=== PATIENT | female | born 1940 | race Caucasian/White ===

== ENCOUNTER → 2017-07-11 | Outpatient (CLI) | payer OTHER ==
[~2017-07-11] MED LIST: AMR2 PO; ASCA500 PO; ASPEC325 PO; BTH25 PO; CALCTAB5 PO; CHOL100010 PO; CLC100 PO; CPR500 PO; CRDCD120 PO; CTP1 PO; CYAN10005 PO; CZR50 PO; FLX10 PO; HYD50 PO; LEVO100T84 PO; LSX20 PO; METO100T14 PO; NITR1CAP33 PO; OMEG10007 PO; OSTEO BI FLEX PO; OXYC-57 PO; POLY150C PO; PRLSR20 PO; SIMV40TA2 PO; VTMEUNK PO; [UNRECOGNIZED DRUG - OTHER] PO
--- NOTE | 2017-07-11 17:14 | DIAGNOSTIC IMAGING REPORT ---
MRCP CLINICAL HISTORY: 77 years-old Female presenting with ELEVATED LFT, no abdominal pain or other symptoms. TECHNIQUE: Multisequence, multiplanar MR imaging of the abdomen was performed without the use of intravenous contrast. IV contrast: None. COMPARISON: None. FINDINGS: Localizer images: Posterior lumbar fusion hardware. Lung bases: Lungs and pleural spaces clear. Normal heart size. No pericardial or pleural effusion. Liver: Mildly enlarged, measuring 18.5 cm in maximal sagittal dimension. Mildly nodular contour. No liver lesion. Patent hepatic vasculature. Biliary: No intrahepatic or extrahepatic biliary ductal dilatation. Dedicated MRCP sequences are degraded by motion artifact. This limits evaluation. Gallbladder contains gallstones. Pancreas: Normal. Spleen: Top normal size. Adrenal glands: Normal. Kidneys and ureters: Several T2 hyperintense well-defined parapelvic and parenchymal cysts noted bilaterally. No hydronephrosis. Bowel: Moderate hiatal hernia. No bowel obstruction. Peritoneal cavity: No free fluid. Lymph nodes: No enlarged lymph nodes in the abdomen. Vasculature: Aorta and IVC patent and normal in caliber. Abdominal wall: Normal. Musculoskeletal: Normal. IMPRESSION: 1. Cholelithiasis. No biliary ductal dilatation or evidence of cholecystitis. 2. Mild hepatomegaly. Subtle evidence of nodularity of the liver contour. This raises concern for underlying fibrosis. Dedicated contrast-enhanced liver MR to be considered on a nonurgent basis. 3. Moderate hiatal hernia. Electronically signed by: Soren Watson M.D. 07/11/2017 5:12 PM Dictated Date/Time: 07/11/2017 5:07 PM
== END | disposition home or self-care (01) ==
LOC: C.MRI 15:41
PROVIDERS: ATTEND Registered Nurse
DX: K80.20 Calculus of gallbladder without cholecystitis without obstruction (principal); R74.8 Abnormal levels of other serum enzymes

== ENCOUNTER 2019-11-23 07:47 | Observation (INO) ==
[2019-11-23] MEDS ORDERED: ONDANSETRON INJ 2 MG/ML 2 ML VIAL IV PRN (10:55)
[2019-11-23] MEDS ORDERED: ACETAMINOPHEN 325 MG TAB PO PRN (10:55)
[2019-11-23] MEDS ORDERED: METHOCARBAMOL 500 MG TABLET PO PRN (10:59)
[2019-11-23] MEDS ORDERED: TRAMADOL HCL 50 MG TABLET PO PRN (10:59)
--- NOTE | 2019-11-23 11:05 | History & Physical Report ---
Date of Service November 23, 2019 Assessment & Plan (1) Acute on chronic heart failure with normal ejection fraction: presented with dyspnea on exertion, no hypoxia, no dyspnea at rest unsure if weight is elevated as she does not weigh herself at home admits to chronic lower extremity edema CXR at [place] with pulmonary edema echo with normal EF, left atrium dilated, mild to moderate and elevated pulmonary pressures received Lasix 40mg IV at [place] ED Cr is elevated from baseline at 1.4 will repeat BMP in the morning, hold on further Lasix until renal function is known in the morning consult cardiology, she follows with Dr. Agudelo in the clinic daily weights, I/O, fluid restrict to 1500mL/day note that she normally takes Lasix 20mg daily, used to take 20mg BID but told by Dr. Will that it was too stressful to her kidneys (2) Stage 3b chronic kidney disease: Cr elevated at 1.4 here this afternoon noted that she got Lasix 40mg IV at [place] unsure that this represents MICHAEL, will repeat BMP in the morning she follows with Dr. Will, can consult nephrology if renal function worsens (3) Hypertension: elevated on admission, she admitted that she did not take medications this morning ordered Norvasc and Clonidine to start now will hold Losartan in the morning until BUN/Cr are checked (4) Pulmonary hypertension: PA pressures 50-60mmHg certainly could be causing right heart failure with lower extremity edema already on Norvasc (5) Dyspnea on exertion: due to acute on chronic HF should improve/resolve with diuresis (6) Aortic stenosis: only mild to moderate on echo, doubt that it is contributing to heart failure (7) CAD (coronary artery disease): no chest pain troponin is 0.016 EKG with chronic RBBB and 1st degree AV block (8) RBBB: (9) Chronic hyponatremia: (10) Diabetes mellitus type 2 with complications: diabetic diet, Novolog SS monitor for hypoglycemia (11) First degree AV block: Admission and Anticipated Discharge Date Admission Date: November 23, 2019 History of Present Illness Chief Complaint: I could not walk I was so short of breath Primary Care Provider: Agatha Alfaro DO 79 yo female with history of hypertension, CAD, mild aortic stenosis, chronic heart failure with preserved ejection fraction who went to the ED at [facility] due to two weeks of dyspnea on exertion that was getting worse. She says she has no history of these symptoms. She said that she was having difficulty walking to her car at first, she would have to take a few minutes to catch her breath. She then noticed dyspnea walking from room to room and some dyspnea with activities of daily living. She denies any dyspnea at rest, denies orthopnea or nocturnal dyspnea. She has not had any chest pain. Her legs have some edema chronically, she thinks that maybe they are more swollen. Again, activity made her breathing better and resting made it better. No chest pain or pressure, no palpitations. She follows with Dr. Alfaro as her PCP and Dr. Agudelo for cardiology and she has seen Dr. Will for some CKD stage III. Her Lasix was increased to 20mg twice a day in the early summer but she was then told to cut back to 20mg daily because it may strain her kidney function. She noticed that the evening dose of Lasix never produced much urine. She say she does not follow a fluid restriction at home, in fact, family members tell her she needs to drink more. She does not weigh herself at all at home so unsure if weight has changed. Echo in August 2019 showed EF of 55-60% and mild aortic stenosis. In the ED at [place] she had pulmonary edema on CXR, was given Lasix 40mg IV x 1. She is already making a lot of urine and breathing better. Allergies Allergy/AdvReac Type Severity Reaction Status Date / Time Bactrim Allergy Unknown UNK Verified 08/17/17 06:50 sulfamethoxazole Allergy Unknown UNK Verified 11/21/19 08:19 trimethoprim Allergy Unknown UNK Verified 11/21/19 08:19 lisinopril AdvReac Unknown ELEVATED Verified 11/21/19 08:19 POTASSIUM pregabalin AdvReac Unknown PAIN IN Verified 11/21/19 08:19 ARMS Home Medications Home Medications Medication Instructions Recorded Confirmed Type Azo Cranberry 500 mg PO DAILY 05/29/18 11/21/19 History Calcium 600 + D(3) 1 cap PO DAILY 05/29/18 11/21/19 History [place]-3 Fish Oil 1 cap PO DAILY 05/29/18 11/21/19 History cholecalciferol (vitamin D3) 1,000 unit PO DAILY 05/29/18 11/21/19 History [Vitamin D3] vitamin E 1,000 unit PO DAILY 05/29/18 11/21/19 History cyanocobalamin (vitamin B-12) 1,000 mcg PO DAILY #90 tab 10/21/18 11/21/19 Rx 1,000 mcg tablet magnesium oxide 400 mg PO DAILY #30 tab 10/21/18 11/21/19 Rx tamsulosin 0.4 mg capsule 0.4 mg PO DAILY #90 cap 10/21/18 11/21/19 Rx metronidazole 0.75 % topical cream 1 appln TOP BID #45 gm 11/08/18 11/21/19 Rx triamcinolone acetonide 0.1 % 1 appln TOP BID #30 gm 01/14/19 11/21/19 Rx topical cream imipramine HCl 25 mg tablet 25 mg PO HS #30 tab 05/29/19 11/21/19 Rx clopidogrel 75 mg tablet 75 mg PO DAILY #90 tab 06/17/19 11/21/19 Rx ferrous sulfate 325 mg (65 mg 325 mg PO BID #240 tab 07/01/19 11/21/19 Rx iron) tablet losartan 50 mg tablet 50 mg PO DAILY #90 tab 08/01/19 11/21/19 Rx clonidine HCl 0.3 mg tablet 0.3 mg PO TID #270 tab 08/13/19 11/21/19 Rx amlodipine 10 mg tablet 10 mg PO DAILY #90 tab 08/15/19 11/21/19 Rx lancets 33 gauge #100 ea 09/05/19 11/21/19 Rx atorvastatin 10 mg tablet 10 mg PO HS #90 tab 09/11/19 11/21/19 Rx levothyroxine 112 mcg tablet 112 mcg PO DAILY #90 tab 09/23/19 11/21/19 Rx blood sugar diagnostic #100 ea 10/09/19 11/21/19 Rx glipizide 5 mg tablet 5 mg PO DAILY #90 tab 10/10/19 11/21/19 Rx furosemide 20 mg tablet 20 mg PO BID #60 tab 10/20/19 11/21/19 Rx methocarbamol 500 mg tablet 500 mg PO TID PRN #30 tab 10/20/19 11/21/19 Rx omeprazole 20 mg capsule,delayed 20 mg PO DAILY #90 cap 10/28/19 11/21/19 Rx release gabapentin 100 mg capsule See Rx Instructions .ROUTE 11/03/19 11/21/19 Rx .COMPLEX #210 cap linagliptin 5 mg tablet 5 mg PO DAILY #90 tab 11/14/19 11/21/19 Rx escitalopram oxalate 10 mg tablet 10 mg PO DAILY #30 tab 11/18/19 11/21/19 Rx tramadol 50 mg tablet 50 mg PO BID PRN #60 tab 11/20/19 11/21/19 Rx betamethasone valerate 0.1 % lotion 1 applic TOPICAL TID PRN #60 ml 11/21/19 11/21/19 Rx Past Med/Surg History Medical History Anemia Anxiety Aortic stenosis 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 no deficits. 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 History of bladder suspension procedure History of colonoscopy History of esophagogastroduodenoscopy (EGD) S/P carpal tunnel release bilateral S/P hysterectomy ANDRIA S/P knee replacement bilateral S/P trigger finger release Status post THR (total hip replacement) (12/2012) pt denies Family History Father Hypertension Heart disease Myocardial infarction Alcohol abuse Sister Diabetes Pancreatic cancer Breast cancer Brother Stroke Diabetes Alcohol abuse Other Cancer Denies family history of Ovarian cancer Prostate cancer Colorectal cancer Social History Smoking Status: Former smoker Second Hand Exposure: No; Hx Alcohol Use: No Hx Substance Use: No Preferred Language: Setswana Communication Ability: Effective Visual Impairment: No Limitations Hearing Ability: Normal Adult Remedial Education Instructor Required: No Beliefs That Will Affect Care: None marital status: / Current Living Situation: Alone current occupational status: retired Feels Safe at Home: Yes Safety Concerns: Feels Safe At This Time Childhood Exposure to Second-Hand Smoke: No caffeine: Yes (Coffee x 2 cups per day.) during the past year weight has: remained stable Dental Care, Regularly: No Physical Activity Frequency: Does not Exercise Seatbelt Use: always Sunscreen Use: Yes Review of Systems Review of Systems: All systems reviewed & are unremarkable except as noted in Subjective Physical Exam Constitutional: well developed, well nourished and comfortable; no acute distress Eyes: PERRL, conjunctivae normal, anicteric sclerae ENMT: external ear and nose normal, oropharynx normal Neck: trachea midline, no thyromegaly Respiratory: normal respiratory effort; no respiratory distress, no labored breathing and no cough Auscultation: + rales (bases); no crackles, no rhonchi and no wheezes Cardiovascular: Rate/Rhythm: regular rate and regular rhythm Heart Sounds: normal S1 and normal S2; no murmur Vessels: no JVD Extremities: normal capillary refill and + edema (shins, pitting, bilaterally) Gastrointestinal (Abdomen): normal bowel sounds, soft, nontender, no hepatosplenomegaly Musculoskeletal: no cyanosis or clubbing, extremities motor strength 5/5 Skin: no rashes, warm and dry Neurologic: patellar DTR's 2+ bilat, sensation intact and PERRL, EOMI, accommodation nl, no face palsy, no dysarthria Psychiatric: A+Ox3, euthymic affect Lymphatic: no cervical or axillary lymphadenopathy Results & Data Results & Data ([facility]) Vital Signs (Past 12 Hours) Vital Signs Temp Resp BP Pulse Ox 11/23/19 10:32 36.7 C 18 172/75 H 94 Laboratory Results Laboratory Results - last 24 hr 11/23/19 11/23/19 11/23/19 11:45 14:32 14:32 WBC 5.79 RBC 3.16 L Hgb 9.2 L Hct 28.6 L MCV 90.5 MCH 29.1 MCHC 32.2 RDW Std Deviation 42.6 RDW Coeff of Irasema 12.9 Plt Count 253 MPV 9.1 Sodium 132 L Potassium 4.7 Chloride 98 Carbon Dioxide 27 Anion Gap 7.0 BUN 36 H Creatinine 1.49 H Est Cr Clr Drug Dosing Not Reportable Est GFR ( Amer) 37.8 Est GFR (Non-Af Amer) 32.6 BUN/Creatinine Ratio 23.8 H Glucose 151 H POC Glucose 173 H Calcium 8.7 Troponin I 0.016 11/23/19 11/23/19 16:05 20:28 WBC RBC Hgb Hct MCV MCH MCHC RDW Std Deviation RDW Coeff of Irasema Plt Count MPV Sodium Potassium Chloride Carbon Dioxide Anion Gap BUN Creatinine Est Cr Clr Drug Dosing Est GFR ( Amer) Est GFR (Non-Af Amer) BUN/Creatinine Ratio Glucose POC Glucose 158 H 147 H Calcium Troponin I ECG Indication: SOB/dyspnea Rhythm: normal sinus Findings: + 1st degree AV block and + RBBB Code Status & VTE Plan VTE Prophylaxis Plan VTE Prophylaxis will be ordered: Yes PG Care Time/CCT Total # of Minutes Spent Total Time Spent with Patient: Total time spent is greater than 50% in coordination of care (as documented) at patient's floor/unit and/or counseling patient: Coding Level of Care Code 39211 Initial Inpt Care Lvl 3 Diagnoses Acute on chronic heart failure with normal ejection fraction I50.33 Stage 3b chronic kidney disease N18.3 Hypertension I10 Pulmonary hypertension I27.20 Dyspnea on exertion R06.00 Aortic stenosis I35.0 CAD (coronary artery disease) I25.10 RBBB I45.10 Chronic hyponatremia E87.1 Diabetes mellitus type 2 with complications E11.8 First degree AV block I44.0
[2019-11-23] MEDS: GABAPENTIN 100 MG CAP PO SCH ×2 (12:32→17:52)
[2019-11-23] MEDS ORDERED: AMLODIPINE BESYLATE 5 MG TAB PO ONE (13:24)
[2019-11-23] MEDS ORDERED: CLOPIDOGREL BISULFATE 75 MG TAB PO ONE (13:24)
[2019-11-23] MEDS ORDERED: Nursing to Pharmacy Communication SCH (13:45)
[2019-11-23] MEDS: cloNIDine HCL 0.3 MG TAB PO SCH ×2 (13:53→20:42)
[2019-11-23] MEDS: HEPARIN SOD 5,000 UNIT/0.5 ML VIAL SQ SCH ×2 (13:54→20:43)
[2019-11-23 14:50] LABS: Hematocrit (blood only) 28.6 % (37-47); Hemoglobin 9.2 g/dL (12.0-16.0); Mean Corpuscular Hemoglobin 29.1 pg (25-34); Mean Corpuscular Hgb Conc 32.2 g/dL (32-36); Mean Corpuscular Volume 90.5 fL (80-100); Mean Platelet Volume 9.1 fL (7.4-10.4); Platelet Count 253 K/uL (130-400); RDW Coefficient of Variation 12.9 % (11.5-14.5); RDW Standard Deviation 42.6 fL (36.4-46.3); Red Blood Count 3.16 M/uL (4.2-5.4); White Blood Count 5.79 K/uL (4.8-10.8)
[2019-11-23 15:16] LABS: BUN Creatinine Ratio 23.8 (10-20); Blood Urea Nitrogen 36 mg/dl (7-18); Calcium 8.7 mg/dl (8.5-10.1); Carbon Dioxide 27 mmol/L (21-32); Chloride 98 mmol/L (98-107); Est GFR (African American) 37.8; Est GFR (Non-African American) 32.6; Glucose 151 mg/dl (70-99); Potassium 4.7 mmol/L (3.5-5.1); Sodium 132 mmol/L (136-145)
[2019-11-23 15:20] LABS: Troponin I 0.016 ng/ml (0-0.045)
[2019-11-23] MEDS: INSULIN ASPART 100 UNITS/ML 3 ML PEN SC SCH ×2 (16:50→20:43)
--- NOTE | 2019-11-23 20:00 | XCELERA ---
[id number]
--- NOTE | 2019-11-23 20:01 | Electrocardiogram Report ---
Test Reason : Blood Pressure : / mmHG Vent. Rate : 087 BPM Atrial Rate : 087 BPM P-R Int : 286 ms QRS Dur : 124 ms QT Int : 402 ms P-R-T Axes : 050 -10 014 degrees QTc Int : 483 ms Sinus rhythm with 1st degree A-V block Right bundle branch block Abnormal ECG When compared with ECG of 29-MAY-2018 12:01, Sinus rhythm is no longer with 2nd degree A-V block (Mobitz I) Vent. rate has increased BY [address] now depressed in Anterior leads T wave inversion now evident in Anterior leads QT has lengthened Confirmed by Ronald Moura ([id number]) on 11/23/2019 8:01:05 PM Referred By: Isacc Perez Confirmed By:Chris Moura
[2019-11-23] MEDS ORDERED: GABAPENTIN 100 MG CAP PO SCH (21:00)
[2019-11-23] MEDS ORDERED: ATORVASTATIN 10 MG TAB PO SCH (21:00)
[2019-11-23] MEDS ORDERED: IMIPRAMINE HCL 25 MG TAB PO SCH (21:00)
[2019-11-24 06:09] LABS: Hematocrit (blood only) 23.2 % (37-47); Hemoglobin 7.7 g/dL (12.0-16.0); Mean Corpuscular Hgb Conc 33.2 g/dL (32-36); Mean Corpuscular Volume 90.3 fL (80-100); Mean Platelet Volume 9.2 fL (7.4-10.4); Platelet Count 167 K/uL (130-400); RDW Standard Deviation 42.8 fL (36.4-46.3); Red Blood Count 2.57 M/uL (4.2-5.4); White Blood Count 3.21 K/uL (4.8-10.8)
[2019-11-24] MEDS: HEPARIN SOD 5,000 UNIT/0.5 ML VIAL SQ SCH ×2 (06:10→13:17)
[2019-11-24] MEDS ORDERED: LEVOTHYROXINE SODIUM 112 MCG TABLET PO SCH (06:30)
[2019-11-24 06:41] LABS: Blood Urea Nitrogen 37 mg/dl (7-18); Calcium 8.1 mg/dl (8.5-10.1); Carbon Dioxide 25 mmol/L (21-32); Chloride 101 mmol/L (98-107); Est GFR (African American) 41.5; Est GFR (Non-African American) 35.8; Glucose 126 mg/dl (70-99); Potassium 4.4 mmol/L (3.5-5.1); Sodium 134 mmol/L (136-145)
[2019-11-24] MEDS: INSULIN ASPART 100 UNITS/ML 3 ML PEN SC SCH ×3 (08:39→16:52)
[2019-11-24] MEDS: GABAPENTIN 100 MG CAP PO SCH ×2 (08:41→13:17)
[2019-11-24] MEDS: cloNIDine HCL 0.3 MG TAB PO SCH ×2 (08:42→13:17)
[2019-11-24] MEDS ORDERED: LOSARTAN POTASSIUM 50 MG TAB PO SCH (09:00)
[2019-11-24] MEDS ORDERED: ESCITALOPRAM OXALATE 10 MG TAB PO SCH (09:00)
[2019-11-24] MEDS ORDERED: AMLODIPINE BESYLATE 5 MG TAB PO SCH (09:00)
[2019-11-24] MEDS ORDERED: TAMSULOSIN HCL 0.4 MG CAP PO SCH (09:00)
[2019-11-24] MEDS ORDERED: CLOPIDOGREL BISULFATE 75 MG TAB PO SCH (09:00)
--- NOTE | 2019-11-24 09:36 | Hospitalist Progress Note ---
Date of Service November 24, 2019 Assessment & Plan (1) Acute on chronic heart failure with normal ejection fraction: presented with dyspnea on exertion, no hypoxia, no dyspnea at rest unsure if weight is elevated as she does not weigh herself at home admits to chronic lower extremity edema CXR at [place] with pulmonary edema echo with normal EF, left atrium dilated, mild to moderate and elevated pulmonary pressures received Lasix 40mg IV at [place] ED consult cardiology, she follows with Dr. Agudelo in the clinic note that she normally takes Lasix 20mg daily, used to take 20mg BID but told by Dr. Will that it was too stressful to her kidneys (2) Stage 3b chronic kidney disease: Cr elevated at 1.4 here this afternoon noted that she got Lasix 40mg IV at [place] (3) Hypertension: elevated on admission, she admitted that she did not take medications this morning Norvasc and Clonidine hold Losartan (4) Pulmonary hypertension: PA pressures 50-60mmHg certainly could be causing right heart failure with lower extremity edema already on Norvasc (5) Dyspnea on exertion: due to acute on chronic HF should improve/resolve with diuresis (6) Aortic stenosis: only mild to moderate on echo (7) CAD (coronary artery disease): no chest pain troponin is 0.016 EKG with chronic RBBB and 1st degree AV block (8) RBBB: (9) Chronic hyponatremia: (10) Diabetes mellitus type 2 with complications: diabetic diet, Novolog SS monitor for hypoglycemia (11) First degree AV block: Admission and Anticipated Discharge Date Admission Date: November 23, 2019 Results & Data Results & Data ([facility]) Vital Signs (Past 12 Hours) Vital Signs Temp Pulse Pulse Resp BP Pulse Ox 11/24/19 07:54 65 11/24/19 07:38 97.7 F 61 18 156/73 H 96 11/24/19 05:04 56 L 11/24/19 03:36 97.7 F 56 L 18 144/66 H 98 11/24/19 00:06 97.9 F 60 18 146/67 H 96 PG Care Time/CCT Total # of Minutes Spent Total Time Spent with Patient: Total time spent is greater than 50% in coordination of care (as documented) at patient's floor/unit and/or counseling patient: Coding Diagnoses Acute on chronic heart failure with normal ejection fraction I50.33 Stage 3b chronic kidney disease N18.3 Hypertension I10 Pulmonary hypertension I27.20 Dyspnea on exertion R06.00 Aortic stenosis I35.0 CAD (coronary artery disease) I25.10 RBBB I45.10 Chronic hyponatremia E87.1 Diabetes mellitus type 2 with complications E11.8 First degree AV block I44.0
[2019-11-24] MEDS ORDERED: MICONAZOLE NITRATE POWDER 43 GM EXT PRN (10:00)
[2019-11-24] MEDS ORDERED: PANTOprazole 40 MG TAB PO SCH (10:00)
--- NOTE | 2019-11-24 10:22 | Cardiology Consultation ---
Date of Consultation November 24, 2019 Assessment & Plan (1) Dyspnea on exertion: I suspect her dyspnea on exertion is multifactorial. It is consistent with some degree of fluid overload, in part related to chronic kidney disease and probably leading to increased pulmonary pressures with a contribution of mitral stenosis and anemia. She does not have left-ventricular hypertrophy and she has a hyperdynamic left ventricle so I suspect aortic stenosis is not an issue. I suspect diastolic dysfunction is not a major problem either. I would agree with diuresis, we are going to run into issues of decreased cardiac output and likely worsening kidney function and it will therefore be a c ompromise with her renal function and her volume status. I do not know that she would derive a lot of benefit from valve replacement, and if the mitral valve is the primary problem (as opposed aortic stenosis) then this is a major operation. I would see how she does clinically to see if we can compromise between renal insufficiency and symptoms. (2) CAD (coronary artery disease): She has coronary disease but no evidence of ischemia based on enzymes and electrocardiography. I would not pursue further. (3) Aortic stenosis: She has some degree of aortic stenosis however it is not significant enough that it has affected cardiac function (either left ventricular hypertrophy or left ventricular function) therefore I doubt it is a significant cause of her symptoms. (4) Mitral stenosis and incompetence: She does have mitral stenosis and mitral regurgitation, her mean mitral valve gradient is 9 mmHg and her peak mitral gradient is 27 mmHg. This will certainly contribute to pulmonary hypertension and likely is contributory to her symptoms of dyspnea on exertion. (5) Pulmonary hypertension: She has significant pulmonary hypertension, measured as 50 to 60 mmHg. This is in part due to fluid retention, however her mitral stenosis as well as her mitral regurgitation are probably contributory. (6) CKD (chronic kidney disease): She has longstanding kidney disease, I suspect made worse by valvular heart disease. (7) Anemia: She has significant anemia, enouph that it can be contributory to her presentation. Her Hgb has dropped substantially since yesterday, unless it is in error. History of Present Illness Reason for Consultation: Dyspnea on exertion, mitral and aortic valvular heart disease Attending Physician: Chris West MD History of Present Illness This is an 79-year-old woman who has a history of hypertension, hypercholesterolemia, diabetes mellitus as well as coronary artery disease identified at catheterization in 2008. At that time she had nonobstructive disease. More recently she had a Lexiscan stress test in April 2017 which was negative for ischemia. She also has a history of a lacunar CVA in 2019, she also has a history of mild aortic stenosis and Mobitz 1 second-degree AV block. She presents now with progressive dyspnea on exertion. Repeat echocardiography done on November 23, 2019 shows mild to moderate aortic stenosis with a maximum aortic gradient of 32 mmHg. Left ventricular function was normal at 65 to 70%, there was normal wall thickness and left ventricle was normal in size. She also had mild mitral regurgitation and moderate mitral stenosis. The mean mitral valve gradient was 9 mmHg with a maximum 27 mmHg. Troponins were negative, the electrocardiogram did not show any acute changes. She is quite anemic with a falling hemoglobin, 7.7 today. Kidney function has been abnormal in the past with a creatinine of up to 1.5 in March of this year, her creatinine was just over 1 on October 01, 2019 and November 04, 2019 however is elevated this admission as well to 1.38 today. Since presentation she has been diuresed, she feels much better today and notes that her leg swelling is improved. No cardiac symptoms today. Allergies Allergy/AdvReac Type Severity Reaction Status Date / Time Bactrim Allergy Unknown UNK Verified 08/17/17 06:50 sulfamethoxazole Allergy Unknown UNK Verified 11/21/19 08:19 trimethoprim Allergy Unknown UNK Verified 11/21/19 08:19 lisinopril AdvReac Unknown ELEVATED Verified 11/21/19 08:19 POTASSIUM pregabalin AdvReac Unknown PAIN IN Verified 11/21/19 08:19 ARMS Home Medications Home Medications Medication Instructions Recorded Confirmed Type Azo Cranberry 500 mg PO DAILY 05/29/18 11/21/19 History Calcium 600 + D(3) 1 cap PO DAILY 05/29/18 11/21/19 History [place]-3 Fish Oil 1 cap PO DAILY 05/29/18 11/21/19 History cholecalciferol (vitamin D3) 1,000 unit PO DAILY 05/29/18 11/21/19 History [Vitamin D3] vitamin E 1,000 unit PO DAILY 05/29/18 11/21/19 History cyanocobalamin (vitamin B-12) 1,000 mcg PO DAILY #90 tab 10/21/18 11/21/19 Rx 1,000 mcg tablet magnesium oxide 400 mg PO DAILY #30 tab 10/21/18 11/21/19 Rx tamsulosin 0.4 mg capsule 0.4 mg PO DAILY #90 cap 10/21/18 11/21/19 Rx metronidazole 0.75 % topical cream 1 appln TOP BID #45 gm 11/08/18 11/21/19 Rx triamcinolone acetonide 0.1 % 1 appln TOP BID #30 gm 01/14/19 11/21/19 Rx topical cream imipramine HCl 25 mg tablet 25 mg PO HS #30 tab 05/29/19 11/21/19 Rx clopidogrel 75 mg tablet 75 mg PO DAILY #90 tab 06/17/19 11/21/19 Rx ferrous sulfate 325 mg (65 mg 325 mg PO BID #240 tab 07/01/19 11/21/19 Rx iron) tablet losartan 50 mg tablet 50 mg PO DAILY #90 tab 08/01/19 11/21/19 Rx clonidine HCl 0.3 mg tablet 0.3 mg PO TID #270 tab 08/13/19 11/21/19 Rx amlodipine 10 mg tablet 10 mg PO DAILY #90 tab 08/15/19 11/21/19 Rx lancets 33 gauge #100 ea 09/05/19 11/21/19 Rx atorvastatin 10 mg tablet 10 mg PO HS #90 tab 09/11/19 11/21/19 Rx levothyroxine 112 mcg tablet 112 mcg PO DAILY #90 tab 09/23/19 11/21/19 Rx blood sugar diagnostic #100 ea 10/09/19 11/21/19 Rx glipizide 5 mg tablet 5 mg PO DAILY #90 tab 10/10/19 11/21/19 Rx furosemide 20 mg tablet 20 mg PO BID #60 tab 10/20/19 11/21/19 Rx methocarbamol 500 mg tablet 500 mg PO TID PRN #30 tab 10/20/19 11/21/19 Rx omeprazole 20 mg capsule,delayed 20 mg PO DAILY #90 cap 10/28/19 11/21/19 Rx release gabapentin 100 mg capsule See Rx Instructions .ROUTE 11/03/19 11/21/19 Rx .COMPLEX #210 cap linagliptin 5 mg tablet 5 mg PO DAILY #90 tab 11/14/19 11/21/19 Rx escitalopram oxalate 10 mg tablet 10 mg PO DAILY #30 tab 11/18/19 11/21/19 Rx tramadol 50 mg tablet 50 mg PO BID PRN #60 tab 11/20/19 11/21/19 Rx betamethasone valerate 0.1 % lotion 1 applic TOPICAL TID PRN #60 ml 11/21/19 11/21/19 Rx Patient History Medical History Anemia Anxiety Aortic stenosis 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 no deficits. 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 History of bladder suspension procedure History of colonoscopy History of esophagogastroduodenoscopy (EGD) S/P carpal tunnel release bilateral S/P hysterectomy ANDRIA S/P knee replacement bilateral S/P trigger finger release Status post THR (total hip replacement) (12/2012) pt denies Family History Father Hypertension Heart disease Myocardial infarction Alcohol abuse Sister Diabetes Pancreatic cancer Breast cancer Brother Stroke Diabetes Alcohol abuse Other Cancer Denies family history of Ovarian cancer Prostate cancer Colorectal cancer Social History Smoking Status: Former smoker Second Hand Exposure: No; Hx Alcohol Use: No Hx Substance Use: No Preferred Language: Estonian Communication Ability: Effective Visual Impairment: No Limitations Hearing Ability: Normal Coding Compliance Auditor Required: No Beliefs That Will Affect Care: None marital status: / Current Living Situation: Alone current occupational status: retired Feels Safe at Home: Yes Safety Concerns: Feels Safe At This Time Childhood Exposure to Second-Hand Smoke: No caffeine: Yes (Coffee x 2 cups per day.) during the past year weight has: remained stable Dental Care, Regularly: No Physical Activity Frequency: Does not Exercise Seatbelt Use: always Sunscreen Use: Yes Assistive Devices: Denture - Upper, Denture - Lower, Glasses and Walker Review of Systems Review of Systems: All systems reviewed & are unremarkable except as noted in HPI & below Results & Data ([facility]) Vital Signs (Past 12 Hours) Vital Signs Temp Pulse Pulse Resp BP Pulse Ox 11/24/19 07:54 65 11/24/19 07:38 36.5 C 61 18 156/73 H 96 11/24/19 05:04 56 L 11/24/19 03:36 36.5 C 56 L 18 144/66 H 98 11/24/19 00:06 36.6 C 60 18 146/67 H 96 Laboratory Results Cardiac Enzymes 11/23/19 Range/Units 14:32 Troponin I 0.016 (0-0.045) ng/ml CBC 11/23/19 11/24/19 Range/Units 14:32 05:25 WBC 5.79 3.21 L (4.8-10.8) K/uL RBC 3.16 L 2.57 L (4.2-5.4) M/uL Hgb 9.2 L 7.7 L (12.0-16.0) g/dL Hct 28.6 L 23.2 L (37-47) % Plt Count 253 167 (130-400) K/uL Comprehensive Metabolic Panel 11/23/19 11/24/19 Range/Units 14:32 05:25 Sodium 132 L 134 L (136-145) mmol/L Potassium 4.7 4.4 (3.5-5.1) mmol/L Chloride 98 101 (98-107) mmol/L Carbon Dioxide 27 25 (21-32) mmol/L BUN 36 H 37 H (7-18) mg/dl Creatinine 1.49 H 1.38 H (0.6-1.2) mg/dl Glucose 151 H 126 H (70-99) mg/dl Calcium 8.7 8.1 L (8.5-10.1) mg/dl Intake and Output 11/23/19 11/24/19 11/24/19 22:59 06:59 14:59 Intake Total 600 / 1475 600 / 1475 Output Total 700 / 3300 1000 / 3300 400 / 400 Balance -100 / -1825 -400 / -1825 -400 / -400 Intake: Oral 600 / 1475 600 / 1475 Output: Urine 700 / 3300 1000 / 3300 400 / 400 Other: Weight 84 kg Diagnostic Findings An electrocardiogram done November 23, 2019 shows sinus rhythm with first- degree AV block (VT interval 286 ms) and right bundle branch block with a normal QRS axis Telemetry: SR and sinus tachycardia, first degree AV block, PVCs and rare blocked PACs PG Care Time/CCT Total # of Minutes Spent Total Time Spent with Patient: Total time spent is greater than 50% in coordination of care (as documented) at patient's floor/unit and/or counseling patient: Coding Level of Care Code 89314 Initial Inpt Care Lvl 3 Diagnoses Dyspnea on exertion R06.00 CAD (coronary artery disease) I25.10 Aortic stenosis I35.0 Mitral stenosis and incompetence I05.2 Pulmonary hypertension I27.20 CKD (chronic kidney disease) N18.9 Anemia D64.9
[2019-11-24] MEDS ORDERED: SODIUM CHLORIDE 0.9% 250 ML IV PRN (11:42)
[2019-11-24] MEDS ORDERED: FUROSEMIDE 20 MG in SYRINGE 0 ML IV ONE (12:00)
--- NOTE | 2019-11-24 17:07 | Discharge Summary ---
Date of Service November 24, 2019 Admission HPI Per Admitting Provider 79 yo female with history of hypertension, CAD, mild aortic stenosis, chronic heart failure with preserved ejection fraction who went to the ED at [facility] due to two weeks of dyspnea on exertion that was getting worse. She says she has no history of these symptoms. She said that she was having difficulty walking to her car at first, she would have to take a few minutes to catch her breath. She then noticed dyspnea walking from room to room and some dyspnea with activities of daily living. She denies any dyspnea at rest, denies orthopnea or nocturnal dyspnea. She has not had any chest pain. Her legs have some edema chronically, she thinks that maybe they are more swollen. Again, activity made her breathing better and resting made it better. No chest pain or pressure, no palpitations. She follows with Dr. Alfaro as her PCP and Dr. Agudelo for cardiology and she has seen Dr. Will for some CKD stage III. Her Lasix was increased to 20mg twice a day in the early summer but she was then told to cut back to 20mg daily because it may strain her kidney function. She noticed that the evening dose of Lasix never produced much urine. She say she does not follow a fluid restriction at home, in fact, family members tell her she needs to drink more. She does not weigh herself at all at home so unsure if weight has changed. Echo in August 2019 showed EF of 55-60% and mild aortic stenosis. In the ED at [place] she had pulmonary edema on CXR, was given Lasix 40mg IV x 1. She is already making a lot of urine and breathing better. Principal Diagnosis Shortness of breath secondary pulmonary pretension Anemia possibly anemia of chronic disease Discharge Exam The patient appeared well Vital signs as documented. Lungs are clear to auscultation and appear unlabored her lungs were listened to after transfusion continue to be negative for changes Cardiac exam, Rhythm is regular.. Systolic ejection murmur is heard Abdominal exam reveals normal bowel sounds, soft non tender, no masses Extremities are mildly edematous and both pedal pulses are normal. Neurologic exam is alert and oriented, no focal loss of strength or sensation Skin is without bruises or rashes Psychologically is without concerns for anxiety or depression. Discharge Data Allergies Allergy/AdvReac Type Severity Reaction Status Date / Time Bactrim Allergy Unknown UNK Verified 08/17/17 06:50 sulfamethoxazole Allergy Unknown UNK Verified 11/21/19 08:19 trimethoprim Allergy Unknown UNK Verified 11/21/19 08:19 lisinopril AdvReac Unknown ELEVATED Verified 11/21/19 08:19 POTASSIUM pregabalin AdvReac Unknown PAIN IN Verified 11/21/19 08:19 ARMS Consultations 11/23/19 10:57 Consult Case Management - Discharge Planning Routine 11/23/19 22:23 Consult Cardiology Routine Hospital Course (1) Acute on chronic heart failure with normal ejection fraction: presented with dyspnea on exertion, no hypoxia, no dyspnea at rest echo with normal EF, left atrium dilated, mild to moderate and elevated pulmonary pressures consistent with pulmonary hypertension consult cardiology, she follows with Dr. Agudelo in the clinic feel diuretics should be utilized for pulmonary hypertension does not feel her valvular heart disease is a significant role in her symptoms Will be discharged on Lasix 40 mg a day holding losartan enrolling her in outpatient heart failure surveillance with [facility], I personally called [facility] to enroll her in this program (2) Stage 3b chronic kidney disease: Will need outpatient surveillance given the fact that she will be on daily Lasix however holding ARB at this time as her ejection fraction is preserved (3) Hypertension: Norvasc and Clonidine hold Losartan (4) Pulmonary hypertension: PA pressures 50-60mmHg certainly could be causing right heart failure with lower extremity edema adding daily diuretics (5) Dyspnea on exertion: due to acute on chronic diastolic HF Manage his volume status surveillance (6) Aortic stenosis: only mild to moderate on echo, cardiology does not feel plays a significant role in her symptoms (7) CAD (coronary artery disease): no chest pain troponin is 0.016 EKG with chronic RBBB and 1st degree AV block (8) RBBB: (9) Chronic hyponatremia: (10) Diabetes mellitus type 2 with complications: diabetic diet, Novolog SS monitor for hypoglycemia, did hold losartan at time of discharge may benefit from re-adding this medication but will need to see how her renal function response to diuretics at this point time (11) First degree AV block: Total Time Total Time Spent Total Time Spent (In Minutes): It required greater than 30 minutes to prepare this patient for discharge Discharge Plan Discharge Items Patient Disposition: Home - Home Health Services Reason For Visit: ACUTE HEART FAILURE Discharge Diagnosis: pulmonary hypertension shortness of breath Activity: Per Instructions section Activity Comment: slowly increase activity Non-emergency contact: Primary Care Provider and Supervisor [employer] Call non-emergency contact if: your symptoms worsen Follow-up/Referrals: Agatha Alfaro DO [Primary Care Provider] - Diet: Low Sodium (2gm) Addtl Attending Provider Instructions: Call 911 and go to the Emergency Room if: * You have tightness or pain in your chest that does not go away with rest or Nitroglycerin * You are very short of breath even with rest Call your doctor if any of the following symptoms or problems start or get worse: * Shortness of breath or difficulty breathing * Wake up at night short of breath * Chest pain * Cough * Swelling of your hands, fee, or legs * More fatigued or tired with your normal activity * Palpitations - sudden fast heart beats WEIGHT * Weigh yourself every morning after using the bathroom. * Use the same scale. * Wear the same amount of clothing. * Write your weight down on your chart. * Call your doctor if you gain more than 2-3 pounds in 1-2 days. MEDICATIONS * Use this discharge instruction sheet for instructions. * Take your medications at the time your doctor ordered. * Do not skip a dose of your medicines. * If you miss a dose of medicine, take as soon as possible, but DO NOT DOUBLE A DOSE. * Read your medicine information when you get home. * Know all of the side effects of your medicine. * Call your doctor's office if you have any side effects. * Be sure all of your doctors know what medicine and herbs you take (including cold, flu, and herbal medicine). * Pain Medicine: If you do not get relief from your pain, please call your doctor for help. Take the following with you to your follow-up doctor appointments: * Weight Chart * Medication List * List of questions Do not drink excessive alcohol, beer or wine. Pending Studies at Discharge: No Stand-Alone Forms: My dELiAs, Smoking Cessation Medications and DC Order Prescriptions: Continued triamcinolone acetonide 0.1 % cream 1 appln TOP BID Qty: 30 RF: 1 imipramine HCl 25 mg tablet 25 mg PO HS Qty: 30 RF: 2 clopidogrel 75 mg tablet 75 mg PO DAILY Qty: 90 RF: 1 ferrous sulfate 325 mg (65 mg iron) tablet 325 mg PO BID Qty: 240 RF: 1 amlodipine 10 mg tablet 10 mg PO DAILY Qty: 90 RF: 1 (DME) lancets [OneTouch Delica Lancets] 33 gauge misc See Dose Instructions .ROUTE .MEDSUPPLY Qty: 100 RF: 3 atorvastatin 10 mg tablet 10 mg PO HS Qty: 90 RF: 1 levothyroxine 112 mcg tablet 112 mcg PO DAILY Qty: 90 RF: 1 (DME) blood sugar diagnostic [Blood Glucose Test] Strip See Rx Instructions .ROUTE .MEDSUPPLY Qty: 100 RF: 5 methocarbamol 500 mg tablet 500 mg PO TID PRN (Reason: muscle spasm) Qty: 30 RF: 1 omeprazole 20 mg capsule,delayed release(DR/EC) 20 mg PO DAILY Qty: 90 RF: 3 gabapentin 100 mg capsule See Rx Instructions .ROUTE .COMPLEX Qty: 210 RF: 3 Tradjenta 5 mg tablet 5 mg PO DAILY Qty: 90 RF: 1 escitalopram oxalate [Lexapro] 10 mg tablet 10 mg PO DAILY Qty: 30 RF: 2 tramadol 50 mg tablet 50 mg PO BID PRN (Reason: pain) Qty: 60 RF: 0 magnesium oxide 400 mg magnesium tablet 400 mg PO DAILY Qty: 30 RF: 0 cyanocobalamin (vitamin B-12) [Vitamin B-12] 1,000 mcg tablet 1,000 mcg PO DAILY Qty: 90 RF: 0 tamsulosin [Flomax] 0.4 mg capsule 0.4 mg PO DAILY Qty: 90 RF: 0 metronidazole 0.75 % cream 1 appln TOP BID Qty: 45 RF: 0 betamethasone valerate 0.1 % lotion 1 applic topical TID PRN (Reason: skin irritation) Qty: 60 RF: 0 glipizide 5 mg tablet 5 mg PO DAILY Qty: 90 RF: 1 clonidine HCl 0.3 mg tablet 0.3 mg PO TID Qty: 270 RF: 1 vitamin E 1,000 unit Capsule 1,000 unit PO DAILY RF: 0 cholecalciferol (vitamin D3) [Vitamin D3] 1,000 unit Capsule 1,000 unit PO DAILY RF: 0 Calcium 600 + D(3) 600 mg calcium- 200 unit Capsule 1 cap PO DAILY RF: 0 [place]-3 Fish Oil 300-1,000 mg Capsule 1 cap PO DAILY RF: 0 Azo Cranberry 250 mg Tablet,Chewable 500 mg PO DAILY RF: 0 Changed furosemide 20 mg tablet 40 mg PO DAILY Qty: 60 RF: 5 Discontinued losartan 50 mg tablet 50 mg PO DAILY Qty: 90 RF: 1 Krames/Other Patient Handouts: Heart Failure Signs of Flare-Up, Heart Failure: Tracking Your Weight Admission Data Admit Date/Time: 11/23/19 10:28 Attending Provider: Chris West Admit Provider: Isacc Perez Primary Care Provider: Agatha Alfaro Other Providers: Andres Agudelo Other Interventions: Discharge Summary Assessment (RN) Last Done: 11/24/19 16:16 Coding Level of Care Code D/C Day Management >30 mins Diagnoses Acute on chronic heart failure with normal ejection fraction I50.33 Stage 3b chronic kidney disease N18.3 Hypertension I10 Pulmonary hypertension I27.20 Dyspnea on exertion R06.00 Aortic stenosis I35.0 CAD (coronary artery disease) I25.10 RBBB I45.10 Chronic hyponatremia E87.1 Diabetes mellitus type 2 with complications E11.8 First degree AV block I44.0
--- NOTE | 2019-11-25 08:23 | Communication Note ---
Date of Service: November 25, 2019 By CMS guidelines, a determination that the admission or continued stay is not medically necessary has been made by a member of the UR committee and a physician for this hospital stay, therefore a Code 44 will be completed and the Inpatient admission will be changed to outpatient. Davian Renteria MD
== END 2019-11-24 18:45 | disposition home or self-care (01) ==
LOC: 2S 10:28 → INTOOBSV 10:28 → SUATTDRO 10:28

== ENCOUNTER 2021-08-03 19:39 | Inpatient (IN) ==
--- NOTE | 2021-08-03 20:53 | CT Scan Report ---
HEAD CT NONCONTRAST CT DOSE: 810.83 mGy.cm HISTORY: weakness TECHNIQUE: Multiaxial CT images of the head were performed without the use of intravenous contrast. A utomated exposure control was utilized for this study. A dose lowering technique was utilized adheri ng to the principles of ALARA. Comparison: Head CT 11/12/2020. Findings: The paranasal sinuses and mastoid air cells are clear. The calvarium and skull base are int act. There is no mass, hematoma, midline shift, acute infarct. White matter hypodensity is nonspecifi c but suggestive of microvascular ischemic change. The ventricles and sulci demonstrate mild age-rela thad involutional changes. Old punctate lacunar infarcts seen within the left basal ganglia and right cerebellar hemisphere. Impression: No significant change compared to the prior study. No acute intracranial abnormality. ACT 112: Negative or not required by law. Electronically signed by: Rohit Jim M.D. 08/03/2021 8:51 PM
--- NOTE | 2021-08-03 21:06 | Emergency Department Note ---
History of Present Illness General Chief complaint: Weakness Stated complaint: INCREASING WEAKNESS, LETHARGIC Time Seen by Provider: 08/03/21 20:07 History of Present Illness Provider complaint: Weakness exertional dyspnea Onset (ago): week(s) 1 Associated symptoms: + shortness of breath and + weakness 81-year-old female presents emergency department with daughter for weakness and shortness of breath. Daughter reports that the patient has been having exertional shortness of breath the last week. Patient reports she feels very weak. She denies any chest pain headache abdominal pain nausea vomiting diarrhea melena hematochezia no hematuria or dysuria. No fevers or chills. No recent falls. Home Medications Medication Instructions Recorded Confirmed Type calcium carbonate 600 mg-vitamin 1 cap PO QAM 05/29/18 08/03/21 History D3 5 mcg (200 unit) capsule (Calcium 600 + D(3)) cholecalciferol (vitamin D3) 25 1,000 unit PO QAM 05/29/18 08/03/21 History mcg (1,000 unit) capsule (Vitamin D3) cranberry fruit concentrate 250 mg 500 mg PO QAM 05/29/18 08/03/21 History chewable tablet (Azo Cranberry) omega-3s 300 [id number] 1 cap PO QAM 05/29/18 08/03/21 History [id number] oil 1,000 mg capsule (Thayer-3 Fish Oil) vitamin E 1,000 unit capsule 1,000 unit PO QAM 05/29/18 08/03/21 History lancets 33 gauge (OneTouch Delica See Rx Instructions .ROUTE 03/21/20 08/03/21 Rx Plus Lancet) .COMPLEX #100 ea blood sugar diagnostic (Blood #100 ea 10/12/20 08/03/21 Rx Glucose Test) acetaminophen 500 mg tablet 500 mg PO Q6H PRN 11/12/20 08/03/21 History (Tylenol Extra Strength) ascorbic acid (vitamin C) 500 mg 1,000 mg PO QAM 11/12/20 08/03/21 History tablet (Vitamin C) cyanocobalamin (vitamin B-12) 1,000 mcg PO QAM 11/12/20 08/03/21 History 1,000 mcg tablet (Vitamin B-12) docusate sodium 100 mg capsule 100 mg PO QAM 11/12/20 08/03/21 History (Colace) nitrofurantoin 100 cap PO QAM 11/12/20 08/03/21 History monohydrate/macrocrystals 100 mg capsule (Macrobid) tamsulosin 0.4 mg capsule (Flomax) 0.4 mg PO QAM 11/12/20 08/03/21 History magnesium oxide 500 mg PO QAM tab 11/22/20 08/03/21 History losartan 100 mg tablet (Cozaar) 100 mg PO QAM #90 tab 12/20/20 08/03/21 Rx glipizide 5 mg tablet 5 mg PO QAM #90 tab 02/24/21 08/03/21 Rx methocarbamol 500 mg tablet 500 mg PO TID PRN #90 tab 02/28/21 08/03/21 Rx furosemide 40 mg tablet (Lasix) 40 mg PO BID #180 tab 03/28/21 08/03/21 Rx levothyroxine 112 mcg tablet 112 mcg PO DAILYBB #90 tab 03/31/21 08/03/21 Rx (Synthroid) bethanechol chloride 50 mg tablet 50 mg PO BID #180 tab 04/19/21 08/03/21 Rx ferrous sulfate 325 mg (65 mg 325 mg PO BID #60 tab 04/21/21 08/03/21 Rx iron) tablet atorvastatin 10 mg tablet (Lipitor) 10 mg PO HS #90 tab 04/25/21 08/03/21 Rx linagliptin 5 mg tablet (Tradjenta) 5 mg PO QAM #90 tab 05/23/21 08/03/21 Rx ropinirole 0.5 mg tablet See Rx Instructions PO .COMPLEX 05/23/21 08/03/21 Rx #360 tab omeprazole 20 mg capsule,delayed 20 mg PO QAM #90 cap 06/22/21 08/03/21 Rx release triamcinolone acetonide 0.5 % 1 applic TOPICAL BID PRN #60 g 06/24/21 08/03/21 Rx topical cream amlodipine 10 mg tablet (Norvasc) 10 mg PO QAM #90 tab 07/08/21 08/03/21 Rx clopidogrel 75 mg tablet (Plavix) 75 mg PO QAM #90 tab 07/11/21 08/03/21 Rx doxazosin 4 mg tablet 4 mg PO DAILY 07/13/21 08/03/21 History tramadol 50 mg tablet (Ultram) 50 mg PO BID PRN #60 tab 07/14/21 08/03/21 Rx sertraline 25 mg tablet 25 mg PO DAILY #30 tab 07/27/21 08/03/21 Rx Allergies Allergy/AdvReac Type Severity Reaction Status Date / Time sulfamethoxazole AdvReac Unknown Verified 08/03/21 20:55 [From Bactrim] trimethoprim [From Bactrim] AdvReac Unknown Verified 08/03/21 20:55 Past Med/Surg History Medical History Anemia of chronic disease Anxiety Aortic stenosis CAD (coronary artery disease) Chronic back pain Chronic diastolic heart failure Chronic hyponatremia Chronic kidney disease, stage 3a Diabetes mellitus, type 2 Diabetic retinopathy Essential tremor MINOR IN HAND Fatty liver First degree AV block GERD without esophagitis Hearing deficit Hiatal hernia History of CVA (cerebrovascular accident) (2019) L lacunar infarct Hyperlipidemia Hypertension Hypothyroidism 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 On anticoagulant therapy Osteoarthritis RBBB Recurrent UTI Resistant hypertension Restless legs Stage 3b chronic kidney disease Urinary urgency Venous insufficiency Weakness Surgical History H/O varicose vein ligation History of back surgery (04/2010) X 2 History of bladder suspension procedure X 2 History of colonoscopy History of esophagogastroduodenoscopy (EGD) History of tooth extraction S/P carpal tunnel release RT/LEFT S/P hysterectomy ANDRIA S/P knee replacement RT/LEFT S/P trigger finger release Family History Father Alcohol abuse Heart disease Myocardial infarction Hypertension Sister Pancreatic cancer Diabetes Breast cancer Brother Diabetes Alcohol abuse Stroke Other Cancer No family history of adverse response to anesthesia Denies family history of Ovarian cancer Prostate cancer Colorectal cancer Social History Smoking Status: Never smoker Second Hand Exposure: No; Hx Alcohol Use: No Hx Substance Use: No Preferred Language: French Communication Ability: Effective Visual Impairment: No Limitations Hearing Ability: Normal 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 Beliefs That Will Affect Care: None marital status: / Current Living Situation: Alone current occupational status: retired How many Children do You have: 2 Feels Safe at Home: Yes Childhood Exposure to Second-Hand Smoke: No caffeine: Yes (Coffee x 2 cups per day.) during the past year weight has: remained stable Dental Care, Regularly: No Physical Activity Frequency: Does not Exercise Seatbelt Use: always Sunscreen Use: Yes Assistive Devices: Cane, Denture - Upper, Denture - Lower, Glasses and Walker Review of Systems A total of 10 systems reviewed and were otherwise negative Physical Exam Vital Signs Vital Signs - 24 hr 08/03/21 19:50 08/03/21 20:19 08/03/21 21:40 Temperature 37.3 C Temperature Source Temporal Artery Scan Pulse Rate 86 Pulse Rate [Apical] 85 Respiratory Rate 16 20 Respiratory Effort / Characteristics Non-Labored Spontaneous Non-Labored Spontaneous Respiratory Depth Normal Normal Respiratory Pattern Regular Blood Pressure 131/54 L Blood Pressure [Right Arm] 132/58 L Blood Pressure Mean 79 Blood Pressure Mean [Right Arm] 82 Blood Pressure Position [Right Arm] Semi-fowlers Pulse Oximetry 96 97 Oxygen Delivery Method Room Air Room Air Room Air Sepsis Recent Fever Within 48 Hours No Sepsis New/Unexplained Change in Mental Status No Sepsis Action Taken by Nursing No Action Required Physical Exam GENERAL: She is oriented to person, place, and time. She appears well-developed and well-nourished. She does not appear distressed. HENT: Exam performed. -Head: Normocephalic and atraumatic. -Right Ear: External ear normal. No mastoid tenderness. -Left Ear: External ear normal. No mastoid tenderness. -Mouth/Throat: The oropharynx is clear and moist. No trismus in the jaw. No dental abscesses or uvula swelling. No oropharyngeal exudate or tonsillar abscesses. EYES: Conjunctivae and EOM are normal. Pupils are equal, round, and reactive to light. Right eye exhibits no discharge. Left eye exhibits no discharge. No scleral icterus. NECK: Normal range of motion. Neck supple. No JVD present. No spinous process tenderness present. No carotid bruit present. No rigidity. No tracheal deviation and normal range of motion present. No Brudzinski's sign and no Kernig's sign noted. CV: Normal rate, regular rhythm, normal heart sounds and intact distal pulses. There is no peripheral edema. Palpable radial pulses bue. PULM/CHEST: Effort normal and breath sounds normal. No respiratory distress. No stridor. She has no wheezes. She has no rales. -Chest Wall: Rhonchi bilaterally. ABD: The abdomen is soft. Bowel sounds are normal. She has no distension. No mass is present. There is no tenderness. There is no rebound, no guarding, no Capellan's sign and no tenderness at McBurney's point. Rovsig negative MUSC/SKEL: Normal range of motion. There is no peripheral edema, tenderness or deformity. LYMPH: No cervical adenopathy. NEURO: She is alert and oriented to person, place, and time. She has normal strength. No cranial nerve deficit or sensory deficit. Coordination and gait normal. GCS eye subscore is 4. GCS verbal subscore is 5. GCS motor subscore is 6. Cerebellar tests wnl. SKIN: Skin is warm and dry. She is not diaphoretic. PSYCH: She has a normal mood and affect. Behavior is normal. Judgment and thought content normal. Course Course 2006: The patient was evaluated in room C5. A complete history and physical exam was performed Cardiac monitoring: An order was placed for continuous cardiac monitoring. The monitor shows a rate of 80 with sinus rhythm 2210: Vital signs stable. Labs show hemoglobin of 6.5. Potassium 5.2. Sodium 130. Creatinine 1.71. Patient's creatinine usually runs around 1.2. Troponin elevated 158. proBNP elevated 538. Rectal exam was performed with female nursing senior ui software engineer Sharita at bedside. Patient will be transfused packed red blood cells and started on Protonix bolus and drip. Patient [facility] be [facility]ist team Dr. Novak notified. Critical Care Time Critical Care Time: Yes Total Critical Care Time: 38 I have personally spent greater than 38 minutes of critical care time in the direct management of this patient. This includes bedside care, interpretation of diagnostic studies, and testing, discussion with consultants, patient, and fa rudi members, and other required patient management activities. This 38 minutes is in excess of all separately billable procedures. Medical Decision Making Laboratory Data Result diagrams: 08/03/21 21:05 08/03/21 21:05 Lab Results 08/03/21 08/03/21 08/03/21 Range/Units 19:39 21:05 21:05 WBC 7.40 (4.8-10.8) K/uL RBC 1.99 L (4.2-5.4) M/uL Hgb 6.5 L* (12.0-16.0) g/dL Hct 20.0 L* (37-47) % MCV 100.5 H (80-100) fL MCH 32.7 (25-34) pg MCHC 32.5 (32-36) g/dL RDW Std Deviation 49.2 H (36.4-46.3) fL RDW Coeff of Irasema 13.4 (11.5-14.5) % Plt Count 144 (130-400) K/uL MPV 9.8 (7.4-10.4) fL Immature Gran % (Auto) 0.3 % Neut % (Auto) 90.7 % Lymph % (Auto) 3.8 % Early % (Auto) 5.0 % Eos % (Auto) 0.1 % Baso % (Auto) 0.1 % Neut # (Auto) 6.71 H (1.4-6.5) K/uL Lymph # (Auto) 0.28 L (1.2-3.4) K/uL Early # (Auto) 0.37 (0.11-0.59) K/uL Eos # (Auto) 0.01 (0-0.5) K/uL Baso # (Auto) 0.01 (0-0.2) K/uL Immature Gran # (Auto) 0.02 (0.00-0.02) K/uL Polychromasia 1+ Tear Drop Cells 1+ Echinocytes 1+ VBG pH (7.36-7.41) VBG pCO2 (38-50) mmHg VBG pO2 mmHg VBG HCO3 mmol/L VBG O2 Saturation % VBG Base Excess mEq/L Barometric Pressure mm/Hg Sodium 130 L (136-145) mmol/L Potassium 5.2 H (3.5-5.1) mmol/L Chloride 103 (98-107) mmol/L Carbon Dioxide 17 L (21-32) mmol/L Anion Gap 10 (3-11) BUN 95 H (6-23) mg/dl Creatinine 1.71 H (0.6-1.2) mg/dl Est Cr Clr Drug Dosing Not Reportable Est GFR ( Amer) 31.5 ml/min Est GFR (Non-Af Amer) 27.2 ml/min BUN/Creatinine Ratio 55.6 H (10-20) Glucose 252 H (70-99(Fasting)) mg/dl Calcium 7.9 L (8.5-10.1) mg/dl Magnesium 2.4 (1.7-2.4) mg/dl Total Bilirubin 0.3 (0.2-1.0) mg/dl Direct Bilirubin 0.1 (0-0.2) mg/dl AST 21 (13-39) U/L ALT 25 (7-52) U/L Alkaline Phosphatase 273 H (34-104) U/L Troponin I High Sens 158.0 H* (0-14) pg/ml B-Natriuretic Peptide (0-100) pg/ml Total Protein 5.6 L (6.0-8.3) gm/dl Albumin 3.4 (3.4-5.0) gm/dl Globulin 2.2 L (2.5-4.0) gm/dl Albumin/Globulin Ratio 1.5 (0.9-2) Lipase 36 (11-82) U/L Urine Color Urine Appearance (Clear) Urine pH (4.5-7.5) Ur Specific Coolidge (1.000-1.030) Urine Protein (Negative) Urine Glucose (UA) (Negative) Urine Ketones (Negative) Urine Blood (Negative) Urine Nitrite (Negative) Urine Bilirubin (Negative) Urine Urobilinogen (Negative) Ur Leukocyte Esterase (Negative) Urine WBC (Auto) (0-5) /hpf Urine RBC (Auto) (0-4) /hpf U Hyaline Cast (Auto) (0-5) /lpf U Epithel Cells (Auto) (0-5) /lpf Urine Bacteria (Auto) (Negative) SARS-CoV-2, RNA, NAAT NEGATIVE (NEGATIVE) 08/03/21 08/03/21 08/03/21 Range/Units 21:05 21:05 21:54 WBC (4.8-10.8) K/uL RBC (4.2-5.4) M/uL Hgb (12.0-16.0) g/dL Hct (37-47) % MCV (80-100) fL MCH (25-34) pg MCHC (32-36) g/dL RDW Std Deviation (36.4-46.3) fL RDW Coeff of Irasema (11.5-14.5) % Plt Count (130-400) K/uL MPV (7.4-10.4) fL Immature Gran % (Auto) % Neut % (Auto) % Lymph % (Auto) % Early % (Auto) % Eos % (Auto) % Baso % (Auto) % Neut # (Auto) (1.4-6.5) K/uL Lymph # (Auto) (1.2-3.4) K/uL Early # (Auto) (0.11-0.59) K/uL Eos # (Auto) (0-0.5) K/uL Baso # (Auto) (0-0.2) K/uL Immature Gran # (Auto) (0.00-0.02) K/uL Polychromasia Tear Drop Cells Echinocytes VBG pH 7.34 L (7.36-7.41) VBG pCO2 34 L (38-50) mmHg VBG pO2 31 mmHg VBG HCO3 18 mmol/L VBG O2 Saturation < 60.0 % VBG Base Excess -7.1 mEq/L Barometric Pressure 728.0 mm/Hg Sodium (136-145) mmol/L Potassium (3.5-5.1) mmol/L Chloride (98-107) mmol/L Carbon Dioxide (21-32) mmol/L Anion Gap (3-11) BUN (6-23) mg/dl Creatinine (0.6-1.2) mg/dl Est Cr Clr Drug Dosing Est GFR ( Amer) ml/min Est GFR (Non-Af Amer) ml/min BUN/Creatinine Ratio (10-20) Glucose (70-99(Fasting)) mg/dl Calcium (8.5-10.1) mg/dl Magnesium (1.7-2.4) mg/dl Total Bilirubin (0.2-1.0) mg/dl Direct Bilirubin (0-0.2) mg/dl AST (13-39) U/L ALT (7-52) U/L Alkaline Phosphatase (34-104) U/L Troponin I High Sens (0-14) pg/ml B-Natriuretic Peptide 538 H (0-100) pg/ml Total Protein (6.0-8.3) gm/dl Albumin (3.4-5.0) gm/dl Globulin (2.5-4.0) gm/dl Albumin/Globulin Ratio (0.9-2) Lipase (11-82) U/L Urine Color Yellow Urine Appearance Clear (Clear) Urine pH 5.0 (4.5-7.5) Ur Specific Coolidge 1.016 (1.000-1.030) Urine Protein Negative (Negative) Urine Glucose (UA) Negative (Negative) Urine Ketones Negative (Negative) Urine Blood Negative (Negative) Urine Nitrite Negative (Negative) Urine Bilirubin Negative (Negative) Urine Urobilinogen Negative (Negative) Ur Leukocyte Esterase 2+ H (Negative) Urine WBC (Auto) 10-30 H (0-5) /hpf Urine RBC (Auto) 0-4 (0-4) /hpf U Hyaline Cast (Auto) 1-5 (0-5) /lpf U Epithel Cells (Auto) >30 H (0-5) /lpf Urine Bacteria (Auto) Negative (Negative) SARS-CoV-2, RNA, NAAT (NEGATIVE) Imaging Data My Impression: Chest x-ray negative. Airway clear. No pneumothorax. No consolidation. No cardiomegaly or cephalization.. No free air under the diaphragm. No fractures of the skeletal structures. Radiologist's Impression: Head CT 08/03/21 20:[address] DOSE: 810.83 mGy.cm HISTORY: weakness TECHNIQUE: Multiaxial CT images of the head were performed without the use of intravenous contrast. Automated exposure control was utilized for this study. A dose lowering technique was utilized adhering to the principles of ALARA. Comparison: Head CT 11/12/2020. Findings: The paranasal sinuses and mastoid air cells are clear. The calvarium and skull base are intact. There is no mass, hematoma, midline shift, acute infarct. White matter hypodensity is nonspecific but suggestive of microvascular ischemic change. The ventricles and sulci demonstrate mild age-related involutional changes. Old punctate lacunar infarcts seen within the left basal ganglia and right cerebellar hemisphere. Impression: No significant change compared to the prior study. No acute intracranial abnormality. ACT 112: Negative or not required by law. Electronically signed by: Rohit Jim M.D. 08/03/2021 8:51 PM ECG Data Indication: + SOB/dyspnea Rate (beats per minute): 85 Rhythm: + normal sinus ECG Intervals/blocks: + Right Bundle branch block ECG ST segments: + Normal ST segments Additional Comments: GA 286 QRS 128 QTC 452 MDM Narrative Vital signs stable. Labs show hemoglobin of 6.5. Potassium 5.2. Sodium 130. Creatinine 1.71. Patient's creatinine usually runs around 1.2. Troponin elevated 158. proBNP elevated 538. Rectal exam was performed with female nursing senior ui software engineer Sharita at bedside. Patient will be transfused packed red blood cells and started on Protonix bolus and drip. Patient will be admitted to the [facility] hospitalist team Dr. Novak notified. Impression & Plan GIB (gastrointestinal bleeding), MICHAEL (acute kidney injury) Discharge Plan Visit Data Chief Complaint: Weakness Stated Complaint: INCREASING WEAKNESS, LETHARGIC ED Provider: Yosef Lara Discharge Problem: GIB (gastrointestinal bleeding), MICHAEL (acute kidney injury) Patient Disposition: Admitted As Inpatient Forms Stand Alone Forms: My [facility] Prescriptions Prescriptions: No Action lancets [OneTouch Delica Plus Lancet] 33 gauge misc See Rx Instructions .ROUTE .COMPLEX Qty: 100 RF: 3 (DME) Blood Glucose Test Strip See Rx Instructions .ROUTE .MEDSUPPLY Qty: 100 RF: 5 losartan [Cozaar] 100 mg tablet 100 mg PO QAM Qty: 90 RF: 3 glipizide 5 mg tablet 5 mg PO QAM Qty: 90 RF: 1 Hold Instructions: low glucose methocarbamol 500 mg tablet 500 mg PO TID PRN (Reason: muscle spasm) Qty: 90 RF: 1 furosemide [Lasix] 40 mg tablet 40 mg PO BID Qty: 180 RF: 1 levothyroxine [Synthroid] 112 mcg tablet 112 mcg PO DAILYBB Qty: 90 RF: 1 bethanechol chloride 50 mg tablet 50 mg PO BID Qty: 180 RF: 3 atorvastatin [Lipitor] 10 mg tablet 10 mg PO HS Qty: 90 RF: 1 Tradjenta 5 mg tablet 5 mg PO QAM Qty: 90 RF: 1 ropinirole 0.5 mg tablet See Rx Instructions PO .COMPLEX Qty: 360 RF: 1 omeprazole 20 mg capsule,delayed release(DR/EC) 20 mg PO QAM Qty: 90 RF: 1 triamcinolone acetonide 0.5 % cream 1 applic topical BID PRN (Reason: skin irritation) Qty: 60 RF: 1 amlodipine [Norvasc] 10 mg tablet 10 mg PO QAM Qty: 90 RF: 1 clopidogrel [Plavix] 75 mg tablet 75 mg PO QAM Qty: 90 RF: 1 tramadol [Ultram] 50 mg tablet 50 mg PO BID PRN (Reason: pain) Qty: 60 RF: 0 doxazosin 4 mg tablet 4 mg PO DAILY RF: 0 ferrous sulfate 325 mg (65 mg iron) tablet 325 mg PO BID Qty: 60 RF: 6 sertraline 25 mg tablet 25 mg PO DAILY Qty: 30 RF: 2 vitamin E 1,000 unit Capsule 1,000 unit PO QAM RF: 0 cholecalciferol (vitamin D3) [Vitamin D3] 1,000 unit Capsule 1,000 unit PO QAM RF: 0 Calcium 600 + D(3) 600 mg calcium- 200 unit Capsule 1 cap PO QAM RF: 0 Thayer-3 Fish Oil 300-1,000 mg Capsule 1 cap PO QAM RF: 0 Azo Cranberry 250 mg Tablet,Chewable 500 mg PO QAM RF: 0 acetaminophen [Tylenol Extra Strength] 500 mg Tablet 500 mg PO Q6H PRN (Reason: Pain) RF: 0 ascorbic acid (vitamin C) [Vitamin C] 500 mg Tablet 1,000 mg PO QAM RF: 0 docusate sodium [Colace] 100 mg Capsule 100 mg PO QAM RF: 0 nitrofurantoin monohyd/m-cryst [Macrobid] 100 mg capsule 100 cap PO QAM RF: 0 cyanocobalamin (vitamin B-12) [Vitamin B-12] 1,000 mcg tablet 1,000 mcg PO QAM RF: 0 tamsulosin [Flomax] 0.4 mg capsule 0.4 mg PO QAM RF: 0 magnesium oxide 400 mg magnesium tablet 500 mg PO QAM RF: 0 Referrals Referrals: Agatha Alfaro DO [Primary Care Provider] -
[2021-08-03 21:23] LABS: Base Excess VBG -7.1 mEq/L; HCO3 VBG 18 mmol/L; PCO2 VBG 34 mmHg (38-50); PO2 VBG 31 mmHg; pH VBG 7.34 (7.36-7.41)
[2021-08-03 21:34] LABS: Oxygen Saturation VBG < 60.0 %
[2021-08-03 21:39] LABS: Hemoglobin 6.5 g/dL (12.0-16.0); Mean Corpuscular Hemoglobin 32.7 pg (25-34); Mean Corpuscular Hgb Conc 32.5 g/dL (32-36); Mean Corpuscular Volume 100.5 fL (80-100); Mean Platelet Volume 9.8 fL (7.4-10.4); Platelet Count 144 K/uL (130-400); RDW Coefficient of Variation 13.4 % (11.5-14.5); RDW Standard Deviation 49.2 fL (36.4-46.3); Red Blood Count 1.99 M/uL (4.2-5.4)
[2021-08-03 21:48] LABS: Alanine Aminotransferase 25 U/L (7-52); Albumin Globulin Ratio 1.5 (0.9-2); Albumin Level 3.4 gm/dl (3.4-5.0); Alkaline Phosphatase 273 U/L (34-104); Anion Gap 10 (3-11); Aspartate Aminotransferase 21 U/L (13-39); BUN Creatinine Ratio 55.6 (10-20); Bilirubin Direct 0.1 mg/dl (0-0.2); Bilirubin,Total 0.3 mg/dl (0.2-1.0); Blood Urea Nitrogen 95 mg/dl (6-23); Calcium 7.9 mg/dl (8.5-10.1); Carbon Dioxide 17 mmol/L (21-32); Chloride 103 mmol/L (98-107); Est GFR (African American) 31.5 ml/min; Est GFR (Non-African American) 27.2 ml/min; Globulin 2.2 gm/dl (2.5-4.0); Glucose 252 mg/dl (70-99(Fasting)); Lipase 36 U/L (11-82); Magnesium 2.4 mg/dl (1.7-2.4); Potassium 5.2 mmol/L (3.5-5.1); Sodium 130 mmol/L (136-145); Total Protein 5.6 gm/dl (6.0-8.3)
[2021-08-03 21:54] LABS: Basophils # (auto) 0.01 K/uL (0-0.2); Basophils % (auto) 0.1 %; Echinocytes 1+; Eosinophils # (auto) 0.01 K/uL (0-0.5); Eosinophils % (auto) 0.1 %; Immature Granulocytes # (auto) 0.02 K/uL (0.00-0.02); Immature Granulocytes % (auto) 0.3 %; Lymphocytes # (auto) 0.28 K/uL (1.2-3.4); Lymphocytes % (auto) 3.8 %; Monocytes # (auto) 0.37 K/uL (0.11-0.59); Neutrophils # (auto) 6.71 K/uL (1.4-6.5); Neutrophils % (auto) 90.7 %; Polychromasia 1+; Tear Drop Cells 1+
[2021-08-03] MEDS ORDERED: SODIUM CHLORIDE 0.9% 250 ML IV PRN (21:57)
[2021-08-03] MEDS ORDERED: PANTOPRAZOLE BOLUS/DRIP 1 EA IV STA (22:08)
[2021-08-03] MEDS ORDERED: PANTOprazole 80 MG in DEXTROSE 5% 100 ML IV ONE (22:08)
[2021-08-03 22:30] LABS: Appearance Urine Clear (Clear); Bacteria Urine Automated Negative (Negative); Bilirubin Urine Negative (Negative); Blood Urine Negative (Negative); Color Urine Yellow; Epithelial Cell Urine Auto >30 /lpf (0-5); Glucose Urine UA Negative (Negative); Ketones Urine Negative (Negative); Leukocyte Esterase Urine 2+ (Negative); Nitrite Urine Negative (Negative); Protein Urine Negative (Negative); RBC Urine Automated 0-4 /hpf (0-4); Specific Gravity Urine 1.016 (1.000-1.030); Urobilinogen Urine Negative (Negative)
--- NOTE | 2021-08-03 23:27 | History & Physical Report ---
Date of Service August 03, 2021 Assessment & Plan (1) Anemia: Plan: 81yo female presenting with several weeks of progressive dyspnea, fatigue and weakness. Patient found with macrocytic anemia - Hgb of 6.5, Hct of 20 and MCV of 100.5 (from 9.3, 28.2 and 97.2, respectively on 06/29/21) . Last B12 on 06/15/21 = 1414 and Folate >22.3 Patient receiving IV Iron sucrose infusions monthly as well as B12 supplementation as well as occasional transfusion PRBCs. 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 Last EGD in August 2017 with hiatal hernia and gastritis. She denies active blood loss but does have dark stools which she attributes to her oral iron. She is Heme+ in the ER. Possible UGIB, possible AVMs (patient with history of - may increase risk for GI AVMs) -Admit to medical with telemetry -Maintain 2 PIVs -Protonix gtt -Transfuse 2u PRBCs. Will administer Lasix 40mg IV after 1st unit -CBC q 8 hours -Zofran as needed for nausea -Consult GI - assistance appreciated (2) Elevated troponin: Plan: Patient with elevation of HS-troponin to 158. Denies chest pain -Telemetry monitoring -Trend troponin Patient also with elevation of BNP to 538 - blunting of CP angles on CXR, possible effusions. Question some volume overload -Lasix 40mg IV after 1st unit -Continue Lasix 40mg po BID (3) MICHAEL (acute kidney injury): Plan: Mild elevation in BUN and Cr from baseline. Possibly secondary to severe anemia -Transfusion -Avoid nephrotoxic agents -Renal dosing where indicated -Monitor renal function, urine output -Repeat chemistry in AM (4) History of CVA (cerebrovascular accident): Plan: No notable deficits -Hold Plavix with possible bleed -Continue Atorvastatin (5) Diabetes mellitus type 2 with complications: Plan: Blood sugar elevated at 252. Last HgbA1C= 5 on 05/10/21. Patient has been very well controlled by A1C - ranging from 4.7 - 6.6 over the last two years. -Hold oral agents -Lantus 5u BID -ISS (6) CAD (coronary artery disease): Plan: With elevation of troponin. No chest pain -Trending troponin -Transfusion 2u PRBCs -Hold Plavix with possible GIB -Continue Atorvastatin (7) Hyperlipidemia: Plan: Chronic -Continue Atorvastatin (8) Hypertension: Plan: Chronic -Will hold Losartan, Amlodipine for now -Monitor (9) Hypothyroidism: Plan: Chronic -Continue Synthroid 112mcg po daily (10) Restless legs: Plan: Chronic. Stable on medications -Continue Ropinirole at home dose History of Present Illness Chief Complaint: weakness, fatigue and MCKOEN Primary Care Provider: Agatha Alfaro DO Sully Ray is an 81yo female with history of iron deficient anemia, anxiety, aortic stenosis, CAD, CHF, DM, GERD, HTN and HLP presenting to [facility] ER with symptomatic anemia. Patient reports progressive generalized weakness, fatigue and dyspnea on exertion over the last several weeks. She receives monthly infusions of iron sucrose through Hematology - last in July. She has also required transfusions in the past - patient believes last transfusion was in June. She denies melena or hematochezia but she does have black stools from taking iron supplementation. She denies abdominal pain, nausea, vomiting, hematemesis, dizziness or syncope. Denies hematuria, bruising or bleeding. Patient had an EGD performed on 08/17/2017 which revealed large hiatal hernia and gastritis. 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 ER course: Protonix bolus and drip, PRBCs ordered - establishing IV access at present Allergies Allergy/AdvReac Type Severity Reaction Status Date / Time sulfamethoxazole AdvReac Unknown Verified 08/03/21 20:55 [From Bactrim] trimethoprim [From Bactrim] AdvReac Unknown Verified 08/03/21 20:55 Home Medications Medication Instructions Recorded Confirmed Type calcium carbonate 600 mg-vitamin 1 cap PO QAM 05/29/18 08/03/21 History D3 5 mcg (200 unit) capsule (Calcium 600 + D(3)) cholecalciferol (vitamin D3) 25 1,000 unit PO QAM 05/29/18 08/03/21 History mcg (1,000 unit) capsule (Vitamin D3) cranberry fruit concentrate 250 mg 500 mg PO QAM 05/29/18 08/03/21 History chewable tablet (Azo Cranberry) omega-3s 300 bx-nuu-dmg-other 1 cap PO QAM 05/29/18 08/03/21 History qynae2l-chcs oil 1,000 mg capsule ([place]-3 Fish Oil) vitamin E 1,000 unit capsule 1,000 unit PO QAM 05/29/18 08/03/21 History lancets 33 gauge (OneTouch Delica See Rx Instructions .ROUTE 03/21/20 08/03/21 Rx Plus Lancet) .COMPLEX #100 ea blood sugar diagnostic (Blood #100 ea 10/12/20 08/03/21 Rx Glucose Test) acetaminophen 500 mg tablet 500 mg PO Q6H PRN 11/12/20 08/03/21 History (Tylenol Extra Strength) ascorbic acid (vitamin C) 500 mg 1,000 mg PO QAM 11/12/20 08/03/21 History tablet (Vitamin C) cyanocobalamin (vitamin B-12) 1,000 mcg PO QAM 11/12/20 08/03/21 History 1,000 mcg tablet (Vitamin B-12) docusate sodium 100 mg capsule 100 mg PO QAM 11/12/20 08/03/21 History (Colace) nitrofurantoin 100 cap PO QAM 11/12/20 08/03/21 History monohydrate/macrocrystals 100 mg capsule (Macrobid) tamsulosin 0.4 mg capsule (Flomax) 0.4 mg PO QAM 11/12/20 08/03/21 History magnesium oxide 500 mg PO QAM tab 11/22/20 08/03/21 History losartan 100 mg tablet (Cozaar) 100 mg PO QAM #90 tab 12/20/20 08/03/21 Rx glipizide 5 mg tablet 5 mg PO QAM #90 tab 02/24/21 08/03/21 Rx methocarbamol 500 mg tablet 500 mg PO TID PRN #90 tab 02/28/21 08/03/21 Rx furosemide 40 mg tablet (Lasix) 40 mg PO BID #180 tab 03/28/21 08/03/21 Rx levothyroxine 112 mcg tablet 112 mcg PO DAILYBB #90 tab 03/31/21 08/03/21 Rx (Synthroid) bethanechol chloride 50 mg tablet 50 mg PO BID #180 tab 04/19/21 08/03/21 Rx ferrous sulfate 325 mg (65 mg 325 mg PO BID #60 tab 04/21/21 08/03/21 Rx iron) tablet atorvastatin 10 mg tablet (Lipitor) 10 mg PO HS #90 tab 04/25/21 08/03/21 Rx linagliptin 5 mg tablet (Tradjenta) 5 mg PO QAM #90 tab 05/23/21 08/03/21 Rx ropinirole 0.5 mg tablet See Rx Instructions PO .COMPLEX 05/23/21 08/03/21 Rx #360 tab omeprazole 20 mg capsule,delayed 20 mg PO QAM #90 cap 06/22/21 08/03/21 Rx release triamcinolone acetonide 0.5 % 1 applic TOPICAL BID PRN #60 g 06/24/21 08/03/21 Rx topical cream amlodipine 10 mg tablet (Norvasc) 10 mg PO QAM #90 tab 07/08/21 08/03/21 Rx clopidogrel 75 mg tablet (Plavix) 75 mg PO QAM #90 tab 07/11/21 08/03/21 Rx doxazosin 4 mg tablet 4 mg PO DAILY 07/13/21 08/03/21 History tramadol 50 mg tablet (Ultram) 50 mg PO BID PRN #60 tab 07/14/21 08/03/21 Rx sertraline 25 mg tablet 25 mg PO DAILY #30 tab 07/27/21 08/03/21 Rx Past Med/Surg History Medical History Anemia of chronic disease Anxiety Aortic stenosis CAD (coronary artery disease) Chronic back pain Chronic diastolic heart failure Chronic hyponatremia Chronic kidney disease, stage 3a Diabetes mellitus, type 2 Diabetic retinopathy Essential tremor MINOR IN HAND Fatty liver First degree AV block GERD without esophagitis Hearing deficit Hiatal hernia History of CVA (cerebrovascular accident) (2019) L lacunar infarct Hyperlipidemia Hypertension Hypothyroidism 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 On anticoagulant therapy Osteoarthritis RBBB Recurrent UTI Resistant hypertension Restless legs Stage 3b chronic kidney disease Urinary urgency Venous insufficiency Weakness Surgical History H/O varicose vein ligation History of back surgery (04/2010) X 2 History of bladder suspension procedure X 2 History of colonoscopy History of esophagogastroduodenoscopy (EGD) History of tooth extraction S/P carpal tunnel release RT/LEFT S/P hysterectomy ANDRIA S/P knee replacement RT/LEFT S/P trigger finger release Family History Father Alcohol abuse Heart disease Myocardial infarction Hypertension Sister Pancreatic cancer Diabetes Breast cancer Brother Diabetes Alcohol abuse Stroke Other Cancer No family history of adverse response to anesthesia Denies family history of Ovarian cancer Prostate cancer Colorectal cancer Social History Smoking Status: Never smoker Second Hand Exposure: No; Hx Alcohol Use: No Hx Substance Use: No Preferred Language: Greenlandic Communication Ability: Effective Visual Impairment: No Limitations Hearing Ability: Normal Final Assembler Required: No Beliefs That Will Affect Care: None marital status: / Current Living Situation: Alone current occupational status: retired How many Children do You have: 2 Feels Safe at Home: Yes Childhood Exposure to Second-Hand Smoke: No caffeine: Yes (Coffee x 2 cups per day.) during the past year weight has: remained stable Dental Care, Regularly: No Physical Activity Frequency: Does not Exercise Seatbelt Use: always Sunscreen Use: Yes Assistive Devices: Cane, Denture - Upper, Denture - Lower, Glasses and Walker Review of Systems Review of Systems: All systems reviewed & are unremarkable except as noted in HPI & below Physical Exam Physical Exam: General: patient resting comfortably, NAD, non-toxic in appearance, AA&O x 4 Skin: warm, dry, intact, no rashes, scattered bruises on forearms, small wound on left hand, +pallor HEENT: NC/AT, PERRL, EOMI, anicteric sclera, conjunctiva without injection, external ear normal to inspection and nontender, nares patent, moist mucus membranes, dentition intact, no oropharyngeal lesions, neck supple, trachea midline, no LAD, no thyromegaly, no JVD Heart: +S1/S2, regular, 4/6 YAW across precordium to bilateral carotids Lungs: equal air entry bilaterally, no rales/rhonchi/wheezes Abd: +BS, soft, NT/ND, no masses/organomegaly/ascites Ext: warm, 2+ pulses in UE/LE bilaterally, no clubbing/cyanosis or edema Neuro: nonfocal, patient AA&O x 4, speech intact, no facial droop, moving all extremities on command with equal strength 5/5 Results & Data Results & Data ([facility]) Vital Signs (Past 12 Hours) Vital Signs Temp Pulse Pulse Resp BP BP Pulse Ox 08/03/21 21:40 85 20 132/58 L 97 08/03/21 19:50 37.3 C 86 16 131/54 L 96 Laboratory Results Laboratory Results WBC 7.40 K/uL (4.8-10.8) 08/03/21 21:05 RBC 1.99 M/uL (4.2-5.4) L 08/03/21 21:05 Hgb 6.5 g/dL (12.0-16.0) L* 08/03/21 21:05 Hct 20.0 % (37-47) L* 08/03/21 21:05 MCV 100.5 fL (80-100) H 08/03/21 21:05 MCH 32.7 pg (25-34) 08/03/21 21:05 MCHC 32.5 g/dL (32-36) 08/03/21 21:05 RDW Std Deviation 49.2 fL (36.4-46.3) H 08/03/21 21:05 RDW Coeff of Irasema 13.4 % (11.5-14.5) 08/03/21 21:05 Plt Count 144 K/uL (130-400) 08/03/21 21:05 MPV 9.8 fL (7.4-10.4) 08/03/21 21:05 Immature Gran % (Auto) 0.3 % 08/03/21 21:05 Neut % (Auto) 90.7 % 08/03/21 21:05 Lymph % (Auto) 3.8 % 08/03/21 21:05 Harris % (Auto) 5.0 % 08/03/21 21:05 Eos % (Auto) 0.1 % 08/03/21 21:05 Baso % (Auto) 0.1 % 08/03/21 21:05 Neut # (Auto) 6.71 K/uL (1.4-6.5) H 08/03/21 21:05 Lymph # (Auto) 0.28 K/uL (1.2-3.4) L 08/03/21 21:05 Harris # (Auto) 0.37 K/uL (0.11-0.59) 08/03/21 21:05 Eos # (Auto) 0.01 K/uL (0-0.5) 08/03/21 21:05 Baso # (Auto) 0.01 K/uL (0-0.2) 08/03/21 21:05 Immature Gran # (Auto) 0.02 K/uL (0.00-0.02) 08/03/21 21:05 Polychromasia 1+ 08/03/21 21:05 Tear Drop Cells 1+ 08/03/21 21:05 Echinocytes 1+ 08/03/21 21:05 VBG pH 7.34 (7.36-7.41) L 08/03/21 21:05 VBG pCO2 34 mmHg (38-50) L 08/03/21 21:05 VBG pO2 31 mmHg 08/03/21 21:05 VBG HCO3 18 mmol/L 08/03/21 21:05 VBG O2 Saturation < 60.0 % 08/03/21 21:05 VBG Base Excess -7.1 mEq/L 08/03/21 21:05 Barometric Pressure 728.0 mm/Hg 08/03/21 21:05 Sodium 130 mmol/L (136-145) L 08/03/21 21:05 Potassium 5.2 mmol/L (3.5-5.1) H 08/03/21 21:05 Chloride 103 mmol/L (98-107) 08/03/21 21:05 Carbon Dioxide 17 mmol/L (21-32) L 08/03/21 21:05 Anion Gap 10 (3-11) 08/03/21 21:05 BUN 95 mg/dl (6-23) H 08/03/21 21:05 Creatinine 1.71 mg/dl (0.6-1.2) H 08/03/21 21:05 Est Cr Clr Drug Dosing Not Reportable 08/03/21 21:05 Est GFR ( Amer) 31.5 ml/min 08/03/21 21:05 Est GFR (Non-Af Amer) 27.2 ml/min 08/03/21 21:05 BUN/Creatinine Ratio 55.6 (10-20) H 08/03/21 21:05 Glucose 252 mg/dl (70-99(Fasting)) H 08/03/21 21:05 Calcium 7.9 mg/dl (8.5-10.1) L 08/03/21 21:05 Magnesium 2.4 mg/dl (1.7-2.4) 08/03/21 21:05 Total Bilirubin 0.3 mg/dl (0.2-1.0) 08/03/21 21:05 Direct Bilirubin 0.1 mg/dl (0-0.2) 08/03/21 21:05 AST 21 U/L (13-39) 08/03/21 21:05 ALT 25 U/L (7-52) 08/03/21 21:05 Alkaline Phosphatase 273 U/L (34-104) H 08/03/21 21:05 Troponin I High Sens 158.0 pg/ml (0-14) H* 08/03/21 21:05 B-Natriuretic Peptide 538 pg/ml (0-100) H 08/03/21 21:05 Total Protein 5.6 gm/dl (6.0-8.3) L 08/03/21 21:05 Albumin 3.4 gm/dl (3.4-5.0) 08/03/21 21:05 Globulin 2.2 gm/dl (2.5-4.0) L 08/03/21 21:05 Albumin/Globulin Ratio 1.5 (0.9-2) 08/03/21 21:05 Lipase 36 U/L (11-82) 08/03/21 21:05 Urine Color Yellow 08/03/21 21:54 Urine Appearance Clear (Clear) 08/03/21 21:54 Urine pH 5.0 (4.5-7.5) 08/03/21 21:54 Ur Specific Street[place] 1.016 (1.000-1.030) 08/03/21 21:54 Urine Protein Negative (Negative) 08/03/21 21:54 Urine Glucose (UA) Negative (Negative) 08/03/21 21:54 Urine Ketones Negative (Negative) 08/03/21 21:54 Urine Blood Negative (Negative) 08/03/21 21:54 Urine Nitrite Negative (Negative) 08/03/21 21:54 Urine Bilirubin Negative (Negative) 08/03/21 21:54 Urine Urobilinogen Negative (Negative) 08/03/21 21:54 Ur Leukocyte Esterase 2+ (Negative) H 08/03/21 21:54 Urine WBC (Auto) 10-30 /hpf (0-5) H 08/03/21 21:54 Urine RBC (Auto) 0-4 /hpf (0-4) 08/03/21 21:54 U Hyaline Cast (Auto) 1-5 /lpf (0-5) 08/03/21 21:54 U Epithel Cells (Auto) >30 /lpf (0-5) H 08/03/21 21:54 Urine Bacteria (Auto) Negative (Negative) 08/03/21 21:54 SARS-CoV-2, RNA, NAAT NEGATIVE (NEGATIVE) 08/03/21 19:39 Crossmatch See Detail 08/03/21 22:[address] 08/03/21 20:[address] DOSE: 810.83 mGy.cm HISTORY: weakness TECHNIQUE: Multiaxial CT images of the head were performed without the use of intravenous contrast. Automated exposure control was utilized for this study. A dose lowering technique was utilized adhering to the principles of ALARA. Comparison: Head CT 11/12/2020. Findings: The paranasal sinuses and mastoid air cells are clear. The calvarium and skull base are intact. There is no mass, hematoma, midline shift, acute infarct. White matter hypodensity is nonspecific but suggestive of microvascular ischemic change. The ventricles and sulci demonstrate mild age-related involutional changes. Old punctate lacunar infarcts seen within the left basal ganglia and right cerebellar hemisphere. Impression: No significant change compared to the prior study. No acute intracranial abnormality. ACT 112: Negative or not required by law. Electronically signed by: Rohit Jim M.D. 08/03/2021 8:51 PM Diagnostic Findings CXR by my interpretation - appears to have calcification of aortic knob, hardware in place from prior back surgery, appears to have bilateral blunting of costophrenic angles, ? some degree of pulmonary vascular congestion, hilar fullness on right which is similar to prior study from 05/2018 ECG Additional Comments: EKG wtih SR at 85bpm, 1st degree AV block, CB=001, UCB=144, NPz=744 PG Care Time/CCT Total # of Minutes Spent Total Time Spent with Patient: Total time spent is greater than 50% in coordination of care (as documented) at patient's floor/unit and/or counseling patient: Coding Level of Care Code 82826 Initial Inpt Care Lvl 3 Diagnoses MICHAEL (acute kidney injury) N17.9 History of CVA (cerebrovascular accident) Z86.73 Diabetes mellitus type 2 with complications E11.8 CAD (coronary artery disease) I25.10 Hyperlipidemia E78.5 Hypertension I10 Hypothyroidism E03.9 Restless legs G25.81 Anemia D64.9 Elevated troponin R77.8
[2021-08-03] MEDS: PANTOprazole 40 MG in DEXTROSE 5% 100 ML IV SCH (23:49)
[2021-08-04] MEDS ORDERED: FUROSEMIDE 40 MG/4 ML VIAL IV ONE ×2 (00:28→04:16)
[2021-08-04] MEDS ORDERED: GLUCAGON FOR INJ 1 MG VIAL SQ PRN (00:28)
[2021-08-04] MEDS ORDERED: CARBOHYDRATES FOR HYPOGLYCEMIA PO PRN (00:28)
[2021-08-04] MEDS ORDERED: GLUCOSE 40% GEL 15 GM TUBE PO PRN (00:28)
[2021-08-04] MEDS ORDERED: SODIUM CHLORIDE 0.9% 250 ML IV PRN ×2 (00:28→03:57)
[2021-08-04] MEDS ORDERED: traMADol HCL 50 MG TABLET PO PRN (00:28)
[2021-08-04] MEDS ORDERED: ONDANSETRON INJ 2 MG/ML 2 ML VIAL IV PRN (00:28)
[2021-08-04] MEDS ORDERED: GLUCOSE 10 TABS/TUBE PO PRN (00:28)
[2021-08-04] MEDS ORDERED: ACETAMINOPHEN 500 MG TAB PO PRN (00:28)
[2021-08-04] MEDS ORDERED: DEXTROSE 50% 50 ML SYRINGE IV PRN (00:28)
[2021-08-04] MEDS: INSULIN ASPART PER UNIT SC SCH ×4 (02:56→18:15)
[2021-08-04] MEDS: PANTOprazole 40 MG in DEXTROSE 5% 100 ML IV SCH ×4 (04:32→19:55)
[2021-08-04] MEDS: LEVOTHYROXINE SODIUM 112 MCG TABLET PO SCH (05:56)
[2021-08-04 07:14] LABS: BUN Creatinine Ratio 55.3 (10-20); Bilirubin Direct 0.2 mg/dl (0-0.2); Bilirubin,Total 0.7 mg/dl (0.2-1.0); Calcium 7.7 mg/dl (8.5-10.1); Creatinine Clr Calc Pharmacy 21.1 ml/min; Est GFR (African American) 31.8 ml/min; Est GFR (Non-African American) 27.4 ml/min; Potassium 4.7 mmol/L (3.5-5.1); Total Protein 4.9 gm/dl (6.0-8.3)
--- NOTE | 2021-08-04 07:18 | XRay Report ---
XR chest 1V portable CLINICAL HISTORY: Exertional shortness of breath. COMPARISON STUDY: Chest radiograph May 29, 2018. FINDINGS: Thoracolumbar spine fusion hardware is partially imaged. Severe osteoarthritis of the left glenohumeral joint is incidentally noted. There is no pneumothorax. There are small bilateral pleural effusions. Interstitial thickening suggests mild pulmonary edema. There is cardiomegaly. Patient is rotated. IMPRESSION: 1. Mild interstitial pulmonary edema with small bilateral pleural effusions. 2. Cardiomegaly. ACT 112: Negative or not required by law. Electronically signed by: William Hargrove M.D. 08/04/2021 7:16 AM
[2021-08-04] MEDS ORDERED: NITROFURANTOIN MONOHYDRATE 100 MG CAP PO SCH (09:00)
[2021-08-04] MEDS: DOXAZosin MESYLATE 4 MG TAB PO SCH (09:06)
[2021-08-04] MEDS: BETHANECHOL CHL 25 MG TAB PO SCH ×2 (09:06→20:06)
[2021-08-04] MEDS: FUROSEMIDE 40 MG TAB PO SCH ×2 (09:07→18:15)
[2021-08-04] MEDS: TAMSULOSIN HCL 0.4 MG CAP PO SCH (09:07)
[2021-08-04] MEDS: DOCUSATE SODIUM 100 MG CAP PO SCH (09:07)
[2021-08-04] MEDS: SERTRALINE HCL 50 MG TABLET PO SCH (09:07)
[2021-08-04] MEDS: INSULIN GLARGINE SOLOSTAR 100 UNITS/ML 3 ML PEN SC SCH ×2 (09:11→20:14)
[2021-08-04 09:32] LABS: Basophils # (auto) 0.01 K/uL (0-0.2); Basophils % (auto) 0.2 %; Eosinophils # (auto) 0.09 K/uL (0-0.5); Eosinophils % (auto) 1.4 %; Hematocrit (blood only) 23.5 % (37-47); Hemoglobin 7.9 g/dL (12.0-16.0); Immature Granulocytes # (auto) 0.01 K/uL (0.00-0.02); Immature Granulocytes % (auto) 0.2 %; Lymphocytes # (auto) 0.48 K/uL (1.2-3.4); Lymphocytes % (auto) 7.3 %; Mean Corpuscular Hemoglobin 32.6 pg (25-34); Mean Corpuscular Hgb Conc 33.6 g/dL (32-36); Mean Corpuscular Volume 97.1 fL (80-100); Mean Platelet Volume 9.8 fL (7.4-10.4); Monocytes # (auto) 0.63 K/uL (0.11-0.59); Monocytes % (auto) 9.6 %; Neutrophils # (auto) 5.33 K/uL (1.4-6.5); Neutrophils % (auto) 81.3 %; Platelet Count 139 K/uL (130-400); RDW Coefficient of Variation 13.9 % (11.5-14.5); RDW Standard Deviation 49.6 fL (36.4-46.3); Red Blood Count 2.42 M/uL (4.2-5.4); White Blood Count 6.55 K/uL (4.8-10.8)
[2021-08-04 10:09] LABS: Echinocytes 1+
--- NOTE | 2021-08-04 10:20 | Gastrointestinal Consultation ---
Date of Consultation August 04, 2021 Assessment & Plan (1) Anemia: -Follow H/H -Continue Protonix drip for now -Keep NPO for EGD today -Further recommendations pending results of testing Supervising Physician Co-Signing Physician Notes Review of Sully Faria's lab studies reveals a significantly elevated Troponin, elevation of BNP, and review of CX Ray shows pleural effusions. Although she has no complaints of Chest pain or SOB, decision was made that we will hold off on EGD at present to allow for Cardiology consultation, as well as the fact that she has no overt GI Bleeding. I discussed the case in detail with Dr. Metzger of Anesthesia, as well as Dr. Stanford of the Hospitalist team. She has no further complaints at present. Gen: Chronic ill-appearing, NAD Chest: Decreased BS at bilateral bases CVS: RRR, no m/r/g Abd: Soft, NT, ND, +BS Ext: -c/c/e Labs and Radiographic studies reviewed Continue Pantoprazole gtt for now Await cardiology recommendations If no overt bleeding overnight, will hold off on EGD Continue supportive care and conservative management History of Present Illness Reason for Consultation: Symptomatic anemia Attending Physician: Rylee Stanford MD History of Present Illness Patient is an 81 yo female with a history of KOREY, anxiety, aortic stenosis, CAD, CHF, DM2, GERD, HTN, HLD who presented to the ED with symptomatic anemia. She notes that over the last several weeks, she has had progressive SOB & MCKEON. She sees hematology due to this issue and was last given IV iron infusions in 2020. She had an EGD in August 2020 that indicated esophageal varices & gastritis. She had a colonoscopy in November 2020 that did not have GI bleeding noted. She takes iron supplements daily. 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 H/H presently 7.9/23.5. She denies melena, hematochezia, hematemesis, abdominal pain, heartburn or reflux. BP 140/53. She takes Omeprazole 20 mg daily at home. Allergies Allergy/AdvReac Type Severity Reaction Status Date / Time sulfamethoxazole AdvReac Unknown Verified 08/03/21 20:55 [From Bactrim] trimethoprim [From Bactrim] AdvReac Unknown Verified 08/03/21 20:55 Home Medications Medication Instructions Recorded Confirmed Type calcium carbonate 600 mg-vitamin 1 cap PO QAM 05/29/18 08/03/21 History D3 5 mcg (200 unit) capsule (Calcium 600 + D(3)) cholecalciferol (vitamin D3) 25 1,000 unit PO QAM 05/29/18 08/03/21 History mcg (1,000 unit) capsule (Vitamin D3) cranberry fruit concentrate 250 mg 500 mg PO QAM 05/29/18 08/03/21 History chewable tablet (Azo Cranberry) omega-3s 300 hc-rpf-mgw-other 1 cap PO QAM 05/29/18 08/03/21 History [id number] oil 1,000 mg capsule ([place]-3 Fish Oil) vitamin E 1,000 unit capsule 1,000 unit PO QAM 05/29/18 08/03/21 History lancets 33 gauge (OneTouch Delica See Rx Instructions .ROUTE 03/21/20 08/03/21 Rx Plus Lancet) .COMPLEX #100 ea blood sugar diagnostic (Blood #100 ea 10/12/20 08/03/21 Rx Glucose Test) acetaminophen 500 mg tablet 500 mg PO Q6H PRN 11/12/20 08/03/21 History (Tylenol Extra Strength) ascorbic acid (vitamin C) 500 mg 1,000 mg PO QAM 11/12/20 08/03/21 History tablet (Vitamin C) cyanocobalamin (vitamin B-12) 1,000 mcg PO QAM 11/12/20 08/03/21 History 1,000 mcg tablet (Vitamin B-12) docusate sodium 100 mg capsule 100 mg PO QAM 11/12/20 08/03/21 History (Colace) nitrofurantoin 100 cap PO QAM 11/12/20 08/03/21 History monohydrate/macrocrystals 100 mg capsule (Macrobid) tamsulosin 0.4 mg capsule (Flomax) 0.4 mg PO QAM 11/12/20 08/03/21 History magnesium oxide 500 mg PO QAM tab 11/22/20 08/03/21 History losartan 100 mg tablet (Cozaar) 100 mg PO QAM #90 tab 12/20/20 08/03/21 Rx glipizide 5 mg tablet 5 mg PO QAM #90 tab 02/24/21 08/03/21 Rx methocarbamol 500 mg tablet 500 mg PO TID PRN #90 tab 02/28/21 08/03/21 Rx furosemide 40 mg tablet (Lasix) 40 mg PO BID #180 tab 03/28/21 08/03/21 Rx levothyroxine 112 mcg tablet 112 mcg PO DAILYBB #90 tab 03/31/21 08/03/21 Rx (Synthroid) bethanechol chloride 50 mg tablet 50 mg PO BID #180 tab 04/19/21 08/03/21 Rx ferrous sulfate 325 mg (65 mg 325 mg PO BID #60 tab 04/21/21 08/03/21 Rx iron) tablet atorvastatin 10 mg tablet (Lipitor) 10 mg PO HS #90 tab 04/25/21 08/03/21 Rx linagliptin 5 mg tablet (Tradjenta) 5 mg PO QAM #90 tab 05/23/21 08/03/21 Rx ropinirole 0.5 mg tablet See Rx Instructions PO .COMPLEX 05/23/21 08/03/21 Rx #360 tab omeprazole 20 mg capsule,delayed 20 mg PO QAM #90 cap 06/22/21 08/03/21 Rx release triamcinolone acetonide 0.5 % 1 applic TOPICAL BID PRN #60 g 06/24/21 08/03/21 Rx topical cream amlodipine 10 mg tablet (Norvasc) 10 mg PO QAM #90 tab 07/08/21 08/03/21 Rx clopidogrel 75 mg tablet (Plavix) 75 mg PO QAM #90 tab 07/11/21 08/03/21 Rx doxazosin 4 mg tablet 4 mg PO DAILY 07/13/21 08/03/21 History tramadol 50 mg tablet (Ultram) 50 mg PO BID PRN #60 tab 07/14/21 08/03/21 Rx sertraline 25 mg tablet 25 mg PO DAILY #30 tab 07/27/21 08/03/21 Rx Patient History Medical History Anemia of chronic disease Anxiety Aortic stenosis CAD (coronary artery disease) Chronic back pain Chronic diastolic heart failure Chronic hyponatremia Chronic kidney disease, stage 3a Diabetes mellitus, type 2 Diabetic retinopathy Essential tremor MINOR IN HAND Fatty liver First degree AV block GERD without esophagitis Hearing deficit Hiatal hernia History of CVA (cerebrovascular accident) (2019) L lacunar infarct Hyperlipidemia Hypertension Hypothyroidism 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 On anticoagulant therapy Osteoarthritis RBBB Recurrent UTI Resistant hypertension Restless legs Stage 3b chronic kidney disease Urinary urgency Venous insufficiency Weakness Surgical History H/O varicose vein ligation History of back surgery (04/2010) X 2 History of bladder suspension procedure X 2 History of colonoscopy History of esophagogastroduodenoscopy (EGD) History of tooth extraction S/P carpal tunnel release RT/LEFT S/P hysterectomy [place]RI[place] S/P knee replacement RT/LEFT S/P trigger finger release Family History Father Alcohol abuse Heart disease Myocardial infarction Hypertension Sister Pancreatic cancer Diabetes Breast cancer Brother Diabetes Alcohol abuse Stroke Other Cancer No family history of adverse response to anesthesia Denies family history of Ovarian cancer Prostate cancer Colorectal cancer Social History Smoking Status: Never smoker Second Hand Exposure: No; Hx Alcohol Use: No Hx Substance Use: No Preferred Language: Serbian Communication Ability: Effective Visual Impairment: No Limitations Hearing Ability: Normal 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 Required: No Beliefs That Will Affect Care: None marital status: Single Current Living Situation: Alone current occupational status: retired How many Children do You have: 2 Feels Safe at Home: Yes Childhood Exposure to Second-Hand Smoke: No caffeine: Yes (Coffee x 2 cups per day.) during the past year weight has: remained stable Dental Care, Regularly: No Physical Activity Frequency: Does not Exercise Seatbelt Use: always Sunscreen Use: Yes Assistive Devices: Cane and Walker Review of Systems Constitutional: no fever and no chills Respiratory: no cough and no dyspnea Cardiovascular: no chest pain Gastrointestinal: no abdominal pain, no heartburn, no coffee ground emesis, no hematemesis, no blood in stools and no melena Integumentary: no problem reported Psychiatric: no problem reported Physical Exam Constitutional: well developed Respiratory: normal respiratory effort, lungs clear to auscultation Cardiovascular: Rate/Rhythm: regular rate Gastrointestinal (Abdomen): Inspection/Auscultation: abdomen normal to inspection Percussion/Palpation: abdomen soft; abdomen nontender Musculoskeletal: Head/Neck/Chest: normocephalic Psychiatric: Orientation: alert and oriented x 3 Results & Data ([facility]) Vital Signs (Past 12 Hours) Vital Signs Temp Pulse Pulse Resp BP BP Pulse Ox 08/04/21 10:00 78 18 140/53 L 96 08/04/21 08:30 70 17 139/60 96 08/04/21 07:50 37.2 C 77 19 160/61 H 98 08/04/21 07:30 37.1 C 69 16 120/51 L 97 08/04/21 07:00 71 17 125/50 L 97 08/04/21 06:52 71 18 119/65 96 08/04/21 06:39 37.1 C 74 18 129/52 L 94 08/04/21 05:39 36.7 C 74 18 129/54 L 94 08/04/21 05:09 37.0 C 73 18 131/57 L 95 08/04/21 04:54 37.0 C 74 18 128/59 L 95 08/04/21 04:37 36.6 C 75 18 132/58 L 95 08/04/21 03:50 37.0 C 74 18 122/56 L 96 08/04/21 03:01 36.8 C 77 18 124/55 L 96 08/04/21 02:01 37.0 C 77 20 134/56 L 96 08/04/21 01:31 37.1 C 84 18 130/54 L 97 08/04/21 01:16 37.2 C 80 19 129/52 L 97 08/04/21 01:01 80 20 126/52 L 96 08/04/21 00:53 37.0 C 79 20 122/54 L 96 08/04/21 00:00 80 21 128/53 L 96 08/03/21 23:31 82 17 135/56 L 96 08/03/21 22:30 84 21 96 PG Care Time/CCT Total # of Minutes Spent Total Time Spent with Patient: Total time spent is greater than 50% in coordination of care (as documented) at patient's floor/unit and/or counseling patient: Coding Level of Care Code 16054 Initial Inpt Care Lvl 3 Diagnoses Anemia D64.9
[2021-08-04 13:03] LABS: Basophils # (auto) 0.01 K/uL (0-0.2); Basophils % (auto) 0.2 %; Eosinophils # (auto) 0.09 K/uL (0-0.5); Eosinophils % (auto) 1.5 %; Hematocrit (blood only) 25.6 % (37-47); Hemoglobin 8.6 g/dL (12.0-16.0); Immature Granulocytes # (auto) 0.01 K/uL (0.00-0.02); Immature Granulocytes % (auto) 0.2 %; Lymphocytes # (auto) 0.42 K/uL (1.2-3.4); Lymphocytes % (auto) 6.8 %; Mean Corpuscular Hemoglobin 32.2 pg (25-34); Mean Corpuscular Hgb Conc 33.6 g/dL (32-36); Mean Corpuscular Volume 95.9 fL (80-100); Monocytes # (auto) 0.49 K/uL (0.11-0.59); Monocytes % (auto) 7.9 %; Neutrophils # (auto) 5.18 K/uL (1.4-6.5); Neutrophils % (auto) 83.4 %; Platelet Count 144 K/uL (130-400); RDW Coefficient of Variation 14.1 % (11.5-14.5); RDW Standard Deviation 49.3 fL (36.4-46.3); Red Blood Count 2.67 M/uL (4.2-5.4)
--- NOTE | 2021-08-04 13:55 | Anesthesiology Consultation ---
Date of Service August 04, 2021 Assessment & Plan (1) Encounter for pre-operative examination: Chart Review Chart Review: Acceptable Risk for Surgery and Patient NOT seen in Pre Admission Testing Consults Requested none History Surgery Operation Date: 08/04/21 16:30 Proposed Procedures p Esophagogastroduodenoscopy Dr Davis - [place] Uriostegui Case, DO Height/Weight Height: 4 ft 9 in Weight: 75.1 kg Allergies Allergy/AdvReac Type Severity Reaction Status Date / Time sulfamethoxazole AdvReac Unknown Verified 08/03/21 20:55 [From Bactrim] trimethoprim [From Bactrim] AdvReac Unknown Verified 08/03/21 20:55 Medications Home Medications Medication Instructions Recorded Confirmed Last Taken calcium carbonate 600 mg-vitamin 1 cap PO QAM 05/29/18 08/03/21 11/28/20 D3 5 mcg (200 unit) capsule (Calcium 600 + D(3)) cholecalciferol (vitamin D3) 25 1,000 unit PO QAM 05/29/18 08/03/21 11/28/20 mcg (1,000 unit) capsule (Vitamin D3) cranberry fruit concentrate 250 mg 500 mg PO QAM 05/29/18 08/03/21 11/28/20 chewable tablet (Azo Cranberry) omega-3s 300 ch-ttu-jrk-other 1 cap PO QAM 05/29/18 08/03/21 11/28/20 [id number] oil 1,000 mg capsule ([place]-3 Fish Oil) vitamin E 1,000 unit capsule 1,000 unit PO QAM 05/29/18 08/03/21 11/28/20 lancets 33 gauge (OneTouch Delica See Rx Instructions .ROUTE 03/21/20 08/03/21 Unknown Plus Lancet) .COMPLEX #100 ea blood sugar diagnostic (Blood #100 ea 10/12/20 08/03/21 Unknown Glucose Test) acetaminophen 500 mg tablet 500 mg PO Q6H PRN 11/12/20 08/03/21 11/26/20 (Tylenol Extra Strength) ascorbic acid (vitamin C) 500 mg 1,000 mg PO QAM 11/12/20 08/03/21 11/28/20 tablet (Vitamin C) cyanocobalamin (vitamin B-12) 1,000 mcg PO QAM 11/12/20 08/03/21 11/28/20 1,000 mcg tablet (Vitamin B-12) docusate sodium 100 mg capsule 100 mg PO QAM 11/12/20 08/03/21 11/28/20 (Colace) nitrofurantoin 100 cap PO QAM 11/12/20 08/03/21 11/28/20 monohydrate/macrocrystals 100 mg capsule (Macrobid) tamsulosin 0.4 mg capsule (Flomax) 0.4 mg PO QAM 11/12/20 08/03/21 11/28/20 magnesium oxide 500 mg PO QAM tab 11/22/20 08/03/21 11/28/20 losartan 100 mg tablet (Cozaar) 100 mg PO QAM #90 tab 12/20/20 08/03/21 Unknown glipizide 5 mg tablet 5 mg PO QAM #90 tab 02/24/21 08/03/21 Unknown methocarbamol 500 mg tablet 500 mg PO TID PRN #90 tab 02/28/21 08/03/21 Unknown furosemide 40 mg tablet (Lasix) 40 mg PO BID #180 tab 03/28/21 08/03/21 Unknown levothyroxine 112 mcg tablet 112 mcg PO DAILYBB #90 tab 03/31/21 08/03/21 Unknown (Synthroid) bethanechol chloride 50 mg tablet 50 mg PO BID #180 tab 04/19/21 08/03/21 Unknown ferrous sulfate 325 mg (65 mg 325 mg PO BID #60 tab 04/21/21 08/03/21 Unknown iron) tablet atorvastatin 10 mg tablet (Lipitor) 10 mg PO HS #90 tab 04/25/21 08/03/21 Unknown linagliptin 5 mg tablet (Tradjenta) 5 mg PO QAM #90 tab 05/23/21 08/03/21 Unknown ropinirole 0.5 mg tablet See Rx Instructions PO .COMPLEX 05/23/21 08/03/21 Unknown #360 tab omeprazole 20 mg capsule,delayed 20 mg PO QAM #90 cap 06/22/21 08/03/21 Unknown release triamcinolone acetonide 0.5 % 1 applic TOPICAL BID PRN #60 g 06/24/21 08/03/21 Unknown topical cream amlodipine 10 mg tablet (Norvasc) 10 mg PO QAM #90 tab 07/08/21 08/03/21 Unknown clopidogrel 75 mg tablet (Plavix) 75 mg PO QAM #90 tab 07/11/21 08/03/21 Unknown doxazosin 4 mg tablet 4 mg PO DAILY 07/13/21 08/03/21 Unknown tramadol 50 mg tablet (Ultram) 50 mg PO BID PRN #60 tab 07/14/21 08/03/21 Unknown sertraline 25 mg tablet 25 mg PO DAILY #30 tab 07/27/21 08/03/21 Unknown Active Medications Generic Name Dose Route Start Last Admin Trade Name Etta PRN Reason Stop Dose Admin Bethanechol Chloride 50 mg 08/04/21 09:00 08/04/21 09:06 Bethanechol Chl 25 Mg Tab PO 09/03/21 08:59 50 mg BID [place] Administration Docusate Sodium 100 mg 08/04/21 09:00 08/04/21 09:07 Docusate Sodium 100 Mg Cap PO 09/03/21 08:59 100 mg QAM [place] Administration Doxazosin Mesylate 4 mg 08/04/21 09:00 08/04/21 09:06 Doxazosin Mesylate 4 Mg Tab PO 09/03/21 08:59 4 mg DAILY [place] Administration Furosemide 40 mg 08/04/21 09:00 08/04/21 09:07 Furosemide 40 Mg Tab PO 09/03/21 08:59 40 mg [id number] [place] Administration Pantoprazole Sodium 40 mg/ 100 mls @ 20 mls/hr 08/03/21 22:30 08/04/21 09:10 Dextrose IV 09/02/21 22:29 8 mg/hr Q5H [place] 20 mls/hr Administration 8 MG/HR Insulin Aspart 0 units 08/04/21 01:00 08/04/21 12:17 Insulin Aspart Per Unit SC 09/03/21 00:59 Not Given Q6 [place] Insulin Glargine 5 units 08/04/21 09:00 08/04/21 09:11 Insulin Glargine Solostar 100 Units/Ml 3 Ml Pen SC 09/03/21 08:59 5 units BID [place] Administration Levothyroxine Sodium 112 mcg 08/04/21 06:30 08/04/21 05:56 Levothyroxine Sodium 112 Mcg Tablet PO 09/03/21 06:29 112 mcg DAILYBB [place] Administration Nitrofurantoin Macrocrystals 100 mg 06/02/22 09:00 08/04/21 09:07 Nitrofurantoin Monohydrate 100 Mg Cap PO 09/03/21 08:59 100 mg QAM [place] Administration Sertraline HCl 25 mg 08/04/21 09:00 08/04/21 09:07 Sertraline Hcl 50 Mg Tablet PO 09/03/21 08:59 25 mg DAILY [place] Administration Tamsulosin HCl 0.4 mg 08/04/21 09:00 08/04/21 09:07 Tamsulosin Hcl 0.4 Mg Cap PO 09/03/21 08:59 0.4 mg QAM [place] Administration Past Medical History Medical History Anemia of chronic disease Anxiety Aortic stenosis CAD (coronary artery disease) Chronic back pain Chronic diastolic heart failure Chronic hyponatremia Chronic kidney disease, stage 3a Diabetes mellitus, type 2 Diabetic retinopathy Essential tremor MINOR IN HAND Fatty liver First degree AV block GERD without esophagitis Hearing deficit Hiatal hernia History of CVA (cerebrovascular accident) (2019) L lacunar infarct Hyperlipidemia Hypertension Hypothyroidism 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 On anticoagulant therapy Osteoarthritis RBBB Recurrent UTI Resistant hypertension Restless legs Stage 3b chronic kidney disease Urinary urgency Venous insufficiency Weakness Past Family History Family History Father Alcohol abuse Heart disease Myocardial infarction Hypertension Sister Pancreatic cancer Diabetes Breast cancer Brother Diabetes Alcohol abuse Stroke Other Cancer No family history of adverse response to anesthesia Denies family history of Ovarian cancer Prostate cancer Colorectal cancer Past Surgical History Surgical History H/O varicose vein ligation History of back surgery (04/2010) X 2 History of bladder suspension procedure X 2 History of colonoscopy History of esophagogastroduodenoscopy (EGD) History of tooth extraction S/P carpal tunnel release RT/LEFT S/P hysterectomy [place] S/P knee replacement RT/LEFT S/P trigger finger release Social History Smoking Status: Never smoker Hx Alcohol Use: No Hx Substance Use: No substance use type: does not use Physical Exam Vital Signs Last Vital Signs Temp 36.9 C 08/04/21 12:12 Pulse 77 08/04/21 12:12 Resp 18 08/04/21 12:12 BP 147/58 H 08/04/21 12:12 Pulse Ox 99 08/04/21 12:12 Testing Laboratory Results 08/04/21 12:29 08/04/21 06:39 Urine Color Yellow 08/03/21 21:54 Urine Appearance Clear (Clear) 08/03/21 21:54 Urine pH 5.0 (4.5-7.5) 08/03/21 21:54 Ur Specific [place] 1.016 (1.000-1.030) 08/03/21 21:54 Urine Protein Negative (Negative) 08/03/21 21:54 Urine Glucose (UA) Negative (Negative) 08/03/21 21:54 Urine Ketones Negative (Negative) 08/03/21 21:54 Urine Nitrite Negative (Negative) 08/03/21 21:54 Ur Leukocyte Esterase 2+ (Negative) H 08/03/21 21:54 Urine WBC (Auto) 10-30 /hpf (0-5) H 08/03/21 21:54 Urine RBC (Auto) 0-4 /hpf (0-4) 08/03/21 21:54 U Hyaline Cast (Auto) 1-5 /lpf (0-5) 08/03/21 21:54 U Epithel Cells (Auto) >30 /lpf (0-5) H 08/03/21 21:54 Urine Bacteria (Auto) Negative (Negative) 08/03/21 21:54 Blood Type O Positive 08/03/21 22:49 Antibody Screen NEGATIVE 08/03/21 22:49 08/03/21 21:54 Urine Culture - Final Urine,Clean Catch More than three types of organisms present, all low counts mixed probable skin chandra. No further identifications or sensitivities to follow. 08/04/21 08/04/21 08/04/21 11:37 05:58 02:50 POC Glucose 143 H 142 H 166 H
[2021-08-04] MEDS: rOPINIRole HCL 0.25 MG TABLET PO SCH (14:44)
--- NOTE | 2021-08-04 16:10 | Electrocardiogram Report ---
Test Reason : Blood Pressure : / mmHG Vent. Rate : 085 BPM Atrial Rate : 085 BPM P-R Int : 286 ms QRS Dur : 128 ms QT Int : 380 ms P-R-T Axes : 061 -12 021 degrees QTc Int : 452 ms Sinus rhythm with 1st degree A-V block Right bundle branch block Abnormal ECG When compared with ECG of 23-NOV-2019 12:10, No significant change Confirmed by Jeffrey Mendez ([id number]) on 08/04/2021 4:09:53 PM Referred By: REFERRED SELF Confirmed By:Jeffrey Mendez
--- NOTE | 2021-08-04 18:07 | Hospitalist Progress Note ---
Date of Service August 04, 2021 Assessment & Plan (1) Acute blood loss anemia: Plan: 81yo female presenting with several weeks of progressive dyspnea, fatigue and weakness. Patient found with macrocytic anemia - Hgb of 6.5, Hct of 20 and MCV of 100.5 (from 9.3, 28.2 and 97.2, respectively on 06/29/21) . Last B12 on 06/15/21 = 1414 and Folate >22.3 Patient receiving IV Iron sucrose infusions monthly as well as B12 supplementation as well as occasional transfusion PRBCs. 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 Last EGD in August 2017 with hiatal hernia and gastritis. She denies active blood loss but does have dark stools which she attributes to her oral iron. She is Heme+ in the ER. With significantly elevated BUN on admission--> points towards UGI bleeding--> possible AVMs (patient with history of - may increase risk for GI AVMs) Hgb now up appropriately to 8.6 after 2 units PRBCs EGD planned by GI today but cancelled due to mildly elevated troponin--will keep NPO after midnight for EGD tomorrow but if hgb stable, will not scope as per my d/w GI No obvious bleeding since admission, no abd pain -hold home Plavix -Maintain 2 PIVs -continue Protonix gtt -f/u CBC in AM -adv diet to clears now (2) Elevated troponin: Plan: Patient with elevation of HS-troponin which peaked at 204 Denies chest pain. ECGs without ischemic changes Likely myocardial demand ischemia in setting of severe anemia, aortic stenosis, underlying CAD. NSTEMI/ACS ruled out -Telemetry monitoring Patient also with elevation of BNP to 538 - blunting of CP angles on CXR, possible effusions. Question some acute on chronic HFpEF -Lasix 40mg IV after 1st unit PRBCs given -hold home Lasix 40mg po BID now as diagnostic tech up to 1.7 (3) MICHAEL (acute kidney injury): Plan: Mild elevation in BUN and Cr from baseline. Possibly secondary to severe anemia diagnostic tech still high at 1.7. Baseline 1.2-1.4 With mild hyperkalemia and non AG metabolic acidosis both now improving. Hyponatremia also improving to 131 -Transfusional support given hold home losartan received IV lasix with transfusion, but now hold home po lasix for now -Avoid nephrotoxic agents -Renal dosing where indicated -Monitor renal function, urine output -Repeat chemistry in AM (4) Hyponatremia: Plan: as above (5) Metabolic acidosis: Plan: as above (6) Diabetes mellitus type 2 with complications: Plan: Blood sugar elevated on admission, now improved Last HgbA1C= 5 on 05/10/21. Patient has been very well controlled by A1C - ranging from 4.7 - 6.6 over the last two years. -Hold oral agents -Lantus 5u BID -ISS but take away carb coverage (7) CAD (coronary artery disease): Plan: With elevation of troponin. No chest pain -Transfusion 2u PRBCs -Hold Plavix with possible GIB -Continue Atorvastatin (8) History of CVA (cerebrovascular accident): Plan: No notable deficits -Hold Plavix with possible bleed -Continue Atorvastatin (9) Hyperlipidemia: Plan: Chronic -Continue Atorvastatin (10) Chronic kidney disease, stage 3a: Plan: sees Nephro, with MICHAEL as above (11) Hypertension: Plan: Chronic. BPs stable to high now with holding home meds -Will hold Losartan, but restart home amlodipine -Monitor (12) Hypothyroidism: Plan: Chronic, TSH normal in 12/2020 -Continue Synthroid 112mcg po daily (13) Restless legs: Plan: Chronic. Stable on medications -Continue Ropinirole at home dose (14) Recurrent urinary tract infection: Plan: hold home Macrobid due to MICHAEL (15) Mitral stenosis and incompetence: Plan: follows with Cardio watch volume status (16) Aortic stenosis: Plan: mild Plan: DVT proph-SCDs, hold chemoproph due to bleeding Dispo-continued stay on tele Admission and Anticipated Discharge Date Admission Date: August 03, 2021 Subjective Pt reports feeling much better now after blood transfusion. She feels "peppier." Denies any SOB, chest pain, no abdominal pain. Had a BM today but did not look at it. Reports her stools are always dark due to taking iron pills. No bleeding from anywhere else that she has noticed. Denies lightheadedness. Review of Systems Review of Systems: All systems reviewed & are unremarkable except as noted in HPI & below Physical Exam Constitutional: WD/WN, vitals as above Eyes: + anicteric sclerae Neck: trachea midline, no thyromegaly Respiratory: normal respiratory effort, lungs clear to auscultation Cardiovascular: Rate/Rhythm: regular rate and regular rhythm Heart Sounds: normal S1, normal S2 and + murmur (3/6 systolic murmur at apex) Extremities: no edema Chest (Breasts): Chest: normal inspection of chest Gastrointestinal (Abdomen): normal bowel sounds, soft, nontender, no hepatosplenomegaly Musculoskeletal: Extremities: extremities normal to inspection; no cyanosis and no clubbing Skin: no rashes, warm and dry Neurologic: moves all extremities and awake; no focal motor deficits Psychiatric: A+Ox3, euthymic affect Lymphatic: no lymphedema Results & Data Results & Data ([facility]) Vital Signs (Past 12 Hours) Vital Signs Temp Pulse Pulse Resp BP BP Pulse Ox 08/04/21 16:58 81 08/04/21 16:57 36.4 C L 19 169/62 H 99 08/04/21 12:12 36.9 C 77 18 147/58 H 99 08/04/21 11:06 77 18 140/56 L 96 08/04/21 10:30 79 14 136/55 L 96 08/04/21 10:00 78 18 140/53 L 96 08/04/21 08:30 70 17 139/60 96 08/04/21 07:50 37.2 C 77 19 160/61 H 98 08/04/21 07:30 37.1 C 69 16 120/51 L 97 08/04/21 07:00 71 17 125/50 L 97 08/04/21 06:52 71 18 119/65 96 08/04/21 06:39 37.1 C 74 18 129/52 L 94 Laboratory Results 08/04/21 08/04/21 08/04/21 Range/Units 18:09 12:29 12:29 WBC 6.20 (4.8-10.8) K/uL RBC 2.67 L (4.2-5.4) M/uL Hgb 8.6 L (12.0-16.0) g/dL Hct 25.6 L (37-47) % MCV 95.9 (80-100) fL MCH 32.2 (25-34) pg MCHC 33.6 (32-36) g/dL RDW Std Deviation 49.3 H (36.4-46.3) fL RDW Coeff of Irasema 14.1 (11.5-14.5) % Plt Count 144 (130-400) K/uL MPV 10.0 (7.4-10.4) fL Immature Gran % (Auto) 0.2 % Neut % (Auto) 83.4 % Lymph % (Auto) 6.8 % Brooke % (Auto) 7.9 % Eos % (Auto) 1.5 % Baso % (Auto) 0.2 % Neut # (Auto) 5.18 (1.4-6.5) K/uL Lymph # (Auto) 0.42 L (1.2-3.4) K/uL Brooke # (Auto) 0.49 (0.11-0.59) K/uL Eos # (Auto) 0.09 (0-0.5) K/uL Baso # (Auto) 0.01 (0-0.2) K/uL Immature Gran # (Auto) 0.01 (0.00-0.02) K/uL Polychromasia Tear Drop Cells Echinocytes VBG pH (7.36-7.41) VBG pCO2 (38-50) mmHg VBG pO2 mmHg VBG HCO3 mmol/L VBG O2 Saturation % VBG Base Excess mEq/L Barometric Pressure mm/Hg Sodium (136-145) mmol/L Potassium (3.5-5.1) mmol/L Chloride (98-107) mmol/L Carbon Dioxide (21-32) mmol/L Anion Gap (3-11) BUN (6-23) mg/dl Creatinine (0.6-1.2) mg/dl Est Cr Clr Drug Dosing Est GFR ( Amer) ml/min Est GFR (Non-Af Amer) ml/min BUN/Creatinine Ratio (10-20) Glucose (70-99(Fasting)) mg/dl POC Glucose 151 H (70-99) mg/dl Calcium (8.5-10.1) mg/dl Ionized Calcium (1.12-1.32) mmol/L Magnesium (1.7-2.4) mg/dl Total Bilirubin (0.2-1.0) mg/dl Direct Bilirubin (0-0.2) mg/dl AST (13-39) U/L ALT (7-52) U/L Alkaline Phosphatase (34-104) U/L Troponin I High Sens 166.8 H* (0-14) pg/ml B-Natriuretic Peptide (0-100) pg/ml Total Protein (6.0-8.3) gm/dl Albumin (3.4-5.0) gm/dl Globulin (2.5-4.0) gm/dl Albumin/Globulin Ratio (0.9-2) Lipase (11-82) U/L Urine Color Urine Appearance (Clear) Urine pH (4.5-7.5) Ur Specific [place] (1.000-1.030) Urine Protein (Negative) Urine Glucose (UA) (Negative) Urine Ketones (Negative) Urine Blood (Negative) Urine Nitrite (Negative) Urine Bilirubin (Negative) Urine Urobilinogen (Negative) Ur Leukocyte Esterase (Negative) Urine WBC (Auto) (0-5) /hpf Urine RBC (Auto) (0-4) /hpf U Hyaline Cast (Auto) (0-5) /lpf U Epithel Cells (Auto) (0-5) /lpf Urine Bacteria (Auto) (Negative) SARS-CoV-2, RNA, NAAT (NEGATIVE) Blood Type Antibody Screen Crossmatch 08/04/21 08/04/21 08/04/21 Range/Units 11:37 09:01 06:39 WBC 6.55 (4.8-10.8) K/uL RBC 2.42 L (4.2-5.4) M/uL Hgb 7.9 L (12.0-16.0) g/dL Hct 23.5 L (37-47) % MCV 97.1 (80-100) fL MCH 32.6 (25-34) pg MCHC 33.6 (32-36) g/dL RDW Std Deviation 49.6 H (36.4-46.3) fL RDW Coeff of Irasema 13.9 (11.5-14.5) % Plt Count 139 (130-400) K/uL MPV 9.8 (7.4-10.4) fL Immature Gran % (Auto) 0.2 % Neut % (Auto) 81.3 % Lymph % (Auto) 7.3 % Brooke % (Auto) 9.6 % Eos % (Auto) 1.4 % Baso % (Auto) 0.2 % Neut # (Auto) 5.33 (1.4-6.5) K/uL Lymph # (Auto) 0.48 L (1.2-3.4) K/uL Brooke # (Auto) 0.63 H (0.11-0.59) K/uL Eos # (Auto) 0.09 (0-0.5) K/uL Baso # (Auto) 0.01 (0-0.2) K/uL Immature Gran # (Auto) 0.01 (0.00-0.02) K/uL Polychromasia Tear Drop Cells Echinocytes 1+ VBG pH (7.36-7.41) VBG pCO2 (38-50) mmHg VBG pO2 mmHg VBG HCO3 mmol/L VBG O2 Saturation % VBG Base Excess mEq/L Barometric Pressure mm/Hg Sodium (136-145) mmol/L Potassium (3.5-5.1) mmol/L Chloride (98-107) mmol/L Carbon Dioxide (21-32) mmol/L Anion Gap (3-11) BUN (6-23) mg/dl Creatinine (0.6-1.2) mg/dl Est Cr Clr Drug Dosing Est GFR ( Amer) ml/min Est GFR (Non-Af Amer) ml/min BUN/Creatinine Ratio (10-20) Glucose (70-99(Fasting)) mg/dl POC Glucose 143 H (70-99) mg/dl Calcium (8.5-10.1) mg/dl Ionized Calcium (1.12-1.32) mmol/L Magnesium (1.7-2.4) mg/dl Total Bilirubin (0.2-1.0) mg/dl Direct Bilirubin (0-0.2) mg/dl AST (13-39) U/L ALT (7-52) U/L Alkaline Phosphatase (34-104) U/L Troponin I High Sens 204.6 H* D (0-14) pg/ml B-Natriuretic Peptide (0-100) pg/ml Total Protein (6.0-8.3) gm/dl Albumin (3.4-5.0) gm/dl Globulin (2.5-4.0) gm/dl Albumin/Globulin Ratio (0.9-2) Lipase (11-82) U/L Urine Color Urine Appearance (Clear) Urine pH (4.5-7.5) Ur Specific [place] (1.000-1.030) Urine Protein (Negative) Urine Glucose (UA) (Negative) Urine Ketones (Negative) Urine Blood (Negative) Urine Nitrite (Negative) Urine Bilirubin (Negative) Urine Urobilinogen (Negative) Ur Leukocyte Esterase (Negative) Urine WBC (Auto) (0-5) /hpf Urine RBC (Auto) (0-4) /hpf U Hyaline Cast (Auto) (0-5) /lpf U Epithel Cells (Auto) (0-5) /lpf Urine Bacteria (Auto) (Negative) SARS-CoV-2, RNA, NAAT (NEGATIVE) Blood Type Antibody Screen Crossmatch 08/04/21 08/04/21 08/04/21 Range/Units 06:39 05:58 02:50 WBC (4.8-10.8) K/uL RBC (4.2-5.4) M/uL Hgb (12.0-16.0) g/dL Hct (37-47) % MCV (80-100) fL MCH (25-34) pg MCHC (32-36) g/dL RDW Std Deviation (36.4-46.3) fL RDW Coeff of Irasema (11.5-14.5) % Plt Count (130-400) K/uL MPV (7.4-10.4) fL Immature Gran % (Auto) % Neut % (Auto) % Lymph % (Auto) % Brooke % (Auto) % Eos % (Auto) % Baso % (Auto) % Neut # (Auto) (1.4-6.5) K/uL Lymph # (Auto) (1.2-3.4) K/uL Brooke # (Auto) (0.11-0.59) K/uL Eos # (Auto) (0-0.5) K/uL Baso # (Auto) (0-0.2) K/uL Immature Gran # (Auto) (0.00-0.02) K/uL Polychromasia Tear Drop Cells Echinocytes VBG pH (7.36-7.41) VBG pCO2 (38-50) mmHg VBG pO2 mmHg VBG HCO3 mmol/L VBG O2 Saturation % VBG Base Excess mEq/L Barometric Pressure mm/Hg Sodium 131 L (136-145) mmol/L Potassium 4.7 (3.5-5.1) mmol/L Chloride 105 (98-107) mmol/L Carbon Dioxide 19 L (21-32) mmol/L Anion Gap 7 (3-11) BUN 94 H (6-23) mg/dl Creatinine 1.70 H (0.6-1.2) mg/dl Est Cr Clr Drug Dosing 21.1 Est GFR ( Amer) 31.8 ml/min Est GFR (Non-Af Amer) 27.4 ml/min BUN/Creatinine Ratio 55.3 H (10-20) Glucose 127 H (70-99(Fasting)) mg/dl POC Glucose 142 H 166 H (70-99) mg/dl Calcium 7.7 L (8.5-10.1) mg/dl Ionized Calcium (1.12-1.32) mmol/L Magnesium (1.7-2.4) mg/dl Total Bilirubin 0.7 (0.2-1.0) mg/dl Direct Bilirubin 0.2 (0-0.2) mg/dl AST 15 (13-39) U/L ALT 20 (7-52) U/L Alkaline Phosphatase 242 H (34-104) U/L Troponin I High Sens (0-14) pg/ml B-Natriuretic Peptide (0-100) pg/ml Total Protein 4.9 L (6.0-8.3) gm/dl Albumin 3.0 L (3.4-5.0) gm/dl Globulin (2.5-4.0) gm/dl Albumin/Globulin Ratio (0.9-2) Lipase (11-82) U/L Urine Color Urine Appearance (Clear) Urine pH (4.5-7.5) Ur Specific [place] (1.000-1.030) Urine Protein (Negative) Urine Glucose (UA) (Negative) Urine Ketones (Negative) Urine Blood (Negative) Urine Nitrite (Negative) Urine Bilirubin (Negative) Urine Urobilinogen (Negative) Ur Leukocyte Esterase (Negative) Urine WBC (Auto) (0-5) /hpf Urine RBC (Auto) (0-4) /hpf U Hyaline Cast (Auto) (0-5) /lpf U Epithel Cells (Auto) (0-5) /lpf Urine Bacteria (Auto) (Negative) SARS-CoV-2, RNA, NAAT (NEGATIVE) Blood Type Antibody Screen Crossmatch 08/04/21 08/04/21 08/03/21 Range/Units 00:59 00:59 22:49 WBC (4.8-10.8) K/uL RBC (4.2-5.4) M/uL Hgb (12.0-16.0) g/dL Hct (37-47) % MCV (80-100) fL MCH (25-34) pg MCHC (32-36) g/dL RDW Std Deviation (36.4-46.3) fL RDW Coeff of Irasema (11.5-14.5) % Plt Count (130-400) K/uL MPV (7.4-10.4) fL Immature Gran % (Auto) % Neut % (Auto) % Lymph % (Auto) % Brooke % (Auto) % Eos % (Auto) % Baso % (Auto) % Neut # (Auto) (1.4-6.5) K/uL Lymph # (Auto) (1.2-3.4) K/uL [place]oke # (Auto) (0.11-0.59) K/uL Eos # (Auto) (0-0.5) K/uL Baso # (Auto) (0-0.2) K/uL Immature Gran # (Auto) (0.00-0.02) K/uL Polychromasia Tear Drop Cells Echinocytes VBG pH (7.36-7.41) VBG pCO2 (38-50) mmHg VBG pO2 mmHg VBG HCO3 mmol/L VBG O2 Saturation % VBG Base Excess mEq/L Barometric Pressure mm/Hg Sodium (136-145) mmol/L Potassium (3.5-5.1) mmol/L Chloride (98-107) mmol/L Carbon Dioxide (21-32) mmol/L Anion Gap (3-11) BUN (6-23) mg/dl Creatinine (0.6-1.2) mg/dl Est Cr Clr Drug Dosing Est GFR ( Amer) ml/min Est GFR (Non-Af Amer) ml/min BUN/Creatinine Ratio (10-20) Glucose (70-99(Fasting)) mg/dl POC Glucose (70-99) mg/dl Calcium (8.5-10.1) mg/dl Ionized Calcium 1.07 L (1.12-1.32) mmol/L Magnesium (1.7-2.4) mg/dl Total Bilirubin (0.2-1.0) mg/dl Direct Bilirubin (0-0.2) mg/dl AST (13-39) U/L ALT (7-52) U/L Alkaline Phosphatase (34-104) U/L Troponin I High Sens 158.4 H* (0-14) pg/ml B-Natriuretic Peptide (0-100) pg/ml Total Protein (6.0-8.3) gm/dl Albumin (3.4-5.0) gm/dl Globulin (2.5-4.0) gm/dl Albumin/Globulin Ratio (0.9-2) Lipase (11-82) U/L Urine Color Urine Appearance (Clear) Urine pH (4.5-7.5) Ur Specific [place] (1.000-1.030) Urine Protein (Negative) Urine Glucose (UA) (Negative) Urine Ketones (Negative) Urine Blood (Negative) Urine Nitrite (Negative) Urine Bilirubin (Negative) Urine Urobilinogen (Negative) Ur Leukocyte Esterase (Negative) Urine WBC (Auto) (0-5) /hpf Urine RBC (Auto) (0-4) /hpf U Hyaline Cast (Auto) (0-5) /lpf U Epithel Cells (Auto) (0-5) /lpf Urine Bacteria (Auto) (Negative) SARS-CoV-2, RNA, NAAT (NEGATIVE) Blood Type O Positive Antibody Screen NEGATIVE Crossmatch See Detail 08/03/21 08/03/21 08/03/21 Range/Units 21:54 21:05 21:05 WBC (4.8-10.8) K/uL RBC (4.2-5.4) M/uL Hgb (12.0-16.0) g/dL Hct (37-47) % MCV (80-100) fL MCH (25-34) pg MCHC (32-36) g/dL RDW Std Deviation (36.4-46.3) fL RDW Coeff of Irasema (11.5-14.5) % Plt Count (130-400) K/uL MPV (7.4-10.4) fL Immature Gran % (Auto) % Neut % (Auto) % Lymph % (Auto) % Brooke % (Auto) % Eos % (Auto) % Baso % (Auto) % Neut # (Auto) (1.4-6.5) K/uL Lymph # (Auto) (1.2-3.4) K/uL Brooke # (Auto) (0.11-0.59) K/uL Eos # (Auto) (0-0.5) K/uL Baso # (Auto) (0-0.2) K/uL Immature Gran # (Auto) (0.00-0.02) K/uL Polychromasia Tear Drop Cells Echinocytes VBG pH 7.34 L (7.36-7.41) VBG pCO2 34 L (38-50) mmHg VBG pO2 31 mmHg VBG HCO3 18 mmol/L VBG O2 Saturation < 60.0 % VBG Base Excess -7.1 mEq/L Barometric Pressure 728.0 mm/Hg Sodium (136-145) mmol/L Potassium (3.5-5.1) mmol/L Chloride (98-107) mmol/L Carbon Dioxide (21-32) mmol/L Anion Gap (3-11) BUN (6-23) mg/dl Creatinine (0.6-1.2) mg/dl Est Cr Clr Drug Dosing Est GFR ( Amer) ml/min Est GFR (Non-Af Amer) ml/min BUN/Creatinine Ratio (10-20) Glucose (70-99(Fasting)) mg/dl POC Glucose (70-99) mg/dl Calcium (8.5-10.1) mg/dl Ionized Calcium (1.12-1.32) mmol/L Magnesium (1.7-2.4) mg/dl Total Bilirubin (0.2-1.0) mg/dl Direct Bilirubin (0-0.2) mg/dl AST (13-39) U/L ALT (7-52) U/L Alkaline Phosphatase (34-104) U/L Troponin I High Sens (0-14) pg/ml B-Natriuretic Peptide 538 H (0-100) pg/ml Total Protein (6.0-8.3) gm/dl Albumin (3.4-5.0) gm/dl Globulin (2.5-4.0) gm/dl Albumin/Globulin Ratio (0.9-2) Lipase (11-82) U/L Urine Color Yellow Urine Appearance Clear (Clear) Urine pH 5.0 (4.5-7.5) Ur Specific [place] 1.016 (1.000-1.030) Urine Protein Negative (Negative) Urine Glucose (UA) Negative (Negative) Urine Ketones Negative (Negative) Urine Blood Negative (Negative) Urine Nitrite Negative (Negative) Urine Bilirubin Negative (Negative) Urine Urobilinogen Negative (Negative) Ur Leukocyte Esterase 2+ H (Negative) Urine WBC (Auto) 10-30 H (0-5) /hpf Urine RBC (Auto) 0-4 (0-4) /hpf U Hyaline Cast (Auto) 1-5 (0-5) /lpf U Epithel Cells (Auto) >30 H (0-5) /lpf Urine Bacteria (Auto) Negative (Negative) SARS-CoV-2, RNA, NAAT (NEGATIVE) Blood Type Antibody Screen Crossmatch 08/03/21 08/03/21 08/03/21 Range/Units 21:05 21:05 19:39 WBC 7.40 (4.8-10.8) K/uL RBC 1.99 L (4.2-5.4) M/uL Hgb 6.5 L* (12.0-16.0) g/dL Hct 20.0 L* (37-47) % MCV 100.5 H (80-100) fL MCH 32.7 (25-34) pg MCHC 32.5 (32-36) g/dL RDW Std Deviation 49.2 H (36.4-46.3) fL RDW Coeff of Irasema 13.4 (11.5-14.5) % Plt Count 144 (130-400) K/uL MPV 9.8 (7.4-10.4) fL Immature Gran % (Auto) 0.3 % Neut % (Auto) 90.7 % Lymph % (Auto) 3.8 % [place] % (Auto) 5.0 % Eos % (Auto) 0.1 % Baso % (Auto) 0.1 % Neut # (Auto) 6.71 H (1.4-6.5) K/uL Lymph # (Auto) 0.28 L (1.2-3.4) K/uL [place] # (Auto) 0.37 (0.11-0.59) K/uL Eos # (Auto) 0.01 (0-0.5) K/uL Baso # (Auto) 0.01 (0-0.2) K/uL Immature Gran # (Auto) 0.02 (0.00-0.02) K/uL Polychromasia 1+ Tear Drop Cells 1+ Echinocytes 1+ VBG pH (7.36-7.41) VBG pCO2 (38-50) mmHg VBG pO2 mmHg VBG HCO3 mmol/L VBG O2 Saturation % VBG Base Excess mEq/L Barometric Pressure mm/Hg Sodium 130 L (136-145) mmol/L Potassium 5.2 H (3.5-5.1) mmol/L Chloride 103 (98-107) mmol/L Carbon Dioxide 17 L (21-32) mmol/L Anion Gap 10 (3-11) BUN 95 H (6-23) mg/dl Creatinine 1.71 H (0.6-1.2) mg/dl Est Cr Clr Drug Dosing Not Reportable Est GFR ( Amer) 31.5 ml/min Est GFR (Non-Af Amer) 27.2 ml/min BUN/Creatinine Ratio 55.6 H (10-20) Glucose 252 H (70-99(Fasting)) mg/dl POC Glucose (70-99) mg/dl Calcium 7.9 L (8.5-10.1) mg/dl Ionized Calcium (1.12-1.32) mmol/L Magnesium 2.4 (1.7-2.4) mg/dl Total Bilirubin 0.3 (0.2-1.0) mg/dl Direct Bilirubin 0.1 (0-0.2) mg/dl AST 21 (13-39) U/L ALT 25 (7-52) U/L Alkaline Phosphatase 273 H (34-104) U/L Troponin I High Sens 158.0 H* (0-14) pg/ml B-Natriuretic Peptide (0-100) pg/ml Total Protein 5.6 L (6.0-8.3) gm/dl Albumin 3.4 (3.4-5.0) gm/dl Globulin 2.2 L (2.5-4.0) gm/dl Albumin/Globulin Ratio 1.5 (0.9-2) Lipase 36 (11-82) U/L Urine Color Urine Appearance (Clear) Urine pH (4.5-7.5) Ur Specific [place] (1.000-1.030) Urine Protein (Negative) Urine Glucose (UA) (Negative) Urine Ketones (Negative) Urine Blood (Negative) Urine Nitrite (Negative) Urine Bilirubin (Negative) Urine Urobilinogen (Negative) Ur Leukocyte Esterase (Negative) Urine WBC (Auto) (0-5) /hpf Urine RBC (Auto) (0-4) /hpf U Hyaline Cast (Auto) (0-5) /lpf U Epithel Cells (Auto) (0-5) /lpf Urine Bacteria (Auto) (Negative) SARS-CoV-2, RNA, NAAT NEGATIVE (NEGATIVE) Blood Type Antibody Screen Crossmatch PG Care Time/CCT Total # of Minutes Spent Total Time Spent with Patient: Total time spent is greater than 50% in coordination of care (as documented) at patient's floor/unit and/or counseling patient: Coding Level of Care Code 95592 Subseq Hosp Care Lvl 3 Diagnoses Elevated troponin R77.8 MICHAEL (acute kidney injury) N17.9 History of CVA (cerebrovascular accident) Z86.73 Diabetes mellitus type 2 with complications E11.8 CAD (coronary artery disease) I25.10 Hyperlipidemia E78.5 Hypertension I10 Hypothyroidism E03.9 Restless legs G25.81 Hyponatremia E87.1 Metabolic acidosis E87.2 Chronic kidney disease, stage 3a N18.31 Recurrent urinary tract infection N39.0 Mitral stenosis and incompetence I05.2 Aortic stenosis I35.0 Acute blood loss anemia D62
[2021-08-04 21:00] LABS: Basophils # (auto) 0.01 K/uL (0-0.2); Basophils % (auto) 0.2 %; Eosinophils # (auto) 0.09 K/uL (0-0.5); Eosinophils % (auto) 1.5 %; Hematocrit (blood only) 26.1 % (37-47); Hemoglobin 8.8 g/dL (12.0-16.0); Immature Granulocytes # (auto) 0.01 K/uL (0.00-0.02); Immature Granulocytes % (auto) 0.2 %; Lymphocytes # (auto) 0.34 K/uL (1.2-3.4); Lymphocytes % (auto) 5.6 %; Mean Corpuscular Hemoglobin 32.2 pg (25-34); Mean Corpuscular Hgb Conc 33.7 g/dL (32-36); Mean Corpuscular Volume 95.6 fL (80-100); Mean Platelet Volume 9.9 fL (7.4-10.4); Monocytes # (auto) 0.31 K/uL (0.11-0.59); Monocytes % (auto) 5.1 %; Neutrophils # (auto) 5.31 K/uL (1.4-6.5); Neutrophils % (auto) 87.4 %; Platelet Count 146 K/uL (130-400); RDW Coefficient of Variation 14.1 % (11.5-14.5); RDW Standard Deviation 49.7 fL (36.4-46.3); Red Blood Count 2.73 M/uL (4.2-5.4); White Blood Count 6.07 K/uL (4.8-10.8)
[2021-08-04] MEDS ORDERED: ATORVASTATIN 10 MG TAB PO SCH (21:00)
[2021-08-04] MEDS ORDERED: rOPINIRole HCL 0.25 MG TABLET PO SCH (21:00)
[2021-08-04] MEDS ORDERED: INSULIN ASPART PER UNIT SC SCH (21:00)
[2021-08-05] MEDS ORDERED: Nursing to Pharmacy Communication SCH (00:15)
[2021-08-05] MEDS: PANTOprazole 40 MG in DEXTROSE 5% 100 ML IV SCH ×3 (00:29→10:48)
[2021-08-05] MEDS: LEVOTHYROXINE SODIUM 112 MCG TABLET PO SCH (05:37)
[2021-08-05] MEDS: INSULIN ASPART PER UNIT SC SCH ×2 (06:01→14:46)
[2021-08-05 07:30] LABS: Basophils # (auto) 0.01 K/uL (0-0.2); Basophils % (auto) 0.1 %; Eosinophils # (auto) 0.09 K/uL (0-0.5); Eosinophils % (auto) 1.3 %; Hematocrit (blood only) 26.2 % (37-47); Hemoglobin 8.8 g/dL (12.0-16.0); Immature Granulocytes # (auto) 0.01 K/uL (0.00-0.02); Immature Granulocytes % (auto) 0.1 %; Lymphocytes # (auto) 0.37 K/uL (1.2-3.4); Lymphocytes % (auto) 5.5 %; Mean Corpuscular Hemoglobin 32.2 pg (25-34); Mean Corpuscular Hgb Conc 33.6 g/dL (32-36); Mean Platelet Volume 9.5 fL (7.4-10.4); Monocytes # (auto) 0.43 K/uL (0.11-0.59); Monocytes % (auto) 6.4 %; Neutrophils # (auto) 5.77 K/uL (1.4-6.5); Neutrophils % (auto) 86.6 %; Platelet Count 153 K/uL (130-400); RDW Coefficient of Variation 13.9 % (11.5-14.5); RDW Standard Deviation 48.7 fL (36.4-46.3); Red Blood Count 2.73 M/uL (4.2-5.4); White Blood Count 6.68 K/uL (4.8-10.8)
[2021-08-05 07:55] LABS: BUN Creatinine Ratio 55.3 (10-20); Creatinine Clr Calc Pharmacy 23.2 ml/min; Est GFR (African American) 36.4 ml/min; Est GFR (Non-African American) 31.4 ml/min; Magnesium 2.4 mg/dl (1.7-2.4); Potassium 4.6 mmol/L (3.5-5.1)
--- NOTE | 2021-08-05 08:15 | Communication Note ---
Date of Service: August 05, 2021 Patient is hospitalized with anemia. H/H stable this AM at 8.8/26.2. No acute GI bleeding. EGD was cancelled yesterday due to rising troponins. Would defer inpatient endoscopy at this time. Would advise Protonix 40 mg BID. Can follow-up as an outpatient for further recommendations. Agree with BE Luke as above Continue current therapy and supportive care Followup in our office in 2 weeks.
[2021-08-05] MEDS ORDERED: amLODIPine BESYLATE 5 MG TAB PO SCH (09:00)
[2021-08-05] MEDS: BETHANECHOL CHL 25 MG TAB PO SCH (09:10)
[2021-08-05] MEDS: DOCUSATE SODIUM 100 MG CAP PO SCH (09:10)
[2021-08-05] MEDS: SERTRALINE HCL 50 MG TABLET PO SCH (09:11)
[2021-08-05] MEDS: DOXAZosin MESYLATE 4 MG TAB PO SCH (09:11)
[2021-08-05] MEDS: INSULIN GLARGINE SOLOSTAR 100 UNITS/ML 3 ML PEN SC SCH (09:11)
[2021-08-05] MEDS: TAMSULOSIN HCL 0.4 MG CAP PO SCH (13:18)
[2021-08-05] MEDS: rOPINIRole HCL 0.25 MG TABLET PO SCH (13:18)
--- NOTE | 2021-08-05 13:31 | Discharge Summary ---
Date of Service August 05, 2021 Admission HPI Per Admitting Provider Sully Ray is an 81yo female with history of iron deficient anemia, anxiety, aortic stenosis, CAD, CHF, DM, GERD, HTN and HLP presenting to [facility] ER with symptomatic anemia. Patient reports progressive generalized weakness, fatigue and dyspnea on exertion over the last several weeks. She receives monthly infusions of iron sucrose through Hematology - last in July. She has also required transfusions in the past - patient believes last transfusion was in June. She denies melena or hematochezia but she does have black stools from taking iron supplementation. She denies abdominal pain, nausea, vomiting, hematemesis, dizziness or syncope. Denies hematuria, bruising or bleeding. Patient had an EGD performed on 08/17/2017 which revealed large hiatal hernia and gastritis. 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 ER course: Protonix bolus and drip, PRBCs ordered - establishing IV access at present Principal Diagnosis Acute blood loss anemia, GI bleed, MICHAEL Discharge Exam Constitutional WD/WN, vitals as above Eyes + anicteric sclerae Neck trachea midline, no thyromegaly Respiratory normal respiratory effort, lungs clear to auscultation Cardiovascular Rate/Rhythm: regular rate and regular rhythm Heart Sounds: normal S1, normal S2 and + murmur (3/6 systolic murmur at apex) Extremities: no edema Chest (Breasts) Chest: normal inspection of chest Gastrointestinal (Abdomen) normal bowel sounds, soft, nontender, no hepatosplenomegaly Musculoskeletal Extremities: extremities normal to inspection; no cyanosis and no clubbing Skin no rashes, warm and dry Neurologic moves all extremities and awake; no focal motor deficits Psychiatric A+Ox3, euthymic affect Lymphatic no lymphedema Discharge Data Allergies Allergy/AdvReac Type Severity Reaction Status Date / Time sulfamethoxazole AdvReac Unknown Verified 08/03/21 20:55 [From Bactrim] trimethoprim [From Bactrim] AdvReac Unknown Verified 08/03/21 20:55 Consultations 08/03/21 22:08 ED Decision to Admit Stat 08/04/21 00:28 Consult Gastroenterology Routine Procedures Performed Operation Date: 08/04/21 16:30 <No data on this case meets the specified criteria> Ordered Studies 08/03/21 20:08 CT head/brain wo con Stat Hospital Course (1) Acute blood loss anemia: 81yo female presenting with several weeks of progressive dyspnea, fatigue and weakness. Patient found with macrocytic anemia - Hgb of 6.5, Hct of 20 and MCV of 100.5 (from 9.3, 28.2 and 97.2, respectively on 06/29/21) . Last B12 on 06/15/21 = 1414 and Folate >22.3 Patient receiving IV Iron sucrose infusions monthly as well as B12 supplementation as well as occasional transfusion PRBCs. 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 Last EGD in August 2017 with hiatal hernia and gastritis. She denies active blood loss but does have dark stools which she attributes to her oral iron. She is Heme+ in the ER. With significantly elevated BUN on admission--> points towards UGI bleeding--> possible AVMs (patient with history of - may increase risk for GI AVMs) Hgb now up appropriately to 8.6 after 2 units PRBCs and stable from yesterday EGD planned by GI initially but cancelled due to mildly elevated troponin--since hgb remained stable again overnight, decision made by GI to not pursue EGD No obvious bleeding since admission, no abd pain Bleeding has stopped -remain off home Plavix until after CBC check on Sunday after discharge -received Protonix gtt and now convert to Protonix 40mg po bid (was on omeprazole at home which is not compatible with Plavix anyway) -f/u CBC as outpt in 3 days -tolerating reg diet on discharge -may need capsule endoscopy as outpt -continue home po FeSO4 (2) Elevated troponin: Patient with elevation of HS-troponin which peaked at 204 Denies chest pain. ECGs without ischemic changes Likely myocardial demand ischemia in setting of severe anemia, aortic stenosis, underlying CAD. NSTEMI/ACS ruled out -Telemetry monitoring was normal Patient also with elevation of BNP to 538 - blunting of CP angles on CXR, possible effusions. Question some acute on chronic HFpEF which is now resolved -Lasix 40mg IV after 1st unit PRBCs given -held home Lasix 40mg po BID now as travel clerk up to 1.7--> travel clerk now improving back to 1.5--> ok to continue home lasix 40mg po bid on dc (3) MICHAEL (acute kidney injury): Mild elevation in BUN and Cr from baseline. Possibly secondary to severe anemia travel clerk peaked at 1.7. 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 Patient has been very well controlled by A1C - ranging from 4.7 - 6.6 over the last two years. -restart home oral agents on discharge (7) CAD (coronary artery disease): With elevation of troponin. No chest pain -Transfusion 2u PRBCs -Hold Plavix with possible GIB-restart after hgb continues to be stable as outpt in 3 days -Continue Atorvastatin (8) History of CVA (cerebrovascular accident): No notable deficits -Hold Plavix with possible bleed -Continue Atorvastatin (9) Hyperlipidemia: Chronic -Continue Atorvastatin (10) Chronic kidney disease, stage 3a: sees Nephro, with MICHAEL as above (11) Hypertension: Chronic. BPsnormal -Will hold Losartan, but continue home amlodipine (12) Hypothyroidism: Chronic, TSH normal in 12/2020 -Continue Synthroid 112mcg po daily (13) Restless legs: Chronic. Stable on medications -Continue Ropinirole at home dose (14) Recurrent urinary tract infection: hold home Macrobid due to MICHAEL but can restart on discharge (15) Mitral stenosis and incompetence: follows with Cardio watch volume status (16) Aortic stenosis: mild DVT proph-SCDs, hold chemoproph due to bleeding Dispo-dc to home Total Time Total Time Spent Total Time Spent (In Minutes): 45 min Discharge Plan Discharge Items Patient Disposition: Home - Self-Care Reason For Visit: SYMPTOMATIC ANEMIA Discharge Diagnosis: Acute blood loss anemia, GI bleed Condition on Discharge: Good Activity: As commented below Lifting: Gradually increase as tolerated Bathing: No limitations Exercise/Sports: Gradually increase as tolerated Non-emergency contact: Primary Care Provider and Online Editor Call non-emergency contact if: you have any medication questions and your symptoms worsen Follow-up/Referrals: Orlando Davis, [Physician] - (Follow up within 1-2 weeks) Agatha Alfaro DO [Primary Care Provider] - (Follow up within 1 week) Diet: Carb Consistent or DM2 and Heart Healthy Ambulatory Orders: Basic Metabolic Panel (Routine) Timeframe: 3 Days Location: Determined by Patient Ordered By: Rylee Stanford Complete Blood Count with Diff (Timed) Timeframe: 3 Days Location: Determined by Patient Ordered By: Rylee Stanford Addtl Attending Provider Instructions: You were admitted with severe anemia and given a blood transfusion. The bleeding is coming from likely a slow leak in your intestines somewhere. Because your bleeding stopped, the Online Editor did not feel it was necessary to perform an endoscopy at this time. You may need a capsule endoscopy as an outpatient and the GI doctor can arrange this for you. These can only be done at the [facility] Gastroenterology and your GI doctor or your PCP can arrange this. You should continue taking the Protonix twice a day to help keep you from having any further bleeding in your stomach in case that was where the bleeding started. Please have your blood count checked on Sunday at the lab to keep an eye on your anemia. You should remain OFF your Plavix until after your blood count is repeated on Sunday. Dr. Alfaro will let you know if it is safe to restart it (as it is a blood thinner). You also had some slight injury to your kidneys from your blood loss. This has improved but is not quite back to normal yet.Please DO NOT TAKE your losartan until after you have repeat blood work on Sunday to check your kidney function. Dr. Alfaro will tell you if it is safe to restart your losartan. If you start to feel bad again or develop, weakness, shortness of breath, chest pain, lightheadedness, or bleeding from anywhere, please return to the hospital. Pending Studies at Discharge: No Stand-Alone Forms: My [facility] [address] Medications and DC Order Prescriptions: New pantoprazole [Protonix] 40 mg tablet,delayed release (DR/EC) 40 mg PO BID Qty: 60 RF: 0 Continued lancets [OneTouch Delica Plus Lancet] 33 gauge misc See Rx Instructions .ROUTE .COMPLEX Qty: 100 RF: 3 (DME) Blood Glucose Test Strip See Rx Instructions .ROUTE .MEDSUPPLY Qty: 100 RF: 5 glipizide 5 mg tablet 5 mg PO QAM Qty: 90 RF: 1 Hold Instructions: low glucose methocarbamol 500 mg tablet 500 mg PO TID PRN (Reason: muscle spasm) Qty: 90 RF: 1 furosemide [Lasix] 40 mg tablet 40 mg PO BID Qty: 180 RF: 1 levothyroxine [Synthroid] 112 mcg tablet 112 mcg PO DAILYBB Qty: 90 RF: 1 bethanechol chloride 50 mg tablet 50 mg PO BID Qty: 180 RF: 3 atorvastatin [Lipitor] 10 mg tablet 10 mg PO HS Qty: 90 RF: 1 Tradjenta 5 mg tablet 5 mg PO QAM Qty: 90 RF: 1 ropinirole 0.5 mg tablet See Rx Instructions PO .COMPLEX Qty: 360 RF: 1 triamcinolone acetonide 0.5 % cream 1 applic topical BID PRN (Reason: skin irritation) Qty: 60 RF: 1 amlodipine [Norvasc] 10 mg tablet 10 mg PO QAM Qty: 90 RF: 1 tramadol [Ultram] 50 mg tablet 50 mg PO BID PRN (Reason: pain) Qty: 60 RF: 0 doxazosin 4 mg tablet 4 mg PO DAILY RF: 0 ferrous sulfate 325 mg (65 mg iron) tablet 325 mg PO BID Qty: 60 RF: 6 sertraline 25 mg tablet 25 mg PO DAILY Qty: 30 RF: 2 vitamin E 1,000 unit Capsule 1,000 unit PO QAM RF: 0 cholecalciferol (vitamin D3) [Vitamin D3] 1,000 unit Capsule 1,000 unit PO QAM RF: 0 Calcium 600 + D(3) 600 mg calcium- 200 unit Capsule 1 cap PO QAM RF: 0 [place]-3 Fish Oil 300-1,000 mg Capsule 1 cap PO QAM RF: 0 Azo Cranberry 250 mg Tablet,Chewable 500 mg PO QAM RF: 0 acetaminophen [Tylenol Extra Strength] 500 mg Tablet 500 mg PO Q6H PRN (Reason: Pain) RF: 0 ascorbic acid (vitamin C) [Vitamin C] 500 mg Tablet 1,000 mg PO QAM RF: 0 docusate sodium [Colace] 100 mg Capsule 100 mg PO QAM RF: 0 nitrofurantoin monohyd/m-cryst [Macrobid] 100 mg capsule 100 cap PO QAM RF: 0 cyanocobalamin (vitamin B-12) [Vitamin B-12] 1,000 mcg tablet 1,000 mcg PO QAM RF: 0 tamsulosin [Flomax] 0.4 mg capsule 0.4 mg PO QAM RF: 0 magnesium oxide 400 mg magnesium tablet 500 mg PO QAM RF: 0 Discontinued losartan [Cozaar] 100 mg tablet 100 mg PO QAM Qty: 90 RF: 3 omeprazole 20 mg capsule,delayed release(DR/EC) 20 mg PO QAM Qty: 90 RF: 1 clopidogrel [Plavix] 75 mg tablet 75 mg PO QAM Qty: 90 RF: 1 Discharge Orders: Discharge Order (Routine); Ordered 08/05/21 Ordered By: Rylee Stanford Admission Data Admit Date/Time: 08/03/21 22:53 Attending Provider: Rylee Stanford Admit Provider: Shelley Novak Primary Care Provider: Agatha Alfaro Other Providers: Shelley Novak ; Orlando Davis Coding Level of Care Code D/C DAY MANAGEMENT >30 MINS Diagnoses Acute blood loss anemia D62 Elevated troponin R77.8 MICHAEL (acute kidney injury) N17.9 Hyponatremia E87.1 Metabolic acidosis E87.2 Diabetes mellitus type 2 with complications E11.8 CAD (coronary artery disease) I25.10 History of CVA (cerebrovascular accident) Z86.73 Hyperlipidemia E78.5 Chronic kidney disease, stage 3a N18.31 Hypertension I10 Hypothyroidism E03.9 Restless legs G25.81 Recurrent urinary tract infection N39.0 Mitral stenosis and incompetence I05.2 Aortic stenosis I35.0
== END 2021-08-05 17:23 | disposition home or self-care (01) | DRG 377 ==
LOC: ED 19:39 → EDINP 22:53 → SUATTDRO 22:53 → 2N 08-04 00:30

== ENCOUNTER 2021-08-14 15:45 | Inpatient (IN) ==
--- NOTE | 2021-08-14 15:53 | Emergency Department Note ---
Impression & Plan Acute exacerbation of CHF (congestive heart failure), Acute hyponatremia, MCKEON (dyspnea on exertion) ED Provider Note NAME: NIURKA QUIÑONES AGE: 81 SEX: F : 1940 ARRIVES VIA: Walk-In INFORMANT: Patient, ED PROVIDER(S): Martin Frazier MD Chief Complaint: Shortness of breath, weakness HPI: Patient presents due to concern for increasing weakness and exertional shortness of breath. The patient had been seen within the last week was recently discharged after being transfused thought to be secondary to GI bleed. Patient is currently not any blood thinning medications given this concern. The patient is on iron supplement. Patient was seen yesterday and had some weakness at that time the patient's blood counts were okay. The patient did have a bout of A. fib was offered admission versus close outpatient follow-up. Patient has had increasing weakness as well as shortness of breath with exertion today. The patient does sleep in a recliner and does believe that she can become orthopneic. Patient denies any cough. No prior history of DVT. The patient has had a 3 pound weight gain since yesterday and has had leg swelling. They were advised in the visit yesterday to consider increasing their Lasix and to follow-up. The patient did take her morning medications. Patient does complain of generalized weakness and no focal weakness slurred speech or facial droop. ROS: See HPI for pertinent positives and negatives. A total of 10 systems were reviewed and otherwise negative. Past medical history: See below Surgical history: See below Social history: See below Physical Exam: GENERAL: NAD, wearing glasses, wearing a mask, non-toxic. EYE EXAM: Normal conjunctiva. PERRL, no anisocoria and EOM's grossly intact w/o pain. OROPHARYNX: Moist mucus membranes. Grossly normal dentition. NECK: Supple, no nuchal rigidity, no adenopathy, non-tender. No signs of meningismus. LUNGS: Clear to auscultation. Normal chest wall mechanics. HEART: Irregularly irregular, systolic ejection murmur noted. ABDOMEN: Abdomen soft, non-tender, normo-active bowel sounds, no masses, no rebound or guarding. BACK: No CVA TTP. SKIN: No rashes and no bruising. UPPER EXTREMITIES: Upper extremities are grossly normal. LOWER EXTREMITIES: Grossly normal, 2+ symmetric lower extremity edema without erythema or calf pain, neurovascular intact distally with soft compartments. NEURO EXAM: A&O x3, cranial nerves II-XII grossly intact, normal speech, moves all 4 extremities on command w/o issue. No sensory deficits. Differential diagnoses: Reactive airway disease, pneumonia, pneumothorax, COPD, CHF, infections, cardiac ischemia, pulmonary embolism, musculoskeletal, gastrointestinal, as well as other pathologies. Course: Patient was seen and evaluated the bedside. Full history physical exam was performed. EKG interpreted by me Beto alfonso, rate of 66, wide QRS, right bundle branch block pattern. No significant change from comparison EKG completed August 13, 2021. Imaging Studies: See Below Cardiac monitoring: An order was placed for continuous cardiac monitoring. The monitor shows a rate of 68 with irregularly irregular rhythm. MDM: Patient presented due to concern for increasing MCKEON orthopnea and shortness of breath with associated weakness. The patient has had associated weight gain. Blood work is obtained along with an EKG troponin and chest x-ray. Patient's weight has increased even just from yesterday. Patient has a normal white count with a hemoglobin 9.2 which is holding steady. Platelet count is unremarkable. Kidney function at 1.9 with an elevated BUN at 96. This is not greatly changed from yesterday. Hypocalcemia noted. This was ordered for replacement. The patient does have elevation in troponin as well as BNP. Patient was ordered a dose of Lasix. Do believe the patient's hyponatremia is secondary to her volume overload. Chest x-ray consistent with volume overload with worsening congestion the patient does have bilateral pleural effusions I did speak with the on-call hospitalist Dr. Rose and the patient was admitted to the medicine service. Past Med/Surg History Medical History Anemia of chronic disease Anxiety Aortic stenosis CAD (coronary artery disease) Chronic back pain Chronic diastolic heart failure Chronic hyponatremia Chronic kidney disease, stage 3a Diabetes mellitus, type 2 Diabetic retinopathy Essential tremor MINOR IN HAND Fatty liver First degree AV block GERD without esophagitis Hearing deficit Hiatal hernia History of CVA (cerebrovascular accident) (2019) L lacunar infarct Hyperlipidemia Hypertension Hypothyroidism 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 On anticoagulant therapy Osteoarthritis RBBB Recurrent UTI Resistant hypertension Restless legs Stage 3b chronic kidney disease Urinary urgency Venous insufficiency Weakness Surgical History H/O varicose vein ligation History of back surgery (04/2010) X 2 History of bladder suspension procedure X 2 History of colonoscopy History of esophagogastroduodenoscopy (EGD) History of tooth extraction S/P carpal tunnel release RT/LEFT S/P hysterectomy ANDRIA S/P knee replacement RT/LEFT S/P trigger finger release Family History Father Alcohol abuse Heart disease Myocardial infarction Hypertension Sister Pancreatic cancer Diabetes Breast cancer Brother Diabetes Alcohol abuse Stroke Other Cancer No family history of adverse response to anesthesia Denies family history of Ovarian cancer Prostate cancer Colorectal cancer Social History Smoking Status: Never smoker Second Hand Exposure: No; Hx Alcohol Use: No Hx Substance Use: No Preferred Language: Chinese Communication Ability: Effective Visual Impairment: No Limitations Hearing Ability: Normal 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 Beliefs That Will Affect Care: None marital status: Single Current Living Situation: Alone current occupational status: retired How many Children do You have: 2 Feels Safe at Home: Yes Childhood Exposure to Second-Hand Smoke: No caffeine: Yes (Coffee x 2 cups per day.) during the past year weight has: remained stable Dental Care, Regularly: No Physical Activity Frequency: Does not Exercise Seatbelt Use: always Sunscreen Use: Yes Assistive Devices: Cane and Walker Allergies Allergies Allergy/AdvReac Type Severity Reaction Status Date / Time sulfamethoxazole AdvReac Unknown Verified 08/14/21 19:49 [From Bactrim] trimethoprim [From Bactrim] AdvReac Unknown Verified 08/14/21 19:49 Home Meds Home Medications Medication Instructions Recorded Confirmed calcium carbonate 600 mg-vitamin 1 cap PO QAM 05/29/18 08/14/21 D3 5 mcg (200 unit) capsule (Calcium 600 + D(3)) cholecalciferol (vitamin D3) 25 1,000 unit PO QAM 05/29/18 08/14/21 mcg (1,000 unit) capsule (Vitamin D3) cranberry fruit concentrate 250 mg 500 mg PO QAM 05/29/18 08/14/21 chewable tablet (Azo Cranberry) omega-3s 300 yo-mhi-duo-other 1 cap PO QAM 05/29/18 08/14/21 [id number] oil 1,000 mg capsule ([place]-3 Fish Oil) vitamin E 1,000 unit capsule 1,000 unit PO QAM 05/29/18 08/14/21 acetaminophen 500 mg tablet 500 mg PO Q6H PRN 11/12/20 08/14/21 (Tylenol Extra Strength) ascorbic acid (vitamin C) 500 mg 1,000 mg PO QAM 11/12/20 08/14/21 tablet (Vitamin C) cyanocobalamin (vitamin B-12) 1,000 mcg PO QAM 11/12/20 08/14/21 1,000 mcg tablet (Vitamin B-12) docusate sodium 100 mg capsule 100 mg PO QAM PRN 11/12/20 08/14/21 (Colace) nitrofurantoin 100 cap PO QAM 11/12/20 08/14/21 monohydrate/macrocrystals 100 mg capsule (Macrobid) tamsulosin 0.4 mg capsule (Flomax) 0.4 mg PO QAM 11/12/20 08/14/21 magnesium oxide 500 mg PO QAM tab 11/22/20 08/14/21 doxazosin 4 mg tablet 4 mg PO DAILY 07/13/21 08/14/21 sertraline 25 mg tablet 25 mg PO UD 08/14/21 08/14/21 Previous Rx's Medication Instructions Recorded blood sugar diagnostic (Blood #100 ea 10/12/20 Glucose Test) furosemide 40 mg tablet (Lasix) 40 mg PO BID #180 tab 03/28/21 levothyroxine 112 mcg tablet 112 mcg PO DAILYBB #90 tab 03/31/21 (Synthroid) bethanechol chloride 50 mg tablet 50 mg PO BID #180 tab 04/19/21 ferrous sulfate 325 mg (65 mg 325 mg PO BID #60 tab 04/21/21 iron) tablet atorvastatin 10 mg tablet (Lipitor) 10 mg PO HS #90 tab 04/25/21 linagliptin 5 mg tablet (Tradjenta) 5 mg PO QAM #90 tab 05/23/21 ropinirole 0.5 mg tablet See Rx Instructions PO .COMPLEX 05/23/21 #360 tab triamcinolone acetonide 0.5 % 1 applic TOPICAL BID PRN #60 g 06/24/21 topical cream amlodipine 10 mg tablet (Norvasc) 10 mg PO QAM #90 tab 07/08/21 tramadol 50 mg tablet (Ultram) 50 mg PO BID PRN #60 tab 07/14/21 pantoprazole 40 mg tablet,delayed 40 mg PO BID #60 tab 08/05/21 release (Protonix) methocarbamol 500 mg tablet 500 mg PO TID PRN #90 tab 08/11/21 Results & Data (ED) Vital Signs Vital Signs - 24 hr 08/14/21 15:46 08/14/21 16:01 08/14/21 16:38 Temperature 36.6 C Temperature Source Temporal Artery Scan Pulse Rate 66 Pulse Rate from SpO2 Sensor Respiratory Rate 18 Respiratory Effort / Characteristics Non-Labored Spontaneous Respiratory Depth Normal Respiratory Pattern Regular Blood Pressure 146/70 H Blood Pressure Mean 95 Blood Pressure Position Sitting Pulse Oximetry 98 97 Oxygen Delivery Method Room Air Room Air Sepsis Recent Fever Within 48 Hours No Sepsis New/Unexplained Change in Mental Status No Sepsis Action Taken by Nursing No Action Required 08/14/21 16:41 08/14/21 17:00 08/14/21 17:30 Temperature Temperature Source Pulse Rate 62 68 67 Pulse Rate from SpO2 Sensor 65 66 65 Respiratory Rate 24 21 22 Respiratory Effort / Characteristics Respiratory Depth Respiratory Pattern Blood Pressure 151/53 H 141/75 H Blood Pressure Mean 85 97 Blood Pressure Position Pulse Oximetry 98 97 97 Oxygen Delivery Method Sepsis Recent Fever Within 48 Hours Sepsis New/Unexplained Change in Mental Status Sepsis Action Taken by Nursing 08/14/21 18:00 08/14/21 18:30 Temperature Temperature Source Pulse Rate 63 65 Pulse Rate from SpO2 Sensor 63 64 Respiratory Rate 24 21 Respiratory Effort / Characteristics Respiratory Depth Respiratory Pattern Blood Pressure 137/53 L 138/47 L Blood Pressure Mean 81 77 Blood Pressure Position Pulse Oximetry 97 97 Oxygen Delivery Method Sepsis Recent Fever Within 48 Hours Sepsis New/Unexplained Change in Mental Status Sepsis Action Taken by Long Term Medications Current Medication List: was personally reviewed by me Laboratory Data Attestation: I reviewed the patient's lab results. Result diagrams: 08/14/21 16:20 08/14/21 16:20 Lab Results 08/14/21 08/14/21 08/14/21 Range/Units 16:20 16:20 16:20 WBC 9.54 (4.8-10.8) K/uL RBC 2.94 L (4.2-5.4) M/uL Hgb 9.2 L (12.0-16.0) g/dL Hct 27.9 L (37-47) % MCV 94.9 (80-100) fL MCH 31.3 (25-34) pg MCHC 33.0 (32-36) g/dL RDW Std Deviation 45.4 (36.4-46.3) fL RDW Coeff of Irasema 13.2 (11.5-14.5) % Plt Count 202 (130-400) K/uL MPV 10.5 H (7.4-10.4) fL Immature Gran % (Auto) 0.1 % Neut % (Auto) 89.8 % Lymph % (Auto) 3.2 % Wilcox % (Auto) 6.6 % Eos % (Auto) 0.2 % Baso % (Auto) 0.1 % Neut # (Auto) 8.56 H (1.4-6.5) K/uL Lymph # (Auto) 0.31 L (1.2-3.4) K/uL Wilcox # (Auto) 0.63 H (0.11-0.59) K/uL Eos # (Auto) 0.02 (0-0.5) K/uL Baso # (Auto) 0.01 (0-0.2) K/uL Immature Gran # (Auto) 0.01 (0.00-0.02) K/uL Echinocytes 1+ PT (9.0-12.0) Seconds INR (0.9-1.1) APTT (21.0-31.0) Seconds PTT Ratio Sodium 126 L (136-145) mmol/L Potassium 5.1 (3.5-5.1) mmol/L Chloride 99 (98-107) mmol/L Carbon Dioxide 16 L (21-32) mmol/L Anion Gap 11 (3-11) BUN 96 H (6-23) mg/dl Creatinine 1.91 H (0.6-1.2) mg/dl Est Cr Clr Drug Dosing Not Reportable Est GFR ( Amer) 27.6 ml/min Est GFR (Non-Af Amer) 23.8 ml/min BUN/Creatinine Ratio 50.3 H (10-20) Glucose 190 H (70-99(Fasting)) mg/dl Calcium 7.8 L (8.5-10.1) mg/dl Magnesium 2.3 (1.7-2.4) mg/dl Total Bilirubin 0.3 (0.2-1.0) mg/dl AST 14 (13-39) U/L ALT 15 (7-52) U/L Alkaline Phosphatase 294 H (34-104) U/L Troponin I High Sens 21.9 H (0-14) pg/ml B-Natriuretic Peptide 385 H (0-100) pg/ml Total Protein 5.7 L (6.0-8.3) gm/dl Albumin 3.4 (3.4-5.0) gm/dl Globulin 2.3 L (2.5-4.0) gm/dl Albumin/Globulin Ratio 1.5 (0.9-2) SARS-CoV-2, RNA, NAAT (NEGATIVE) 08/14/21 08/14/21 Range/Units 16:20 16:45 WBC (4.8-10.8) K/uL RBC (4.2-5.4) M/uL Hgb (12.0-16.0) g/dL Hct (37-47) % MCV (80-100) fL MCH (25-34) pg MCHC (32-36) g/dL RDW Std Deviation (36.4-46.3) fL RDW Coeff of Irasema (11.5-14.5) % Plt Count (130-400) K/uL MPV (7.4-10.4) fL Immature Gran % (Auto) % Neut % (Auto) % Lymph % (Auto) % Wilcox % (Auto) % Eos % (Auto) % Baso % (Auto) % Neut # (Auto) (1.4-6.5) K/uL Lymph # (Auto) (1.2-3.4) K/uL Wilcox # (Auto) (0.11-0.59) K/uL Eos # (Auto) (0-0.5) K/uL Baso # (Auto) (0-0.2) K/uL Immature Gran # (Auto) (0.00-0.02) K/uL Echinocytes PT 11.4 (9.0-12.0) Seconds INR 1.1 (0.9-1.1) APTT 27.8 (21.0-31.0) Seconds PTT Ratio 1.0 Sodium (136-145) mmol/L Potassium (3.5-5.1) mmol/L Chloride (98-107) mmol/L Carbon Dioxide (21-32) mmol/L Anion Gap (3-11) BUN (6-23) mg/dl Creatinine (0.6-1.2) mg/dl Est Cr Clr Drug Dosing Est GFR ( Amer) ml/min Est GFR (Non-Af Amer) ml/min BUN/Creatinine Ratio (10-20) Glucose (70-99(Fasting)) mg/dl Calcium (8.5-10.1) mg/dl Magnesium (1.7-2.4) mg/dl Total Bilirubin (0.2-1.0) mg/dl AST (13-39) U/L ALT (7-52) U/L Alkaline Phosphatase (34-104) U/L Troponin I High Sens (0-14) pg/ml B-Natriuretic Peptide (0-100) pg/ml Total Protein (6.0-8.3) gm/dl Albumin (3.4-5.0) gm/dl Globulin (2.5-4.0) gm/dl Albumin/Globulin Ratio (0.9-2) SARS-CoV-2, RNA, NAAT NEGATIVE (NEGATIVE) Administered Medications Discontinued Medications Acetaminophen (Acetaminophen 500 Mg Tab) 1,000 mg PO NOW STA Stop: 08/14/21 16:49 Last Admin: 08/14/21 17:03 Dose: 1,000 mg Documented by: [id number] Furosemide (Furosemide 40 Mg/4 Ml Vial) 40 mg IV ONE ONE Stop: 08/14/21 18:13 Last Admin: 08/14/21 18:43 Dose: 40 mg Documented by: [id number] Lidocaine (Lidocaine 5% 1 Patch) 1 patch TD NOW STA Stop: 08/14/21 16:49 Last Admin: 08/14/21 17:04 Dose: 1 patch Documented by: [id number] Imaging Data Radiologist's Impression: Chest X-Ray 08/14/21 16:05 XR chest 1V portable CLINICAL HISTORY: Dyspnea. COMPARISON STUDY: 08/13/2021 TECHNIQUE: 1 view of the chest FINDINGS: Single frontal view of the chest demonstrates the heart to again be enlarged. There is increased central vascular congestion. There is again evidence for small bilateral pleural effusions and bibasilar atelectasis . No confluent alveolar opacity are identified. There is no acute osseous pathology. IMPRESSION: 1. Compared to yesterday's examination, there is worsening of central vascular congestion. 2. There are again small bilateral pleural effusions and bibasilar atelectasis. ACT 112: Negative or not required by law. Electronically signed by: Jose Mo M.D. 08/14/2021 5:07 PM Discharge Plan Visit Data Chief Complaint: Shortness of Breath/Dyspnea Stated Complaint: SOB, WEAKNESS ED Provider: Martin Frazier Discharge Problem: Acute exacerbation of CHF (congestive heart failure), Acute hyponatremia, MCKEON (dyspnea on exertion) Patient Disposition: Admitted As Inpatient Discharge Instructions Interventions: ED Discharge Assessment Last Done: 08/14/21 20:13 Discharge Problem: Acute exacerbation of CHF (congestive heart failure) Qualifiers: Heart failure type: unspecified Qualified Code(s): I50.9 - Heart failure, unspecified
[2021-08-14 16:39] LABS: Hematocrit (blood only) 27.9 % (37-47); Hemoglobin 9.2 g/dL (12.0-16.0); Mean Corpuscular Hemoglobin 31.3 pg (25-34); Mean Corpuscular Volume 94.9 fL (80-100); Mean Platelet Volume 10.5 fL (7.4-10.4); Platelet Count 202 K/uL (130-400); RDW Coefficient of Variation 13.2 % (11.5-14.5); RDW Standard Deviation 45.4 fL (36.4-46.3); Red Blood Count 2.94 M/uL (4.2-5.4); White Blood Count 9.54 K/uL (4.8-10.8)
[2021-08-14] MEDS ORDERED: LIDOCAINE 5% 1 PATCH TD STA (16:48)
[2021-08-14] MEDS ORDERED: ACETAMINOPHEN 500 MG TAB PO STA (16:48)
[2021-08-14 16:56] LABS: INR 1.1 (0.9-1.1); Partial Thromboplastin Time 27.8 Seconds (21.0-31.0); Prothrombin Time 11.4 Seconds (9.0-12.0)
[2021-08-14 16:58] LABS: Basophils # (auto) 0.01 K/uL (0-0.2); Basophils % (auto) 0.1 %; Echinocytes 1+; Eosinophils # (auto) 0.02 K/uL (0-0.5); Eosinophils % (auto) 0.2 %; Immature Granulocytes # (auto) 0.01 K/uL (0.00-0.02); Immature Granulocytes % (auto) 0.1 %; Lymphocytes # (auto) 0.31 K/uL (1.2-3.4); Lymphocytes % (auto) 3.2 %; Monocytes # (auto) 0.63 K/uL (0.11-0.59); Monocytes % (auto) 6.6 %; Neutrophils # (auto) 8.56 K/uL (1.4-6.5); Neutrophils % (auto) 89.8 %
[2021-08-14 16:59] LABS: Alanine Aminotransferase 15 U/L (7-52); Albumin Globulin Ratio 1.5 (0.9-2); Albumin Level 3.4 gm/dl (3.4-5.0); Alkaline Phosphatase 294 U/L (34-104); Anion Gap 11 (3-11); Aspartate Aminotransferase 14 U/L (13-39); BUN Creatinine Ratio 50.3 (10-20); Bilirubin,Total 0.3 mg/dl (0.2-1.0); Blood Urea Nitrogen 96 mg/dl (6-23); Calcium 7.8 mg/dl (8.5-10.1); Carbon Dioxide 16 mmol/L (21-32); Chloride 99 mmol/L (98-107); Est GFR (African American) 27.6 ml/min; Est GFR (Non-African American) 23.8 ml/min; Globulin 2.3 gm/dl (2.5-4.0); Glucose 190 mg/dl (70-99(Fasting)); Magnesium 2.3 mg/dl (1.7-2.4); Potassium 5.1 mmol/L (3.5-5.1); Sodium 126 mmol/L (136-145); Total Protein 5.7 gm/dl (6.0-8.3)
[2021-08-14 17:04] LABS: Troponin I High Sensitivity 21.9 pg/ml (0-14)
--- NOTE | 2021-08-14 17:09 | XRay Report ---
XR chest 1V portable CLINICAL HISTORY: Dyspnea. COMPARISON STUDY: 08/13/2021 TECHNIQUE: 1 view of the chest FINDINGS: Single frontal view of the chest demonstrates the heart to again be enlarged. There is increased cent ral vascular congestion. There is again evidence for small bilateral pleural effusions and bibasilar atelectasis . No confluent alveolar opacity are identified. There is no acute osseous pathology. IMPRESSION: 1. Compared to yesterday's examination, there is worsening of central vascular congestion. 2. There are again small bilateral pleural effusions and bibasilar atelectasis. ACT 112: Negative or not required by law. Electronically signed by: Jose Mo M.D. 08/14/2021 5:07 PM
[2021-08-14] MEDS ORDERED: FUROSEMIDE 40 MG/4 ML VIAL IV ONE (18:12)
--- NOTE | 2021-08-14 18:22 | History & Physical Report ---
Date of Service August 14, 2021 Assessment & Plan (1) (HFpEF) heart failure with preserved ejection fraction: Plan: - Appears slightly hypervolemic today, with ongoing SOB, orthopnea. Vascular congestion noted on CXR. - Hold home p.o. Lasix, opt for 80 mg IV Lasix twice daily for now. - Repeat echo while inpatient. - Dry weight reported 159 pounds. - I&O's, daily weights. - Cardiology consulted. (2) Acute kidney injury superimposed on chronic kidney disease: Plan: - Cr 1.91, baseline 1.21.4. With CKD 3 - Suspect in the setting of hypervolemia, reduced perfusion. - Monitor BMP in a.m. labs, follow improvement with diuresis. - Avoid nephrotoxins, renally dose as able. (3) Hyponatremia: Plan: - 126, in setting of hypervolemia. May be contributing to general weakness. - Continue to follow on BMP anticipate improvement with diuresis. (4) Aortic stenosis: Plan: - Follows with cardiology, has been consulted while she is here. - Watch volume status. (5) Mitral stenosis and incompetence: Plan: - Follows with cardiology, has been consulted while she is here. - Watch volume status. (6) Diabetes mellitus type 2 with complications: Plan: - Per recent A1c's, is well controlled. They have been from 4.76.6 over the last 2 years. - Hold oral agents, cover with SSI w/out carb coverage. (7) CAD (coronary artery disease): Plan: - Chronic, stable. - Continue statin, antihypertensives, Plavix. - Troponin very minimally elevated lower than troponin from yesterday's ED visit. Likely mildly elevated in setting of MICHAEL/CKD and volume overload. - On telemetry. (8) History of CVA (cerebrovascular accident): Plan: - Continue Plavix. (9) Hyperlipidemia: Plan: - Continue statin. (10) Hypertension: Plan: - Continue amlodipine, hold losartan for now due to MICHAEL. (11) Hypothyroidism: Plan: - Continue levothyroxine. (12) Restless legs: Plan: - Continue ropinirole. (13) History of GI bleed: Plan: - Hospitalized earlier this month requiring 2 units of transfusion. EGD deferred at that time due to elevated troponin. Was thought it may be due to AVMs, she has increased risk for this due to her aortic stenosis. - Continue Protonix twice daily. - Hgb appears stable, continue to trend on a.m. labs. Plan: - Admit to med telemetry. - SCDs for DVT PPx. - DNR/DNI. History of Present Illness Chief Complaint: weakness, MCKEON x2 days Primary Care Provider: Agatha Alfaro DO Sully Ray is an 81 y/o F with PMH of CAD, HFpEF, aortic stenosis, hypertension, hyperlipidemia, DM2, GERD, iron deficiency anemia, and anxiety who presents today with worsening shortness of breath and weakness. She was recently discharged from the hospital last week on 09/01 after GI bleed requiring transfusion. Ever since then, she has become progressively more short of breath and generally weak. She does not have any fever chills, cough, no falls, and weakness is generalized and not focal to one limb or side. No numbness or tingling. She has not had any bloody bowel movements. She was seen in our ED yesterday for similar presentation, was found to be in A. fib and offered admission, however patient elected to return home and try increasing her Lasix dose from 40 mg to 60 mg. She states she did this this morning, however despite this she is struggling to breathe who presents for reevaluation. In ED, she is hypertensive 141/75 otherwise vital signs normal and stable. On room air. On labs, hemoglobin 9.2, sodium 126, BUN 96, creatinine 1.91 (baseline ~1.2 - 1.4), glucose 190, calcium 7.8, alk phos 294, hsTrop 21.9, BNP 385. COVID-negative. CXR with worsening central vascular congestion compared to yesterday's imaging, small bilateral pleural effusion and bibasilar atelectasis also noted. Allergies Allergy/AdvReac Type Severity Reaction Status Date / Time sulfamethoxazole AdvReac Unknown Verified 08/03/21 20:55 [From Bactrim] trimethoprim [From Bactrim] AdvReac Unknown Verified 08/03/21 20:55 Home Medications Medication Instructions Recorded Confirmed Type calcium carbonate 600 mg-vitamin 1 cap PO QAM 05/29/18 08/03/21 History D3 5 mcg (200 unit) capsule (Calcium 600 + D(3)) cholecalciferol (vitamin D3) 25 1,000 unit PO QAM 05/29/18 08/03/21 History mcg (1,000 unit) capsule (Vitamin D3) cranberry fruit concentrate 250 mg 500 mg PO QAM 05/29/18 08/03/21 History chewable tablet (Azo Cranberry) omega-3s 300 [id number] 1 cap PO QAM 05/29/18 08/03/21 History [id number] oil 1,000 mg capsule ([place]-3 Fish Oil) vitamin E 1,000 unit capsule 1,000 unit PO QAM 05/29/18 08/03/21 History lancets 33 gauge (OneTouch Delica See Rx Instructions .ROUTE 03/21/20 08/03/21 Rx Plus Lancet) .COMPLEX #100 ea blood sugar diagnostic (Blood #100 ea 10/12/20 08/03/21 Rx Glucose Test) acetaminophen 500 mg tablet 500 mg PO Q6H PRN 11/12/20 08/03/21 History (Tylenol Extra Strength) ascorbic acid (vitamin C) 500 mg 1,000 mg PO QAM 11/12/20 08/03/21 History tablet (Vitamin C) cyanocobalamin (vitamin B-12) 1,000 mcg PO QAM 11/12/20 08/03/21 History 1,000 mcg tablet (Vitamin B-12) docusate sodium 100 mg capsule 100 mg PO QAM 11/12/20 08/03/21 History (Colace) nitrofurantoin 100 cap PO QAM 11/12/20 08/03/21 History monohydrate/macrocrystals 100 mg capsule (Macrobid) tamsulosin 0.4 mg capsule (Flomax) 0.4 mg PO QAM 11/12/20 08/03/21 History magnesium oxide 500 mg PO QAM tab 11/22/20 08/03/21 History glipizide 5 mg tablet 5 mg PO QAM #90 tab 02/24/21 08/03/21 Rx furosemide 40 mg tablet (Lasix) 40 mg PO BID #180 tab 03/28/21 08/03/21 Rx levothyroxine 112 mcg tablet 112 mcg PO DAILYBB #90 tab 03/31/21 08/03/21 Rx (Synthroid) bethanechol chloride 50 mg tablet 50 mg PO BID #180 tab 04/19/21 08/03/21 Rx ferrous sulfate 325 mg (65 mg 325 mg PO BID #60 tab 04/21/21 08/03/21 Rx iron) tablet atorvastatin 10 mg tablet (Lipitor) 10 mg PO HS #90 tab 04/25/21 08/03/21 Rx linagliptin 5 mg tablet (Tradjenta) 5 mg PO QAM #90 tab 05/23/21 08/03/21 Rx ropinirole 0.5 mg tablet See Rx Instructions PO .COMPLEX 05/23/21 08/03/21 Rx #360 tab triamcinolone acetonide 0.5 % 1 applic TOPICAL BID PRN #60 g 06/24/21 08/03/21 Rx topical cream amlodipine 10 mg tablet (Norvasc) 10 mg PO QAM #90 tab 07/08/21 08/03/21 Rx doxazosin 4 mg tablet 4 mg PO DAILY 07/13/21 08/03/21 History tramadol 50 mg tablet (Ultram) 50 mg PO BID PRN #60 tab 07/14/21 08/03/21 Rx sertraline 25 mg tablet 25 mg PO DAILY #30 tab 07/27/21 08/03/21 Rx pantoprazole 40 mg tablet,delayed 40 mg PO BID #60 tab 08/05/21 Rx release (Protonix) methocarbamol 500 mg tablet 500 mg PO TID PRN #90 tab 08/11/21 Rx Past Med/Surg History Medical History Anemia of chronic disease Anxiety Aortic stenosis CAD (coronary artery disease) Chronic back pain Chronic diastolic heart failure Chronic hyponatremia Chronic kidney disease, stage 3a Diabetes mellitus, type 2 Diabetic retinopathy Essential tremor MINOR IN HAND Fatty liver First degree AV block GERD without esophagitis Hearing deficit Hiatal hernia History of CVA (cerebrovascular accident) (2019) L lacunar infarct Hyperlipidemia Hypertension Hypothyroidism 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 On anticoagulant therapy Osteoarthritis RBBB Recurrent UTI Resistant hypertension Restless legs Stage 3b chronic kidney disease Urinary urgency Venous insufficiency Weakness Surgical History H/O varicose vein ligation History of back surgery (04/2010) X 2 History of bladder suspension procedure X 2 History of colonoscopy History of esophagogastroduodenoscopy (EGD) History of tooth extraction S/P carpal tunnel release RT/LEFT S/P hysterectomy ANDRIA S/P knee replacement RT/LEFT S/P trigger finger release Family History Father Alcohol abuse Heart disease Myocardial infarction Hypertension Sister Pancreatic cancer Diabetes Breast cancer Brother Diabetes Alcohol abuse Stroke Other Cancer No family history of adverse response to anesthesia Denies family history of Ovarian cancer Prostate cancer Colorectal cancer Social History Smoking Status: Never smoker Second Hand Exposure: No; Hx Alcohol Use: No Hx Substance Use: No Preferred Language: Palestinian Communication Ability: Effective Visual Impairment: No Limitations Hearing Ability: Normal Contestant Coordinator Required: No Beliefs That Will Affect Care: None marital status: Single Current Living Situation: Alone current occupational status: retired How many Children do You have: 2 Feels Safe at Home: Yes Childhood Exposure to Second-Hand Smoke: No caffeine: Yes (Coffee x 2 cups per day.) during the past year weight has: remained stable Dental Care, Regularly: No Physical Activity Frequency: Does not Exercise Seatbelt Use: always Sunscreen Use: Yes Assistive Devices: Cane and Walker Review of Systems Review of Systems: Constitutional: reports general weakness; No fever/chills, fatigue, myalgias, anorexia, night sweats Eyes: No diplopia, no worsening or blurred vision ENT: normal hearing, no trouble swallowing Respiratory: reports progressive MCKEON with difficulty breathing when not upright; No cough, sputum, dyspnea at rest Cardiovascular: No chest pain, tightness or palpitations Abdomen: No pain, nausea, vomiting, diarrhea or constipation : Denies dysuria, hematuria, increased urgency/frequency, urinary retention Musculoskeletal: No joint pain, calf pain, swelling Neurologic: No weakness, numbness/tingling, or balance problems Psychiatric: No anxiety or depression Skin: No rash or itch Physical Exam Physical Exam: General: awake, alert, no apparent distress Head: Normocephalic, atraumatic ENT: PERRL, EOMI, no pharyngeal exudate, mucous membranes moist Chest: dmiinihses breath sounds at b/l lung bases; otherwise Clear to auscultation, on room air Cardiac: Regular rate and rhythm, no murmur, no JVD, normal peripheral pulses, good capillary refill Abdominal: NABS x 4 quadrants, soft, nontender to palpation, no rebound, guarding or tenderness Extremities: 1+ b/l LE edema; otherwise normal inspection, no peripheral erythema, calfs nontender to palpation Psych: Normal mood and affect Neuro: AAO x 3, strength intact bilaterally and rated 5/5, no motor deficits, speech is clear, no peripheral sensory deficits Skin: no rash or erythema Results & Data Results & Data ([facility]) Vital Signs (Past 12 Hours) Vital Signs Temp Pulse Resp BP Pulse Ox 08/14/21 17:30 67 22 141/75 H 97 08/14/21 17:00 68 21 151/53 H 97 08/14/21 16:41 62 24 98 08/14/21 16:38 97 08/14/21 15:46 36.6 C 66 18 146/70 H 98 Laboratory Results Abnormal lab results 08/14/21 08/14/21 08/14/21 Range/Units 16:20 16:20 16:20 RBC 2.94 L (4.2-5.4) M/uL Hgb 9.2 L (12.0-16.0) g/dL Hct 27.9 L (37-47) % MPV 10.5 H (7.4-10.4) fL Neut # (Auto) 8.56 H (1.4-6.5) K/uL Lymph # (Auto) 0.31 L (1.2-3.4) K/uL [place] # (Auto) 0.63 H (0.11-0.59) K/uL Sodium 126 L (136-145) mmol/L Carbon Dioxide 16 L (21-32) mmol/L BUN 96 H (6-23) mg/dl Creatinine 1.91 H (0.6-1.2) mg/dl BUN/Creatinine Ratio 50.3 H (10-20) Glucose 190 H (70-99(Fasting)) mg/dl Calcium 7.8 L (8.5-10.1) mg/dl Alkaline Phosphatase 294 H (34-104) U/L Troponin I High Sens 21.9 H (0-14) pg/ml B-Natriuretic Peptide 385 H (0-100) pg/ml Total Protein 5.7 L (6.0-8.3) gm/dl Globulin 2.3 L (2.5-4.0) gm/dl Diagnostic Findings Chest X-Ray 08/14/21 16:05 XR chest 1V portable CLINICAL HISTORY: Dyspnea. COMPARISON STUDY: 08/13/2021 TECHNIQUE: 1 view of the chest FINDINGS: Single frontal view of the chest demonstrates the heart to again be enlarged. There is increased central vascular congestion. There is again evidence for small bilateral pleural effusions and bibasilar atelectasis . No confluent alveolar opacity are identified. There is no acute osseous pathology. IMPRESSION: 1. Compared to yesterday's examination, there is worsening of central vascular congestion. 2. There are again small bilateral pleural effusions and bibasilar atelectasis. ACT 112: Negative or not required by law. Electronically signed by: Jose Mo M.D. 08/14/2021 5:07 PM Code Status & VTE Plan Code Status DNR/DNI. Supervising Physician Co-Signing Physician Notes Patient seen and examined with EDDIE, reviewed her documentation and agree with the note above. This is an 81-year-old female with past medical history of diastolic CHF, moderate MS VALERIO that presents complaining of shortness of breath. Patient was actually in the ER on 08/13, did not want to be admitted and was therefore given IV Lasix and sent home. However, she continues to have worsening weaknes along with SOB/MCKEON. Patient appears to be moderately fluid overloaded on exam, has some fine rales at bases. 1-2+ pitting edema lower extremities but she does have compression socks on. Renal exam as noted above. I did review the 2D echo from December 2020. Plan to continue IV Lasix at 80 mg IV every 12 hours. Monitor I's and O's along with daily weights. I will repeat 2D echo. Patient follows with Dr. Agudelo as an outpatient and we will consult him for further recommendations here. PG Care Time/CCT Total # of Minutes Spent Total Time Spent with Patient: Total time spent is greater than 50% in coordination of care (as documented) at patient's floor/unit and/or counseling patient: Coding Level of Care Code 29291 Initial Inpt Care Lvl 3 Diagnoses (HFpEF) heart failure with preserved ejection fraction I50.30 Aortic stenosis I35.0 Acute kidney injury superimposed on chronic kidney disease N17.9; N18.9 Diabetes mellitus type 2 with complications E11.8 CAD (coronary artery disease) I25.10 History of CVA (cerebrovascular accident) Z86.73 Hyperlipidemia E78.5 Hypertension I10 Hypothyroidism E03.9 Restless legs G25.81 Mitral stenosis and incompetence I05.2 Hyponatremia E87.1 History of GI bleed Z87.19
[2021-08-14] MEDS ORDERED: GLUCOSE 40% GEL 15 GM TUBE PO PRN (20:42)
[2021-08-14] MEDS ORDERED: CARBOHYDRATES FOR HYPOGLYCEMIA PO PRN (20:42)
[2021-08-14] MEDS ORDERED: DEXTROSE 50% 50 ML SYRINGE IV PRN (20:42)
[2021-08-14] MEDS ORDERED: GLUCOSE 10 TABS/TUBE PO PRN (20:42)
[2021-08-14] MEDS ORDERED: POLYETHYLENE (MIRALAX) 17 GM PACK PO PRN (20:42)
[2021-08-14] MEDS ORDERED: GLUCAGON FOR INJ 1 MG VIAL SQ PRN (20:42)
[2021-08-14] MEDS ORDERED: FUROSEMIDE 40 MG/4 ML VIAL IV SCH (21:00)
[2021-08-14] MEDS: INSULIN ASPART PER UNIT SC SCH (21:41)
[2021-08-14] MEDS: HEPARIN SOD 5,000 UNIT/0.5 ML VIAL SQ SCH (21:44)
[2021-08-14] MEDS: PANTOprazole 40 MG TAB PO SCH (21:46)
[2021-08-14] MEDS: BETHANECHOL CHL 25 MG TAB PO SCH (21:46)
[2021-08-14] MEDS: rOPINIRole HCL 1 MG TABLET PO SCH (21:47)
[2021-08-14] MEDS: ATORVASTATIN 10 MG TAB PO SCH (21:47)
[2021-08-14] MEDS: FERROUS SULFATE 325 MG TAB PO SCH (21:47)
[2021-08-14] MEDS ORDERED: Nursing to Pharmacy Communication SCH (23:00)
[2021-08-14] MEDS ORDERED: PNEUMOCOCCAL Polysaccharide Vaccine 25mcg/0.5mL vial/Syr IM ONE (23:00)
[2021-08-14] MEDS: traMADol HCL 50 MG TABLET PO PRN (23:17)
[2021-08-15] MEDS ORDERED: HYDROCORTISONE HC 2.5% CRM 30GM TUBE EXT ONE (03:36)
[2021-08-15] MEDS: LEVOTHYROXINE SODIUM 112 MCG TABLET PO SCH (05:59)
[2021-08-15] MEDS: HEPARIN SOD 5,000 UNIT/0.5 ML VIAL SQ SCH ×2 (06:00→22:18)
[2021-08-15] MEDS: TAMSULOSIN HCL 0.4 MG CAP PO SCH (07:50)
[2021-08-15] MEDS: amLODIPine BESYLATE 5 MG TAB PO SCH (07:51)
[2021-08-15] MEDS: SERTRALINE HCL 50 MG TABLET PO SCH (07:52)
[2021-08-15] MEDS: PANTOprazole 40 MG TAB PO SCH ×2 (07:52→22:21)
[2021-08-15] MEDS: BETHANECHOL CHL 25 MG TAB PO SCH ×2 (07:53→22:17)
[2021-08-15] MEDS: FERROUS SULFATE 325 MG TAB PO SCH ×2 (07:54→22:20)
[2021-08-15] MEDS: CALCIUM 600MG + VIT D 400 IU TAB PO SCH (07:55)
[2021-08-15] MEDS: DOCUSATE SODIUM 100 MG CAP PO SCH (07:55)
[2021-08-15] MEDS: DOXAZosin MESYLATE 4 MG TAB PO SCH (07:55)
[2021-08-15 08:22] LABS: Basophils # (auto) 0.01 K/uL (0-0.2); Basophils % (auto) 0.1 %; Eosinophils # (auto) 0.02 K/uL (0-0.5); Eosinophils % (auto) 0.2 %; Hematocrit (blood only) 27.2 % (37-47); Hemoglobin 8.9 g/dL (12.0-16.0); Immature Granulocytes # (auto) 0.02 K/uL (0.00-0.02); Immature Granulocytes % (auto) 0.2 %; Lymphocytes # (auto) 0.37 K/uL (1.2-3.4); Lymphocytes % (auto) 3.1 %; Mean Corpuscular Hemoglobin 30.8 pg (25-34); Mean Corpuscular Hgb Conc 32.7 g/dL (32-36); Mean Corpuscular Volume 94.1 fL (80-100); Mean Platelet Volume 10.5 fL (7.4-10.4); Monocytes # (auto) 0.53 K/uL (0.11-0.59); Monocytes % (auto) 4.5 %; Neutrophils # (auto) 10.83 K/uL (1.4-6.5); Neutrophils % (auto) 91.9 %; Platelet Count 236 K/uL (130-400); RDW Coefficient of Variation 13.3 % (11.5-14.5); RDW Standard Deviation 46.4 fL (36.4-46.3); Red Blood Count 2.89 M/uL (4.2-5.4); White Blood Count 11.78 K/uL (4.8-10.8)
[2021-08-15 08:45] LABS: BUN Creatinine Ratio 48.8 (10-20); Calcium 7.7 mg/dl (8.5-10.1); Chol HDL Ratio 2.5 (0-5); Est GFR (African American) 24.7 ml/min; Est GFR (Non-African American) 21.4 ml/min; Magnesium 2.4 mg/dl (1.7-2.4); Potassium 5.2 mmol/L (3.5-5.1)
[2021-08-15] MEDS ORDERED: glipiZIDE 5 MG TAB PO SCH (09:00)
[2021-08-15] MEDS: INSULIN ASPART PER UNIT SC SCH ×4 (09:02→22:43)
--- NOTE | 2021-08-15 09:41 | XCELERA ---
[id number]
[2021-08-15 09:57] LABS: Estimated Average Glucose 100 mg/dl; Hemoglobin A1C 5.1 % (4.5-5.6)
--- NOTE | 2021-08-15 11:48 | Electrocardiogram Report ---
Test Reason : Blood Pressure : / mmHG Vent. Rate : 066 BPM Atrial Rate : 089 BPM P-R Int : 000 ms QRS Dur : 126 ms QT Int : 432 ms P-R-T Axes : 000 000 013 degrees QTc Int : 452 ms Atrial fibrillation Right bundle branch block Abnormal ECG When compared with ECG of 13-AUG-2021 16:29, No significant change was found Confirmed by Ronald Moura ([id number]) on 08/15/2021 11:48:17 AM Referred By: REFERRED SELF Confirmed By:Chris Moura
[2021-08-15] MEDS: ONDANSETRON INJ 2 MG/ML 2 ML VIAL IV PRN ×2 (11:55→23:39)
--- NOTE | 2021-08-15 13:51 | Cardiology Consultation ---
Date of Consultation August 15, 2021 Assessment & Plan (1) MCKEON (dyspnea on exertion): (2) Atrial fibrillation, new onset: (3) CAD (coronary artery disease): (4) Aortic stenosis: (5) Mitral stenosis and incompetence: (6) Elevated troponin: (7) Pericardial effusion: 1. Dyspnea on exertion: This appears to be 1 of her main complaints. This is in the setting of significant fatigue in general exercise intolerance. She has preserved LV systolic function but seems to be at risk for diastolic heart failure. Transition to atrial fibrillation certainly could have exacerbated any underlying LV filling dynamics. However, she has evidence of intravascular depletion with progressively declining renal function and increasing BUN. She has an element of mild lower extremity edema. BNP is actually improved from prior admission. I think we need to confirm her left ventricular filling pressures. The easiest way would be right heart catheterization. This will also give us some information regarding right ventricular filling pressures and dynamic surrounding her currently identified pericardial effusion. 2. Valvular heart disease: Degree of mitral stenosis and aortic stenosis appear unchanged from December of 2020. Unlikely to be playing a role in her current symptoms 3. Atrial fibrillation: She appears have transition to atrial fibrillation sometime in the recent past. Perhaps this accounts for some of her symptoms. She truly has some diastolic heart failure in the and transition to atrial fibrillation can exacerbate that problem. Overall heart rates controlled which suggests an element of AV node dysfunction. She was noted to have significant first-degree AV block on prior EKGs. Not on other rate control agents. Perhaps return to sinus rhythm would improve her symptoms. With respect to stroke risk reduction, she would benefit from systemic anticoagulation. However, given her chronic anemia and concerns over bleeding AVMs she may not be a good candidate for long-term anticoagulation. She previously been administered Plavix which is currently being held. 4. Pericardial effusion: Newly identified. Likely not acute given her hemodynamic stability. Unclear what role this place in her symptoms. She is not tachycardic and blood pressure has been normal. There is no evidence of right ventricular or right atrial collapse on echocardiography although she does have a dilated IVC. The etiology of her effusion is also unclear. Possibly inflammatory. Possibly related to uremia. I do not believe there is any urgent indication for pericardiocentesis. 5. Elevated troponin: Actually trending downward from prior admission. No evidence of a recent ACS. Wall motion was normal on her echocardiogram. History of Present Illness Reason for Consultation: Dyspnea Requesting Physician: Alexus Attending Physician: Lux Aranda MD History of Present Illness The patient is an 81-year-old woman with a complex medical history to include chronic anemia, recent gastrointestinal hemorrhage, nonobstructive coronary, aortic and mitral stenosis and recently discovered atrial fibrillation. She was hospitalized at the beginning of the month with symptomatic anemia. Hemoglobin at that time was 6.5. She is known to have chronic bleeding felt to be related to AV malformations. She did undergo a transfusion. Apparently her symptoms improved and she was discharged home. The patient states that for about a week she was able to resume her usual activities. This involves using a wheeled walker at home. She denies any exertional symptoms at that time. But slowly she became more fatigued and tired. She has difficulty performing her usual activities now due to an element of fatigue and dyspnea with activity. She states that as soon as she rests her symptoms resolved. She did not endorse symptoms chest discomfort. She has not been aware of any palpitations. She did not report dizziness or lightheadedness. She did not report orthopnea but generally sleeps in a recliner. She is doing this for many years. She has not feel that she has urinated as frequently as she usually does with her diuretic therapy. She has not noticed any worsening edema in her lower extremities. She feels that her weight has increased. Allergies Allergy/AdvReac Type Severity Reaction Status Date / Time sulfamethoxazole AdvReac Unknown Verified 08/14/21 19:49 [From Bactrim] trimethoprim [From Bactrim] AdvReac Unknown Verified 08/14/21 19:49 Home Medications Medication Instructions Recorded Confirmed Type calcium carbonate 600 mg-vitamin 1 cap PO QAM 05/29/18 08/14/21 History D3 5 mcg (200 unit) capsule (Calcium 600 + D(3)) cholecalciferol (vitamin D3) 25 1,000 unit PO QAM 05/29/18 08/14/21 History mcg (1,000 unit) capsule (Vitamin D3) cranberry fruit concentrate 250 mg 500 mg PO QAM 05/29/18 08/14/21 History chewable tablet (Azo Cranberry) omega-3s 300 qg-ifg-eud-other 1 cap PO QAM 05/29/18 08/14/21 History [id number] oil 1,000 mg capsule (Anita-3 Fish Oil) vitamin E 1,000 unit capsule 1,000 unit PO QAM 05/29/18 08/14/21 History blood sugar diagnostic (Blood #100 ea 10/12/20 08/03/21 Rx Glucose Test) acetaminophen 500 mg tablet 500 mg PO Q6H PRN 11/12/20 08/14/21 History (Tylenol Extra Strength) ascorbic acid (vitamin C) 500 mg 1,000 mg PO QAM 11/12/20 08/14/21 History tablet (Vitamin C) cyanocobalamin (vitamin B-12) 1,000 mcg PO QAM 11/12/20 08/14/21 History 1,000 mcg tablet (Vitamin B-12) docusate sodium 100 mg capsule 100 mg PO QAM PRN 11/12/20 08/14/21 History (Colace) nitrofurantoin 100 cap PO QAM 11/12/20 08/14/21 History monohydrate/macrocrystals 100 mg capsule (Macrobid) tamsulosin 0.4 mg capsule (Flomax) 0.4 mg PO QAM 11/12/20 08/14/21 History magnesium oxide 500 mg PO QAM tab 11/22/20 08/14/21 History furosemide 40 mg tablet (Lasix) 40 mg PO BID #180 tab 03/28/21 08/14/21 Rx levothyroxine 112 mcg tablet 112 mcg PO DAILYBB #90 tab 03/31/21 08/14/21 Rx (Synthroid) bethanechol chloride 50 mg tablet 50 mg PO BID #180 tab 04/19/21 08/14/21 Rx ferrous sulfate 325 mg (65 mg 325 mg PO BID #60 tab 04/21/21 08/14/21 Rx iron) tablet atorvastatin 10 mg tablet (Lipitor) 10 mg PO HS #90 tab 04/25/21 08/14/21 Rx linagliptin 5 mg tablet (Tradjenta) 5 mg PO QAM #90 tab 05/23/21 08/14/21 Rx ropinirole 0.5 mg tablet See Rx Instructions PO .COMPLEX 05/23/21 08/14/21 Rx #360 tab triamcinolone acetonide 0.5 % 1 applic TOPICAL BID PRN #60 g 06/24/21 08/14/21 Rx topical cream amlodipine 10 mg tablet (Norvasc) 10 mg PO QAM #90 tab 07/08/21 08/14/21 Rx doxazosin 4 mg tablet 4 mg PO DAILY 07/13/21 08/14/21 History tramadol 50 mg tablet (Ultram) 50 mg PO BID PRN #60 tab 07/14/21 08/14/21 Rx pantoprazole 40 mg tablet,delayed 40 mg PO BID #60 tab 08/05/21 08/14/21 Rx release (Protonix) methocarbamol 500 mg tablet 500 mg PO TID PRN #90 tab 08/11/21 08/14/21 Rx sertraline 25 mg tablet 25 mg PO UD 08/14/21 08/14/21 History Patient History Medical History Anemia of chronic disease Anxiety Aortic stenosis CAD (coronary artery disease) Chronic back pain Chronic diastolic heart failure Chronic hyponatremia Chronic kidney disease, stage 3a Diabetes mellitus, type 2 Diabetic retinopathy Essential tremor MINOR IN HAND Fatty liver First degree AV block GERD without esophagitis Hearing deficit Hiatal hernia History of CVA (cerebrovascular accident) (2019) L lacunar infarct Hyperlipidemia Hypertension Hypothyroidism 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 On anticoagulant therapy Osteoarthritis RBBB Recurrent UTI Resistant hypertension Restless legs Stage 3b chronic kidney disease Urinary urgency Venous insufficiency Weakness Surgical History H/O varicose vein ligation History of back surgery (04/2010) X 2 History of bladder suspension procedure X 2 History of colonoscopy History of esophagogastroduodenoscopy (EGD) History of tooth extraction S/P carpal tunnel release RT/LEFT S/P hysterectomy ANDRIA S/P knee replacement RT/LEFT S/P trigger finger release Family History Father Alcohol abuse Heart disease Myocardial infarction Hypertension Sister Pancreatic cancer Diabetes Breast cancer Brother Diabetes Alcohol abuse Stroke Other Cancer No family history of adverse response to anesthesia Denies family history of Ovarian cancer Prostate cancer Colorectal cancer Social History Smoking Status: Never smoker Second Hand Exposure: No; Hx Alcohol Use: No Hx Substance Use: No Preferred Language: Dominican Communication Ability: Effective Visual Impairment: No Limitations Hearing Ability: Normal Biblical Studies Professor Required: No Beliefs That Will Affect Care: None marital status: Single Current Living Situation: Alone current occupational status: retired How many Children do You have: 2 Feels Safe at Home: Yes Childhood Exposure to Second-Hand Smoke: No caffeine: Yes (Coffee x 2 cups per day.) during the past year weight has: remained stable Dental Care, Regularly: No Physical Activity Frequency: Does not Exercise Seatbelt Use: always Sunscreen Use: Yes Assistive Devices: Cane and Walker Review of Systems Review of Systems: Per HPI. Physical Exam Physical Exam: She is alert and oriented x3. Mood affect appear normal. She answered all questions appropriately. HEENT: Sclerae are anicteric. Pupils are equal and reactive to light and accommodation. Extraocular movements were intact. Neuro: Cranial nerves intact Lungs: Normal respiratory effort. No rales. Some expiratory wheezing. Mildly reduced breath sounds in the left base. Cardiac: The rhythm was irregular. S1 and S2 were normal. Harsh crescendo systolic murmur. The PMI was not markedly displaced on palpation. Extremities: Patient has bilateral radial pulses that are equal in intensity. There is no evidence cyanosis or clubbing. Mild lower extremity edema, left worse than right Skin: There are no rashes noted on examination today. Results & Data ([facility]) Vital Signs (Past 12 Hours) Vital Signs Temp Pulse Pulse Resp BP Pulse Ox 08/15/21 10:58 36.6 C 59 L 18 128/62 96 08/15/21 10:47 59 L 08/15/21 08:00 62 16 126/67 96 08/15/21 03:37 36.7 C 62 20 113/70 96 Laboratory Results Abnormal Lab Results 08/14/21 08/14/21 08/14/21 16:20 16:20 16:20 WBC 9.54 RBC 2.94 L Hgb 9.2 L Hct 27.9 L MCV 94.9 MCH 31.3 MCHC 33.0 RDW Std Deviation 45.4 RDW Coeff of Irasema 13.2 Plt Count 202 MPV 10.5 H Immature Gran % (Auto) 0.1 Neut % (Auto) 89.8 Lymph % (Auto) 3.2 [place] % (Auto) 6.6 Eos % (Auto) 0.2 Baso % (Auto) 0.1 Neut # (Auto) 8.56 H Lymph # (Auto) 0.31 L [place] # (Auto) 0.63 H Eos # (Auto) 0.02 Baso # (Auto) 0.01 Immature Gran # (Auto) 0.01 Echinocytes 1+ PT INR APTT PTT Ratio Sodium 126 L Potassium 5.1 Chloride 99 Carbon Dioxide 16 L Anion Gap 11 BUN 96 H Creatinine 1.91 H Est Cr Clr Drug Dosing Not Reportable Est GFR ( Amer) 27.6 Est GFR (Non-Af Amer) 23.8 BUN/Creatinine Ratio 50.3 H Glucose 190 H POC Glucose Estimat Average Glucose Hemoglobin A1c Calcium 7.8 L Magnesium 2.3 Total Bilirubin 0.3 AST 14 ALT 15 Alkaline Phosphatase 294 H Troponin I High Sens 21.9 H B-Natriuretic Peptide 385 H Total Protein 5.7 L Albumin 3.4 Globulin 2.3 L Albumin/Globulin Ratio 1.5 Triglycerides Cholesterol LDL Cholesterol, Calc VLDL Cholesterol, Calc HDL Cholesterol Cholesterol/HDL Ratio SARS-CoV-2, RNA, NAAT 08/14/21 08/14/21 08/14/21 16:20 16:45 21:17 WBC RBC Hgb Hct MCV MCH MCHC RDW Std Deviation RDW Coeff of Irasema Plt Count MPV Immature Gran % (Auto) Neut % (Auto) Lymph % (Auto) [place] % (Auto) Eos % (Auto) Baso % (Auto) Neut # (Auto) Lymph # (Auto) [place] # (Auto) Eos # (Auto) Baso # (Auto) Immature Gran # (Auto) Echinocytes PT 11.4 INR 1.1 APTT 27.8 PTT Ratio 1.0 Sodium Potassium Chloride Carbon Dioxide Anion Gap BUN Creatinine Est Cr Clr Drug Dosing Est GFR ( Amer) Est GFR (Non-Af Amer) BUN/Creatinine Ratio Glucose POC Glucose 166 H Estimat Average Glucose Hemoglobin A1c Calcium Magnesium Total Bilirubin AST ALT Alkaline Phosphatase Troponin I High Sens B-Natriuretic Peptide Total Protein Albumin Globulin Albumin/Globulin Ratio Triglycerides Cholesterol LDL Cholesterol, Calc VLDL Cholesterol, Calc HDL Cholesterol Cholesterol/HDL Ratio SARS-CoV-2, RNA, NAAT NEGATIVE 08/15/21 08/15/21 08/15/21 07:48 08:00 08:00 WBC 11.78 H RBC 2.89 L Hgb 8.9 L Hct 27.2 L MCV 94.1 MCH 30.8 MCHC 32.7 RDW Std Deviation 46.4 H RDW Coeff of Irasema 13.3 Plt Count 236 MPV 10.5 H Immature Gran % (Auto) 0.2 Neut % (Auto) 91.9 Lymph % (Auto) 3.1 [place] % (Auto) 4.5 Eos % (Auto) 0.2 Baso % (Auto) 0.1 Neut # (Auto) 10.83 H Lymph # (Auto) 0.37 L [place] # (Auto) 0.53 Eos # (Auto) 0.02 Baso # (Auto) 0.01 Immature Gran # (Auto) 0.02 Echinocytes PT INR APTT PTT Ratio Sodium 126 L Potassium 5.2 H Chloride 100 Carbon Dioxide 15 L Anion Gap 11 BUN 102 H Creatinine 2.09 H Est Cr Clr Drug Dosing 18.0 Est GFR ( Amer) 24.7 Est GFR (Non-Af Amer) 21.4 BUN/Creatinine Ratio 48.8 H Glucose 157 H POC Glucose 163 H Estimat Average Glucose Hemoglobin A1c Calcium 7.7 L Magnesium 2.4 Total Bilirubin AST ALT Alkaline Phosphatase Troponin I High Sens B-Natriuretic Peptide Total Protein Albumin Globulin Albumin/Globulin Ratio Triglycerides 93 Cholesterol 74 LDL Cholesterol, Calc 25 VLDL Cholesterol, Calc 19 HDL Cholesterol 30 Cholesterol/HDL Ratio 2.5 SARS-CoV-2, RNA, NAAT 08/15/21 08/15/21 08:00 11:25 WBC RBC Hgb Hct MCV MCH MCHC RDW Std Deviation RDW Coeff of Irasema Plt Count MPV Immature Gran % (Auto) Neut % (Auto) Lymph % (Auto) [place] % (Auto) Eos % (Auto) Baso % (Auto) Neut # (Auto) Lymph # (Auto) [place] # (Auto) Eos # (Auto) Baso # (Auto) Immature Gran # (Auto) Echinocytes PT INR APTT PTT Ratio Sodium Potassium Chloride Carbon Dioxide Anion Gap BUN Creatinine Est Cr Clr Drug Dosing Est GFR ( Amer) Est GFR (Non-Af Amer) BUN/Creatinine Ratio Glucose POC Glucose 182 H Estimat Average Glucose 100 Hemoglobin A1c 5.1 Calcium Magnesium Total Bilirubin AST ALT Alkaline Phosphatase Troponin I High Sens B-Natriuretic Peptide Total Protein Albumin Globulin Albumin/Globulin Ratio Triglycerides Cholesterol LDL Cholesterol, Calc VLDL Cholesterol, Calc HDL Cholesterol Cholesterol/HDL Ratio SARS-CoV-2, RNA, NAAT Diagnostic Findings Echocardiogram was performed today which revealed normal LV systolic function with moderate LVH. She has moderately dilated left atrium and mildly dilated right atrium. There is moderate to severe aortic stenosis and moderate to severe mitral annular calcification with [id number] mitral stenosis. IVC was dilated. There was a moderate-sized pericardial effusion. Chest x-ray obtained the time admission suggested central venous congestion. Small bilateral pleural effusions and enlarged cardiac silhouette. ECG Additional Comments: Atrial fibrillation with controlled ventricular response. Right bundle branch block PG Care Time/CCT Total # of Minutes Spent Total Time Spent with Patient: Total time spent is greater than 50% in coordination of care (as documented) at patient's floor/unit and/or counseling patient: Coding Level of Care Code 28993 Initial Inpt Care Lvl 3 Diagnoses MCKEON (dyspnea on exertion) R06.00 Atrial fibrillation, new onset I48.91 CAD (coronary artery disease) I25.10 Aortic stenosis I35.0 Mitral stenosis and incompetence I05.2 Elevated troponin R77.8 Pericardial effusion I31.3
--- NOTE | 2021-08-15 14:04 | Hospitalist Progress Note ---
Date of Service August 15, 2021 Assessment & Plan (1) (HFpEF) heart failure with preserved ejection fraction: Plan: Per prior notes, appeared slightly hypervolemic on admission, with ongoing shortness of breath, orthopnea. Vascular congestion noted on CXR. - Held home Lasix, opted for 80 mg IV Lasix twice daily. - Dry weight reported 159 pounds. - I&O's, daily weights. - Cardiology consulted - On 08/15, Cr and BUN both rising. Volume status is unclear as she has minimal LE edema. Discussed with cardiology and are considering a RHC to help determine volume status more effectively. (2) Acute kidney injury superimposed on chronic kidney disease: Plan: - Cr 1.91, baseline 1.21.4. With CKD 3. - Avoid nephrotoxins, renally dose as able. - Monitor BMP -> Cr up today. BUN > 100. Holding Lasix for now. (3) Hyponatremia: Plan: Na was 126. May be contributing to general weakness. - Continue to follow on BMP - Will get urine osms; has not had Lasix for > 6 hours (4) Aortic stenosis: Plan: Follows with cardiology, has been consulted while she is here. - Watch volume status. (5) Mitral stenosis and incompetence: Plan: Follows with cardiology, has been consulted while she is here. - Watch volume status. (6) Diabetes mellitus type 2 with complications: Plan: Per recent A1c's, is well controlled. They have been from 4.7%6.6% over the last 2 years. - Hold oral agents, cover with SSI w/out carb coverage. (7) CAD (coronary artery disease): Plan: Chronic, stable. - Continue statin, antihypertensives, Plavix. - Troponin very minimally elevated lower than troponin from yesterday's ED visit. Likely mildly elevated in setting of MICHAEL/CKD and volume overload. - On telemetry. (8) History of CVA (cerebrovascular accident): Plan: Had Plavix held on last admission due to GI bleed. - Continue to hold Plavix. (9) Hypertension: Plan: BP stable today at 130/60. - Continue amlodipine - Hold losartan for now due to MICHAEL. (10) Hypothyroidism: Plan: - Continue levothyroxine. (11) Restless legs: Plan: - Continue ropinirole. (12) History of GI bleed: Plan: - Hospitalized earlier this month requiring 2 units of transfusion. EGD deferred at that time due to elevated troponin. Was thought it may be due to AVMs, she has increased risk for this due to her aortic stenosis. - Continue Protonix twice daily. - Hgb appears stable, continue to trend on a.m. labs. Plan: - SCDs for DVT PPx. Admission and Anticipated Discharge Date Admission Date: August 14, 2021 Subjective Feeling some better today. Still reports dyspnea on exertion. Does not feel her legs are swollen. Sometimes her abdomen is, but not presently. Reports no fevers/chills, chest pain, shortness of breath at rest, abdominal pain, nausea, or vomiting. Physical Exam Constitutional: WD/WN, vitals as above Eyes: EOM intact bilaterally; no conjunctival abnormality ENMT: external ear and nose normal, oropharynx normal Neck: trachea midline, no thyromegaly normal visual inspection Respiratory: normal respiratory effort, lungs clear to auscultation no respiratory distress Cardiovascular: RRR, no murmur, no edema Gastrointestinal (Abdomen): Inspection/Auscultation: abdomen normal to inspection; abdomen not distended Musculoskeletal: no cyanosis or clubbing, extremities motor strength 5/5 Skin: no rashes, warm and dry Neurologic: moves all extremities and awake Psychiatric: Orientation: alert, oriented to person and cooperative Results & Data Results & Data ([facility]) Vital Signs (Past 12 Hours) Vital Signs Temp Pulse Pulse Resp BP Pulse Ox 08/15/21 10:58 36.6 C 59 L 18 128/62 96 08/15/21 10:47 59 L 08/15/21 08:00 62 16 126/67 96 08/15/21 03:37 36.7 C 62 20 113/70 96 PG Care Time/CCT Total # of Minutes Spent Total Time Spent with Patient: Total time spent is greater than 50% in coordination of care (as documented) at patient's floor/unit and/or counseling patient: Coding Level of Care Code 97034 Subseq Hosp Care Lvl 3 Diagnoses (HFpEF) heart failure with preserved ejection fraction I50.30 Acute kidney injury superimposed on chronic kidney disease N17.9; N18.9 Hyponatremia E87.1 Aortic stenosis I35.0 Mitral stenosis and incompetence I05.2 Diabetes mellitus type 2 with complications E11.8 CAD (coronary artery disease) I25.10 History of CVA (cerebrovascular accident) Z86.73 Hypertension I10 Hypothyroidism E03.9 Restless legs G25.81 History of GI bleed Z87.19
[2021-08-15] MEDS: rOPINIRole HCL 0.25 MG TABLET PO SCH (15:29)
[2021-08-15] MEDS ORDERED: MIDAZOLAM HCL 1 MG/ML 2ML VIAL ONE (16:24)
[2021-08-15] MEDS ORDERED: fentaNYL citrate 100 MCG/2 ML VIAL ONE (16:25)
[2021-08-15] MEDS ORDERED: FUROSEMIDE 40 MG/4 ML VIAL IV ONE (17:59)
--- NOTE | 2021-08-15 19:04 | Cardiac Catheterization ---
[facility] Data: [employer] Cardiac Status Clinical evaluation leading to the procedure CAD Presenation: Sx unlikely to be ischemic Diagnostic Physicians Name: Ronald Moura MD Closure Device Recommendations: Medical Therapy and/or Counseling Cardiac Cath Procedure Full Procedure Date August 15, 2021 Pre-Procedure Diagnosis Pre-Procedure Diagnosis: CHF AUC Score AUC Score: 7 Post-Procedure Diagnosis Post-Procedure Diagnosis: Elevated Intracardiac Pressures Procedure(s) Performed Procedure(s) Performed: Right Heart Cath Pipe Coremaker Ronald Moura MD Biological Scientist(s) none Estimated Blood Loss Estimated Blood Loss: 3cc Medication(s) Medication(s): Lidocaine 1% and Versed Summary of Findings Procedure performed: Right heart catheterization Staff property administrator: Ronald Moura MD Indication: The patient is an 81-year-old woman with a history of valvular he art disease, new onset atrial fibrillation and newly discovered pericardial effusion. She presented with symptoms of dyspnea and was also noted to have declining renal function with the potential for intravascular depletion. Therefore she was brought to the cardiac catheterization suite for diagnostic right heart catheterization. Procedure in detail: The patient was informed the risks benefits and alternatives to the intended procedure. She understood which proceed. She was brought to the cardiac catheterization suite where the right antecubital areas prepped and draped in usual sterile fashion. Right antecubital vein was then accessed and used to facilitate passage of a balloon tipped PA catheter for pressure measurements and hemodynamics. Guidance of the catheter was performed using fluoroscopy. I conclusion the procedure the catheter was removed. The sheath was removed and hemostasis achieved at the access site using manual pressure. The patient tolerated procedure well. There were no immediate complications. Thermodilution cardiac output 4.3 liters/minute with an index of 2.5 Florentin cardiac output 4.4 liters/minute with an index of 2.6 Hemodynamics Rest Ao:: n/a Final Ao: n/a LV: n/a RA: Mean pressure 15 mm of mercury RV: 41/9 mm of mercury with end-diastolic pressure of 15 mm of mercury PA: 46/19 mm of mercury Mean pressure was 30 mm of mercury PW: Mean pulmonary capillary wedge pressure was 19 mm of mercury Recommendations Recommendations: Medical Therapy and/or Counseling Specimens Specimens: None Radiation Exposure (mGy) q Contrast (mls) 0 Procedural Complication(s) None Disposition PCU I attest to the content of the Intraoperative Record and any orders documented therein. Any exceptions are noted below. [facility] Card Cath Procedure Codes Cardiac Catheterization Procedure 1: Cardiovascular Cath Procedures: 88657 Right Heart Cath PG Care Time/CCT Total # of Minutes Spent Total Time Spent with Patient: Total time spent is greater than 50% in coordination of care (as documented) at patient's floor/unit and/or counseling patient:
[2021-08-15] MEDS: ATORVASTATIN 10 MG TAB PO SCH (22:16)
[2021-08-15] MEDS: rOPINIRole HCL 1 MG TABLET PO SCH (22:23)
[2021-08-16] MEDS: LEVOTHYROXINE SODIUM 112 MCG TABLET PO SCH (05:40)
[2021-08-16 07:02] LABS: Hematocrit (blood only) 27.4 % (37-47); Mean Corpuscular Hemoglobin 30.8 pg (25-34); Mean Corpuscular Hgb Conc 32.8 g/dL (32-36); Mean Corpuscular Volume 93.8 fL (80-100); Mean Platelet Volume 11.1 fL (7.4-10.4); Platelet Count 269 K/uL (130-400); RDW Coefficient of Variation 13.6 % (11.5-14.5); RDW Standard Deviation 47.3 fL (36.4-46.3); Red Blood Count 2.92 M/uL (4.2-5.4); White Blood Count 13.78 K/uL (4.8-10.8)
[2021-08-16 07:48] LABS: Alanine Aminotransferase 12 U/L (7-52); Albumin Globulin Ratio 1.4 (0.9-2); Albumin Level 3.1 gm/dl (3.4-5.0); Alkaline Phosphatase 233 U/L (34-104); Anion Gap 12 (3-11); BUN Creatinine Ratio 37.5 (10-20); Bilirubin,Total 0.4 mg/dl (0.2-1.0); Blood Urea Nitrogen 114 mg/dl (6-23); Calcium 7.7 mg/dl (8.5-10.1); Carbon Dioxide 14 mmol/L (21-32); Chloride 101 mmol/L (98-107); Creatinine Clr Calc Pharmacy 12.4 ml/min; Est GFR (African American) 15.7 ml/min; Est GFR (Non-African American) 13.6 ml/min; Globulin 2.2 gm/dl (2.5-4.0); Glucose 165 mg/dl (70-99(Fasting)); Magnesium 2.5 mg/dl (1.7-2.4); Sodium 127 mmol/L (136-145); Total Protein 5.3 gm/dl (6.0-8.3)
[2021-08-16 08:25] LABS: Potassium 5.8 mmol/L (3.5-5.1)
[2021-08-16 09:31] LABS: iSTAT Arterial Blood Gas HCO3 14 meg/L (19-24); iSTAT Arterial Blood Gas pCO2 30 mmHg (35-46); iSTAT Arterial Blood Gas pH 7.29 (7.35-7.45); iSTAT Arterial Blood Gas pO2 < 32 mmHg (80-95); iSTAT Carbon Dioxide 15 mmol/L (24-31)
[2021-08-16] MEDS: DOCUSATE SODIUM 100 MG CAP PO SCH (10:08)
[2021-08-16] MEDS: CALCIUM 600MG + VIT D 400 IU TAB PO SCH (10:09)
[2021-08-16] MEDS: BETHANECHOL CHL 25 MG TAB PO SCH ×2 (10:09→20:59)
[2021-08-16] MEDS: SERTRALINE HCL 50 MG TABLET PO SCH (10:09)
[2021-08-16] MEDS: TAMSULOSIN HCL 0.4 MG CAP PO SCH (10:10)
[2021-08-16] MEDS: DOXAZosin MESYLATE 4 MG TAB PO SCH (10:10)
[2021-08-16] MEDS: PANTOprazole 40 MG TAB PO SCH ×2 (10:11→21:02)
[2021-08-16] MEDS: amLODIPine BESYLATE 5 MG TAB PO SCH (10:11)
[2021-08-16] MEDS: FERROUS SULFATE 325 MG TAB PO SCH ×2 (10:12→21:00)
[2021-08-16] MEDS: HEPARIN SOD 5,000 UNIT/0.5 ML VIAL SQ SCH ×2 (10:14→21:01)
[2021-08-16] MEDS: INSULIN ASPART PER UNIT SC SCH ×4 (11:00→21:56)
[2021-08-16] MEDS: ONDANSETRON INJ 2 MG/ML 2 ML VIAL IV PRN (11:38)
--- NOTE | 2021-08-16 11:59 | XRay Report ---
XR chest 1V portable CLINICAL HISTORY: Increased white count. COMPARISON STUDY: 08/14/2021 TECHNIQUE: 1 view of the chest FINDINGS: Single frontal view of the chest demonstrates the heart to again be enlarged. Compared to the previou s examination, there is increasing left pleural effusion and alveolar opacity in the retrocardiac spa ce. All the findings may represent atelectasis/collapse, underlying pneumonia cannot be excluded base d on the patient's history. CT of the chest could be obtained for further evaluation. There is small right pleural effusion and right basilar atelectasis as well. There is been interval r esolution of mild vascular congestion. There is no acute osseous pathology. IMPRESSION: 1. Evidence for increasing left pleural effusion and left lower lobe retrocardiac opacity. All the fi ndings again are characteristic of atelectasis/collapse, underlying early pneumonia cannot be exclude d based on the patient's history. If indicated clinically, CT of the chest could be obtained for furt her evaluation. 2. This also a small right pleural effusion and right basilar atelectasis. 3. There has been resolution of mild vascular congestion. ACT 112: Negative or not required by law. Electronically signed by: Jose Mo M.D. 08/16/2021 11:58 AM
[2021-08-16] MEDS: rOPINIRole HCL 0.25 MG TABLET PO SCH (12:50)
[2021-08-16 14:28] LABS: Appearance Urine Cloudy (Clear); Bacteria Urine Automated Negative (Negative); Bilirubin Urine Negative (Negative); Blood Urine 3+ (Negative); Color Urine Dark Yellow; Epithelial Cell Urine Auto 20-30 /lpf (0-5); Glucose Urine UA Negative (Negative); Ketones Urine Trace (Negative); Leukocyte Esterase Urine 2+ (Negative); Nitrite Urine Negative (Negative); Protein Urine 1+ (Negative); RBC Urine Automated >30 /hpf (0-4); Specific Gravity Urine 1.018 (1.000-1.030); Urobilinogen Urine Negative (Negative); WBC Urine Automated >30 /hpf (0-5)
--- NOTE | 2021-08-16 15:25 | Ultrasound Report ---
ULTRASOUND KIDNEYS AND BLADDER CLINICAL HISTORY: Elevated creatinine. COMPARISON STUDY: Abdominal CT dated 09/12/2019. TECHNIQUE: Real-time, grayscale, and color flow sonography of the kidneys and bladder is performed. I mages are reviewed in the transverse and longitudinal planes. FINDINGS: Kidneys: The kidneys are atrophic and echogenic consistent with medical renal disease. The right kidn ey measures 9.5 x 5.3 x 6.8 cm and the left kidney measures 10.3 x 5.0 x 5.5 cm. There is no hydrone phrosis. No shadowing renal calculi are identified. A 2.4 cm cyst is noted on the right. There is no sonographic evidence of contour deforming renal mass lesion. No perinephric fluid is identified. Bladder: The bladder is decompressed around a Johnson catheter and not well assessed. Abdomen: There is a small volume of abdominal ascites. The liver is cirrhotic in morphology and splee n appears enlarged. IMPRESSION: 1. The kidneys are atrophic and echogenic consistent with medical renal disease. 2. No hydronephrosis. 3. The bladder was decompressed around a Johnson catheter and could not be assessed. 4. Cirrhosis, splenomegaly, and small volume ascites. ACT 112: Negative or not required by law. Electronically signed by: Eulogio Gaspar M.D. 08/16/2021 3:23 PM
--- NOTE | 2021-08-16 17:04 | Hospitalist Progress Note ---
Date of Service August 16, 2021 Assessment & Plan (1) (HFpEF) heart failure with preserved ejection fraction: Plan: Per prior notes, appeared slightly hypervolemic on admission, with ongoing shortness of breath, orthopnea. Vascular congestion noted on CXR. - Held home Lasix, opted for 80 mg IV Lasix twice daily. - Dry weight reported 159 pounds. - I&O's, daily weights. - Cardiology consulted - RHC on 08/15 showed following: * RA 15 * PA 46/19 * PCW 19 * RV 41/10 * CI 2.62 (normal 2.5 - 4.0) -> This would indicate continued volume overload as PCWP is roughly 2x what it should be. - On 08/16, Cr and BUN both rising. She was given Lasix 60 mg IV once after her RHC in discussion with cardiology, as it was thought she was intravascularly overloaded and required more diuresis. At this point, holding further Lasix. (2) Acute kidney injury superimposed on chronic kidney disease: Plan: - Cr 1.91, baseline 1.21.4. With CKD 3. - Avoid nephrotoxins, renally dose as able. - Monitor BMP -> Cr up today. BUN > 100. Holding Lasix for now. - Added renal u/s and nephrology consult. (3) Hyponatremia: Plan: Na was 126. May be contributing to general weakness. - Continue to follow on BMP - Urine osms were 315 on 08/16 (4) Aortic stenosis: Plan: Follows with cardiology, has been consulted while she is here. - Watch volume status. (5) Mitral stenosis and incompetence: Plan: Follows with cardiology, has been consulted while she is here. - Watch volume status. (6) Diabetes mellitus type 2 with complications: Plan: Per recent A1c's, is well controlled. They have been from 4.7%6.6% over the last 2 years. - Hold oral agents, cover with SSI w/out carb coverage. (7) CAD (coronary artery disease): Plan: Chronic, stable. - Continue statin, antihypertensives, Plavix. - Troponin very minimally elevated lower than troponin from yesterday's ED visit. Likely mildly elevated in setting of MICHAEL/CKD. - On telemetry. (8) History of CVA (cerebrovascular accident): Plan: Had Plavix held on last admission due to GI bleed. - Continue to hold Plavix. (9) Hypertension: Plan: BP stable today at 120/60. - Continue amlodipine - Hold losartan for now due to MICHAEL. (10) Hypothyroidism: Plan: - Continue levothyroxine. (11) Restless legs: Plan: - Continue ropinirole. (12) History of GI bleed: Plan: - Hospitalized earlier this month requiring 2 units of transfusion. EGD deferred at that time due to elevated troponin. Was thought it may be due to AVMs, she has increased risk for this due to her aortic stenosis. - Continue Protonix twice daily. - Hgb appears stable, continue to trend on a.m. labs. Plan: - SCDs for DVT PPx. Admission and Anticipated Discharge Date Admission Date: August 14, 2021 Subjective Doing ok today. Not feeling much better. No shortness of breath while at rest, but definitely not any improvement in dyspnea on exertion. Reports no fevers/chills, chest pain, abdominal pain, nausea, or vomiting. Physical Exam Constitutional: WD/WN, vitals as above Eyes: EOM intact bilaterally; no conjunctival abnormality ENMT: external ear and nose normal, oropharynx normal Neck: trachea midline, no thyromegaly normal visual inspection Respiratory: normal respiratory effort, lungs clear to auscultation no respiratory distress Cardiovascular: RRR, no murmur, no edema Gastrointestinal (Abdomen): Inspection/Auscultation: abdomen normal to inspection; abdomen not distended Musculoskeletal: no cyanosis or clubbing, extremities motor strength 5/5 Skin: no rashes, warm and dry Neurologic: moves all extremities and awake Psychiatric: Orientation: alert, oriented to person and cooperative Results & Data Results & Data ([facility]) Vital Signs (Past 12 Hours) Vital Signs Temp Pulse Pulse Resp BP Pulse Ox 08/16/21 16:42 54 L 08/16/21 15:35 36.4 C L 56 L 19 117/61 99 08/16/21 11:07 36.9 C 54 L 18 108/56 L 98 08/16/21 07:28 36.4 C L 55 L 19 129/65 96 08/16/21 07:00 57 L 08/16/21 05:10 61 PG Care Time/CCT Total # of Minutes Spent Total Time Spent with Patient: Total time spent is greater than 50% in coordination of care (as documented) at patient's floor/unit and/or counseling patient: Coding Level of Care Code 67136 Subseq Hosp Care Lvl 3 Diagnoses (HFpEF) heart failure with preserved ejection fraction I50.30 Acute kidney injury superimposed on chronic kidney disease N17.9; N18.9 Hyponatremia E87.1 Aortic stenosis I35.0 Mitral stenosis and incompetence I05.2 Diabetes mellitus type 2 with complications E11.8 CAD (coronary artery disease) I25.10 History of CVA (cerebrovascular accident) Z86.73 Hypertension I10 Hypothyroidism E03.9 Restless legs G25.81 History of GI bleed Z87.19
[2021-08-16] MEDS ORDERED: PATIROMER CALCIUM SORBITEX 8.4 GM PACK PO STA (17:29)
[2021-08-16] MEDS ORDERED: SODIUM BICARBONATE 650 MG TAB PO ONE (17:31)
--- NOTE | 2021-08-16 17:41 | Nephrology Consultation ---
Date of Consultation August 16, 2021 Assessment & Plan (1) Acute kidney injury superimposed on chronic kidney disease: (2) MICHAEL (acute kidney injury): (3) Chronic kidney disease, stage 3a: (4) (HFpEF) heart failure with preserved ejection fraction: (5) Hyponatremia: (6) Acute blood loss anemia: (7) Metabolic acidosis: (8) Hyperkalemia: MICHAEL. Urine output dropping. Inadequate response to diuretics since admission. Johnson in place. No obstruction on imaging. 300 ml drained from bladder with Johnson placement. History of urinary retention noted. Johnson to remain in place for now. Document strict I/O's. Known history of ZBIGNIEW. Updated duplex requested. Complex underlying cardiorenal syndrome, including severe , mitral stenosis, atrial fibrillation, diastolic dysfunction, pericardial effusion, and predominately right heart failure. Possible pericardiocentesis tomorrow. Plan of care reviewed with Dr. Moura. Avoid ÁNGELA/ARB given MICHAEL. I cannot exclude possible HRS with CT evidence of cirrhosis since 2019 with small amount of ascites and portal hypertension including splenomegaly. Urine sodium will be monitored. Urine with mixed sediment: +protein, WBCs, RBCs. Hyaline and granular casts noted. Clinical presentation very atypical for acute GN or AIN. Notable stigma of advanced kidney dysfunction including hyperkalemia, hyponatremia, and mixed AG/NAGMA. Thankfully there is no emergent indication for dialysis but progression is concerning. kidneys are atrophic on imaging. I discussed with Sully and her daughter today the potential future indications for dialysis. Hyperkalemia requires aggressive medical management. Suggest continued use of loop diuretics to encourage urine output. NaHCO3 replacement. Patiromer 8.4 grams now. Repeat metabolic profile this evening. Provided additional patiromer PRN. Free water restriction reenforced for hyponatremia. Relative hypotension and electrolyte abnormalities suggestive of possible adrenal insufficiency but this would be a very unusual presentation. Random cortisol requested tomorrow AM. Medications are currently appropriately dosed for kidney dysfunction. BP below goal with doxazosin and amlodipine. May hold medications tomorrow as tolerated. for anemia, I will update an iron profile in the AM. Plan of care was discussed with Dr. Aranda today. History of Present Illness Reason for Consultation: MICHAEL/CKD Requesting Physician: Lux Aranda MD Attending Physician: Lux Aranda MD History of Present Illness Mrs. Sully Faria is an 81-year-old female with CKD III A3. Baseline creatinine 1.5-1.7 mg/dL. Proteinuria quantified at 1.6 g/g. CKD attributed to history of hypertension, DKD, and renovascular disease. Sully follows in the outpatient nephrology clinic with Dr. Will. Prior episodes of MICHAEL include recent hemodynamically mediated kidney injury related to acute anemia. Sully was hospitalized at [facility] earlier this month with symptomatic anemia requiring PRBC transfusion support. GI blood loss attributed to AVM by history. ARB discontinued during prior admission. Endoscopic intervention deferred as signs of blood loss stabilized. Changes in cardiac enzymes attributed to demand ischemia. Medical history is also notable for non-obstructive coronary artery disease, HFpEF, severe aortic stenosis, atrial fibrillation, chronic anemia, imaging evidence of cirrhosis, NAFLD, hypertension, diabetes mellitus type II, neurogenic bladder, OA/DJD, and hypothyroidism. Sully returned to [facility] on August 14 with progressive fatigue and decreased activity tolerance. She reported notable dyspnea with exertion and weight gain. Right heart catheterization was performed today. Urine output 60 ml. Johnson intake. Renal US demonstrates kidneys to be unobstructed. Some improvement in symptoms noted since admission. Allergies Allergy/AdvReac Type Severity Reaction Status Date / Time sulfamethoxazole AdvReac Unknown Verified 08/14/21 19:49 [From Bactrim] trimethoprim [From Bactrim] AdvReac Unknown Verified 08/14/21 19:49 Home Medications Medication Instructions Recorded Confirmed Type calcium carbonate 600 mg-vitamin 1 cap PO QAM 05/29/18 08/14/21 History D3 5 mcg (200 unit) capsule (Calcium 600 + D(3)) cholecalciferol (vitamin D3) 25 1,000 unit PO QAM 05/29/18 08/14/21 History mcg (1,000 unit) capsule (Vitamin D3) cranberry fruit concentrate 250 mg 500 mg PO QAM 05/29/18 08/14/21 History chewable tablet (Azo Cranberry) omega-3s 300 ns-anm-oqv-other 1 cap PO QAM 05/29/18 08/14/21 History [id number] oil 1,000 mg capsule (Donalds-3 Fish Oil) vitamin E 1,000 unit capsule 1,000 unit PO QAM 05/29/18 08/14/21 History blood sugar diagnostic (Blood #100 ea 10/12/20 08/03/21 Rx Glucose Test) acetaminophen 500 mg tablet 500 mg PO Q6H PRN 11/12/20 08/14/21 History (Tylenol Extra Strength) ascorbic acid (vitamin C) 500 mg 1,000 mg PO QAM 11/12/20 08/14/21 History tablet (Vitamin C) cyanocobalamin (vitamin B-12) 1,000 mcg PO QAM 11/12/20 08/14/21 History 1,000 mcg tablet (Vitamin B-12) docusate sodium 100 mg capsule 100 mg PO QAM PRN 11/12/20 08/14/21 History (Colace) nitrofurantoin 100 cap PO QAM 11/12/20 08/14/21 History monohydrate/macrocrystals 100 mg capsule (Macrobid) tamsulosin 0.4 mg capsule (Flomax) 0.4 mg PO QAM 11/12/20 08/14/21 History magnesium oxide 500 mg PO QAM tab 11/22/20 08/14/21 History furosemide 40 mg tablet (Lasix) 40 mg PO BID #180 tab 03/28/21 08/14/21 Rx levothyroxine 112 mcg tablet 112 mcg PO DAILYBB #90 tab 03/31/21 08/14/21 Rx (Synthroid) bethanechol chloride 50 mg tablet 50 mg PO BID #180 tab 04/19/21 08/14/21 Rx ferrous sulfate 325 mg (65 mg 325 mg PO BID #60 tab 04/21/21 08/14/21 Rx iron) tablet atorvastatin 10 mg tablet (Lipitor) 10 mg PO HS #90 tab 04/25/21 08/14/21 Rx linagliptin 5 mg tablet (Tradjenta) 5 mg PO QAM #90 tab 05/23/21 08/14/21 Rx ropinirole 0.5 mg tablet See Rx Instructions PO .COMPLEX 05/23/21 08/14/21 Rx #360 tab triamcinolone acetonide 0.5 % 1 applic TOPICAL BID PRN #60 g 06/24/21 08/14/21 Rx topical cream amlodipine 10 mg tablet (Norvasc) 10 mg PO QAM #90 tab 07/08/21 08/14/21 Rx doxazosin 4 mg tablet 4 mg PO DAILY 07/13/21 08/14/21 History tramadol 50 mg tablet (Ultram) 50 mg PO BID PRN #60 tab 07/14/21 08/14/21 Rx pantoprazole 40 mg tablet,delayed 40 mg PO BID #60 tab 08/05/21 08/14/21 Rx release (Protonix) methocarbamol 500 mg tablet 500 mg PO TID PRN #90 tab 08/11/21 08/14/21 Rx sertraline 25 mg tablet 25 mg PO UD 08/14/21 08/14/21 History Patient History Medical History Anemia of chronic disease Anxiety Aortic stenosis CAD (coronary artery disease) Chronic back pain Chronic diastolic heart failure Chronic hyponatremia Chronic kidney disease, stage 3a Diabetes mellitus, type 2 Diabetic retinopathy Essential tremor MINOR IN HAND Fatty liver First degree AV block GERD without esophagitis Hearing deficit Hiatal hernia History of CVA (cerebrovascular accident) (2019) L lacunar infarct Hyperlipidemia Hypertension Hypothyroidism 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 On anticoagulant therapy Osteoarthritis RBBB Recurrent UTI Resistant hypertension Restless legs Stage 3b chronic kidney disease Urinary urgency Venous insufficiency Weakness Surgical History H/O varicose vein ligation History of back surgery (04/2010) X 2 History of bladder suspension procedure X 2 History of colonoscopy History of esophagogastroduodenoscopy (EGD) History of tooth extraction S/P carpal tunnel release RT/LEFT S/P hysterectomy ANDRIA S/P knee replacement RT/LEFT S/P trigger finger release Family History Father Alcohol abuse Heart disease Myocardial infarction Hypertension Sister Pancreatic cancer Diabetes Breast cancer Brother Diabetes Alcohol abuse Stroke Other Cancer No family history of adverse response to anesthesia Denies family history of Ovarian cancer Prostate cancer Colorectal cancer Social History Smoking Status: Never smoker Second Hand Exposure: No; Hx Alcohol Use: No Hx Substance Use: No Preferred Language: Norwegian Communication Ability: Effective Visual Impairment: No Limitations Hearing Ability: Normal Strawhat Blocking Operator Required: No Beliefs That Will Affect Care: None marital status: Single Current Living Situation: Alone current occupational status: retired How many Children do You have: 2 Feels Safe at Home: Yes Childhood Exposure to Second-Hand Smoke: No caffeine: Yes (Coffee x 2 cups per day.) during the past year weight has: remained stable Dental Care, Regularly: No Physical Activity Frequency: Does not Exercise Seatbelt Use: always Sunscreen Use: Yes Assistive Devices: Cane and Walker Physical Exam Constitutional: + obese and + frail appearing; no acute distress Eyes: + anicteric sclerae; no corneal abnormality ENMT: Mouth: no oral mucosal abnormality and oral mucous membranes not dry Neck: normal visual inspection and trachea midline Respiratory: normal respiratory effort; no labored breathing Auscultation: lungs clear to auscultation bilaterally Cardiovascular: Rate/Rhythm: + irregularly irregular Heart Sounds: normal S1, normal S2 and + murmur Extremities: + edema Musculoskeletal: Extremities: no cyanosis and no clubbing Skin: + turgor decreased; no lesions Neurologic: Motor/Sensory: no tremor and no asterixis Psychiatric: Orientation: alert and oriented x 3 Results & Data ([facility]) Vital Signs (Past 12 Hours) Vital Signs Temp Pulse Pulse Resp BP Pulse Ox 08/16/21 16:42 54 L 08/16/21 15:35 36.4 C L 56 L 19 117/61 99 08/16/21 11:07 36.9 C 54 L 18 108/56 L 98 08/16/21 07:28 36.4 C L 55 L 19 129/65 96 08/16/21 07:00 57 L Laboratory Results Laboratory Results - last 24 hr 08/15/21 08/15/21 08/16/21 16:39 20:15 02:17 WBC RBC Hgb Hct MCV MCH MCHC RDW Std Deviation RDW Coeff of Irasema Plt Count MPV POC pH 7.29 L POC pCO2 30 L POC pO2 < 32 L POC HCO3 14 L POC Total CO2 15 L POC Base Excess -12.0 L POC ABG O2 Sat 48.0 L Sodium Potassium Chloride Carbon Dioxide Anion Gap BUN Creatinine Est Cr Clr Drug Dosing Est GFR ( Amer) Est GFR (Non-Af Amer) BUN/Creatinine Ratio Glucose POC Glucose 169 H Calcium Magnesium Total Bilirubin AST ALT Alkaline Phosphatase Total Protein Albumin Globulin Albumin/Globulin Ratio Urine Color Urine Appearance Urine pH Ur Specific [place] Urine Protein Urine Glucose (UA) Urine Ketones Urine Blood Urine Nitrite Urine Bilirubin Urine Urobilinogen Ur Leukocyte Esterase Urine WBC (Auto) Urine RBC (Auto) U Hyaline Cast (Auto) U Epithel Cells (Auto) Urine Bacteria (Auto) Urine Osmolality 315 L 08/16/21 08/16/21 08/16/21 06:02 06:02 07:29 WBC 13.78 H RBC 2.92 L Hgb 9.0 L Hct 27.4 L MCV 93.8 MCH 30.8 MCHC 32.8 RDW Std Deviation 47.3 H RDW Coeff of Irasema 13.6 Plt Count 269 MPV 11.1 H POC pH POC pCO2 POC pO2 POC HCO3 POC Total CO2 POC Base Excess POC ABG O2 Sat Sodium 127 L Potassium TNP Chloride 101 Carbon Dioxide 14 L Anion Gap 12 H BUN 114 H Creatinine 3.04 H D Est Cr Clr Drug Dosing 12.4 Est GFR ( Amer) 15.7 Est GFR (Non-Af Amer) 13.6 BUN/Creatinine Ratio 37.5 H Glucose 165 H POC Glucose 163 H Calcium 7.7 L Magnesium 2.5 H Total Bilirubin 0.4 AST TNP ALT 12 Alkaline Phosphatase 233 H Total Protein 5.3 L Albumin 3.1 L Globulin 2.2 L Albumin/Globulin Ratio 1.4 Urine Color Urine Appearance Urine pH Ur Specific [place] Urine Protein Urine Glucose (UA) Urine Ketones Urine Blood Urine Nitrite Urine Bilirubin Urine Urobilinogen Ur Leukocyte Esterase Urine WBC (Auto) Urine RBC (Auto) U Hyaline Cast (Auto) U Epithel Cells (Auto) Urine Bacteria (Auto) Urine Osmolality 08/16/21 08/16/21 08/16/21 07:53 11:24 13:30 WBC RBC Hgb Hct MCV MCH MCHC RDW Std Deviation RDW Coeff of Irasema Plt Count MPV POC pH POC pCO2 POC pO2 POC HCO3 POC Total CO2 POC Base Excess POC ABG O2 Sat Sodium Potassium 5.8 H Chloride Carbon Dioxide Anion Gap BUN Creatinine Est Cr Clr Drug Dosing Est GFR ( Amer) Est GFR (Non-Af Amer) BUN/Creatinine Ratio Glucose POC Glucose 181 H Calcium Magnesium Total Bilirubin AST 11 L ALT Alkaline Phosphatase Total Protein Albumin Globulin Albumin/Globulin Ratio Urine Color Dark Yellow Urine Appearance Cloudy A Urine pH 5.0 Ur Specific [place] 1.018 Urine Protein 1+ H Urine Glucose (UA) Negative Urine Ketones Trace H Urine Blood 3+ H Urine Nitrite Negative Urine Bilirubin Negative Urine Urobilinogen Negative Ur Leukocyte Esterase 2+ H Urine WBC (Auto) >30 H Urine RBC (Auto) >30 H U Hyaline Cast (Auto) 10-30 H U Epithel Cells (Auto) 20-30 H Urine Bacteria (Auto) Negative Urine Osmolality 08/16/21 16:10 WBC RBC Hgb Hct MCV MCH MCHC RDW Std Deviation RDW Coeff of Irasema Plt Count MPV POC pH POC pCO2 POC pO2 POC HCO3 POC Total CO2 POC Base Excess POC ABG O2 Sat Sodium Potassium Chloride Carbon Dioxide Anion Gap BUN Creatinine Est Cr Clr Drug Dosing Est GFR ( Amer) Est GFR (Non-Af Amer) BUN/Creatinine Ratio Glucose POC Glucose 172 H Calcium Magnesium Total Bilirubin AST ALT Alkaline Phosphatase Total Protein Albumin Globulin Albumin/Globulin Ratio Urine Color Urine Appearance Urine pH Ur Specific [place] Urine Protein Urine Glucose (UA) Urine Ketones Urine Blood Urine Nitrite Urine Bilirubin Urine Urobilinogen Ur Leukocyte Esterase Urine WBC (Auto) Urine RBC (Auto) U Hyaline Cast (Auto) U Epithel Cells (Auto) Urine Bacteria (Auto) Urine Osmolality Diagnostic Findings ULTRASOUND KIDNEYS AND BLADDER Kidneys: The kidneys are atrophic and echogenic consistent with medical renal disease. The right kidney measures 9.5 x 5.3 x 6.8 cm and the left kidney measures 10.3 x 5.0 x 5.5 cm. There is no hydronephrosis. No shadowing renal calculi are identified. A 2.4 cm cyst is noted on the right. There is no sonographic evidence of contour deforming renal mass lesion. No perinephric fluid is identified. Bladder: The bladder is decompressed around a Johnson catheter and not well assessed. Abdomen: There is a small volume of abdominal ascites. The liver is cirrhotic in morphology and spleen appears enlarged. IMPRESSION: 1. The kidneys are atrophic and echogenic consistent with medical renal disease. 2. No hydronephrosis. 3. The bladder was decompressed around a Johnson catheter and could not be assessed. 4. Cirrhosis, splenomegaly, and small volume ascites. PG Care Time/CCT Total # of Minutes Spent Total Time Spent with Patient: Total time spent is greater than 50% in coordination of care (as documented) at patient's floor/unit and/or counseling patient: Coding Level of Care Code 17369 Inpt Consult Level 5 Diagnoses Hyponatremia E87.1 Acute kidney injury superimposed on chronic kidney disease N17.9; N18.9 (HFpEF) heart failure with preserved ejection fraction I50.30 Chronic kidney disease, stage 3a N18.31 MICHAEL (acute kidney injury) N17.9 Acute blood loss anemia D62 Metabolic acidosis E87.2 Hyperkalemia E87.5
[2021-08-16 18:36] LABS: BUN Creatinine Ratio 33.6 (10-20); Calcium 7.9 mg/dl (8.5-10.1); Est GFR (African American) 13.6 ml/min; Est GFR (Non-African American) 11.8 ml/min; Potassium 5.8 mmol/L (3.5-5.1)
[2021-08-16] MEDS: ATORVASTATIN 10 MG TAB PO SCH (20:58)
[2021-08-16] MEDS: rOPINIRole HCL 1 MG TABLET PO SCH (21:02)
--- NOTE | 2021-08-16 21:22 | Cardiology Progress Note ---
Date of Service August 16, 2021 Assessment & Plan (1) MCKEON (dyspnea on exertion): (2) Atrial fibrillation, new onset: (3) CAD (coronary artery disease): (4) Aortic stenosis: (5) Mitral stenosis and incompetence: (6) Elevated troponin: (7) Pericardial effusion: Plan: 1. Dyspnea on exertion: No improvement. Her PCWP was elevated, but no response to diuresis and continues to have declining renal function. This seems may be related to poor renal perfusion. Overall systolic function looks good. It is possible that she has significant diastolic dysfunction made worse by her effusion and a transition to atrial fibrillaiton. 2. Valvular heart disease: Degree of mitral stenosis and aortic stenosis appear unchanged from December of 2020. Unlikely to be playing a role in her current symptoms 3. Atrial fibrillation: No Sense of palpitations. 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 Witholding anticoagulation in the immediate term to facilitate procedure. Hx of recent GI hemorrhage 4. Pericardial effusion: Unclear etiology. Possibly uremic? Elevated chamber pressures on RHC and dilated IVC. Given her lack of improvement and continued decline in renal function I recommended pericardiocentesis. I discussed the risks with the patient and her daughter who have agreed to proceed. 5. Elevated troponin: Actually trending downward from prior admission. No evidence of a recent ACS. Wall motion was normal on her echocardiogram. Admission and Anticipated Discharge Date Admission Date: August 14, 2021 Subjective The patient was seen at the bedside with her daughter. She continues to have dyspnea with activity. At rest she reports feelinig comfortable. No chest pain. No sense of palpitations. Poor appetite. Some nausea. Review of Systems Review of Systems: Per HPI Physical Exam Physical Exam: She is alert and oriented x3. Mood affect appear normal. She answered all questions appropriately. HEENT: Sclerae are anicteric. Pupils are equal and reactive to light and accommodation. Extraocular movements were intact. Neuro: Cranial nerves intact Lungs: Normal respiratory effort. No rales. Some expiratory wheezing. Cardiac: The rhythm was irregular. S1 and S2 were normal. Harsh crescendo systolic murmur. The PMI was not markedly displaced on palpation. Extremities: Patient has bilateral radial pulses that are equal in intensity. There is no evidence cyanosis or clubbing. No significant edema Skin: There are no rashes noted on examination today. Results & Data ([facility]) Vital Signs (Past 12 Hours) Vital Signs Temp Pulse Pulse Resp BP Pulse Ox 08/16/21 19:39 36.2 C L 60 14 118/51 L 97 08/16/21 16:42 54 L 08/16/21 15:35 36.4 C L 56 L 19 117/61 99 08/16/21 11:07 36.9 C 54 L 18 108/56 L 98 Laboratory Results Abnormal Lab Results 08/15/21 08/16/21 08/16/21 16:39 02:17 06:02 WBC 13.78 H RBC 2.92 L Hgb 9.0 L Hct 27.4 L MCV 93.8 MCH 30.8 MCHC 32.8 RDW Std Deviation 47.3 H RDW Coeff of Irasema 13.6 Plt Count 269 MPV 11.1 H POC pH 7.29 L POC pCO2 30 L POC pO2 < 32 L POC HCO3 14 L POC Total CO2 15 L POC Base Excess -12.0 L POC ABG O2 Sat 48.0 L Sodium Potassium Chloride Carbon Dioxide Anion Gap BUN Creatinine Est Cr Clr Drug Dosing Est GFR ( Amer) Est GFR (Non-Af Amer) BUN/Creatinine Ratio Glucose POC Glucose Calcium Magnesium Total Bilirubin AST ALT Alkaline Phosphatase Total Protein Albumin Globulin Albumin/Globulin Ratio Urine Color Urine Appearance Urine pH Ur Specific Hansen Urine Protein Urine Glucose (UA) Urine Ketones Urine Blood Urine Nitrite Urine Bilirubin Urine Urobilinogen Ur Leukocyte Esterase Urine WBC (Auto) Urine RBC (Auto) U Hyaline Cast (Auto) U Epithel Cells (Auto) Urine Bacteria (Auto) Urine Osmolality 315 L 08/16/21 08/16/21 08/16/21 06:02 07:29 07:53 WBC RBC Hgb Hct MCV MCH MCHC RDW Std Deviation RDW Coeff of Irasema Plt Count MPV POC pH POC pCO2 POC pO2 POC HCO3 POC Total CO2 POC Base Excess POC ABG O2 Sat Sodium 127 L Potassium TNP 5.8 H Chloride 101 Carbon Dioxide 14 L Anion Gap 12 H BUN 114 H Creatinine 3.04 H D Est Cr Clr Drug Dosing 12.4 Est GFR ( Amer) 15.7 Est GFR (Non-Af Amer) 13.6 BUN/Creatinine Ratio 37.5 H Glucose 165 H POC Glucose 163 H Calcium 7.7 L Magnesium 2.5 H Total Bilirubin 0.4 AST TNP 11 L ALT 12 Alkaline Phosphatase 233 H Total Protein 5.3 L Albumin 3.1 L Globulin 2.2 L Albumin/Globulin Ratio 1.4 Urine Color Urine Appearance Urine pH Ur Specific Hansen Urine Protein Urine Glucose (UA) Urine Ketones Urine Blood Urine Nitrite Urine Bilirubin Urine Urobilinogen Ur Leukocyte Esterase Urine WBC (Auto) Urine RBC (Auto) U Hyaline Cast (Auto) U Epithel Cells (Auto) Urine Bacteria (Auto) Urine Osmolality 08/16/21 08/16/21 08/16/21 11:24 13:30 16:10 WBC RBC Hgb Hct MCV MCH MCHC RDW Std Deviation RDW Coeff of Irasema Plt Count MPV POC pH POC pCO2 POC pO2 POC HCO3 POC Total CO2 POC Base Excess POC ABG O2 Sat Sodium Potassium Chloride Carbon Dioxide Anion Gap BUN Creatinine Est Cr Clr Drug Dosing Est GFR ( Amer) Est GFR (Non-Af Amer) BUN/Creatinine Ratio Glucose POC Glucose 181 H 172 H Calcium Magnesium Total Bilirubin AST ALT Alkaline Phosphatase Total Protein Albumin Globulin Albumin/Globulin Ratio Urine Color Dark Yellow Urine Appearance Cloudy A Urine pH 5.0 Ur Specific Hansen 1.018 Urine Protein 1+ H Urine Glucose (UA) Negative Urine Ketones Trace H Urine Blood 3+ H Urine Nitrite Negative Urine Bilirubin Negative Urine Urobilinogen Negative Ur Leukocyte Esterase 2+ H Urine WBC (Auto) >30 H Urine RBC (Auto) >30 H U Hyaline Cast (Auto) 10-30 H U Epithel Cells (Auto) 20-30 H Urine Bacteria (Auto) Negative Urine Osmolality 08/16/21 08/16/21 17:54 20:10 WBC RBC Hgb Hct MCV MCH MCHC RDW Std Deviation RDW Coeff of Irasema Plt Count MPV POC pH POC pCO2 POC pO2 POC HCO3 POC Total CO2 POC Base Excess POC ABG O2 Sat Sodium 127 L Potassium 5.8 H Chloride 101 Carbon Dioxide 13 L Anion Gap 13 H BUN 115 H Creatinine 3.42 H D Est Cr Clr Drug Dosing 11.0 Est GFR ( Amer) 13.6 Est GFR (Non-Af Amer) 11.8 BUN/Creatinine Ratio 33.6 H Glucose 223 H POC Glucose 171 H Calcium 7.9 L Magnesium Total Bilirubin AST ALT Alkaline Phosphatase Total Protein Albumin Globulin Albumin/Globulin Ratio Urine Color Urine Appearance Urine pH Ur Specific Hansen Urine Protein Urine Glucose (UA) Urine Ketones Urine Blood Urine Nitrite Urine Bilirubin Urine Urobilinogen Ur Leukocyte Esterase Urine WBC (Auto) Urine RBC (Auto) U Hyaline Cast (Auto) U Epithel Cells (Auto) Urine Bacteria (Auto) Urine Osmolality PG Care Time/CCT Total # of Minutes Spent Total Time Spent with Patient: Total time spent is greater than 50% in coordination of care (as documented) at patient's floor/unit and/or counseling patient: Coding Level of Care Code 39563 Subseq Hosp Care Lvl 3 Diagnoses MCKEON (dyspnea on exertion) R06.00 Atrial fibrillation, new onset I48.91 CAD (coronary artery disease) I25.10 Aortic stenosis I35.0 Mitral stenosis and incompetence I05.2 Elevated troponin R77.8 Pericardial effusion I31.3
[2021-08-17] MEDS: LEVOTHYROXINE SODIUM 112 MCG TABLET PO SCH (06:30)
--- NOTE | 2021-08-17 08:30 | Ultrasound Report ---
US duplex renal artery CLINICAL HISTORY: MICHAEL, renal artery stenosis TECHNIQUE: Real-time grayscale and color and spectral Doppler ultrasound imaging of the kidneys was p erformed. Comparison: None available at the time of this dictation. FINDINGS: Right kidney measures 9.9 cm. Left kidney measures 11.2 cm. RIGHT: Normal echogenicity with preserved corticomedullary differentiation. Normal cortical thickness. No hy dronephrosis. No convincing evidence of calculus or mass. Spectral analysis: Renal artery patent with peak systolic velocity 144 cm/s proximally. LEFT: Normal echogenicity with preserved corticomedullary differentiation. Normal cortical thickness. No hy dronephrosis. No convincing evidence of calculus or mass. Spectral analysis: Renal artery patent with peak systolic velocity 258 cm/s in the midportion. Reference ranges: Normal main renal artery peak systolic velocity less than 180 cm/s. Ratio of renal artery PSV to aort ic PSV less than 3.5 equates to normal or less than 60% stenosis. Only one of the two criteria listed needs to be met for diagnosis. IMPRESSION: Increased peak systolic velocity on the left, concerning for renal artery stenosis. ACT 112: Negative or not required by law. Electronically signed by: Isacc Pak M.D. 08/17/2021 8:28 AM
[2021-08-17] MEDS ORDERED: LIDOCAINE 1% LOCAL 20 ML VIAL ONE (08:31)
[2021-08-17 08:39] LABS: Hematocrit (blood only) 24.2 % (37-47); Hemoglobin 8.1 g/dL (12.0-16.0); Mean Corpuscular Hemoglobin 30.9 pg (25-34); Mean Corpuscular Hgb Conc 33.5 g/dL (32-36); Mean Corpuscular Volume 92.4 fL (80-100); Mean Platelet Volume 10.4 fL (7.4-10.4); Platelet Count 246 K/uL (130-400); RDW Coefficient of Variation 13.7 % (11.5-14.5); RDW Standard Deviation 46.4 fL (36.4-46.3); Red Blood Count 2.62 M/uL (4.2-5.4); White Blood Count 13.68 K/uL (4.8-10.8)
--- NOTE | 2021-08-17 08:44 | Pre Anesthesia Assessment ---
Date of Service August 17, 2021 Pre Sedation Assessment Vital Signs Temp Pulse Pulse Resp BP BP Pulse Ox 08/17/21 08:13 63 22 122/78 08/17/21 07:53 36.4 C L 63 18 123/55 L 96 08/17/21 02:44 36.8 C 62 20 123/61 95 08/17/21 00:19 60 08/16/21 22:45 36.6 C 82 20 120/79 98 08/16/21 19:39 36.2 C L 60 14 118/51 L 97 08/16/21 16:42 54 L 08/16/21 15:35 36.4 C L 56 L 19 117/61 99 08/16/21 11:07 36.9 C 54 L 18 108/56 L 98 Cardiovascular + regular rate Respiratory + respiratory effort normal Pre-Sedation Airway Assessment Smoking Status: Never smoker Hx Sleep Apnea: No Hx Difficult Intubation: No Short, Thick Neck: No Thyromental Distance: > or= 3.5 Finger Breadths Oral Cavity: + Dentures Mallampati Class: III ASA: ASA3 NPO Status Date of Last Intake of Fluids: 08/15/21 Time of Last Intake of Fluids: 07:30 Date of Last Intake of Solid Food: 08/15/21 Time of Last Intake of Solid Foods: 07:30 Procedure Planning Contraindications for Sedation: none Current Medications Reviewed: Yes Notes The planned sedation has been discussed with the patient. Informed Consent was obtained. I have identified the patient, determined the appropriateness of sedation and have assessed the patient immediately prior to the procedure. All medicine(s) and interventions are by my order.
[2021-08-17] MEDS ORDERED: MIDAZOLAM HCL 1 MG/ML 2ML VIAL ONE (08:48)
[2021-08-17] MEDS ORDERED: fentaNYL citrate 100 MCG/2 ML VIAL ONE (08:48)
[2021-08-17 08:49] LABS: BUN Creatinine Ratio 33.1 (10-20); Calcium 7.6 mg/dl (8.5-10.1); Creatinine Clr Calc Pharmacy 9.9 ml/min; Est GFR (African American) 12.1 ml/min; Est GFR (Non-African American) 10.4 ml/min; Magnesium 2.5 mg/dl (1.7-2.4); Potassium 5.8 mmol/L (3.5-5.1)
--- NOTE | 2021-08-17 09:18 | Cardiac Catheterization ---
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 Clinical evaluation leading to the procedure CAD Presenation: Sx unlikely to be ischemic Diagnostic Physicians Name: Ronald Moura MD Closure Device Recommendations: Medical Therapy and/or Counseling Cardiac Cath Procedure Full Procedure Date August 17, 2021 Pre-Procedure Diagnosis Pre-Procedure Diagnosis: CHF AUC Score AUC Score: 7 Post-Procedure Diagnosis Post-Procedure Diagnosis: Elevated Intracardiac Pressures Procedure(s) Performed Procedure(s) Performed: Pericardiocentesis Feed Mill Supervisor Ronald Moura MD Salesperson Flowers(s) none Estimated Blood Loss Estimated Blood Loss: None Medication(s) Medication(s): Lidocaine 1% and Versed Summary of Findings Procedure performed: Pericardiocentesis Staff radon inspector: Ronald Moura MD Indication: The patient is an 81-year-old woman with a history valvular heart disease presented with symptoms dyspnea on exertion. She was noted on recent right heart catheterization to have elevated cardiac filling pressures and evidence of poor perfusion. Procedure in detail: The patient was informed the risks benefits and alternatives to the intended procedure. She understood which proceed. She was taken to the electrophysiology suite in a fasting state. Sedation was administered. The patient was monitored electrocardiographically throughout today's procedure. The chest area was prepped and draped in usual sterile fashion. An area left lateral to the xiphoid process was anesthetized using subcutaneous administration of lidocaine solution. Under ultrasound guidance a needle was advanced into the pericardial space. Location was confirmed with agitated saline. A wire was then passed into the pericardial space in the location confirmed on fluoroscopy prior to insertion of pericardial drain. Pericardial drain was used to evacuate the fluid. This was monitored under ultrasound until there was minimal fluid left. Drain was subsequently secured into place and a sterile dressing was applied. Samples were sent to the lab for culture, cytology and cell count. The patient tolerated procedure well. There were no immediate complications Findings: 342 cc of bloody pericardial fluid Impression: Successful pericardiocentesis 340 cc bloody pericardial fluid. Hemodynamics Rest Ao:: n/a Final Ao: n/a LV: n/a Recommendations Recommendations: Medical Therapy and/or Counseling Specimens Specimens: pericardial fluid Radiation Exposure (mGy) q Contrast (mls) 0 Procedural Complication(s) None Disposition ICU I attest to the content of the Intraoperative Record and any orders documented therein. Any exceptions are noted below. [facility] Card Cath Procedure Codes Therapeutic Services & Ancillary Proc Procedure 1: Cardiovascular Tx and Anc Procedures: 66057 Pericardiocentesis; initial Procedure 2: Cardiovascular Tx and Anc Procedures: 40583 Ultrasonic Guidance Pericardiocentesis PG Care Time/CCT Total # of Minutes Spent Total Time Spent with Patient: Total time spent is greater than 50% in coordination of care (as documented) at patient's floor/unit and/or counseling patient:
--- NOTE | 2021-08-17 09:19 | Post Anesthesia Assessment ---
Date of Service August 17, 2021 Post Sedation Assessment Vital Signs Temp Pulse Pulse Resp BP BP Pulse Ox 08/17/21 08:13 63 22 122/78 08/17/21 07:53 36.4 C L 63 18 123/55 L 96 08/17/21 02:44 36.8 C 62 20 123/61 95 08/17/21 00:19 60 08/16/21 22:45 36.6 C 82 20 120/79 98 08/16/21 19:39 36.2 C L 60 14 118/51 L 97 08/16/21 16:42 54 L 08/16/21 15:35 36.4 C L 56 L 19 117/61 99 08/16/21 11:07 36.9 C 54 L 18 108/56 L 98 Recovery Score Activity: Moves 4 extremities Respiration: Deep Breath/Cough Circulation: +/-20% PreAnes Value Consciousness: Fully Awake Oxygen Saturation: > 92% On Room Air Discharge Sedation Level of Care: Fast Track Phase II Post Sedation Plan On clinical assessment, the patient appears to have tolerated the sedation without complications. Patient is recovering as anticipated. Patient will continue to be monitored by nursing and may be discharged when sedation discharge criteria are met per below protocol. Upon Completions of procedure up to 15 minutes continue every 5 minute vital signs and the P.A.R. score; then discharge to a Phase I or Fast Track to Phase II per the following guidelines: * Discharge Patient to appropriate Phase II area if PAR is 8 or greater or return to pre- procedure baseline. The post - procedure orders will be as directed. * If PAR score is less than 8 or not return to pre-procedure baseline then patient will follow Phase I monitoring till PAR is reached for Phase II. The Phase I may be done in procedure room or may call to secure a Phase I area. * If naloxone or flumazenil are used for reversal, hold in Phase I for continued monitoring from when last reversal dose was given for a minimum of 60 minutes or longer pending the nurse and/or physician discretion of patient condition before discharge to Phase II. Please call the Sedation Physician to re-evaluate and complete post-note for discharge to Phase II area. Do NOT discharge from procedure sedation or Phase 1 until post- sedation evaluation note is complete by procedure /sedation MD Sedation Discharge Instructions to be given to the patient at discharge to home.
[2021-08-17] MEDS: INSULIN ASPART PER UNIT SC SCH ×4 (10:59→21:57)
[2021-08-17] MEDS: HEPARIN SOD 5,000 UNIT/0.5 ML VIAL SQ SCH ×2 (11:00→21:57)
[2021-08-17] MEDS: DOCUSATE SODIUM 100 MG CAP PO SCH (11:00)
--- NOTE | 2021-08-17 11:29 | XCELERA ---
[id number]
--- NOTE | 2021-08-17 11:30 | XCELERA ---
[id number] \\[id number]
[2021-08-17] MEDS: SERTRALINE HCL 50 MG TABLET PO SCH (11:50)
[2021-08-17] MEDS: FERROUS SULFATE 325 MG TAB PO SCH (11:50)
[2021-08-17] MEDS: BETHANECHOL CHL 25 MG TAB PO SCH ×2 (11:50→23:03)
[2021-08-17] MEDS: PANTOprazole 40 MG TAB PO SCH ×2 (11:50→23:03)
[2021-08-17] MEDS: CALCIUM 600MG + VIT D 400 IU TAB PO SCH (11:50)
[2021-08-17] MEDS: DOXAZosin MESYLATE 4 MG TAB PO SCH (11:51)
[2021-08-17] MEDS: TAMSULOSIN HCL 0.4 MG CAP PO SCH (11:51)
[2021-08-17] MEDS ORDERED: PATIROMER CALCIUM SORBITEX 8.4 GM PACK PO ONE ×2 (11:53→19:00)
[2021-08-17] MEDS ORDERED: SODIUM BICARBONATE 650 MG TAB PO ONE (11:54)
--- NOTE | 2021-08-17 12:22 | Nephrology Progress Note ---
Date of Service August 17, 2021 Assessment & Plan (1) Acute kidney injury superimposed on chronic kidney disease: Plan: CKD III A3.Baseline creatinine 1.5-1.7 mg/dL. Proteinuria quantified at 1.6 g/g.CKD attributed to underlying vascular disease with ZBIGNIEW and hypertension. Kidneys atrophic on imaging R>L. Renal duplex in December 2020 suggestive of R>L ZBIGNIEW. MICHAEL consistent with predominately prerenal physiology which appears to be potentially hemodynamically mediated. I suspect acute CRS in the setting of severe , mitral stenosis, atrial fibrillation, diastolic dysfunction, pericardial effusion, and predominately right heart failure. Improved hemodynamics noted. Pericardiocentesis completed. Unfortunately, we continue to see concerning features of advanced kidney dysfunction including hyperkalemia, hyponatremia, metabolic acidosis, and low UOP. Thankfully, there is no emergent indication for dialysis. Additional supportive care with close monitoring will be provided. Medical management for hyperkalemia, metabolic acidosis, and anemia has been or dered. (2) Hyperkalemia: Plan: Additional Patiromer 8.4 grams today. HCO3 replacement ordered. Low potassium diet. Tele monitor. Repeat metabolic profile ordered for this afternoon. (3) Acute hyponatremia: Plan: Free water restriction to <1.5 L daily. Document strict I/O's. Diuretics held. Encourage dietary protein. (4) Metabolic acidosis: Plan: Additional 1300 mg PO NaHCO3 now. Repeat metabolic profile this afternoon. (5) Anemia: Plan: Tsat 4. H/H stable. Venofer 200 mg IV now. Epogen Admission and Anticipated Discharge Date Admission Date: August 14, 2021 Subjective s/p pericardiocentesis this AM: 350 ml of bloody fluid removed. Transferred to ICU in stable condition. AM labs reviewed but I was not able to see the patient while she was at the procedure. Renal artery duplex reviewed with Dr. Pak this AM. Sully was seen and evaluated in the ICU this afternoon. I reviewed recent history and progression of kidney dysfunction with her daughter (Cher) by phone. We discussed dialysis as a potential treatment option. Goals of care were reviewed. Sully would consider dialysis, if indicated. I also spoke to Dr. 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 Review of Systems Constitutional: + weakness; no problem reported Eyes: no problem reported Ear, Nose, Mouth, Throat: no problem reported Respiratory: + dyspnea on exertion and + pain with cough; no problem reported Cardiovascular: no problem reported Gastrointestinal: no problem reported Musculoskeletal: no problem reported Integumentary: no problem reported Neurologic: + tremor(s); no problem reported Psychiatric: no problem reported Endocrine: no problem reported Hematologic / Lymphatic: no problem reported Physical Exam Constitutional: + frail appearing; no acute distress Eyes: + anicteric sclerae; no corneal abnormality ENMT: Mouth: no oral mucosal abnormality and oral mucous membranes not dry Neck: normal visual inspection and trachea midline Respiratory: normal respiratory effort; no labored breathing Auscultation: lungs clear to auscultation bilaterally Cardiovascular: Rate/Rhythm: regular rate Heart Sounds: normal S1, normal S2 and + murmur Extremities: + edema Musculoskeletal: Extremities: no cyanosis and no clubbing Skin: + turgor decreased; no lesions Neurologic: Motor/Sensory: no tremor and no asterixis Psychiatric: Orientation: alert and oriented x 3 Results & Data ([facility]) Vital Signs (Past 12 Hours) Vital Signs Temp Pulse Pulse Resp BP BP Pulse Ox 08/17/21 10:30 59 L 18 132/58 L 96 08/17/21 10:15 59 L 18 138/40 L 97 08/17/21 10:00 59 L 18 136/41 L 96 08/17/21 09:45 58 L 18 134/69 97 08/17/21 09:30 68 18 153/84 H 93 08/17/21 08:13 63 22 122/78 08/17/21 07:53 36.4 C L 63 18 123/55 L 96 08/17/21 02:44 36.8 C 62 20 123/61 95 Laboratory Results Laboratory Results - last 24 hr 08/16/21 08/16/21 08/16/21 13:30 16:10 17:54 WBC RBC Hgb Hct MCV MCH MCHC RDW Std Deviation RDW Coeff of Irasema Plt Count MPV Sodium 127 L Potassium 5.8 H Chloride 101 Carbon Dioxide 13 L Anion Gap 13 H BUN 115 H Creatinine 3.42 H D Est Cr Clr Drug Dosing 11.0 Est GFR ( Amer) 13.6 Est GFR (Non-Af Amer) 11.8 BUN/Creatinine Ratio 33.6 H Glucose 223 H POC Glucose 172 H Calcium 7.9 L Magnesium Iron TIBC Unsaturated IBC Transferrin % Sat Ferritin Cortisol AM Sample Urine Color Dark Yellow Urine Appearance Cloudy A Urine pH 5.0 Ur Specific [place] 1.018 Urine Protein 1+ H Urine Glucose (UA) Negative Urine Ketones Trace H Urine Blood 3+ H Urine Nitrite Negative Urine Bilirubin Negative Urine Urobilinogen Negative Ur Leukocyte Esterase 2+ H Urine WBC (Auto) >30 H Urine RBC (Auto) >30 H U Hyaline Cast (Auto) 10-30 H U Epithel Cells (Auto) 20-30 H Urine Bacteria (Auto) Negative 08/16/21 08/17/21 08/17/21 20:10 07:44 07:44 WBC RBC Hgb Hct MCV MCH MCHC RDW Std Deviation RDW Coeff of Irasema Plt Count MPV Sodium Potassium Chloride Carbon Dioxide Anion Gap BUN Creatinine Est Cr Clr Drug Dosing Est GFR ( Amer) Est GFR (Non-Af Amer) BUN/Creatinine Ratio Glucose POC Glucose 171 H Calcium Magnesium Iron TIBC Unsaturated IBC Transferrin % Sat Ferritin 184.3 Cortisol AM Sample 28.23 H Urine Color Urine Appearance Urine pH Ur Specific [place] Urine Protein Urine Glucose (UA) Urine Ketones Urine Blood Urine Nitrite Urine Bilirubin Urine Urobilinogen Ur Leukocyte Esterase Urine WBC (Auto) Urine RBC (Auto) U Hyaline Cast (Auto) U Epithel Cells (Auto) Urine Bacteria (Auto) 08/17/21 08/17/21 08/17/21 07:44 07:44 11:30 WBC 13.68 H RBC 2.62 L Hgb 8.1 L Hct 24.2 L MCV 92.4 MCH 30.9 MCHC 33.5 RDW Std Deviation 46.4 H RDW Coeff of Irasema 13.7 Plt Count 246 MPV 10.4 Sodium 127 L Potassium 5.8 H Chloride 100 Carbon Dioxide 14 L Anion Gap 13 H BUN 125 H Creatinine 3.78 H D Est Cr Clr Drug Dosing 9.9 Est GFR ( Amer) 12.1 Est GFR (Non-Af Amer) 10.4 BUN/Creatinine Ratio 33.1 H Glucose 147 H POC Glucose 147 H Calcium 7.6 L Magnesium 2.5 H Iron 10 L TIBC 262 Unsaturated IBC 252 Transferrin % Sat 4 L Ferritin Cortisol AM Sample Urine Color Urine Appearance Urine pH Ur Specific [place] Urine Protein Urine Glucose (UA) Urine Ketones Urine Blood Urine Nitrite Urine Bilirubin Urine Urobilinogen Ur Leukocyte Esterase Urine WBC (Auto) Urine RBC (Auto) U Hyaline Cast (Auto) U Epithel Cells (Auto) Urine Bacteria (Auto) PG Care Time/CCT Total # of Minutes Spent Total Time Spent with Patient: Total time spent is greater than 50% in coordination of care (as documented) at patient's floor/unit and/or counseling patient: Coding Level of Care Code 12933 Subseq Hosp Care Lvl 3 Diagnoses Hyperkalemia E87.5 Acute hyponatremia E87.1 Acute kidney injury superimposed on chronic kidney disease N17.9; N18.9 Metabolic acidosis E87.2 Anemia D64.9
[2021-08-17] MEDS: amLODIPine BESYLATE 5 MG TAB PO SCH (12:29)
--- NOTE | 2021-08-17 12:35 | XRay Report ---
XR chest 1V portable CLINICAL HISTORY: pericardiocentesis. Evaluate for ptx. COMPARISON STUDY: 08/16/2021 TECHNIQUE: 1 view of the chest FINDINGS: Single frontal view of the chest demonstrates the heart to again be enlarged. There has been interval development of central vascular congestion. No peripheral interstitial edema is seen. There is again left pleural effusion with left lower lobe atelectasis/collapse. Small right pleural e ffusion is also present. There is no evidence for confluent alveolar opacity. There is no acute osseo us pathology. IMPRESSION: 1. Interval development of central vascular congestion with no evidence for pneumothorax. 2. There are again bilateral pleural effusions, left greater than right with left lower lobe atelecta sis/collapse. ACT 112: Negative or not required by law. Electronically signed by: Jose Mo M.D. 08/17/2021 12:32 PM
[2021-08-17] MEDS ORDERED: IRON SUCROSE 200 MG in 0.9 % SODIUM CHLORIDE 100 ML IV ONE (13:00)
--- NOTE | 2021-08-17 14:07 | Hospitalist Progress Note ---
Date of Service August 17, 2021 Assessment & Plan (1) (HFpEF) heart failure with preserved ejection fraction: Plan: Per prior notes, appeared slightly hypervolemic on admission, with ongoing shortness of breath, orthopnea. Vascular congestion noted on CXR. - Held home Lasix, opted for 80 mg IV Lasix twice daily. - Dry weight reported 159 pounds. - I&O's, daily weights. - Cardiology consulted - RHC on 08/15 showed following: * RA 15 * PA 46/19 * PCW 19 * RV 41/10 * CI 2.62 (normal 2.5 - 4.0) -> Initially thought this indicated continued volume overload as PCWP is roughly 2x what it should be. She was given Lasix 60 mg IV once after her RHC in discussion with cardiology. On 08/16, Cr was up significantly. Lasix held. Pericardiocentesis on 08/17 with about 350 mL bloody drainage. Sent for culture, cell count, cytology. Ddx for bloody pericardial fluid is generally iatrogenic (from cath procedure; this is unlikely), malignancy (26%), complications of arthrosclerotic disease (11%), and idiopathic (10%). (PMID:[id number]) (2) Acute kidney injury superimposed on chronic kidney disease: Plan: - Cr 1.91, baseline 1.21.4. With CKD 3. - Avoid nephrotoxins, renally dose as able. - Monitor BMP -> Cr up today to 3.8. BUN > 100. Holding Lasix for now. - Renal u/s on 08/16 without hydronephrosis. - Nephrology consulted -> Appreciate assistance. No indication for HD presently, but will need to work to lower K+. (3) Hyponatremia: Plan: Na was 126. May be contributing to general weakness. - Continue to follow on BMP - Urine osms were 315 on 08/16 (4) Aortic stenosis: Plan: Follows with cardiology, has been consulted while she is here. - Watch volume status. (5) Mitral stenosis and incompetence: Plan: Follows with cardiology, has been consulted while she is here. - Watch volume status. (6) Diabetes mellitus type 2 with complications: Plan: Per recent A1c's, is well controlled. They have been from 4.7%6.6% over the last 2 years. - Hold oral agents, cover with SSI w/out carb coverage. (7) CAD (coronary artery disease): Plan: Chronic, stable. - Continue statin, antihypertensives, Plavix. - Troponin very minimally elevated lower than troponin from prior ED visit. Likely mildly elevated in setting of MICHAEL/CKD. - On telemetry. - Cardiology following. (8) History of CVA (cerebrovascular accident): Plan: Had Plavix held on last admission due to GI bleed. - Continue to hold Plavix. (9) Hypertension: Plan: BP stable today at 130/50. - Continue amlodipine - Hold losartan for now due to MICHAEL. (10) Hypothyroidism: Plan: - Continue levothyroxine. (11) Restless legs: Plan: - Continue ropinirole. (12) History of GI bleed: Plan: - Hospitalized earlier this month requiring 2 units of transfusion. EGD deferred at that time due to elevated troponin. Was thought it may be due to AVMs, she has increased risk for this due to her aortic stenosis. - Continue Protonix twice daily. - Hgb appears stable, continue to trend on a.m. labs. Plan: - SCDs for DVT PPx. Admission and Anticipated Discharge Date Admission Date: August 14, 2021 Subjective Doing well after pericardiocentesis. Her daughter feels maybe she is making more urine. Had some pressure during the procedure in the chest area, but feeling well now. Reports no fevers/chills, chest pain, shortness of breath, abdominal pain, nausea, or vomiting. Physical Exam Constitutional: WD/WN, vitals as above Eyes: EOM intact bilaterally; no conjunctival abnormality ENMT: external ear and nose normal, oropharynx normal Neck: trachea midline, no thyromegaly normal visual inspection Respiratory: normal respiratory effort, lungs clear to auscultation no respiratory distress Cardiovascular: RRR, no murmur, no edema Gastrointestinal (Abdomen): Inspection/Auscultation: abdomen normal to inspection; abdomen not distended Musculoskeletal: no cyanosis or clubbing, extremities motor strength 5/5 Skin: no rashes, warm and dry Neurologic: moves all extremities and awake Psychiatric: Orientation: alert, oriented to person and cooperative Results & Data Results & Data ([facility]) Vital Signs (Past 12 Hours) Vital Signs Temp Pulse Pulse Resp BP BP Pulse Ox 08/17/21 14:00 61 08/17/21 12:00 62 19 128/51 L 08/17/21 11:30 61 19 128/49 L 08/17/21 11:15 64 18 144/50 H 97 08/17/21 11:00 59 L 20 138/46 L 97 08/17/21 10:45 62 18 147/44 H 99 08/17/21 10:30 59 L 18 132/58 L 96 08/17/21 10:15 59 L 18 138/40 L 97 08/17/21 10:00 59 L 18 136/41 L 96 08/17/21 09:45 58 L 18 134/69 97 08/17/21 09:30 68 18 153/84 H 93 08/17/21 08:13 63 22 122/78 08/17/21 07:53 36.4 C L 63 18 123/55 L 96 08/17/21 02:44 36.8 C 62 20 123/61 95 PG Care Time/CCT Total # of Minutes Spent Total Time Spent with Patient: Total time spent is greater than 50% in coordination of care (as documented) at patient's floor/unit and/or counseling patient: Coding Level of Care Code 61128 Subseq Hosp Care Lvl 3 Diagnoses (HFpEF) heart failure with preserved ejection fraction I50.30 Acute kidney injury superimposed on chronic kidney disease N17.9; N18.9 Hyponatremia E87.1 Aortic stenosis I35.0 Mitral stenosis and incompetence I05.2 Diabetes mellitus type 2 with complications E11.8 CAD (coronary artery disease) I25.10 History of CVA (cerebrovascular accident) Z86.73 Hypertension I10 Hypothyroidism E03.9 Restless legs G25.81 History of GI bleed Z87.19
[2021-08-17 15:02] LABS: Pericardial Fluid Appearance BLOODY; Pericardial Fluid Color RED; RBC Pericardial Fluid (A) 824000 /uL; WBC Pericardial Fluid (A) 4850 /ul
[2021-08-17 15:07] LABS: Eosinophils, Fluid 0 %; Lymphocytes, Fluid 18 %; Mono,Macrophage,Mesothelial 6 %; Neutrophils, Fluid 76 %
[2021-08-17 16:15] LABS: BUN Creatinine Ratio 32.1 (10-20); Calcium 7.4 mg/dl (8.5-10.1); Creatinine Clr Calc Pharmacy 9.5 ml/min; Est GFR (African American) 11.4 ml/min; Est GFR (Non-African American) 9.9 ml/min; Phosphorus 7.2 mg/dl (2.5-4.9); Potassium 5.8 mmol/L (3.5-5.1)
[2021-08-17] MEDS: rOPINIRole HCL 0.25 MG TABLET PO SCH (16:57)
[2021-08-17] MEDS ORDERED: EPOETIN ALFA 10,000 UNITS/ML VIAL SQ ONE (17:17)
--- NOTE | 2021-08-17 19:04 | Cardiology Progress Note ---
Date of Service August 17, 2021 Assessment & Plan (1) MCKEON (dyspnea on exertion): (2) Atrial fibrillation, new onset: (3) CAD (coronary artery disease): (4) Aortic stenosis: (5) Mitral stenosis and incompetence: (6) Elevated troponin: (7) Pericardial effusion: Plan: 1. Dyspnea on exertion: She did not appear markedly improved this afternoon. Still quite dyspneic. I was hopeful that reducing the pericardial pressures would improve cardiac filling and output. Clinically this does not appear to have been the case. 2. Valvular heart disease: Degree of mitral stenosis and aortic stenosis appear unchanged from December of 2020. Unlikely to be playing a role in her current symptoms 3. Atrial fibrillation: No Sense of palpitations. 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 Witholding anticoagulation in the immediate term to facilitate procedure. Hx of recent GI hemorrhage 4. Pericardial effusion: Unclear etiology. Serosanguineous fluid drained. Likely inflammatory. Less likely would be malignancy. She did not have a marked change in her hemodynamics subsequent to drainage. It is not clear what role this is playing in her decompensation, but she has not been markedly improved this evening. Will continue to drain any residual fluid. Waiting final laboratory cultures. 5. Elevated troponin: Actually trending downward from prior admission. No evidence of a recent ACS. Wall motion was normal on her echocardiogram. Admission and Anticipated Discharge Date Admission Date: August 14, 2021 Subjective This evening patient still complains of dyspnea with activity. She does have bowel movement. She was mildly dyspneic but reports feeling better when she has rested. She has some discomfort in her buttocks from lying in bed so long. Minimal chest pain. Review of Systems Review of Systems: Per HPI Physical Exam Physical Exam: She is alert and oriented x3. Mood affect appear normal. She answered all questions appropriately. HEENT: Sclerae are anicteric. Pupils are equal and reactive to light and accommodation. Extraocular movements were intact. Neuro: Cranial nerves intact Lungs: Some increased respiratory effort. Mild expiratory wheezing. Cardiac: The rhythm was irregular. S1 and S2 were normal. Harsh crescendo systolic murmur. The PMI was not markedly displaced on palpation. Chest: Pericardial drain in place. Extremities: Patient has bilateral radial pulses that are equal in intensity. There is no evidence cyanosis or clubbing. No significant edema Skin: There are no rashes noted on examination today. Results & Data ([facility]) Vital Signs (Past 12 Hours) Vital Signs Temp Pulse Pulse Resp BP BP Pulse Ox 08/17/21 17:30 64 24 94 08/17/21 17:01 64 22 131/58 L 96 08/17/21 17:00 67 18 83 L 08/17/21 16:30 61 27 H 96 08/17/21 16:00 61 22 123/72 93 08/17/21 15:30 60 24 95 08/17/21 15:00 61 20 125/38 L 08/17/21 14:30 61 21 94 08/17/21 14:00 61 21 130/48 L 94 08/17/21 13:30 60 24 97 08/17/21 13:00 60 22 128/68 98 08/17/21 12:30 59 L 23 96 08/17/21 12:00 62 19 128/51 L 08/17/21 11:30 61 19 128/49 L 08/17/21 11:15 64 18 144/50 H 97 08/17/21 11:00 59 L 20 138/46 L 97 08/17/21 10:45 62 18 147/44 H 99 08/17/21 10:30 59 L 18 132/58 L 96 08/17/21 10:15 59 L 18 138/40 L 97 08/17/21 10:00 59 L 18 136/41 L 96 08/17/21 09:45 58 L 18 134/69 97 08/17/21 09:30 68 18 153/84 H 93 08/17/21 08:13 63 22 122/78 08/17/21 07:53 36.4 C L 63 18 123/55 L 96 Laboratory Results Abnormal Lab Results 08/16/21 08/17/21 08/17/21 20:10 07:44 07:44 WBC RBC Hgb Hct MCV MCH MCHC RDW Std Deviation RDW Coeff of Irasema Plt Count MPV Sodium Potassium Chloride Carbon Dioxide Anion Gap BUN Creatinine Est Cr Clr Drug Dosing Est GFR ( Amer) Est GFR (Non-Af Amer) BUN/Creatinine Ratio Glucose POC Glucose 171 H Calcium Phosphorus Magnesium Iron TIBC Unsaturated IBC Transferrin % Sat Ferritin 184.3 Albumin Cortisol AM Sample 28.23 H Fluid Neutrophils % Fluid Lymphocytes % Fluid Eosinophils % Fluid [place] % Fluid Comment Pericard Color Pericard Appearance Pericard WBC Pericard RBC Nasal Screen MRSA (PCR) 08/17/21 08/17/21 08/17/21 07:44 07:44 10:47 WBC 13.68 H RBC 2.62 L Hgb 8.1 L Hct 24.2 L MCV 92.4 MCH 30.9 MCHC 33.5 RDW Std Deviation 46.4 H RDW Coeff of Irasema 13.7 Plt Count 246 MPV 10.4 Sodium 127 L Potassium 5.8 H Chloride 100 Carbon Dioxide 14 L Anion Gap 13 H BUN 125 H Creatinine 3.78 H D Est Cr Clr Drug Dosing 9.9 Est GFR ( Amer) 12.1 Est GFR (Non-Af Amer) 10.4 BUN/Creatinine Ratio 33.1 H Glucose 147 H POC Glucose Calcium 7.6 L Phosphorus Magnesium 2.5 H Iron 10 L TIBC 262 Unsaturated IBC 252 Transferrin % Sat 4 L Ferritin Albumin Cortisol AM Sample Fluid Neutrophils % Fluid Lymphocytes % Fluid Eosinophils % Fluid [place] % Fluid Comment Pericard Color Pericard Appearance Pericard WBC Pericard RBC Nasal Screen MRSA (PCR) Negative 08/17/21 08/17/21 08/17/21 11:30 15:10 16:44 WBC RBC Hgb Hct MCV MCH MCHC RDW Std Deviation RDW Coeff of Irasema Plt Count MPV Sodium 126 L Potassium 5.8 H Chloride 99 Carbon Dioxide 14 L Anion Gap 13 H BUN 127 H Creatinine 3.96 H Est Cr Clr Drug Dosing 9.5 Est GFR ( Amer) 11.4 Est GFR (Non-Af Amer) 9.9 BUN/Creatinine Ratio 32.1 H Glucose 144 H POC Glucose 147 H 168 H Calcium 7.4 L Phosphorus 7.2 H Magnesium Iron TIBC Unsaturated IBC Transferrin % Sat Ferritin Albumin 3.0 L Cortisol AM Sample Fluid Neutrophils % Fluid Lymphocytes % Fluid Eosinophils % Fluid [place] % Fluid Comment Pericard Color Pericard Appearance Pericard WBC Pericard RBC Nasal Screen MRSA (PCR) 08/17/21 Unknown WBC RBC Hgb Hct MCV MCH MCHC RDW Std Deviation RDW Coeff of Irasema Plt Count MPV Sodium Potassium Chloride Carbon Dioxide Anion Gap BUN Creatinine Est Cr Clr Drug Dosing Est GFR ( Amer) Est GFR (Non-Af Amer) BUN/Creatinine Ratio Glucose POC Glucose Calcium Phosphorus Magnesium Iron TIBC Unsaturated IBC Transferrin % Sat Ferritin Albumin Cortisol AM Sample Fluid Neutrophils % 76 Fluid Lymphocytes % 18 Fluid Eosinophils % 0 Fluid [place] % 6 Fluid Comment Pericard Color RED Pericard Appearance BLOODY Pericard WBC 4850 Pericard RBC [id number] Nasal Screen MRSA (PCR) PG Care Time/CCT Total # of Minutes Spent Total Time Spent with Patient: Total time spent is greater than 50% in coordination of care (as documented) at patient's floor/unit and/or counseling patient: Coding Level of Care Code 08723 Subseq Hosp Care Lvl 3 Diagnoses MCKEON (dyspnea on exertion) R06.00 Atrial fibrillation, new onset I48.91 CAD (coronary artery disease) I25.10 Aortic stenosis I35.0 Mitral stenosis and incompetence I05.2 Elevated troponin R77.8 Pericardial effusion I31.3
--- NOTE | 2021-08-17 19:05 | Communication Note ---
Date of Service: August 17, 2021 Using sterile technique, additional 37 cc of serosanguineous fluid was drained from the pericardial drain.
--- NOTE | 2021-08-17 19:21 | Electrocardiogram Report ---
Test Reason : Blood Pressure : / mmHG Vent. Rate : 060 BPM Atrial Rate : 234 BPM P-R Int : 000 ms QRS Dur : 082 ms QT Int : 450 ms P-R-T Axes : 000 -10 014 degrees QTc Int : 450 ms Atrial fibrillation Right bundle branch block Low voltage QRS Abnormal ECG When compared with ECG of 14-AUG-2021 16:00, Right bundle branch block is no longer Present Confirmed by Ronald Moura ([id number]) on 08/17/2021 7:20:56 PM Referred By: REFERRED SELF Confirmed By:Chris Moura
[2021-08-17] MEDS ORDERED: SODIUM BICARBONATE 650 MG TAB PO SCH (21:00)
[2021-08-17] MEDS: rOPINIRole HCL 1 MG TABLET PO SCH (23:02)
[2021-08-17] MEDS: ATORVASTATIN 10 MG TAB PO SCH (23:03)
[2021-08-18] MEDS ORDERED: NYSTATIN POWDER 15GM BTL EXT PRN (03:54)
[2021-08-18 05:42] LABS: Hematocrit (blood only) 24.3 % (37-47); Hemoglobin 8.1 g/dL (12.0-16.0); Mean Corpuscular Hemoglobin 30.3 pg (25-34); Mean Corpuscular Hgb Conc 33.3 g/dL (32-36); Mean Platelet Volume 10.5 fL (7.4-10.4); Platelet Count 244 K/uL (130-400); RDW Coefficient of Variation 13.8 % (11.5-14.5); RDW Standard Deviation 46.2 fL (36.4-46.3); Red Blood Count 2.67 M/uL (4.2-5.4); White Blood Count 11.88 K/uL (4.8-10.8)
[2021-08-18] MEDS: LEVOTHYROXINE SODIUM 112 MCG TABLET PO SCH (06:10)
[2021-08-18 06:22] LABS: Albumin Level 2.9 gm/dl (3.4-5.0); BUN Creatinine Ratio 30.9 (10-20); Calcium 7.5 mg/dl (8.5-10.1); Creatinine Clr Calc Pharmacy 8.5 ml/min; Est GFR (African American) 10.1 ml/min; Est GFR (Non-African American) 8.7 ml/min; Phosphorus 7.2 mg/dl (2.5-4.9); Potassium 5.5 mmol/L (3.5-5.1)
[2021-08-18] MEDS ORDERED: IRON SUCROSE 200 MG in 0.9 % SODIUM CHLORIDE 100 ML IV ONE (08:30)
--- NOTE | 2021-08-18 08:46 | Nephrology Progress Note ---
Date of Service August 18, 2021 Assessment & Plan (1) Acute kidney injury superimposed on chronic kidney disease: Plan: CKD III A3 with a baseline creatinine of 1.5-1.7 mg/dL. Proteinuria quantified at 1.6 g/g.CKD attributed to underlying vascular disease with ZBIGNIEW and hypertension. Kidneys atrophic on imaging R>L. Renal duplex in December 2020 suggestive of R>L ZBIGNIEW. Follow up imaging demonstrating L sided ZBIGNIEW. MICHAEL consistent with predominately prerenal physiology which appears to be potentially hemodynamically mediated. I suspect acute CRS in the setting of severe , mitral stenosis, atrial fibrillation, diastolic dysfunction, pericardial effusion, and predominately right heart failure. CRS is superimposed on decreased renal perfusion from underlying renovascular disease. Unfortunately, despite improved hemodynamics, there has not been evidence of renal recovery. There are notable concerning features of advanced kidney dysfunction including severe azotemia, hyperkalemia, hyponatremia, and metabolic acidosis. There is no emergent indication for dialysis but I discussed potential future indications with Sully this AM. We may need to consider POLICY CHECKER for clearance, if we do not see evidence of renal recovery in the next 24 hours. Medical management for hyperkalemia, metabolic acidosis, and anemia has been ordered. (2) Hyperkalemia: Plan: Additional Patiromer 8.4 grams today. HCO3 replacement ordered. Low potassium diet. Tele monitor. Repeat metabolic profile ordered for this afternoon. (3) Acute hyponatremia: Plan: Free water restriction to <1.5 L daily. Document strict I/O's. Diuretics held. Encourage dietary protein. (4) Metabolic acidosis: Plan: Will start NaHCO3 gtt for now. Repeat metabolic profile this afternoon. (5) Anemia: Plan: With CKD and iron deficiency. Venofer 200 mg IV provided yesterday. Additional 200 mg IV now. Epogen 34577 units x 1 dose yesterday. Admission and Anticipated Discharge Date Admission Date: August 14, 2021 Subjective No acute events overnight. UOP ~150 ml/shift. Additional ~40 ml via pericardial drain. Sully reports persistent weakness. She continues to report some dyspnea with fairly minimal activity. She denies significant chest pain. Breathing comfortably at rest. Denies nausea. Appetite is good. Review of Systems Review of Systems: All systems reviewed & are unremarkable except as noted in HPI & below Physical Exam Constitutional: + frail appearing; no acute distress Eyes: + anicteric sclerae; no corneal abnormality ENMT: Mouth: no oral mucosal abnormality and oral mucous membranes not dry Neck: normal visual inspection and trachea midline Respiratory: normal respiratory effort; no labored breathing Auscultation: lungs clear to auscultation bilaterally Cardiovascular: Rate/Rhythm: regular rate Heart Sounds: normal S1, normal S2 and + murmur Extremities: + edema Musculoskeletal: Extremities: no cyanosis and no clubbing Skin: + turgor decreased; no lesions Neurologic: Motor/Sensory: no tremor and no asterixis Psychiatric: Orientation: alert and oriented x 3 Results & Data ([facility]) Vital Signs (Past 12 Hours) Vital Signs Temp Pulse Pulse Resp BP BP Pulse Ox 08/18/21 08:26 62 21 130/46 L 96 08/18/21 03:53 36.7 C 61 21 129/43 L 96 08/18/21 00:00 62 25 H 95 08/17/21 23:00 37 C 63 19 119/49 L 95 08/17/21 22:00 63 22 131/45 L 94 08/17/21 21:00 64 24 137/59 L 95 Laboratory Results Laboratory Results - last 24 hr 08/17/21 08/17/21 08/17/21 07:44 07:44 07:44 WBC RBC Hgb Hct MCV MCH MCHC RDW Std Deviation RDW Coeff of Irasema Plt Count MPV Sodium 127 L Potassium 5.8 H Chloride 100 Carbon Dioxide 14 L Anion Gap 13 H BUN 125 H Creatinine 3.78 H D Est Cr Clr Drug Dosing 9.9 Est GFR ( Amer) 12.1 Est GFR (Non-Af Amer) 10.4 BUN/Creatinine Ratio 33.1 H Glucose 147 H POC Glucose Calcium 7.6 L Phosphorus Magnesium 2.5 H Iron 10 L TIBC 262 Unsaturated IBC 252 Transferrin % Sat 4 L Ferritin 184.3 Albumin Cortisol AM Sample 28.23 H Ur Random Sodium Fluid Neutrophils % Fluid Lymphocytes % Fluid Eosinophils % Fluid [place] % Fluid Comment Pericard Color Pericard Appearance Pericard WBC Pericard RBC Pericardial Albumin Nasal Screen MRSA (PCR) Stool Occult Bld Scrn Hep Bs Antigen Hep Bs Ag Confirmation Hep Bs Antibody, Quant Hep B Core IgM Ab 08/17/21 08/17/21 08/17/21 10:47 11:30 15:10 WBC RBC Hgb Hct MCV MCH MCHC RDW Std Deviation RDW Coeff of Irasema Plt Count MPV Sodium 126 L Potassium 5.8 H Chloride 99 Carbon Dioxide 14 L Anion Gap 13 H BUN 127 H Creatinine 3.96 H Est Cr Clr Drug Dosing 9.5 Est GFR ( Amer) 11.4 Est GFR (Non-Af Amer) 9.9 BUN/Creatinine Ratio 32.1 H Glucose 144 H POC Glucose 147 H Calcium 7.4 L Phosphorus 7.2 H Magnesium Iron TIBC Unsaturated IBC Transferrin % Sat Ferritin Albumin 3.0 L Cortisol AM Sample Ur Random Sodium Fluid Neutrophils % Fluid Lymphocytes % Fluid Eosinophils % Fluid Meso/Macro/[place] % Fluid Comment Pericard Color Pericard Appearance Pericard WBC Pericard RBC Pericardial Albumin Nasal Screen MRSA (PCR) Negative Stool Occult Bld Scrn Hep Bs Antigen Hep Bs Ag Confirmation Hep Bs Antibody, Quant Hep B Core IgM Ab 08/17/21 08/17/21 08/17/21 16:44 19:31 Unknown WBC RBC Hgb Hct MCV MCH MCHC RDW Std Deviation RDW Coeff of Irasema Plt Count MPV Sodium Potassium Chloride Carbon Dioxide Anion Gap BUN Creatinine Est Cr Clr Drug Dosing Est GFR ( Amer) Est GFR (Non-Af Amer) BUN/Creatinine Ratio Glucose POC Glucose 168 H 221 H Calcium Phosphorus Magnesium Iron TIBC Unsaturated IBC Transferrin % Sat Ferritin Albumin Cortisol AM Sample Ur Random Sodium Fluid Neutrophils % Fluid Lymphocytes % Fluid Eosinophils % Fluid [place] % Fluid Comment Pericard Color Pericard Appearance Pericard WBC Pericard RBC Pericardial Albumin Pending Nasal Screen MRSA (PCR) Stool Occult Bld Scrn Hep Bs Antigen Hep Bs Ag Confirmation Hep Bs Antibody, Quant Hep B Core IgM Ab 08/17/21 08/18/21 08/18/21 Unknown 03:20 04:56 WBC 11.88 H RBC 2.67 L Hgb 8.1 L Hct 24.3 L MCV 91.0 MCH 30.3 MCHC 33.3 RDW Std Deviation 46.2 RDW Coeff of Irasema 13.8 Plt Count 244 MPV 10.5 H Sodium Potassium Chloride Carbon Dioxide Anion Gap BUN Creatinine Est Cr Clr Drug Dosing Est GFR ( Amer) Est GFR (Non-Af Amer) BUN/Creatinine Ratio Glucose POC Glucose Calcium Phosphorus Magnesium Iron TIBC Unsaturated IBC Transferrin % Sat Ferritin Albumin Cortisol AM Sample Ur Random Sodium 15 Fluid Neutrophils % 76 Fluid Lymphocytes % 18 Fluid Eosinophils % 0 Fluid [place] % 6 Fluid Comment Pericard Color RED Pericard Appearance BLOODY Pericard WBC 4850 Pericard RBC [id number] Pericardial Albumin Nasal Screen MRSA (PCR) Stool Occult Bld Scrn Hep Bs Antigen Hep Bs Ag Confirmation Hep Bs Antibody, Quant Hep B Core IgM Ab 08/18/21 08/18/21 08/18/21 04:56 04:56 07:28 WBC RBC Hgb Hct MCV MCH MCHC RDW Std Deviation RDW Coeff of Irasema Plt Count MPV Sodium 127 L Potassium 5.5 H Chloride 100 Carbon Dioxide 14 L Anion Gap 13 H BUN 136 H Creatinine 4.40 H D Est Cr Clr Drug Dosing 8.5 Est GFR ( Amer) 10.1 Est GFR (Non-Af Amer) 8.7 BUN/Creatinine Ratio 30.9 H Glucose 134 H POC Glucose 166 H Calcium 7.5 L Phosphorus 7.2 H Magnesium Iron TIBC Unsaturated IBC Transferrin % Sat Ferritin Albumin 2.9 L Cortisol AM Sample Ur Random Sodium Fluid Neutrophils % Fluid Lymphocytes % Fluid Eosinophils % Fluid [place]/Mac[place] % Fluid Comment Pericard Color Pericard Appearance Pericard WBC Pericard RBC Pericardial Albumin Nasal Screen MRSA (PCR) Stool Occult Bld Scrn Hep Bs Antigen Pending Hep Bs Ag Confirmation Pending Hep Bs Antibody, Quant Pending Hep B Core IgM Ab Pending 08/18/21 08:11 WBC RBC Hgb Hct MCV MCH MCHC RDW Std Deviation RDW Coeff of Irasema Plt Count MPV Sodium Potassium Chloride Carbon Dioxide Anion Gap BUN Creatinine Est Cr Clr Drug Dosing Est GFR ( Amer) Est GFR (Non-Af Amer) BUN/Creatinine Ratio Glucose POC Glucose Calcium Phosphorus Magnesium Iron TIBC Unsaturated IBC Transferrin % Sat Ferritin Albumin Cortisol AM Sample Ur Random Sodium Fluid Neutrophils % Fluid Lymphocytes % Fluid Eosinophils % Fluid [place] % Fluid Comment Pericard Color Pericard Appearance Pericard WBC Pericard RBC Pericardial Albumin Nasal Screen MRSA (PCR) Stool Occult Bld Scrn Negative Hep Bs Antigen Hep Bs Ag Confirmation Hep Bs Antibody, Quant Hep B Core IgM Ab PG Care Time/CCT Total # of Minutes Spent Total Time Spent with Patient: Total time spent is greater than 50% in coordination of care (as documented) at patient's floor/unit and/or counseling patient: Coding Level of Care Code 48288 Subseq Hosp Care Lvl 3 Diagnoses Acute kidney injury superimposed on chronic kidney disease N17.9; N18.9 Hyperkalemia E87.5 Acute hyponatremia E87.1 Metabolic acidosis E87.2 Anemia D64.9
[2021-08-18] MEDS: SERTRALINE HCL 50 MG TABLET PO SCH (08:55)
[2021-08-18] MEDS: BETHANECHOL CHL 25 MG TAB PO SCH ×2 (08:55→20:10)
[2021-08-18] MEDS: CALCIUM 600MG + VIT D 400 IU TAB PO SCH (08:55)
[2021-08-18] MEDS: DOCUSATE SODIUM 100 MG CAP PO SCH (08:55)
[2021-08-18] MEDS: DOXAZosin MESYLATE 4 MG TAB PO SCH (08:55)
[2021-08-18] MEDS: INSULIN ASPART PER UNIT SC SCH ×4 (08:56→20:14)
[2021-08-18] MEDS: HEPARIN SOD 5,000 UNIT/0.5 ML VIAL SQ SCH ×2 (08:57→20:10)
[2021-08-18] MEDS: PANTOprazole 40 MG TAB PO SCH ×2 (08:57→20:10)
--- NOTE | 2021-08-18 08:59 | Communication Note ---
Date of Service: August 18, 2021 Using sterile technique, 5cc serosanguinous fluid removed from pericardial drain
[2021-08-18] MEDS ORDERED: SODIUM BICARBONATE 8.4% 150 MEQ in WATER, STERILE 1,000 ML IV SCH ×2 (09:00→20:30)
[2021-08-18] MEDS: TAMSULOSIN HCL 0.4 MG CAP PO SCH (09:44)
[2021-08-18] MEDS: PATIROMER CALCIUM SORBITEX 8.4 GM PACK PO SCH (11:39)
--- NOTE | 2021-08-18 14:39 | Critical Care Consultation ---
Date of Consultation August 18, 2021 Assessment & Plan (1) Pericardial effusion: Reason Critically Ill: 81-year-old female with pericardial drain in place PLAN: Neuro: History CVA -antiplatelet medication management per cardiology given pericardial drain Resp: Exertional dyspnea -likely cardiovascular in origin CV: Aortic stenosis Mitral stenosis and incompetence Hypertension Coronary artery disease Fluids/Renal: Acute kidney injury superimposed on chronic kidney disease -management per nephrology ID: Gram-negative bacilli on urine straight cath specimen -cefuroxime 250 mg by mouth twice daily for 5 days GI/Nutrition: History of GI bleed -Protonix daily Heme: History of blood transfusion on prior admission DVT prophylaxis: Holding heparin per cardiology Endocrine: ICU hyperglycemia protocol Diabetes mellitus type 2 Vascular access: Peripheral IV Code Status: DNR in event of cardiac arrest Disposition: ICU while pericardial drain (2) Hyperkalemia: History of Present Illness Reason for Consultation: Pericardial effusion Requesting Physician: Lux Aranda MD Attending Physician: Lux Aranda MD History of Present Illness Patient is an 81-year-old female who underwent pericardial drain placement with cardiology on 08/17. Allergies Allergy/AdvReac Type Severity Reaction Status Date / Time sulfamethoxazole AdvReac Unknown Verified 08/14/21 19:49 [From Bactrim] trimethoprim [From Bactrim] AdvReac Unknown Verified 08/14/21 19:49 Home Medications Medication Instructions Recorded Confirmed Type calcium carbonate 600 mg-vitamin 1 cap PO QAM 05/29/18 08/14/21 History D3 5 mcg (200 unit) capsule (Calcium 600 + D(3)) cholecalciferol (vitamin D3) 25 1,000 unit PO QAM 05/29/18 08/14/21 History mcg (1,000 unit) capsule (Vitamin D3) cranberry fruit concentrate 250 mg 500 mg PO QAM 05/29/18 08/14/21 History chewable tablet (Azo Cranberry) omega-3s 300 pq-smq-gbs-other 1 cap PO QAM 05/29/18 08/14/21 History [id number] oil 1,000 mg capsule ([place]-3 Fish Oil) vitamin E 1,000 unit capsule 1,000 unit PO QAM 05/29/18 08/14/21 History blood sugar diagnostic (Blood #100 ea 10/12/20 08/03/21 Rx Glucose Test) acetaminophen 500 mg tablet 500 mg PO Q6H PRN 11/12/20 08/14/21 History (Tylenol Extra Strength) ascorbic acid (vitamin C) 500 mg 1,000 mg PO QAM 11/12/20 08/14/21 History tablet (Vitamin C) cyanocobalamin (vitamin B-12) 1,000 mcg PO QAM 11/12/20 08/14/21 History 1,000 mcg tablet (Vitamin B-12) docusate sodium 100 mg capsule 100 mg PO QAM PRN 11/12/20 08/14/21 History (Colace) nitrofurantoin 100 cap PO QAM 11/12/20 08/14/21 History monohydrate/macrocrystals 100 mg capsule (Macrobid) tamsulosin 0.4 mg capsule (Flomax) 0.4 mg PO QAM 11/12/20 08/14/21 History magnesium oxide 500 mg PO QAM tab 11/22/20 08/14/21 History furosemide 40 mg tablet (Lasix) 40 mg PO BID #180 tab 03/28/21 08/14/21 Rx levothyroxine 112 mcg tablet 112 mcg PO DAILYBB #90 tab 03/31/21 08/14/21 Rx (Synthroid) bethanechol chloride 50 mg tablet 50 mg PO BID #180 tab 04/19/21 08/14/21 Rx ferrous sulfate 325 mg (65 mg 325 mg PO BID #60 tab 04/21/21 08/14/21 Rx iron) tablet atorvastatin 10 mg tablet (Lipitor) 10 mg PO HS #90 tab 04/25/21 08/14/21 Rx linagliptin 5 mg tablet (Tradjenta) 5 mg PO QAM #90 tab 05/23/21 08/14/21 Rx ropinirole 0.5 mg tablet See Rx Instructions PO .COMPLEX 05/23/21 08/14/21 Rx #360 tab triamcinolone acetonide 0.5 % 1 applic TOPICAL BID PRN #60 g 06/24/21 08/14/21 Rx topical cream amlodipine 10 mg tablet (Norvasc) 10 mg PO QAM #90 tab 07/08/21 08/14/21 Rx doxazosin 4 mg tablet 4 mg PO DAILY 07/13/21 08/14/21 History tramadol 50 mg tablet (Ultram) 50 mg PO BID PRN #60 tab 07/14/21 08/14/21 Rx pantoprazole 40 mg tablet,delayed 40 mg PO BID #60 tab 08/05/21 08/14/21 Rx release (Protonix) methocarbamol 500 mg tablet 500 mg PO TID PRN #90 tab 08/11/21 08/14/21 Rx sertraline 25 mg tablet 25 mg PO UD 08/14/21 08/14/21 History Patient History Medical History Anemia of chronic disease Anxiety Aortic stenosis CAD (coronary artery disease) Chronic back pain Chronic diastolic heart failure Chronic hyponatremia Chronic kidney disease, stage 3a Diabetes mellitus, type 2 Diabetic retinopathy Essential tremor MINOR IN HAND Fatty liver First degree AV block GERD without esophagitis Hearing deficit Hiatal hernia History of CVA (cerebrovascular accident) (2019) L lacunar infarct Hyperlipidemia Hypertension Hypothyroidism 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 On anticoagulant therapy Osteoarthritis RBBB Recurrent UTI Resistant hypertension Restless legs Stage 3b chronic kidney disease Urinary urgency Venous insufficiency Weakness Surgical History H/O varicose vein ligation History of back surgery (04/2010) X 2 History of bladder suspension procedure X 2 History of colonoscopy History of esophagogastroduodenoscopy (EGD) History of tooth extraction S/P carpal tunnel release RT/LEFT S/P hysterectomy ANDRIA S/P knee replacement RT/LEFT S/P trigger finger release Family History Father Alcohol abuse Heart disease Myocardial infarction Hypertension Sister Pancreatic cancer Diabetes Breast cancer Brother Diabetes Alcohol abuse Stroke Other Cancer No family history of adverse response to anesthesia Denies family history of Ovarian cancer Prostate cancer Colorectal cancer Social History Smoking Status: Never smoker Second Hand Exposure: No; Hx Alcohol Use: No Hx Substance Use: No Preferred Language: Khmer Communication Ability: Effective Visual Impairment: No Limitations Hearing Ability: Normal Bank Analyst Required: No Beliefs That Will Affect Care: None marital status: Single Current Living Situation: Alone current occupational status: retired How many Children do You have: 2 Feels Safe at Home: Yes Childhood Exposure to Second-Hand Smoke: No caffeine: Yes (Coffee x 2 cups per day.) during the past year weight has: remained stable Dental Care, Regularly: No Physical Activity Frequency: Does not Exercise Seatbelt Use: always Sunscreen Use: Yes Assistive Devices: Cane and Walker Review of Systems Review of Systems: Complaints of generalized fatigue during my evaluation. No chest pain or shortness of breath, decreased urine output lately, no acute finding with urination no fevers or chills Physical Exam Physical Exam: General: Alert. nontoxic. Skin: Warm, dry, Head: Atraumatic Ears, nose, mouth and throat: airway patent Cardiovascular: Normal peripheral perfusion Chest: Pericardial drain in place no shadowing on the dressing Respiratory: no respiratory distress Gastrointestinal: Non distended Musculoskeletal: No deformity Results & Data Results & Data ([facility]) Vital Signs (Past 12 Hours) Vital Signs Temp Pulse Pulse Resp BP BP Pulse Ox 08/18/21 13:35 36.8 C 63 22 134/41 L 95 08/18/21 12:00 63 30 H 132/38 L 95 08/18/21 11:00 63 21 117/51 L 08/18/21 10:42 61 15 130/42 L 95 08/18/21 10:00 63 20 130/42 L 90 08/18/21 09:49 63 22 116/55 L 95 08/18/21 09:00 63 22 116/55 L 08/18/21 08:26 62 21 130/46 L 96 08/18/21 08:17 63 22 130/46 L 96 08/18/21 08:00 61 28 H 93 08/18/21 07:00 62 20 96 08/18/21 06:45 62 22 95 08/18/21 03:53 36.7 C 61 21 129/43 L 96 Critical Care Results & Data Vital Signs (Past 12 Hours) Vital Signs Temp Pulse Pulse Resp BP BP Pulse Ox 08/18/21 14:43 63 21 140/44 L 94 08/18/21 13:35 36.8 C 63 22 134/41 L 95 08/18/21 12:00 63 30 H 132/38 L 95 08/18/21 11:00 63 21 117/51 L 08/18/21 10:42 61 15 130/42 L 95 08/18/21 10:00 63 20 130/42 L 90 08/18/21 09:49 63 22 116/55 L 95 08/18/21 09:00 63 22 116/55 L 08/18/21 08:26 62 21 130/46 L 96 08/18/21 08:17 63 22 130/46 L 96 08/18/21 08:00 61 28 H 93 08/18/21 07:00 62 20 96 08/18/21 06:45 62 22 95 08/18/21 03:53 36.7 C 61 21 129/43 L 96 Lab & Micro Results (Past 24 Hours) RBC 2.67 M/uL (4.2-5.4) L 08/18/21 WBC 11.88 K/uL (4.8-10.8) H 08/18/21 Hgb 8.1 g/dL (12.0-16.0) L 08/18/21 Hct 24.3 % (37-47) L 08/18/21 MCV 91.0 fL (80-100) 08/18/21 MCH 30.3 pg (25-34) 08/18/21 MCHC 33.3 g/dL (32-36) 08/18/21 RDW Standard Deviation 46.2 fL (36.4-46.3) 08/18/21 RDW Coefficient of Variation 13.8 % (11.5-14.5) 08/18/21 Plt Count 244 K/uL (130-400) 08/18/21 MPV 10.5 fL (7.4-10.4) H 08/18/21 Na 127 mmol/L (136-145) L 08/18/21 K 5.5 mmol/L (3.5-5.1) H 08/18/21 Cl 100 mmol/L (98-107) 08/18/21 CO2 14 mmol/L (21-32) L 08/18/21 Anion Gap 13 (3-11) H 08/18/21 BUN 136 mg/dl (6-23) H 08/18/21 Creatinine 4.40 mg/dl (0.6-1.2) H 08/18/21 Estimated GFR ( Amer) 10.1 ml/min 08/18/21 Estimated GFR (Non-Af Amer) 8.7 ml/min 08/18/21 BUN/Creatinine Ratio 30.9 (10-20) H 08/18/21 Glu 134 mg/dl (70-99(Fasting)) H 08/18/21 Ca 7.5 mg/dl (8.5-10.1) L 08/18/21 Phosphorus Level 7.2 mg/dl (2.5-4.9) H 08/18/21 Albumin 2.9 gm/dl (3.4-5.0) L 08/18/21 Calcium Level 7.5 mg/dl (8.5-10.1) L 08/18/21 04:56 08/18/21 Microbiology 08/17/21 Unknown Gram Stain - Final Pericardial Fluid Aerobic and Anaerobic Culture - Preliminary No growth to date. 08/16/21 13:30 Urine Culture - Final Urine,Straight Cath Gram negative bacilli I & O Totals 24 Hours 08/17/21 08/18/21 08/19/21 06:59 06:59 06:59 Intake Total 1200 / 1200 310 / 310 110 / 110 Output Total 310 / 310 320 / 320 Balance 890 / 890 -10 / -10 110 / 110 Cumulative 08/14/21 15:45 thru 08/18/21 09:45 Intake Total 2380 Output Total 1056 Balance 1324 RT Ventilator Mngmt (Last Documented) Ventilator Ordered Settings Respiratory Rate 21 08/18/21 14:43 Ventilator - PT Measurements Respiratory Rate 21 Coding Level of Care Code 69208 Inpt Consult Level 4 Diagnoses Pericardial effusion I31.3 Hyperkalemia E87.5
[2021-08-18] MEDS: rOPINIRole HCL 0.25 MG TABLET PO SCH ×2 (15:11→20:10)
[2021-08-18 15:58] LABS: Calcium 7.2 mg/dl (8.5-10.1); Creatinine Clr Calc Pharmacy 9.9 ml/min; Est GFR (Non-African American) 8.6 ml/min; Potassium 5.2 mmol/L (3.5-5.1)
--- NOTE | 2021-08-18 16:21 | XCELERA ---
[id number]
--- NOTE | 2021-08-18 16:53 | Hospitalist Progress Note ---
Date of Service August 18, 2021 Assessment & Plan (1) Acute kidney injury superimposed on chronic kidney disease: Plan: Baseline 1.21.4. With CKD 3. - Renal u/s on 08/16 without hydronephrosis. - Treating possible UTI. - Johnson inserted on 08/16 for urinary retention >350 mL. - Monitor BMP -> Cr up today to 4.4. BUN > 100. - Nephrology consulted -> Appreciate assistance. No indication for HD presently, but may need it within 1-2 days if no improvement. (2) (HFpEF) heart failure with preserved ejection fraction: Plan: Per prior notes, appeared slightly hypervolemic on admission, with ongoing s hortness of breath, orthopnea. Vascular congestion noted on CXR. - Held home Lasix, opted for 80 mg IV Lasix twice daily on admission. - Dry weight reported 159 pounds. - I&O's, daily weights. - Cardiology consulted - RHC on 08/15 showed following: * RA 15 * PA 46/19 * PCW 19 * RV 41/10 * CI 2.62 (normal 2.5 - 4.0) -> Initially thought this indicated continued volume overload as PCWP was roughly 2x what it should be. She was given Lasix 60 mg IV once after her RHC in discussion with cardiology. On 08/16, Cr was up significantly. Lasix held. Pericardiocentesis on 08/17 with ~350 mL bloody drainage. Sent for culture, cell count, cytology. Ddx for bloody pericardial fluid is generally iatrogenic (from cath procedure; this is unlikely), malignancy (26%), complications of arthrosclerotic disease (11%), and idiopathic (10%). (PMID:[id number]) - Discussed with cardiology on 08/18; unclear why cardiac output and renal perfusion is so low. At this point, giving gentle IV fluids to correct acid/base status. (3) Hyponatremia: Plan: Na was 126. May be contributing to general weakness. - Continue to follow on BMP - Urine osms were 315 on 08/16 (4) Aortic stenosis: Plan: Follows with cardiology, has been consulted while she is here. - Watch volume status. (5) Mitral stenosis and incompetence: Plan: Follows with cardiology, has been consulted while she is here. - Watch volume status. (6) Diabetes mellitus type 2 with complications: Plan: Per recent A1c's, is well controlled. They have been from 4.7%6.6% over the t 2 years. - Hold oral agents, cover with SSI w/out carb coverage. - BSs have been 130 - 170. (7) CAD (coronary artery disease): Plan: Chronic, stable. - Continue statin, antihypertensives, Plavix. - Troponin very minimally elevated lower than troponin from prior ED visit. Likely mildly elevated in setting of MICHAEL/CKD. - On telemetry. - Cardiology following. (8) History of CVA (cerebrovascular accident): Plan: Had Plavix held on last admission due to GI bleed. - Continue to hold Plavix. (9) Hypertension: Plan: BP stable today at 140/45. - Continue amlodipine - Hold losartan for now due to MICHAEL. (10) Hypothyroidism: Plan: - Continue levothyroxine. (11) Restless legs: Plan: - Continue ropinirole. (12) History of GI bleed: Plan: - Hospitalized earlier this month requiring 2 units of transfusion. EGD deferred at that time due to elevated troponin. Was thought it may be due to AVMs, she has increased risk for this due to her aortic stenosis. - Continue Protonix twice daily. - Hgb appears stable, continue to trend on a.m. labs. Plan: - SCDs for DVT PPx. Admission and Anticipated Discharge Date Admission Date: August 14, 2021 Subjective Feeling more tired today. No direct symptoms, just feels more exhausted and tired. Reports no fevers/chills, chest pain, abdominal pain, nausea, or vomiting. Physical Exam Constitutional: WD/WN, vitals as above + acute distress Eyes: EOM intact bilaterally; no conjunctival abnormality ENMT: external ear and nose normal, oropharynx normal Neck: trachea midline, no thyromegaly normal visual inspection Respiratory: normal respiratory effort, lungs clear to auscultation no respiratory distress Cardiovascular: RRR, no murmur, no edema Gastrointestinal (Abdomen): Inspection/Auscultation: abdomen normal to inspection; abdomen not distended Musculoskeletal: no cyanosis or clubbing, extremities motor strength 5/5 Skin: no rashes, warm and dry Neurologic: moves all extremities and awake Psychiatric: Orientation: alert, oriented to person and cooperative Results & Data Results & Data ([facility]) Vital Signs (Past 12 Hours) Vital Signs Temp Pulse Pulse Resp BP BP Pulse Ox 08/18/21 14:43 63 21 140/44 L 94 08/18/21 13:35 36.8 C 63 22 134/41 L 95 08/18/21 12:00 63 30 H 132/38 L 95 08/18/21 11:00 63 21 117/51 L 08/18/21 10:42 61 15 130/42 L 95 08/18/21 10:00 63 20 130/42 L 90 08/18/21 09:49 63 22 116/55 L 95 08/18/21 09:00 63 22 116/55 L 08/18/21 08:26 62 21 130/46 L 96 08/18/21 08:17 63 22 130/46 L 96 08/18/21 08:00 61 28 H 93 08/18/21 07:00 62 20 96 08/18/21 06:45 62 22 95 PG Care Time/CCT Total # of Minutes Spent Total Time Spent with Patient: Total time spent is greater than 50% in coordination of care (as documented) at patient's floor/unit and/or counseling patient: Coding Level of Care Code 50005 Subseq Hosp Care Lvl 3 Diagnoses (HFpEF) heart failure with preserved ejection fraction I50.30 Acute kidney injury superimposed on chronic kidney disease N17.9; N18.9 Hyponatremia E87.1 Aortic stenosis I35.0 Mitral stenosis and incompetence I05.2 Diabetes mellitus type 2 with complications E11.8 CAD (coronary artery disease) I25.10 History of CVA (cerebrovascular accident) Z86.73 Hypertension I10 Hypothyroidism E03.9 Restless legs G25.81 History of GI bleed Z87.19
--- NOTE | 2021-08-18 18:50 | Cardiology Progress Note ---
Date of Service August 18, 2021 Assessment & Plan (1) MCKEON (dyspnea on exertion): (2) Atrial fibrillation, new onset: (3) CAD (coronary artery disease): (4) Aortic stenosis: (5) Mitral stenosis and incompetence: (6) Elevated troponin: (7) Pericardial effusion: Plan: 1. Dyspnea on exertion: This is all related pulmonary vascular congestion. Certainly an element of metabolic acidosis and possibly compensatory dyspnea. In any event, her ability to affect diuresis has been compromised by her renal dysfunction. 2. Valvular heart disease: Degree of mitral stenosis and aortic stenosis appear unchanged from December of 2020. Unlikely to be playing a role in her current symptoms 3. Atrial fibrillation: No Sense of palpitations. 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 Witholding anticoagulation in the immediate term to facilitate procedure. Hx of recent GI hemorrhage 4. Pericardial effusion: Likely inflammatory. Not infectious. This appears to have been successfully evacuated. Echocardiogram today on demonstrated trace effusion in some views. There was no significant additional drainage from the pericardial drain and this was removed. Do not believe there is a good way to affect better cardiac output. She has preserved LV systolic function. If there is any form of heart failure it is likely diastolic. However, blood pressure is good in her heart rate is also well controlled. I do not think inotropes will have any impact. She was being administered some volume today which has the potential to improve renal function. Admission and Anticipated Discharge Date Admission Date: August 14, 2021 Subjective This afternoon the patient claims to be feeling tired. She has not report pain in any location. She states she continues to have breathing difficulty with any significant activity. Review of Systems Review of Systems: Per HPI Physical Exam Physical Exam: She is alert and oriented x3. Mood affect appear normal. She answered all questions appropriately. HEENT: Sclerae are anicteric. Pupils are equal and reactive to light and accommodation. Extraocular movements were intact. Neuro: Cranial nerves intact Lungs: Some increased respiratory effort. Mild expiratory wheezing. Cardiac: The rhythm was irregular. S1 and S2 were normal. Harsh crescendo systolic murmur. The PMI was not markedly displaced on palpation. Chest: Pericardial drain in place. Extremities: Patient has bilateral radial pulses that are equal in intensity. There is no evidence cyanosis or clubbing. No significant edema Skin: There are no rashes noted on examination today. Results & Data ([facility]) Vital Signs (Past 12 Hours) Vital Signs Temp Pulse Pulse Resp BP BP Pulse Ox 08/18/21 14:43 63 21 140/44 L 94 08/18/21 13:35 36.8 C 63 22 134/41 L 95 08/18/21 12:00 63 30 H 132/38 L 95 08/18/21 11:00 63 21 117/51 L 08/18/21 10:42 61 15 130/42 L 95 08/18/21 10:00 63 20 130/42 L 90 08/18/21 09:49 63 22 116/55 L 95 08/18/21 09:00 63 22 116/55 L 08/18/21 08:26 62 21 130/46 L 96 08/18/21 08:17 63 22 130/46 L 96 08/18/21 08:00 61 28 H 93 08/18/21 07:00 62 20 96 Laboratory Results Abnormal Lab Results 08/17/21 08/18/21 08/18/21 19:31 03:20 04:56 WBC 11.88 H RBC 2.67 L Hgb 8.1 L Hct 24.3 L MCV 91.0 MCH 30.3 MCHC 33.3 RDW Std Deviation 46.2 RDW Coeff of Irasema 13.8 Plt Count 244 MPV 10.5 H Sodium Potassium Chloride Carbon Dioxide Anion Gap BUN Creatinine Est Cr Clr Drug Dosing Est GFR ( Amer) Est GFR (Non-Af Amer) BUN/Creatinine Ratio Glucose POC Glucose 221 H Calcium Phosphorus Albumin Ur Random Sodium 15 Stool Occult Bld Scrn 08/18/21 08/18/21 08/18/21 04:56 07:28 08:11 WBC RBC Hgb Hct MCV MCH MCHC RDW Std Deviation RDW Coeff of Irasema Plt Count MPV Sodium 127 L Potassium 5.5 H Chloride 100 Carbon Dioxide 14 L Anion Gap 13 H BUN 136 H Creatinine 4.40 H D Est Cr Clr Drug Dosing 8.5 Est GFR ( Amer) 10.1 Est GFR (Non-Af Amer) 8.7 BUN/Creatinine Ratio 30.9 H Glucose 134 H POC Glucose 166 H Calcium 7.5 L Phosphorus 7.2 H Albumin 2.9 L Ur Random Sodium Stool Occult Bld Scrn Negative 08/18/21 08/18/21 08/18/21 11:30 14:59 16:27 WBC RBC Hgb Hct MCV MCH MCHC RDW Std Deviation RDW Coeff of Irasema Plt Count MPV Sodium 126 L Potassium 5.2 H Chloride 97 L Carbon Dioxide 16 L Anion Gap 13 H BUN 137 H Creatinine 4.42 H Est Cr Clr Drug Dosing 9.9 Est GFR ( Amer) 10.0 Est GFR (Non-Af Amer) 8.6 BUN/Creatinine Ratio 31.0 H Glucose 129 H POC Glucose 140 H 167 H Calcium 7.2 L Phosphorus Albumin Ur Random Sodium Stool Occult Bld Scrn PG Care Time/CCT Total # of Minutes Spent Total Time Spent with Patient: Total time spent is greater than 50% in coordination of care (as documented) at patient's floor/unit and/or counseling patient: Coding Level of Care Code 80373 Subseq Hosp Care Lvl 3 Diagnoses MCKEON (dyspnea on exertion) R06.00 Atrial fibrillation, new onset I48.91 CAD (coronary artery disease) I25.10 Aortic stenosis I35.0 Mitral stenosis and incompetence I05.2 Elevated troponin R77.8 Pericardial effusion I31.3
--- NOTE | 2021-08-18 18:51 | Communication Note ---
Date of Service: August 18, 2021 Using sterile technique an additional attempt at removing any remaining pericardial fluid was made. The catheter was flushed easily with few cc of sterile saline. There is only a few cc of serous fluid removed through the drain. The suturing bandage were then removed and the drain was also removed. A gauze dressing was then placed over the small incision.
[2021-08-18] MEDS: cefUROXime axetil 250 MG TABLET PO SCH (20:10)
[2021-08-18] MEDS: ATORVASTATIN 10 MG TAB PO SCH (20:10)
[2021-08-18] MEDS: rOPINIRole HCL 1 MG TABLET PO SCH (20:12)
[2021-08-19 06:20] LABS: Hematocrit (blood only) 23.8 % (37-47); Mean Corpuscular Hgb Conc 33.6 g/dL (32-36); Mean Corpuscular Volume 89.1 fL (80-100); Mean Platelet Volume 10.2 fL (7.4-10.4); Platelet Count 224 K/uL (130-400); RDW Coefficient of Variation 13.8 % (11.5-14.5); RDW Standard Deviation 45.4 fL (36.4-46.3); Red Blood Count 2.67 M/uL (4.2-5.4)
[2021-08-19] MEDS: LEVOTHYROXINE SODIUM 112 MCG TABLET PO SCH (06:59)
[2021-08-19 07:01] LABS: HBSAG NON-REACTIVE (NON-REACTIVE); Hepatitis B Core Antibody IgM NON-REACTIVE (NON-REACTIVE); Hepatitis B Surface Ab, Quant 9 mIU/mL (> OR = 10)
[2021-08-19 07:13] LABS: BUN Creatinine Ratio 30.9 (10-20); Creatinine Clr Calc Pharmacy 9.8 ml/min; Est GFR (African American) 9.9 ml/min; Est GFR (Non-African American) 8.5 ml/min; Magnesium 2.3 mg/dl (1.7-2.4); Potassium 4.9 mmol/L (3.5-5.1)
--- NOTE | 2021-08-19 07:45 | Hospitalist Progress Note ---
Date of Service August 19, 2021 Assessment & Plan (1) Acute kidney injury superimposed on chronic kidney disease: Plan: Baseline 1.21.4. With CKD 3. Cr remains significantly elevated - Renal u/s on 08/16 without obstruction - Treating possible UTI. - Johnson inserted on 08/16 for urinary retention >350 mL. - Nephrology consulted -> Appreciate assistance. No indication for HD presently, postponement of placing dialysis catheter if need be ICU completed emergently over the weekend (2) (HFpEF) heart failure with preserved ejection fraction: Plan: Per prior notes, appeared slightly hypervolemic on admission, with ongoing shortness of breath, orthopnea. Vascular congestion noted on CXR. - Home Lasix, transitioned to 80 mg IV Lasix twice daily on admission. - Dry weight reported 159 pounds. - RHC on 08/15 showed following:increased pulmonary capillary wedge pressure cardiology recommended increased diuresis On 08/16, Cr was up significantly. Lasix held. Suggested pericardial effusion, Pericardiocentesis on 08/17 with ~350 mL bloody drainage. Sent for culture, cell count, cytology. Ddx for bloody pericardial fluid is generally iatrogenic (from cath procedure; this is unlikely), malignancy (26%), complications of arthrosclerotic disease (11%), and idiopathic (10%). ([id number]) - Discussed with cardiology on 08/18; unclear why cardiac output and renal perfusion is so low. At this point, lasix held, (3) Hyponatremia: Plan: Continues possibly confounded by volume administration on 08/17 continue to restrict free water nephrology following (4) Aortic stenosis: Plan: moderate to severe also concerns with mitral valve disease stenosis (5) Diabetes mellitus type 2 with complications: Plan: Outpatient hemoglobin A1c's have been low 4.7%6.6% over the last 2 years. - Hold oral agents, cover with SSI w/out carb coverage. - BSs have been 130 - 170. (6) CAD (coronary artery disease): Plan: Chronic, stable. - Continue statin, antihypertensives, Plavix. - Troponin very minimally elevated lower than troponin from prior ED visit. Likely mildly elevated in setting of MICHAEL/CKD. (7) History of CVA (cerebrovascular accident): Plan: Had Plavix held on last admission due to GI bleed.- Continue to hold Plavix. (8) Hypertension: Plan: BP stable today at 140/45. - Continue amlodipine - Hold losartan for now due to MICHAEL. (9) Hypothyroidism: Plan: - Continue levothyroxine. (10) Restless legs: Plan: - Continue ropinirole. (11) History of GI bleed: Plan: - Hospitalized earlier this month requiring 2 units of transfusion. EGD deferred at that time due to elevated troponin. Was thought it may be due to AVMs, she has increased risk for this due to her aortic stenosis. - Continue Protonix twice daily. - Hgb appears stable, continue to trend on a.m. labs. Plan: - SCDs for DVT PPx. Admission and Anticipated Discharge Date Admission Date: August 14, 2021 Subjective pt states she feels improved no subjective sob, but objectively is tachypneic, with conversation, no chest pain Review of Systems Review of Systems: Mild distress and fatigue no headache, no visual changes no speech or swallowing issues no chest pain, pressure or palpitations Conversational dyspnea no coughing or wheezing no abdominal pain, nausea or vomiting, diarrhea or constipation no dysuria, hematuria or frequency no focal joint pain or swelling no back pain, CVA tenderness or radicular pain no bruising, bleeding or rashes no focal signs of weakness or numbness or altered sensation no complaints of anxiety or depression.. Physical Exam Physical Exam: The patient appeared well nourished and normally developed. Vital signs as documented. Head exam is normocephalic atraumatic Neck is without JVD, thyromegaly, or carotid bruits. Lungs are clear to auscultation, menaced breath sounds at the bases Cardiac exam, Rhythm is regular.. No murmurs, no rubs or gallops. Abdominal exam reveals normal bowel sounds, soft non tender, no masses Extremities are nonedematous and both pedal pulses are present Neurologic exam is alert and oriented, no focal loss of strength or sensation Skin is without bruises or rashes Psychologically is without concerns for anxiety or depression.. Results & Data Results & Data ([facility]) Vital Signs (Past 12 Hours) Vital Signs Pulse Resp BP Pulse Ox 08/19/21 04:00 65 20 136/61 96 08/19/21 03:00 65 19 126/60 95 08/19/21 02:00 64 20 132/60 95 08/19/21 01:00 64 21 132/52 L 95 08/19/21 00:00 66 19 137/52 L 97 08/18/21 23:00 64 23 130/49 L 94 08/18/21 20:00 65 20 115/49 L 94 PG Care Time/CCT Total # of Minutes Spent Total Time Spent with Patient: Total time spent is greater than 50% in coordination of care (as documented) at patient's floor/unit and/or counseling patient: Coding Level of Care Code 13481 Subseq Hosp Care Lvl 3 Diagnoses Acute kidney injury superimposed on chronic kidney disease N17.9; N18.9 (HFpEF) heart failure with preserved ejection fraction I50.30 Hyponatremia E87.1 Aortic stenosis I35.0 Diabetes mellitus type 2 with complications E11.8 CAD (coronary artery disease) I25.10 History of CVA (cerebrovascular accident) Z86.73 Hypertension I10 Hypothyroidism E03.9 Restless legs G25.81 History of GI bleed Z87.19
[2021-08-19] MEDS: INSULIN ASPART PER UNIT SC SCH ×4 (08:49→20:42)
--- NOTE | 2021-08-19 09:11 | Nephrology Progress Note ---
Date of Service August 19, 2021 Assessment & Plan (1) Acute kidney injury superimposed on chronic kidney disease: Plan: Medically complicated: advanced kidney dysfunction with underlying renovascular disease and advanced cardiac dysfunction (severe , mitral stenosis, atrial fibrillation, diastolic dysfunction, pericardial effusion, and predominately right heart failure). Unfortunately, other than draining pericardial fluid, no other promising interventions for improving hemodynamic function moving forward. Kidney function is not likely to improve with renal angioplasty and attempt would likely lead to kidney failure. UOP 200 ml overnight. Positive fluid balance maintained with IV NaHCO3. Creatinine plateauing with improved intravascular volume and renal perfusion. Unfortunately, through somewhat preload dependent, I agree with Dr. Moura that Sully may ultimately require dialysis to effectively maintain volume status. However, I would not ultrafiltrate today and given stability in her kidney function and electrolytes, we opted to hold dialysis in favor of continued monitoring. I had discussed possible permcath placement with Dr. Arzola but canceled the procedure today. Sully recognizes that worsening kidney dysfunction or volume status over the weekend may result in need for a temporary catheter. IVF will be held today. Will continue PO NaHCO3 replacement. Medications are appropriately dosed for kidney dysfunction. Document strict I /O's. Repeat metabolic profile tomorrow AM. (2) Hyperkalemia: Plan: Improved with medical management. Low potassium diet. Repeat metabolic profile tomorrow AM. (3) Acute hyponatremia: Plan: This is chronic/stable hyponatremia. Free water restriction to <1.5 L daily. Document strict I/O's. Diuretics held. Encourage dietary protein. (4) Metabolic acidosis: Plan: IV HCO3 gtt will be stopped today and transitioned back to PO NaHCO3. (5) Anemia: Plan: With CKD and iron deficiency. Venofer 200 mg IV x 3rd dose today. Epogen 54557 units x 1 dose provided 08/17. (6) Pericardial effusion: Plan: Pending cytology. I would not exclude that this may not be uremic. Given absence of other signs of pericarditis or uremia, I have not emergently started dialysis. Admission and Anticipated Discharge Date Admission Date: August 14, 2021 Subjective No acute events overnight. Sully reports feeling better this AM. She denies any dyspnea at rest. She admits that she is tachypneic but states that she is always this way. She denies chest pain or palpitations. She denies lightheadedness or dizziness. She reports that her strength has improved and she has more of an appetite this AM. She is very anxious about the prospect of dialysis and has understandable reservations. Sully would like some more time to discuss dialysis with her family. However, she would ultimately proceed with dialysis and states that she is not ready to transition to hospice or palliative care. She would prefer the possibility of requiring 2 procedures (temporary cath followed by permcath) if needed over the weekend rather than moving forward with permcath now. She tolerated a positive fluid balance relatively well yesterday. Pericardial drain has been removed. She denies pain. No fevers or chills. Johnson remains in place. Review of Systems Review of Systems: All systems reviewed & are unremarkable except as noted in HPI & below Physical Exam Constitutional: + frail appearing; no acute distress Eyes: + anicteric sclerae; no corneal abnormality ENMT: Mouth: no oral mucosal abnormality and oral mucous membranes not dry Neck: normal visual inspection and trachea midline Respiratory: normal respiratory effort and + tachypneic Auscultation: lungs clear to auscultation bilaterally Cardiovascular: Rate/Rhythm: regular rate Heart Sounds: normal S1, normal S2 and + murmur Vessels: + JVD Extremities: + edema Musculoskeletal: Extremities: no cyanosis and no clubbing Skin: + turgor decreased; no lesions Neurologic: Motor/Sensory: no tremor and no asterixis Psychiatric: Orientation: alert and oriented x 3 Results & Data ([facility]) Vital Signs (Past 12 Hours) Vital Signs Pulse Resp BP Pulse Ox 08/19/21 04:00 65 20 136/61 96 08/19/21 03:00 65 19 126/60 95 08/19/21 02:00 64 20 132/60 95 08/19/21 01:00 64 21 132/52 L 95 08/19/21 00:00 66 19 137/52 L 97 08/18/21 23:00 64 23 130/49 L 94 Laboratory Results Laboratory Results - last 24 hr 08/18/21 08/18/21 08/18/21 04:56 11:30 14:59 WBC RBC Hgb Hct MCV MCH MCHC RDW Std Deviation RDW Coeff of Irasema Plt Count MPV Sodium 126 L Potassium 5.2 H Chloride 97 L Carbon Dioxide 16 L Anion Gap 13 H BUN 137 H Creatinine 4.42 H Est Cr Clr Drug Dosing 9.9 Est GFR ( Amer) 10.0 Est GFR (Non-Af Amer) 8.6 BUN/Creatinine Ratio 31.0 H Glucose 129 H POC Glucose 140 H Calcium 7.2 L Magnesium Hep Bs Antigen NON-REACTIVE Hep Bs Ag Confirmation TNP Hep Bs Antibody, Quant 9 L Hep B Core IgM Ab NON-REACTIVE 08/18/21 08/18/21 08/19/21 16:27 20:14 05:42 WBC 9.00 RBC 2.67 L Hgb 8.0 L Hct 23.8 L MCV 89.1 MCH 30.0 MCHC 33.6 RDW Std Deviation 45.4 RDW Coeff of Irasema 13.8 Plt Count 224 MPV 10.2 Sodium Potassium Chloride Carbon Dioxide Anion Gap BUN Creatinine Est Cr Clr Drug Dosing Est GFR ( Amer) Est GFR (Non-Af Amer) BUN/Creatinine Ratio Glucose POC Glucose 167 H 143 H Calcium Magnesium Hep Bs Antigen Hep Bs Ag Confirmation Hep Bs Antibody, Quant Hep B Core IgM Ab 08/19/21 05:42 WBC RBC Hgb Hct MCV MCH MCHC RDW Std Deviation RDW Coeff of Irasema Plt Count MPV Sodium 127 L Potassium 4.9 Chloride 95 L Carbon Dioxide 19 L Anion Gap 13 H BUN 138 H Creatinine 4.46 H Est Cr Clr Drug Dosing 9.8 Est GFR ( Amer) 9.9 Est GFR (Non-Af Amer) 8.5 BUN/Creatinine Ratio 30.9 H Glucose 117 H POC Glucose Calcium 7.0 L Magnesium 2.3 Hep Bs Antigen Hep Bs Ag Confirmation Hep Bs Antibody, Quant Hep B Core IgM Ab PG Care Time/CCT Total # of Minutes Spent Total Time Spent with Patient: Total time spent is greater than 50% in coordination of care (as documented) at patient's floor/unit and/or counseling patient: Coding Level of Care Code 23633 Subseq Hosp Care Lvl 3 Diagnoses Acute kidney injury superimposed on chronic kidney disease N17.9; N18.9 Hyperkalemia E87.5 Acute hyponatremia E87.1 Metabolic acidosis E87.2 Anemia D64.9 Pericardial effusion I31.3
[2021-08-19] MEDS: DOXAZosin MESYLATE 4 MG TAB PO SCH (09:38)
[2021-08-19] MEDS: TAMSULOSIN HCL 0.4 MG CAP PO SCH (09:38)
[2021-08-19] MEDS: SERTRALINE HCL 50 MG TABLET PO SCH (09:38)
[2021-08-19] MEDS: DOCUSATE SODIUM 100 MG CAP PO SCH (09:40)
[2021-08-19] MEDS: CALCIUM 600MG + VIT D 400 IU TAB PO SCH (09:40)
[2021-08-19] MEDS: BETHANECHOL CHL 25 MG TAB PO SCH ×2 (09:41→21:19)
[2021-08-19] MEDS: PANTOprazole 40 MG TAB PO SCH ×2 (09:42→21:20)
[2021-08-19] MEDS: HEPARIN SOD 5,000 UNIT/0.5 ML VIAL SQ SCH ×2 (09:42→22:17)
[2021-08-19] MEDS: PATIROMER CALCIUM SORBITEX 8.4 GM PACK PO SCH (11:41)
[2021-08-19] MEDS: IRON SUCROSE 200 MG in 0.9 % SODIUM CHLORIDE 100 ML IV SCH (12:13)
--- NOTE | 2021-08-19 14:26 | Cardiology Progress Note ---
Date of Service August 19, 2021 Assessment & Plan (1) MCKEON (dyspnea on exertion): (2) Atrial fibrillation, new onset: (3) CAD (coronary artery disease): (4) Aortic stenosis: (5) Mitral stenosis and incompetence: (6) Elevated troponin: (7) Pericardial effusion: Plan: 1. Dyspnea on exertion: Lung examination is relatively benign. Possibly an element of vascular congestion based on her initial invasive evaluation. Possibly compensatory due to metabolic acidosis. Administered fluids yesterday without any significant decline in pulmonary symptoms. 2. Valvular heart disease: Degree of mitral stenosis and aortic stenosis appear unchanged from December of 2020. Unlikely to be playing a role in her current symptoms 3. Atrial fibrillation: No Sense of palpitations. 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 Witholding anticoagulation in the immediate term to facilitate procedure. Hx of recent GI hemorrhage 4. Pericardial effusion: Unclear etiology. No significant drainage yesterday and the drain was removed last evening. At this point where simply monitoring her renal function. I think cardiac function is optimized given the current difficulties with diuresis. Admission and Anticipated Discharge Date Admission Date: August 14, 2021 Subjective This morning patient's primary complaint was fatigue. He continues to feel quite tired. She is also very weak. She did not report overt breathing difficulty. No pain. Review of Systems Review of Systems: Per HPI Physical Exam Physical Exam: She is alert and oriented x3. Mood affect appear normal. She answered all questions appropriately. HEENT: Sclerae are anicteric. Pupils are equal and reactive to light and accommodation. Extraocular movements were intact. Neuro: Cranial nerves intact Lungs: Some increased respiratory effort. No wheezing. Occasional crackle at the bases. Cardiac: The rhythm was irregular. S1 and S2 were normal. Harsh crescendo systolic murmur. The PMI was not markedly displaced on palpation. Extremities: Patient has bilateral radial pulses that are equal in intensity. There is no evidence cyanosis or clubbing. No significant edema Skin: There are no rashes noted on examination today. Results & Data ([facility]) Vital Signs (Past 12 Hours) Vital Signs Temp Pulse Pulse Resp BP BP Pulse Ox 08/19/21 11:07 154/49 H 97 08/19/21 10:00 68 23 130/70 100 08/19/21 09:00 36.8 C 68 66 20 129/64 129/64 94 08/19/21 08:00 65 17 135/68 96 08/19/21 04:00 65 20 136/61 96 08/19/21 03:00 65 19 126/60 95 Laboratory Results Abnormal Lab Results 08/18/21 08/18/21 08/18/21 04:56 14:59 16:27 WBC RBC Hgb Hct MCV MCH MCHC RDW Std Deviation RDW Coeff of Irasema Plt Count MPV Sodium 126 L Potassium 5.2 H Chloride 97 L Carbon Dioxide 16 L Anion Gap 13 H BUN 137 H Creatinine 4.42 H Est Cr Clr Drug Dosing 9.9 Est GFR ( Amer) 10.0 Est GFR (Non-Af Amer) 8.6 BUN/Creatinine Ratio 31.0 H Glucose 129 H POC Glucose 167 H Calcium 7.2 L Magnesium Hep Bs Antigen NON-REACTIVE Hep Bs Ag Confirmation TNP Hep Bs Antibody, Quant 9 L Hep B Core IgM Ab NON-REACTIVE 08/18/21 08/19/21 08/19/21 20:14 05:42 05:42 WBC 9.00 RBC 2.67 L Hgb 8.0 L Hct 23.8 L MCV 89.1 MCH 30.0 MCHC 33.6 RDW Std Deviation 45.4 RDW Coeff of Irasema 13.8 Plt Count 224 MPV 10.2 Sodium 127 L Potassium 4.9 Chloride 95 L Carbon Dioxide 19 L Anion Gap 13 H BUN 138 H Creatinine 4.46 H Est Cr Clr Drug Dosing 9.8 Est GFR ( Amer) 9.9 Est GFR (Non-Af Amer) 8.5 BUN/Creatinine Ratio 30.9 H Glucose 117 H POC Glucose 143 H Calcium 7.0 L Magnesium 2.3 Hep Bs Antigen Hep Bs Ag Confirmation Hep Bs Antibody, Quant Hep B Core IgM Ab 08/19/21 11:24 WBC RBC Hgb Hct MCV MCH MCHC RDW Std Deviation RDW Coeff of Irasema Plt Count MPV Sodium Potassium Chloride Carbon Dioxide Anion Gap BUN Creatinine Est Cr Clr Drug Dosing Est GFR ( Amer) Est GFR (Non-Af Amer) BUN/Creatinine Ratio Glucose POC Glucose 135 H Calcium Magnesium Hep Bs Antigen Hep Bs Ag Confirmation Hep Bs Antibody, Quant Hep B Core IgM Ab PG Care Time/CCT Total # of Minutes Spent Total Time Spent with Patient: Total time spent is greater than 50% in coordination of care (as documented) at patient's floor/unit and/or counseling patient: Coding Level of Care Code 78570 Subseq Hosp Care Lvl 3 Diagnoses MCKEON (dyspnea on exertion) R06.00 Atrial fibrillation, new onset I48.91 CAD (coronary artery disease) I25.10 Aortic stenosis I35.0 Mitral stenosis and incompetence I05.2 Elevated troponin R77.8 Pericardial effusion I31.3
[2021-08-19] MEDS: rOPINIRole HCL 0.25 MG TABLET PO SCH (14:47)
[2021-08-19] MEDS: SODIUM BICARBONATE 650 MG TAB PO SCH (21:19)
[2021-08-19] MEDS: ATORVASTATIN 10 MG TAB PO SCH (21:20)
[2021-08-19] MEDS: rOPINIRole HCL 1 MG TABLET PO SCH (22:16)
[2021-08-20] MEDS: LEVOTHYROXINE SODIUM 112 MCG TABLET PO SCH (05:33)
[2021-08-20 06:03] LABS: Creatinine Clr Calc Pharmacy 9.8 ml/min; Est GFR (African American) 9.9 ml/min; Est GFR (Non-African American) 8.5 ml/min
[2021-08-20 07:19] LABS: Hematocrit (blood only) 23.6 % (37-47); Hemoglobin 8.1 g/dL (12.0-16.0); Mean Corpuscular Hemoglobin 30.6 pg (25-34); Mean Corpuscular Hgb Conc 34.3 g/dL (32-36); Mean Corpuscular Volume 89.1 fL (80-100); Mean Platelet Volume 10.3 fL (7.4-10.4); Platelet Count 233 K/uL (130-400); RDW Coefficient of Variation 13.7 % (11.5-14.5); Red Blood Count 2.65 M/uL (4.2-5.4); White Blood Count 8.94 K/uL (4.8-10.8)
[2021-08-20] MEDS: INSULIN ASPART PER UNIT SC SCH ×4 (08:10→20:37)
[2021-08-20 08:12] LABS: BUN Creatinine Ratio 32.3 (10-20); Calcium 6.8 mg/dl (8.5-10.1); Creatinine Clr Calc Pharmacy 10.1 ml/min; Est GFR (African American) 10.3 ml/min; Est GFR (Non-African American) 8.9 ml/min
[2021-08-20] MEDS: SERTRALINE HCL 50 MG TABLET PO SCH (08:32)
[2021-08-20] MEDS: SODIUM BICARBONATE 650 MG TAB PO SCH ×2 (08:32→20:36)
[2021-08-20] MEDS: PANTOprazole 40 MG TAB PO SCH ×2 (08:32→20:35)
[2021-08-20] MEDS: IRON SUCROSE 200 MG in 0.9 % SODIUM CHLORIDE 100 ML IV SCH (08:32)
[2021-08-20] MEDS: CALCIUM 600MG + VIT D 400 IU TAB PO SCH (08:32)
[2021-08-20] MEDS: DOXAZosin MESYLATE 4 MG TAB PO SCH (08:32)
[2021-08-20] MEDS: TAMSULOSIN HCL 0.4 MG CAP PO SCH (08:33)
[2021-08-20] MEDS: HEPARIN SOD 5,000 UNIT/0.5 ML VIAL SQ SCH ×2 (08:33→20:36)
[2021-08-20] MEDS: BETHANECHOL CHL 25 MG TAB PO SCH ×2 (08:33→20:36)
[2021-08-20] MEDS: DOCUSATE SODIUM 100 MG CAP PO SCH (08:34)
--- NOTE | 2021-08-20 08:52 | Nephrology Progress Note ---
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 Pericardial cultures and cytology are negative * Patient remains oliguric. Kidney function is essentially unchanged last 24 hours. No acute indication for HD today * Continue supportive care, NaHCO3 supplementation * Discussed TCC placement and BENCH HAND in detail w/ Ms. Ray and her daughter Cher today. They are receptive of starting HD early next week if no improvement in kidney function over the weekend. They understand that Ms. Ray may not tolerate the hemodynamic stress of dialysis due to her valvular heart disease but are agreeable to a trial of HD if needed. We did discuss the process of 3x/week outpatient HD and the likely need for assistance at home w/ ADL's and transportation following discharge from the hospital (2) Hyperkalemia: Plan: * Improved with medical management * Continue low potassium diet and scheduled Patiromer (3) Hyponatremia: Plan: * Chronic/stable hyponatremia * Continue free water restriction to <1.5 L daily (4) Anemia: Plan: * Day #4 of 5 IV Venofer * Epogen 10,000 units given 08/17 (5) Pericardial effusion: Plan: * Blood cultures and cytology negative * No pericardial friction rub on PE today Admission and Anticipated Discharge Date Admission Date: August 14, 2021 Subjective Ms. Ray was evaluated in her hospital room this morning. She awakened to voice and was oriented to self, place and month. She denied dyspnea, angina or uremic symptoms. He primary concern was fatigue. Review of Systems Constitutional: + weakness; no fever Eyes: no problem reported Ear, Nose, Mouth, Throat: no problem reported Respiratory: no cough and no dyspnea Cardiovascular: no chest pain, no palpitations and no edema Gastrointestinal: no abdominal pain, no nausea, no vomiting and no diarrhea/loose stools Musculoskeletal: no back pain Integumentary: no rash Neurologic: no confusion Physical Exam Constitutional: + frail appearing; not in distress Eyes: PERRL, conjunctivae normal, anicteric sclerae ENMT: external ear and nose normal, oropharynx normal Neck: trachea midline, no thyromegaly Respiratory: normal respiratory effort, lungs clear to auscultation Cardiovascular: Rate/Rhythm: regular rate and regular rhythm Heart Sounds: + murmur (harsh systolic murmur from apex to RUSB) Gastrointestinal (Abdomen): normal bowel sounds, soft, nontender, no hepatosplenomegaly Musculoskeletal: Extremities: no cyanosis Skin: no rashes, warm and dry Neurologic: awake; not confused Results & Data ([facility]) Vital Signs (Past 12 Hours) Vital Signs Temp Pulse Pulse Resp BP Pulse Ox 08/20/21 06:37 36.6 C 64 18 158/52 H 96 08/20/21 03:38 66 08/20/21 03:29 36.5 C 72 16 143/47 H 95 08/19/21 23:30 36.6 C 64 18 127/54 L 95 Laboratory Results Laboratory Tests 08/18/21 08/20/21 08/20/21 04:56 05:34 05:34 WBC 8.94 Hgb 8.1 L Hct 23.6 L Plt Count 233 Sodium 125 L Potassium 5.0 Chloride 93 L Carbon Dioxide 18 L BUN 139 H Creatinine 4.31 H Glucose 116 H Calcium 6.8 L Albumin 2.9 L PG Care Time/CCT Total # of Minutes Spent Total Time Spent with Patient: Total time spent is greater than 50% in coordination of care (as documented) at patient's floor/unit and/or counseling patient: Coding Level of Care Code 51095 Subseq Hosp Care Lvl 3 Diagnoses Acute kidney injury superimposed on chronic kidney disease N17.9; N18.9 Hyperkalemia E87.5 Anemia D64.9 Pericardial effusion I31.3 Hyponatremia E87.1
[2021-08-20] MEDS: PATIROMER CALCIUM SORBITEX 8.4 GM PACK PO SCH (12:14)
[2021-08-20] MEDS: rOPINIRole HCL 0.25 MG TABLET PO SCH (14:08)
--- NOTE | 2021-08-20 16:14 | Hospitalist Progress Note ---
Date of Service August 20, 2021 Assessment & Plan (1) Acute kidney injury superimposed on chronic kidney disease: Plan: Advanced kidney dysfunction with renal vascular disease with atrophic right kidney, according to nephrology renal angiogram will likely result in end-stage kidney disease No indication for HD presently (2) (HFpEF) heart failure with preserved ejection fraction: Plan: Per prior notes, appeared slightly hypervolemic on admission, with ongoing shortness of breath, orthopnea. Vascular congestion noted on CXR. - Home Lasix, transitioned to 80 mg IV Lasix twice daily on admission. - Dry weight reported 159 pounds. - RHC on 08/15 showed following:increased pulmonary capillary wedge pressure cardiology recommended increased diuresis On 08/16, Cr was up significantly. Lasix held. Suggested pericardial effusion, Pericardiocentesis on 08/17 with ~350 mL bloody drainage. Sent for culture, cell count, cytology. Ddx for bloody pericardial fluid is generally iatrogenic (from cath procedure; this is unlikely), malignancy (26%), complications of arthrosclerotic disease (11%), and idiopathic (10%). (PMID:[id number]) - Discussed with cardiology on 08/18; unclear why cardiac output and renal perfusion is so low. At this point, lasix held, (3) Hyponatremia: Plan: Continues possibly confounded by volume administration on 08/17 continue to restrict free water nephrology following (4) Aortic stenosis: Plan: moderate to severe also concerns with mitral valve disease stenosis (5) Diabetes mellitus type 2 with complications: Plan: Outpatient hemoglobin A1c's have been low 4.7%6.6% over the last 2 years. - Hold oral agents, cover with SSI w/out carb coverage. - BSs have been 130 - 170. (6) CAD (coronary artery disease): Plan: Chronic, stable. - Continue statin, antihypertensives, Plavix. - Troponin very minimally elevated lower than troponin from prior ED visit. Likely mildly elevated in setting of MICHAEL/CKD. (7) History of CVA (cerebrovascular accident): Plan: Had Plavix held on last admission due to GI bleed.- Continue to hold Plavix. (8) Hypertension: Plan: BP stable today - Continue amlodipine - Hold losartan for now due to MICHAEL. (9) Hypothyroidism: Plan: - Continue levothyroxine. (10) Restless legs: Plan: - Continue ropinirole. (11) History of GI bleed: Plan: - Hospitalized earlier this month requiring 2 units of transfusion. EGD deferred at that time due to elevated troponin. Was thought it may be due to AVMs, she has increased risk for this due to her aortic stenosis. - Continue Protonix twice daily. - Hgb appears stable, continue to trend on a.m. labs. Plan: - SCDs for DVT PPx. Admission and Anticipated Discharge Date Admission Date: August 14, 2021 Results & Data Results & Data ([facility]) Vital Signs (Past 12 Hours) Vital Signs Temp Pulse Resp BP Pulse Ox 08/20/21 10:56 97.9 F 68 18 126/53 L 95 08/20/21 06:37 97.9 F 64 18 158/52 H 96 PG Care Time/CCT Total # of Minutes Spent Total Time Spent with Patient: Total time spent is greater than 50% in coordination of care (as documented) at patient's floor/unit and/or counseling patient: Coding Level of Care Code 02323 Subseq Hosp Care Lvl 2 Diagnoses Acute kidney injury superimposed on chronic kidney disease N17.9; N18.9 (HFpEF) heart failure with preserved ejection fraction I50.30 Hyponatremia E87.1 Aortic stenosis I35.0 Diabetes mellitus type 2 with complications E11.8 CAD (coronary artery disease) I25.10 History of CVA (cerebrovascular accident) Z86.73 Hypertension I10 Hypothyroidism E03.9 Restless legs G25.81 History of GI bleed Z87.19 Time Spent (min) 35
[2021-08-20] MEDS: rOPINIRole HCL 1 MG TABLET PO SCH (20:35)
[2021-08-20] MEDS: cefUROXime axetil 250 MG TABLET PO SCH (20:35)
[2021-08-20] MEDS: ATORVASTATIN 10 MG TAB PO SCH (20:36)
[2021-08-21] MEDS: ONDANSETRON INJ 2 MG/ML 2 ML VIAL IV PRN ×3 (00:37→23:08)
[2021-08-21] MEDS ORDERED: COUGH DROP (SUGAR FREE) LOZ 24 LOZ/1 BOX BUCCAL ONE (03:28)
[2021-08-21] MEDS: LEVOTHYROXINE SODIUM 112 MCG TABLET PO SCH (05:49)
[2021-08-21 06:39] LABS: Hematocrit (blood only) 23.3 % (37-47); Hemoglobin 8.2 g/dL (12.0-16.0); Mean Corpuscular Hemoglobin 31.4 pg (25-34); Mean Corpuscular Hgb Conc 35.2 g/dL (32-36); Mean Corpuscular Volume 89.3 fL (80-100); Mean Platelet Volume 10.1 fL (7.4-10.4); Platelet Count 227 K/uL (130-400); RDW Coefficient of Variation 13.6 % (11.5-14.5); RDW Standard Deviation 44.4 fL (36.4-46.3); Red Blood Count 2.61 M/uL (4.2-5.4); White Blood Count 8.23 K/uL (4.8-10.8)
[2021-08-21 06:59] LABS: INR 1.2 (0.9-1.1); Prothrombin Time 12.2 Seconds (9.0-12.0)
[2021-08-21 07:16] LABS: BUN Creatinine Ratio 34.6 (10-20); Creatinine Clr Calc Pharmacy 10.4 ml/min; Est GFR (African American) 10.6 ml/min; Est GFR (Non-African American) 9.1 ml/min; Potassium 4.9 mmol/L (3.5-5.1)
[2021-08-21] MEDS: SODIUM BICARBONATE 650 MG TAB PO SCH ×3 (08:32→20:04)
[2021-08-21] MEDS: DOXAZosin MESYLATE 4 MG TAB PO SCH (08:32)
[2021-08-21] MEDS: TAMSULOSIN HCL 0.4 MG CAP PO SCH (08:32)
[2021-08-21] MEDS: HEPARIN SOD 5,000 UNIT/0.5 ML VIAL SQ SCH ×2 (08:33→20:05)
[2021-08-21] MEDS: CALCIUM 600MG + VIT D 400 IU TAB PO SCH (08:33)
[2021-08-21] MEDS: BETHANECHOL CHL 25 MG TAB PO SCH ×2 (08:33→20:04)
[2021-08-21] MEDS: SERTRALINE HCL 50 MG TABLET PO SCH (08:34)
[2021-08-21] MEDS: PANTOprazole 40 MG TAB PO SCH ×2 (08:34→20:04)
[2021-08-21] MEDS: IRON SUCROSE 200 MG in 0.9 % SODIUM CHLORIDE 100 ML IV SCH (08:38)
[2021-08-21] MEDS: DOCUSATE SODIUM 100 MG CAP PO SCH (08:38)
[2021-08-21] MEDS: INSULIN ASPART PER UNIT SC SCH ×4 (08:39→20:59)
--- NOTE | 2021-08-21 08:50 | Nephrology Progress Note ---
Date of Service August 21, 2021 Assessment & Plan (1) Acute kidney injury superimposed on chronic kidney disease: Plan: * MICHAEL on CKD likely related to valvular heart disease, elevated right heart pressure, renal vascular disease with atrophic R kidney and documented ZBIGNIEW involving the L kidney * Renal angiogram will likely result in ESKD * Pericardial effusion has been drained with little hemodynamic improvement. Pericardial cultures and cytology are negative * UO improved to 650 cc last 24 hours, Cr mildly improved from 4.4 --> 4.2 but BUN has risen to 146. Patient has no uremic symptoms, no pericardial rub. No acute indication for HD today. Will reassess in am * Continue supportive care, NaHCO3 supplementation * Discussed TCC placement and [employer]IE[employer] in detail w/ Ms. Ray and her daughter Cher yesterday. They are receptive of starting HD early next week if no i mprovement in kidney function over the weekend. They understand that Ms. Ray may not tolerate the hemodynamic stress of dialysis due to her valvular heart disease but are agreeable to a trial of HD if needed. We did discuss the process of 3x/week outpatient HD and the likely need for assistance at home w/ ADL's and transportation following discharge from the hospital (2) Hyperkalemia: Plan: * Improved with medical management * Continue low potassium diet * Will stop Patiromer (3) Hyponatremia: Plan: * Chronic/stable hyponatremia * Continue free water restriction to <1.5 L daily (4) Anemia: Plan: * Day #5 of 5 IV Venofer * Epogen 10,000 units given 08/17 (5) Pericardial effusion: Plan: * Blood cultures and cytology negative * No pericardial friction rub on PE today Admission and Anticipated Discharge Date Admission Date: August 14, 2021 Subjective Ms. Ray was evaluated in her hospital room this morning. She awakened to voice and was oriented to self, place and month. Ms. Ray denied dyspnea, angina or uremic symptoms. She expressed a desire to get out of bed and begin PT for strengthening Review of Systems Constitutional: + weakness; no fever Eyes: no problem reported Ear, Nose, Mouth, Throat: no problem reported Respiratory: no cough and no dyspnea Cardiovascular: no chest pain, no palpitations and no edema Gastrointestinal: no abdominal pain, no nausea, no vomiting and no diarrhea/loose stools Musculoskeletal: no back pain Integumentary: no rash Neurologic: no confusion Physical Exam Constitutional: + frail appearing; not in distress Eyes: PERRL, conjunctivae normal, anicteric sclerae ENMT: external ear and nose normal, oropharynx normal Neck: trachea midline, no thyromegaly Respiratory: normal respiratory effort, lungs clear to auscultation Cardiovascular: Rate/Rhythm: regular rate and regular rhythm Heart Sounds: + murmur (harsh systolic murmur from apex to RUSB) Gastrointestinal (Abdomen): normal bowel sounds, soft, nontender, no hepatos plenomegaly Musculoskeletal: Extremities: no cyanosis Skin: no rashes, warm and dry Neurologic: awake; not confused Results & Data ([facility]) Vital Signs (Past 12 Hours) Vital Signs Temp Pulse Pulse Resp BP Pulse Ox 08/21/21 07:03 36.6 C 62 18 130/50 L 96 08/21/21 03:20 36.5 C 68 18 138/58 L 95 08/20/21 23:34 70 08/20/21 23:32 36.7 C 72 20 142/54 H 95 Laboratory Results Laboratory Tests 08/21/21 08/21/21 05:50 05:50 WBC 8.23 Hgb 8.2 L Hct 23.3 L Plt Count 227 Sodium 125 L Potassium 4.9 Chloride 93 L Carbon Dioxide 18 L BUN 146 H Creatinine 4.22 H Glucose 109 H Calcium 7.0 L Laboratory Tests 08/21/21 05:50 INR 1.2 H PG Care Time/CCT Total # of Minutes Spent Total Time Spent with Patient: Total time spent is greater than 50% in coordination of care (as documented) at patient's floor/unit and/or counseling patient: Coding Level of Care Code 34005 Subseq Hosp Care Lvl 3 Diagnoses Acute kidney injury superimposed on chronic kidney disease N17.9; N18.9 Hyperkalemia E87.5 Hyponatremia E87.1 Anemia D64.9 Pericardial effusion I31.3
--- NOTE | 2021-08-21 13:22 | Hospitalist Progress Note ---
Date of Service August 21, 2021 Assessment & Plan (1) Acute kidney injury superimposed on chronic kidney disease: Plan: Advanced kidney dysfunction with renal vascular disease with atrophic right kidney, according to nephrology renal angiogram will likely result in end-stage kidney disease Slight improvement in renal function There are plans for HD next week, patient is open to that possiblity (2) (HFpEF) heart failure with preserved ejection fraction: Plan: patient apperas currently compensated - Home Lasix, transitioned to 80 mg IV Lasix twice daily on admission. - Dry weight reported 159 pounds. - RHC on 08/15 showed following:increased pulmonary capillary wedge pressure cardiology recommended increased diuresis On 08/16, Cr was up significantly. Lasix held. Suggested pericardial effusion, Pericardiocentesis on 08/17 with ~350 mL bloody drainage. Sent for culture, cell count, cytology. Ddx for bloody pericardial fluid is generally iatrogenic (from cath procedure; this is unlikely), malignancy (26%), complications of arthrosclerotic disease (11%), and idiopathic (10%). ([id number]) - Discussed with cardiology on 08/18; unclear why cardiac output and renal perfusion is so low. At this point, lasix held, (3) Hyponatremia: Plan: continue to monitor (4) Aortic stenosis: Plan: moderate to severe also concerns with mitral valve disease stenosis (5) Diabetes mellitus type 2 with complications: Plan: Outpatient hemoglobin A1c's have been low 4.7%6.6% over the last 2 years. - Hold oral agents, cover with SSI w/out carb coverage. - BSs have been 130 - 170. (6) CAD (coronary artery disease): Plan: Chronic, stable. - Continue statin, antihypertensives, Plavix. - Troponin very minimally elevated lower than troponin from prior ED visit. Likely mildly elevated in setting of MICHAEL/CKD. (7) History of CVA (cerebrovascular accident): Plan: Had Plavix held on last admission due to GI bleed.- Continue to hold Plavix. (8) Hypertension: Plan: BP stable today - Continue amlodipine - Hold losartan for now due to MICHAEL. (9) Hypothyroidism: Plan: - Continue levothyroxine. (10) Restless legs: Plan: - Continue ropinirole. (11) History of GI bleed: Plan: - Hospitalized earlier this month requiring 2 units of transfusion. EGD deferred at that time due to elevated troponin. Was thought it may be due to AVMs, she has increased risk for this due to her aortic stenosis. - Continue Protonix twice daily. - Hgb appears stable, continue to trend on a.m. labs. Plan: - SCDs for DVT PPx. Admission and Anticipated Discharge Date Admission Date: August 14, 2021 Subjective patient seen and examined, looking foward to HD next week Review of Systems Review of Systems: All systems reviewed are negative, apart from the ones contained in the history. Physical Exam Physical Exam: The patient is awake, alert and oriented 3, well developed and well nourished, normocephalic and atraumatic, lying in bed and in no acute distress. HEENT--PERRL, EOMI, mucous membranes and oropharynx mildly dry Neck--supple. No JVD. No bruits. Thyroid normal, trachea midline, no adenopathy. Heart--normal S1 and S2. No murmurs, rubs or gallops. Lungs--clear bilaterally, no respiratory distress, no accessory muscle use. Abdomen--normal bowel sounds and soft. Mild epigastric and left sided abdominal pain Extremities--no cyanosis or clubbing. No edema. Dermatologic--normal skin turgor, normal color, no abnormal lymph nodes, no rash. Neurologic--cranial nerves II through XII grossly intact. Rheumatologic--normal range of motion. Psychiatric--normal affect. Results & Data Results & Data ([facility]) Vital Signs (Past 12 Hours) Vital Signs Temp Pulse Resp BP Pulse Ox 08/21/21 12:10 98.2 F 71 20 148/60 H 97 08/21/21 07:03 97.9 F 62 18 130/50 L 96 08/21/21 03:20 97.7 F 68 18 138/58 L 95 PG Care Time/CCT Total # of Minutes Spent Total Time Spent with Patient: Total time spent is greater than 50% in coordination of care (as documented) at patient's floor/unit and/or counseling patient: Coding Level of Care Code 67112 Subseq Hosp Care Lvl 2 Diagnoses Acute kidney injury superimposed on chronic kidney disease N17.9; N18.9 (HFpEF) heart failure with preserved ejection fraction I50.30 Hyponatremia E87.1 Aortic stenosis I35.0 Diabetes mellitus type 2 with complications E11.8 CAD (coronary artery disease) I25.10 History of CVA (cerebrovascular accident) Z86.73 Hypertension I10 Hypothyroidism E03.9 Restless legs G25.81 History of GI bleed Z87.19 Time Spent (min) 35
[2021-08-21] MEDS: rOPINIRole HCL 0.25 MG TABLET PO SCH (15:41)
[2021-08-21] MEDS: ATORVASTATIN 10 MG TAB PO SCH (20:04)
[2021-08-21] MEDS: rOPINIRole HCL 1 MG TABLET PO SCH (20:05)
[2021-08-22] MEDS: LEVOTHYROXINE SODIUM 112 MCG TABLET PO SCH (05:41)
[2021-08-22 06:41] LABS: Hematocrit (blood only) 24.2 % (37-47); Hemoglobin 8.2 g/dL (12.0-16.0); Mean Corpuscular Hemoglobin 30.6 pg (25-34); Mean Corpuscular Hgb Conc 33.9 g/dL (32-36); Mean Corpuscular Volume 90.3 fL (80-100); Mean Platelet Volume 9.4 fL (7.4-10.4); Platelet Count 215 K/uL (130-400); RDW Coefficient of Variation 13.7 % (11.5-14.5); Red Blood Count 2.68 M/uL (4.2-5.4)
[2021-08-22 07:14] LABS: BUN Creatinine Ratio 34.4 (10-20); Calcium 6.8 mg/dl (8.5-10.1); Creatinine Clr Calc Pharmacy 9.8 ml/min; Est GFR (African American) 9.8 ml/min; Est GFR (Non-African American) 8.4 ml/min; Potassium 4.8 mmol/L (3.5-5.1)
[2021-08-22] MEDS: INSULIN ASPART PER UNIT SC SCH ×4 (08:22→21:30)
[2021-08-22] MEDS: SERTRALINE HCL 50 MG TABLET PO SCH (08:27)
[2021-08-22] MEDS: DOCUSATE SODIUM 100 MG CAP PO SCH (08:27)
[2021-08-22] MEDS: CALCIUM 600MG + VIT D 400 IU TAB PO SCH (08:27)
[2021-08-22] MEDS: TAMSULOSIN HCL 0.4 MG CAP PO SCH (08:27)
[2021-08-22] MEDS: PANTOprazole 40 MG TAB PO SCH ×2 (08:28→20:17)
[2021-08-22] MEDS: HEPARIN SOD 5,000 UNIT/0.5 ML VIAL SQ SCH ×2 (08:28→20:19)
[2021-08-22] MEDS: SODIUM BICARBONATE 650 MG TAB PO SCH ×3 (08:28→20:16)
[2021-08-22] MEDS: BETHANECHOL CHL 25 MG TAB PO SCH ×2 (08:29→20:21)
[2021-08-22] MEDS: IRON SUCROSE 200 MG in 0.9 % SODIUM CHLORIDE 100 ML IV SCH (08:30)
--- NOTE | 2021-08-22 09:07 | Nephrology Progress Note ---
Date of Service August 22, 2021 Assessment & Plan (1) Acute kidney injury superimposed on chronic kidney disease: Plan: * MICHAEL on CKD likely related to valvular heart disease, elevated right heart pressure, renal vascular disease with atrophic R kidney and documented ZBIGNIEW involving the L kidney * Renal angiogram will likely result in ESKD * Pericardial effusion has been drained with little hemodynamic improvement. Pericardial cultures and cytology are negative * Although nonoliguric, Cr has risen to 4.5 this morning and patient has progressive azotemia w/ BUN 155. Patient now c/o nausea and suffered one episode of emesis this am * Continue supportive care, NaHCO3 supplementation * I have discussed the indications/risks/benefits of [employer] w/ Ms. Faria this morning. She would like to proceed w/ IJ TCC insertion and a trial of dialysis. I did attempt to contact her daughter Cher this am to provide a medical update - no answer * Will consult Vascular Surgery for TCC placement * Will consult Case Management to set up outpatient HD at [facility] (2) Hyperkalemia: Plan: * Corrected with medical management * Continue low potassium diet * Will stop Patiromer (3) Hyponatremia: Plan: * Chronic/stable hyponatremia * Continue free water restriction to <1.5 L daily (4) Anemia: Plan: * 1g IV Venofer completed 08/21 * Epogen 10,000 units given 08/17 (5) Pericardial effusion: Plan: * Blood cultures and cytology negative * No pericardial friction rub on PE today Admission and Anticipated Discharge Date Admission Date: August 14, 2021 Subjective Ms. Faria was evaluated in her hospital room this morning. She was sitting up in a chair oriented to self, place and month. Ms. Faria denied dyspnea or angina but did report one episode of emesis this am Review of Systems Constitutional: + weakness; no fever Eyes: no problem reported Ear, Nose, Mouth, Throat: no problem reported Respiratory: no cough and no dyspnea Cardiovascular: no chest pain, no palpitations and no edema Gastrointestinal: no abdominal pain, no nausea, no vomiting and no d iarrhea/loose stools Musculoskeletal: no back pain Integumentary: no rash Neurologic: no confusion Physical Exam Constitutional: + frail appearing; not in distress Eyes: PERRL, conjunctivae normal, anicteric sclerae ENMT: external ear and nose normal, oropharynx normal Neck: trachea midline, no thyromegaly Respiratory: normal respiratory effort, lungs clear to auscultation Cardiovascular: Rate/Rhythm: regular rate and regular rhythm Heart Sounds: + murmur (harsh systolic murmur from apex to RUSB) Gastrointestinal (Abdomen): normal bowel sounds, soft, nontender, no hepatosplenomegaly Musculoskeletal: Extremities: no cyanosis Skin: no rashes, warm and dry Neurologic: awake; not confused Results & Data ([facility]) Vital Signs (Past 12 Hours) Vital Signs Temp Pulse Resp BP Pulse Ox 08/22/21 07:20 36.5 C 64 20 118/46 L 95 08/22/21 03:23 36.5 C 62 18 129/47 L 96 08/21/21 23:12 36.5 C 74 18 150/53 H 95 Laboratory Results Laboratory Tests 08/22/21 08/22/21 06:22 06:22 WBC 7.60 Hgb 8.2 L Hct 24.2 L Plt Count 215 Sodium 127 L Potassium 4.8 Chloride 93 L Carbon Dioxide 19 L BUN 155 H Creatinine 4.51 H* Glucose 137 H Laboratory Tests 08/21/21 05:50 INR 1.2 H Laboratory Tests 08/08/21 08/15/21 08/16/21 10:01 08:00 06:02 Creatinine 1.51 H 2.09 H 3.04 H D 08/17/21 08/18/21 08/18/21 07:44 04:56 14:59 Creatinine 3.78 H D 4.40 H D 4.42 H 08/20/21 08/20/21 08/21/21 05:30 05:34 05:50 Creatinine 4.46 H 4.31 H 4.22 H PG Care Time/CCT Total # of Minutes Spent Total Time Spent with Patient: Total time spent is greater than 50% in coordination of care (as documented) at patient's floor/unit and/or counseling patient: Coding Level of Care Code 32785 Subseq Hosp Care Lvl 3 Diagnoses Acute kidney injury superimposed on chronic kidney disease N17.9; N18.9 Hyperkalemia E87.5 Hyponatremia E87.1 Anemia D64.9 Pericardial effusion I31.3
[2021-08-22] MEDS: DOXAZosin MESYLATE TAB 2 MG TAB PO SCH (09:39)
--- NOTE | 2021-08-22 11:09 | Consultation ---
Date of Consultation August 22, 2021 Assessment & Plan (1) Acute kidney injury superimposed on chronic kidney disease: Pt scheduled for permcath insertion in OR by Dr Murray tomorrow. Procedure, risks, benefits, and alternatives discussed with pt at Dr Murray's request. Pt expresses understanding and agreement. History of Present Illness Reason for Consultation: ESRD, need permcath Attending Physician: Rafael Monroe MD History of Present Illness 81yo f with multiple medical problems, including CKD, CHF, a fib, CVA, HTN, DMII, gastroparesis, neurogenic bladder, glaucoma, macular degeneration, liver cirrhosis, anxiety, aortic stenosis, GERD, hyperlipidemia, first degree AV block, hypothyroidism, hiatal hernia, admitted with worsening renal fxn, seen in consultation today for permcath insertion for HD initiation. Pt states she is tired and generally not feeling well. Denies MURILLO, fever, chest pain, SOB, abd pain, vomiting, rest pain, claudication, other complaints. Allergies Allergy/AdvReac Type Severity Reaction Status Date / Time sulfamethoxazole AdvReac Unknown Verified 08/14/21 19:49 [From Bactrim] trimethoprim [From Bactrim] AdvReac Unknown Verified 08/14/21 19:49 Home Medications Medication Instructions Recorded Confirmed Type calcium carbonate 600 mg-vitamin 1 cap PO QAM 05/29/18 08/14/21 History D3 5 mcg (200 unit) capsule (Calcium 600 + D(3)) cholecalciferol (vitamin D3) 25 1,000 unit PO QAM 05/29/18 08/14/21 History mcg (1,000 unit) capsule (Vitamin D3) cranberry fruit concentrate 250 mg 500 mg PO QAM 05/29/18 08/14/21 History chewable tablet (Azo Cranberry) omega-3s 300 [id number] 1 cap PO QAM 05/29/18 08/14/21 History [id number] oil 1,000 mg capsule ([place]-3 Fish Oil) vitamin E 1,000 unit capsule 1,000 unit PO QAM 05/29/18 08/14/21 History blood sugar diagnostic (Blood #100 ea 10/12/20 08/03/21 Rx Glucose Test) acetaminophen 500 mg tablet 500 mg PO Q6H PRN 11/12/20 08/14/21 History (Tylenol Extra Strength) ascorbic acid (vitamin C) 500 mg 1,000 mg PO QAM 11/12/20 08/14/21 History tablet (Vitamin C) cyanocobalamin (vitamin B-12) 1,000 mcg PO QAM 11/12/20 08/14/21 History 1,000 mcg tablet (Vitamin B-12) docusate sodium 100 mg capsule 100 mg PO QAM PRN 11/12/20 08/14/21 History (Colace) nitrofurantoin 100 cap PO QAM 11/12/20 08/14/21 History monohydrate/macrocrystals 100 mg capsule (Macrobid) tamsulosin 0.4 mg capsule (Flomax) 0.4 mg PO QAM 11/12/20 08/14/21 History magnesium oxide 500 mg PO QAM tab 11/22/20 08/14/21 History furosemide 40 mg tablet (Lasix) 40 mg PO BID #180 tab 03/28/21 08/14/21 Rx levothyroxine 112 mcg tablet 112 mcg PO DAILYBB #90 tab 03/31/21 08/14/21 Rx (Synthroid) bethanechol chloride 50 mg tablet 50 mg PO BID #180 tab 04/19/21 08/14/21 Rx ferrous sulfate 325 mg (65 mg 325 mg PO BID #60 tab 04/21/21 08/14/21 Rx iron) tablet atorvastatin 10 mg tablet (Lipitor) 10 mg PO HS #90 tab 04/25/21 08/14/21 Rx linagliptin 5 mg tablet (Tradjenta) 5 mg PO QAM #90 tab 05/23/21 08/14/21 Rx ropinirole 0.5 mg tablet See Rx Instructions PO .COMPLEX 05/23/21 08/14/21 Rx #360 tab triamcinolone acetonide 0.5 % 1 applic TOPICAL BID PRN #60 g 06/24/21 08/14/21 Rx topical cream amlodipine 10 mg tablet (Norvasc) 10 mg PO QAM #90 tab 07/08/21 08/14/21 Rx doxazosin 4 mg tablet 4 mg PO DAILY 07/13/21 08/14/21 History tramadol 50 mg tablet (Ultram) 50 mg PO BID PRN #60 tab 07/14/21 08/14/21 Rx pantoprazole 40 mg tablet,delayed 40 mg PO BID #60 tab 08/05/21 08/14/21 Rx release (Protonix) methocarbamol 500 mg tablet 500 mg PO TID PRN #90 tab 08/11/21 08/14/21 Rx sertraline 25 mg tablet 25 mg PO UD 08/14/21 08/14/21 History Patient History Medical History Anemia of chronic disease Anxiety Aortic stenosis CAD (coronary artery disease) Chronic back pain Chronic diastolic heart failure Chronic hyponatremia Chronic kidney disease, stage 3a Diabetes mellitus, type 2 Diabetic retinopathy Essential tremor MINOR IN HAND Fatty liver First degree AV block GERD without esophagitis Hearing deficit Hiatal hernia History of CVA (cerebrovascular accident) (2019) L lacunar infarct Hyperlipidemia Hypertension Hypothyroidism 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 On anticoagulant therapy Osteoarthritis RBBB Recurrent UTI Resistant hypertension Restless legs Stage 3b chronic kidney disease Urinary urgency Venous insufficiency Weakness Surgical History H/O varicose vein ligation History of back surgery (04/2010) X 2 History of bladder suspension procedure X 2 History of colonoscopy History of esophagogastroduodenoscopy (EGD) History of tooth extraction S/P carpal tunnel release RT/LEFT S/P hysterectomy ANDRIA S/P knee replacement RT/LEFT S/P trigger finger release Family History Father Alcohol abuse Heart disease Myocardial infarction Hypertension Sister Pancreatic cancer Diabetes Breast cancer Brother Diabetes Alcohol abuse Stroke Other Cancer No family history of adverse response to anesthesia Denies family history of Ovarian cancer Prostate cancer Colorectal cancer Social History Smoking Status: Never smoker Second Hand Exposure: No; Hx Alcohol Use: No Hx Substance Use: No Preferred Language: Kyrgyz Communication Ability: Effective Visual Impairment: No Limitations Hearing Ability: Normal 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 Worker Required: No Beliefs That Will Affect Care: None marital status: Single Current Living Situation: Alone current occupational status: retired How many Children do You have: 2 Feels Safe at Home: Yes Childhood Exposure to Second-Hand Smoke: No caffeine: Yes (Coffee x 2 cups per day.) during the past year weight has: remained stable Dental Care, Regularly: No Physical Activity Frequency: Does not Exercise Seatbelt Use: always Sunscreen Use: Yes Assistive Devices: Cane and Walker Review of Systems Review of Systems: All systems reviewed & are unremarkable except as noted in HPI & below Physical Exam Constitutional: WD/WN, vitals as above cooperative and comfortable; not in distress ENMT: Ears: no hearing impairment Neck: trachea midline Respiratory: normal respiratory effort, lungs clear to auscultation Auscultation: + diminished lung sounds Cardiovascular: Rate/Rhythm: + irregularly irregular Vessels: femoral pulses present, posterior tibial pulses present, dorsalis pedis pulses present and radial pulses present; + abnormal peripheral pulses Extremities: normal capillary refill and + edema Gastrointestinal (Abdomen): Inspection/Auscultation: abdomen normal to inspection and normal bowel sounds Percussion/Palpation: abdomen soft; abdomen nontender Musculoskeletal: no cyanosis or clubbing, extremities motor strength 5/5 Skin: no rashes, warm and dry Neurologic: moves all extremities and awake; no focal motor deficits and not confused Psychiatric: A+Ox3, euthymic affect Results & Data ([facility]) Vital Signs (Past 12 Hours) Vital Signs Temp Pulse Resp BP Pulse Ox 08/22/21 07:20 36.5 C 64 20 118/46 L 95 08/22/21 03:23 36.5 C 62 18 129/47 L 96 08/21/21 23:12 36.5 C 74 18 150/53 H 95
--- NOTE | 2021-08-22 12:13 | Cardiology Progress Note ---
Date of Service August 22, 2021 Assessment & Plan (1) Atrial fibrillation, new onset: Plan: -ventricular response adequately controlled without rate-controlling medications. -not on anticoagulation due to recent bleeding small-bowel AVMs. (2) CAD (coronary artery disease): Plan: -nonobstructive disease by cardiac catheterization in July 2008. -50% RCA stenosis. (3) Aortic stenosis: Plan: -moderate aortic stenosis on current study, unchanged from December 2020. -also evidence of mild to moderate mitral stenosis. -not a likely culprit in her recent deterioration. (4) Pericardial effusion: Plan: -s/p pericardiocentesis, 350 cc, 08/17/2021. -cultures negative. (5) (HFpEF) heart failure with preserved ejection fraction: Plan: -appears compensated this time. Admission and Anticipated Discharge Date Admission Date: August 14, 2021 Subjective The patient is resting comfortably in bedside chair complaints of chest pain, dyspnea, palpitations. Her only complaint is that of fatigue. Physical Exam Physical Exam: In general this is an obese white female in no acute distress. HEENT exam is negative. Neck is supple with mildly delayed carotid upstrokes. There is a transmitted murmur bilaterally. No JVD. There is no thyromegaly. Cardiovascular exam reveals an irregularly irregular rhythm with a 2/6 crescendo decrescendo systolic murmur heard loudest at the base. No S3. Lungs are clear without rales, rhonchi, or wheezes. Abdomen is soft and nontender without bruits. Extremities reveal intact radial artery and posterior tibial pulses bilaterally. There is 1+ pretibial edema. Results & Data ([facility]) Vital Signs (Past 12 Hours) Vital Signs Temp Pulse Resp BP Pulse Ox 08/22/21 11:09 36.6 C 52 L 19 124/53 L 97 08/22/21 07:20 36.5 C 64 20 118/46 L 95 08/22/21 03:23 36.5 C 62 18 129/47 L 96 Diagnostic Findings forensic psychologist notes rate controlled atrial fibrillation. PG Care Time/CCT Total # of Minutes Spent Total Time Spent with Patient: Total time spent is greater than 50% in coordination of care (as documented) at patient's floor/unit and/or counseling patient: Coding Level of Care Code 12562 Subseq Hosp Care Lvl 3 Diagnoses Atrial fibrillation, new onset I48.91 CAD (coronary artery disease) I25.10 Aortic stenosis I35.0 Pericardial effusion I31.3 (HFpEF) heart failure with preserved ejection fraction I50.30
[2021-08-22] MEDS: rOPINIRole HCL 0.25 MG TABLET PO SCH (12:48)
[2021-08-22] MEDS: ONDANSETRON INJ 2 MG/ML 2 ML VIAL IV PRN ×2 (12:48→23:54)
--- NOTE | 2021-08-22 12:59 | Hospitalist Progress Note ---
Date of Service August 22, 2021 Assessment & Plan (1) Acute kidney injury superimposed on chronic kidney disease: Plan: Advanced kidney dysfunction with renal vascular disease with atrophic right kidney, according to nephrology renal angiogram will likely result in end-stage kidney disease Slight improvement in renal function There are plans for HD next this week Consult Vascular for temporary access appreciate nephrology recs (2) (HFpEF) heart failure with preserved ejection fraction: Plan: patient apperas currently compensated - Home Lasix, transitioned to 80 mg IV Lasix twice daily on admission. - Dry weight reported 159 pounds. - RHC on 08/15 showed following:increased pulmonary capillary wedge pressure cardiology recommended increased diuresis On 08/16, Cr was up significantly. Lasix held. Suggested pericardial effusion, Pericardiocentesis on 08/17 with ~350 mL bloody drainage. Sent for culture, cell count, cytology. Ddx for bloody pericardial fluid is generally iatrogenic (from cath procedure; this is unlikely), malignancy (26%), complications of arthrosclerotic disease (11%), and idiopathic (10%). (PMID:[id number]) - Discussed with cardiology on 08/18; unclear why cardiac output and renal perfusion is so low. At this point, lasix held, (3) Metabolic acidosis: Plan: secondary to renal failure plans underway for Dialysis continue bicarbonate per nephrology (4) Hyponatremia: Plan: continue to monitor (5) Aortic stenosis: Plan: moderate to severe also concerns with mitral valve disease stenosis (6) Diabetes mellitus type 2 with complications: Plan: Outpatient hemoglobin A1c's have been low 4.7%6.6% over the last 2 years. - Hold oral agents, cover with SSI w/out carb coverage. - BSs have been 130 - 170. (7) CAD (coronary artery disease): Plan: Chronic, stable. - Continue statin, antihypertensives, Plavix. - Troponin very minimally elevated lower than troponin from prior ED visit. Likely mildly elevated in setting of MICHAEL/CKD. (8) History of CVA (cerebrovascular accident): Plan: Had Plavix held on last admission due to GI bleed.- Continue to hold Plavix. (9) Hypertension: Plan: BP stable today - Continue amlodipine - Hold losartan for now due to MICHAEL. (10) Hypothyroidism: Plan: - Continue levothyroxine. (11) Restless legs: Plan: - Continue ropinirole. (12) History of GI bleed: Plan: - Hospitalized earlier this month requiring 2 units of transfusion. EGD deferred at that time due to elevated troponin. Was thought it may be due to AVMs, she has increased risk for this due to her aortic stenosis. - Continue Protonix twice daily. - Hgb appears stable, continue to trend on a.m. labs. Plan: - SCDs for DVT PPx. Admission and Anticipated Discharge Date Admission Date: August 14, 2021 Subjective patient seen and examined, sitting up in the chair, no new complaints Review of Systems Review of Systems: All systems reviewed are negative, apart from the ones contained in the history. Physical Exam Physical Exam: The patient is awake, alert and oriented 3, well developed and well nourished, normocephalic and atraumatic, lying in bed and in no acute distress. HEENT--PERRL, EOMI, mucous membranes and oropharynx mildly dry Neck--supple. No JVD. No bruits. Thyroid normal, trachea midline, no adenopathy. Heart--normal S1 and S2. No murmurs, rubs or gallops. Lungs--clear bilaterally, no respiratory distress, no accessory muscle use. Abdomen--normal bowel sounds and soft. Mild epigastric and left sided abdominal pain Extremities--no cyanosis or clubbing. No edema. Dermatologic--normal skin turgor, normal color, no abnormal lymph nodes, no rash. Neurologic--cranial nerves II through XII grossly intact. Rheumatologic--normal range of motion. Psychiatric--normal affect. Results & Data Results & Data ([facility]) Vital Signs (Past 12 Hours) Vital Signs Temp Pulse Resp BP Pulse Ox 08/22/21 11:09 97.9 F 52 L 19 124/53 L 97 08/22/21 07:20 97.7 F 64 20 118/46 L 95 08/22/21 03:23 97.7 F 62 18 129/47 L 96 PG Care Time/CCT Total # of Minutes Spent Total Time Spent with Patient: Total time spent is greater than 50% in coordination of care (as documented) at patient's floor/unit and/or counseling patient: Coding Level of Care Code 53001 Subseq Hosp Care Lvl 2 Diagnoses Acute kidney injury superimposed on chronic kidney disease N17.9; N18.9 (HFpEF) heart failure with preserved ejection fraction I50.30 Hyponatremia E87.1 Aortic stenosis I35.0 Diabetes mellitus type 2 with complications E11.8 CAD (coronary artery disease) I25.10 History of CVA (cerebrovascular accident) Z86.73 Hypertension I10 Hypothyroidism E03.9 Restless legs G25.81 History of GI bleed Z87.19 Metabolic acidosis E87.2 Time Spent (min) 35
[2021-08-22] MEDS: rOPINIRole HCL 1 MG TABLET PO SCH (20:18)
[2021-08-22] MEDS: ATORVASTATIN 10 MG TAB PO SCH (20:20)
[2021-08-22] MEDS: cefUROXime axetil 250 MG TABLET PO SCH (20:21)
[2021-08-22] MEDS: ACETAMINOPHEN 325 MG TAB PO PRN (23:54)
[2021-08-23] MEDS: LEVOTHYROXINE SODIUM 112 MCG TABLET PO SCH (06:24)
[2021-08-23] MEDS: ONDANSETRON INJ 2 MG/ML 2 ML VIAL IV PRN (06:26)
[2021-08-23 06:44] LABS: Hematocrit (blood only) 24.6 % (37-47); Hemoglobin 8.4 g/dL (12.0-16.0); Mean Corpuscular Hemoglobin 30.3 pg (25-34); Mean Corpuscular Hgb Conc 34.1 g/dL (32-36); Mean Corpuscular Volume 88.8 fL (80-100); Mean Platelet Volume 10.1 fL (7.4-10.4); Platelet Count 213 K/uL (130-400); Red Blood Count 2.77 M/uL (4.2-5.4); White Blood Count 7.32 K/uL (4.8-10.8)
[2021-08-23 07:20] LABS: BUN Creatinine Ratio 34.1 (10-20); Calcium 6.7 mg/dl (8.5-10.1); Creatinine Clr Calc Pharmacy 9.8 ml/min; Est GFR (African American) 9.8 ml/min; Est GFR (Non-African American) 8.4 ml/min; Potassium 4.8 mmol/L (3.5-5.1)
[2021-08-23] MEDS: INSULIN ASPART PER UNIT SC SCH ×4 (08:12→20:34)
--- NOTE | 2021-08-23 08:34 | Nephrology Progress Note ---
Date of Service August 23, 2021 Assessment & Plan (1) Acute kidney injury superimposed on chronic kidney disease: Plan: * MICHAEL on CKD likely related to valvular heart disease, elevated right heart pressure, renal vascular disease with atrophic R kidney and documented ZBIGNIEW involving the L kidney * Renal angiogram will likely result in ESKD * Pericardial effusion has been drained with little hemodynamic improvement. Pericardial cultures and cytology are negative * Although nonoliguric, Cr has risen to 4.5 patient has progressive azotemia and now c/o nausea * Plan for IJ TCC this am followed by 1st HD treatment * Stop NaHCO3 * Case Management has been consulted to set up outpatient HD at [facility] (2) Hyponatremia: Plan: * Chronic/stable hyponatremia * Continue free water restriction to <1.5 L daily (3) Anemia: Plan: * 1g IV Venofer completed 08/21 * Will provide DERRICK w/ HD (4) Pericardial effusion: Plan: * Blood cultures and cytology negative * No pericardial friction rub on PE today Admission and Anticipated Discharge Date Admission Date: August 14, 2021 Subjective Ms. Ray was evaluated in her hospital room this morning. She was oriented to self, place and month but remains nauseated. Ms. Ray is agreeable to IJ TCC and initiation of HD today Review of Systems Constitutional: + weakness; no fever Eyes: no problem reported Ear, Nose, Mouth, Throat: no problem reported Respiratory: no cough and no dyspnea Cardiovascular: no chest pain, no palpitations and no edema Gastrointestinal: no abdominal pain, no nausea, no vomiting and no diarrhea/loose stools Musculoskeletal: no back pain Integumentary: no rash Neurologic: no confusion Physical Exam Constitutional: + frail appearing; not in distress Eyes: PERRL, conjunctivae normal, anicteric sclerae ENMT: external ear and nose normal, oropharynx normal Neck: trachea midline, no thyromegaly Respiratory: normal respiratory effort, lungs clear to auscultation Cardiovascular: Rate/Rhythm: regular rate and regular rhythm Heart Sounds: + murmur (harsh systolic murmur from apex to RUSB) Gastrointestinal (Abdomen): normal bowel sounds, soft, nontender, no hepatosplenomegaly Musculoskeletal: Extremities: no cyanosis Skin: no rashes, warm and dry Neurologic: awake; not confused Results & Data ([facility]) Vital Signs (Past 12 Hours) Vital Signs Temp Pulse Pulse Resp BP Pulse Ox 08/23/21 07:33 36.6 C 69 18 123/53 L 96 08/23/21 03:42 36.7 C 76 20 140/52 L 96 08/22/21 22:59 36.5 C 69 18 124/54 L 96 08/22/21 22:20 65 Laboratory Results Laboratory Tests 08/18/21 08/23/21 08/23/21 04:56 06:13 06:13 WBC 7.32 Hgb 8.4 L Hct 24.6 L Plt Count 213 Sodium 126 L Potassium 4.8 Chloride 93 L Carbon Dioxide 20 L BUN 154 H Creatinine 4.51 H* Glucose 102 H Calcium 6.7 L Albumin 2.9 L PG Care Time/CCT Total # of Minutes Spent Total Time Spent with Patient: Total time spent is greater than 50% in coordination of care (as documented) at patient's floor/unit and/or counseling patient: Coding Level of Care Code 17848 Subseq Hosp Care Lvl 3 Diagnoses Acute kidney injury superimposed on chronic kidney disease N17.9; N18.9 Hyponatremia E87.1 Anemia D64.9 Pericardial effusion I31.3
[2021-08-23] MEDS: SODIUM BICARBONATE 650 MG TAB PO SCH (09:09)
[2021-08-23] MEDS: DOXAZosin MESYLATE TAB 2 MG TAB PO SCH (09:09)
[2021-08-23] MEDS: CALCIUM 600MG + VIT D 400 IU TAB PO SCH (09:09)
[2021-08-23] MEDS: SERTRALINE HCL 50 MG TABLET PO SCH (09:09)
[2021-08-23] MEDS: DOCUSATE SODIUM 100 MG CAP PO SCH (09:09)
[2021-08-23] MEDS: TAMSULOSIN HCL 0.4 MG CAP PO SCH (09:09)
[2021-08-23] MEDS: PANTOprazole 40 MG TAB PO SCH ×2 (09:09→20:12)
[2021-08-23] MEDS: BETHANECHOL CHL 25 MG TAB PO SCH ×2 (09:10→20:11)
[2021-08-23] MEDS: HEPARIN SOD 5,000 UNIT/0.5 ML VIAL SQ SCH ×2 (09:10→20:11)
[2021-08-23] MEDS: IRON SUCROSE 200 MG in 0.9 % SODIUM CHLORIDE 100 ML IV SCH (09:14)
[2021-08-23] MEDS ORDERED: SODIUM CHLORIDE 0.9% 1000ML 1,000 ML IV PRN (09:47)
[2021-08-23] MEDS ORDERED: EPOETIN ALFA 10,000 UNITS/ML VIAL IV ONE (10:15)
[2021-08-23] MEDS ORDERED: METOCLOPRAMIDE HCL INJ 5 MG/ML 2 ML VIAL IV ONE (10:31)
[2021-08-23] MEDS ORDERED: ceFAZolin 1000MG 1,000 MG/7.5 ML SYR IV ONE (11:00)
[2021-08-23] MEDS: rOPINIRole HCL 0.25 MG TABLET PO SCH (13:06)
--- NOTE | 2021-08-23 14:55 | Hospitalist Progress Note ---
Date of Service August 23, 2021 Assessment & Plan (1) Acute kidney injury superimposed on chronic kidney disease: Plan: Advanced kidney dysfunction with renal vascular disease with atrophic right kidney, according to nephrology renal angiogram will likely result in end-stage kidney disease Complains of intractable nausea this morning Will obtain temporary catheter, plans for HD soon after appreciate nephrology recs (2) (HFpEF) heart failure with preserved ejection fraction: Plan: patient apperas currently compensated - Home Lasix, transitioned to 80 mg IV Lasix twice daily on admission. - Dry weight reported 159 pounds. - RHC on 08/15 showed following:increased pulmonary capillary wedge pressure cardiology recommended increased diuresis On 08/16, Cr was up significantly. Lasix held. Suggested pericardial effusion, Pericardiocentesis on 08/17 with ~350 mL bloody drainage. Sent for culture, cell count, cytology. Ddx for bloody pericardial fluid is generally iatrogenic (from cath procedure; this is unlikely), malignancy (26%), complications of arthrosclerotic disease (11%), and idiopathic (10%). (PMID:[id number]) - Discussed with cardiology on 08/18; unclear why cardiac output and renal perfusion is so low. At this point, lasix held, (3) Metabolic acidosis: Plan: secondary to renal failure plans underway for Dialysis continue bicarbonate per nephrology (4) Hyponatremia: Plan: continue to monitor (5) Aortic stenosis: Plan: moderate to severe also concerns with mitral valve disease stenosis (6) Diabetes mellitus type 2 with complications: Plan: Outpatient hemoglobin A1c's have been low 4.7%6.6% over the last 2 years. - Hold oral agents, cover with SSI w/out carb coverage. - BSs have been 130 - 170. (7) CAD (coronary artery disease): Plan: Chronic, stable. - Continue statin, antihypertensives, Plavix. - Troponin very minimally elevated lower than troponin from prior ED visit. Likely mildly elevated in setting of MICHAEL/CKD. (8) History of CVA (cerebrovascular accident): Plan: Had Plavix held on last admission due to GI bleed.- Continue to hold Plavix. (9) Hypertension: Plan: BP stable today - Continue amlodipine - Hold losartan for now due to MICHAEL. (10) Hypothyroidism: Plan: - Continue levothyroxine. (11) Restless legs: Plan: - Continue ropinirole. (12) History of GI bleed: Plan: - Hospitalized earlier this month requiring 2 units of transfusion. EGD deferred at that time due to elevated troponin. Was thought it may be due to AVMs, she has increased risk for this due to her aortic stenosis. - Continue Protonix twice daily. - Hgb appears stable, continue to trend on a.m. labs. Plan: - SCDs for DVT PPx. Admission and Anticipated Discharge Date Admission Date: August 14, 2021 Subjective patient seen and examined, complains of intractable nausea Review of Systems Review of Systems: All systems reviewed are negative, apart from the ones contained in the history. Physical Exam Physical Exam: The patient is awake, alert and oriented 3, well developed and well nourished, normocephalic and atraumatic, lying in bed and in no acute distress. HEENT--PERRL, EOMI, mucous membranes and oropharynx mildly dry Neck--supple. No JVD. No bruits. Thyroid normal, trachea midline, no adenopathy. Heart--normal S1 and S2. No murmurs, rubs or gallops. Lungs--clear bilaterally, no respiratory distress, no accessory muscle use. Abdomen--normal bowel sounds and soft. Mild epigastric and left sided abdominal pain Extremities--no cyanosis or clubbing. No edema. Dermatologic--normal skin turgor, normal color, no abnormal lymph nodes, no rash. Neurologic--cranial nerves II through XII grossly intact. Rheumatologic--normal range of motion. Psychiatric--normal affect. Results & Data Results & Data ([facility]) Vital Signs (Past 12 Hours) Vital Signs Temp Pulse Pulse Resp BP Pulse Ox 08/23/21 12:14 98.1 F 65 18 161/51 H 95 08/23/21 07:33 97.9 F 69 18 123/53 L 96 08/23/21 07:15 63 08/23/21 03:42 98.1 F 76 20 140/52 L 96 PG Care Time/CCT Total # of Minutes Spent Total Time Spent with Patient: Total time spent is greater than 50% in coordination of care (as documented) at patient's floor/unit and/or counseling patient: Coding Level of Care Code 32866 Subseq Hosp Care Lvl 2 Diagnoses Acute kidney injury superimposed on chronic kidney disease N17.9; N18.9 (HFpEF) heart failure with preserved ejection fraction I50.30 Metabolic acidosis E87.2 Hyponatremia E87.1 Aortic stenosis I35.0 Diabetes mellitus type 2 with complications E11.8 CAD (coronary artery disease) I25.10 History of CVA (cerebrovascular accident) Z86.73 Hypertension I10 Hypothyroidism E03.9 Restless legs G25.81 History of GI bleed Z87.19 Time Spent (min) 35
[2021-08-23] MEDS ORDERED: HEPARIN SOD (PORCINE) 5,000 UNITS/ML VIAL ONE (15:16)
[2021-08-23] MEDS ORDERED: fentaNYL citrate 100 MCG/2 ML VIAL ONE (15:16)
[2021-08-23] MEDS ORDERED: MIDAZOLAM HCL 1 MG/ML 2ML VIAL ONE (15:17)
--- NOTE | 2021-08-23 15:40 | History & Physical Bridge Note ---
Date of Service August 23, 2021 History & Physical Bridge Note Patient for permcath insertion today. I have discussed the risks options and benefits of the procedure with the patient. The patient understands the risks options and benefits and agrees to the procedure. I have examined the patient, reviewed the History & Physical and in the interval since the performance of the History & Physical I have noted the following changes of clinical significance: no changes noted
--- NOTE | 2021-08-23 15:40 | Pre Anesthesia Assessment ---
Date of Service August 23, 2021 Pre Sedation Assessment Vital Signs Temp Pulse Pulse Resp BP Pulse Ox 08/23/21 15:28 36.8 C 62 18 157/51 H 96 08/23/21 15:12 61 08/23/21 12:14 36.7 C 65 18 161/51 H 95 08/23/21 07:33 36.6 C 69 18 123/53 L 96 08/23/21 07:15 63 08/23/21 03:42 36.7 C 76 20 140/52 L 96 08/22/21 22:59 36.5 C 69 18 124/54 L 96 08/22/21 22:20 65 08/22/21 19:57 36.5 C 78 18 141/50 H 95 08/22/21 15:43 36.4 C L 61 18 133/40 L 97 Cardiovascular RRR, no murmur, no edema Respiratory normal respiratory effort, lungs clear to auscultation Pre-Sedation Airway Assessment Smoking Status: Never smoker Hx Sleep Apnea: No Hx Difficult Intubation: No Short, Thick Neck: No Thyromental Distance: > or= 3.5 Finger Breadths Oral Cavity: + Dentures Mallampati Class: III ASA: ASA4 NPO Status Date of Last Intake of Fluids: 08/23/21 Time of Last Intake of Fluids: 00:00 Last Oral Intake of Fluids Comment: sips with meds Date of Last Intake of Solid Food: 08/23/21 Time of Last Intake of Solid Foods: 15:35 Procedure Planning Contraindications for Sedation: none Current Medications Reviewed: Yes Notes The planned sedation has been discussed with the patient. Informed Consent was obtained. I have identified the patient, determined the appropriateness of sedation and have assessed the patient immediately prior to the procedure. All medicine(s) and interventions are by my order.
[2021-08-23] MEDS ORDERED: LIDOCAINE 1% LOCAL 20 ML VIAL INJ ONE (16:25)
--- NOTE | 2021-08-23 16:36 | Post Operative Brief Note ---
Immediate Post Op Note v1 Date of Surgery August 23, 2021 Pre & Post Diagnosis Operation Date: 08/15/21 15:00 <No data on this case meets the specified criteria> Operation Date: 08/17/21 08:30 <No data on this case meets the specified criteria> Operation Date: 08/19/21 08:30 <No data on this case meets the specified criteria> Operation Date: 08/23/21 13:30 Pre-Op Diagnosis: Acute On Chronic Renal Failure Post-Op Diagnosis: Acute On Chronic Renal Failure I identified the patient and participated in the time-out.: Yes Procedure Operation Date: 08/15/21 15:00 Actual Procedures p Right Heart Cath Only - Ronald Moura MD Operation Date: 08/17/21 08:30 Actual Procedures p Pericardiocentesis Initial - Ronald Moura MD Operation Date: 08/19/21 08:30 <No data on this case meets the specified criteria> Operation Date: 08/23/21 13:30 Actual Procedures p Insertion of Perm Catheter, Right Internal Jugular Approach, Ultrasound Localization of Right Internal Jugular Vein, Fluoroscopy for Positioning, Moderate Sedation [id number](Right) - Ariel Murray MD Surgeon Ariel Murray MD Nursery Laborer MD Logan Estimated Blood Loss 10 Findings Consistent with Post-Op Diagnosis Drains Johnson Catheter Anesthesia Type RN Sedation Complications none Disposition Accompanied Patient To Recovery: No Disposition: Recovery Room
--- NOTE | 2021-08-23 16:36 | Procedure Note ---
Angiogram Post Procedure Fluoroscopy Time (minutes): 0.6 Radiation (mGy): 5 Post Operative Report Pre & Post Diagnosis Operation Date: 08/15/21 15:00 <No data on this case meets the specified criteria> Operation Date: 08/17/21 08:30 <No data on this case meets the specified criteria> Operation Date: 08/19/21 08:30 <No data on this case meets the specified criteria> Operation Date: 08/23/21 13:30 Pre-Op Diagnosis: Acute On Chronic Renal Failure Post-Op Diagnosis: Acute On Chronic Renal Failure I identified the patient and participated in the time-out.: Yes Procedure Operation Date: 08/15/21 15:00 Actual Procedures p Right Heart Cath Only - Ronald Moura MD Operation Date: 08/17/21 08:30 Actual Procedures p Pericardiocentesis Initial - Ronald Moura MD Operation Date: 08/19/21 08:30 <No data on this case meets the specified criteria> Operation Date: 08/23/21 13:30 Actual Procedures p Insertion of Perm Catheter, Right Internal Jugular Approach, Ultrasound Localization of Right Internal Jugular Vein, Fluoroscopy for Positioning, Moderate Sedation 1611-(Right) - Ariel Murray MD Surgeon Ariel Murray MD Business Information Consultant Shira Magallanes MD ; Shanon Ayala (MS1) Estimated Blood Loss 10 Findings Consistent with Post-Op Diagnosis see operative report Specimens none Anesthesia Type RN Sedation Complications none immediate Indications This is an 81 year old female with acute on chronic renal failure. She is in need of hemodialysis access. She presents for perm cath placement. Description of Procedure Patient was taken to the angio suite and placed in the supine position. The right side of the neck and chest wall were prepped and draped in a sterile manner. A team timeout was performed. Local anesthesia was then administered to the appropriate areas of the neck and chest wall. Ultrasound was then used to locate the right internal jugular vein. The vein compressed easily, had no filing defects, and was patent. The vein was then punctured under direct ultrasound imaging. A guidewire was then passed centrally under fluoroscopic imaging. A stab wound was then made in the anterior chest wall and a 19 cm permcath was passed from the stab wound on the chest wall to the puncture site on the neck. The puncture site was then dilated till the 14Fr peel away sheath was inserted. The permcath was then inserted through the sheath to a central position in the distal superior vena cava. The peel away sheath was then removed. The catheter was then sutured in place using nylon sutures. The punct ure was then closed using a 4-0 Vicryl subcuticular suture. Dermabond was used for a dressing on the puncture site. Both ports aspirated and flushed easily and were then packed with heparin. A sterile dressing was applied to the catheter. The patient left the angio suite in good condition and tolerated the procedure well. Dr. Murray remained present and scrubbed for the duration of the procedure. I attest to the content of the Intraoperative Record and any orders documented therein. Any exceptions are noted below.
--- NOTE | 2021-08-23 16:37 | Post Anesthesia Assessment ---
Date of Service August 23, 2021 Post Sedation Assessment Vital Signs Temp Pulse Pulse Resp BP BP Pulse Ox 08/23/21 16:34 63 18 117/53 L 100 08/23/21 16:30 63 18 117/53 L 100 08/23/21 16:25 67 18 144/54 H 100 08/23/21 16:20 66 18 149/55 H 100 08/23/21 16:15 67 18 157/53 H 100 08/23/21 16:10 68 18 153/65 H 100 08/23/21 15:28 36.8 C 62 18 157/51 H 96 08/23/21 15:12 61 08/23/21 12:14 36.7 C 65 18 161/51 H 95 08/23/21 07:33 36.6 C 69 18 123/53 L 96 08/23/21 07:15 63 08/23/21 03:42 36.7 C 76 20 140/52 L 96 08/22/21 22:59 36.5 C 69 18 124/54 L 96 08/22/21 22:20 65 08/22/21 19:57 36.5 C 78 18 141/50 H 95 Recovery Score Activity: Moves 4 extremities Respiration: Deep Breath/Cough Circulation: +/-20% PreAnes Value Consciousness: Fully Awake Oxygen Saturation: O2 needed for >90% Post Anesthesia Score: 9 Discharge Sedation Level of Care: Fast Track Phase II Post Sedation Plan On clinical assessment, the patient appears to have tolerated the sedation without complications. Patient is recovering as anticipated. Patient will continue to be monitored by nursing and may be discharged when sedation discharge criteria are met per below protocol. Upon Completions of procedure up to 15 minutes continue every 5 minute vital signs and the P.A.R. score; then discharge to a Phase I or Fast Track to Phase II per the following guidelines: * Discharge Patient to appropriate Phase II area if PAR is 8 or greater or return to pre- procedure baseline. The post - procedure orders will be as directed. * If PAR score is less than 8 or not return to pre-procedure baseline then patient will follow Phase I monitoring till PAR is reached for Phase II. The Phase I may be done in procedure room or may call to secure a Phase I area. * If naloxone or flumazenil are used for reversal, hold in Phase I for continued monitoring from when last reversal dose was given for a minimum of 60 minutes or longer pending the nurse and/or physician discretion of patient condition before discharge to Phase II. Please call the Sedation Physician to re-evaluate and complete post-note for discharge to Phase II area. Do NOT discharge from procedure sedation or Phase 1 until post- sedation evaluation note is complete by procedure /sedation MD Sedation Discharge Instructions to be given to the patient at discharge to home.
[2021-08-23] MEDS ORDERED: cefUROXime axetil 250 MG TABLET PO ONE (17:00)
[2021-08-23] MEDS: ATORVASTATIN 10 MG TAB PO SCH (20:11)
[2021-08-23] MEDS: rOPINIRole HCL 1 MG TABLET PO SCH (20:15)
[2021-08-23] MEDS: traMADol HCL 50 MG TABLET PO PRN (23:59)
[2021-08-24] MEDS: LEVOTHYROXINE SODIUM 112 MCG TABLET PO SCH (05:36)
[2021-08-24] MEDS ORDERED: SODIUM CHLORIDE 0.9% 1000ML 1,000 ML IV PRN (07:00)
[2021-08-24] MEDS: SERTRALINE HCL 50 MG TABLET PO SCH (07:19)
[2021-08-24] MEDS: DOXAZosin MESYLATE TAB 2 MG TAB PO SCH (07:19)
[2021-08-24] MEDS: PANTOprazole 40 MG TAB PO SCH ×2 (07:19→22:22)
[2021-08-24] MEDS: BETHANECHOL CHL 25 MG TAB PO SCH ×2 (07:20→22:20)
[2021-08-24] MEDS: TAMSULOSIN HCL 0.4 MG CAP PO SCH (07:20)
[2021-08-24] MEDS: DOCUSATE SODIUM 100 MG CAP PO SCH (07:20)
[2021-08-24] MEDS: CALCIUM 600MG + VIT D 400 IU TAB PO SCH (07:21)
[2021-08-24] MEDS: HEPARIN SOD 5,000 UNIT/0.5 ML VIAL SQ SCH ×2 (07:22→22:21)
[2021-08-24 08:08] LABS: BUN Creatinine Ratio 30.8 (10-20); Calcium 6.9 mg/dl (8.5-10.1); Creatinine Clr Calc Pharmacy 10.1 ml/min; Est GFR (African American) 11.9 ml/min; Est GFR (Non-African American) 10.3 ml/min; Potassium 4.5 mmol/L (3.5-5.1)
[2021-08-24] MEDS: INSULIN ASPART PER UNIT SC SCH ×4 (08:51→22:18)
--- NOTE | 2021-08-24 09:00 | Nephrology Progress Note ---
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 1st HD treatment 08/23/21 via R IJ TCC * 2nd heparin free HD treatment scheduled for today. Plan 3rd treatment in am * HD staff technologist to change IJ TCC dressing * Case Management has been consulted to set up outpatient HD at [facility]. Note that due to patient's advanced age and frailty she will likely require transportation to and from outpatient dialysis and assistance w/ ADL's at home (2) Hyponatremia: Plan: * Chronic/stable hyponatremia * Continue free water restriction to <1.5 L daily (3) Anemia: Plan: * 1g IV Venofer completed 08/21 * DERRICK is being provided w/ HD (4) Pericardial effusion: Plan: * Blood cultures and cytology negative * No pericardial friction rub on physical exam Admission and Anticipated Discharge Date Admission Date: August 14, 2021 Subjective Ms. Ray was evaluated in her hospital room this morning. She was oriented to self, place and month. Nausea has improved. She tolerated her 1st HD treatment yesterday without complication. Review of Systems Constitutional: + weakness; no fever Eyes: no problem reported Ear, Nose, Mouth, Throat: no problem reported Respiratory: no cough and no dyspnea Cardiovascular: no chest pain, no palpitations and no edema Gastrointestinal: no abdominal pain, no nausea, no vomiting and no diarrhea/loose stools Musculoskeletal: no back pain Integumentary: no rash Neurologic: no confusion Physical Exam Constitutional: + frail appearing; not in distress Eyes: PERRL, conjunctivae normal, anicteric sclerae ENMT: external ear and nose normal, oropharynx normal Neck: trachea midline, no thyromegaly R IJ TCC w/ blood soaked dressing Respiratory: normal respiratory effort, lungs clear to auscultation Cardiovascular: Rate/Rhythm: regular rate and regular rhythm Heart Sounds: + murmur (harsh systolic murmur from apex to RUSB) Gastrointestinal (Abdomen): normal bowel sounds, soft, nontender, no hepatosplenomegaly Musculoskeletal: Extremities: no cyanosis Skin: no rashes, warm and dry Neurologic: awake; not confused Results & Data ([facility]) Vital Signs (Past 12 Hours) Vital Signs Temp Pulse Pulse Pulse Resp BP Pulse Ox 08/24/21 07:10 61 08/24/21 07:05 36.3 C L 60 18 132/54 L 94 08/24/21 02:46 36.3 C L 63 18 120/52 L 94 08/23/21 22:50 36.4 C L 62 18 129/60 95 08/23/21 22:01 36.9 C 87 16 107/67 90 08/23/21 21:29 62 08/23/21 21:25 36.4 C L 65 18 136/73 97 Laboratory Results Laboratory Tests 08/18/21 08/24/21 04:56 06:53 Sodium 132 L Potassium 4.5 Chloride 97 L Carbon Dioxide 22 BUN 118 H D Creatinine 3.83 H D Glucose 94 Calcium 6.9 L Albumin 2.9 L PG Care Time/CCT Total # of Minutes Spent Total Time Spent with Patient: Total time spent is greater than 50% in coordination of care (as documented) at patient's floor/unit and/or counseling patient: Coding Level of Care Code 44158 Subseq Hosp Care Lvl 3 Diagnoses Hyponatremia E87.1 Anemia D64.9 Pericardial effusion I31.3 ESRD (end stage renal disease) N18.6
[2021-08-24] MEDS: rOPINIRole HCL 0.25 MG TABLET PO SCH (13:24)
--- NOTE | 2021-08-24 13:40 | Hospitalist Progress Note ---
Date of Service August 24, 2021 Assessment & Plan (1) Acute kidney injury superimposed on chronic kidney disease: Plan: Advanced kidney dysfunction with renal vascular disease with atrophic right kidney, according to nephrology renal angiogram will likely result in end-stage kidney disease Improving renal function after 2 sessions of HD, next session is planned tomorrow morning Will continue outpatient HD Case mgt on consult to help set up HD chair at [place] (2) (HFpEF) heart failure with preserved ejection fraction: Plan: patient appears currently compensated Monitor i/o, daily weights (3) Metabolic acidosis: Plan: secondary to renal failure Resolving following HD (4) Hyponatremia: Plan: continue to monitor (5) Aortic stenosis: Plan: moderate to severe also concerns with mitral valve disease stenosis (6) Diabetes mellitus type 2 with complications: Plan: Outpatient hemoglobin A1c's have been low 4.7%6.6% over the last 2 years. - Hold oral agents, cover with SSI w/out carb coverage. - BSs have been 130 - 170. (7) CAD (coronary artery disease): Plan: Chronic, stable. - Continue statin, antihypertensives, Plavix. - Troponin very minimally elevated lower than troponin from prior ED visit. Likely mildly elevated in setting of MICHAEL/CKD. (8) History of CVA (cerebrovascular accident): Plan: Had Plavix held on last admission due to GI bleed.- Continue to hold Plavix. (9) Hypertension: Plan: BP stable today - Continue amlodipine - Hold losartan for now due to MICHAEL. (10) Hypothyroidism: Plan: - Continue levothyroxine. (11) Restless legs: Plan: - Continue ropinirole. (12) History of GI bleed: Plan: - Hospitalized earlier this month requiring 2 units of transfusion. EGD deferred at that time due to elevated troponin. Was thought it may be due to AVMs, she has increased risk for this due to her aortic stenosis. - Continue Protonix twice daily. - Hgb appears stable, continue to trend on a.m. labs. Plan: disabilities services officer to arrange outpatient HD chair at [place] Admission and Anticipated Discharge Date Admission Date: August 14, 2021 Subjective patient seen and examined, nausea has improved, has done 2 sessions of HD so far Review of Systems Review of Systems: All systems reviewed are negative, apart from the ones contained in the history. Physical Exam Physical Exam: The patient is awake, alert and oriented 3, well developed and well nourished, normocephalic and atraumatic, lying in bed and in no acute distress. HEENT--PERRL, EOMI, mucous membranes and oropharynx mildly dry Neck--supple. No JVD. No bruits. Thyroid normal, trachea midline, no adenopathy. Heart--normal S1 and S2. No murmurs, rubs or gallops. Lungs--clear bilaterally, no respiratory distress, no accessory muscle use. Abdomen--normal bowel sounds and soft. Mild epigastric and left sided abdominal pain Extremities--no cyanosis or clubbing. No edema. Dermatologic--normal skin turgor, normal color, no abnormal lymph nodes, no rash. Neurologic--cranial nerves II through XII grossly intact. Rheumatologic--normal range of motion. Psychiatric--normal affect. Results & Data Results & Data ([facility]) Vital Signs (Past 12 Hours) Vital Signs Temp Pulse Pulse Pulse Resp BP BP 08/24/21 11:55 98.2 F 67 08/24/21 11:30 58 L 131/56 L 08/24/21 11:00 57 L 126/46 L 08/24/21 10:30 63 128/46 L 08/24/21 10:00 60 123/44 L 08/24/21 09:30 56 L 115/38 L 08/24/21 09:12 98.2 F 68 08/24/21 07:10 61 08/24/21 07:05 97.3 F L 60 18 132/54 L 08/24/21 02:46 97.3 F L 63 18 120/52 L BP Pulse Ox 08/24/21 11:55 142/55 H 08/24/21 11:30 08/24/21 11:00 08/24/21 10:30 08/24/21 10:00 08/24/21 09:30 08/24/21 09:12 08/24/21 07:10 08/24/21 07:05 94 08/24/21 02:46 94 PG Care Time/CCT Total # of Minutes Spent Total Time Spent with Patient: Total time spent is greater than 50% in coordination of care (as documented) at patient's floor/unit and/or counseling patient: Coding Level of Care Code 81241 Subseq Hosp Care Lvl 2 Diagnoses Acute kidney injury superimposed on chronic kidney disease N17.9; N18.9 (HFpEF) heart failure with preserved ejection fraction I50.30 Metabolic acidosis E87.2 Hyponatremia E87.1 Aortic stenosis I35.0 Diabetes mellitus type 2 with complications E11.8 CAD (coronary artery disease) I25.10 History of CVA (cerebrovascular accident) Z86.73 Hypertension I10 Hypothyroidism E03.9 Restless legs G25.81 History of GI bleed Z87.19 Time Spent (min) 35
[2021-08-24] MEDS: ATORVASTATIN 10 MG TAB PO SCH (22:20)
[2021-08-24] MEDS: rOPINIRole HCL 1 MG TABLET PO SCH (22:22)
[2021-08-24] MEDS: ACETAMINOPHEN 325 MG TAB PO PRN (22:33)
[2021-08-25] MEDS: LEVOTHYROXINE SODIUM 112 MCG TABLET PO SCH (06:10)
[2021-08-25] MEDS ORDERED: SODIUM CHLORIDE 0.9% 1000ML 1,000 ML IV PRN (07:00)
[2021-08-25] MEDS ORDERED: EPOETIN ALFA 10,000 UNITS/ML VIAL IV SCH (07:00)
--- NOTE | 2021-08-25 08:38 | Nephrology Progress Note ---
Date of Service August 25, 2021 Assessment & Plan (1) ESRD (end stage renal disease): Plan: * ESKD related to valvular heart disease, elevated right heart pressure, renal vascular disease with atrophic R kidney and documented ZBIGNIEW involving the L kidney. 1st HD treatment 08/23/21 via R IJ TCC * 3rd heparin free HD treatment scheduled for today * HD field staff manager to change IJ TCC dressing * Case Management has been consulted to set up outpatient HD at [facility]. Note that due to patient's advanced age and frailty she will likely require transportation to and from outpatient dialysis and assistance w/ ADL's at home (2) Hyponatremia: Plan: * Chronic/stable hyponatremia correcting w/ HD * Continue free water restriction to <1.5 L daily (3) Anemia: Plan: * 1g IV Venofer completed 08/21 * DERRICK is being provided w/ HD (4) Pericardial effusion: Plan: * Blood cultures and cytology negative * No pericardial friction rub on physical exam Admission and Anticipated Discharge Date Admission Date: August 14, 2021 Subjective Ms. Ray was evaluated in her hospital room this morning. She was oriented to self, place and month. She remains nauseated. She tolerated her 2nd HD treatment yesterday without complication. Review of Systems Constitutional: + weakness; no fever Eyes: no problem reported Ear, Nose, Mouth, Throat: no problem reported Respiratory: no cough and no dyspnea Cardiovascular: no chest pain, no palpitations and no edema Gastrointestinal: no abdominal pain, no nausea, no vomiting and no diarrhe a/loose stools Musculoskeletal: no back pain Integumentary: no rash Neurologic: no confusion Physical Exam Constitutional: + frail appearing; not in distress Eyes: PERRL, conjunctivae normal, anicteric sclerae ENMT: external ear and nose normal, oropharynx normal Neck: trachea midline, no thyromegaly Respiratory: normal respiratory effort, lungs clear to auscultation Cardiovascular: Rate/Rhythm: regular rate and regular rhythm Heart Sounds: + murmur (harsh systolic murmur from apex to RUSB) Gastrointestinal (Abdomen): normal bowel sounds, soft, nontender, no hepatosplenomegaly Musculoskeletal: Extremities: no cyanosis Skin: no rashes, warm and dry Neurologic: awake; not confused Results & Data ([facility]) Vital Signs (Past 12 Hours) Vital Signs Temp Pulse Pulse Resp BP Pulse Ox 08/25/21 06:35 36.9 C 51 L 14 115/58 L 95 08/25/21 02:51 36.4 C L 56 L 16 124/66 96 08/24/21 23:43 61 08/24/21 22:59 36.9 C 59 L 18 123/57 L 96 Laboratory Results Laboratory Tests 08/25/21 08/25/21 07:55 07:55 WBC 7.21 Hgb 8.8 L Hct 26.9 L Plt Count 178 Sodium 134 L Potassium 4.3 Chloride 101 Carbon Dioxide 24 BUN 83 H D Creatinine 3.02 H D Glucose 108 H PG Care Time/CCT Total # of Minutes Spent Total Time Spent with Patient: Total time spent is greater than 50% in coordination of care (as documented) at patient's floor/unit and/or counseling patient: Coding Level of Care Code 79513 Subseq Hosp Care Lvl 3 Diagnoses ESRD (end stage renal disease) N18.6 Hyponatremia E87.1 Anemia D64.9 Pericardial effusion I31.3
[2021-08-25 08:40] LABS: Hematocrit (blood only) 26.9 % (37-47); Hemoglobin 8.8 g/dL (12.0-16.0); Mean Corpuscular Hemoglobin 29.9 pg (25-34); Mean Corpuscular Hgb Conc 32.7 g/dL (32-36); Mean Corpuscular Volume 91.5 fL (80-100); Platelet Count 178 K/uL (130-400); RDW Coefficient of Variation 14.8 % (11.5-14.5); RDW Standard Deviation 49.2 fL (36.4-46.3); Red Blood Count 2.94 M/uL (4.2-5.4); White Blood Count 7.21 K/uL (4.8-10.8)
[2021-08-25] MEDS: SERTRALINE HCL 50 MG TABLET PO SCH (08:43)
[2021-08-25] MEDS: TAMSULOSIN HCL 0.4 MG CAP PO SCH (08:43)
[2021-08-25] MEDS: CALCIUM 600MG + VIT D 400 IU TAB PO SCH (08:44)
[2021-08-25] MEDS: DOXAZosin MESYLATE TAB 2 MG TAB PO SCH (08:44)
[2021-08-25] MEDS: PANTOprazole 40 MG TAB PO SCH ×2 (08:44→23:03)
[2021-08-25] MEDS: BETHANECHOL CHL 25 MG TAB PO SCH ×2 (08:45→23:04)
[2021-08-25] MEDS: DOCUSATE SODIUM 100 MG CAP PO SCH (08:45)
[2021-08-25] MEDS: HEPARIN SOD 5,000 UNIT/0.5 ML VIAL SQ SCH ×2 (08:46→23:06)
[2021-08-25 09:05] LABS: BUN Creatinine Ratio 27.5 (10-20); Creatinine Clr Calc Pharmacy 12.7 ml/min; Est GFR (African American) 15.9 ml/min; Est GFR (Non-African American) 13.7 ml/min; Potassium 4.3 mmol/L (3.5-5.1)
[2021-08-25] MEDS: INSULIN ASPART PER UNIT SC SCH ×4 (09:47→23:05)
--- NOTE | 2021-08-25 13:55 | Hospitalist Progress Note ---
Date of Service August 25, 2021 Assessment & Plan (1) ESRD (end stage renal disease): Plan: Advanced kidney dysfunction with renal vascular disease with atrophic right kidney, according to nephrology renal angiogram will likely result in end-stage kidney disease Improving renal function after 2 sessions of HD, next session is planned tomorrow morning Will continue outpatient HD Case mgt on consult to help set up HD chair at [place] (2) (HFpEF) heart failure with preserved ejection fraction: Plan: patient appears currently compensated Monitor i/o, daily weights (3) Metabolic acidosis: Plan: secondary to renal failure Resolving following HD (4) Hyponatremia: Plan: continue to monitor (5) Aortic stenosis: Plan: moderate to severe also concerns with mitral valve disease stenosis (6) Diabetes mellitus type 2 with complications: Plan: Outpatient hemoglobin A1c's have been low 4.7%6.6% over the last 2 years. - Hold oral agents, cover with SSI w/out carb coverage. - BSs have been 130 - 170. (7) CAD (coronary artery disease): Plan: Chronic, stable. - Continue statin, antihypertensives, Plavix. - Troponin very minimally elevated lower than troponin from prior ED visit. Likely mildly elevated in setting of MICHAEL/CKD. (8) History of CVA (cerebrovascular accident): Plan: Had Plavix held on last admission due to GI bleed.- Continue to hold Plavix. (9) Hypertension: Plan: BP stable today - Continue amlodipine - Hold losartan for now due to MICHAEL. (10) Hypothyroidism: Plan: - Continue levothyroxine. (11) Restless legs: Plan: - Continue ropinirole. (12) History of GI bleed: Plan: - Hospitalized earlier this month requiring 2 units of transfusion. EGD deferred at that time due to elevated troponin. Was thought it may be due to AVMs, she has increased risk for this due to her aortic stenosis. - Continue Protonix twice daily. - Hgb appears stable, continue to trend on a.m. labs. (13) Acute kidney injury superimposed on chronic kidney disease: Plan: student services rep to arrange outpatient HD chair at [place]. Patient lives alone, will need Rehab. Awaiting approval Admission and Anticipated Discharge Date Admission Date: August 14, 2021 Subjective patient seen and examined, says she feels overall better Review of Systems Review of Systems: All systems reviewed are negative, apart from the ones contained in the history. Physical Exam Physical Exam: The patient is awake, alert and oriented 3, well developed and well nourished, normocephalic and atraumatic, lying in bed and in no acute distress. HEENT--PERRL, EOMI, mucous membranes and oropharynx mildly dry Neck--supple. No JVD. No bruits. Thyroid normal, trachea midline, no adenopathy. Heart--normal S1 and S2. No murmurs, rubs or gallops. Lungs--clear bilaterally, no respiratory distress, no accessory muscle use. Abdomen--normal bowel sounds and soft. Mild epigastric and left sided abdominal pain Extremities--no cyanosis or clubbing. No edema. Dermatologic--normal skin turgor, normal color, no abnormal lymph nodes, no rash. Neurologic--cranial nerves II through XII grossly intact. Rheumatologic--normal range of motion. Psychiatric--normal affect. Results & Data Results & Data ([facility]) Vital Signs (Past 12 Hours) Vital Signs Temp Pulse Pulse Pulse Resp BP BP 08/25/21 13:20 54 L 103/45 L 08/25/21 13:00 50 L 120/44 L 08/25/21 12:52 97.3 F L 54 L 08/25/21 11:47 97.5 F L 49 L 16 120/52 L 08/25/21 06:35 98.4 F 51 L 14 115/58 L 08/25/21 02:51 97.5 F L 56 L 16 124/66 Pulse Ox 08/25/21 13:20 08/25/21 13:00 08/25/21 12:52 08/25/21 11:47 95 08/25/21 06:35 95 08/25/21 02:51 96 PG Care Time/CCT Total # of Minutes Spent Total Time Spent with Patient: Total time spent is greater than 50% in coordination of care (as documented) at patient's floor/unit and/or counseling patient: Coding Level of Care Code 66546 Subseq Hosp Care Lvl 2 Diagnoses Acute kidney injury superimposed on chronic kidney disease N17.9; N18.9 (HFpEF) heart failure with preserved ejection fraction I50.30 Metabolic acidosis E87.2 Hyponatremia E87.1 Aortic stenosis I35.0 Diabetes mellitus type 2 with complications E11.8 CAD (coronary artery disease) I25.10 History of CVA (cerebrovascular accident) Z86.73 Hypertension I10 Hypothyroidism E03.9 Restless legs G25.81 History of GI bleed Z87.19 ESRD (end stage renal disease) N18.6 Time Spent (min) 35
[2021-08-25] MEDS: rOPINIRole HCL 0.25 MG TABLET PO SCH (17:54)
[2021-08-25] MEDS: rOPINIRole HCL 1 MG TABLET PO SCH (23:02)
[2021-08-25] MEDS: ATORVASTATIN 10 MG TAB PO SCH (23:04)
[2021-08-26] MEDS: LEVOTHYROXINE SODIUM 112 MCG TABLET PO SCH (05:00)
[2021-08-26 06:26] LABS: Hematocrit (blood only) 26.7 % (37-47); Hemoglobin 8.6 g/dL (12.0-16.0); Mean Corpuscular Hemoglobin 30.2 pg (25-34); Mean Corpuscular Hgb Conc 32.2 g/dL (32-36); Mean Corpuscular Volume 93.7 fL (80-100); Mean Platelet Volume 10.4 fL (7.4-10.4); Platelet Count 166 K/uL (130-400); RDW Coefficient of Variation 14.6 % (11.5-14.5); RDW Standard Deviation 50.2 fL (36.4-46.3); Red Blood Count 2.85 M/uL (4.2-5.4); White Blood Count 7.49 K/uL (4.8-10.8)
[2021-08-26 06:53] LABS: BUN Creatinine Ratio 23.2 (10-20); Calcium 6.9 mg/dl (8.5-10.1); Creatinine Clr Calc Pharmacy 16.6 ml/min; Est GFR (African American) 21.7 ml/min; Est GFR (Non-African American) 18.7 ml/min; Potassium 3.9 mmol/L (3.5-5.1)
[2021-08-26] MEDS: SERTRALINE HCL 50 MG TABLET PO SCH (07:30)
[2021-08-26] MEDS: BETHANECHOL CHL 25 MG TAB PO SCH (07:30)
[2021-08-26] MEDS: DOXAZosin MESYLATE TAB 2 MG TAB PO SCH (07:30)
[2021-08-26] MEDS: rOPINIRole HCL 0.25 MG TABLET PO SCH (07:30)
[2021-08-26] MEDS: PANTOprazole 40 MG TAB PO SCH (07:30)
[2021-08-26] MEDS: HEPARIN SOD 5,000 UNIT/0.5 ML VIAL SQ SCH (07:31)
[2021-08-26] MEDS: TAMSULOSIN HCL 0.4 MG CAP PO SCH (07:31)
[2021-08-26] MEDS: CALCIUM 600MG + VIT D 400 IU TAB PO SCH (07:31)
[2021-08-26] MEDS: DOCUSATE SODIUM 100 MG CAP PO SCH (07:32)
--- NOTE | 2021-08-26 08:42 | Nephrology Progress Note ---
Date of Service August 26, 2021 Assessment & Plan (1) ESRD (end stage renal disease): Plan: * ESKD related to valvular heart disease, elevated right heart pressure, renal vascular disease with atrophic R kidney and documented ZBIGNIEW involving the L kidney. 1st HD treatment 08/23/21 via R IJ TCC * 3rd heparin free HD treatment completed 08/25/21. No acute indication for HD today * Patient will likely transfer to [facility] today. I have provided orders to HD medical staff assistant for HD MWF while at the rehab hospital (2) Anemia: Plan: * 1g IV Venofer completed 08/21 * DERRICK is being provided w/ HD Admission and Anticipated Discharge Date Admission Date: August 14, 2021 Subjective Ms. Ray was evaluated in her hospital room this morning. She was oriented to self, place and month. She tolerated her 3rd HD treatment yesterday without complication. She is anxious to transfer to [facility] for PT Review of Systems Constitutional: + weakness; no fever Eyes: no problem reported Ear, Nose, Mouth, Throat: no problem reported Respiratory: no cough and no dyspnea Cardiovascular: no chest pain, no palpitations and no edema Gastrointestinal: no abdominal pain, no nausea, no vomiting and no diarrhea/loose stools Musculoskeletal: no back pain Integumentary: no rash Neurologic: no confusion Physical Exam Constitutional: + frail appearing; not in distress Eyes: PERRL, conjunctivae normal, anicteric sclerae ENMT: external ear and nose normal, oropharynx normal Neck: trachea midline, no thyromegaly Respiratory: normal respiratory effort, lungs clear to auscultation Cardiovascular: Rate/Rhythm: regular rate and regular rhythm Heart Sounds: + murmur (harsh systolic murmur from apex to RUSB) Gastrointestinal (Abdomen): normal bowel sounds, soft, nontender, no hepatosplenomegaly Musculoskeletal: Extremities: no cyanosis Skin: no rashes, warm and dry Neurologic: awake; not confused Results & Data ([facility]) Vital Signs (Past 12 Hours) Vital Signs Temp Pulse Pulse Resp BP Pulse Ox 08/26/21 07:55 36.8 C 66 18 144/71 H 95 08/26/21 03:31 36.8 C 60 18 135/65 08/25/21 23:58 36.6 C 58 L 18 132/63 95 08/25/21 22:20 66 Laboratory Results Laboratory Tests 08/26/21 08/26/21 05:26 05:26 WBC 7.49 Hgb 8.6 L Hct 26.7 L Plt Count 166 Sodium 135 L Potassium 3.9 Chloride 102 Carbon Dioxide 24 BUN 54 H D Creatinine 2.33 H D Glucose 107 H PG Care Time/CCT Total # of Minutes Spent Total Time Spent with Patient: Total time spent is greater than 50% in coordination of care (as documented) at patient's floor/unit and/or counseling patient: Coding Level of Care Code 41010 Subseq Hosp Care Lvl 3 Diagnoses ESRD (end stage renal disease) N18.6 Anemia D64.9
[2021-08-26] MEDS: INSULIN ASPART PER UNIT SC SCH ×2 (09:36→12:58)
--- NOTE | 2021-08-26 11:45 | Cardiology Progress Note ---
Date of Service August 26, 2021 Assessment & Plan (1) Atrial fibrillation, new onset: Plan: -ventricular response adequately controlled without rate-controlling medications. -not on anticoagulation due to recent GI bleed secondary to small-bowel AVMs. (2) CAD (coronary artery disease): Plan: -nonobstructive disease by cardiac cath, July 2008. -50% RCA stenosis. (3) Aortic stenosis: Plan: -moderate aortic stenosis on current study, unchanged from December 2020. -mild to moderate mitral stenosis also noted. -not a likely culprit in her recent deterioration. (4) Pericardial effusion: Plan: -s/p pericardiocentesis, 350 cc, 08/17/2021. -cultures negative. (5) (HFpEF) heart failure with preserved ejection fraction: Plan: -compensated with hemodialysis. Admission and Anticipated Discharge Date Admission Date: August 14, 2021 Subjective The patient is resting comfortably in bedside chair without complaints of chest pain, dyspnea, or palpitations. She is anxious for discharge to . Physical Exam Physical Exam: In general this is an obese white female in no acute distress. HEENT exam is negative. Neck is supple with mildly delayed carotid upstrokes. There is a transmitted murmur bilaterally. No JVD. There is no thyromegaly. Cardiovascular exam reveals an irregularly irregular rhythm with a 2/6 crescendo decrescendo systolic murmur heard loudest at the base. No S3. Lungs are clear without rales, rhonchi, or wheezes. Abdomen is soft and nontender without bruits. Extremities reveal intact radial artery and posterior tibial pulses bilaterally. There is 1+ pretibial edema. Results & Data ([facility]) Vital Signs (Past 12 Hours) Vital Signs Temp Pulse Resp BP Pulse Ox 08/26/21 07:55 36.8 C 66 18 144/71 H 95 08/26/21 03:31 36.8 C 60 18 135/65 08/25/21 23:58 36.6 C 58 L 18 132/63 95 Diagnostic Findings mail censor notes rate controlled atrial fibrillation. PG Care Time/CCT Total # of Minutes Spent Total Time Spent with Patient: Total time spent is greater than 50% in coordination of care (as documented) at patient's floor/unit and/or counseling patient: Coding Level of Care Code 43243 Subseq Hosp Care Lvl 3 Diagnoses Atrial fibrillation, new onset I48.91 CAD (coronary artery disease) I25.10 Aortic stenosis I35.0 Pericardial effusion I31.3 (HFpEF) heart failure with preserved ejection fraction I50.30
--- NOTE | 2021-08-26 13:03 | Discharge Summary ---
Date of Service August 26, 2021 Admission HPI Per Admitting Provider Sully Ray is an 81 y/o F with PMH of CAD, HFpEF, aortic stenosis, hypertension, hyperlipidemia, DM2, GERD, iron deficiency anemia, and anxiety who presents today with worsening shortness of breath and weakness. She was recently discharged from the hospital last week on 09/01 after GI bleed requiring transfusion. Ever since then, she has become progressively more short of breath and generally weak. She does not have any fever chills, cough, no falls, and weakness is generalized and not focal to one limb or side. No numbness or tingling. She has not had any bloody bowel movements. She was seen in our ED yesterday for similar presentation, was found to be in A. fib and offered admission, however patient elected to return home and try increasing her Lasix dose from 40 mg to 60 mg. She states she did this this morning, however despite this she is struggling to breathe who presents for reevaluation. In ED, she is hypertensive 141/75 otherwise vital signs normal and stable. On room air. On labs, hemoglobin 9.2, sodium 126, BUN 96, creatinine 1.91 (baseline ~1.2 - 1.4), glucose 190, calcium 7.8, alk phos 294, hsTrop 21.9, BNP 385. COVID-negative. CXR with worsening central vascular congestion compared to yesterday's imaging, small bilateral pleural effusion and bibasilar atelectasis also noted. Principal Diagnosis ESRD on HD Discharge Exam The patient is awake, alert and oriented 3, well developed and well nourished, normocephalic and atraumatic, lying in bed and in no acute distress. HEENT--PERRL, EOMI, mucous membranes and oropharynx mildly dry Neck--supple. No JVD. No bruits. Thyroid normal, trachea midline, no adenopathy. Heart--normal S1 and S2. No murmurs, rubs or gallops. Lungs--clear bilaterally, no respiratory distress, no accessory muscle use. Abdomen--normal bowel sounds and soft. Mild epigastric and left sided abdominal pain Extremities--no cyanosis or clubbing. No edema. Dermatologic--normal skin turgor, normal color, no abnormal lymph nodes, no rash. Neurologic--cranial nerves II through XII grossly intact. Rheumatologic--normal range of motion. Psychiatric--normal affect. Discharge Data Allergies Allergy/AdvReac Type Severity Reaction Status Date / Time sulfamethoxazole AdvReac Unknown Verified 08/14/21 19:49 [From Bactrim] trimethoprim [From Bactrim] AdvReac Unknown Verified 08/14/21 19:49 Consultations 08/14/21 18:16 ED Decision to Admit Stat 08/14/21 18:42 Consult Cardiology Routine 08/16/21 11:28 Consult Nephrology Routine 08/18/21 07:28 Consult Stereoptician Routine 08/22/21 08:59 Consult Vascular Surgery Routine Procedures Performed Operation Date: 08/15/21 15:00 Actual Procedures p Right Heart Cath Only - Ronald Moura MD Operation Date: 08/17/21 08:30 Actual Procedures p Pericardiocentesis Initial - Ronald Moura MD Operation Date: 08/19/21 08:30 <No data on this case meets the specified criteria> Operation Date: 08/23/21 13:30 Actual Procedures p Insertion of Perm Catheter, Right Internal Jugular Approach, Ultrasound Localization of Right Internal Jugular Vein, Fluoroscopy for Positioning, Moderate Sedation [id number](Right) - Ariel Murray MD Ordered Studies 08/15/21 13:40 CL Cath Imgs for PACS use only Routine 08/16/21 11:28 US renal/blad retro comp Routine 08/16/21 17:46 US duplex renal artery Routine 08/17/21 07:55 CL Cath Imgs for PACS use only Stat 08/23/21 12:11 EV cvc insrt tunnel wo prt/pasta maker Routine US EV guide vascular access Routine Hospital Course (1) ESRD (end stage renal disease): Advanced kidney dysfunction with renal vascular disease with atrophic right kidney, according to nephrology renal angiogram will likely result in end- stage kidney disease Improving renal function after 2 sessions of HD, next session is planned tomorrow morning Will continue outpatient HD Case mgt on consult to help set up HD chair at [facility] (2) (HFpEF) heart failure with preserved ejection fraction: patient appears currently compensated Monitor i/o, daily weights (3) Metabolic acidosis: secondary to renal failure Resolving following HD (4) Hyponatremia: continue to monitor (5) Aortic stenosis: moderate to severe also concerns with mitral valve disease stenosis (6) Diabetes mellitus type 2 with complications: Outpatient hemoglobin A1c's have been low 4.7%6.6% over the last 2 years. - Hold oral agents, cover with SSI w/out carb coverage. - BSs have been 130 - 170. (7) CAD (coronary artery disease): Chronic, stable. - Continue statin, antihypertensives, Plavix. - Troponin very minimally elevated lower than troponin from prior ED visit. Likely mildly elevated in setting of MICHAEL/CKD. (8) History of CVA (cerebrovascular accident): Had Plavix held on last admission due to GI bleed.- Continue to hold Plavix. (9) Hypertension: BP stable today - Continue amlodipine - Hold losartan for now due to MICHAEL. (10) Hypothyroidism: - Continue levothyroxine. (11) Restless legs: - Continue ropinirole. (12) History of GI bleed: - Hospitalized earlier this month requiring 2 units of transfusion. EGD deferred at that time due to elevated troponin. Was thought it may be due to AVMs, she has increased risk for this due to her aortic stenosis. - Continue Protonix twice daily. - Hgb appears stable, continue to trend on a.m. labs. (13) Acute kidney injury superimposed on chronic kidney disease: director of tax services to arrange outpatient HD chair at [facility]. Patient lives alone, will need Rehab. Awaiting approval Total Time Total Time Spent Total Time Spent (In Minutes): 35 Discharge Plan Discharge Items Patient Disposition: Transfer Inpatient Rehab Fac Reason For Visit: CHF Discharge Diagnosis: ESRD on HD Activity: Resume your previous activity Non-emergency contact: Primary Care Provider and Substation Operator Call non-emergency contact if: you have any medication questions Follow-up/Referrals: Agatha Alfaro DO [Primary Care Provider] - Diet: Dialysis Renal Addtl Attending Provider Instructions: please make appointment to follow up with your wool sampler Pending Studies at Discharge: No Stand-Alone Forms: My [facility] Skilled Items Patient informed of condition?: Yes DNR: Yes Discharge Level of Care: Acute rehab Communicable Disease: No Discharge Prognosis: Improving Lines: None Urinary Catheter: No Medications and DC Order Prescriptions: Continued (DME) Blood Glucose Test Strip See Rx Instructions .ROUTE .MEDSUPPLY Qty: 100 RF: 5 furosemide [Lasix] 40 mg tablet 40 mg PO BID Qty: 180 RF: 1 levothyroxine [Synthroid] 112 mcg tablet 112 mcg PO DAILYBB Qty: 90 RF: 1 bethanechol chloride 50 mg tablet 50 mg PO BID Qty: 180 RF: 3 atorvastatin [Lipitor] 10 mg tablet 10 mg PO HS Qty: 90 RF: 1 Tradjenta 5 mg tablet 5 mg PO QAM Qty: 90 RF: 1 ropinirole 0.5 mg tablet See Rx Instructions PO .COMPLEX Qty: 360 RF: 1 triamcinolone acetonide 0.5 % cream 1 applic topical BID PRN (Reason: skin irritation) Qty: 60 RF: 1 amlodipine [Norvasc] 10 mg tablet 10 mg PO QAM Qty: 90 RF: 1 tramadol [Ultram] 50 mg tablet 50 mg PO BID PRN (Reason: pain) Qty: 60 RF: 0 methocarbamol 500 mg tablet 500 mg PO TID PRN (Reason: muscle spasm) Qty: 90 RF: 1 doxazosin 4 mg tablet 4 mg PO DAILY RF: 0 ferrous sulfate 325 mg (65 mg iron) tablet 325 mg PO BID Qty: 60 RF: 6 vitamin E 1,000 unit Capsule 1,000 unit PO QAM RF: 0 cholecalciferol (vitamin D3) [Vitamin D3] 1,000 unit Capsule 1,000 unit PO QAM RF: 0 Calcium 600 + D(3) 600 mg calcium- 200 unit Capsule 1 cap PO QAM RF: 0 [place]-3 Fish Oil 300-1,000 mg Capsule 1 cap PO QAM RF: 0 Azo Cranberry 250 mg Tablet,Chewable 500 mg PO QAM RF: 0 pantoprazole [Protonix] 40 mg tablet,delayed release (DR/EC) 40 mg PO BID Qty: 60 RF: 0 acetaminophen [Tylenol Extra Strength] 500 mg Tablet 500 mg PO Q6H PRN (Reason: Pain) RF: 0 ascorbic acid (vitamin C) [Vitamin C] 500 mg Tablet 1,000 mg PO QAM RF: 0 docusate sodium [Colace] 100 mg Capsule 100 mg PO QAM PRN (Reason: Constipation) RF: 0 nitrofurantoin monohyd/m-cryst [Macrobid] 100 mg capsule 100 cap PO QAM RF: 0 cyanocobalamin (vitamin B-12) [Vitamin B-12] 1,000 mcg tablet 1,000 mcg PO QAM RF: 0 tamsulosin [Flomax] 0.4 mg capsule 0.4 mg PO QAM RF: 0 magnesium oxide 400 mg magnesium tablet 500 mg PO QAM RF: 0 sertraline 25 mg tablet 25 mg PO UD RF: 0 Discharge Orders: Discharge Order (Routine); Ordered 08/26/21 Ordered By: Rafael Monroe Admission Data Admit Date/Time: 08/14/21 18:42 Attending Provider: Rafael Monroe Admit Provider: Omari Vaughan Primary Care Provider: Agatha Alfaro Other Providers: Lux Aranda ; Christiano Oconnell [facility] ; Omari Vaughan ; Andres Agudelo ; Kaylan Will ; Frank Keene ; Ariel Murray ; [facility] Coding Level of Care Code D/C DAY MANAGEMENT >30 MINS Diagnoses ESRD (end stage renal disease) N18.6 (HFpEF) heart failure with preserved ejection fraction I50.30 Metabolic acidosis E87.2 Hyponatremia E87.1 Aortic stenosis I35.0 Diabetes mellitus type 2 with complications E11.8 CAD (coronary artery disease) I25.10 History of CVA (cerebrovascular accident) Z86.73 Hypertension I10 Hypothyroidism E03.9 Restless legs G25.81 History of GI bleed Z87.19 Acute kidney injury superimposed on chronic kidney disease N17.9; N18.9 Time Spent (min) 35
== END 2021-08-26 15:08 | DRG 286 ==
LOC: ED 15:45 → SUATTDRO 18:42 → 2S 18:42 → 1E 08-17 10:34 → 2E 08-19 15:36 → 2N 08-23 21:29
PROC: CLB.CRH (2021-08-15 15:00)

== ENCOUNTER 2022-04-05 16:29 | Inpatient (IN) ==
[2022-04-05] MEDS ORDERED: SODIUM CHLORIDE 0.9% 250 ML IV PRN (17:11)
--- NOTE | 2022-04-05 17:16 | ED Triage Note ---
Date of Service April 05, 2022 History of Present Illness This patient was briefly evaluated while in triage. An abbreviated physical exam was performed. This patient is a 82-year-old Female who presents to the ED for evaluation of GI bleeding. Patient reports blood in her stools. She had testing done by [facility] and was referred here for admission. Physical Exam VITALS: Vitals are noted on the nurse's note and reviewed by myself. GENERAL: This is an 82-year-old female, in no acute distress. SKIN: The skin was without rashes. HEART: Regular rate and rhythm without murmurs gallops or rubs. LUNGS: Clear to auscultation bilaterally without wheezes, rales or rhonchi. NEURO: Patient was alert and oriented to person place and time. Initial orders for labs and / or imaging were placed and patient was placed in t he waiting area until a bed is available. Please see further documentation for the full ED course.
[2022-04-05 19:32] LABS: Albumin Globulin Ratio 1.6 (0.9-2); Albumin Level 3.3 gm/dl (3.4-5.0); BUN Creatinine Ratio 17.6 (10-20); Bilirubin,Total 0.5 mg/dl (0.2-1.0); Calcium 8.3 mg/dl (8.5-10.1); Creatinine Clr Calc Pharmacy 9.8 ml/min; Est GFR (African American) 13.8 ml/min; Est GFR (Non-African American) 11.9 ml/min; Globulin 2.1 gm/dl (2.5-4.0); Potassium 4.7 mmol/L (3.5-5.1); Total Protein 5.4 gm/dl (6.0-8.3)
[2022-04-05 19:58] LABS: Basophils # (auto) 0.03 K/uL (0-0.2); Basophils % (auto) 0.6 %; Eosinophils # (auto) 0.13 K/uL (0-0.50); Eosinophils % (auto) 2.4 %; Hematocrit (blood only) 26.4 % (37.0-47.0); Hemoglobin 8.5 g/dl (12.0-16.0); Immature Granulocytes # (auto) 0.03 K/uL (0.01-0.20); Immature Granulocytes % (auto) 0.6 %; Lymphocytes # (auto) 0.82 K/uL (1.2-3.4); Lymphocytes % (auto) 15.3 %; Mean Corpuscular Hemoglobin 32.4 pg (25.0-34.0); Mean Corpuscular Hgb Conc 32.2 g/dL (32.0-36.0); Mean Corpuscular Volume 100.8 fL (80.0-100.0); Mean Platelet Volume 11.2 fL (9.4-12.4); Monocytes # (auto) 0.23 K/uL (0.11-0.59); Monocytes % (auto) 4.3 %; Neutrophils # (auto) 4.11 K/uL (1.40-6.50); Neutrophils % (auto) 76.8 %; Platelet Count 103 K/uL (130-400); RDW Coefficient of Variation 16.2 % (11.5-14.5); RDW Standard Deviation 60.4 fL (36.4-46.3); Red Blood Count 2.62 M/uL (4.20-5.40); White Blood Count 5.35 K/ul (4.8-10.8)
[2022-04-05 20:06] LABS: INR 1.1 (0.9-1.1); Partial Thromboplastin Ratio 0.9; Prothrombin Time 11.2 Seconds (9.0-12.0)
[2022-04-05] MEDS ORDERED: FAMOTIDINE 20 MG in SYRINGE 3 ML IV ONE (20:20)
[2022-04-05] MEDS ORDERED: PANTOprazole 40 MG in SYRINGE 0 ML IV ONE (20:20)
--- NOTE | 2022-04-05 20:23 | Emergency Department Note ---
Impression & Plan GIB (gastrointestinal bleeding), ESRD (end stage renal disease), Anemia ED Provider Note NAME: NIURKA QUIÑONES AGE: 82 SEX: F : 1940 ARRIVES VIA: Walk-In INFORMANT: Patient, the patient's family member ED PROVIDER(S): Andres Coyle DO CHIEF COMPLAINT: GI bleeding HPI: The patient is an 82-year-old female who presented to the emergency department for black stool. She states she has had multiple episodes of black stool over the course the last few months. She has had a formal work-up as an outpatient. At this time they feel that she has an upper GI bleed from her small intestine. The patient has been compliant with her outpatient medications. She was last at dialysis on Sunday. She is noticed some black stool. She denies having any fever. She denies having any recent trauma. The patient recently had an upper endoscopy. ROS: See above HPI for pertinent positives & negatives. A total of 10 systems reviewed and were otherwise negative. PAST MEDICAL HISTORY: See Below PAST SURGICAL HISTORY: See Below FAMILY HISTORY: See Below SOCIAL HISTORY: See Below HOME MEDICATIONS: See Below ALLERGIES: See Below VITALS: See Below PHYSICAL EXAMINATION: GENERAL: Patient is awake alert in no acute distress patient is resting comfortably and showing no signs of anxiety EYES: The conjunctivae are clear. The pupils are round and reactive. EARS, NOSE, MOUTH AND THROAT: The nose is without any evidence of any deformity. NECK: The neck is nontender and supple. RESPIRATORY: Normal respiratory effort is noted there is no evidence of wheezing rhonchi or rales CARDIOVASCULAR: Irregular heart sounds were noted to auscultation. Systolic murmur was suggested. GASTROINTESTINAL: The abdomen is soft. Abdomen is nontender. MUSCULOSKELETAL/EXTREMITIES: There is no evidence of gross deformity full range of motion is noted in the hips and shoulders. SKIN: Pedal edema was noted bilaterally. NEUROLOGIC: Patient is awake alert and oriented x3 MEDICAL DECISION MAKING: The patient is an 82-year-old female who presented to the emergency department for an evaluation of GI bleeding. The patient's been having dropping hemoglobin. She has a history of end-stage renal disease. She last had dialysis on Sunday. Further history was obtained from the patient's family member. The patient was seen for GI evaluation recently. She was felt to have upper GI bleeding in the proximal small bowel. The patient was treated with Protonix and Pepcid in the emergency department. I discussed the patient's laboratory studies with her. I also discussed her condition with the on-call [facility] hospitalist. They have agreed to evaluate the patient in the [facility] department for further management and disposition. Triage Nursing notes reviewed. Prior medical records reviewed Vital Signs: reviewed and remarkable for no significant abnormalities Differential diagnosis: Diverticulosis, AVM, coagulopathy, colitis, inflammatory bowel disease, malignancy, Lindsay-Andrade tear, esophagitis, peptic ulcer disease, variceal bleed, gastritis, epistaxis, fissure, hemorrhoids, as well as other pathologies. ER treatment provided: See below Diagnostics interpreted by me: ECG: EKG was obtained in the emergency department. My interpretation was atrial fibrillation at 53 bpm. There was no PVCs noted. Right bundle branch block pattern was noted. This was compared to a tracing from August 17, 2021. No changes were noted. Cardiac Monitoring: An order was placed for continuous cardiac monitoring. The monitor shows a rate of 60 bpm with atrial fibrillation. Laboratory studies: As stated above and show below. Imaging studies: See below. Consultation(s): I discussed this case with Dr. Beck who is on-call for the [facility] hospitalist group. Past Med/Surg History Medical History (Updated 04/06/22 @ 09:18 by Andres Coyle DO) Acute kidney injury superimposed on chronic kidney disease Anemia of chronic disease Anxiety Aortic stenosis CAD (coronary artery disease) Chronic diastolic heart failure Chronic hyponatremia Diabetes mellitus, type 2 Diabetic retinopathy Elevated troponin Essential tremor MINOR IN HAND Fatty liver First degree AV block GERD without esophagitis Hearing deficit no hearing aids Hiatal hernia History of CVA (cerebrovascular accident) (2018) ~3-4 years ago, woke up with weakness in her rt hand; L lacunar infarct; previously on plavix>no residual effects History of GI bleed hx 08/2021, given transfusion-per medical record History of renal dialysis tuesdays, , and saturdays currently; catheter in pt's neck Hx of atrial fibrillation, no current medication per medical report Hyperlipidemia Hypertension Hypothyroidism 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 Osteoarthritis Poor historian RBBB f/u dr. aguirre Recurrent UTI Resistant hypertension Restless legs Urinary urgency Venous insufficiency Weakness Surgical History H/O varicose vein ligation History of back surgery (04/2010) X 2 History of bladder suspension procedure X 2 History of colonoscopy History of esophagogastroduodenoscopy (EGD) History of tooth extraction Hx of cardiac catheterization 08/2021, [facility] w/Dr. Moura for increased cardiac pressures; no stents S/P carpal tunnel release RT/LEFT S/P hysterectomy ANDRIA S/P knee replacement RT/LEFT S/P pericardiocentesis 08/2021, [place], w/dr moura S/P trigger finger release Family History Father Alcohol abuse Heart disease Myocardial infarction Hypertension Sister Pancreatic cancer Diabetes Breast cancer Brother Diabetes Alcohol abuse Stroke Other Cancer No family history of adverse response to anesthesia Denies family history of Ovarian cancer Prostate cancer Colorectal cancer Social History Smoking Status: Never smoker Second Hand Exposure: Yes (long time ago, 40+ years ago); Hx Alcohol Use: No Hx Substance Use: No Preferred Language: Turkish Communication Ability: Effective Visual Impairment: No Limitations Hearing Ability: Normal Processing Operator Required: No Beliefs That Will Affect Care: None marital status: Single Current Living Situation: Alone current occupational status: retired How many Children do You have: 2 Other Information That Helps Us Care for You: No Feels Safe at Home: Yes Safety Concerns: Feels Safe At This Time Childhood Exposure to Second-Hand Smoke: No Diet Comment: regular caffeine: Yes (Coffee x 2 cups per day.) during the past year weight has: remained stable Dental Care, Regularly: No Physical Activity Frequency: Does not Exercise Seatbelt Use: always Sunscreen Use: Yes Assistive Devices: Cane, Denture - Upper, Denture - Lower, Glasses and Walker Allergies Allergies Allergy/AdvReac Type Severity Reaction Status Date / Time sulfamethoxazole AdvReac Unknown Verified 04/05/22 21:29 [From Bactrim] trimethoprim [From Bactrim] AdvReac Unknown Verified 04/05/22 21:29 Home Meds Home Medications Medication Instructions Recorded Confirmed cholecalciferol (vitamin D3) 25 2,000 unit PO QAM 05/29/18 04/05/22 mcg (1,000 unit) capsule (Vitamin D3) cranberry fruit concentrate 250 mg 500 mg PO QAM 05/29/18 04/05/22 chewable tablet (Azo Cranberry) omega-3s 300 [id number] 1 cap PO QAM 05/29/18 04/05/22 [id number] oil 1,000 mg capsule (Olivia-3 Fish Oil) ascorbic acid (vitamin C) 500 mg 1,000 mg PO QAM 11/12/20 04/05/22 tablet (Vitamin C) cyanocobalamin (vitamin B-12) 1,000 mcg PO QAM 11/12/20 04/05/22 1,000 mcg tablet (Vitamin B-12) tamsulosin 0.4 mg capsule (Flomax) 0.4 mg PO QAM 11/12/20 04/05/22 loperamide 2 mg capsule 2 mg PO TID PRN Diarrhea 12/02/21 04/05/22 (Anti-Diarrheal (loperamide)) doxazosin 4 mg tablet 4 mg PO QAM 12/07/21 04/05/22 hydrocortisone 2.5 % topical cream 1 applic [place] UD PRN hemorrhoids 12/07/21 04/05/22 with perineal applicator hydrocortisone acetate 25 mg 25 mg [place] QAM PRN Hemorrhoids 12/07/21 04/05/22 rectal suppository (Anusol-HC) levothyroxine 112 mcg tablet 112 mcg PO QAM 12/07/21 04/05/22 (Synthroid) furosemide 80 mg tablet 80 mg PO BID 03/20/22 04/05/22 sevelamer carbonate 800 mg tablet 800 mg PO TID 03/20/22 04/05/22 vitamin E 400 unit tablet 400 mg PO QAM 03/20/22 04/05/22 calcium carbonate 500 mg calcium 0 mg PO QAM 04/05/22 04/05/22 (1,250 mg) tablet Previous Rx's Medication Instructions Recorded blood sugar diagnostic (Blood #100 ea 10/12/20 Glucose Test strips) bethanechol chloride 50 mg tablet 50 mg PO BID #180 tabs 04/19/21 methocarbamol 500 mg tablet 500 mg PO TID PRN muscle spasm #90 08/11/21 tabs atorvastatin 10 mg tablet (Lipitor) 10 mg PO HS #90 tabs 11/18/21 Saccharomyces boulardii 250 mg 250 mg PO BID #180 caps 12/05/21 capsule (Florastor) diaper,brief,adult,disposable #150 ea 12/07/21 (Fitted Briefs X-Large) linagliptin 5 mg tablet (Tradjenta) 5 mg PO QAM #90 tabs 12/07/21 sucralfate 100 mg/mL oral 1 g (10 mL) PO QID #200 mL 12/14/21 suspension (Carafate) tramadol 50 mg tablet (Ultram) 50 mg PO BID PRN pain #60 tabs 12/31/21 triamcinolone acetonide 0.05 % 1 applic topical BID #430 grams 01/18/22 topical ointment amlodipine 10 mg tablet (Norvasc) 10 mg PO QAM #90 tabs 02/23/22 pantoprazole 40 mg tablet,delayed 40 mg PO BID #60 tabs 02/28/22 release (Protonix) ropinirole 0.5 mg tablet 0.5 - 1.5 mg PO UD #360 tabs 03/07/22 famotidine 40 mg tablet 40 mg PO BID #60 tabs 03/21/22 Results & Data (ED) Vital Signs Vital Signs - 24 hr 04/05/22 17:10 04/05/22 22:16 Temperature 36.1 C L Temperature Source Skin Pulse Rate 55 L 54 L Respiratory Rate 20 18 Respiratory Effort / Characteristics Non-Labored Spontaneous Respiratory Depth Normal Respiratory Pattern Regular Blood Pressure 115/72 119/40 L Blood Pressure Mean 86 66 Pulse Oximetry 99 99 Oxygen Delivery Method Room Air Room Air Sepsis Recent Fever Within 48 Hours No Sepsis New/Unexplained Change in Mental Status N/A Sepsis Action Taken by Nursing No Action Required Home Medications Current Medication List: was personally reviewed by me Laboratory Data Attestation: I reviewed the patient's lab results. 04/05/22 18:45 04/05/22 18:45 Lab Results 04/05/22 04/05/22 04/05/22 Range/Units 18:45 18:45 18:45 WBC 5.35 (4.8-10.8) K/ul RBC 2.62 L (4.20-5.40) M/uL Hgb 8.5 L (12.0-16.0) g/dl Hct 26.4 L (37.0-47.0) % MCV 100.8 H (80.0-100.0) fL MCH 32.4 (25.0-34.0) pg MCHC 32.2 (32.0-36.0) g/dL RDW Std Deviation 60.4 H (36.4-46.3) fL RDW Coeff of Irasema 16.2 H (11.5-14.5) % Plt Count 103 L (130-400) K/uL MPV 11.2 (9.4-12.4) fL Immature Gran % (Auto) 0.6 % Neut % (Auto) 76.8 % Lymph % (Auto) 15.3 % [place] % (Auto) 4.3 % Eos % (Auto) 2.4 % Baso % (Auto) 0.6 % Neut # (Auto) 4.11 (1.40-6.50) K/uL Lymph # (Auto) 0.82 L (1.2-3.4) K/uL [place] # (Auto) 0.23 (0.11-0.59) K/uL Eos # (Auto) 0.13 (0-0.50) K/uL Baso # (Auto) 0.03 (0-0.2) K/uL Immature Gran # (Auto) 0.03 (0.01-0.20) K/uL PT 11.2 (9.0-12.0) Seconds INR 1.1 (0.9-1.1) APTT 24.0 (21.0-31.0) Seconds PTT Ratio 0.9 Sodium (136-145) mmol/L Potassium (3.5-5.1) mmol/L Chloride (98-107) mmol/L Carbon Dioxide (21-32) mmol/L Anion Gap (3-11) BUN (6-23) mg/dl Creatinine (0.6-1.2) mg/dl Est Cr Clr Drug Dosing ml/min Est GFR ( Amer) ml/min Est GFR (Non-Af Amer) ml/min BUN/Creatinine Ratio (10-20) Glucose (70-99(Fasting)) mg/dl Calcium (8.5-10.1) mg/dl Total Bilirubin (0.2-1.0) mg/dl AST (13-39) U/L ALT (7-52) U/L Alkaline Phosphatase (34-104) U/L Total Protein (6.0-8.3) gm/dl Albumin (3.4-5.0) gm/dl Globulin (2.5-4.0) gm/dl Albumin/Globulin Ratio (0.9-2) SARS-CoV-2, RNA, NAAT (NEGATIVE) Blood Type O Positive Antibody Screen NEGATIVE Crossmatch See Detail 04/05/22 04/05/22 Range/Units 18:45 20:42 WBC (4.8-10.8) K/ul RBC (4.20-5.40) M/uL Hgb (12.0-16.0) g/dl Hct (37.0-47.0) % MCV (80.0-100.0) fL MCH (25.0-34.0) pg MCHC (32.0-36.0) g/dL RDW Std Deviation (36.4-46.3) fL RDW Coeff of Irasema (11.5-14.5) % Plt Count (130-400) K/uL MPV (9.4-12.4) fL Immature Gran % (Auto) % Neut % (Auto) % Lymph % (Auto) % [place] % (Auto) % Eos % (Auto) % Baso % (Auto) % Neut # (Auto) (1.40-6.50) K/uL Lymph # (Auto) (1.2-3.4) K/uL [place] # (Auto) (0.11-0.59) K/uL Eos # (Auto) (0-0.50) K/uL Baso # (Auto) (0-0.2) K/uL Immature Gran # (Auto) (0.01-0.20) K/uL PT (9.0-12.0) Seconds INR (0.9-1.1) APTT (21.0-31.0) Seconds PTT Ratio Sodium 140 (136-145) mmol/L Potassium 4.7 (3.5-5.1) mmol/L Chloride 102 (98-107) mmol/L Carbon Dioxide 30 (21-32) mmol/L Anion Gap 8 (3-11) BUN 59 H (6-23) mg/dl Creatinine 3.36 H (0.6-1.2) mg/dl Est Cr Clr Drug Dosing 9.8 ml/min Est GFR ( Amer) 13.8 ml/min Est GFR (Non-Af Amer) 11.9 ml/min BUN/Creatinine Ratio 17.6 (10-20) Glucose 113 H (70-99(Fasting)) mg/dl Calcium 8.3 L (8.5-10.1) mg/dl Total Bilirubin 0.5 (0.2-1.0) mg/dl AST 39 (13-39) U/L ALT 37 (7-52) U/L Alkaline Phosphatase 302 H (34-104) U/L Total Protein 5.4 L (6.0-8.3) gm/dl Albumin 3.3 L (3.4-5.0) gm/dl Globulin 2.1 L (2.5-4.0) gm/dl Albumin/Globulin Ratio 1.6 (0.9-2) SARS-CoV-2, RNA, NAAT NEGATIVE (NEGATIVE) Blood Type Antibody Screen Crossmatch Administered Medications Insulin Aspart (Insulin Aspart Per Unit) 0 units SC ACHS [place] Stop: 05/06/22 07:29 Last Admin: 04/06/22 08:54 Dose: Not Given Documented By: ENS Discontinued Medications Diphenhydramine HCl (Diphenhydramine 50 Mg/Ml Vial) 10 mg IV NOW STA Stop: 04/06/22 00:35 Last Admin: 04/06/22 01:47 Dose: 10 mg Documented By: Famotidine (Famotidine 20mg/5ml Iv Push) Confirm Administered Dose 20 mg IV .STK-MED ONE Stop: 04/05/22 20:54 Last Admin: 04/05/22 21:07 Dose: 20 mg Documented By: DANO Pantoprazole Sodium 40 mg/ (Syringe) 10 mls @ 5 mls/min IV NOW ONE Stop: 04/05/22 20:21 Last Admin: 04/05/22 22:14 Dose: 5 mls/min Documented By: DANO Famotidine 20 mg/ Syringe 5 mls @ 2.5 mls/min IV NOW ONE Stop: 04/05/22 20:21 Last Admin: 04/05/22 21:07 Dose: Not Given Documented By: DANO Discharge Plan Visit Data Chief Complaint: GI Bleed Stated Complaint: REF BY DOC, GI BLEED ED Provider: Andres Coyle Discharge Problem: GIB (gastrointestinal bleeding), ESRD (end stage renal disease), Anemia Patient Disposition: Admitted As Inpatient Discharge Instructions Interventions: ED Discharge Assessment Last Done: 04/06/22 05:02
[2022-04-05] MEDS ORDERED: FAMOTIDINE 20MG/5ML IV PUSH IV ONE (20:53)
[2022-04-05] MEDS ORDERED: GLUCOSE 40% GEL 15 GM TUBE PO PRN (23:19)
[2022-04-05] MEDS ORDERED: CARBOHYDRATES FOR HYPOGLYCEMIA PO PRN (23:19)
[2022-04-05] MEDS ORDERED: GLUCOSE 10 TAB/TUBE PO PRN (23:19)
[2022-04-05] MEDS ORDERED: GLUCAGON FOR INJ 1 MG VIAL SQ PRN (23:19)
[2022-04-05] MEDS ORDERED: DEXTROSE 50% 50 ML SYRINGE IV PRN (23:19)
[2022-04-05] MEDS ORDERED: ACETAMINOPHEN 325 MG TAB PO PRN (23:19)
[2022-04-06] MEDS ORDERED: diphenhydrAMINE 50 MG/ML VIAL IV STA (00:34)
[2022-04-06 00:53] LABS: Hematocrit (blood only) 23.3 % (37.0-47.0); Hemoglobin 7.6 g/dl (12.0-16.0)
--- NOTE | 2022-04-06 04:40 | History & Physical Report ---
Date of Service April 06, 2022 The patient was seen and examined on April 05, 2022 Assessment & Plan (1) Neurogenic bladder: (2) Gastroparesis: (3) Diabetes mellitus type 2 with complications: (4) ARMD (age related macular degeneration): (5) Secondary hyperparathyroidism of renal origin: (6) Cirrhosis: (7) Esophageal varices: (8) Pulmonary hypertension: (9) (HFpEF) heart failure with preserved ejection fraction: (10) History of renal dialysis: (11) Vitamin D deficiency: (12) CAD (coronary artery disease): (13) Aortic stenosis: (14) Anxiety: (15) Hypothyroidism: (16) Hyperlipidemia: (17) Hypertension: (18) 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: (19) Fatty liver: (20) ESRD on hemodialysis: Plan Upper GI bleed/symptomatic anemia requiring transfusion- Patient has been transfused 2 units PRBCs on the following dates: 02/17/2022, 03/03/2022, 03/24/2022, and 03/31/2022 Hemoglobin is stable this admission at 8.5 Follow serial H&H's every 6 hours N.p.o. for possible procedure Consult gastroenterology for possible repeat EGD Pantoprazole 40 mg IV every 12 hours ESRD on HD- Consult [facility] Diabetes mellitus- N.p.o. as noted Hold linagliptin Placed on Accu-Cheks with NovoLog SSI Hyperlipidemia- For now hold atorvastatin Hypertension- Hold furosemide, doxazosin, amlodipine Hypothyroidism- Hold levothyroxine Admission and Anticipated Discharge Date Admission Date: April 05, 2022 History of Present Illness Chief Complaint: The patient presents to the emergency department with complaint of persistence of black stool, and with her daughter being told that a recent capsule endoscopy showed an area of upper GI bleeding, she was told to present to the emergency department for assessment and possible repeat endoscopy. The patient's main symptom is that of feeling tired all the time Primary Care Provider: Agatha Alfaro DO The patient is an 82-year-old female with a past medical history including GI bleed from unknown source, partial arterial occlusion of retina, neurogenic bladder, gastroparesis, diabetes mellitus type 2 with complications, ARMD, secondary hyperparathyroidism of renal origin, ESRD on HD, cirrhosis, esophageal varices, pulmonary hypertension, acute blood loss anemia, HFpEF, mitral stenosis, history of CVA, CAD, RBBB, aortic stenosis, anxiety, fatty liver, GERD without esophagitis, hyperlipidemia, hypertension, hypothyroidism, restless legs, venous insufficiency and Mobitz type I second-degree AV block. The patient has been followed closely by GI in the outpatient setting, and has required a total of 8 units of PRBCs transfused since 02/17/2022. She had an EGD on 12/12/2021 which primarily showed gastritis, had a colonoscopy in 2020 which was nonrevealing, and had capsule endoscopy a few days ago of which the family was told there was an area of blood, but no direct source of bleeding found. Allergies Allergy/AdvReac Type Severity Reaction Status Date / Time sulfamethoxazole AdvReac Unknown Verified 04/05/22 21:29 [From Bactrim] trimethoprim [From Bactrim] AdvReac Unknown Verified 04/05/22 21:29 Home Medications Medication Instructions Recorded Confirmed Type cholecalciferol (vitamin D3) 25 2,000 unit PO QAM 05/29/18 04/05/22 History mcg (1,000 unit) capsule (Vitamin D3) cranberry fruit concentrate 250 mg 500 mg PO QAM 05/29/18 04/05/22 History chewable tablet (Azo Cranberry) omega-3s 300 [id number] 1 cap PO QAM 05/29/18 04/05/22 History [id number] oil 1,000 mg capsule ([place]-3 Fish Oil) blood sugar diagnostic (Blood #100 ea 10/12/20 04/05/22 Rx Glucose Test strips) ascorbic acid (vitamin C) 500 mg 1,000 mg PO QAM 11/12/20 04/05/22 History tablet (Vitamin C) cyanocobalamin (vitamin B-12) 1,000 mcg PO QAM 11/12/20 04/05/22 History 1,000 mcg tablet (Vitamin B-12) tamsulosin 0.4 mg capsule (Flomax) 0.4 mg PO QAM 11/12/20 04/05/22 History bethanechol chloride 50 mg tablet 50 mg PO BID #180 tabs 04/19/21 04/05/22 Rx methocarbamol 500 mg tablet 500 mg PO TID PRN muscle spasm #90 08/11/21 04/05/22 Rx tabs atorvastatin 10 mg tablet (Lipitor) 10 mg PO HS #90 tabs 11/18/21 04/05/22 Rx loperamide 2 mg capsule 2 mg PO TID PRN Diarrhea 12/02/21 04/05/22 History (Anti-Diarrheal (loperamide)) Saccharomyces boulardii 250 mg 250 mg PO BID #180 caps 12/05/21 04/05/22 Rx capsule (Florastor) diaper,brief,adult,disposable #150 ea 12/07/21 04/05/22 Rx (Fitted Briefs X-Large) doxazosin 4 mg tablet 4 mg PO QAM 12/07/21 04/05/22 History hydrocortisone 2.5 % topical cream 1 applic NM UD PRN hemorrhoids 12/07/21 04/05/22 History with perineal applicator hydrocortisone acetate 25 mg 25 mg NM QAM PRN Hemorrhoids 12/07/21 04/05/22 History rectal suppository (Anusol-HC) levothyroxine 112 mcg tablet 112 mcg PO QAM 12/07/21 04/05/22 History (Synthroid) linagliptin 5 mg tablet (Tradjenta) 5 mg PO QAM #90 tabs 12/07/21 04/05/22 Rx sucralfate 100 mg/mL oral 1 g (10 mL) PO QID #200 mL 12/14/21 04/05/22 Rx suspension (Carafate) tramadol 50 mg tablet (Ultram) 50 mg PO BID PRN pain #60 tabs 12/31/21 04/05/22 Rx triamcinolone acetonide 0.05 % 1 applic topical BID #430 grams 01/18/22 04/05/22 Rx topical ointment amlodipine 10 mg tablet (Norvasc) 10 mg PO QAM #90 tabs 02/23/22 04/05/22 Rx pantoprazole 40 mg tablet,delayed 40 mg PO BID #60 tabs 02/28/22 04/05/22 Rx release (Protonix) ropinirole 0.5 mg tablet 0.5 - 1.5 mg PO UD #360 tabs 03/07/22 04/05/22 Rx furosemide 80 mg tablet 80 mg PO BID 03/20/22 04/05/22 History sevelamer carbonate 800 mg tablet 800 mg PO TID 03/20/22 04/05/22 History vitamin E 400 unit tablet 400 mg PO QAM 03/20/22 04/05/22 History famotidine 40 mg tablet 40 mg PO BID #60 tabs 03/21/22 04/05/22 Rx calcium carbonate 500 mg calcium 0 mg PO QAM 04/05/22 04/05/22 History (1,250 mg) tablet Past Med/Surg History Medical History (Updated 04/06/22 @ 04:58 by Jhon Beck MD) Acute kidney injury superimposed on chronic kidney disease Anemia of chronic disease Anxiety Aortic stenosis CAD (coronary artery disease) Chronic diastolic heart failure Chronic hyponatremia Diabetes mellitus, type 2 Diabetic retinopathy Elevated troponin Essential tremor MINOR IN HAND Fatty liver First degree AV block GERD without esophagitis Hearing deficit no hearing aids Hiatal hernia History of CVA (cerebrovascular accident) (2018) ~3-4 years ago, woke up with weakness in her rt hand; L lacunar infarct; previously on plavix>no residual effects History of GI bleed hx 08/2021, given transfusion-per medical record History of renal dialysis tuesdays, , and saturdays currently; catheter in pt's neck Hx of atrial fibrillation, no current medication per medical report Hyperlipidemia Hypertension Hypothyroidism 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 Osteoarthritis Poor historian RBBB f/u dr. aguirre Recurrent UTI Resistant hypertension Restless legs Urinary urgency Venous insufficiency Weakness Surgical History H/O varicose vein ligation History of back surgery (04/2010) X 2 History of bladder suspension procedure X 2 History of colonoscopy History of esophagogastroduodenoscopy (EGD) History of tooth extraction Hx of cardiac catheterization 08/2021, [facility] w/Dr. Moura for increased cardiac pressures; no stents S/P carpal tunnel release RT/LEFT S/P hysterectomy ANDRIA S/P knee replacement RT/LEFT S/P pericardiocentesis 08/2021, [place], w/dr moura S/P trigger finger release Family History Father Alcohol abuse Heart disease Myocardial infarction Hypertension Sister Pancreatic cancer Diabetes Breast cancer Brother Diabetes Alcohol abuse Stroke Other Cancer No family history of adverse response to anesthesia Denies family history of Ovarian cancer Prostate cancer Colorectal cancer Social History Smoking Status: Never smoker Second Hand Exposure: Yes (long time ago, 40+ years ago); Hx Alcohol Use: No Hx Substance Use: No Preferred Language: Romansh Communication Ability: Effective Visual Impairment: No Limitations Hearing Ability: Normal Fruit Coordinator Required: No Beliefs That Will Affect Care: None marital status: Single Current Living Situation: Alone current occupational status: retired How many Children do You have: 2 Other Information That Helps Us Care for You: No Feels Safe at Home: Yes Safety Concerns: Feels Safe At This Time Childhood Exposure to Second-Hand Smoke: No Diet Comment: regular caffeine: Yes (Coffee x 2 cups per day.) during the past year weight has: remained stable Dental Care, Regularly: No Physical Activity Frequency: Does not Exercise Seatbelt Use: always Sunscreen Use: Yes Assistive Devices: Cane, Denture - Upper, Denture - Lower, Glasses and Walker Review of Systems Review of Systems: The patient denies chest pain, palpitations, shortness of breath, dyspnea on exertion, cough, lower extremity swelling, sore throat, fevers, chills, sweats, nausea, vomiting, diarrhea , constipation, abdominal pain, pelvic pain, blood in urine or stool, dysuria, urinary frequency or urgency, lightheadedness, dizziness, headache, memory loss, loss of consciousness, rash, imbalance, focal weakness, numbness or tingling in arms or legs, generalized arthralgias or myalgias, back or neck pain, or night sweats. The review of systems is otherwise negative other than for that already noted above, and at least 10 systems have been reviewed. Physical Exam Physical Exam: The patient is awake, alert and oriented 3, well developed and well nourished, normocephalic and atraumatic, lying in bed and in no acute distress. HEENT--PERRL, EOMI, mucous membranes and oropharynx normal. Neck--supple. No JVD. No bruits. Thyroid normal, trachea midline, no adenopathy. Heart--normal S1 and S2. No murmurs, rubs or gallops. Lungs--clear bilaterally, no respiratory distress, no accessory muscle use. Abdomen--normal bowel sounds and soft. Nontender. Nondistended, no hernias or masses, no organomegaly. Extremities--no cyanosis or clubbing. No edema. Dermatologic--normal skin turgor, normal color, no abnormal lymph nodes, no rash. Neurologic--cranial nerves II through XII grossly intact. Rheumatologic--normal range of motion. Psychiatric--normal affect. Results & Data Results & Data ([facility]) Vital Signs (Past 12 Hours) Vital Signs Temp Pulse Pulse Resp BP BP Pulse Ox 04/06/22 03:30 65 18 164/44 H 95 04/06/22 01:21 36.8 C 55 L 18 131/40 L 97 04/05/22 23:30 53 L 18 129/44 L 97 04/05/22 22:16 54 L 18 119/40 L 99 04/05/22 17:10 36.1 C L 55 L 20 115/72 99 O2 Del Method 04/06/22 03:30 Room Air 04/06/22 01:21 Room Air 04/05/22 23:30 Room Air 04/05/22 22:16 Room Air 04/05/22 17:10 Room Air Laboratory Results Laboratory Results WBC 5.35 K/ul (4.8-10.8) 04/05/22 18:45 RBC 2.62 M/uL (4.20-5.40) L 04/05/22 18:45 Hgb 7.6 g/dl (12.0-16.0) L 04/06/22 00:41 Hct 23.3 % (37.0-47.0) L 04/06/22 00:41 MCV 100.8 fL (80.0-100.0) H 04/05/22 18:45 MCH 32.4 pg (25.0-34.0) 04/05/22 18:45 MCHC 32.2 g/dL (32.0-36.0) 04/05/22 18:45 RDW Std Deviation 60.4 fL (36.4-46.3) H 04/05/22 18:45 RDW Coeff of Irasema 16.2 % (11.5-14.5) H 04/05/22 18:45 Plt Count 103 K/uL (130-400) L 04/05/22 18:45 MPV 11.2 fL (9.4-12.4) 04/05/22 18:45 Immature Gran % (Auto) 0.6 % 04/05/22 18:45 Neut % (Auto) 76.8 % 04/05/22 18:45 Lymph % (Auto) 15.3 % 04/05/22 18:45 [place] % (Auto) 4.3 % 04/05/22 18:45 Eos % (Auto) 2.4 % 04/05/22 18:45 Baso % (Auto) 0.6 % 04/05/22 18:45 Neut # (Auto) 4.11 K/uL (1.40-6.50) 04/05/22 18:45 Lymph # (Auto) 0.82 K/uL (1.2-3.4) L 04/05/22 18:45 [place] # (Auto) 0.23 K/uL (0.11-0.59) 04/05/22 18:45 Eos # (Auto) 0.13 K/uL (0-0.50) 04/05/22 18:45 Baso # (Auto) 0.03 K/uL (0-0.2) 04/05/22 18:45 Immature Gran # (Auto) 0.03 K/uL (0.01-0.20) 04/05/22 18:45 PT 11.2 Seconds (9.0-12.0) 04/05/22 18:45 INR 1.1 (0.9-1.1) 04/05/22 18:45 APTT 24.0 Seconds (21.0-31.0) 04/05/22 18:45 PTT Ratio 0.9 04/05/22 18:45 Sodium 140 mmol/L (136-145) 04/05/22 18:45 Potassium 4.7 mmol/L (3.5-5.1) 04/05/22 18:45 Chloride 102 mmol/L (98-107) 04/05/22 18:45 Carbon Dioxide 30 mmol/L (21-32) 04/05/22 18:45 Anion Gap 8 (3-11) 04/05/22 18:45 BUN 59 mg/dl (6-23) H 04/05/22 18:45 Creatinine 3.36 mg/dl (0.6-1.2) H 04/05/22 18:45 Est Cr Clr Drug Dosing 9.8 ml/min 04/05/22 18:45 Est GFR ( Amer) 13.8 ml/min 04/05/22 18:45 Est GFR (Non-Af Amer) 11.9 ml/min 04/05/22 18:45 BUN/Creatinine Ratio 17.6 (10-20) 04/05/22 18:45 Glucose 113 mg/dl (70-99(Fasting)) H 04/05/22 18:45 POC Glucose 110 mg/dl (70-99) H 04/06/22 01:55 Calcium 8.3 mg/dl (8.5-10.1) L 04/05/22 18:45 Total Bilirubin 0.5 mg/dl (0.2-1.0) 04/05/22 18:45 AST 39 U/L (13-39) 04/05/22 18:45 ALT 37 U/L (7-52) 04/05/22 18:45 Alkaline Phosphatase 302 U/L (34-104) H 04/05/22 18:45 Total Protein 5.4 gm/dl (6.0-8.3) L 04/05/22 18:45 Albumin 3.3 gm/dl (3.4-5.0) L 04/05/22 18:45 Globulin 2.1 gm/dl (2.5-4.0) L 04/05/22 18:45 Albumin/Globulin Ratio 1.6 (0.9-2) 04/05/22 18:45 Nasal Screen MRSA (PCR) Negative (Negative) 04/06/22 01:51 SARS-CoV-2, RNA, NAAT NEGATIVE (NEGATIVE) 04/05/22 20:42 Blood Type O Positive 04/05/22 18:45 Antibody Screen NEGATIVE 04/05/22 18:45 Crossmatch See Detail 04/05/22 18:45 Code Status & VTE Plan VTE Prophylaxis Plan VTE Prophylaxis will be ordered: Yes PG Care Time/CCT Total # of Minutes Spent Total Time Spent with Patient: Total time spent is greater than 50% in coordination of care (as documented) at patient's floor/unit and/or counseling patient: Coding Level of Care Code 61825 INT INP/OBS CARE 3/75MIN Diagnoses Neurogenic bladder N31.9 Gastroparesis K31.84 Diabetes mellitus type 2 with complications E11.8 ARMD (age related macular degeneration) H35.30 Secondary hyperparathyroidism of renal origin N25.81 Cirrhosis K74.60 Esophageal varices I85.00 Pulmonary hypertension I27.20 (HFpEF) heart failure with preserved ejection fraction I50.30 History of renal dialysis Z92.89 Vitamin D deficiency E55.9 CAD (coronary artery disease) I25.10 Aortic stenosis I35.0 Anxiety F41.9 Hypothyroidism E03.9 Hyperlipidemia E78.5 Hypertension I10 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 I44.1 Fatty liver K76.0 ESRD on hemodialysis N18.6; Z99.2
[2022-04-06 07:33] LABS: Basophils # (auto) 0.02 K/uL (0-0.2); Basophils % (auto) 0.4 %; Eosinophils # (auto) 0.13 K/uL (0-0.50); Eosinophils % (auto) 2.6 %; Hematocrit (blood only) 26.1 % (37.0-47.0); Hemoglobin 8.4 g/dl (12.0-16.0); Immature Granulocytes # (auto) 0.02 K/uL (0.01-0.20); Immature Granulocytes % (auto) 0.4 %; Lymphocytes # (auto) 0.71 K/uL (1.2-3.4); Lymphocytes % (auto) 14.4 %; Mean Corpuscular Hemoglobin 32.8 pg (25.0-34.0); Mean Corpuscular Hgb Conc 32.2 g/dL (32.0-36.0); Mean Platelet Volume 10.8 fL (9.4-12.4); Monocytes # (auto) 0.22 K/uL (0.11-0.59); Monocytes % (auto) 4.5 %; Neutrophils # (auto) 3.83 K/uL (1.40-6.50); Neutrophils % (auto) 77.7 %; Platelet Count 106 K/uL (130-400); RDW Coefficient of Variation 15.9 % (11.5-14.5); RDW Standard Deviation 60.1 fL (36.4-46.3); Red Blood Count 2.56 M/uL (4.20-5.40); White Blood Count 4.93 K/ul (4.8-10.8)
[2022-04-06 07:57] LABS: INR 1.1 (0.9-1.1); Partial Thromboplastin Ratio 0.9; Partial Thromboplastin Time 25.5 Seconds (21.0-31.0); Prothrombin Time 11.4 Seconds (9.0-12.0)
[2022-04-06] MEDS: INSULIN ASPART PER UNIT SC SCH ×4 (08:54→21:18)
[2022-04-06 09:14] LABS: Estimated Average Glucose 85 mg/dl; Hemoglobin A1C 4.6 % (4.5-5.6)
[2022-04-06] MEDS: PANTOprazole 40 MG in SYRINGE 0 ML IV SCH ×2 (09:17→21:23)
--- NOTE | 2022-04-06 09:37 | Gastrointestinal Consultation ---
Date of Consultation April 06, 2022 Assessment & Plan (1) GIB (gastrointestinal bleeding): (2) Cirrhosis: Plan 1. NPO for now. 2. Push enteroscopy by Dr. Pacheco today for further evaluation. 3. Continue Pantoprazole 40 mg IV BID. 4. Continue supportive care. 5. Further recommendations will be made pending results of testing. Thank you for allowing us to participate in the care of this patient. If you have any questions or concerns, please do not hesitate to contact us. History of Present Illness Reason for Consultation: UGIB Requesting Physician: Dr. Beck Attending Physician: Chris West MD History of Present Illness Sully Ray is a very pleasant 82 y.o. female with a history of cirrhosis and anemia with heme positive stool s/p non-diagnostic EGD and colonoscopy recently sent for VCE evaluation. Report returned yesterday with positive finding of likely distal duodenal bleeding source. Due to this, she was referred to the hospital for admission and further work up. She denies any abdominal pain but endorses dark stools. No n/v or hematemesis. Denies any SOB, MCKEON, chest pain, palpitations or syncope. Hemoglobin on 03/30 was noted to be 6.9. H&H on admission was 8.4/26.1. She has been placed on NPO status and initiated on Pantoprazole 40 mg IV BID. Allergies Allergy/AdvReac Type Severity Reaction Status Date / Time sulfamethoxazole AdvReac Unknown Verified 04/05/22 21:29 [From Bactrim] trimethoprim [From Bactrim] AdvReac Unknown Verified 04/05/22 21:29 Home Medications Medication Instructions Recorded Confirmed Type cholecalciferol (vitamin D3) 25 2,000 unit PO QAM 05/29/18 04/05/22 History mcg (1,000 unit) capsule (Vitamin D3) cranberry fruit concentrate 250 mg 500 mg PO QAM 05/29/18 04/05/22 History chewable tablet (Azo Cranberry) omega-3s 300 ap-duq-fxq-other 1 cap PO QAM 05/29/18 04/05/22 History [id number] oil 1,000 mg capsule ([place]-3 Fish Oil) blood sugar diagnostic (Blood #100 ea 10/12/20 04/05/22 Rx Glucose Test strips) ascorbic acid (vitamin C) 500 mg 1,000 mg PO QAM 11/12/20 04/05/22 History tablet (Vitamin C) cyanocobalamin (vitamin B-12) 1,000 mcg PO QAM 11/12/20 04/05/22 History 1,000 mcg tablet (Vitamin B-12) tamsulosin 0.4 mg capsule (Flomax) 0.4 mg PO QAM 11/12/20 04/05/22 History bethanechol chloride 50 mg tablet 50 mg PO BID #180 tabs 04/19/21 04/05/22 Rx methocarbamol 500 mg tablet 500 mg PO TID PRN muscle spasm #90 08/11/21 04/05/22 Rx tabs atorvastatin 10 mg tablet (Lipitor) 10 mg PO HS #90 tabs 11/18/21 04/05/22 Rx loperamide 2 mg capsule 2 mg PO TID PRN Diarrhea 12/02/21 04/05/22 History (Anti-Diarrheal (loperamide)) Saccharomyces boulardii 250 mg 250 mg PO BID #180 caps 12/05/21 04/05/22 Rx capsule (Florastor) diaper,brief,adult,disposable #150 ea 12/07/21 04/05/22 Rx (Fitted Briefs X-Large) doxazosin 4 mg tablet 4 mg PO QAM 12/07/21 04/05/22 History hydrocortisone 2.5 % topical cream 1 applic MA UD PRN hemorrhoids 12/07/21 04/05/22 History with perineal applicator hydrocortisone acetate 25 mg 25 mg MA QAM PRN Hemorrhoids 12/07/21 04/05/22 History rectal suppository (Anusol-HC) levothyroxine 112 mcg tablet 112 mcg PO QAM 12/07/21 04/05/22 History (Synthroid) linagliptin 5 mg tablet (Tradjenta) 5 mg PO QAM #90 tabs 12/07/21 04/05/22 Rx sucralfate 100 mg/mL oral 1 g (10 mL) PO QID #200 mL 12/14/21 04/05/22 Rx suspension (Carafate) tramadol 50 mg tablet (Ultram) 50 mg PO BID PRN pain #60 tabs 12/31/21 04/05/22 Rx triamcinolone acetonide 0.05 % 1 applic topical BID #430 grams 01/18/22 04/05/22 Rx topical ointment amlodipine 10 mg tablet (Norvasc) 10 mg PO QAM #90 tabs 02/23/22 04/05/22 Rx pantoprazole 40 mg tablet,delayed 40 mg PO BID #60 tabs 02/28/22 04/05/22 Rx release (Protonix) ropinirole 0.5 mg tablet 0.5 - 1.5 mg PO UD #360 tabs 03/07/22 04/05/22 Rx furosemide 80 mg tablet 80 mg PO BID 03/20/22 04/05/22 History sevelamer carbonate 800 mg tablet 800 mg PO TID 03/20/22 04/05/22 History vitamin E 400 unit tablet 400 mg PO QAM 03/20/22 04/05/22 History famotidine 40 mg tablet 40 mg PO BID #60 tabs 03/21/22 04/05/22 Rx calcium carbonate 500 mg calcium 0 mg PO QAM 04/05/22 04/05/22 History (1,250 mg) tablet Patient History Medical History Acute kidney injury superimposed on chronic kidney disease Anemia of chronic disease Anxiety Aortic stenosis CAD (coronary artery disease) Chronic diastolic heart failure Chronic hyponatremia Diabetes mellitus, type 2 Diabetic retinopathy Elevated troponin Essential tremor MINOR IN HAND Fatty liver First degree AV block GERD without esophagitis Hearing deficit no hearing aids Hiatal hernia History of CVA (cerebrovascular accident) (2018) ~3-4 years ago, woke up with weakness in her rt hand; L lacunar infarct; previously on plavix>no residual effects History of GI bleed hx 08/2021, given transfusion-per medical record History of renal dialysis tuesdays, , and saturdays currently; catheter in pt's neck Hx of atrial fibrillation, no current medication per medical report Hyperlipidemia Hypertension Hypothyroidism 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 Osteoarthritis Poor historian RBBB f/u dr. aguirre Recurrent UTI Resistant hypertension Restless legs Urinary urgency Venous insufficiency Weakness Surgical History H/O varicose vein ligation History of back surgery (04/2010) X 2 History of bladder suspension procedure X 2 History of colonoscopy History of esophagogastroduodenoscopy (EGD) History of tooth extraction Hx of cardiac catheterization 08/2021, [place] w/Dr. Moura for increased cardiac pressures; no stents S/P carpal tunnel release RT/LEFT S/P hysterectomy [place]RI[place] S/P knee replacement RT/LEFT S/P pericardiocentesis 08/2021, [place], w/dr moura S/P trigger finger release Family History Father Alcohol abuse Heart disease Myocardial infarction Hypertension Sister Pancreatic cancer Diabetes Breast cancer Brother Diabetes Alcohol abuse Stroke Other Cancer No family history of adverse response to anesthesia Denies family history of Ovarian cancer Prostate cancer Colorectal cancer Social History Smoking Status: Never smoker Second Hand Exposure: Yes (long time ago, 40+ years ago); Hx Alcohol Use: No Hx Substance Use: No Preferred Language: Nepali Communication Ability: Effective Visual Impairment: No Limitations Hearing Ability: Normal [place] Required: No Beliefs That Will Affect Care: None marital status: Single Current Living Situation: Alone current occupational status: retired How many Children do You have: 2 Other Information That Helps Us Care for You: No Feels Safe at Home: Yes Safety Concerns: Feels Safe At This Time Childhood Exposure to Second-Hand Smoke: No Diet Comment: regular caffeine: Yes (Coffee x 2 cups per day.) during the past year weight has: remained stable Dental Care, Regularly: No Physical Activity Frequency: Does not Exercise Seatbelt Use: always Sunscreen Use: Yes Assistive Devices: Cane, Denture - Upper, Denture - Lower, Glasses and Walker Review of Systems Constitutional: + fatigue; no fever and no chills Respiratory: as per Subjective / HPI Cardiovascular: as per Subjective / HPI Gastrointestinal: as per Subjective / HPI Physical Exam Constitutional: WD/WN, vitals as above Eyes: EOM intact bilaterally Neck: normal visual inspection Respiratory: normal respiratory effort, lungs clear to auscultation Cardiovascular: Rate/Rhythm: regular rate and regular rhythm Heart Sounds: + murmur Gastrointestinal (Abdomen): normal bowel sounds, soft, nontender, no hepatosplenomegaly Skin: + pallor Psychiatric: A+Ox3, euthymic affect Results & Data ([facility]) Vital Signs (Past 12 Hours) Vital Signs Temp Pulse Pulse Resp BP BP Pulse Ox 04/06/22 07:30 36.4 C L 60 22 124/66 99 04/06/22 05:25 36.7 C 60 18 150/71 H 98 04/06/22 05:02 04/06/22 03:30 65 18 164/44 H 95 04/06/22 01:21 36.8 C 55 L 18 131/40 L 97 04/05/22 23:30 53 L 18 129/44 L 97 04/05/22 22:16 54 L 18 119/40 L 99 O2 Del Method 04/06/22 07:30 Room Air 04/06/22 05:25 Room Air 04/06/22 05:02 Room Air 04/06/22 03:30 Room Air 04/06/22 01:21 Room Air 04/05/22 23:30 Room Air 04/05/22 22:16 Room Air Diagnostic Findings Laboratory Results WBC 4.93 K/ul (4.8-10.8) 04/06/22 06:59 RBC 2.56 M/uL (4.20-5.40) L 04/06/22 06:59 Hgb 8.4 g/dl (12.0-16.0) L 04/06/22 06:59 Hct 26.1 % (37.0-47.0) L 04/06/22 06:59 MCV 102.0 fL (80.0-100.0) H 04/06/22 06:59 MCH 32.8 pg (25.0-34.0) 04/06/22 06:59 MCHC 32.2 g/dL (32.0-36.0) 04/06/22 06:59 RDW Std Deviation 60.1 fL (36.4-46.3) H 04/06/22 06:59 RDW Coeff of Irasema 15.9 % (11.5-14.5) H 04/06/22 06:59 Plt Count 106 K/uL (130-400) L 04/06/22 06:59 MPV 10.8 fL (9.4-12.4) 04/06/22 06:59 Immature Gran % (Auto) 0.4 % 04/06/22 06:59 Neut % (Auto) 77.7 % 04/06/22 06:59 Lymph % (Auto) 14.4 % 04/06/22 06:59 Luna % (Auto) 4.5 % 04/06/22 06:59 Eos % (Auto) 2.6 % 04/06/22 06:59 Baso % (Auto) 0.4 % 04/06/22 06:59 Neut # (Auto) 3.83 K/uL (1.40-6.50) 04/06/22 06:59 Lymph # (Auto) 0.71 K/uL (1.2-3.4) L 04/06/22 06:59 Luna # (Auto) 0.22 K/uL (0.11-0.59) 04/06/22 06:59 Eos # (Auto) 0.13 K/uL (0-0.50) 04/06/22 06:59 Baso # (Auto) 0.02 K/uL (0-0.2) 04/06/22 06:59 Immature Gran # (Auto) 0.02 K/uL (0.01-0.20) 04/06/22 06:59 PT 11.4 Seconds (9.0-12.0) 04/06/22 06:59 INR 1.1 (0.9-1.1) 04/06/22 06:59 APTT 25.5 Seconds (21.0-31.0) 04/06/22 06:59 PTT Ratio 0.9 04/06/22 06:59 Sodium 140 mmol/L (136-145) 04/05/22 18:45 Potassium 4.7 mmol/L (3.5-5.1) 04/05/22 18:45 Chloride 102 mmol/L (98-107) 04/05/22 18:45 Carbon Dioxide 30 mmol/L (21-32) 04/05/22 18:45 Anion Gap 8 (3-11) 04/05/22 18:45 BUN 59 mg/dl (6-23) H 04/05/22 18:45 Creatinine 3.36 mg/dl (0.6-1.2) H 04/05/22 18:45 Est Cr Clr Drug Dosing 9.8 ml/min 04/05/22 18:45 Est GFR ( Amer) 13.8 ml/min 04/05/22 18:45 Est GFR (Non-Af Amer) 11.9 ml/min 04/05/22 18:45 BUN/Creatinine Ratio 17.6 (10-20) 04/05/22 18:45 Glucose 113 mg/dl (70-99(Fasting)) H 04/05/22 18:45 POC Glucose 116 mg/dl (70-99) H 04/06/22 07:47 Estimat Average Glucose 85 mg/dl 04/06/22 06:59 Hemoglobin A1c 4.6 % (4.5-5.6) 04/06/22 06:59 Calcium 8.3 mg/dl (8.5-10.1) L 04/05/22 18:45 Total Bilirubin 0.5 mg/dl (0.2-1.0) 04/05/22 18:45 AST 39 U/L (13-39) 04/05/22 18:45 ALT 37 U/L (7-52) 04/05/22 18:45 Alkaline Phosphatase 302 U/L (34-104) H 04/05/22 18:45 Total Protein 5.4 gm/dl (6.0-8.3) L 04/05/22 18:45 Albumin 3.3 gm/dl (3.4-5.0) L 04/05/22 18:45 Globulin 2.1 gm/dl (2.5-4.0) L 04/05/22 18:45 Albumin/Globulin Ratio 1.6 (0.9-2) 04/05/22 18:45 Nasal Screen MRSA (PCR) Negative (Negative) 04/06/22 01:51 SARS-CoV-2, RNA, NAAT NEGATIVE (NEGATIVE) 04/05/22 20:42 Blood Type O Positive 04/05/22 18:45 Antibody Screen NEGATIVE 04/05/22 18:45 Crossmatch See Detail 04/05/22 18:45 PG Care Time/CCT Total # of Minutes Spent Total Time Spent with Patient: Total time spent is greater than 50% in coordination of care (as documented) at patient's floor/unit and/or counseling patient: Coding Level of Care Code 60149 INT INP/OBS CARE 3/75MIN Diagnoses GIB (gastrointestinal bleeding) K92.1 GI bleed type/associated pathology: melena Cirrhosis K74.60 (1) GIB (gastrointestinal bleeding) GI bleed type/associated pathology: melena Qualified Code(s): K92.1 - Melena
--- NOTE | 2022-04-06 09:41 | Hospitalist Progress Note ---
Date of Service April 06, 2022 Assessment & Plan (1) Anemia: Plan: Acute blood loss anemia with significant risk the patient. Suspect upper GI bleed Surveillance of anemia for need of transfusion Gastroenterology consultation for possible consideration of invasive procedure Protonix 40 mg IV every 12 (2) History of renal dialysis: Plan: Chronic stable condition managed with dialysis consulting without any nephrology to continue inpatient dialysis. chronic secondary hyperparathyroidism, continue medicaiotns to prevent (3) (HFpEF) heart failure with preserved ejection fraction: Plan: Patient with chronic heart failure preserved ejection fraction volume status managed by dialysis Chronically has pulmonary hypertesions chronic Aortic stenosis and CAD chronic mobitz 1 block (4) Diabetes mellitus type 2 with complications: Plan: Patient typically is on linagliptin because she is n.p.o. this will be held subsequently necessitating institution of basal bolus insulin. We will need to monitor for hypoglycemia has chronic complications of gastroparesis (5) Neurogenic bladder: (6) ARMD (age related macular degeneration): (7) Cirrhosis: Plan: Pt has known esophageal varices that may be responsible for Acute blood loss anemia, this can be chronic unstable (8) Vitamin D deficiency: (9) Fatty liver: Admission and Anticipated Discharge Date Admission Date: April 05, 2022 Subjective pt is doing well post procedure, she does not remember much of results Later in the afternoon the patient's daughter present the bedside we went over her case results and findings from the EGD. They both expressed an understanding Physical Exam Physical Exam: Awake alert appropriate. Patient does not have significant shortness of breath. Lungs are clear. Abdomen NABS soft she is nontender in any way. Her extremities are without edema. Results & Data Results & Data ([facility]) Vital Signs (Past 12 Hours) Vital Signs Temp Pulse Pulse Resp BP BP Pulse Ox 04/06/22 07:30 97.5 F L 60 22 124/66 99 04/06/22 05:25 98.1 F 60 18 150/71 H 98 04/06/22 05:02 04/06/22 03:30 65 18 164/44 H 95 04/06/22 01:21 98.2 F 55 L 18 131/40 L 97 04/05/22 23:30 53 L 18 129/44 L 97 04/05/22 22:16 54 L 18 119/40 L 99 O2 Del Method 04/06/22 07:30 Room Air 04/06/22 05:25 Room Air 04/06/22 05:02 Room Air 04/06/22 03:30 Room Air 04/06/22 01:21 Room Air 04/05/22 23:30 Room Air 04/05/22 22:16 Room Air Diagnostic Findings Reviewed CBC Reviewed coagulation studies PG Care Time/CCT Total # of Minutes Spent Total Time Spent with Patient: Total time spent is greater than 50% in coordination of care (as documented) at patient's floor/unit and/or counseling patient: Coding Level of Care Code None Diagnoses Anemia D64.9 Anemia type: unspecified type History of renal dialysis Z92.89 (HFpEF) heart failure with preserved ejection fraction I50.30 Diabetes mellitus type 2 with complications E11.8 Neurogenic bladder N31.9 ARMD (age related macular degeneration) H35.30 Cirrhosis K74.60 Vitamin D deficiency E55.9 Fatty liver K76.0 (1) Anemia Anemia type: unspecified type Qualified Code(s): D64.9 - Anemia, unspecified
--- NOTE | 2022-04-06 10:19 | Anesthesiology Consultation ---
Date of Service April 06, 2022 Assessment & Plan (1) Encounter for pre-operative examination: Chart Review Chart Review: Acceptable Risk for Surgery, Patient NOT seen in Pre Admission Testing and entry level manager initiated Consults Requested none History Surgery Operation Date: 04/06/22 16:30 Proposed Procedures p Esophagogastroduodenoscopy Dr. Pacheco - [place] Pacheco MD Height/Weight Height: 4 ft 9 in Weight: 65.9 kg Allergies Allergy/AdvReac Type Severity Reaction Status Date / Time sulfamethoxazole AdvReac Unknown Verified 04/05/22 21:29 [From Bactrim] trimethoprim [From Bactrim] AdvReac Unknown Verified 04/05/22 21:29 Medications Home Medications Medication Instructions Recorded Confirmed Last Taken cholecalciferol (vitamin D3) 25 2,000 unit PO QAM 05/29/18 04/05/22 12/11/21 mcg (1,000 unit) capsule (Vitamin D3) cranberry fruit concentrate 250 mg 500 mg PO QAM 05/29/18 04/05/22 12/11/21 chewable tablet (Azo Cranberry) omega-3s 300 ps-elz-skr-other 1 cap PO QAM 05/29/18 04/05/22 12/11/21 [id number] oil 1,000 mg capsule ([place]-3 Fish Oil) blood sugar diagnostic (Blood #100 ea 10/12/20 04/05/22 Unknown Glucose Test strips) ascorbic acid (vitamin C) 500 mg 1,000 mg PO QAM 11/12/20 04/05/22 12/11/21 tablet (Vitamin C) cyanocobalamin (vitamin B-12) 1,000 mcg PO QAM 11/12/20 04/05/22 12/11/21 1,000 mcg tablet (Vitamin B-12) tamsulosin 0.4 mg capsule (Flomax) 0.4 mg PO QAM 11/12/20 04/05/22 12/11/21 bethanechol chloride 50 mg tablet 50 mg PO BID #180 tabs 04/19/21 04/05/22 12/11/21 methocarbamol 500 mg tablet 500 mg PO TID PRN muscle spasm #90 08/11/21 04/05/22 Unknown tabs atorvastatin 10 mg tablet (Lipitor) 10 mg PO HS #90 tabs 09/04/05/22 12/11/21 loperamide 2 mg capsule 2 mg PO TID PRN Diarrhea 12/02/21 04/05/22 Unknown (Anti-Diarrheal (loperamide)) Saccharomyces boulardii 250 mg 250 mg PO BID #180 caps 12/05/21 04/05/22 capsule (Florastor) diaper,brief,adult,disposable #150 ea 12/07/21 04/05/22 Unknown (Fitted Briefs X-Large) doxazosin 4 mg tablet 4 mg PO QAM 12/07/21 04/05/22 12/12/21 04:00 hydrocortisone 2.5 % topical cream [address] UD PRN hemorrhoids 12/07/21 04/05/22 Unknown with perineal applicator hydrocortisone acetate [address] QAM PRN Hemorrhoids 12/07/21 04/05/22 Un known rectal suppository (Anusol-HC) levothyroxine 112 mcg tablet 112 mcg PO QAM 12/07/21 04/05/22 12/12/21 04:00 (Synthroid) linagliptin 5 mg tablet (Tradjenta) 5 mg PO QAM #90 tabs 12/07/21 04/05/22 12/11/21 sucralfate 100 mg/mL oral 1 g (10 mL) PO QID #200 mL 12/14/21 04/05/22 Unknown suspension (Carafate) tramadol 50 mg tablet (Ultram) 50 mg PO BID PRN pain #60 tabs 12/31/21 04/05/22 Unknown triamcinolone acetonide 0.05 % 1 applic topical BID #430 grams 01/18/22 04/05/22 Unknown topical ointment amlodipine 10 mg tablet (Norvasc) 10 mg PO QAM #90 tabs 02/23/22 04/05/22 Unknown pantoprazole 40 mg tablet,delayed 40 mg PO BID #60 tabs 02/28/22 04/05/22 Unkno wn release (Protonix) ropinirole 0.5 mg tablet 0.5 - 1.5 mg PO UD #360 tabs 03/07/22 04/05/22 Unknown furosemide 80 mg tablet 80 mg PO BID 03/20/22 04/05/22 Unknown sevelamer carbonate 800 mg tablet 800 mg PO TID 03/20/22 04/05/22 Unknown vitamin E 400 unit tablet 400 mg PO QAM 03/20/22 04/05/22 Unknown famotidine 40 mg tablet 40 mg PO BID #60 tabs 03/21/22 04/05/22 Unknown calcium carbonate 500 mg calcium 0 mg PO QAM 04/05/22 04/05/22 Unknown (1,250 mg) tablet Active Medications Generic Name Dose Route Start Last Admin Trade Name Etta PRN Reason Stop Dose Admin Pantoprazole Sodium 40 mg/ 10 mls @ 5 mls/min 04/06/22 09:00 04/06/22 09:17 Syringe IV 05/06/22 08:59 5 mls/min BID [place] Administration Insulin Aspart 0 units 04/06/22 07:30 04/06/22 08:54 Insulin Aspart Per Unit SC 05/06/22 07:29 Not Given ACHS [place] Past Medical History Medical History (Updated 04/06/22 @ 10:25 by Lenny Fritz MD) Acute kidney injury superimposed on chronic kidney disease Anemia of chronic disease Anxiety Aortic stenosis CAD (coronary artery disease) Chronic diastolic heart failure Chronic hyponatremia Diabetes mellitus, type 2 Diabetic retinopathy Elevated troponin Encounter for pre-operative examination Essential tremor MINOR IN HAND Fatty liver First degree AV block GERD without esophagitis Hearing deficit no hearing aids Hiatal hernia History of CVA (cerebrovascular accident) (2019) ~3-4 years ago, woke up with weakness in her rt hand; L lacunar infarct; previously on plavix>no residual effects History of GI bleed hx 08/2021, given transfusion-per medical record History of renal dialysis tuesdays, , and saturdays currently; catheter in pt's neck Hx of atrial fibrillation, no current medication per medical report Hyperlipidemia Hypertension Hypothyroidism 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 Osteoarthritis Poor historian RBBB f/u dr. aguirre Recurrent UTI Resistant hypertension Restless legs Urinary urgency Venous insufficiency Weakness Past Family History Family History Father Alcohol abuse Heart disease Myocardial infarction Hypertension Sister Pancreatic cancer Diabetes Breast cancer Brother Diabetes Alcohol abuse Stroke Other Cancer No family history of adverse response to anesthesia Denies family history of Ovarian cancer Prostate cancer Colorectal cancer Past Surgical History Surgical History H/O varicose vein ligation History of back surgery (04/2010) X 2 History of bladder suspension procedure X 2 History of colonoscopy History of esophagogastroduodenoscopy (EGD) History of tooth extraction Hx of cardiac catheterization 08/2021, [facility] w/Dr. Moura for increased cardiac pressures; no stents S/P carpal tunnel release RT/LEFT S/P hysterectomy [place]RI[place] S/P knee replacement RT/LEFT S/P pericardiocentesis 08/2021, [place], w/dr moura S/P trigger finger release Social History Smoking Status: Never smoker Hx Alcohol Use: No Hx Substance Use: No substance use type: does not use Physical Exam Vital Signs Last Vital Signs Temp 36.4 C L 04/06/22 07:30 Pulse 60 04/06/22 07:30 Resp 22 04/06/22 07:30 BP 124/66 04/06/22 07:30 Pulse Ox 99 04/06/22 07:30 O2 Del Method 04/06/22 07:30 Testing Laboratory Results 04/06/22 06:59 PT 11.4 Seconds (9.0-12.0) 04/06/22 06:59 INR 1.1 (0.9-1.1) 04/06/22 06:59 APTT 25.5 Seconds (21.0-31.0) 04/06/22 06:59 Hemoglobin A1c 4.6 % (4.5-5.6) 04/06/22 06:59 Blood Type O Positive 04/05/22 18:45 Antibody Screen NEGATIVE 04/05/22 18:45 04/06/22 04/06/22 07:47 01:55 POC Glucose 116 H 110 H Electrocardiogram Date: 04/05/2205-Apr-2022 18:45:03 [facility] [place]-EDSTAT ROUTINE RETRIEVAL Atrial fibrillation with slow ventricular response Right bundle branch block Abnormal ECG When compared with ECG of 17-AUG-2021 15:29, Right bundle branch block is now Present Chest X-Ray Date: 08/17/21 XR chest 1V portable CLINICAL HISTORY: pericardiocentesis. Evaluate for ptx. COMPARISON STUDY: 08/16/2021 TECHNIQUE: 1 view of the chest FINDINGS: Single frontal view of the chest demonstrates the heart to again be enlarged. There has been interval development of central vascular congestion. No peripheral interstitial edema is seen. There is again left pleural effusion with left lower lobe atelectasis/collapse. Small right pleural effusion is also present. There is no evidence for confluent alveolar opacity. There is no acute osseous pathology. IMPRESSION: 1. Interval development of central vascular congestion with no evidence for pneumothorax. 2. There are again bilateral pleural effusions, left greater than right with left lower lobe atelectasis/collapse. Echocardiogram Date: 01/12/22 EF: 60-65% LV Function: normal RWMA: + none Valvular Disease: + (moderate to severe), + MS (moderate) and + MR (mild)
[2022-04-06] MEDS ORDERED: LIDOCAINE 2% MPF LOCAL 5 ML VIAL INFIL ONE (10:35)
[2022-04-06] MEDS ORDERED: ONDANSETRON INJ 2 MG/ML 2 ML VIAL ONE (10:35)
[2022-04-06] MEDS ORDERED: PROPOFOL IV EMULSION 10 MG/ML 20 ML VIAL IV ONE (10:35)
--- NOTE | 2022-04-06 10:36 | Nephrology Consultation ---
Date of Consultation April 06, 2022 Assessment & Plan (1) ESRD on hemodialysis: Outpatient Rx TTS 180 optiflux, Qb 350 Qd 800, 3K bath. EDW 65.5 kg (post 65 kg on Sunday). HD via RIJ TDC. BP and volume status are acceptable. Electrolytes controlled. EGD is planned for this AM. Will hold HD now and plan treatment once EGD completed, likely tomorrow. Medications are appropriately dosed for IHD. Continue furosemide to encourage urine output. Renal diet. (2) Acute blood loss anemia: Hgb 8.4 on 04/04 at dialysis. Melena reported. GI consultation. EGD planned. (3) Secondary hyperparathyroidism of renal origin: Hold Sevelamer while NPO. History of Present Illness Reason for Consultation: ESRD on HD Requesting Physician: Chris West MD Attending Physician: Chris West MD History of Present Illness Mrs. Sully Faria is a 82 year-old female with ESRD maintained on TTS HD at [facility] under the care of Dr. Will. Sully completed her last treatment on Sunday without complications. She has been tolerating dialysis well. IDWG typically <1 L. She continues to make a good amount of urine. CKD attributed to history of hypertension, DKD, and renovascular disease. Sully started HD dur ing a hospitalization at [facility] in August 2022. She dialyzes via a RIJ TDC. Medical history is notable for multiple episodes of MICHAEL hemodynamically mediated kidney injury related to acute anemia. Sully was hospitalized at [facility] in August with symptomatic anemia requiring PRBC transfusion support. GI blood loss attributed to AVM by history. Medical history is also notable for non-obstructive coronary artery disease, HFpEF, severe aortic stenosis, atrial fibrillation, chronic anemia, imaging evidence of cirrhosis, NAFLD, hypertension, diabetes mellitus type II, neurogenic bladder, OA/DJD, and hypothyroidism. She presented to [facility] yesterday with weakness and acute blood loss anemia with melena. EGD is planned for this morning. She was resting comfortably in bed at the time of my assessment. Allergies Allergy/AdvReac Type Severity Reaction Status Date / Time sulfamethoxazole AdvReac Unknown Verified 04/05/22 21:29 [From Bactrim] trimethoprim [From Bactrim] AdvReac Unknown Verified 04/05/22 21:29 Home Medications Medication Instructions Recorded Confirmed Type cholecalciferol (vitamin D3) 25 2,000 unit PO QAM 05/29/18 04/05/22 History mcg (1,000 unit) capsule (Vitamin D3) cranberry fruit concentrate 250 mg 500 mg PO QAM 05/29/18 04/05/22 History chewable tablet (Azo Cranberry) omega-3s 300 fn-tvt-pal-other 1 cap PO QAM 05/29/18 04/05/22 History [id number] oil 1,000 mg capsule (Pierce-3 Fish Oil) blood sugar diagnostic (Blood #100 ea 10/12/20 04/05/22 Rx Glucose Test strips) ascorbic acid (vitamin C) 500 mg 1,000 mg PO QAM 11/12/20 04/05/22 History tablet (Vitamin C) cyanocobalamin (vitamin B-12) 1,000 mcg PO QAM 11/12/20 04/05/22 History 1,000 mcg tablet (Vitamin B-12) tamsulosin 0.4 mg capsule (Flomax) 0.4 mg PO QAM 11/12/20 04/05/22 History bethanechol chloride 50 mg tablet 50 mg PO BID #180 tabs 04/19/21 04/05/22 Rx methocarbamol 500 mg tablet 500 mg PO TID PRN muscle spasm #90 08/11/21 04/05/22 Rx tabs atorvastatin 10 mg tablet (Lipitor) 10 mg PO HS #90 tabs 11/18/21 04/05/22 Rx loperamide 2 mg capsule 2 mg PO TID PRN Diarrhea 12/02/21 04/05/22 History (Anti-Diarrheal (loperamide)) Saccharomyces boulardii 250 mg 250 mg PO BID #180 caps 12/05/21 04/05/22 Rx capsule (Florastor) diaper,brief,adult,disposable #150 ea 12/07/21 04/05/22 Rx (Fitted Briefs X-Large) doxazosin 4 mg tablet 4 mg PO QAM 12/07/21 04/05/22 History hydrocortisone 2.5 % topical cream 1 applic NM UD PRN hemorrhoids 12/07/21 04/05/22 History with perineal applicator hydrocortisone acetate 25 mg 25 mg NM QAM PRN Hemorrhoids 12/07/21 04/05/22 History rectal suppository (Anusol-HC) levothyroxine 112 mcg tablet 112 mcg PO QAM 12/07/21 04/05/22 History (Synthroid) linagliptin 5 mg tablet (Tradjenta) 5 mg PO QAM #90 tabs 12/07/21 04/05/22 Rx sucralfate 100 mg/mL oral 1 g (10 mL) PO QID #200 mL 12/14/21 04/05/22 Rx suspension (Carafate) tramadol 50 mg tablet (Ultram) 50 mg PO BID PRN pain #60 tabs 12/31/21 04/05/22 Rx triamcinolone acetonide 0.05 % 1 applic topical BID #430 grams 01/18/22 04/05/22 Rx topical ointment amlodipine 10 mg tablet (Norvasc) 10 mg PO QAM #90 tabs 02/23/22 04/05/22 Rx pantoprazole 40 mg tablet,delayed 40 mg PO BID #60 tabs 02/28/22 04/05/22 Rx release (Protonix) ropinirole 0.5 mg tablet 0.5 - 1.5 mg PO UD #360 tabs 03/07/22 04/05/22 Rx furosemide 80 mg tablet 80 mg PO BID 03/20/22 04/05/22 History sevelamer carbonate 800 mg tablet 800 mg PO TID 03/20/22 04/05/22 History vitamin E 400 unit tablet 400 mg PO QAM 03/20/22 04/05/22 History famotidine 40 mg tablet 40 mg PO BID #60 tabs 03/21/22 04/05/22 Rx calcium carbonate 500 mg calcium 0 mg PO QAM 04/05/22 04/05/22 History (1,250 mg) tablet Patient History Medical History Acute kidney injury superimposed on chronic kidney disease Anemia of chronic disease Anxiety Aortic stenosis CAD (coronary artery disease) Chronic diastolic heart failure Chronic hyponatremia Diabetes mellitus, type 2 Diabetic retinopathy Elevated troponin Encounter for pre-operative examination Essential tremor MINOR IN HAND Fatty liver First degree AV block GERD without esophagitis Hearing deficit no hearing aids Hiatal hernia History of CVA (cerebrovascular accident) (2018) ~3-4 years ago, woke up with weakness in her rt hand; L lacunar infarct; previously on plavix>no residual effects History of GI bleed hx 08/2021, given transfusion-per medical record History of renal dialysis tuesdays, , and saturdays currently; catheter in pt's neck Hx of atrial fibrillation, no current medication per medical report Hyperlipidemia Hypertension Hypothyroidism 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 Osteoarthritis Poor historian RBBB f/u dr. aguirre Recurrent UTI Resistant hypertension Restless legs Urinary urgency Venous insufficiency Weakness Surgical History H/O varicose vein ligation History of back surgery (04/2010) X 2 History of bladder suspension procedure X 2 History of colonoscopy History of esophagogastroduodenoscopy (EGD) History of tooth extraction Hx of cardiac catheterization 08/2021, [place] w/Dr. Moura for increased cardiac pressures; no stents S/P carpal tunnel release RT/LEFT S/P hysterectomy ANDRIA S/P knee replacement RT/LEFT S/P pericardiocentesis 08/2021, [place], w/dr moura S/P trigger finger release Family History Father Alcohol abuse Heart disease Myocardial infarction Hypertension Sister Pancreatic cancer Diabetes Breast cancer Brother Diabetes Alcohol abuse Stroke Other Cancer No family history of adverse response to anesthesia Denies family history of Ovarian cancer Prostate cancer Colorectal cancer Social History Smoking Status: Never smoker Second Hand Exposure: Yes (long time ago, 40+ years ago); Hx Alcohol Use: No Hx Substance Use: No Preferred Language: Honduran Communication Ability: Effective Visual Impairment: No Limitations Hearing Ability: Normal 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 Beliefs That Will Affect Care: None marital status: Single Current Living Situation: Alone current occupational status: retired How many Children do You have: 2 Other Information That Helps Us Care for You: No Feels Safe at Home: Yes Safety Concerns: Feels Safe At This Time Childhood Exposure to Second-Hand Smoke: No Diet Comment: regular caffeine: Yes (Coffee x 2 cups per day.) during the past year weight has: remained stable Dental Care, Regularly: No Physical Activity Frequency: Does not Exercise Seatbelt Use: always Sunscreen Use: Yes Assistive Devices: Cane, Denture - Upper, Denture - Lower, Glasses and Walker Review of Systems Review of Systems: All systems reviewed & are unremarkable except as noted in HPI & below Physical Exam Constitutional: well developed; no acute distress Eyes: no scleral abnormality and no corneal abnormality Neck: normal visual inspection and trachea midline Respiratory: normal respiratory effort Auscultation: lungs clear to auscultation bilaterally Cardiovascular: Rate/Rhythm: regular rate Heart Sounds: normal S1 and normal S2 Extremities: + pedal edema and + AV fistula Musculoskeletal: Extremities: no cyanosis and no clubbing Skin: + turgor decreased; no ecchymosis Neurologic: Motor/Sensory: no tremor and no asterixis Psychiatric: Orientation: alert and oriented x 3 Results & Data ([facility]) Vital Signs (Past 12 Hours) Vital Signs Temp Pulse Resp BP Pulse Ox O2 Del Method 04/06/22 07:30 36.4 C L 60 22 124/66 99 Room Air 04/06/22 05:25 36.7 C 60 18 150/71 H 98 Room Air 04/06/22 05:02 Room Air 04/06/22 03:30 65 18 164/44 H 95 Room Air 04/06/22 01:21 36.8 C 55 L 18 131/40 L 97 Room Air 04/05/22 23:30 53 L 18 129/44 L 97 Room Air Laboratory Results Laboratory Results - last 24 hr 04/05/22 04/05/22 04/05/22 18:45 18:45 18:45 WBC 5.35 RBC 2.62 L Hgb 8.5 L Hct 26.4 L MCV 100.8 H MCH 32.4 MCHC 32.2 RDW Std Deviation 60.4 H RDW Coeff of Irasema 16.2 H Plt Count 103 L MPV 11.2 Immature Gran % (Auto) 0.6 Neut % (Auto) 76.8 Lymph % (Auto) 15.3 Starke % (Auto) 4.3 Eos % (Auto) 2.4 Baso % (Auto) 0.6 Neut # (Auto) 4.11 Lymph # (Auto) 0.82 L Starke # (Auto) 0.23 Eos # (Auto) 0.13 Baso # (Auto) 0.03 Immature Gran # (Auto) 0.03 PT 11.2 INR 1.1 APTT 24.0 PTT Ratio 0.9 Sodium Potassium Chloride Carbon Dioxide Anion Gap BUN Creatinine Est Cr Clr Drug Dosing Est GFR ( Amer) Est GFR (Non-Af Amer) BUN/Creatinine Ratio Glucose POC Glucose Estimat Average Glucose Hemoglobin A1c Calcium Magnesium Total Bilirubin AST ALT Alkaline Phosphatase Total Protein Albumin Globulin Albumin/Globulin Ratio Nasal Screen MRSA (PCR) SARS-CoV-2, RNA, NAAT Blood Type O Positive Antibody Screen NEGATIVE Crossmatch See Detail 04/05/22 04/05/22 04/06/22 18:45 20:42 00:41 WBC RBC Hgb 7.6 L Hct 23.3 L MCV MCH MCHC RDW Std Deviation RDW Coeff of Irasema Plt Count MPV Immature Gran % (Auto) Neut % (Auto) Lymph % (Auto) Starke % (Auto) Eos % (Auto) Baso % (Auto) Neut # (Auto) Lymph # (Auto) Starke # (Auto) Eos # (Auto) Baso # (Auto) Immature Gran # (Auto) PT INR APTT PTT Ratio Sodium 140 Potassium 4.7 Chloride 102 Carbon Dioxide 30 Anion Gap 8 BUN 59 H Creatinine 3.36 H Est Cr Clr Drug Dosing 9.8 Est GFR ( Amer) 13.8 Est GFR (Non-Af Amer) 11.9 BUN/Creatinine Ratio 17.6 Glucose 113 H POC Glucose Estimat Average Glucose Hemoglobin A1c Calcium 8.3 L Magnesium Total Bilirubin 0.5 AST 39 ALT 37 Alkaline Phosphatase 302 H Total Protein 5.4 L Albumin 3.3 L Globulin 2.1 L Albumin/Globulin Ratio 1.6 Nasal Screen MRSA (PCR) SARS-CoV-2, RNA, NAAT NEGATIVE Blood Type Antibody Screen Crossmatch 04/06/22 04/06/22 04/06/22 01:51 01:55 06:59 WBC 4.93 RBC 2.56 L Hgb 8.4 L Hct 26.1 L MCV 102.0 H MCH 32.8 MCHC 32.2 RDW Std Deviation 60.1 H RDW Coeff of Irasema 15.9 H Plt Count 106 L MPV 10.8 Immature Gran % (Auto) 0.4 Neut % (Auto) 77.7 Lymph % (Auto) 14.4 Starke % (Auto) 4.5 Eos % (Auto) 2.6 Baso % (Auto) 0.4 Neut # (Auto) 3.83 Lymph # (Auto) 0.71 L Starke # (Auto) 0.22 Eos # (Auto) 0.13 Baso # (Auto) 0.02 Immature Gran # (Auto) 0.02 PT INR APTT PTT Ratio Sodium Potassium Chloride Carbon Dioxide Anion Gap BUN Creatinine Est Cr Clr Drug Dosing Est GFR ( Amer) Est GFR (Non-Af Amer) BUN/Creatinine Ratio Glucose POC Glucose 110 H Estimat Average Glucose Hemoglobin A1c Calcium Magnesium Total Bilirubin AST ALT Alkaline Phosphatase Total Protein Albumin Globulin Albumin/Globulin Ratio Nasal Screen MRSA (PCR) Negative SARS-CoV-2, RNA, NAAT Blood Type Antibody Screen Crossmatch 04/06/22 04/06/22 04/06/22 06:59 06:59 06:59 WBC RBC Hgb Hct MCV MCH MCHC RDW Std Deviation RDW Coeff of Irasema Plt Count MPV Immature Gran % (Auto) Neut % (Auto) Lymph % (Auto) Starke % (Auto) Eos % (Auto) Baso % (Auto) Neut # (Auto) Lymph # (Auto) Starke # (Auto) Eos # (Auto) Baso # (Auto) Immature Gran # (Auto) PT 11.4 INR 1.1 APTT 25.5 PTT Ratio 0.9 Sodium Pending Potassium Pending Chloride Pending Carbon Dioxide Pending Anion Gap Pending BUN Pending Creatinine Pending Est Cr Clr Drug Dosing Pending Est GFR ( Amer) Pending Est GFR (Non-Af Amer) Pending BUN/Creatinine Ratio Pending Glucose Pending POC Glucose Estimat Average Glucose 85 Hemoglobin A1c 4.6 Calcium Pending Magnesium Pending Total Bilirubin Pending AST Pending ALT Pending Alkaline Phosphatase Pending Total Protein Pending Albumin Pending Globulin Pending Albumin/Globulin Ratio Pending Nasal Screen MRSA (PCR) SARS-CoV-2, RNA, NAAT Blood Type Antibody Screen Crossmatch 04/06/22 07:47 WBC RBC Hgb Hct MCV MCH MCHC RDW Std Deviation RDW Coeff of Irasema Plt Count MPV Immature Gran % (Auto) Neut % (Auto) Lymph % (Auto) Starke % (Auto) Eos % (Auto) Baso % (Auto) Neut # (Auto) Lymph # (Auto) Starke # (Auto) Eos # (Auto) Baso # (Auto) Immature Gran # (Auto) PT INR APTT PTT Ratio Sodium Potassium Chloride Carbon Dioxide Anion Gap BUN Creatinine Est Cr Clr Drug Dosing Est GFR ( Amer) Est GFR (Non-Af Amer) BUN/Creatinine Ratio Glucose POC Glucose 116 H Estimat Average Glucose Hemoglobin A1c Calcium Magnesium Total Bilirubin AST ALT Alkaline Phosphatase Total Protein Albumin Globulin Albumin/Globulin Ratio Nasal Screen MRSA (PCR) SARS-CoV-2, RNA, NAAT Blood Type Antibody Screen Crossmatch PG Care Time/CCT Total # of Minutes Spent Total Time Spent with Patient: Total time spent is greater than 50% in coordination of care (as documented) at patient's floor/unit and/or counseling patient: Coding Level of Care Code INP/OBS CONSULT LVL 4, 60 MIN Diagnoses ESRD on hemodialysis N18.6; Z99.2 Acute blood loss anemia D62 Secondary hyperparathyroidism of renal origin N25.81
[2022-04-06] MEDS ORDERED: ETOMIDATE 2 MG/ML 20 ML VIAL IV ONE (11:02)
[2022-04-06 11:50] LABS: Albumin Globulin Ratio 1.6 (0.9-2); BUN Creatinine Ratio 17.2 (10-20); Bilirubin,Total 0.5 mg/dl (0.2-1.0); Creatinine Clr Calc Pharmacy 8.9 ml/min; Est GFR (African American) 12.4 ml/min; Est GFR (Non-African American) 10.7 ml/min; Globulin 1.9 gm/dl (2.5-4.0); Magnesium 2.1 mg/dl (1.7-2.4); Potassium 4.6 mmol/L (3.5-5.1); Total Protein 4.9 gm/dl (6.0-8.3)
--- NOTE | 2022-04-06 11:52 | GI REPORT ---
Patient Name: Sully Ray Procedure Date: 04/06/2022 10:44 AM Date of : 1940 Admit Type: Inpatient Age: 82 Gender: Female Attending MD: Mich Pacheco MD, Procedure: Small bowel enteroscopy Providers: Mich Pacheco MD Referring MD: Chris West Indications: Suspected upper gastrointestinal bleeding Medicines: Monitored Anesthesia Care Complications: No immediate complications. Estimated blood loss: None. Estimated Blood Loss: Estimated blood loss: none. Procedure: Pre-Anesthesia Assessment: - Prior Anticoagulants: The patient has taken no anticoagulant or antiplatelet agents. - ASA Grade Assessment: II - A patient with mild systemic disease. After obtaining informed consent, the endoscope was passed under direct vision. Throughout the procedure, the patient's blood pressure, pulse, and oxygen saturations were monitored continuously. The Colonoscope was introduced through the mouth, and advanced to the fourth part of duodenum. After obtaining informed consent, the endoscope was passed under direct vision. Throughout the procedure, the patient's blood pressure, pulse, and oxygen saturations were monitored continuously.The upper GI endoscopy was accomplished without difficulty. The patient tolerated the procedure well. Findings: The examined esophagus was normal. Moderate gastric antral vascular ectasia with bleeding was present in the gastric antrum. Coagulation for hemostasis using argon plasma at 1.2 liters/minute and 30 jones was successful. Estimated blood loss: none. A few angioectasias were found in the second portion of the duodenum. Coagulation for hemostasis using argon plasma at 1.2 liters/minute and 30 jones was successful. Estimated blood loss: none. Impression: - Normal esophagus. - Gastric antral vascular ectasia with bleeding. Treated with argon plasma coagulation (APC). - A few angioectasias in the duodenum. Treated with argon plasma coagulation (APC). - No specimens collected. Recommendation: - Resume previous diet today. - Return patient to [facility] for ongoing care. - EGD in 3 months for retreatment. Mich Pacheco MD 04/06/2022 11:51:59 AM This report has been signed electronically. Note Initiated On: 04/06/2022 10:44 AM Number of Addenda: 0 I attest to the content of the Intraoperative Record and orders documented therein, exceptions below {[id number]}
--- NOTE | 2022-04-06 13:30 | Anesthesiology Progress Note ---
Date of Service April 06, 2022 Anesthesia Post Procedure Vital Signs Vital Signs: Temp Pulse Pulse Resp BP BP Pulse Ox 04/06/22 12:30 36.6 C 50 L 18 151/63 H 97 04/06/22 12:10 52 L 20 146/49 H 96 04/06/22 11:56 59 L 18 140/54 L 100 04/06/22 11:39 51 L 16 139/55 L 100 04/06/22 07:00 58 L 04/06/22 10:43 36.7 C 62 20 158/46 H 99 04/06/22 07:30 36.4 C L 60 22 124/66 99 04/06/22 05:25 36.7 C 60 18 150/71 H 98 04/06/22 05:02 04/06/22 03:30 65 18 164/44 H 95 04/06/22 01:21 36.8 C 55 L 18 131/40 L 97 04/05/22 23:30 53 L 18 129/44 L 97 04/05/22 22:16 54 L 18 119/40 L 99 04/05/22 17:10 36.1 C L 55 L 20 115/72 99 O2 Del Method 04/06/22 12:30 Room Air 04/06/22 12:10 Room Air 04/06/22 11:56 Room Air 04/06/22 11:39 Room Air 04/06/22 07:00 04/06/22 10:43 Room Air 04/06/22 07:30 Room Air 04/06/22 05:25 Room Air 04/06/22 05:02 Room Air 04/06/22 03:30 Room Air 04/06/22 01:21 Room Air 04/05/22 23:30 Room Air 04/05/22 22:16 Room Air 04/05/22 17:10 Room Air Transfer of Care Handoff Completed per policy Notes Mental Status: alert / awake / arousable and participated in evaluation Patient Amnestic to Procedure: Yes Nausea / Vomiting: adequately controlled Pain: adequately controlled Airway Patency, RR, SpO2: stable & adequate BP & HR: stable & adequate Hydration State: stable & adequate Anesthetic Complications: no major complications apparent and Pt Satisfied with anesthetic care
[2022-04-06 13:36] LABS: Hemoglobin 8.4 g/dl (12.0-16.0)
--- NOTE | 2022-04-06 14:05 | Electrocardiogram Report ---
Test Reason : Blood Pressure : / mmHG Vent. Rate : 053 BPM Atrial Rate : 061 BPM P-R Int : 000 ms QRS Dur : 126 ms QT Int : 500 ms P-R-T Axes : 000 -10 -10 degrees QTc Int : 469 ms Atrial fibrillation with slow ventricular response Right bundle branch block Abnormal ECG When compared with ECG of 17-AUG-2021 15:29, Right bundle branch block is now Present Confirmed by Andres Agudelo ([id number]) on 04/06/2022 2:04:52 PM Referred By: REFERRED SELF Confirmed By:Andres Agudelo
[2022-04-06 17:57] LABS: Hematocrit (blood only) 26.1 % (37.0-47.0); Hemoglobin 8.3 g/dl (12.0-16.0)
[2022-04-06] MEDS ORDERED: rOPINIRole HCL 0.25 MG TABLET PO SCH (22:33)
[2022-04-07 05:30] LABS: Basophils # (auto) 0.04 K/uL (0-0.2); Basophils % (auto) 0.5 %; Eosinophils # (auto) 0.13 K/uL (0-0.50); Eosinophils % (auto) 1.5 %; Hematocrit (blood only) 27.4 % (37.0-47.0); Hemoglobin 8.8 g/dl (12.0-16.0); Immature Granulocytes # (auto) 0.02 K/uL (0.01-0.20); Immature Granulocytes % (auto) 0.2 %; Lymphocytes # (auto) 0.65 K/uL (1.2-3.4); Lymphocytes % (auto) 7.7 %; Mean Corpuscular Hemoglobin 32.2 pg (25.0-34.0); Mean Corpuscular Hgb Conc 32.1 g/dL (32.0-36.0); Mean Corpuscular Volume 100.4 fL (80.0-100.0); Monocytes # (auto) 0.34 K/uL (0.11-0.59); Neutrophils # (auto) 7.24 K/uL (1.40-6.50); Neutrophils % (auto) 86.1 %; Platelet Count 125 K/uL (130-400); RDW Coefficient of Variation 15.5 % (11.5-14.5); RDW Standard Deviation 57.1 fL (36.4-46.3); Red Blood Count 2.73 M/uL (4.20-5.40); White Blood Count 8.42 K/ul (4.8-10.8)
[2022-04-07 05:36] LABS: INR 1.1 (0.9-1.1); Partial Thromboplastin Ratio 0.9; Partial Thromboplastin Time 25.9 Seconds (21.0-31.0); Prothrombin Time 11.3 Seconds (9.0-12.0)
[2022-04-07 06:11] LABS: Albumin Globulin Ratio 1.6 (0.9-2); Albumin Level 3.2 gm/dl (3.4-5.0); BUN Creatinine Ratio 15.9 (10-20); Bilirubin,Total 0.5 mg/dl (0.2-1.0); Calcium 7.7 mg/dl (8.5-10.1); Creatinine Clr Calc Pharmacy 6.9 ml/min; Est GFR (African American) 9.1 ml/min; Est GFR (Non-African American) 7.8 ml/min; Magnesium 2.2 mg/dl (1.7-2.4); Potassium 5.4 mmol/L (3.5-5.1); Total Protein 5.2 gm/dl (6.0-8.3)
[2022-04-07] MEDS ORDERED: IRON SUCROSE 100 MG in SYRINGE 0 ML IV ONE (07:00)
[2022-04-07] MEDS ORDERED: EPOETIN ALFA 20,000 UNITS/ML VIAL IV ONE (07:00)
--- NOTE | 2022-04-07 07:30 | Hospitalist Progress Note ---
Date of Service April 07, 2022 Assessment & Plan (1) Anemia: Plan: Acute blood loss anemia with significant risk the patient. Suspect upper GI bleed Surveillance of anemia for need of transfusion Gastroenterology egd and push enteroscopy with GAVE, and Duodenal te langictasias coagulation for hemostasis was applied and achieved Protonix 40 mg bid repeat EGD in 3 months (2) History of renal dialysis: Plan: Chronic stable condition managed with dialysis consulting without any nephrology to continue inpatient dialysis. dialysis session planned for 04/07/22 chronic secondary hyperparathyroidism, continue medicaiotns to prevent (3) (HFpEF) heart failure with preserved ejection fraction: Plan: Patient with chronic heart failure preserved ejection fraction volume status managed by dialysis Chronically has pulmonary hypertesions chronic Aortic stenosis and CAD chronic mobitz 1 block (4) Diabetes mellitus type 2 with complications: Plan: Patient typically is on linagliptin because she is n.p.o. this will be held subsequently necessitating institution of basal bolus insulin. We will need to monitor for hypoglycemia has chronic complications of gastroparesis (5) Neurogenic bladder: (6) ARMD (age related macular degeneration): (7) Cirrhosis: Plan: Pt has known esophageal varices that may be responsible for Acute blood loss anemia, this can be chronic unstable (8) Vitamin D deficiency: (9) Fatty liver: Admission and Anticipated Discharge Date Admission Date: April 05, 2022 Results & Data Results & Data ([facility]) Vital Signs (Past 12 Hours) Vital Signs Temp Pulse Pulse Resp BP Pulse Ox O2 Del Method 04/07/22 07:21 59 L 04/06/22 23:19 58 L 04/07/22 02:29 97.7 F 57 L 18 133/71 99 Room Air 04/06/22 21:20 Room Air 04/06/22 22:40 97.5 F L 58 L 20 99/63 L 98 Room Air PG Care Time/CCT Total # of Minutes Spent Total Time Spent with Patient: Total time spent is greater than 50% in coordination of care (as documented) at patient's floor/unit and/or counseling patient: Coding Diagnoses Anemia D64.9 Anemia type: unspecified type History of renal dialysis Z92.89 (HFpEF) heart failure with preserved ejection fraction I50.30 Diabetes mellitus type 2 with complications E11.8 Neurogenic bladder N31.9 ARMD (age related macular degeneration) H35.30 Cirrhosis K74.60 Vitamin D deficiency E55.9 Fatty liver K76.0 (1) Anemia Anemia type: unspecified type Qualified Code(s): D64.9 - Anemia, unspecified
[2022-04-07] MEDS: PANTOprazole 40 MG in SYRINGE 0 ML IV SCH (09:07)
[2022-04-07] MEDS: INSULIN ASPART PER UNIT SC SCH ×2 (09:23→13:01)
--- NOTE | 2022-04-07 14:43 | Nephrology Progress Note ---
Date of Service April 07, 2022 Assessment & Plan (1) ESRD on hemodialysis: Plan: Outpatient Rx TTS 180 optiflux, Qb 350 Qd 800, 3K bath. EDW 65.5 kg (post 65 kg on Sunday). HD via [facility]. Orders for short HD treatment entered into EHR today. Plan reviewed with HD nurse. I also discussed the plan of care with the window unit air conditioning mechanic at [facility]. Will provide some clearance today and plan for patient to resume her scheduled outpatient treatment tomorrow. BP and volume status are acceptable. Medications are appropriately dosed for IHD. Renal diet. 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 H/H stable. Repeat labs next week at HD. (3) Secondary hyperparathyroidism of renal origin: Plan: Hold Sevelamer while NPO. Admission and Anticipated Discharge Date Admission Date: April 05, 2022 Subjective No acute events overnight. Denies melena or hematochezia today. No acute complaints. Sully feels well and would like to go home. I discussed the plan of care with Dr. West this AM. Review of Systems Review of Systems: All systems reviewed & are unremarkable except as noted in HPI & below Physical Exam Constitutional: well developed; no acute distress Eyes: no scleral abnormality and no corneal abnormality Neck: normal visual inspection and trachea midline Respiratory: normal respiratory effort Auscultation: lungs clear to auscultation bilaterally Cardiovascular: Rate/Rhythm: regular rate Heart Sounds: normal S1 and normal S2 Extremities: + pedal edema and + AV fistula Musculoskeletal: Extremities: no cyanosis and no clubbing Skin: + turgor decreased; no ecchymosis Neurologic: Motor/Sensory: no tremor and no asterixis Psychiatric: Orientation: alert and oriented x 3 Results & Data ([facility]) Vital Signs (Past 12 Hours) Vital Signs Temp Pulse Pulse Pulse Resp BP BP 04/07/22 14:30 65 111/52 L 04/07/22 14:00 65 117/61 04/07/22 13:30 59 L 108/48 L 04/07/22 13:19 36.6 C 52 L 51 L 18 111/54 L 04/07/22 13:00 55 L 117/56 L 04/07/22 12:31 50 L 144/51 H 04/07/22 12:27 36.6 C 51 L 04/07/22 11:46 36.4 C L 52 L 18 111/54 L 04/07/22 07:30 36.5 C 59 L 18 147/70 H 04/07/22 07:21 59 L Pulse Ox O2 Del Method 04/07/22 14:30 04/07/22 14:00 04/07/22 13:30 04/07/22 13:19 100 04/07/22 13:00 04/07/22 12:31 04/07/22 12:27 04/07/22 11:46 100 Room Air 04/07/22 07:30 100 Room Air 04/07/22 07:21 Laboratory Results Laboratory Results - last 24 hr 04/06/22 04/06/22 04/06/22 16:32 17:25 20:21 WBC RBC Hgb 8.3 L Hct 26.1 L MCV MCH MCHC RDW Std Deviation RDW Coeff of Irasema Plt Count MPV Immature Gran % (Auto) Neut % (Auto) Lymph % (Auto) [place] % (Auto) Eos % (Auto) Baso % (Auto) Neut # (Auto) Lymph # (Auto) [place] # (Auto) Eos # (Auto) Baso # (Auto) Immature Gran # (Auto) PT INR APTT PTT Ratio Sodium Potassium Chloride Carbon Dioxide Anion Gap BUN Creatinine Est Cr Clr Drug Dosing Est GFR ( Amer) Est GFR (Non-Af Amer) BUN/Creatinine Ratio Glucose POC Glucose 114 H 97 Calcium Magnesium Total Bilirubin AST ALT Alkaline Phosphatase Total Protein Albumin Globulin Albumin/Globulin Ratio 04/07/22 04/07/22 04/07/22 04:39 04:39 04:39 WBC 8.42 RBC 2.73 L Hgb 8.8 L Hct 27.4 L MCV 100.4 H MCH 32.2 MCHC 32.1 RDW Std Deviation 57.1 H RDW Coeff of Irasema 15.5 H Plt Count 125 L MPV 11.0 Immature Gran % (Auto) 0.2 Neut % (Auto) 86.1 Lymph % (Auto) 7.7 [place] % (Auto) 4.0 Eos % (Auto) 1.5 Baso % (Auto) 0.5 Neut # (Auto) 7.24 H Lymph # (Auto) 0.65 L [place] # (Auto) 0.34 Eos # (Auto) 0.13 Baso # (Auto) 0.04 Immature Gran # (Auto) 0.02 PT 11.3 INR 1.1 APTT 25.9 PTT Ratio 0.9 Sodium 137 Potassium 5.4 H Chloride 101 Carbon Dioxide 27 Anion Gap 9 BUN 76 H Creatinine 4.77 H* D Est Cr Clr Drug Dosing 6.9 Est GFR ( Amer) 9.1 Est GFR (Non-Af Amer) 7.8 BUN/Creatinine Ratio 15.9 Glucose 119 H POC Glucose Calcium 7.7 L Magnesium 2.2 Total Bilirubin 0.5 AST 29 ALT 28 Alkaline Phosphatase 266 H Total Protein 5.2 L Albumin 3.2 L Globulin 2.0 L Albumin/Globulin Ratio 1.6 04/07/22 04/07/22 07:43 11:59 WBC RBC Hgb Hct MCV MCH MCHC RDW Std Deviation RDW Coeff of Irasema Plt Count MPV Immature Gran % (Auto) Neut % (Auto) Lymph % (Auto) [place] % (Auto) Eos % (Auto) Baso % (Auto) Neut # (Auto) Lymph # (Auto) [place] # (Auto) Eos # (Auto) Baso # (Auto) Immature Gran # (Auto) PT INR APTT PTT Ratio Sodium Potassium Chloride Carbon Dioxide Anion Gap BUN Creatinine Est Cr Clr Drug Dosing Est GFR ( Amer) Est GFR (Non-Af Amer) BUN/Creatinine Ratio Glucose POC Glucose 118 H 94 Calcium Magnesium Total Bilirubin AST ALT Alkaline Phosphatase Total Protein Albumin Globulin Albumin/Globulin Ratio PG Care Time/CCT Total # of Minutes Spent Total Time Spent with Patient: Total time spent is greater than 50% in coordination of care (as documented) at patient's floor/unit and/or counseling patient: Coding Level of Care Code 17466 SUB INP/OBS CARE 3/50MIN Diagnoses ESRD on hemodialysis N18.6; Z99.2 Acute blood loss anemia D62 Secondary hyperparathyroidism of renal origin N25.81
--- NOTE | 2022-04-07 18:08 | Discharge Summary ---
Date of Service April 07, 2022 Admission HPI Per Admitting Provider The patient is an 82-year-old female with a past medical history including GI bleed from unknown source, partial arterial occlusion of retina, neurogenic bladder, gastroparesis, diabetes mellitus type 2 with complications, ARMD, secondary hyperparathyroidism of renal origin, ESRD on HD, cirrhosis, esophageal varices, pulmonary hypertension, acute blood loss anemia, HFpEF, mitral stenosis, history of CVA, CAD, RBBB, aortic stenosis, anxiety, fatty liver, GERD without esophagitis, hyperlipidemia, hypertension, hypothyroidism, restless legs, venous insufficiency and Mobitz type I second-degree AV block. The shemar ent has been followed closely by GI in the outpatient setting, and has required a total of 8 units of PRBCs transfused since 02/17/2022. She had an EGD on 12/12/2021 which primarily showed gastritis, had a colonoscopy in 2020 which was nonrevealing, and had capsule endoscopy a few days ago of which the family was told there was an area of blood, but no direct source of bleeding found. Principal Diagnosis upper gi bleed, GAVE and duodenal ectasia Discharge Exam Patient wake alert normal complaints or problems no abdominal discomfort is receiving dialysis on visit did receive Venna fair Discharge Data Allergies Allergy/AdvReac Type Severity Reaction Status Date / Time sulfamethoxazole AdvReac Unknown Verified 04/05/22 21:29 [From Bactrim] trimethoprim [From Bactrim] AdvReac Unknown Verified 04/05/22 21:29 Consultations 04/05/22 20:42 ED Decision to Admit Stat 04/05/22 23:19 Consult Gastroenterology Routine 04/06/22 05:23 Consult Nephrology Routine Procedures Performed Operation Date: 04/06/22 16:30 Actual Procedures p EGD Hemostasis - Mich Pacheco MD Hospital Course (1) Anemia: Acute blood loss anemia with significant risk the patient. Endoscopically confirmed upper GI bleed Acute on chronic anemia Gastroenterology egd and push enteroscopy with GAVE, and Duodenal telangiectasias coagulation for hemostasis was applied and achieved Protonix 40 mg bid repeat EGD in [address] Pacheco (2) History of renal dialysis: Chronic stable condition managed with dialysis consulting without any nephrology to continue inpatient dialysis. dialysis session planned for 04/07/22 chronic secondary hyperparathyroidism, continue medicaiotns to prevent (3) (HFpEF) heart failure with preserved ejection fraction: Patient with chronic heart failure preserved ejection fraction volume status managed by dialysis Chronically has pulmonary hypertesions chronic Aortic stenosis and CAD chronic mobitz 1 block (4) Diabetes mellitus type 2 with complications: Patient typically is on linagliptin has chronic complications of gastroparesis (5) Neurogenic bladder: (6) ARMD (age related macular degeneration): (7) Cirrhosis: Despite description of esophageal varices number noted on EGD patient has G AVE and duodenal telangiectasia treated with coagulation therapy (8) Vitamin D deficiency: (9) Fatty liver: Total Time Total Time Spent Total Time Spent (In Minutes): It required greater than 30 minutes to prepare this patient for discharge Discharge Plan Discharge Items Patient Disposition: Home - Self-Care Reason For Visit: UGI BLEED Discharge Diagnosis: upper gi bleed gastric antral varicies with ectasia, bleeding treated duodenal ectasia, treated Activity: Resume your previous activity Non-emergency contact: Primary Care Provider and Ent Nurse Call non-emergency contact if: your symptoms worsen Follow-up/Referrals: Agatha Alfaro DO [Primary Care Provider] - 04/11/22 10:20 am (Will see Destin MORGAN) Mich Pacheco MD [Physician] - 05/10/22 1:40 pm Diet: Regular Addtl Attending Provider Instructions: please continue to take your protonix twice a day follow with your dialysis and follow up with Dr Pacheco in 3 months for repeat Endoscopy Pending Studies at Discharge: No Stand-Alone Forms: [employer], Smoking Cessation Medications and DC Order Prescriptions: Continued (DME) Blood Glucose Test Strip See Rx Instructions .ROUTE .MEDSUPPLY Qty: 100 5RF Rx Instructions: Accucheck perform strips. 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 bethanechol chloride 50 mg tablet 50 mg PO BID Qty: 180 3RF methocarbamol 500 mg tablet 500 mg PO TID PRN (Reason: muscle spasm) Qty: 90 1RF atorvastatin [Lipitor] 10 mg tablet 10 mg PO HS Qty: 90 1RF Saccharomyces boulardii [Florastor] 250 mg capsule 250 mg PO BID Qty: 180 3RF (DME) Fitted Briefs X-Large Misc See Rx Instructions .Route Qty: 150 5RF Rx Instructions: using 4-5 per day R19.7 Tradjenta 5 mg tablet 5 mg PO QAM Qty: 90 2RF tramadol [Ultram] 50 mg tablet 50 mg PO BID PRN (Reason: pain) Qty: 60 0RF triamcinolone acetonide 0.05 % ointment 1 applic topical BID Qty: 430 1RF amlodipine [Norvasc] 10 mg tablet 10 mg PO QAM Qty: 90 1RF pantoprazole [Protonix] 40 mg tablet,delayed release (DR/EC) 40 mg PO BID Qty: 60 0RF ropinirole 0.5 mg tablet 0.5 - 1.5 mg PO UD Qty: 360 0RF Rx Instructions: Take 1 tab PO in afternoon, take 3 tabs at bedtime PO; famotidine 40 mg tablet 40 mg PO BID Qty: 60 2RF loperamide [Anti-Diarrheal (loperamide)] 2 mg capsule 2 mg PO TID PRN (Reason: Diarrhea) cholecalciferol (vitamin D3) [Vitamin D3] 1,000 unit Capsule 2,000 unit PO QAM Silvis-3 Fish Oil 300-1,000 mg Capsule 1 cap PO QAM Azo Cranberry 250 mg Tablet,Chewable 500 mg PO QAM calcium carbonate 500 mg calcium (1,250 mg) Tablet 0 mg PO QAM Rx Instructions: 2 caps in am ascorbic acid (vitamin C) [Vitamin C] 500 mg Tablet 1,000 mg PO QAM cyanocobalamin (vitamin B-12) [Vitamin B-12] 1,000 mcg tablet 1,000 mcg PO QAM tamsulosin [Flomax] 0.4 mg capsule 0.4 mg PO QAM hydrocortisone acetate [Anusol-HC] 25 mg suppository 25 mg W[place] QAM PRN (Reason: Hemorrhoids) hydrocortisone 2.5 % cream with perineal applicator 1 applic [place] UD PRN (Reason: hemorrhoids) doxazosin 4 mg tablet 4 mg PO QAM levothyroxine [Synthroid] 112 mcg tablet 112 mcg PO QAM furosemide 80 mg Tablet 80 mg PO BID vitamin E 400 unit Tablet 400 mg PO QAM sevelamer carbonate 800 mg Tablet 800 mg PO TID Rx Instructions: must administer with a meal/food Discontinued sucralfate [Carafate] 100 mg/mL suspension 1 g PO QID Qty: 200 0RF Label Comments: pt unsure about this? Discharge Orders: Discharge Order (Routine); Ordered 04/07/22 Ordered By: Chris West Admission Data Admit Date/Time: 04/05/22 22:49 Attending Provider: Chris West Admit Provider: Jhon Beck Primary Care Provider: Agatha Alfaro Other Providers: Jhon Beck ; Orlando Davis ; Luke Villarreal Other Interventions: Discharge Summary Assessment (RN) Last Done: 04/07/22 13:19 Coding Level of Care Code HOSP INP/OBS DISCH >30 MIN Diagnoses Anemia D64.9 Anemia type: unspecified type History of renal dialysis Z92.89 (HFpEF) heart failure with preserved ejection fraction I50.30 Diabetes mellitus type 2 with complications E11.8 Neurogenic bladder N31.9 ARMD (age related macular degeneration) H35.30 Cirrhosis K74.60 Vitamin D deficiency E55.9 Fatty liver K76.0
[2022-04-07] MEDS ORDERED: rOPINIRole HCL 0.25 MG TABLET PO SCH (21:00)
== END 2022-04-07 17:19 | disposition home or self-care (01) | DRG 377 ==
LOC: ED 16:29 → EDINP 22:49 → SUATTDRO 22:49 → EDINP 04-06 05:02 → 4W 04-06 05:33

== ENCOUNTER 2022-05-11 06:08 | Inpatient (IN) ==
--- NOTE | 2022-05-11 06:55 | Emergency Department Note ---
History of Present Illness General Chief complaint: Rectal Bleed Stated complaint: RECTAL BLEEDING Time Seen by Provider: 05/11/22 06:42 Source: patient, RN notes reviewed and old records reviewed (I have reviewed the most recent upper EGD) Mode of arrival: ambulatory Limitations: no limitations History of Present Illness This patient is a 82-year-old female who has end-stage renal disease and a very complex medical history, comes in with rectal bleeding. She was hospitalized for this in April and had an upper EGD which showed gastric ectasia which was coagulated she also had angioectasia in the duodenum that was coagulated as we ll. She has not been monitoring her hemoglobin she went from 10 to 8-6.7 in dialysis today. She has had intermittent blood in her stool that was worse today. She was sent over from dialysis. She did not receive dialysis today so the last time she had dialysis was on Sunday. No fever no chest pain or shortness of breath she has had decreased energy and has some dyspnea on exertion but feels okay just sitting at rest. No cough Home Medications Medication Instructions Recorded Confirmed Type cholecalciferol (vitamin D3) 25 2,000 unit PO QAM 05/29/18 04/14/22 History mcg (1,000 unit) capsule (Vitamin D3) cranberry fruit concentrate 250 mg 500 mg PO QAM 05/29/18 04/14/22 History chewable tablet (Azo Cranberry) omega-3s 300 lb-anf-tih-other 1 cap PO QAM 05/29/18 04/14/22 History [id number] oil 1,000 mg capsule ([place]-3 Fish Oil) blood sugar diagnostic (Blood #100 ea 10/12/20 04/14/22 Rx Glucose Test strips) ascorbic acid (vitamin C) 500 mg 1,000 mg PO QAM 11/12/20 04/14/22 History tablet (Vitamin C) cyanocobalamin (vitamin B-12) 1,000 mcg PO QAM 11/12/20 04/14/22 History 1,000 mcg tablet (Vitamin B-12) tamsulosin 0.4 mg capsule (Flomax) 0.4 mg PO QAM 11/12/20 04/14/22 History bethanechol chloride 50 mg tablet 50 mg PO BID #180 tabs 04/19/21 04/14/22 Rx atorvastatin 10 mg tablet (Lipitor) 10 mg PO HS #90 tabs 11/18/21 04/14/22 Rx loperamide 2 mg capsule 2 mg PO TID PRN Diarrhea 12/02/21 04/14/22 History (Anti-Diarrheal (loperamide)) Saccharomyces boulardii 250 mg 250 mg PO BID #180 caps 12/05/21 04/14/22 Rx capsule (Florastor) diaper,brief,adult,disposable #150 ea 12/07/21 04/14/22 Rx (Fitted Briefs X-Large) doxazosin 4 mg tablet 4 mg PO QAM 12/07/21 04/14/22 History hydrocortisone 2.5 % topical cream 1 applic TN UD PRN hemorrhoids 12/07/21 04/14/22 History with perineal applicator hydrocortisone acetate 25 mg 25 mg TN QAM PRN Hemorrhoids 12/07/21 04/14/22 History rectal suppository (Anusol-HC) levothyroxine 112 mcg tablet 112 mcg PO QAM 12/07/21 04/14/22 History (Synthroid) linagliptin 5 mg tablet (Tradjenta) 5 mg PO QAM #90 tabs 12/07/21 04/14/22 Rx tramadol 50 mg tablet (Ultram) 50 mg PO BID PRN pain #60 tabs 12/31/21 04/14/22 Rx triamcinolone acetonide 0.05 % 1 applic topical BID #430 grams 01/18/22 04/14/22 Rx topical ointment amlodipine 10 mg tablet (Norvasc) 10 mg PO QAM #90 tabs 02/23/22 04/14/22 Rx ropinirole 0.5 mg tablet 0.5 - 1.5 mg PO UD #360 tabs 03/07/22 04/14/22 Rx furosemide 80 mg tablet 80 mg PO BID 03/20/22 04/14/22 History sevelamer carbonate 800 mg tablet 800 mg PO TID 03/20/22 04/14/22 History vitamin E 400 unit tablet 400 mg PO QAM 03/20/22 04/14/22 History famotidine 40 mg tablet 40 mg PO BID #60 tabs 03/21/22 04/14/22 Rx calcium carbonate 500 mg calcium 0 mg PO QAM 02/01/23 02/10/23 History (1,250 mg) tablet pantoprazole 40 mg tablet,delayed 40 mg PO BID #60 tabs 04/17/22 Rx release (Protonix) methocarbamol 500 mg tablet 500 mg PO TID PRN muscle spasm #90 05/03/22 Rx tabs Allergies Allergy/AdvReac Type Severity Reaction Status Date / Time sulfamethoxazole AdvReac Unknown Verified 04/14/22 07:00 [From Bactrim] trimethoprim [From Bactrim] AdvReac Unknown Verified 04/14/22 07:00 Past Med/Surg History Medical History (Updated 05/11/22 @ 14:00 by Jania Coughlin DO) Acute kidney injury superimposed on chronic kidney disease Anemia of chronic disease Anxiety Aortic stenosis CAD (coronary artery disease) Chronic diastolic heart failure Chronic hyponatremia Diabetes mellitus, type 2 Diabetic retinopathy Elevated troponin Essential tremor MINOR IN HAND Fatty liver First degree AV block GERD without esophagitis Hearing deficit no hearing aids Hiatal hernia History of CVA (cerebrovascular accident) (2019) ~3-4 years ago, woke up with weakness in her rt hand; L lacunar infarct; previously on plavix>no residual effects History of GI bleed hx 08/2021, given transfusion-per medical record History of renal dialysis tuesdays, , and saturdays currently; catheter in pt's neck Hx of atrial fibrillation, no current medication per medical report Hyperlipidemia Hypertension Hypothyroidism 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 Osteoarthritis Poor historian RBBB f/u dr. aguirre Recurrent UTI Resistant hypertension Restless legs Urinary urgency Venous insufficiency Weakness Surgical History H/O varicose vein ligation History of back surgery (04/2010) X 2 History of bladder suspension procedure X 2 History of colonoscopy History of esophagogastroduodenoscopy (EGD) History of esophagogastroduodenoscopy (EGD) 04/06/22 at [facility] with Dr. Mich Pacheco- EGD- Gastric antral vascular ectasia with bleeding, treated with argon plasma coagulation (APC); Few angioectasias in the duodenum, treated with APC History of tooth extraction Hx of cardiac catheterization 08/2021, [place] w/Dr. Moura for increased cardiac pressures; no stents S/P carpal tunnel release RT/LEFT S/P hysterectomy ANDRIA S/P knee replacement RT/LEFT S/P pericardiocentesis 08/2021, [facility], w/dr moura S/P trigger finger release Family History Father Alcohol abuse Heart disease Myocardial infarction Hypertension Sister Pancreatic cancer Diabetes Breast cancer Brother Diabetes Alcohol abuse Stroke Other Cancer No family history of adverse response to anesthesia Denies family history of Ovarian cancer Prostate cancer Colorectal cancer Social History Smoking Status: Never smoker Second Hand Exposure: Yes (long time ago, 40+ years ago); Hx Alcohol Use: No Hx Substance Use: No Preferred Language: Uzbek Communication Ability: Effective Visual Impairment: No Limitations Hearing Ability: Normal Property Loss Insurance Claim Adjuster Required: No Beliefs That Will Affect Care: None marital status: Single Current Living Situation: Alone current occupational status: retired How many Children do You have: 2 Other Information That Helps Us Care for You: No Feels Safe at Home: Yes Safety Concerns: Feels Safe At This Time Childhood Exposure to Second-Hand Smoke: No Diet Comment: regular caffeine: Yes (Coffee x 2 cups per day.) during the past year weight has: remained stable Dental Care, Regularly: No Physical Activity Frequency: Does not Exercise Seatbelt Use: always Sunscreen Use: Yes Assistive Devices: Denture - Upper, Denture - Lower, Glasses and Walker Review of Systems A total of 10 systems reviewed and were otherwise negative Physical Exam Vital Signs Vital Signs - 24 hr 05/11/22 06:16 05/11/22 06:42 05/11/22 07:00 Temperature 36.6 C Temperature Source Oral Pulse Rate 51 L 47 L Pulse Rate [Apical] 47 L Pulse Rate from SpO2 Sensor Respiratory Rate 18 18 16 Respiratory Effort / Characteristics Non-Labored Spontaneous Non-Labored Spontaneous Respiratory Depth Normal Normal Respiratory Pattern Regular Regular Blood Pressure Blood Pressure [Right Arm] 103/30 L Blood Pressure Mean Blood Pressure Mean [Right Arm] 54 Pulse Oximetry 98 Oxygen Delivery Method Room Air Oxygen Flow Rate Sepsis Recent Fever Within 48 Hours No Sepsis New/Unexplained Change in Mental Status No Sepsis Action Taken by Nursing No Action Required 05/11/22 07:00 05/11/22 07:30 05/11/22 08:00 Temperature Temperature Source Pulse Rate 52 L 47 L 47 L Pulse Rate [Apical] Pulse Rate from SpO2 Sensor Respiratory Rate 15 20 20 Respiratory Effort / Characteristics Respiratory Depth Respiratory Pattern Blood Pressure 111/53 L 100/41 L 106/33 L Blood Pressure [Right Arm] Blood Pressure Mean 72 60 57 Blood Pressure Mean [Right Arm] Pulse Oximetry Oxygen Delivery Method Room Air Oxygen Flow Rate 99 Sepsis Recent Fever Within 48 Hours Sepsis New/Unexplained Change in Mental Status Sepsis Action Taken by Nursing 05/11/22 08:30 Temperature Temperature Source Pulse Rate 48 L Pulse Rate [Apical] Pulse Rate from SpO2 Sensor 51 L Respiratory Rate 15 Respiratory Effort / Characteristics Respiratory Depth Respiratory Pattern Blood Pressure 112/52 L Blood Pressure [Right Arm] Blood Pressure Mean 72 Blood Pressure Mean [Right Arm] Pulse Oximetry 98 Oxygen Delivery Method Room Air Oxygen Flow Rate Sepsis Recent Fever Within 48 Hours Sepsis New/Unexplained Change in Mental Status Sepsis Action Taken by Nursing General: Well developed well nourished somewhat pale older female who appears in no acute distress, breathing comfortably on room air. Normal speech HEENT: Normal cephalic atraumatic. Pupils are equal round and reactive to light. Extraocular movements are intact. Oropharynx is pink with moist mucous membranes. No swelling of the mouth lips or tongue. Neck: Supple with a midline trachea. No meningeal signs or stiffness, no JVD or bruits. No Stridor. Chest: Clear to auscultation bilaterally. No wheezes or rhonchi. No increased work of breathing. Dialysis catheter in the right chest. Heart: Regular rate and rhythm without murmurs or gallops. Abdomen: Soft nontender, nondistended without rebound guarding or rigidity. Extremities: No cyanosis clubbing or edema. No calf tenderness or assymetry Spine/Back. Non tender to palpation. No CVA tenderness Skin: Good turgor without rashes. Neurologic exam: Cranial nerves two through 12 are intact. Motor and sensation are intact and symmetrical throughout. Course Administered Medications Ascorbic Acid (Ascorbic Acid 500 Mg Tab) 1,000 mg PO QAM [facility] Stop: 06/10/22 09:09 Last Admin: 05/11/22 13:44 Dose: Not Given Documented By: AM Bethanechol Chloride (Bethanechol Chl 25 Mg Tab) 50 mg PO BID [facility] Stop: 06/10/22 09:59 Last Admin: 05/11/22 13:45 Dose: Not Given Documented By: AM Calcium Carbonate (Calcium Carbonate 1250mg Tab) 2,500 mg PO QAM [facility] Stop: 06/10/22 10:14 Last Admin: 05/11/22 13:45 Dose: Not Given Documented By: AM Cyanocobalamin (Cyanocobalamin (B-12) 500 Mcg Tablet) 1,000 mcg PO QAM [facility] Stop: 06/10/22 10:14 Last Admin: 05/11/22 13:45 Dose: Not Given Documented By: AM Doxazosin Mesylate (Doxazosin Mesylate 4 Mg Tab) [facility] [place] [facility]: 06/10/22 09:09 Last Admin: 05/11/22 13:45 Dose: Not Given Documented By: AM Pantoprazole Sodium 40 mg/ (Syringe) 10 mls @ 5 mls/min IV BID [facility] Stop: 06/10/22 09:59 Last Admin: 05/11/22 14:04 Dose: 5 mls/min Documented By: AM Insulin Aspart (Insulin Aspart Per Unit) 0 units SC ACHS [facility] Stop: 06/10/22 11:29 Last Admin: 05/11/22 13:50 Dose: Not Given Documented By: AM Co-signed By: SAI Levothyroxine Sodium (Levothyroxine Sodium 112 Mcg Tablet) 112 mcg PO DAILYBB [facility] Stop: 06/10/22 09:09 Last Admin: 05/11/22 13:45 Dose: Not Given Documented By: AM Ropinirole HCl (Ropinirole Hcl 0.25 Mg Tablet) 0.5 mg PO DAILY@1200 [facility] Stop: 06/10/22 11:59 Last Admin: 05/11/22 14:06 Dose: 0.5 mg Documented By: AM Sevelamer HCl (Sevelamer Hcl 800 Mg Tablet) 800 mg PO TID [facility] Stop: 06/10/22 09:09 Last Admin: 05/11/22 14:05 Dose: 800 mg Documented By: Admin: 05/11/22 13:45 Dose: Not Given Documented By: AM Tamsulosin HCl (Tamsulosin Hcl 0.4 Mg Cap) 0.4 mg PO QAM [facility] Stop: 06/10/22 09:59 Last Admin: 05/11/22 13:45 Dose: Not Given Documented By: AM Discontinued Medications Insulin Glargine (Lantus Per Unit Charge) 5 units SQ BID [facility] Stop: 04/08/23 09:59 Last Admin: 05/11/22 13:50 Dose: Not Given Documented By: AM Critical Care Time Critical Care Time: Yes Total Critical Care Time: 35 Due to the patient's GI bleed, need for frequent reassessment, consultation with the hospitalist and radar engineer as well as multiple labs and type and cross and consent for transfusion, I have personally spent greater than 35 minutes of critical care time in the direct management of this patient. This includes bedside care, interpretation of diagnostic studies, and testing, discussion with consultants, patient, and family members, and other required patient management activities. This 35 minutes is in excess of all separately billable procedures. Medical Decision Making Differential Diagnosis GI bleed, electrolyte or metabolic abnormality, anemia, infection Medical Records Attestation: I reviewed the patient's medical records. Home Medications Current Medication List: was personally reviewed by me Laboratory Data Attestation: I reviewed the patient's lab results. 05/11/22 06:25 05/11/22 06:25 Lab Results 05/11/22 05/11/22 05/11/22 Range/Units 06:25 06:25 06:25 WBC 5.32 (4.8-10.8) K/ul RBC 1.96 L (4.20-5.40) M/uL Hgb 6.4 L* (12.0-16.0) g/dl Hct 20.2 L* (37.0-47.0) % MCV 103.1 H (80.0-100.0) fL MCH 32.7 (25.0-34.0) pg MCHC 31.7 L (32.0-36.0) g/dL RDW Std Deviation 59.7 H (36.4-46.3) fL RDW Coeff of Irasema 16.0 H (11.5-14.5) % Plt Count 127 L (130-400) K/uL MPV 11.5 (9.4-12.4) fL Immature Gran % (Auto) 0.2 % Neut % (Auto) 79.9 % Lymph % (Auto) 12.2 % [place] % (Auto) 6.2 % Eos % (Auto) 0.9 % Baso % (Auto) 0.6 % Neut # (Auto) 4.25 (1.40-6.50) K/uL Lymph # (Auto) 0.65 L (1.2-3.4) K/uL [place] # (Auto) 0.33 (0.11-0.59) K/uL Eos # (Auto) 0.05 (0-0.50) K/uL Baso # (Auto) 0.03 (0-0.2) K/uL Immature Gran # (Auto) 0.01 (0.01-0.20) K/uL Ovalocytes 1+ PT 11.9 (9.0-12.0) Seconds INR 1.1 (0.9-1.1) APTT 22.5 (21.0-31.0) Seconds PTT Ratio 0.8 Sodium 140 (136-145) mmol/L Potassium 4.1 (3.5-5.1) mmol/L Chloride 101 (98-107) mmol/L Carbon Dioxide 29 (21-32) mmol/L Anion Gap 10 (3-11) BUN 61 H (6-23) mg/dl Creatinine 3.65 H (0.6-1.2) mg/dl Est Cr Clr Drug Dosing 9.4 ml/min Est GFR ( Amer) 12.5 ml/min Est GFR (Non-Af Amer) 10.8 ml/min BUN/Creatinine Ratio 16.7 (10-20) Glucose 128 H (70-99(Fasting)) mg/dl Calcium 7.7 L (8.5-10.1) mg/dl Total Bilirubin 0.3 (0.2-1.0) mg/dl AST 20 (13-39) U/L ALT 18 (7-52) U/L Alkaline Phosphatase 171 H (34-104) U/L Troponin I High Sens 23.0 H (0-14) pg/ml Total Protein 4.8 L (6.0-8.3) gm/dl Albumin 3.0 L (3.4-5.0) gm/dl Globulin 1.8 L (2.5-4.0) gm/dl Albumin/Globulin Ratio 1.7 (0.9-2) SARS-CoV-2, RNA, NAAT (NEGATIVE) Blood Type Antibody Screen Crossmatch 05/11/22 05/11/22 Range/Units 06:25 07:10 WBC (4.8-10.8) K/ul RBC (4.20-5.40) M/uL Hgb (12.0-16.0) g/dl Hct (37.0-47.0) % MCV (80.0-100.0) fL MCH (25.0-34.0) pg MCHC (32.0-36.0) g/dL RDW Std Deviation (36.4-46.3) fL RDW Coeff of Irasema (11.5-14.5) % Plt Count (130-400) K/uL MPV (9.4-12.4) fL Immature Gran % (Auto) % Neut % (Auto) % Lymph % (Auto) % [place] % (Auto) % Eos % (Auto) % Baso % (Auto) % Neut # (Auto) (1.40-6.50) K/uL Lymph # (Auto) (1.2-3.4) K/uL [place] # (Auto) (0.11-0.59) K/uL Eos # (Auto) (0-0.50) K/uL Baso # (Auto) (0-0.2) K/uL Immature Gran # (Auto) (0.01-0.20) K/uL Ovalocytes PT (9.0-12.0) Seconds INR (0.9-1.1) APTT (21.0-31.0) Seconds PTT Ratio Sodium (136-145) mmol/L Potassium (3.5-5.1) mmol/L Chloride (98-107) mmol/L Carbon Dioxide (21-32) mmol/L Anion Gap (3-11) BUN (6-23) mg/dl Creatinine (0.6-1.2) mg/dl Est Cr Clr Drug Dosing ml/min Est GFR ( Amer) ml/min Est GFR (Non-Af Amer) ml/min BUN/Creatinine Ratio (10-20) Glucose (70-99(Fasting)) mg/dl Calcium (8.5-10.1) mg/dl Total Bilirubin (0.2-1.0) mg/dl AST (13-39) U/L ALT (7-52) U/L Alkaline Phosphatase (34-104) U/L Troponin I High Sens (0-14) pg/ml Total Protein (6.0-8.3) gm/dl Albumin (3.4-5.0) gm/dl Globulin (2.5-4.0) gm/dl Albumin/Globulin Ratio (0.9-2) SARS-CoV-2, RNA, NAAT NEGATIVE (NEGATIVE) Blood Type O Positive Antibody Screen NEGATIVE Crossmatch See Detail Imaging Data Attestation: I personally reviewed and interpreted this imaging study as follows: My Impression: Chest x-raydialysis catheter in place. There is blunting of the right d iaphragm consistent with small effusion. There is mild increased interstitial markings but no focal infiltrate. She may have a degree of fluid overload versus chronic lung disease Radiologist's Impression: Chest X-Ray 05/11/22 06:18 SINGLE VIEW CHEST CLINICAL HISTORY: GI bleeding. FINDINGS: An AP, portable, upright chest radiograph is compared to study dated 08/17/2021. A right sided central venous catheter is new from previous. The tip projects over the right atrium. The heart is enlarged noting atherosclerotic calcification of the thoracic aorta. There is mild pulmonary vascular congestion. Chronic interstitial thickening is similar to previous. There are sm all pleural effusions with dependent consolidation. The lungs and pleural spaces are clear. No pneumothorax is seen. The bony thorax is grossly intact. Arthritic change is seen in the shoulders, left significantly greater than right. Superior subluxation of the right humeral head suggests chronic rotator cuff injury. Fusion hardware is noted at the thoracolumbar junction. IMPRESSION: 1. Cardiomegaly with pulmonary vascular congestion. 2. A right sided central venous catheter is new from previous. 3. Small pleural effusions with dependent consolidation. ACT 112: Negative or not required by law. Electronically signed by: Eulogio Gaspar M.D. 05/11/2022 7:17 AM ECG Data Indication: + weakness Rate (beats per minute): 50 Rhythm: + atrial fibrillation (With slow ventricular response) ECG Intervals/blocks: + Right Bundle branch block and + Normal QT ECG [place]: + Normal ECG ST segments: + Normal ST segments ECG Findings: no PACs or no PVCs Comparison ECG Date: no prior available MDM Narrative This patient comes in as described above. She was placed in room a 9. She arrived in the ER prior to my shift and orders had been placed when I went and saw her . she already had an IV established and she has her dialysis catheter also in her right chest she has been normotensive. She says she feels okay at rest. She has been typed and screened. I ordered a type and cross as she tells me hemoglobin 6.7 at dialysis. I think she will likely need blood. We did get back her electrolytes her potassium is 4.1. She has no acute EKG abnormalities troponin is mildly elevated but she has no chest pain or shortness of breath at rest. She did miss dialysis today and will likely need dialysis in the hospital she will likely need a transfusion as well I have consulted the admitting team her COVID test was negative. Her hemoglobin came back low here at 6.4. She does tend to run in the 8 range. She has been typed and crossed. She will likely need a transfusion but will likely need to be coordinated with dialysis so she does not get fluid overloaded. I have consulted Dr. Edgar, the [facility] hospitalist. I also discussed the case with Dr. Galindo who is her ne phrologist. She is going to see the patient as well in the ED and they are going to dialyze her and give her blood while she is being dialyzed. She has been typed and crossed. I have consented her for blood transfusion she had them before and answered all of her questions. The written consent is on the chart. She will be admitted and get transfused as well as be dialyzed. Continuous cardiac monitoring: Orders placed in EMR for continuous cardiac monitoring. Upon my interpretation, the patient was noted to be in sinus bradycardia with a rate of 50. Impression & Plan Acute GI bleeding, History of renal dialysis, ESRD on hemodialysis, Lab test negative for COVID-19 virus Discharge Plan Visit Data Chief Complaint: Rectal Bleed Stated Complaint: RECTAL BLEEDING ED Provider: Frank Frederick Discharge Problem: Acute GI bleeding, History of renal dialysis, ESRD on hemodialysis, Lab test negative for COVID-19 virus Patient Disposition: Admitted As Inpatient Discharge Instructions Interventions: ED Discharge Assessment Last Done: 05/11/22 09:12
[2022-05-11] MEDS ORDERED: SODIUM CHLORIDE 0.9% 250 ML IV PRN ×2 (06:56→08:47)
[2022-05-11 07:18] LABS: Albumin Globulin Ratio 1.7 (0.9-2); BUN Creatinine Ratio 16.7 (10-20); Bilirubin,Total 0.3 mg/dl (0.2-1.0); Calcium 7.7 mg/dl (8.5-10.1); Creatinine Clr Calc Pharmacy 9.4 ml/min; Est GFR (African American) 12.5 ml/min; Est GFR (Non-African American) 10.8 ml/min; Globulin 1.8 gm/dl (2.5-4.0); Potassium 4.1 mmol/L (3.5-5.1); Total Protein 4.8 gm/dl (6.0-8.3)
--- NOTE | 2022-05-11 07:20 | XRay Report ---
SINGLE VIEW CHEST CLINICAL HISTORY: GI bleeding. FINDINGS: An AP, portable, upright chest radiograph is compared to study dated 08/17/2021. A right hossein ed central venous catheter is new from previous. The tip projects over the right atrium. The heart is enlarged noting atherosclerotic calcification of the thoracic aorta. There is mild pulmonary vascula r congestion. Chronic interstitial thickening is similar to previous. There are small pleural effusio ns with dependent consolidation. The lungs and pleural spaces are clear. No pneumothorax is seen. The bony thorax is grossly intact. Arthritic change is seen in the shoulders, left significantly greater than right. Superior subluxation of the right humeral head suggests chronic rotator cuff injury. Fus ion hardware is noted at the thoracolumbar junction. IMPRESSION: 1. Cardiomegaly with pulmonary vascular congestion. 2. A right sided central venous catheter is new from previous. 3. Small pleural effusions with dependent consolidation. ACT 112: Negative or not required by law. Electronically signed by: Eulogio Gaspar M.D. 05/11/2022 7:17 AM
[2022-05-11 07:29] LABS: INR 1.1 (0.9-1.1); Partial Thromboplastin Ratio 0.8; Partial Thromboplastin Time 22.5 Seconds (21.0-31.0); Prothrombin Time 11.9 Seconds (9.0-12.0)
[2022-05-11 07:38] LABS: Hematocrit (blood only) 20.2 % (37.0-47.0); Hemoglobin 6.4 g/dl (12.0-16.0); Mean Corpuscular Hemoglobin 32.7 pg (25.0-34.0); Mean Corpuscular Hgb Conc 31.7 g/dL (32.0-36.0); Mean Corpuscular Volume 103.1 fL (80.0-100.0); Mean Platelet Volume 11.5 fL (9.4-12.4); Platelet Count 127 K/uL (130-400); RDW Standard Deviation 59.7 fL (36.4-46.3); Red Blood Count 1.96 M/uL (4.20-5.40); White Blood Count 5.32 K/ul (4.8-10.8)
[2022-05-11 07:44] LABS: Basophils # (auto) 0.03 K/uL (0-0.2); Basophils % (auto) 0.6 %; Eosinophils # (auto) 0.05 K/uL (0-0.50); Eosinophils % (auto) 0.9 %; Immature Granulocytes # (auto) 0.01 K/uL (0.01-0.20); Immature Granulocytes % (auto) 0.2 %; Lymphocytes # (auto) 0.65 K/uL (1.2-3.4); Lymphocytes % (auto) 12.2 %; Monocytes # (auto) 0.33 K/uL (0.11-0.59); Monocytes % (auto) 6.2 %; Neutrophils # (auto) 4.25 K/uL (1.40-6.50); Neutrophils % (auto) 79.9 %; Ovalocytes 1+
--- NOTE | 2022-05-11 09:02 | History & Physical Report ---
Date of Service May 11, 2022 Assessment & Plan (1) Acute blood loss anemia: Plan: Hgb 6.4 on admission, increased to 9.4 s/p 2U PRBCs, continue to trend H/H Hx upper GIB, remote history 2019 of esophageal varices, however this sounds more likely to be lower GI given BRBPR GI consulted and appreciate recs, for colonoscopy/EGD tomorrow AM, bowel prep to begin this afternoon PPI transitioned to IV BID until EGD completed Deferring octreotide as no evidence of varices on most recent EGD, and less suspicious of upper GI bleeding Case personally discussed with [facility] GI service (2) Acute GI bleeding: Plan: see above (3) ESRD on hemodialysis: Plan: Dialysis TTS, follows with Dr. Will who is consulted today Will have dialysis today, also receiving max dose DERRICK in outpatient setting Dose medications for eGFR less than 10 Continue on low-potassium, low phosphorus diet, and continue on phosphate binder Case personally discussed with Dr. Will (4) Esophageal varices: Plan: History of in 2019, however not noted on EGD 04/06/22 Defer octreotide, does not appear to be upper GI source this admission (5) Chronic diastolic heart failure: Plan: History of, on furosemide 80mg BID Holding in setting of low BP and GI bleeding, will go for dialysis today (6) Diabetes mellitus type 2 with complications: Plan: Insulin basal/bolus and adjust as necessary based on BSGs qACHS (7) Cirrhosis: Plan: History of, LFTs and T Bili normal (8) CAD (coronary artery disease): Plan: With troponin 23 on admission, no chest pain or anginal equivalents EKG without ST or T wave changes, Atrial fibrillation with slow ventricular response Plan SCD for DVT ppx DNR/DNI, discussed with patient clear liquid diet for now with NPO at midnight History of Present Illness Chief Complaint: Acute blood loss anemia Primary Care Provider: Agatha Alfaro DO 82-year-old female past medical history significant for end-stage renal disease on hemodialysis T//, DM 2, neurogenic bladder, cirrhosis with history of esophageal varices, HFpEF, CVA, CAD, hypertension, hyperlipidemia, RLS, hypothyroidism presented to the ER at the guidance of nephrology for a hemoglobin of 6.7 on outpatient lab work. Patient endorses that she has been feeling more tired lately, does have a history of upper GI bleed most recently in early April of this year, found to have telangiectasias on EGD that were cauterized at that time. Patient herself does not endorse any black stools, but rather endorses BRBPR a couple of times over the last couple of weeks, specifically when she wipes. She has a known history of hemorrhoids with hemorrhoidal bleeding as well. In the ER patient noted to be hemodynamically stable, saturating well on room air. Lab work notable for hemoglobin of 6.4 with a macrocytic MCV 103. She was also noted to have a creatinine of 3.65, she had not had dialysis yet today. Alk phos of 171 which is chronic, troponin 23.0 without evidence of ACS or chest pain, COVID-negative. Hospitalist service was consulted for admission for acute blood loss anemia and suspected lower GI bleed. Allergies Allergy/AdvReac Type Severity Reaction Status Date / Time sulfamethoxazole AdvReac Unknown Verified 04/14/22 07:00 [From Bactrim] trimethoprim [From Bactrim] AdvReac Unknown Verified 04/14/22 07:00 Home Medications Medication Instructions Recorded Confirmed Type cholecalciferol (vitamin D3) 25 2,000 unit PO QAM 05/29/18 04/14/22 History mcg (1,000 unit) capsule (Vitamin D3) cranberry fruit concentrate 250 mg 500 mg PO QAM 05/29/18 04/14/22 History chewable tablet (Azo Cranberry) omega-3s 300 [id number]-other 1 cap PO QAM 05/29/18 04/14/22 History [id number] oil 1,000 mg capsule ([place]-3 Fish Oil) blood sugar diagnostic (Blood #100 ea 10/12/20 04/14/22 Rx Glucose Test strips) ascorbic acid (vitamin C) 500 mg 1,000 mg PO QAM 11/12/20 04/14/22 History tablet (Vitamin C) cyanocobalamin (vitamin B-12) 1,000 mcg PO QAM 11/12/20 04/14/22 History 1,000 mcg tablet (Vitamin B-12) tamsulosin 0.4 mg capsule (Flomax) 0.4 mg PO QAM 11/12/20 04/14/22 History bethanechol chloride 50 mg tablet 50 mg PO BID #180 tabs 04/19/21 04/14/22 Rx atorvastatin 10 mg tablet (Lipitor) 10 mg PO HS #90 tabs 11/18/21 04/14/22 Rx loperamide 2 mg capsule 2 mg PO TID PRN Diarrhea 12/02/21 04/14/22 History (Anti-Diarrheal (loperamide)) Saccharomyces boulardii 250 mg 250 mg PO BID #180 caps 12/05/21 04/14/22 Rx capsule (Florastor) diaper,brief,adult,disposable #150 ea 12/07/21 04/14/22 Rx (Fitted Briefs X-Large) doxazosin 4 mg tablet 4 mg PO QAM 12/07/21 04/14/22 History hydrocortisone 2.5 % topical cream 1 applic UT UD PRN hemorrhoids 12/07/21 04/14/22 History with perineal applicator hydrocortisone acetate 25 mg 25 mg UT QAM PRN Hemorrhoids 12/07/21 04/14/22 History rectal suppository (Anusol-HC) levothyroxine 112 mcg tablet 112 mcg PO QAM 12/07/21 04/14/22 History (Synthroid) linagliptin 5 mg tablet (Tradjenta) 5 mg PO QAM #90 tabs 12/07/21 04/14/22 Rx tramadol 50 mg tablet (Ultram) 50 mg PO BID PRN pain #60 tabs 12/31/21 04/14/22 Rx triamcinolone acetonide 0.05 % 1 applic topical BID #430 grams 01/18/22 04/14/22 Rx topical ointment amlodipine 10 mg tablet (Norvasc) 10 mg PO QAM #90 tabs 02/23/22 04/14/22 Rx ropinirole 0.5 mg tablet 0.5 - 1.5 mg PO UD #360 tabs 03/07/22 04/14/22 Rx furosemide 80 mg tablet 80 mg PO BID 03/20/22 04/14/22 History sevelamer carbonate 800 mg tablet 800 mg PO TID 03/20/22 04/14/22 History vitamin E 400 unit tablet 400 mg PO QAM 03/20/22 04/14/22 History famotidine 40 mg tablet 40 mg PO BID #60 tabs 03/21/22 04/14/22 Rx calcium carbonate 500 mg calcium 0 mg PO QAM 04/05/22 04/14/22 History (1,250 mg) tablet pantoprazole 40 mg tablet,delayed 40 mg PO BID #60 tabs 04/17/22 Rx release (Protonix) methocarbamol 500 mg tablet 500 mg PO TID PRN muscle spasm #90 05/03/22 Rx tabs Past Med/Surg History Medical History Acute kidney injury superimposed on chronic kidney disease Anemia of chronic disease Anxiety Aortic stenosis CAD (coronary artery disease) Chronic diastolic heart failure Chronic hyponatremia Diabetes mellitus, type 2 Diabetic retinopathy Elevated troponin Essential tremor MINOR IN HAND Fatty liver First degree AV block GERD without esophagitis Hearing deficit no hearing aids Hiatal hernia History of CVA (cerebrovascular accident) (2019) ~3-4 years ago, woke up with weakness in her rt hand; L lacunar infarct; previously on plavix>no residual effects History of GI bleed hx 08/2021, given transfusion-per medical record History of renal dialysis tuesdays, , and saturdays currently; catheter in pt's neck Hx of atrial fibrillation, no current medication per medical report Hyperlipidemia Hypertension Hypothyroidism 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 Osteoarthritis Poor historian RBBB f/u dr. aguirre Recurrent UTI Resistant hypertension Restless legs Urinary urgency Venous insufficiency Weakness Surgical History H/O varicose vein ligation History of back surgery (04/2010) X 2 History of bladder suspension procedure X 2 History of colonoscopy History of esophagogastroduodenoscopy (EGD) History of esophagogastroduodenoscopy (EGD) 04/06/[address] [facility] with Dr. Mich Pacheco- EGD- Gastric antral vascular ectasia with bleeding, treated with argon plasma coagulation (APC); Few angioectasias in the duodenum, treated with APC History of tooth extraction Hx of cardiac catheterization 08/2021, [facility] w/Dr. Moura for increased cardiac pressures; no stents S/P carpal tunnel release RT/LEFT S/P hysterectomy ANDRIA S/P knee replacement RT/LEFT S/P pericardiocentesis 08/2021, [facility], w/dr moura S/P trigger finger release Family History Father Alcohol abuse Heart disease Myocardial infarction Hypertension Sister Pancreatic cancer Diabetes Breast cancer Brother Diabetes Alcohol abuse Stroke Other Cancer No family history of adverse response to anesthesia Denies family history of Ovarian cancer Prostate cancer Colorectal cancer Social History Smoking Status: Never smoker Second Hand Exposure: Yes (long time ago, 40+ years ago); Hx Alcohol Use: No Hx Substance Use: No Preferred Language: Maltese Communication Ability: Effective Visual Impairment: No Limitations Hearing Ability: Normal Product Development Technician Required: No Beliefs That Will Affect Care: None marital status: Single Current Living Situation: Alone current occupational status: retired How many Children do You have: 2 Other Information That Helps Us Care for You: No Feels Safe at Home: Yes Safety Concerns: Feels Safe At This Time Childhood Exposure to Second-Hand Smoke: No Diet Comment: regular caffeine: Yes (Coffee x 2 cups per day.) during the past year weight has: remained stable Dental Care, Regularly: No Physical Activity Frequency: Does not Exercise Seatbelt Use: always Sunscreen Use: Yes Assistive Devices: Denture - Upper, Denture - Lower, Glasses and Walker Review of Systems Review of Systems: All systems reviewed & are unremarkable except as noted in HPI & below Physical Exam Constitutional: WD/WN, vitals as above Respiratory: normal respiratory effort, lungs clear to auscultation Cardiovascular: RRR, no murmur, no edema Gastrointestinal (Abdomen): normal bowel sounds, soft, nontender, no hepatosplenomegaly Skin: no rashes, warm and dry pale Psychiatric: A+Ox3, euthymic affect Results & Data Results & Data ([facility]) Vital Signs (Past 12 Hours) Vital Signs Temp Pulse Pulse Resp BP Pulse Ox O2 Del Method 05/11/22 07:00 47 L 16 98 Room Air 05/11/22 06:42 47 L 18 103/30 L 05/11/22 06:16 36.6 C 51 L 18 PG Care Time/CCT Total # of Minutes Spent Total Time Spent with Patient: Total time spent is greater than 50% in coordination of care (as documented) at patient's floor/unit and/or counseling patient: Coding Level of Care Code 44815 INT INP/OBS CARE 3/75MIN Diagnoses Acute blood loss anemia D62 Acute GI bleeding K92.2 ESRD on hemodialysis N18.6; Z99.2 Esophageal varices I85.00 Chronic diastolic heart failure I50.32 Diabetes mellitus type 2 with complications E11.8 Cirrhosis K74.60 CAD (coronary artery disease) I25.10
[2022-05-11] MEDS ORDERED: GLUCAGON FOR INJ 1 MG VIAL SQ PRN (09:10)
[2022-05-11] MEDS ORDERED: CARBOHYDRATES FOR HYPOGLYCEMIA PO PRN (09:10)
[2022-05-11] MEDS ORDERED: GLUCOSE 40% GEL 15 GM TUBE PO PRN (09:10)
[2022-05-11] MEDS ORDERED: METHOCARBAMOL 500 MG TABLET PO PRN (09:10)
[2022-05-11] MEDS ORDERED: ACETAMINOPHEN 325 MG TAB PO PRN (09:10)
[2022-05-11] MEDS ORDERED: DEXTROSE 50% 50 ML SYRINGE IV PRN (09:10)
[2022-05-11] MEDS ORDERED: ONDANSETRON INJ 2 MG/ML 2 ML VIAL IV PRN (09:10)
[2022-05-11] MEDS ORDERED: GLUCOSE 10 TAB/TUBE PO PRN (09:10)
--- NOTE | 2022-05-11 09:37 | Gastrointestinal Consultation ---
Date of Consultation May 11, 2022 Assessment & Plan (1) Acute GI bleeding: (2) Anemia: Plan Discussed case with Dr. Pacheco who advised on plan. - Will let patient receive her dialysis today as well as the 2 units of prbc that have been ordered. will plan to prep her tonight and proceed with both EGD and Colonoscopy for tomorrow morning. Discussed with nephrology as well as primary team. - continue to monitor h/h, transfuse as needed. - continue with protonix 40mg bid. History of Present Illness Reason for Consultation: anemia / GIB Requesting Physician: Jania Coughlin DO Attending Physician: Jania Coughlin DO History of Present Illness Patient is an 82 year old female with pmhx of end-stage renal disease who presented to the ED from dialysis with complaints of rectal bleeding. She was hospitalized in April 2022 and had an EGD which showed GAVE which was treated with APC as well as an angioectasia in the duodenum that was also coagulated. While she was at dialysis today her hgb was found to be low and she was sent to ED for further evaluation without having received dialysis. She tells me that she has had intermittent blood on the toilet tissue with wiping that started yesterday - she tells me that this started on as being only minimal but did increase in severity throughout the day where she did see some in the toilet bowl. no changes in bowels. she denies diarrhea or constipation. she tells me stools can be dark from time to time. she denies blood thinners or nsaid use. She is currently getting her dialysis and other than feeling cold and fatigued she feels okay. she denies any nausea, vomiting, heartburn, chest pain, sob, or abdominal pain. 05/11/22 hgb 6.4, INR 1.1, bun 61, creatinine 3.65. EGD 04/06/22 GAVE with bleeding - treated with APC, few angioectasias in duodenum treated with APC. VCE- blood in duodenum. colonoscopy 2020 internal hemorrhoids and diverticulosis. Allergies Allergy/AdvReac Type Severity Reaction Status Date / Time sulfamethoxazole AdvReac Unknown Verified 04/14/22 07:00 [From Bactrim] trimethoprim [From Bactrim] AdvReac Unknown Verified 04/14/22 07:00 Home Medications Medication Instructions Recorded Confirmed Type cholecalciferol (vitamin D3) 25 2,000 unit PO QAM 05/29/18 04/14/22 History mcg (1,000 unit) capsule (Vitamin D3) cranberry fruit concentrate 250 mg 500 mg PO QAM 05/29/18 04/14/22 History chewable tablet (Azo Cranberry) omega-3s 300 xx-vfe-[id number]-other 1 cap PO QAM 05/29/18 04/14/22 History [id number] oil 1,000 mg capsule ([place]-3 Fish Oil) blood sugar diagnostic (Blood #100 ea 10/12/20 04/14/22 Rx Glucose Test strips) ascorbic acid (vitamin C) 500 mg 1,000 mg PO QAM 11/12/20 04/14/22 History tablet (Vitamin C) cyanocobalamin (vitamin B-12) 1,000 mcg PO QAM 11/12/20 04/14/22 History 1,000 mcg tablet (Vitamin B-12) tamsulosin 0.4 mg capsule (Flomax) 0.4 mg PO QAM 11/12/20 04/14/22 History bethanechol chloride 50 mg tablet 50 mg PO BID #180 tabs 04/19/21 04/14/22 Rx atorvastatin 10 mg tablet (Lipitor) 10 mg PO HS #90 tabs 11/18/21 04/14/22 Rx loperamide 2 mg capsule 2 mg PO TID PRN Diarrhea 12/02/21 04/14/22 History (Anti-Diarrheal (loperamide)) Saccharomyces boulardii 250 mg 250 mg PO BID #180 caps 12/05/21 04/14/22 Rx capsule (Florastor) diaper,brief,adult,disposable #150 ea 12/07/21 04/14/22 Rx (Fitted Briefs X-Large) doxazosin 4 mg tablet 4 mg PO QAM 12/07/21 04/14/22 History hydrocortisone 2.5 % topical cream 1 applic IA UD PRN hemorrhoids 12/07/21 04/14/22 History with perineal applicator hydrocortisone acetate 25 mg 25 mg IA QAM PRN Hemorrhoids 12/07/21 04/14/22 History rectal suppository (Anusol-HC) levothyroxine 112 mcg tablet 112 mcg PO QAM 12/07/21 04/14/22 History (Synthroid) linagliptin 5 mg tablet (Tradjenta) 5 mg PO QAM #90 tabs 12/07/21 04/14/22 Rx tramadol 50 mg tablet (Ultram) 50 mg PO BID PRN pain #60 tabs 12/31/21 04/14/22 Rx triamcinolone acetonide 0.05 % 1 applic topical BID #430 grams 01/18/22 04/14/22 Rx topical ointment amlodipine 10 mg tablet (Norvasc) 10 mg PO QAM #90 tabs 02/23/22 04/14/22 Rx ropinirole 0.5 mg tablet 0.5 - 1.5 mg PO UD #360 tabs 03/07/22 04/14/22 Rx furosemide 80 mg tablet 80 mg PO BID 03/20/22 04/14/22 History sevelamer carbonate 800 mg tablet 800 mg PO TID 03/20/22 04/14/22 History vitamin E 400 unit tablet 400 mg PO QAM 03/20/22 04/14/22 History famotidine 40 mg tablet 40 mg PO BID #60 tabs 03/21/22 04/14/22 Rx calcium carbonate 500 mg calcium 0 mg PO QAM 04/05/22 04/14/22 History (1,250 mg) tablet pantoprazole 40 mg tablet,delayed 40 mg PO BID #60 tabs 04/17/22 Rx release (Protonix) methocarbamol 500 mg tablet 500 mg PO TID PRN muscle spasm #90 05/03/22 Rx tabs Patient History Medical History Acute kidney injury superimposed on chronic kidney disease Anemia of chronic disease Anxiety Aortic stenosis CAD (coronary artery disease) Chronic diastolic heart failure Chronic hyponatremia Diabetes mellitus, type 2 Diabetic retinopathy Elevated troponin Elevated troponin Essential tremor MINOR IN HAND Fatty liver First degree AV block GERD without esophagitis Hearing deficit no hearing aids Hiatal hernia History of CVA (cerebrovascular accident) (2018) ~3-4 years ago, woke up with weakness in her rt hand; L lacunar infarct; previously on plavix>no residual effects History of GI bleed hx 08/2021, given transfusion-per medical record History of renal dialysis tuesdays, , and saturdays currently; catheter in pt's neck Hx of atrial fibrillation, no current medication per medical report Hyperlipidemia Hypertension Hypothyroidism Metabolic acidosis 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 Osteoarthritis Poor historian RBBB f/u dr. aguirre Recurrent UTI Resistant hypertension Restless legs Urinary urgency Venous insufficiency Weakness Surgical History H/O varicose vein ligation History of back surgery (04/2010) X 2 History of bladder suspension procedure X 2 History of colonoscopy History of esophagogastroduodenoscopy (EGD) History of esophagogastroduodenoscopy (EGD) 04/06/22 at [facility] with Dr. Mich Pacheco- EGD- Gastric antral vascular ectasia with bleeding, treated with argon plasma coagulation (APC); Few angioectasias in the duodenum, treated with APC History of tooth extraction Hx of cardiac catheterization 08/2021, [facility] w/Dr. Moura for increased cardiac pressures; no stents S/P carpal tunnel release RT/LEFT S/P hysterectomy ANDRIA S/P knee replacement RT/LEFT S/P pericardiocentesis 08/2021, [place], w/dr moura S/P trigger finger release Family History Father Alcohol abuse Heart disease Myocardial infarction Hypertension Sister Pancreatic cancer Diabetes Breast cancer Brother Diabetes Alcohol abuse Stroke Other Cancer No family history of adverse response to anesthesia Denies family history of Ovarian cancer Prostate cancer Colorectal cancer Social History Smoking Status: Unknown if ever smoked Second Hand Exposure: Yes (long time ago, 40+ years ago); Hx Alcohol Use: No Hx Substance Use: No Preferred Language: Lao Communication Ability: Effective Visual Impairment: No Limitations Hearing Ability: Normal Grant Coordinator Required: No Beliefs That Will Affect Care: None marital status: Single Current Living Situation: Alone current occupational status: retired How many Children do You have: 2 Feels Safe at Home: Yes Childhood Exposure to Second-Hand Smoke: No Diet Comment: regular caffeine: Yes (Coffee x 2 cups per day.) during the past year weight has: remained stable Dental Care, Regularly: No Physical Activity Frequency: Does not Exercise Seatbelt Use: always Sunscreen Use: Yes Assistive Devices: Walker Review of Systems Review of Systems: All systems reviewed & are unremarkable except as noted in HPI & below Constitutional: + weakness Physical Exam Constitutional: WD/WN, vitals as above Respiratory: normal respiratory effort, lungs clear to auscultation Cardiovascular: RRR, no murmur, no edema Gastrointestinal (Abdomen): normal bowel sounds, soft, nontender, no hepatosplenomegaly Skin: no rashes, warm and dry Psychiatric: Orientation: alert and oriented x 3 Affect: euthymic affect Results & Data ([facility]) Vital Signs (Past 12 Hours) Vital Signs Temp Pulse Pulse Resp BP BP Pulse Ox 05/11/22 09:13 36.5 C 48 L 18 118/55 L 05/11/22 08:30 48 L 15 112/52 L 98 05/11/22 08:00 47 L 20 106/33 L 05/11/22 07:30 47 L 20 100/41 L 05/11/22 07:00 52 L 15 111/53 L 05/11/22 07:00 47 L 16 98 05/11/22 06:42 47 L 18 103/30 L 05/11/22 06:16 36.6 C 51 L 18 O2 Del Method O2 Flow Rate 05/11/22 09:13 05/11/22 08:30 Room Air 05/11/22 08:00 Room Air 99 05/11/22 07:30 05/11/22 07:00 05/11/22 07:00 Room Air 05/11/22 06:42 05/11/22 06:16 PG Care Time/CCT Total # of Minutes Spent Total Time Spent with Patient: Total time spent is greater than 50% in coordination of care (as documented) at patient's floor/unit and/or counseling patient: Coding Level of Care Code 94119 INT INP/OBS CARE 2/55MIN Diagnoses Acute GI bleeding K92.2 Anemia D64.9 Anemia type: unspecified type Time Spent (min) 56 (2) Anemia Anemia type: unspecified type Qualified Code(s): D64.9 - Anemia, unspecified
[2022-05-11] MEDS ORDERED: LANTUS PER UNIT CHARGE SQ SCH (10:00)
--- NOTE | 2022-05-11 10:14 | Nephrology Consultation ---
Date of Consultation May 11, 2022 Assessment & Plan (1) ESRD on hemodialysis: (2) Acute GI bleeding: (3) Anemia: Plan ESRD, on hemodialysis via right IJ tunneled dialysis catheter on TTS at [facility]. Has history of GI bleeding with AVM, presented with bright red blood per rectum and anemia with hemoglobin 6.4. She was due for dialysis this morning. Blood pressure, volume status and electrolyte acceptable. -- Will schedule for dialysis now, give 2 units of PRBC during dialysis to avoid excessive volume overload. -- Continue on low-potassium, low phosphorus diet, continue on phosphate binder. -- Dose medications for eGFR less than 10 -- appreciate GI recommendation and further management Will follow Thank you for allowing me to participate in your patient's care. It was a pleasure to see Sully. History of Present Illness Reason for Consultation: End-stage renal disease, on hemodialysis, admitted with acute GI bleeding. Attending Physician: Jania Coughlin, History of Present Illness Mrs. Sully Faria is a 82 year-old female with ESRD on HD, chronic GI bleeding, admitted to the hospital with acute GI bleeding and anemia. Nephrology consult was requested to provide hemodialysis. EMR records are reviewed in detail in patient's visit. Sully has been noticing occasional bright red per rectum over last few days specially when she wipes herself after bowel movement. Her hemoglobin was 8.2 last week. This morning reports of her hemoglobin from Sunday came back at 6.7. She was due for dialysis today. However since she has been having ongoing bleeding this morning she decided to come to ER for further evaluation. In ER her hemoglobin was 6.4. Overall she has been feeling weak and tired but did not notice any significant shortness of breath or chest pain. Electrolyte was acceptable for her ESRD status. She was slightly volume overloaded but blood pressure was well controlled and no respiratory distress. She has been having low hemoglobin and had extensive GI workup over last few months showing concern for AV malformation and had cauterization before. She also has hemorrhoid and has been having on and off rectal bleeding. She has been on high dose of erythropoietin stimulating agent but still requiring frequent blood transfusion. Last blood transfusion was on 04/14/2022 and had 2 units of PRBC. Since then hemoglobin again has been slowly trending down. ESRD secondary to hypertension, DKD, and renovascular disease started on hemodialysis during hospitalization at [facility] in August 2021, on TTS HD at [facility] via [facility]DC, refused AVF. IDWG typically low and she continues to make a good amount of urine. Medical history is also notable for non-obstructive coronary artery disease, HFpEF, severe aortic stenosis, atrial fibrillation, chronic anemia, imaging evidence of cirrhosis, NAFLD, hypertension, diabetes mellitus type II, neurogenic bladder, OA/DJD, and hypothyroidism. Overall she has been feeling weak and tired but denies any other symptoms. Allergies Allergy/AdvReac Type Severity Reaction Status Date / Time sulfamethoxazole AdvReac Unknown Verified 04/14/22 07:00 [From Bactrim] trimethoprim [From Bactrim] AdvReac Unknown Verified 04/14/22 07:00 Home Medications Medication Instructions Recorded Confirmed Type cholecalciferol (vitamin D3) 25 2,000 unit PO QAM 05/29/18 04/14/22 History mcg (1,000 unit) capsule (Vitamin D3) cranberry fruit concentrate 250 mg 500 mg PO QAM 05/29/18 04/14/22 History chewable tablet (Azo Cranberry) omega-3s 300 [id number]-[id number]-other 1 cap PO QAM 05/29/18 04/14/22 History [id number] oil 1,000 mg capsule ([place]-3 Fish Oil) blood sugar diagnostic (Blood #100 ea 10/12/20 04/14/22 Rx Glucose Test strips) ascorbic acid (vitamin C) 500 mg 1,000 mg PO QAM 11/12/20 04/14/22 History tablet (Vitamin C) cyanocobalamin (vitamin B-12) 1,000 mcg PO QAM 11/12/20 04/14/22 History 1,000 mcg tablet (Vitamin B-12) tamsulosin 0.4 mg capsule (Flomax) 0.4 mg PO QAM 11/12/20 04/14/22 History bethanechol chloride 50 mg tablet 50 mg PO BID #180 tabs 04/19/21 04/14/22 Rx atorvastatin 10 mg tablet (Lipitor) 10 mg PO HS #90 tabs 11/18/21 04/14/22 Rx loperamide 2 mg capsule 2 mg PO TID PRN Diarrhea 12/02/21 04/14/22 History (Anti-Diarrheal (loperamide)) Saccharomyces boulardii 250 mg 250 mg PO BID #180 caps 12/05/21 04/14/22 Rx capsule (Florastor) diaper,brief,adult,disposable #150 ea 12/07/21 04/14/22 Rx (Fitted Briefs X-Large) doxazosin 4 mg tablet 4 mg PO QAM 12/07/21 04/14/22 History hydrocortisone 2.5 % topical cream 1 applic NM UD PRN hemorrhoids 12/07/21 04/14/22 History with perineal applicator hydrocortisone acetate 25 mg 25 mg NM QAM PRN Hemorrhoids 12/07/21 04/14/22 History rectal suppository (Anusol-HC) levothyroxine 112 mcg tablet 112 mcg PO QAM 12/07/21 04/14/22 History (Synthroid) linagliptin 5 mg tablet (Tradjenta) 5 mg PO QAM #90 tabs 12/07/21 04/14/22 Rx tramadol 50 mg tablet (Ultram) 50 mg PO BID PRN pain #60 tabs 12/31/21 04/14/22 Rx triamcinolone acetonide 0.05 % 1 applic topical BID #430 grams 01/18/22 04/14/22 Rx topical ointment amlodipine 10 mg tablet (Norvasc) 10 mg PO QAM #90 tabs 02/23/22 04/14/22 Rx ropinirole 0.5 mg tablet 0.5 - 1.5 mg PO UD #360 tabs 03/07/22 04/14/22 Rx furosemide 80 mg tablet 80 mg PO BID 03/20/22 04/14/22 History sevelamer carbonate 800 mg tablet 800 mg PO TID 03/20/22 04/14/22 History vitamin E 400 unit tablet 400 mg PO QAM 03/20/22 04/14/22 History famotidine 40 mg tablet 40 mg PO BID #60 tabs 03/21/22 04/14/22 Rx calcium carbonate 500 mg calcium 0 mg PO QAM 04/05/22 04/14/22 History (1,250 mg) tablet pantoprazole 40 mg tablet,delayed 40 mg PO BID #60 tabs 04/17/22 Rx release (Protonix) methocarbamol 500 mg tablet 500 mg PO TID PRN muscle spasm #90 05/03/22 Rx tabs Patient History Medical History Acute kidney injury superimposed on chronic kidney disease Anemia of chronic disease Anxiety Aortic stenosis CAD (coronary artery disease) Chronic diastolic heart failure Chronic hyponatremia Diabetes mellitus, type 2 Diabetic retinopathy Elevated troponin Elevated troponin Essential tremor MINOR IN HAND Fatty liver First degree AV block GERD without esophagitis Hearing deficit no hearing aids Hiatal hernia History of CVA (cerebrovascular accident) (2019) ~3-4 years ago, woke up with weakness in her rt hand; L lacunar infarct; previously on plavix>no residual effects History of GI bleed hx 08/2021, given transfusion-per medical record History of renal dialysis tuesdays, , and saturdays currently; catheter in pt's neck Hx of atrial fibrillation, no current medication per medical report Hyperlipidemia Hypertension Hypothyroidism Metabolic acidosis 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 Osteoarthritis Poor historian RBBB f/u dr. aguirre Recurrent UTI Resistant hypertension Restless legs Urinary urgency Venous insufficiency Weakness Surgical History H/O varicose vein ligation History of back surgery (04/2010) X 2 History of bladder suspension procedure X 2 History of colonoscopy History of esophagogastroduodenoscopy (EGD) History of esophagogastroduodenoscopy (EGD) 04/06/[address] [facility] with Dr. Mich Pacheco- EGD- Gastric antral vascular ectasia with bleeding, treated with argon plasma coagulation (APC); Few angioectasias in the duodenum, treated with APC History of tooth extraction Hx of cardiac catheterization 08/2021, [place] w/Dr. Moura for increased cardiac pressures; no stents S/P carpal tunnel release RT/LEFT S/P hysterectomy ANDRIA S/P knee replacement RT/LEFT S/P pericardiocentesis 08/2021, [place], w/dr moura S/P trigger finger release Family History Father Alcohol abuse Heart disease Myocardial infarction Hypertension Sister Pancreatic cancer Diabetes Breast cancer Brother Diabetes Alcohol abuse Stroke Other Cancer No family history of adverse response to anesthesia Denies family history of Ovarian cancer Prostate cancer Colorectal cancer Social History Smoking Status: Unknown if ever smoked Second Hand Exposure: Yes (long time ago, 40+ years ago); Hx Alcohol Use: No Hx Substance Use: No Preferred Language: Ukrainian Communication Ability: Effective Visual Impairment: No Limitations Hearing Ability: Normal 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 Beliefs That Will Affect Care: None marital status: Single Current Living Situation: Alone current occupational status: retired How many Children do You have: 2 Feels Safe at Home: Yes Childhood Exposure to Second-Hand Smoke: No Diet Comment: regular caffeine: Yes (Coffee x 2 cups per day.) during the past year weight has: remained stable Dental Care, Regularly: No Physical Activity Frequency: Does not Exercise Seatbelt Use: always Sunscreen Use: Yes Assistive Devices: Walker Review of Systems Review of Systems: Detailed review of system was done and pertinent positives and negatives are mentioned above. Physical Exam Constitutional: WD/WN, vitals as above + ill appearing; no acute distress Eyes: + anicteric sclerae Neck: normal visual inspection Respiratory: no respiratory distress and no cough Auscultation: lungs clear to auscultation bilaterally Cardiovascular: Rate/Rhythm: regular rate and regular rhythm Heart Sounds: normal S1 and normal S2 Extremities: no edema Gastrointestinal (Abdomen): Inspection/Auscultation: abdomen normal to inspection and normal bowel sounds Percussion/Palpation: abdomen soft; abdomen nontender Musculoskeletal: Extremities: extremities normal to inspection Skin: no rashes Neurologic: no focal motor deficits and not confused Psychiatric: Orientation: alert and oriented x 3 Affect: euthymic affect Results & Data ([facility]) Vital Signs (Past 12 Hours) Vital Signs Temp Pulse Pulse Pulse Resp BP BP 05/11/22 09:30 48 L 123/53 L 05/11/22 09:03 36.5 C 53 L 05/11/22 09:46 36.5 C 56 L 18 122/54 L 05/11/22 09:30 36.5 C 48 L 18 123/53 L 05/11/22 09:13 36.5 C 48 L 18 118/55 L 05/11/22 08:30 48 L 15 112/52 L 05/11/22 08:00 47 L 20 106/33 L 05/11/22 07:30 47 L 20 100/41 L 05/11/22 07:00 52 L 15 111/53 L 05/11/22 07:00 47 L 16 05/11/22 06:42 47 L 18 103/30 L 05/11/22 06:16 36.6 C 51 L 18 Pulse Ox O2 Del Method O2 Flow Rate 05/11/22 09:30 05/11/22 09:03 05/11/22 09:46 95 05/11/22 09:30 97 05/11/22 09:13 05/11/22 08:30 98 Room Air 05/11/22 08:00 Room Air 99 05/11/22 07:30 05/11/22 07:00 05/11/22 07:00 98 Room Air 05/11/22 06:42 05/11/22 06:16 PG Care Time/CCT Total # of Minutes Spent Total Time Spent with Patient: Total time spent is greater than 50% in coordination of care (as documented) at patient's floor/unit and/or counseling patient: Coding Level of Care Code 36862 INT INP/OBS CARE 3/75MIN Diagnoses ESRD on hemodialysis N18.6; Z99.2 Acute GI bleeding K92.2 Anemia D64.9 Anemia type: unspecified type (3) Anemia Anemia type: unspecified type Qualified Code(s): D64.9 - Anemia, unspecified
--- NOTE | 2022-05-11 12:45 | Electrocardiogram Report ---
Test Reason : Blood Pressure : / mmHG Vent. Rate : 050 BPM Atrial Rate : 060 BPM P-R Int : 000 ms QRS Dur : 132 ms QT Int : 542 ms P-R-T Axes : 000 -14 -13 degrees QTc Int : 494 ms Atrial fibrillation with slow ventricular response Right bundle branch block Abnormal ECG When compared with ECG of 05-APR-2022 18:45, No significant change was found Confirmed by Jeffrey Mendez ([id number]) on 05/11/2022 12:45:04 PM Referred By: REFERRED SELF Confirmed By:Jeffrey Mendez
[2022-05-11 13:41] LABS: Hematocrit (blood only) 28.7 % (37.0-47.0); Hemoglobin 9.4 g/dl (12.0-16.0)
[2022-05-11] MEDS: ASCORBIC ACID 500 MG TAB PO SCH (13:44)
[2022-05-11] MEDS: BETHANECHOL CHL 25 MG TAB PO SCH ×2 (13:45→21:29)
[2022-05-11] MEDS: CYANOCOBALAMIN (B-12) 500 MCG TABLET PO SCH (13:45)
[2022-05-11] MEDS: SEVELAMER HCL 800 MG TABLET PO SCH ×3 (13:45→21:29)
[2022-05-11] MEDS: CALCIUM CARBONATE 1250MG TAB PO SCH (13:45)
[2022-05-11] MEDS: TAMSULOSIN HCL 0.4 MG CAP PO SCH (13:45)
[2022-05-11] MEDS: LEVOTHYROXINE SODIUM 112 MCG TABLET PO SCH (13:45)
[2022-05-11] MEDS: DOXAZosin MESYLATE 4 MG TAB PO SCH (13:45)
[2022-05-11] MEDS: INSULIN ASPART PER UNIT SC SCH ×3 (13:50→20:13)
[2022-05-11] MEDS: PANTOprazole 40 MG in SYRINGE 0 ML IV SCH ×2 (14:04→21:28)
[2022-05-11] MEDS: rOPINIRole HCL 0.25 MG TABLET PO SCH (14:06)
[2022-05-11] MEDS: LAVAGE SOLUTION 4000ML PO SCH ×2 (16:43→16:50)
[2022-05-11] MEDS ORDERED: rOPINIRole HCL 0.25 MG TABLET PO SCH (21:00)
[2022-05-11] MEDS: ATORVASTATIN 10 MG TAB PO SCH (21:28)
[2022-05-11] MEDS: rOPINIRole HCL 1 MG TABLET PO SCH (21:31)
[2022-05-12] MEDS: LAVAGE SOLUTION 4000ML PO SCH (02:56)
[2022-05-12] MEDS: LEVOTHYROXINE SODIUM 112 MCG TABLET PO SCH (05:47)
[2022-05-12] MEDS: INSULIN ASPART PER UNIT SC SCH ×4 (07:37→20:43)
--- NOTE | 2022-05-12 07:59 | Hospitalist Progress Note ---
Date of Service May 12, 2022 Assessment & Plan (1) Acute blood loss anemia: Plan: Hgb 6.4 on admission, increased to 9.4 s/p 2U PRBCs, 9.2 today 05/12 Hx upper GIB, remote history 2019 of esophageal varices, no evidence of such on EGD today 05/12/2022 GI consulted and appreciate recs: On EGD had gastric antral vascular ectasia treated with APC, and noted to have nonbleeding internal hemorrhoids on colonoscopy Continue PPI IV twice daily, transition to p.o. on discharge with follow-up EGD in 3 weeks Deferring octreotide as no evidence of varices on most recent EGD Repeat CBC in the morning to ensure no further decline in hemoglobin, anticipate may be able to discharge home if hemoglobin remains relatively stable and no further evidence of active bleeding (2) Acute GI bleeding: Plan: see above (3) ESRD on hemodialysis: Plan: Dialysis TTS, follows with Dr. Will who is consulted; will have dialysis tomorrow prior to anticipated discharge Dose medications for eGFR less than 10 Continue on low-potassium, low phosphorus diet, and continue on phosphate binder Case personally discussed with Dr. Will (4) Esophageal varices: Plan: History of in 2019, however not noted on EGD 04/06/22 Defer octreotide, no evidence of esophageal varices (5) Chronic diastolic heart failure: Plan: History of, on furosemide 80mg BID Holding in setting of low BP and GI bleeding, will go for dialysis tomorrow and can consider resuming as tolerated on discharge (6) Diabetes mellitus type 2 with complications: Plan: Insulin basal/bolus and adjust as necessary based on BSGs qACHS (7) Cirrhosis: Plan: History of, LFTs and T Bili normal (8) CAD (coronary artery disease): Plan: With troponin 23 on admission, no chest pain or anginal equivalents EKG without ST or T wave changes to suggest ACS Plan SCD for DVT ppx DNR/DNI, discussed with patient this admission Can resume a low fiber diet post procedures Telemetry for continued cardiac monitoring given recent GI bleed Admission and Anticipated Discharge Date Admission Date: May 11, 2022 Subjective No acute overnight events, hemodynamically stable overnight. Denies any abdominal pain today, underwent colonoscopy/EGD today. No complaints of chest pain or shortness of breath. Review of Systems Review of Systems: All systems reviewed & are unremarkable except as noted in Subjective Physical Exam Constitutional: WD/WN, vitals as above Respiratory: normal respiratory effort, lungs clear to auscultation Cardiovascular: RRR, no murmur, no edema Gastrointestinal (Abdomen): normal bowel sounds, soft, nontender, no hepatosplenomegaly Skin: no rashes, warm and dry Psychiatric: A+Ox3, euthymic affect Results & Data Results & Data ([facility]) Vital Signs (Past 12 Hours) Vital Signs Temp Pulse Resp BP Pulse Ox O2 Del Method 05/12/22 07:16 36.3 C L 60 19 159/65 H 100 Room Air 05/12/22 02:39 36.5 C 56 L 18 128/56 L 97 Room Air 05/11/22 22:36 36.4 C L 45 L 18 119/46 L 97 Room Air 05/11/22 20:24 Room Air PG Care Time/CCT Total # of Minutes Spent Total Time Spent with Patient: Total time spent is greater than 50% in coordination of care (as documented) at patient's floor/unit and/or counseling patient: Coding Level of Care Code 21386 SUB INP/OBS CARE 3/50MIN Diagnoses Acute blood loss anemia D62 Acute GI bleeding K92.2 ESRD on hemodialysis N18.6; Z99.2 Esophageal varices I85.00 Chronic diastolic heart failure I50.32 Diabetes mellitus type 2 with complications E11.8 Cirrhosis K74.60 CAD (coronary artery disease) I25.10
--- NOTE | 2022-05-12 08:16 | Anesthesiology Consultation ---
Date of Service May 12, 2022 Assessment & Plan Chart Review Chart Review: Acceptable Risk for Surgery and Patient NOT seen in Pre Admission Testing Consults Requested none ASA ASA4 Proposed Anesthesia Anesthesia Type: MAC Risk / Benefits Reviewed With: PT / POA / Parent / Guardian, Accepts Plan and Informed Consent Obtained History Surgery Operation Date: 05/12/22 16:30 Proposed Procedures p Colonoscopy EGD Dr. Pacheco - Mich Pacheco MD Height/Weight Height: 4 ft 9 in Weight: 65.8 kg Allergies Allergy/AdvReac Type Severity Reaction Status Date / Time sulfamethoxazole AdvReac Unknown Verified 04/14/22 07:00 [From Bactrim] trimethoprim [From Bactrim] AdvReac Unknown Verified 04/14/22 07:00 Medications Home Medications Medication Instructions Recorded Confirmed Last Taken cholecalciferol (vitamin D3) 25 2,000 unit PO QAM 05/29/18 04/14/22 12/11/21 mcg (1,000 unit) capsule (Vitamin D3) cranberry fruit concentrate 250 mg 500 mg PO QAM 05/29/18 04/14/22 12/11/21 chewable tablet (Azo Cranberry) omega-3s 300 [id number] 1 cap PO QAM 05/29/18 04/14/22 12/11/21 [id number] oil 1,000 mg capsule ([place]-3 Fish Oil) blood sugar diagnostic (Blood #100 ea 10/12/20 04/14/22 Unknown Glucose Test strips) ascorbic acid (vitamin C) 500 mg 1,000 mg PO QAM 11/12/20 04/14/22 12/11/21 tablet (Vitamin C) cyanocobalamin (vitamin B-12) 1,000 mcg PO QAM 11/12/20 04/14/22 12/11/21 1,000 mcg tablet (Vitamin B-12) tamsulosin 0.4 mg capsule (Flomax) 0.4 mg PO QAM 11/12/20 04/14/22 12/11/21 bethanechol chloride 50 mg tablet 50 mg PO BID #180 tabs 04/19/21 04/14/22 12/11/21 atorvastatin 10 mg tablet (Lipitor) 10 mg PO HS #90 tabs 11/18/21 04/14/22 12/11/21 loperamide 2 mg capsule 2 mg PO TID PRN Diarrhea 12/02/21 04/14/22 Unknown (Anti-Diarrheal (loperamide)) Saccharomyces boulardii 250 mg 250 mg PO BID #180 caps 12/05/21 04/14/22 12/11/21 capsule (Florastor) diaper,brief,adult,disposable #150 ea 12/07/21 04/14/22 Unknown (Fitted Briefs X-Large) doxazosin 4 mg tablet 4 mg PO QAM 12/07/21 04/14/22 12/12/21 04:00 hydrocortisone 2.5 % topical cream 1 applic [place] UD PRN hemorrhoids 12/07/21 04/14/22 Unknown with perineal applicator hydrocortisone acetate 25 mg 25 mg [place] QAM PRN Hemorrhoids 12/07/21 04/14/22 Unknown rectal suppository (Anusol-HC) levothyroxine 112 mcg tablet 112 mcg PO QAM 12/07/21 04/14/22 12/12/21 04:00 (Synthroid) linagliptin 5 mg tablet (Tradjenta) 5 mg PO QAM #90 tabs 12/07/21 04/14/22 12/11/21 tramadol 50 mg tablet (Ultram) 50 mg PO BID PRN pain #60 tabs 12/31/21 04/14/22 Unknown triamcinolone acetonide 0.05 % 1 applic topical BID #430 grams 01/18/22 04/14/22 Unknown topical ointment amlodipine 10 mg tablet (Norvasc) 10 mg PO QAM #90 tabs 02/23/22 04/14/22 Unknown ropinirole 0.5 mg tablet 0.5 - 1.5 mg PO UD #360 tabs 03/07/22 04/14/22 Unknown furosemide 80 mg tablet 80 mg PO BID 03/20/22 04/14/22 Unknown sevelamer carbonate 800 mg tablet 800 mg PO TID 03/20/22 04/14/22 Unknown vitamin E 400 unit tablet 400 mg PO QAM 03/20/22 04/14/22 Unknown famotidine 40 mg tablet 40 mg PO BID #60 tabs 03/21/22 04/14/22 Unknown calcium carbonate 500 mg calcium 0 mg PO QAM 04/05/22 04/14/22 Unknown (1,250 mg) tablet pantoprazole 40 mg tablet,delayed 40 mg PO BID #60 tabs 04/17/22 Unknown release (Protonix) methocarbamol 500 mg tablet 500 mg PO TID PRN muscle spasm #90 05/03/22 Unknown tabs Active Medications Generic Name Dose Route Start Last Admin Trade Name Freq PRN Reason Stop Dose Admin Acetaminophen 650 mg 05/11/22 09:10 05/11/22 16:01 Acetaminophen 325 Mg Tab PO 06/10/22 09:09 650 mg Q4H PRN Administration Pain or Fever Ascorbic Acid 1,000 mg 05/11/22 09:10 05/11/22 13:44 Ascorbic Acid 500 Mg Tab PO 06/10/22 09:09 Not Given QAM [place] Atorvastatin Calcium 10 mg 05/11/22 21:00 05/11/22 21:28 Atorvastatin 10 Mg Tab PO 06/10/22 20:59 10 mg HS [place] Administration Bethanechol Chloride 50 mg 05/11/22 10:00 05/11/22 21:29 Bethanechol Chl 25 Mg Tab PO 06/10/22 09:59 50 mg BID [place] Administration Calcium Carbonate 2,500 mg 05/11/22 10:15 05/11/22 13:45 Calcium Carbonate 1250mg Tab PO 06/10/22 10:14 Not Given QAM [place] Cyanocobalamin 1,000 mcg 05/11/22 10:15 05/11/22 13:45 Cyanocobalamin (B-12) 500 Mcg Tablet PO 06/10/22 10:14 Not Given QAM [place] Doxazosin Mesylate 4 mg 05/11/22 09:10 05/11/22 13:45 Doxazosin Mesylate 4 Mg Tab PO 06/10/22 09:09 Not Given QAM [place] Pantoprazole Sodium 40 mg/ 10 mls @ 5 mls/min 05/11/22 10:00 05/11/22 21:28 Syringe IV 06/10/22 09:59 5 mls/min BID [place] Administration Insulin Aspart 0 units 05/11/22 11:30 05/12/22 07:37 Insulin Aspart Per Unit SC 06/10/22 11:29 Not Given ACHS [place] Levothyroxine Sodium 112 mcg 05/11/22 09:10 05/12/22 05:47 Levothyroxine Sodium 112 Mcg Tablet PO 06/10/22 09:09 112 mcg DAILYBB [place] Administration Polyethylene Glycol/Electrolytes 8 dose 05/11/22 16:00 05/12/22 02:56 Lavage Solution 4000ml PO 06/10/22 15:59 8 dose DAILY@0100,1600 [place] Administration Ropinirole HCl 0.5 mg 05/11/22 12:00 05/11/22 14:06 Ropinirole Hcl 0.25 Mg Tablet PO 06/10/22 11:59 0.5 mg DAILY@1200 [place] Administration Ropinirole HCl 1.5 mg 05/11/22 21:00 05/11/22 21:31 Ropinirole Hcl 1 Mg Tablet PO 06/10/22 20:59 1.5 mg HS [place] Administration Sevelamer HCl 800 mg 05/11/22 09:10 05/11/22 21:29 Sevelamer Hcl 800 Mg Tablet PO 06/10/22 09:09 800 mg TID [place] Administration Tamsulosin HCl 0.4 mg 05/11/22 10:00 05/11/22 13:45 Tamsulosin Hcl 0.4 Mg Cap PO 06/10/22 09:59 Not Given QAM [place] NPO Date Last Intake of Fluids: 05/11/22 Time Last Intake of Fluids: 22:00 Date Last Intake of Solids: 05/10/22 Time Last Intake of Solids: 19:00 Past Medical History Medical History Acute kidney injury superimposed on chronic kidney disease Anemia of chronic disease Anxiety Aortic stenosis CAD (coronary artery disease) Chronic diastolic heart failure Chronic hyponatremia Diabetes mellitus, type 2 Diabetic retinopathy Elevated troponin Essential tremor MINOR IN HAND Fatty liver First degree AV block GERD without esophagitis Hearing deficit no hearing aids Hiatal hernia History of CVA (cerebrovascular accident) (2019) ~3-4 years ago, woke up with weakness in her rt hand; L lacunar infarct; previously on plavix>no residual effects History of GI bleed hx 08/2021, given transfusion-per medical record History of renal dialysis tuesdays, , and saturdays currently; catheter in pt's neck Hx of atrial fibrillation, no current medication per medical report Hyperlipidemia Hypertension Hypothyroidism 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 Osteoarthritis Poor historian RBBB f/u dr. aguirre Recurrent UTI Resistant hypertension Restless legs Urinary urgency Venous insufficiency Weakness Exercise / Class Metabolic Activity III < 4 Walking/Shop/Light housework Past Family History Family History Father Alcohol abuse Heart disease Myocardial infarction Hypertension Sister Pancreatic cancer Diabetes Breast cancer Brother Diabetes Alcohol abuse Stroke Other Cancer No family history of adverse response to anesthesia Denies family history of Ovarian cancer Prostate cancer Colorectal cancer Past Surgical History Surgical History H/O varicose vein ligation History of back surgery (04/2010) X 2 History of bladder suspension procedure X 2 History of colonoscopy History of esophagogastroduodenoscopy (EGD) History of esophagogastroduodenoscopy (EGD) 04/06/22 at [facility] with Dr. Mich Pacheco- EGD- Gastric antral vascular ectasia with bleeding, treated with argon plasma coagulation (APC); Few angioectasias in the duodenum, treated with APC History of tooth extraction Hx of cardiac catheterization 08/2021, [facility] w/Dr. Moura for increased cardiac pressures; no stents S/P carpal tunnel release RT/LEFT S/P hysterectomy ANDRIA S/P knee replacement RT/LEFT S/P pericardiocentesis 08/2021, [facility], w/dr moura S/P trigger finger release Past Anesthesia History No Hx of Anesthesia Complications and No Family Hx of Anesthesia Complications History of PONV No Hx of PONV and No Hx of Motion Sickness Social History Smoking Status: Never smoker Hx Alcohol Use: No Hx Substance Use: No substance use type: does not use Review of Systems Constitutional: + fatigue Cardiovascular: + dyspnea on exertion Gastrointestinal: + hematemesis Physical Exam Vital Signs Last Vital Signs Temp 36 C L 05/12/22 08:30 Pulse 55 L 05/12/22 08:30 Resp 18 05/12/22 08:30 BP 152/51 H 05/12/22 08:30 Pulse Ox 100 05/12/22 08:30 O2 Del Method Room Air 05/12/22 08:30 O2 Flow Rate 99 05/11/22 08:00 Constitutional WD/WN, vitals as above + obese Eyes PERRL, conjunctivae normal, anicteric sclerae ENMT external ear and nose normal, oropharynx normal Mouth: + edentulous; no dentition abnormality Thyromental Distance: > or= 3.5 Finger Breadths Mallampati Class: II Neck trachea midline, no thyromegaly Respiratory normal respiratory effort, lungs clear to auscultation normal respiratory effort Cardiovascular RRR, no murmur, no edema Musculoskeletal Head/Neck/Chest: normocephalic and head atraumatic Spine: normal cervical ROM and no pain with cervical ROM Extremities: extremities normal to inspection; full ROM of extremities Skin no rashes, warm and dry bruising Neurologic moves all extremities Psychiatric A+Ox3, euthymic affect Testing Laboratory Results 05/11/22 13:09 05/11/22 06:25 PT 11.9 Seconds (9.0-12.0) 05/11/22 06:25 INR 1.1 (0.9-1.1) 05/11/22 06:25 APTT 22.5 Seconds (21.0-31.0) 05/11/22 06:25 Blood Type O Positive 05/11/22 07:10 Antibody Screen NEGATIVE 05/11/22 07:10 05/12/22 07:17 POC Glucose 97
[2022-05-12] MEDS ORDERED: PROPOFOL IV EMULSION 10 MG/ML 20 ML VIAL IV ONE (08:30)
[2022-05-12] MEDS ORDERED: LIDOCAINE 2% MPF LOCAL 5 ML VIAL INFIL ONE (08:30)
--- NOTE | 2022-05-12 08:31 | History & Physical Bridge Note ---
Date of Service May 12, 2022 History & Physical Bridge Note I have examined the patient, reviewed the History & Physical and in the interval since the performance of the History & Physical I have noted the following changes of clinical significance: no changes noted Proceed with EGD. proceed with colonoscopy. risks/benefits and procedure discussed with patient, who agrees to proceed
--- NOTE | 2022-05-12 09:20 | GI REPORT ---
Patient Name: Sully Ray Procedure Date: 05/12/2022 8:35 AM Date of : 1940 Admit Type: Inpatient Age: 82 Gender: Female Attending MD: Mich Pacheco MD, Procedure: Upper GI endoscopy Providers: Mich Pacheco MD Referring MD: Jania Coughlin Do Indications: Hematochezia Medicines: Monitored Anesthesia Care Complications: No immediate complications. Estimated blood loss: None. Estimated Blood Loss: Estimated blood loss: none. Procedure: Pre-Anesthesia Assessment: - Prior Anticoagulants: The patient has taken no anticoagulant or antiplatelet agents. - ASA Grade Assessment: II - A patient with mild systemic disease. After obtaining informed consent, the endoscope was passed under direct vision. Throughout the procedure, the patient's blood pressure, pulse, and oxygen saturations were monitored continuously. The Endoscope was introduced through the mouth, and advanced to the second part of duodenum. The upper GI endoscopy was accomplished without difficulty. The patient tolerated the procedure well. Findings: A medium-sized hiatal hernia was present. The examined esophagus was normal. Severe gastric antral vascular ectasia was present in the stomach. Coagulation for hemostasis using argon plasma at 1.2 liters/minute and 25 jones was successful. Estimated blood loss: none. The duodenal bulb and second portion of the duodenum were normal. Impression: - Normal esophagus. - Gastric antral vascular ectasia. Treated with argon plasma coagulation (APC). - Normal duodenal bulb and second portion of the duodenum. - No specimens collected. Recommendation: - Return patient to [facility] for [facility] care. - Advance diet as tolerated today. -repeat EGD for retreatment in 3 weeks supportive care Mich Pacheco MD 05/12/2022 9:19:01 AM This report has been signed electronically. Note Initiated On: 05/12/2022 8:35 AM Number of Addenda: 0 I attest to the content of the Intraoperative Record and orders documented therein, exceptions below {[id number]}
--- NOTE | 2022-05-12 09:21 | GI REPORT ---
Patient Name: Sully Ray Procedure Date: 05/12/2022 8:33 AM Date of : 1940 Admit Type: Inpatient Age: 82 Gender: Female Attending MD: Mich Pacheco MD, Procedure: Colonoscopy Providers: Mich Pacheco MD Referring MD: Jania Coughlin Do Indications: Hematochezia Medicines: Monitored Anesthesia Care Complications: No immediate complications. Estimated blood loss: None. Estimated Blood Loss: Estimated blood loss: none. Procedure: Pre-Anesthesia Assessment: - Prior Anticoagulants: The patient has taken no anticoagulant or antiplatelet agents. - ASA Grade Assessment: II - A patient with mild systemic disease. After I obtained informed consent, the scope was passed under direct vision. Throughout the procedure, the patient's blood pressure, pulse, and oxygen saturations were monitored continuously. The scope was introduced through the anus and advanced to the cecum, identified by appendiceal orifice and ileocecal valve. The colonoscopy was performed without difficulty. The patient tolerated the procedure well. The quality of the bowel preparation was good. Findings: Non-bleeding internal hemorrhoids were found. The hemorrhoids were medium-sized. The exam was otherwise without abnormality. Impression: - Non-bleeding internal hemorrhoids. - The examination was otherwise normal. - No specimens collected. Recommendation: - Return patient to [facility] for ongoing care. - Advance diet as tolerated today. Mich Pacheco MD 05/12/2022 9:21:10 AM This report has been signed electronically. Note Initiated On: 05/12/2022 8:33 AM Number of Addenda: 0 I attest to the content of the Intraoperative Record and orders documented therein, exceptions below {[id number]}
--- NOTE | 2022-05-12 09:31 | Anesthesiology Progress Note ---
Date of Service May 12, 2022 Anesthesia Post Procedure Vital Signs Vital Signs: Temp Pulse Pulse Pulse Pulse Resp BP 05/12/22 09:19 52 L 16 05/12/22 08:30 36 C L 55 L 18 05/12/22 07:16 36.3 C L 60 19 05/12/22 02:39 36.5 C 56 L 18 05/11/22 22:36 36.4 C L 45 L 18 05/11/22 20:24 05/11/22 19:22 36.4 C L 56 L 18 05/11/22 15:51 47 L 05/11/22 15:38 36.6 C 47 L 16 05/11/22 12:45 36.5 C 49 L 05/11/22 12:30 54 L 128/75 05/11/22 12:00 51 L 137/72 05/11/22 14:31 52 L 05/11/22 13:13 05/11/22 13:04 36.4 C L 49 L 18 05/11/22 11:30 54 L 156/58 H 05/11/22 11:00 74 121/56 L 05/11/22 10:30 54 L 125/52 L 05/11/22 10:59 36.5 C 59 L 18 126/53 L 05/11/22 10:48 36.6 C 60 18 138/54 L 05/11/22 10:30 36.6 C 54 L 18 125/52 L 05/11/22 10:15 36.5 C 49 L 18 114/54 L 05/11/22 10:00 47 L 124/53 L 05/11/22 09:46 36.5 C 56 L 18 122/54 L BP Pulse Ox O2 Del Method O2 Flow Rate 05/12/22 09:19 94/45 L 100 Oxymask 4 05/12/22 08:30 152/51 H 100 Room Air 05/12/22 07:16 159/65 H 100 Room Air 05/12/22 02:39 128/56 L 97 Room Air 05/11/22 22:36 119/46 L 97 Room Air 05/11/22 20:24 Room Air 05/11/22 19:22 124/52 L 98 Room Air 05/11/22 15:51 05/11/22 15:38 129/46 L 98 Room Air 05/11/22 12:45 145/58 H 05/11/22 12:30 05/11/22 12:00 05/11/22 14:31 05/11/22 13:13 Room Air 05/11/22 13:04 156/58 H 99 Room Air 05/11/22 11:30 05/11/22 11:00 05/11/22 10:30 05/11/22 10:59 96 05/11/22 10:48 96 05/11/22 10:30 96 05/11/22 10:15 95 05/11/22 10:00 05/11/22 09:46 95 Transfer of Care Handoff Completed per policy Notes Mental Status: alert / awake / arousable and participated in evaluation Patient Amnestic to Procedure: Yes Nausea / Vomiting: adequately controlled Pain: adequately controlled Airway Patency, RR, SpO2: stable & adequate BP & HR: stable & adequate Hydration State: stable & adequate Anesthetic Complications: no major complications apparent and Pt Satisfied with anesthetic care
[2022-05-12 10:29] LABS: Basophils # (auto) 0.04 K/uL (0-0.2); Basophils % (auto) 0.8 %; Eosinophils # (auto) 0.05 K/uL (0-0.50); Hematocrit (blood only) 27.9 % (37.0-47.0); Hemoglobin 9.2 g/dl (12.0-16.0); Immature Granulocytes # (auto) 0.02 K/uL (0.01-0.20); Immature Granulocytes % (auto) 0.4 %; Lymphocytes # (auto) 0.51 K/uL (1.2-3.4); Lymphocytes % (auto) 10.1 %; Mean Corpuscular Hemoglobin 31.4 pg (25.0-34.0); Mean Corpuscular Volume 95.2 fL (80.0-100.0); Mean Platelet Volume 10.4 fL (9.4-12.4); Monocytes # (auto) 0.24 K/uL (0.11-0.59); Monocytes % (auto) 4.7 %; Neutrophils # (auto) 4.21 K/uL (1.40-6.50); Platelet Count 114 K/uL (130-400); RDW Standard Deviation 63.3 fL (36.4-46.3); Red Blood Count 2.93 M/uL (4.20-5.40); White Blood Count 5.07 K/ul (4.8-10.8)
[2022-05-12] MEDS: DOXAZosin MESYLATE 4 MG TAB PO SCH (10:40)
[2022-05-12] MEDS: SEVELAMER HCL 800 MG TABLET PO SCH ×3 (10:40→20:00)
[2022-05-12] MEDS: CYANOCOBALAMIN (B-12) 500 MCG TABLET PO SCH (10:40)
[2022-05-12] MEDS: TAMSULOSIN HCL 0.4 MG CAP PO SCH (10:40)
[2022-05-12] MEDS: CALCIUM CARBONATE 1250MG TAB PO SCH (10:41)
[2022-05-12] MEDS: ASCORBIC ACID 500 MG TAB PO SCH (10:41)
[2022-05-12] MEDS: BETHANECHOL CHL 25 MG TAB PO SCH ×2 (10:42→19:59)
[2022-05-12] MEDS: PANTOprazole 40 MG in SYRINGE 0 ML IV SCH ×2 (10:42→19:58)
[2022-05-12 10:44] LABS: Calcium 7.1 mg/dl (8.5-10.1)
[2022-05-12 11:00] LABS: BUN Creatinine Ratio 10.4 (10-20); Creatinine Clr Calc Pharmacy 12.6 ml/min; Est GFR (African American) 18.9 ml/min; Est GFR (Non-African American) 16.3 ml/min
--- NOTE | 2022-05-12 12:42 | Nephrology Progress Note ---
Date of Service May 12, 2022 Assessment & Plan (1) ESRD on hemodialysis: (2) Acute GI bleeding: (3) Anemia: Plan ESRD, on hemodialysis via right IJ tunneled dialysis catheter on TTS at [facility]. Has history of GI bleeding with AVM, presented with bright red blood per rectum and anemia with hemoglobin 6.4. Had dialysis yesterday and had 2 units of PRBC, hemoglobin improved to 9.4 from 6.4 yesterday. Has been otherwise asymptomatic, no overnight events. Seen by GI and currently having EGD and colonoscopy. Blood pressure, volume status and electrolyte acceptable. -- Will schedule for dialysis tomorrow for 3.5 hours as her regular schedule. -- Epogen 19556 units with dialysis tomorrow. -- Continue on low-potassium, low phosphorus diet, continue on phosphate binder. -- Dose medications for eGFR less than 10 Will follow Admission and Anticipated Discharge Date Admission Date: May 11, 2022 Kathryn Virk was off floor this morning for EGD and colonoscopy. Labs and vital signs are reviewed. Vital signs has been stable. Hemoglobin improved to 9.4 after 2 PRBC yesterday. Electrolyte has been acceptable. Results & Data ([facility]) Vital Signs (Past 12 Hours) Vital Signs Temp Pulse Pulse Pulse Resp BP Pulse Ox 05/12/22 11:10 36.3 C L 54 L 18 126/52 L 99 05/12/22 08:00 58 L 05/12/22 09:45 56 L 16 101/54 L 94 05/12/22 09:35 56 L 16 95/40 L 94 05/12/22 09:19 52 L 16 94/45 L 100 05/12/22 08:30 36 C L 55 L 18 152/51 H 100 05/12/22 07:16 36.3 C L 60 19 159/65 H 100 05/12/22 02:39 36.5 C 56 L 18 128/56 L 97 O2 Del Method O2 Flow Rate 05/12/22 11:10 Room Air 05/12/22 08:00 05/12/22 09:45 Room Air 05/12/22 09:35 Room Air 05/12/22 09:19 Oxymask 4 05/12/22 08:30 Room Air 05/12/22 07:16 Room Air 05/12/22 02:39 Room Air PG Care Time/CCT Total # of Minutes Spent Total Time Spent with Patient: Total time spent is greater than 50% in coordination of care (as documented) at patient's floor/unit and/or counseling patient: Coding Level of Care Code 70425 SUB INP/OBS CARE 2/35MIN Diagnoses ESRD on hemodialysis N18.6; Z99.2 Acute GI bleeding K92.2 Anemia D64.9 Anemia type: unspecified type (3) Anemia Anemia type: unspecified type Qualified Code(s): D64.9 - Anemia, unspecified
[2022-05-12] MEDS: rOPINIRole HCL 0.25 MG TABLET PO SCH (13:13)
[2022-05-12] MEDS ORDERED: COUGH DROP (SUGAR FREE) LOZ 24 LOZ/1 BOX BUCCAL STA (13:55)
[2022-05-12] MEDS: ATORVASTATIN 10 MG TAB PO SCH (19:59)
[2022-05-12] MEDS: rOPINIRole HCL 1 MG TABLET PO SCH (20:00)
[2022-05-12] MEDS ORDERED: MELATONIN 3 MG TAB PO PRN (22:58)
[2022-05-13] MEDS: LEVOTHYROXINE SODIUM 112 MCG TABLET PO SCH (05:45)
[2022-05-13] MEDS ORDERED: MICONAZOLE NITRATE POWDER 85 GM EXT PRN (06:20)
[2022-05-13] MEDS: INSULIN ASPART PER UNIT SC SCH (08:26)
[2022-05-13] MEDS: BETHANECHOL CHL 25 MG TAB PO SCH (08:26)
[2022-05-13] MEDS: DOXAZosin MESYLATE 4 MG TAB PO SCH (08:27)
[2022-05-13] MEDS: TAMSULOSIN HCL 0.4 MG CAP PO SCH (08:27)
[2022-05-13] MEDS: CALCIUM CARBONATE 1250MG TAB PO SCH (08:27)
[2022-05-13] MEDS: CYANOCOBALAMIN (B-12) 500 MCG TABLET PO SCH (08:27)
[2022-05-13] MEDS: ASCORBIC ACID 500 MG TAB PO SCH (08:28)
[2022-05-13] MEDS: PANTOprazole 40 MG in SYRINGE 0 ML IV SCH (08:28)
[2022-05-13] MEDS: SEVELAMER HCL 800 MG TABLET PO SCH (08:30)
[2022-05-13] MEDS ORDERED: EPOETIN ALFA 10,000 UNITS/ML VIAL IV ONE (09:00)
[2022-05-13 09:09] LABS: Basophils # (auto) 0.04 K/uL (0-0.2); Basophils % (auto) 0.5 %; Eosinophils # (auto) 0.05 K/uL (0-0.50); Eosinophils % (auto) 0.6 %; Hematocrit (blood only) 27.6 % (37.0-47.0); Immature Granulocytes # (auto) 0.03 K/uL (0.01-0.20); Immature Granulocytes % (auto) 0.4 %; Lymphocytes # (auto) 0.74 K/uL (1.2-3.4); Lymphocytes % (auto) 9.5 %; Mean Corpuscular Hemoglobin 30.6 pg (25.0-34.0); Mean Corpuscular Hgb Conc 32.6 g/dL (32.0-36.0); Mean Corpuscular Volume 93.9 fL (80.0-100.0); Mean Platelet Volume 10.8 fL (9.4-12.4); Monocytes # (auto) 0.36 K/uL (0.11-0.59); Monocytes % (auto) 4.6 %; Neutrophils # (auto) 6.55 K/uL (1.40-6.50); Neutrophils % (auto) 84.4 %; Platelet Count 129 K/uL (130-400); RDW Coefficient of Variation 17.5 % (11.5-14.5); RDW Standard Deviation 60.7 fL (36.4-46.3); Red Blood Count 2.94 M/uL (4.20-5.40); White Blood Count 7.77 K/ul (4.8-10.8)
--- NOTE | 2022-05-13 09:31 | Discharge Summary ---
Discharge Summary Date of Service May 13, 2022 Admission HPI Per Admitting Provider 82-year-old female past medical history significant for end-stage renal disease on hemodialysis T//, DM 2, neurogenic bladder, cirrhosis with history of esophageal varices, HFpEF, CVA, CAD, hypertension, hyperlipidemia, RLS, hypothyroidism presented to the ER at the guidance of nephrology for a hemoglobin of 6.7 on outpatient lab work. Patient endorses that she has been feeling more tired lately, does have a history of upper GI bleed most recently in early April of this year, found to have telangiectasias on EGD that were cauterized at that time. Patient herself does not endorse any black stools, but rather endorses BRBPR a couple of times over the last couple of weeks, specifically when she wipes. She has a known history of hemorrhoids with hemorrhoidal bleeding as well. In the ER patient noted to be hemodynamically stable, saturating well on room air. Lab work notable for hemoglobin of 6.4 with a macrocytic MCV 103. She was also noted to have a creatinine of 3.65, she had not had dialysis yet today. Alk phos of 171 which is chronic, troponin 23.0 without evidence of ACS or chest pain, COVID-negative. Hospitalist service was consulted for admission for acute blood loss anemia and suspected lower GI bleed. Admission Exam Per Admitting Provider Constitutional: WD/WN, vitals as above Respiratory: normal respiratory effort, lungs clear to auscultation Cardiovascular: RRR, no murmur, no edema Gastrointestinal (Abdomen): normal bowel sounds, soft, nontender, no hepatosplenomegaly Skin: no rashes, warm and dry pale Psychiatric: A+Ox3, euthymic affect Principal Dx & Hospital Course #1 = Principal Diagnosis (1) Acute blood loss anemia: Hgb 6.4 on admission, increased to 9.4 s/p 2U PRBCs, 9.0 on day of discharge Hx upper GIB, remote history 2019 of esophageal varices, no evidence of such on EGD 05/12/2022 GI consulted and appreciate recs: On EGD had gastric antral vascular ectasia treated with APC, and noted to have nonbleeding internal hemorrhoids on colonoscopy Continue PPI PO twice daily with follow-up EGD in 3 weeks (2) Acute GI bleeding: see above (3) ESRD on hemodialysis: Dialysis TTS, follows with Dr. Will who was consulted this admit Continue on low-potassium, low phosphorus diet, and continue on phosphate binder Case personally discussed with Dr. Will (4) Esophageal varices: History of in 2019, however not noted on EGD 05/12/22 (5) Chronic diastolic heart failure: History of, on furosemide 80mg BID, continue on discharge (6) Diabetes mellitus type 2 with complications: Continue home medications (7) Cirrhosis: History of, LFTs and T Bili normal (8) CAD (coronary artery disease): With troponin 23 on admission, no chest pain or anginal equivalents EKG without ST or T wave changes to suggest ACS Plan Discharge home with PCP and Nephrology follow up Discharge Exam Constitutional WD/WN, vitals as above Respiratory normal respiratory effort, lungs clear to auscultation Cardiovascular RRR, no murmur, no edema Gastrointestinal (Abdomen) normal bowel sounds, soft, nontender, no hepatosplenomegaly Psychiatric A+Ox3, euthymic affect Updated Medication List Medication Instructions Recorded Confirmed Type cholecalciferol (vitamin D3) 25 2,000 unit PO QAM 05/29/18 04/14/22 History mcg (1,000 unit) capsule (Vitamin D3) cranberry fruit concentrate 250 mg 500 mg PO QAM 05/29/18 04/14/22 History chewable tablet (Azo Cranberry) omega-3s 300 [id number] 1 cap PO QAM 05/29/18 04/14/22 History [id number] oil 1,000 mg capsule ([place]-3 Fish Oil) blood sugar diagnostic (Blood #100 ea 10/12/20 04/14/22 Rx Glucose Test strips) ascorbic acid (vitamin C) 500 mg 1,000 mg PO QAM 11/12/20 04/14/22 History tablet (Vitamin C) cyanocobalamin (vitamin B-12) 1,000 mcg PO QAM 11/12/20 04/14/22 History 1,000 mcg tablet (Vitamin B-12) tamsulosin 0.4 mg capsule (Flomax) 0.4 mg PO QAM 11/12/20 04/14/22 History bethanechol chloride 50 mg tablet 50 mg PO BID #180 tabs 04/19/21 04/14/22 Rx atorvastatin 10 mg tablet (Lipitor) 10 mg PO HS #90 tabs 11/18/21 04/14/22 Rx loperamide 2 mg capsule 2 mg PO TID PRN Diarrhea 12/02/21 04/14/22 History (Anti-Diarrheal (loperamide)) Saccharomyces boulardii 250 mg 250 mg PO BID #180 caps 12/05/21 04/14/22 Rx capsule (Florastor) diaper,brief,adult,disposable #150 ea 12/07/21 04/14/22 Rx (Fitted Briefs X-Large) doxazosin 4 mg tablet 4 mg PO QAM 12/07/21 04/14/22 History hydrocortisone 2.5 % topical cream 1 applic [place] UD PRN hemorrhoids 12/07/21 04/14/22 History with perineal applicator hydrocortisone acetate 25 mg 25 mg [place] QAM PRN Hemorrhoids 12/07/21 04/14/22 History rectal suppository (Anusol-HC) levothyroxine 112 mcg tablet 112 mcg PO QAM 12/07/21 04/14/22 History (Synthroid) linagliptin 5 mg tablet (Tradjenta) 5 mg PO QAM #90 tabs 12/07/21 04/14/22 Rx tramadol 50 mg tablet (Ultram) 50 mg PO BID PRN pain #60 tabs 12/31/21 04/14/22 Rx triamcinolone acetonide 0.05 % 1 applic topical BID #430 grams 01/18/22 04/14/22 Rx topical ointment amlodipine 10 mg tablet (Norvasc) 10 mg PO QAM #90 tabs 02/23/22 04/14/22 Rx ropinirole 0.5 mg tablet 0.5 - 1.5 mg PO UD #360 tabs 03/07/22 04/14/22 Rx furosemide 80 mg tablet 80 mg PO BID 03/20/22 04/14/22 History sevelamer carbonate 800 mg tablet 800 mg PO TID 03/20/22 04/14/22 History vitamin E 400 unit tablet 400 mg PO QAM 03/20/22 04/14/22 History famotidine 40 mg tablet 40 mg PO BID #60 tabs 03/21/22 04/14/22 Rx calcium carbonate 500 mg calcium 0 mg PO QAM 04/05/22 04/14/22 History (1,250 mg) tablet pantoprazole 40 mg tablet,delayed 40 mg PO BID #60 tabs 04/17/22 Rx release (Protonix) methocarbamol 500 mg tablet 500 mg PO TID PRN muscle spasm #90 05/03/22 Rx tabs Hospital Stay Data Consultations 05/11/22 07:49 Consult Nephrology Stat 05/11/22 08:55 Consult Gastroenterology Routine Procedures Performed Operation Date: 05/12/22 16:30 Actual Procedures s Esophagogastroduodenoscopy(Not Applicable) - Mich Pacheco MD p Colonoscopy(Not Applicable) - Mich Pacheco MD Discharge Instructions Given to Patient (Per Discharging Provider) You were admitted to the hospital for evaluation and management of low blood count and ongoing GI bleeding. You had a colonoscopy and an endoscopy, which showed a bundle of blood vessels that was not actively bleeding but could have been the source of your bleeding, which was cauterized. Your blood counts stayed stable after this procedure as well as receiving some blood. You were felt to be safe for discharge home on your regular home medications, with follow up with GI in three weeks. If you do not hear from their office by Sunday, please call the number provided above to schedule with Dr. Pacheco's office. If you have any urgent medical concerns, please seek urgent medical attention by calling the doctors above, or reporting to the ER. Total Time Total Time Spent Total Time Spent (In Minutes): 35 min Coding Level of Care Code 24310 INP/OBS DISCH >30 MIN Diagnoses Acute blood loss anemia D62 Acute GI bleeding K92.2 ESRD on hemodialysis N18.6; Z99.2 Esophageal varices I85.00 Chronic diastolic heart failure I50.32 Diabetes mellitus type 2 with complications E11.8 Cirrhosis K74.60 CAD (coronary artery disease) I25.10
[2022-05-13 09:37] LABS: Calcium 7.1 mg/dl (8.5-10.1); Creatinine Clr Calc Pharmacy 8.3 ml/min; Est GFR (African American) 11.5 ml/min; Est GFR (Non-African American) 9.9 ml/min; Potassium 4.3 mmol/L (3.5-5.1)
--- NOTE | 2022-05-13 11:25 | Nephrology Progress Note ---
Date of Service May 13, 2022 Assessment & Plan (1) ESRD on hemodialysis: Plan: ESRD on HD via RIJ tunneled dialysis catheter on TTS at [facility]. Orders for HD today entered into the EHR and reviewed with air and hydronic balancing technician. Tolerating treatment well. Clearance at goal. Volume status controlled. Next HD will be Sunday. Resume current outpatient Rx post discharge. (2) Acute GI bleeding: Plan: Signs stopped. History of AVM. s/p colonoscopy and EGD with APC of GAVE yesterday. Non-bleeding hemorrhoids. Outpatient GI follow up scheduled. Anticipated discharge home today. (3) Anemia: Plan: H/H stable overnight. Epogen 84725 units with HD today. Repeat labs at HD next week. Admission and Anticipated Discharge Date Admission Date: May 11, 2022 Subjective No acute events overnight. Sully was seen and evaluated during hemodialysis this AM. She is tolerating HD well. No complications with treatment. She hopes to be discharged home following dialysis. She denies any signs of GI blood loss. Review of Systems Review of Systems: All systems reviewed & are unremarkable except as noted in HPI & below Physical Exam Constitutional: well developed, + thin and + frail appearing; no acute distress Eyes: + anicteric sclerae; pupils not irregular Neck: normal visual inspection and trachea midline RIJ TDC Respiratory: normal respiratory effort Auscultation: lungs clear to auscultation bilaterally Cardiovascular: Rate/Rhythm: + bradycardic Heart Sounds: normal S1, normal S2 and + murmur Extremities: no edema Musculoskeletal: Extremities: no cyanosis and no clubbing Skin: + turgor decreased; no jaundice Neurologic: Motor/Sensory: no tremor and no asterixis Psychiatric: Orientation: alert and oriented x 3 Results & Data ([facility]) Vital Signs (Past 12 Hours) Vital Signs Temp Pulse Pulse Pulse Resp BP BP 05/13/22 11:00 46 L 112/49 L 05/13/22 10:30 41 L 107/45 L 05/13/22 10:00 44 L 111/29 L 05/13/22 09:30 43 L 116/27 L 05/13/22 09:00 40 L 106/40 L 05/13/22 08:56 41 L 117/38 L 05/13/22 08:50 36.5 C 46 L 05/13/22 07:33 37.0 C 48 L 16 130/54 L 05/13/22 07:24 51 L 05/13/22 05:39 36.5 C 56 L 18 125/47 L Pulse Ox O2 Del Method 05/13/22 11:00 05/13/22 10:30 05/13/22 10:00 05/13/22 09:30 05/13/22 09:00 05/13/22 08:56 05/13/22 08:50 05/13/22 07:33 100 Room Air 05/13/22 07:24 05/13/22 05:39 96 Room Air Laboratory Results Laboratory Results - last 24 hr 05/12/22 05/12/22 05/12/22 11:15 16:33 20:13 WBC RBC Hgb Hct MCV MCH MCHC RDW Std Deviation RDW Coeff of Irasema Plt Count MPV Immature Gran % (Auto) Neut % (Auto) Lymph % (Auto) [place] % (Auto) Eos % (Auto) Baso % (Auto) Neut # (Auto) Lymph # (Auto) [place] # (Auto) Eos # (Auto) Baso # (Auto) Immature Gran # (Auto) Sodium Potassium Chloride Carbon Dioxide Anion Gap BUN Creatinine Est Cr Clr Drug Dosing Est GFR ( Amer) Est GFR (Non-Af Amer) BUN/Creatinine Ratio Glucose POC Glucose 121 H 206 H 132 H Calcium 05/13/22 05/13/22 05/13/22 07:35 08:53 08:53 WBC 7.77 RBC 2.94 L Hgb 9.0 L Hct 27.6 L MCV 93.9 MCH 30.6 MCHC 32.6 RDW Std Deviation 60.7 H RDW Coeff of Irasema 17.5 H Plt Count 129 L MPV 10.8 Immature Gran % (Auto) 0.4 Neut % (Auto) 84.4 Lymph % (Auto) 9.5 [place] % (Auto) 4.6 Eos % (Auto) 0.6 Baso % (Auto) 0.5 Neut # (Auto) 6.55 H Lymph # (Auto) 0.74 L [place] # (Auto) 0.36 Eos # (Auto) 0.05 Baso # (Auto) 0.04 Immature Gran # (Auto) 0.03 Sodium 134 L Potassium 4.3 Chloride 100 Carbon Dioxide 26 Anion Gap 8 BUN 47 H D Creatinine 3.92 H D Est Cr Clr Drug Dosing 8.3 Est GFR ( Amer) 11.5 Est GFR (Non-Af Amer) 9.9 BUN/Creatinine Ratio 12.0 Glucose 170 H POC Glucose 99 Calcium 7.1 L PG Care Time/CCT Total # of Minutes Spent Total Time Spent with Patient: Total time spent is greater than 50% in coordination of care (as documented) at patient's floor/unit and/or counseling patient: Coding Level of Care Code 55962 SUB INP/OBS CARE 3/50MIN Diagnoses ESRD on hemodialysis N18.6; Z99.2 Acute GI bleeding K92.2 Anemia D64.9 Anemia type: unspecified type (3) Anemia Anemia type: unspecified type Qualified Code(s): D64.9 - Anemia, unspecified
== END 2022-05-13 13:42 | disposition home or self-care (01) | DRG 377 ==
LOC: ED 06:08 → EDINP 08:55 → 2E 12:57

== ENCOUNTER 2022-05-30 17:32 | Inpatient (IN) ==
[2022-05-30] MEDS ORDERED: SODIUM CHLORIDE 0.9% 250 ML IV PRN (17:50)
[2022-05-30] MEDS ORDERED: PANTOprazole 80 MG in DEXTROSE 5% 100 ML IV ONE (17:50)
[2022-05-30] MEDS ORDERED: PANTOPRAZOLE BOLUS/DRIP 1 EACH IV STA (17:50)
[2022-05-30 18:14] LABS: Hematocrit (blood only) 20.4 % (37.0-47.0); Hemoglobin 6.7 g/dl (12.0-16.0); Mean Corpuscular Hgb Conc 32.8 g/dL (32.0-36.0); Mean Corpuscular Volume 100.5 fL (80.0-100.0); Mean Platelet Volume 11.4 fL (9.4-12.4); Platelet Count 116 K/uL (130-400); RDW Coefficient of Variation 17.8 % (11.5-14.5); Red Blood Count 2.03 M/uL (4.20-5.40); White Blood Count 3.73 K/ul (4.8-10.8)
--- NOTE | 2022-05-30 18:16 | Emergency Department Note ---
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 Hospitalized here 2 weeks ago and required argon plasma treatment for bleeding GI issue. History of GAVE as well. Patient does not remember any blood or black stools but is not the best historian. States he feeling weak and shaky and a bit more tired. Denies any falls or syncope. Denies abdominal pain or chest pain. Had weekly blood work today showed a hemoglobin in the sixes and sent here for evaluation. Was to have EGD as an outpatient next Sunday to reevaluate to the treatment she received here. PAST MEDICAL HISTORY: As noted above MEDICATIONS: Reviewed home medications not currently on blood thinners or anticoagulants. SOCIAL HISTORY: Resides at home PHYSICAL EXAM: GENERAL: alert and oriented in no acute distress on stretcher Head: normocephalic and atraumatic EYES: No injection, discharge or icterus. NECK: Trachea midline. ENT: Mucous membranes pink and moist LUNGS: Airway patent. No retractions. Breath sounds clear HEART: Regular rate and rhythm. No chest wall tenderness ABDOMEN: Soft and non-tender, without guarding or rebound. SKIN: Acyanotic, warm, dry, without rashes EXTREMITIES: Without swelling, tenderness or deformity NEUROLOGICAL: No focal deficits. No aphasia. No facial droop or slurred speech. EK bpm normal sinus rhythm with right bundle branch block and a bit of baseline artifact. QTc 468. No acute ST segment elevation noted. CONTINUOUS CARDIAC MONITORING: was ordered and showed a heart rate of 50s-60s bpm in normal sinus Patient's laboratory studies and imaging reviewed. Differential includes Diverticulosis, AVM, coagulopathy, colitis, inflammatory bowel disease, malignancy, Lindsay-Andrade tear, esophagitis, peptic ulcer disease, variceal bleed, gastritis, epistaxis, fissure, hemorrhoids, as well as other pathologies. IMPRESSION/MEDICAL DECISION MAKING: Patient with some weakness but not hypotensive or significantly tachycardic here . Feels again weakness and some tremors. Hemoglobin confirmed low. Consented and ordered 2 units of pRBC given her symptoms and GI bleed. EGD records from 2 weeks ago reviewed with APC treatment to bleeding stomach as well as evidence of GAVE. Denies any abdominal pain and doubt perforation. Not on anticoagulant or antiplatelet agents. We will give some Protonix IV as well as drip. History of varices but recent EGD from 2 weeks ago did not see significant component. Did have dialysis and completed earlier today. Given her drop in hemoglobin with recent GI treatment will have the hospitalist observe overnight. Discussed with the hospitalist team as well as the patient who are in agreement. DIAGNOSIS: GI bleed, acute blood loss anemia DISPOSITION: Hospitalist will evaluate Patient was agreeable with this plan. Critical Care I have personally spent 32 minutes of critical care time in the direct management of this patient. This includes bedside care, interpretation of diagnostic studies, and testing, discussion with consultants, patient, and fa rudi members, and other required patient management activities. These 32 minutes is in excess of all separately billable procedures. Past Med/Surg History Medical History (Updated 05/30/22 @ 18:54 by Davian Stephens MD) Anemia of chronic disease Anxiety Aortic stenosis CAD (coronary artery disease) Chronic diastolic heart failure Chronic hyponatremia Diabetes mellitus, type 2 Diabetic retinopathy Difficult intravenous access Essential tremor MINOR IN HAND Fatty liver First degree AV block GAVE (gastric antral vascular ectasia) GERD without esophagitis Hearing deficit no hearing aids Hemorrhoids Hiatal hernia History of CVA (cerebrovascular accident) (2018) ~3-4 years ago, woke up with weakness in her rt hand; L lacunar infarct; previously on plavix>no residual effects History of GI bleed hx 08/2021, given transfusion-per medical record REASON FOR UPCOMING PROCEDURE History of recent hospitalization GI BLEED/LOW BLOOD COUNT/HX BLOOD TRANSFUSION - MAY 2022 - [facility] History of renal dialysis TUES,THUR AND SAT ([facility] [place]/ACROSS FROM [facility]) ACCESS SITE RIGHT SIDE OF CHEST/ ? DETAILS Hx of atrial fibrillation, no current medication per medical report Hyperlipidemia Hypertension Hypothyroidism 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 Osteoarthritis Poor historian RBBB f/u dr. aguirre Recurrent UTI HX/MUST BE OLD PROBLEM PER PT Resistant hypertension Restless legs Skin lesion UPCOMING BIOPSY FOREHEAD JUNE 07 HX SKIN LESION/REMOVED - ? DETAILS Urinary urgency Venous insufficiency Weakness Surgical History H/O varicose vein ligation History of back surgery (04/2010) X 2 History of bladder suspension procedure X 2 History of colonoscopy History of esophagogastroduodenoscopy (EGD) History of esophagogastroduodenoscopy (EGD) 04/06/22 at [facility] with Dr. Mich Pacheco- EGD- Gastric antral vascular ectasia with bleeding, treated with argon plasma coagulation (APC); Few angioectasias in the duodenum, treated with APC History of tooth extraction Hx of cardiac catheterization 08/2021, [facility] w/Dr. Moura for increased cardiac pressures; no stents S/P carpal tunnel release RT/LEFT S/P hysterectomy ANDRIA S/P knee replacement RT/LEFT S/P pericardiocentesis 08/2021, [place], w/dr moura S/P trigger finger release Family History Father Alcohol abuse Heart disease Myocardial infarction Hypertension Sister Pancreatic cancer Diabetes Breast cancer Brother Diabetes Alcohol abuse Stroke Other Cancer No family history of adverse response to anesthesia Denies family history of Ovarian cancer Prostate cancer Colorectal cancer Social History Smoking Status: Never smoker Second Hand Exposure: Yes (long time ago, 40+ years ago); Hx Alcohol Use: No Hx Substance Use: No Preferred Language: Barbadian Communication Ability: Effective Visual Impairment: No Limitations Hearing Ability: Normal Television Antenna Installer Required: No Beliefs That Will Affect Care: None marital status: Single Current Living Situation: Alone Current Living Situation Comment: 2 [address] current occupational status: retired How many Children do You have: 2 Other Information That Helps Us Care for You: No Feels Safe at Home: Yes Safety Concerns: Feels Safe At This Time Childhood Exposure to Second-Hand Smoke: No Diet Comment: regular caffeine: Yes (Coffee x 2 cups per day.) during the past year weight has: remained stable Dental Care, Regularly: No Physical Activity Frequency: Does not Exercise Seatbelt Use: always Sunscreen Use: Yes Assistive Devices: Glasses Allergies Allergies Allergy/AdvReac Type Severity Reaction Status Date / Time sulfamethoxazole AdvReac Unknown REMOTE Verified 05/29/22 09:40 [From Bactrim] HX/PT NOT SURE REACTION trimethoprim [From Bactrim] AdvReac Unknown REMOTE Verified 05/29/22 09:40 HX/PT NOT SURE REACTION Home Meds Home Medications Medication Instructions Recorded Confirmed cholecalciferol (vitamin D3) 25 2,000 unit PO QAM 05/29/18 05/30/22 mcg (1,000 unit) capsule (Vitamin D3) cranberry fruit concentrate 250 mg 500 mg PO QAM 05/29/18 05/30/22 chewable tablet (Azo Cranberry) omega-3s 300 jr-fen-foe-other 1 cap PO QAM 05/29/18 05/30/22 [id number]-isdr oil 1,000 mg capsule (Boston-3 Fish Oil) ascorbic acid (vitamin C) 500 mg 1,000 mg PO QAM 11/12/20 05/30/22 tablet (Vitamin C) cyanocobalamin (vitamin B-12) 1,000 mcg PO QAM 11/12/20 05/30/22 1,000 mcg tablet (Vitamin B-12) tamsulosin 0.4 mg capsule (Flomax) 0.4 mg PO QAM 11/12/20 05/30/22 doxazosin 4 mg tablet 4 mg PO QAM 12/07/21 05/30/22 hydrocortisone 2.5 % topical cream 1 applic KS UD PRN hemorrhoids 12/07/21 05/30/22 with perineal applicator hydrocortisone acetate 25 mg 25 mg KS QAM PRN Hemorrhoids 12/07/21 05/30/22 rectal suppository (Anusol-HC) furosemide 80 mg tablet 80 mg PO BID 03/20/22 05/30/22 sevelamer carbonate 800 mg tablet 800 mg PO TIDM 03/20/22 05/30/22 amlodipine 10 mg tablet (Norvasc) 5 mg PO QPM 05/18/22 05/30/22 calcium citrate 200 mg (950 mg) 400 mg PO QAM 05/29/22 05/30/22 tablet loperamide 2 mg capsule 2 mg PO UD PRN Diarrhea 05/29/22 05/30/22 ropinirole 0.5 mg tablet 0.5 mg PO UD 05/29/22 05/30/22 estradiol 0.01% (0.1 mg/gram) 1 applic vaginal UD 05/30/22 05/30/22 vaginal cream levothyroxine 112 mcg tablet 112 mcg PO DAILYBB 05/30/22 05/30/22 (Synthroid) tramadol 50 mg tablet 50 mg PO BID PRN Pain 05/30/22 05/30/22 vitamin E 268 mg (400 unit) capsule 268 mg PO QAM 05/30/22 05/30/22 Previous Rx's Medication Instructions Recorded blood sugar diagnostic (Blood #100 ea 10/12/20 Glucose Test strips) bethanechol chloride 50 mg tablet 50 mg PO BID #180 tabs 04/19/21 atorvastatin 10 mg tablet (Lipitor) 10 mg PO HS #90 tabs 11/18/21 Saccharomyces boulardii 250 mg 250 mg PO BID #180 caps 12/05/21 capsule (Florastor) diaper,brief,adult,disposable #150 ea 12/07/21 (Fitted Briefs X-Large) linagliptin 5 mg tablet (Tradjenta) 5 mg PO QAM #90 tabs 12/07/21 triamcinolone acetonide 0.05 % 1 applic topical BID #430 grams 01/18/22 topical ointment famotidine 40 mg tablet 40 mg PO BID #60 tabs 03/21/22 methocarbamol 500 mg tablet 500 mg PO TID PRN muscle spasm #90 05/03/22 tabs pantoprazole 40 mg tablet,delayed 40 mg PO BID #60 tabs 05/19/22 release (Protonix) Results & Data (ED) Vital Signs Vital Signs - 24 hr 05/30/22 17:36 05/30/22 17:49 05/30/22 18:16 Temperature 37.1 C Temperature Source Temporal Artery Scan Pulse Rate 64 55 L Pulse Rate from SpO2 Sensor Respiratory Rate 16 Respiratory Effort / Characteristics Non-Labored Respiratory Depth Normal Blood Pressure 107/60 Blood Pressure Mean 75 Pulse Oximetry 100 98 Oxygen Delivery Method Room Air Room Air Sepsis Recent Fever Within 48 Hours No Sepsis New/Unexplained Change in Mental Status N/A Sepsis Action Taken by Nursing No Action Required 05/30/22 18:11 05/30/22 18:20 05/30/22 18:30 Temperature Temperature Source Pulse Rate 53 L 56 L Pulse Rate from SpO2 Sensor 55 L 56 L Respiratory Rate 19 18 Respiratory Effort / Characteristics Respiratory Depth Blood Pressure 111/38 L Blood Pressure Mean 62 Pulse Oximetry 97 97 Oxygen Delivery Method Sepsis Recent Fever Within 48 Hours Sepsis New/Unexplained Change in Mental Status Sepsis Action Taken by Nursing 05/30/22 18:30 05/30/22 18:40 05/30/22 18:50 Temperature Temperature Source Pulse Rate 52 L 60 60 Pulse Rate from SpO2 Sensor 60 60 Respiratory Rate 22 24 23 Respiratory Effort / Characteristics Respiratory Depth Blood Pressure Blood Pressure Mean Pulse Oximetry 98 98 Oxygen Delivery Method Sepsis Recent Fever Within 48 Hours Sepsis New/Unexplained Change in Mental Status Sepsis Action Taken by Nursing Laboratory Data 05/30/22 17:51 05/30/22 17:51 Lab Results 05/30/22 05/30/22 05/30/22 Range/Units 17:51 17:51 17:51 WBC 3.73 L (4.8-10.8) K/ul RBC 2.03 L (4.20-5.40) M/uL Hgb 6.7 L* (12.0-16.0) g/dl Hct 20.4 L* (37.0-47.0) % MCV 100.5 H (80.0-100.0) fL MCH 33.0 (25.0-34.0) pg MCHC 32.8 (32.0-36.0) g/dL RDW Std Deviation 64.0 H (36.4-46.3) fL RDW Coeff of Irasema 17.8 H (11.5-14.5) % Plt Count 116 L (130-400) K/uL MPV 11.4 (9.4-12.4) fL Immature Gran % (Auto) 0.3 % Neut % (Auto) 79.0 % Lymph % (Auto) 12.9 % Morgan % (Auto) 6.2 % Eos % (Auto) 1.1 % Baso % (Auto) 0.5 % Neut # (Auto) 2.95 (1.40-6.50) K/uL Lymph # (Auto) 0.48 L (1.2-3.4) K/uL Morgan # (Auto) 0.23 (0.11-0.59) K/uL Eos # (Auto) 0.04 (0-0.50) K/uL Baso # (Auto) 0.02 (0-0.2) K/uL Immature Gran # (Auto) 0.01 (0.01-0.20) K/uL Hypochromasia Present Ovalocytes 1+ PT 11.2 (9.0-12.0) Seconds INR 1.1 (0.9-1.1) APTT 23.4 (21.0-31.0) Seconds PTT Ratio 0.9 Sodium (136-145) mmol/L Potassium (3.5-5.1) mmol/L Chloride (98-107) mmol/L Carbon Dioxide (21-32) mmol/L Anion Gap (3-11) BUN (6-23) mg/dl Creatinine (0.6-1.2) mg/dl Est Cr Clr Drug Dosing Est GFR ( Amer) ml/min Est GFR (Non-Af Amer) ml/min BUN/Creatinine Ratio (10-20) Glucose (70-99(Fasting)) mg/dl Calcium (8.6-10.3) mg/dl Total Bilirubin (0.2-1.0) mg/dl AST (13-39) U/L ALT (7-52) U/L Alkaline Phosphatase (34-104) U/L Troponin I High Sens (0-14) pg/ml Total Protein (6.0-8.3) gm/dl Albumin (3.4-5.0) gm/dl Globulin (2.5-4.0) gm/dl Albumin/Globulin Ratio (0.9-2) SARS-CoV-2, RNA, NAAT (NEGATIVE) Blood Type O Positive Antibody Screen NEGATIVE Crossmatch See Detail 05/30/22 05/30/22 Range/Units 17:51 18:06 WBC (4.8-10.8) K/ul RBC (4.20-5.40) M/uL Hgb (12.0-16.0) g/dl Hct (37.0-47.0) % MCV (80.0-100.0) fL MCH (25.0-34.0) pg MCHC (32.0-36.0) g/dL RDW Std Deviation (36.4-46.3) fL RDW Coeff of Irasema (11.5-14.5) % Plt Count (130-400) K/uL MPV (9.4-12.4) fL Immature Gran % (Auto) % Neut % (Auto) % Lymph % (Auto) % Morgan % (Auto) % Eos % (Auto) % Baso % (Auto) % Neut # (Auto) (1.40-6.50) K/uL Lymph # (Auto) (1.2-3.4) K/uL Morgan # (Auto) (0.11-0.59) K/uL Eos # (Auto) (0-0.50) K/uL Baso # (Auto) (0-0.2) K/uL Immature Gran # (Auto) (0.01-0.20) K/uL Hypochromasia Ovalocytes PT (9.0-12.0) Seconds INR (0.9-1.1) APTT (21.0-31.0) Seconds PTT Ratio Sodium 138 (136-145) mmol/L Potassium 4.6 (3.5-5.1) mmol/L Chloride 100 (98-107) mmol/L Carbon Dioxide 32 (21-32) mmol/L Anion Gap 6 (3-11) BUN 29 H (6-23) mg/dl Creatinine 2.30 H (0.6-1.2) mg/dl Est Cr Clr Drug Dosing Not Reportable Est GFR ( Amer) 21.9 ml/min Est GFR (Non-Af Amer) 18.9 ml/min BUN/Creatinine Ratio 12.6 (10-20) Glucose 164 H (70-99(Fasting)) mg/dl Calcium 8.2 L (8.6-10.3) mg/dl Total Bilirubin 0.3 (0.2-1.0) mg/dl AST 32 (13-39) U/L ALT 32 (7-52) U/L Alkaline Phosphatase 290 H (34-104) U/L Troponin I High Sens 30.7 H (0-14) pg/ml Total Protein 5.4 L (6.0-8.3) gm/dl Albumin 3.2 L (3.4-5.0) gm/dl Globulin 2.2 L (2.5-4.0) gm/dl Albumin/Globulin Ratio 1.5 (0.9-2) SARS-CoV-2, RNA, NAAT NEGATIVE (NEGATIVE) Blood Type Antibody Screen Crossmatch Administered Medications Pantoprazole Sodium 40 mg/ (Dextrose) 100 mls @ 20 mls/hr IV Q5H [place] Stop: 06/29/22 18:14 Last Admin: 05/30/22 19:50 Dose: 8 mg/hr, 20 mls/hr Documented By: ROMERO Discontinued Medications Pantoprazole Sodium 80 mg/ (Dextrose) 120 mls @ 400 mls/hr IV NOW ONE Stop: 05/30/22 18:07 Last Infusion: 05/30/22 19:33 Dose: 0 mls/hr Documented By: Admin: 05/30/22 19:13 Dose: 400 mls/hr Documented By: LISSETTE Discharge Plan Visit Data Chief Complaint: Referred by Doctor Stated Complaint: HEMOGLOBIN 6.6,REF BY DOC,WEAKNESS,SOB ED Provider: Bharathi Collins Discharge Problem: GIB (gastrointestinal bleeding), ABLA (acute blood loss anemia) Patient Disposition: Being Evaluated by Hospitalist Discharge Instructions Interventions: ED Discharge Assessment Last Done: 05/30/22 21:43 GIB (gastrointestinal bleeding) Qualifiers: GI bleed type/associated pathology: unspecified gastrointestinal hemorrhage type Qualified Code(s): K92.2 - Gastrointestinal hemorrhage, unspecified
[2022-05-30 18:21] LABS: INR 1.1 (0.9-1.1); Partial Thromboplastin Ratio 0.9; Partial Thromboplastin Time 23.4 Seconds (21.0-31.0); Prothrombin Time 11.2 Seconds (9.0-12.0)
[2022-05-30 18:29] LABS: Basophils # (auto) 0.02 K/uL (0-0.2); Basophils % (auto) 0.5 %; Eosinophils # (auto) 0.04 K/uL (0-0.50); Eosinophils % (auto) 1.1 %; Hypochromasia Present; Immature Granulocytes # (auto) 0.01 K/uL (0.01-0.20); Immature Granulocytes % (auto) 0.3 %; Lymphocytes # (auto) 0.48 K/uL (1.2-3.4); Lymphocytes % (auto) 12.9 %; Monocytes # (auto) 0.23 K/uL (0.11-0.59); Monocytes % (auto) 6.2 %; Neutrophils # (auto) 2.95 K/uL (1.40-6.50); Ovalocytes 1+
[2022-05-30 18:51] LABS: Alanine Aminotransferase 32 U/L (7-52); Albumin Globulin Ratio 1.5 (0.9-2); Albumin Level 3.2 gm/dl (3.4-5.0); Alkaline Phosphatase 290 U/L (34-104); Anion Gap 6 (3-11); Aspartate Aminotransferase 32 U/L (13-39); BUN Creatinine Ratio 12.6 (10-20); Bilirubin,Total 0.3 mg/dl (0.2-1.0); Blood Urea Nitrogen 29 mg/dl (6-23); Calcium 8.2 mg/dl (8.6-10.3); Carbon Dioxide 32 mmol/L (21-32); Chloride 100 mmol/L (98-107); Est GFR (African American) 21.9 ml/min; Est GFR (Non-African American) 18.9 ml/min; Globulin 2.2 gm/dl (2.5-4.0); Glucose 164 mg/dl (70-99(Fasting)); Potassium 4.6 mmol/L (3.5-5.1); Sodium 138 mmol/L (136-145); Total Protein 5.4 gm/dl (6.0-8.3)
--- NOTE | 2022-05-30 18:55 | History & Physical Report ---
Date of Service May 30, 2022 Assessment & Plan (1) Acute GI bleeding: Plan: 2 units packed red blood cells Repeat CBC 6am following this. Aim Hgb > 9 due to ongoing recurrent bleeding. Recurrent GI bleed ?hemorrhoids ?diverticular ?GAVE Pantoprazole IV drip, famotidine 20mg switch to IV BID Clear liquids, NPO after midnight Consult gastroenterology (2) ABLA (acute blood loss anemia): (3) ESRD on hemodialysis: Plan: Consult nephrology (4) Diabetes mellitus type 2 with complications: Plan: Stop home meds Start Novolog: --Goal BSG Range: Low 110 mg/dL, High 140 mg/dL --Correction Factor: 45 mg/dL/unit No carb coverage --BSGs ACHS if eating, q6h if npo (5) Neurogenic bladder: Plan: Continue bethanechol chloride (6) Aortic stenosis: Plan: Moderate to severe on echo in January - likely contributing towards dizziness in setting of anemia (7) Atrial fibrillation and flutter: Plan: Not previously mentioned in EHR although this appears on numerous EKGs including today. Not on anticoagulation due to recurrent bleeding Rate controlled not on medication (8) Hypertension: Plan: Clearly should not be taking tamsulosin and doxazosin per med rec. Per external pharmacy list she hasn't been prescribed doxazosin since June 2021 therefore will d/c this. Continue furosemide and amlodipine (9) Cirrhosis: Plan: Plt mildly reduced, INR normal Plan VTE Prophylaxis - chemical contraindicated Diet - clear liquids, NPO at midnight Disposition - admit to med/tele Admission and Anticipated Discharge Date Admission Date: May 30, 2022 History of Present Illness Chief Complaint: Anemia on outpatient labs Primary Care Provider: DO Fredi Andersonruby Ray is an 82 year old female with end stage renal disease on dialysis who presents to the ER with hemoglobin 6.6 on outpatient labs earlier today. She has known GAVE, angioectasia in the duodenum and hemorrhoidal bleeding. She is not currently on any anticoagulation or NSAIDs. She was most recently hospitalized from May 11 - 2022 due to acute blood loss anemia with GAVE treated with APC and noted to have nonbleeding internal hemorrhoids. She has noticed increased bright red blood on toilet paper since discharge. No melena. Regarding anemia she has felt more weak and lightheaded especially over the last couple of days, but really progressively getting worse over the last week. She denies any chest pain or shortness of breath. No abdominal pain, hematemesis, hemoptysis, hematuria, nausea or vomiting. Hemoglobin on repeat labs was 6.7 g/dL. She has been ordered 2 units of blood and started on intravenous pantoprazole. She was referred to medicine for admission and ongoing management of acute blood loss anemia. Allergies Allergy/AdvReac Type Severity Reaction Status Date / Time sulfamethoxazole AdvReac Unknown REMOTE Verified 05/29/22 09:40 [From Bactrim] HX/PT NOT SURE REACTION trimethoprim [From Bactrim] AdvReac Unknown REMOTE Verified 05/29/22 09:40 HX/PT NOT SURE REACTION Home Medications Medication Instructions Recorded Confirmed Type cholecalciferol (vitamin D3) 25 2,000 unit PO QAM 05/29/18 05/30/22 History mcg (1,000 unit) capsule (Vitamin D3) cranberry fruit concentrate 250 mg 500 mg PO QAM 05/29/18 05/30/22 History chewable tablet (Azo Cranberry) omega-3s 300 xz-omh-huj-other 1 cap PO QAM 05/29/18 05/30/22 History [id number] oil 1,000 mg capsule ([place]-3 Fish Oil) blood sugar diagnostic (Blood #100 ea 10/12/20 05/30/22 Rx Glucose Test strips) ascorbic acid (vitamin C) 500 mg 1,000 mg PO QAM 11/12/20 05/30/22 History tablet (Vitamin C) cyanocobalamin (vitamin B-12) 1,000 mcg PO QAM 11/12/20 05/30/22 History 1,000 mcg tablet (Vitamin B-12) tamsulosin 0.4 mg capsule (Flomax) 0.4 mg PO QAM 11/12/20 05/30/22 History bethanechol chloride 50 mg tablet 50 mg PO BID #180 tabs 04/19/21 05/30/22 Rx atorvastatin 10 mg tablet (Lipitor) 10 mg PO HS #90 tabs 11/18/21 05/30/22 Rx Saccharomyces boulardii 250 mg 250 mg PO BID #180 caps 12/05/21 05/30/22 Rx capsule (Florastor) diaper,brief,adult,disposable #150 ea 12/07/21 05/30/22 Rx (Fitted Briefs X-Large) doxazosin 4 mg tablet 4 mg PO QAM 12/07/21 05/30/22 History hydrocortisone 2.5 % topical cream 1 applic OR UD PRN hemorrhoids 12/07/21 05/30/22 History with perineal applicator hydrocortisone acetate 25 mg 25 mg OR QAM PRN Hemorrhoids 12/07/21 05/30/22 History rectal suppository (Anusol-HC) linagliptin 5 mg tablet (Tradjenta) 5 mg PO QAM #90 tabs 12/07/21 05/30/22 Rx triamcinolone acetonide 0.05 % 1 applic topical BID #430 grams 01/18/22 05/30/22 Rx topical ointment furosemide 80 mg tablet 80 mg PO BID 03/20/22 05/30/22 History sevelamer carbonate 800 mg tablet 800 mg PO TIDM 03/20/22 05/30/22 History famotidine 40 mg tablet 40 mg PO BID #60 tabs 03/21/22 05/30/22 Rx methocarbamol 500 mg tablet 500 mg PO TID PRN muscle spasm #90 05/03/22 05/30/22 Rx tabs amlodipine 10 mg tablet (Norvasc) 5 mg PO QPM 05/18/22 05/30/22 History pantoprazole 40 mg tablet,delayed 40 mg PO BID #60 tabs 05/19/22 05/30/22 Rx release (Protonix) calcium citrate 200 mg (950 mg) 400 mg PO QAM 05/29/22 05/30/22 History tablet loperamide 2 mg capsule 2 mg PO UD PRN Diarrhea 05/29/22 05/30/22 History ropinirole 0.5 mg tablet 0.5 mg PO UD 05/29/22 05/30/22 History estradiol 0.01% (0.1 mg/gram) 1 applic vaginal UD 05/30/22 05/30/22 History vaginal cream levothyroxine 112 mcg tablet 112 mcg PO DAILYBB 05/30/22 05/30/22 History (Synthroid) tramadol 50 mg tablet 50 mg PO BID PRN Pain 05/30/22 05/30/22 History vitamin E 268 mg (400 unit) capsule 268 mg PO QAM 05/30/22 05/30/22 History Past Med/Surg History Medical History (Updated 05/31/22 @ 06:47 by Davian Stephens MD) Anemia of chronic disease Anxiety Aortic stenosis CAD (coronary artery disease) Chronic diastolic heart failure Chronic hyponatremia Diabetes mellitus, type 2 Diabetic retinopathy Difficult intravenous access Essential tremor MINOR IN HAND Fatty liver First degree AV block GAVE (gastric antral vascular ectasia) GERD without esophagitis Hearing deficit no hearing aids Hemorrhoids Hiatal hernia History of CVA (cerebrovascular accident) (2018) ~3-4 years ago, woke up with weakness in her rt hand; L lacunar infarct; previously on plavix>no residual effects History of GI bleed hx 08/2021, given transfusion-per medical record REASON FOR UPCOMING PROCEDURE History of recent hospitalization GI BLEED/LOW BLOOD COUNT/HX BLOOD TRANSFUSION - MAY 2022 - [facility] History of renal dialysis TUES,THUR AND SAT ([facility] [place]/ACROSS FROM [facility]) ACCESS SITE RIGHT SIDE OF CHEST/ ? DETAILS Hx of atrial fibrillation, no current medication per medical report Hyperlipidemia Hypertension Hypothyroidism 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 Osteoarthritis Poor historian RBBB f/u dr. aguirre Recurrent UTI HX/MUST BE OLD PROBLEM PER PT Resistant hypertension Restless legs Skin lesion UPCOMING BIOPSY FOREHEAD JUNE 07 HX SKIN LESION/REMOVED - ? DETAILS Urinary urgency Venous insufficiency Weakness Surgical History H/O varicose vein ligation History of back surgery (04/2010) X 2 History of bladder suspension procedure X 2 History of colonoscopy History of esophagogastroduodenoscopy (EGD) History of esophagogastroduodenoscopy (EGD) 04/06/22 at [facility] with Dr. Mich Pacheco- EGD- Gastric antral vascular ectasia with bleeding, treated with argon plasma coagulation (APC); Few angioectasias in the duodenum, treated with APC History of tooth extraction Hx of cardiac catheterization 08/2021, [facility] w/Dr. Moura for increased cardiac pressures; no stents S/P carpal tunnel release RT/LEFT S/P hysterectomy ANDRIA S/P knee replacement RT/LEFT S/P pericardiocentesis 08/2021, [facility], w/dr moura S/P trigger finger release Family History Father Alcohol abuse Heart disease Myocardial infarction Hypertension Sister Pancreatic cancer Diabetes Breast cancer Brother Diabetes Alcohol abuse Stroke Other Cancer No family history of adverse response to anesthesia Denies family history of Ovarian cancer Prostate cancer Colorectal cancer Social History Smoking Status: Never smoker Second Hand Exposure: Yes (long time ago, 40+ years ago); Hx Alcohol Use: No Hx Substance Use: No Preferred Language: Cameroonian Communication Ability: Effective Visual Impairment: No Limitations Hearing Ability: Normal Events Manager Required: No Beliefs That Will Affect Care: None marital status: Single Current Living Situation: Alone Current Living Situation Comment: 2 [address]S current occupational status: retired How many Children do You have: 2 Other Information That Helps Us Care for You: No Feels Safe at Home: Yes Safety Concerns: Feels Safe At This Time Childhood Exposure to Second-Hand Smoke: No Diet Comment: regular caffeine: Yes (Coffee x 2 cups per day.) during the past year weight has: remained stable Dental Care, Regularly: No Physical Activity Frequency: Does not Exercise Seatbelt Use: always Sunscreen Use: Yes Assistive Devices: Glasses Review of Systems Review of Systems: All systems reviewed & are unremarkable except as noted in HPI & below Physical Exam Constitutional: WD/WN, vitals as above Eyes: + anicteric sclerae; normal pupil size Respiratory: normal respiratory effort, lungs clear to auscultation Cardiovascular: Rate/Rhythm: regular rate and regular rhythm Extremities: normal capillary refill and + pedal edema (trace pitting b/l equal); no calf tenderness Gastrointestinal (Abdomen): normal bowel sounds, soft, nontender, no hepatosplenomegaly Musculoskeletal: no cyanosis or clubbing, extremities motor strength 5/5 Skin: no rashes, warm and dry Neurologic: moves all extremities and awake; not confused Psychiatric: A+Ox3, euthymic affect Results & Data Results & Data Vital Signs (Past 12 Hours) Vital Signs Temp Pulse Resp BP Pulse Ox O2 Del Method 05/30/22 18:16 55 L 05/30/22 17:49 98 Room Air 05/30/22 17:36 37.1 C 64 16 107/60 100 Room Air Laboratory Results Abnormal lab results 05/30/22 05/30/22 05/30/22 Range/Units 17:51 17:51 17:51 WBC 3.73 L (4.8-10.8) K/ul RBC 2.03 L (4.20-5.40) M/uL Hgb 6.7 L* (12.0-16.0) g/dl Hct 20.4 L* (37.0-47.0) % MCV 100.5 H (80.0-100.0) fL RDW Std Deviation 64.0 H (36.4-46.3) fL RDW Coeff of Irasema 17.8 H (11.5-14.5) % Plt Count 116 L (130-400) K/uL Lymph # (Auto) 0.48 L (1.2-3.4) K/uL BUN 29 H (6-23) mg/dl Creatinine 2.30 H (0.6-1.2) mg/dl Glucose 164 H (70-99(Fasting)) mg/dl Calcium 8.2 L (8.6-10.3) mg/dl Alkaline Phosphatase 290 H (34-104) U/L Troponin I High Sens 30.7 H (0-14) pg/ml Total Protein 5.4 L (6.0-8.3) gm/dl Albumin 3.2 L (3.4-5.0) gm/dl Globulin 2.2 L (2.5-4.0) gm/dl Crossmatch See Detail Medications Administered ER Medications Given: Pantoprazole 80mg IV bolus and drip ECG Rate (beats per minute): 56 Rhythm: atrial flutter Findings: + RBBB; no acute ischemic change Comparison ECG Date: from (May 11, 2022) Change: no significant change Code Status & VTE Plan Code Status DNR/DNI VTE Prophylaxis Plan VTE Prophylaxis will be ordered: Yes PG Care Time/CCT Total # of Minutes Spent Total Time Spent with Patient: Total time spent is greater than 50% in coordination of care (as documented) at patient's floor/unit and/or counseling patient: Coding Level of Care Code 25754 INT INP/OBS CARE 3/75MIN Diagnoses Acute GI bleeding K92.2 ABLA (acute blood loss anemia) D62 ESRD on hemodialysis N18.6; Z99.2 Diabetes mellitus type 2 with complications E11.8 Neurogenic bladder N31.9 Aortic stenosis I35.0 Atrial fibrillation and flutter I48.91; I48.92 Hypertension I10 Cirrhosis K74.60
[2022-05-30 18:56] LABS: Troponin I High Sensitivity 30.7 pg/ml (0-14)
[2022-05-30] MEDS: PANTOprazole 40 MG in DEXTROSE 5% 100 ML IV SCH (19:50)
[2022-05-30] MEDS ORDERED: ACETAMINOPHEN 325 MG TAB PO PRN (21:44)
[2022-05-31] MEDS: FUROSEMIDE 80 MG TAB PO SCH ×3 (00:06→17:36)
[2022-05-31] MEDS: rOPINIRole HCL 1 MG TABLET PO SCH ×2 (00:08→20:09)
[2022-05-31] MEDS: BETHANECHOL CHL 25 MG TAB PO SCH ×3 (00:09→20:08)
[2022-05-31] MEDS: FAMOTIDINE 20 MG in SYRINGE 3 ML IV SCH ×3 (00:10→20:05)
[2022-05-31] MEDS: PANTOprazole 40 MG in DEXTROSE 5% 100 ML IV SCH ×5 (03:35→23:29)
[2022-05-31] MEDS: LEVOTHYROXINE SODIUM 112 MCG TABLET PO SCH (06:11)
[2022-05-31] MEDS ORDERED: DEXTROSE 50% 50 ML SYRINGE IV PRN (06:45)
[2022-05-31] MEDS ORDERED: GLUCOSE 40% GEL 15 GM TUBE PO PRN (06:45)
[2022-05-31] MEDS ORDERED: GLUCAGON FOR INJ 1 MG VIAL SQ PRN (06:45)
[2022-05-31] MEDS ORDERED: GLUCOSE 10 TAB/TUBE PO PRN (06:45)
[2022-05-31] MEDS ORDERED: CARBOHYDRATES FOR HYPOGLYCEMIA PO PRN (06:45)
[2022-05-31 07:27] LABS: INR 1.1 (0.9-1.1); Partial Thromboplastin Ratio 0.9; Partial Thromboplastin Time 25.3 Seconds (21.0-31.0); Prothrombin Time 11.4 Seconds (9.0-12.0)
[2022-05-31 07:29] LABS: Albumin Globulin Ratio 1.5 (0.9-2); BUN Creatinine Ratio 12.8 (10-20); Bilirubin,Total 0.8 mg/dl (0.2-1.0); Calcium 7.8 mg/dl (8.6-10.3); Creatinine Clr Calc Pharmacy 12.1 ml/min; Est GFR (African American) 17.8 ml/min; Est GFR (Non-African American) 15.3 ml/min; Potassium 4.4 mmol/L (3.5-5.1)
[2022-05-31] MEDS ORDERED: INSULIN ASPART PER UNIT CHARGE SC SCH (07:30)
[2022-05-31 07:32] LABS: Basophils # (auto) 0.02 K/uL (0-0.2); Basophils % (auto) 0.5 %; Eosinophils # (auto) 0.11 K/uL (0-0.50); Eosinophils % (auto) 2.7 %; Hematocrit (blood only) 26.5 % (37.0-47.0); Hemoglobin 8.9 g/dl (12.0-16.0); Immature Granulocytes # (auto) 0.01 K/uL (0.01-0.20); Immature Granulocytes % (auto) 0.2 %; Lymphocytes # (auto) 0.61 K/uL (1.2-3.4); Lymphocytes % (auto) 15.1 %; Mean Corpuscular Hemoglobin 31.4 pg (25.0-34.0); Mean Corpuscular Hgb Conc 33.6 g/dL (32.0-36.0); Mean Corpuscular Volume 93.6 fL (80.0-100.0); Mean Platelet Volume 10.7 fL (9.4-12.4); Monocytes # (auto) 0.29 K/uL (0.11-0.59); Monocytes % (auto) 7.2 %; Neutrophils % (auto) 74.3 %; Platelet Count 109 K/uL (130-400); RDW Coefficient of Variation 19.7 % (11.5-14.5); Red Blood Count 2.83 M/uL (4.20-5.40); White Blood Count 4.04 K/ul (4.8-10.8)
[2022-05-31] MEDS ORDERED: Nursing to Pharmacy Communication SCH (07:45)
[2022-05-31] MEDS: TAMSULOSIN HCL 0.4 MG CAP PO SCH (08:43)
[2022-05-31] MEDS: METHOCARBAMOL 500 MG TABLET PO PRN (08:44)
[2022-05-31] MEDS: SEVELAMER HCL 800 MG TABLET PO SCH ×3 (08:45→17:36)
[2022-05-31] MEDS ORDERED: FAMOTIDINE 20MG/5ML IV PUSH IV ONE (08:47)
[2022-05-31] MEDS ORDERED: DOXAZosin MESYLATE 4 MG TAB PO SCH (09:00)
--- NOTE | 2022-05-31 10:52 | Gastrointestinal Consultation ---
Date of Consultation May 31, 2022 Assessment & Plan (1) Acute GI bleeding: (2) Anemia: Plan Patient with known history of GAVE requiring frequent APC and +VCE several months ago with fresh blood in the duodenal bulb/D2. -Clear liquids today, NPO after midnight -EGD with push enteroscopy planned for 06/01/22 -Continue IV Protonix gtt -Continue to monitor H/H -Further recommendations pending results of testing History of Present Illness Reason for Consultation: GI bleeding, history of GAVE and +VCE Attending Physician: Davian Stephens MD History of Present Illness I had the pleasure of evaluating Sully Faria today in the ED. The patient is an 82 yo female with ESRD on hemodialysis who presented to the ED due to abnormal labs collected as an outpatient on 05/30/22. Patient's hemoglobin was noted to be 6.6 with a hematocrit of 20.4. For reference, her hemoglobin on 05/13/22 was 9.0. She has a known history of GAVE. She had an EGD on 05/12/22 and was found to have GAVE and treated with APC. A recent VCE in March was noted to see GAVE along with blood in the duodenal bulb & D2 without a clear source such as an ulcer. She notes intermittent melena, but not with every bowel movement. She has known internal hemorrhoids noted on colonoscopy on 05/12/22. She notes these lead to BRBPR on the toilet tissue intermittently. Of note, it is documented in her chart that she has had an increased amount of BRBPR since her last admission, however she further elaborates to me that this is not the case. She notes that she has been noticing BRBPR with wiping for an extended time--before she even had her colonoscopy on 05/12/22. What is the biggest change in her opinion is that she is noticing more intermittent melena, but she is not sure if it's happening more frequently or if she has been paying more attention. She has received PRBCs and her current H/H is 8.9/26.5. BP 123/50. HR 50. RR 18. Allergies Allergy/AdvReac Type Severity Reaction Status Date / Time sulfamethoxazole AdvReac Unknown REMOTE Verified 05/29/22 09:40 [From Bactrim] HX/PT NOT SURE REACTION trimethoprim [From Bactrim] AdvReac Unknown REMOTE Verified 05/29/22 09:40 HX/PT NOT SURE REACTION Home Medications Medication Instructions Recorded Confirmed Type cholecalciferol (vitamin D3) 25 2,000 unit PO QAM 05/29/18 05/30/22 History mcg (1,000 unit) capsule (Vitamin D3) cranberry fruit concentrate 250 mg 500 mg PO QAM 05/29/18 05/30/22 History chewable tablet (Azo Cranberry) omega-3s 300 cf-szt-ujd-other 1 cap PO QAM 05/29/18 05/30/22 History euwdc7l-[id number] oil 1,000 mg capsule ([place]-3 Fish Oil) blood sugar diagnostic (Blood #100 ea 10/12/20 05/30/22 Rx Glucose Test strips) ascorbic acid (vitamin C) 500 mg 1,000 mg PO QAM 11/12/20 05/30/22 History tablet (Vitamin C) cyanocobalamin (vitamin B-12) 1,000 mcg PO QAM 11/12/20 05/30/22 History 1,000 mcg tablet (Vitamin B-12) tamsulosin 0.4 mg capsule (Flomax) 0.4 mg PO QAM 11/12/20 05/30/22 History bethanechol chloride 50 mg tablet 50 mg PO BID #180 tabs 04/19/21 05/30/22 Rx atorvastatin 10 mg tablet (Lipitor) 10 mg PO HS #90 tabs 11/18/21 05/30/22 Rx Saccharomyces boulardii 250 mg 250 mg PO BID #180 caps 12/05/21 05/30/22 Rx capsule (Florastor) diaper,brief,adult,disposable #150 ea 12/07/21 05/30/22 Rx (Fitted Briefs X-Large) doxazosin 4 mg tablet 4 mg PO QAM 12/07/21 05/30/22 History hydrocortisone 2.5 % topical cream 1 applic MS UD PRN hemorrhoids 12/07/21 05/30/22 History with perineal applicator hydrocortisone acetate 25 mg 25 mg MS QAM PRN Hemorrhoids 12/07/21 05/30/22 History rectal suppository (Anusol-HC) linagliptin 5 mg tablet (Tradjenta) 5 mg PO QAM #90 tabs 12/07/21 05/30/22 Rx triamcinolone acetonide 0.05 % 1 applic topical BID #430 grams 01/18/22 05/30/22 Rx topical ointment furosemide 80 mg tablet 80 mg PO BID 03/20/22 05/30/22 History sevelamer carbonate 800 mg tablet 800 mg PO TIDM 03/20/22 05/30/22 History famotidine 40 mg tablet 40 mg PO BID #60 tabs 03/21/22 05/30/22 Rx methocarbamol 500 mg tablet 500 mg PO TID PRN muscle spasm #90 05/03/22 05/30/22 Rx tabs amlodipine 10 mg tablet (Norvasc) 5 mg PO QPM 05/18/22 05/30/22 History pantoprazole 40 mg tablet,delayed 40 mg PO BID #60 tabs 05/19/22 05/30/22 Rx release (Protonix) calcium citrate 200 mg (950 mg) 400 mg PO QAM 05/29/22 05/30/22 History tablet loperamide 2 mg capsule 2 mg PO UD PRN Diarrhea 05/29/22 05/30/22 History ropinirole 0.5 mg tablet 0.5 mg PO UD 05/29/22 05/30/22 History estradiol 0.01% (0.1 mg/gram) 1 applic vaginal UD 05/30/22 05/30/22 History vaginal cream levothyroxine 112 mcg tablet 112 mcg PO DAILYBB 05/30/22 05/30/22 History (Synthroid) tramadol 50 mg tablet 50 mg PO BID PRN Pain 05/30/22 05/30/22 History vitamin E 268 mg (400 unit) capsule 268 mg PO QAM 05/30/22 05/30/22 History Patient History Medical History Anemia of chronic disease Anxiety Aortic stenosis CAD (coronary artery disease) Chronic diastolic heart failure Chronic hyponatremia Diabetes mellitus, type 2 Diabetic retinopathy Difficult intravenous access Essential tremor MINOR IN HAND Fatty liver First degree AV block GAVE (gastric antral vascular ectasia) GERD without esophagitis Hearing deficit no hearing aids Hemorrhoids Hiatal hernia History of CVA (cerebrovascular accident) (2018) ~3-4 years ago, woke up with weakness in her rt hand; L lacunar infarct; previously on plavix>no residual effects History of GI bleed hx 08/2021, given transfusion-per medical record REASON FOR UPCOMING PROCEDURE History of recent hospitalization GI BLEED/LOW BLOOD COUNT/HX BLOOD TRANSFUSION - MAY 2022 - [facility] History of renal dialysis [place] AND SAT ([facility] [place]ACROSS FROM [facility]) ACCESS SITE RIGHT SIDE OF CHEST/ ? DETAILS Hx of atrial fibrillation, no current medication per medical report Hyperlipidemia Hypertension Hypothyroidism 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 Osteoarthritis Poor historian RBBB f/u dr. aguirre Recurrent UTI HX/MUST BE OLD PROBLEM PER PT Resistant hypertension Restless legs Skin lesion UPCOMING BIOPSY FOREHEAD JUNE 07 HX SKIN LESION/REMOVED - ? DETAILS Urinary urgency Venous insufficiency Weakness Surgical History H/O varicose vein ligation History of back surgery (04/2010) X 2 History of bladder suspension procedure X 2 History of colonoscopy History of esophagogastroduodenoscopy (EGD) History of esophagogastroduodenoscopy (EGD) 04/06/22 at [facility] with Dr. Mich Pacheco- EGD- Gastric antral vascular ectasia with bleeding, treated with argon plasma coagulation (APC); Few angioectasias in the duodenum, treated with APC History of tooth extraction Hx of cardiac catheterization 08/2021, [facility] w/Dr. Moura for increased cardiac pressures; no stents S/P carpal tunnel release RT/LEFT S/P hysterectomy ANDRIA S/P knee replacement RT/LEFT S/P pericardiocentesis 08/2021, [facility], w/dr moura S/P trigger finger release Family History Father Alcohol abuse Heart disease Myocardial infarction Hypertension Sister Pancreatic cancer Diabetes Breast cancer Brother Diabetes Alcohol abuse Stroke Other Cancer No family history of adverse response to anesthesia Denies family history of Ovarian cancer Prostate cancer Colorectal cancer Social History Smoking Status: Never smoker Second Hand Exposure: Yes (long time ago, 40+ years ago); Hx Alcohol Use: No Hx Substance Use: No Preferred Language: Kazakh Communication Ability: Effective Visual Impairment: No Limitations Hearing Ability: Normal 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 Bag Making Machinist Required: No Beliefs That Will Affect Care: None marital status: Single Current Living Situation: Alone Current Living Situation Comment: 2 CATS current occupational status: retired How many Children do You have: 2 Other Information That Helps Us Care for You: No Feels Safe at Home: Yes Safety Concerns: Feels Safe At This Time Childhood Exposure to Second-Hand Smoke: No Diet Comment: regular caffeine: Yes (Coffee x 2 cups per day.) during the past year weight has: remained stable Dental Care, Regularly: No Physical Activity Frequency: Does not Exercise Seatbelt Use: always Sunscreen Use: Yes Assistive Devices: None Review of Systems Constitutional: no fever and no chills Respiratory: no cough and no dyspnea Cardiovascular: no chest pain Gastrointestinal: + melena; no abdominal pain, no heartburn, no nausea, no vomiting and no coffee ground emesis Integumentary: bruising Psychiatric: no problem reported Hematologic / Lymphatic: no unexplained weight loss Physical Exam Constitutional: WD/WN, vitals as above Respiratory: normal respiratory effort Gastrointestinal (Abdomen): normal bowel sounds, soft, nontender, no hepatosplenomegaly Musculoskeletal: Head/Neck/Chest: normocephalic Psychiatric: Orientation: alert and oriented x 3 Results & Data Vital Signs (Past 12 Hours) Vital Signs Temp Pulse Pulse Resp BP BP Pulse Ox 05/31/22 08:00 50 L 18 123/50 L 97 05/31/22 06:54 52 L 05/31/22 06:22 60 18 129/50 L 96 05/31/22 03:12 57 L 17 143/60 H 97 05/31/22 02:05 36.6 C 54 L 18 124/80 98 05/31/22 01:28 36.7 C 54 L 18 160/48 H 98 05/31/22 00:28 36.6 C 54 L 16 160/53 H 98 05/30/22 23:58 36.9 C 56 L 18 151/61 H 97 05/30/22 23:43 36.6 C 57 L 28 H 142/58 H 97 05/30/22 23:41 36.6 C 56 L 18 144/51 H 97 05/30/22 23:27 36.6 C 60 18 147/56 H 95 05/30/22 22:54 37.6 C H 59 L 18 137/61 95 O2 Del Method 05/31/22 08:00 Room Air 05/31/22 06:54 05/31/22 06:22 Room Air 05/31/22 03:12 Room Air 05/31/22 02:05 05/31/22 01:28 05/31/22 00:28 05/30/22 23:58 05/30/22 23:43 05/30/22 23:41 05/30/22 23:27 05/30/22 22:54 PG Care Time/CCT Total # of Minutes Spent Total Time Spent with Patient: Total time spent is greater than 50% in coordination of care (as documented) at patient's floor/unit and/or counseling patient: Coding Level of Care Code 24042 INT INP/OBS CARE 3/75MIN Diagnoses Acute GI bleeding K92.2 Anemia D64.9 Anemia type: unspecified type (2) Anemia Anemia type: unspecified type Qualified Code(s): D64.9 - Anemia, unspecified
--- NOTE | 2022-05-31 13:11 | Electrocardiogram Report ---
Test Reason : Blood Pressure : / mmHG Vent. Rate : 056 BPM Atrial Rate : 300 BPM P-R Int : 000 ms QRS Dur : 128 ms QT Int : 486 ms P-R-T Axes : 000 -11 002 degrees QTc Int : 468 ms Probable Atrial flutter Right bundle branch block Abnormal ECG When compared with ECG of 11-MAY-2022 06:37, No significant change Confirmed by Andres Agudelo ([id number]) on 05/31/2022 1:11:20 PM Referred By: Kaylan Will Confirmed By:Andres Agudelo
[2022-05-31] MEDS: INSULIN ASPART PER UNIT CHARGE SC SCH ×2 (13:35→17:45)
[2022-05-31] MEDS: rOPINIRole HCL 0.25 MG TABLET PO SCH (13:35)
--- NOTE | 2022-05-31 16:41 | Nephrology Consultation ---
Date of Consultation May 31, 2022 Assessment & Plan (1) ESRD on hemodialysis: (2) Anemia: (3) Secondary hyperparathyroidism of renal origin: (4) Hypertension: Plan ESRD, on hemodialysis via right IJ tunneled dialysis catheter on TTS at [facility]. Has history of GI bleeding with AVM, presented with anemia with hemoglobin 6.6. receive 2 units of PRBC yesterday and hemoglobin improved to 8.7 this morning, denies any active GI bleeding. Blood pressure, volume status and electrolyte acceptable. -- Overall volume status seems acceptable despite getting 2 units of blood transfusion yesterday, plan for push enteroscopy tomorrow. Appreciate GI recommendation for repeated GI bleeding with critical drop in hemoglobin. Wonder whether there si any other permanent options to prevent such frequent critical blood loss. -- Continue on low-potassium, low phosphorus diet, continue on phosphate binder. -- Dose medications for eGFR less than 10 Will follow Thank you for allowing me to participate in your patient's care. It was a pleasure to see Sully. History of Present Illness Reason for Consultation: ESRD on HD,admitted with anemia ? GIB Attending Physician: Davian Stephens MD History of Present Illness Mrs. Sully Faria is a 82 year-old female with ESRD on HD, chronic GI bleeding, admitted to the hospital with acute GI bleeding and anemia. Nephrology consult was requested to provide hemodialysis. EMR records were reviewed in detail in patient's visit. Spoke with her daughter Cher over telephone. Sully presented to the ED yesterday after outpatient lab on 05/30/22 showed Hb 6.6, Hb in ER yesterday was 6.7. Overall she has been feeling weak and tired but did not notice any significant shortness of breath or chest pain.She has been noticing occasional bright red per rectum over last few days specially when she wipes herself after bowel movement. Her hemoglobin was 8.2 last week. She has been on high dose of erythropoietin stimulating agent but still requiring frequent blood transfusion. She was otherwise hemodynamically stable. Did not complain of any active GI bleeding this morning. She was evaluated by GI this morning and plan for push enteroscopy tomorrow. Received 2 units of PRBC with improvement in hemoglobin to 8.7 this morning. she was admitted to hospital 2 weeks ago with significant blood loss anemia requiring blood transfusion and discharged after hemoglobin improved was 9.0 on 05/13/22. She has a known history of GAVE. She had an EGD on 05/12/22 and was found to have GAVE and treated with APC. A recent VCE in March was noted to see GAVE along with blood in the duodenal bulb & D2 without a clear source such as an ulcer. She has known internal hemorrhoids noted on colonoscopy on 05/12/22. ESRD secondary to hypertension, DKD, and renovascular disease started on hemodialysis during hospitalization at [facility] in August 2021, on TTS HD at [facility] via C, refused AVF. IDWG typically low and she continues to make a good amount of urine. Medical history is also notable for non-obstructive coronary artery disease, HFpEF, severe aortic stenosis, atrial fibrillation, chronic anemia with GIB, imaging evidence of cirrhosis, NAFLD, hypertension, diabetes mellitus type II, neurogenic bladder, OA/DJD, and hypothyroidism. Overall she has been feeling weak and tired but denies any other symptoms. Allergies Allergy/AdvReac Type Severity Reaction Status Date / Time sulfamethoxazole AdvReac Unknown REMOTE Verified 05/29/22 09:40 [From Bactrim] HX/PT NOT SURE REACTION trimethoprim [From Bactrim] AdvReac Unknown REMOTE Verified 05/29/22 09:40 HX/PT NOT SURE REACTION Home Medications Medication Instructions Recorded Confirmed Type cholecalciferol (vitamin D3) 25 2,000 unit PO QAM 05/29/18 05/30/22 History mcg (1,000 unit) capsule (Vitamin D3) cranberry fruit concentrate 250 mg 500 mg PO QAM 05/29/18 05/30/22 History chewable tablet (Azo Cranberry) omega-3s 300 th-zjx-qli-other 1 cap PO QAM 05/29/18 05/30/22 History [id number] oil 1,000 mg capsule ([facility]-3 Fish Oil) blood sugar diagnostic (Blood #100 ea 10/12/20 05/30/22 Rx Glucose Test strips) ascorbic acid (vitamin C) 500 mg 1,000 mg PO QAM 11/12/20 05/30/22 History tablet (Vitamin C) cyanocobalamin (vitamin B-12) 1,000 mcg PO QAM 11/12/20 05/30/22 History 1,000 mcg tablet (Vitamin B-12) tamsulosin 0.4 mg capsule (Flomax) 0.4 mg PO QAM 11/12/20 05/30/22 History bethanechol chloride 50 mg tablet 50 mg PO BID #180 tabs 04/19/21 05/30/22 Rx atorvastatin 10 mg tablet (Lipitor) 10 mg PO HS #90 tabs 11/18/21 05/30/22 Rx Saccharomyces boulardii 250 mg 250 mg PO BID #180 caps 12/05/21 05/30/22 Rx capsule (Florastor) diaper,brief,adult,disposable #150 ea 12/07/21 05/30/22 Rx (Fitted Briefs X-Large) doxazosin 4 mg tablet 4 mg PO QAM 12/07/21 05/30/22 History hydrocortisone 2.5 % topical cream 1 applic WA UD PRN hemorrhoids 12/07/21 05/30/22 History with perineal applicator hydrocortisone acetate 25 mg 25 mg WA QAM PRN Hemorrhoids 12/07/21 05/30/22 History rectal suppository (Anusol-HC) linagliptin 5 mg tablet (Tradjenta) 5 mg PO QAM #90 tabs 12/07/21 05/30/22 Rx triamcinolone acetonide 0.05 % 1 applic topical BID #430 grams 01/18/22 05/30/22 Rx topical ointment furosemide 80 mg tablet 80 mg PO BID 03/20/22 05/30/22 History sevelamer carbonate 800 mg tablet 800 mg PO TIDM 03/20/22 05/30/22 History famotidine 40 mg tablet 40 mg PO BID #60 tabs 03/21/22 05/30/22 Rx methocarbamol 500 mg tablet 500 mg PO TID PRN muscle spasm #90 05/03/22 05/30/22 Rx tabs amlodipine 10 mg tablet (Norvasc) 5 mg PO QPM 05/18/22 05/30/22 History pantoprazole 40 mg tablet,delayed 40 mg PO BID #60 tabs 05/19/22 05/30/22 Rx release (Protonix) calcium citrate 200 mg (950 mg) 400 mg PO QAM 05/29/22 05/30/22 History tablet loperamide 2 mg capsule 2 mg PO UD PRN Diarrhea 05/29/22 05/30/22 History ropinirole 0.5 mg tablet 0.5 mg PO UD 05/29/22 05/30/22 History estradiol 0.01% (0.1 mg/gram) 1 applic vaginal UD 05/30/22 05/30/22 History vaginal cream levothyroxine 112 mcg tablet 112 mcg PO DAILYBB 05/30/22 05/30/22 History (Synthroid) tramadol 50 mg tablet 50 mg PO BID PRN Pain 05/30/22 05/30/22 History vitamin E 268 mg (400 unit) capsule 268 mg PO QAM 05/30/22 05/30/22 History Patient History Medical History Anemia of chronic disease Anxiety Aortic stenosis CAD (coronary artery disease) Chronic diastolic heart failure Chronic hyponatremia Diabetes mellitus, type 2 Diabetic retinopathy Difficult intravenous access Essential tremor MINOR IN HAND Fatty liver First degree AV block GAVE (gastric antral vascular ectasia) GERD without esophagitis Hearing deficit no hearing aids Hemorrhoids Hiatal hernia History of CVA (cerebrovascular accident) (2018) ~3-4 years ago, woke up with weakness in her rt hand; L lacunar infarct; previously on plavix>no residual effects History of GI bleed hx 08/2021, given transfusion-per medical record REASON FOR UPCOMING PROCEDURE History of recent hospitalization GI BLEED/LOW BLOOD COUNT/HX BLOOD TRANSFUSION - MAY 2022 - [facility] History of renal dialysis TU,THUR AND SAT ([facility] [place]/ACROSS FROM [facility]) ACCESS SITE RIGHT SIDE OF CHEST/ ? DETAILS Hx of atrial fibrillation, no current medication per medical report Hyperlipidemia Hypertension Hypothyroidism 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 Osteoarthritis Poor historian RBBB f/u dr. aguirre Recurrent UTI HX/MUST BE OLD PROBLEM PER PT Resistant hypertension Restless legs Skin lesion UPCOMING BIOPSY FOREHEAD JUNE 07 HX SKIN LESION/REMOVED - ? DETAILS Urinary urgency Venous insufficiency Weakness Surgical History H/O varicose vein ligation History of back surgery (04/2010) X 2 History of bladder suspension procedure X 2 History of colonoscopy History of esophagogastroduodenoscopy (EGD) History of esophagogastroduodenoscopy (EGD) 04/06/22 at [facility] with Dr. Mich Pacheco- EGD- Gastric antral vascular ectasia with bleeding, treated with argon plasma coagulation (APC); Few angioectasias in the duodenum, treated with APC History of tooth extraction Hx of cardiac catheterization 08/2021, [facility] w/Dr. Moura for increased cardiac pressures; no stents S/P carpal tunnel release RT/LEFT S/P hysterectomy ANDRIA S/P knee replacement RT/LEFT S/P pericardiocentesis 08/2021, [facility], w/dr moura S/P trigger finger release Family History Father Alcohol abuse Heart disease Myocardial infarction Hypertension Sister Pancreatic cancer Diabetes Breast cancer Brother Diabetes Alcohol abuse Stroke Other Cancer No family history of adverse response to anesthesia Denies family history of Ovarian cancer Prostate cancer Colorectal cancer Social History Smoking Status: Never smoker Second Hand Exposure: Yes (long time ago, 40+ years ago); Hx Alcohol Use: No Hx Substance Use: No Preferred Language: Uzbek Communication Ability: Effective Visual Impairment: No Limitations Hearing Ability: Normal Commercial Specialist Required: No Beliefs That Will Affect Care: None marital status: Single Current Living Situation: Alone Current Living Situation Comment: 2 [address]S current occupational status: retired How many Children do You have: 2 Feels Safe at Home: Yes Childhood Exposure to Second-Hand Smoke: No Diet Comment: regular caffeine: Yes (Coffee x 2 cups per day.) during the past year weight has: remained stable Dental Care, Regularly: No Physical Activity Frequency: Does not Exercise Seatbelt Use: always Sunscreen Use: Yes Assistive Devices: None Review of Systems Review of Systems: DEtail ROS was otherwise unremarkable. Physical Exam Constitutional: WD/WN, vitals as above no acute distress Eyes: + anicteric sclerae Neck: normal visual inspection Respiratory: no respiratory distress Auscultation: lungs clear to auscultation bilaterally Cardiovascular: Rate/Rhythm: regular rate and regular rhythm Heart Sounds: normal S1 and normal S2 Extremities: no edema Gastrointestinal (Abdomen): Inspection/Auscultation: abdomen normal to inspection and normal bowel sounds Percussion/Palpation: abdomen soft; abdomen nontender Musculoskeletal: Extremities: extremities normal to inspection Skin: no rashes Neurologic: no focal motor deficits Psychiatric: Orientation: alert and oriented x 3 Affect: euthymic affect Results & Data Vital Signs (Past 12 Hours) Vital Signs Pulse Pulse Resp BP Pulse Ox Pulse Ox O2 Del Method 05/31/22 11:34 53 L 18 137/65 99 Room Air 05/31/22 11:33 99 05/31/22 08:00 50 L 18 123/50 L 97 Room Air 05/31/22 06:54 52 L 05/31/22 06:22 60 18 129/50 L 96 Room Air O2 Del Method 05/31/22 11:34 05/31/22 11:33 Room Air 05/31/22 08:00 05/31/22 06:54 05/31/22 06:22 PG Care Time/CCT Total # of Minutes Spent Total Time Spent with Patient: Total time spent is greater than 50% in coordination of care (as documented) at patient's floor/unit and/or counseling patient: Coding Level of Care Code 52811 INT INP/OBS CARE 375MIN Diagnoses ESRD on hemodialysis N18.6; Z99.2 Anemia D64.9 Anemia type: unspecified type Secondary hyperparathyroidism of renal origin N25.81 Hypertension I10 (2) Anemia Anemia type: unspecified type Qualified Code(s): D64.9 - Anemia, unspecified
--- NOTE | 2022-05-31 18:59 | Hospitalist Progress Note ---
Date of Service May 31, 2022 Assessment & Plan (1) Acute GI bleeding: Plan: 2 units packed red blood cells transfused, hemoglobin now 8.9. For scopes tomorrowalmost certainly related to GAVE, but appreciate GI input. Hemodynamically stable and feels better now. Repeat CBC 6am following this. Aim Hgb > 9 due to ongoing recurrent bleeding. Continue acid suppression Has active surveillance as an outpatient with hemoglobins at dialysis, unfortunately this drop was rather precipitous. (2) ABLA (acute blood loss anemia): Plan: Now improved status post 2 units (3) ESRD on hemodialysis: Plan: Nephrology input appreciated. (4) Diabetes mellitus type 2 with complications: Plan: Sugars overall acceptable. Continue current insulin management. (5) Neurogenic bladder: Plan: Continue bethanechol chloride (6) Aortic stenosis: Plan: Moderate to severe on echo in January - likely contributing towards dizziness in setting of anemia (7) Atrial fibrillation and flutter: Plan: Rate controlled (slightly slow but asymptomatic) anticoagulation on hold due to GAVE. (8) Hypertension: Plan: Per admitting physician: Clearly should not be taking tamsulosin and doxazosin per med rec. Per external pharmacy list she hasn't been prescribed doxazosin since June 2021 therefore will d/c this. Continue furosemide and amlodipine (9) Cirrhosis: Plan: Plt mildly reduced, INR normal Plan VTE Prophylaxis - chemical contraindicated Diet - clear liquids, NPO at midnight Disposition -from home, anticipate being able to go home after scopes, assuming ongoing hemodynamic stability/no further interventions needed. Admission and Anticipated Discharge Date Admission Date: May 30, 2022 Subjective feeling ok - better after transfusion. no other new complaints. for scope tomorrow. gets weekly Hgb at HD. Review of Systems Review of Systems: All systems reviewed & are unremarkable except as noted in HPI & below Physical Exam Physical Exam: In general she is awake alert pleasant no distress. HEENT normocephalic atraumatic mucous membranes moist. Breathing unlabored no accessory muscle use good effort. Skin shows no rashes no pallor or icterus. Neuro without focal deficits. Results & Data Results & Data Vital Signs (Past 12 Hours) Vital Signs Temp Pulse Resp BP BP Pulse Ox Pulse Ox 05/31/22 18:33 05/31/22 18:29 97.5 F L 59 L 18 146/50 H 98 05/31/22 11:34 53 L 18 137/65 99 05/31/22 11:33 99 05/31/22 08:00 50 L 18 123/50 L 97 O2 Del Method O2 Del Method 05/31/22 18:33 Room Air 05/31/22 18:29 Room Air 05/31/22 11:34 Room Air 05/31/22 11:33 Room Air 05/31/22 08:00 Room Air PG Care Time/CCT Total # of Minutes Spent Total Time Spent with Patient: Total time spent is greater than 50% in coordination of care (as documented) at patient's floor/unit and/or counseling patient: Coding Level of Care Code 93851 SUB INP/OBS CARE 235MIN Diagnoses Acute GI bleeding K92.2 ABLA (acute blood loss anemia) D62 ESRD on hemodialysis N18.6; Z99.2 Diabetes mellitus type 2 with complications E11.8 Neurogenic bladder N31.9 Aortic stenosis I35.0 Atrial fibrillation and flutter I48.91; I48.92 Hypertension I10 Cirrhosis K74.60
[2022-05-31] MEDS: amLODIPine BESYLATE 5 MG TAB PO SCH (20:07)
[2022-05-31] MEDS: ATORVASTATIN 10 MG TAB PO SCH (20:08)
[2022-05-31] MEDS: MELATONIN 3 MG TAB PO PRN (21:37)
[2022-06-01] MEDS: INSULIN ASPART PER UNIT CHARGE SC SCH ×5 (00:06→21:51)
[2022-06-01] MEDS: PANTOprazole 40 MG in DEXTROSE 5% 100 ML IV SCH ×4 (04:11→21:41)
[2022-06-01] MEDS: LEVOTHYROXINE SODIUM 112 MCG TABLET PO SCH (05:52)
[2022-06-01 06:12] LABS: Basophils # (auto) 0.03 K/uL (0-0.2); Basophils % (auto) 0.7 %; Eosinophils # (auto) 0.12 K/uL (0-0.50); Eosinophils % (auto) 2.7 %; Hematocrit (blood only) 29.2 % (37.0-47.0); Hemoglobin 9.8 g/dl (12.0-16.0); Immature Granulocytes # (auto) 0.02 K/uL (0.01-0.20); Immature Granulocytes % (auto) 0.5 %; Lymphocytes # (auto) 0.63 K/uL (1.2-3.4); Lymphocytes % (auto) 14.4 %; Mean Corpuscular Hemoglobin 31.2 pg (25.0-34.0); Mean Corpuscular Hgb Conc 33.6 g/dL (32.0-36.0); Mean Platelet Volume 10.7 fL (9.4-12.4); Monocytes # (auto) 0.29 K/uL (0.11-0.59); Monocytes % (auto) 6.6 %; Neutrophils # (auto) 3.29 K/uL (1.40-6.50); Neutrophils % (auto) 75.1 %; Platelet Count 128 K/uL (130-400); RDW Coefficient of Variation 18.4 % (11.5-14.5); RDW Standard Deviation 61.9 fL (36.4-46.3); Red Blood Count 3.14 M/uL (4.20-5.40); White Blood Count 4.38 K/ul (4.8-10.8)
[2022-06-01 06:34] LABS: Albumin Globulin Ratio 1.3 (0.9-2); Albumin Level 2.8 gm/dl (3.4-5.0); BUN Creatinine Ratio 11.2 (10-20); Bilirubin,Total 0.6 mg/dl (0.2-1.0); Calcium 7.7 mg/dl (8.6-10.3); Creatinine Clr Calc Pharmacy 9.7 ml/min; Est GFR (African American) 13.7 ml/min; Est GFR (Non-African American) 11.9 ml/min; Globulin 2.1 gm/dl (2.5-4.0); INR 1.1 (0.9-1.1); Partial Thromboplastin Ratio 0.9; Partial Thromboplastin Time 25.9 Seconds (21.0-31.0); Potassium 4.1 mmol/L (3.5-5.1); Prothrombin Time 11.3 Seconds (9.0-12.0); Total Protein 4.9 gm/dl (6.0-8.3)
[2022-06-01] MEDS: SEVELAMER HCL 800 MG TABLET PO SCH ×3 (08:11→17:30)
[2022-06-01] MEDS: FAMOTIDINE 20 MG in SYRINGE 3 ML IV SCH ×2 (08:15→21:52)
--- NOTE | 2022-06-01 08:53 | Hospitalist Progress Note ---
Date of Service June 01, 2022 Assessment & Plan (1) Acute GI bleeding: Plan: Acute issue, high risk Acute blood loss anemia 2 units packed red blood cells transfused, endoscopy 06/01/22 c continues to diagnose GAVE, treated with APC recommended 2- week follow-up endoscopy continue ppi Has active surveillance as an outpatient with hemoglobins at dialysis (2) ESRD on hemodialysis: Plan: Chronic stable Nephrology input appreciated. chronic neurogenic bladder, continue bethanincol (3) Diabetes mellitus type 2 with complications: Plan: Chronic stable, , Continue current insulin management. (4) Aortic stenosis: Plan: Moderate to severe on echo in January - (5) Atrial fibrillation and flutter: Plan: Chronic stable, Rate controlled witout meds(slightly slow but asymptomatic) anticoagulation on hold due to GAVE. chronic stable hypertension treated with amilodipine and fursemide Plan VTE Prophylaxis - chemical contraindicated Admission and Anticipated Discharge Date Admission Date: May 30, 2022 Subjective pt was seen post dialysis feels stable and wants to go home endoscopy 06/01/22 Physical Exam Physical Exam: Patient is in no distress card exam is regular lungs are clear abdomen is actually nontender Results & Data Results & Data Vital Signs (Past 12 Hours) Vital Signs Temp Pulse Pulse Resp BP BP Pulse Ox 06/01/22 08:02 97.7 F 53 L 16 161/60 H 93 06/01/22 07:26 49 L 06/01/22 04:06 97.7 F 60 18 161/73 H 95 06/01/22 01:00 47 L 05/31/22 23:14 98.1 F 54 L 18 150/54 H 95 O2 Del Method 06/01/22 08:02 Room Air 06/01/22 07:26 06/01/22 04:06 Room Air 06/01/22 01:00 05/31/22 23:14 Room Air Diagnostic Findings Endoscopy of 06/01/2020 showing extensive gastric antral vascular ectasias which were treated with a argon plasma coagulation recommend repeat endoscopy and treatment in 2 weeks PG Care Time/CCT Total # of Minutes Spent Total Time Spent with Patient: Total time spent is greater than 50% in coordination of care (as documented) at patient's floor/unit and/or counseling patient: Coding Level of Care Code 31356 SUB INP/OBS CARE 3/50MIN Diagnoses Acute GI bleeding K92.2 ESRD on hemodialysis N18.6; Z99.2 Diabetes mellitus type 2 with complications E11.8 Aortic stenosis I35.0 Atrial fibrillation and flutter I48.91; I48.92
--- NOTE | 2022-06-01 09:35 | History & Physical Bridge Note ---
Date of Service June 01, 2022 History & Physical Bridge Note I have examined the patient, reviewed the History & Physical and in the interval since the performance of the History & Physical I have noted the following changes of clinical significance: no changes noted. H/H 9.8/29.2. No melena/hematemesis/hematochezia since admission. Continue Protonix gtt for now. Keep NPO for EGD with push enteroscopy today.
[2022-06-01] MEDS: METHOCARBAMOL 500 MG TABLET PO PRN (13:02)
[2022-06-01] MEDS: FUROSEMIDE 80 MG TAB PO SCH ×2 (13:02→17:32)
[2022-06-01] MEDS: TAMSULOSIN HCL 0.4 MG CAP PO SCH (13:02)
[2022-06-01] MEDS: BETHANECHOL CHL 25 MG TAB PO SCH ×2 (13:03→21:44)
[2022-06-01] MEDS: rOPINIRole HCL 0.25 MG TABLET PO SCH (13:05)
--- NOTE | 2022-06-01 14:27 | Nephrology Progress Note ---
Date of Service June 01, 2022 Assessment & Plan (1) ESRD on hemodialysis: (2) Anemia: (3) Secondary hyperparathyroidism of renal origin: (4) Hypertension: Plan ESRD, on hemodialysis via right IJ tunneled dialysis catheter on TTS at [facility]. Has history of GI bleeding with AVM, presented with anemia with hemoglobin 6.6. receive 2 units of PRBC on 06/01/22 and hemoglobin improved to 9.7 this morning, denies any active GI bleeding. Blood pressure, volume status and electrolyte acceptable. --Tolerating HD. --due for push enteroscopy today --continue on low-potassium, low phosphorus diet, continue on phosphate binder. --dose medications for eGFR less than 10 Will follow Admission and Anticipated Discharge Date Admission Date: May 30, 2022 Kathryn Virk was seen during HD, tolerating well. Vital signs has been stable. Hemoglobin improved to 9.7 after 2 PRBC yesterday. Electrolyte has been acceptable. BP slightly elevated. Review of Systems Review of Systems: DEtail ROS was otherwise unremarkable. Physical Exam Constitutional: WD/WN, vitals as above no acute distress Eyes: + anicteric sclerae Neck: normal visual inspection Respiratory: no respiratory distress Auscultation: lungs clear to ausculta tion bilaterally Cardiovascular: Rate/Rhythm: regular rate and regular rhythm Heart Sounds: normal S1 and normal S2 Extremities: no edema Musculoskeletal: Extremities: extremities normal to inspection Skin: no rashes Neurologic: no focal motor deficits Psychiatric: Orientation: alert and oriented x 3 Affect: euthymic affect Results & Data Vital Signs (Past 12 Hours) Vital Signs Temp Pulse Pulse Pulse Resp BP BP 06/01/22 12:08 36.7 C 54 L 06/01/22 12:00 51 L 131/57 L 06/01/22 11:30 51 L 145/67 H 06/01/22 11:00 56 L 121/52 L 06/01/22 10:30 56 L 113/46 L 06/01/22 10:00 56 L 166/60 H 06/01/22 09:30 53 L 115/47 L 06/01/22 09:00 50 L 125/59 L 06/01/22 08:34 54 L 153/56 H 06/01/22 08:28 36.5 C 54 L 06/01/22 08:02 36.5 C 53 L 16 161/60 H 06/01/22 07:26 49 L 06/01/22 04:06 36.5 C 60 18 BP Pulse Ox O2 Del Method 06/01/22 12:08 160/41 H 06/01/22 12:00 06/01/22 11:30 06/01/22 11:00 06/01/22 10:30 06/01/22 10:00 06/01/22 09:30 06/01/22 09:00 06/01/22 08:34 06/01/22 08:28 06/01/22 08:02 93 Room Air 06/01/22 07:26 06/01/22 04:06 161/73 H 95 Room Air PG Care Time/CCT Total # of Minutes Spent Total Time Spent with Patient: Total time spent is greater than 50% in coordination of care (as documented) at patient's floor/unit and/or counseling patient: Coding Level of Care Code 82506 SUB INP/OBS CARE 3/50MIN Diagnoses ESRD on hemodialysis N18.6; Z99.2 Anemia D64.9 Anemia type: unspecified type Secondary hyperparathyroidism of renal origin N25.81 Hypertension I10 (2) Anemia Anemia type: unspecified type Qualified Code(s): D64.9 - Anemia, unspecified
--- NOTE | 2022-06-01 15:12 | Anesthesiology Consultation ---
Date of Service June 01, 2022 Assessment & Plan Chart Review Chart Review: Acceptable Risk for Surgery and Patient NOT seen in Pre Admission Testing Consults Requested none ASA ASA3 Proposed Anesthesia Anesthesia Type: MAC Risk / Benefits Reviewed With: PT / POA / Parent / Guardian, Accepts Plan and Informed Consent Obtained History Surgery Operation Date: 06/01/22 16:30 Proposed Procedures p Small Bowel Enteroscopy Dr. Pacheco - Mich Pacheco MD Height/Weight Height: 4 ft 9 in Weight: 63.5 kg Allergies Allergy/AdvReac Type Severity Reaction Status Date / Time sulfamethoxazole AdvReac Unknown REMOTE Verified 05/29/22 09:40 [From Bactrim] HX/PT NOT SURE REACTION trimethoprim [From Bactrim] AdvReac Unknown REMOTE Verified 05/29/22 09:40 HX/PT NOT SURE REACTION Medications Home Medications Medication Instructions Recorded Confirmed Last Taken cholecalciferol (vitamin D3) 25 2,000 unit PO QAM 05/29/18 05/30/22 12/11/21 mcg (1,000 unit) capsule (Vitamin D3) cranberry fruit concentrate 250 mg 500 mg PO QAM 05/29/18 05/30/22 12/11/21 chewable tablet (Azo Cranberry) omega-3s 300 [id number] 1 cap PO QAM 05/29/18 05/30/22 12/11/21 [id number] oil 1,000 mg capsule ([place]-3 Fish Oil) blood sugar diagnostic (Blood #100 ea 10/12/20 05/30/22 Unknown Glucose Test strips) ascorbic acid (vitamin C) 500 mg 1,000 mg PO QAM 11/12/20 05/30/22 12/11/21 tablet (Vitamin C) cyanocobalamin (vitamin B-12) 1,000 mcg PO QAM 11/12/20 05/30/22 12/11/21 1,000 mcg tablet (Vitamin B-12) tamsulosin 0.4 mg capsule (Flomax) 0.4 mg PO QAM 11/12/20 05/30/22 12/11/21 bethanechol chloride 50 mg tablet 50 mg PO BID #180 tabs 04/19/21 05/30/22 12/11/21 atorvastatin 10 mg tablet (Lipitor) 10 mg PO HS #90 tabs 11/18/21 05/30/2212/11/22 Saccharomyces boulardii 250 mg 250 mg PO BID #180 caps 12/05/21 05/30/22 12/11/21 capsule (Florastor) diaper,brief,adult,disposable #150 ea 12/07/21 05/30/22 Unknown (Fitted Briefs X-Large) doxazosin 4 mg tablet 4 mg PO QAM 12/07/21 05/30/22 12/12/21 04:00 hydrocortisone 2.5 % topical cream 1 applic DE UD PRN hemorrhoids 12/07/21 05/30/22 Unknown with perineal applicator hydrocortisone acetate 25 mg 25 mg DE QAM PRN Hemorrhoids 12/07/21 05/30/22 Unknown rectal suppository (Anusol-HC) linagliptin 5 mg tablet (Tradjenta) 5 mg PO QAM #90 tabs 12/07/21 05/30/22 12/11/21 triamcinolone acetonide 0.05 % 1 applic topical BID #430 grams 01/18/22 05/30/22 Unknown topical ointment furosemide 80 mg tablet 80 mg PO BID 03/20/22 05/30/22 Unknown sevelamer carbonate 800 mg tablet 800 mg PO TIDM 03/20/22 05/30/22 Unknown famotidine 40 mg tablet 40 mg PO BID #60 tabs 03/21/22 05/30/22 Unknown methocarbamol 500 mg tablet 500 mg PO TID PRN muscle spasm #90 05/03/22 05/30/22 Unknown tabs amlodipine 10 mg tablet (Norvasc) 5 mg PO QPM 05/18/22 05/30/22 Unknown pantoprazole 40 mg tablet,delayed 40 mg PO BID #60 tabs 05/19/22 05/30/22 Unknown release (Protonix) calcium citrate 200 mg (950 mg) 400 mg PO QAM 05/29/22 05/30/22 Unknown tablet loperamide 2 mg capsule 2 mg PO UD PRN Diarrhea 05/29/22 05/30/22 Unknown ropinirole 0.5 mg tablet 0.5 mg PO UD 05/29/22 05/30/22 Unknown estradiol 0.01% (0.1 mg/gram) 1 applic vaginal UD 05/30/22 05/30/22 Unknown vaginal cream levothyroxine 112 mcg tablet 112 mcg PO DAILYBB 05/30/22 05/30/22 Unknown (Synthroid) tramadol 50 mg tablet 50 mg PO BID PRN Pain 05/30/22 05/30/22 Unknown vitamin E 268 mg (400 unit) capsule 268 mg PO QAM 05/30/22 05/30/22 Unknown Active Medications Generic Name Dose Route Start Last Admin Trade Name Etta PRN Reason Stop Dose Admin Amlodipine Besylate 5 mg 05/31/22 21:00 05/31/22 20:07 Amlodipine Besylate 5 Mg Tab PO 06/30/22 20:59 5 mg QPM [place] Administration Atorvastatin Calcium 10 mg 05/31/22 21:00 05/31/22 20:08 Atorvastatin 10 Mg Tab PO 06/30/22 20:59 10 mg HS [place] Administration Bethanechol Chloride 50 mg 05/30/22 22:45 06/01/22 13:03 Bethanechol Chl 25 Mg Tab PO 06/29/22 22:44 50 mg BID [place] Administration Furosemide 80 mg 05/30/22 22:45 06/01/22 13:02 Furosemide 80 Mg Tab PO 06/29/22 22:44 80 mg BID17 [place] Administration Pantoprazole Sodium 40 mg/ 100 mls @ 20 mls/hr 05/30/22 18:15 06/01/22 14:22 Dextrose IV 06/29/22 18:14 Not Given Q5H [place] 8 MG/HR Famotidine 20 mg/ Syringe 5 mls @ 2.5 mls/min 05/30/22 22:45 06/01/22 08:15 IV 06/29/22 22:44 2.5 mls/min BID [place] Administration Insulin Aspart 0 units 05/31/22 12:00 06/01/22 13:28 Insulin Aspart Per Unit Charge SC 06/30/22 07:29 Not Given Q6 [place] Levothyroxine Sodium 112 mcg 05/31/22 06:30 06/01/22 05:52 Levothyroxine Sodium 112 Mcg Tablet PO 06/30/22 06:29 Not Given DAILYBB [place] Melatonin 3 mg 05/31/22 20:49 05/31/22 21:37 Melatonin 3 Mg Tab PO 06/30/22 20:48 3 mg HS PRN Administration Sleep Methocarbamol 500 mg 05/30/22 22:41 06/01/22 13:02 Methocarbamol 500 Mg Tablet PO 06/29/22 22:40 500 mg TID PRN Administration muscle spasm Miscellaneous 1 each 05/31/22 00:00 06/01/22 15:03 Linagliptin [Tradjenta] - Order Awaiting Action N/A 06/30/22 00:00 Not Given QS [place] Ropinirole HCl 0.5 mg 05/31/22 14:00 06/01/22 13:05 Ropinirole Hcl 0.25 Mg Tablet PO 06/30/22 13:59 0.5 mg DAILY@1400 [place] Administration Ropinirole HCl 1.5 mg 05/30/22 23:45 05/31/22 20:09 Ropinirole Hcl 1 Mg Tablet PO 06/29/22 23:44 1.5 mg HS [place] Administration Sevelamer HCl 800 mg 05/31/22 08:00 06/01/22 13:04 Sevelamer Hcl 800 Mg Tablet PO 06/30/22 07:59 Not Given TIDM [place] Tamsulosin HCl 0.4 mg 05/31/22 09:00 06/01/22 13:02 Tamsulosin Hcl 0.4 Mg Cap PO 06/30/22 08:59 0.4 mg QAM [place] Administration NPO Date Last Intake of Fluids: 06/01/22 Time Last Intake of Fluids: 12:45 Last Intake of Fluids Comment: sip with meds Date Last Intake of Solids: 05/31/22 Time Last Intake of Solids: 23:59 Past Medical History Medical History Anemia of chronic disease Anxiety Aortic stenosis CAD (coronary artery disease) Chronic diastolic heart failure Chronic hyponatremia Diabetes mellitus, type 2 Diabetic retinopathy Difficult intravenous access Essential tremor MINOR IN HAND Fatty liver First degree AV block GAVE (gastric antral vascular ectasia) GERD without esophagitis Hearing deficit no hearing aids Hemorrhoids Hiatal hernia History of CVA (cerebrovascular accident) (2018) ~3-4 years ago, woke up with weakness in her rt hand; L lacunar infarct; previously on plavix>no residual effects History of GI bleed hx 08/2021, given transfusion-per medical record REASON FOR UPCOMING PROCEDURE History of recent hospitalization GI BLEED/LOW BLOOD COUNT/HX BLOOD TRANSFUSION - MAY 2022 - [facility] History of renal dialysis [facility]AC[facility] HERNANDEZ AND SAT ([facility] [place]/ACROSS FROM [facility]) ACCESS SITE RIGHT SIDE OF CHEST/ ? DETAILS Hx of atrial fibrillation, no current medication per medical report Hyperlipidemia Hypertension Hypothyroidism 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 Osteoarthritis Poor historian RBBB f/u dr. aguirre Recurrent UTI HX/MUST BE OLD PROBLEM PER PT Resistant hypertension Restless legs Skin lesion UPCOMING BIOPSY FOREHEAD JUNE 07 HX SKIN LESION/REMOVED - ? DETAILS Urinary urgency Venous insufficiency Weakness Exercise / Class Metabolic Activity II 4-5 Yardwork/Stairs/Walk up hill Past Family History Family History Father Alcohol abuse Heart disease Myocardial infarction Hypertension Sister Pancreatic cancer Diabetes Breast cancer Brother Diabetes Alcohol abuse Stroke Other Cancer No family history of adverse response to anesthesia Denies family history of Ovarian cancer Prostate cancer Colorectal cancer Past Surgical History Surgical History H/O varicose vein ligation History of back surgery (04/2010) X 2 History of bladder suspension procedure X 2 History of colonoscopy History of esophagogastroduodenoscopy (EGD) History of esophagogastroduodenoscopy (EGD) 04/06/22 at [facility] with [address]. Mich Pacheco- EGD- Gastric antral vascular ectasia with bleeding, treated with argon plasma coagulation (APC); Few angioectasias in the duodenum, treated with APC History of tooth extraction Hx of cardiac catheterization 08/2021, [facility] w/Dr. Moura for increased cardiac pressures; no stents S/P carpal tunnel release RT/LEFT S/P hysterectomy ANDRIA S/P knee replacement RT/LEFT S/P pericardiocentesis 08/2021, [facility], w/dr moura S/P trigger finger release Past Anesthesia History No Hx of Anesthesia Complications and No Family Hx of Anesthesia Complications History of PONV No Hx of PONV and No Hx of Motion Sickness Social History Smoking Status: Never smoker Hx Alcohol Use: No Hx Substance Use: No substance use type: does not use Physical Exam Vital Signs Last Vital Signs Temp 36.7 C 06/01/22 14:53 Pulse 66 06/01/22 14:53 Resp 16 06/01/22 14:53 BP 162/67 H 06/01/22 14:53 Pulse Ox 98 06/01/22 14:53 O2 Del Method Room Air 06/01/22 14:53 ENMT Mouth: no dentition abnormality Thyromental Distance: > or= 3.5 Finger Breadths Mallampati Class: II Neck normal visual inspection Respiratory normal respiratory effort Auscultation: lungs clear to auscultation bilaterally Cardiovascular Rate/Rhythm: regular rate and regular rhythm Chest (Breasts) Chest: + vascular access device or port Psychiatric Orientation: alert Testing Laboratory Results 06/01/22 05:49 06/01/22 05:49 PT 11.3 Seconds (9.0-12.0) 06/01/22 05:49 INR 1.1 (0.9-1.1) 06/01/22 05:49 APTT 25.9 Seconds (21.0-31.0) 06/01/22 05:49 Blood Type O Positive 05/30/22 17:51 Antibody Screen NEGATIVE 05/30/22 17:51 06/01/22 06/01/22 13:08 05:48 POC Glucose 84 102 H
[2022-06-01] MEDS ORDERED: PROPOFOL IV EMULSION 10 MG/ML 20 ML VIAL IV ONE (15:36)
[2022-06-01] MEDS ORDERED: LIDOCAINE 2% MPF LOCAL 5 ML VIAL ONE (15:36)
--- NOTE | 2022-06-01 15:47 | GI REPORT ---
Patient Name: Sully Ray Procedure Date: 06/01/2022 3:24 PM Date of : 1940 Admit Type: Inpatient Age: 82 Gender: Female Attending MD: Mich Pacheco MD, Procedure: Small bowel enteroscopy Providers: Mich Pacheco MD Referring MD: Kaylan Will Indications: Melena Medicines: Monitored Anesthesia Care Complications: No immediate complications. Estimated blood loss: None. Estimated Blood Loss: Estimated blood loss: none. Procedure: Pre-Anesthesia Assessment: - Prior Anticoagulants: The patient has taken no anticoagulant or antiplatelet agents. - ASA Grade Assessment: III - A patient with severe systemic disease. After obtaining informed consent, the endoscope was passed under direct vision. Throughout the procedure, the patient's blood pressure, pulse, and oxygen saturations were monitored continuously. The Colonoscope was introduced through the mouth and advanced to the fourth part of duodenum. The small bowel enteroscopy was accomplished without difficulty. The patient tolerated the procedure well. Findings: The examined esophagus was normal. Severe gastric antral vascular ectasia was present in the gastric antrum. Coagulation for hemostasis using argon plasma at 1.2 liters/minute and 35 jones was successful. There was no evidence of significant pathology in the duodenal bulb, in the first portion of the duodenum, in the second portion of the duodenum, in the third portion of the duodenum and in the fourth portion of the duodenum. Impression: - Normal esophagus. - Gastric antral vascular ectasia. Treated with argon plasma coagulation (APC). - Normal duodenal bulb, first portion of the duodenum, second portion of the duodenum, third portion of the duodenum and fourth portion of the duodenum. - No specimens collected. Recommendation: - Return patient to [facility] for ongoing care. - Advance diet as tolerated today. -repeat EGD with retreatment of GAVE in 2 weeks Mich Pacheco MD 06/01/2022 3:46:55 PM This report has been signed electronically. Note Initiated On: 06/01/2022 3:24 PM Number of Addenda: 0 I attest to the content of the Intraoperative Record and orders documented therein, exceptions below {[id number]}
--- NOTE | 2022-06-01 16:46 | Anesthesiology Progress Note ---
Date of Service June 01, 2022 Anesthesia Post Procedure Vital Signs Vital Signs: Temp Pulse Pulse Pulse Pulse Resp BP 06/01/22 16:37 63 20 06/01/22 15:57 67 66 20 06/01/22 15:43 67 67 16 06/01/22 14:53 36.7 C 66 16 06/01/22 12:08 36.7 C 54 L 06/01/22 12:00 51 L 131/57 L 06/01/22 11:30 51 L 145/67 H 06/01/22 11:00 56 L 121/52 L 06/01/22 10:30 56 L 113/46 L 06/01/22 10:00 56 L 166/60 H 06/01/22 09:30 53 L 115/47 L 06/01/22 09:00 50 L 125/59 L 06/01/22 08:34 54 L 153/56 H 06/01/22 08:28 36.5 C 54 L 06/01/22 08:02 36.5 C 53 L 16 06/01/22 07:26 49 L 06/01/22 04:06 36.5 C 60 18 06/01/22 01:00 47 L 05/31/22 23:14 36.7 C 54 L 18 05/31/22 19:51 05/31/22 18:33 05/31/22 18:29 36.4 C L 59 L 18 BP BP Pulse Ox O2 Del Method 06/01/22 16:37 117/54 L 96 Room Air 06/01/22 15:57 135/97 95 Room Air 06/01/22 15:43 107/46 L 95 Room Air 06/01/22 14:53 162/67 H 98 Room Air 06/01/22 12:08 160/41 H 06/01/22 12:00 06/01/22 11:30 06/01/22 11:00 06/01/22 10:30 06/01/22 10:00 06/01/22 09:30 06/01/22 09:00 06/01/22 08:34 06/01/22 08:28 06/01/22 08:02 161/60 H 93 Room Air 06/01/22 07:26 06/01/22 04:06 161/73 H 95 Room Air 06/01/22 01:00 05/31/22 23:14 150/54 H 95 Room Air 05/31/22 19:51 Room Air 05/31/22 18:33 Room Air 05/31/22 18:29 146/50 H 98 Room Air Transfer of Care Handoff Completed per policy Notes Mental Status: alert / awake / arousable and participated in evaluation Patient Amnestic to Procedure: Yes Nausea / Vomiting: adequately controlled Pain: adequately controlled Airway Patency, RR, SpO2: stable & adequate BP & HR: stable & adequate Hydration State: stable & adequate Anesthetic Complications: no major complications apparent
[2022-06-01] MEDS ORDERED: Nursing to Pharmacy Communication SCH (18:30)
[2022-06-01] MEDS ORDERED: MELATONIN 3 MG TAB PO PRN (21:21)
[2022-06-01] MEDS: amLODIPine BESYLATE 5 MG TAB PO SCH (21:42)
[2022-06-01] MEDS: MELATONIN 3 MG TAB PO PRN (21:42)
[2022-06-01] MEDS: rOPINIRole HCL 1 MG TABLET PO SCH (21:43)
[2022-06-01] MEDS: ATORVASTATIN 10 MG TAB PO SCH (21:43)
[2022-06-02] MEDS: PANTOprazole 40 MG in DEXTROSE 5% 100 ML IV SCH ×2 (02:45→08:41)
[2022-06-02] MEDS: LEVOTHYROXINE SODIUM 112 MCG TABLET PO SCH (05:25)
[2022-06-02 07:21] LABS: Basophils # (auto) 0.03 K/uL (0-0.2); Basophils % (auto) 0.4 %; Eosinophils # (auto) 0.06 K/uL (0-0.50); Eosinophils % (auto) 0.9 %; Hemoglobin 10.5 g/dl (12.0-16.0); Immature Granulocytes # (auto) 0.02 K/uL (0.01-0.20); Immature Granulocytes % (auto) 0.3 %; Lymphocytes # (auto) 0.45 K/uL (1.2-3.4); Lymphocytes % (auto) 6.7 %; Mean Corpuscular Hemoglobin 31.7 pg (25.0-34.0); Mean Corpuscular Hgb Conc 32.8 g/dL (32.0-36.0); Mean Corpuscular Volume 96.7 fL (80.0-100.0); Mean Platelet Volume 10.4 fL (9.4-12.4); Monocytes # (auto) 0.38 K/uL (0.11-0.59); Monocytes % (auto) 5.6 %; Neutrophils % (auto) 86.1 %; Platelet Count 154 K/uL (130-400); RDW Standard Deviation 63.3 fL (36.4-46.3); Red Blood Count 3.31 M/uL (4.20-5.40); White Blood Count 6.74 K/ul (4.8-10.8)
[2022-06-02 07:38] LABS: Albumin Level 3.1 gm/dl (3.4-5.0); BUN Creatinine Ratio 7.1 (10-20); Calcium 7.7 mg/dl (8.6-10.3); Creatinine Clr Calc Pharmacy 11.5 ml/min; Est GFR (African American) 17.2 ml/min; Est GFR (Non-African American) 14.8 ml/min; Phosphorus 3.6 mg/dl (2.5-4.9); Potassium 4.3 mmol/L (3.5-5.1)
[2022-06-02 07:51] LABS: INR 1.1 (0.9-1.1); Partial Thromboplastin Time 26.6 Seconds (21.0-31.0); Prothrombin Time 11.5 Seconds (9.0-12.0)
[2022-06-02] MEDS: TAMSULOSIN HCL 0.4 MG CAP PO SCH (08:41)
[2022-06-02] MEDS: FUROSEMIDE 80 MG TAB PO SCH (08:41)
[2022-06-02] MEDS: BETHANECHOL CHL 25 MG TAB PO SCH (08:41)
[2022-06-02] MEDS: SEVELAMER HCL 800 MG TABLET PO SCH (08:41)
[2022-06-02] MEDS: INSULIN ASPART PER UNIT CHARGE SC SCH ×2 (08:44→13:18)
[2022-06-02] MEDS: FAMOTIDINE 20 MG in SYRINGE 3 ML IV SCH (08:48)
--- NOTE | 2022-06-02 09:55 | Communication Note ---
Date of Service: June 02, 2022 Patient is an 82 yo female with GAVE who underwent EGD/push enteroscopy with APC treatment on 06/01/22. Upon discharge, we would advise continuation of Protonix 40 mg BID. Our office will be in contact with her to schedule her repeat EGD with APC for 2 weeks from now, along with subsequent follow-up appointments as appropriate.
--- NOTE | 2022-06-02 11:15 | Nephrology Progress Note ---
Date of Service June 02, 2022 Assessment & Plan (1) ESRD on hemodialysis: (2) Anemia: (3) Secondary hyperparathyroidism of renal origin: (4) Hypertension: Plan ESRD, on hemodialysis via right IJ tunneled dialysis catheter on TTS at [facility]. Has history of GI bleeding with AVM, presented with anemia with hemoglobin 6.6. receive 2 units of PRBC on 06/01/22 and hemoglobin improved to 9.7 this morning, denies any active GI bleeding. Had push enteroscopy on 06/01/22, severe GAVE s/p APC and plan for repeat EGD in 2 weeks. Blood pressure, volume status and electrolyte acceptable. Hb 10.5 --Had HD yesterday, overall doing well, blood pressure, electrolyte, volume status stable. Okay to be discharged, dialysis tomorrow at outpatient dialysis unit. Explained to her that it is extremely important that she keeps her follow-up EGD in 2 weeks to prevent recurrent severe anemia with active bleeding requiring hospitalization. --continue on low-potassium, low phosphorus diet, continue on phosphate binder. --dose medications for eGFR less than 10 Admission and Anticipated Discharge Date Admission Date: May 30, 2022 Kathryn Virk was seen this morning, doing well, ready to go home. Vital signs has been stable. Hemoglobin improved to 10.5,after 2 PRBC yesterday. Electrolyte has been acceptable. BP fair.. Review of Systems Review of Systems: Detail ROS was otherwise unremarkable. Physical Exam Constitutional: WD/WN, vitals as above no acute distress Eyes: + anicteric sclerae Neck: normal visual inspection Respiratory: no respiratory distress Auscultation: lungs clear to auscultation bilaterally Cardiovascular: Rate/Rhythm: regular rate and regular rhythm Heart Sounds: normal S1 and normal S2 Extremities: no edema Musculoskeletal: Extremities: extremities normal to inspection Skin: no rashes Neurologic: no focal motor deficits Psychiatric: Orientation: alert and oriented x 3 Affect: euthymic affect Results & Data Vital Signs (Past 12 Hours) Vital Signs Temp Pulse Pulse Pulse Pulse Resp BP 06/02/22 10:16 37.0 C 59 L 65 54 L 18 145/66 H 06/02/22 08:22 62 06/02/22 07:28 37.0 C 65 18 145/66 H 06/02/22 02:50 36.7 C 61 17 111/61 BP Pulse Ox O2 Del Method 03/31/23 10:16 109/53 L 99 06/02/22 08:22 06/02/22 07:28 99 Room Air 06/02/22 02:50 96 Room Air PG Care Time/CCT Total # of Minutes Spent Total Time Spent with Patient: Total time spent is greater than 50% in coordination of care (as documented) at patient's floor/unit and/or counseling patient: Coding Level of Care Code 36670 SUB INP/OBS CARE 2/35MIN Diagnoses ESRD on hemodialysis N18.6; Z99.2 Anemia D64.9 Anemia type: unspecified type Secondary hyperparathyroidism of renal origin N25.81 Hypertension I10 (2) Anemia Anemia type: unspecified type Qualified Code(s): D64.9 - Anemia, unspecified
--- NOTE | 2022-06-02 18:34 | Discharge Summary ---
Date of Service June 02, 2022 Admission HPI Per Admitting Provider Sully Ray is an 82 year old female with end stage renal disease on dialysis who presents to the ER with hemoglobin 6.6 on outpatient labs earlier today. She has known GAVE, angioectasia in the duodenum and hemorrhoidal bleeding. She is not currently on any anticoagulation or NSAIDs. She was most recently hospitalized from May 11 - 2022 due to acute blood loss anemia with GAVE treated with APC and noted to have nonbleeding internal hemorrhoids. She has noticed increased bright red blood on toilet paper since discharge. No melena. Regarding anemia she has felt more weak and lightheaded especially over the last couple of days, but really progressively getting worse over the last week. She denies any chest pain or shortness of breath. No abdominal pain, hematemesis, hemoptysis, hematuria, nausea or vomiting. Hemoglobin on repeat labs was 6.7 g/dL. She has been ordered 2 units of blood and started on intravenous pantoprazole. She was referred to medicine for admission and ongoing management of acute blood loss anemia. Principal Diagnosis acute blood loss anemia GAVE s/p transfusion of 2 u prbc Discharge Exam Patient is stable she has no abdominal pain she is eating food able to be discharged Discharge Data Allergies Allergy/AdvReac Type Severity Reaction Status Date / Time sulfamethoxazole AdvReac Unknown REMOTE Verified 05/29/22 09:40 [From Bactrim] HX/PT NOT SURE REACTION trimethoprim [From Bactrim] AdvReac Unknown REMOTE Verified 05/29/22 09:40 HX/PT NOT SURE REACTION Consultations 05/30/22 18:51 ED Decision to Admit Stat 05/31/22 00:16 Consult Gastroenterology Routine Consult Nephrology Routine Procedures Performed Operation Date: 06/01/22 16:30 Actual Procedures p Small Bowel Enteroscopy EGD - Mich Pacheco MD s EGD Hemostasis - Mich Pacheco MD Hospital Course (1) Acute GI bleeding: Acute issue, high risk Acute blood loss anemia 2 units packed red blood cells transfused, endoscopy 06/01/22 c continues to diagnose GAVE, treated with APC recommended 2- week follow-up endoscopy continue ppi Has active surveillance as an outpatient with hemoglobins at dialysis (2) ESRD on hemodialysis: Chronic stable Nephrology input appreciated. chronic neurogenic bladder, continue bethanincol (3) Diabetes mellitus type 2 with complications: Chronic stable, , Continue current insulin management. (4) Aortic stenosis: Moderate to severe on echo in January - (5) Atrial fibrillation and flutter: Chronic stable, Rate controlled witout meds(slightly slow but asymptomatic) anticoagulation on hold due to GAVE. chronic stable hypertension treated with amilodipine and fursemide Total Time Total Time Spent Total Time Spent (In Minutes): It required greater than 30 minutes to prepare this patient for discharge Discharge Plan Discharge Items Patient Disposition: Home - Self-Care Reason For Visit: ACUTE GI BLEED Discharge Diagnosis: Bleeding from stomach varicose veins anemia with need of transfusion Activity: Resume your previous activity Non-emergency contact: Primary Care Provider and [employer] Call non-emergency contact if: your symptoms worsen Follow-up/Referrals: Agatha Alfaro DO [Primary Care Provider] - 06/12/22 9:20 am Mich Pacheco MD [Physician] - 06/09/22 11:40 am Diet: Regular Addtl Attending Provider Instructions: You have been diagnosed wih some varicose veins in your stomach that were treated, you will need to see the GI doctors in 2 weeks for follow up you will be on a anti acid medication on discharge since vitamin C and Cranberry are acidic and can irritate you stomach please hold these until you are told to restart by GI doctors ( Dr Pacheco) If you notice dark stools, weakness or lightheaded ness please return for re evaluation Pending Studies at Discharge: No Stand-Alone Forms: My [facility], Smoking Cessation Medications and DC Order Prescriptions: Continued (DME) Blood Glucose Test Strip See Rx Instructions .ROUTE .MEDSUPPLY Qty: 100 5RF Rx Instructions: Accucheck perform strips. 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 bethanechol chloride 50 mg tablet 50 mg PO BID Qty: 180 3RF atorvastatin [Lipitor] 10 mg tablet 10 mg PO HS Qty: 90 1RF Saccharomyces boulardii [Florastor] 250 mg capsule 250 mg PO BID Qty: 180 3RF (DME) Fitted Briefs X-Large Misc See Rx Instructions .Route Qty: 150 5RF Rx Instructions: using 4-5 per day R19.7 Tradjenta 5 mg tablet 5 mg PO QAM Qty: 90 2RF triamcinolone acetonide 0.05 % ointment 1 applic topical BID Qty: 430 1RF methocarbamol 500 mg tablet 500 mg PO TID PRN (Reason: muscle spasm) Qty: 90 1RF amlodipine [Norvasc] 10 mg tablet 5 mg PO QPM cholecalciferol (vitamin D3) [Vitamin D3] 1,000 unit Capsule 2,000 unit PO QAM [place]-3 Fish Oil 300-1,000 mg Capsule 1 cap PO QAM Patient Comments: NONE FOR ABOUT A WEEK calcium citrate 200 mg (950 mg) Tablet 400 mg PO QAM ropinirole 0.5 mg tablet 0.5 mg PO UD Patient Comments: 2 AFTERNOON AND 3 AT NIGHT Rx Instructions: Take 1 tab PO in afternoon, take 3 tabs at bedtime PO; loperamide 2 mg Capsule 2 mg PO UD PRN (Reason: Diarrhea) Rx Instructions: administer after each loose stool until symptoms controlled; do not exceed 8 mg per 24 hrs tramadol 50 mg tablet 50 mg PO BID PRN (Reason: Pain) levothyroxine [Synthroid] 112 mcg tablet 112 mcg PO DAILYBB estradiol 0.01 % (0.1 mg/gram) cream 1 applic VAGINAL UD vitamin E 268 mg (400 unit) Capsule 268 mg PO QAM famotidine 40 mg tablet 40 mg PO BID Qty: 60 2RF pantoprazole [Protonix] 40 mg tablet,delayed release (DR/EC) 40 mg PO BID Qty: 60 5RF cyanocobalamin (vitamin B-12) [Vitamin B-12] 1,000 mcg tablet 1,000 mcg PO QAM tamsulosin [Flomax] 0.4 mg capsule 0.4 mg PO QAM hydrocortisone acetate [Anusol-HC] 25 mg suppository 25 mg [place] QAM PRN (Reason: Hemorrhoids) hydrocortisone 2.5 % cream with perineal applicator 1 applic [place] UD PRN (Reason: hemorrhoids) doxazosin 4 mg tablet 4 mg PO QAM furosemide 80 mg Tablet 80 mg PO BID sevelamer carbonate 800 mg Tablet 800 mg PO TIDM Rx Instructions: must administer with a meal/food Discontinued Azo Cranberry 250 mg Tablet,Chewable 500 mg PO QAM ascorbic acid (vitamin C) [Vitamin C] 500 mg Tablet 1,000 mg PO QAM Discharge Orders: Discharge Order (Routine); Ordered 06/02/22 Ordered By: Chris West Admission Data Admit Date/Time: 05/30/22 18:54 Attending Provider: Chris West Admit Provider: Davian Stephens Primary Care Provider: Agatha Alfaro Other Providers: Davian Stephens ; Mich Pacheco ; Kaylan Will Other Interventions: Discharge Summary Assessment (RN) Last Done: 06/02/22 10:16 Coding Level of Care Code 65870 INP/OBS DISCH >30 MIN Diagnoses Acute GI bleeding K92.2 ESRD on hemodialysis N18.6; Z99.2 Diabetes mellitus type 2 with complications E11.8 Aortic stenosis I35.0 Atrial fibrillation and flutter I48.91; I48.92
== END 2022-06-02 13:57 | disposition home or self-care (01) | DRG 377 ==
LOC: ED 17:32 → SUATTDRO 18:54 → EDINP 18:54 → 2W 21:43

== ENCOUNTER 2022-07-10 09:58 | Inpatient (IN) ==
[2022-07-10] MEDS ORDERED: ONDANSETRON INJ 2 MG/ML 2 ML VIAL IV STA (10:34)
[2022-07-10] MEDS ORDERED: SODIUM CHLORIDE 0.9% 1000ML 1,000 ML IV SCH (10:45)
[2022-07-10] MEDS ORDERED: LORazepam 2 MG/1 ML VIAL IV STA (10:46)
[2022-07-10] MEDS ORDERED: SODIUM CHLORIDE 0.9% 250 ML IV PRN ×2 (10:50→15:39)
[2022-07-10] MEDS ORDERED: PANTOPRAZOLE BOLUS/DRIP 1 EACH IV STA (10:51)
[2022-07-10] MEDS ORDERED: PANTOprazole 80 MG in DEXTROSE 5% 100 ML IV ONE (10:51)
--- NOTE | 2022-07-10 11:27 | XRay Report ---
XR chest 1V portable CLINICAL HISTORY: Weakness TECHNIQUE: Single frontal radiograph of the chest was obtained. Comparison: Comparison is made to chest radiograph 05/11/2022 FINDINGS: A dual-lumen venous catheter is seen in the right with its tip in the cavoatrial junction. Posterior and lower thoracic spine fixation hardware is seen. Calcified aortic knob is seen. Prominence and cep halization of the vasculature is seen. Small bilateral pleural effusions are seen. IMPRESSION: Small bilateral pleural effusions, increased from prior exam. Previously noted pulmonary vascular con gestion is slightly less conspicuous than in the prior exam. ACT 112: Negative or not required by law. Electronically signed by: Isacc Pak M.D. 07/10/2022 11:26 AM
[2022-07-10 11:43] LABS: Albumin Level 3.1 gm/dl (3.4-5.0); Bilirubin,Total 0.3 mg/dl (0.2-1.0); Calcium 7.7 mg/dl (8.6-10.3); Potassium 4.1 mmol/L (3.5-5.1)
[2022-07-10] MEDS: PANTOprazole 40 MG in DEXTROSE 5% 100 ML IV SCH ×3 (11:43→20:42)
[2022-07-10 11:49] LABS: Albumin Globulin Ratio 1.6 (0.9-2); BUN Creatinine Ratio 14.3 (10-20); Creatinine Clr Calc Pharmacy 9.3 ml/min; Est GFR (African American) 12.6 ml/min; Est GFR (Non-African American) 10.8 ml/min; Globulin 1.9 gm/dl (2.5-4.0)
[2022-07-10 11:53] LABS: Troponin I High Sensitivity 23.1 pg/ml (0-14)
[2022-07-10 11:54] LABS: Hematocrit (blood only) 22.4 % (37.0-47.0); Hemoglobin 7.1 g/dl (12.0-16.0); Mean Corpuscular Hemoglobin 32.4 pg (25.0-34.0); Mean Corpuscular Hgb Conc 31.7 g/dL (32.0-36.0); Mean Corpuscular Volume 102.3 fL (80.0-100.0); Mean Platelet Volume 11.1 fL (9.4-12.4); Platelet Count 96 K/uL (130-400); RDW Coefficient of Variation 18.9 % (11.5-14.5); RDW Standard Deviation 70.5 fL (36.4-46.3); Red Blood Count 2.19 M/uL (4.20-5.40); White Blood Count 3.56 K/ul (4.8-10.8)
[2022-07-10 11:56] LABS: Basophils # (auto) 0.02 K/uL (0-0.2); Basophils % (auto) 0.6 %; Eosinophils # (auto) 0.02 K/uL (0-0.50); Eosinophils % (auto) 0.6 %; Immature Granulocytes # (auto) 0.02 K/uL (0.01-0.20); Immature Granulocytes % (auto) 0.6 %; Lymphocytes % (auto) 11.2 %; Monocytes # (auto) 0.17 K/uL (0.11-0.59); Monocytes % (auto) 4.8 %; Neutrophils # (auto) 2.93 K/uL (1.40-6.50); Neutrophils % (auto) 82.2 %; Platelet Estimate Decreased (Normal); RBC Morphology Unremarkable
--- NOTE | 2022-07-10 13:13 | History & Physical Report ---
Date of Service July 10, 2022 Assessment & Plan (1) Pre-syncope: Plan: Multifactorial with aortic stenosis, bradycardia and anemia. Transfuse to reverse anemia as below. Continue her usual anti-hypertensives for now and get orthostatics tomorrow to make sure symptoms down to anemia. (2) Acute GI bleeding: Plan: Known history of GAVE with frequent APC - discussed with Dr Pacheco and plan is to repeat EGD next Sunday. Recommended transfusion and discharge as long as she is stable with follow up outpatient EGD. IV pantoprazole drip Continue famotidine 40mg PO BID - discuss dosing of this with nephrology as appears be to too high for dilaysis Discuss Carafate with nephrology - reportedly a problem being on this with dialysis Continue octreotide 50mcg SQ BID - ordered but not yet started as outpatient (3) Acute blood loss anemia: Plan: Ferritin, iron studies, B12, folate, retic count Transfuse 2 units packed RBCs Repeat Hgb 2 hours following transfusion. Aim Hgb > 9 in setting of ongoing GI bleed (4) GAVE (gastric antral vascular ectasia): (5) ESRD on hemodialysis: Plan: Due dialysis tomorrow. Consult nephrology to help with this. (6) Hypertension: Plan: Continue amlodipine and furosemide. Will get orthostatics tomorrow following blood transfusion to ensure these can continue. (7) Aortic stenosis: Plan: Moderate-severe on echo 01/2022 (8) Atrial fibrillation and flutter: Plan: Bradycardic Anticoagulation contraindicated in setting of ongoing GI bleed (9) Diabetes mellitus, type 2: Plan: Hemoglobin A1C not accurate in setting of dialysis Continue linagliptin Start Lantus BID 0 units if glucose < 120, 5 units if glucose >=120 Novolog: --Goal BSG Range: Low 110 mg/dL, High 140 mg/dL --Correction Factor: 45 mg/dL/unit --Carbohydrate ratio = 15 g/unit --BSGs ACHS if eating, q6h if npo (10) Hypothyroidism: Plan: TSH 4.05 August 2021 Continue levothyroxine (11) Restless legs: Plan: Continue ropinirole Plan VTE Prophylaxis - contraindicated Diet - clear liquids, dialysis Disposition - observation status to med/tele Admission and Anticipated Discharge Date Admission Date: July 10, 2022 History of Present Illness Chief Complaint: Presyncope Primary Care Provider: DO Fredi Andersonruby Ray is an 82 year old female with ESRD on dialysis and GAVE requiring frequent blood transfusions and EGDs who presents to the ER due to lightheadedness and dizziness. She reports this has been getting worse over the last 2 days with excessive dark diarrheal episode yesterday. No nausea, vomiting dysphagia, odynophagia, hematochezia or abdominal pain. She reports having similar diarrhea on and off but finds it difficult to quantify or give me a good timeline. She had some concerns it was due to recently added Carafate in June although unclear if her diarrhea has been worse since starting this medication therefore she stopped taking this yesterday. This was also on advice of her account executive sales representative. No fever or chills. No upper respiratory or urinary infective symptoms. Hemoglobin dropped from 10.2 in June to 7.1 today. Given history of GAVE with frequent EGDs she was referred to medicine for admission and ongoing management of this. Allergies Allergy/AdvReac Type Severity Reaction Status Date / Time sulfamethoxazole AdvReac Unknown REMOTE Verified 07/10/22 14:06 [From Bactrim] HX/PT NOT SURE REACTION trimethoprim [From Bactrim] AdvReac Unknown REMOTE Verified 07/10/22 14:06 HX/PT NOT SURE REACTION Home Medications Medication Instructions Recorded Confirmed Type cholecalciferol (vitamin D3) 25 2,000 unit PO QAM 05/29/18 07/10/22 History mcg (1,000 unit) capsule (Vitamin D3) omega-3s 300 gv-mot-ayy-other 1 cap PO QAM 05/29/18 07/10/22 History [id number] oil 1,000 mg capsule (Horton-3 Fish Oil) blood sugar diagnostic (Blood #100 ea 10/12/20 07/05/22 Rx Glucose Test strips) cyanocobalamin (vitamin B-12) 1,000 mcg PO QAM 11/12/20 07/10/22 History 1,000 mcg tablet (Vitamin B-12) tamsulosin 0.4 mg capsule (Flomax) 0.4 mg PO QAM 11/12/20 07/10/22 History bethanechol chloride 50 mg tablet 50 mg PO BID #180 tabs 04/19/21 07/10/22 Rx Saccharomyces boulardii 250 mg 250 mg PO BID #180 caps 12/05/21 07/10/22 Rx capsule (Florastor) diaper,brief,adult,disposable #150 ea 12/07/21 07/05/22 Rx (Fitted Briefs X-Large) triamcinolone acetonide 0.05 % 1 applic topical BID #430 grams 01/18/22 07/10/22 Rx topical ointment furosemide 80 mg tablet 80 mg PO BID 03/20/22 07/10/22 History sevelamer carbonate 800 mg tablet 800 mg PO TIDM 03/20/22 07/10/22 History methocarbamol 500 mg tablet 500 mg PO TID PRN muscle spasm #90 05/03/22 07/10/22 Rx tabs calcium citrate 200 mg (950 mg) 400 mg PO QAM 05/29/22 07/10/22 History tablet loperamide 2 mg capsule 2 mg PO UD PRN Diarrhea 05/29/22 07/10/22 History ropinirole 0.5 mg tablet 0.5 mg PO UD 05/29/22 07/10/22 History estradiol 0.01% (0.1 mg/gram) 1 applic vaginal 3XWK 05/30/22 07/10/22 History vaginal cream levothyroxine 112 mcg tablet 112 mcg PO DAILYBB 05/30/22 07/10/22 History (Synthroid) tramadol 50 mg tablet 50 mg PO BID PRN Pain 05/30/22 07/10/22 History vitamin E 268 mg (400 unit) capsule 268 mg PO QAM 05/30/22 07/10/22 History famotidine 40 mg tablet 40 mg PO BID #60 tabs 06/02/22 07/10/22 Rx pantoprazole 40 mg tablet,delayed 40 mg PO BID #60 tabs 06/02/22 07/10/22 Rx release (Protonix) linagliptin 5 mg tablet (Tradjenta) 5 mg PO QAM #90 tabs 06/23/22 07/10/22 Rx octreotide acetate 50 mcg/mL 50 mcg subcut Q12H GAVE #25 mL 06/28/22 07/05/22 Rx injection solution amlodipine 5 mg tablet 5 mg PO DAILY 07/10/22 07/10/22 History nystatin 100,000 unit/gram topical 1 applic topical BID 07/10/22 07/10/22 History powder Past Med/Surg History Medical History Anemia of chronic disease Anxiety Aortic stenosis CAD (coronary artery disease) Chronic diastolic heart failure Chronic hyponatremia Diabetes mellitus, type 2 Diabetic retinopathy Essential tremor MINOR IN HAND Fatty liver First degree AV block GAVE (gastric antral vascular ectasia) GERD without esophagitis Hearing deficit no hearing aids Hemorrhoids Hiatal hernia History of CVA (cerebrovascular accident) (2019) ~3-4 years ago, woke up with weakness in her rt hand; L lacunar infarct; previously on plavix>no residual effects History of GI bleed hx 08/2021, given transfusion-per medical record REASON FOR UPCOMING PROCEDURE History of recent hospitalization GI BLEED/LOW BLOOD COUNT/HX BLOOD TRANSFUSION - MAY 2022 - [facility] History of renal dialysis [place],GRACIE AND SAT ([facility] [place]/ACROSS FROM [facility]) ACCESS SITE RIGHT SIDE OF CHEST/ ? DETAILS Hx of atrial fibrillation, no current medication per medical report Hyperlipidemia Hypertension Hypothyroidism 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 Osteoarthritis Poor historian RBBB f/u dr. aguirre Recurrent UTI HX/MUST BE OLD PROBLEM PER PT Resistant hypertension Restless legs Urinary urgency Venous insufficiency Surgical History H/O varicose vein ligation History of back surgery (04/2010) X 2 History of bladder suspension procedure X 2 History of colonoscopy History of esophagogastroduodenoscopy (EGD) History of esophagogastroduodenoscopy (EGD) multiple---last 06/19/2022 @ [facility] 04/06/22 at [facility] with Dr. Mich Pacheco- EGD- Gastric antral vascular ectasia with bleeding, treated with argon plasma coagulation (APC); Few angioectasias in the duodenum, treated with APC History of tooth extraction Hx of cardiac catheterization 08/2021, [facility] w/Dr. Moura for increased cardiac pressures; no stents S/P carpal tunnel release RT/LEFT S/P hysterectomy ANDRIA S/P knee replacement RT/LEFT S/P pericardiocentesis 08/2021, [facility], w/dr moura S/P trigger finger release Family History Father Alcohol abuse Heart disease Myocardial infarction Hypertension Sister Pancreatic cancer Diabetes Breast cancer Brother Diabetes Alcohol abuse Stroke Other Cancer No family history of adverse response to anesthesia Denies family history of Ovarian cancer Prostate cancer Colorectal cancer Social History Smoking Status: Never smoker Second Hand Exposure: No; Do You Dip or Chew Tobacco: No; Hx Alcohol Use: No Hx Substance Use: No Preferred Language: Hungarian Communication Ability: Effective Visual Impairment: No Limitations Hearing Ability: Normal Train Brakeman Required: No Beliefs That Will Affect Care: None marital status: Single Current Living Situation: Alone Current Living Situation Comment: 2 [address] current occupational status: retired How many Children do You have: 2 Other Information That Helps Us Care for You: No Feels Safe at Home: Yes Safety Concerns: Feels Safe At This Time Childhood Exposure to Second-Hand Smoke: No Diet: regular Diet Comment: regular caffeine: Yes (Coffee x 2 cups per day.) during the past year weight has: remained stable Dental Care, Regularly: No Physical Activity Frequency: Does not Exercise Seatbelt Use: always Sunscreen Use: Yes Assistive Devices: Denture - Upper, Denture - Lower, Glasses, Walker and Wheelchair Review of Systems Review of Systems: All systems reviewed & are unremarkable except as noted in HPI & below Physical Exam Constitutional: well developed and + frail appearing; + not well nourished and no acute distress Eyes: + conjunctival abnormality (pallor) Respiratory: normal respiratory effort, lungs clear to auscultation Cardiovascular: Rate/Rhythm: + bradycardic and + irregularly irregular Extremities: + pedal edema (1+ equal b/l) Gastrointestinal (Abdomen): normal bowel sounds, soft, nontender, no hepatosplenomegaly Musculoskeletal: no cyanosis or clubbing, extremities motor strength 5/5 Skin: no rashes, warm and dry Neurologic: moves all extremities and awake; not confused Psychiatric: A+Ox3, euthymic affect Results & Data Results & Data Vital Signs (Past 12 Hours) Vital Signs Temp Pulse Resp BP Pulse Ox O2 Del Method 07/10/22 12:30 45 L 16 98 07/10/22 12:30 122/44 L 07/10/22 12:00 49 L 13 97 07/10/22 12:00 133/47 L 07/10/22 11:30 44 L 16 96 07/10/22 11:30 119/44 L 07/10/22 11:00 48 L 18 96 07/10/22 11:00 116/41 L 07/10/22 10:30 45 L 16 98 07/10/22 10:30 117/47 L 07/10/22 10:11 36.6 C 51 L 18 104/51 L 97 Room Air 07/10/22 10:08 47 L Laboratory Results Abnormal lab results 07/10/22 07/10/22 07/10/22 Range/Units 10:52 10:52 10:52 WBC 3.56 L (4.8-10.8) K/ul RBC 2.19 L (4.20-5.40) M/uL Hgb 7.1 L (12.0-16.0) g/dl Hct 22.4 L (37.0-47.0) % MCV 102.3 H (80.0-100.0) fL MCHC 31.7 L (32.0-36.0) g/dL RDW Std Deviation 70.5 H (36.4-46.3) fL RDW Coeff of Irasema 18.9 H (11.5-14.5) % Plt Count 96 L (130-400) K/uL Reticulocyte % (Auto) (0.5-2.0) % Lymph # (Auto) 0.40 L (1.2-3.4) K/uL Platelet Estimate Decreased L (Normal) BUN 52 H (6-23) mg/dl Creatinine 3.64 H (0.6-1.2) mg/dl Glucose 171 H (70-99(Fasting)) mg/dl Calcium 7.7 L (8.6-10.3) mg/dl Transferrin % Sat 13 L (15-50) % Alkaline Phosphatase 263 H (34-104) U/L Troponin I High Sens 23.1 H (0-14) pg/ml Total Protein 5.0 L (6.0-8.3) gm/dl Albumin 3.1 L (3.4-5.0) gm/dl Globulin 1.9 L (2.5-4.0) gm/dl Crossmatch See Detail 07/10/22 Range/Units 11:01 WBC (4.8-10.8) K/ul RBC (4.20-5.40) M/uL Hgb (12.0-16.0) g/dl Hct (37.0-47.0) % MCV (80.0-100.0) fL MCHC (32.0-36.0) g/dL RDW Std Deviation (36.4-46.3) fL RDW Coeff of Irasema (11.5-14.5) % Plt Count (130-400) K/uL Reticulocyte % (Auto) 4.7 H (0.5-2.0) % Lymph # (Auto) (1.2-3.4) K/uL Platelet Estimate (Normal) BUN (6-23) mg/dl Creatinine (0.6-1.2) mg/dl Glucose (70-99(Fasting)) mg/dl Calcium (8.6-10.3) mg/dl Transferrin % Sat (15-50) % Alkaline Phosphatase (34-104) U/L Troponin I High Sens (0-14) pg/ml Total Protein (6.0-8.3) gm/dl Albumin (3.4-5.0) gm/dl Globulin (2.5-4.0) gm/dl Crossmatch Diagnostic Findings XR chest 1V portable CLINICAL HISTORY: Weakness TECHNIQUE: Single frontal radiograph of the chest was obtained. Comparison: Comparison is made to chest radiograph 05/11/2022 FINDINGS: A dual-lumen venous catheter is seen in the right with its tip in the cavoatrial junction. Posterior and lower thoracic spine fixation hardware is seen. Calcified aortic knob is seen. Prominence and cephalization of the vasculature is seen. Small bilateral pleural effusions are seen. IMPRESSION: Small bilateral pleural effusions, increased from prior exam. Previously noted pulmonary vascular congestion is slightly less conspicuous than in the prior exam. Medications Administered ER Medications Given: Ondansetron 4mg IV Lorazepam 0.25mg IV Pantoprazole 80mg bolus and drip ECG Rate (beats per minute): 45 Rhythm: atrial flutter Findings: no acute ischemic change Comparison ECG Date: from (May 30, 2022) Change: no significant change Code Status & VTE Plan Code Status DNR/DNI VTE Prophylaxis Plan VTE Prophylaxis will be ordered: Yes PG Care Time/CCT Total # of Minutes Spent Total Time Spent with Patient: Total time spent is greater than 50% in coordination of care (as documented) at patient's floor/unit and/or counseling patient: Coding Level of Care Code 84764 INT INP/OBS CARE MIN Diagnoses Pre-syncope R55 Acute GI bleeding K92.2 Acute blood loss anemia D62 GAVE (gastric antral vascular ectasia) K31.819 ESRD on hemodialysis N18.6; Z99.2 Hypertension I10 Aortic stenosis I35.0 Atrial fibrillation and flutter I48.91; I48.92 Diabetes mellitus, type 2 E11.9 Hypothyroidism E03.9 Restless legs G25.81
[2022-07-10 13:26] LABS: Partial Thromboplastin Ratio 0.9; Prothrombin Time 10.9 Seconds (9.0-12.0)
[2022-07-10 13:40] LABS: Ferritin 152.6 ng/ml (8-388)
[2022-07-10 13:51] LABS: Reticulocyte % 4.7 % (0.5-2.0); Reticulocytes # 0.1 10^6/uL (0.02-0.10)
[2022-07-10 13:58] LABS: Vitamin B12 > 1500 pg/ml (180-914)
--- NOTE | 2022-07-10 15:23 | Emergency Department Note ---
Impression & Plan Acute blood loss anemia, ESRD on hemodialysis, GAVE (gastric antral vascular ectasia), Acute GI bleeding ED Provider Note CHIEF COMPLAINT: Weakness HISTORY OF PRESENT ILLNESS: This 82-year-old female patient with past medical history of end-stage renal disease on hemodialysis, recurrent GI bleeding, obesity, type 2 diabetes, cirrhosis and esophageal varices, pulmonary hypertension, congestive heart failure, atrial fibrillation, hyperlipidemia, CVA, GAVE presents to the emergency department with complaints of weakness. Patient states she had dialysis yesterday and would be due again tomorrow. The patient was not able to provide much history except for the fact that she has had some loose BMs recently. Her daughter called and spoke with nursing, stating she has had some recurrent GI bleeding and follows with Dr. Pacheco of gastroenterology. She had a blood transfusion on the fifth of this month. Patient is currently denying any chest discomfort, significant shortness of breath, vomiting or gross blood in her stools. Patient states she is not able to tell, however. REVIEW OF SYSTEMS: A review of systems was performed with positives and pertinent negatives listed in the history of present illness. 10 systems were reviewed and are otherwise negative. ALLERGIES: see below MEDICATIONS: see below PMH: see below SOCIAL HISTORY: see below DDx: GI bleed, anemia, sepsis, pneumonia, viral illness, dehydration, metabolic abnormality, hypo/hyperglycemia, electrolyte disturbance, anemia, hypoxia, cardiac sources, intracerebral event, toxicologic, neurologic, as well as other pathologies. PHYSICAL EXAM: Vital signs reviewed. General: Chronically ill-appearing 82-year-old female, no significant distress HEENT: No scleral icterus, PERRLA, neck supple. Dry mucous membranes. Cardiovascular: Pulmonary: Clear to auscultation bilaterally, normal work of breathing. Abdomen: Soft, nontender, nondistended, positive bowel sounds. Musculoskeletal: Atraumatic, no peripheral edema. Neurologic: Patient awake alert and oriented Rectal: Guaiac positive melanotic stool. Normal rectal mucosa Skin: Warm, dry, no rash EMERGENCY DEPARTMENT COURSE/MDM: This patient was evaluated and appeared to be in no significant distress. IV access was obtained and laboratory work was drawn. The patient was placed on court monitor noted to be in slow atrial fibrillation. External medical records were reviewed. Patient is noted to be guaiac positive. She was placed on Protonix bolus and drip. She was typed and crossed for 2 units of PRBCs. Hemoglobin is noted to be 7.1. Vital signs did remain stable. IV Ativan and Zofran were ordered but not administered. Patient stated her nausea had resolved. Patient's case was discussed with the hospitalist service who will evaluate the patient for admission and further management. MONITORING: An order for cardiac monitoring was placed and the patient is noted to be in a slow atrial fibrillation at 48 beats per minute. RADIOLOGY: Chest x-ray to my interpretation reveals small bilateral pleural effusions, otherwise defer to radiology. EKG: To my interpretation reveals atrial fibrillation with slow ventricular re sponse at 45 bpm. Right bundle branch block with a QTc of 449. When compared to previous dated May 30, 2022 atrial fibrillation has replaced atrial flutter. DISPOSITION: Admission Past Med/Surg History Medical History Anemia of chronic disease Anxiety Aortic stenosis CAD (coronary artery disease) Chronic diastolic heart failure Chronic hyponatremia Diabetes mellitus, type 2 Diabetic retinopathy Essential tremor MINOR IN HAND Fatty liver First degree AV block GAVE (gastric antral vascular ectasia) GERD without esophagitis Hearing deficit no hearing aids Hemorrhoids Hiatal hernia History of CVA (cerebrovascular accident) (2019) ~3-4 years ago, woke up with weakness in her rt hand; L lacunar infarct; previously on plavix>no residual effects History of GI bleed hx 08/2021, given transfusion-per medical record REASON FOR UPCOMING PROCEDURE History of recent hospitalization GI BLEED/LOW BLOOD COUNT/HX BLOOD TRANSFUSION - MAY 2022 - [facility] History of renal dialysis [place]UBY,GRACIE AND SAT ([facility]/ACROSS FROM [facility]) ACCESS SITE RIGHT SIDE OF CHEST/ ? DETAILS Hx of atrial fibrillation, no current medication per medical report Hyperlipidemia Hypertension Hypothyroidism 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 Osteoarthritis Poor historian RBBB f/u dr. aguirre Recurrent UTI HX/MUST BE OLD PROBLEM PER PT Resistant hypertension Restless legs Urinary urgency Venous insufficiency Surgical History H/O varicose vein ligation History of back surgery (04/2010) X 2 History of bladder suspension procedure X 2 History of colonoscopy History of esophagogastroduodenoscopy (EGD) History of esophagogastroduodenoscopy (EGD) multiple---last 06/19/2022 @ [facility] 04/06/22 at [facility] with Dr. Mich Pacheco- EGD- Gastric antral vascular ectasia w ith bleeding, treated with argon plasma coagulation (APC); Few angioectasias in the duodenum, treated with APC History of tooth extraction Hx of cardiac catheterization 08/2021, [place] w/Dr. Moura for increased cardiac pressures; no stents S/P carpal tunnel release RT/LEFT S/P hysterectomy ANDRIA S/P knee replacement RT/LEFT S/P pericardiocentesis 08/2021, [place], w/dr moura S/P trigger finger release Family History Father Alcohol abuse Heart disease Myocardial infarction Hypertension Sister Pancreatic cancer Diabetes Breast cancer Brother Diabetes Alcohol abuse Stroke Other Cancer No family history of adverse response to anesthesia Denies family history of Ovarian cancer Prostate cancer Colorectal cancer Social History Smoking Status: Never smoker Second Hand Exposure: No; Do You Dip or Chew Tobacco: No; Hx Alcohol Use: No Hx Substance Use: No Preferred Language: Citizen Of The [place] Communication Ability: Effective Visual Impairment: No Limitations Hearing Ability: Normal Optomechanical Engineer Required: No Beliefs That Will Affect Care: None marital status: Single Current Living Situation: Alone Current Living Situation Comment: [address] current occupational status: retired How many Children do You have: 2 Other Information That Helps Us Care for You: No Feels Safe at Home: Yes Safety Concerns: Feels Safe At This Time Childhood Exposure to Second-Hand Smoke: No Diet: regular Diet Comment: regular caffeine: Yes (Coffee x 2 cups per day.) during the past year weight has: remained stable Dental Care, Regularly: No Physical Activity Frequency: Does not Exercise Seatbelt Use: always Sunscreen Use: Yes Assistive Devices: Denture - Upper, Denture - Lower, Glasses, Walker and Wheelchair Allergies Allergies Allergy/AdvReac Type Severity Reaction Status Date / Time sulfamethoxazole AdvReac Unknown REMOTE Verified 07/10/22 14:06 [From Bactrim] HX/PT NOT SURE REACTION trimethoprim [From Bactrim] AdvReac Unknown REMOTE Verified 07/10/22 14:06 HX/PT NOT SURE REACTION Home Meds Home Medications Medication Instructions Recorded Confirmed cholecalciferol (vitamin D3) 25 2,000 unit PO QAM 05/29/18 07/10/22 mcg (1,000 unit) capsule (Vitamin D3) omega-3s 300 [id number] 1 cap PO QAM 05/29/18 07/10/22 [id number] oil 1,000 mg capsule (Jameson-3 Fish Oil) cyanocobalamin (vitamin B-12) 1,000 mcg PO QAM 11/12/20 07/10/22 1,000 mcg tablet (Vitamin B-12) tamsulosin 0.4 mg capsule (Flomax) 0.4 mg PO QAM 11/12/20 07/10/22 furosemide 80 mg tablet 80 mg PO BID 03/20/22 07/10/22 sevelamer carbonate 800 mg tablet 800 mg PO TIDM 03/20/22 07/10/22 calcium citrate 200 mg (950 mg) 400 mg PO QAM 05/29/22 07/10/22 tablet loperamide 2 mg capsule 2 mg PO UD PRN Diarrhea 05/29/22 07/10/22 ropinirole 0.5 mg tablet 0.5 mg PO UD 05/29/22 07/10/22 estradiol 0.01% (0.1 mg/gram) 1 applic vaginal 3XWK 05/30/22 07/10/22 vaginal cream levothyroxine 112 mcg tablet 112 mcg PO DAILYBB 05/30/22 07/10/22 (Synthroid) tramadol 50 mg tablet 50 mg PO BID PRN Pain 05/30/22 07/10/22 vitamin E 268 mg (400 unit) capsule 268 mg PO QAM 05/30/22 07/10/22 amlodipine 5 mg tablet 5 mg PO DAILY 07/10/22 07/10/22 nystatin 100,000 unit/gram topical 1 applic topical BID 07/10/22 07/10/22 powder Previous Rx's Medication Instructions Recorded blood sugar diagnostic (Blood #100 ea 10/12/20 Glucose Test strips) bethanechol chloride 50 mg tablet 50 mg PO BID #180 tabs 04/19/21 Saccharomyces boulardii 250 mg 250 mg PO BID #180 caps 12/05/21 capsule (Florastor) diaper,brief,adult,disposable #150 ea 12/07/21 (Fitted Briefs X-Large) triamcinolone acetonide 0.05 % 1 applic topical BID #430 grams 01/18/22 topical ointment methocarbamol 500 mg tablet 500 mg PO TID PRN muscle spasm #90 05/03/22 tabs famotidine 40 mg tablet 40 mg PO BID #60 tabs 06/02/22 pantoprazole 40 mg tablet,delayed 40 mg PO BID #60 tabs 06/02/22 release (Protonix) linagliptin 5 mg tablet (Tradjenta) 5 mg PO QAM #90 tabs 06/23/22 octreotide acetate 50 mcg/mL 50 mcg subcut Q12H GAVE #25 mL 06/28/22 injection solution Results & Data (ED) Vital Signs Vital Signs - 24 hr 07/10/22 10:08 07/10/22 10:11 07/10/22 10:30 Temperature 36.6 C Temperature Source Oral Pulse Rate 47 L 51 L Pulse Rate from SpO2 Sensor Pulse Rhythm Irregular Pulse Strength Normal Respiratory Rate 18 Respiratory Effort / Characteristics Non-Labored Respiratory Depth Normal Blood Pressure 104/51 L 117/47 L Blood Pressure Mean 68 70 Pulse Oximetry 97 Oxygen Delivery Method Room Air Sepsis Recent Fever Within 48 Hours No Sepsis New/Unexplained Change in Mental Status No Sepsis Action Taken by Nursing No Action Required 07/10/22 10:30 07/10/22 11:00 07/10/22 11:00 Temperature Temperature Source Pulse Rate 45 L 48 L Pulse Rate from SpO2 Sensor 46 L 49 L Pulse Rhythm Pulse Strength Respiratory Rate 16 18 Respiratory Effort / Characteristics Respiratory Depth Blood Pressure 116/41 L Blood Pressure Mean 66 Pulse Oximetry 98 96 Oxygen Delivery Method Sepsis Recent Fever Within 48 Hours Sepsis New/Unexplained Change in Mental Status Sepsis Action Taken by Nursing 07/10/22 11:30 07/10/22 11:30 07/10/22 12:00 Temperature Temperature Source Pulse Rate 44 L Pulse Rate from SpO2 Sensor 45 L Pulse Rhythm Pulse Strength Respiratory Rate 16 Respiratory Effort / Characteristics Respiratory Depth Blood Pressure 119/44 L 133/47 L Blood Pressure Mean 69 75 Pulse Oximetry 96 Oxygen Delivery Method Sepsis Recent Fever Within 48 Hours Sepsis New/Unexplained Change in Mental Status Sepsis Action Taken by Nursing 07/10/22 12:00 07/10/22 12:30 07/10/22 12:30 Temperature Temperature Source Pulse Rate 49 L 45 L Pulse Rate from SpO2 Sensor 50 L 45 L Pulse Rhythm Pulse Strength Respiratory Rate 13 16 Respiratory Effort / Characteristics Respiratory Depth Blood Pressure 122/44 L Blood Pressure Mean 70 Pulse Oximetry 97 98 Oxygen Delivery Method Sepsis Recent Fever Within 48 Hours Sepsis New/Unexplained Change in Mental Status Sepsis Action Taken by [facility] Medications Current Medication List: was personally reviewed by me Laboratory Data Attestation: I reviewed the patient's lab results. 07/10/22 10:52 07/10/22 10:52 Lab Results 07/10/22 07/10/22 07/10/22 Range/Units 10:52 10:52 10:52 WBC 3.56 L (4.8-10.8) K/ul RBC 2.19 L (4.20-5.40) M/uL Hgb 7.1 L (12.0-16.0) g/dl Hct 22.4 L (37.0-47.0) % MCV 102.3 H (80.0-100.0) fL MCH 32.4 (25.0-34.0) pg MCHC 31.7 L (32.0-36.0) g/dL RDW Std Deviation 70.5 H (36.4-46.3) fL RDW Coeff of Irasema 18.9 H (11.5-14.5) % Plt Count 96 L (130-400) K/uL MPV 11.1 (9.4-12.4) fL Immature Gran % (Auto) 0.6 % Neut % (Auto) 82.2 % Lymph % (Auto) 11.2 % Saunders % (Auto) 4.8 % Eos % (Auto) 0.6 % Baso % (Auto) 0.6 % Reticulocyte % (Auto) (0.5-2.0) % Neut # (Auto) 2.93 (1.40-6.50) K/uL Lymph # (Auto) 0.40 L (1.2-3.4) K/uL Saunders # (Auto) 0.17 (0.11-0.59) K/uL Eos # (Auto) 0.02 (0-0.50) K/uL Baso # (Auto) 0.02 (0-0.2) K/uL Reticulocyte # (0.02-0.10) 10^6/uL Immature Gran # (Auto) 0.02 (0.01-0.20) K/uL Platelet Estimate Decreased L (Normal) RBC Morphology Unremarkable PT (9.0-12.0) Seconds INR (0.9-1.1) APTT (21.0-31.0) Seconds PTT Ratio Sodium 139 (136-145) mmol/L Potassium 4.1 (3.5-5.1) mmol/L Chloride 100 (98-107) mmol/L Carbon Dioxide 32 (21-32) mmol/L Anion Gap 7 (3-11) BUN 52 H (6-23) mg/dl Creatinine 3.64 H (0.6-1.2) mg/dl Est Cr Clr Drug Dosing 9.3 ml/min Est GFR ( Amer) 12.6 ml/min Est GFR (Non-Af Amer) 10.8 ml/min BUN/Creatinine Ratio 14.3 (10-20) Glucose 171 H (70-99(Fasting)) mg/dl Calcium 7.7 L (8.6-10.3) mg/dl Iron 39 (35-150) mcg/dl TIBC 294 (250-450) mcg/dl Unsaturated IBC 255 (155-355) mcg/dl Transferrin % Sat 13 L (15-50) % Ferritin 152.6 (8-388) ng/ml Total Bilirubin 0.3 (0.2-1.0) mg/dl AST 25 (13-39) U/L ALT 26 (7-52) U/L Alkaline Phosphatase 263 H (34-104) U/L Troponin I High Sens 23.1 H (0-14) pg/ml Total Protein 5.0 L (6.0-8.3) gm/dl Albumin 3.1 L (3.4-5.0) gm/dl Globulin 1.9 L (2.5-4.0) gm/dl Albumin/Globulin Ratio 1.6 (0.9-2) Vitamin B12 (180-914) pg/ml Folate (>5.38) ng/ml Blood Type O Positive Antibody Screen NEGATIVE Crossmatch See Detail 07/10/22 07/10/22 07/10/22 Range/Units 10:52 10:52 11:01 WBC (4.8-10.8) K/ul RBC (4.20-5.40) M/uL Hgb (12.0-16.0) g/dl Hct (37.0-47.0) % MCV (80.0-100.0) fL MCH (25.0-34.0) pg MCHC (32.0-36.0) g/dL RDW Std Deviation (36.4-46.3) fL RDW Coeff of Irasema (11.5-14.5) % Plt Count (130-400) K/uL MPV (9.4-12.4) fL Immature Gran % (Auto) % Neut % (Auto) % Lymph % (Auto) % Saunders % (Auto) % Eos % (Auto) % Baso % (Auto) % Reticulocyte % (Auto) 4.7 H (0.5-2.0) % Neut # (Auto) (1.40-6.50) K/uL Lymph # (Auto) (1.2-3.4) K/uL Saunders # (Auto) (0.11-0.59) K/uL Eos # (Auto) (0-0.50) K/uL Baso # (Auto) (0-0.2) K/uL Reticulocyte # 0.10 (0.02-0.10) 10^6/uL Immature Gran # (Auto) (0.01-0.20) K/uL Platelet Estimate (Normal) RBC Morphology PT 10.9 (9.0-12.0) Seconds INR 1.0 (0.9-1.1) APTT 24.0 (21.0-31.0) Seconds PTT Ratio 0.9 Sodium (136-145) mmol/L Potassium (3.5-5.1) mmol/L Chloride (98-107) mmol/L Carbon Dioxide (21-32) mmol/L Anion Gap (3-11) BUN (6-23) mg/dl Creatinine (0.6-1.2) mg/dl Est Cr Clr Drug Dosing ml/min Est GFR ( Amer) ml/min Est GFR (Non-Af Amer) ml/min BUN/Creatinine Ratio (10-20) Glucose (70-99(Fasting)) mg/dl Calcium (8.6-10.3) mg/dl Iron (35-150) mcg/dl TIBC (250-450) mcg/dl Unsaturated IBC (155-355) mcg/dl Transferrin % Sat (15-50) % Ferritin (8-388) ng/ml Total Bilirubin (0.2-1.0) mg/dl AST (13-39) U/L ALT (7-52) U/L Alkaline Phosphatase (34-104) U/L Troponin I High Sens (0-14) pg/ml Total Protein (6.0-8.3) gm/dl Albumin (3.4-5.0) gm/dl Globulin (2.5-4.0) gm/dl Albumin/Globulin Ratio (0.9-2) Vitamin B12 > 1500 H (180-914) pg/ml Folate > 22.30 (>5.38) ng/ml Blood Type Antibody Screen Crossmatch Administered Medications Bethanechol Chloride (Bethanechol Chl 25 Mg Tab) 50 mg PO BID [facility] Stop: 08/09/22 20:59 Last Admin: 07/10/22 20:38 Dose: 50 mg Famotidine (Famotidine 40 Mg Tablet) 40 mg PO BID [facility] Stop: 08/09/22 20:59 Last Admin: 07/10/22 20:39 Dose: 40 mg Furosemide (Furosemide 80 Mg Tab) 80 mg PO BID17 [facility] Stop: 08/09/22 16:59 Last Admin: 07/10/22 17:33 Dose: 80 mg Documented By: BHUPENDRA Pantoprazole Sodium 40 mg/ (Dextrose) 100 mls @ 20 mls/hr IV Q5H [facility] Stop: 08/09/22 11:14 Last Admin: 07/10/22 16:50 Dose: 8 mg/hr, 20 mls/hr Documented By: Infusion: 07/10/22 16:00 Dose: 0 mg/hr, 0 mls/hr Documented By: Admin: 07/10/22 11:43 Dose: 8 mg/hr, 20 mls/hr Documented By: SAMIRA Insulin Aspart (Insulin Aspart Per Unit Charge) 0 units SC ACHS [facility] Stop: 08/09/22 16:29 Last Admin: 07/10/22 17:05 Dose: Not Given Documented By: BHUPENDRA Insulin Glargine (Lantus Per Unit Charge) 0 - 5 units SQ BID [facility]; Protocol Stop: 08/09/22 20:59 Last Admin: 07/10/22 20:40 Dose: 5 units Nystatin (Nystatin Powder 15gm Btl) 1 appln EXT BID [place] Stop: 08/09/22 20:59 Last Admin: 07/10/22 20:40 Dose: 1 appln Octreotide Acetate (Octreotide Acetate 100 Mcg/Ml Vial) 50 mcg SQ BID [place] Stop: 08/09/22 20:59 Last Admin: 07/10/22 20:40 Dose: 50 mcg Ropinirole HCl (Ropinirole Hcl 0.25 Mg Tablet) 0.5 mg PO DAILY@1400 [place] Stop: 08/09/22 17:44 Last Admin: 07/10/22 17:49 Dose: Not Given Documented By: BHUPENDRA Ropinirole HCl (Ropinirole Hcl 0.25 Mg Tablet) 1.5 mg PO HS [facility] Stop: 08/09/22 20:59 Last Admin: 07/10/22 20:41 Dose: 1.5 mg Saccharomyces Boulardii (Saccharomyces Boulardii 250 Mg Cap) 250 mg PO BID [place] Stop: 08/09/22 20:59 Last Admin: 07/10/22 20:42 Dose: 250 mg Sevelamer HCl (Sevelamer Hcl 800 Mg Tablet) 800 mg PO TIDM [place] Stop: 08/09/22 16:59 Last Admin: 07/10/22 17:33 Dose: 800 mg Documented By: BHUPENDRA Discontinued Medications Pantoprazole Sodium (Protonix Bolus/Drip) 0 mls @ 1 mls/hr IV ONE STA Stop: 07/10/22 10:52 Last Admin: 07/10/22 11:44 Dose: Not Given Documented By: SAMIRA Pantoprazole Sodium 80 mg/ (Dextrose) 120 mls @ 400 mls/hr IV NOW ONE Stop: 07/10/22 11:08 Last Infusion: 07/10/22 11:43 Dose: 0 mls/hr Documented By: Admin: 07/10/22 11:26 Dose: 400 mls/hr Documented By: SAMIRA Lorazepam (Lorazepam 2 Mg/1 Ml Vial) 0.25 mg IV NOW STA Stop: 07/10/22 10:47 Last Admin: 07/10/22 11:27 Dose: Not Given Documented By: SAMIRA Ondansetron HCl (Ondansetron Inj 2 Mg/Ml 2 Ml Vial) 4 mg IV NOW STA Stop: 07/10/22 10:35 Last Admin: 07/10/22 11:26 Dose: Not Given Documented By: JMohan Imaging Data Radiologist's Impression: Chest X-Ray 07/10/22 10:34 XR chest 1V portable CLINICAL HISTORY: Weakness TECHNIQUE: Single frontal radiograph of the chest was obtained. Comparison: Comparison is made to chest radiograph 05/11/2022 FINDINGS: A dual-lumen venous catheter is seen in the right with its tip in the cavoatrial junction. Posterior and lower thoracic spine fixation hardware is seen. Calc ified aortic knob is seen. Prominence and cephalization of the vasculature is seen. Small bilateral pleural effusions are seen. IMPRESSION: Small bilateral pleural effusions, increased from prior exam. Previously noted pulmonary vascular congestion is slightly less conspicuous than in the prior exam. ACT 112: Negative or not required by law. Electronically signed by: Isacc Pak M.D. 07/10/2022 11:26 AM Discharge Plan Visit Data Chief Complaint: Weakness ED Provider: Maddie Linton Discharge Problem: Acute blood loss anemia, ESRD on hemodialysis, GAVE (gastric antral vascular ectasia), Acute GI bleeding Patient Disposition: Admitted As Inpatient Discharge Instructions Interventions: ED Discharge Assessment Last Done: 07/10/22 15:15
[2022-07-10] MEDS ORDERED: GLUCAGON FOR INJ 1 MG VIAL SQ PRN (15:39)
[2022-07-10] MEDS ORDERED: DEXTROSE 50% 50 ML SYRINGE IV PRN (15:39)
[2022-07-10] MEDS ORDERED: GLUCOSE 10 TAB/TUBE PO PRN (15:39)
[2022-07-10] MEDS ORDERED: ACETAMINOPHEN 325 MG TAB PO PRN (15:39)
[2022-07-10] MEDS ORDERED: CARBOHYDRATES FOR HYPOGLYCEMIA PO PRN (15:39)
[2022-07-10] MEDS ORDERED: GLUCOSE 40% GEL 15 GM TUBE PO PRN (15:39)
[2022-07-10] MEDS ORDERED: traMADol HCL 50 MG TABLET PO PRN (16:35)
[2022-07-10] MEDS: INSULIN ASPART PER UNIT CHARGE SC SCH ×2 (17:05→20:39)
[2022-07-10] MEDS: FUROSEMIDE 80 MG TAB PO SCH (17:33)
[2022-07-10] MEDS: SEVELAMER HCL 800 MG TABLET PO SCH (17:33)
[2022-07-10] MEDS: rOPINIRole HCL 0.25 MG TABLET PO SCH ×2 (17:49→20:41)
[2022-07-10 18:18] LABS: Appearance Urine Turbid (Clear); Bilirubin Urine Negative (Negative); Blood Urine 3+ (Negative); Color Urine Yellow; Glucose Urine UA Negative (Negative); Ketones Urine Negative (Negative); Leukocyte Esterase Urine 3+ (Negative); Nitrite Urine Negative (Negative); Protein Urine 3+ (Negative); Specific Gravity Urine 1.025 (1.000-1.030); Urobilinogen Urine Negative (Negative); pH Urine 7.5 (4.5-7.5)
[2022-07-10 18:52] LABS: Bacteria Urine 4+ (Negative); Epithelial Cell Urine 0-5 /lpf (0-5); RBC Urine >30 /hpf (0-4); WBC Urine >30 /hpf (0-5)
[2022-07-10] MEDS: BETHANECHOL CHL 25 MG TAB PO SCH (20:38)
[2022-07-10] MEDS: FAMOTIDINE 40 MG TABLET PO SCH (20:39)
[2022-07-10] MEDS: LANTUS PER UNIT CHARGE SQ SCH (20:40)
[2022-07-10] MEDS: OCTREOTIDE ACETATE 100 MCG/ML VIAL SQ SCH (20:40)
[2022-07-10] MEDS: NYSTATIN POWDER 15GM BTL EXT SCH (20:40)
[2022-07-10] MEDS: SACCHAROMYCES BOULARDII 250 MG CAP PO SCH (20:42)
[2022-07-11 01:00] LABS: Adenovirus F 40/41 PCR Not Detected (NotDetected); Astrovirus PCR Not Detected (NotDetected); Campylobacter PCR Not Detected (NotDetected); Cryptosporidium PCR Not Detected (NotDetected); Cyclospora cayetanensis PCR Not Detected (NotDetected); Entamoeba histolytica PCR Not Detected (NotDetected); Enteroaggregative E.coli(EAEC) Not Detected (NotDetected); Enteropathogenic E.coli (EPEC) Not Detected (NotDetected); Enterotoxigenic E.coli (ETEC) Not Detected (NotDetected); Giardia lamblia PCR Not Detected (NotDetected); Norovirus GI/GII PCR Not Detected (NotDetected); Plesiomonas shigelloides PCR Not Detected (NotDetected); Rotavirus A PCR Not Detected (NotDetected); Salmonella PCR Not Detected (NotDetected); Sapovirus PCR Not Detected (NotDetected); Shiga-like Toxin E.coli (STEC) Not Detected (NotDetected); Shigella/Enteroinvasive E.coli Not Detected (NotDetected); Vibrio cholerae PCR Not Detected (NotDetected); Vibrio species PCR Not Detected (NotDetected); Yersinia enterocolitica PCR Not Detected (NotDetected)
[2022-07-11 01:31] LABS: Cdiff Toxin B Gene (2yr or >) Positive Cdiff Gene (Neg)
[2022-07-11 01:36] LABS: Cdiff Antigen Positive; Cdiff Toxin A+B Negative Cdiff Toxin (Negative)
[2022-07-11 02:32] LABS: Hematocrit (blood only) 27.2 % (37.0-47.0); Hemoglobin 9.1 g/dl (12.0-16.0); Mean Corpuscular Hemoglobin 32.4 pg (25.0-34.0); Mean Corpuscular Hgb Conc 33.5 g/dL (32.0-36.0); Mean Corpuscular Volume 96.8 fL (80.0-100.0); Mean Platelet Volume 11.7 fL (9.4-12.4); Platelet Count 94 K/uL (130-400); RDW Coefficient of Variation 19.6 % (11.5-14.5); RDW Standard Deviation 68.5 fL (36.4-46.3); Red Blood Count 2.81 M/uL (4.20-5.40)
[2022-07-11] MEDS: PANTOprazole 40 MG in DEXTROSE 5% 100 ML IV SCH ×5 (02:47→23:25)
[2022-07-11] MEDS: LEVOTHYROXINE SODIUM 112 MCG TABLET PO SCH (06:23)
[2022-07-11 07:58] LABS: Basophils # (auto) 0.02 K/uL (0-0.2); Basophils % (auto) 0.5 %; Eosinophils # (auto) 0.08 K/uL (0-0.50); Eosinophils % (auto) 2.2 %; Hematocrit (blood only) 29.6 % (37.0-47.0); Hemoglobin 9.7 g/dl (12.0-16.0); Immature Granulocytes # (auto) 0.02 K/uL (0.01-0.20); Immature Granulocytes % (auto) 0.5 %; Lymphocytes # (auto) 0.59 K/uL (1.2-3.4); Lymphocytes % (auto) 16.1 %; Mean Corpuscular Hemoglobin 31.8 pg (25.0-34.0); Mean Corpuscular Hgb Conc 32.8 g/dL (32.0-36.0); Mean Platelet Volume 11.3 fL (9.4-12.4); Monocytes # (auto) 0.18 K/uL (0.11-0.59); Monocytes % (auto) 4.9 %; Neutrophils # (auto) 2.78 K/uL (1.40-6.50); Neutrophils % (auto) 75.8 %; Platelet Count 101 K/uL (130-400); RDW Coefficient of Variation 19.9 % (11.5-14.5); RDW Standard Deviation 69.4 fL (36.4-46.3); Red Blood Count 3.05 M/uL (4.20-5.40); White Blood Count 3.67 K/ul (4.8-10.8)
[2022-07-11 08:20] LABS: BUN Creatinine Ratio 14.8 (10-20); Calcium 7.6 mg/dl (8.6-10.3); Creatinine Clr Calc Pharmacy 8.9 ml/min; Est GFR (African American) 11.7 ml/min; Est GFR (Non-African American) 10.1 ml/min; Potassium 5.1 mmol/L (3.5-5.1)
[2022-07-11] MEDS: INSULIN ASPART PER UNIT CHARGE SC SCH ×4 (08:55→20:25)
[2022-07-11] MEDS: LANTUS PER UNIT CHARGE SQ SCH ×2 (08:56→21:11)
[2022-07-11] MEDS: BETHANECHOL CHL 25 MG TAB PO SCH ×2 (08:57→21:10)
[2022-07-11] MEDS: CHOLECALCIFEROL 1,000 UNITS 25 MCG TAB PO SCH (08:57)
[2022-07-11] MEDS: TAMSULOSIN HCL 0.4 MG CAP PO SCH (08:57)
[2022-07-11] MEDS: CYANOCOBALAMIN (B-12) 500 MCG TABLET PO SCH (08:57)
[2022-07-11] MEDS: SEVELAMER HCL 800 MG TABLET PO SCH ×3 (08:57→17:39)
[2022-07-11] MEDS: FUROSEMIDE 80 MG TAB PO SCH ×2 (08:57→17:38)
[2022-07-11] MEDS: FAMOTIDINE 40 MG TABLET PO SCH (08:57)
[2022-07-11] MEDS: amLODIPine BESYLATE 5 MG TAB PO SCH (08:57)
[2022-07-11] MEDS: CALCIUM CITRATE 950 MG TAB PO SCH (08:57)
[2022-07-11] MEDS: NYSTATIN POWDER 15GM BTL EXT SCH ×2 (08:58→21:12)
[2022-07-11] MEDS ORDERED: DOXAZosin MESYLATE 4 MG TAB PO SCH (09:00)
[2022-07-11] MEDS: SACCHAROMYCES BOULARDII 250 MG CAP PO SCH (09:28)
--- NOTE | 2022-07-11 09:48 | Nephrology Consultation ---
Date of Consultation July 11, 2022 Assessment & Plan (1) ESRD on hemodialysis: (2) Acute blood loss anemia: (3) Secondary hyperparathyroidism of renal origin: (4) Hemorrhoids: (5) GAVE (gastric antral vascular ectasia): (6) Hypertension: Plan ESRD, on hemodialysis via Right IJ tunneled dialysis catheter on TTS at [facility]. Has history of GI bleeding with GAVE, presented with generalized weakness and in ER hemoglobin was 7.1, receive 2 units of PRBC yesterday and hemoglobin improved to >9 this morning. Blood pressure, volume status and electrolyte acceptable. Feeling better -- tolerating HD as regular TTS schedule. --Continue on low-potassium, low phosphorus diet, continue on Renvela with meals --Dose medications for eGFR less than 10, recommend decreasing Famotidine dose to max 20 mg/d and give after HD on HD days. Will follow Thank you for allowing me to participate in your patient's care. It was a pleasure to see Sully. History of Present Illness Reason for Consultation: ESRD, admitted with blood loss anemia, weakness. Attending Physician: Davian Renteria MD History of Present Illness Mrs. Sully Faria is a 82 year-old female with ESRD on HD, chronic GI bleeding with h/o GAVE, admitted to the hospital with anemia. Nephrology consult was re quested to provide hemodialysis. EMR records were reviewed in detail in patient's visit. Sully presented to the ED yesterday with generalized weakness and feeling poorly. She did not notice any significant shortness of breath or chest pain,bright red per rectum over last few days although has been having diarrhea. Her hemoglobin was 7.1 on admission , s/p 2 PRBC and Hb improved to >9 this morning. Also started on IV protonix drip. She was otherwise hemodynamically stable. She was evaluated by GI this morning and plan for push enteroscopy tomorrow. Received 2 units of PRBC with improvement in hemoglobin to 8.7 this morning. she was admitted to hospital 2 weeks ago with significant blood loss anemia requiring blood transfusion and discharged after hemoglobin improved was 9.0 on 05/13/22. She has known history of GAVE causing significant blood loss anemia requiring frequent hospitalization, EGD, GAVE treated with APC and plan to have next EGD on 07/17/22. She was started on Carafate recently but had to stop 2 days ago as Aluminum level was high. On Famotidine 40 bid. Still waiting on getting Octreotide. She has known internal hemorrhoids noted on colonoscopy on 05/12/22. ESRD secondary to hypertension, DKD, and renovascular disease started on hemodialysis during hospitalization at [facility] in August 2021, on TTS HD at [facility] via [facility], refused AVF. IDWG typically low and she continues to make a good amount of urine. Medical history is also notable for non-obstructive coronary artery disease, HFpEF, severe aortic stenosis, atrial fibrillation, chronic anemia with GIB, imaging evidence of cirrhosis, NAFLD, hypertension, diabetes mellitus type II, neurogenic bladder, OA/DJD, and hypothyroidism. She has been feeling better since denies any other symptoms but extremely frustrated with the need for frequent hospitalization, EGD and transfusion. Allergies Allergy/AdvReac Type Severity Reaction Status Date / Time sulfamethoxazole AdvReac Unknown REMOTE Verified 07/10/22 14:06 [From Bactrim] HX/PT NOT SURE REACTION trimethoprim [From Bactrim] AdvReac Unknown REMOTE Verified 07/10/22 14:06 HX/PT NOT SURE REACTION Home Medications Medication Instructions Recorded Confirmed Type cholecalciferol (vitamin D3) 25 2,000 unit PO QAM 05/29/18 07/10/22 History mcg (1,000 unit) capsule (Vitamin D3) omega-3s 300 en-esc-vln-other 1 cap PO QAM 05/29/18 07/10/22 History [id number] oil 1,000 mg capsule ([place]-3 Fish Oil) blood sugar diagnostic (Blood #100 ea 10/12/20 07/05/22 Rx Glucose Test strips) cyanocobalamin (vitamin B-12) 1,000 mcg PO QAM 11/12/20 07/10/22 History 1,000 mcg tablet (Vitamin B-12) tamsulosin 0.4 mg capsule (Flomax) 0.4 mg PO QAM 11/12/20 07/10/22 History bethanechol chloride 50 mg tablet 50 mg PO BID #180 tabs 04/19/21 07/10/22 Rx Saccharomyces boulardii 250 mg 250 mg PO BID #180 caps 12/05/21 07/10/22 Rx capsule (Florastor) diaper,brief,adult,disposable #150 ea 12/07/21 07/05/22 Rx (Fitted Briefs X-Large) triamcinolone acetonide 0.05 % 1 applic topical BID #430 grams 01/18/22 07/10/22 Rx topical ointment furosemide 80 mg tablet 80 mg PO BID 03/20/22 07/10/22 History sevelamer carbonate 800 mg tablet 800 mg PO TIDM 03/20/22 07/10/22 History methocarbamol 500 mg tablet 500 mg PO TID PRN muscle spasm #90 05/03/22 07/10/22 Rx tabs calcium citrate 200 mg (950 mg) 400 mg PO QAM 05/29/22 07/10/22 History tablet loperamide 2 mg capsule 2 mg PO UD PRN Diarrhea 05/29/22 07/10/22 History ropinirole 0.5 mg tablet 0.5 mg PO UD 05/29/22 07/10/22 History estradiol 0.01% (0.1 mg/gram) 1 applic vaginal 3XWK 05/30/22 07/10/22 History vaginal cream levothyroxine 112 mcg tablet 112 mcg PO DAILYBB 05/30/22 07/10/22 History (Synthroid) tramadol 50 mg tablet 50 mg PO BID PRN Pain 05/30/22 07/10/22 History vitamin E 268 mg (400 unit) capsule 268 mg PO QAM 05/30/22 07/10/22 History famotidine 40 mg tablet 40 mg PO BID #60 tabs 06/02/22 07/10/22 Rx pantoprazole 40 mg tablet,delayed 40 mg PO BID #60 tabs 06/02/22 07/10/22 Rx release (Protonix) linagliptin 5 mg tablet (Tradjenta) 5 mg PO QAM #90 tabs 06/23/22 07/10/22 Rx octreotide acetate 50 mcg/mL 50 mcg subcut Q12H GAVE #25 mL 06/28/22 07/05/22 Rx injection solution amlodipine 5 mg tablet 5 mg PO DAILY 07/10/22 07/10/22 History nystatin 100,000 unit/gram topical 1 applic topical BID 07/10/22 07/10/22 History powder Patient History Medical History Anemia of chronic disease Anxiety Aortic stenosis CAD (coronary artery disease) Chronic diastolic heart failure Chronic hyponatremia Diabetes mellitus, type 2 Diabetic retinopathy Essential tremor MINOR IN HAND Fatty liver First degree AV block GAVE (gastric antral vascular ectasia) GERD without esophagitis Hearing deficit no hearing aids Hemorrhoids Hiatal hernia History of CVA (cerebrovascular accident) (2019) ~3-4 years ago, woke up with weakness in her rt hand; L lacunar infarct; previously on plavix>no residual effects History of GI bleed hx 08/2021, given transfusion-per medical record REASON FOR UPCOMING PROCEDURE History of recent hospitalization GI BLEED/LOW BLOOD COUNT/HX BLOOD TRANSFUSION - MAY 2022 - [facility] History of renal dialysis TUES,THUR AND SAT ([facility] [place]/ACROSS FROM [facility]) ACCESS SITE RIGHT SIDE OF CHEST/ ? DETAILS Hx of atrial fibrillation, no current medication per medical report Hyperlipidemia Hypertension Hypothyroidism 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 Osteoarthritis Poor historian RBBB f/u dr. aguirre Recurrent UTI HX/MUST BE OLD PROBLEM PER PT Resistant hypertension Restless legs Urinary urgency Venous insufficiency Surgical History H/O varicose vein ligation History of back surgery (04/2010) X 2 History of bladder suspension procedure X 2 History of colonoscopy History of esophagogastroduodenoscopy (EGD) History of esophagogastroduodenoscopy (EGD) multiple---last 06/19/2022 @ [facility] 04/06/22 at [facility] with Dr. Mich Pacheco- EGD- Gastric antral vascular ectasia with bleeding, treated with argon plasma coagulation (APC); Few angioectasias in the duodenum, treated with APC History of tooth extraction Hx of cardiac catheterization 08/2021, [facility] w/Dr. Moura for increased cardiac pressures; no stents S/P carpal tunnel release RT/LEFT S/P hysterectomy ANDRIA S/P knee replacement RT/LEFT S/P pericardiocentesis 08/2021, [facility], w/dr moura S/P trigger finger release Family History Father Alcohol abuse Heart disease Myocardial infarction Hypertension Sister Pancreatic cancer Diabetes Breast cancer Brother Diabetes Alcohol abuse Stroke Other Cancer No family history of adverse response to anesthesia Denies family history of Ovarian cancer Prostate cancer Colorectal cancer Social History Smoking Status: Never smoker Second Hand Exposure: No; Do You Dip or Chew Tobacco: No; Hx Alcohol Use: No Hx Substance Use: No Preferred Language: Ukrainian Communication Ability: Effective Visual Impairment: No Limitations Hearing Ability: Normal Import/Export Specialist Required: No Beliefs That Will Affect Care: None marital status: Single Current Living Situation: Alone Current Living Situation Comment: 2 [address]S current occupational status: retired How many Children do You have: 2 Other Information That Helps Us Care for You: No Feels Safe at Home: Yes Safety Concerns: Feels Safe At This Time Childhood Exposure to Second-Hand Smoke: No Diet: regular Diet Comment: regular caffeine: Yes (Coffee x 2 cups per day.) during the past year weight has: remained stable Dental Care, Regularly: No Physical Activity Frequency: Does not Exercise Seatbelt Use: always Sunscreen Use: Yes Assistive Devices: Denture - Upper, Denture - Lower, Glasses, Walker and Wheelchair Review of Systems Review of Systems: Detailed ROS was otherwise unremarkable. Physical Exam Constitutional: WD/WN, vitals as above no acute distress Eyes: + anicteric sclerae Neck: normal visual inspection Respiratory: no respiratory distress Auscultation: lungs clear to auscultation bilaterally Cardiovascular: RRR, no murmur, no edema Gastrointestinal (Abdomen): Inspection/Auscultation: abdomen normal to inspection and normal bowel sounds Percussion/Palpation: abdomen soft; abdomen nontender, no guarding and abdomen not rigid Musculoskeletal: Extremities: extremities normal to inspection Skin: no rashes, warm and dry Neurologic: no focal motor deficits and not confused Psychiatric: Orientation: alert and oriented x 3 Affect: euthymic affect Results & Data Vital Signs (Past 12 Hours) Vital Signs Temp Pulse Pulse Resp BP BP Pulse Ox 07/11/22 07:27 36.3 C L 46 L 16 143/48 H 97 07/11/22 07:14 39 L 07/11/22 03:00 36.4 C L 76 18 119/39 L 95 07/11/22 00:22 36.5 C 45 L 16 130/44 L 97 07/10/22 23:29 43 L 07/10/22 22:54 36.5 C 51 L 18 127/58 L 96 07/10/22 22:25 36.7 C 44 L 18 114/42 L 92 07/10/22 21:55 36.5 C 43 L 18 127/63 96 O2 Del Method 07/11/22 07:27 Room Air 07/11/22 07:14 07/11/22 03:00 Room Air 07/11/22 00:22 07/10/22 23:29 07/10/22 22:54 07/10/22 22:25 07/10/22 21:55 PG Care Time/CCT Total # of Minutes Spent Total Time Spent with Patient: Total time spent is greater than 50% in coordination of care (as documented) at patient's floor/unit and/or counseling patient: Coding Level of Care Code 33948 INT INP/OBS CARE 3/75MIN Diagnoses ESRD on hemodialysis N18.6; Z99.2 Acute blood loss anemia D62 Secondary hyperparathyroidism of renal origin N25.81 Hemorrhoids K64.9 GAVE (gastric antral vascular ectasia) K31.819 Hypertension I10
[2022-07-11] MEDS: OCTREOTIDE ACETATE 100 MCG/ML VIAL SQ SCH ×2 (13:24→21:17)
[2022-07-11] MEDS: ADVANCED PROBIOTIC 1250 MG CAPSULE PO SCH (13:24)
[2022-07-11] MEDS: rOPINIRole HCL 0.25 MG TABLET PO SCH ×2 (13:25→21:13)
--- NOTE | 2022-07-11 13:58 | Hospitalist Progress Note ---
Date of Service July 11, 2022 Assessment & Plan (1) Acute GI bleeding: Plan: Known history of GAVE with frequent APC - likely source of recurrent bleeding. Is on a schedule of every [address] Pacheco, [facility]. s/p 2 units PRBCs overnight with improved H/H this am. Repeat H/H ordered for this afternoon. Cont PPI drip for now. Lower famotidine dose to 20mg/day as advised by nephrology. Continue octreotide 50mcg SQ BID. Will need to check if this is being secured for her as an outpatient. Would benefit from IV Venofer while here. If H/H cont to drop then obtain formal GI consult (admitting physician spoke informally with GI yesterday). (2) UTI (urinary tract infection): Plan: Symptomatic. U/a suspicious for UTI. Unfortunately urine cx was contaminated. Will obtain I/O specimen for repeat urine cx then start abx. Has h/o pseudomonas - will start cefepime after repeat urine is collected. Likely contributing to cold chills, poor appetite, etc. (3) Acute blood loss anemia: Plan: 2nd to #1. s/p 2 units packed RBCs since admission. H/H stable this am. Repeat H/H this afternoon. (4) Pre-syncope: Plan: Likely #1 with resulting #3 caused such. UTI, aortic stenosis, etc also likely contributors. (5) GAVE (gastric antral vascular ectasia): Plan: known dx s/p APC treatments by Dr Pacheco - last Rx about 10 days ago. Is on an every other week schedule for EGDs. Tx as needed. PPI H2 andrae Octreotide (6) ESRD on hemodialysis: Plan: Appreciate nephrology consultation and assistance with HD needs s/p HD today w/o incident (7) Hypertension: Plan: Continue amlodipine and furosemide. Alpha andrae (flomax) continued. (8) Aortic stenosis: Plan: Moderate-severe on echo 01/2022 (9) Atrial fibrillation and flutter: Plan: has been bradycardic since 2021 based on records she is not on AV jolie agents will need to ambulate her to see if she has appropriate chronotropic response to activity if none then cardiology consultation anticoagulation contraindicated in setting of ongoing upper GI bleed (10) Diabetes mellitus, type 2: Plan: cont basal-bolus insulin with "sliding scale" parameters in place for lantus (11) Hypothyroidism: Plan: TSH today is 4; previous was 4; will increase synthroid to 125mcg daily to target her TSH to about 2 (12) Restless legs: Plan: Continue ropinirole Low Fe will exacerbate this issue (13) Pancytopenia: Plan: has been present since 2021 all cell lines have been trending down with slowly rising MCV B12/folate wnl peripheral smear ordered -- no suspicious features seen consider outpatient heme/onc referral for this smoldering MDS? 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: Plan: c diff gene + but toxin -- stool was formed today per staff will defer on Rx for now Plan VTE Prophylaxis - chemical means contraindicated due to #1 above Diet - clear liquids only due to #1 Admission and Anticipated Discharge Date Admission Date: July 10, 2022 Subjective patient sitting in chair by window just returned from dialysis - 2 L UF removed poor appetite at lunch but did eat breakfast (clear liquids) denies nausea or vomiting denies abd pain has had foul-smelling urine last couple of days some dysuria as well she voids about 2-3 times each day despite being on HD no dyspnea no chest pain really wants to go home today lives alone in [place] did have diarrhea a few days ago but staff report the stool today was formed Review of Systems Review of Systems: gen - c/o cold chills cv - no chest pain; tele overnight - a.fib, rates all <60 pulm - no dyspnea or cough GI - no vomiting Physical Exam Physical Exam: gen - NAD but looks weak, frail, sitting in chair neck - no JVD mouth - MMM heart - irregular, triston, s1 s2, 2/6 holosystolic murmur RUSB; separate systolic murmur LLSB 2/6 lungs - CTA b/l abd - soft NT ND BS+ ext - no edema, pulses 2+ b/l psych - a/o x 3 chest - permcath right upper chest clean skin - pallor Results & Data Results & Data Vital Signs (Past 12 Hours) Vital Signs Temp Pulse Pulse Pulse Resp BP BP 07/11/22 13:19 36.4 C L 46 L 16 171/61 H 07/11/22 13:00 36.5 C 53 L 151/58 H 07/11/22 12:30 69 151/53 H 07/11/22 12:00 68 130/65 07/11/22 11:30 62 154/56 H 07/11/22 11:00 51 L 147/48 H 07/11/22 10:30 46 L 81/64 L 07/11/22 10:00 53 L 150/60 H 07/11/22 09:30 52 L 161/80 H 07/11/22 09:16 36.6 C 49 L 07/11/22 07:27 36.3 C L 46 L 16 143/48 H 07/11/22 07:14 39 L 07/11/22 03:00 36.4 C L 76 18 119/39 L Pulse Ox O2 Del Method 07/11/22 13:19 98 Room Air 07/11/22 13:00 07/11/22 12:30 07/11/22 12:00 07/11/22 11:30 07/11/22 11:00 07/11/22 10:30 07/11/22 10:00 07/11/22 09:30 07/11/22 09:16 07/11/22 07:27 97 Room Air 07/11/22 07:14 07/11/22 03:00 95 Room Air Laboratory Results Laboratory Results - last 24 hr 07/10/22 07/10/22 07/10/22 10:52 10:52 16:42 WBC RBC Hgb Hct MCV MCH MCHC RDW Std Deviation RDW Coeff of Irasema Plt Count MPV Immature Gran % (Auto) Neut % (Auto) Lymph % (Auto) [place] % (Auto) Eos % (Auto) Baso % (Auto) Neut # (Auto) Lymph # (Auto) [place] # (Auto) Eos # (Auto) Baso # (Auto) Immature Gran # (Auto) Peripher Smr Path Cons Sodium Potassium Chloride Carbon Dioxide Anion Gap BUN Creatinine Est Cr Clr Drug Dosing Est GFR ( Amer) Est GFR (Non-Af Amer) BUN/Creatinine Ratio Glucose POC Glucose 145 H Calcium Vitamin B12 > 1500 H Folate > 22.30 TSH Urine Color Urine Appearance Urine pH Ur Specific [place] Urine Protein Urine Glucose (UA) Urine Ketones Urine Blood Urine Nitrite Urine Bilirubin Urine Urobilinogen Ur Leukocyte Esterase Urine RBC Urine WBC Ur Epithelial Cells Urine Bacteria Nasal Screen MRSA (PCR) Stl C. cayetanensis PCR Stool Rotavirus A PCR Stl Adenov F 40/41 PCR Stool Astrovirus (PCR) Stool Campylobacter PCR Stl C. diff Tox B Gene Stl C.difficile Tox A&B Stool Cryptosporidium PCR Stl E.coli Shiga Tox PCR Stl Enterotoxigenic E PCR Stool EPEC (PCR) Stool EAEC (PCR) Stl E. histolytica PCR Stool Giardia Lamblia PCR Stool Salmonella PCR Stool Sapovirus (PCR) Stl P. shigelloides PCR Stl Shigella/EIEC PCR St Y.enterocolitica PCR Stool Vibrio (PCR) Stl Vibrio cholerae PCR Stl Norovirus GI/GII PCR Blood Type O Positive Antibody Screen NEGATIVE Crossmatch See Detail 07/10/22 07/10/22 07/10/22 18:12 20:09 23:15 WBC RBC Hgb Hct MCV MCH MCHC RDW Std Deviation RDW Coeff of Irasema Plt Count MPV Immature Gran % (Auto) Neut % (Auto) Lymph % (Auto) [place] % (Auto) Eos % (Auto) Baso % (Auto) Neut # (Auto) Lymph # (Auto) [place] # (Auto) Eos # (Auto) Baso # (Auto) Immature Gran # (Auto) Peripher Smr Path Cons Sodium Potassium Chloride Carbon Dioxide Anion Gap BUN Creatinine Est Cr Clr Drug Dosing Est GFR ( Amer) Est GFR (Non-Af Amer) BUN/Creatinine Ratio Glucose POC Glucose 153 H Calcium Vitamin B12 Folate TSH Urine Color Yellow Urine Appearance Turbid A Urine pH 7.5 Ur Specific [place] 1.025 Urine Protein 3+ H Urine Glucose (UA) Negative Urine Ketones Negative Urine Blood 3+ H Urine Nitrite Negative Urine Bilirubin Negative Urine Urobilinogen Negative Ur Leukocyte Esterase 3+ H Urine RBC >30 H Urine WBC >30 H Ur Epithelial Cells 0-5 Urine Bacteria 4+ H Nasal Screen MRSA (PCR) Stl C. cayetanensis PCR Stool Rotavirus A PCR Stl Adenov F PCR Stool Astrovirus (PCR) Stool Campylobacter PCR Stl C. diff Tox B Gene Positive Cdiff Gene H Stl C.difficile Tox A&B Negative Cdiff Toxin Stool Cryptosporidium PCR Stl E.coli Shiga Tox PCR Stl Enterotoxigenic E PCR Stool EPEC (PCR) Stool EAEC (PCR) Stl E. histolytica PCR Stool Giardia Lamblia PCR Stool Salmonella PCR Stool Sapovirus (PCR) Stl P. shigelloides PCR Stl Shigella/EIEC PCR St Y.enterocolitica PCR Stool Vibrio (PCR) Stl Vibrio cholerae PCR Stl Norovirus GI/GII PCR Blood Type Antibody Screen Crossmatch 07/10/22 07/10/22 07/11/22 23:15 Unknown 01:26 WBC 3.60 L RBC 2.81 L Hgb 9.1 L Hct 27.2 L MCV 96.8 D MCH 32.4 MCHC 33.5 RDW Std Deviation 68.5 H RDW Coeff of Irasema 19.6 H Plt Count 94 L MPV 11.7 Immature Gran % (Auto) Neut % (Auto) Lymph % (Auto) [place] % (Auto) Eos % (Auto) Baso % (Auto) Neut # (Auto) Lymph # (Auto) [place] # (Auto) Eos # (Auto) Baso # (Auto) Immature Gran # (Auto) Peripher Smr Path Cons Sodium Potassium Chloride Carbon Dioxide Anion Gap BUN Creatinine Est Cr Clr Drug Dosing Est GFR ( Amer) Est GFR (Non-Af Amer) BUN/Creatinine Ratio Glucose POC Glucose Calcium Vitamin B12 Folate TSH Urine Color Urine Appearance Urine pH Ur Specific [place] Urine Protein Urine Glucose (UA) Urine Ketones Urine Blood Urine Nitrite Urine Bilirubin Urine Urobilinogen Ur Leukocyte Esterase Urine RBC Urine WBC Ur Epithelial Cells Urine Bacteria Nasal Screen MRSA (PCR) Negative Stl C. cayetanensis PCR Not Detected Stool Rotavirus A PCR Not Detected Stl Adenov F 40/41 PCR Not Detected Stool Astrovirus (PCR) Not Detected Stool Campylobacter PCR Not Detected Stl C. diff Tox B Gene Stl C.difficile Tox A&B Stool Cryptosporidium PCR Not Detected Stl E.coli Shiga Tox PCR Not Detected Stl Enterotoxigenic E PCR Not Detected Stool EPEC (PCR) Not Detected Stool EAEC (PCR) Not Detected Stl E. histolytica PCR Not Detected Stool Giardia Lamblia PCR Not Detected Stool Salmonella PCR Not Detected Stool Sapovirus (PCR) Not Detected Stl P. shigelloides PCR Not Detected Stl Shigella/EIEC PCR Not Detected St Y.enterocolitica PCR Not Detected Stool Vibrio (PCR) Not Detected Stl Vibrio cholerae PCR Not Detected Stl Norovirus GI/GII PCR Not Detected Blood Type Antibody Screen Crossmatch 07/11/22 07/11/22 07/11/22 07:30 07:32 07:32 WBC 3.67 L RBC 3.05 L Hgb 9.7 L Hct 29.6 L MCV 97.0 MCH 31.8 MCHC 32.8 RDW Std Deviation 69.4 H RDW Coeff of Irasema 19.9 H Plt Count 101 L MPV 11.3 Immature Gran % (Auto) 0.5 Neut % (Auto) 75.8 Lymph % (Auto) 16.1 [place] % (Auto) 4.9 Eos % (Auto) 2.2 Baso % (Auto) 0.5 Neut # (Auto) 2.78 Lymph # (Auto) 0.59 L [place] # (Auto) 0.18 Eos # (Auto) 0.08 Baso # (Auto) 0.02 Immature Gran # (Auto) 0.02 Peripher Smr Path Cons Sodium 137 Potassium 5.1 D Chloride 100 Carbon Dioxide 30 Anion Gap 7 BUN 57 H Creatinine 3.85 H Est Cr Clr Drug Dosing 8.9 Est GFR ( Amer) 11.7 Est GFR (Non-Af Amer) 10.1 BUN/Creatinine Ratio 14.8 Glucose 90 POC Glucose 102 H Calcium 7.6 L Vitamin B12 Folate TSH Urine Color Urine Appearance Urine pH Ur Specific [place] Urine Protein Urine Glucose (UA) Urine Ketones Urine Blood Urine Nitrite Urine Bilirubin Urine Urobilinogen Ur Leukocyte Esterase Urine RBC Urine WBC Ur Epithelial Cells Urine Bacteria Nasal Screen MRSA (PCR) Stl C. cayetanensis PCR Stool Rotavirus A PCR Stl Adenov F 40/41 PCR Stool Astrovirus (PCR) Stool Campylobacter PCR Stl C. diff Tox B Gene Stl C.difficile Tox A&B Stool Cryptosporidium PCR Stl E.coli Shiga Tox PCR Stl Enterotoxigenic E PCR Stool EPEC (PCR) Stool EAEC (PCR) Stl E. histolytica PCR Stool Giardia Lamblia PCR Stool Salmonella PCR Stool Sapovirus (PCR) Stl P. shigelloides PCR Stl Shigella/EIEC PCR St Y.enterocolitica PCR Stool Vibrio (PCR) Stl Vibrio cholerae PCR Stl Norovirus GI/GII PCR Blood Type Antibody Screen Crossmatch 07/11/22 07/11/22 07/11/22 07:32 07:32 13:18 WBC RBC Hgb Hct MCV MCH MCHC RDW Std Deviation RDW Coeff of Irasema Plt Count MPV Immature Gran % (Auto) Neut % (Auto) Lymph % (Auto) [place] % (Auto) Eos % (Auto) Baso % (Auto) Neut # (Auto) Lymph # (Auto) [place] # (Auto) Eos # (Auto) Baso # (Auto) Immature Gran # (Auto) Peripher Smr Path Cons Cancelled Sodium Potassium Chloride Carbon Dioxide Anion Gap BUN Creatinine Est Cr Clr Drug Dosing Est GFR ( Amer) Est GFR (Non-Af Amer) BUN/Creatinine Ratio Glucose POC Glucose 103 H Calcium Vitamin B12 Folate TSH 4.154 Urine Color Urine Appearance Urine pH Ur Specific [place] Urine Protein Urine Glucose (UA) Urine Ketones Urine Blood Urine Nitrite Urine Bilirubin Urine Urobilinogen Ur Leukocyte Esterase Urine RBC Urine WBC Ur Epithelial Cells Urine Bacteria Nasal Screen MRSA (PCR) Stl C. cayetanensis PCR Stool Rotavirus A PCR Stl Adenov F 40/41 PCR Stool Astrovirus (PCR) Stool Campylobacter PCR Stl C. diff Tox B Gene Stl C.difficile Tox A&B Stool Cryptosporidium PCR Stl E.coli Shiga Tox PCR Stl Enterotoxigenic E PCR Stool EPEC (PCR) Stool EAEC (PCR) Stl E. histolytica PCR Stool Giardia Lamblia PCR Stool Salmonella PCR Stool Sapovirus (PCR) Stl P. shigelloides PCR Stl Shigella/EIEC PCR St Y.enterocolitica PCR Stool Vibrio (PCR) Stl Vibrio cholerae PCR Stl Norovirus GI/GII PCR Blood Type Antibody Screen Crossmatch PG Care Time/CCT Total # of Minutes Spent Total Time Spent with Patient: Total time spent is greater than 50% in coordination of care (as documented) at patient's floor/unit and/or counseling patient: Coding Level of Care Code 73634 SUB INP/OBS CARE 3/50MIN Diagnoses Acute GI bleeding K92.2 UTI (urinary tract infection) N39.0 Acute blood loss anemia D62 Pre-syncope R55 GAVE (gastric antral vascular ectasia) K31.819 ESRD on hemodialysis N18.6; Z99.2 Hypertension I10 Aortic stenosis I35.0 Atrial fibrillation and flutter I48.91; I48.92 Diabetes mellitus, type 2 E11.9 Hypothyroidism E03.9 Restless legs G25.81 Pancytopenia D61.818 Clostridioides difficile carrier Z22.1
[2022-07-11 15:17] LABS: Hematocrit (blood only) 33.6 % (37.0-47.0); Hemoglobin 11.2 g/dl (12.0-16.0)
[2022-07-11] MEDS ORDERED: CEFEPIME 1,000 MG in SYRINGE 0 ML IV ONE (16:30)
[2022-07-12] MEDS: PANTOprazole 40 MG in DEXTROSE 5% 100 ML IV SCH ×3 (03:48→16:56)
--- NOTE | 2022-07-12 04:59 | Electrocardiogram Report ---
Test Reason : Blood Pressure : / mmHG Vent. Rate : 045 BPM Atrial Rate : 000 BPM P-R Int : 000 ms QRS Dur : 130 ms QT Int : 520 ms P-R-T Axes : 000 -09 029 degrees QTc Int : 449 ms Atrial fibrillation with slow ventricular response Right bundle branch block Abnormal ECG When compared with ECG of 30-MAY-2022 17:53, Atrial fibrillation has replaced Atrial flutter Confirmed by Delvin Sullivan ([id number]) on 07/12/2022 4:58:42 AM Referred By: REFERRED SELF Confirmed By:Delvin Sullivan
[2022-07-12] MEDS: LEVOTHYROXINE SODIUM 112 MCG TABLET PO SCH (05:36)
[2022-07-12] MEDS: LANTUS PER UNIT CHARGE SQ SCH ×2 (08:21→21:46)
[2022-07-12] MEDS: INSULIN ASPART PER UNIT CHARGE SC SCH ×4 (08:56→21:45)
[2022-07-12] MEDS: BETHANECHOL CHL 25 MG TAB PO SCH ×2 (08:57→21:54)
[2022-07-12] MEDS: NYSTATIN POWDER 15GM BTL EXT SCH ×2 (08:57→21:51)
[2022-07-12] MEDS: ADVANCED PROBIOTIC 1250 MG CAPSULE PO SCH (08:57)
[2022-07-12] MEDS: amLODIPine BESYLATE 5 MG TAB PO SCH (08:57)
[2022-07-12] MEDS: SEVELAMER HCL 800 MG TABLET PO SCH ×3 (08:58→17:20)
[2022-07-12] MEDS: CHOLECALCIFEROL 1,000 UNITS 25 MCG TAB PO SCH (08:58)
[2022-07-12] MEDS: FUROSEMIDE 80 MG TAB PO SCH ×2 (08:58→17:20)
[2022-07-12] MEDS: CALCIUM CITRATE 950 MG TAB PO SCH (08:58)
[2022-07-12] MEDS: TAMSULOSIN HCL 0.4 MG CAP PO SCH (08:58)
[2022-07-12] MEDS: FAMOTIDINE 20 MG TAB PO SCH (08:58)
[2022-07-12] MEDS: CYANOCOBALAMIN (B-12) 500 MCG TABLET PO SCH (08:58)
[2022-07-12] MEDS: OCTREOTIDE ACETATE 100 MCG/ML VIAL SQ SCH ×2 (09:06→22:01)
[2022-07-12 09:15] LABS: Basophils # (auto) 0.04 K/uL (0-0.2); Basophils % (auto) 0.6 %; Eosinophils # (auto) 0.07 K/uL (0-0.50); Hematocrit (blood only) 31.4 % (37.0-47.0); Hemoglobin 10.3 g/dl (12.0-16.0); Immature Granulocytes # (auto) 0.04 K/uL (0.01-0.20); Immature Granulocytes % (auto) 0.6 %; Lymphocytes # (auto) 0.49 K/uL (1.2-3.4); Lymphocytes % (auto) 6.8 %; Mean Corpuscular Hemoglobin 32.2 pg (25.0-34.0); Mean Corpuscular Hgb Conc 32.8 g/dL (32.0-36.0); Mean Corpuscular Volume 98.1 fL (80.0-100.0); Mean Platelet Volume 11.2 fL (9.4-12.4); Monocytes # (auto) 0.34 K/uL (0.11-0.59); Monocytes % (auto) 4.7 %; Neutrophils # (auto) 6.22 K/uL (1.40-6.50); Neutrophils % (auto) 86.3 %; Platelet Count 115 K/uL (130-400); RDW Coefficient of Variation 19.3 % (11.5-14.5)
[2022-07-12 10:04] LABS: Calcium 7.4 mg/dl (8.6-10.3); Potassium 4.4 mmol/L (3.5-5.1)
[2022-07-12 10:11] LABS: BUN Creatinine Ratio 11.1 (10-20); Creatinine Clr Calc Pharmacy 10.5 ml/min; Est GFR (African American) 14.4 ml/min; Est GFR (Non-African American) 12.4 ml/min
--- NOTE | 2022-07-12 10:24 | Nephrology Progress Note ---
Date of Service July 12, 2022 Assessment & Plan (1) ESRD on hemodialysis: (2) Acute blood loss anemia: (3) Secondary hyperparathyroidism of renal origin: (4) Hemorrhoids: (5) GAVE (gastric antral vascular ectasia): (6) Hypertension: Plan ESRD, on hemodialysis via Right IJ tunneled dialysis catheter on TTS at [facility]. Has history of GI bleeding with GAVE, presented with generalized weakness and in ER hemoglobin was 7.1, receive 2 units of PRBC and hemoglobin improved to 11.2 this morning. Blood pressure, volume status and electrolyte acceptable. Feeling better. Hb stable, 11.2. Plan for EGD next Sunday. -- had HD yesterday, doing well, BP , volume status acceptable. Continue on IHD TTS schedule. --Continue on low-potassium, low phosphorus diet, continue on Renvela with meals --Dose medications for eGFR less than 10, recommend decreasing Famotidine dose to max 20 mg/d and give after HD on HD days. Will follow Admission and Anticipated Discharge Date Admission Date: July 11, 2022 Kathryn Virk was sen and evaluated this morning. Doing well, no dysuria, F/C. SOB,CP. Hb 11.2. BP fair. Review of Systems Review of Systems: Detailed ROS was otherwise unremarkable. Physical Exam Constitutional: WD/WN, vitals as above no acute distress Eyes: + anicteric sclerae Neck: Rt IJ TDC Respiratory: no respiratory distress Auscultation: lungs clear to auscultation bilaterally Cardiovascular: RRR, no murmur, no edema Skin: no rashes, warm and dry Neurologic: no focal motor deficits and not confused Psychiatric: Orientation: alert and oriented x 3 Affect: euthymic affect Results & Data Vital Signs (Past 12 Hours) Vital Signs Temp Pulse Pulse Pulse Resp BP Pulse Ox 07/12/22 09:00 07/12/22 08:01 36.5 C 47 L 19 125/39 L 97 07/12/22 06:54 39 L 07/12/22 03:00 36.5 C 48 L 18 135/56 L 99 O2 Del Method 07/12/22 09:00 Room Air 07/12/22 08:01 Room Air 07/12/22 06:54 07/12/22 03:00 Room Air PG Care Time/CCT Total # of Minutes Spent Total Time Spent with Patient: Total time spent is greater than 50% in coordination of care (as documented) at patient's floor/unit and/or counseling patient: Coding Level of Care Code 34170 SUB INP/OBS CARE 235MIN Diagnoses ESRD on hemodialysis N18.6; Z99.2 Acute blood loss anemia D62 Secondary hyperparathyroidism of renal origin N25.81 Hemorrhoids K64.9 GAVE (gastric antral vascular ectasia) K31.819 Hypertension I10
[2022-07-12] MEDS: rOPINIRole HCL 0.25 MG TABLET PO SCH ×2 (14:20→21:55)
[2022-07-12] MEDS ORDERED: CEFEPIME 500 MG in SYRINGE 0 ML IV SCH (17:00)
--- NOTE | 2022-07-12 19:29 | Hospitalist Progress Note ---
Date of Service July 12, 2022 Assessment & Plan (1) Acute GI bleeding: Plan: Known history of GAVE with frequent APC - likely source of recurrent bleeding. Is on a schedule of every [address] Pacheco, [facility]. s/p 2 units PRBCs with stable H/H since the transfusion. Stop PPI drip; convert to PO ppi BID. Cont famotidine 20mg/day. Continue octreotide 50mcg SQ BID. Will need to check if this is being secured for her as an outpatient. Would benefit from IV Venofer while here. Defer to nephrology as they typically manage this. Can defer on GI consultation for now as bleeding appears to have stopped. (2) UTI (urinary tract infection): Plan: Symptomatic for UTI despite negative urine cx x 2. Blood cx's remain negative. She remains on cefepime. Although urine cx is negative - given her symptoms - will cont to treat for total [address] a/p to ensure no kidney stone or any other source for recent fevers. (3) Acute blood loss anemia: Plan: 2nd to #1. s/p 2 units packed RBCs since admission. H/H stable this am once again. CBC in am. (4) Pre-syncope: Plan: Likely #1 with resulting #3 caused such. UTI, aortic stenosis, etc also likely contributors. (5) GAVE (gastric antral vascular ectasia): Plan: known dx s/p APC treatments by Dr Pacheco - last Rx about 10 days ago. Is on an every other week schedule for EGDs. Next EGD is on 07/17/22 as outpatient. Tx as needed. PPI bid ; stop PPI drip H2 andrae Octreotide (6) ESRD on hemodialysis: Plan: Appreciate nephrology consultation and assistance with HD needs Schedule - //Sun (7) Hypertension: Plan: Continue amlodipine and furosemide. Alpha andrae (flomax) continued. (8) Aortic stenosis: Plan: Moderate-severe on echo 01/2022 (9) Atrial fibrillation and flutter: Plan: has been bradycardic since 2021 based on records she is not on AV jolie agents anticoagulation contraindicated in setting of ongoing upper GI bleed she has rates in the 30s at times about 40-45 at rest with activity only into the 50s will ask cardiology to see given the extreme bradycardia seen at times (10) Diabetes mellitus, type 2: Plan: cont basal-bolus insulin with "sliding scale" parameters in place for lantus (11) Hypothyroidism: Plan: TSH today is 4; previous was 4; will increase synthroid to 125mcg daily to target her TSH to about 2 (12) Restless legs: Plan: Continue ropinirole Low Fe will exacerbate this issue (13) Pancytopenia: Plan: has been present since 2021 all cell lines have been trending down with slowly rising MCV B12/folate wnl peripheral smear ordered -- no suspicious features seen consider outpatient heme/onc referral for this smoldering MDS? 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: Plan: c diff gene + but toxin -- stool was formed once again today per staff will defer on Rx for now Plan VTE Prophylaxis - chemical means contraindicated due to #1 above Diet - advance to regular diet (ESRD/DM) daughter extensively updated by phone today Admission and Anticipated Discharge Date Admission Date: July 11, 2022 Subjective patient sitting in chair feels good eating well; tolerating such; NO ABD PAIN, NO NAUSEA/EMESIS with eating no headache, URI symptoms, cough, congestion, chills, chest pain, myalgias wants to go home staff report the stools are relatively normal ; no diarrhea tele - a.fib, rates as low as low 30s; at rest 40-45; with activity -- low 50s Review of Systems Review of Systems: gen - no fevers or chills today ; she didn't even realize she had fever yesterday - still with dysuria GI - no pain skin - no rash HENT - no runny nose, congestion, sore throat or ear pain Physical Exam Physical Exam: gen - NAD; sitting in chair; looks well neck - no JVD mouth - MMM heart - irregular, triston, s1 s2, 2/6 holosystolic murmur RUSB; separate systolic murmur LLSB 2/6 lungs - CTA b/l, decreased BS bases abd - soft NT ND BS+ ext - no edema, pulses 2+ b/l psych - a/o x 3 chest - permcath right upper chest clean skin - no rash Results & Data Results & Data Vital Signs (Past 12 Hours) Vital Signs Temp Pulse Pulse Pulse Resp BP Pulse Ox 07/12/22 15:00 36 L 05/10/23 15:36 36.4 C L 45 L 19 129/55 L 100 07/12/22 11:30 36.3 C L 45 L 16 147/42 H 100 07/12/22 09:00 07/12/22 08:01 36.5 C 47 L 19 125/39 L 97 O2 Del Method 07/12/22 15:00 07/12/22 15:36 Room Air 07/12/22 11:30 Room Air 07/12/22 09:00 Room Air 07/12/22 08:01 Room Air Laboratory Results Laboratory Results - last 24 hr 07/11/22 07/12/22 07/12/22 20:19 07:45 08:31 WBC 7.20 RBC 3.20 L Hgb 10.3 L Hct 31.4 L MCV 98.1 MCH 32.2 MCHC 32.8 RDW Std Deviation 69.0 H RDW Coeff of Irasema 19.3 H Plt Count 115 L MPV 11.2 Immature Gran % (Auto) 0.6 Neut % (Auto) 86.3 Lymph % (Auto) 6.8 Nicollet % (Auto) 4.7 Eos % (Auto) 1.0 Baso % (Auto) 0.6 Neut # (Auto) 6.22 Lymph # (Auto) 0.49 L Nicollet # (Auto) 0.34 Eos # (Auto) 0.07 Baso # (Auto) 0.04 Immature Gran # (Auto) 0.04 Sodium Potassium Chloride Carbon Dioxide Anion Gap BUN Creatinine Est Cr Clr Drug Dosing Est GFR ( Amer) Est GFR (Non-Af Amer) BUN/Creatinine Ratio Glucose POC Glucose 140 H 95 Calcium 07/12/22 07/12/22 07/12/22 08:31 11:31 16:30 WBC RBC Hgb Hct MCV MCH MCHC RDW Std Deviation RDW Coeff of Irasema Plt Count MPV Immature Gran % (Auto) Neut % (Auto) Lymph % (Auto) Nicollet % (Auto) Eos % (Auto) Baso % (Auto) Neut # (Auto) Lymph # (Auto) Nicollet # (Auto) Eos # (Auto) Baso # (Auto) Immature Gran # (Auto) Sodium 135 L Potassium 4.4 Chloride 98 Carbon Dioxide 29 Anion Gap 8 BUN 36 H D Creatinine 3.25 H D Est Cr Clr Drug Dosing 10.5 Est GFR ( Amer) 14.4 Est GFR (Non-Af Amer) 12.4 BUN/Creatinine Ratio 11.1 Glucose 164 H POC Glucose 124 H 77 Calcium 7.4 L PG Care Time/CCT Total # of Minutes Spent Total Time Spent with Patient: Total time spent is greater than 50% in coordination of care (as documented) at patient's floor/unit and/or counseling patient: Coding Level of Care Code 76848 SUB INP/OBS CARE 3/50MIN Diagnoses Acute GI bleeding K92.2 UTI (urinary tract infection) N39.0 Acute blood loss anemia D62 Pre-syncope R55 GAVE (gastric antral vascular ectasia) K31.819 ESRD on hemodialysis N18.6; Z99.2 Hypertension I10 Aortic stenosis I35.0 Atrial fibrillation and flutter I48.91; I48.92 Diabetes mellitus, type 2 E11.9 Hypothyroidism E03.9 Restless legs G25.81 Pancytopenia D61.818 Clostridioides difficile carrier Z22.1
[2022-07-12] MEDS: PANTOprazole 40 MG TAB PO SCH (21:54)
--- NOTE | 2022-07-12 22:00 | CT Scan Report ---
Exam(s): CT ABDOMEN + PELVIS Without Contrast EXAM: CT Abdomen and Pelvis Without Intravenous Contrast CLINICAL HISTORY: Reason for exam: fever, urinary symptoms; stone? other pathology?. TECHNIQUE: Axial computed tomography images of the abdomen and pelvis without intravenous contrast. CTDI is 19.05 mGy and DLP is 1024.72 mGy-cm. Automated exposure control was utilized for the study. A dose lowering technique was utilized adhering to the principles of ALARA. COMPARISON: CT abdomen/pelvis on 09/12/2019 FINDINGS: Lung bases: Dependent atelectasis bilaterally. Component of pneumonia is not excluded. Pleural space: Moderate to large bilateral pleural effusions. Heart: Cardiomegaly. Coronary artery, aortic valve, and mitral annular calcifications. Mediastinum: Moderate to large hiatal hernia. ABDOMEN: Liver: Nodular contour of the liver may represent cirrhosis. Gallbladder and bile ducts: Cholelithiasis in a mildly distended gallbladder. No ductal dilation. Pancreas: Unremarkable. No ductal dilation. Spleen: Splenomegaly. Nonspecific small hypodense lesion in the spleen. Adrenals: Unremarkable. No mass. Kidneys and ureters: Right renal cyst. No hydronephrosis or stone. Stomach and bowel: Unremarkable. No obstruction. No mucosal thickening. PELVIS: Appendix: No findings to suggest acute appendicitis. Bladder: Borderline prominence of the bladder wall. Please correlate with urinalysis if concerned for cystitis. No stones. Reproductive: Probable prior hysterectomy. ABDOMEN and PELVIS: Intraperitoneal space: Unremarkable. No free air. No significant fluid collection. Bones/joints: Degenerative changes of the spine. Posterior fusion hardware from T11-S1. Interbody space at L5-S1. No acute fracture. No dislocation. Soft tissues: Anasarca. Vasculature: Atherosclerotic changes of the vasculature. No aortic aneurysm. Phleboliths in pelvis. Lymph nodes: Unremarkable. No enlarged lymph nodes. IMPRESSION: 1. Dependent atelectasis bilaterally. Component of pneumonia is not excluded. 2. Moderate to large bilateral pleural effusions. 3. Moderate to large hiatal hernia. 4. Cholelithiasis in a mildly distended gallbladder. Acute cholecystitis is not excluded on this exam. 5. Splenomegaly. 6. Nodular contour of the liver may represent cirrhosis. 7. Anasarca. 8. Borderline prominence of the bladder wall. Please correlate with urinalysis if concerned for cystitis. Electronically signed by: Cori Rankin M.D. 07/12/22 21:59 PM
[2022-07-13] MEDS: LEVOTHYROXINE SODIUM 112 MCG TABLET PO SCH (05:45)
[2022-07-13] MEDS: CALCIUM CITRATE 950 MG TAB PO SCH (07:59)
[2022-07-13] MEDS: CYANOCOBALAMIN (B-12) 500 MCG TABLET PO SCH (07:59)
[2022-07-13] MEDS: PANTOprazole 40 MG TAB PO SCH (07:59)
[2022-07-13] MEDS: INSULIN ASPART PER UNIT CHARGE SC SCH ×2 (07:59→12:13)
[2022-07-13] MEDS: ADVANCED PROBIOTIC 1250 MG CAPSULE PO SCH (08:00)
[2022-07-13] MEDS: amLODIPine BESYLATE 5 MG TAB PO SCH (08:00)
[2022-07-13] MEDS: BETHANECHOL CHL 25 MG TAB PO SCH (08:00)
[2022-07-13] MEDS: CHOLECALCIFEROL 1,000 UNITS 25 MCG TAB PO SCH (08:00)
[2022-07-13] MEDS: SEVELAMER HCL 800 MG TABLET PO SCH ×2 (08:01→12:13)
[2022-07-13] MEDS: TAMSULOSIN HCL 0.4 MG CAP PO SCH (08:01)
[2022-07-13] MEDS: FAMOTIDINE 20 MG TAB PO SCH (08:01)
[2022-07-13] MEDS: LANTUS PER UNIT CHARGE SQ SCH (08:02)
[2022-07-13] MEDS: NYSTATIN POWDER 15GM BTL EXT SCH (08:02)
[2022-07-13] MEDS: FUROSEMIDE 80 MG TAB PO SCH (08:02)
[2022-07-13] MEDS ORDERED: EPOETIN ALFA 4,000 UNIT/ML VIAL IV SCH (09:00)
--- NOTE | 2022-07-13 09:38 | Nephrology Progress Note ---
Date of Service July 13, 2022 Assessment & Plan (1) ESRD on hemodialysis: (2) Acute blood loss anemia: (3) Secondary hyperparathyroidism of renal origin: (4) Hemorrhoids: (5) GAVE (gastric antral vascular ectasia): (6) Hypertension: Plan ESRD, on hemodialysis via Right IJ tunneled dialysis catheter on TTS at [facility]. Has history of GI bleeding with GAVE, presented with generalized weakness and in ER hemoglobin was 7.1, receive 2 units of PRBC and hemoglobin improved. . Blood pressure, volume status and electrolyte acceptable. Feeling better. Hb slightly dropped again this morning, 10.3. Plan for EGD next Sunday. -- tolerating dialysis, will try to challenge dry weight as she has bilateral pleural effusion and abdominal ascites --Continue on low-potassium, low phosphorus diet, continue on Renvela with meals --Dose medications for eGFR less than 10, recommend decreasing Famotidine dose to max 20 mg/d and give after HD on HD days. Will follow Admission and Anticipated Discharge Date Admission Date: July 11, 2022 Kathryn Virk was sen and evaluated during HD this morning. Doing well, no F/C. SOB,C P. Hb again slightly dropped to 10.3. BP fair. Review of Systems Review of Systems: Detailed ROS was otherwise unremarkable. Physical Exam Constitutional: WD/WN, vitals as above no acute distress Eyes: + anicteric sclerae Neck: Rt IJ TDC Respiratory: no respiratory distress Auscultation: + diminished lung sounds Cardiovascular: RRR, no murmur, no edema Skin: no rashes, warm and dry Neurologic: no focal motor deficits Psychiatric: Orientation: alert and oriented x 3 Affect: euthymic affect Results & Data Vital Signs (Past 12 Hours) Vital Signs Temp Pulse Pulse Pulse Pulse Resp BP 07/13/22 09:00 53 L 128/50 L 07/13/22 08:39 48 L 135/59 L 07/13/22 08:33 36.8 C 48 L 07/13/22 08:08 36.5 C 45 L 18 07/13/22 03:10 36.5 C 42 L 18 07/12/22 23:27 48 L 07/12/22 22:04 36.3 C L 45 L 18 BP BP Pulse Ox O2 Del Method 07/13/22 09:00 07/13/22 08:39 07/13/22 08:33 07/13/22 08:08 134/64 94 Room Air 07/13/22 03:10 140/45 L 95 Room Air 07/12/22 23:27 07/12/22 22:04 148/55 H 97 Room Air PG Care Time/CCT Total # of Minutes Spent Total Time Spent with Patient: Total time spent is greater than 50% in coordination of care (as documented) at patient's floor/unit and/or counseling patient: Coding Level of Care Code 01435 SUB INP/OBS CARE 2/35MIN Diagnoses ESRD on hemodialysis N18.6; Z99.2 Acute blood loss anemia D62 Secondary hyperparathyroidism of renal origin N25.81 Hemorrhoids K64.9 GAVE (gastric antral vascular ectasia) K31.819 Hypertension I10
[2022-07-13] MEDS: OCTREOTIDE ACETATE 100 MCG/ML VIAL SQ SCH (13:30)
[2022-07-13] MEDS: rOPINIRole HCL 0.25 MG TABLET PO SCH (14:15)
[2022-07-13 15:18] LABS: Hematocrit (blood only) 31.1 % (37.0-47.0); Hemoglobin 10.5 g/dl (12.0-16.0); Mean Corpuscular Hemoglobin 32.3 pg (25.0-34.0); Mean Corpuscular Hgb Conc 33.8 g/dL (32.0-36.0); Mean Corpuscular Volume 95.7 fL (80.0-100.0); Mean Platelet Volume 11.1 fL (9.4-12.4); Platelet Count 114 K/uL (130-400); RDW Coefficient of Variation 17.9 % (11.5-14.5); RDW Standard Deviation 63.2 fL (36.4-46.3); Red Blood Count 3.25 M/uL (4.20-5.40)
[2022-07-13 15:45] LABS: Albumin Globulin Ratio 1.4 (0.9-2); Albumin Level 2.9 gm/dl (3.4-5.0); BUN Creatinine Ratio 8.2 (10-20); Bilirubin,Total 0.6 mg/dl (0.2-1.0); Calcium 7.2 mg/dl (8.6-10.3); Creatinine Clr Calc Pharmacy 14.7 ml/min; Est GFR (African American) 21.7 ml/min; Est GFR (Non-African American) 18.7 ml/min; Globulin 2.1 gm/dl (2.5-4.0); Potassium 3.7 mmol/L (3.5-5.1)
--- NOTE | 2022-07-13 16:04 | Cardiology Consultation ---
Date of Consultation July 13, 2022 Assessment & Plan (1) Atrial fibrillation, permanent: (2) Bradycardia: (3) Mitral stenosis: (4) (HFpEF) heart failure with preserved ejection fraction: (5) CAD (coronary artery disease): (6) Aortic stenosis: (7) Pre-syncope: Plan ASSESSMENT/PLAN: 1. Atrial fibrillation with slow ventricular response: Permanent A-fib. No clear symptoms and at this point appears to be chronically bradycardic. Recommend avoiding medications which can slow heart rate, such as AV jolie blocking agents. No urgent indication for pacemaker. She is currently asymptomatic and symptoms of near syncope resolved following blood transfusion. She may require a pacemaker at some point. Close follow-up with her primary upsetter setter up, Dr. Agudelo. She is not on anticoagulation therapy due to recurrent GI bleeding. Could consider Watchman device however even antiplatelet therapy may be challenging. As per Dr. Agudelo. 2. Aortic and mitral stenosis: Continue to follow with Dr. Agudelo. Stenotic valves were not severe based on most recent imaging report. Continue with surveillance. 3. Chronic heart failure with preserved EF: Volume status is managed predominantly by dialysis. She appears euvolemic on exam. Low-sodium diet. 4. CAD: Nonobstructive CAD based on records. No angina. Not on antiplatelet therapy due to recurrent GI bleeding requiring blood transfusions. Reportedly on atorvastatin as an outpatient. If no contraindication, high intensity statin therapy recommended. 5. Near syncope: Resolved following PRBC transfusion. She was significantly anemic on presentation. Likely multifactorial in the setting of anemia, end- stage renal disease on hemodialysis, and bradycardia. Now that her hemoglobin has improved, she is asymptomatic. Bradycardia discussion as above. 6. Disposition: Follow-up closely with Dr. Agudelo, her primary upsetter setter up. No urgent indication for pacemaker at this time. Patient care discussed with Dr. Renteria, primary hospitalist. Thank you for allowing me to participate in the care of your patient. Please call for any other questions or concerns. Sincerely, Edwardo Sullivan M.D. History of Present Illness Reason for Consultation: Slow atrial fibrillation Requesting Physician: Davian Renteria MD Attending Physician: Davian Renteria MD History of Present Illness Ms. Faria is a very pleasant 82-year-old female with a history significant for atrial fibrillation, CHF, aortic stenosis, mitral stenosis, hypertension, dyslipidemia, type 2 diabetes, pulmonary hypertension, nonobstructive CAD (RCA 50% in July 2008), anemia and ESRD on HD (Sunday, , Sunday). Her primary upsetter setter up is Dr. Agudelo. She was admitted on 07/10/2022 with near syncope. On presentation, her hemoglobin was 7.1. She has known history of GI bleeding (GAVE) and follows with gastroe nterology. Last EGD was on 07/03/2022 which demonstrated gastric antral vascular ectasia, treated with argon plasma coagulation. EGDs have been recommended every 2 weeks. While here, she received PRBC x2. She feels much better and back to baseline. She denies syncope but only near syncopal on the day of presentation. She has been able to ambulate in her room without recurrent near syncope. She denies chest pain, shortness of breath, palpitations, edema, or bleeding. She apparently had dark loose stools prior to presentation. She recalls being told that her heart rate is slow chronically. When reviewing records, her heart rate has been charted in the 40s and 50s going back to August 2021, despite no rate controlling medications currently. 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 Review of systems: As above. Review of systems otherwise negative/unremarkable. Family history: Noncontributory. Social history: She denies tobacco, alcohol, or drug abuse. She lives alone. She was alone in her hospital room. Allergies Allergy/AdvReac Type Severity Reaction Status Date / Time sulfamethoxazole AdvReac Unknown REMOTE Verified 07/10/22 14:06 [From Bactrim] HX/PT NOT SURE REACTION trimethoprim [From Bactrim] AdvReac Unknown REMOTE Verified 07/10/22 14:06 HX/PT NOT SURE REACTION Home Medications Medication Instructions Recorded Confirmed Type cholecalciferol (vitamin D3) 25 2,000 unit PO QAM 05/29/18 07/10/22 History mcg (1,000 unit) capsule (Vitamin D3) omega-3s 300 [id number]-[id number] 1 cap PO QAM 05/29/18 07/10/22 History dryoa3i-[id number] oil 1,000 mg capsule ([place]-3 Fish Oil) blood sugar diagnostic (Blood #100 ea 10/12/20 07/05/22 Rx Glucose Test strips) cyanocobalamin (vitamin B-12) 1,000 mcg PO QAM 11/12/20 07/10/22 History 1,000 mcg tablet (Vitamin B-12) tamsulosin 0.4 mg capsule (Flomax) 0.4 mg PO QAM 11/12/20 07/10/22 History bethanechol chloride 50 mg tablet 50 mg PO BID #180 tabs 04/19/21 07/10/22 Rx Saccharomyces boulardii 250 mg 250 mg PO BID #180 caps 12/05/21 07/10/22 Rx capsule (Florastor) diaper,brief,adult,disposable #150 ea 12/07/21 07/05/22 Rx (Fitted Briefs X-Large) triamcinolone acetonide 0.05 % 1 applic topical BID #430 grams 01/18/22 07/10/22 Rx topical ointment furosemide 80 mg tablet 80 mg PO BID 03/20/22 07/10/22 History sevelamer carbonate 800 mg tablet 800 mg PO TIDM 03/20/22 07/10/22 History methocarbamol 500 mg tablet 500 mg PO TID PRN muscle spasm #90 05/03/22 07/10/22 Rx tabs calcium citrate 200 mg (950 mg) 400 mg PO QAM 05/29/22 07/10/22 History tablet loperamide 2 mg capsule 2 mg PO UD PRN Diarrhea 05/29/22 07/10/22 History ropinirole 0.5 mg tablet 0.5 mg PO UD 05/29/22 07/10/22 History estradiol 0.01% (0.1 mg/gram) 1 applic vaginal 3XWK 05/30/22 07/10/22 History vaginal cream levothyroxine 112 mcg tablet 112 mcg PO DAILYBB 05/30/22 07/10/22 History (Synthroid) tramadol 50 mg tablet 50 mg PO BID PRN Pain 05/30/22 07/10/22 History vitamin E 268 mg (400 unit) capsule 268 mg PO QAM 05/30/22 07/10/22 History famotidine 40 mg tablet 40 mg PO BID #60 tabs 06/02/22 07/10/22 Rx pantoprazole 40 mg tablet,delayed 40 mg PO BID #60 tabs 03/31/23 05/08/23 Rx release (Protonix) linagliptin 5 mg tablet (Tradjenta) 5 mg PO QAM #90 tabs 06/23/22 07/10/22 Rx octreotide acetate 50 mcg/mL 50 mcg subcut Q12H GAVE #25 mL 06/28/22 07/05/22 Rx injection solution amlodipine 5 mg tablet 5 mg PO DAILY 07/10/22 07/10/22 History nystatin 100,000 unit/gram topical 1 applic topical BID 07/10/22 07/10/22 History powder Patient History Medical History (Updated 07/13/22 @ 17:09 by Delvin Sullivan MD) Anemia of chronic disease Anxiety Aortic stenosis Atrial fibrillation, permanent CAD (coronary artery disease) Chronic diastolic heart failure Chronic hyponatremia Diabetes mellitus, type 2 Diabetic retinopathy Essential tremor MINOR IN HAND Fatty liver First degree AV block GAVE (gastric antral vascular ectasia) GERD without esophagitis Hearing deficit no hearing aids Hemorrhoids Hiatal hernia History of CVA (cerebrovascular accident) (2019) ~3-4 years ago, woke up with weakness in her rt hand; L lacunar infarct; previously on plavix>no residual effects History of GI bleed hx 08/2021, given transfusion-per medical record REASON FOR UPCOMING PROCEDURE History of recent hospitalization GI BLEED/LOW BLOOD COUNT/HX BLOOD TRANSFUSION - MAY 2022 - [facility] History of renal dialysis TURUBY,GRACIE AND SAT (KIDNEY PLACE [place]/ACROSS FROM [facility]) ACCESS SITE RIGHT SIDE OF CHEST/ ? DETAILS Hx of atrial fibrillation, no current medication per medical report Hyperlipidemia Hypertension Hypothyroidism 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 Osteoarthritis Poor historian RBBB f/u dr. agudelo Recurrent UTI HX/MUST BE OLD PROBLEM PER PT Resistant hypertension Restless legs Urinary urgency Venous insufficiency Surgical History H/O varicose vein ligation History of back surgery (04/2010) X 2 History of bladder suspension procedure X 2 History of colonoscopy History of esophagogastroduodenoscopy (EGD) History of esophagogastroduodenoscopy (EGD) multiple---last 06/19/2022 @ [facility] 04/06/22 at [facility] with Dr. Mich Pacheco- EGD- Gastric antral vascular ectasia with bleeding, treated with argon plasma coagulation (APC); Few angioectasias in the duodenum, treated with APC History of tooth extraction Hx of cardiac catheterization 08/2021, [place] w/Dr. Moura for increased cardiac pressures; no stents S/P carpal tunnel release RT/LEFT S/P hysterectomy [place]RI[place] S/P knee replacement RT/LEFT S/P pericardiocentesis 08/2021, [place], w/dr moura S/P trigger finger release Family History Father Alcohol abuse Heart disease Myocardial infarction Hypertension Sister Pancreatic cancer Diabetes Breast cancer Brother Diabetes Alcohol abuse Stroke Other Cancer No family history of adverse response to anesthesia Denies family history of Ovarian cancer Prostate cancer Colorectal cancer Social History Smoking Status: Never smoker Second Hand Exposure: No; Do You Dip or Chew Tobacco: No; Hx Alcohol Use: No Hx Substance Use: No Preferred Language: Japanese Communication Ability: Effective Visual Impairment: No Limitations Hearing Ability: Normal 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: No Beliefs That Will Affect Care: None marital status: Single Current Living Situation: Alone Current Living Situation Comment: 2 [address]S current occupational status: retired How many Children do You have: 2 Other Information That Helps Us Care for You: No Feels Safe at Home: Yes Safety Concerns: Feels Safe At This Time Childhood Exposure to Second-Hand Smoke: No Diet: regular Diet Comment: regular caffeine: Yes (Coffee x 2 cups per day.) during the past year weight has: remained stable Dental Care, Regularly: No Physical Activity Frequency: Does not Exercise Seatbelt Use: always Sunscreen Use: Yes Assistive Devices: Glasses and Walker Physical Exam Physical Exam: Gen.: No acute distress. Alert. HEENT: Anicteric sclera. Neck: No JVD. Bilateral carotid bruit versus radiation of cardiac murmur. Normal carotid upstrokes bilaterally. Cardiac: No ventricular heave. Irregularly irregular and bradycardic in the 40s to 50s. Normal S1-S2. 2/6 mid peaking systolic ejection murmur best heard at the right upper sternal border. Pulmonary: Decreased sounds, but otherwise clear to auscultation bilaterally without wheezes, rales, or rhonchi. Abdomen: Soft, nontender, nondistended, with normoactive bowel sounds. No bruits noted. Extremities: 2+ radial pulses bilaterally. 1+ posterior tibialis pulses bilaterally. Trace left lower extremity edema. No cyanosis. Psychiatric: Affect appears appropriate. Results & Data Vital Signs (Past 12 Hours) Vital Signs Temp Pulse Pulse Pulse Resp BP BP 07/13/22 14:54 36.7 C 44 L 20 133/74 07/13/22 12:15 36.6 C 48 L 07/13/22 12:00 51 L 125/51 L 07/13/22 07:00 47 L 07/13/22 11:30 48 L 121/58 L 07/13/22 11:00 48 L 118/60 07/13/22 10:30 49 L 125/55 L 07/13/22 10:00 45 L 132/52 L 07/13/22 09:30 48 L 121/58 L 07/13/22 09:00 53 L 128/50 L 07/13/22 08:39 48 L 135/59 L 07/13/22 08:33 36.8 C 48 L 07/13/22 08:08 36.5 C 45 L 18 134/64 BP Pulse Ox O2 Del Method 07/13/22 14:54 98 Room Air 07/13/22 12:15 139/53 L 07/13/22 12:00 07/13/22 07:00 07/13/22 11:30 07/13/22 11:00 07/13/22 10:30 07/13/22 10:00 07/13/22 09:30 07/13/22 09:00 07/13/22 08:39 07/13/22 08:33 07/13/22 08:08 94 Room Air Laboratory Results Laboratory Results - last 24 hr 07/12/22 07/12/22 07/13/22 16:30 21:38 07:32 WBC RBC Hgb Hct MCV MCH MCHC RDW Std Deviation RDW Coeff of Irasema Plt Count MPV Sodium Potassium Chloride Carbon Dioxide Anion Gap BUN Creatinine Est Cr Clr Drug Dosing Est GFR ( Amer) Est GFR (Non-Af Amer) BUN/Creatinine Ratio Glucose POC Glucose 77 114 H 105 H Calcium Total Bilirubin AST ALT Alkaline Phosphatase Total Protein Albumin Globulin Albumin/Globulin Ratio 07/13/22 07/13/22 14:55 14:55 WBC 5.00 RBC 3.25 L Hgb 10.5 L Hct 31.1 L MCV 95.7 MCH 32.3 MCHC 33.8 RDW Std Deviation 63.2 H RDW Coeff of Irasema 17.9 H Plt Count 114 L MPV 11.1 Sodium 136 Potassium 3.7 Chloride 101 Carbon Dioxide 26 Anion Gap 9 BUN 19 Creatinine 2.32 H D Est Cr Clr Drug Dosing 14.7 Est GFR ( Amer) 21.7 Est GFR (Non-Af Amer) 18.7 BUN/Creatinine Ratio 8.2 L Glucose 154 H POC Glucose Calcium 7.2 L Total Bilirubin 0.6 AST 21 ALT 15 Alkaline Phosphatase 208 H Total Protein 5.0 L Albumin 2.9 L Globulin 2.1 L Albumin/Globulin Ratio 1.4 Diagnostic Findings Telemetry personally reviewed: A-fib mostly in the 40s. No significant pauses noted. History and physical report from 07/10/2022 reviewed. ECG 07/10/2022 personally reviewed: A-fib 45 bpm. RBBB. Chest x-ray 07/10/2022: Small bilateral pleural effusions. EGD report reviewed as noted above in HPI. Echo report reviewed from 01/12/2022: Normal LV systolic function. EF 60 to 65%. Moderate to severe AAS reported. Moderate MS. Mild MR. Labs reviewed and notable for improved anemia, abnormal renal function, normal TSH, mild thrombocytopenia. Medications Administered Current Inpatient Medications Acetaminophen (Acetaminophen 325 Mg Tab) 650 mg PO Q4H PRN PRN Reason: Pain or Fever Stop: 08/09/22 15:38 Last Admin: 07/11/22 19:32 Dose: 650 mg Amlodipine Besylate (Amlodipine Besylate 5 Mg Tab) 5 mg PO DAILY [place] Stop: 08/10/22 08:59 Last Admin: 07/13/22 08:00 Dose: Not Given Bethanechol Chloride (Bethanechol Chl 25 Mg Tab) 50 mg PO BID [facility] [place] Stop: 08/09/22 20:59 Last Admin: 07/13/22 08:00 Dose: 50 mg Calcium Citrate (Calcium Citrate 950 Mg Tab) 1,900 mg PO QAM [facility] [place] Stop: 08/10/22 08:59 Last Admin: 07/13/22 07:59 Dose: 1,900 mg Cefdinir (Cefdinir 300 Mg Cap) 300 mg PO DAILY@17 [facility] [place] Stop: 07/18/22 16:59 Cyanocobalamin (Cyanocobalamin (B-12) 500 Mcg Tablet) 1,000 mcg PO QAM [facility] [place] Stop: 08/10/22 08:59 Last Admin: 07/13/22 07:59 Dose: 1,000 mcg Dextrose (Dextrose 50% 50 Ml Syringe) 25 - 50 ml IV UD PRN; Protocol PRN Reason: Hypoglycemia Protocol Stop: 08/09/22 15:38 Epoetin Ignacio (Epoetin Ignacio 4,000 Unit/Ml Vial) 4,000 units IV TODAY@0900 [place] Stop: 07/13/22 23:59 Last Admin: 07/13/22 11:12 Dose: 4,000 units Famotidine (Famotidine 20 Mg Tab) 20 mg PO DAILY [facility] [place] Stop: 08/11/22 08:59 Last Admin: 07/13/22 08:01 Dose: 20 mg Furosemide (Furosemide 80 Mg Tab) 80 mg PO BID17 [facility] [place] Stop: 08/09/22 16:59 Last Admin: 07/13/22 08:02 Dose: Not Given Glucagon (Glucagon For Inj 1 Mg Vial) 1 mg SQ UD PRN; Protocol PRN Reason: Hypoglycemia Protocol Stop: 08/09/22 15:38 Glucose (Glucose 10 Tab/Tube) 4 - 8 tab PO UD PRN; Protocol PRN Reason: Hypoglycemia Treatment Stop: 08/09/22 15:38 Glucose (Glucose 40% Gel 15 Gm Tube) 15 - 30 gm PO UD PRN; Protocol PRN Reason: Hypoglycemia Protocol Stop: 08/09/22 15:38 Insulin Aspart (Insulin Aspart Per Unit Charge) 0 units SC ACHS [facility] [place] Stop: 08/10/22 07:29 Last Admin: 07/13/22 12:13 Dose: Not Given Insulin Glargine (Lantus Per Unit Charge) 0 - 5 units SQ BID [place]; Protocol Stop: 08/09/22 20:59 Last Admin: 07/13/22 08:02 Dose: Not Given Lactobacillus Acidophilus (Advanced Probiotic 1250 Mg Capsule) 2 cap PO DAILY [facility] [place] Stop: 08/10/22 09:59 Last Admin: 07/13/22 08:00 Dose: 2 cap Levothyroxine Sodium (Levothyroxine Sodium 125 Mcg Tablet) 125 mcg PO DAILYBB [facility] [place] Stop: 08/13/22 06:29 Miscellaneous (Carbohydrates For Hypoglycemia ) 15 - 30 gm PO UD PRN PRN Reason: Hypoglycemia Protocol Stop: 08/09/22 15:38 Miscellaneous (Order Awaiting Action) 1 each N/A QS [place] Stop: 08/10/22 00:00 Last Admin: 07/13/22 07:59 Dose: Not Given Nystatin (Nystatin Powder 15gm Btl) 1 appln EXT BID [place] Stop: 08/09/22 20:59 Last Admin: 07/13/22 08:02 Dose: 1 appln Octreotide Acetate (Octreotide Acetate 100 Mcg/Ml Vial) 50 mcg SQ BID [place] Stop: 08/09/22 20:59 Last Admin: 07/13/22 13:30 Dose: 50 mcg Pantoprazole Sodium (Pantoprazole 40 Mg Tab) 40 mg PO BID [place] Stop: 08/11/22 20:59 Last Admin: 07/13/22 07:59 Dose: 40 mg Ropinirole HCl (Ropinirole Hcl 0.25 Mg Tablet) 0.5 mg PO DAILY@1400 [place] Stop: 08/09/22 17:44 Last Admin: 07/13/22 14:15 Dose: 0.5 mg Ropinirole HCl (Ropinirole Hcl 0.25 Mg Tablet) 1.5 mg PO HS [place] Stop: 08/09/22 20:59 Last Admin: 07/12/22 21:55 Dose: 1.5 mg Sevelamer HCl (Sevelamer Hcl 800 Mg Tablet) 800 mg PO TIDM [place] Stop: 08/09/22 16:59 Last Admin: 07/13/22 12:13 Dose: Not Given Tamsulosin HCl (Tamsulosin Hcl 0.4 Mg Cap) 0.4 mg PO QAM [place] Stop: 08/10/22 08:59 Last Admin: 07/13/22 08:01 Dose: 0.4 mg Tramadol HCl (Tramadol Hcl 50 Mg Tablet) 50 mg PO BID PRN PRN Reason: Pain Stop: 08/09/22 16:34 Vitamin D (Cholecalciferol 1,000 Units 25 Mcg Tab) 2,000 units PO QAM [place] Stop: 08/10/22 08:59 Last Admin: 07/13/22 08:00 Dose: 2,000 units PG Care Time/CCT Total # of Minutes Spent Total Time Spent with Patient: Total time spent is greater than 50% in coordination of care (as documented) at patient's floor/unit and/or counseling patient: Coding Level of Care Code 59920 INT INP/OBS CARE MIN Diagnoses Atrial fibrillation, permanent I48.21 Bradycardia R00.1 Mitral stenosis I05.0 (HFpEF) heart failure with preserved ejection fraction I50.30 CAD (coronary artery disease) I25.10 Aortic stenosis I35.0 Pre-syncope R55
[2022-07-13] MEDS ORDERED: CEFDINIR 300 MG CAP PO SCH (17:00)
--- NOTE | 2022-07-13 17:28 | Discharge Summary ---
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 She reports this has been getting worse over the last 2 days with excessive dark diarrheal episode yesterday. No nausea, vomiting dysphagia, odynophagia, hematochezia or abdominal pain. She reports having similar diarrhea on and off but finds it difficult to quantify or give me a good timeline. She had some concerns it was due to recently added Carafate in June although unclear if her diarrhea has been worse since starting this medication therefore she stopped taking this yesterday. 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 No fever or chills. No upper respiratory or urinary infective symptoms. Hemoglobin dropped from 10.2 in June to 7.1 today. Given history of GAVE with frequent EGDs she was referred to medicine for admission and ongoing management of this. Discharge Exam gen - NAD; sitting in chair; looks well neck - no JVD mouth - MMM heart - irregular, triston, s1 s2, 2/6 holosystolic murmur RUSB; separate systolic murmur LLSB 2/6 lungs - CTA b/l, decreased BS bases abd - soft NT ND BS+ ext - no edema, pulses 2+ b/l psych - a/o x 3 chest - permcath right upper chest clean skin - no rash Discharge Data Allergies Allergy/AdvReac Type Severity Reaction Status Date / Time sulfamethoxazole AdvReac Unknown REMOTE Verified 07/10/22 14:06 [From Bactrim] HX/PT NOT SURE REACTION trimethoprim [From Bactrim] AdvReac Unknown REMOTE Verified 07/10/22 14:06 HX/PT NOT SURE REACTION Consultations 07/10/22 15:39 Consult Nephrology Routine 07/13/22 07:48 Consult Cardiology Routine Ordered Studies 07/12/22 19:28 CT abd pelvis wo con Routine Hospital Course (1) Acute GI bleeding: Known history of GAVE with frequent APC - likely source of recurrent bleeding. Is on a schedule of every [address] Pacheco, [facility]. s/p 2 units PRBCs with stable H/H since the transfusion. Stop PPI drip; convert to PO ppi BID. Cont famotidine 20mg/day. Continue octreotide 50mcg SQ BID. Will need to check if this is being secured for her as an outpatient. Would benefit from IV Venofer while here. Defer to nephrology as they typically manage this. Can defer on GI consultation for now as bleeding appears to have stopped. (2) UTI (urinary tract infection): Symptomatic for UTI despite negative urine cx x 2. Blood cx's remain negative. She remains on cefepime. Although urine cx is negative - given her symptoms - will cont to treat for total [address] a/p to ensure no kidney stone or any other source for recent fevers. (3) Acute blood loss anemia: 2nd to #1. s/p 2 units packed RBCs since admission. H/H stable this am once again. CBC in am. (4) Pre-syncope: Likely #1 with resulting #3 caused such. UTI, aortic stenosis, etc also likely contributors. (5) GAVE (gastric antral vascular ectasia): known dx s/p APC treatments by Dr Pacheco - last Rx about 10 days ago. Is on an every other week schedule for EGDs. Next EGD is on 07/17/22 as outpatient. Tx as needed. PPI bid ; stop PPI drip H2 andrae Octreotide (6) ESRD on hemodialysis: Appreciate nephrology consultation and assistance with HD needs Schedule - //Sun (7) Hypertension: Continue amlodipine and furosemide. Alpha andrae (flomax) continued. (8) Aortic stenosis: Moderate-severe on echo 01/2022 (9) Atrial fibrillation and flutter: has been bradycardic since 2021 based on records she is not on AV jolie agents anticoagulation contraindicated in setting of ongoing upper GI bleed she has rates in the 30s at times about 40-45 at rest with activity only into the 50s will ask cardiology to see given the extreme bradycardia seen at times (10) Diabetes mellitus, type 2: cont basal-bolus insulin with "sliding scale" parameters in place for lantus (11) Hypothyroidism: TSH today is 4; previous was 4; will increase synthroid to 125mcg daily to target her TSH to about 2 (12) Restless legs: Continue ropinirole Low Fe will exacerbate this issue (13) Pancytopenia: has been present since 2021 all cell lines have been trending down with slowly rising MCV B12/folate wnl peripheral smear ordered -- no suspicious features seen consider outpatient heme/onc referral for this smoldering MDS? 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 acute, upper GI bleeding due to "GAVE" (gastric antral vascular ectasia) 2. acute on chronic anemia with 2 units of blood given 3. fever due to suspected urinary tract infection - resolved 4. chronic atrial fibrillation with slow heart rate - ongoing monitoring re commended 5. asymptomatic gallstones 6. cirrhosis 7. hiatal hernia 8. End-stage renal disease on dialysis 9. pleural effusions on CT scan - to be managed with dialysis; fluid likely combination of cirrhosis + kidney disease 10. hypothyroidism 11. pancytopenia (white cells, red cells, platelets all mildly low) - close surveillance needed - may be related to cirrhosis Activity: Resume your previous activity Non-emergency contact: Primary Care Provider and Supervisor Travel Trailer Call non-emergency contact if: you have any medication questions and you have a fever Follow-up/Referrals: Agatha Alfaro, [Primary Care Provider] - Kaylan Will MD [Physician] - (please report for your usual dialysis on 07/15/22 ) Mich Pacheco MD [Physician] - 07/17/22 (please report for previously scheduled EGD (upper endoscopy) ) Diet: Carb Consistent or DM2 and Dialysis Renal Fluids: 1500ml (6 cups) Addtl Attending Provider Instructions: Mrs Faria, You were hospitalized due to gastrointestinal bleeding likely from your "GAVE" condition that Dr Pacheco has been monitoring and treating. You received 2 units of blood while hospitalized. Your hemoglobin has been about 10.5 on 07/12 and 07/13. You have a previously scheduled visit with Dr Pacheco on 07/17 to have a repeat endoscopy (EGD). During your stay you had a mild fever. You had symptoms of urinary tract infection. Although your urine cultures did not grow bacteria I am still suspicious you had urinary infection. You received 2 days of IV antibiotics, and will have a few more days of oral antibiotic to take. We checked a CT scan of your abdomen to ensure you had no kidney stones or any other cause of your fever. You have gallstones in the gall bladder but the gall bladder did not appear "sick." We did not see kidney stones. The liver cirrhosis was the same as previous. There were pockets of fluid in the bottom of your lungs called "pleural effusions" and these pockets will be addressed via your dialysis sessions (hopefully the effusions will improve with ongoing dialysis). [facility] saw you for the slow a.fib. At this time we are going to continue to monitor your heart rates. It is very possible, however, that at some point you will need a pacemaker placed. Recommendations - 1. Antibiotics - cefdinir 300mg x 1 on 07/15/22 after dialysis, and then again on the AM of 07/17/22. This is for the urinary infection. 2. Please lower your famotidine to 20mg once daily; new script sent to [facility]. 3. Please increase your thyroid medication (levothyroxine) to 125mcg daily. This is just a small increase. Your last 2 thyroid tests suggest you could perhaps benefit from a small dose increase. Please have Dr Will or Dr Alfaro recheck your thyoid level ("TSH") in about 6 weeks. Follow-up - see separate section Return to [facility] if - * you are feeling dizzy or lightheaded * you have fever over 100 degrees * you have abdominal pains * you have worsening shortness of breath * you have chest pains * you are concerned about recurrent GI bleeding (dark or black stools, or bright red blood from your rectum) * you develop severe diarrhea * any other concerns It was our pleasure to care for you! Dr Renteria Pending Studies at Discharge: Yes Studies:: blood cultures but thus far negative Stand-Alone Forms: My [facility] Ensyn, Smoking Cessation Medications and DC Order Prescriptions: New cefdinir 300 mg Capsule 300 mg PO UD Qty: 2 0RF Rx Instructions: dose #1 on 07/15/22 AFTER dialysis; dose #2 on 07/17/22 in the morning. Continued (DME) Blood Glucose Test Strip See Rx Instructions .ROUTE .MEDSUPPLY Qty: 100 5RF Rx Instructions: Accucheck perform strips. 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 bethanechol chloride 50 mg tablet 50 mg PO BID Qty: 180 3RF Saccharomyces boulardii [Florastor] 250 mg capsule 250 mg PO BID Qty: 180 3RF (DME) Fitted Briefs X-Large Misc See Rx Instructions .Route Qty: 150 5RF Rx Instructions: using 4-5 per day R19.7 triamcinolone acetonide 0.05 % ointment 1 applic topical BID Qty: 430 1RF methocarbamol 500 mg tablet 500 mg PO TID PRN (Reason: muscle spasm) Qty: 90 1RF Tradjenta 5 mg tablet 5 mg PO QAM Qty: 90 2RF cholecalciferol (vitamin D3) [Vitamin D3] 1,000 unit Capsule 2,000 unit PO QAM [place]-3 Fish Oil 300-1,000 mg Capsule 1 cap PO QAM Patient Comments: NONE FOR ABOUT A WEEK calcium citrate 200 mg (950 mg) Tablet 400 mg PO QAM ropinirole 0.5 mg tablet 0.5 mg PO UD Patient Comments: 2 AFTERNOON AND 3 AT NIGHT Rx Instructions: Take 1 tab PO in afternoon, take 3 tabs at bedtime PO; loperamide 2 mg Capsule 2 mg PO UD PRN (Reason: Diarrhea) Rx Instructions: administer after each loose stool until symptoms controlled; do not exceed 8 mg per 24 hrs tramadol 50 mg tablet 50 mg PO BID PRN (Reason: Pain) estradiol 0.01 % (0.1 mg/gram) cream 1 applic VAGINAL 3XWK vitamin E 268 mg (400 unit) Capsule 268 mg PO QAM pantoprazole [Protonix] 40 mg tablet,delayed release (DR/EC) 40 mg PO BID Qty: 60 5RF nystatin 100,000 unit/gram powder 1 applic TOPICAL BID amlodipine 5 mg Tablet 5 mg PO DAILY cyanocobalamin (vitamin B-12) [Vitamin B-12] 1,000 mcg tablet 1,000 mcg PO QAM tamsulosin [Flomax] 0.4 mg capsule 0.4 mg PO QAM furosemide 80 mg Tablet 80 mg PO BID sevelamer carbonate 800 mg Tablet 800 mg PO TIDM Rx Instructions: must administer with a meal/food Changed famotidine 20 mg tablet 20 mg PO DAILY Qty: 30 2RF levothyroxine 125 mcg capsule 125 mcg PO DAILY Qty: 30 2RF Held octreotide acetate 50 mcg/mL solution 50 mcg subcut Q12H Qty: 25 5RF Hold Instructions: on back order Discharge Orders: Discharge Order (Routine); Ordered 07/13/22 Ordered By: Davian Renteria Admission Data Admit Date/Time: 07/11/22 16:12 Attending Provider: Davian Renteria Admit Provider: Davian Stephens Primary Care Provider: Agatha Alfaro Other Providers: Kaylan Will ; Delvin Sullivan Coding Diagnoses Acute GI bleeding K92.2 UTI (urinary tract infection) N39.0 Acute blood loss anemia D62 Pre-syncope R55 GAVE (gastric antral vascular ectasia) K31.819 ESRD on hemodialysis N18.6; Z99.2 Hypertension I10 Aortic stenosis I35.0 Atrial fibrillation and flutter I48.91; I48.92 Diabetes mellitus, type 2 E11.9 Hypothyroidism E03.9 Restless legs G25.81 Pancytopenia D61.818 Clostridioides difficile carrier Z22.1
[2022-07-14] MEDS ORDERED: LEVOTHYROXINE SODIUM 125 MCG TABLET PO SCH (06:30)
== END 2022-07-13 17:58 | disposition home or self-care (01) | DRG 377 ==
LOC: 2N 09:58 → ED 09:58 → SUATTDRO 13:03 → 2N 15:15

== ENCOUNTER 2022-08-20 15:12 | Inpatient (IN) ==
[2022-08-20] MEDS ORDERED: PANTOprazole 40 MG in DEXTROSE 5% 100 ML IV STA (15:46)
[2022-08-20] MEDS ORDERED: PANTOprazole 80 MG in DEXTROSE 5% 100 ML IV STA (15:46)
[2022-08-20 15:51] LABS: iSTAT Creatinine 3.5 mg/dl (0.6-1.3); iSTAT Hemoglobin 6.8 g/dl (12.0-16.0); iSTAT Ionized Calcium 0.92 mmol/l (1.12-1.32); iSTAT Potassium 4.7 mmol/L (3.3-5.0)
--- NOTE | 2022-08-20 15:57 | Emergency Department Note ---
Impression & Plan GAVE (gastric antral vascular ectasia), ABLA (acute blood loss anemia), Elevated troponin I level, ESRD (end stage renal disease) on dialysis ED Provider Note Provider: Bharathi Collins MD DATE OF SERVICE: 08/20/2022 CHIEF COMPLAINT: Weakness, dark stools, history of GI bleed HISTORY OF PRESENT ILLNESS: Patient is a 82-year-old female history of GAVE requiring frequent blood transfusions and EGDs as well as a history of ESRD on dialysis Sunday, , & Sunday presenting with daughter today stating last several days she has had some very dark stools and feels increasingly weak. Gets short of breath and weak predominantly when trying to ambulate. Reportedly somewhat pale. Denies any chest pain or abdominal pain. No syncope or falls reported. No bright red blood in the stool. Had blood work the beginning of the week according to family with a hemoglobin in the nines. Had an EGD at the beginning of the week with plasma treatment. Has been going about every 2 weeks for EGDs as well as blood transfusion. Last blood transfusion was approximately August 09. Had dialysis issue yesterday. PAST MEDICAL HISTORY: As noted above MEDICATIONS: Reviewed home medications does not include NSAIDs or antiplatelets SOCIAL HISTORY: Lives at home by herself in a single-story PHYSICAL EXAM: GENERAL: alert and oriented in no acute distress on stretcher however fatigued in appearance and somewhat pale Head: normocephalic and atraumatic EYES: No injection, discharge or icterus. NECK: Trachea midline. Supple. ENT: Mucous membranes pink and moist. LUNGS: Airway patent. No retractions. Breath sounds clear with good air entry bilaterally. HEART: Regular rate and rhythm. No chest wall tenderness with a right upper chest dialysis catheter in place. ABDOMEN: Soft and non-tender, without guarding or rebound. SKIN: Acyanotic, warm, dry, without rashes EXTREMITIES: Without swelling, tenderness or deformity NEUROLOGICAL: No focal deficits. No aphasia. No facial droop or slurred speech. EK bpm sinus rhythm with PACs with some baseline artifact. No clear acute ST segment elevation with nonspecific anterior T wave changes and a right bundle branch block. QTc 468. CONTINUOUS CARDIAC MONITORING: was ordered and showed a heart rate of bpm in Patient's laboratory studies and imaging reviewed. Differential includes Infection, dehydration, metabolic abnormality, hypo/hyperglycemia, electrolyte disturbance, anemia, hypoxia, cardiac sources, neurologic, as well as other pathologies. IMPRESSION/MEDICAL DECISION MAKING: Patient without trauma or focal neurological deficit. Generalized weakness particular with exertion. Unfortunate history of recurrent GAVE and GI bleed. Last treatment with plasma EGD on Sunday. [id number] hemoglobin 6.8 today. Does have a history of heart failure, ESRD as well as CAD. History of transfusion in the past. We will give additional Protonix as well as drip although may not be usually effective. Benign abdomen. No blood or blood or vomiting. Reviewed prior records. We will plan for transfusion but want to be cautious to avoid fluid overload. Formal hemoglobin returns at 5.8 and 2 units of blood ordered. Troponin minimally elevated at 36 likely related to the anemia and not having active chest pain. Patient consented for blood transfusion. Do not feel additional imaging is needed at this time beyond x-ray and basic labs. Chest x-ray without evidence of failure and similar left greater than right pleural effusions. Discussed with her and her daughter at bedside hospitalist contacted for further monitoring here and GI consultation as she will likely need repeat EGD. Discussed with Dr. Ramirez from [facility] and the hospitalist. Octreotide drip started in discussion with GI. Blood transfusion started here in the ER. DIAGNOSIS: GI bleed, weakness, anemia, esrd on dialysis, elevated troponin DISPOSITION: Hospitalist will evaluate Patient was agreeable with this plan. Critical Care I have personally spent 32 minutes of critical care time in the direct manag ement of this patient. This includes bedside care, interpretation of diagnostic studies, and testing, discussion with consultants, patient, and family members, and other required patient management activities. These 32 minutes is in excess of all separately billable procedures. Past Med/Surg History Medical History (Updated 08/20/22 @ 17:49 by Luke Gomes PA-C) Anemia of chronic disease Anxiety Aortic stenosis Atrial fibrillation and flutter Atrial fibrillation, permanent CAD (coronary artery disease) Chronic diastolic heart failure Chronic hyponatremia Clostridioides difficile carrier Diabetes mellitus, type 2 Diabetic retinopathy ESRD on hemodialysis tuesdays, , and saturdays currently Essential tremor MINOR IN HAND Fatty liver First degree AV block GAVE (gastric antral vascular ectasia) GERD without esophagitis Hearing deficit no hearing aids Hemorrhoids Hiatal hernia History of CVA (cerebrovascular accident) (2019) ~5years ago, woke up with weakness in her rt hand; L lacunar infarct; pr eviously on plavix>no residual effects History of GI bleed hx 08/2021, given transfusion-per medical record REASON FOR UPCOMING PROCEDURE History of recent hospitalization GI BLEED/LOW BLOOD COUNT/HX BLOOD TRANSFUSION - MAY 2022 - [facility] History of renal dialysis TUES,THUR AND SAT ([facility] [place]ACROSS FROM [facility]) ACCESS SITE RIGHT SIDE OF CHEST/ ? DETAILS Hx of atrial fibrillation, no current medication per medical report Hyperlipidemia Hypertension Hypothyroidism 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 Osteoarthritis Pancytopenia Poor historian RBBB f/u dr. aguirre Resistant hypertension Restless legs Secondary hyperparathyroidism of renal origin Urinary urgency Venous insufficiency Surgical History H/O varicose vein ligation History of back surgery (04/2010) X 2 History of bladder suspension procedure X 2 History of colonoscopy History of esophagogastroduodenoscopy (EGD) multiple---last 08/01/2022 @ [facility] 04/06/22 at [facility] with Dr. Mich Pacheco- EGD- Gastric antral vascular ectasia with bleeding, treated with argon plasma coagulation (APC); Few angioectasias in the duodenum, treated with APC History of tooth extraction Hx of cardiac catheterization 08/2021, [facility] w/Dr. Moura for increased cardiac pressures; no stents S/P carpal tunnel release RT/LEFT S/P hysterectomy ANDRIA S/P knee replacement RT/LEFT S/P pericardiocentesis 08/2021, [facility], w/dr moura S/P trigger finger release Family History Father Alcohol abuse Heart disease Myocardial infarction Hypertension Sister Pancreatic cancer Diabetes Breast cancer Brother Diabetes Alcohol abuse Stroke Other Cancer No family history of adverse response to anesthesia Denies family history of Ovarian cancer Prostate cancer Colorectal cancer Social History Smoking Status: Never smoker Second Hand Exposure: No; Do You Dip or Chew Tobacco: No; Tobacco Cessation Education Requested by Patient: No Hx Alcohol Use: No Hx Substance Use: No Preferred Language: Omani Communication Ability: Effective Visual Impairment: No Limitations Hearing Ability: Normal Cigar Packer And Picker Required: No Beliefs That Will Affect Care: None marital status: Single Current Living Situation: Alone current occupational status: retired How many Children do You have: 2 Other Information That Helps Us Care for You: No Feels Safe at Home: Yes Safety Concerns: Feels Safe At This Time Childhood Exposure to Second-Hand Smoke: No Diet: regular Diet Comment: regular caffeine: Yes (Coffee x 2 cups per day.) during the past year weight has: remained stable Dental Care, Regularly: No Physical Activity Frequency: Does not Exercise Seatbelt Use: always Sunscreen Use: Yes Assistive Devices: Denture - Upper, Denture - Lower, Glasses and Walker Allergies Allergies Allergy/AdvReac Type Severity Reaction Status Date / Time sulfamethoxazole AdvReac Unknown REMOTE Verified 08/17/22 12:07 [From Bactrim] HX/PT NOT SURE REACTION trimethoprim [From Bactrim] AdvReac Unknown REMOTE Verified 08/17/22 12:07 HX/PT NOT SURE REACTION Home Meds Home Medications Medication Instructions Recorded Confirmed cholecalciferol (vitamin D3) 25 2,000 unit PO QAM 05/29/18 08/20/22 mcg (1,000 unit) capsule (Vitamin D3) cyanocobalamin (vitamin B-12) 1,000 mcg PO QAM 11/12/20 08/20/22 1,000 mcg tablet (Vitamin B-12) tamsulosin 0.4 mg capsule (Flomax) 0.4 mg PO QAM 11/12/20 08/20/22 furosemide 80 mg tablet 80 mg PO BID 03/20/22 08/20/22 sevelamer carbonate 800 mg tablet 1,600 mg PO BIDWMEAL 03/20/22 08/20/22 calcium citrate 200 mg (950 mg) 400 mg PO QAM 05/29/22 08/20/22 tablet loperamide 2 mg capsule 2 mg PO UD PRN Diarrhea 05/29/22 08/20/22 estradiol 0.01% (0.1 mg/gram) 1 applic vaginal 3XWK 05/30/22 08/20/22 vaginal cream tramadol 50 mg tablet 50 mg PO BID PRN Pain 05/30/22 08/20/22 vitamin E 268 mg (400 unit) capsule 268 mg PO QAM 05/30/22 08/20/22 amlodipine 5 mg tablet 5 mg PO QAM 07/10/22 08/20/22 nystatin 100,000 unit/gram topical 1 applic topical BID 07/10/22 08/20/22 powder levothyroxine 125 mcg capsule 125 mcg PO QAM 07/20/22 08/20/22 Previous Rx's Medication Instructions Recorded blood sugar diagnostic (Blood #100 ea 10/12/20 Glucose Test strips) bethanechol chloride 50 mg tablet 50 mg PO BID #180 tabs 04/19/21 Saccharomyces boulardii 250 mg 250 mg PO BID #180 caps 12/05/21 capsule (Florastor) diaper,brief,adult,disposable #150 ea 12/07/21 (Fitted Briefs X-Large) triamcinolone acetonide 0.05 % 1 applic topical BID #430 grams 01/18/22 topical ointment methocarbamol 500 mg tablet 500 mg PO TID PRN muscle spasm #90 05/03/22 tabs pantoprazole 40 mg tablet,delayed 40 mg PO BID #60 tabs 06/02/22 release (Protonix) linagliptin 5 mg tablet (Tradjenta) 5 mg PO QAM #90 tabs 06/23/22 octreotide acetate 50 mcg/mL 50 mcg subcut Q12H GAVE #25 mL 06/28/22 injection solution famotidine 20 mg tablet 20 mg PO BID 3 months #180 tabs 07/21/22 ropinirole 0.5 mg tablet 0.5 mg PO UD #90 tabs 08/07/22 sucralfate 100 mg/mL oral 5 ml PO QID #400 mL 08/10/22 suspension (Carafate) Results & Data (ED) Vital Signs Vital Signs - 24 hr 08/20/22 15:15 08/20/22 16:01 08/20/22 16:01 Temperature 36.6 C Temperature Source Temporal Artery Scan Pulse Rate 71 Pulse Rate [Right Finger] 67 Respiratory Rate 16 16 Blood Pressure 117/66 Blood Pressure [Left Arm] 110/55 L Blood Pressure Mean 83 Blood Pressure Mean [Left Arm] 73 Pulse Oximetry 100 98 96 Oxygen Delivery Method Room Air Room Air Room Air Sepsis Recent Fever Within 48 Hours No Sepsis New/Unexplained Change in Mental Status N/A Sepsis Action Taken by Nursing No Action Required 08/20/22 16:30 08/20/22 16:34 08/20/22 17:05 Temperature 36.6 C Temperature Source Oral Pulse Rate 64 73 Pulse Rate [Right Finger] 66 Respiratory Rate 16 22 Blood Pressure 121/58 L Blood Pressure [Left Arm] 124/57 L Blood Pressure Mean 79 Blood Pressure Mean [Left Arm] 79 Pulse Oximetry 100 100 Oxygen Delivery Method Room Air Sepsis Recent Fever Within 48 Hours Sepsis New/Unexplained Change in Mental Status Sepsis Action Taken by Nursing Laboratory Data 08/20/22 15:28 08/20/22 15:28 Lab Results 08/20/22 08/20/22 08/20/22 Range/Units 15:28 15:28 15: WBC 3.02 L (4.8-10.8) K/ul RBC 1.80 L (4.20-5.40) M/uL Hgb 5.8 L* (12.0-16.0) g/dl POC Hgb (12.0-16.0) g/dl Hct 18.4 L* (37.0-47.0) % POC Hct (37-47) % MCV 102.2 H (80.0-100.0) fL MCH 32.2 (25.0-34.0) pg MCHC 31.5 L (32.0-36.0) g/dL RDW Std Deviation 57.9 H (36.4-46.3) fL RDW Coeff of Irasema 15.7 H (11.5-14.5) % Plt Count 96 L (130-400) K/uL MPV 11.6 (9.4-12.4) fL Immature Gran % (Auto) 0.0 % Neut % (Auto) 68.5 % Lymph % (Auto) 22.2 % Beauregard % (Auto) 7.3 % Eos % (Auto) 1.3 % Baso % (Auto) 0.7 % Neut # (Auto) 2.07 (1.40-6.50) K/uL Lymph # (Auto) 0.67 L (1.2-3.4) K/uL Beauregard # (Auto) 0.22 (0.11-0.59) K/uL Eos # (Auto) 0.04 (0-0.50) K/uL Baso # (Auto) 0.02 (0-0.2) K/uL Immature Gran # (Auto) 0.00 L (0.01-0.20) K/uL Polychromasia 1+ Ovalocytes 1+ PT 11.0 (9.0-12.0) Seconds INR 1.0 (0.9-1.1) APTT 23.6 (21.0-31.0) Seconds PTT Ratio 0.8 POC Sodium (135-144) mmol/L Sodium (136-145) mmol/L POC Potassium (3.3-5.0) mmol/L Potassium (3.5-5.1) mmol/L POC Chloride (101-112) mmol/L Chloride (98-107) mmol/L Carbon Dioxide (21-32) mmol/L POC Total CO2 (24-31) mmol/L Anion Gap (3-11) POC Anion Gap (16-25) mmol/L POC BUN (7-18) mg/dl BUN (6-23) mg/dl Creatinine (0.6-1.2) mg/dl POC Creatinine (0.6-1.3) mg/dl Est Cr Clr Drug Dosing ml/min Est GFR ( Amer) ml/min Est GFR (Non-Af Amer) ml/min BUN/Creatinine Ratio (10-20) Glucose (70-99(Fasting)) mg/dl POC Glucose (other) (70-99) mg/dl Calcium (8.6-10.3) mg/dl POC Ioniz Calcium Verito (1.12-1.32) mmol/l Total Bilirubin (0.2-1.0) mg/dl AST (13-39) U/L ALT (7-52) U/L Alkaline Phosphatase (34-104) U/L Troponin I High Sens (0-14) pg/ml Total Protein (6.0-8.3) gm/dl Albumin (3.4-5.0) gm/dl Globulin (2.5-4.0) gm/dl Albumin/Globulin Ratio (0.9-2) SARS-CoV-2, RNA, NAAT (NEGATIVE) Blood Type O Positive Antibody Screen NEGATIVE Crossmatch See Detail 08/20/22 08/20/22 08/20/22 Range/Units 15:28 15:36 15:40 WBC (4.8-10.8) K/ul RBC (4.20-5.40) M/uL Hgb (12.0-16.0) g/dl POC Hgb 6.8 L* (12.0-16.0) g/dl Hct (37.0-47.0) % POC Hct 20 L* (37-47) % MCV (80.0-100.0) fL MCH (25.0-34.0) pg MCHC (32.0-36.0) g/dL RDW Std Deviation (36.4-46.3) fL RDW Coeff of Irasema (11.5-14.5) % Plt Count (130-400) K/uL MPV (9.4-12.4) fL Immature Gran % (Auto) % Neut % (Auto) % Lymph % (Auto) % Beauregard % (Auto) % Eos % (Auto) % Baso % (Auto) % Neut # (Auto) (1.40-6.50) K/uL Lymph # (Auto) (1.2-3.4) K/uL Beauregard # (Auto) (0.11-0.59) K/uL Eos # (Auto) (0-0.50) K/uL Baso # (Auto) (0-0.2) K/uL Immature Gran # (Auto) (0.01-0.20) K/uL Polychromasia Ovalocytes PT (9.0-12.0) Seconds INR (0.9-1.1) APTT (21.0-31.0) Seconds PTT Ratio POC Sodium 138 (135-144) mmol/L Sodium 139 (136-145) mmol/L POC Potassium 4.7 (3.3-5.0) mmol/L Potassium 4.4 (3.5-5.1) mmol/L POC Chloride 98 L (101-112) mmol/L Chloride 100 (98-107) mmol/L Carbon Dioxide 30 (21-32) mmol/L POC Total CO2 26 (24-31) mmol/L Anion Gap 9 (3-11) POC Anion Gap 19.0 (16-25) mmol/L POC BUN 46 H (7-18) mg/dl BUN 53 H (6-23) mg/dl Creatinine 3.14 H (0.6-1.2) mg/dl POC Creatinine 3.5 H (0.6-1.3) mg/dl Est Cr Clr Drug Dosing 10.3 ml/min Est GFR ( Amer) 15.0 ml/min Est GFR (Non-Af Amer) 13.0 ml/min BUN/Creatinine Ratio 16.9 (10-20) Glucose 107 H (70-99(Fasting)) mg/dl POC Glucose (other) 112 H (70-99) mg/dl Calcium 7.9 L (8.6-10.3) mg/dl POC Ioniz Calcium Verito 0.92 L (1.12-1.32) mmol/l Total Bilirubin 0.3 (0.2-1.0) mg/dl AST 23 (13-39) U/L ALT 23 (7-52) U/L Alkaline Phosphatase 256 H (34-104) U/L Troponin I High Sens 36.7 H (0-14) pg/ml Total Protein 4.9 L (6.0-8.3) gm/dl Albumin 3.0 L (3.4-5.0) gm/dl Globulin 1.9 L (2.5-4.0) gm/dl Albumin/Globulin Ratio 1.6 (0.9-2) SARS-CoV-2, RNA, NAAT NEGATIVE (NEGATIVE) Blood Type Antibody Screen Crossmatch Administered Medications Pantoprazole Sodium 40 mg/ (Dextrose) 100 mls @ 20 mls/hr IV Q5H STA Stop: 08/20/22 20:45 Last Admin: 08/20/22 15:58 Dose: 8 mg/hr, 20 mls/hr Documented By: GRANT Insulin Aspart (Insulin Aspart Per Unit Charge) 0 units SC Q6H [place] Stop: 09/19/22 18:14 Last Admin: 08/20/22 18:53 Dose: Not Given Documented By: MONSTER Co-signed By: MTP Discontinued Medications Pantoprazole Sodium 80 mg/ (Dextrose) 120 mls @ 480 mls/hr IV ONE STA Stop: 08/20/22 16:00 Last Infusion: 08/20/22 16:11 Dose: 0 mls/hr Documented By: Admin: 08/20/22 15:58 Dose: 480 mls/hr Documented By: JUAN MANUELW Octreotide Acetate 50 mcg/ (Syringe) 10 mls @ 3 mls/min IV ONE STA Stop: 08/20/22 17:12 Last Admin: 08/20/22 17:41 Dose: 3 mls/min Documented By: JUAN MANUELW Ceftriaxone Sodium 1,000 mg/ (Dextrose) 50 mls @ 100 mls/hr IV NOW STA; Prot ocol Stop: 08/20/22 17:54 Last Infusion: 08/20/22 17:54 Dose: 0 mls/hr Documented By: Admin: 08/20/22 17:41 Dose: 100 mls/hr Documented By: JUAN MANUELW Imaging Data Radiologist's Impression: Chest X-Ray 08/20/22 15:46 SINGLE VIEW CHEST CLINICAL HISTORY: Generalized weakness. FINDINGS: An AP, portable, upright chest radiograph is compared to study dated 07/10/2022. The examination is degraded by portable technique and patient rotation. A right sided central venous catheter is unchanged position. The heart is enlarged noting atherosclerotic calcification of the thoracic aorta. The pulmonary vasculature is noncongested. Chronic interstitial thickening is similar to previous. There are small pleural effusions, left larger than right w ith dependent consolidation. No airspace consolidation is seen typical for pneumonia. No pneumothorax is identified. The bony thorax is grossly intact. Arthritic change is seen in the shoulders, left significantly greater than right. Fusion hardware is noted at the thoracolumbar junction. IMPRESSION: 1. Cardiomegaly without radiographic evidence of congestive failure. 2. Left larger than right pleural effusions with dependent atelectasis. These are similar to previous. ACT 112: Negative or not required by law. Electronically signed by: Eulogio Gaspar M.D. 08/20/2022 3:59 PM Discharge Plan Visit Data Chief Complaint: Weakness Stated Complaint: WEAKNESS, POSSIBLE GI BLEEDING ED Provider: Bharathi Collins Discharge Problem: GAVE (gastric antral vascular ectasia), ABLA (acute blood loss anemia), Elevated troponin I level, ESRD (end stage renal disease) on dialysis Patient Disposition: Admitted As Inpatient Discharge Instructions Interventions: ED Discharge Assessment Last Done: 08/20/22 18:05
--- NOTE | 2022-08-20 16:00 | XRay Report ---
SINGLE VIEW CHEST CLINICAL HISTORY: Generalized weakness. FINDINGS: An AP, portable, upright chest radiograph is compared to study dated 07/10/2022. The examinat ion is degraded by portable technique and patient rotation. A right sided central venous catheter is unchanged position. The heart is enlarged noting atherosclerotic calcification of the thoracic aorta. The pulmonary vasculature is noncongested. Chronic interstitial thickening is similar to previous. T here are small pleural effusions, left larger than right with dependent consolidation. No airspace co nsolidation is seen typical for pneumonia. No pneumothorax is identified. The bony thorax is grossly intact. Arthritic change is seen in the shoulders, left significantly greater than right. Fusion hard jones is noted at the thoracolumbar junction. IMPRESSION: 1. Cardiomegaly without radiographic evidence of congestive failure. 2. Left larger than right pleural effusions with dependent atelectasis. These are similar to previous . ACT 112: Negative or not required by law. Electronically signed by: Eulogio Gaspar M.D. 08/20/2022 3:59 PM
[2022-08-20] MEDS ORDERED: SODIUM CHLORIDE 0.9% 250 ML IV PRN (16:28)
[2022-08-20 16:29] LABS: Hematocrit (blood only) 18.4 % (37.0-47.0); Hemoglobin 5.8 g/dl (12.0-16.0); Mean Corpuscular Hemoglobin 32.2 pg (25.0-34.0); Mean Corpuscular Hgb Conc 31.5 g/dL (32.0-36.0); Mean Corpuscular Volume 102.2 fL (80.0-100.0); Mean Platelet Volume 11.6 fL (9.4-12.4); Platelet Count 96 K/uL (130-400); RDW Coefficient of Variation 15.7 % (11.5-14.5); RDW Standard Deviation 57.9 fL (36.4-46.3); White Blood Count 3.02 K/ul (4.8-10.8)
[2022-08-20 16:32] LABS: Albumin Globulin Ratio 1.6 (0.9-2); BUN Creatinine Ratio 16.9 (10-20); Basophils # (auto) 0.02 K/uL (0-0.2); Basophils % (auto) 0.7 %; Bilirubin,Total 0.3 mg/dl (0.2-1.0); Calcium 7.9 mg/dl (8.6-10.3); Creatinine Clr Calc Pharmacy 10.3 ml/min; Eosinophils # (auto) 0.04 K/uL (0-0.50); Eosinophils % (auto) 1.3 %; Globulin 1.9 gm/dl (2.5-4.0); Lymphocytes # (auto) 0.67 K/uL (1.2-3.4); Lymphocytes % (auto) 22.2 %; Monocytes # (auto) 0.22 K/uL (0.11-0.59); Monocytes % (auto) 7.3 %; Neutrophils # (auto) 2.07 K/uL (1.40-6.50); Neutrophils % (auto) 68.5 %; Ovalocytes 1+; Polychromasia 1+; Potassium 4.4 mmol/L (3.5-5.1); Total Protein 4.9 gm/dl (6.0-8.3)
[2022-08-20 16:39] LABS: Troponin I High Sensitivity 36.7 pg/ml (0-14)
[2022-08-20 16:41] LABS: Partial Thromboplastin Ratio 0.8; Partial Thromboplastin Time 23.6 Seconds (21.0-31.0)
[2022-08-20] MEDS ORDERED: STAT IV STA (17:05)
[2022-08-20] MEDS ORDERED: OCTREOTIDE ACETATE 50 MCG in SYRINGE 9.5 ML IV STA (17:09)
--- NOTE | 2022-08-20 17:12 | History & Physical Report ---
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 Pacheco on 08/15 with hgb of 9.7 on 08/10 -Has been having black stool again -Hgb currently at 5.8, currently receiving the first of 2 units PRBC ordered by the ED -Started on Protonix drip, continue for now -Will start an octreotide drip with bolus -Will start Ceftriaxone with her HX of cirrhosis, upper GI bleed, and Varices -GI confirmed the patient can stay and be treated here, they will perform EGD tomorrow -May need to consider GOC discussions as the patient's quality of life has been very poor with her recurrent GI bleeds and chronic medical conditions -Keep NPO except meds in preparation for EGD tomorrow -Would transfuse to keep Hgb at or above 8.0 -Will start q6h CBC approximately 1 hour after her second unit has finished -AM CMP, Mag, PT/INR (2) Elevated troponin I level: Plan: -Initial high sen trop elevated at 36 -Patient is asymptomatic, no acute ST segment changes but does have some t-wave inversions in the anterior leads -Elevation is likely a combination of demand from her severe anemia and ESRD status causing a falsely elevated level -Will repeat STAT 2 hour trop now, continue to monitor on tele (3) ESRD (end stage renal disease) on dialysis: Plan: -Patient is on HD TTSat -Had a full session yesterday -Renal function and electrolytes stable besides her ionized calcium of 0.92 -Will obtain a Phos level -Nephrology consulted to follow while admitted in case of HD (4) Pancytopenia: Plan: -Due to a combination of her chronic diseases and recurrent GI bleeds -Continue to trend CBC with diff (5) Neurogenic bladder: Plan: -Continue bethanechol chloride (6) Diabetes mellitus type 2 with complications: Plan: -Hold Tradjenta -Monitor BSG q6h, goal is 110-160 -Start 5 units BID, CF 50 q6h for now -Adjust regimen as needed (7) Cirrhosis: Plan: -Stable -Will hold lasix for now to prevent hypotension with current bleed (8) (HFpEF) heart failure with preserved ejection fraction: Plan: -Currently Euvolemic -Hold amlodipine for now to prevent hypotension (9) Atrial fibrillation, permanent: Plan: -Stable -Not on anticoagulation due to recurrent GI bleeds and anemia -Rate controlled off AV jolie blocking agents -Continue to monitor on tele (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: Plan: -Known to be a carrier but is without diarrhea at this time -Still not interested and prophylactic treatment Plan The patient was discussed with Dr. Stephens at the time of the admission History of Present Illness Chief Complaint: GI bleed, generalized weakness Primary Care Provider: Agatha Alfaro DO Sully Ray is an 82 year old female with ESRD on dialysis TTSat, GAVE requiring frequent blood transfusions and EGDs, Afib (not on anticoagulation due to Gi bleed)s), Cirrhosis, DMII, hypothyroidism, C.diff carrier who presented to the [facility] ED on 08/20 due to recurrent GI bleed and weakness. In the ED vitals were stable. Labs were significant for progressive pancytopenia with a hgb of 5.8 (down from 9.7 as of 08/10), MCV of 102, RDW of 57, platelets of 96, lymphocyte count of 0.67, cr of 3.14, BUN of 53, ionized calcium of 0.92, stable alk phos of 256, initial high sen trop of 36, and covid 19 negative. Chest xray was read as 1. Cardiomegaly without radiographic evidence of congestive failure. 2. Left larger than right pleural effusions with dependent atelectasis. These are similar to previous.. Prior to admission the patient was started on a Protonix drip and ordered 2 units of PRBCs. At the time of the exam the patient was sitting in bed in no acute distress with her Daughter sitting bedside, history was obtained from both. The patient states that since her last transfusion last week she has been weak and didn't bounce back like she usually does. She had a full course of hemodialysis yesterday without issue but started to develop nausea yesterday. She was able to obtain the SQ Octreotide outpatient with her last dose this am. Over the past 24 hours she has had multiple episodes of formed, black stool. She denies recent fever, chills, chest pain, SOB, abd pain, vomiting, diarrhea, dysuria (does make urine), hematuria, LE swelling and recent trauma. She confirmed she is a DNR/DNI and would want her daughter to make medical decisions for her if she could not make them herself. The patient was recently admitted to [facility] from 07/10-07/13 due to acute blood loss anemia from her upper GI bleed. During her admission she required 2 units of PRBCs and was also treated with a Protonix drip, famotidine, and octreotide. The patient recently had another EGD with Dr. Pacheco on 08/15. Findings included a medium-sized hiatial hernia, moderate gastric antral vascular ectasias in the stomach. Coagulation for hemostasis was obtained using argon plasma. She was discharged home with FU EGD in 2 weeks. Please refer to Dr. Stephens's attestation for any changes to the treatment plan Allergies Allergy/AdvReac Type Severity Reaction Status Date / Time sulfamethoxazole AdvReac Unknown REMOTE Verified 08/17/22 12:07 [From Bactrim] HX/PT NOT SURE REACTION trimethoprim [From Bactrim] AdvReac Unknown REMOTE Verified 08/17/22 12:07 HX/PT NOT SURE REACTION Home Medications Medication Instructions Recorded Confirmed Type cholecalciferol (vitamin D3) 25 2,000 unit PO QAM 05/29/18 08/20/22 History mcg (1,000 unit) capsule (Vitamin D3) blood sugar diagnostic (Blood #100 ea 10/12/20 08/20/22 Rx Glucose Test strips) cyanocobalamin (vitamin B-12) 1,000 mcg PO QAM 11/12/20 08/20/22 History 1,000 mcg tablet (Vitamin B-12) tamsulosin 0.4 mg capsule (Flomax) 0.4 mg PO QAM 11/12/20 08/20/22 History bethanechol chloride 50 mg tablet 50 mg PO BID #180 tabs 04/19/21 08/20/22 Rx Saccharomyces boulardii 250 mg 250 mg PO BID #180 caps 12/05/21 08/20/22 Rx capsule (Florastor) diaper,brief,adult,disposable #150 ea 12/07/21 08/20/22 Rx (Fitted Briefs X-Large) triamcinolone acetonide 0.05 % 1 applic topical BID #430 grams 01/18/22 08/20/22 Rx topical ointment furosemide 80 mg tablet 80 mg PO BID 03/20/22 08/20/22 History sevelamer carbonate 800 mg tablet 1,600 mg PO BIDWMEAL 03/20/22 08/20/22 History methocarbamol 500 mg tablet 500 mg PO TID PRN muscle spasm #90 05/03/22 08/20/22 Rx tabs calcium citrate 200 mg (950 mg) 400 mg PO QAM 05/29/22 08/20/22 History tablet loperamide 2 mg capsule 2 mg PO UD PRN Diarrhea 05/29/22 08/20/22 History estradiol 0.01% (0.1 mg/gram) 1 applic vaginal 3XWK 05/30/22 08/20/22 History vaginal cream vitamin E 268 mg (400 unit) capsule 268 mg PO QAM 05/30/22 08/20/22 History pantoprazole 40 mg tablet,delayed 40 mg PO BID #60 tabs 06/02/22 08/20/22 Rx release (Protonix) linagliptin 5 mg tablet (Tradjenta) 5 mg PO QAM #90 tabs 06/23/22 08/20/22 Rx octreotide acetate 50 mcg/mL 50 mcg subcut Q12H GAVE #25 mL 06/28/22 08/20/22 Rx injection solution amlodipine 5 mg tablet 5 mg PO QAM 07/10/22 08/20/22 History nystatin 100,000 unit/gram topical 1 applic topical BID 07/10/22 08/20/22 History powder levothyroxine 125 mcg capsule 125 mcg PO QAM 07/20/22 08/20/22 History famotidine 20 mg tablet 20 mg PO BID 3 months #180 tabs 07/21/22 08/20/22 Rx ropinirole 0.5 mg tablet 0.5 mg PO UD #90 tabs 08/07/22 08/20/22 Rx sucralfate 100 mg/mL oral 5 ml PO QID #400 mL 08/10/22 08/20/22 Rx suspension (Carafate) tramadol 50 mg tablet 50 mg PO BID PRN Pain #60 tabs 08/21/22 Rx Past Med/Surg History Medical History Anemia of chronic disease Anxiety Aortic stenosis Atrial fibrillation and flutter Atrial fibrillation, permanent CAD (coronary artery disease) Chronic diastolic heart failure Chronic hyponatremia Clostridioides difficile carrier Diabetes mellitus, type 2 Diabetic retinopathy ESRD on hemodialysis tuesdays, , and saturdays currently Essential tremor MINOR IN HAND Fatty liver First degree AV block GAVE (gastric antral vascular ectasia) GERD without esophagitis Hearing deficit no hearing aids Hemorrhoids Hiatal hernia History of CVA (cerebrovascular accident) (2019) ~5years ago, woke up with weakness in her rt hand; L lacunar infarct; previously on plavix>no residual effects History of GI bleed hx 08/2021, given transfusion-per medical record REASON FOR UPCOMING PROCEDURE History of recent hospitalization GI BLEED/LOW BLOOD COUNT/HX BLOOD TRANSFUSION - MAY 2022 - [facility] History of renal dialysis AND SAT ([facility] [place]/ACROSS FROM [facility]) ACCESS SITE RIGHT SIDE OF CHEST/ ? DETAILS Hx of atrial fibrillation, no current medication per medical report Hyperlipidemia Hypertension Hypothyroidism 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 Osteoarthritis Pancytopenia Poor historian RBBB f/u dr. aguirre Resistant hypertension Restless legs Secondary hyperparathyroidism of renal origin Urinary urgency Venous insufficiency Surgical History H/O varicose vein ligation History of back surgery (04/2010) X 2 History of bladder suspension procedure X 2 History of colonoscopy History of esophagogastroduodenoscopy (EGD) multiple---last 08/01/2022 @ [facility] 04/06/[address] [facility] with [address] Mich Pacheco- EGD- Gastric antral vascular ectasia with bleeding, treated with argon plasma coagulation (APC); Few angioectasias in the duodenum, treated with APC History of tooth extraction Hx of cardiac catheterization 08/2021, [facility] w/Dr. Moura for increased cardiac pressures; no stents S/P carpal tunnel release RT/LEFT S/P hysterectomy ANDRIA S/P knee replacement RT/LEFT S/P pericardiocentesis 08/2021, [facility], w/dr moura S/P trigger finger release Family History Father Alcohol abuse Heart disease Myocardial infarction Hypertension Sister Pancreatic cancer Diabetes Breast cancer Brother Diabetes Alcohol abuse Stroke Other Cancer No family history of adverse response to anesthesia Denies family history of Ovarian cancer Prostate cancer Colorectal cancer Social History Smoking Status: Never smoker Second Hand Exposure: No; Do You Dip or Chew Tobacco: No; Hx Alcohol Use: No Hx Substance Use: No Preferred Language: Malaysian Communication Ability: Effective Visual Impairment: No Limitations Hearing Ability: Normal Avionics Manager Required: No Beliefs That Will Affect Care: None marital status: Single Current Living Situation: Alone current occupational status: retired How many Children do You have: 2 Feels Safe at Home: Yes Safety Concerns: Feels Safe At This Time Childhood Exposure to Second-Hand Smoke: No Diet: regular Diet Comment: regular caffeine: Yes (Coffee x 2 cups per day.) during the past year weight has: remained stable Dental Care, Regularly: No Physical Activity Frequency: Does not Exercise Seatbelt Use: always Sunscreen Use: Yes Assistive Devices: Walker Physical Exam Physical Exam: Physical Exam: General: In no acute distress, stated age, chronically ill appearing but non- toxic HEENT: Normocephalic, atraumatic, no scleral icterus, pupils around round, symmetrical, and reactive to light, moist mucus membranes, trachea midline, no thyromegaly Chest/Pulm: Tunneled dialysis catheter located in the right upper chest without signs of infection, No respiratory distress, symmetrical chest expansion, clear breath sounds throughout Cardiac: irregular rate and rhythm, 4/6 systolic murmur noted Abdomen: Negative for ascites and bruising, normoactive bowel sounds, soft, non-tender to palpation throughout Musculoskeletal: Symmetrical and without signs of acute trauma, upper and lower extremities with full ROM, no atrophy, spasticity, or flaccidity Extremities: Radial, dorsalis pedis, and posterior tibial pulses are intact and symmetrical, no edema noted in the BL LE's Skin: Pale, Warm, dry, no rashes , lesions, or scars noted Neuro: Alert and oriented to person, place, month, year, and president, no focal defects, CN II-XII tested and intact, finger to nose test negative, no tremors noted Psych: No acute distress, calm and cooperative during the exam Results & Data Results & Data Vital Signs (Past 12 Hours) Vital Signs Temp Pulse Pulse Resp BP BP Pulse Ox 08/20/22 16:34 64 08/20/22 16:30 66 16 124/57 L 100 08/20/22 16:01 67 16 110/55 L 96 08/20/22 16:01 98 08/20/22 15:15 36.6 C 71 16 117/66 100 O2 Del Method 08/20/22 16:34 08/20/22 16:30 Room Air 08/20/22 16:01 Room Air 08/20/22 16:01 Room Air 08/20/22 15:15 Room Air Laboratory Results Abnormal lab results 08/20/22 08/20/22 08/20/22 Range/Units 15:28 15:28 15:28 WBC 3.02 L (4.8-10.8) K/ul RBC 1.80 L (4.20-5.40) M/uL Hgb 5.8 L* (12.0-16.0) g/dl POC Hgb (12.0-16.0) g/dl Hct 18.4 L* (37.0-47.0) % POC Hct (37-47) % MCV 102.2 H (80.0-100.0) fL MCHC 31.5 L (32.0-36.0) g/dL RDW Std Deviation 57.9 H (36.4-46.3) fL RDW Coeff of Irasema 15.7 H (11.5-14.5) % Plt Count 96 L (130-400) K/uL Lymph # (Auto) 0.67 L (1.2-3.4) K/uL Immature Gran # (Auto) 0.00 L (0.01-0.20) K/uL POC Chloride (101-112) mmol/L POC BUN (7-18) mg/dl BUN 53 H (6-23) mg/dl Creatinine 3.14 H (0.6-1.2) mg/dl POC Creatinine (0.6-1.3) mg/dl Glucose 107 H (70-99(Fasting)) mg/dl POC Glucose (other) (70-99) mg/dl Calcium 7.9 L (8.6-10.3) mg/dl POC Ioniz Calcium Verito (1.12-1.32) mmol/l Alkaline Phosphatase 256 H (34-104) U/L Troponin I High Sens 36.7 H (0-14) pg/ml Total Protein 4.9 L (6.0-8.3) gm/dl Albumin 3.0 L (3.4-5.0) gm/dl Globulin 1.9 L (2.5-4.0) gm/dl Crossmatch See Detail 08/20/22 Range/Units 15:36 WBC (4.8-10.8) K/ul RBC (4.20-5.40) M/uL Hgb (12.0-16.0) g/dl POC Hgb 6.8 L* (12.0-16.0) g/dl Hct (37.0-47.0) % POC Hct 20 L* (37-47) % MCV (80.0-100.0) fL MCHC (32.0-36.0) g/dL RDW Std Deviation (36.4-46.3) fL RDW Coeff of Irasema (11.5-14.5) % Plt Count (130-400) K/uL Lymph # (Auto) (1.2-3.4) K/uL Immature Gran # (Auto) (0.01-0.20) K/uL POC Chloride 98 L (101-112) mmol/L POC BUN 46 H (7-18) mg/dl BUN (6-23) mg/dl Creatinine (0.6-1.2) mg/dl POC Creatinine 3.5 H (0.6-1.3) mg/dl Glucose (70-99(Fasting)) mg/dl POC Glucose (other) 112 H (70-99) mg/dl Calcium (8.6-10.3) mg/dl POC Ioniz Calcium Verito 0.92 L (1.12-1.32) mmol/l Alkaline Phosphatase (34-104) U/L Troponin I High Sens (0-14) pg/ml Total Protein (6.0-8.3) gm/dl Albumin (3.4-5.0) gm/dl Globulin (2.5-4.0) gm/dl Crossmatch Diagnostic Findings Chest X-Ray 08/20/22 15:46 SINGLE VIEW CHEST CLINICAL HISTORY: Generalized weakness. FINDINGS: An AP, portable, upright chest radiograph is compared to study dated 07/10/2022. The examination is degraded by portable technique and patient rotation. A right sided central venous catheter is unchanged position. The heart is enlarged noting atherosclerotic calcification of the thoracic aorta. The pulmonary vasculature is noncongested. Chronic interstitial thickening is similar to previous. There are small pleural effusions, left larger than right with dependent consolidation. No airspace consolidation is seen typical for pneumonia. No pneumothorax is identified. The bony thorax is grossly intact. Arthritic change is seen in the shoulders, left significantly greater than righ t. Fusion hardware is noted at the thoracolumbar junction. IMPRESSION: 1. Cardiomegaly without radiographic evidence of congestive failure. 2. Left larger than right pleural effusions with dependent atelectasis. These are similar to previous. ACT 112: Negative or not required by law. Electronically signed by: Eulogio Gaspar M.D. 08/20/2022 3:59 PM ECG Additional Comments: Undetermined rhythm Right bundle branch block Abnormal ECG When compared with ECG of 10-JUL-2022 10:07, Current undetermined rhythm precludes rhythm comparison, needs review T wave inversion now evident in Anterior lead Code Status & VTE Plan Code Status DNR/DNI PG Care Time/CCT Total # of Minutes Spent Total Time Spent with Patient: Total time spent is greater than 50% in coordination of care (as documented) at patient's floor/unit and/or counseling patient: [place]oding [place] [address] INT INP/OBS CARE 3/75MIN Patient Type Established Medical Decision Making High Complexity Diagnoses ABLA (acute blood loss anemia) D62 Elevated troponin I level R77.8 ESRD (end stage renal disease) on dialysis N18.6; Z99.2 Pancytopenia D61.818 Neurogenic bladder N31.9 Diabetes mellitus type 2 with complications E11.8 Cirrhosis K74.60 (HFpEF) heart failure with preserved ejection fraction I50.30 Atrial fibrillation, permanent I48.21 Clostridioides difficile carrier Z22.1
[2022-08-20] MEDS ORDERED: cefTRIAXone SODIUM 1,000 MG in DEXTROSE 5% AD-VAN 50 ML IV STA (17:25)
[2022-08-20] MEDS ORDERED: GLUCOSE 40% GEL 15 GM TUBE PO PRN (18:02)
[2022-08-20] MEDS ORDERED: GLUCOSE 10 TAB/TUBE PO PRN (18:02)
[2022-08-20] MEDS ORDERED: GLUCAGON FOR INJ 1 MG VIAL SQ PRN (18:02)
[2022-08-20] MEDS ORDERED: CARBOHYDRATES FOR HYPOGLYCEMIA PO PRN (18:02)
[2022-08-20] MEDS ORDERED: DEXTROSE 50% 50 ML SYRINGE IV PRN (18:02)
[2022-08-20] MEDS ORDERED: traMADol HCL 50 MG TABLET PO PRN (18:28)
[2022-08-20] MEDS ORDERED: METHOCARBAMOL 500 MG TABLET PO PRN (18:28)
[2022-08-20] MEDS: INSULIN ASPART PER UNIT CHARGE SC SCH (18:53)
[2022-08-20 19:46] LABS: Phosphorus 4.6 mg/dl (2.5-4.9)
[2022-08-20] MEDS: OCTREOTIDE ACETATE 500 MCG in DEXTROSE 5% 100 ML IV SCH (20:09)
[2022-08-20] MEDS: rOPINIRole HCL 1 MG TABLET PO SCH (20:43)
[2022-08-20] MEDS: BETHANECHOL CHL 25 MG TAB PO SCH (20:47)
[2022-08-20] MEDS: LANTUS PER UNIT CHARGE SQ SCH (20:53)
[2022-08-21] MEDS: INSULIN ASPART PER UNIT CHARGE SC SCH ×4 (00:10→16:46)
[2022-08-21 01:06] LABS: Basophils # (auto) 0.05 K/uL (0-0.2); Basophils % (auto) 1.3 %; Eosinophils % (auto) 2.7 %; Hemoglobin 8.5 g/dl (12.0-16.0); Immature Granulocytes # (auto) 0.02 K/uL (0.01-0.20); Immature Granulocytes % (auto) 0.5 %; Lymphocytes # (auto) 0.65 K/uL (1.2-3.4); Lymphocytes % (auto) 17.3 %; Mean Corpuscular Hemoglobin 31.3 pg (25.0-34.0); Mean Corpuscular Hgb Conc 32.7 g/dL (32.0-36.0); Mean Corpuscular Volume 95.6 fL (80.0-100.0); Mean Platelet Volume 11.2 fL (9.4-12.4); Monocytes # (auto) 0.27 K/uL (0.11-0.59); Monocytes % (auto) 7.2 %; Neutrophils # (auto) 2.66 K/uL (1.40-6.50); Platelet Count 95 K/uL (130-400); RDW Coefficient of Variation 18.1 % (11.5-14.5); RDW Standard Deviation 61.8 fL (36.4-46.3); Red Blood Count 2.72 M/uL (4.20-5.40); White Blood Count 3.75 K/ul (4.8-10.8)
[2022-08-21] MEDS: OCTREOTIDE ACETATE 500 MCG in DEXTROSE 5% 100 ML IV SCH ×3 (04:54→23:28)
[2022-08-21 06:36] LABS: Basophils # (auto) 0.03 K/uL (0-0.2); Basophils % (auto) 0.7 %; Eosinophils # (auto) 0.12 K/uL (0-0.50); Eosinophils % (auto) 2.9 %; Hematocrit (blood only) 26.5 % (37.0-47.0); Hemoglobin 8.7 g/dl (12.0-16.0); Immature Granulocytes # (auto) 0.02 K/uL (0.01-0.20); Immature Granulocytes % (auto) 0.5 %; Lymphocytes # (auto) 0.63 K/uL (1.2-3.4); Lymphocytes % (auto) 15.1 %; Mean Corpuscular Hemoglobin 31.4 pg (25.0-34.0); Mean Corpuscular Hgb Conc 32.8 g/dL (32.0-36.0); Mean Corpuscular Volume 95.7 fL (80.0-100.0); Mean Platelet Volume 11.2 fL (9.4-12.4); Monocytes # (auto) 0.22 K/uL (0.11-0.59); Monocytes % (auto) 5.3 %; Neutrophils # (auto) 3.15 K/uL (1.40-6.50); Neutrophils % (auto) 75.5 %; Platelet Count 111 K/uL (130-400); RDW Coefficient of Variation 18.6 % (11.5-14.5); RDW Standard Deviation 64.4 fL (36.4-46.3); Red Blood Count 2.77 M/uL (4.20-5.40); White Blood Count 4.17 K/ul (4.8-10.8)
[2022-08-21] MEDS: LEVOTHYROXINE SODIUM 125 MCG TABLET PO SCH (06:45)
[2022-08-21 06:51] LABS: Albumin Globulin Ratio 1.6 (0.9-2); Albumin Level 2.8 gm/dl (3.4-5.0); BUN Creatinine Ratio 15.6 (10-20); Bilirubin,Total 0.8 mg/dl (0.2-1.0); Calcium 7.8 mg/dl (8.6-10.3); Creatinine Clr Calc Pharmacy 9.2 ml/min; Est GFR (African American) 12.8 ml/min; Est GFR (Non-African American) 11.1 ml/min; Globulin 1.8 gm/dl (2.5-4.0); Magnesium 1.9 mg/dl (1.7-2.4); Phosphorus 4.5 mg/dl (2.5-4.9); Potassium 4.4 mmol/L (3.5-5.1); Total Protein 4.6 gm/dl (6.0-8.3)
[2022-08-21 06:58] LABS: INR 1.1 (0.9-1.1); Prothrombin Time 11.5 Seconds (9.0-12.0)
[2022-08-21] MEDS: TAMSULOSIN HCL 0.4 MG CAP PO SCH ×2 (08:35→10:44)
[2022-08-21] MEDS: LANTUS PER UNIT CHARGE SQ SCH ×2 (08:35→20:48)
[2022-08-21] MEDS: BETHANECHOL CHL 25 MG TAB PO SCH ×3 (08:35→20:50)
--- NOTE | 2022-08-21 09:45 | Gastrointestinal Consultation ---
Date of Consultation August 21, 2022 Assessment & Plan (1) ABLA (acute blood loss anemia): (2) GAVE (gastric antral vascular ectasia): Plan Patient is an 82 yo with recurrent GI bleeding and anemia secondary to GAVE. She has required frequent EGDs every 2 weeks with APC, however her last EGD was on 08/15/22. She is on Protonix, Carafate, & Octreotide as an outpatient. -Continue to monitor H/H -IV Protonix 40 mg BID -Continue Octreotide 50 mcg SC q 12 hours -Liquid diet today, NPO after midnight -EGD on 08/22/22 History of Present Illness Reason for Consultation: Acute anemia from ongoing GI blood loss Attending Physician: Rafael Monroe MD History of Present Illness Patient is an 82 yo female with ESRD on HD & GAVE requiring recurrent EGDs q 2 weeks, PPI use, Carafate, & daily Octreotide. She presented to the ED with weakness & fatigue, concerned for worsening anemia. H/H upon presentation was 5.8/18.4. She received 2 units PRBCs. H/H presently 8.7/26.5. She notes she is feeling better today. She denies abdominal pain or melena. No hematemesis. Last EGD with APC was on 08/15/22. Patient has a pending evaluation in October with a tertiary center due to her significant GAVE. Allergies Allergy/AdvReac Type Severity Reaction Status Date / Time sulfamethoxazole AdvReac Unknown REMOTE Verified 08/17/22 12:07 [From Bactrim] HX/PT NOT SURE REACTION trimethoprim [From Bactrim] AdvReac Unknown REMOTE Verified 08/17/22 12:07 HX/PT NOT SURE REACTION Home Medications Medication Instructions Recorded Confirmed Type cholecalciferol (vitamin D3) 25 2,000 unit PO QAM 05/29/18 08/20/22 History mcg (1,000 unit) capsule (Vitamin D3) blood sugar diagnostic (Blood #100 ea 10/12/20 08/20/22 Rx Glucose Test strips) cyanocobalamin (vitamin B-12) 1,000 mcg PO QAM 11/12/20 08/20/22 History 1,000 mcg tablet (Vitamin B-12) tamsulosin 0.4 mg capsule (Flomax) 0.4 mg PO QAM 11/12/20 08/20/22 History bethanechol chloride 50 mg tablet 50 mg PO BID #180 tabs 04/19/21 08/20/22 Rx Saccharomyces boulardii 250 mg 250 mg PO BID #180 caps 12/05/21 08/20/22 Rx capsule (Florastor) diaper,brief,adult,disposable #150 ea 12/07/21 08/20/22 Rx (Fitted Briefs X-Large) triamcinolone acetonide 0.05 % 1 applic topical BID #430 grams 01/18/22 08/20/22 Rx topical ointment furosemide 80 mg tablet 80 mg PO BID 03/20/22 08/20/22 History sevelamer carbonate 800 mg tablet 1,600 mg PO BIDWMEAL 03/20/22 08/20/22 History methocarbamol 500 mg tablet 500 mg PO TID PRN muscle spasm #90 05/03/22 08/20/22 Rx tabs calcium citrate 200 mg (950 mg) 400 mg PO QAM 05/29/22 08/20/22 History tablet loperamide 2 mg capsule 2 mg PO UD PRN Diarrhea 05/29/22 08/20/22 History estradiol 0.01% (0.1 mg/gram) 1 applic vaginal 3XWK 05/30/22 08/20/22 History vaginal cream tramadol 50 mg tablet 50 mg PO BID PRN Pain 05/30/22 08/20/22 History vitamin E 268 mg (400 unit) capsule 268 mg PO QAM 05/30/22 08/20/22 History pantoprazole 40 mg tablet,delayed 40 mg PO BID #60 tabs 06/02/22 08/20/22 Rx release (Protonix) linagliptin 5 mg tablet (Tradjenta) 5 mg PO QAM #90 tabs 06/23/22 08/20/22 Rx octreotide acetate 50 mcg/mL 50 mcg subcut Q12H GAVE #25 mL 06/28/22 08/20/22 Rx injection solution amlodipine 5 mg tablet 5 mg PO QAM 07/10/22 08/20/22 History nystatin 100,000 unit/gram topical 1 applic topical BID 07/10/22 08/20/22 History powder levothyroxine 125 mcg capsule 125 mcg PO QAM 07/20/22 08/20/22 History famotidine 20 mg tablet 20 mg PO BID 3 months #180 tabs 07/21/22 08/20/22 Rx ropinirole 0.5 mg tablet 0.5 mg PO UD #90 tabs 08/07/22 08/20/22 Rx sucralfate 100 mg/mL oral 5 ml PO QID #400 mL 08/10/22 08/20/22 Rx suspension (Carafate) Patient History Medical History Anemia of chronic disease Anxiety Aortic stenosis Atrial fibrillation and flutter Atrial fibrillation, permanent CAD (coronary artery disease) Chronic diastolic heart failure Chronic hyponatremia Clostridioides difficile carrier Diabetes mellitus, type 2 Diabetic retinopathy ESRD on hemodialysis tuesdays, , and saturdays currently Essential tremor MINOR IN HAND Fatty liver First degree AV block GAVE (gastric antral vascular ectasia) GERD without esophagitis Hearing deficit no hearing aids Hemorrhoids Hiatal hernia History of CVA (cerebrovascular accident) (2019) ~5years ago, woke up with weakness in her rt hand; L lacunar infarct; p reviously on plavix>no residual effects History of GI bleed hx 08/2021, given transfusion-per medical record REASON FOR UPCOMING PROCEDURE History of recent hospitalization GI BLEED/LOW BLOOD COUNT/HX BLOOD TRANSFUSION - MAY 2022 - [facility] History of renal dialysis AND SAT ([facility] [place]/ACROSS FROM [facility]) ACCESS SITE RIGHT SIDE OF CHEST/ ? DETAILS Hx of atrial fibrillation, no current medication per medical report Hyperlipidemia Hypertension Hypothyroidism 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 Osteoarthritis Pancytopenia Poor historian RBBB f/u dr. aguirre Resistant hypertension Restless legs Secondary hyperparathyroidism of renal origin Urinary urgency Venous insufficiency Surgical History H/O varicose vein ligation History of back surgery (04/2010) X 2 History of bladder suspension procedure X 2 History of colonoscopy History of esophagogastroduodenoscopy (EGD) multiple---last 08/01/2022 @ [facility] 04/06/22 at [facility] with Dr. Mich Pacheco- EGD- Gastric antral vascular ectasia with bleeding, treated with argon plasma coagulation (APC); Few angioectasias in the duodenum, treated with APC History of tooth extraction Hx of cardiac catheterization 08/2021, [facility] w/Dr. Moura for increased cardiac pressures; no stents S/P carpal tunnel release RT/LEFT S/P hysterectomy ANDRIA S/P knee replacement RT/LEFT S/P pericardiocentesis 08/2021, [facility], w/dr moura S/P trigger finger release Family History Father Alcohol abuse Heart disease Myocardial infarction Hypertension Sister Pancreatic cancer Diabetes Breast cancer Brother Diabetes Alcohol abuse Stroke Other Cancer No family history of adverse response to anesthesia Denies family history of Ovarian cancer Prostate cancer Colorectal cancer Social History Smoking Status: Never smoker Second Hand Exposure: No; Do You Dip or Chew Tobacco: No; Tobacco Cessation Education Requested by Patient: No Hx Alcohol Use: No Hx Substance Use: No Preferred Language: Pashto Communication Ability: Effective Visual Impairment: No Limitations Hearing Ability: Normal 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 Required: No Beliefs That Will Affect Care: None marital status: Single Current Living Situation: Alone current occupational status: retired How many Children do You have: 2 Other Information That Helps Us Care for You: No Feels Safe at Home: Yes Safety Concerns: Feels Safe At This Time Childhood Exposure to Second-Hand Smoke: No Diet: regular Diet Comment: regular caffeine: Yes (Coffee x 2 cups per day.) during the past year weight has: remained stable Dental Care, Regularly: No Physical Activity Frequency: Does not Exercise Seatbelt Use: always Sunscreen Use: Yes Assistive Devices: Denture - Upper, Denture - Lower, Glasses and Walker Review of Systems Constitutional: no fever and no chills Respiratory: no cough and no dyspnea Cardiovascular: no chest pain Gastrointestinal: no abdominal pain, no coffee ground emesis, no hematemesis, no blood in stools and no melena Musculoskeletal: no problem reported Psychiatric: no problem reported Physical Exam Constitutional: well developed Neck: normal visual inspection Respiratory: normal respiratory effort Cardiovascular: Rate/Rhythm: regular rate Gastrointestinal (Abdomen): normal bowel sounds, soft, nontender, no hepatosplenomegaly Musculoskeletal: Head/Neck/Chest: normocephalic Psychiatric: Orientation: alert and oriented x 3 Results & Data Vital Signs (Past 12 Hours) Vital Signs Temp Pulse Pulse Resp BP BP Pulse Ox 08/21/22 07:06 36.6 C 70 18 139/65 98 08/21/22 03:00 36.5 C 71 18 151/66 H 99 08/20/22 22:36 36.5 C 65 14 126/60 95 08/21/22 00:02 56 L 08/20/22 23:14 36.6 C 67 18 135/66 99 08/20/22 22:36 36.5 C 65 14 126/60 95 08/20/22 22:17 36.5 C 75 14 126/54 L 98 O2 Del Method 08/21/22 07:06 Room Air 08/21/22 03:00 Room Air 08/20/22 22:36 08/21/22 00:02 08/20/22 23:14 Room Air 08/20/22 22:36 08/20/22 22:17 PG Care Time/CCT Total # of Minutes Spent Total Time Spent with Patient: Total time spent is greater than 50% in coordination of care (as documented) at patient's floor/unit and/or counseling patient: Coding Level of Care Code 68102 INT INP/OBS CARE 3/75MIN Diagnoses ABLA (acute blood loss anemia) D62 GAVE (gastric antral vascular ectasia) K31.819
[2022-08-21] MEDS ORDERED: NYSTATIN POWDER 15GM BTL EXT PRN (10:08)
--- NOTE | 2022-08-21 10:33 | Hospitalist Progress Note ---
Date of Service August 21, 2022 Assessment & Plan (1) ABLA (acute blood loss anemia): Plan: -Patient has recurrent upper GI bleeding from gastric antral vascular ectasia -S/P EGD with Dr. Pacheco on 08/15 with hgb of 9.7 on 08/10 -Has been having black stool again -Hgb on admission 5.8, -Now s/p 2 units PRBC , Hb currently 8.7 -Contiue Protonix and Octreotide -Will start Ceftriaxone with her HX of cirrhosis, upper GI bleed, and Varices -For EGD today (2) Elevated troponin I level: Plan: -Initial high sen trop elevated at 36 -Patient is asymptomatic, no acute ST segment changes but does have some t-wave inversions in the anterior leads -Elevation is likely a combination of demand from her severe anemia and ESRD status causing a falsely elevated level -Will repeat STAT 2 hour trop now, continue to monitor on tele (3) ESRD (end stage renal disease) on dialysis: Plan: -Patient is on HD TTSat -Had a full session yesterday -Renal function and electrolytes stable besides her ionized calcium of 0.92 -Will obtain a Phos level -Nephrology consulted to follow while admitted in case of HD (4) Pancytopenia: Plan: -Due to a combination of her chronic diseases and recurrent GI bleeds -Continue to trend CBC with diff (5) Neurogenic bladder: Plan: -Continue bethanechol chloride (6) Diabetes mellitus type 2 with complications: Plan: -Hold Tradjenta -Monitor BSG q6h, goal is 110-160 -Start 5 units BID, CF 50 q6h for now -Adjust regimen as needed (7) Cirrhosis: Plan: -Stable -Will hold lasix for now to prevent hypotension with current bleed (8) (HFpEF) heart failure with preserved ejection fraction: Plan: -Currently Euvolemic -Hold amlodipine for now to prevent hypotension (9) Atrial fibrillation, permanent: Plan: -Stable -Not on anticoagulation due to recurrent GI bleeds and anemia -Rate controlled off AV jolie blocking agents -Continue to monitor on tele (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: Plan: -Known to be a carrier but is without diarrhea at this time -Still not interested and prophylactic treatment Plan continue hospitalization Admission and Anticipated Discharge Date Admission Date: August 20, 2022 Subjective patient seen and examined, waiting for EGD, denies any new complaints Review of Systems Review of Systems: All systems reviewed are negative, apart from the ones contained in the history. Physical Exam Physical Exam: The patient is awake, alert and oriented 3, well developed and well nourished, normocephalic and atraumatic, lying in bed and in no acute distress. HEENT--PERRL, EOMI, mucous membranes and oropharynx mildly dry Neck--supple. No JVD. No bruits. Thyroid normal, trachea midline, no adenopathy. Heart--normal S1 and S2. No murmurs, rubs or gallops. Lungs--clear bilaterally, no respiratory distress, no accessory muscle use. Abdomen--normal bowel sounds and soft. Mild epigastric and left sided abdominal pain Extremities--no cyanosis or clubbing. No edema. Dermatologic--normal skin turgor, normal color, no abnormal lymph nodes, no rash. Neurologic--cranial nerves II through XII grossly intact. Rheumatologic--normal range of motion. Psychiatric--normal affect. Results & Data Results & Data Vital Signs (Past 12 Hours) Vital Signs Temp Pulse Pulse Resp BP BP Pulse Ox 08/21/22 07:06 97.9 F 70 18 139/65 98 08/21/22 03:00 97.7 F 71 18 151/66 H 99 08/20/22 22:36 97.7 F 65 14 126/60 95 08/21/22 00:02 56 L 08/20/22 23:14 97.9 F 67 18 135/66 99 08/20/22 22:36 97.7 F 65 14 126/60 95 O2 Del Method 08/21/22 07:06 Room Air 08/21/22 03:00 Room Air 08/20/22 22:36 08/21/22 00:02 08/20/22 23:14 Room Air 08/20/22 22:36 PG Care Time/CCT Total # of Minutes Spent Total Time Spent with Patient: Total time spent is greater than 50% in coordination of care (as documented) at patient's floor/unit and/or counseling patient: Coding Level of Care Code 29950 SUB INP/OBS CARE 2/35MIN Diagnoses ABLA (acute blood loss anemia) D62 Elevated troponin I level R77.8 ESRD (end stage renal disease) on dialysis N18.6; Z99.2 Pancytopenia D61.818 Neurogenic bladder N31.9 Diabetes mellitus type 2 with complications E11.8 Cirrhosis K74.60 (HFpEF) heart failure with preserved ejection fraction I50.30 Atrial fibrillation, permanent I48.21 Clostridioides difficile carrier Z22.1 Time Spent (min) 35
[2022-08-21] MEDS: PANTOprazole 40 MG in SYRINGE 0 ML IV SCH ×2 (10:44→20:49)
[2022-08-21] MEDS: SUCRALFATE 1 GM/10 ML UDC PO SCH ×3 (10:44→20:49)
[2022-08-21 12:05] LABS: Basophils # (auto) 0.03 K/uL (0-0.2); Basophils % (auto) 0.7 %; Eosinophils # (auto) 0.09 K/uL (0-0.50); Eosinophils % (auto) 2.1 %; Hematocrit (blood only) 27.4 % (37.0-47.0); Hemoglobin 9.1 g/dl (12.0-16.0); Immature Granulocytes # (auto) 0.02 K/uL (0.01-0.20); Immature Granulocytes % (auto) 0.5 %; Lymphocytes # (auto) 0.61 K/uL (1.2-3.4); Lymphocytes % (auto) 14.4 %; Mean Corpuscular Hemoglobin 31.3 pg (25.0-34.0); Mean Corpuscular Hgb Conc 33.2 g/dL (32.0-36.0); Mean Corpuscular Volume 94.2 fL (80.0-100.0); Monocytes # (auto) 0.26 K/uL (0.11-0.59); Monocytes % (auto) 6.1 %; Neutrophils # (auto) 3.22 K/uL (1.40-6.50); Neutrophils % (auto) 76.2 %; Platelet Count 105 K/uL (130-400); RDW Coefficient of Variation 18.6 % (11.5-14.5); RDW Standard Deviation 63.9 fL (36.4-46.3); Red Blood Count 2.91 M/uL (4.20-5.40); White Blood Count 4.23 K/ul (4.8-10.8)
--- NOTE | 2022-08-21 12:46 | Nephrology Consultation ---
Date of Consultation August 21, 2022 Assessment & Plan (1) ESRD (end stage renal disease) on dialysis: (2) GAVE (gastric antral vascular ectasia): (3) ABLA (acute blood loss anemia): Plan ESRD, on hemodialysis via Right IJ tunneled dialysis catheter on TTS at [facility]. Has history of GI bleeding with GAVE, presented with generalized weakness and in ER hemoglobin was 5.8, receive 2 units of PRBC yesterday and hemoglobin improved to >9 this morning. Blood pressure, volume status and electrolyte acceptable. Feeling better -- plan for HD tomorrow as regular TTS schedule. --Continue on low-potassium, low phosphorus diet, continue on Renvela with me als --Dose medications for eGFR less than 10, recommend decreasing Famotidine dose to max 20 mg/d and give after HD on HD days. -- agree with palliative care consult for goals of care with ongoing GIB, repeated hospitalization, blood transfusion and endoscopy. Will follow Thank you for allowing me to participate in your patient's care. It was a pleasure to see Sully. History of Present Illness Reason for Consultation: ESRD on HD. Attending Physician: Rafael Monroe MD History of Present Illness Mrs. Sully Faria is a 82 year-old female with ESRD on HD, chronic GI bleeding with h/o GAVE, admitted to the hospital with anemia. Nephrology consult was requested to provide hemodialysis. EMR records were reviewed in detail in patient's visit. Sully presented to the ER yesterday with generalized weakness, repeated episodes of dark stool and feeling poorly. She did not notice any significant shortness of breath or chest pain,bright red per rectum over last few days although has been having diarrhea. Her hemoglobin was 5.8 on admission , s/p 2 PRBC and Hb improved to 9.1 this morning. She was otherwise hemodynamically stable. She was evaluated by GI this morning and plan for EGD tomorrow. She has known history of GAVE causing significant blood loss anemia requiring frequent hospitalization, EGD, GAVE treated with APC. She was restarted on Carafate recently in addition to sq octreotide. Last blood transfusion was approximately August 09 and Hb did improve to 9.2 after transfusion. Had dialysis Sunday. She also has known internal hemorrhoids noted on colonoscopy on 05/12/22. She is s cheduled to see Gastroenterology at [facility] in October. ESRD secondary to hypertension, DKD, and renovascular disease started on hemodialysis during hospitalization at [facility] in August 2021, on TTS HD at [facility] via [facility], refused AVF. IDWG typically low and she continues to make a good amount of urine. Medical history is also notable for non-obstructive coronary artery disease, HFpEF, severe aortic stenosis, atrial fibrillation, chronic anemia with GIB, imaging evidence of cirrhosis, NAFLD, hypertension, diabetes mellitus type II, neurogenic bladder, OA/DJD, and hypothyroidism. She has been feeling better but extremely frustrated with the need for frequent hospitalization, EGD and transfusion, " I would rather " but again she mentioned that she has upcoming appointment with Gastroenterology at a tertiary care facility in October. Allergies Allergy/AdvReac Type Severity Reaction Status Date / Time sulfamethoxazole AdvReac Unknown REMOTE Verified 08/17/22 12:07 [From Bactrim] HX/PT NOT SURE REACTION trimethoprim [From Bactrim] AdvReac Unknown REMOTE Verified 08/17/22 12:07 HX/PT NOT SURE REACTION Home Medications Medication Instructions Recorded Confirmed Type cholecalciferol (vitamin D3) 25 2,000 unit PO QAM 05/29/18 08/20/22 History mcg (1,000 unit) capsule (Vitamin D3) blood sugar diagnostic (Blood #100 ea 10/12/20 08/20/22 Rx Glucose Test strips) cyanocobalamin (vitamin B-12) 1,000 mcg PO QAM 11/12/20 08/20/22 History 1,000 mcg tablet (Vitamin B-12) tamsulosin 0.4 mg capsule (Flomax) 0.4 mg PO QAM 11/12/20 08/20/22 History bethanechol chloride 50 mg tablet 50 mg PO BID #180 tabs 04/19/21 08/20/22 Rx Saccharomyces boulardii 250 mg 250 mg PO BID #180 caps 12/05/21 08/20/22 Rx capsule (Florastor) diaper,brief,adult,disposable #150 ea 12/07/21 08/20/22 Rx (Fitted Briefs X-Large) triamcinolone acetonide 0.05 % 1 applic topical BID #430 grams 01/18/22 08/20/22 Rx topical ointment furosemide 80 mg tablet 80 mg PO BID 03/20/22 08/20/22 History sevelamer carbonate 800 mg tablet 1,600 mg PO BIDWMEAL 03/20/22 08/20/22 History methocarbamol 500 mg tablet 500 mg PO TID PRN muscle spasm #90 05/03/22 08/20/22 Rx tabs calcium citrate 200 mg (950 mg) 400 mg PO QAM 05/29/22 08/20/22 History tablet loperamide 2 mg capsule 2 mg PO UD PRN Diarrhea 05/29/22 08/20/22 History estradiol 0.01% (0.1 mg/gram) 1 applic vaginal 3XWK 05/30/22 08/20/22 History vaginal cream vitamin E 268 mg (400 unit) capsule 268 mg PO QAM 05/30/22 08/20/22 History pantoprazole 40 mg tablet,delayed 40 mg PO BID #60 tabs 06/02/22 08/20/22 Rx release (Protonix) linagliptin 5 mg tablet (Tradjenta) 5 mg PO QAM #90 tabs 06/23/22 08/20/22 Rx octreotide acetate 50 mcg/mL 50 mcg subcut Q12H GAVE #25 mL 06/28/22 08/20/22 Rx injection solution amlodipine 5 mg tablet 5 mg PO QAM 07/10/22 08/20/22 History nystatin 100,000 unit/gram topical 1 applic topical BID 07/10/22 08/20/22 History powder levothyroxine 125 mcg capsule 125 mcg PO QAM 07/20/22 08/20/22 History famotidine 20 mg tablet 20 mg PO BID 3 months #180 tabs 07/21/22 08/20/22 Rx ropinirole 0.5 mg tablet 0.5 mg PO UD #90 tabs 08/07/22 08/20/22 Rx sucralfate 100 mg/mL oral 5 ml PO QID #400 mL 08/10/22 08/20/22 Rx suspension (Carafate) tramadol 50 mg tablet 50 mg PO BID PRN Pain #60 tabs 08/21/22 Rx Patient History Medical History Anemia of chronic disease Anxiety Aortic stenosis Atrial fibrillation and flutter Atrial fibrillation, permanent CAD (coronary artery disease) Chronic diastolic heart failure Chronic hyponatremia Clostridioides difficile carrier Diabetes mellitus, type 2 Diabetic retinopathy ESRD on hemodialysis tuesdays, , and saturdays currently Essential tremor MINOR IN HAND Fatty liver First degree AV block GAVE (gastric antral vascular ectasia) GERD without esophagitis Hearing deficit no hearing aids Hemorrhoids Hiatal hernia History of CVA (cerebrovascular accident) (2019) ~5years ago, woke up with weakness in her rt hand; L lacunar infarct; previously on plavix>no residual effects History of GI bleed hx 08/2021, given transfusion-per medical record REASON FOR UPCOMING PROCEDURE History of recent hospitalization GI BLEED/LOW BLOOD COUNT/HX BLOOD TRANSFUSION - MAY 2022 - [facility] History of renal dialysis AND SAT ([facility] [place]/ACROSS FROM [facility]) ACCESS SITE RIGHT SIDE OF CHEST/ ? DETAILS Hx of atrial fibrillation, no current medication per medical report Hyperlipidemia Hypertension Hypothyroidism 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 Osteoarthritis Pancytopenia Poor historian RBBB f/u dr. aguirre Resistant hypertension Restless legs Secondary hyperparathyroidism of renal origin Urinary urgency Venous insufficiency Surgical History H/O varicose vein ligation History of back surgery (04/2010) X 2 History of bladder suspension procedure X 2 History of colonoscopy History of esophagogastroduodenoscopy (EGD) multiple---last 08/01/2022 @ [facility] 04/06/22 at [facility] with Dr. Mich Pacheco- EGD- Gastric antral vascular ectasia with bleeding, treated with argon plasma coagulation (APC); Few angioectasias in the duodenum, treated with APC History of tooth extraction Hx of cardiac catheterization 08/2021, [facility] w/Dr. Moura for increased cardiac pressures; no stents S/P carpal tunnel release RT/LEFT S/P hysterectomy ANDRIA S/P knee replacement RT/LEFT S/P pericardiocentesis 08/2021, [facility], w/dr moura S/P trigger finger release Family History Father Alcohol abuse Heart disease Myocardial infarction Hypertension Sister Pancreatic cancer Diabetes Breast cancer Brother Diabetes Alcohol abuse Stroke Other Cancer No family history of adverse response to anesthesia Denies family history of Ovarian cancer Prostate cancer Colorectal cancer Social History Smoking Status: Never smoker Second Hand Exposure: No; Do You Dip or Chew Tobacco: No; Tobacco Cessation Education Requested by Patient: No Hx Alcohol Use: No Hx Substance Use: No Preferred Language: Bahamian Communication Ability: Effective Visual Impairment: No Limitations Hearing Ability: Normal Tan Room Supervisor Required: No Beliefs That Will Affect Care: None marital status: Single Current Living Situation: Alone current occupational status: retired How many Children do You have: 2 Other Information That Helps Us Care for You: No Feels Safe at Home: Yes Safety Concerns: Feels Safe At This Time Childhood Exposure to Second-Hand Smoke: No Diet: regular Diet Comment: regular caffeine: Yes (Coffee x 2 cups per day.) during the past year weight has: remained stable Dental Care, Regularly: No Physical Activity Frequency: Does not Exercise Seatbelt Use: always Sunscreen Use: Yes Assistive Devices: Denture - Upper, Denture - Lower, Glasses and Walker Review of Systems Review of Systems: Detailed ROS was otherwise unremarkable. Physical Exam Constitutional: WD/WN, vitals as above + ill appearing; no acute distress Eyes: + anicteric sclerae Neck: normal visual inspection Respiratory: no respiratory distress Auscultation: lungs clear to auscultation bilaterally Cardiovascular: RRR, no murmur, no edema Gastrointestinal (Abdomen): Inspection/Auscultation: abdomen normal to inspection and normal bowel sounds Percussion/Palpation: abdomen soft; abdom en nontender, no guarding and abdomen not rigid Musculoskeletal: Extremities: extremities normal to inspection Skin: no rashes, warm and dry Neurologic: no focal motor deficits and not confused Psychiatric: Orientation: alert and oriented x 3 Affect: euthymic affect Results & Data Vital Signs (Past 12 Hours) Vital Signs Temp Pulse Resp BP Pulse Ox O2 Del Method 08/21/22 10:51 36.5 C 67 16 144/65 H 99 Room Air 08/21/22 07:06 36.6 C 70 18 139/65 98 Room Air 08/21/22 03:00 36.5 C 71 18 151/66 H 99 Room Air PG Care Time/CCT Total # of Minutes Spent Total Time Spent with Patient: Total time spent is greater than 50% in coordination of care (as documented) at patient's floor/unit and/or counseling patient: Coding Level of Care Code 24738 INT INP/OBS CARE Diagnoses ESRD (end stage renal disease) on dialysis N18.6; Z99.2 GAVE (gastric antral vascular ectasia) K31.819 ABLA (acute blood loss anemia) D62
--- NOTE | 2022-08-21 13:03 | Electrocardiogram Report ---
Test Reason : Blood Pressure : / mmHG Vent. Rate : 063 BPM Atrial Rate : 078 BPM P-R Int : 000 ms QRS Dur : 130 ms QT Int : 458 ms P-R-T Axes : 000 -23 011 degrees QTc Int : 468 ms Poor data quality, interpretation may be adversely affected Sinus rhythm with 2nd degree A-V block (Mobitz I) Right bundle branch block Abnormal ECG When compared with ECG of 10-JUL-2022 10:07, Sinus rhythm has replaced Atrial fibrillation Confirmed by Andres Agudelo ([id number]) on 08/21/2022 1:03:12 PM Referred By: Confirmed By:Andres Agudelo
--- NOTE | 2022-08-21 13:23 | Electrocardiogram Report ---
Test Reason : Blood Pressure : / mmHG Vent. Rate : 064 BPM Atrial Rate : 076 BPM P-R Int : 000 ms QRS Dur : 128 ms QT Int : 466 ms P-R-T Axes : 000 -24 010 degrees QTc Int : 480 ms Normal sinus rhythm with 2nd degree A-V block (Mobitz I) Right bundle branch block Abnormal ECG When compared with ECG of 21-AUG-2022 00:14, (unconfirmed) No significant change Confirmed by Andres Agudelo ([id number]) on 08/21/2022 1:23:19 PM Referred By: REFERRED SELF Confirmed By:Andres Agudelo
--- NOTE | 2022-08-21 13:23 | Electrocardiogram Report ---
Test Reason : Blood Pressure : / mmHG Vent. Rate : 064 BPM Atrial Rate : 078 BPM P-R Int : 000 ms QRS Dur : 132 ms QT Int : 464 ms P-R-T Axes : 102 -23 009 degrees QTc Int : 478 ms Sinus rhythm with 2nd degree A-V block (Mobitz I) Right bundle branch block Abnormal ECG When compared with ECG of 20-AUG-2022 15:24, (unconfirmed) No significant change Confirmed by Andres Agudelo ([id number]) on 08/21/2022 1:22:48 PM Referred By: REFERRED SELF Confirmed By:Andres Agudelo
[2022-08-21] MEDS: rOPINIRole HCL 0.25 MG TABLET PO SCH (13:34)
[2022-08-21] MEDS ORDERED: rOPINIRole HCL 0.25 MG TABLET PO SCH (14:00)
[2022-08-21 17:51] LABS: Basophils # (auto) 0.04 K/uL (0-0.2); Basophils % (auto) 0.9 %; Eosinophils % (auto) 2.2 %; Hematocrit (blood only) 26.8 % (37.0-47.0); Hemoglobin 8.9 g/dl (12.0-16.0); Immature Granulocytes # (auto) 0.02 K/uL (0.01-0.20); Immature Granulocytes % (auto) 0.4 %; Lymphocytes # (auto) 0.65 K/uL (1.2-3.4); Lymphocytes % (auto) 14.2 %; Mean Corpuscular Hemoglobin 31.9 pg (25.0-34.0); Mean Corpuscular Hgb Conc 33.2 g/dL (32.0-36.0); Mean Corpuscular Volume 96.1 fL (80.0-100.0); Mean Platelet Volume 11.1 fL (9.4-12.4); Monocytes # (auto) 0.26 K/uL (0.11-0.59); Monocytes % (auto) 5.7 %; Neutrophils # (auto) 3.51 K/uL (1.40-6.50); Neutrophils % (auto) 76.6 %; Platelet Count 114 K/uL (130-400); RDW Coefficient of Variation 18.6 % (11.5-14.5); RDW Standard Deviation 64.8 fL (36.4-46.3); Red Blood Count 2.79 M/uL (4.20-5.40); White Blood Count 4.58 K/ul (4.8-10.8)
[2022-08-21] MEDS ORDERED: cefTRIAXone SODIUM 1,000 MG in DEXTROSE 5% AD-VAN 50 ML IV SCH (18:00)
[2022-08-21] MEDS: rOPINIRole HCL 1 MG TABLET PO SCH (20:50)
[2022-08-22 00:29] LABS: Basophils # (auto) 0.04 K/uL (0-0.2); Basophils % (auto) 0.9 %; Eosinophils # (auto) 0.13 K/uL (0-0.50); Eosinophils % (auto) 2.9 %; Hematocrit (blood only) 25.7 % (37.0-47.0); Hemoglobin 8.6 g/dl (12.0-16.0); Immature Granulocytes # (auto) 0.01 K/uL (0.01-0.20); Immature Granulocytes % (auto) 0.2 %; Lymphocytes # (auto) 0.74 K/uL (1.2-3.4); Lymphocytes % (auto) 16.7 %; Mean Corpuscular Hgb Conc 33.5 g/dL (32.0-36.0); Mean Corpuscular Volume 95.5 fL (80.0-100.0); Mean Platelet Volume 10.9 fL (9.4-12.4); Monocytes # (auto) 0.29 K/uL (0.11-0.59); Monocytes % (auto) 6.6 %; Neutrophils # (auto) 3.21 K/uL (1.40-6.50); Neutrophils % (auto) 72.7 %; Platelet Count 106 K/uL (130-400); RDW Coefficient of Variation 17.8 % (11.5-14.5); RDW Standard Deviation 61.7 fL (36.4-46.3); Red Blood Count 2.69 M/uL (4.20-5.40); White Blood Count 4.42 K/ul (4.8-10.8)
[2022-08-22] MEDS: INSULIN ASPART PER UNIT CHARGE SC SCH ×3 (01:28→10:41)
[2022-08-22] MEDS: LEVOTHYROXINE SODIUM 125 MCG TABLET PO SCH (05:53)
[2022-08-22 07:01] LABS: Hemoglobin 9.4 g/dl (12.0-16.0); Mean Corpuscular Hgb Conc 33.6 g/dL (32.0-36.0); Mean Corpuscular Volume 95.2 fL (80.0-100.0); Mean Platelet Volume 10.5 fL (9.4-12.4); Platelet Count 106 K/uL (130-400); RDW Coefficient of Variation 17.6 % (11.5-14.5); RDW Standard Deviation 60.5 fL (36.4-46.3); Red Blood Count 2.94 M/uL (4.20-5.40); White Blood Count 4.02 K/ul (4.8-10.8)
[2022-08-22 07:19] LABS: Albumin Globulin Ratio 1.5 (0.9-2); Albumin Level 2.8 gm/dl (3.4-5.0); BUN Creatinine Ratio 13.8 (10-20); Bilirubin,Total 0.5 mg/dl (0.2-1.0); Calcium 7.7 mg/dl (8.6-10.3); Creatinine Clr Calc Pharmacy 8.3 ml/min; Est GFR (African American) 11.3 ml/min; Est GFR (Non-African American) 9.7 ml/min; Globulin 1.9 gm/dl (2.5-4.0); Magnesium 1.9 mg/dl (1.7-2.4); Phosphorus 4.6 mg/dl (2.5-4.9); Potassium 4.5 mmol/L (3.5-5.1); Total Protein 4.7 gm/dl (6.0-8.3)
[2022-08-22 07:25] LABS: Prothrombin Time 11.4 Seconds (9.0-12.0)
[2022-08-22] MEDS: PANTOprazole 40 MG in SYRINGE 0 ML IV SCH (07:55)
--- NOTE | 2022-08-22 08:24 | History & Physical Bridge Note ---
Date of Service August 22, 2022 History & Physical Bridge Note I have examined the patient, reviewed the History & Physical and in the interval since the performance of the History & Physical I have noted the following changes of clinical significance: no changes noted Proceed with EGD. risks/benefits and procedure discussed with patient, who agrees to proceed
--- NOTE | 2022-08-22 08:28 | Anesthesiology Consultation ---
Date of Service August 22, 2022 Assessment & Plan Chart Review Chart Review: Acceptable Risk for Surgery History Surgery Operation Date: 08/22/22 16:30 Proposed Procedures p Esophagogastroduodenoscopy Dr. Tara Pacheco MD Height/Weight Height: 4 ft 9 in Weight: 66.8 kg Allergies Allergy/AdvReac Type Severity Reaction Status Date / Time sulfamethoxazole AdvReac Unknown REMOTE Verified 08/17/22 12:07 [From Bactrim] HX/PT NOT SURE REACTION trimethoprim [From Bactrim] AdvReac Unknown REMOTE Verified 08/17/22 12:07 HX/PT NOT SURE REACTION Medications Home Medications Medication Instructions Recorded Confirmed Last Taken cholecalciferol (vitamin D3) 25 2,000 unit PO QAM 05/29/18 08/20/22 08/20/22 mcg (1,000 unit) capsule (Vitamin D3) blood sugar diagnostic (Blood #100 ea 10/12/20 08/20/22 Unknown Glucose Test strips) cyanocobalamin (vitamin B-12) 1,000 mcg PO QAM 11/12/20 08/20/22 08/20/22 1,000 mcg tablet (Vitamin B-12) tamsulosin 0.4 mg capsule (Flomax) 0.4 mg PO QAM 11/12/20 08/20/22 08/20/22 bethanechol chloride 50 mg tablet 50 mg PO BID #180 tabs 04/19/21 08/20/22 08/19/22 Saccharomyces boulardii 250 mg 250 mg PO BID #180 caps 12/05/21 08/20/22 08/20/22 capsule (Florastor) diaper,brief,adult,disposable #150 ea 12/07/21 08/20/22 Unknown (Fitted Briefs X-Large) triamcinolone acetonide 0.05 % 1 applic topical BID #430 grams 01/18/22 08/20/22 08/19/22 topical ointment furosemide 80 mg tablet 80 mg PO BID 03/20/22 08/20/22 08/20/22 sevelamer carbonate 800 mg tablet 1,600 mg PO BIDWMEAL 03/20/22 08/20/22 08/20/22 methocarbamol 500 mg tablet 500 mg PO TID PRN muscle spasm #90 05/03/22 08/20/22 08/19/22 tabs calcium citrate 200 mg (950 mg) 400 mg PO QAM 05/29/22 08/20/22 08/20/22 tablet loperamide 2 mg capsule 2 mg PO UD PRN Diarrhea 05/29/22 08/20/22 08/19/22 estradiol 0.01% (0.1 mg/gram) 1 applic vaginal 3XWK 05/30/22 08/20/22 08/19/22 vaginal cream vitamin E 268 mg (400 unit) capsule 268 mg PO QAM 05/30/22 08/20/22 08/20/22 pantoprazole 40 mg tablet,delayed 40 mg PO BID #60 tabs 06/02/22 08/20/22 08/20/22 release (Protonix) linagliptin 5 mg tablet (Tradjenta) 5 mg PO QAM #90 tabs 06/23/22 08/20/2208/03 octreotide acetate 50 mcg/mL 50 mcg subcut Q12H GAVE #25 mL 06/28/22 08/20/22 08/20/22 injection solution amlodipine 5 mg tablet 5 mg PO QAM 07/10/22 08/20/22 08/20/22 nystatin 100,000 unit/gram topical 1 applic topical BID 07/10/22 08/20/22 08/20/22 powder levothyroxine 125 mcg capsule 125 mcg PO QAM 07/20/22 08/20/22 08/20/22 famotidine 20 mg tablet 20 mg PO BID 3 months #180 tabs 07/21/22 08/20/22 08/20/22 ropinirole 0.5 mg tablet 0.5 mg PO UD #90 tabs 08/07/22 08/20/22 08/19/22 sucralfate 100 mg/mL oral 5 ml PO QID #400 mL 08/10/22 08/20/22 08/20/22 suspension (Carafate) tramadol 50 mg tablet 50 mg PO BID PRN Pain #60 tabs 08/21/22 Unknown Active Medications Generic Name Dose Route Start Last Admin Trade Name Freq PRN Reason Stop Dose Admin Bethanechol Chloride 50 mg 08/20/22 21:00 08/21/22 20:50 Bethanechol Chl 25 Mg Tab PO 09/19/22 20:59 50 mg BID [place] Administration Octreotide Acetate 500 mcg/ 100.5 mls @ 10.05 mls/hr 08/20/22 17:15 08/22/22 07:55 Dextrose IV 09/19/22 17:14 0 mcg/hr .Q10H [place] 0 mls/hr Infusion 50 MCG/HR Ceftriaxone Sodium 1,000 mg/ 50 mls @ 100 mls/hr 08/21/22 18:00 08/21/22 18:30 Dextrose IV 09/20/22 17:59 Infused Q24H [place] Infusion Protocol Pantoprazole Sodium 40 mg/ 10 mls @ 5 mls/min 08/21/22 10:00 08/22/22 07:55 Syringe IV 09/20/22 09:59 5 mls/min BID [place] Administration Insulin Aspart 0 units 08/20/22 18:15 08/22/22 06:15 Insulin Aspart Per Unit Charge SC 09/19/22 18:14 Not Given Q6H [place] Insulin Glargine 5 units 08/20/22 21:00 08/21/22 20:48 Lantus Per Unit Charge SQ 09/19/22 20:59 5 units BID [place] Administration Levothyroxine Sodium 125 mcg 08/21/22 06:30 08/22/22 05:53 Levothyroxine Sodium 125 Mcg Tablet PO 09/20/22 06:29 125 mcg DAILYBB [place] Administration Methocarbamol 500 mg 08/20/22 18:28 08/21/22 20:49 Methocarbamol 500 Mg Tablet PO 09/19/22 18:27 500 mg TID PRN Administration muscle spasm Ropinirole HCl 0.5 mg 08/21/22 14:00 08/21/22 13:34 Ropinirole Hcl 0.25 Mg Tablet PO 09/20/22 13:59 0.5 mg 1400 [place] Administration Ropinirole HCl 1.5 mg 08/20/22 21:00 08/21/22 20:50 Ropinirole Hcl 1 Mg Tablet PO 09/19/22 20:59 1.5 mg HS [place] Administration Sucralfate 1 gm 08/21/22 13:00 08/21/22 20:49 Sucralfate 1 Gm/10 Ml Udc PO 09/20/22 12:59 1 gm QID [place] Administration Tamsulosin HCl 0.4 mg 08/21/22 09:00 08/21/22 10:44 Tamsulosin Hcl 0.4 Mg Cap PO 09/20/22 08:59 0.4 mg QAM [place] Administration Past Medical History Medical History Anemia of chronic disease Anxiety Aortic stenosis Atrial fibrillation and flutter Atrial fibrillation, permanent CAD (coronary artery disease) Chronic diastolic heart failure Chronic hyponatremia Clostridioides difficile carrier Diabetes mellitus, type 2 Diabetic retinopathy ESRD on hemodialysis tuesdays, , and saturdays currently Essential tremor MINOR IN HAND Fatty liver First degree AV block GAVE (gastric antral vascular ectasia) GERD without esophagitis Hearing deficit no hearing aids Hemorrhoids Hiatal hernia History of CVA (cerebrovascular accident) (2018) ~5years ago, woke up with weakness in her rt hand; L lacunar infarct; previously on plavix>no residual effects History of GI bleed hx 08/2021, given transfusion-per medical record REASON FOR UPCOMING PROCEDURE History of recent hospitalization GI BLEED/LOW BLOOD COUNT/HX BLOOD TRANSFUSION - MAY 2022 - [facility] History of renal dialysis AND SAT ([facility]/ACROSS FROM [facility]) ACCESS SITE RIGHT SIDE OF CHEST/ ? DETAILS Hx of atrial fibrillation, no current medication per medical report Hyperlipidemia Hypertension Hypothyroidism 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 Osteoarthritis Pancytopenia Poor historian RBBB f/u dr. aguirre Resistant hypertension Restless legs Secondary hyperparathyroidism of renal origin Urinary urgency Venous insufficiency Exercise / Class Metabolic Activity III < 4 Walking/Shop/Light housework Past Family History Family History Father Alcohol abuse Heart disease Myocardial infarction Hypertension Sister Pancreatic cancer Diabetes Breast cancer Brother Diabetes Alcohol abuse Stroke Other Cancer No family history of adverse response to anesthesia Denies family history of Ovarian cancer Prostate cancer Colorectal cancer Past Surgical History Surgical History H/O varicose vein ligation History of back surgery (04/2010) X 2 History of bladder suspension procedure X 2 History of colonoscopy History of esophagogastroduodenoscopy (EGD) multiple---last 08/01/2022 @ [facility] 04/06/22 at [facility] with Dr. Mich Salimi- EGD- Gastric antral vascular ectasia with bleeding, treated with argon plasma coagulation (APC); Few angioectasias in the duodenum, treated with APC History of tooth extraction Hx of cardiac catheterization 08/2021, [place] w/Dr. Moura for increased cardiac pressures; no stents S/P carpal tunnel release RT/LEFT S/P hysterectomy [place] S/P knee replacement RT/LEFT S/P pericardiocentesis 08/2021, [place], w/dr moura S/P trigger finger release Past Anesthesia History No Hx of Anesthesia Complications and No Family Hx of Anesthesia Complications History of PONV No Hx of PONV and No Hx of Motion Sickness Social History Smoking Status: Never smoker Do You Dip or Chew Tobacco: No Hx Alcohol Use: No alcohol intake frequency: 0-2 drinks per day Hx Substance Use: No substance use type: does not use Physical Exam Vital Signs Last Vital Signs Temp 36.6 C 08/22/22 07:36 Pulse 63 08/22/22 07:36 Resp 18 08/22/22 07:36 BP 157/70 H 08/22/22 07:36 Pulse Ox 95 08/22/22 07:36 O2 Del Method Room Air 08/22/22 07:36 Testing Laboratory Results 08/22/22 06:41 08/22/22 06:41 PT 11.4 Seconds (9.0-12.0) 08/22/22 06:41 INR 1.0 (0.9-1.1) 08/22/22 06:41 APTT 23.6 Seconds (21.0-31.0) 08/20/22 15:28 Blood Type O Positive 08/20/22 15:28 Antibody Screen NEGATIVE 08/20/22 15:28 08/22/22 08/21/22 08/21/22 05:53 23:30 20:38 POC Glucose 92 143 H 125 H
--- NOTE | 2022-08-22 09:00 | Anesthesiology Progress Note ---
Date of Service August 22, 2022 Anesthesia Post Procedure Vital Signs Vital Signs: Temp Pulse Pulse Resp BP Pulse Ox O2 Del Method 08/22/22 08:53 55 L 16 121/51 L 98 Room Air 08/22/22 08:16 36.5 C 68 16 175/59 H 99 Room Air 08/22/22 07:36 36.6 C 63 18 157/70 H 95 Room Air 08/22/22 03:06 36.6 C 65 18 155/70 H 99 Room Air 08/21/22 23:39 61 08/21/22 23:38 36.7 C 73 18 153/96 H 96 Room Air 08/21/22 19:15 36.6 C 61 18 146/66 H 96 Room Air 08/21/22 15:52 36.6 C 65 19 148/56 H 97 Room Air 08/21/22 10:51 36.5 C 67 16 144/65 H 99 Room Air Transfer of Care Handoff Completed per policy Notes Mental Status: alert / awake / arousable and participated in evaluation Nausea / Vomiting: adequately controlled Pain: adequately controlled Airway Patency, RR, SpO2: stable & adequate BP & HR: stable & adequate Hydration State: stable & adequate Anesthetic Complications: no major complications apparent and Pt Satisfied with anesthetic care
--- NOTE | 2022-08-22 09:19 | GI REPORT ---
Patient Name: Sully Ray Procedure Date: 08/22/2022 8:27 AM Date of : 1940 Admit Type: Inpatient Age: 82 Gender: Female Attending MD: Mich Pacheco MD, Procedure: Upper GI endoscopy Providers: iMch Pacheco MD Referring MD: Rafael Monroe Md Indications: Watermelon stomach (GAVE syndrome) Medicines: Monitored Anesthesia Care Complications: No immediate complications. Estimated blood loss: None. Estimated Blood Loss: Estimated blood loss: none. Procedure: Pre-Anesthesia Assessment: - Prior Anticoagulants: The patient has taken no anticoagulant or antiplatelet agents. - ASA Grade Assessment: IV - A patient with severe systemic disease that is a constant threat to life. After obtaining informed consent, the endoscope was passed under direct vision. Throughout the procedure, the patient's blood pressure, pulse, and oxygen saturations were monitored continuously. The Endoscope was introduced through the mouth, and advanced to the second part of duodenum. The upper GI endoscopy was accomplished without difficulty. The patient tolerated the procedure well. Findings: The examined esophagus was normal. Severe gastric antral vascular ectasia was present in the gastric antrum. there was not significant active bleeding noted. Coagulation for hemostasis using argon plasma at 1.2 liters/minute and 30 jones was successful. The duodenal bulb and second portion of the duodenum were normal. Impression: - Normal esophagus. - Gastric antral vascular ectasia. Treated with argon plasma coagulation (APC). - Normal duodenal bulb and second portion of the duodenum. - No specimens collected. Recommendation: - Return patient to [facility] for [facility] care. - Advance diet as tolerated today. - Repeat upper endoscopy in 2 weeks for retreatment. Mich Pacheco MD 08/22/2022 9:18:22 AM This report has been signed electronically. Note Initiated On: 08/22/2022 8:27 AM Number of Addenda: 0 I attest to the content of the Intraoperative Record and orders documented therein, exceptions below {[id number]}
[2022-08-22] MEDS: SUCRALFATE 1 GM/10 ML UDC PO SCH ×2 (10:31→12:07)
[2022-08-22] MEDS: TAMSULOSIN HCL 0.4 MG CAP PO SCH (10:31)
[2022-08-22] MEDS: BETHANECHOL CHL 25 MG TAB PO SCH (10:31)
[2022-08-22] MEDS: OCTREOTIDE ACETATE 500 MCG in DEXTROSE 5% 100 ML IV SCH (10:32)
[2022-08-22] MEDS: LANTUS PER UNIT CHARGE SQ SCH (10:41)
--- NOTE | 2022-08-22 10:42 | Palliative Care Consultation ---
Date of Consultation August 22, 2022 History of Present Illness Reason for Consultation: goals of care Requesting Physician: Dr. Monroe Attending Physician: Rafael Monroe MD History of Present Illness 82 yo lady with ESRD on hemodialysis and severe GAVE with GI bleeding and anemia. She is currently getting EGDs for hemostasis about every two weeks as well as transfusions. Her hemoglobin on presentation was 5.8. Transfusion frequency has been increasing to every 5-6 days. She also has a history of cirrhosis and diabetes. Allergies Allergy/AdvReac Type Severity Reaction Status Date / Time sulfamethoxazole AdvReac Unknown REMOTE Verified 08/17/22 12:07 [From Bactrim] HX/PT NOT SURE REACTION trimethoprim [From Bactrim] AdvReac Unknown REMOTE Verified 08/17/22 12:07 HX/PT NOT SURE REACTION Home Medications Medication Instructions Recorded Confirmed Type cholecalciferol (vitamin D3) 25 2,000 unit PO QAM 05/29/18 08/20/22 History mcg (1,000 unit) capsule (Vitamin D3) blood sugar diagnostic (Blood #100 ea 10/12/20 08/20/22 Rx Glucose Test strips) cyanocobalamin (vitamin B-12) 1,000 mcg PO QAM 11/12/20 08/20/22 History 1,000 mcg tablet (Vitamin B-12) tamsulosin 0.4 mg capsule (Flomax) 0.4 mg PO QAM 11/12/20 08/20/22 History bethanechol chloride 50 mg tablet 50 mg PO BID #180 tabs 04/19/21 08/20/22 Rx Saccharomyces boulardii 250 mg 250 mg PO BID #180 caps 12/05/21 08/20/22 Rx capsule (Florastor) diaper,brief,adult,disposable #150 ea 12/07/21 08/20/22 Rx (Fitted Briefs X-Large) triamcinolone acetonide 0.05 % 1 applic topical BID #430 grams 01/18/22 08/20/22 Rx topical ointment furosemide 80 mg tablet 80 mg PO BID 03/20/22 08/20/22 History sevelamer carbonate 800 mg tablet 1,600 mg PO BIDWMEAL 03/20/22 08/20/22 History methocarbamol 500 mg tablet 500 mg PO TID PRN muscle spasm #90 05/03/22 08/20/22 Rx tabs calcium citrate 200 mg (950 mg) 400 mg PO QAM 05/29/22 08/20/22 History tablet loperamide 2 mg capsule 2 mg PO UD PRN Diarrhea 05/29/22 08/20/22 History estradiol 0.01% (0.1 mg/gram) 1 applic vaginal 3XWK 05/30/22 08/20/22 History vaginal cream vitamin E 268 mg (400 unit) capsule 268 mg PO QAM 05/30/22 08/20/22 History pantoprazole 40 mg tablet,delayed 40 mg PO BID #60 tabs 06/02/22 08/20/22 Rx release (Protonix) linagliptin 5 mg tablet (Tradjenta) 5 mg PO QAM #90 tabs 06/23/22 08/20/22 Rx octreotide acetate 50 mcg/mL 50 mcg subcut Q12H GAVE #25 mL 06/28/22 08/20/22 Rx injection solution amlodipine 5 mg tablet 5 mg PO QAM 07/10/22 08/20/22 History nystatin 100,000 unit/gram topical 1 applic topical BID 07/10/22 08/20/22 History powder levothyroxine 125 mcg capsule 125 mcg PO QAM 07/20/22 08/20/22 History famotidine 20 mg tablet 20 mg PO BID 3 months #180 tabs 07/21/22 08/20/22 Rx ropinirole 0.5 mg tablet 0.5 mg PO UD #90 tabs 08/07/22 08/20/22 Rx sucralfate 100 mg/mL oral 5 ml PO QID #400 mL 08/10/22 08/20/22 Rx suspension (Carafate) tramadol 50 mg tablet 50 mg PO BID PRN Pain #60 tabs 08/21/22 Rx Patient History Medical History Anemia of chronic disease Anxiety Aortic stenosis Atrial fibrillation and flutter Atrial fibrillation, permanent CAD (coronary artery disease) Chronic diastolic heart failure Chronic hyponatremia Clostridioides difficile carrier Diabetes mellitus, type 2 Diabetic retinopathy ESRD on hemodialysis tuesdays, , and saturdays currently Essential tremor MINOR IN HAND Fatty liver First degree AV block GAVE (gastric antral vascular ectasia) GERD without esophagitis Hearing deficit no hearing aids Hemorrhoids Hiatal hernia History of CVA (cerebrovascular accident) (2019) ~5years ago, woke up with weakness in her rt hand; L lacunar infarct; previously on plavix>no residual effects History of GI bleed hx 08/2021, given transfusion-per medical record REASON FOR UPCOMING PROCEDURE History of recent hospitalization GI BLEED/LOW BLOOD COUNT/HX BLOOD TRANSFUSION - MAY 2022 - [facility] History of renal dialysis TUES,THUR AND SAT ([facility] [place]/ACROSS FROM [facility]) ACCESS SITE RIGHT SIDE OF CHEST/ ? DETAILS Hx of atrial fibrillation, no current medication per medical report Hyperlipidemia Hypertension Hypothyroidism 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 Osteoarthritis Pancytopenia Poor historian RBBB f/u dr. aguirre Resistant hypertension Restless legs Secondary hyperparathyroidism of renal origin Urinary urgency Venous insufficiency Surgical History H/O varicose vein ligation History of back surgery (04/2010) X 2 History of bladder suspension procedure X 2 History of colonoscopy History of esophagogastroduodenoscopy (EGD) multiple---last 08/01/2022 @ [facility] 04/06/22 at [facility] with Dr. Mich Pacheco- EGD- Gastric antral vascular ectasia with bleeding, treated with argon plasma coagulation (APC); Few angioectasias in the duodenum, treated with APC History of tooth extraction Hx of cardiac catheterization 08/2021, [facility] w/Dr. Moura for increased cardiac pressures; no stents S/P carpal tunnel release RT/LEFT S/P hysterectomy [place]RI[place] S/P knee replacement RT/LEFT S/P pericardiocentesis 08/2021, [place], w/dr moura S/P trigger finger release Family History Father Alcohol abuse Heart disease Myocardial infarction Hypertension Sister Pancreatic cancer Diabetes Breast cancer Brother Diabetes Alcohol abuse Stroke Other Cancer No family history of adverse response to anesthesia Denies family history of Ovarian cancer Prostate cancer Colorectal cancer Social History Smoking Status: Never smoker Second Hand Exposure: No; Do You Dip or Chew Tobacco: No; Tobacco Cessation Education Requested by Patient: No Hx Alcohol Use: No Hx Substance Use: No Preferred Language: Vietnamese Communication Ability: Effective Visual Impairment: No Limitations Hearing Ability: Normal Stucco Worker Required: No Beliefs That Will Affect Care: None marital status: Single Current Living Situation: Alone current occupational status: retired How many Children do You have: 2 Other Information That Helps Us Care for You: No Feels Safe at Home: Yes Safety Concerns: Feels Safe At This Time Childhood Exposure to Second-Hand Smoke: No Diet: regular Diet Comment: regular caffeine: Yes (Coffee x 2 cups per day.) during the past year weight has: remained stable Dental Care, Regularly: No Physical Activity Frequency: Does not Exercise Seatbelt Use: always Sunscreen Use: Yes Assistive Devices: Walker Results & Data Vital Signs (Past 12 Hours) Vital Signs Temp Pulse Pulse Resp BP Pulse Ox O2 Del Method 08/22/22 10:36 97.7 F 60 16 153/71 H 100 Room Air 08/22/22 09:18 59 L 16 130/92 96 Room Air 08/22/22 09:08 60 16 138/53 L 97 Room Air 08/22/22 08:53 55 L 16 121/51 L 98 Room Air 08/22/22 08:16 97.7 F 68 16 175/59 H 99 Room Air 08/22/22 07:36 97.9 F 63 18 157/70 H 95 Room Air 08/22/22 03:06 97.9 F 65 18 155/70 H 99 Room Air 08/21/22 23:39 61 08/21/22 23:38 98.1 F 73 18 153/96 H 96 Room Air PG Care Time/CCT Total # of Minutes Spent Total Time Spent with Patient: Total time spent is greater than 50% in coordination of care (as documented) at patient's floor/unit and/or counseling patient: Coding Diagnoses
[2022-08-22] MEDS: rOPINIRole HCL 0.25 MG TABLET PO SCH (12:07)
--- NOTE | 2022-08-22 14:33 | Nephrology Progress Note ---
Date of Service August 22, 2022 Assessment & Plan (1) ESRD (end stage renal disease) on dialysis: (2) GAVE (gastric antral vascular ectasia): (3) ABLA (acute blood loss anemia): Plan ESRD, on hemodialysis via Right IJ tunneled dialysis catheter on TTS at [facility]. Has history of GI bleeding with GAVE, presented with generalized weakness and in ER hemoglobin was 5.8, receive 2 units of PRBC yesterday and hemoglobin improved to >9 this morning. Blood pressure, volume status and electrolyte acceptable. Feeling better -- plan for HD today for 3.5 h as regular TTS schedule. --Continue on low-potassium, low phosphorus diet, continue on Renvela with meals --Dose medications for eGFR less than 10 Will follow. Admission and Anticipated Discharge Date Admission Date: August 20, 2022 Kathryn Peck was seen and examined this morning. Overall she feels well, denies any abdominal pain or diarrhea. She is frustrated with repeated procedure and hospitalization. Had EGD this morning showing severe GAVE, hemoglobin staying stable. the Review of Systems Review of Systems: Detailed ROS was otherwise unremarkable. Physical Exam Constitutional: WD/WN, vitals as above + ill appearing; no acute distress Eyes: + anicteric sclerae Neck: normal visual inspection Respiratory: no respiratory distress Auscultation: lungs clear to auscultation bilaterally Cardiovascular: RRR, no murmur, no edema Gastrointestinal (Abdomen): Inspection/Auscultation: abdomen normal to inspection Musculoskeletal: Extremities: extremities normal to inspection Skin: no rashes, warm and dry Neurologic: no focal motor deficits and not confused Psychiatric: Orientation: alert and oriented x 3 Affect: euthymic affect Results & Data Vital Signs (Past 12 Hours) Vital Signs Temp Pulse Pulse Pulse Resp BP BP 08/22/22 13:30 88 142/73 H 08/22/22 14:00 70 146/66 H 08/22/22 13:00 64 167/68 H 08/22/22 12:30 66 159/105 H 08/22/22 12:26 36.6 C 66 08/22/22 10:36 36.5 C 60 16 153/71 H 08/22/22 09:18 59 L 16 130/92 08/22/22 09:08 60 16 138/53 L 08/22/22 08:53 55 L 16 121/51 L 08/22/22 08:16 36.5 C 68 16 175/59 H 08/22/22 07:36 36.6 C 63 18 157/70 H 08/22/22 03:06 36.6 C 65 18 155/70 H Pulse Ox O2 Del Method 08/22/22 13:30 08/22/22 14:00 08/22/22 13:00 08/22/22 12:30 08/22/22 12:26 08/22/22 10:36 100 Room Air 08/22/22 09:18 96 Room Air 08/22/22 09:08 97 Room Air 08/22/22 08:53 98 Room Air 08/22/22 08:16 99 Room Air 08/22/22 07:36 95 Room Air 08/22/22 03:06 99 Room Air PG Care Time/CCT Total # of Minutes Spent Total Time Spent with Patient: Total time spent is greater than 50% in coordination of care (as documented) at patient's floor/unit and/or counseling patient: Coding Level of Care Code 62768 SUB INP/OBS CARE 2/35MIN Diagnoses ESRD (end stage renal disease) on dialysis N18.6; Z99.2 GAVE (gastric antral vascular ectasia) K31.819 ABLA (acute blood loss anemia) D62
--- NOTE | 2022-08-22 14:45 | Hospitalist Progress Note ---
Date of Service August 22, 2022 Assessment & Plan (1) ABLA (acute blood loss anemia): Plan: -Patient has recurrent upper GI bleeding from gastric antral vascular ectasia -S/P EGD with Dr. Pacheco on 08/15 with hgb of 9.7 on 08/10 -Has been having black stool again -Hgb on admission 5.8, -Now s/p 2 units PRBC , Hb currently 8.7 -Contiue Protonix and Octreotide -Will continue Ceftriaxone with her HX of cirrhosis, upper GI bleed, and Varices -Repeat EGD today 08/22 showed severe gastric antral vascular ectasia, but no active bleed -Hb still holding up -Palliative service has been consulted regarding goals of care (2) Elevated troponin I level: Plan: -Initial high sen trop elevated at 36 -Patient is asymptomatic, no acute ST segment changes but does have some t-wave inversions in the anterior leads -Elevation is likely a combination of demand from her severe anemia and ESRD status causing a falsely elevated level -Will repeat STAT 2 hour trop now, continue to monitor on tele (3) ESRD (end stage renal disease) on dialysis: Plan: ON T TH Sat session of HD Nephrology on consult (4) Pancytopenia: Plan: -Due to a combination of her chronic diseases and recurrent GI bleeds -Continue to trend CBC with diff (5) Neurogenic bladder: Plan: -Continue bethanechol chloride (6) Diabetes mellitus type 2 with complications: Plan: -Hold Tradjenta -Monitor BSG q6h, goal is 110-160 -Start 5 units BID, CF 50 q6h for now -Adjust regimen as needed (7) Cirrhosis: Plan: -Stable -Will hold lasix for now to prevent hypotension with current bleed (8) (HFpEF) heart failure with preserved ejection fraction: Plan: -Currently Euvolemic -Hold amlodipine for now to prevent hypotension (9) Atrial fibrillation, permanent: Plan: -Stable -Not on anticoagulation due to recurrent GI bleeds and anemia -Rate controlled off AV jolie blocking agents -Continue to monitor on tele (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: Plan: -Known to be a carrier but is without diarrhea at this time -Still not interested and prophylactic treatment Plan continue hospitalization, hopefully d/c in the next 24 hrs if hg is stable Admission and Anticipated Discharge Date Admission Date: August 20, 2022 Subjective patient seen and examined, going for HD Review of Systems Review of Systems: All systems reviewed are negative, apart from the ones contained in the history. Physical Exam Physical Exam: The patient is awake, alert and oriented 3, well developed and well nourished, normocephalic and atraumatic, lying in bed and in no acute distress. HEENT--PERRL, EOMI, mucous membranes and oropharynx mildly dry Neck--supple. No JVD. No bruits. Thyroid normal, trachea midline, no adenopathy. Heart--normal S1 and S2. No murmurs, rubs or gallops. Lungs--clear bilaterally, no respiratory distress, no accessory muscle use. Abdomen--normal bowel sounds and soft. Mild epigastric and left sided abdominal pain Extremities--no cyanosis or clubbing. No edema. Dermatologic--normal skin turgor, normal color, no abnormal lymph nodes, no rash. Neurologic--cranial nerves II through XII grossly intact. Rheumatologic--normal range of motion. Psychiatric--normal affect. Results & Data Results & Data Vital Signs (Past 12 Hours) Vital Signs Temp Pulse Pulse Pulse Resp BP BP 08/22/22 14:30 79 126/68 08/22/22 13:30 88 142/73 H 08/22/22 14:00 70 146/66 H 08/22/22 13:00 64 167/68 H 08/22/22 12:30 66 159/105 H 08/22/22 12:26 97.9 F 66 08/22/22 10:36 97.7 F 60 16 153/71 H 08/22/22 09:18 59 L 16 130/92 08/22/22 09:08 60 16 138/53 L 08/22/22 08:53 55 L 16 121/51 L 08/22/22 08:16 97.7 F 68 16 175/59 H 08/22/22 07:36 97.9 F 63 18 157/70 H 08/22/22 03:06 97.9 F 65 18 155/70 H Pulse Ox O2 Del Method 08/22/22 14:30 08/22/22 13:30 08/22/22 14:00 08/22/22 13:00 08/22/22 12:30 08/22/22 12:26 08/22/22 10:36 100 Room Air 08/22/22 09:18 96 Room Air 08/22/22 09:08 97 Room Air 08/22/22 08:53 98 Room Air 08/22/22 08:16 99 Room Air 08/22/22 07:36 95 Room Air 08/22/22 03:06 99 Room Air PG Care Time/CCT Total # of Minutes Spent Total Time Spent with Patient: Total time spent is greater than 50% in coordination of care (as documented) at patient's floor/unit and/or counseling patient: Coding Level of Care Code 18169 SUB INP/OBS CARE 2/35MIN Diagnoses ABLA (acute blood loss anemia) D62 Elevated troponin I level R77.8 ESRD (end stage renal disease) on dialysis N18.6; Z99.2 Pancytopenia D61.818 Neurogenic bladder N31.9 Diabetes mellitus type 2 with complications E11.8 Cirrhosis K74.60 (HFpEF) heart failure with preserved ejection fraction I50.30 Atrial fibrillation, permanent I48.21 Clostridioides difficile carrier Z22.1 Time Spent (min) 35
--- NOTE | 2022-08-22 16:31 | Discharge Summary ---
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 In the ED vitals were stable. Labs were significant for progressive pancytopenia with a hgb of 5.8 (down from 9.7 as of 08/10), MCV of 102, RDW of 57, platelets of 96, lymphocyte count of 0.67, cr of 3.14, BUN of 53, ionized calcium of 0.92, stable alk phos of 256, initial high sen trop of 36, and covid 19 negative. Chest xray was read as 1. Cardiomegaly without radiographic evidence of congestive failure. 2. Left larger than right pleural effusions with dependent atelectasis. These are similar to previous.. Prior to admission the patient was started on a Protonix drip and ordered 2 units of PRBCs. At the time of the exam the patient was sitting in bed in no acute distress with her Daughter sitting bedside, history was obtained from both. The patient states that since her last transfusion last week she has been weak and didn't bounce back like she usually does. She had a full course of hemodialysis yesterday without issue but started to develop nausea yesterday. She was able to obtain the SQ Octreotide outpatient with her last dose this am. Over the past 24 hours she has had multiple episodes of formed, black stool. She denies recent fever, chills, chest pain, SOB, abd pain, vomiting, diarrhea, dysuria (does make urine), hematuria, LE swelling and recent trauma. She confirmed she is a DNR/DNI and would want her daughter to make medical decisions for her if she could not make them herself. The patient was recently admitted to [facility] from 07/10-07/13 due to acute blood loss anemia from her upper GI bleed. During her admission she required 2 units of PRBCs and was also treated with a Protonix drip, famotidine, and octreotide. The patient recently had another EGD with Dr. Pacheco on 08/15. Findings included a medium-sized hiatial hernia, moderate gastric antral vascular ectasias in the stomach. Coagulation for hemostasis was obtained using argon plasma. She was discharged home with FU EGD in 2 weeks. Principal Diagnosis GI bleed Discharge Exam The patient is awake, alert and oriented 3, well developed and well nourished, normocephalic and atraumatic, lying in bed and in no acute distress. HEENT--PERRL, EOMI, mucous membranes and oropharynx mildly dry Neck--supple. No JVD. No bruits. Thyroid normal, trachea midline, no adenopathy. Heart--normal S1 and S2. No murmurs, rubs or gallops. Lungs--clear bilaterally, no respiratory distress, no accessory muscle use. Abdomen--normal bowel sounds and soft. Mild epigastric and left sided abdominal pain Extremities--no cyanosis or clubbing. No edema. Dermatologic--normal skin turgor, normal color, no abnormal lymph nodes, no rash. Neurologic--cranial nerves II through XII grossly intact. Rheumatologic--normal range of motion. Psychiatric--normal affect. Discharge Data Allergies Allergy/AdvReac Type Severity Reaction Status Date / Time sulfamethoxazole AdvReac Unknown REMOTE Verified 08/17/22 12:07 [From Bactrim] HX/PT NOT SURE REACTION trimethoprim [From Bactrim] AdvReac Unknown REMOTE Verified 08/17/22 12:07 HX/PT NOT SURE REACTION Consultations 08/20/22 17:13 ED Decision to Admit Stat 08/20/22 17:24 Consult Gastroenterology Routine 08/20/22 17:56 Consult Nephrology Routine 08/22/22 07:23 Consult Palliative Care Routine Procedures Performed Operation Date: 08/22/22 16:30 Actual Procedures p EGD Hemostasis - Mich Pacheco MD Hospital Course (1) ABLA (acute blood loss anemia): -Patient has recurrent upper GI bleeding from gastric antral vascular ectasia -S/P EGD with Dr. Pacheco on 08/15 with hgb of 9.7 on 08/10 -Has been having black stool again -Hgb on admission 5.8, -Now s/p 2 units PRBC , Hb currently 8.7 -Contiue Protonix and Octreotide -Will continue Ceftriaxone with her HX of cirrhosis, upper GI bleed, and Varices -Repeat EGD today 08/22 showed severe gastric antral vascular ectasia, but no active bleed -Hb still holding up -Palliative service has been consulted regarding goals of care (2) Elevated troponin I level: -Initial high sen trop elevated at 36 -Patient is asymptomatic, no acute ST segment changes but does have some t-wave inversions in the anterior leads -Elevation is likely a combination of demand from her severe anemia and ESRD status causing a falsely elevated level -Will repeat STAT 2 hour trop now, continue to monitor on tele (3) ESRD (end stage renal disease) on dialysis: ON T TH Sat session of HD Nephrology on consult (4) Pancytopenia: -Due to a combination of her chronic diseases and recurrent GI bleeds -Continue to trend CBC with diff (5) Neurogenic bladder: -Continue bethanechol chloride (6) Diabetes mellitus type 2 with complications: -Hold Tradjenta -Monitor BSG q6h, goal is 110-160 -Start 5 units BID, CF 50 q6h for now -Adjust regimen as needed (7) Cirrhosis: -Stable -Will hold lasix for now to prevent hypotension with current bleed (8) (HFpEF) heart failure with preserved ejection fraction: -Currently Euvolemic -Hold amlodipine for now to prevent hypotension (9) Atrial fibrillation, permanent: -Stable -Not on anticoagulation due to recurrent GI bleeds and anemia -Rate controlled off AV jolie blocking agents -Continue to monitor on tele (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: -Known to be a carrier but is without diarrhea at this time -Still not interested and prophylactic treatment Plan continue hospitalization, hopefully d/c in the next 24 hrs if hg is stable Total Time Total Time Spent Total Time Spent (In Minutes): 35 Discharge Plan Discharge Items Patient Disposition: Home - Self-Care Reason For Visit: ACUTE BLOOD LOSS ANEMIA Discharge Diagnosis: GI bleed Activity: Resume your previous activity Non-emergency contact: Primary Care Provider, Occupational Health Physiotherapist and Title Searcher Call non-emergency contact if: you have any medication questions Follow-up/Referrals: Agatha Alfaro DO [Primary Care Provider] - Diet: Regular Addtl Attending Provider Instructions: please follow up with your regular doctors Pending Studies at Discharge: No Stand-Alone Forms: [employer] Smoking Cessation Medications and DC Order Prescriptions: Continued (DME) Blood Glucose Test Strip See Rx Instructions .ROUTE .MEDSUPPLY Qty: 100 5RF Rx Instructions: Accucheck perform strips. 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 bethanechol chloride 50 mg tablet 50 mg PO BID Qty: 180 3RF Saccharomyces boulardii [Florastor] 250 mg capsule 250 mg PO BID Qty: 180 3RF (DME) Fitted Briefs X-Large Misc See Rx Instructions .Route Qty: 150 5RF Rx Instructions: using 4-5 per day R19.7 triamcinolone acetonide 0.05 % ointment 1 applic topical BID Qty: 430 1RF methocarbamol 500 mg tablet 500 mg PO TID PRN (Reason: muscle spasm) Qty: 90 1RF Tradjenta 5 mg tablet 5 mg PO QAM Qty: 90 2RF octreotide acetate 50 mcg/mL solution 50 mcg subcut Q12H Qty: 25 5RF Hold Instructions: on back order ropinirole 0.5 mg tablet 0.5 mg PO UD Qty: 90 1RF Patient Comments: 2 AFTERNOON AND 3 AT NIGHT Rx Instructions: Take 1 tab PO in afternoon, take 3 tabs at bedtime PO; sucralfate [Carafate] 100 mg/mL suspension 5 ml PO QID Qty: 400 0RF Rx Instructions: swish in mouth and swallow; use after food/drink tramadol 50 mg tablet 50 mg PO BID PRN (Reason: Pain) Qty: 60 0RF famotidine 20 mg tablet 20 mg PO BID 90 Days Qty: 180 0RF cholecalciferol (vitamin D3) [Vitamin D3] 1,000 unit Capsule 2,000 unit PO QAM calcium citrate 200 mg (950 mg) Tablet 400 mg PO QAM loperamide 2 mg Capsule 2 mg PO UD PRN (Reason: Diarrhea) Rx Instructions: administer after each loose stool until symptoms controlled; do not exceed 8 mg per 24 hrs estradiol 0.01 % (0.1 mg/gram) cream 1 applic VAGINAL 3XWK vitamin E 268 mg (400 unit) Capsule 268 mg PO QAM pantoprazole [Protonix] 40 mg tablet,delayed release (DR/EC) 40 mg PO BID Qty: 60 5RF nystatin 100,000 unit/gram powder 1 applic TOPICAL BID amlodipine 5 mg Tablet 5 mg PO QAM cyanocobalamin (vitamin B-12) [Vitamin B-12] 1,000 mcg tablet 1,000 mcg PO QAM tamsulosin [Flomax] 0.4 mg capsule 0.4 mg PO QAM furosemide 80 mg Tablet 80 mg PO BID sevelamer carbonate 800 mg Tablet 1,600 mg PO BIDWMEAL Rx Instructions: must administer with a meal/food levothyroxine 125 mcg capsule 125 mcg PO QAM Discharge Orders: Discharge Order (Routine); Ordered 08/22/22 Ordered By: Rafael Monroe Admission Data Admit Date/Time: 08/20/22 17:16 Attending Provider: Rafael Monroe Admit Provider: Davian Stephens Primary Care Provider: Agatha Alfaro Other Providers: Davian Stephens ; Kaylan Will Brandon M. ; Kath Shaffer Coding Level of Care Code 44193 INP/OBS DISCH >30 MIN Diagnoses ABLA (acute blood loss anemia) D62 Elevated troponin I level R77.8 ESRD (end stage renal disease) on dialysis N18.6; Z99.2 Pancytopenia D61.818 Neurogenic bladder N31.9 Diabetes mellitus type 2 with complications E11.8 Cirrhosis K74.60 (HFpEF) heart failure with preserved ejection fraction I50.30 Atrial fibrillation, permanent I48.21 Clostridioides difficile carrier Z22.1 Time Spent (min) 35
--- NOTE | 2022-08-24 09:13 | Palliative Care Consultation ---
Date of Consultation August 24, 2022 Assessment & Plan (1) Palliative care by specialist: Plan late entry note for administrative documentation purposes only: Consult placed 08/22/22 and pt was then also discharged 08/22/22. Numerous attempts made to see pt on 08/22/22, however she was off unit for diagnostic testing and HD which was then followed by discharge. Consult not done, pt not seen. No charge submitted. Patient can be seen in outpatient pall med if desired, please order referral to pall med and note "pt to be scheduled in rad onc clinic" Thank you for allowing us to participate in the ongoing care of this patient. Please don't hesitate to call or page with any additional concerns. Dr. Esther Mosquera DNP Director, Palliative Care History of Present Illness Reason for Consultation: [facility] Attending Physician: Rafael Monroe MD Allergies Allergy/AdvReac Type Severity Reaction Status Date / Time sulfamethoxazole AdvReac Unknown REMOTE Verified 08/17/22 12:07 [From Bactrim] HX/PT NOT SURE REACTION trimethoprim [From Bactrim] AdvReac Unknown REMOTE Verified 08/17/22 12:07 HX/PT NOT SURE REACTION Home Medications Medication Instructions Recorded Confirmed Type cholecalciferol (vitamin D3) 25 2,000 unit PO QAM 05/29/18 08/20/22 History mcg (1,000 unit) capsule (Vitamin D3) blood sugar diagnostic (Blood #100 ea 10/12/20 08/20/22 Rx Glucose Test strips) cyanocobalamin (vitamin B-12) 1,000 mcg PO QAM 11/12/20 08/20/22 History 1,000 mcg tablet (Vitamin B-12) tamsulosin 0.4 mg capsule (Flomax) 0.4 mg PO QAM 11/12/20 08/20/22 History bethanechol chloride 50 mg tablet 50 mg PO BID #180 tabs 04/19/21 08/20/22 Rx Saccharomyces boulardii 250 mg 250 mg PO BID #180 caps 12/05/21 08/20/22 Rx capsule (Florastor) diaper,brief,adult,disposable #150 ea 12/07/21 08/20/22 Rx (Fitted Briefs X-Large) triamcinolone acetonide 0.05 % 1 applic topical BID #430 grams 01/18/22 08/20/22 Rx topical ointment furosemide 80 mg tablet 80 mg PO BID 03/20/22 08/20/22 History sevelamer carbonate 800 mg tablet 1,600 mg PO BIDWMEAL 03/20/22 08/20/22 History methocarbamol 500 mg tablet 500 mg PO TID PRN muscle spasm #90 05/03/22 08/20/22 Rx tabs calcium citrate 200 mg (950 mg) 400 mg PO QAM 05/29/22 08/20/22 History tablet loperamide 2 mg capsule 2 mg PO UD PRN Diarrhea 05/29/22 08/20/22 History estradiol 0.01% (0.1 mg/gram) 1 applic vaginal 3XWK 05/30/22 08/20/22 History vaginal cream vitamin E 268 mg (400 unit) capsule 268 mg PO QAM 05/30/22 08/20/22 History pantoprazole 40 mg tablet,delayed 40 mg PO BID #60 tabs 06/02/22 08/20/22 Rx release (Protonix) linagliptin 5 mg tablet (Tradjenta) 5 mg PO QAM #90 tabs 06/23/22 08/20/22 Rx octreotide acetate 50 mcg/mL 50 mcg subcut Q12H GAVE #25 mL 06/28/22 08/20/22 Rx injection solution amlodipine 5 mg tablet 5 mg PO QAM 07/10/22 08/20/22 History nystatin 100,000 unit/gram topical 1 applic topical BID 07/10/22 08/20/22 Histor y powder levothyroxine 125 mcg capsule 125 mcg PO QAM 07/20/22 08/20/22 History famotidine 20 mg tablet 20 mg PO BID 3 months #180 tabs 07/21/22 08/20/22 Rx ropinirole 0.5 mg tablet 0.5 mg PO UD #90 tabs 08/07/22 08/20/22 Rx sucralfate 100 mg/mL oral 5 ml PO QID #400 mL 08/10/22 08/20/22 Rx suspension (Carafate) tramadol 50 mg tablet 50 mg PO BID PRN Pain #60 tabs 08/21/22 Rx Patient History Medical History (Updated 08/24/22 @ 09:11 by Esther Mosquera DNP) Anemia of chronic disease Anxiety Aortic stenosis Atrial fibrillation and flutter Atrial fibrillation, permanent CAD (coronary artery disease) Chronic diastolic heart failure Chronic hyponatremia Clostridioides difficile carrier Diabetes mellitus, type 2 Diabetic retinopathy ESRD on hemodialysis tuesdays, , and saturdays currently Essential tremor MINOR IN HAND Fatty liver First degree AV block GAVE (gastric antral vascular ectasia) GERD without esophagitis Hearing deficit no hearing aids Hemorrhoids Hiatal hernia History of CVA (cerebrovascular accident) (2019) ~5years ago, woke up with weakness in her rt hand; L lacunar infarct; previously on plavix>no residual effects History of GI bleed hx 08/2021, given transfusion-per medical record REASON FOR UPCOMING PROCEDURE History of recent hospitalization GI BLEED/LOW BLOOD COUNT/HX BLOOD TRANSFUSION - MAY 2022 - [facility] History of renal dialysis AND SAT ([facility] [place]ACROSS FROM [facility]) ACCESS SITE RIGHT SIDE OF CHEST/ ? DETAILS Hx of atrial fibrillation, no current medication per medical report Hyperlipidemia Hypertension Hypothyroidism 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 Osteoarthritis Palliative care by specialist Pancytopenia Poor historian RBBB f/u dr. aguirre Resistant hypertension Restless legs Secondary hyperparathyroidism of renal origin Urinary urgency Venous insufficiency Surgical History H/O varicose vein ligation History of back surgery (04/2010) X 2 History of bladder suspension procedure X 2 History of colonoscopy History of esophagogastroduodenoscopy (EGD) multiple---last 08/01/2022 @ [facility] 04/06/22 at [facility] with Dr. Mich Pacheco- EGD- Gastric antral vascular ectasia with bleeding, treated with argon plasma coagulation (APC); Few angioectasias in the duodenum, treated with APC History of tooth extraction Hx of cardiac catheterization 08/2021, [facility] w/Dr. Moura for increased cardiac pressures; no stents S/P carpal tunnel release RT/LEFT S/P hysterectomy ANDRIA S/P knee replacement RT/LEFT S/P pericardiocentesis 08/2021, [facility], w/dr moura S/P trigger finger release Family History Father Alcohol abuse Heart disease Myocardial infarction Hypertension Sister Pancreatic cancer Diabetes Breast cancer Brother Diabetes Alcohol abuse Stroke Other Cancer No family history of adverse response to anesthesia Denies family history of Ovarian cancer Prostate cancer Colorectal cancer Social History Smoking Status: Never smoker Second Hand Exposure: No; Do You Dip or Chew Tobacco: No; Hx Alcohol Use: No Hx Substance Use: No Preferred Language: Turkish Communication Ability: Effective Visual Impairment: No Limitations Hearing Ability: Normal Ruling Machine Feeder Required: No Beliefs That Will Affect Care: None marital status: Single Current Living Situation: Alone current occupational status: retired How many Children do You have: 2 Feels Safe at Home: Yes Safety Concerns: Feels Safe At This Time Childhood Exposure to Second-Hand Smoke: No Diet: regular Diet Comment: regular caffeine: Yes (Coffee x 2 cups per day.) during the past year weight has: remained stable Dental Care, Regularly: No Physical Activity Frequency: Does not Exercise Seatbelt Use: always Sunscreen Use: Yes Assistive Devices: Walker PG Care Time/CCT Total # of Minutes Spent Total Time Spent with Patient: Total time spent is greater than 50% in coordination of care (as documented) at patient's floor/unit and/or counseling patient: Coding Level of Care Code None Diagnoses Palliative care by specialist Z51.5
== END 2022-08-22 17:18 | disposition home or self-care (01) | DRG 377 ==
LOC: ED 15:12 → 2E 17:16 → SUATTDRO 17:16 → 2E 18:05
DX: Z88.2 Allergy status to sulfonamides; I13.2 Hypertensive heart and chronic kidney disease with heart failure and with stage 5 chronic kidney disease, or end stage renal disease; Z22.39 Carrier of other specified bacterial diseases; Z83.3 Family history of diabetes mellitus; I50.32 Chronic diastolic (congestive) heart failure; Z82.49 Family history of ischemic heart disease and other diseases of the circulatory system; N18.6 End stage renal disease; D61.818 Other pancytopenia; D63.1 Anemia in chronic kidney disease; K31.811 Angiodysplasia of stomach and duodenum with bleeding; Z99.2 Dependence on renal dialysis; I25.10 Atherosclerotic heart disease of native coronary artery without angina pectoris; K74.60 Unspecified cirrhosis of liver; N31.9 Neuromuscular dysfunction of bladder, unspecified; I48.21 Permanent atrial fibrillation; Z88.1 Allergy status to other antibiotic agents; Z98.890 Other specified postprocedural states; Z79.899 Other long term (current) drug therapy; E11.22 Type 2 diabetes mellitus with diabetic chronic kidney disease; K21.9 Gastro-esophageal reflux disease without esophagitis; Z79.84 Long term (current) use of oral hypoglycemic drugs; Z79.890 Hormone replacement therapy; G25.81 Restless legs syndrome; D62 Acute posthemorrhagic anemia; E03.9 Hypothyroidism, unspecified; R77.8 Other specified abnormalities of plasma proteins; Z66 Do not resuscitate

== ENCOUNTER 2023-02-19 10:22 | Inpatient (IN) ==
[2023-02-19] MEDS ORDERED: CEFEPIME 2,000 MG/20 ML VIAL IV STA (11:19)
--- NOTE | 2023-02-19 11:24 | Emergency Department Note ---
Impression & Plan Weakness, UTI (urinary tract infection) ED Provider Note NAME: NIURKA QUIÑONES AGE: 82 SEX: F : 1940 ARRIVES VIA: Walk-In INFORMANT: Patient ED PROVIDER(S): Bandar Venegas DO CHIEF COMPLAINT: weakness HPI: Patient is an 82-year-old female who presents to the ER for weakness. She was seen here several days ago and treated for Pseudomonas UTI. Just switched antibiotics yesterday. Patient denies any headache or change in vision. No chest pain or shortness of breath. Admits to cough and congestion. Admits to a cough and congestion and is flu positive. Does have a runny nose. No fevers. Does have some dysuria which started on Sunday with a cough as well. Patient has been unable to get up and get around that she has been so weak. Discussed with daughter at bedside who notes that patient is too weak to get around. ADDITIONAL HISTORY OBTAINED: Per HPI Chronic Medical/Social Conditions Affecting Care: Per HPI PAST MEDICAL HISTORY:See Below PAST SURGICAL HISTORY:See Below FAMILY HISTORY:See Below SOCIAL HISTORY:See Below HOME MEDICATIONS:See Below ALLERGIES:See Below VITALS:See Below PHYSICAL EXAMINATION: GENERAL: Sitting up in bed, alert, well appearing, well nourished, no distress, non-toxic EYE EXAM: normal conjunctiva. PERRL and EOM's grossly intact. OROPHARYNX: mucous membranes are moist NECK: supple, no nuchal rigidity, no adenopathy, non-tender LUNGS: Clear to auscultation. Normal chest wall mechanics HEART: no murmurs, S1 normal and S2 normal ABDOMEN: abdomen soft, non-tender, normo-active bowel sounds, no masses, no rebound or guarding. UPPER EXTREMITIES: upper extremities are grossly normal. LOWER EXTREMITIES: No pitting edema. NEURO EXAM: Normal sensorium, cranial nerves II-XII grossly intact, normal speech, no gross weakness of arms, no gross weakness of legs. MEDICAL DECISION MAKING: Patient is an 82-year-old female who presents ER for above-stated complaint. IV was established blood work is obtained. Labs show leukopenia at 1.5. Anemia at 7.0. Thrombocytopenia present as well. Creatinine at 3.4 consistent with dialysis. LFTs were unremarkable. Troponin was 60 likely secondary to ckd. Patient was typed and screened. Chest x-ray shows small pleural effusions. Patient was updated bedside. Discussed with daughter at bedside who notes that patient cannot come home as she is too weak. Consequently discussed the hospitalist for further evaluation management treatment. Patient was given IV antibiotics. Discussed with Pt concerning signs and symptoms to watch out for. Pt was instructed to follow up with their PCP and discussed with the patient their option to return to the ED at anytime for persistent or worsening symptoms. The appropriate anticipatory guidance and out-patient management, including indications for return to the emergency department, were explained at length to the patient and understood. Consults/Care Managements Discussions: Per [facility] Triage Nursing notes reviewed. Limited review of prior medical records performed Vital Signs: reviewed and remarkable for no significant abnormalities Differential diagnosis: Infection, dehydration, metabolic abnormality, hypo/hyperglycemia, electrolyte disturbance, anemia, hypoxia, cardiac sources, intracerebral event, toxicologic, neurologic, as well as other pathologies. ER treatment provided: See below Diagnostics interpreted by me include EKG and cardiac monitoring as listed below: -Cardiac Monitoring: An order was placed for continuous cardiac monitoring. The monitor shows a rate of 80 with sinus rhythm. -ECG: none -Laboratory studies:Interpreted by me as stated above in MDM and shown below. Imaging studies: Xrays: As interpreted by me: Portable AP upright 1 view of the chest shows no focal infiltrate CTs show: none Procedures:none Critical Care: None Past Med/Surg History Medical History Palliative care by specialist Atrial fibrillation, permanent Clostridioides difficile carrier Pancytopenia Atrial fibrillation and flutter Hemorrhoids History of recent hospitalization GI BLEED/LOW BLOOD COUNT/HX BLOOD TRANSFUSION - MAY 2022 - [facility] GAVE (gastric antral vascular ectasia) ESRD on hemodialysis tuesdays, , and saturdays currently Poor historian History of GI bleed hx 08/2021, given transfusion-per medical record REASON FOR UPCOMING PROCEDURE Hx of atrial fibrillation, no current medication per medical report History of renal dialysis , AND SUN ([facility]CROSS FROM [facility]) ACCESS SITE RIGHT SIDE OF CHEST/ ? DETAILS History of CVA (cerebrovascular accident) (2019) ~5years ago, woke up with weakness in her rt hand; L lacunar infarct; previously on plavix>no residual effects Resistant hypertension Diabetes mellitus, type 2 Hearing deficit no hearing aids Urinary urgency Anemia of chronic disease Chronic diastolic heart failure Chronic hyponatremia Anxiety RBBB f/u dr. aguirre Aortic stenosis CAD (coronary artery disease) Secondary hyperparathyroidism of renal origin Diabetic retinopathy Essential tremor MINOR IN HAND Fatty liver First degree AV block GERD without esophagitis Hiatal hernia Hyperlipidemia Hypertension Hypothyroidism Osteoarthritis Restless legs Venous insufficiency 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 Surgical History History of esophagogastroduodenoscopy (EGD) multiple---last 08/01/2022 @ [facility] 04/06/22 at [facility] with Dr. Mich Pacheco- EGD- Gastric antral vascular ectasia with bleeding, treated with argon plasma coagulation (APC); Few angioectasias in the duodenum, treated with APC S/P pericardiocentesis 08/2021, [place], w/dr moura Hx of cardiac catheterization 08/2021, [facility] w/Dr. Moura for increased cardiac pressures; no stents History of tooth extraction History of colonoscopy H/O varicose vein ligation S/P trigger finger release S/P knee replacement RT/LEFT History of bladder suspension procedure X 2 S/P carpal tunnel release RT/LEFT History of back surgery (04/2010) X 2 S/P hysterectomy [place] Family History Father Alcohol abuse Heart disease Myocardial infarction Hypertension Sister Pancreatic cancer Diabetes Breast cancer Brother Diabetes Alcohol abuse Stroke Other Cancer No family history of adverse response to anesthesia Denies family history of Ovarian cancer Prostate cancer Colorectal cancer Social History Smoking Status: Never smoker Second Hand Exposure: No; Do You Dip or Chew Tobacco: No; Hx Alcohol Use: No Hx Substance Use: No Preferred Language: Lao Communication Ability: Effective Visual Impairment: No Limitations Hearing Ability: Normal Waterproofing Mixer Required: No Beliefs That Will Affect Care: None marital status: Single Current Living Situation: Alone current occupational status: retired How many Children do You have: 2 Other Information That Helps Us Care for You: No Feels Safe at Home: Yes Safety Concerns: Feels Safe At This Time Childhood Exposure to Second-Hand Smoke: No Diet: regular Diet Comment: regular caffeine: Yes (Coffee x 2 cups per day.) during the past year weight has: remained stable Dental Care, Regularly: No Physical Activity Frequency: Does not Exercise Seatbelt Use: always Sunscreen Use: Yes Assistive Devices: Denture - Upper and Denture - Lower Allergies Allergies Allergy/AdvReac Type Severity Reaction Status Date / Time sulfamethoxazole AdvReac Unknown REMOTE Verified 02/19/23 11:54 [From Bactrim] HX/PT NOT SURE REACTION trimethoprim [From Bactrim] AdvReac Unknown REMOTE Verified 02/19/23 11:54 HX/PT NOT SURE REACTION Home Meds Home Medications Medication Instructions Recorded Confirmed cholecalciferol (vitamin D3) 25 2,000 unit PO QAM 05/29/18 02/19/23 mcg (1,000 unit) capsule (Vitamin D3) cyanocobalamin (vitamin B-12) 1,000 mcg PO QAM 11/12/20 02/19/23 1,000 mcg tablet (Vitamin B-12) tamsulosin 0.4 mg capsule (Flomax) 0.4 mg PO QAM 11/12/20 02/19/23 sevelamer carbonate 800 mg tablet 1,600 mg PO BIDWMEAL 03/20/22 02/19/23 calcium citrate 200 mg (950 mg) 400 mg PO QAM 05/29/22 02/19/23 tablet loperamide 2 mg capsule 2 mg PO UD PRN Diarrhea 05/29/22 02/19/23 estradiol 0.01% (0.1 mg/gram) 1 applic vaginal 3XWK PRN ONLY 05/30/22 02/19/23 vaginal cream WHEN BURNING vitamin E 268 mg (400 unit) capsule 268 mg PO QAM 05/30/22 02/19/23 nystatin 100,000 unit/gram topical 1 applic topical BID PRN IRRITATION 07/10/22 02/19/23 powder cephalexin 500 mg capsule 500 mg PO DAILY 02/19/23 02/19/23 doxazosin 2 mg tablet 2 mg PO DAILY 02/19/23 02/19/23 ropinirole 0.5 mg tablet 0 mg PO BID 02/19/23 02/19/23 triamcinolone acetonide 0.05 % 1 applic topical BID PRN FLARE 02/19/23 02/19/23 topical ointment Previous Rx's Medication Instructions Recorded blood sugar diagnostic (Blood #100 ea 10/12/20 Glucose Test strips) bethanechol chloride 50 mg tablet 50 mg PO BID #180 tabs 04/19/21 Saccharomyces boulardii 250 mg 250 mg PO BID #180 caps 12/05/21 capsule (Florastor) diaper,brief,adult,disposable #150 ea 12/07/21 (Fitted Briefs X-Large) pantoprazole 40 mg tablet,delayed 40 mg PO BID #60 tabs 06/02/22 release (Protonix) atorvastatin 10 mg tablet (Lipitor) 10 mg PO HS #90 tabs 09/04/22 furosemide 80 mg tablet 80 mg PO BID #180 tabs 11/14/22 linagliptin 5 mg tablet (Tradjenta) 5 mg PO QAM #90 tabs 01/08/23 methocarbamol 500 mg tablet 500 mg PO TID PRN muscle spasm #90 01/14/23 tabs levothyroxine 150 mcg capsule 150 mcg PO QAM #90 caps 01/23/23 tramadol 50 mg tablet 50 mg PO BID PRN Pain #60 tabs 01/29/23 famotidine 20 mg tablet 20 mg PO BID 3 months #180 tabs 02/05/23 amlodipine 5 mg tablet 5 mg PO QAM #30 tabs 02/07/23 Results & Data (ED) Vital Signs Vital Signs - 24 hr 02/19/23 10:38 02/19/23 11:40 02/19/23 12:22 Temperature 36.9 C Temperature Source Temporal Artery Scan Pulse Rate 85 88 Pulse Rate [Apical] 88 Respiratory Rate 20 20 Respiratory Effort / Characteristics Non-Labored Spontaneous Respiratory Depth Normal Respiratory Pattern Regular Blood Pressure 124/59 L Blood Pressure [Left Arm] 124/61 Blood Pressure Mean 80 Blood Pressure Mean [Left Arm] 82 Blood Pressure Position Sitting Pulse Oximetry 96 95 Oxygen Delivery Method Room Air Room Air Sepsis Recent Fever Within 48 Hours No Sepsis New/Unexplained Change in Mental Status No Sepsis Action Taken by Nursing No Action Required 02/19/23 12:30 Temperature Temperature Source Pulse Rate Pulse Rate [Apical] Respiratory Rate Respiratory Effort / Characteristics Respiratory Depth Respiratory Pattern Blood Pressure Blood Pressure [Left Arm] Blood Pressure Mean Blood Pressure Mean [Left Arm] Blood Pressure Position Pulse Oximetry 95 Oxygen Delivery Method Room Air Sepsis Recent Fever Within 48 Hours Sepsis New/Unexplained Change in Mental Status Sepsis Action Taken by Nursing Laboratory Data 02/19/23 11:25 02/19/23 11:25 Lab Results 02/19/23 Range/Units 11:25 WBC 1.51 L (4.8-10.8) K/ul RBC 2.40 L (4.20-5.40) M/uL Hgb 7.0 L (12.0-16.0) g/dl Hct 22.6 L (37.0-47.0) % MCV 94.2 (80.0-100.0) fL MCH 29.2 (25.0-34.0) pg MCHC 31.0 L (32.0-36.0) g/dL RDW Std Deviation 51.1 H (36.4-46.3) fL RDW Coeff of Irasema 14.6 H (11.5-14.5) % Plt Count 85 L (130-400) K/uL MPV 11.0 (9.4-12.4) fL Immature Gran % (Auto) 0.7 % Neut % (Auto) 74.8 % Lymph % (Auto) 17.2 % Sully % (Auto) 6.6 % Eos % (Auto) 0.7 % Baso % (Auto) 0.0 % Neut # (Auto) 1.13 L (1.40-6.50) K/uL Lymph # (Auto) 0.26 L (1.20-3.40) K/uL Sully # (Auto) 0.10 L (0.11-0.59) K/uL Eos # (Auto) 0.01 (0.00-0.50) K/uL Baso # (Auto) 0.00 (0.00-0.20) K/uL Immature Gran # (Auto) 0.01 (0.01-0.20) K/uL Polychromasia 1+ Sodium 138 (136-145) mmol/L Potassium 3.3 L (3.5-5.1) mmol/L Chloride 98 (98-107) mmol/L Carbon Dioxide 31 (21-32) mmol/L Anion Gap 9 (3-11) BUN 44 H (6-23) mg/dl Creatinine 3.43 H (0.6-1.2) mg/dl Est Cr Clr Drug Dosing Not Reportable Est GFR ( Amer) 13.5 ml/min Est GFR (Non-Af Amer) 11.6 ml/min BUN/Creatinine Ratio 12.8 (10-20) Glucose 101 H (70-99(Fasting)) mg/dl Calcium 7.5 L (8.6-10.3) mg/dl Magnesium 2.0 (1.7-2.4) mg/dl Total Bilirubin 0.4 (0.2-1.0) mg/dl AST 24 (13-39) U/L ALT 9 (7-52) U/L Alkaline Phosphatase 142 H (34-104) U/L Troponin I High Sens 59.3 H* (0-14) pg/ml Total Protein 5.0 L (6.0-8.3) gm/dl Albumin 3.0 L (3.4-5.0) gm/dl Globulin 2.0 L (2.5-4.0) gm/dl Albumin/Globulin Ratio 1.5 (0.9-2) Lipase 43 (11-82) U/L Administered Medications Ropinirole HCl (Ropinirole Hcl 0.25 Mg Tablet) 0.5 mg PO DAILY@1400 [place] Stop: 03/21/23 13:59 Last Admin: 02/19/23 16:08 Dose: 0.5 mg Documented By: BK Discontinued Medications Cefepime HCl (Maxipime) 2,000 mg in 20 mls @ 5 mls/min IV NOW STA; Protocol Stop: 02/19/23 11:22 Last Admin: 02/19/23 11:29 Dose: 5 mls/min Documented By: KT Miscellaneous (Patient's Height Needed) 1 each N/A NOW STA Stop: 02/19/23 15:36 Last Admin: 02/19/23 17:26 Dose: 1 each Documented By: Imaging Data Radiologist's Impression: Chest X-Ray 02/19/23 11:18 XR chest 1V portable CLINICAL HISTORY: Chest pain, nonspecific. COMPARISON STUDY: Chest radiograph February 15, 2023. FINDINGS: Dual lumen right internal jugular catheter is in place. There is no pneumothorax. Moderate left and small right pleural effusions are unchanged. There are cystic bibasilar opacities, greater on the left. Cardiomediastinal silhouette stable. There is persistent pulmonary edema. Severe left glenohumeral joint osteoarthritis. IMPRESSION: 1. No change in appearance of the chest. Cardiomegaly with pulmonary edema. 2. Moderate left and small right pleural effusions. ACT 112: Negative or not required by law. Electronically signed by: William Hargrove M.D. 02/19/2023 11:50 AM Discharge Plan Visit Data Chief Complaint: Flu Like Symptoms Stated Complaint: FLU LIKE SYMPTOMS ED Provider: Bandar Venegas Discharge Problem: Weakness, UTI (urinary tract infection) Patient Disposition: Admitted As Inpatient Discharge Instructions Interventions: ED Discharge Assessment Last Done: 02/19/23 13:45 Discharge Problem: UTI (urinary tract infection) Qualifiers: Urinary tract infection type: acute cystitis
[2023-02-19 11:45] LABS: Eosinophils # (auto) 0.01 K/uL (0.00-0.50); Eosinophils % (auto) 0.7 %; Hematocrit (blood only) 22.6 % (37.0-47.0); Immature Granulocytes # (auto) 0.01 K/uL (0.01-0.20); Immature Granulocytes % (auto) 0.7 %; Lymphocytes # (auto) 0.26 K/uL (1.20-3.40); Lymphocytes % (auto) 17.2 %; Mean Corpuscular Hemoglobin 29.2 pg (25.0-34.0); Mean Corpuscular Volume 94.2 fL (80.0-100.0); Monocytes % (auto) 6.6 %; Neutrophils # (auto) 1.13 K/uL (1.40-6.50); Neutrophils % (auto) 74.8 %; Platelet Count 85 K/uL (130-400); RDW Coefficient of Variation 14.6 % (11.5-14.5); RDW Standard Deviation 51.1 fL (36.4-46.3); White Blood Count 1.51 K/ul (4.8-10.8)
--- NOTE | 2023-02-19 11:52 | XRay Report ---
XR chest 1V portable CLINICAL HISTORY: Chest pain, nonspecific. COMPARISON STUDY: Chest radiograph February 15, 2023. FINDINGS: Dual lumen right internal jugular catheter is in place. There is no pneumothorax. Moderate left and small right pleural effusions are unchanged. There are cystic bibasilar opacities, greater o n the left. Cardiomediastinal silhouette stable. There is persistent pulmonary edema. Severe left gle nohumeral joint osteoarthritis. IMPRESSION: 1. No change in appearance of the chest. Cardiomegaly with pulmonary edema. 2. Moderate left and small right pleural effusions. ACT 112: Negative or not required by law. Electronically signed by: William Hargrove M.D. 02/19/2023 11:50 AM
[2023-02-19 11:55] LABS: Anion Gap 9 (3-11); Bilirubin,Total 0.4 mg/dl (0.2-1.0); Calcium 7.5 mg/dl (8.6-10.3); Carbon Dioxide 31 mmol/L (21-32); Chloride 98 mmol/L (98-107); Potassium 3.3 mmol/L (3.5-5.1); Sodium 138 mmol/L (136-145)
[2023-02-19 12:01] LABS: Alanine Aminotransferase 9 U/L (7-52); Albumin Globulin Ratio 1.5 (0.9-2); Alkaline Phosphatase 142 U/L (34-104); Aspartate Aminotransferase 24 U/L (13-39); BUN Creatinine Ratio 12.8 (10-20); Blood Urea Nitrogen 44 mg/dl (6-23); Est GFR (African American) 13.5 ml/min; Est GFR (Non-African American) 11.6 ml/min; Glucose 101 mg/dl (70-99(Fasting)); Lipase 43 U/L (11-82)
[2023-02-19 12:07] LABS: Polychromasia 1+
[2023-02-19 12:08] LABS: Troponin I High Sensitivity 59.3 pg/ml (0-14)
--- NOTE | 2023-02-19 12:37 | History & Physical Report ---
Date of Service February 19, 2023 Assessment & Plan (1) Acute UTI: Plan: Clinically, patient endorses intermittent burning with urination; she reports that she is still producing urine Urine culture positive for Pseudomonas on 02/15 Was previously on Keflex 500 mg p.o. twice daily from 02/15 - 02/19 Started on cefepime while in the ED Blood cultures ordered, pending Continue cefepime 2000 mg q24h A.m. 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, as well as anemia of chronic disease Extensive history of blood transfusions Iron panel WNL Vitamin B12 and folate WNL 1u pRBC ordered in the ED; second unit on hold Repeat H&H ordered Continue to monitor s/p dialysis (4) ESRD (end stage renal disease) on dialysis: Plan: On HD //Sun Last dialysis on Saturday 02/17 BUN 44, creatinine 3.43, EGFR 11.6 at time of admission Mild hypokalemia at 3.3; recheck after dialysis Nephrology consulted for dialysis while inpatient (5) Pancytopenia: Plan: Leukopenic at 1.51 on arrival Anemic at Hgb 7.0 and Hct 22.6 on arrival Low platelets at 85 on arrival Continue to monitor with daily labs (6) Elevated troponin I level: Plan: Elevated troponin at 59.3 --> 58.7 Clinically, patient denies chest pain EKG on arrival showed sinus rhythm with first-degree AV block, old RBBB; QTc 545 (7) Diabetes mellitus type 2 with complications: Plan: Last A1c 4.6% on 04/06/22 Glucose at 101 on arrival Hold Tradjenta BSG ACHS Lantus 5u twice daily while inpatient Target BSG range 715213me/dL, CF 50, no carb ratio T2DM diet Adjust regimen as needed AM A1c (8) (HFpEF) heart failure with preserved ejection fraction: Plan: Echo on 02/15/2023 revealed LVEF >70%; moderate to severe aortic stenosis Continue Lasix Continue amlodipine (9) Atrial fibrillation, permanent: Plan: Chronic; not on rate control medications Not on anticoagulation due to GI bleeds EKG on arrival showed sinus rhythm with first-degree AV block; QTc 545 Continuous telemetry monitoring (10) Hyperlipidemia: Plan: Continue atorvastatin (11) Neurogenic bladder: Plan: Continue bethanechol chloride Plan Disposition: Admit to PCU telemetry DNR/DNI T2DM, dialysis renal diet VTE PPx: SCDs (hold chemical DVT PPx in the setting of recurrent GI bleeds and low Hgb) History of Present Illness Chief Complaint: Flu like symptoms Primary Care Provider: Agatha Alfaro DO Sully is an 82-year-old female with PMH of ESRD (on HD /), CAD, anemia of chronic disease, GERD, GAVE requiring frequent blood transfusions, anxiety, CVA, HLD, OA, RBBB, permanent atrial fibrillation (not on anticoagulation due to GI bleeds), HFpEF, T2DM, hypothyroidism, and . She presented for worsening flulike symptoms, generalized weakness, and dysuria x 6 days. Patient's daughter (Cher) is at the bedside and provides additional history. The patient was recently in the ED for a Pseudomonas UTI on 02/15 and was discharged on Keflex 500 mg p.o. BID x 7 days; however she was switched to cefdinir today 02/19. Of note, patient has GAVE and was recently at [facility] on Monday 02/12 for EGD and stomach banding for GI bleeds. Her symptoms started the next day on Tuesday 02/13, and included dry cough and generalized weakness. Patient ambulates with a walker at baseline. She endorses intermittent burning with urination, and urinary retention, but reports that she has recently been producing urine and consistently taking her Lasix twice daily. She only took her Lasix this morning, no other morning medications taken. Only recent medication change was stopping octreotide due to diarrhea. Patient lives alone. She reports that she has not been eating and drinking well; mainly toast and peanut butter in the mornings. No at home oxygen use. Patient's vital stable at time of admission. ED course: Cefepime 2000 mg IV ROS: Patient endorses generalized weakness, dry cough, wheezing, MCKEON (worse than usual), diarrhea, melena and dark stool (which has been ongoing for several months), intermittent right leg cramping extending from R hip to R knee (started Sunday), burning with urination, and intermittent urinary retention. Patient denies fever, chills, nightsweats, MURILLO, dizziness, CP, SOB at rest, pleuritic CP, abdominal pain, N/V, or back pain. She denies PMHx of DVT/PE PMH of MS, CHF, a fib, CVA, and skin cancer Allergies Allergy/AdvReac Type Severity Reaction Status Date / Time sulfamethoxazole AdvReac Unknown REMOTE Verified 02/19/23 11:54 [From Bactrim] HX/PT NOT SURE REACTION trimethoprim [From Bactrim] AdvReac Unknown REMOTE Verified 02/19/23 11:54 HX/PT NOT SURE REACTION Home Medications Medication Instructions Recorded Confirmed Type cholecalciferol (vitamin D3) 25 2,000 unit PO QAM 05/29/18 02/19/23 History mcg (1,000 unit) capsule (Vitamin D3) blood sugar diagnostic (Blood #100 ea 10/12/20 02/19/23 Rx Glucose Test strips) cyanocobalamin (vitamin B-12) 1,000 mcg PO QAM 11/12/20 02/19/23 History 1,000 mcg tablet (Vitamin B-12) tamsulosin 0.4 mg capsule (Flomax) 0.4 mg PO QAM 11/12/20 02/19/23 History bethanechol chloride 50 mg tablet 50 mg PO BID #180 tabs 04/19/21 02/19/23 Rx Saccharomyces boulardii 250 mg 250 mg PO BID #180 caps 12/05/21 02/19/23 Rx capsule (Florastor) diaper,brief,adult,disposable #150 ea 12/07/21 02/19/23 Rx (Fitted Briefs X-Large) sevelamer carbonate 800 mg tablet 1,600 mg PO BIDWMEAL 03/20/22 02/19/23 History calcium citrate 200 mg (950 mg) 400 mg PO QAM 05/29/22 02/19/23 History tablet loperamide 2 mg capsule 2 mg PO UD PRN Diarrhea 05/29/22 02/19/23 History estradiol 0.01% (0.1 mg/gram) 1 applic vaginal 3XWK PRN ONLY 05/30/22 02/19/23 History vaginal cream WHEN BURNING vitamin E 268 mg (400 unit) capsule 268 mg PO QAM 05/30/22 02/19/23 History pantoprazole 40 mg tablet,delayed 40 mg PO BID #60 tabs 06/02/22 02/19/23 Rx release (Protonix) nystatin 100,000 unit/gram topical 1 applic topical BID PRN IRRITATION 07/10/22 02/19/23 History powder atorvastatin 10 mg tablet (Lipitor) 10 mg PO HS #90 tabs 09/04/22 02/19/23 Rx furosemide 80 mg tablet 80 mg PO BID #180 tabs 11/14/22 02/19/23 Rx linagliptin 5 mg tablet (Tradjenta) 5 mg PO QAM #90 tabs 01/08/23 02/19/23 Rx methocarbamol 500 mg tablet 500 mg PO TID PRN muscle spasm #90 01/14/23 02/19/23 Rx tabs levothyroxine 150 mcg capsule 150 mcg PO QAM #90 caps 01/23/23 02/19/23 Rx tramadol 50 mg tablet 50 mg PO BID PRN Pain #60 tabs 01/29/23 02/19/23 Rx famotidine 20 mg tablet 20 mg PO BID 3 months #180 tabs 02/05/23 02/19/23 Rx amlodipine 5 mg tablet 5 mg PO QAM #30 tabs 02/07/23 02/19/23 Rx cephalexin 500 mg capsule 500 mg PO DAILY 02/19/23 02/19/23 History doxazosin 2 mg tablet 2 mg PO DAILY 02/19/23 02/19/23 History ropinirole 0.5 mg tablet 0 mg PO BID 02/19/23 02/19/23 History triamcinolone acetonide 0.05 % 1 applic topical BID PRN FLARE 02/19/23 02/19/23 History topical ointment Past Med/Surg History Medical History Palliative care by specialist Atrial fibrillation, permanent Clostridioides difficile carrier Pancytopenia Atrial fibrillation and flutter Hemorrhoids History of recent hospitalization GI BLEED/LOW BLOOD COUNT/HX BLOOD TRANSFUSION - MAY 2022 - [facility] GAVE (gastric antral vascular ectasia) ESRD on hemodialysis tuesdays, , and saturdays currently Poor historian History of GI bleed hx 08/2021, given transfusion-per medical record REASON FOR UPCOMING PROCEDURE Hx of atrial fibrillation, no current medication per medical report History of renal dialysis , AND SAT ([facility]CROSS FROM [facility]) ACCESS SITE RIGHT SIDE OF CHEST/ ? DETAILS History of CVA (cerebrovascular accident) (2019) ~5years ago, woke up with weakness in her rt hand; L lacunar infarct; previously on plavix>no residual effects Resistant hypertension Diabetes mellitus, type 2 Hearing deficit no hearing aids Urinary urgency Anemia of chronic disease Chronic diastolic heart failure Chronic hyponatremia Anxiety RBBB f/u dr. aguirre Aortic stenosis CAD (coronary artery disease) Secondary hyperparathyroidism of renal origin Diabetic retinopathy Essential tremor MINOR IN HAND Fatty liver First degree AV block GERD without esophagitis Hiatal hernia Hyperlipidemia Hypertension Hypothyroidism Osteoarthritis Restless legs Venous insufficiency 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 Surgical History History of esophagogastroduodenoscopy (EGD) multiple---last 08/01/2022 @ [facility] 04/06/22 at [facility] with Dr. Mich Pacheco- EGD- Gastric antral vascular ectasia with bleeding, treated with argon plasma coagulation (APC); Few angioectasias in the duodenum, treated with APC S/P pericardiocentesis 08/2021, [facility], w/dr moura Hx of cardiac catheterization 08/2021, [facility] w/Dr. Moura for increased cardiac pressures; no stents History of tooth extraction History of colonoscopy H/O varicose vein ligation S/P trigger finger release S/P knee replacement RT/LEFT History of bladder suspension procedure X 2 S/P carpal tunnel release RT/LEFT History of back surgery (04/2010) X 2 S/P hysterectomy [place] Family History Father Alcohol abuse Heart disease Myocardial infarction Hypertension Sister Pancreatic cancer Diabetes Breast cancer Brother Diabetes Alcohol abuse Stroke Other Cancer No family history of adverse response to anesthesia Denies family history of Ovarian cancer Prostate cancer Colorectal cancer Social History Smoking Status: Never smoker Second Hand Exposure: No; Do You Dip or Chew Tobacco: No; Hx Alcohol Use: No Hx Substance Use: No Preferred Language: Micronesian Communication Ability: Effective Visual Impairment: No Limitations Hearing Ability: Normal C Programmer Required: No Beliefs That Will Affect Care: None marital status: Single Current Living Situation: Alone current occupational status: retired How many Children do You have: 2 Other Information That Helps Us Care for You: No Feels Safe at Home: Yes Safety Concerns: Feels Safe At This Time Childhood Exposure to Second-Hand Smoke: No Diet: regular Diet Comment: regular caffeine: Yes (Coffee x 2 cups per day.) during the past year weight has: remained stable Dental Care, Regularly: No Physical Activity Frequency: Does not Exercise Seatbelt Use: always Sunscreen Use: Yes Assistive Devices: Denture - Upper and Denture - Lower Review of Systems Review of Systems: See HPI above Physical Exam Physical Exam: General: no acute distress; pleasant affect; non-toxic appearing; well- nourished; cooperative; SpO2 at 96% on RA HEENT: normocephalic, atraumatic; no scleral icterus; PERRLA w/ EOMs intact; moist mucus membrane; vision and hearing ntact Neck: supple; no JVD; no lymphadenopathy; trachea midline Skin: warm, dry without signs of tenting; no cyanosis; no rashes, bruising, lesions, or erythema noted CV: chest wall NTP; irregularly irregular rhythm; 4/6 systolic ejection murmur auscultated at the second ICS MCL; pulses intact and symmetric at radial, DP, and PT Lungs: no acute respiratory distress; inspiratory/expiratory wheeze across all lung phan; symmetrical chest wall expansion; clear breath sounds across all lung phan w/o adventitious sounds ABD: Soft, NTP; BS present; no rebound/guarding; no ascites; no distention; negative CVA tenderness MSK: no tics or fasciculations; +1 pitting edema extending from the ankles to knees B/L, mildly erythematous, with the LLE slightly bigger than right Neuro: A&Ox3; normal mood and affect; fluent speech; no focal deficits; sensation grossly intact in the LEs B/L Results & Data Results & Data Vital Signs (Past 12 Hours) Vital Signs Temp Pulse Resp BP Pulse Ox O2 Del Method 02/19/23 11:40 88 02/19/23 10:38 36.9 C 85 20 124/59 L 96 Room Air Laboratory Results Abnormal lab results 02/19/23 Range/Units 11:25 WBC 1.51 L (4.8-10.8) K/ul RBC 2.40 L (4.20-5.40) M/uL Hgb 7.0 L (12.0-16.0) g/dl Hct 22.6 L (37.0-47.0) % MCHC 31.0 L (32.0-36.0) g/dL RDW Std Deviation 51.1 H (36.4-46.3) fL RDW Coeff of Irasema 14.6 H (11.5-14.5) % Plt Count 85 L (130-400) K/uL Neut # (Auto) 1.13 L (1.40-6.50) K/uL Lymph # (Auto) 0.26 L (1.20-3.40) K/uL [place] # (Auto) 0.10 L (0.11-0.59) K/uL Potassium 3.3 L (3.5-5.1) mmol/L BUN 44 H (6-23) mg/dl Creatinine 3.43 H (0.6-1.2) mg/dl Glucose 101 H (70-99(Fasting)) mg/dl Calcium 7.5 L (8.6-10.3) mg/dl Alkaline Phosphatase 142 H (34-104) U/L Troponin I High Sens 59.3 H* (0-14) pg/ml Total Protein 5.0 L (6.0-8.3) gm/dl Albumin 3.0 L (3.4-5.0) gm/dl Globulin 2.0 L (2.5-4.0) gm/dl Diagnostic Findings Chest X-Ray 02/19/23 11:18 XR chest 1V portable CLINICAL HISTORY: Chest pain, nonspecific. COMPARISON STUDY: Chest radiograph February 15, 2023. FINDINGS: Dual lumen right internal jugular catheter is in place. There is no pneumothorax. Moderate left and small right pleural effusions are unchanged. There are cystic bibasilar opacities, greater on the left. Cardiomediastinal silhouette stable. There is persistent pulmonary edema. Severe left glenohumeral joint osteoarthritis. IMPRESSION: 1. No change in appearance of the chest. Cardiomegaly with pulmonary edema. 2. Moderate left and small right pleural effusions. ACT 112: Negative or not required by law. Electronically signed by: William Hargrove M.D. 02/19/2023 11:50 AM Code Status & VTE Plan Code Status DNR/DNI VTE Prophylaxis Plan VTE Prophylaxis will be ordered: Yes Supervising Physician Co-Signing Physician Notes I personally saw and examined the patient. I independently reviewed the labs, EKG, imaging, problem list, medication list, past medical history and family history. I verified all dixon points and agree with Rohit Solano PA-C with the following exceptions and/or additions: 82 year old female with ESRD on dialysis and GAVE with frequent blood transfusions recently diagnosed with pseudomonas UTI and influenza presents to the ER generalized fatigue and weakness. Not one sided. Non productive cough since last ER visit. Ongoing dysuria since last ER visit. No significant change to her ongoing back stool. O/E Chronically ill appearing, HS RRR, systolic murmur loudest in LUSB, Chest bibasal reduced breath sounds, no crackles or wheezing, Abdo SNT, No CVA tenderness, no unilateral weakness, no facial droop. A/P Generalized fatigue - suspect this is multifactorial related generalized deconditioning, influenza, anemia, pulmonary edema and UTI. PT/OT ordered for generalized deconditioning. No treatment for influenza at this stage. Anemia is secondary to GAVE - she has had 58 units in the since August 2021. Defer GI c onsult unless she continues to drop. Recommend transfusing hgb > 9 as she will continue drop so this gives her a bit more wiggle room and unable to rule out if symptoms due to anemia until we get her hemoglobin > 9. Nephrology to help manage her fluid balance with dialysis - consulted. Pseudomonas UTI -not really had adequate treatment for this as she was discharged on Keflex, she is unsure if she took any ciprofloxacin just picked up yesterday. Recommend treatment with cefepime while inpatient. Otherwise as above PG Care Time/CCT Total # of Minutes Spent Total Time Spent with Patient: Total time spent is greater than 50% in coordination of care (as documented) at patient's floor/unit and/or counseling patient: Coding [place] [address] INT INP/OBS CARE 375MIN Patient Type Established Medical Decision Making High Complexity Diagnoses Acute UTI N39.0 Influenza A J10.1 ABLA (acute blood loss anemia) D62 ESRD (end stage renal disease) on dialysis N18.6; Z99.2 Pancytopenia D61.818 Elevated troponin I level R77.8 Diabetes mellitus type 2 with complications E11.8 (HFpEF) heart failure with preserved ejection fraction I50.30 Atrial fibrillation, permanent I48.21 Hyperlipidemia E78.5 Neurogenic bladder N31.9
[2023-02-19] MEDS ORDERED: SODIUM CHLORIDE 0.9% 250 ML IV PRN ×2 (13:35→22:38)
[2023-02-19] MEDS ORDERED: CARBOHYDRATES FOR HYPOGLYCEMIA PO PRN (13:47)
[2023-02-19] MEDS ORDERED: GLUCAGON FOR INJ 1 MG VIAL SQ PRN (13:47)
[2023-02-19] MEDS ORDERED: traMADol HCL 50 MG TABLET PO PRN (13:47)
[2023-02-19] MEDS ORDERED: DEXTROSE 50% 50 ML SYRINGE IV PRN (13:47)
[2023-02-19] MEDS ORDERED: GLUCOSE 40% GEL 15 GM TUBE PO PRN (13:47)
[2023-02-19] MEDS ORDERED: GLUCOSE 10 TAB/TUBE PO PRN (13:47)
[2023-02-19] MEDS ORDERED: METHOCARBAMOL 500 MG TABLET PO PRN (13:47)
[2023-02-19] MEDS ORDERED: Patient's HEIGHT &/or WEIGHT Needed STA (13:53)
[2023-02-19 14:33] LABS: Reticulocyte % 1.4 % (0.5-2.0); Reticulocytes # 0.03 10^6/uL (0.02-0.10)
[2023-02-19 14:47] LABS: C Reactive Protein 1.51 mg/dl (0-0.5)
[2023-02-19 15:00] LABS: Troponin I High Sensitivity 58.7 pg/ml (0-14)
[2023-02-19 15:07] LABS: Ferritin 187.3 ng/ml (8-388)
[2023-02-19 15:12] LABS: Folate (Folic Acid),Ser orPlas > 22.30 ng/ml (>5.38)
[2023-02-19 15:13] LABS: Vitamin B12 > 1500 pg/ml (180-914)
--- NOTE | 2023-02-19 15:22 | Ultrasound Report ---
LEFT LOWER EXTREMITY VENOUS DOPPLER CLINICAL HISTORY: Left leg swelling. Evaluate for deep venous thrombus. COMPARISON STUDY: Bilateral lower extremity venous Doppler ultrasound May 02, 2010. TECHNIQUE: Sonography of the deep venous system of the left lower extremity was performed. Compressi on and augmentation were evaluated. FINDINGS: The left common femoral, superficial femoral and popliteal veins were compressible. Augmen tation was normal. Flow was shown within the deep calf vessels. Left lower extremity soft tissue swel ling is present. IMPRESSION: No evidence of deep venous thrombus within the left lower extremity. ACT 112: Negative or not required by law. Electronically signed by: William Hargrove M.D. 02/19/2023 3:21 PM
[2023-02-19] MEDS ORDERED: Patient's HEIGHT Needed STA (15:35)
[2023-02-19] MEDS: rOPINIRole HCL 0.25 MG TABLET PO SCH (16:08)
[2023-02-19] MEDS: SEVELAMER HCL 800 MG TABLET PO SCH (18:15)
[2023-02-19] MEDS: FUROSEMIDE 80 MG TAB PO SCH (18:16)
[2023-02-19] MEDS: INSULIN ASPART PER UNIT CHARGE SC SCH ×2 (18:41→20:45)
[2023-02-19] MEDS ORDERED: LORazepam 0.25 MG in SYRINGE 0.125 ML IV STA (20:18)
[2023-02-19 20:38] LABS: Eosinophils # (auto) 0.02 K/uL (0.00-0.50); Eosinophils % (auto) 0.9 %; Hemoglobin 8.4 g/dl (12.0-16.0); Immature Granulocytes # (auto) 0.01 K/uL (0.01-0.20); Immature Granulocytes % (auto) 0.4 %; Lymphocytes # (auto) 0.33 K/uL (1.20-3.40); Lymphocytes % (auto) 14.7 %; Mean Corpuscular Hemoglobin 28.6 pg (25.0-34.0); Mean Corpuscular Hgb Conc 31.1 g/dL (32.0-36.0); Mean Corpuscular Volume 91.8 fL (80.0-100.0); Mean Platelet Volume 10.9 fL (9.4-12.4); Monocytes # (auto) 0.16 K/uL (0.11-0.59); Monocytes % (auto) 7.1 %; Neutrophils # (auto) 1.72 K/uL (1.40-6.50); Neutrophils % (auto) 76.9 %; Platelet Count 88 K/uL (130-400); RDW Coefficient of Variation 14.8 % (11.5-14.5); RDW Standard Deviation 49.9 fL (36.4-46.3); Red Blood Count 2.94 M/uL (4.20-5.40); White Blood Count 2.24 K/ul (4.8-10.8)
[2023-02-19] MEDS: LANTUS PER UNIT CHARGE SQ SCH (20:45)
[2023-02-19] MEDS: PANTOprazole 40 MG TAB PO SCH (20:54)
[2023-02-19] MEDS: ATORVASTATIN 10 MG TAB PO SCH (20:54)
[2023-02-19] MEDS: BETHANECHOL CHL 25 MG TAB PO SCH (20:54)
[2023-02-19] MEDS: SACCHAROMYCES BOULARDII 250 MG CAP PO SCH (20:54)
[2023-02-19] MEDS: rOPINIRole HCL 1 MG TABLET PO SCH (20:54)
[2023-02-19] MEDS: CEFEPIME 1,000 MG in SYRINGE 0 ML IV SCH (22:32)
[2023-02-19] MEDS ORDERED: COUGH DROP (SUGAR FREE) LOZ 24 LOZ/1 BOX BUCCAL STA (22:46)
[2023-02-20 02:19] LABS: BUN Creatinine Ratio 12.7 (10-20); Calcium 7.5 mg/dl (8.6-10.3); Creatinine Clr Calc Pharmacy 8.8 ml/min; Est GFR (Non-African American) 10.4 ml/min; Potassium 3.5 mmol/L (3.5-5.1)
[2023-02-20 02:24] LABS: Basophils # (auto) 0.01 K/uL (0.00-0.20); Basophils % (auto) 0.4 %; Eosinophils # (auto) 0.02 K/uL (0.00-0.50); Eosinophils % (auto) 0.8 %; Hematocrit (blood only) 30.3 % (37.0-47.0); Hemoglobin 9.7 g/dl (12.0-16.0); Immature Granulocytes # (auto) 0.01 K/uL (0.01-0.20); Immature Granulocytes % (auto) 0.4 %; Lymphocytes % (auto) 12.2 %; Mean Corpuscular Hemoglobin 28.8 pg (25.0-34.0); Mean Corpuscular Volume 89.9 fL (80.0-100.0); Mean Platelet Volume 11.3 fL (9.4-12.4); Monocytes % (auto) 8.1 %; Neutrophils # (auto) 1.92 K/uL (1.40-6.50); Neutrophils % (auto) 78.1 %; Platelet Count 97 K/uL (130-400); RDW Coefficient of Variation 15.1 % (11.5-14.5); RDW Standard Deviation 50.4 fL (36.4-46.3); Red Blood Count 3.37 M/uL (4.20-5.40); White Blood Count 2.46 K/ul (4.8-10.8)
[2023-02-20] MEDS: LEVOTHYROXINE SODIUM 150 MCG TABLET PO SCH (05:30)
[2023-02-20] MEDS: guaiFENesin/DEXTROM SYRUP 200MG/20MG 10ML UDC PO PRN ×2 (06:23→22:44)
[2023-02-20 07:12] LABS: Estimated Average Glucose 88 mg/dl; Hemoglobin A1C 4.7 % (4.5-5.6)
[2023-02-20] MEDS: BETHANECHOL CHL 25 MG TAB PO SCH ×2 (09:55→23:48)
[2023-02-20] MEDS: SEVELAMER HCL 800 MG TABLET PO SCH ×2 (09:55→18:21)
[2023-02-20] MEDS: PANTOprazole 40 MG TAB PO SCH ×2 (09:56→23:48)
[2023-02-20] MEDS: CYANOCOBALAMIN (B-12) 500 MCG TABLET PO SCH (09:56)
[2023-02-20] MEDS: CALCIUM CITRATE 950 MG TAB PO SCH (09:56)
[2023-02-20] MEDS: SACCHAROMYCES BOULARDII 250 MG CAP PO SCH ×2 (09:56→23:49)
[2023-02-20] MEDS: TAMSULOSIN HCL 0.4 MG CAP PO SCH (09:56)
[2023-02-20] MEDS: INSULIN ASPART PER UNIT CHARGE SC SCH ×4 (09:57→22:48)
[2023-02-20] MEDS: amLODIPine BESYLATE 5 MG TAB PO SCH (10:00)
[2023-02-20] MEDS: FUROSEMIDE 80 MG TAB PO SCH ×2 (10:01→18:19)
[2023-02-20] MEDS: DOXAZosin MESYLATE TAB 2 MG TAB PO SCH (10:01)
[2023-02-20] MEDS: LANTUS PER UNIT CHARGE SQ SCH ×2 (10:03→22:51)
[2023-02-20] MEDS ORDERED: SODIUM CHLORIDE 0.9% 1,000 ML IV PRN (10:54)
[2023-02-20] MEDS ORDERED: CEFEPIME 2,000 MG in SYRINGE 0 ML IV SCH (11:00)
--- NOTE | 2023-02-20 11:08 | Nephrology Consultation ---
Date of Consultation February 20, 2023 Assessment & Plan (1) ESRD (end stage renal disease) on dialysis: * ESKD due to CRS (severe ) * Outpatient HD: [facility] TTS, 3.5hr, 2K 2.5Ca 1Mg F-180NR, EDW 65.5 kg * Will provide heparin free HD today using R IJ TCC. Patient is near EDW and appears clinically euvolemic. Will order only 1L UF * Monitor PRP (2) Influenza: * On Oseltamivir. Dose appropriate for ESKD-D (3) UTI (urinary tract infection): * On IV Cefepime (4) GAVE (gastric antral vascular ectasia): * s/p gastric banding 02/12/23 at [facility] * Hgb 9.7 today * Hold heparin on HD due to h/o GAVE requiring multiple blood transfusions History of Present Illness Reason for Consultation: ESKD-D Attending Physician: Garcia Nguyen History of Present Illness Ms. Ray is an 82 year old white female who is seen at the request of the [facility] Hospitalist Service to provide inpatient HD and assist w/ medical management. Information for the HPI is obtained from direct patient interview and review of the EMR. HPI is summarized as follows: Ms. 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 She has been on HD since 08/23 and currently dialyzes TTS at [facility] under the care of Dr. Will (3.5hr, 2K 2.5Ca 1Mg F-180NR, EDW 65.5 kg). Her medical history is also significant for severe , mitral stenosis, R heart failure, permanent atrial fibrillation (not on anticoagulation due to GI bleeds), GAVE w/ recurrent UGI bleed requiring frequent blood transfusion, CVA, AODM, hypothyroidism. Ms. Ray was hospitalized at [place], [place] 02/12/23- 02/13/23 for EGD and stomach banding due to recurrent GI bleed. She reports generalized weakness starting the next day. Ms. Ray states that she was diagnosed w/ Influenza and UTI. She was admitted to [facility] last evening due to weakness. Respiratory biofire on admission was negative (including Influenza/COVID). Urine culture from 02/15/23 is + for pansensitive Pseudomonas. She is currently on Tamiflu and Cefepime. Allergies Allergy/AdvReac Type Severity Reaction Status Date / Time sulfamethoxazole AdvReac Unknown REMOTE Verified 02/19/23 11:54 [From Bactrim] HX/PT NOT SURE REACTION trimethoprim [From Bactrim] AdvReac Unknown REMOTE Verified 02/19/23 11:54 HX/PT NOT SURE REACTION Home Medications Medication Instructions Recorded Confirmed Type cholecalciferol (vitamin D3) 25 2,000 unit PO QAM 05/29/18 02/19/23 History mcg (1,000 unit) capsule (Vitamin D3) blood sugar diagnostic (Blood #100 ea 10/12/20 02/19/23 Rx Glucose Test strips) cyanocobalamin (vitamin B-12) 1,000 mcg PO QAM 11/12/20 02/19/23 History 1,000 mcg tablet (Vitamin B-12) tamsulosin 0.4 mg capsule (Flomax) 0.4 mg PO QAM 11/12/20 02/19/23 History bethanechol chloride 50 mg tablet 50 mg PO BID #180 tabs 04/19/21 02/19/23 Rx Saccharomyces boulardii 250 mg 250 mg PO BID #180 caps 12/05/21 02/19/23 Rx capsule (Florastor) diaper,brief,adult,disposable #150 ea 12/07/21 02/19/23 Rx (Fitted Briefs X-Large) sevelamer carbonate 800 mg tablet 1,600 mg PO BIDWMEAL 03/20/22 02/19/23 History calcium citrate 200 mg (950 mg) 400 mg PO QAM 05/29/22 02/19/23 History tablet loperamide 2 mg capsule 2 mg PO UD PRN Diarrhea 05/29/22 02/19/23 History estradiol 0.01% (0.1 mg/gram) 1 applic vaginal 3XWK PRN ONLY 05/30/22 02/19/23 History vaginal cream WHEN BURNING vitamin E 268 mg (400 unit) capsule 268 mg PO QAM 05/30/22 02/19/23 History pantoprazole 40 mg tablet,delayed 40 mg PO BID #60 tabs 06/02/22 02/19/23 Rx release (Protonix) nystatin 100,000 unit/gram topical 1 applic topical BID PRN IRRITATION 07/10/22 02/19/23 History powder atorvastatin 10 mg tablet (Lipitor) 10 mg PO HS #90 tabs 09/04/22 02/19/23 Rx furosemide 80 mg tablet 80 mg PO BID #180 tabs 11/14/22 02/19/23 Rx linagliptin 5 mg tablet (Tradjenta) 5 mg PO QAM #90 tabs 01/08/23 02/19/23 Rx methocarbamol 500 mg tablet 500 mg PO TID PRN muscle spasm #90 01/14/23 02/19/23 Rx tabs levothyroxine 150 mcg capsule 150 mcg PO QAM #90 caps 01/23/23 02/19/23 Rx tramadol 50 mg tablet 50 mg PO BID PRN Pain #60 tabs 01/29/23 02/19/23 Rx famotidine 20 mg tablet 20 mg PO BID 3 months #180 tabs 02/05/23 02/19/23 Rx amlodipine 5 mg tablet 5 mg PO QAM #30 tabs 02/07/23 02/19/23 Rx cephalexin 500 mg capsule 500 mg PO DAILY 02/19/23 02/19/23 History doxazosin 2 mg tablet 2 mg PO DAILY 02/19/23 02/19/23 History ropinirole 0.5 mg tablet 0 mg PO BID 02/19/23 02/19/23 History triamcinolone acetonide 0.05 % 1 applic topical BID PRN FLARE 02/19/23 02/19/23 History topical ointment Patient History Medical History Palliative care by specialist Atrial fibrillation, permanent Clostridioides difficile carrier Pancytopenia Atrial fibrillation and flutter Hemorrhoids History of recent hospitalization GI BLEED/LOW BLOOD COUNT/HX BLOOD TRANSFUSION - MAY 2022 - [facility] GAVE (gastric antral vascular ectasia) ESRD on hemodialysis tuesdays, , and saturdays currently Poor historian History of GI bleed hx 08/2021, given transfusion-per medical record REASON FOR UPCOMING PROCEDURE Hx of atrial fibrillation, no current medication per medical report History of renal dialysis , AND SAT ([facility] [place]OSS FROM [facility]) ACCESS SITE RIGHT SIDE OF CHEST/ ? DETAILS History of CVA (cerebrovascular accident) (2019) ~5years ago, woke up with weakness in her rt hand; L lacunar infarct; previously on plavix>no residual effects Resistant hypertension Diabetes mellitus, type 2 Hearing deficit no hearing aids Urinary urgency Anemia of chronic disease Chronic diastolic heart failure Chronic hyponatremia Anxiety RBBB f/u dr. aguirre Aortic stenosis CAD (coronary artery disease) Secondary hyperparathyroidism of renal origin Diabetic retinopathy Essential tremor MINOR IN HAND Fatty liver First degree AV block GERD without esophagitis Hiatal hernia Hyperlipidemia Hypertension Hypothyroidism Osteoarthritis Restless legs Venous insufficiency 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 Surgical History History of esophagogastroduodenoscopy (EGD) multiple---last 08/01/2022 @ [facility] 04/06/22 at [facility] with Dr. Mich Pacheco- EGD- Gastric antral vascular ectasia with bleeding, treated with argon plasma coagulation (APC); Few angioectasias in the duodenum, treated with APC S/P pericardiocentesis 08/2021, [place], w/dr moura Hx of cardiac catheterization 08/2021, [place] w/Dr. Moura for increased cardiac pressures; no stents History of tooth extraction History of colonoscopy H/O varicose vein ligation S/P trigger finger release S/P knee replacement RT/LEFT History of bladder suspension procedure X 2 S/P carpal tunnel release RT/LEFT History of back surgery (04/2010) X 2 S/P hysterectomy [place] Family History Father Alcohol abuse Heart disease Myocardial infarction Hypertension Sister Pancreatic cancer Diabetes Breast cancer Brother Diabetes Alcohol abuse Stroke Other Cancer No family history of adverse response to anesthesia Denies family history of Ovarian cancer Prostate cancer Colorectal cancer Social History Smoking Status: Never smoker Second Hand Exposure: No; Do You Dip or Chew Tobacco: No; Hx Alcohol Use: No Hx Substance Use: No Preferred Language: Nicaraguan Communication Ability: Effective Visual Impairment: No Limitations Hearing Ability: Normal Comber Fixer Required: No Beliefs That Will Affect Care: None marital status: Single Current Living Situation: Alone current occupational status: retired How many Children do You have: 2 Feels Safe at Home: Yes Childhood Exposure to Second-Hand Smoke: No Diet: regular Diet Comment: regular caffeine: Yes (Coffee x 2 cups per day.) during the past year weight has: remained stable Dental Care, Regularly: No Physical Activity Frequency: Does not Exercise Seatbelt Use: always Sunscreen Use: Yes Assistive Devices: Walker Review of Systems Constitutional: no fever Eyes: no problem reported Ear, Nose, Mouth, Throat: no problem reported Respiratory: + cough; no sputum production Cardiovascular: no chest pain Gastrointestinal: no abdominal pain, no nausea, no vomiting and no diarrhea/loose stools Genitourinary: + dysuria Integumentary: no rash Physical Exam Constitutional: + frail appearing Eyes: PERRL, conjunctivae normal, anicteric sclerae ENMT: external ear and nose normal, oropharynx normal Neck: trachea midline, no thyromegaly R IJ TCC Respiratory: no respiratory distress bibasilar inspiratory rales Cardiovascular: Rate/Rhythm: + irregularly irregular Gastrointestinal (Abdomen): normal bowel sounds, soft, nontender, no hepatosplenomegaly Skin: + turgor decreased Neurologic: Speech / Cognition: normal speech and normal cognition Psychiatric: Affect: + anxious affect Results & Data Vital Signs (Past 12 Hours) Vital Signs Temp Pulse Pulse Resp BP BP Pulse Ox 02/20/23 08:27 71 02/20/23 07:27 36.6 C 77 18 145/69 H 95 02/20/23 03:51 37.4 C 65 18 137/81 95 02/20/23 00:55 36.5 C 78 16 144/65 H 92 02/20/23 00:49 36.8 C 78 18 144/65 H 92 02/20/23 00:13 36.9 C 77 16 121/65 92 02/20/23 00:00 74 02/19/23 23:43 36.8 C 76 18 126/73 93 02/19/23 23:28 36.9 C 80 18 138/74 95 02/19/23 23:11 37.0 C 89 18 136/75 96 O2 Del Method 02/20/23 08:27 02/20/23 07:27 Room Air 02/20/23 03:51 Room Air 02/20/23 00:55 02/20/23 00:49 02/20/23 00:13 02/20/23 00:00 02/19/23 23:43 02/19/23 23:28 02/19/23 23:11 Laboratory Results Laboratory Results WBC 2.46 K/ul (4.8-10.8) L 12/19/23 01:43 RBC 3.37 M/uL (4.20-5.40) L 02/20/23 01:43 Hgb 9.7 g/dl (12.0-16.0) L 02/20/23 01:43 Hct 30.3 % (37.0-47.0) L 02/20/23 01:43 MCV 89.9 fL (80.0-100.0) 02/20/23 01:43 MCH 28.8 pg (25.0-34.0) 02/20/23 01:43 MCHC 32.0 g/dL (32.0-36.0) 02/20/23 01:43 RDW Std Deviation 50.4 fL (36.4-46.3) H 02/20/23 01:43 RDW Coeff of Irasema 15.1 % (11.5-14.5) H 02/20/23 01:43 Plt Count 97 K/uL (130-400) L 02/20/23 01:43 MPV 11.3 fL (9.4-12.4) 02/20/23 01:43 Immature Gran % (Auto) 0.4 % 02/20/23 01:43 Neut % (Auto) 78.1 % 02/20/23 01:43 Lymph % (Auto) 12.2 % 02/20/23 01:43 Beaver % (Auto) 8.1 % 02/20/23 01:43 Eos % (Auto) 0.8 % 02/20/23 01:43 Baso % (Auto) 0.4 % 02/20/23 01:43 Reticulocyte % (Auto) 1.4 % (0.5-2.0) 02/19/23 14:10 Neut # (Auto) 1.92 K/uL (1.40-6.50) 02/20/23 01:43 Lymph # (Auto) 0.30 K/uL (1.20-3.40) L 02/20/23 01:43 Beaver # (Auto) 0.20 K/uL (0.11-0.59) 02/20/23 01:43 Eos # (Auto) 0.02 K/uL (0.00-0.50) 02/20/23 01:43 Baso # (Auto) 0.01 K/uL (0.00-0.20) 02/20/23 01:43 Reticulocyte # 0.03 10^6/uL (0.02-0.10) 02/19/23 14:10 Immature Gran # (Auto) 0.01 K/uL (0.01-0.20) 02/20/23 01:43 Polychromasia 1+ 02/19/23 11:25 ESR 10 mm/hr (0-30) 02/19/23 14:10 Sodium 136 mmol/L (136-145) 02/20/23 01:43 Potassium 3.5 mmol/L (3.5-5.1) 02/20/23 01:43 Chloride 98 mmol/L (98-107) 02/20/23 01:43 Carbon Dioxide 29 mmol/L (21-32) 02/20/23 01:43 Anion Gap 9 (3-11) 02/20/23 01:43 BUN 48 mg/dl (6-23) H 02/20/23 01:43 Creatinine 3.77 mg/dl (0.6-1.2) H D 02/20/23 01:43 Est Cr Clr Drug Dosing 8.8 ml/min 02/20/23 01:43 Est GFR ( Amer) 12.0 ml/min 02/20/23 01:43 Est GFR (Non-Af Amer) 10.4 ml/min 02/20/23 01:43 BUN/Creatinine Ratio 12.7 (10-20) 02/20/23 01:43 Glucose 119 mg/dl (70-99(Fasting)) H 02/20/23 01:43 POC Glucose 111 mg/dl (70-99) H 02/20/23 07:23 Estimat Average Glucose 88 mg/dl 02/20/23 01:43 Hemoglobin A1c 4.7 % (4.5-5.6) 02/20/23 01:43 Calcium 7.5 mg/dl (8.6-10.3) L 02/20/23 01:43 Magnesium 2.0 mg/dl (1.7-2.4) 02/19/23 11:25 Iron 44 mcg/dl (35-150) 02/19/23 14:10 TIBC 266 mcg/dl (250-450) 02/19/23 14:10 Unsaturated IBC 222 mcg/dl (155-355) 02/19/23 14:10 Transferrin % Sat 17 % (15-50) 02/19/23 14:10 Ferritin 187.3 ng/ml (8-388) 02/19/23 14:10 Total Bilirubin 0.4 mg/dl (0.2-1.0) 02/19/23 11:25 AST 24 U/L (13-39) 02/19/23 11:25 ALT 9 U/L (7-52) 02/19/23 11:25 Alkaline Phosphatase 142 U/L (34-104) H 02/19/23 11:25 Lactate Dehydrogenase 154 U/L (86-244) 02/19/23 14:10 Troponin I High Sens 58.7 pg/ml (0-14) H* 02/19/23 14:10 C-Reactive Protein 1.51 mg/dl (0-0.5) H 02/19/23 14:10 Total Protein 5.0 gm/dl (6.0-8.3) L 02/19/23 11:25 Albumin 3.0 gm/dl (3.4-5.0) L 02/19/23 11:25 Globulin 2.0 gm/dl (2.5-4.0) L 02/19/23 11:25 Albumin/Globulin Ratio 1.5 (0.9-2) 02/19/23 11:25 Lipase 43 U/L (11-82) 02/19/23 11:25 Vitamin B12 > 1500 pg/ml (180-914) H 02/19/23 14:10 Folate > 22.30 ng/ml (>5.38) 02/19/23 14:10 Procalcitonin 0.72 ng/ml (0-0.5) H 02/19/23 14:10 Blood Type O Positive 02/19/23 14:10 Antibody Screen NEGATIVE 02/19/23 14:10 Crossmatch See Detail 02/19/23 14:10 Impressions Chest X-Ray 02/19/23 11:18 XR chest 1V portable CLINICAL HISTORY: Chest pain, nonspecific. COMPARISON STUDY: Chest radiograph February 15, 2023. FINDINGS: Dual lumen right internal jugular catheter is in place. There is no pneumothorax. Moderate left and small right pleural effusions are unchanged. There are cystic bibasilar opacities, greater on the left. Cardiomediastinal silhouette stable. There is persistent pulmonary edema. Severe left glenohumeral joint osteoarthritis. IMPRESSION: 1. No change in appearance of the chest. Cardiomegaly with pulmonary edema. 2. Moderate left and small right pleural effusions. ACT 112: Negative or not required by law. Electronically signed by: William Hargrove M.D. 02/19/2023 11:50 AM Venous Doppler Study 02/19/23 14:03 LEFT LOWER EXTREMITY VENOUS DOPPLER CLINICAL HISTORY: Left leg swelling. Evaluate for deep venous thrombus. COMPARISON STUDY: Bilateral lower extremity venous Doppler ultrasound May 02, 2010. TECHNIQUE: Sonography of the deep venous system of the left lower extremity was performed. Compression and augmentation were evaluated. FINDINGS: The left common femoral, superficial femoral and popliteal veins were compressible. Augmentation was normal. Flow was shown within the deep calf vessels. Left lower extremity soft tissue swelling is present. IMPRESSION: No evidence of deep venous thrombus within the left lower extremity. ACT 112: Negative or not required by law. Electronically signed by: William Hargrove M.D. 02/19/2023 3:21 PM PG Care Time/CCT Total # of Minutes Spent Total Time Spent with Patient: Total time spent is greater than 50% in coordination of care (as documented) at patient's floor/unit and/or counseling patient: Coding Level of Care Code 81716 IN/OBS CONSULT LVL 5,80M Diagnoses ESRD (end stage renal disease) on dialysis N18.6; Z99.2 Influenza J11.1 UTI (urinary tract infection) N39.0 Urinary tract infection type: acute cystitis GAVE (gastric antral vascular ectasia) K31.819 (3) UTI (urinary tract infection) Urinary tract infection type: acute cystitis
[2023-02-20] MEDS ORDERED: OSELTAMIVIR PHOSPHATE SUSP 30 MG/5 ML UDP PO STA (11:19)
[2023-02-20] MEDS ORDERED: BENZONATATE 100 MG CAPSULE PO ONE (11:46)
[2023-02-20] MEDS: CEFEPIME 1,000 MG in SYRINGE 0 ML IV SCH (12:17)
[2023-02-20] MEDS: rOPINIRole HCL 0.25 MG TABLET PO SCH ×2 (14:22→23:48)
[2023-02-20] MEDS: OSELTAMIVIR PHOSPHATE SUSP 30 MG/5 ML UDP PO SCH (18:17)
--- NOTE | 2023-02-20 22:33 | Hospitalist Progress Note ---
Date of Service February 20, 2023 Assessment & Plan (1) Acute UTI: Plan: Clinically, patient endorses intermittent burning with urination; she reports that she is still producing urine Urine culture positive for Pseudomonas on 02/15 Was previously on Keflex 500 mg p.o. twice daily from 02/15 - 02/19 Started on cefepime while in the ED Blood cultures ordered, pending Continue cefepime 2000 mg q24h will monitor (2) Influenza A: Plan: + Nasal influenza A H 03/2008 on 02/15 Patient m,eets criteria for tamiflu first dose today. will monitlor CXR revealed moderate left and small right pleural effusions Procalcitonin mildly elevated at 0.72 CRP elevated at 1.5 ESR WNL at 10 Supportive care with fluid Supplemental oxygen as needed to maintain SpO2 >94% (3) ABLA (acute blood loss anemia): Plan: Hgb 7.0 on arrival Chronically low secondary to recurrent GI bleed due to GAVE, as well as anemia of chronic disease Extensive history of blood transfusions Iron panel WNL Vitamin B12 and folate WNL 1u pRBC ordered in the ED; second unit on hold Repeat H&H ordered Continue to monitor s/p dialysis (4) ESRD (end stage renal disease) on dialysis: Plan: On HD //Sun Last dialysis on Saturday 02/17 BUN 44, creatinine 3.43, EGFR 11.6 at time of admission Mild hypokalemia at 3.3; recheck after dialysis Nephrology consulted for dialysis while inpatient (5) Pancytopenia: Plan: Leukopenic at 1.51 on arrival Anemic at Hgb 7.0 and Hct 22.6 on arrival Low platelets at 85 on arrival Continue to monitor with daily labs (6) Elevated troponin I level: Plan: Elevated troponin at 59.3 --> 58.7 Clinically, patient denies chest pain EKG on arrival showed sinus rhythm with first-degree AV block, old RBBB; QTc 545 (7) Diabetes mellitus type 2 with complications: Plan: Last A1c 4.6% on 04/06/22 Glucose at 101 on arrival Hold Tradjenta BSG ACHS Lantus 5u twice daily while inpatient Target BSG range [id number]/dL, CF 50, no carb ratio T2DM diet Adjust regimen as needed AM A1c (8) (HFpEF) heart failure with preserved ejection fraction: Plan: Echo on 02/15/2023 revealed LVEF >70%; moderate to severe aortic stenosis Continue Lasix Continue amlodipine (9) Atrial fibrillation, permanent: Plan: Chronic; not on rate control medications Not on anticoagulation due to GI bleeds EKG on arrival showed sinus rhythm with first-degree AV block; QTc 545 Continuous telemetry monitoring (10) Hyperlipidemia: Plan: Continue atorvastatin (11) Neurogenic bladder: Plan: Continue bethanechol chloride Plan Disposition: Admit to PCU telemetry DNR/DNI T2DM, dialysis renal diet VTE PPx: SCDs (hold chemical DVT PPx in the setting of recurrent GI bleeds and low Hgb) Admission and Anticipated Discharge Date Admission Date: February 19, 2023 Subjective Patient reports having a cough. She does reports feeling slightly stronger today. Review of Systems Review of Systems: All systems reviewed & are unremarkable except as noted in HPI & below Physical Exam Constitutional: + frail appearing Eyes: PERRL, conjunctivae normal, anicteric sclerae ENMT: external ear and nose normal, oropharynx normal Neck: trachea midline, no thyromegaly Respiratory: no respiratory distress Cardiovascular: Rate/Rhythm: + irregularly irregular Gastrointestinal (Abdomen): normal bowel sounds, soft, nontender, no hepatosplenomegaly Skin: + turgor decreased Neurologic: Speech / Cognition: normal speech and normal cognition Psychiatric: Affect: + anxious affect Results & Data Results & Data Vital Signs (Past 12 Hours) Vital Signs Temp Pulse Pulse Pulse Resp BP BP 02/20/23 19:00 36.5 C 87 21 02/20/23 18:15 36.6 C 90 02/20/23 17:48 84 02/20/23 17:30 89 158/71 H 02/20/23 17:00 90 156/68 H 02/20/23 16:30 86 161/68 H 02/20/23 16:00 87 173/73 H 02/20/23 15:30 88 161/71 H 02/20/23 15:00 81 152/61 H 02/20/23 14:30 89 173/71 H 02/20/23 14:09 36.6 C 91 H 02/20/23 13:17 02/20/23 11:39 36.4 C L 73 18 161/69 H BP Pulse Ox O2 Del Method 02/20/23 19:00 134/68 96 Room Air 02/20/23 18:15 164/72 H 02/20/23 17:48 02/20/23 17:30 02/20/23 17:00 02/20/23 16:30 02/20/23 16:00 02/20/23 15:30 02/20/23 15:00 02/20/23 14:30 02/20/23 14:09 02/20/23 13:17 Room Air 02/20/23 11:39 96 Room Air PG Care Time/CCT Total # of Minutes Spent Total Time Spent with Patient: Total time spent is greater than 50% in coordination of care (as documented) at patient's floor/unit and/or counseling patient: Coding Level of Care Code 09570 SUB INP/OBS CARE 2/35MIN Diagnoses Acute UTI N39.0 Influenza A J10.1 ABLA (acute blood loss anemia) D62 ESRD (end stage renal disease) on dialysis N18.6; Z99.2 Pancytopenia D61.818 Elevated troponin I level R77.8 Diabetes mellitus type 2 with complications E11.8 (HFpEF) heart failure with preserved ejection fraction I50.30 Atrial fibrillation, permanent I48.21 Hyperlipidemia E78.5 Neurogenic bladder N31.9
[2023-02-20] MEDS: ATORVASTATIN 10 MG TAB PO SCH (23:47)
[2023-02-20] MEDS: rOPINIRole HCL 1 MG TABLET PO SCH (23:50)
[2023-02-21] MEDS: LEVOTHYROXINE SODIUM 150 MCG TABLET PO SCH (05:32)
[2023-02-21 06:04] LABS: Basophils # (auto) 0.01 K/uL (0.00-0.20); Basophils % (auto) 0.4 %; Eosinophils # (auto) 0.02 K/uL (0.00-0.50); Eosinophils % (auto) 0.9 %; Hematocrit (blood only) 27.8 % (37.0-47.0); Hemoglobin 8.8 g/dl (12.0-16.0); Immature Granulocytes # (auto) 0.01 K/uL (0.01-0.20); Immature Granulocytes % (auto) 0.4 %; Lymphocytes % (auto) 17.9 %; Mean Corpuscular Hemoglobin 28.9 pg (25.0-34.0); Mean Corpuscular Hgb Conc 31.7 g/dL (32.0-36.0); Mean Corpuscular Volume 91.1 fL (80.0-100.0); Mean Platelet Volume 10.8 fL (9.4-12.4); Monocytes # (auto) 0.22 K/uL (0.11-0.59); Monocytes % (auto) 9.9 %; Neutrophils # (auto) 1.57 K/uL (1.40-6.50); Neutrophils % (auto) 70.5 %; Platelet Count 86 K/uL (130-400); RDW Coefficient of Variation 15.5 % (11.5-14.5); RDW Standard Deviation 51.3 fL (36.4-46.3); Red Blood Count 3.05 M/uL (4.20-5.40); White Blood Count 2.23 K/ul (4.8-10.8)
[2023-02-21 06:22] LABS: BUN Creatinine Ratio 9.2 (10-20); C Reactive Protein 1.49 mg/dl (0-0.5); Calcium 7.6 mg/dl (8.6-10.3); Creatinine Clr Calc Pharmacy 11.9 ml/min; Est GFR (African American) 17.9 ml/min; Est GFR (Non-African American) 15.4 ml/min; Potassium 3.4 mmol/L (3.5-5.1)
[2023-02-21 06:28] LABS: ANTI-Xa, UFH(UnfractionatedHep < 0.10 IU/ml (0.3-0.7)
--- NOTE | 2023-02-21 08:44 | Nephrology Progress Note ---
Date of Service February 21, 2023 Assessment & Plan (1) ESRD (end stage renal disease) on dialysis: Plan: * ESKD due to CRS (severe ) * Outpatient HD: [facility], 3.5hr, 2K 2.5Ca 1Mg F-180NR, EDW 65.5 kg * Volume status and electrolyte balance are acceptable. No acute indication for HD today. Will schedule next treatment for am * Monitor PRP (2) Influenza: Plan: * On Oseltamivir. Dose appropriate for ESKD-D (3) UTI (urinary tract infection): Plan: * On IV Cefepime (4) GAVE (gastric antral vascular ectasia): Plan: * s/p gastric banding 02/12/23 at [facility] [place] * Hgb trending down. Continue close monitoring and transfuse as needed * Hold heparin on HD due to h/o GAVE requiring multiple blood transfusions Admission and Anticipated Discharge Date Admission Date: February 19, 2023 Subjective Ms. Ray was evaluated in her hospital room this morning. She remains weak and c/o mild dysuria but denies fever, angina, dyspnea. Review of Systems Constitutional: no fever Eyes: no problem reported Ear, Nose, Mouth, Throat: no problem reported Respiratory: + cough; no sputum production Cardiovascular: no chest pain Gastrointestinal: no abdominal pain, no nausea, no vomiting and no diarrhea/loose stools Genitourinary: + dysuria Integumentary: no rash Physical Exam Constitutional: + frail appearing Eyes: PERRL, conjunctivae normal, anicteric sclerae ENMT: external ear and nose normal, oropharynx normal Neck: trachea midline, no thyromegaly Respiratory: no respiratory distress Cardiovascular: Rate/Rhythm: + irregularly irregular Gastrointestinal (Abdomen): normal bowel sounds, soft, nontender, no hepatosplenomegaly Skin: + turgor decreased Neurologic: Speech / Cognition: normal speech and normal cognition Psychiatric: Affect: + anxious affect Results & Data Vital Signs (Past 12 Hours) Vital Signs Temp Pulse Pulse Resp BP Pulse Ox O2 Del Method 02/21/23 08:11 82 02/21/23 07:49 36.4 C L 63 19 149/66 H 97 Room Air 02/21/23 03:00 36.5 C 78 20 142/68 H 96 Room Air 02/20/23 23:00 36.2 C L 88 18 127/70 92 Room Air 02/20/23 21:00 94 H 02/20/23 21:00 Room Air Laboratory Results Laboratory Results - last 24 hr 02/20/23 02/20/23 02/20/23 11:26 18:14 20:23 WBC RBC Hgb Hct MCV MCH MCHC RDW Std Deviation RDW Coeff of Irasema Plt Count MPV Immature Gran % (Auto) Neut % (Auto) Lymph % (Auto) [place] % (Auto) Eos % (Auto) Baso % (Auto) Neut # (Auto) Lymph # (Auto) [place] # (Auto) Eos # (Auto) Baso # (Auto) Immature Gran # (Auto) Heparin Anti-Xa, Unfract Sodium Potassium Chloride Carbon Dioxide Anion Gap BUN Creatinine Est Cr Clr Drug Dosing Est GFR ( Amer) Est GFR (Non-Af Amer) BUN/Creatinine Ratio Glucose POC Glucose 126 H 108 H 141 H Calcium C-Reactive Protein 02/21/23 02/21/23 05:35 07:26 WBC 2.23 L RBC 3.05 L Hgb 8.8 L Hct 27.8 L MCV 91.1 MCH 28.9 MCHC 31.7 L RDW Std Deviation 51.3 H RDW Coeff of Irasema 15.5 H Plt Count 86 L MPV 10.8 Immature Gran % (Auto) 0.4 Neut % (Auto) 70.5 Lymph % (Auto) 17.9 [place] % (Auto) 9.9 Eos % (Auto) 0.9 Baso % (Auto) 0.4 Neut # (Auto) 1.57 Lymph # (Auto) 0.40 L [place] # (Auto) 0.22 Eos # (Auto) 0.02 Baso # (Auto) 0.01 Immature Gran # (Auto) 0.01 Heparin Anti-Xa, Unfract < 0.10 L Sodium 137 Potassium 3.4 L Chloride 105 Carbon Dioxide 27 Anion Gap 5 BUN 25 H D Creatinine 2.72 H D Est Cr Clr Drug Dosing 11.9 Est GFR ( Amer) 17.9 Est GFR (Non-Af Amer) 15.4 BUN/Creatinine Ratio 9.2 L Glucose 98 POC Glucose 97 Calcium 7.6 L C-Reactive Protein 1.49 H Diagnostic Findings Laboratory Results - last 24 hr 02/20/23 02/20/23 02/20/23 11:26 18:14 20:23 WBC RBC Hgb Hct MCV MCH MCHC RDW Std Deviation RDW Coeff of Irasema Plt Count MPV Immature Gran % (Auto) Neut % (Auto) Lymph % (Auto) [place] % (Auto) Eos % (Auto) Baso % (Auto) Neut # (Auto) Lymph # (Auto) [place] # (Auto) Eos # (Auto) Baso # (Auto) Immature Gran # (Auto) Heparin Anti-Xa, Unfract Sodium Potassium Chloride Carbon Dioxide Anion Gap BUN Creatinine Est Cr Clr Drug Dosing Est GFR ( Amer) Est GFR (Non-Af Amer) BUN/Creatinine Ratio Glucose POC Glucose 126 H 108 H 141 H Calcium C-Reactive Protein 02/21/23 02/21/23 05:35 07:26 WBC 2.23 L RBC 3.05 L Hgb 8.8 L Hct 27.8 L MCV 91.1 MCH 28.9 MCHC 31.7 L RDW Std Deviation 51.3 H RDW Coeff of Irasema 15.5 H Plt Count 86 L MPV 10.8 Immature Gran % (Auto) 0.4 Neut % (Auto) 70.5 Lymph % (Auto) 17.9 [place] % (Auto) 9.9 Eos % (Auto) 0.9 Baso % (Auto) 0.4 Neut # (Auto) 1.57 Lymph # (Auto) 0.40 L [place] # (Auto) 0.22 Eos # (Auto) 0.02 Baso # (Auto) 0.01 Immature Gran # (Auto) 0.01 Heparin Anti-Xa, Unfract < 0.10 L Sodium 137 Potassium 3.4 L Chloride 105 Carbon Dioxide 27 Anion Gap 5 BUN 25 H D Creatinine 2.72 H D Est Cr Clr Drug Dosing 11.9 Est GFR ( Amer) 17.9 Est GFR (Non-Af Amer) 15.4 BUN/Creatinine Ratio 9.2 L Glucose 98 POC Glucose 97 Calcium 7.6 L C-Reactive Protein 1.49 H PG Care Time/CCT Total # of Minutes Spent Total Time Spent with Patient: Total time spent is greater than 50% in coordination of care (as documented) at patient's floor/unit and/or counseling patient: Coding Level of Care Code 88963 SUB INP/OBS CARE 3/50MIN Diagnoses ESRD (end stage renal disease) on dialysis N18.6; Z99.2 Influenza J11.1 UTI (urinary tract infection) N39.0 Urinary tract infection type: acute cystitis GAVE (gastric antral vascular ectasia) K31.819 (3) UTI (urinary tract infection) Urinary tract infection type: acute cystitis
[2023-02-21] MEDS: amLODIPine BESYLATE 5 MG TAB PO SCH (09:20)
[2023-02-21] MEDS: SEVELAMER HCL 800 MG TABLET PO SCH ×2 (09:20→16:50)
[2023-02-21] MEDS: guaiFENesin/DEXTROM SYRUP 200MG/20MG 10ML UDC PO PRN ×2 (09:21→20:09)
[2023-02-21] MEDS: CALCIUM CITRATE 950 MG TAB PO SCH (09:21)
[2023-02-21] MEDS: PANTOprazole 40 MG TAB PO SCH ×2 (09:21→20:09)
[2023-02-21] MEDS: SACCHAROMYCES BOULARDII 250 MG CAP PO SCH ×2 (09:21→20:11)
[2023-02-21] MEDS: INSULIN ASPART PER UNIT CHARGE SC SCH ×4 (09:21→22:35)
[2023-02-21] MEDS: DOXAZosin MESYLATE TAB 2 MG TAB PO SCH (09:21)
[2023-02-21] MEDS: BETHANECHOL CHL 25 MG TAB PO SCH ×2 (09:21→20:09)
[2023-02-21] MEDS: FUROSEMIDE 80 MG TAB PO SCH ×2 (09:21→16:51)
[2023-02-21] MEDS: TAMSULOSIN HCL 0.4 MG CAP PO SCH (09:21)
[2023-02-21] MEDS: CYANOCOBALAMIN (B-12) 500 MCG TABLET PO SCH (09:23)
[2023-02-21] MEDS: LANTUS PER UNIT CHARGE SQ SCH ×2 (09:25→22:37)
[2023-02-21] MEDS ORDERED: BENZONATATE 100 MG CAPSULE PO ONE (13:16)
[2023-02-21] MEDS ORDERED: CEFEPIME 1,000 MG in SYRINGE 0 ML IV SCH (16:00)
[2023-02-21] MEDS ORDERED: ACETAMINOPHEN 325 MG TAB PO PRN (16:49)
[2023-02-21] MEDS: ATORVASTATIN 10 MG TAB PO SCH (20:09)
[2023-02-21] MEDS: rOPINIRole HCL 1 MG TABLET PO SCH (20:12)
--- NOTE | 2023-02-21 21:52 | Electrocardiogram Report ---
Test Reason : Blood Pressure : / mmHG Vent. Rate : 085 BPM Atrial Rate : 086 BPM P-R Int : 360 ms QRS Dur : 134 ms QT Int : 458 ms P-R-T Axes : 000 -30 -14 degrees QTc Int : 545 ms Sinus rhythm with 1st degree A-V block Left axis deviation Right bundle branch block Abnormal ECG When compared with ECG of 15-FEB-2023 19:33, QT has lengthened Confirmed by Delvin Sullivan ([id number] on 02/21/2023 9:52:37 PM Referred By: REFERRED SELF Confirmed By:Delvin Sullivan
--- NOTE | 2023-02-21 22:10 | Hospitalist Progress Note ---
Date of Service February 21, 2023 Assessment & Plan (1) Acute UTI: Plan: Clinically, patient endorses intermittent burning with urination; she reports that she is still producing urine Urine culture positive for Pseudomonas on 02/15 Was previously on Keflex 500 mg p.o. twice daily from 02/15 - 02/19 Started on cefepime while in the ED Blood cultures ordered, p but negative.ending Continue cefepime 2000 mg q24h will monitor At discharge can transition to fluoroquinolone to complete treatment course for uncomplicated UTI by pseudomonas (2) Influenza A: Plan: + Nasal influenza A H 03/2008 on 02/15 Patient meets criteria for tamiflu first dose 02/20 CUrrently on room air. CXR revealed moderate left and small right pleural effusions Procalcitonin mildly elevated at 0.72 CRP elevated at 1.5 ESR WNL at 10 Supportive care with fluid Supplemental oxygen as needed to maintain SpO2 >94% (3) ABLA (acute blood loss anemia): Plan: Hgb 7.0 on arrival IMproved to 9.7 (likely over estimation) down to 8.8 after 2 units. will recheck in AM. If stable can discharge in AM Chronically low secondary to recurrent GI bleed due to GAVE, as well as anemia of chronic disease Extensive history of blood transfusions Iron panel WNL Vitamin B12 and folate WNL \ (4) ESRD (end stage renal disease) on dialysis: Plan: On HD //Sun Last dialysis on Saturday 02/17 BUN 44, creatinine 3.43, EGFR 11.6 at time of admission Mild hypokalemia at 3.3; recheck after dialysis Nephrology consulted for dialysis while inpatient (5) Pancytopenia: Plan: Leukopenic at 1.51 on arrival Anemic at Hgb 7.0 and Hct 22.6 on arrival Low platelets at 85 on arrival Continue to monitor with daily labs (6) Elevated troponin I level: Plan: Elevated troponin at 59.3 --> 58.7 Clinically, patient denies chest pain EKG on arrival showed sinus rhythm with first-degree AV block, old RBBB; QTc 545 (7) Diabetes mellitus type 2 with complications: Plan: Last A1c 4.6% on 04/06/22 Glucose at 101 on arrival Hold Tradjenta BSG ACHS Lantus 5u twice daily while inpatient Target BSG range [id number]/dL, CF 50, no carb ratio T2DM diet Adjust regimen as needed AM A1c (8) (HFpEF) heart failure with preserved ejection fraction: Plan: Echo on 02/15/2023 revealed LVEF >70%; moderate to severe aortic stenosis Continue Lasix Continue amlodipine (9) Atrial fibrillation, permanent: Plan: Chronic; not on rate control medications Not on anticoagulation due to GI bleeds EKG on arrival showed sinus rhythm with first-degree AV block; QTc 545 Continuous telemetry monitoring (10) Hyperlipidemia: Plan: Continue atorvastatin (11) Neurogenic bladder: Plan: Continue bethanechol chloride Plan Disposition: Admit to PCU telemetry DNR/DNI T2DM, dialysis renal diet VTE PPx: SCDs (hold chemical DVT PPx in the setting of recurrent GI bleeds and low Hgb) Tried calling daughter, went to phone mail twice. Plan to discharge on 02/22 if hemoglobin stable. will need FQ and tamiflu. Admission and Anticipated Discharge Date Admission Date: February 19, 2023 Subjective Patient reports having an intermittent cough. She also reports being concerned about her hemoglobin. SHe does report dark stools. Review of Systems Review of Systems: All systems reviewed & are unremarkable except as noted in HPI & below Physical Exam Constitutional: + frail appearing Eyes: PERRL, conjunctivae normal, anicteric sclerae ENMT: external ear and nose normal, oropharynx normal Neck: trachea midline, no thyromegaly Respiratory: no respiratory distress Cardiovascular: Rate/Rhythm: + irregularly irregular Gastrointestinal (Abdomen): normal bowel sounds, soft, nontender, no hepatosplenomegaly Skin: + turgor decreased Neurologic: Speech / Cognition: normal speech and normal cognition Psychiatric: Affect: + anxious affect Results & Data Results & Data Vital Signs (Past 12 Hours) Vital Signs Temp Pulse Pulse Resp BP Pulse Ox O2 Del Method 02/21/23 19:00 36.8 C 93 H 24 176/71 H 99 Room Air 02/21/23 16:07 64 02/21/23 15:23 36.4 C L 65 18 146/67 H 99 Room Air 02/21/23 11:08 36.3 C L 72 19 134/67 98 Room Air PG Care Time/CCT Total # of Minutes Spent Total Time Spent with Patient: Total time spent is greater than 50% in coordination of care (as documented) at patient's floor/unit and/or counseling patient: Coding Level of Care Code 88705 SUB INP/OBS CARE MIN Diagnoses Acute UTI N39.0 Influenza A J10.1 ABLA (acute blood loss anemia) D62 ESRD (end stage renal disease) on dialysis N18.6; Z99.2 Pancytopenia D61.818 Elevated troponin I level R77.8 Diabetes mellitus type 2 with complications E11.8 (HFpEF) heart failure with preserved ejection fraction I50.30 Atrial fibrillation, permanent I48.21 Hyperlipidemia E78.5 Neurogenic bladder N31.9
[2023-02-22] MEDS ORDERED: MELATONIN 3 MG TAB PO PRN (00:34)
[2023-02-22] MEDS: BENZONATATE 100 MG CAPSULE PO PRN ×2 (01:44→10:19)
[2023-02-22] MEDS: LEVOTHYROXINE SODIUM 150 MCG TABLET PO SCH (05:39)
[2023-02-22 06:29] LABS: Basophils # (auto) 0.02 K/uL (0.00-0.20); Basophils % (auto) 0.7 %; Eosinophils # (auto) 0.03 K/uL (0.00-0.50); Eosinophils % (auto) 1.1 %; Hematocrit (blood only) 27.5 % (37.0-47.0); Immature Granulocytes # (auto) 0.01 K/uL (0.01-0.20); Immature Granulocytes % (auto) 0.4 %; Lymphocytes # (auto) 0.49 K/uL (1.20-3.40); Lymphocytes % (auto) 18.4 %; Mean Corpuscular Hemoglobin 29.3 pg (25.0-34.0); Mean Corpuscular Hgb Conc 32.7 g/dL (32.0-36.0); Mean Corpuscular Volume 89.6 fL (80.0-100.0); Mean Platelet Volume 11.5 fL (9.4-12.4); Monocytes # (auto) 0.14 K/uL (0.11-0.59); Monocytes % (auto) 5.2 %; Neutrophils # (auto) 1.98 K/uL (1.40-6.50); Neutrophils % (auto) 74.2 %; Platelet Count 87 K/uL (130-400); RDW Coefficient of Variation 14.8 % (11.5-14.5); RDW Standard Deviation 47.6 fL (36.4-46.3); Red Blood Count 3.07 M/uL (4.20-5.40); White Blood Count 2.67 K/ul (4.8-10.8)
[2023-02-22 06:58] LABS: BUN Creatinine Ratio 10.6 (10-20); Calcium 7.7 mg/dl (8.6-10.3); Est GFR (African American) 12.7 ml/min; Potassium 3.3 mmol/L (3.5-5.1)
[2023-02-22] MEDS ORDERED: SODIUM CHLORIDE 0.9% 1,000 ML IV PRN (07:00)
[2023-02-22] MEDS ORDERED: EPOETIN ALFA 10,000 UNITS/ML VIAL IV ONE (07:00)
[2023-02-22] MEDS: INSULIN ASPART PER UNIT CHARGE SC SCH ×2 (08:02→14:41)
[2023-02-22] MEDS: SEVELAMER HCL 800 MG TABLET PO SCH (08:07)
--- NOTE | 2023-02-22 08:14 | Nephrology Progress Note ---
Date of Service February 22, 2023 Assessment & Plan (1) ESRD (end stage renal disease) on dialysis: Plan: * ESKD due to CRS (severe ) * Outpatient HD: [facility] TTS, 3.5hr, 2K 2.5Ca 1Mg F-180NR, EDW 65.5 kg * Will provide HD today. Orders have been entered into EMR and HD RN notified * Monitor PRP * If discharge is anticipated, please have patient resume outpatient dialysis at [facility] on Sunday (2) Influenza: Plan: * On Oseltamivir. Dose appropriate for ESKD-D (3) UTI (urinary tract infection): Plan: * On IV Cefepime (4) GAVE (gastric antral vascular ectasia): Plan: * s/[place] [facility] [place] Hgb trending down. Continue close monitoring and transfuse as needed * Hold heparin on HD due to h/o GAVE requiring multiple blood transfusions Admission and Anticipated Discharge Date Admission Date: February 19, 2023 Subjective Ms. Ray was evaluated in her hospital room this morning. She c/o cough but denies sputum production or dyspnea. Strength is subjectively improved. She hopes to return home soon Review of Systems Constitutional: no fever Eyes: no problem reported Ear, Nose, Mouth, Throat: no problem reported Respiratory: + cough; no sputum production Cardiovascular: no chest pain Gastrointestinal: no abdominal pain, no nausea, no vomiting and no diarrhea/loose stools Genitourinary: + dysuria Integumentary: no rash Physical Exam Constitutional: + frail appearing Eyes: PERRL, conjunctivae normal, anicteric sclerae ENMT: external ear and nose normal, oropharynx normal Neck: trachea midline, no thyromegaly Respiratory: no respiratory distress Cardiovascular: Rate/Rhythm: + irregularly irregular Gastrointestinal (Abdomen): normal bowel sounds, soft, nontender, no hepa tosplenomegaly Skin: + turgor decreased Neurologic: Speech / Cognition: normal speech and normal cognition Psychiatric: Affect: + anxious affect Results & Data Vital Signs (Past 12 Hours) Vital Signs Temp Pulse Resp BP Pulse Ox O2 Del Method 02/22/23 03:00 36.4 C L 90 18 145/75 H 100 Room Air 02/21/23 23:00 36.5 C 69 20 135/69 94 Room Air Laboratory Results Laboratory Results - last 24 hr 12/20/23 12/20/23 12/20/23 11:01 16:25 20:35 WBC RBC Hgb Hct MCV MCH MCHC RDW Std Deviation RDW Coeff of Irasema Plt Count MPV Immature Gran % (Auto) Neut % (Auto) Lymph % (Auto) [place] % (Auto) Eos % (Auto) Baso % (Auto) Neut # (Auto) Lymph # (Auto) [place] # (Auto) Eos # (Auto) Baso # (Auto) Immature Gran # (Auto) Sodium Potassium Chloride Carbon Dioxide Anion Gap BUN Creatinine Est Cr Clr Drug Dosing Est GFR ( Amer) Est GFR (Non-Af Amer) BUN/Creatinine Ratio Glucose POC Glucose 144 H 104 H 165 H Calcium 02/22/23 02/22/23 05:29 07:17 WBC 2.67 L RBC 3.07 L Hgb 9.0 L Hct 27.5 L MCV 89.6 MCH 29.3 MCHC 32.7 RDW Std Deviation 47.6 H RDW Coeff of Irasema 14.8 H Plt Count 87 L MPV 11.5 Immature Gran % (Auto) 0.4 Neut % (Auto) 74.2 Lymph % (Auto) 18.4 [place] % (Auto) 5.2 Eos % (Auto) 1.1 Baso % (Auto) 0.7 Neut # (Auto) 1.98 Lymph # (Auto) 0.49 L [place] # (Auto) 0.14 Eos # (Auto) 0.03 Baso # (Auto) 0.02 Immature Gran # (Auto) 0.01 Sodium 137 Potassium 3.3 L Chloride 103 Carbon Dioxide 25 Anion Gap 9 BUN 38 H Creatinine 3.60 H D Est Cr Clr Drug Dosing 9.0 Est GFR ( Amer) 12.7 Est GFR (Non-Af Amer) 11.0 BUN/Creatinine Ratio 10.6 Glucose 100 H POC Glucose 106 H Calcium 7.7 L PG Care Time/CCT Total # of Minutes Spent Total Time Spent with Patient: Total time spent is greater than 50% in coordination of care (as documented) at patient's floor/unit and/or counseling patient: Coding Level of Care Code 90701 SUB INP/OBS CARE 3/50MIN Diagnoses ESRD (end stage renal disease) on dialysis N18.6; Z99.2 Influenza J11.1 UTI (urinary tract infection) N39.0 Urinary tract infection type: acute cystitis GAVE (gastric antral vascular ectasia) K31.819 (3) UTI (urinary tract infection) Urinary tract infection type: acute cystitis
[2023-02-22] MEDS: LANTUS PER UNIT CHARGE SQ SCH (08:26)
[2023-02-22] MEDS: BETHANECHOL CHL 25 MG TAB PO SCH (08:27)
[2023-02-22] MEDS: SACCHAROMYCES BOULARDII 250 MG CAP PO SCH (08:28)
[2023-02-22] MEDS: CYANOCOBALAMIN (B-12) 500 MCG TABLET PO SCH (08:29)
[2023-02-22] MEDS: PANTOprazole 40 MG TAB PO SCH (08:30)
[2023-02-22] MEDS: TAMSULOSIN HCL 0.4 MG CAP PO SCH (08:30)
[2023-02-22] MEDS ORDERED: COUGH DROP (SUGAR FREE) LOZ 24 LOZ/1 BOX BUCCAL ONE (10:04)
--- NOTE | 2023-02-22 10:06 | Hospitalist Progress Note ---
Date of Service February 22, 2023 Assessment & Plan (1) Acute UTI: Plan: Clinically, patient endorses intermittent burning with urination; she reports that she is still producing urine Urine culture positive for Pseudomonas on 02/15 Was previously on Keflex 500 mg p.o. twice daily from 02/15 - 02/19 Started on cefepime while in the ED Blood cultures ordered, Continue cefepime 2000 mg q24h At discharge can transition to fluoroquinolone to complete treatment course for uncomplicated UTI by pseudomonas contributed to by neurogenic bladder Continue bethanechol chloride (2) Influenza A: Plan: + Nasal influenza A H 03/2008 on 02/15 Patient meets criteria for tamiflu first dose 02/20 CUrrently on room air. CXR revealed moderate left and small right pleural effusions Procalcitonin mildly elevated at 0.72 CRP elevated at 1.5 ESR WNL at 10 Supplemental oxygen as needed to maintain SpO2 >94% (3) ABLA (acute blood loss anemia): Plan: Hgb 7.0 on arrival IMproved to 9.7 (likely over estimation) down to 8.8 after 2 units. will recheck in AM. If stable can discharge in AM Chronically low secondary to recurrent GI bleed due to GAVE, as well as anemia of chronic disease Extensive history of blood transfusions Iron panel WNL Vitamin B12 and folate WNL (4) ESRD (end stage renal disease) on dialysis: Plan: On HD //Sun Last dialysis on Saturday 02/17 BUN 44, creatinine 3.43, EGFR 11.6 at time of admission Mild hypokalemia at 3.3; recheck after dialysis Nephrology consulted for dialysis while inpatient (5) Pancytopenia: Plan: Leukopenic at 1.51 on arrival Anemic at Hgb 7.0 and Hct 22.6 on arrival Low platelets at 85 on arrival likley secondary to viral infection (6) Elevated troponin I level: Plan: Elevated troponin at 59.3 --> 58.7 Clinically, patient denies chest pain EKG on arrival showed sinus rhythm with first-degree AV block, old RBBB; QTc 545 demand ischemia from illness (7) Diabetes mellitus type 2 with complications: Plan: Last A1c 4.6% on 04/06/22 Glucose at 101 on arrival Hold Tradjenta BSG ACHS Lantus 5u twice daily while inpatient Target BSG range 498111gr/dL, CF 50, no carb ratio T2DM diet Adjust regimen as needed AM A1c (8) (HFpEF) heart failure with preserved ejection fraction: Plan: Echo on 02/15/2023 revealed LVEF >70%; moderate to severe aortic stenosis Continue Lasix Continue amlodipine (9) Atrial fibrillation, permanent: Plan: Chronic; not on rate control medications Not on anticoagulation due to GI bleeds/GAVE EKG on arrival showed sinus rhythm with first-degree AV block; QTc 545 Plan DNR/DNI VTE PPx: SCDs (hold chemical DVT PPx in the setting of recurrent GI bleeds and low Hgb) Admission and Anticipated Discharge Date Admission Date: February 19, 2023 Results & Data Results & Data Vital Signs (Past 12 Hours) Vital Signs Temp Pulse Pulse Resp BP BP BP 02/22/23 09:30 100 H 145/76 H 02/22/23 09:05 97.5 F L 87 02/22/23 08:35 97.5 F L 87 18 124/65 02/22/23 03:00 97.5 F L 90 18 145/75 H 02/21/23 23:00 97.7 F 69 20 135/69 Pulse Ox O2 Del Method 02/22/23 09:30 02/22/23 09:05 02/22/23 08:35 99 Room Air 02/22/23 03:00 100 Room Air 02/21/23 23:00 94 Room Air PG Care Time/CCT Total # of Minutes Spent Total Time Spent with Patient: Total time spent is greater than 50% in coordination of care (as documented) at patient's floor/unit and/or counseling patient: Coding Diagnoses Acute UTI N39.0 Influenza A J10.1 ABLA (acute blood loss anemia) D62 ESRD (end stage renal disease) on dialysis N18.6; Z99.2 Pancytopenia D61.818 Elevated troponin I level R77.8 Diabetes mellitus type 2 with complications E11.8 (HFpEF) heart failure with preserved ejection fraction I50.30 Atrial fibrillation, permanent I48.21
[2023-02-22] MEDS: guaiFENesin/DEXTROM SYRUP 200MG/20MG 10ML UDC PO PRN (10:18)
[2023-02-22] MEDS: FUROSEMIDE 80 MG TAB PO SCH (11:00)
[2023-02-22] MEDS: OSELTAMIVIR PHOSPHATE SUSP 30 MG/5 ML UDP PO SCH (13:46)
[2023-02-22] MEDS: amLODIPine BESYLATE 5 MG TAB PO SCH (13:46)
[2023-02-22] MEDS: rOPINIRole HCL 0.25 MG TABLET PO SCH (13:47)
[2023-02-22] MEDS: CALCIUM CITRATE 950 MG TAB PO SCH (13:47)
[2023-02-22] MEDS: DOXAZosin MESYLATE TAB 2 MG TAB PO SCH (13:47)
--- NOTE | 2023-02-22 18:20 | Discharge Summary ---
Date of Service February 22, 2023 Admission HPI Per Admitting Provider Sully is an 82-year-old female with PMH of ESRD (on HD ), CAD, anemia of chronic disease, GERD, GAVE requiring frequent blood transfusions, anxiety, CVA, HLD, OA, RBBB, permanent atrial fibrillation (not on anticoagulation due to GI bleeds), HFpEF, T2DM, hypothyroidism, and . She presented for worsening flulike symptoms, generalized weakness, and dysuria x 6 days. Patient's daughter (Cher) is at the bedside and provides additional history. The patient was recently in the ED for a Pseudomonas UTI on 02/15 and was discharged on Keflex 500 mg p.o. BID x 7 days; however she was switched to cefdinir today 02/19. Of note, patient has GAVE and was recently at [place] on Monday 02/12 for EGD and stomach banding for GI bleeds. Her symptoms started the next day on Tuesday 02/13, and included dry cough and generalized weakness. Patient ambulates with a walker at baseline. She endorses intermittent burning with urination, and urinary retention, but reports that she has recently been producing urine and consistently taking her Lasix twice daily. She only took her Lasix this morning, no other morning medications taken. Only recent medication change was stopping octreotide due to diarrhea. Patient lives alone. She reports that she has not been eating and drinking well; mainly toast and peanut butter in the mornings. No at home oxygen use. Patient's vital stable at time of admission. ED course: Cefepime 2000 mg IV ROS: Patient endorses generalized weakness, dry cough, wheezing, MCKEON (worse than usual), diarrhea, melena and dark stool (which has been ongoing for several months), intermittent right leg cramping extending from R hip to R knee (started Sunday), burning with urination, and intermittent urinary retention. Patient denies fever, chills, nightsweats, MURILLO, dizziness, CP, SOB at rest, pleuritic CP, abdominal pain, N/V, or back pain. She denies PMHx of DVT/PE PMH of [place], CHF, a fib, CVA, and skin cancer Principal Diagnosis metabolic encephalopathy from uti and influenza poa Discharge Exam Patient was seen in dialysis she is lying flat she is occasional nonproductive cough she was not wheezing she had no respiratory distress Discharge Data Allergies Allergy/AdvReac Type Severity Reaction Status Date / Time sulfamethoxazole AdvReac Unknown REMOTE Verified 02/19/23 11:54 [From Bactrim] HX/PT NOT SURE REACTION trimethoprim [From Bactrim] AdvReac Unknown REMOTE Verified 02/19/23 11:54 HX/PT NOT SURE REACTION Consultations 02/19/23 12:13 ED Decision to Admit Stat 02/20/23 10:35 Consult Nephrology Routine Ordered Studies 02/19/23 14:03 US venous doppler LE LT Urgent Hospital Course (1) Acute UTI: Clinically, patient endorses intermittent burning with urination; she reports that she is still producing urine Urine culture positive for Pseudomonas on 02/15 Was previously on Keflex 500 mg p.o. twice daily from 02/15 - 02/19 Started on cefepime while in the ED Blood cultures negative to date Continue cefepime 2000 mg in the hospital discharged on renal dosed levofloxacin to 48 for uncomplicated UTI by pseudomonas contributed to by neurogenic bladder Continue bethanechol chloride (2) Influenza A: + Nasal influenza A H 03/2008 on 02/15 Patient meets criteria for tamiflu first dose 02/20 will be discharged on renal dose Tamiflu 30 mg every other day Requiring supplemental oxygen CXR revealed moderate left and small right pleural effusions (3) ABLA (acute blood loss anemia): Hgb 7.0 on arrival transfused 2 units packed red blood cells Chronically low secondary to recurrent GI bleed due to GAVE, as well as anemia of chronic disease Extensive history of blood transfusions Iron panel WNL Vitamin B12 and folate WNL (4) ESRD (end stage renal disease) on dialysis: On HD / Patient was dialyzed on day of discharge February 22 (5) Pancytopenia: Leukopenic at 1.51 on arrival Anemic at Hgb 7.0 and Hct 22.6 on arrival Low platelets at 85 on arrival likley secondary to viral infection (6) Elevated troponin I level: Elevated troponin at 59.3 --> 58.7 Clinically, patient denies chest pain EKG on arrival showed sinus rhythm with first-degree AV block, old RBBB; QTc 545 demand ischemia from illness (7) Diabetes mellitus type 2 with complications: Last A1c 4.6% on 04/06/22 Resume Tradjenta And A1c is very low we will refer to outpatient doctor to consider discontinuation of diabetic medication (8) (HFpEF) heart failure with preserved ejection fraction: Echo on 02/15/2023 revealed LVEF >70%; moderate to severe aortic stenosis Continue Lasix Continue amlodipine (9) Atrial fibrillation, permanent: Chronic; not on rate control medications Not on anticoagulation due to GI bleeds/GAVE EKG on arrival showed sinus rhythm with first-degree AV block; QTc 545 Plan DNR/DNI Total Time Total Time Spent Total Time Spent (In Minutes): It required greater than 30 minutes to prepare this patient for discharge. Discharge Plan Discharge Items Patient Disposition: Home - Self-Care Reason For Visit: FLU LIKE SYMPTOMS, UTI Discharge Diagnosis: metabolic encephalopathy from uti poa influenza + esrd on dialysis Activity: Resume your previous activity Non-emergency contact: Primary Care Provider and Electrical Engineering Teacher Call non-emergency contact if: your symptoms worsen Follow-up/Referrals: Earnest Burroughs MD [Physician] - Agatha Alfaro DO [Primary Care Provider] - 03/02/23 8:40 am (d/c follow up with Maricruz Green 03/02 @ 8:40am) Diet: Dialysis Renal Addtl Attending Provider Instructions: complete antibiotics and tamiflu follow up with your typical outpt dialysis Pending Studies at Discharge: No Stand-Alone Forms: My [facility] [email or web address], Smoking Cessation Medications and DC Order Prescriptions: New oseltamivir [Tamiflu] 30 mg capsule 30 mg PO Q OTHER DAY Qty: 2 0RF levofloxacin 750 mg tablet 750 mg PO Q48H Qty: 2 0RF Rx Instructions: take starting 02/23/23 Continued (DME) Blood Glucose Test Strip See Rx Instructions .ROUTE .MEDSUPPLY Qty: 100 5RF Rx Instructions: Accucheck perform strips. 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 bethanechol chloride 50 mg tablet 50 mg PO BID Qty: 180 3RF Saccharomyces boulardii [Florastor] 250 mg capsule 250 mg PO BID Qty: 180 3RF (DME) Fitted Briefs X-Large Misc See Rx Instructions .Route Qty: 150 5RF Rx Instructions: using 4-5 per day R19.7 atorvastatin [Lipitor] 10 mg tablet 10 mg PO HS Qty: 90 1RF furosemide 80 mg tablet 80 mg PO BID Qty: 180 1RF Tradjenta 5 mg tablet 5 mg PO QAM Qty: 90 2RF methocarbamol 500 mg tablet 500 mg PO TID PRN (Reason: muscle spasm) Qty: 90 1RF levothyroxine 150 mcg capsule 150 mcg PO QAM Qty: 90 1RF tramadol 50 mg tablet 50 mg PO BID PRN (Reason: Pain) Qty: 60 0RF famotidine 20 mg tablet 20 mg PO BID 90 Days Qty: 180 0RF amlodipine 5 mg tablet 5 mg PO QAM Qty: 30 11RF Rx Instructions: hold on dialysis cholecalciferol (vitamin D3) [Vitamin D3] 1,000 unit Capsule 2,000 unit PO QAM calcium citrate 200 mg (950 mg) Tablet 400 mg PO QAM loperamide 2 mg Capsule 2 mg PO UD PRN (Reason: Diarrhea) Rx Instructions: administer after each loose stool until symptoms controlled; do not exceed 8 mg per 24 hrs estradiol 0.01 % (0.1 mg/gram) cream 1 applic VAGINAL 3XWK PRN (Reason: ONLY WHEN BURNING) vitamin E 268 mg (400 unit) Capsule 268 mg PO QAM pantoprazole [Protonix] 40 mg tablet,delayed release (DR/EC) 40 mg PO BID Qty: 60 5RF nystatin 100,000 unit/gram powder 1 applic TOPICAL BID PRN (Reason: IRRITATION) cyanocobalamin (vitamin B-12) [Vitamin B-12] 1,000 mcg tablet 1,000 mcg PO QAM tamsulosin [Flomax] 0.4 mg capsule 0.4 mg PO QAM sevelamer carbonate 800 mg Tablet 1,600 mg PO BIDWMEAL Rx Instructions: must administer with a meal/food doxazosin 2 mg tablet 2 mg PO DAILY cephalexin 500 mg capsule 500 mg PO DAILY Rx Instructions: Start Date 02/18/23 - End Date 02/23/23 ropinirole 0.5 mg tablet 0 mg PO BID Patient Comments: 2 AFTERNOON AND 3 AT NIGHT Rx Instructions: Take 0.5MG PO in afternoon, take 1.5MG at bedtime PO; triamcinolone acetonide 0.05 % ointment 1 applic topical BID PRN (Reason: FLARE) Discharge Orders: Discharge Order (Routine); Ordered 02/22/23 Ordered By: Chris James/Other Patient Handouts: Managing Type 2 Diabetes Admission Data Admit Date/Time: 02/19/23 13:24 Attending Provider: Chris West Admit Provider: Davian Stephens Primary Care Provider: Agatha Alfaro Other Providers: Davian Stephens; Earnest Burroughs Other Interventions: Discharge Summary Assessment (RN) Last Done: 02/22/23 15:54 Coding Level of Care Code 35650 INP/OBS DISCH >30 MIN Diagnoses Acute UTI N39.0 Influenza A J10.1 ABLA (acute blood loss anemia) D62 ESRD (end stage renal disease) on dialysis N18.6; Z99.2 Pancytopenia D61.818 Elevated troponin I level R77.8 Diabetes mellitus type 2 with complications E11.8 (HFpEF) heart failure with preserved ejection fraction I50.30 Atrial fibrillation, permanent I48.21
--- NOTE | 2023-02-24 05:58 | Electrocardiogram Report ---
Test Reason : Blood Pressure : / mmHG Vent. Rate : 091 BPM Atrial Rate : 091 BPM P-R Int : 292 ms QRS Dur : 128 ms QT Int : 438 ms P-R-T Axes : 105 -40 -14 degrees QTc Int : 538 ms Sinus rhythm with 1st degree A-V block Left axis deviation Right bundle branch block Abnormal ECG When compared with ECG of 19-FEB-2023 11:22, No significant change was found Confirmed by Delvin Sullivan ([id number]) on 02/24/2023 5:58:02 AM Referred By: REFERRED SELF Confirmed By:Delvin Sullivan
== END 2023-02-22 17:05 | disposition home or self-care (01) | DRG 193 ==
LOC: ED 10:22 → EDINP 13:24 → SUATTDRO 13:24 → 2S 13:45

== ENCOUNTER 2023-03-26 18:51 | Observation (INO) ==
[2023-03-26 19:55] LABS: Basophils # (auto) 0.03 K/uL (0.00-0.20); Basophils % (auto) 0.7 %; Eosinophils # (auto) 0.09 K/uL (0.00-0.50); Eosinophils % (auto) 2.1 %; Hematocrit (blood only) 31.2 % (37.0-47.0); Hemoglobin 9.8 g/dl (12.0-16.0); Immature Granulocytes # (auto) 0.01 K/uL (0.01-0.20); Immature Granulocytes % (auto) 0.2 %; Lymphocytes # (auto) 0.43 K/uL (1.20-3.40); Lymphocytes % (auto) 9.9 %; Mean Corpuscular Hemoglobin 30.6 pg (25.0-34.0); Mean Corpuscular Hgb Conc 31.4 g/dL (32.0-36.0); Mean Corpuscular Volume 97.5 fL (80.0-100.0); Mean Platelet Volume 10.4 fL (9.4-12.4); Monocytes # (auto) 0.33 K/uL (0.11-0.59); Monocytes % (auto) 7.6 %; Neutrophils # (auto) 3.44 K/uL (1.40-6.50); Neutrophils % (auto) 79.5 %; Platelet Count 136 K/uL (130-400); RDW Coefficient of Variation 18.7 % (11.5-14.5); RDW Standard Deviation 66.8 fL (36.4-46.3); White Blood Count 4.33 K/ul (4.8-10.8)
[2023-03-26 20:11] LABS: Alanine Aminotransferase 20 U/L (7-52); Albumin Globulin Ratio 1.2 (0.9-2); Albumin Level 3.4 gm/dl (3.4-5.0); Alkaline Phosphatase 258 U/L (34-104); Anion Gap 10 (3-11); Aspartate Aminotransferase 34 U/L (13-39); BUN Creatinine Ratio 20.4 (10-20); Bilirubin,Total 0.6 mg/dl (0.2-1.0); Blood Urea Nitrogen 68 mg/dl (6-23); Calcium 8.4 mg/dl (8.6-10.3); Carbon Dioxide 27 mmol/L (21-32); Chloride 101 mmol/L (98-107); Est GFR (African American) 13.9 ml/min; Globulin 2.8 gm/dl (2.5-4.0); Glucose 153 mg/dl (70-99(Fasting)); Potassium 4.6 mmol/L (3.5-5.1); Sodium 138 mmol/L (136-145); Total Protein 6.2 gm/dl (6.0-8.3)
[2023-03-26 20:18] LABS: Troponin I High Sensitivity 47.8 pg/ml (0-14)
[2023-03-26 20:33] LABS: Partial Thromboplastin Ratio 1.1; Partial Thromboplastin Time 30 Seconds (21-31)
--- NOTE | 2023-03-26 20:56 | Emergency Department Note ---
Impression & Plan Shortness of breath, Non-ST elevation DC (NSTEMI), Elevated brain natriuretic peptide (BNP) level, End-stage renal disease (ESRD) ED Provider Note HISTORY OF PRESENT ILLNESS: Patient is an 83-year-old female presenting with shortness of breath. Patient presents with her daughter who helps provide history. Reports that over the last week the patient has had progressively worsening shortness of breath, most notably with exertion. Daughter reports that the patient had 1 unit of packed red blood cells transfused earlier today, given that she has a history of GAVE disease and requires recurrent transfusions, with her most recent one being 3 weeks ago. Her stool is chronically dark because she gets iron supplementations at dialysis. She is a Sunday//Sunday dialysis patient and received her dialysis on Sunday. She states the last 24 hours her breathing has gotten significantly worse. She is only able to take a few steps with her walker before she becomes very winded and has to sit down. Denies any chest pain. No recent fever or cough. Daughter reports that she went and visited the patient today on her way home from work and the patient was conversationally dyspneic and short of breath with just sitting in her recliner. Patient denies any abdominal pain, nausea or vomiting. ROS: as above PHYSICAL EXAM: Constitutional: Patient appears in no acute distress. HENT: Head: Normocephalic and atraumatic. Eyes: EOMI, PERRL Mouth/Throat: Mucous membranes moist. Neck: Trachea midline. Neck supple. Cardiovascular: RRR, No murmurs, rubs or gallops. Intact distal pulses. Pulmonary/Chest: No respiratory distress. Breath sounds clear and equal bilaterally. Patient is conversationally dyspneic. Dialysis port in right chest. Abdominal: Abdomen soft, no tenderness, rebound or guarding. Musculoskeletal: No edema, tenderness or deformity noted. Skin: Warm and dry. No rash, erythema, pallor or cyanosis Psychiatric: Appropriate mood and affect for situation. Neurological: Alert and keenly responsive. CN II-XII grossly intact, moving all extremities equally and fully. MDM: - Vitals signs showed hypertension - History obtained via patient and patient's daughter. Patient presents with shortness of breath. Patient reportedly has had progressively worsening shortness of breath most notably with exertion over the last week. Reportedly symptoms have been significantly worse in the last 24 hours. She is an ESRD patient and received dialysis 3 days ago. She ambulates with a walker at home and is only able to take a few steps before becoming winded and having to sit down. Denies any chest pain, fever or cough. Patient did receive a blood transfusion today in the outpatient setting. - Chronic conditions affecting care: Afib; ESRD (on Sun//Sat dialysis); CVA; HTN; DM-2; anemia of chronic disease; RBBB; CAD; HLD - Differential diagnoses include, but are not limited to: CHF exacerbation; ACS; pneumonia; viral syndrome; fluid overload - Order placed for continuous cardiac monitoring. At this time, monitor showed rate of 83 bpm with normal sinus rhythm, per my interpretation. - External medical records reviewed. Discharge summary dated 02/22/2023 was reviewed. Patient was admitted at that time for flulike symptoms, generalized weakness and dysuria. She was noted to be influenza positive and had a UTI. - EKG interpreted by myself showed normal sinus rhythm. Rate 91 bpm. QTc 406. Noted to have a right bundle branch block. No acute ischemic changes. - Laboratory workup interpreted by myself showed slight leukopenia (WBC 4.33); chronic anemia (Hgb 9.8); ESRD (Cr 3.33); elevated troponin (47.5); elevated BNP (1055) - Repeat troponin elevated at 51.7 - CXR shows chronic left pleural effusion, per my interpretation - COVID/flu/RSV negative - Patient ambulated in ER and maintained her saturations at 92-93, but became significantly short of breath with a few steps and started to get weak and had to sit down. - Patient's elevated troponin is close to her baseline in the setting of her ESRD. However, she does have persistent symptoms and does seem conversationally dyspneic and has increased work of breathing. Her symptoms may be secondary to fluid overload in the setting that she is supposed to get dialysis tomorrow and her last session was 3 days ago. - Discussion was had with wound care center consultant about patient's case and need for admission - Hospitalist consulted for admission - [facility] for further evaluation and management. ASSESSMENT AND PLAN: Diagnosis: shortness of breath; NSTEMI; ESRD; elevated BNP Plan: Admit Past Med/Surg History Medical History Palliative care by specialist Atrial fibrillation, permanent Clostridioides difficile carrier Pancytopenia Atrial fibrillation and flutter Hemorrhoids History of recent hospitalization GAVE (gastric antral vascular ectasia) ESRD on hemodialysis Poor historian History of GI bleed Hx of atrial fibrillation, no current medication History of renal dialysis History of CVA (cerebrovascular accident) (2019) Resistant hypertension Diabetes mellitus, type 2 Hearing deficit Urinary urgency Anemia of chronic disease Chronic diastolic heart failure Chronic hyponatremia Anxiety RBBB Aortic stenosis CAD (coronary artery disease) Secondary hyperparathyroidism of renal origin Diabetic retinopathy Essential tremor Fatty liver First degree AV block GERD without esophagitis Hiatal hernia Hyperlipidemia Hypertension Hypothyroidism Osteoarthritis Restless legs Venous insufficiency 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 Surgical History History of esophagogastroduodenoscopy (EGD) S/P pericardiocentesis Hx of cardiac catheterization History of tooth extraction History of colonoscopy H/O varicose vein ligation S/P trigger finger release S/P knee replacement History of bladder suspension procedure S/P carpal tunnel release History of back surgery (04/2010) S/P hysterectomy Family History Father Alcohol abuse Heart disease Myocardial infarction Hypertension Sister Pancreatic cancer Diabetes Breast cancer Brother Diabetes Alcohol abuse Stroke Other Cancer No family history of adverse response to anesthesia Denies family history of Ovarian cancer Prostate cancer Colorectal cancer Social History Smoking Status: Never smoker Second Hand Exposure: No; Do You Dip or Chew Tobacco: No; Hx Alcohol Use: No Hx Substance Use: No Preferred Language: Nepali Communication Ability: Effective Visual Impairment: No Limitations Hearing Ability: Normal Art Editor Required: No Beliefs That Will Affect Care: None marital status: Single Current Living Situation: Alone current occupational status: retired How many Children do You have: 2 Feels Safe at Home: Yes Childhood Exposure to Second-Hand Smoke: No Diet: regular Diet Comment: regular caffeine: Yes (Coffee x 2 cups per day.) during the past year weight has: remained stable Dental Care, Regularly: No Physical Activity Frequency: Does not Exercise Seatbelt Use: always Sunscreen Use: Yes Assistive Devices: Walker Allergies Allergies Allergy/AdvReac Type Severity Reaction Status Date / Time sulfamethoxazole AdvReac Unknown REMOTE Verified 03/26/23 20:39 [From Bactrim] HX/PT NOT SURE REACTION trimethoprim [From Bactrim] AdvReac Unknown REMOTE Verified 03/26/23 20:39 HX/PT NOT SURE REACTION Home Meds Home Medications Medication Instructions Recorded Confirmed cholecalciferol (vitamin D3) 25 2,000 unit PO QAM 05/29/18 03/26/23 mcg (1,000 unit) capsule (Vitamin D3) cyanocobalamin (vitamin B-12) 1,000 mcg PO QAM 11/12/20 03/26/23 1,000 mcg tablet (Vitamin B-12) sevelamer carbonate 800 mg tablet 1,600 mg PO BIDWMEAL 03/20/22 03/26/23 calcium citrate 200 mg (950 mg) 400 mg PO QAM 05/29/22 03/26/23 tablet loperamide 2 mg capsule 2 mg PO UD PRN Diarrhea 05/29/22 03/26/23 estradiol 0.01% (0.1 mg/gram) 1 applic vaginal 3XWK PRN ONLY 05/30/22 03/26/23 vaginal cream WHEN BURNING vitamin E 268 mg (400 unit) capsule 268 mg PO QAM 05/30/22 03/26/23 nystatin 100,000 unit/gram topical 1 applic topical BID PRN IRRITATION 07/10/22 03/26/23 powder triamcinolone acetonide 0.05 % 1 applic topical BID PRN FLARE 02/19/23 03/26/23 topical ointment Previous Rx's Medication Instructions Recorded blood sugar diagnostic (Blood #100 ea 10/12/20 Glucose Test strips) bethanechol chloride 50 mg tablet 50 mg PO BID #180 tabs 04/19/21 Saccharomyces boulardii 250 mg 250 mg PO BID #180 caps 12/05/21 capsule (Florastor) diaper,brief,adult,disposable #150 ea 12/07/21 (Fitted Briefs X-Large) pantoprazole 40 mg tablet,delayed 40 mg PO BID #60 tabs 06/02/22 release (Protonix) furosemide 80 mg tablet 80 mg PO BID #180 tabs 11/14/22 methocarbamol 500 mg tablet 500 mg PO TID PRN muscle spasm #90 01/14/23 tabs levothyroxine 150 mcg capsule 150 mcg PO QAM #90 caps 01/23/23 famotidine 20 mg tablet 20 mg PO BID 3 months #180 tabs 02/05/23 tramadol 50 mg tablet 50 mg PO BID PRN Pain #60 tabs 03/06/23 atorvastatin 10 mg tablet (Lipitor) 10 mg PO HS #90 tabs 03/09/23 dimethicone 1.3 % topical cream 1 applic topical .COMPLEX PRN skin 03/14/23 (Cavilon Durable Barrier) irritation #92 grams ropinirole 0.5 mg tablet See Rx Instructions .Route 03/26/23 .COMPLEX #120 tabs Results & Data (ED) Vital Signs Vital Signs - 24 hr 03/26/23 19:21 03/26/23 19:26 03/26/23 20:30 Temperature 36.8 C Temperature Source Temporal Artery Scan Pulse Rate 87 Pulse Rate [Bilateral] Pulse Rhythm [Bilateral] Pulse Strength [Bilateral] Respiratory Rate 18 Respiratory Effort / Characteristics Non-Labored Spontaneous Respiratory Depth Normal Respiratory Pattern Regular Blood Pressure 154/68 H Blood Pressure Mean 96 Blood Pressure Position Sitting Pulse Oximetry 96 92 Oxygen Delivery Method Room Air Room Air Room Air Sepsis Recent Fever Within 48 Hours No Sepsis New/Unexplained Change in Mental Status N/A Sepsis Action Taken by Nursing No Action Required 03/26/23 20:30 03/26/23 22:00 Temperature Temperature Source Pulse Rate 82 Pulse Rate [Bilateral] 83 Pulse Rhythm [Bilateral] Regular Pulse Strength [Bilateral] Normal Respiratory Rate 20 Respiratory Effort / Characteristics Non-Labored Respiratory Depth Normal Respiratory Pattern Regular Blood Pressure Blood Pressure Mean Blood Pressure Position Pulse Oximetry 94 Oxygen Delivery Method Sepsis Recent Fever Within 48 Hours Sepsis New/Unexplained Change in Mental Status Sepsis Action Taken by Nursing Laboratory Data 03/26/23 19:37 03/26/23 19:37 Lab Results 03/26/23 03/26/23 03/26/23 Range/Units 19:37 21:07 22:21 WBC 4.33 L (4.8-10.8) K/ul RBC 3.20 L (4.20-5.40) M/uL Hgb 9.8 L (12.0-16.0) g/dl Hct 31.2 L (37.0-47.0) % MCV 97.5 (80.0-100.0) fL MCH 30.6 (25.0-34.0) pg MCHC 31.4 L (32.0-36.0) g/dL RDW Std Deviation 66.8 H (36.4-46.3) fL RDW Coeff of Irasema 18.7 H (11.5-14.5) % Plt Count 136 (130-400) K/uL MPV 10.4 (9.4-12.4) fL Immature Gran % (Auto) 0.2 % Neut % (Auto) 79.5 % Lymph % (Auto) 9.9 % [place] % (Auto) 7.6 % Eos % (Auto) 2.1 % Baso % (Auto) 0.7 % Neut # (Auto) 3.44 (1.40-6.50) K/uL Lymph # (Auto) 0.43 L (1.20-3.40) K/uL [place] # (Auto) 0.33 (0.11-0.59) K/uL Eos # (Auto) 0.09 (0.00-0.50) K/uL Baso # (Auto) 0.03 (0.00-0.20) K/uL Immature Gran # (Auto) 0.01 (0.01-0.20) K/uL PT 11.0 (9.0-12.0) Seconds INR 1.0 (0.9-1.1) APTT 30 (21-31) Seconds PTT Ratio 1.1 Sodium 138 (136-145) mmol/L Potassium 4.6 (3.5-5.1) mmol/L Chloride 101 (98-107) mmol/L Carbon Dioxide 27 (21-32) mmol/L Anion Gap 10 (3-11) BUN 68 H (6-23) mg/dl Creatinine 3.33 H (0.6-1.2) mg/dl Est Cr Clr Drug Dosing Not Reportable Est GFR ( Amer) 13.9 ml/min Est GFR (Non-Af Amer) 12.0 ml/min BUN/Creatinine Ratio 20.4 H (10-20) Glucose 153 H (70-99(Fasting)) mg/dl Calcium 8.4 L (8.6-10.3) mg/dl Total Bilirubin 0.6 (0.2-1.0) mg/dl AST 34 (13-39) U/L ALT 20 (7-52) U/L Alkaline Phosphatase 258 H (34-104) U/L Troponin I High Sens 47.8 H 51.7 H* (0-14) pg/ml B-Natriuretic Peptide 1055 H (0-100) pg/ml Total Protein 6.2 (6.0-8.3) gm/dl Albumin 3.4 (3.4-5.0) gm/dl Globulin 2.8 (2.5-4.0) gm/dl Albumin/Globulin Ratio 1.2 (0.9-2) SARS-CoV-2 (PCR) NEGATIVE (Negative) Influenza Type A (PCR) Negative (Neg) Influenza Type B (PCR) Negative (Neg) RSV (RT-PCR) Negative (Neg) Discharge Plan Visit Data Chief Complaint: Shortness of Breath/Dyspnea Stated Complaint: TRANSFUSION EARLIER, SOB ED Provider: Meagan Marie Discharge Problem: Shortness of breath, Non-ST elevation DC (NSTEMI), Elevated brain natriuretic peptide (BNP) level, End-stage renal disease (ESRD) Forms Stand Alone Forms: [facility] Prescriptions Prescriptions: No Action (DME) Blood Glucose Test Strip See Rx Instructions .ROUTE .MEDSUPPLY Qty: 100 5RF Rx Instructions: Accucheck perform strips. 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 bethanechol chloride 50 mg tablet 50 mg PO BID Qty: 180 3RF Saccharomyces boulardii [Florastor] 250 mg capsule 250 mg PO BID Qty: 180 3RF (DME) Fitted Briefs X-Large Misc See Rx Instructions .Route Qty: 150 5RF Rx Instructions: using 4-5 per day R19.7 furosemide 80 mg tablet 80 mg PO BID Qty: 180 1RF methocarbamol 500 mg tablet 500 mg PO TID PRN (Reason: muscle spasm) Qty: 90 1RF levothyroxine 150 mcg capsule 150 mcg PO QAM Qty: 90 1RF famotidine 20 mg tablet 20 mg PO BID 90 Days Qty: 180 0RF tramadol 50 mg tablet 50 mg PO BID PRN (Reason: Pain) Qty: 60 0RF atorvastatin [Lipitor] 10 mg tablet 10 mg PO HS Qty: 90 1RF ropinirole 0.5 mg tablet See Rx Instructions .ROUTE .COMPLEX Qty: 120 5RF Rx Instructions: Take 1 tab PO AM, 3 tabs PO QHS; Cavilon Durable Barrier 1.3 % cream 1 applic topical .COMPLEX PRN (Reason: skin irritation) Qty: 92 2RF Rx Instructions: as needed for skin protection cholecalciferol (vitamin D3) [Vitamin D3] 1,000 unit Capsule 2,000 unit PO QAM calcium citrate 200 mg (950 mg) Tablet 400 mg PO QAM loperamide 2 mg Capsule 2 mg PO UD PRN (Reason: Diarrhea) Rx Instructions: administer after each loose stool until symptoms controlled; do not exceed 8 mg per 24 hrs estradiol 0.01 % (0.1 mg/gram) cream 1 applic VAGINAL 3XWK PRN (Reason: ONLY WHEN BURNING) vitamin E 268 mg (400 unit) Capsule 268 mg PO QAM pantoprazole [Protonix] 40 mg tablet,delayed release (DR/EC) 40 mg PO BID Qty: 60 5RF nystatin 100,000 unit/gram powder 1 applic TOPICAL BID PRN (Reason: IRRITATION) cyanocobalamin (vitamin B-12) [Vitamin B-12] 1,000 mcg tablet 1,000 mcg PO QAM sevelamer carbonate 800 mg Tablet 1,600 mg PO BIDWMEAL Rx Instructions: must administer with a meal/food triamcinolone acetonide 0.05 % ointment 1 applic topical BID PRN (Reason: FLARE) Referrals Referrals: Agatha Alfaro DO [Primary Care Provider] -
[2023-03-26 21:55] LABS: Influenza A virus by PCR Negative (Neg); Influenza B virus by PCR Negative (Neg); RSV by PCR Negative (Neg); SARS CoV2 RNA(COVID-19) Ceph NEGATIVE (Negative)
--- NOTE | 2023-03-26 23:59 | History & Physical Report ---
Date of Service March 26, 2023 Assessment & Plan (1) Shortness of breath: Plan: Pt is a 83 yo female with PMH of afib, CVA (2018), HTN, DM, ESRD on dialysis (), aortic stenosis, HFpEF, and HLD presenting to the hospital d/t SOB. Acute on chronic HFpEF - CXR showed pulmonary edema and effusion (L>R); left effusion present on previous CXR 02/19/2023 but vascular congestion is worsened - BNP elevated to 1055; decreased breath sounds in bilateral lung bases on exam - will order lasix 80mg IV x1 and monitor diuresis - resume home lasix 80mg BID tomorrow AM - last echo 02/2023; no need to repeat now ESRD - pt follows with Dr. Will outpatient - current dialysis schedule - Cr 3.33 upon admission - continue home sevelamer - plan for dialysis tomorrow as scheduled; nephro consulted Anemia of chronic disease - s/p 1 unit pRBCs today as outpatient - Hgb upon admission 9.8 - continue to monitor Elevated trop - 47.8 upon arrival, repeat 51.7; suspect demand ischemia - trend to peak Aortic stenosis - last echo 02/2023 showed moderate to severe HTN - per pt, she has been taken off many of her BP medications because her BPs were low - continue lasix as above Hx of CVA - continue atorvastatin 10 mg DM - last A1c 02/2023 4.7% - no longer on any medications at home - no need for SSI/glargine at this point Diet: renal Code: DNR/DNI VTE ppx: will start heparin after dialysis tomorrow Dispo: med/tele (2) End-stage renal disease (ESRD): (3) Aortic stenosis: (4) Diabetes mellitus type 2 with complications: (5) Hyperlipidemia: (6) CAD (coronary artery disease): (7) Chronic diastolic heart failure: (8) History of CVA (cerebrovascular accident): (9) Anemia of chronic disease: (10) Elevated troponin: History of Present Illness Chief Complaint: SOB Primary Care Provider: Agatha Alfaro DO Pt is a 83 yo female with PMH of afib, CVA (2018), HTN, DM, ESRD on dialysis (), aortic stenosis, HFpEF, and HLD presenting to the hospital d/t SOB. Pt explains that she has been SOB for the last few weeks. It has been getting progressively worse. She is unsure if it is better or worse when sitting/lying. She notes that she got 1 unit of blood today d/t her anemia. She has received blood transfusions in the past. She has not missed any dialysis appointments and has been taking her medications as prescribed. She did not want to come into the hospital but notes her daughter wanted her to. She denies syncope, chest pain, and leg pain. She does still make a fair amount of urine- she is unsure how much as she is incontinent and uses briefs at home. In the ER, she was hemodynamically stable. She did not require oxygen to keep her saturation >90. She received no medications. Allergies Allergy/AdvReac Type Severity Reaction Status Date / Time sulfamethoxazole AdvReac Unknown REMOTE Verified 03/26/23 20:39 [From Bactrim] HX/PT NOT SURE REACTION trimethoprim [From Bactrim] AdvReac Unknown REMOTE Verified 03/26/23 20:39 HX/PT NOT SURE REACTION Home Medications Medication Instructions Recorded Confirmed Type cholecalciferol (vitamin D3) 25 2,000 unit PO QAM 05/29/18 03/26/23 History mcg (1,000 unit) capsule (Vitamin D3) blood sugar diagnostic (Blood #100 ea 10/12/20 03/14/23 Rx Glucose Test strips) cyanocobalamin (vitamin B-12) 1,000 mcg PO QAM 11/12/20 03/26/23 History 1,000 mcg tablet (Vitamin B-12) bethanechol chloride 50 mg tablet 50 mg PO BID #180 tabs 04/19/21 03/26/23 Rx Saccharomyces boulardii 250 mg 250 mg PO BID #180 caps 12/05/21 03/26/23 Rx capsule (Florastor) diaper,brief,adult,disposable #150 ea 12/07/21 03/14/23 Rx (Fitted Briefs X-Large) sevelamer carbonate 800 mg tablet 1,600 mg PO BIDWMEAL 03/20/22 03/26/23 History calcium citrate 200 mg (950 mg) 400 mg PO QAM 05/29/22 03/26/23 History tablet loperamide 2 mg capsule 2 mg PO UD PRN Diarrhea 05/29/22 03/26/23 History estradiol 0.01% (0.1 mg/gram) 1 applic vaginal 3XWK PRN ONLY 05/30/22 03/26/23 History vaginal cream WHEN BURNING vitamin E 268 mg (400 unit) capsule 268 mg PO QAM 05/30/22 03/26/23 History pantoprazole 40 mg tablet,delayed 40 mg PO BID #60 tabs 06/02/22 03/26/23 Rx release (Protonix) nystatin 100,000 unit/gram topical 1 applic topical BID PRN IRRITATION 07/10/22 03/26/23 History powder furosemide 80 mg tablet 80 mg PO BID #180 tabs 11/14/22 03/26/23 Rx methocarbamol 500 mg tablet 500 mg PO TID PRN muscle spasm #90 01/14/23 03/26/23 Rx tabs levothyroxine 150 mcg capsule 150 mcg PO QAM #90 caps 01/23/23 03/26/23 Rx famotidine 20 mg tablet 20 mg PO BID 3 months #180 tabs 02/05/23 03/26/23 Rx triamcinolone acetonide 0.05 % 1 applic topical BID PRN FLARE 02/19/23 03/26/23 History topical ointment tramadol 50 mg tablet 50 mg PO BID PRN Pain #60 tabs 03/06/23 03/26/23 Rx atorvastatin 10 mg tablet (Lipitor) 10 mg PO HS #90 tabs 03/09/23 03/26/23 Rx dimethicone 1.3 % topical cream 1 applic topical .COMPLEX PRN skin 03/14/23 03/26/23 Rx (Cavilon Durable Barrier) irritation #92 grams ropinirole 0.5 mg tablet See Rx Instructions .Route 03/26/23 03/26/23 Rx .COMPLEX #120 tabs Past Med/Surg History Medical History Palliative care by specialist Atrial fibrillation, permanent Clostridioides difficile carrier Pancytopenia Atrial fibrillation and flutter Hemorrhoids History of recent hospitalization GAVE (gastric antral vascular ectasia) ESRD on hemodialysis Poor historian History of GI bleed Hx of atrial fibrillation, no current medication History of renal dialysis History of CVA (cerebrovascular accident) (2019) Resistant hypertension Diabetes mellitus, type 2 Hearing deficit Urinary urgency Anemia of chronic disease Chronic diastolic heart failure Chronic hyponatremia Anxiety RBBB Aortic stenosis CAD (coronary artery disease) Secondary hyperparathyroidism of renal origin Diabetic retinopathy Essential tremor Fatty liver First degree AV block GERD without esophagitis Hiatal hernia Hyperlipidemia Hypertension Hypothyroidism Osteoarthritis Restless legs Venous insufficiency 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 Surgical History History of esophagogastroduodenoscopy (EGD) S/P pericardiocentesis Hx of cardiac catheterization History of tooth extraction History of colonoscopy H/O varicose vein ligation S/P trigger finger release S/P knee replacement History of bladder suspension procedure S/P carpal tunnel release History of back surgery (04/2010) S/P hysterectomy Family History Father Alcohol abuse Heart disease Myocardial infarction Hypertension Sister Pancreatic cancer Diabetes Breast cancer Brother Diabetes Alcohol abuse Stroke Other Cancer No family history of adverse response to anesthesia Denies family history of Ovarian cancer Prostate cancer Colorectal cancer Social History Smoking Status: Never smoker Second Hand Exposure: No; Do You Dip or Chew Tobacco: No; Hx Alcohol Use: No Hx Substance Use: No Preferred Language: Danish Communication Ability: Effective Visual Impairment: No Limitations Hearing Ability: Normal 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: No Beliefs That Will Affect Care: None marital status: Single Current Living Situation: Alone current occupational status: retired How many Children do You have: 2 Other Information That Helps Us Care for You: No Feels Safe at Home: Yes Safety Concerns: Feels Safe At This Time Childhood Exposure to Second-Hand Smoke: No Diet: regular Diet Comment: regular caffeine: Yes (Coffee x 2 cups per day.) during the past year weight has: remained stable Dental Care, Regularly: No Physical Activity Frequency: Does not Exercise Seatbelt Use: always Sunscreen Use: Yes Assistive Devices: Denture - Upper, Denture - Lower and Walker Review of Systems Review of Systems: As per HPI Physical Exam Physical Exam: Constitutional: ill appearing, no acute distress HEENT: normocephalic, no conjunctival injection CV: regular rhythm, regular rate, 3/6 systolic murmur, no LE edema Respiratory: Decreased breath sounds in bilateral lung bases. No rhonchi, wheez es, or crackles. Minimally increased work of breathing with conversation and deep breathing. GI: soft, nondistended, nontender, + bowel sounds MSK: no gross deformities noted Skin: warm, dry; chronic venous stasis changes noted in bilateral LE (L>R) Neuro: alert, oriented, no FND noted Psych: mood and affect congruent Results & Data Results & Data Vital Signs (Past 12 Hours) Vital Signs Temp Pulse Pulse Resp BP Pulse Ox O2 Del Method 03/26/23 22:00 83 20 94 03/26/23 20:30 82 03/26/23 20:30 Room Air 03/26/23 19:26 92 Room Air 03/26/23 19:21 36.8 C 87 18 154/68 H 96 Room Air Supervising Physician Co-Signing Physician Notes Attending addendum: I have physically seen this patient, have supervised the medical residents activities, and agree with the H&P unless as otherwise noted. Assessment and Plan: Acute on chronic HFpEF/chronic left pleural effusion-- The patient will be admitted to telemetry for serial cardiac enzymes, serial EKG's, cardiac rhythm monitoring and a 2-D echocardiogram with Dopplers. Hold furosemide 80 mg p.o. twice daily this evening, and restart in the a.m. Give furosemide 80 mg IV this evening Follow serial CBC with differential, renal function panel and magnesium level Will benefit from dialysis in the a.m. ESRD on HD- Typical dialysis days are Sunday//Sunday Continue sevelamer Consult nephrology, follows with Dr. Will as an outpatient Anemia of chronic disease- Status post 1 unit of PRBCs as an outpatient today Hemoglobin 9.8 upon admission Follow serially Elevated troponin/aortic stenosis/permanent atrial fibrillation- Troponin 51.7 with follow-up 49.9 Likely supply demand mismatch in the setting of ESRD Repeat in a.m. Resident Activity Tracking Resident Involvement: Resident Care Provided Care Provided: Adult Hospital Medicine
[2023-03-27] MEDS ORDERED: FUROSEMIDE 40 MG/4 ML VIAL IV ONE (00:10)
[2023-03-27] MEDS ORDERED: ACETAMINOPHEN 325 MG TAB PO PRN (00:11)
[2023-03-27] MEDS ORDERED: MELATONIN 3 MG TAB PO PRN (00:11)
[2023-03-27] MEDS ORDERED: ONDANSETRON INJ 2 MG/ML 2 ML VIAL IV PRN (00:11)
[2023-03-27] MEDS ORDERED: LOPERAMIDE HCL 2 MG CAP PO PRN (00:45)
[2023-03-27] MEDS ORDERED: METHOCARBAMOL 500 MG TABLET PO PRN (00:45)
--- NOTE | 2023-03-27 04:49 | Billing Data ---
Date of Service March 27, 2023 Coding Level of Care Code 32169 INT INP/OBS CARE
[2023-03-27 05:00] LABS: BUN Creatinine Ratio 20.5 (10-20); Calcium 8.3 mg/dl (8.6-10.3); Creatinine Clr Calc Pharmacy 8.8 ml/min; Est GFR (Non-African American) 11.2 ml/min; Hematocrit (blood only) 29.9 % (37.0-47.0); Hemoglobin 9.5 g/dl (12.0-16.0); Mean Corpuscular Hemoglobin 30.4 pg (25.0-34.0); Mean Corpuscular Hgb Conc 31.8 g/dL (32.0-36.0); Mean Corpuscular Volume 95.8 fL (80.0-100.0); Mean Platelet Volume 10.8 fL (9.4-12.4); Platelet Count 130 K/uL (130-400); Potassium 4.6 mmol/L (3.5-5.1); RDW Coefficient of Variation 18.3 % (11.5-14.5); RDW Standard Deviation 64.4 fL (36.4-46.3); Red Blood Count 3.12 M/uL (4.20-5.40); White Blood Count 3.92 K/ul (4.8-10.8)
[2023-03-27] MEDS: LEVOTHYROXINE SODIUM 150 MCG TABLET PO SCH (06:01)
--- NOTE | 2023-03-27 07:47 | XRay Report ---
XR chest 1V not portable CLINICAL HISTORY: Chest pain, nonspecific TECHNIQUE: Single frontal radiograph of the chest was obtained. Comparison: Comparison is made to chest radiograph 02/19/2023 FINDINGS: Right dual lumen catheter is seen. Posterior fixation hardware is seen. Cardiomegaly is noted. The ao rtic arch is calcified. Prominence and cephalization of the vasculature is seen. Left lower lung airs pace opacity is seen. Moderate left and small right pleural effusion. IMPRESSION: 1. Cardiomegaly and mild pulmonary edema. This represents an increase from prior exam. 2. Moderate left and small right pleural effusion with underlying atelectasis, unchanged. ACT 112: Negative or not required by law. Electronically signed by: Isacc Pak M.D. 03/27/2023 7:45 AM
[2023-03-27] MEDS: rOPINIRole HCL 0.25 MG TABLET PO SCH (08:06)
[2023-03-27] MEDS: PANTOprazole 40 MG TAB PO SCH ×2 (08:06→20:34)
[2023-03-27] MEDS: FAMOTIDINE 20 MG TAB PO SCH ×2 (08:07→20:30)
[2023-03-27] MEDS: BETHANECHOL CHL 25 MG TAB PO SCH ×2 (08:07→20:32)
[2023-03-27] MEDS: SEVELAMER HCL 800 MG TABLET PO SCH ×2 (08:07→18:19)
[2023-03-27] MEDS: FUROSEMIDE 80 MG TAB PO SCH ×2 (08:07→17:54)
[2023-03-27] MEDS ORDERED: IRON SUCROSE 100 MG in SYRINGE 0 ML IV ONE (09:08)
[2023-03-27] MEDS ORDERED: EPOETIN ALFA 20,000 UNITS/ML VIAL IV ONE (09:08)
--- NOTE | 2023-03-27 09:10 | Nephrology Consultation ---
Date of Consultation March 27, 2023 Assessment & Plan (1) ESRD (end stage renal disease) on dialysis: ESKD due to CRS (severe ). Outpatient HD: [facility] TTS, 3.5hr, 2K 2.5Ca 1Mg F-180NR, EDW 65.5 kg. Will provide heparin free HD today using R IJ TDC. UF as tolerated. Orders for HD entered into the EHR and reviewed with RN. Medications are appropriately dosed for kidney function. Renal diet. 1.2 L daily fluid restriction. Sevelamer QAC. (2) Anemia of chronic disease: Maintained on Micera 225 Q 2 weeks + Venofer 100 mg QHD as outpatient. Venofer 100 mg IV and Epogen 91769 units to be provided with HD today. Monitor H/H daily. (3) GAVE (gastric antral vascular ectasia): s/p gastric banding 02/12/23 at [facility]. Hold heparin on HD due to h/o GAVE requiring multiple blood transfusions. History of Present Illness Reason for Consultation: ESRD, dialysis T//Sun Requesting Physician: Ronald Mae MD Attending Physician: Ronald Mae MD History of Present Illness Sully Ray is an 89 year-old female with ESKD attributed to to CRS. She has been on HD since 08/23 and currently dialyzes TTS at [facility] under the care of Dr. Will (3.5hr, 2K 2.5Ca F-180NR, EDW 65.5 kg). Her medical history is significant for severe , mitral stenosis, R heart failure, permanent atrial fibrillation (not on anticoagulation due to GI bleeds), GAVE w/ recurrent UGI bleed requiring frequent blood transfusion, CVA, AODM, hypothyroidism. Ms. Ray was hospitalized at [place], [place] 02/12/23-02/13/23 for EGD and stomach banding due to recurrent GI bleed. She was admitted to [facility] from 02/19/23- 02/22/23 with Pseudomonas UTI and influenza A. Treatment included cefepime, levofloxacin, and Tamiflu. She also received 2 units of PRBC transfusion support for acute blood loss anemia. She has continued to receive regular transfusion support as an outpatient. 1 unit PRBC transfusion support provided yesterday. Sully reports persistent weakness following her recent hospital izations. She describes noted debility and progressive MCKEON. She has not had any recent complications with her dialysis treatments. She completed a full dialysis treatment on Sunday. Net UF <1 L. She left HD at 65.1 kg. Sully dialyzes via a R IJ TDC. Myae to me this morning that she hates dialysis and has thought about stopping but continues treatments so she can spend time with her family. Urine studies were sent by her PCP yesterday. Sully reports some mild persistent dysuria since her recent hospitalization. She describes some irritation in the lower pelvic area. No fevers or chills or flank pain reported. She denies melena or hematochezia. Sully reports constipation for the past 2 days. She has continued to experience intermittent lightheadedness at home. Lifestyle is very sedentary. I spoke to her niece (Leticia) who lives nearby. Leticia describes a significant decline in functional status in the past couple of months and notably following recent hospitalization. Allergies Allergy/AdvReac Type Severity Reaction Status Date / Time sulfamethoxazole AdvReac Unknown REMOTE Verified 03/26/23 20:39 [From Bactrim] HX/PT NOT SURE REACTION trimethoprim [From Bactrim] AdvReac Unknown REMOTE Verified 03/26/23 20:39 HX/PT NOT SURE REACTION Home Medications Medication Instructions Recorded Confirmed Type cholecalciferol (vitamin D3) 25 2,000 unit PO QAM 05/29/18 03/26/23 History mcg (1,000 unit) capsule (Vitamin D3) blood sugar diagnostic (Blood #100 ea 10/12/20 03/14/23 Rx Glucose Test strips) cyanocobalamin (vitamin B-12) 1,000 mcg PO QAM 11/12/20 03/26/23 History 1,000 mcg tablet (Vitamin B-12) bethanechol chloride 50 mg tablet 50 mg PO BID #180 tabs 04/19/21 03/26/23 Rx Saccharomyces boulardii 250 mg 250 mg PO BID #180 caps 12/05/21 03/26/23 Rx capsule (Florastor) diaper,brief,adult,disposable #150 ea 12/07/21 03/14/23 Rx (Fitted Briefs X-Large) sevelamer carbonate 800 mg tablet 1,600 mg PO BIDWMEAL 03/20/22 03/26/23 History calcium citrate 200 mg (950 mg) 400 mg PO QAM 05/29/22 03/26/23 History tablet loperamide 2 mg capsule 2 mg PO UD PRN Diarrhea 05/29/22 03/26/23 History estradiol 0.01% (0.1 mg/gram) 1 applic vaginal 3XWK PRN ONLY 05/30/22 03/26/23 History vaginal cream WHEN BURNING vitamin E 268 mg (400 unit) capsule 268 mg PO QAM 05/30/22 03/26/23 History pantoprazole 40 mg tablet,delayed 40 mg PO BID #60 tabs 06/02/22 03/26/23 Rx release (Protonix) nystatin 100,000 unit/gram topical 1 applic topical BID PRN IRRITATION 07/10/22 03/26/23 History powder furosemide 80 mg tablet 80 mg PO BID #180 tabs 11/14/22 03/26/23 Rx methocarbamol 500 mg tablet 500 mg PO TID PRN muscle spasm #90 01/14/23 03/26/23 Rx tabs levothyroxine 150 mcg capsule 150 mcg PO QAM #90 caps 01/23/23 03/26/23 Rx famotidine 20 mg tablet 20 mg PO BID 3 months #180 tabs 02/05/23 03/26/23 Rx triamcinolone acetonide 0.05 % 1 applic topical BID PRN FLARE 02/19/23 03/26/23 History topical ointment tramadol 50 mg tablet 50 mg PO BID PRN Pain #60 tabs 03/06/23 03/26/23 Rx atorvastatin 10 mg tablet (Lipitor) 10 mg PO HS #90 tabs 03/09/23 03/26/23 Rx dimethicone 1.3 % topical cream 1 applic topical .COMPLEX PRN skin 03/14/23 03/26/23 Rx (Cavilon Durable Barrier) irritation #92 grams ropinirole 0.5 mg tablet See Rx Instructions .Route 03/26/23 03/26/23 Rx .COMPLEX #120 tabs Patient History Medical History Palliative care by specialist Atrial fibrillation, permanent Clostridioides difficile carrier Pancytopenia Atrial fibrillation and flutter Hemorrhoids History of recent hospitalization GAVE (gastric antral vascular ectasia) ESRD on hemodialysis Poor historian History of GI bleed Hx of atrial fibrillation, no current medication History of renal dialysis History of CVA (cerebrovascular accident) (2019) Resistant hypertension Diabetes mellitus, type 2 Hearing deficit Urinary urgency Anemia of chronic disease Chronic diastolic heart failure Chronic hyponatremia Anxiety RBBB Aortic stenosis CAD (coronary artery disease) Secondary hyperparathyroidism of renal origin Diabetic retinopathy Essential tremor Fatty liver First degree AV block GERD without esophagitis Hiatal hernia Hyperlipidemia Hypertension Hypothyroidism Osteoarthritis Restless legs Venous insufficiency 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 Surgical History History of esophagogastroduodenoscopy (EGD) S/P pericardiocentesis Hx of cardiac catheterization History of tooth extraction History of colonoscopy H/O varicose vein ligation S/P trigger finger release S/P knee replacement History of bladder suspension procedure S/P carpal tunnel release History of back surgery (04/2010) S/P hysterectomy Family History Father Alcohol abuse Heart disease Myocardial infarction Hypertension Sister Pancreatic cancer Diabetes Breast cancer Brother Diabetes Alcohol abuse Stroke Other Cancer No family history of adverse response to anesthesia Denies family history of Ovarian cancer Prostate cancer Colorectal cancer Social History Smoking Status: Never smoker Second Hand Exposure: No; Do You Dip or Chew Tobacco: No; Hx Alcohol Use: No Hx Substance Use: No Preferred Language: Malay Communication Ability: Effective Visual Impairment: No Limitations Hearing Ability: Normal 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 Driver Required: No Beliefs That Will Affect Care: None marital status: Single Current Living Situation: Alone current occupational status: retired How many Children do You have: 2 Feels Safe at Home: Yes Childhood Exposure to Second-Hand Smoke: No Diet: regular Diet Comment: regular caffeine: Yes (Coffee x 2 cups per day.) during the past year weight has: remained stable Dental Care, Regularly: No Physical Activity Frequency: Does not Exercise Seatbelt Use: always Sunscreen Use: Yes Assistive Devices: Denture - Upper, Denture - Lower and Walker Review of Systems Review of Systems: All systems reviewed & are unremarkable except as noted in HPI & below Constitutional: + fatigue and + weakness Respiratory: + chest congestion, + dyspnea and + dysp dariela on exertion; no cough Cardiovascular: + lightheadedness; no chest pain, no pal pitations and no edema Physical Exam Constitutional: + frail appearing Eyes: PERRL, conjunctivae normal, anicteric sclerae ENMT: external ear and nose normal, oropharynx normal Neck: trachea midline, no thyromegaly RIJ TDC Respiratory: no respiratory distress Cardiovascular: Rate/Rhythm: regular rate and regular rhythm Heart Sounds: normal S1, normal S2 and + murmur Extremities: no edema Gastrointestinal (Abdomen): normal bowel sounds, soft, nontender, no hepatosplenomegaly Skin: + turgor decreased Neurologic: Speech / Cognition: normal speech and normal cognition Psychiatric: Affect: + anxious affect Results & Data Vital Signs (Past 12 Hours) Vital Signs Pulse Pulse Resp BP Pulse Ox O2 Del Method 03/27/23 07:26 83 18 182/87 H 94 Room Air 03/27/23 07:11 83 03/27/23 04:24 80 16 175/79 H 95 Room Air 03/27/23 03:16 81 03/27/23 00:37 80 16 156/83 H 96 Room Air 03/27/23 00:30 77 03/26/23 22:00 83 20 94 Laboratory Results Laboratory Results - last 24 hr 03/26/23 03/26/23 03/26/23 19:37 21:07 22:21 WBC 4.33 L RBC 3.20 L Hgb 9.8 L Hct 31.2 L MCV 97.5 MCH 30.6 MCHC 31.4 L RDW Std Deviation 66.8 H RDW Coeff of Irasema 18.7 H Plt Count 136 MPV 10.4 Immature Gran % (Auto) 0.2 Neut % (Auto) 79.5 Lymph % (Auto) 9.9 Park % (Auto) 7.6 Eos % (Auto) 2.1 Baso % (Auto) 0.7 Neut # (Auto) 3.44 Lymph # (Auto) 0.43 L Park # (Auto) 0.33 Eos # (Auto) 0.09 Baso # (Auto) 0.03 Immature Gran # (Auto) 0.01 PT 11.0 INR 1.0 APTT 30 PTT Ratio 1.1 Sodium 138 Potassium 4.6 Chloride 101 Carbon Dioxide 27 Anion Gap 10 BUN 68 H Creatinine 3.33 H Est Cr Clr Drug Dosing Not Reportable Est GFR ( Amer) 13.9 Est GFR (Non-Af Amer) 12.0 BUN/Creatinine Ratio 20.4 H Glucose 153 H Calcium 8.4 L Total Bilirubin 0.6 AST 34 ALT 20 Alkaline Phosphatase 258 H Troponin I High Sens 47.8 H 51.7 H* B-Natriuretic Peptide 1055 H Total Protein 6.2 Albumin 3.4 Globulin 2.8 Albumin/Globulin Ratio 1.2 SARS-CoV-2 (PCR) NEGATIVE Influenza Type A (PCR) Negative Influenza Type B (PCR) Negative RSV (RT-PCR) Negative 03/27/23 03:58 WBC 3.92 L RBC 3.12 L Hgb 9.5 L Hct 29.9 L MCV 95.8 MCH 30.4 MCHC 31.8 L RDW Std Deviation 64.4 H RDW Coeff of Irasema 18.3 H Plt Count 130 MPV 10.8 Immature Gran % (Auto) Neut % (Auto) Lymph % (Auto) Park % (Auto) Eos % (Auto) Baso % (Auto) Neut # (Auto) Lymph # (Auto) Park # (Auto) Eos # (Auto) Baso # (Auto) Immature Gran # (Auto) PT INR APTT PTT Ratio Sodium 137 Potassium 4.6 Chloride 100 Carbon Dioxide 28 Anion Gap 9 BUN 72 H Creatinine 3.52 H Est Cr Clr Drug Dosing 8.8 Est GFR ( Amer) 13.0 Est GFR (Non-Af Amer) 11.2 BUN/Creatinine Ratio 20.5 H Glucose 147 H Calcium 8.3 L Total Bilirubin AST ALT Alkaline Phosphatase Troponin I High Sens 49.9 H B-Natriuretic Peptide Total Protein Albumin Globulin Albumin/Globulin Ratio SARS-CoV-2 (PCR) Influenza Type A (PCR) Influenza Type B (PCR) RSV (RT-PCR) Diagnostic Findings XR chest 1V not portable Comparison: Comparison is made to chest radiograph 02/19/2023 FINDINGS: Right dual lumen catheter is seen. Posterior fixation hardware is seen. C ardiomegaly is noted. The aortic arch is calcified. Prominence and cephalization of the vasculature is seen. Left lower lung airspace opacity is seen. Moderate left and small right pleural effusion. IMPRESSION: 1. Cardiomegaly and mild pulmonary edema. This represents an increase from prior exam. 2. Moderate left and small right pleural effusion with underlying atelectasis, unchanged. PG Care Time/CCT Total # of Minutes Spent Total Time Spent with Patient: Total time spent is greater than 50% in coordination of care (as documented) at patient's floor/unit and/or counseling patient: Coding Level of Care Code 43249 IN/OBS CONSULT LVL 5,80M Diagnoses ESRD (end stage renal disease) on dialysis N18.6; Z99.2 Anemia of chronic disease D63.8 GAVE (gastric antral vascular ectasia) K31.819
--- NOTE | 2023-03-27 12:17 | Electrocardiogram Report ---
Test Reason : Blood Pressure : / mmHG Vent. Rate : 091 BPM Atrial Rate : 000 BPM P-R Int : 000 ms QRS Dur : 118 ms QT Int : 406 ms P-R-T Axes : 000 -23 -02 degrees QTc Int : 499 ms Sinus rhythm with long 1st degree AV block Low voltage QRS Right bundle branch block Abnormal ECG When compared with ECG of 22-FEB-2023 14:30, T wave inversion no longer evident in Anterior leads Confirmed by Ronald Moura ([id number]) on 03/27/2023 12:17:01 PM Referred By: REFERRED SELF Confirmed By:Chris Moura
--- NOTE | 2023-03-27 15:51 | Discharge Summary ---
Date of Service March 27, 2023 Admission HPI Per Admitting Provider Pt is a 83 yo female with PMH of afib, CVA (2018), HTN, DM, ESRD on dialysis (), aortic stenosis, HFpEF, and HLD presenting to the hospital d/t SOB. Pt explains that she has been SOB for the last few weeks. It has been getting progressively worse. She is unsure if it is better or worse when sitting/lying. She notes that she got 1 unit of blood today d/t her anemia. She has received blood transfusions in the past. She has not missed any dialysis appointments and has been taking her medications as prescribed. She did not want to come into the hospital but notes her daughter wanted her to. She denies syncope, chest pain, and leg pain. She does still make a fair amount of urine- she is unsure how much as she is incontinent and uses briefs at home. In the ER, she was hemodynamically stable. She did not require oxygen to keep her saturation >90. She received no medications. Discharge Data Allergies Allergy/AdvReac Type Severity Reaction Status Date / Time sulfamethoxazole AdvReac Unknown REMOTE Verified 03/26/23 20:39 [From Bactrim] HX/PT NOT SURE REACTION trimethoprim [From Bactrim] AdvReac Unknown REMOTE Verified 03/26/23 20:39 HX/PT NOT SURE REACTION Consultations 03/26/23 22:28 ED Decision to Admit Stat 03/27/23 00:11 Consult Nephrology Routine Hospital Course (1) Shortness of breath: Pt is a 83 yo female with PMH of afib, CVA (2018), HTN, DM, ESRD on dialysis (), aortic stenosis, HFpEF, and HLD presenting to the hospital d/t SOB. Acute on chronic HFpEF - CXR showed pulmonary edema and effusion (L>R); left effusion present on previous CXR 02/19/2023 but vascular congestion is worsened - BNP elevated to 1055; decreased breath sounds in bilateral lung bases on exam - will order lasix 80mg IV x1 and monitor diuresis - resume home lasix 80mg BID tomorrow AM - last echo 02/2023; no need to repeat now ESRD - pt follows with Dr. Will outpatient - current dialysis schedule - Cr 3.33 upon admission - continue home sevelamer - plan for dialysis tomorrow as scheduled; nephro consulted Anemia of chronic disease - s/p 1 unit pRBCs today as outpatient - Hgb upon admission 9.8 - continue to monitor Elevated trop - 47.8 upon arrival, repeat 51.7; suspect demand ischemia - trend to peak Aortic stenosis - last echo 02/2023 showed moderate to severe HTN - per pt, she has been taken off many of her BP medications because her BPs were low - continue lasix as above Hx of CVA - continue atorvastatin 10 mg DM - last A1c 02/2023 4.7% - no longer on any medications at home - no need for SSI/glargine at this point Diet: renal Code: DNR/DNI VTE ppx: will start heparin after dialysis tomorrow Dispo: med/tele (2) End-stage renal disease (ESRD): (3) Aortic stenosis: (4) Diabetes mellitus type 2 with complications: (5) Hyperlipidemia: (6) CAD (coronary artery disease): (7) Chronic diastolic heart failure: (8) History of CVA (cerebrovascular accident): (9) Anemia of chronic disease: (10) Elevated troponin: Discharge Plan Discharge Items Reason For Visit: SOB Follow-up/Referrals: Agatha Alfaro DO [Primary Care Provider] - Medications and DC Order Prescriptions: No Action (DME) Blood Glucose Test Strip See Rx Instructions .ROUTE .MEDSUPPLY Qty: 100 5RF Rx Instructions: Accucheck perform strips. 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 bethanechol chloride 50 mg tablet 50 mg PO BID Qty: 180 3RF Saccharomyces boulardii [Florastor] 250 mg capsule 250 mg PO BID Qty: 180 3RF (DME) Fitted Briefs X-Large Misc See Rx Instructions .Route Qty: 150 5RF Rx Instructions: using 4-5 per day R19.7 furosemide 80 mg tablet 80 mg PO BID Qty: 180 1RF methocarbamol 500 mg tablet 500 mg PO TID PRN (Reason: muscle spasm) Qty: 90 1RF levothyroxine 150 mcg capsule 150 mcg PO QAM Qty: 90 1RF famotidine 20 mg tablet 20 mg PO BID 90 Days Qty: 180 0RF tramadol 50 mg tablet 50 mg PO BID PRN (Reason: Pain) Qty: 60 0RF atorvastatin [Lipitor] 10 mg tablet 10 mg PO HS Qty: 90 1RF ropinirole 0.5 mg tablet See Rx Instructions .ROUTE .COMPLEX Qty: 120 5RF Rx Instructions: Take 1 tab PO AM, 3 tabs PO QHS; cephalexin 500 mg capsule 500 mg PO BID 7 Days Qty: 14 0RF Cavilon Durable Barrier 1.3 % cream 1 applic topical .COMPLEX PRN (Reason: skin irritation) Qty: 92 2RF Rx Instructions: as needed for skin protection cholecalciferol (vitamin D3) [Vitamin D3] 1,000 unit Capsule 2,000 unit PO QAM calcium citrate 200 mg (950 mg) Tablet 400 mg PO QAM loperamide 2 mg Capsule 2 mg PO UD PRN (Reason: Diarrhea) Rx Instructions: administer after each loose stool until symptoms controlled; do not exceed 8 mg per 24 hrs estradiol 0.01 % (0.1 mg/gram) cream 1 applic VAGINAL 3XWK PRN (Reason: ONLY WHEN BURNING) vitamin E 268 mg (400 unit) Capsule 268 mg PO QAM pantoprazole [Protonix] 40 mg tablet,delayed release (DR/EC) 40 mg PO BID Qty: 60 5RF nystatin 100,000 unit/gram powder 1 applic TOPICAL BID PRN (Reason: IRRITATION) cyanocobalamin (vitamin B-12) [Vitamin B-12] 1,000 mcg tablet 1,000 mcg PO QAM sevelamer carbonate 800 mg Tablet 1,600 mg PO BIDWMEAL Rx Instructions: must administer with a meal/food triamcinolone acetonide 0.05 % ointment 1 applic topical BID PRN (Reason: FLARE) Admission Data Admit Date/Time: 03/27/23 00:11 Attending Provider: Ronald Mae Admit Provider: Monique Ross Primary Care Provider: Agatha Alfaro Other Providers: Jhon Beck Kevin C. Supervising Physician Co-Signing Physician Notes Attending attestation Pt seen and examined in concert with Dr. Terrell. In agreement with the documented findings as noted in the resident documentation with any exceptions or additions as noted here. Resting comfortably in bed with breathing status improved following diuresis and dialysis approaching chronic baseline. On examination, S1/S2 nl RRR no MCG. CTAB. Abd NT/ND BS+ve Acute on chronic HFpEF - significantly improved with good urine output. Resume home furosemide and monitor home weights. ESRD on HD - s/p dialysis in hospital today, resume normal schedule. Continue sevelamer Anemic of chronic disease - Hgb 9.5 s/p 1 U PRBC Else see resident documentation as noted. Total attending physician time spent with this patient's care on the day of discharge: 40 minutes.
--- NOTE | 2023-03-27 16:58 | Hospitalist Progress Note ---
Date of Service March 27, 2023 Assessment & Plan (1) Shortness of breath: (2) End-stage renal disease (ESRD): (3) Aortic stenosis: (4) Diabetes mellitus type 2 with complications: (5) Hyperlipidemia: (6) CAD (coronary artery disease): (7) Chronic diastolic heart failure: (8) History of CVA (cerebrovascular accident): (9) Anemia of chronic disease: (10) Elevated troponin: (11) UTI (urinary tract infection): Plan Pt is a 83 yo female with PMH of afib, CVA (2018), HTN, DM, ESRD on dialysis (T//Sun), aortic stenosis, HFpEF, and HLD presenting to the hospital d/t SOB. Bacteriuria cultures + gram negative rods and probable enterococcus empiric zosyn due to poor renal function f/u speciation and sensitivities Acute on chronic HFpEF - s/p dialysis today, 3.5L dialyzed. + 500mL UOP - repeat BNP am - resume home lasix 80mg BID today - last echo 02/2023; no need to repeat now ESRD - pt follows with Dr. Will outpatient - current dialysis schedule //Sun - Cr 3.33 upon admission - continue home sevelamer - nephro consulted - Plan for dialysis Th if remains admitted Anemia of chronic disease - s/p 1 unit pRBCs today as outpatient - Hgb upon admission 9.8 - continue to monitor Elevated trop - peaked - suspect demand ischemia - trend to peak Aortic stenosis - last echo 02/2023 showed moderate to severe HTN - per pt, she has been taken off many of her BP medications because her BPs were low - continue lasix as above Hx of CVA - continue atorvastatin 10 mg DM - last A1c 02/2023 4.7% - no longer on any medications at home - no need for SSI/glargine at this point Admission and Anticipated Discharge Date Admission Date: March 27, 2023 Supervising Physician Co-Signing Physician Notes Attending attestation Pt seen and examined in concert with Dr. Terrell. In agreement with the documented findings as noted in the resident documentation with any exceptions or additions as noted here. Subjective return to respiratory baseline with no further abdominal/urinary symptoms reported. On examination, S1/S2 nl RRR no MCG. CTAB. Abd NT/ND BS+ve UTI - transition to PO augmentin after discussion w/ nephrology to complete course Acute on chronic HFpEF - exacerbation resolved, return to home diuretic regimen and monitor weights ESRD on HD - following / for HD with Dr. Will Else see resident documentation as noted. Subjective No acute changes overnight. Diuresing well. Dialysis successful with >3L removed. Urine growing gram negative rods and likely enterococcus. Reports better work of breathing. Reports minor dysuria. NAD. Denies MURILLO, CP, N/V/D. Review of Systems Review of Systems: .reviewed per hpi Physical Exam Physical Exam: Constitutional: ill appearing, no acute distress HEENT: normocephalic, no conjunctival injection CV: regular rhythm, regular rate, 3/6 systolic murmur, no LE edema Respiratory: Breath sounds improved after diuresis and dialysis. No rhonchi, wheezes, or crackles. GI: soft, nondistended, nontender, + bowel sounds MSK: no gross deformities noted Skin: warm, dry; chronic venous stasis changes noted in bilateral LE (L>R) Neuro: alert, oriented, no FND noted Psych: mood and affect congruent Results & Data Results & Data Vital Signs (Past 12 Hours) Vital Signs Temp Pulse Pulse Pulse Resp BP BP 03/27/23 16:08 36.8 C 103 H 18 162/85 H 03/27/23 15:35 36.7 C 93 H 165/81 H 03/27/23 15:00 99 H 140/75 03/27/23 14:30 100 H 157/90 H 03/27/23 14:00 97 H 169/85 H 03/27/23 13:30 98 H 168/91 H 03/27/23 13:00 91 H 152/81 H 03/27/23 12:30 93 H 168/81 H 03/27/23 12:00 90 182/83 H 03/27/23 11:52 36.8 C 91 H 03/27/23 07:26 83 18 182/87 H 03/27/23 07:11 83 Pulse Ox O2 Del Method 03/27/23 16:08 97 Room Air 03/27/23 15:35 03/27/23 15:00 03/27/23 14:30 03/27/23 14:00 03/27/23 13:30 03/27/23 13:00 03/27/23 12:30 03/27/23 12:00 03/27/23 11:52 03/27/23 07:26 94 Room Air 03/27/23 07:11 (11) UTI (urinary tract infection) Hematuria presence: without hematuria Urinary tract infection type: site unspecified Qualified Code(s): N39.0 - Urinary tract infection, site not specified
[2023-03-27] MEDS ORDERED: FUROSEMIDE 80 MG TAB PO SCH (17:00)
[2023-03-27] MEDS ORDERED: PIPERACILLIN/TAZOBACTAM 4.5 GM in DEXTROSE 5% MINI-B 100 ML IV ONE (17:00)
[2023-03-27] MEDS: HEPARIN SOD 5,000 UNIT/0.5 ML VIAL SQ SCH (20:34)
[2023-03-27] MEDS ORDERED: rOPINIRole HCL 0.25 MG TABLET PO SCH (21:00)
[2023-03-27] MEDS ORDERED: ATORVASTATIN 10 MG TAB PO SCH (21:00)
[2023-03-28] MEDS: PIPERACILLIN/TAZOBACTAM 4.5 GM in DEXTROSE 5% MINI-B 100 ML IV SCH ×2 (01:45→14:25)
[2023-03-28 05:12] LABS: Calcium 8.3 mg/dl (8.6-10.3); Potassium 3.9 mmol/L (3.5-5.1)
[2023-03-28 05:20] LABS: BUN Creatinine Ratio 12.8 (10-20); Creatinine Clr Calc Pharmacy 13.1 ml/min; Est GFR (African American) 21.2 ml/min; Est GFR (Non-African American) 18.3 ml/min
[2023-03-28] MEDS: LEVOTHYROXINE SODIUM 150 MCG TABLET PO SCH (06:03)
[2023-03-28] MEDS: SEVELAMER HCL 800 MG TABLET PO SCH (07:56)
[2023-03-28] MEDS: BETHANECHOL CHL 25 MG TAB PO SCH (07:56)
[2023-03-28] MEDS: FAMOTIDINE 20 MG TAB PO SCH (07:57)
[2023-03-28] MEDS: PANTOprazole 40 MG TAB PO SCH (07:57)
[2023-03-28] MEDS: rOPINIRole HCL 0.25 MG TABLET PO SCH (07:57)
[2023-03-28] MEDS: FUROSEMIDE 80 MG TAB PO SCH (07:57)
[2023-03-28] MEDS: HEPARIN SOD 5,000 UNIT/0.5 ML VIAL SQ SCH (07:59)
--- NOTE | 2023-03-28 08:49 | Nephrology Progress Note ---
Date of Service March 28, 2023 Assessment & Plan (1) ESRD (end stage renal disease) on dialysis: Plan: ESKD due to CRS (severe ). Outpatient HD: [facility] TTS, 3.5hr, 2K 2.5Ca 1Mg F-180NR, EDW 65.5 kg - it appears that this could be adjusted. HD provided yesterday with adequate clearance and UF. We were able to challenge EDW using critline. BP, volume status, and electrolytes are acceptable. Next HD will be tomorrow. Medications are appropriately dosed for kidney function. Renal diet. 1.2 L daily fluid restriction. Sevelamer QAC. I do not have any concerns with Sully being discharged today from a nephrology perspective. she can resume her outpatient schedule at [facility] tomorrow. (2) Anemia of chronic disease: Plan: Maintained on Micera 225 Q 2 weeks + Venofer 100 mg QHD as outpatient. Venofer 100 mg IV and Epogen 51759 units provided with HD yesterday. 1 u PRBC transfusion support provided on 03/26/23. Denies melena or hematochezia overnight. (3) GAVE (gastric antral vascular ectasia): Plan: s/p gastric banding 02/12/23 at [facility]. Hold heparin on HD due to h/o GAVE requiri ng multiple blood transfusions. Admission and Anticipated Discharge Date Admission Date: March 27, 2023 Subjective No acute events overnight. Tolerated HD well yesterday. No complications with treatment. Sully feels well this AM. She denies shortness of breath. No fevers or chills. No urinary symptoms. She would like to go home today. Review of Systems Review of Systems: All systems reviewed & are unremarkable except as noted in HPI & below Physical Exam Constitutional: + frail appearing Eyes: PERRL, conjunctivae normal, anicteric sclerae ENMT: external ear and nose normal, oropharynx normal Neck: trachea midline, no thyromegaly Respiratory: no respiratory distress Auscultation: lungs clear to auscultation bilaterally Cardiovascular: Rate/Rhythm: regular rate and regular rhythm Heart Sounds: normal S1, normal S2 and + murmur Extremities: no edema Gastrointestinal (Abdomen): normal bowel sounds, soft, nontender, no hepatosplenomegaly Skin: + turgor decreased Neurologic: Speech / Cognition: normal speech and normal cognition Psychiatric: Affect: + anxious affect Results & Data Vital Signs (Past 12 Hours) Vital Signs Pulse Pulse Pulse Resp BP BP Pulse Ox 03/28/23 07:55 82 15 158/70 H 98 03/28/23 07:34 80 03/28/23 07:00 81 17 156/70 H 96 03/28/23 05:30 74 19 153/84 H 94 03/28/23 05:30 74 19 03/28/23 05:00 147/76 H 03/28/23 05:00 77 21 94 03/28/23 04:30 151/79 H 03/28/23 04:30 78 18 95 03/28/23 04:00 81 19 145/85 H 95 03/28/23 04:00 81 19 93 03/28/23 03:30 75 23 90 03/28/23 03:30 158/76 H 03/28/23 03:00 79 20 161/90 H 97 03/28/23 03:00 79 22 97 03/28/23 02:30 83 18 96 03/28/23 02:00 80 20 134/62 95 03/28/23 02:00 80 20 03/28/23 01:30 79 14 03/28/23 01:00 71 15 03/28/23 01:00 79 21 149/68 H 94 03/28/23 00:30 79 25 H 03/28/23 00:00 88 21 158/82 H 94 03/28/23 00:00 88 47 H 94 03/27/23 23:30 165/78 H 03/27/23 23:30 82 21 97 03/27/23 23:00 79 19 156/81 H 96 03/27/23 23:00 79 19 96 03/27/23 22:30 149/77 H 03/27/23 22:30 83 24 95 03/27/23 22:00 78 29 H 03/27/23 21:30 139/77 03/27/23 21:30 76 18 93 03/27/23 21:00 88 16 96 O2 Del Method 03/28/23 07:55 Room Air 03/28/23 07:34 03/28/23 07:00 Room Air 03/28/23 05:30 03/28/23 05:30 03/28/23 05:00 03/28/23 05:00 03/28/23 04:30 03/28/23 04:30 03/28/23 04:00 03/28/23 04:00 03/28/23 03:30 03/28/23 03:30 03/28/23 03:00 03/28/23 03:00 03/28/23 02:30 03/28/23 02:00 03/28/23 02:00 03/28/23 01:30 03/28/23 01:00 03/28/23 01:00 03/28/23 00:30 03/28/23 00:00 03/28/23 00:00 03/27/23 23:30 03/27/23 23:30 03/27/23 23:00 03/27/23 23:00 03/27/23 22:30 03/27/23 22:30 03/27/23 22:00 03/27/23 21:30 03/27/23 21:30 03/27/23 21:00 Laboratory Results Laboratory Results - last 24 hr 03/28/23 04:15 Sodium 138 Potassium 3.9 Chloride 102 Carbon Dioxide 27 Anion Gap 9 BUN 30 H D Creatinine 2.35 H D Est Cr Clr Drug Dosing 13.1 Est GFR ( Amer) 21.2 Est GFR (Non-Af Amer) 18.3 BUN/Creatinine Ratio 12.8 Glucose 131 H Calcium 8.3 L B-Natriuretic Peptide 947 H PG Care Time/CCT Total # of Minutes Spent Total Time Spent with Patient: Total time spent is greater than 50% in coordination of care (as documented) at patient's floor/unit and/or counseling patient: Coding Level of Care Code 51588 SUB INP/OBS CARE 3/50MIN Diagnoses ESRD (end stage renal disease) on dialysis N18.6; Z99.2 Anemia of chronic disease D63.8 GAVE (gastric antral vascular ectasia) K31.819
--- NOTE | 2023-03-28 12:20 | Communication Note ---
Date of Service: March 28, 2023 By CMS guidelines, a determination that the admission or continued stay is not medically necessary has been made by a member of the UR committee and a ph ysician for this hospital stay, therefore a Code 44 will be completed and the Inpatient admission will be changed to outpatient.
--- NOTE | 2023-03-28 13:52 | Discharge Summary ---
Date of Service March 28, 2023 Admission HPI Per Admitting Provider Pt is a 83 yo female with PMH of afib, CVA (2019), HTN, DM, ESRD on dialysis (//Sun), aortic stenosis, HFpEF, and HLD presenting to the hospital d/t SOB. Pt explains that she has been SOB for the last few weeks. It has been getting progressively worse. She is unsure if it is better or worse when sitting/lying. She notes that she got 1 unit of blood today d/t her anemia. She has received blood transfusions in the past. She has not missed any dialysis appointments and has been taking her medications as prescribed. She did not want to come into the hospital but notes her daughter wanted her to. She denies syncope, chest pain, and leg pain. She does still make a fair amount of urine- she is unsure how much as she is incontinent and uses briefs at home. In the ER, she was hemodynamically stable. She did not require oxygen to keep her saturation >90. She received no medications. Admission Exam Per Admitting Provider Constitutional: ill appearing, no acute distress HEENT: normocephalic, no conjunctival injection CV: regular rhythm, regular rate, 3/6 systolic murmur, no LE edema Respiratory: Decreased breath sounds in bilateral lung bases. No rhonchi, wheezes, or crackles. Minimally increased work of breathing with conversation and deep breathing. GI: soft, nondistended, nontender, + bowel sounds MSK: no gross deformities noted Skin: warm, dry; chronic venous stasis changes noted in bilateral LE (L>R) Neuro: alert, oriented, no FND noted Psych: mood and affect congruent Principal Diagnosis CHF exacerbation UTI Discharge Exam Constitutional: no acute distress HEENT: normocephalic, no conjunctival injection CV: regular rhythm, regular rate, 3/6 systolic murmur, no LE edema Respiratory: Breath sounds improved after diuresis and dialysis. No rhonchi, wheezes, or crackles. GI: soft, nondistended, nontender, + bowel sounds MSK: no gross deformities noted Skin: warm, dry; chronic venous stasis changes noted in bilateral LE (L>R) Neuro: alert, oriented, no FND noted Psych: mood and affect congruent Discharge Data Allergies Allergy/AdvReac Type Severity Reaction Status Date / Time sulfamethoxazole AdvReac Unknown REMOTE Verified 03/26/23 20:39 [From Bactrim] HX/PT NOT SURE REACTION trimethoprim [From Bactrim] AdvReac Unknown REMOTE Verified 03/26/23 20:39 HX/PT NOT SURE REACTION Consultations 03/26/23 22:28 ED Decision to Admit Stat 03/27/23 00:11 Consult Nephrology Routine Hospital Course (1) Shortness of breath: (2) End-stage renal disease (ESRD): (3) Aortic stenosis: (4) Diabetes mellitus type 2 with complications: (5) Hyperlipidemia: (6) CAD (coronary artery disease): (7) Chronic diastolic heart failure: (8) History of CVA (cerebrovascular accident): (9) Anemia of chronic disease: (10) Elevated troponin: (11) UTI (urinary tract infection): Plan Pt is a 83 yo female with PMH of afib, CVA (2018), HTN, DM, ESRD on dialysis (T//Sun), aortic stenosis, HFpEF, and HLD presenting to the hospital d/t SOB. Bacteriuria cultures + E. coli and probable enterococcus DC on Augmentin 500mg daily, dose after dialysis on dialysis days Acute on chronic HFpEF - s/p dialysis today, 3.5L dialyzed. + 500mL UOP - repeat BNP am - resume home lasix 80mg BID today - last echo 02/2023; no need to repeat now ESRD - pt follows with Dr. Will outpatient - current dialysis schedule T//Sun - Cr 3.33 upon admission - continue home sevelamer - nephro consulted - Plan for dialysis Th if remains admitted Anemia of chronic disease - s/p 1 unit pRBCs as outpatient - Hgb upon admission 9.8 - continue to monitor Elevated trop - peaked - suspect demand ischemia - trend to peak Aortic stenosis - last echo 02/2023 showed moderate to severe HTN - per pt, she has been taken off many of her BP medications because her BPs were low - continue lasix as above Hx of CVA - continue atorvastatin 10 mg DM - last A1c 02/2023 4.7% - no longer on any medications at home - no need for SSI/glargine at this point Total Time Total Time Spent Total Time Spent (In Minutes): See attending attestation Discharge Plan Discharge Items Patient Disposition: Home - Self-Care Reason For Visit: SOB Discharge Diagnosis: CHF exacerbation Urinary Tract Infection Activity: As commented below Activity Comment: Resume your regular activity as tolerated Non-emergency contact: Primary Care Provider and Design Tech Call non-emergency contact if: you have any medication questions, your symptoms worsen, you have a fever and your rectal temperature is above 100.4 Follow-up/Referrals: Agatha Alfaro DO [Primary Care Provider] - Diet: Dialysis Renal Addtl Attending Provider Instructions: You were admitted to the hospital for shortness of breath. You were treated with diuretics and dialysis to remove extra fluid. While you were here you were found to have a urinary tract infection that was growing two bacteria. In consultation with nephrology, we came up with an antibiotic regimen that should be effective for you. A discharge summary will be sent to your primary care physician to ensure continuity of care. Please bring this discharge summary with you to your next office appointment so that your provider can review it at that time. Medications: Your medication list has been reviewed and reconciled upon discharge to ensure accuracy and continuity of care. An updated list of all your medications is included with your hospital discharge paperwork. Please review this list closely and make note of any changes to your medications. amoxicillin-clavulanate (Augmentin) 500mg once daily. On dialysis days, take dose after recieving dialysis Follow up appointments: - Make a follow up appointment with your PCP within the next week. It is very important that you follow up with them shortly after discharge from the hospital. - Keep all of your follow up appointments as already scheduled. If you cannot make an appointment, notify your provider. CONTACT YOUR PRIMARY CARE PROVIDER if you experience any of the following: - Difficulty following your treatment plan - Difficulty taking any of your medications CALL 911 OR GO TO THE EMERGENCY DEPARTMENT if you experience any of the following: - Shortness of breath. - Sudden, severe abdominal pain or nausea/vomiting - Severe chest pain or chest pain that radiates to your jaw or arm - Sudden, severe shortness of breath or difficulty breathing Pending Studies at Discharge: No Stand-Alone Forms: My [facility] Medications and DC Order Prescriptions: New amoxicillin-pot clavulanate [Augmentin] 500-125 mg tablet 1 tab PO DAILY Qty: 7 0RF Rx Instructions: One tab daily. On dialysis days, take after completing dialysis. Continued (DME) Blood Glucose Test Strip See Rx Instructions .ROUTE .MEDSUPPLY Qty: 100 5RF Rx Instructions: Accucheck perform strips. 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 bethanechol chloride 50 mg tablet 50 mg PO BID Qty: 180 3RF Saccharomyces boulardii [Florastor] 250 mg capsule 250 mg PO BID Qty: 180 3RF (DME) Fitted Briefs X-Large Misc See Rx Instructions .Route Qty: 150 5RF Rx Instructions: using 4-5 per day R19.7 furosemide 80 mg tablet 80 mg PO BID Qty: 180 1RF methocarbamol 500 mg tablet 500 mg PO TID PRN (Reason: muscle spasm) Qty: 90 1RF levothyroxine 150 mcg capsule 150 mcg PO QAM Qty: 90 1RF famotidine 20 mg tablet 20 mg PO BID 90 Days Qty: 180 0RF tramadol 50 mg tablet 50 mg PO BID PRN (Reason: Pain) Qty: 60 0RF atorvastatin [Lipitor] 10 mg tablet 10 mg PO HS Qty: 90 1RF ropinirole 0.5 mg tablet See Rx Instructions .ROUTE .COMPLEX Qty: 120 5RF Rx Instructions: Take 1 tab PO AM, 3 tabs PO QHS; Cavilon Durable Barrier 1.3 % cream 1 applic topical .COMPLEX PRN (Reason: skin irritation) Qty: 92 2RF Rx Instructions: as needed for skin protection cholecalciferol (vitamin D3) [Vitamin D3] 1,000 unit Capsule 2,000 unit PO QAM calcium citrate 200 mg (950 mg) Tablet 400 mg PO QAM loperamide 2 mg Capsule 2 mg PO UD PRN (Reason: Diarrhea) Rx Instructions: administer after each loose stool until symptoms controlled; do not exceed 8 mg per 24 hrs estradiol 0.01 % (0.1 mg/gram) cream 1 applic VAGINAL 3XWK PRN (Reason: ONLY WHEN BURNING) vitamin E 268 mg (400 unit) Capsule 268 mg PO QAM pantoprazole [Protonix] 40 mg tablet,delayed release (DR/EC) 40 mg PO BID Qty: 60 5RF nystatin 100,000 unit/gram powder 1 applic TOPICAL BID PRN (Reason: IRRITATION) cyanocobalamin (vitamin B-12) [Vitamin B-12] 1,000 mcg tablet 1,000 mcg PO QAM sevelamer carbonate 800 mg Tablet 1,600 mg PO BIDWMEAL Rx Instructions: must administer with a meal/food triamcinolone acetonide 0.05 % ointment 1 applic topical BID PRN (Reason: FLARE) Discontinued cephalexin 500 mg capsule 500 mg PO BID 7 Days Qty: 14 0RF Discharge Orders: Discharge Order (Routine); Ordered 03/28/23 Ordered By: Kareem Terrell Admission Data Admit Date/Time: 03/27/23 00:11 Attending Provider: Ronald Mae Admit Provider: Monique Ross Primary Care Provider: Agatha Alfaro Other Providers: Jhon Beck Kevin C. Supervising Physician Co-Signing Physician Notes Attending attestation Pt seen and examined in concert with Dr. Terrell. In agreement with the documented findings as noted in the resident documentation with any exceptions or additions as noted here. Subjective return to respiratory baseline with no further abdominal/urinary symptoms reported. On examination, S1/S2 nl RRR no MCG. CTAB. Abd NT/ND BS+ve UTI - transition to PO augmentin after discussion w/ nephrology to complete course Acute on chronic HFpEF - exacerbation resolved, return to home diuretic regimen and monitor weights ESRD on HD - following / for HD with Dr. Will Else see resident documentation as noted. Total attending physician time spent with this patient's care on the day of discharge: 35 minutes.
[2023-03-28 14:57] VITALS: BP 154/80; RESP 16; TEMP 97.7; O2SAT 99
[2023-03-28 18:06] VITALS: PULSE 82
== END 2023-03-28 18:04 | disposition home or self-care (01) ==
LOC: ED 18:51 → SUATTDRO 03-27 00:11 → INTOOBSV 03-27 00:11 → EDINP 03-27 00:11
DX: I50.33 Acute on chronic diastolic (congestive) heart failure; I48.21 Permanent atrial fibrillation; I13.2 Hypertensive heart and chronic kidney disease with heart failure and with stage 5 chronic kidney disease, or end stage renal disease; Z79.899 Other long term (current) drug therapy; R79.89 Other specified abnormal findings of blood chemistry; D63.8 Anemia in other chronic diseases classified elsewhere; N18.6 End stage renal disease; Z99.2 Dependence on renal dialysis; Z86.73 Personal history of transient ischemic attack (TIA), and cerebral infarction without residual deficits; E11.22 Type 2 diabetes mellitus with diabetic chronic kidney disease; Z82.49 Family history of ischemic heart disease and other diseases of the circulatory system; I35.0 Nonrheumatic aortic (valve) stenosis; Z88.2 Allergy status to sulfonamides; B96.20 Unspecified Escherichia coli [E. coli] as the cause of diseases classified elsewhere; K31.819 Angiodysplasia of stomach and duodenum without bleeding; E78.5 Hyperlipidemia, unspecified; N39.0 Urinary tract infection, site not specified; Z66 Do not resuscitate

== ENCOUNTER 2023-08-25 07:57 | Inpatient (IN) ==
[2023-08-25] MEDS: SODIUM CHLORIDE 0.9% 1,000 ML IV SCH (08:30)
[2023-08-25 09:03] LABS: Basophils # (auto) 0.04 K/uL (0.00-0.20); Basophils % (auto) 0.5 %; Hematocrit (blood only) 35.6 % (37.0-47.0); Hemoglobin 11.3 g/dl (12.0-16.0); Immature Granulocytes # (auto) 0.02 K/uL (0.01-0.20); Immature Granulocytes % (auto) 0.2 %; Lymphocytes # (auto) 0.46 K/uL (1.20-3.40); Lymphocytes % (auto) 5.6 %; Mean Corpuscular Hemoglobin 25.3 pg (25.0-34.0); Mean Corpuscular Hgb Conc 31.7 g/dL (32.0-36.0); Mean Corpuscular Volume 79.8 fL (80.0-100.0); Mean Platelet Volume 11.3 fL (9.4-12.4); Monocytes # (auto) 0.44 K/uL (0.11-0.59); Monocytes % (auto) 5.4 %; Neutrophils # (auto) 7.26 K/uL (1.40-6.50); Neutrophils % (auto) 88.3 %; Platelet Count 189 K/uL (130-400); RDW Coefficient of Variation 16.9 % (11.5-14.5); RDW Standard Deviation 47.8 fL (36.4-46.3); Red Blood Count 4.46 M/uL (4.20-5.40); White Blood Count 8.22 K/ul (4.8-10.8)
[2023-08-25 09:12] LABS: Albumin Level 3.1 gm/dl (3.4-5.0); BUN Creatinine Ratio 10.8 (10-20); Bilirubin Direct 0.2 mg/dl (0-0.2); Bilirubin,Total 0.6 mg/dl (0.2-1.0); Calcium 8.1 mg/dl (8.6-10.3); Creatinine Clr Calc Pharmacy 6.9 ml/min; Est GFR (African American) 9.3 ml/min; Potassium 3.5 mmol/L (3.5-5.1)
--- NOTE | 2023-08-25 09:12 | Emergency Department Note ---
Impression & Plan UTI (urinary tract infection), ESRD on dialysis, Encephalopathy ED Provider Note NAME: NIURKA QUIÑONES AGE: 83 SEX: F : 1940 ARRIVES VIA: Ambulance INFORMANT: Patient, ED PROVIDER(S): Neelam Guillen MD CHIEF COMPLAINT: Confusion, fever HPI: This is an 83-year-old female who is ESRD, dialysis dependent presenting for confusion and fever. Patient was supposed to go to dialysis this morning when the driver trainee came and noticed that she was confused, diaphoretic, lethargic. Patient was requiring oxygen on the way here in order to maintain oxygen saturation above 90%. She reports no current symptoms just feeling weak. She is currently alert, oriented does not to place. She is slow to respond and cannot have much information at this time. ROS: Unable to obtain PHYSICAL EXAMINATION: General: Slumped over, awake, warm Head: Normocephalic and atraumatic Eyes: Normal inspection, extraocular muscles intact Ear, nose, throat: Normal external exam Neck: Normal range of motion Respiratory: lungs clear to auscultation bilaterally Cardiovascular: Regular rate/rhythm, no murmur GI: soft, nontender, no guarding or rebound Extremities: nontender, moves all extremities Neuro: The patient awake and alert, appropriately conversive, no focal deficits, symmetric faces Skin: Warm, dry, and intact MEDICAL DECISION MAKING: This is an 83-year-old female presenting for confusion/fever. Will do chest x- ray, blood cultures, basic blood work, urinalysis. Patient does have a dialysis port, with cultures office as well. Consider viral infection as well will get upper respiratory panel. -Blood work is reviewed without leukocytosis, slight anemia of 11.3 is noted. Otherwise no some electrolyte disturbances. -Troponin is elevated as well without current chest pain. -Procalcitonin is elevated at this time -Chest x-ray as independent interpreted by me reveals cardiomegaly and bilateral pleural effusions -Patient is ESRD and has a creatinine of 4.64. -Urinalysis reveals signs of UTI at this time. patient given ceftriaxone/doxycycline at this time -Nephrology was in the hospital and unable to do dialysis during business hours. Patient be admitted but will get dialysis during her stay today. -Discussed care that her Dr Sue/PATRIZIA Solano PA-C Differential diagnosis: UTI, sepsis, bacteremia ER treatment provided: See below Diagnostics interpreted by me: ECG: ECG independently interpreted by me with Mobitz type I, ventricular rate 84, left axis deviation with right bundle branch block, normal QTc, no ST segment elevations consistent with STEMI criteria Cardiac Monitoring: An order was placed for continuous cardiac monitoring. The monitor shows a rate of 67 with sinus. Laboratory studies: As stated above and show below. Imaging studies: See below. Past Med/Surg History Problem List (Updated 08/25/23 @ 15:33 by Neelam Guillen MD) Encephalopathy (Acute) ESRD on dialysis (Acute) UTI (urinary tract infection) (Acute) Lower extremity cellulitis Elevated troponin Acute UTI Hypoxia Right wrist pain Generalized weakness (Acute) Pleural effusion, bilateral Ascites Fatigue End-stage renal disease (ESRD) Aortic stenosis 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 Palliative care by specialist Pancytopenia Clostridioides difficile carrier ESRD (end stage renal disease) on dialysis (Acute) Vitamin D deficiency (Chronic) Recurrent urinary tract infection 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 aguirre Osteoarthritis Hyperlipidemia History of CVA (cerebrovascular accident) (2019) ~5years ago, woke up with weakness in her rt hand; L lacunar infarct; previously on plavix>no residual effects Hiatal hernia GERD without esophagitis Fatty liver Essential tremor MINOR IN HAND Diabetic retinopathy Chronic hyponatremia Chronic diastolic heart failure CAD (coronary artery disease) Anxiety Anemia of chronic disease GAVE (gastric antral vascular ectasia) (Acute) Medical History Elevated brain natriuretic peptide (BNP) level Elevated troponin I level Pericardial effusion Pleural effusion Elevated brain natriuretic peptide (BNP) level Non-ST elevation [place] (NSTEMI) Pancytopenia Atrial fibrillation and flutter Hemorrhoids History of recent hospitalization GI BLEED/LOW BLOOD COUNT/HX BLOOD TRANSFUSION - MAY 2022 - [facility] ESRD on hemodialysis tuesdays, , and saturdays currently Poor historian History of GI bleed hx 08/2021, given transfusion-per medical record REASON FOR UPCOMING PROCEDURE Hx of atrial fibrillation, no current medication per medical report History of renal dialysis [facility]AC[facility] AND [place] ([facility] [place]/ACROSS FROM [facility]) ACCESS SITE RIGHT SIDE OF CHEST/ ? DETAILS Resistant hypertension Diabetes mellitus, type 2 Hearing deficit no hearing aids Urinary urgency Secondary hyperparathyroidism of renal origin First degree AV block Hypertension Hypothyroidism Surgical History History of esophagogastroduodenoscopy (EGD) multiple---last 08/01/2022 @ [facility] 04/06/22 at [facility] with Dr. Mich Pacheco- EGD- Gastric antral vascular ectasia with bleeding, treated with argon plasma coagulation (APC); Few angioectasias in the duodenum, treated with APC S/P pericardiocentesis 08/2021, [facility], w/dr moura Hx of cardiac catheterization 08/2021, [facility] w/Dr. Moura for increased cardiac pressures; no stents History of tooth extraction History of colonoscopy H/O varicose vein ligation S/P trigger finger release S/P knee replacement RT/LEFT History of bladder suspension procedure X 2 S/P carpal tunnel release RT/LEFT History of back surgery (04/2010) X 2 S/P hysterectomy [place] Family History Father Alcohol abuse Heart disease Myocardial infarction Hypertension Sister Pancreatic cancer Diabetes Breast cancer Brother Diabetes Alcohol abuse Stroke Other Cancer No family history of adverse response to anesthesia Denies family history of Ovarian cancer Prostate cancer Colorectal cancer Social History Smoking Status: Never smoker Second Hand Exposure: No; Do You Dip or Chew Tobacco: No; Hx Alcohol Use: No Hx Substance Use: No Preferred Language: French Communication Ability: Effective Visual Impairment: No Limitations Hearing Ability: Normal Entry Level Sales Consultant Required: No Beliefs That Will Affect Care: None marital status: Single Current Living Situation: Family Current Living Situation Comment: Lives with daughter current occupational status: retired How many Children do You have: 2 Feels Safe at Home: Yes Childhood Exposure to Second-Hand Smoke: No Diet: regular Diet Comment: regular caffeine: Yes (Coffee x 2 cups per day.) during the past year weight has: remained stable Dental Care, Regularly: No Physical Activity Frequency: Does not Exercise Seatbelt Use: always Sunscreen Use: Yes Assistive Devices: Walker Allergies Allergies Allergy/AdvReac Type Severity Reaction Status Date / Time sulfamethoxazole AdvReac Unknown REMOTE Verified 08/15/23 10:56 [From Bactrim] HX/PT NOT SURE REACTION trimethoprim [From Bactrim] AdvReac Unknown REMOTE Verified 08/15/23 10:56 HX/PT NOT SURE REACTION Home Meds Home Medications Medication Instructions Recorded Confirmed cholecalciferol (vitamin D3) 25 2,000 unit PO QAM 05/29/18 08/25/23 mcg (1,000 unit) capsule (Vitamin D3) cyanocobalamin (vitamin B-12) 1,000 mcg PO QAM 11/12/20 08/25/23 1,000 mcg tablet (Vitamin B-12) loperamide 2 mg capsule 2 mg PO UD PRN Diarrhea 05/29/22 08/25/23 estradiol 0.01% (0.1 mg/gram) 1 applic vaginal 3XWK PRN ONLY 05/30/22 08/25/23 vaginal cream WHEN BURNING nystatin 100,000 unit/gram topical 1 applic topical BID PRN IRRITATION 07/10/22 08/25/23 powder calcium acetate 667 mg tablet 667 mg PO TID 07/06/23 08/25/23 calcium carbonate 600 mg-vitamin 1 tab PO DAILY 07/23/23 08/25/23 D3 10 mcg (400 unit) tablet (Calcium 600 + D(3)) omega-3 fatty acids 1,000 mg 1,000 mg PO DAILY 07/23/23 08/25/23 capsule dimethicone 1.3 % topical cream 1 applic topical DAILY PRN skin 08/25/23 08/25/23 (Cavilon Durable Barrier) irritation ropinirole 0.5 mg tablet 0.5 mg PO UD 08/25/23 08/25/23 Previous Rx's Medication Instructions Recorded bethanechol chloride 50 mg tablet 50 mg PO BID #180 tabs 04/19/21 diaper,brief,adult,disposable #150 ea 12/07/21 (Fitted Briefs X-Large) levothyroxine 150 mcg capsule 150 mcg PO QAM #90 caps 01/23/23 furosemide 80 mg tablet 80 mg PO BID #180 tabs 05/28/23 pantoprazole 40 mg tablet,delayed 40 mg PO BID #60 tabs 06/27/23 release (Protonix) triamcinolone acetonide 0.5 % 1 applic topical BID PRN skin 07/03/23 topical cream irritation #60 grams famotidine 40 mg tablet 40 mg PO BID #60 tabs 07/06/23 sertraline 50 mg tablet 50 mg PO DAILY #30 tabs 07/09/23 methocarbamol 500 mg tablet 500 mg PO TID PRN muscle spasm #90 07/23/23 tabs fluticasone propionate 50 1 spray intranasal DAILY #16 grams 08/16/23 mcg/actuation nasal spray,suspension (Flonase Allergy Relief) atorvastatin 10 mg tablet (Lipitor) 10 mg PO HS #90 tabs 08/20/23 tramadol 50 mg tablet 50 mg PO BID PRN Pain #60 tabs 08/20/23 Results & Data (ED) Vital Signs Vital Signs - 24 hr 08/25/23 08:10 08/25/23 08:10 08/25/23 08:10 Temperature 37.9 C H Temperature Source Oral Pulse Rate 85 75 Pulse Rate [Apical] Pulse Rate [Right Brachial] Pulse Rhythm Irregular Irregular Pulse Rhythm [Apical] Pulse Rhythm [Right Brachial] Pulse Strength Normal Pulse Strength [Apical] Pulse Strength [Right Brachial] Respiratory Rate 20 20 18 Respiratory Effort / Characteristics Non-Labored Non-Labored Respiratory Depth Normal Normal Blood Pressure - Lying Blood Pressure 126/68 Blood Pressure [Right Arm] Blood Pressure Mean 87 Blood Pressure Mean [Right Arm] Blood Pressure Position Lying Blood Pressure Position [Right Arm] Pulse Oximetry 90 90 Oxygen Delivery Method Room Air Room Air Oxygen Flow Rate Sepsis Recent Fever Within 48 Hours Yes Sepsis New/Unexplained Change in Mental Status Yes Sepsis Action Taken by Nursing No Action Required Oxygen Flow Rate - Titration Pulse Oximetry Post Tiitration 08/25/23 08:10 08/25/23 08:16 08/25/23 09:07 Temperature Temperature Source Pulse Rate 82 Pulse Rate [Apical] 72 Pulse Rate [Right Brachial] Pulse Rhythm Pulse Rhythm [Apical] Irregular Pulse Rhythm [Right Brachial] Pulse Strength Pulse Strength [Apical] Pulse Strength [Right Brachial] Respiratory Rate 18 Respiratory Effort / Characteristics Non-Labored Respiratory Depth Normal Blood Pressure - Lying Blood Pressure Blood Pressure [Right Arm] 120/67 Blood Pressure Mean Blood Pressure Mean [Right Arm] 84 Blood Pressure Position Blood Pressure Position [Right Arm] Pulse Oximetry 89 L 99 Oxygen Delivery Method Room Air Nasal Cannula Oxygen Flow Rate 2 Sepsis Recent Fever Within 48 Hours Sepsis New/Unexplained Change in Mental Status Sepsis Action Taken by Nursing Oxygen Flow Rate - Titration 2 Pulse Oximetry Post Tiitration 96 08/25/23 09:37 08/25/23 09:48 08/25/23 10:15 Temperature Temperature Source Pulse Rate Pulse Rate [Apical] 75 68 75 Pulse Rate [Right Brachial] Pulse Rhythm Pulse Rhythm [Apical] Irregular Irregular Irregular Pulse Rhythm [Right Brachial] Pulse Strength Pulse Strength [Apical] Normal Pulse Strength [Right Brachial] Respiratory Rate 18 18 18 Respiratory Effort / Characteristics Non-Labored Non-Labored Non-Labored Respiratory Depth Normal Normal Normal Blood Pressure - Lying Blood Pressure Blood Pressure [Right Arm] 116/58 L 116/58 L 111/58 L Blood Pressure Mean Blood Pressure Mean [Right Arm] 77 77 75 Blood Pressure Position Blood Pressure Position [Right Arm] Lying Lying Pulse Oximetry 97 99 97 Oxygen Delivery Method Nasal Cannula Nasal Cannula Nasal Cannula Oxygen Flow Rate 2 2 2 Sepsis Recent Fever Within 48 Hours Sepsis New/Unexplained Change in Mental Status Sepsis Action Taken by Nursing Oxygen Flow Rate - Titration Pulse Oximetry Post Tiitration 08/25/23 11:04 08/25/23 11:25 08/25/23 11:31 Temperature 37.6 C H Temperature Source Oral Pulse Rate 76 Pulse Rate [Apical] 66 Pulse Rate [Right Brachial] 76 Pulse Rhythm Pulse Rhythm [Apical] Pulse Rhythm [Right Brachial] Regular Pulse Strength Pulse Strength [Apical] Pulse Strength [Right Brachial] Normal Respiratory Rate 20 Respiratory Effort / Characteristics Respiratory Depth Normal Blood Pressure - Lying 110/51 L Blood Pressure 110/53 L Blood Pressure [Right Arm] 110/53 L Blood Pressure Mean Blood Pressure Mean [Right Arm] 72 Blood Pressure Position Lying Blood Pressure Position [Right Arm] Pulse Oximetry 97 Oxygen Delivery Method Nasal Cannula Oxygen Flow Rate 2 Sepsis Recent Fever Within 48 Hours Sepsis New/Unexplained Change in Mental Status Sepsis Action Taken by Nursing Oxygen Flow Rate - Titration Pulse Oximetry Post Tiitration Laboratory Data 08/25/23 08:28 08/25/23 08:28 Lab Results 08/25/23 08/25/23 Range/Units 08:28 10:46 WBC 8.22 (4.8-10.8) K/ul RBC 4.46 (4.20-5.40) M/uL Hgb 11.3 L (12.0-16.0) g/dl Hct 35.6 L (37.0-47.0) % MCV 79.8 L (80.0-100.0) fL MCH 25.3 (25.0-34.0) pg MCHC 31.7 L (32.0-36.0) g/dL RDW Std Deviation 47.8 H (36.4-46.3) fL RDW Coeff of Irasema 16.9 H (11.5-14.5) % Plt Count 189 (130-400) K/uL MPV 11.3 (9.4-12.4) fL Immature Gran % (Auto) 0.2 % Neut % (Auto) 88.3 % Lymph % (Auto) 5.6 % [place] % (Auto) 5.4 % Eos % (Auto) 0.0 % Baso % (Auto) 0.5 % Neut # (Auto) 7.26 H (1.40-6.50) K/uL Lymph # (Auto) 0.46 L (1.20-3.40) K/uL [place] # (Auto) 0.44 (0.11-0.59) K/uL Eos # (Auto) 0.00 (0.00-0.50) K/uL Baso # (Auto) 0.04 (0.00-0.20) K/uL Immature Gran # (Auto) 0.02 (0.01-0.20) K/uL ESR 32 H (0-30) mm/hr Sodium 141 (136-145) mmol/L Potassium 3.5 (3.5-5.1) mmol/L Chloride 101 (98-107) mmol/L Carbon Dioxide 29 (21-32) mmol/L Anion Gap 11 (3-11) BUN 50 H (6-23) mg/dl Creatinine 4.64 H* (0.6-1.2) mg/dl Est Cr Clr Drug Dosing 6.9 ml/min Est GFR ( Amer) 9.3 ml/min Est GFR (Non-Af Amer) 8.0 ml/min BUN/Creatinine Ratio 10.8 (10-20) Glucose 130 H (70-99(Fasting)) mg/dl Lactate 1.3 (0.4-2.0) mmol/L Calcium 8.1 L (8.6-10.3) mg/dl Magnesium 2.0 (1.7-2.4) mg/dl Total Bilirubin 0.6 (0.2-1.0) mg/dl Direct Bilirubin 0.2 (0-0.2) mg/dl AST 17 (13-39) U/L ALT 7 (7-52) U/L Alkaline Phosphatase 191 H (34-104) U/L Troponin I High Sens 87.1 H* 94.4 H* (0-14) pg/ml C-Reactive Protein 2.80 H (0-0.5) mg/dl Total Protein 6.0 (6.0-8.3) gm/dl Albumin 3.1 L (3.4-5.0) gm/dl Procalcitonin 0.63 H (0-0.5) ng/ml Administered Medications Discontinued Medications Sodium Chloride (Nss) 1,000 mls @ 999 mls/hr IV .Q1H1M [place] Stop: 08/25/23 09:30 Last Infusion: 08/25/23 09:32 Dose: Infused Documented By: Admin: 08/25/23 08:30 Dose: 999 mls/hr Documented By: EDGAR Ceftriaxone Sodium (Rocephin) 2,000 mg in 50 mls @ 100 mls/hr IV NOW STA Stop: 08/25/23 09:50 Last Infusion: 08/25/23 10:05 Dose: Infused Documented By: Admin: 08/25/23 09:29 Dose: 100 mls/hr Documented By: ROGER Doxycycline Hyclate 100 mg/ (Dextrose) 100 mls @ 50 mls/hr IV NOW STA Stop: 08/25/23 11:20 Last Infusion: 08/25/23 13:27 Dose: Infused Documented By: Admin: 08/25/23 09:40 Dose: 50 mls/hr Documented By: ROGER Potassium Chloride (Potassium Chloride Crtab 20 Meq Tabcr) 20 meq PO NOW STA Stop: 08/25/23 11:02 Last Admin: 08/25/23 11:15 Dose: 20 meq Documented By: EDGAR Imaging Data Radiologist's Impression: Chest X-Ray 08/25/23 08:28 SINGLE VIEW CHEST CLINICAL HISTORY: Sepsis. FINDINGS: An AP, portable, upright chest radiograph is compared to study dated 07/23/2023. The heart is enlarged noting atherosclerotic calcification of the thoracic aorta. There is pulmonary vascular congestion. Enlargement of the central pulmonary arteries suggests pulmonary artery hypertension. There are left larger than right pleural effusions with dependent consolidation. No pneumothorax is seen. The skeletal structures are osteopenic. Advanced arthritic change is noted in the shoulders. The bony thorax is grossly intact. Fusion hardware is seen at the thoracolumbar junction. IMPRESSION: 1. Cardiomegaly with pulmonary vascular congestion. 2. Left larger than right pleural effusions with dependent consolidation. These are similar to previous. ACT 112: Negative or not required by law. Electronically signed by: Eulogio Gaspar M.D. 08/25/2023 9:54 AM Discharge Plan Visit Data Chief Complaint: Lethargic Stated Complaint: LETHARGIC, ALOC, WEAKNESS, FEVER ED Provider: Neelam Guillen Discharge Problem: UTI (urinary tract infection), ESRD on dialysis, Encephalopathy
[2023-08-25 09:17] LABS: Appearance Urine Cloudy (Clear); Bacteria Urine Automated None Seen (None Seen); Bilirubin Urine Negative (Negative); Blood Urine 2+ (Negative); Cast Urine Automated 0-2 /lpf (0-2); Color Urine Dark Yellow; Epithelial Cell Urine Auto 0-2 /hpf (0-2); Glucose Urine UA Trace (Negative); Ketones Urine Trace (Negative); Leukocyte Esterase Urine 2+ (Negative); Nitrite Urine Negative (Negative); Protein Urine 3+ (Negative); Specific Gravity Urine 1.016 (1.000-1.030); Urobilinogen Urine Negative (Negative); WBC Urine Automated >50 /hpf (0-5)
[2023-08-25 09:17] LABS: Troponin I High Sensitivity 87.1 pg/ml (0-14)
[2023-08-25] MEDS: cefTRIAXone SODIUM 2,000 MG/50 ML BAG IV STA (09:29)
[2023-08-25] MEDS: DOXYCYCLINE HYCLATE 100 MG in DEXTROSE 5% MINI-B 100 ML IV STA (09:40)
--- NOTE | 2023-08-25 09:55 | XRay Report ---
SINGLE VIEW CHEST CLINICAL HISTORY: Sepsis. FINDINGS: An AP, portable, upright chest radiograph is compared to study dated 07/23/2023. The heart i s enlarged noting atherosclerotic calcification of the thoracic aorta. There is pulmonary vascular co ngestion. Enlargement of the central pulmonary arteries suggests pulmonary artery hypertension. There are left larger than right pleural effusions with dependent consolidation. No pneumothorax is seen. The skeletal structures are osteopenic. Advanced arthritic change is noted in the shoulders. The bony thorax is grossly intact. Fusion hardware is seen at the thoracolumbar junction. IMPRESSION: 1. Cardiomegaly with pulmonary vascular congestion. 2. Left larger than right pleural effusions with dependent consolidation. These are similar to previo us. ACT 112: Negative or not required by law. Electronically signed by: Eulogio Gaspar M.D. 08/25/2023 9:54 AM
--- NOTE | 2023-08-25 11:06 | History & Physical Report ---
Date of Service August 25, 2023 Assessment & Plan (1) Acute UTI: Plan: Acute onset of fever, lethargy, and confusion the morning of 08/24 No leukocytosis, but she is slightly higher than her baseline and febrile at 37.9 C UA positive on arrival Johnson catheter placed in the ED; Daily Johnson catheter care Review of most recent urine cultures revealed E. coli (with some resistance), Enterococcus faecalis (03/25/2023), and Pseudomonas (02/15/2023) Daptomycin 15mg/kg IV q24h Zosyn 4.5 g IV q8h A.m. CBC, BMP, CRP, mag (2) Elevated troponin: Plan: Troponin elevated to 87.1-->94.4 on arrival Clinically patient denies chest pain/pressure Suspect demand ischemia and poor troponin clearance by the kidneys Continuous telemetry monitoring Trend troponin q6h to peak (3) Hypoxia: Plan: Patient is not on supplemental oxygen at baseline Per daughter, she was having some difficulty breathing this morning CXR revealed cardiomegaly with pulmonary vascular congestion; L>R pleural effusions DDx does include PNA at this time; antibiotics (as above) Procalcitonin mildly elevated at 0.63 Sputum culture ordered, pending Continue Lasix Supplemental oxygen as needed to maintain SpO2 greater than 94% Continuous pulse oximetry (4) Lower extremity cellulitis: Plan: New onset erythema of the lower extremities (L>R); warm to touch ESR and CRP ordered, pending Bilateral lower extremity Dopplers ordered, pending MRSA swab ordered, pending Follow blood cultures Daptomycin (as above); hold statin (5) ESRD (end stage renal disease) on dialysis: Plan: HD on Sunday//Sunday Nephrology consulted for inpatient dialysis (6) (HFpEF) heart failure with preserved ejection fraction: Plan: Last echo on 02/15/2023 revealed LVEF >70% and severe aortic stenosis Continue Lasix 80mg BID (7) Aortic stenosis: (8) 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: (9) RBBB: (10) CAD (coronary artery disease): (11) GAVE (gastric antral vascular ectasia): (12) Anemia of chronic disease: (13) Pleural effusion, bilateral: Plan Disposition: Admit to PCU telemetry DNR/DNI Dialysis/renal diet VTE PPx: Hold chemical DVT PPx in the setting of GAVE/anemia; will hold mechanical DVT PPx for now given warm, erythematous lower extremities (Dopplers ordered, pending) History of Present Illness Chief Complaint: Lethargic, confusion, fever Primary Care Provider: Agatha Alfaro DO Sully is an 83-year-old female with PMH of ESRD on dialysis (//Sun), severe aortic stenosis, Mobitz type I second-degree AV block, palliative care, T2DM, gastroparesis, neurogenic bladder, cirrhosis, HFpEF, CAD, GAVE, anxiety, and CVA. She presented via EMS on 08/24 for lethargy, confusion, and fever. Patient had a spotter driver arrive this morning to transport her to dialysis, but she did not open the door like she usually does. Patient's daughter was called. Patient's daughter is at bedside and provides additional history. She reports that she does not live with her mother, and that she left the house around 7 PM the night before and the patient was fine. When she returned around 7:30 AM this morning, the patient's eyes were glassy and she was febrile. She usually gets up and goes to dialysis on her own, but not today. Patient's daughter reports that she could not get up or walk today. Patient was also "breathing fast" at rest. She is still producing urine, but not so much. The urine has been dark brown since last night. Patient is below her dry weight, and daughter reports that she has not been eating as much recently. Daughter also reports a new erythema on her lower extremities bilaterally, which she had not noticed before. Patient is not currently on blood thinners. She did not take her regular morning medication today. No recent change medications besides Tradjenta. She is not on supplemental oxygen at baseline. No CPAP at night. No sick contacts to her knowledge. She denies smoking, tobacco use, and recent alcohol use. Patient is febrile at 37.9 C at time admission; SpO2 97% on 2 L NC. ED course: Doxycycline 100 mg IV Ceftriaxone 2000 mg IV Potassium chloride 20mEq p.o. NSS 1000 mL IV ROS: Patient endorses fever, lethargy, SOB at rest, wheezing this morning, productive cough (green/creamy yellow sputum production; which is normal for her when she wakes up), and chronic loose stool/diarrhea (takes immodium). Patient denies chills, night-sweats, dizziness, lightheadedness, MURILLO, rashes, tick bites, chest pain, chest palpitation, hemoptysis, pleuritic CP, abdominal pain, N/V, dysuria, burning with urination, or pain/numbness/tingling in the arms or legs. Allergies Allergy/AdvReac Type Severity Reaction Status Date / Time sulfamethoxazole AdvReac Unknown REMOTE Verified 08/15/23 10:56 [From Bactrim] HX/PT NOT SURE REACTION trimethoprim [From Bactrim] AdvReac Unknown REMOTE Verified 08/15/23 10:56 HX/PT NOT SURE REACTION Home Medications Medication Instructions Recorded Confirmed Type cholecalciferol (vitamin D3) 25 2,000 unit PO QAM 05/29/18 08/25/23 History mcg (1,000 unit) capsule (Vitamin D3) cyanocobalamin (vitamin B-12) 1,000 mcg PO QAM 11/12/20 08/25/23 History 1,000 mcg tablet (Vitamin B-12) bethanechol chloride 50 mg tablet 50 mg PO BID #180 tabs 04/19/21 08/25/23 Rx diaper,brief,adult,disposable #150 ea 12/07/21 08/15/23 Rx (Fitted Briefs X-Large) loperamide 2 mg capsule 2 mg PO UD PRN Diarrhea 05/29/22 08/25/23 History estradiol 0.01% (0.1 mg/gram) 1 applic vaginal 3XWK PRN ONLY 05/30/22 08/25/23 History vaginal cream WHEN BURNING nystatin 100,000 unit/gram topical 1 applic topical BID PRN IRRITATION 07/10/22 08/25/23 History powder levothyroxine 150 mcg capsule 150 mcg PO QAM #90 caps 01/23/23 08/25/23 Rx furosemide 80 mg tablet 80 mg PO BID #180 tabs 05/28/23 08/25/23 Rx pantoprazole 40 mg tablet,delayed 40 mg PO BID #60 tabs 06/27/23 08/25/23 Rx release (Protonix) triamcinolone acetonide 0.5 % 1 applic topical BID PRN skin 07/03/23 08/25/23 Rx topical cream irritation #60 grams calcium acetate 667 mg tablet 667 mg PO TID 07/06/23 08/25/23 History famotidine 40 mg tablet 40 mg PO BID #60 tabs 07/06/23 08/25/23 Rx sertraline 50 mg tablet 50 mg PO DAILY #30 tabs 07/09/23 08/25/23 Rx calcium carbonate 600 mg-vitamin 1 tab PO DAILY 07/23/23 08/25/23 History D3 10 mcg (400 unit) tablet (Calcium 600 + D(3)) methocarbamol 500 mg tablet 500 mg PO TID PRN muscle spasm #90 07/23/23 08/25/23 Rx tabs omega-3 fatty acids 1,000 mg 1,000 mg PO DAILY 07/23/23 08/25/23 History capsule fluticasone propionate 50 1 spray intranasal DAILY #16 grams 08/16/23 08/25/23 Rx mcg/actuation nasal spray,suspension (Flonase Allergy Relief) atorvastatin 10 mg tablet (Lipitor) 10 mg PO HS #90 tabs 08/20/23 08/25/23 Rx tramadol 50 mg tablet 50 mg PO BID PRN Pain #60 tabs 08/20/23 08/25/23 Rx dimethicone 1.3 % topical cream 1 applic topical DAILY PRN skin 08/25/23 08/25/23 History (Cavilon Durable Barrier) irritation ropinirole 0.5 mg tablet 0.5 mg PO UD 08/25/23 08/25/23 History Past Med/Surg History Problem List (Updated 08/25/23 @ 15:33 by Neelam Guillen MD) Encephalopathy (Acute) ESRD on dialysis (Acute) UTI (urinary tract infection) (Acute) Lower extremity cellulitis Elevated troponin Acute UTI Hypoxia Right wrist pain Generalized weakness (Acute) Pleural effusion, bilateral Ascites Fatigue End-stage renal disease (ESRD) Aortic stenosis 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 Palliative care by specialist Pancytopenia Clostridioides difficile carrier ESRD (end stage renal disease) on dialysis (Acute) Vitamin D deficiency (Chronic) Recurrent urinary tract infection 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 aguirre Osteoarthritis Hyperlipidemia History of CVA (cerebrovascular accident) (2019) ~5years ago, woke up with weakness in her rt hand; L lacunar infarct; previously on plavix>no residual effects Hiatal hernia GERD without esophagitis Fatty liver Essential tremor MINOR IN HAND Diabetic retinopathy Chronic hyponatremia Chronic diastolic heart failure CAD (coronary artery disease) Anxiety Anemia of chronic disease GAVE (gastric antral vascular ectasia) (Acute) Medical History Elevated brain natriuretic peptide (BNP) level Elevated troponin I level Pericardial effusion Pleural effusion Elevated brain natriuretic peptide (BNP) level Non-ST elevation AL (NSTEMI) Pancytopenia Atrial fibrillation and flutter Hemorrhoids History of recent hospitalization GI BLEED/LOW BLOOD COUNT/HX BLOOD TRANSFUSION - MAY 2022 - [facility] ESRD on hemodialysis tuesdays, , and saturdays currently Poor historian History of GI bleed hx 08/2021, given transfusion-per medical record REASON FOR UPCOMING PROCEDURE Hx of atrial fibrillation, no current medication per medical report History of renal dialysis , AND SAT ([facility]CROSS FROM [facility]) ACCESS SITE RIGHT SIDE OF CHEST/ ? DETAILS Resistant hypertension Diabetes mellitus, type 2 Hearing deficit no hearing aids Urinary urgency Secondary hyperparathyroidism of renal origin First degree AV block Hypertension Hypothyroidism Surgical History History of esophagogastroduodenoscopy (EGD) multiple---last 08/01/2022 @ [facility] 04/06/22 at [facility] with Dr. Mich Pacheco- EGD- Gastric antral vascular ectasia with bleeding, treated with argon plasma coagulation (APC); Few angioectasias in the duodenum, treated with APC S/P pericardiocentesis 08/2021, [facility], w/dr moura Hx of cardiac catheterization 08/2021, [facility] w/Dr. Moura for increased cardiac pressures; no stents History of tooth extraction History of colonoscopy H/O varicose vein ligation S/P trigger finger release S/P knee replacement RT/LEFT History of bladder suspension procedure X 2 S/P carpal tunnel release RT/LEFT History of back surgery (04/2010) X 2 S/P hysterectomy [place] Family History Father Alcohol abuse Heart disease Myocardial infarction Hypertension Sister Pancreatic cancer Diabetes Breast cancer Brother Diabetes Alcohol abuse Stroke Other Cancer No family history of adverse response to anesthesia Denies family history of Ovarian cancer Prostate cancer Colorectal cancer Social History Smoking Status: Never smoker Second Hand Exposure: No; Do You Dip or Chew Tobacco: No; Hx Alcohol Use: No Hx Substance Use: No Preferred Language: Romanian Communication Ability: Effective Visual Impairment: No Limitations Hearing Ability: Normal Cnc Machine Setter Required: No Beliefs That Will Affect Care: None marital status: Single Current Living Situation: Family Current Living Situation Comment: Lives with daughter current occupational status: retired How many Children do You have: 2 Feels Safe at Home: Yes Childhood Exposure to Second-Hand Smoke: No Diet: regular Diet Comment: regular caffeine: Yes (Coffee x 2 cups per day.) during the past year weight has: remained stable Dental Care, Regularly: No Physical Activity Frequency: Does not Exercise Seatbelt Use: always Sunscreen Use: Yes Assistive Devices: Walker Review of Systems Review of Systems: See HPI above Physical Exam Physical Exam: General: no acute distress; lethargic; non-toxic appearing; cooperative; 97% SpO2 on 2L NC HEENT: normocephalic, atraumatic; no scleral icterus; PERRLA; dry mucus membrane; vision intact; hard of hearing Neck: supple; no lymphadenopathy; trachea midline Skin: Warm to touch; dry without signs of tenting; no cyanosis; no rashes, bruising, or lesions noted CV: chest wall NTP; port on the right upper chest wall without signs of erythema, drainage, or infection; RRR; S1/S2 normal; 5/6 systolic ejection murmur auscultated at the second ICS MCL; pulses intact and symmetric at radial, DP, and PT Lungs: no acute respiratory distress; symmetrical chest wall expansion; clear breath sounds across all lung phan w/o adventitious sounds; no wheezing ABD: Soft, NTP; BS present; no rebound/guarding; no distention MSK: no tics or fasciculations; +1 pitting edema in the lower extremities bilaterally, erythematous and warm to touch (left worse than right); nonpurulent Neuro: A&Ox3; normal mood and affect; fluent speech; no focal deficits; sensation grossly intact in the LEs b/l Results & Data Results & Data Vital Signs (Past 12 Hours) Vital Signs Temp Pulse Pulse Resp BP BP Pulse Ox 08/25/23 11:04 66 20 110/53 L 97 08/25/23 10:15 75 18 111/58 L 97 08/25/23 09:48 68 18 116/58 L 99 08/25/23 09:37 75 18 116/58 L 97 08/25/23 09:07 72 18 120/67 99 08/25/23 08:16 82 08/25/23 08:10 89 L 08/25/23 08:10 18 08/25/23 08:10 75 20 90 08/25/23 08:10 37.9 C H 85 20 126/68 90 O2 Del Method O2 Flow Rate 08/25/23 11:04 Nasal Cannula 2 08/25/23 10:15 Nasal Cannula 2 08/25/23 09:48 Nasal Cannula 2 08/25/23 09:37 Nasal Cannula 2 08/25/23 09:07 Nasal Cannula 2 08/25/23 08:16 08/25/23 08:10 Room Air 08/25/23 08:10 08/25/23 08:10 Room Air 08/25/23 08:10 Room Air Laboratory Results Abnormal lab results 08/25/23 08/25/23 Range/Units 08:28 Unknown Hgb 11.3 L (12.0-16.0) g/dl Hct 35.6 L (37.0-47.0) % MCV 79.8 L (80.0-100.0) fL MCHC 31.7 L (32.0-36.0) g/dL RDW Std Deviation 47.8 H (36.4-46.3) fL RDW Coeff of Irasema 16.9 H (11.5-14.5) % Neut # (Auto) 7.26 H (1.40-6.50) K/uL Lymph # (Auto) 0.46 L (1.20-3.40) K/uL BUN 50 H (6-23) mg/dl Creatinine 4.64 H* (0.6-1.2) mg/dl Glucose 130 H (70-99(Fasting)) mg/dl Calcium 8.1 L (8.6-10.3) mg/dl Alkaline Phosphatase 191 H (34-104) U/L Troponin I High Sens 87.1 H* (0-14) pg/ml Albumin 3.1 L (3.4-5.0) gm/dl Procalcitonin 0.63 H (0-0.5) ng/ml Urine Appearance Cloudy A (Clear) Urine Protein 3+ H (Negative) Urine Glucose (UA) Trace H (Negative) Urine Ketones Trace H (Negative) Urine Blood 2+ H (Negative) Ur Leukocyte Esterase 2+ H (Negative) Urine WBC (Auto) >50 H (0-5) /hpf Urine RBC (Auto) 3-5 H (0-2) /hpf Diagnostic Findings Chest X-Ray 08/25/23 08:28 SINGLE VIEW CHEST CLINICAL HISTORY: Sepsis. FINDINGS: An AP, portable, upright chest radiograph is compared to study dated 07/23/2023. The heart is enlarged noting atherosclerotic calcification of the thoracic aorta. There is pulmonary vascular congestion. Enlargement of the central pulmonary arteries suggests pulmonary artery hypertension. There are left larger than right pleural effusions with dependent consolidation. No pneumothorax is seen. The skeletal structures are osteopenic. Advanced arthritic change is noted in the shoulders. The bony thorax is grossly intact. Fusion hardware is seen at the thoracolumbar junction. IMPRESSION: 1. Cardiomegaly with pulmonary vascular congestion. 2. Left larger than right pleural effusions with dependent consolidation. These are similar to previous. ACT 112: Negative or not required by law. Electronically signed by: Eulogio Gaspar M.D. 08/25/2023 9:54 AM ECG Additional Comments: ECG revealed undetermined rhythm at 84 bpm; QTc 484; RBBB Code Status & VTE Plan Code Status DNR/DNI (confirmed with patient and patient's daughter at the bedside) VTE Prophylaxis Plan VTE Prophylaxis will be ordered: Yes Supervising Physician Co-Signing Physician Notes Patient seen and examined, chart reviewed, case discussed with Rohit Solano PA-C and I agree with the assessment and plan as above except as otherwise noted Labs and images reviewed 83-year-old female with history of ESRD-HD dependent, AAS, Mobitz 1 heart block, DM 2, cirrhosis, heart failure with preserved ejection fraction, anxiety, CVA, gastroparesis who presented with lethargy, confusion, and fever. Last known well was evening prior, patient is usually able to dialysis on her own but patient could not get up or walk this morning and patient was found by her daughter febrile and confused this morning. ER assessment is with no leukocytosis, no hyperkalemia, normal lactate, elevated procalcitonin, and UA is with blood/LE. Chest x-ray shows some pulmonary vascular congestion and pleural effusion similar to prior. No evidence of pneumonia. Patient is admitted for treatment of suspected UTI and metabolic encephalopathy. She does have a history of pseudomonal infections in 2022. Received Rocephin/Doxy, will expand on admission to dapto/zosyn to include pseudomonal coverage and enterococcal coverage. Based on past cultures and continue to follow. Do not suspect PNA on admit. PG Care Time/CCT Total # of Minutes Spent Total Time Spent with Patient: Total time spent is greater than 50% in coordination of care (as documented) at patient's floor/unit and/or counseling patient: [place] [id number] INT INP/OBS CARE 3/75MIN Patient Type Established Medical Decision Making High Complexity Diagnoses Acute UTI N39.0 Elevated troponin R77.8 Hypoxia R09.02 Lower extremity cellulitis L03.119 ESRD (end stage renal disease) on dialysis N18.6; Z99.2 (HFpEF) heart failure with preserved ejection fraction I50.30 Aortic stenosis I35.0 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 I44.1 RBBB I45.10 CAD (coronary artery disease) I25.10 GAVE (gastric antral vascular ectasia) K31.819 Anemia of chronic disease D63.8 Pleural effusion, bilateral J90
[2023-08-25] MEDS: POTASSIUM CHLORIDE CRTAB 20 MEQ TABCR PO STA (11:15)
--- NOTE | 2023-08-25 11:32 | Nephrology Consultation ---
Date of Consultation August 25, 2023 Assessment & Plan (1) ESRD (end stage renal disease) on dialysis: ESKD due to CRS (severe ). Outpatient HD: [facility] TTS, 3hr, 3K 2.5Ca F-180NR, EDW 61 kg. Will provide heparin free HD today using R IJ TDC. UF as tolerated. Orders for HD entered into the EHR and reviewed with RN. Medications are appropriately dosed for kidney function. Renal diet. 1.2 L daily fluid restriction. Sevelamer QAC. (2) Anemia of chronic disease: Maintained on Micera 200 Q 2 weeks as outpatient. Hgb 10.5 on August 20. Monitor H/H daily. (3) GAVE (gastric antral vascular ectasia): Hold heparin on HD due to h/o GAVE requiring multiple blood transfusions. (4) Acute UTI: Abx therapy switched to daptomycin and Zosyn on admission. Management per hospitalist. Culture pending. (5) Hypoxia: CXR reviewed. UF with HD as tolerated. Abx coverage for possible pneumonia. History of Present Illness Reason for Consultation: ESRD on HD History of Present Illness Sully Ray is an 83 year-old female with ESKD attributed to to CRS. She has been on HD since 08/23 and currently dialyzes TTS at [facility] under the care of Dr. Will (3hr, 3K 2.5Ca F-180NR, EDW 61 kg). She dialyzes via a RIJ TDC. Her medical history is significant for severe , mitral stenosis, R heart failure, permanent atrial fibrillation (not on anticoagulation due to GI bleeds), GAVE w/ recurrent UGI bleed requiring frequent blood transfusion, CVA, AODM, hypothyroidism. She has not had any recent complications with her dialysis treatments. EDW has been steadily reduced due to progressive weight loss. Recently, dry weight was reduced from 62 to 61 kg. She left dialysis on the at 60.7 kg. She missed HD this morning due to feeling weak and tired. Sully presented to the ER with lethargy, confusion, and low grade fever. Her daughter was at the bedside at the time of my assessment. Her daughter describes concerns including increased work of breathing noted this AM and notable weakness. She acknowledges multiple recent hospitalization and progressive frailty. The patient was seen and evaluated in the ER. Urine studies concerning for possible UTI. Unable to exclude pneumonia on CXR. Antibiotic therapy was started with Rocephin and doxycycline. I discussed the plan of care with the hospitalist and ER physician and hemodialysis was coordinated. Allergies Allergy/AdvReac Type Severity Reaction Status Date / Time sulfamethoxazole AdvReac Unknown REMOTE Verified 08/15/23 10:56 [From Bactrim] HX/PT NOT SURE REACTION trimethoprim [From Bactrim] AdvReac Unknown REMOTE Verified 08/15/23 10:56 HX/PT NOT SURE REACTION Home Medications Medication Instructions Recorded Confirmed Type cholecalciferol (vitamin D3) 25 2,000 unit PO QAM 05/29/18 08/25/23 History mcg (1,000 unit) capsule (Vitamin D3) cyanocobalamin (vitamin B-12) 1,000 mcg PO QAM 11/12/20 08/25/23 History 1,000 mcg tablet (Vitamin B-12) bethanechol chloride 50 mg tablet 50 mg PO BID #180 tabs 04/19/21 08/25/23 Rx diaper,brief,adult,disposable #150 ea 12/07/21 08/15/23 Rx (Fitted Briefs X-Large) loperamide 2 mg capsule 2 mg PO UD PRN Diarrhea 05/29/22 08/25/23 History estradiol 0.01% (0.1 mg/gram) 1 applic vaginal 3XWK PRN ONLY 05/30/22 08/25/23 History vaginal cream WHEN BURNING nystatin 100,000 unit/gram topical 1 applic topical BID PRN IRRITATION 07/10/22 08/25/23 History powder levothyroxine 150 mcg capsule 150 mcg PO QAM #90 caps 01/23/23 08/25/23 Rx furosemide 80 mg tablet 80 mg PO BID #180 tabs 05/28/23 08/25/23 Rx pantoprazole 40 mg tablet,delayed 40 mg PO BID #60 tabs 06/27/23 08/25/23 Rx release (Protonix) triamcinolone acetonide 0.5 % 1 applic topical BID PRN skin 07/03/23 08/25/23 Rx topical cream irritation #60 grams calcium acetate 667 mg tablet 667 mg PO TID 07/06/23 08/25/23 History famotidine 40 mg tablet 40 mg PO BID #60 tabs 07/06/23 08/25/23 Rx sertraline 50 mg tablet 50 mg PO DAILY #30 tabs 07/09/23 08/25/23 Rx calcium carbonate 600 mg-vitamin 1 tab PO DAILY 07/23/23 08/25/23 History D3 10 mcg (400 unit) tablet (Calcium 600 + D(3)) methocarbamol 500 mg tablet 500 mg PO TID PRN muscle spasm #90 07/23/23 08/25/23 Rx tabs omega-3 fatty acids 1,000 mg 1,000 mg PO DAILY 07/23/23 08/25/23 History capsule fluticasone propionate 50 1 spray intranasal DAILY #16 grams 08/16/23 08/25/23 Rx mcg/actuation nasal spray,suspension (Flonase Allergy Relief) atorvastatin 10 mg tablet (Lipitor) 10 mg PO HS #90 tabs 08/20/23 08/25/23 Rx tramadol 50 mg tablet 50 mg PO BID PRN Pain #60 tabs 08/20/23 08/25/23 Rx dimethicone 1.3 % topical cream 1 applic topical DAILY PRN skin 08/25/23 08/25/23 History (Cavilon Durable Barrier) irritation ropinirole 0.5 mg tablet 0.5 mg PO UD 08/25/23 08/25/23 History Patient History Medical History Elevated brain natriuretic peptide (BNP) level Elevated troponin I level Pericardial effusion Pleural effusion Elevated brain natriuretic peptide (BNP) level Non-ST elevation TN (NSTEMI) Pancytopenia Atrial fibrillation and flutter Hemorrhoids History of recent hospitalization GI BLEED/LOW BLOOD COUNT/HX BLOOD TRANSFUSION - MAY 2022 - [facility] ESRD on hemodialysis tuesdays, , and saturdays currently Poor historian History of GI bleed hx 08/2021, given transfusion-per medical record REASON FOR UPCOMING PROCEDURE Hx of atrial fibrillation, no current medication per medical report History of renal dialysis , AND SUN ([facility] [place]/ACROSS FROM [facility]) ACCESS SITE RIGHT SIDE OF CHEST/ ? DETAILS Resistant hypertension Diabetes mellitus, type 2 Hearing deficit no hearing aids Urinary urgency Secondary hyperparathyroidism of renal origin First degree AV block Hypertension Hypothyroidism Surgical History History of esophagogastroduodenoscopy (EGD) multiple---last 08/01/[address] [facility] 04/06/[address] [facility] with Dr. Mich Pacheco- EGD- Gastric antral vascular ectasia with bleeding, treated with argon plasma coagulation (APC); Few angioectasias in the duodenum, treated with APC S/P pericardiocentesis 08/2021, [facility], w/dr moura Hx of cardiac catheterization 08/2021, [facility] w/Dr. Moura for increased cardiac pressures; no stents History of tooth extraction History of colonoscopy H/O varicose vein ligation S/P trigger finger release S/P knee replacement RT/LEFT History of bladder suspension procedure X 2 S/P carpal tunnel release RT/LEFT History of back surgery (04/2010) X 2 S/P hysterectomy [place] Family History Father Alcohol abuse Heart disease Myocardial infarction Hypertension Sister Pancreatic cancer Diabetes Breast cancer Brother Diabetes Alcohol abuse Stroke Other Cancer No family history of adverse response to anesthesia Denies family history of Ovarian cancer Prostate cancer Colorectal cancer Social History Smoking Status: Never smoker Second Hand Exposure: No; Do You Dip or Chew Tobacco: No; Hx Alcohol Use: No Hx Substance Use: No Preferred Language: Montenegrin Communication Ability: Effective Visual Impairment: No Limitations Hearing Ability: Normal 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 Beliefs That Will Affect Care: None marital status: Single Current Living Situation: Family Current Living Situation Comment: Lives with daughter current occupational status: retired How many Children do You have: 2 Feels Safe at Home: Yes Childhood Exposure to Second-Hand Smoke: No Diet: regular Diet Comment: regular caffeine: Yes (Coffee x 2 cups per day.) during the past year weight has: remained stable Dental Care, Regularly: No Physical Activity Frequency: Does not Exercise Seatbelt Use: always Sunscreen Use: Yes Assistive Devices: Walker Review of Systems Review of Systems: All systems reviewed & are unremarkable except as noted in HPI & below Constitutional: + fever, + fatigue and + weakness Respiratory: no dyspnea Genitourinary: + decreased urination; no dysuria and no flank pain Physical Exam Constitutional: well developed and + frail appearing; no acute distress Eyes: no scleral abnormality and no corneal abnormality ENMT: Mouth: + dry oral mucous membranes; no oral mucosal abnormality Neck: normal visual inspection and trachea midline TDC Respiratory: normal respiratory effort Auscultation: lungs clear to auscultation bilaterally Cardiovascular: Rate/Rhythm: regular rate Heart Sounds: normal S1 and normal S2 Extremities: no edema Musculoskeletal: Extremities: no cyanosis and no clubbing Skin: normal turgor; no jaundice Neurologic: Motor/Sensory: no tremor and no asterixis Psychiatric: Orientation: alert and oriented x 3 Results & Data Vital Signs (Past 12 Hours) Vital Signs Temp Pulse Pulse Resp BP BP Pulse Ox 08/25/23 11:04 66 20 110/53 L 97 08/25/23 10:15 75 18 111/58 L 97 08/25/23 09:48 68 18 116/58 L 99 08/25/23 09:37 75 18 116/58 L 97 08/25/23 09:07 72 18 120/67 99 08/25/23 08:16 82 08/25/23 08:10 89 L 08/25/23 08:10 18 08/25/23 08:10 75 20 90 08/25/23 08:10 37.9 C H 85 20 126/68 90 O2 Del Method O2 Flow Rate 08/25/23 11:04 Nasal Cannula 2 08/25/23 10:15 Nasal Cannula 2 08/25/23 09:48 Nasal Cannula 2 08/25/23 09:37 Nasal Cannula 2 08/25/23 09:07 Nasal Cannula 2 08/25/23 08:16 08/25/23 08:10 Room Air 08/25/23 08:10 08/25/23 08:10 Room Air 08/25/23 08:10 Room Air Laboratory Results Laboratory Results - last 24 hr 08/25/23 08/25/23 08/25/23 08:28 10:46 Unknown WBC 8.22 RBC 4.46 Hgb 11.3 L Hct 35.6 L MCV 79.8 L MCH 25.3 MCHC 31.7 L RDW Std Deviation 47.8 H RDW Coeff of Irasema 16.9 H Plt Count 189 MPV 11.3 Immature Gran % (Auto) 0.2 Neut % (Auto) 88.3 Lymph % (Auto) 5.6 [place] % (Auto) 5.4 Eos % (Auto) 0.0 Baso % (Auto) 0.5 Neut # (Auto) 7.26 H Lymph # (Auto) 0.46 L [place] # (Auto) 0.44 Eos # (Auto) 0.00 Baso # (Auto) 0.04 Immature Gran # (Auto) 0.02 ESR 32 H Sodium 141 Potassium 3.5 Chloride 101 Carbon Dioxide 29 Anion Gap 11 BUN 50 H Creatinine 4.64 H* Est Cr Clr Drug Dosing 6.9 Est GFR ( Amer) 9.3 Est GFR (Non-Af Amer) 8.0 BUN/Creatinine Ratio 10.8 Glucose 130 H Lactate 1.3 Calcium 8.1 L Magnesium 2.0 Total Bilirubin 0.6 Direct Bilirubin 0.2 AST 17 ALT 7 Alkaline Phosphatase 191 H Troponin I High Sens 87.1 H* 94.4 H* C-Reactive Protein 2.80 H Total Protein 6.0 Albumin 3.1 L Procalcitonin 0.63 H Urine Color Dark Yellow Urine Appearance Cloudy A Urine pH 7.0 Ur Specific [place] 1.016 Urine Protein 3+ H Urine Glucose (UA) Trace H Urine Ketones Trace H Urine Blood 2+ H Urine Nitrite Negative Urine Bilirubin Negative Urine Urobilinogen Negative Ur Leukocyte Esterase 2+ H Urine WBC (Auto) >50 H Urine RBC (Auto) 3-5 H U Hyaline Cast (Auto) 0-2 U Epithel Cells (Auto) 0-2 Urine Bacteria (Auto) None Seen Diagnostic Findings SINGLE VIEW CHEST FINDINGS: An AP, portable, upright chest radiograph is compared to study dated 07/23/2023. The heart is enlarged noting atherosclerotic calcification of the thoracic aorta. There is pulmonary vascular congestion. Enlargement of the central pulmonary arteries suggests pulmonary artery hypertension. There are left larger than right pleural effusions with dependent consolidation. No pneumothorax is seen. The skeletal structures are osteopenic. Advanced arthritic change is noted in the shoulders. The bony thorax is grossly intact. Fusion hardware is seen at the thoracolumbar junction. IMPRESSION: 1. Cardiomegaly with pulmonary vascular congestion. 2. Left larger than right pleural effusions with dependent consolidation. These are similar to previous. PG Care Time/CCT Total # of Minutes Spent Total Time Spent with Patient: Total time spent is greater than 50% in coordination of care (as documented) at patient's floor/unit and/or counseling patient: Coding Level of Care Code 86664 IN/OBS CONSULT LVL 5,80M Diagnoses ESRD (end stage renal disease) on dialysis N18.6; Z99.2 Anemia of chronic disease D63.8 GAVE (gastric antral vascular ectasia) K31.819 Acute UTI N39.0 Hypoxia R09.02
[2023-08-25] MEDS ORDERED: TRIAMCINOLONE ACET 0.5% CR 15 GM TUBE TOP PRN (12:23)
[2023-08-25] MEDS ORDERED: ACETAMINOPHEN 325 MG TAB PO PRN (12:23)
[2023-08-25] MEDS ORDERED: METHOCARBAMOL 500 MG TABLET PO PRN (12:23)
[2023-08-25 12:32] LABS: C Reactive Protein 2.8 mg/dl (0-0.5)
--- NOTE | 2023-08-25 13:17 | Electrocardiogram Report ---
Test Reason : Blood Pressure : / mmHG Vent. Rate : 084 BPM Atrial Rate : 094 BPM P-R Int : 000 ms QRS Dur : 128 ms QT Int : 410 ms P-R-T Axes : 000 -39 -10 degrees QTc Int : 484 ms Normal sinus rhythm with 2nd degree A-V block (Mobitz I) Left axis deviation Right bundle branch block Abnormal ECG When compared with ECG of 23-JUL-2023 17:56, No significant change Confirmed by Andres Agudelo ([id number]) on 08/25/2023 1:16:48 PM Referred By: Confirmed By:Andres Agudelo
[2023-08-25] MEDS ORDERED: Nursing to Pharmacy Communication SCH ×3 (15:15→15:30)
[2023-08-25] MEDS: PIPERACILLIN/TAZOBACTAM 4.5 GM/100 ML BAG IV ONE ×2 (15:33→15:34)
[2023-08-25] MEDS: DAPTOmycin 300 MG in SYRINGE 0 ML IV ONE (15:34)
[2023-08-25] MEDS: FUROSEMIDE 80 MG TAB PO SCH (16:23)
[2023-08-25] MEDS: FAMOTIDINE 40 MG TABLET PO SCH (16:23)
--- NOTE | 2023-08-25 17:17 | Ultrasound Report ---
ULTRASOUND BILATERAL LOWER EXTREMITY VENOUS CLINICAL HISTORY: Lower extremity edema. COMPARISON STUDY: Left lower extremity venous ultrasound dated 02/19/2023. TECHNIQUE: Real-time, grayscale, and color Doppler sonography of the deep veins of the right and left lower extremity was performed from the inguinal crease to the calf. Compression and augmentation wer e utilized. FINDINGS: There is no sonographic evidence of deep venous thrombosis identified in the right or left lower extremity. The common femoral, superficial femoral, and popliteal veins are patent and normally compressible bilaterally. The greater saphenous vein and the profunda femoris vein at the junction w ith the common femoral vein are clear in both legs. The visualized calf veins are patent bilaterally. Soft tissue edema is seen in both legs. IMPRESSION: There is no sonographic evidence of deep venous thrombosis identified in the right or lef t lower extremity. ACT 112: Negative or not required by law. Electronically signed by: Eulogio Gaspar M.D. 08/25/2023 5:15 PM
[2023-08-25] MEDS: PANTOprazole 40 MG TAB PO SCH (20:20)
[2023-08-25] MEDS: BETHANECHOL CHL 25 MG TAB PO SCH (20:20)
[2023-08-25] MEDS: rOPINIRole HCL 1 MG TABLET PO SCH (20:21)
[2023-08-25] MEDS: traMADol HCL 50 MG TABLET PO PRN (20:27)
[2023-08-25] MEDS: PIPERACILLIN/TAZOBACTAM 4.5 GM in DEXTROSE 5% MINI-B 100 ML IV SCH (20:28)
[2023-08-26] MEDS: LEVOTHYROXINE SODIUM 150 MCG TABLET PO SCH (06:08)
[2023-08-26 06:33] LABS: Basophils # (auto) 0.03 K/uL (0.00-0.20); Basophils % (auto) 0.6 %; Eosinophils # (auto) 0.06 K/uL (0.00-0.50); Eosinophils % (auto) 1.1 %; Hematocrit (blood only) 31.3 % (37.0-47.0); Hemoglobin 9.6 g/dl (12.0-16.0); Immature Granulocytes # (auto) 0.02 K/uL (0.01-0.20); Immature Granulocytes % (auto) 0.4 %; Lymphocytes # (auto) 0.43 K/uL (1.20-3.40); Lymphocytes % (auto) 8.1 %; Mean Corpuscular Hemoglobin 24.9 pg (25.0-34.0); Mean Corpuscular Hgb Conc 30.7 g/dL (32.0-36.0); Mean Corpuscular Volume 81.1 fL (80.0-100.0); Mean Platelet Volume 11.3 fL (9.4-12.4); Monocytes # (auto) 0.43 K/uL (0.11-0.59); Monocytes % (auto) 8.1 %; Neutrophils # (auto) 4.35 K/uL (1.40-6.50); Neutrophils % (auto) 81.7 %; Platelet Count 138 K/uL (130-400); RDW Coefficient of Variation 16.9 % (11.5-14.5); RDW Standard Deviation 49.7 fL (36.4-46.3); Red Blood Count 3.86 M/uL (4.20-5.40); White Blood Count 5.32 K/ul (4.8-10.8)
[2023-08-26 07:00] LABS: Albumin Globulin Ratio 1.1 (0.9-2); Albumin Level 2.7 gm/dl (3.4-5.0); BUN Creatinine Ratio 7.9 (10-20); Bilirubin,Total 0.6 mg/dl (0.2-1.0); C Reactive Protein 2.91 mg/dl (0-0.5); Calcium 7.4 mg/dl (8.6-10.3); Creatinine Clr Calc Pharmacy 10.8 ml/min; Est GFR (African American) 16.4 ml/min; Est GFR (Non-African American) 14.2 ml/min; Globulin 2.5 gm/dl (2.5-4.0); Magnesium 1.8 mg/dl (1.7-2.4); Potassium 3.4 mmol/L (3.5-5.1); Total Protein 5.2 gm/dl (6.0-8.3)
[2023-08-26] MEDS: FLUTICASONE PROPIONATE NA SPR 16 GM BTL SCH (09:58)
[2023-08-26] MEDS: SERTRALINE HCL 50 MG TABLET PO SCH (09:59)
[2023-08-26] MEDS: rOPINIRole HCL 0.25 MG TABLET PO SCH (09:59)
--- NOTE | 2023-08-26 12:12 | Nephrology Progress Note ---
Date of Service August 26, 2023 Assessment & Plan (1) ESRD (end stage renal disease) on dialysis: Plan: ESKD due to CRS (severe ). Outpatient HD: [facility] TTS, 3hr, 3K 2.5Ca F-180NR, EDW 61 kg. Dialyzes via a RIJ TDC. Completed HD yesterday with adequate UF and clearance. Volume status and electrolytes are acceptable. Medications are appropriately dosed for kidney function. Renal diet. 1.2 L daily fluid restriction. Sevelamer QAC. (2) Anemia of chronic disease: Plan: Maintained on Micera 200 Q 2 weeks as outpatient. Hgb 10.5 on August 20. Monitor H/H daily. (3) GAVE (gastric antral vascular ectasia): Plan: Hold heparin on HD due to h/o GAVE requiring multiple blood transfusions. (4) Acute UTI: Plan: Culture pending Remains on daptomycin and Zosyn for UTI and possible cellulitis. Management per hospitalist. (5) Hypoxia: Plan: Completed HD with adequate UF and clearance. Complex history of severe aortic stenosis and recent progressive weight loss complicating volume management with HD, multiple recent associated hospitalizations. Remains on furosemide to encourage urine output. Admission and Anticipated Discharge Date Admission Date: August 25, 2023 Subjective No acute events overnight. No complaints this AM. Sully tolerated HD well yesterday. No complications with treatment. Review of Systems Review of Systems: All systems reviewed & are unremarkable except as noted in HPI & below Physical Exam Constitutional: + frail appearing; no acute distress Eyes: + anicteric sclerae; no corneal abnormal ity ENMT: Mouth: no oral mucosal abnormality and oral mucous membranes not dry Neck: normal visual inspection and trachea midline RIJ TDC Respiratory: normal respiratory effort Auscultation: lungs clear to auscultation bilaterally Cardiovascular: Rate/Rhythm: regular rate Heart Sounds: normal S1 and normal S2 Extremities: no edema Musculoskeletal: Extremities: no cyanosis and no clubbing Skin: normal turgor; no lesions and no jaundice Neurologic: Motor/Sensory: no tremor and no asterixis Psychiatric: Orientation: alert and oriented x 3 Results & Data Vital Signs (Past 12 Hours) Vital Signs Temp Pulse Pulse Resp BP Pulse Ox O2 Del Method 08/26/23 11:09 Nasal Cannula 08/26/23 10:38 36.9 C 70 18 94/55 L 95 Room Air 08/26/23 08:05 36.8 C 71 19 126/71 98 Nasal Cannula 08/26/23 08:00 Room Air 08/26/23 07:40 80 08/26/23 03:13 36.5 C 68 20 119/70 97 Nasal Cannula O2 Flow Rate 08/26/23 11:09 2 08/26/23 10:38 08/26/23 08:05 2 08/26/23 08:00 08/26/23 07:40 08/26/23 03:13 2 Laboratory Results Laboratory Results - last 24 hr 08/25/23 08/25/23 08/25/23 08:28 15:46 19:03 WBC RBC Hgb Hct MCV MCH MCHC RDW Std Deviation RDW Coeff of Irasema Plt Count MPV Immature Gran % (Auto) Neut % (Auto) Lymph % (Auto) [place] % (Auto) Eos % (Auto) Baso % (Auto) Neut # (Auto) Lymph # (Auto) [place] # (Auto) Eos # (Auto) Baso # (Auto) Immature Gran # (Auto) ESR 32 H Sodium Potassium Chloride Carbon Dioxide Anion Gap BUN Creatinine Est Cr Clr Drug Dosing Est GFR ( Amer) Est GFR (Non-Af Amer) BUN/Creatinine Ratio Glucose Calcium Magnesium Total Bilirubin AST ALT Alkaline Phosphatase Troponin I High Sens 82.4 H* D C-Reactive Protein 2.80 H Total Protein Albumin Globulin Albumin/Globulin Ratio Nasal Screen MRSA (PCR) Negative 08/25/23 08/26/23 23:31 05:49 WBC 5.32 RBC 3.86 L Hgb 9.6 L Hct 31.3 L MCV 81.1 MCH 24.9 L MCHC 30.7 L RDW Std Deviation 49.7 H RDW Coeff of Irasema 16.9 H Plt Count 138 MPV 11.3 Immature Gran % (Auto) 0.4 Neut % (Auto) 81.7 Lymph % (Auto) 8.1 [place] % (Auto) 8.1 Eos % (Auto) 1.1 Baso % (Auto) 0.6 Neut # (Auto) 4.35 Lymph # (Auto) 0.43 L [place] # (Auto) 0.43 Eos # (Auto) 0.06 Baso # (Auto) 0.03 Immature Gran # (Auto) 0.02 ESR Sodium 136 Potassium 3.4 L Chloride 101 Carbon Dioxide 28 Anion Gap 7 BUN 23 D Creatinine 2.90 H D Est Cr Clr Drug Dosing 10.8 Est GFR ( Amer) 16.4 Est GFR (Non-Af Amer) 14.2 BUN/Creatinine Ratio 7.9 L Glucose 103 H Calcium 7.4 L Magnesium 1.8 Total Bilirubin 0.6 AST 16 ALT 6 L Alkaline Phosphatase 161 H Troponin I High Sens 68.2 H* D C-Reactive Protein 2.91 H Total Protein 5.2 L Albumin 2.7 L Globulin 2.5 Albumin/Globulin Ratio 1.1 Nasal Screen MRSA (PCR) PG Care Time/CCT Total # of Minutes Spent Total Time Spent with Patient: Total time spent is greater than 50% in coordination of care (as documented) at patient's floor/unit and/or counseling patient: Coding Level of Care Code 14989 SUB INP/OBS CARE 3/50MIN Diagnoses ESRD (end stage renal disease) on dialysis N18.6; Z99.2 Anemia of chronic disease D63.8 GAVE (gastric antral vascular ectasia) K31.819 Acute UTI N39.0 Hypoxia R09.02
--- NOTE | 2023-08-26 16:01 | Hospitalist Progress Note ---
Date of Service August 26, 2023 Assessment & Plan (1) Acute UTI: Plan: Acute onset of fever, lethargy, and confusion the morning of 08/24 UA positive on arrival, Urine culture: -Johnson catheter placed in the ED; Daily Johnson catheter care -Patient still makes some urine, but amount has been decreasing Review of most recent urine cultures revealed E. coli (with some resistance), Enterococcus faecalis (03/25/2023), and Pseudomonas (02/15/2023) Daptomycin 15mg/kg IV q24h Zosyn 4.5 g IV q8h A.m. CBC, BMP, CRP (2) Lower extremity cellulitis: Plan: New onset erythema of the lower extremities (L>R); warm to touch ESR 32, CRP 2.91- trend with AM labs Bilateral lower extremity Dopplers negative for DVT MRSA swab negative blood cultures: negative at 24 hours Daptomycin (as above); hold statin PT/OT - patient does not want to [facility] (3) Elevated troponin: Plan: Troponin elevated to 87.1-->94.4 on arrival Clinically patient denies chest pain/pressure Suspect demand ischemia and poor troponin clearance by the kidneys Continuous telemetry monitoring (4) Hypoxia: Plan: Patient is not on supplemental oxygen at baseline CXR revealed cardiomegaly with pulmonary vascular congestion; L>R pleural effusions Procalcitonin mildly elevated at 0.63 Continue Lasix Weaned down to room air during my visit (5) ESRD (end stage renal disease) on dialysis: Plan: HD on Sunday//Sunday Nephrology consulted for inpatient dialysis - Sevelamer with meals - 1.2L FR (6) (HFpEF) heart failure with preserved ejection fraction: Plan: Last echo on 02/15/2023 revealed LVEF >70% and severe aortic stenosis Continue Lasix 80mg BID Plan Chronic stable conditions * anemia/GAVe - required transfusions last admission * CAD - statin on hold with dapto * Mobitz type 1 - seen by cardiology previous, not a pacer candidate Disposition: continued inpatient stay VTE PPx: Hold chemical DVT PPx in the setting of GAVE/anemia Admission and Anticipated Discharge Date Admission Date: August 25, 2023 Supervising Physician Co-Signing Physician Notes PA Supervision Note: I did not personally see or examine the patient today, but I verified all dixon points of PA Malackowski's assessment and plan with the following exceptions/additions: None Subjective patient seen after breakfast. States that she has been producing less and less urine. [place] fatigued yesterday and fell asleep after getting up and getting ready for dialysis currently feels okay, thinks legs are less swollen does not want to go back to [facility] Review of Systems Review of Systems: All systems reviewed & are unremarkable except as noted in Subjective Physical Exam Physical Exam: General: NAD, VS as above Resp: normal respiratory effort, lungs clear to auscultation, no cough CV: + murmur, bradycardic Abd: normal bowel sounds, non tender, no hepatosplenomegaly Extremities: Moves all extremities, bilateral erythema but worse on the lower Left leg with warmth. patient reports improved from yesterday Neuro: A&O x3, Results & Data Results & Data Vital Signs (Past 12 Hours) Vital Signs Temp Pulse Pulse Resp BP BP Pulse Ox 08/26/23 15:41 68 08/26/23 12:32 103/62 123/49 L 08/26/23 11:09 08/26/23 10:38 36.9 C 70 18 94/55 L 95 08/26/23 08:05 36.8 C 71 19 126/71 98 08/26/23 08:00 08/26/23 07:40 80 O2 Del Method O2 Flow Rate 08/26/23 15:41 08/26/23 12:32 08/26/23 11:09 Nasal Cannula 2 08/26/23 10:38 Room Air 08/26/23 08:05 Nasal Cannula 2 08/26/23 08:00 Room Air 08/26/23 07:40 Laboratory Results CBC, chemistry and trop reviewed Diagnostic Findings LE doppler reviewed PG Care Time/CCT Total # of Minutes Spent Total Time Spent with Patient: Total time spent is greater than 50% in coordination of care (as documented) at patient's floor/unit and/or counseling patient: Coding Level of Care Code 68664 SUB INP/OBS CARE 3/50MIN Diagnoses Acute UTI N39.0 Lower extremity cellulitis L03.119 Elevated troponin R77.8 Hypoxia R09.02 ESRD (end stage renal disease) on dialysis N18.6; Z99.2 (HFpEF) heart failure with preserved ejection fraction I50.30
[2023-08-26] MEDS: SEVELAMER CARBONATE 800 MG TAB PO SCH (17:23)
[2023-08-26] MEDS ORDERED: VANCOMYCIN CONSULT ACTIVE PRN (21:28)
[2023-08-26] MEDS ORDERED: VANCOMYCIN HCL 1,000 MG in SODIUM CHLORIDE 0.9% 250 ML IV SCH (21:30)
[2023-08-26] MEDS ORDERED: VANCOMYCIN HCL 1,250 MG in SODIUM CHLORIDE 0.9% 250 ML IV STA (21:36)
[2023-08-26] MEDS: VANCOMYCIN HCL 1,000 MG in SODIUM CHLORIDE 0.9% 250 ML IV STA (22:27)
[2023-08-27 06:46] LABS: Albumin Globulin Ratio 1.1 (0.9-2); Albumin Level 2.6 gm/dl (3.4-5.0); BUN Creatinine Ratio 7.7 (10-20); Bilirubin,Total 0.6 mg/dl (0.2-1.0); C Reactive Protein 2.83 mg/dl (0-0.5); Calcium 7.2 mg/dl (8.6-10.3); Est GFR (African American) 9.6 ml/min; Est GFR (Non-African American) 8.2 ml/min; Globulin 2.4 gm/dl (2.5-4.0); Potassium 3.3 mmol/L (3.5-5.1)
--- NOTE | 2023-08-27 07:48 | Electrocardiogram Report ---
Test Reason : Blood Pressure : / mmHG Vent. Rate : 072 BPM Atrial Rate : 072 BPM P-R Int : 336 ms QRS Dur : 136 ms QT Int : 478 ms P-R-T Axes : 058 -29 -16 degrees QTc Int : 523 ms Sinus rhythm with 1st degree A-V block (markedly prolonged DE interval) Right bundle branch block Abnormal ECG When compared with ECG of 25-AUG-2023 08:05, Sinus rhythm is no longer with 2nd degree A-V block (Mobitz I) Confirmed by Jeffrey Mendez ([id number]) on 08/27/2023 7:47:53 AM Referred By: Soren Sue Confirmed By:Jeffrey Mendez
[2023-08-27] MEDS: VANCOMYCIN HCL 1,000 MG in SODIUM CHLORIDE 0.9% 250 ML IV STA (08:13)
--- NOTE | 2023-08-27 08:29 | Nephrology Progress Note ---
Date of Service August 27, 2023 Assessment & Plan (1) ESRD (end stage renal disease) on dialysis: Plan: * Last HD 08/25/23 without complication * Clinically euvolemic, electrolyte balance is acceptable. No acute indication for HD today * Outpatient HD Rx: [facility], 3hr, 3K 2.5Ca F-180NR, EDW 61 kg, R IJ TCC (2) Anemia of chronic disease: Plan: * Maintained on Micera 200 Q 2 weeks as outpatient. * Monitor H&H (3) GAVE (gastric antral vascular ectasia): Plan: * Hold heparin on HD due to h/o GAVE requiring multiple blood transfusions. (4) Acute UTI: Plan: * 08/25/23 urine culture is negative * Remains on Zosyn for UTI and possible cellulitis (5) Hypoxia: Plan: * Improved after challenging EDW on HD * Severe and recent weight loss are likely contributing factors * Remains on furosemide to encourage urine output Admission and Anticipated Discharge Date Admission Date: August 25, 2023 Subjective Ms. Ray was evaluated in her hospital room this morning. She was breathing comfortably flat in bed on RA. She voiced no new medical concerns Review of Systems Constitutional: no fever Eyes: no problem reported Ear, Nose, Mouth, Throat: no problem reported Respiratory: no cough and no dyspnea Cardiovascular: no chest pain Gastrointestinal: no abdominal pain, no nausea, no vomiting and no diarrhea/loose stools Integumentary: + problem reported LE cellulitis (improved) Physical Exam Constitutional: not in distress Eyes: PERRL, conjunctivae normal, anicteric sclerae ENMT: external ear and nose normal, oropharynx normal Neck: trachea midline, no thyromegaly Respiratory: normal respiratory effort, lungs clear to auscultation Cardiovascular: RRR, no murmur, no edema Gastrointestinal (Abdomen): normal bowel sounds, soft, nontender, no hepatosplenomegaly Skin: no rashes, warm and dry Neurologic: Speech / Cognition: normal speech and normal cognition Psychiatric: Affect: euthymic affect Results & Data Vital Signs (Past 12 Hours) Vital Signs Temp Pulse Pulse Resp BP Pulse Ox O2 Del Method 08/27/23 08:01 73 08/27/23 03:17 36.5 C 71 16 121/64 95 Room Air 08/26/23 23:03 36.8 C 74 16 105/58 L 96 Room Air 08/26/23 21:54 73 Laboratory Results Laboratory Results - last 24 hr 08/27/23 05:46 WBC Pending RBC Pending Hgb Pending Hct Pending MCV Pending MCH Pending MCHC Pending Plt Count Pending Sodium 134 L Potassium 3.3 L Chloride 101 Carbon Dioxide 24 Anion Gap 9 BUN 35 H Creatinine 4.54 H* D Est Cr Clr Drug Dosing 7.0 Est GFR ( Amer) 9.6 Est GFR (Non-Af Amer) 8.2 BUN/Creatinine Ratio 7.7 L Glucose 116 H Calcium 7.2 L Total Bilirubin 0.6 AST 18 ALT 8 Alkaline Phosphatase 169 H C-Reactive Protein 2.83 H Total Protein 5.0 L Albumin 2.6 L Globulin 2.4 L Albumin/Globulin Ratio 1.1 Random Vancomycin 10.3 PG Care Time/CCT Total # of Minutes Spent Total Time Spent with Patient: Total time spent is greater than 50% in coordination of care (as documented) at patient's floor/unit and/or counseling patient: Coding Level of Care Code 95504 SUB INP/OBS CARE 3/50MIN Diagnoses ESRD (end stage renal disease) on dialysis N18.6; Z99.2 Anemia of chronic disease D63.8 GAVE (gastric antral vascular ectasia) K31.819 Acute UTI N39.0 Hypoxia R09.02
--- NOTE | 2023-08-27 09:48 | Pharmacy Report ---
Pharmacy PK ABX Note - Date of Service August 27, 2023 - Assessment and Plan Assessment 83 year old F receiving VANCOMYCIN/ZOSYN for treatment of pneumonia/UTI. Pertinent microbiologic data includes: Negative MRSA Nasal Swab, blood cultures NG x48 hours, and urine culture growing probable skin chandra. ESRD on HD TuThSa, history of VRE in urine 2019. Day # 1 of vancomycin therapy. Plan Vancomycin * Loading dose: 1000 mg IV x 1 * Random level this AM, therapeutic, ok to redose today, 15 mg/kg x1 ordered this AM * Pre-dialysis level ordered for tomorrow morning with AM labs Pharmacy will continue to follow and will adjust dose/frequency as necessary. Thank you. Pharmacy has transitioned to AUC monitoring for vancomycin. AUC/MYNOR is the preferred PK/PD target and is associated with decreased risk of nephrotoxicity compared to traditional trough targets.
[2023-08-27] MEDS: CALCIUM 600MG + VIT D 400 IU TAB PO SCH (10:00)
[2023-08-27] MEDS: CYANOCOBALAMIN (B-12) 500 MCG TABLET PO SCH (10:00)
[2023-08-27 10:27] LABS: Basophils # (auto) 0.04 K/uL (0.00-0.20); Basophils % (auto) 0.8 %; Hematocrit (blood only) 30.8 % (37.0-47.0); Hemoglobin 9.5 g/dl (12.0-16.0); Lymphocytes # (auto) 0.33 K/uL (1.20-3.40); Mean Corpuscular Hgb Conc 30.8 g/dL (32.0-36.0); Mean Corpuscular Volume 81.1 fL (80.0-100.0); Mean Platelet Volume 11.5 fL (9.4-12.4); Monocytes # (auto) 0.42 K/uL (0.11-0.59); Monocytes % (auto) 8.9 %; Neutrophils # (auto) 3.95 K/uL (1.40-6.50); Neutrophils % (auto) 83.3 %; Platelet Count 129 K/uL (130-400); RDW Coefficient of Variation 16.6 % (11.5-14.5); RDW Standard Deviation 48.4 fL (36.4-46.3); White Blood Count 4.74 K/ul (4.8-10.8)
[2023-08-27] MEDS: CALCIUM ACETATE 667 MG CAP/TAB PO SCH (13:29)
[2023-08-27] MEDS ORDERED: DAPTOmycin 300 MG in SYRINGE 0 ML IV SCH (16:00)
--- NOTE | 2023-08-27 18:38 | Hospitalist Progress Note ---
Date of Service August 27, 2023 Assessment & Plan (1) Sepsis: Plan: Sepsis due to pneumonia and/or UTI, POA Acute onset of fever, lethargy, and confusion the morning of 08/24. UA w/ significant pyuria but no bacteria and Ur cx negative. Bilat leg L>R cellulitis, and also with possible PNA given CXR findings and reports of productive cough at home. Blood cxs remain NGTD and fevers have resolved Continue Vancomycin and Zosyn for broad coverage for cellulitis and PNA MRSA swab neg but prefer to keep Vanco going Follow CBC, BMP Follow CXR periodically (2) Lower extremity cellulitis: Plan: New onset erythema of the lower extremities (L>R); warm to touch ESR 32, CRP 2.91 Bilateral lower extremity Dopplers negative for DVT MRSA swab negative blood cultures:remain NGTD Erythema and pain improving COntinue Vanco and Zosyn For diarrhea, check C. diff--> negative (3) Elevated troponin: Plan: Troponin elevated to 87.1-->94.4 and then back down, no CP, no ischemic changes on ECG Clinically patient denies chest pain/pressure Suspect demand ischemia and poor troponin clearance by the kidneys Continuous telemetry monitoring (4) Hypoxia: Plan: Patient is not on supplemental oxygen at baseline CXR revealed cardiomegaly with pulmonary vascular congestion; L>R pleural effusions Likely from pleural effusions and acute on chronic HFpEF Continue Lasix and volume management with dialysis Weaned down to room air (5) ESRD (end stage renal disease) on dialysis: Plan: HD on Sunday//Sunday Nephrology consulted for inpatient dialysis Resume Sevelamer with meals Continue lasix (6) (HFpEF) heart failure with preserved ejection fraction: Plan: Last echo on 02/15/2023 revealed LVEF >70% and severe aortic stenosis Continue Lasix 80mg BID fluid management also with HD (7) Aortic stenosis: Plan: moderate-severe on last ECHO follow as outpt (8) Anemia of chronic disease: Plan: from ESRD but also had GAVE with GI bleed a few weeks ago requiring PRBC t ransfusion follow CBC Continue PPI bid (9) Atrial fibrillation and flutter: Plan: paroxysmal, none here thus far not on AV jolie andrae or anticoagulation due to h/o GAVE nd GI bleeding monitor on tele Plan Chronic stable conditions CAD - continue statin Mobitz type 1 - seen by cardiology previous, not a pacer candidate , asymptomtic Hypothyroidism-continue levothyroxine Disposition: continued inpatient stay VTE PPx: Hold chemical DVT PPx in the setting of GAVE/anemia Admission and Anticipated Discharge Date Admission Date: August 25, 2023 Subjective Pt having multiple loose stools and she reports the last one was black. Nursing reports it was dark with a greenish tint. Denies cough, SOB, CP. Se thinks the pain and redness in her legs is much improved Tele with SR, 1st deg AV block, 2nd degree Mobitz 1 block, Physical Exam Constitutional: WD/WN, vitals as above Respiratory: normal respiratory effort; no cough Auscultation: + diminished lung sounds (at bases bilat); no crackles, no rhonchi and no wheezes Cardiovascular: Rate/Rhythm: regular rate and regular rhythm Heart Sounds: no murmur Extremities: + edema (2+ pitting edema legs bilat) Gastrointestinal (Abdomen): normal bowel sounds, soft, nontender, no hepatosplenomegaly Skin: left leg very mild erythema Psychiatric: A+Ox3, euthymic affect Results & Data Results & Data Vital Signs (Past 12 Hours) Vital Signs Temp Pulse Pulse Resp BP Pulse Ox O2 Del Method 08/27/23 15:46 36.6 C 69 17 121/62 98 Room Air 08/27/23 15:12 66 08/27/23 11:39 36.7 C 66 17 135/79 99 Room Air 08/27/23 08:30 Room Air 08/27/23 08:30 36.6 C 78 16 128/65 95 Room Air 08/27/23 08:01 73 08/27/23 08:00 Room Air PG Care Time/CCT Total # of Minutes Spent Total Time Spent with Patient: Total time spent is greater than 50% in coordination of care (as documented) at patient's floor/unit and/or counseling patient: Coding Level of Care Code 26831 SUB INP/OBS CARE 2/35MIN Diagnoses Sepsis A41.9 Lower extremity cellulitis L03.119 Elevated troponin R77.8 Hypoxia R09.02 ESRD (end stage renal disease) on dialysis N18.6; Z99.2 (HFpEF) heart failure with preserved ejection fraction I50.30 Aortic stenosis I35.0 Anemia of chronic disease D63.8 Atrial fibrillation and flutter I48.91; I48.92
[2023-08-27] MEDS: ATORVASTATIN 10 MG TAB PO SCH (21:18)
[2023-08-28 05:50] LABS: Basophils # (auto) 0.04 K/uL (0.00-0.20); Basophils % (auto) 0.8 %; Eosinophils # (auto) 0.11 K/uL (0.00-0.50); Eosinophils % (auto) 2.2 %; Hematocrit (blood only) 29.8 % (37.0-47.0); Hemoglobin 9.3 g/dl (12.0-16.0); Immature Granulocytes # (auto) 0.01 K/uL (0.01-0.20); Immature Granulocytes % (auto) 0.2 %; Mean Corpuscular Hemoglobin 24.6 pg (25.0-34.0); Mean Corpuscular Hgb Conc 31.2 g/dL (32.0-36.0); Mean Corpuscular Volume 78.8 fL (80.0-100.0); Mean Platelet Volume 10.3 fL (9.4-12.4); Monocytes # (auto) 0.45 K/uL (0.11-0.59); Neutrophils # (auto) 3.98 K/uL (1.40-6.50); Neutrophils % (auto) 79.8 %; Platelet Count 125 K/uL (130-400); RDW Coefficient of Variation 16.6 % (11.5-14.5); RDW Standard Deviation 47.6 fL (36.4-46.3); Red Blood Count 3.78 M/uL (4.20-5.40); White Blood Count 4.99 K/ul (4.8-10.8)
[2023-08-28 06:20] LABS: Albumin Level 2.6 gm/dl (3.4-5.0); BUN Creatinine Ratio 9.3 (10-20); Bilirubin,Total 0.5 mg/dl (0.2-1.0); C Reactive Protein 2.1 mg/dl (0-0.5); Creatinine Clr Calc Pharmacy 5.9 ml/min; Est GFR (African American) 7.7 ml/min; Est GFR (Non-African American) 6.7 ml/min; Globulin 2.5 gm/dl (2.5-4.0); Potassium 3.2 mmol/L (3.5-5.1); Total Protein 5.1 gm/dl (6.0-8.3)
[2023-08-28] MEDS ORDERED: SODIUM CHLORIDE 0.9% 1,000 ML IV PRN (07:00)
[2023-08-28] MEDS: CHOLECALCIFEROL 25 MCG (1000 UNITS) TAB PO SCH (08:22)
--- NOTE | 2023-08-28 08:53 | Nephrology Progress Note ---
Date of Service August 28, 2023 Assessment & Plan (1) ESRD (end stage renal disease) on dialysis: Plan: * Will provide HD today and attempt 3 L UF based on BP response. Orders placed in EMR and HD RN notified * Outpatient HD Rx: [facility], 3hr, 3K 2.5Ca F-180NR, EDW 61 kg, R IJ TCC (2) Anemia of chronic disease: Plan: * Maintained on Micera 200 Q 2 weeks as outpatient. * Monitor H&H (3) GAVE (gastric antral vascular ectasia): Plan: * Hold heparin on HD due to h/o GAVE requiring multiple blood transfusions. (4) Acute UTI: Plan: * 08/25/23 urine culture is negative * Remains on Zosyn for UTI and possible cellulitis (5) Hypoxia: Plan: * Improved after challenging EDW on HD * Severe and recent weight loss are likely contributing factors * Remains on furosemide to encourage urine output (6) Physical deconditioning: Plan: * Consider d/c Johnson * Advance activity as tolerated Admission and Anticipated Discharge Date Admission Date: August 25, 2023 Subjective Ms. Ray was evaluated in her hospital room this morning. She was breathing comfortably flat in bed on RA. She voiced no new medical concerns Review of Systems Constitutional: no fever Eyes: no problem reported Ear, Nose, Mouth, Throat: no problem reported Respiratory: no cough and no dyspnea Cardiovascular: no chest pain Gastrointestinal: no abdominal pain, no nausea, no vomiting and no diarrhea/loose stools Genitourinary: + decreased urination; no dysuria and no flank pain Integumentary: + problem reported LE cellulitis (improved) Physical Exam Constitutional: not in distress Eyes: PERRL, conjunctivae normal, anicteric sclerae ENMT: external ear and nose normal, oropharynx normal Neck: trachea midline, no thyromegaly Respiratory: normal respiratory effort, lungs clear to auscultation Cardiovascular: RRR, no murmur, no edema Gastrointestinal (Abdomen): normal bowel sounds, soft, nontender, no hepatosplenomegaly Skin: no rashes, warm and dry Neurologic: Speech / Cognition: normal speech and normal cognition Psychiatric: Affect: euthymic affect Results & Data Vital Signs (Past 12 Hours) Vital Signs Temp Pulse Pulse Resp BP Pulse Ox O2 Del Method 08/28/23 07:36 36.7 C 73 18 130/60 97 Room Air 08/28/23 03:14 36.7 C 80 16 133/74 96 Room Air 08/27/23 23:00 69 08/27/23 22:25 37.1 C 69 16 115/65 96 Room Air Laboratory Results Laboratory Results - last 24 hr 08/27/23 08/27/23 08/28/23 05:46 17:53 05:17 WBC 4.74 L 4.99 RBC 3.80 L 3.78 L Hgb 9.5 L 9.3 L Hct 30.8 L 29.8 L MCV 81.1 78.8 L MCH 25.0 24.6 L MCHC 30.8 L 31.2 L RDW Std Deviation 48.4 H 47.6 H RDW Coeff of Irasema 16.6 H 16.6 H Plt Count 129 L 125 L MPV 11.5 10.3 Immature Gran % (Auto) 0.0 0.2 Neut % (Auto) 83.3 79.8 Lymph % (Auto) 7.0 8.0 [place] % (Auto) 8.9 9.0 Eos % (Auto) 0.0 2.2 Baso % (Auto) 0.8 0.8 Neut # (Auto) 3.95 3.98 Lymph # (Auto) 0.33 L 0.40 L [place] # (Auto) 0.42 0.45 Eos # (Auto) 0.00 0.11 Baso # (Auto) 0.04 0.04 Immature Gran # (Auto) 0.00 L 0.01 Sodium 133 L Potassium 3.2 L Chloride 100 Carbon Dioxide 21 Anion Gap 12 H BUN 50 H Creatinine 5.40 H* D Est Cr Clr Drug Dosing 5.9 Est GFR ( Amer) 7.7 Est GFR (Non-Af Amer) 6.7 BUN/Creatinine Ratio 9.3 L Glucose 132 H Calcium 7.0 L Magnesium 2.0 Total Bilirubin 0.5 AST 14 ALT 7 Alkaline Phosphatase 155 H C-Reactive Protein 2.10 H Total Protein 5.1 L Albumin 2.6 L Globulin 2.5 Albumin/Globulin Ratio 1.0 Stl C. diff Tox B Gene Negative Cdiff Gene Random Vancomycin 15.6 PG Care Time/CCT Total # of Minutes Spent Total Time Spent with Patient: Total time spent is greater than 50% in coordination of care (as documented) at patient's floor/unit and/or counseling patient: Coding Level of Care Code 75980 SUB INP/OBS CARE 50MIN Diagnoses ESRD (end stage renal disease) on dialysis N18.6; Z99.2 Anemia of chronic disease D63.8 GAVE (gastric antral vascular ectasia) K31.819 Acute UTI N39.0 Hypoxia R09.02 Physical deconditioning R53.81
[2023-08-28] MEDS ORDERED: CHOLECALCIFEROL 25 MCG (1000 UNITS) TAB PO SCH (09:00)
--- NOTE | 2023-08-28 09:47 | Pharmacy Report ---
Pharmacy PK ABX Note - Date of Service August 28, 2023 - Assessment and Plan Assessment 08/28: Reviewed vancomycin level, level within goal range (15-20mcg/mL), will redose 750mg x1 today following hemodialysis per [facility] Pharmacokinetic dosing protocol in with pre-HD levels. MRSA nares negative, treating multifactorial infection (pneumonia/SST/UTI) continue vancomycin for now per hospitalist. 08/27: 83 year old F receiving VANCOMYCIN/ZOSYN for treatment of pneumonia/UTI. Pertinent microbiologic data includes: Negative MRSA Nasal Swab, blood cultures NG x48 hours, and urine culture growing probable skin chandra. ESRD on HD TuThSa, history of VRE in urine 2018. Day # 1 of vancomycin therapy. Plan Vancomycin * Loading dose: 1000 mg IV x 1 * Random level this AM therapeutic, redose 750mg x1 after hemodialysis * Random level ordered for tomorrow morning with AM labs to assess for any residual clearance since patient does have minimal urine output, likely can reduce frequency to only pre-dialysis levels after. Pharmacy will continue to follow and will adjust dose/frequency as necessary. Thank you. Pharmacy has transitioned to AUC monitoring for vancomycin. AUC/MYNOR is the preferred PK/PD target and is associated with decreased risk of nephrotoxicity compared to traditional trough targets.
[2023-08-28] MEDS: EPOETIN ALFA 10,000 UNITS/ML VIAL IV SCH (10:41)
--- NOTE | 2023-08-28 15:52 | Hospitalist Progress Note ---
Date of Service August 28, 2023 Assessment & Plan (1) Sepsis: Plan: Sepsis due to pneumonia and/or UTI, PNA Acute onset of fever, lethargy, and confusion the morning of 08/24. UA w/ significant pyuria but no bacteria and Ur cx negative. Bilat leg L>R eryth candice/warmth on admission but also in the setting of swelling and improved proportional to what. Also with possible PNA given CXR and reports of productive cough at home prior to admission. Pro-Earl was elevated, but this is limited by her ESRD and may have been artificially elevated. Given underlying comorbidity, fevers, and symptoms that would be consistent with pneumonia, was recommended for conservative treatment with broad antibiotics including MRSA and pseudomonal coverage. Limited oral options, especially given baseline QT prolongation Blood cxs remain NGTD and fevers have resolved Day 0 of antibiotics 08/25/2023. Continue Vancomycin and Zosyn for broad coverage for cellulitis and PNA. Has a history of pseudomonal infection. dialysis dependent MRSA swab neg but prefer to keep Vanco going while inpt due to increased risk Patient feels greatly improved 08/27, although tired and still weak post-dialysis session. "Legs are finally skinny again ". On exam minimal to no pitting lance a, erythema dramatically improved bilaterally compared to prior reports. CBC, BMP trended Unclear source and has a history of Pseudomonas with Cipro/Levaquin limited due to QT prolongation. Overall however she is making excellent progress Does continue to have weakness and OT recommending rehab although patient does not wish to pursue this and would like to go home if possible. PT remains pend ing. (2) ESRD (end stage renal disease) on dialysis: Plan: HD on Sunday//Sunday Nephrology consulted for inpatient dialysis Resume Sevelamer with meals Continue lasix Patient did express an extreme frustration with dialysis 08/27 and that she "hate, hate, hates it". On further discussion she agrees that while she does hate it, that the time it brings is worth it for her to have calls or be with her children/grandchildren and would not want to forego dialysis if she were to rapidly decline although she knows some people who made the choice to do that. She does however feel like she had a significant increase in fatigue when she started dialysis and this has been very frustrating for her. (3) Lower extremity cellulitis: Plan: New onset erythema of the lower extremities (L>R); warm to touch ESR and CRP elevated Bilateral lower extremity Dopplers negative for DVT MRSA swab negative blood cultures:remain NGTD Erythema and pain nearly completely resolved. Differential includes venous stasis dermatitis, and suspect most likely cause of her acute presentation was pneumonia however lower extremity cellulitis is within the differential. Antibiotics continued as noted (4) Elevated troponin: Plan: Troponin elevated to 87.1-->94.4 and then back down, no CP, no ischemic changes on ECG Clinically patient denies chest pain/pressure Suspect demand ischemia and poor troponin clearance by the kidneys Continuous telemetry monitoring No chest pressure 08/27 (5) Hypoxia: Plan: Patient is not on supplemental oxygen at baseline CXR revealed cardiomegaly with pulmonary vascular congestion; L>R pleural effusions Likely from pleural effusions and acute on chronic HFpEF Continue Lasix and volume management with dialysis Weaned down to room air (6) (HFpEF) heart failure with preserved ejection fraction: Plan: Last echo on 02/15/2023 revealed LVEF >70% and severe aortic stenosis. Caution preload dependence/overdiuresis Continue Lasix 80mg BID fluid management also with HD (7) Aortic stenosis: Plan: moderate-severe on last ECHO follow as outpt (8) Anemia of chronic disease: Plan: from ESRD but also had GAVE with GI bleed a few weeks ago requiring PRBC transfusion CBC daily Continue PPI bid Hemoglobin very slowly downtrending, 9.3 without indication for repeat transfusion 08/27 (9) Atrial fibrillation and flutter: Plan: paroxysmal, none here thus far not on AV jolie andrae or anticoagulation due to h/o GAVE nd GI bleeding monitor on tele Plan Chronic stable conditions - CAD - continue statin - Mobitz type 1 - seen by cardiology previous, not a pacer candidate , asymptomtic - Hypothyroidism-continue levothyroxine Disposition: continued inpatient stay. Patient with recent admission is currently requesting home although OT recommending rehab. PT evaluation is pending. VTE PPx: Hold chemical DVT PPx in the setting of GAVE/anemia Admission and Anticipated Discharge Date Admission Date: August 25, 2023 Subjective "My legs are way down" Still feels weak, but improving compared to coming in. Would like to go home and does not wish to pursue rehab even though recommended to her by occupational therapy Cough has improved, but not resolved Some pressure dialysis "it took all my Helsel away "and feels this has made her weaker. Did discuss further about the role of dialysis, she expresses that it is worth it for the time it brings her with her grandchildren but it is frustrating when the dialysis itself makes her miss things with them or takes her away from them. She reports she knows some people who have chosen to stop dialysis and some of whom have passed relatively quickly, she does not wish to make that choice but is just frustrated with dialysis today. She reports her urine looks clear now "coming in it was "worse than tea" Physical Exam Physical Exam: General: A&Ox3. NAD. Cooperative. HEENT: Atraumatic, normocephalic. Dialysis catheter in place at upper right chest. No surrounding warmth/erythema Pulm: Diminished but grossly without wheezes/rales/rhonchi Symmetrical chest rise. No increased work of breathing. No respiratory distress. Cardiac: RRR, +sm. Radial pulses intact and symmetrical. Abdominal: Nontender, soft Extremities: No pitting edema today. Very trace pinkness bilaterally without overt erythema/warmth : Johnson catheter draining very small amount of light yellow Results & Data Results & Data Vital Signs (Past 12 Hours) Vital Signs Temp Pulse Pulse Resp BP BP BP 08/28/23 12:25 36.4 C L 79 136/60 08/28/23 12:00 87 107/55 L 08/28/23 11:30 77 116/60 08/28/23 11:00 70 115/55 L 08/28/23 10:30 74 118/61 08/28/23 10:00 75 105/55 L 08/28/23 09:30 75 111/56 L 08/28/23 09:11 75 129/56 L 08/28/23 09:05 36.6 C 78 08/28/23 09:00 70 08/28/23 07:36 36.7 C 73 18 130/60 Pulse Ox O2 Del Method 08/28/23 12:25 08/28/23 12:00 08/28/23 11:30 08/28/23 11:00 08/28/23 10:30 08/28/23 10:00 08/28/23 09:30 08/28/23 09:11 08/28/23 09:05 08/28/23 09:00 08/28/23 07:36 97 Room Air PG Care Time/CCT Total # of Minutes Spent Total Time Spent with Patient: Total time spent is greater than 50% in coordination of care (as documented) at patient's floor/unit and/or counseling patient: Coding Level of Care Code 86544 SUB INP/OBS CARE 3/50MIN Diagnoses Sepsis A41.9 ESRD (end stage renal disease) on dialysis N18.6; Z99.2 Lower extremity cellulitis L03.119 Elevated troponin R77.8 Hypoxia R09.02 (HFpEF) heart failure with preserved ejection fraction I50.30 Aortic stenosis I35.0 Anemia of chronic disease D63.8 Atrial fibrillation and flutter I48.91; I48.92
[2023-08-28] MEDS: VANCOMYCIN HCL 750 MG in SODIUM CHLORIDE 0.9% 250 ML IV SCH (17:14)
[2023-08-28] MEDS: LOPERAMIDE HCL 2 MG CAP PO PRN (20:04)
[2023-08-29 05:41] LABS: Hematocrit (blood only) 30.7 % (37.0-47.0); Hemoglobin 9.7 g/dl (12.0-16.0); Mean Corpuscular Hgb Conc 31.6 g/dL (32.0-36.0); Mean Corpuscular Volume 79.1 fL (80.0-100.0); Mean Platelet Volume 11.1 fL (9.4-12.4); Platelet Count 134 K/uL (130-400); RDW Coefficient of Variation 16.8 % (11.5-14.5); RDW Standard Deviation 47.4 fL (36.4-46.3); Red Blood Count 3.88 M/uL (4.20-5.40)
[2023-08-29 06:16] LABS: BUN Creatinine Ratio 7.8 (10-20); Calcium 7.3 mg/dl (8.6-10.3); Creatinine Clr Calc Pharmacy 6.5 ml/min; Est GFR (African American) 8.8 ml/min; Est GFR (Non-African American) 7.6 ml/min; Potassium 3.2 mmol/L (3.5-5.1)
--- NOTE | 2023-08-29 07:53 | Pharmacy Report ---
Pharmacy PK ABX Note - Date of Service August 29, 2023 - Assessment and Plan Assessment 08/28: Day 4 Vancomycin & Zosyn. No HD today, pt does have minimal UO. Treating multifactorial infection (pneumonia/SST/UTI), continue vancomycin for now per hospitalist. 08/27: Reviewed vancomycin level, level within goal range (15-20mcg/mL), will redose 750mg x1 today following hemodialysis per [facility] Pharmacokinetic dosing protocol in with pre-HD levels. MRSA nares negative, treating multifactorial infection (pneumonia/SST/UTI) continue vancomycin for now per hospitalist. 08/26: 83 year old F receiving VANCOMYCIN/ZOSYN for treatment of pneumonia/UTI. Pertinent microbiologic data includes: Negative MRSA Nasal Swab, blood cultures NG x48 hours, and urine culture growing probable skin chandra. ESRD on HD TuThSa, history of VRE in urine 2018. Plan Vancomycin * Random level obtained 08/29/23 resulted as 20.1 mcg/mL. This is predicted to achieve target AUC/MYNOR of 400-600 mg/L.hr * Random level ordered for tomorrow morning with AM labs, prior to scheduled HD. Re-dose vancomycin after HD tomorrow. * Reduce monitoring frequency to only pre-dialysis after today. Zosyn 4.5g IV Q12H for CrCl < 20ml/min Pharmacy will continue to follow and will adjust dose/frequency as necessary. Thank you. Pharmacy has transitioned to AUC monitoring for vancomycin. AUC/MYNOR is the preferred PK/PD target and is associated with decreased risk of nephrotoxicity compared to traditional trough targets.
--- NOTE | 2023-08-29 07:59 | Hospitalist Progress Note ---
Date of Service August 29, 2023 Assessment & Plan (1) Lower extremity cellulitis: Plan: Patient initially presented for fever, lethargy, and confusion on the morning of 08/24 On initial assessment, concern for UTI, PNA, and lower extremity cellulitis Suspect respiratory symptoms are secondary to volume overload in the setting of ESRD on HD UA positive on arrival Patient's erythema and pain have completely resolved Blood cultures remain NGTD Main concern at this time is infection secondary to cellulitis Continue Zosyn 4.5 g IV q8h and recommend transitioning to Augmentin 24-hour dosing to be given after her dialysis on dialysis days Augmentin 500mg IV q24h if patient is able to tolerate Still awaiting PT note, but OT recommends rehab; patient does not wish to pursue rehab at this time but is amenable to home health Will plan to discharge patient on Augmentin 500 mg p.o. q24h to be taken after her dialysis sessions on /Sun (2) Sepsis: Plan: Sepsis due to pneumonia and/or UTI, PNA Acute onset of fever, lethargy, and confusion the morning of 08/24. UA w/ significant pyuria but no bacteria and Ur cx negative. Bilat leg L>R erythema/warmth on admission but also in the setting of swelling and improved proportional to what. Also with possible PNA given CXR and reports of productive cough at home prior to admission. Pro-Earl was elevated, but this is limited by her ESRD and may have been artificially elevated. Given underlying comorbidity, fevers, and symptoms that would be consistent with pneumonia, was recommended for conservative treatment with broad antibiotics including MRSA and pseudomonal coverage. Limited oral options, especially given baseline QT prolongation Blood cxs remain NGTD and fevers have resolved Day 0 of antibiotics 08/25/2023. Continue Vancomycin and Zosyn for broad coverage for cellulitis and PNA. Has a history of pseudomonal infection. dialysis dependent MRSA swab neg but prefer to keep Vanco going while inpt due to increased risk Patient feels greatly improved 08/27, although tired and still weak post-dialysis session. "Legs are finally skinny again ". On exam minimal to no pitting edema, erythema dramatically improved bilaterally compared to prior reports. CBC, BMP trended Unclear source and has a history of Pseudomonas with Cipro/Levaquin limited due to QT prolongation. Overall however she is making excellent progress Does continue to have weakness and OT recommending rehab although patient does not wish to pursue this and would like to go home if possible. PT remains pending. (3) ESRD (end stage renal disease) on dialysis: Plan: HD on Sunday//Sunday Nephrology consulted for inpatient dialysis Anemia of chronic disease; Hgb 9.7 on 08/28, continue to trend CBC Resume Sevelamer with meals Continue lasix Patient did express an extreme frustration with dialysis 08/27 and that she "hate, hate, hates it". On further discussion she agrees that while she does hate it, that the time it brings is worth it for her to have calls or be with her children/grandchildren and would not want to forego dialysis if she were to rapidly decline although she knows some people who made the choice to do that. She does however feel like she had a significant increase in fatigue when she started dialysis and this has been very frustrating for her. (4) (HFpEF) heart failure with preserved ejection fraction: Plan: Last echo on 02/15/2023 revealed LVEF >70% and severe aortic stenosis. Caution preload dependence/overdiuresis Continue Lasix 80mg BID fluid management also with HD Patient was mildly hypoxic on arrival (likely secondary to pleural effusions) but this has resolved (5) Atrial fibrillation and flutter: Plan: Paroxysmal; none here thus far Not on AV jolie andrae or anticoagulation due to h/o GAVE nd GI bleeding Continuous telemetry monitoring (6) Elevated troponin: Plan: Troponin elevated to 87.1-->94.4 and then back down, no CP, no ischemic changes on ECG Clinically patient denies chest pain/pressure Suspect demand ischemia and poor troponin clearance by the kidneys Continuous telemetry monitoring No chest pressure 08/27 Plan Chronic stable conditions - CAD - continue statin - Mobitz type 1 - seen by cardiology previous, not a pacer candidate , a symptomtic - Hypothyroidism-continue levothyroxine Disposition: continued inpatient stay. Patient with recent admission is currently requesting home although OT recommending rehab. PT evaluation is pending. VTE PPx: Hold chemical DVT PPx in the setting of GAVE/anemia Admission and Anticipated Discharge Date Admission Date: August 25, 2023 Subjective Patient is sitting upright in bed and reports no new medical concerns today. She reports she had a BM yesterday, has been eating and drinking well, and has been up and walking to the bathroom with her walker without difficulty. She feels ready for discharge, and reports she is amenable to home health; she declines rehab placement. She is unsure if PT has evaluated her yet. She reports her legs look very "skinny" unlikely did when she initially arrived. Review of Systems Review of Systems: See HPI above Physical Exam Physical Exam: General: no acute distress; pleasant affect; non-toxic appearing; cooperative; SpO2 96% on RA HEENT: normocephalic, atraumatic; no scleral icterus; vision and hearing intact Neck: supple; no lymphadenopathy; trachea midline Skin: Warm to touch; dry without signs of tenting; no cyanosis; no rashes, bruising, or lesions noted CV: chest wall NTP; port on the right upper chest wall without signs of erythema, drainage, or infection; RRR; S1/S2 normal; 5/6 systolic ejection murmur auscultated at the second ICS MCL with radiation to the carotids; pulses intact and symmetric at radial, DP, and PT Lungs: no acute respiratory distress; symmetrical chest wall expansion; clear breath sounds across all lung phan w/o adventitious sounds; no wheezing ABD: Soft, NTP; BS present; no rebound/guarding; no distention; negative suprapubic tenderness MSK: no tics or fasciculations LEs: Lower extremities are without edema bilaterally; the RLE is mildly erythematous and warm to touch circumferentially around the right lower ankle extending to the mid calf; nonpurulent Neuro: A&Ox3; normal mood and affect; fluent speech; no focal deficits; sensation grossly intact in the LEs b/l Results & Data Results & Data Vital Signs (Past 12 Hours) Vital Signs Temp Pulse Pulse Resp BP Pulse Ox O2 Del Method 08/29/23 02:03 36.8 C 80 16 105/64 97 Room Air 08/28/23 23:02 36.3 C L 82 16 113/67 96 Room Air 08/28/23 23:00 79 08/28/23 20:00 Room Air Laboratory Results Abnormal lab results 08/29/23 Range/Units 05:22 RBC 3.88 L (4.20-5.40) M/uL Hgb 9.7 L (12.0-16.0) g/dl Hct 30.7 L (37.0-47.0) % MCV 79.1 L (80.0-100.0) fL MCHC 31.6 L (32.0-36.0) g/dL RDW Std Deviation 47.4 H (36.4-46.3) fL RDW Coeff of Irasema 16.8 H (11.5-14.5) % Sodium 134 L (136-145) mmol/L Potassium 3.2 L (3.5-5.1) mmol/L BUN 38 H (6-23) mg/dl Creatinine 4.85 H* D (0.6-1.2) mg/dl BUN/Creatinine Ratio 7.8 L (10-20) Glucose 125 H (70-99(Fasting)) mg/dl Calcium 7.3 L (8.6-10.3) mg/dl Random Vancomycin 20.1 H (10-20) mcg/ml PG Care Time/CCT Total # of Minutes Spent Total Time Spent with Patient: Total time spent is greater than 50% in coordination of care (as documented) at patient's floor/unit and/or counseling patient: [place] [address] SUB INP/OBS CARE 3/50MIN Patient Type Established Medical Decision Making High Complexity Diagnoses Lower extremity cellulitis L03.119 Sepsis A41.9 ESRD (end stage renal disease) on dialysis N18.6; Z99.2 (HFpEF) heart failure with preserved ejection fraction I50.30 Atrial fibrillation and flutter I48.91; I48.92 Elevated troponin R77.8
--- NOTE | 2023-08-29 08:52 | Nephrology Progress Note ---
Date of Service August 29, 2023 Assessment & Plan (1) ESRD (end stage renal disease) on dialysis: Plan: * Volume status and electrolyte balance are acceptable. No acute indication for HD today * Outpatient HD Rx: [facility] TTS, 3hr, 3K 2.5Ca F-180NR, EDW 61 kg, R IJ TCC * If discharge is anticipated, please have patient resume outpatient HD at [facility] tomorrow (2) Anemia of chronic disease: Plan: * Maintained on Micera 200 Q 2 weeks as outpatient. * Monitor H&H (3) GAVE (gastric antral vascular ectasia): Plan: * Hold heparin on HD due to h/o GAVE requiring multiple blood transfusions. (4) Acute UTI: Plan: * 08/25/23 urine culture is negative * Remains on Zosyn for UTI and possible cellulitis (5) Hypoxia: Plan: * Improved after challenging EDW on HD * Severe and recent weight loss are likely contributing factors * Remains on furosemide to encourage urine output (6) Physical deconditioning: Plan: * Consider d/c Johnson * Advance activity as tolerated Admission and Anticipated Discharge Date Admission Date: August 25, 2023 Subjective Ms. Ray was evaluated in her hospital room this morning. She was breathing comfortably flat in bed on RA. She hopes to return home soon. Review of Systems Constitutional: no fever Eyes: no problem reported Ear, Nose, Mouth, Throat: no problem reported Respiratory: no cough and no dyspnea Cardiovascular: no chest pain Gastrointestinal: no abdominal pain, no nausea, no vomiting and no diarrhea/loose stools Genitourinary: no dysuria and no flank pain Physical Exam Constitutional: not in distress Eyes: PERRL, conjunctivae normal, anicteric sclerae ENMT: external ear and nose normal, oropharynx normal Neck: trachea midline, no thyromegaly Respiratory: normal respiratory effort, lungs clear to auscultation Cardiovascular: RRR, no murmur, no edema Gastrointestinal (Abdomen): normal bowel sounds, soft, nontender, no hep atosplenomegaly Skin: no rashes, warm and dry Neurologic: Speech / Cognition: normal speech and normal cognition Psychiatric: Affect: euthymic affect Results & Data Vital Signs (Past 12 Hours) Vital Signs Temp Pulse Pulse Resp BP Pulse Ox O2 Del Method 08/29/23 08:05 36.7 C 71 18 128/75 96 Room Air 06/26/24 08:00 71 08/29/23 02:03 36.8 C 80 16 105/64 97 Room Air 08/28/23 23:02 36.3 C L 82 16 113/67 96 Room Air 08/28/23 23:00 79 Laboratory Results Laboratory Results - last 24 hr 08/29/23 05:22 WBC 4.90 RBC 3.88 L Hgb 9.7 L Hct 30.7 L MCV 79.1 L MCH 25.0 MCHC 31.6 L RDW Std Deviation 47.4 H RDW Coeff of Irasema 16.8 H Plt Count 134 MPV 11.1 Sodium 134 L Potassium 3.2 L Chloride 102 Carbon Dioxide 23 Anion Gap 9 BUN 38 H Creatinine 4.85 H* D Est Cr Clr Drug Dosing 6.5 Est GFR ( Amer) 8.8 Est GFR (Non-Af Amer) 7.6 BUN/Creatinine Ratio 7.8 L Glucose 125 H Calcium 7.3 L Random Vancomycin 20.1 H PG Care Time/CCT Total # of Minutes Spent Total Time Spent with Patient: Total time spent is greater than 50% in coordination of care (as documented) at patient's floor/unit and/or counseling patient: Coding Level of Care Code 27804 SUB INP/OBS CARE 3/50MIN Diagnoses ESRD (end stage renal disease) on dialysis N18.6; Z99.2 Anemia of chronic disease D63.8 GAVE (gastric antral vascular ectasia) K31.819 Acute UTI N39.0 Hypoxia R09.02 Physical deconditioning R53.81
[2023-08-29] MEDS: POTASSIUM CHLORIDE CRTAB 20 MEQ TABCR PO ONE (09:55)
[2023-08-29 10:10] LABS: C Reactive Protein 1.91 mg/dl (0-0.5)
--- NOTE | 2023-08-29 14:28 | Discharge Summary ---
Date of Service August 29, 2023 Admission HPI Per Admitting Provider Sully is an 83-year-old female with PMH of ESRD on dialysis (), severe aortic stenosis, Mobitz type I second-degree AV block, palliative care, T2DM, gastroparesis, neurogenic bladder, cirrhosis, HFpEF, CAD, GAVE, anxiety, and CVA. She presented via EMS on 08/24 for lethargy, confusion, and fever. Patient had a auto parts delivery driver arrive this morning to transport her to dialysis, but she did not open the door like she usually does. Patient's daughter was called. Patient's daughter is at bedside and provides additional history. She reports that she does not live with her mother, and that she left the house around 7 PM the night before and the patient was fine. When she returned around 7:30 AM this morning, the patient's eyes were glassy and she was febrile. She usually gets up and goes to dialysis on her own, but not today. Patient's daughter reports that she could not get up or walk today. Patient was also "breathing fast" at rest. She is still producing urine, but not so much. The urine has been dark brown since last night. Patient is below her dry weight, and daughter reports that she has not been eating as much recently. Daughter also reports a new erythema on her lower extremities bilaterally, which she had not noticed before. Patient is not currently on blood thinners. She did not take her regular morning medication today. No recent change medications besides Tradjenta. She is not on supplemental oxygen at baseline. No CPAP at night. No sick contacts to her knowledge. She denies smoking, tobacco use, and recent alcohol use. Patient is febrile at 37.9 C at time admission; SpO2 97% on 2 L NC. ED course: Doxycycline 100 mg IV Ceftriaxone 2000 mg IV Potassium chloride 20mEq p.o. NSS 1000 mL IV ROS: Patient endorses fever, lethargy, SOB at rest, wheezing this morning, productive cough (green/creamy yellow sputum production; which is normal for her when she wakes up), and chronic loose stool/diarrhea (takes immodium). Patient denies chills, night-sweats, dizziness, lightheadedness, MURILLO, rashes, tick bites, chest pain, chest palpitation, hemoptysis, pleuritic CP, abdominal pain, N/V, dysuria, burning with urination, or pain/numbness/tingling in the arms or legs. Principal Diagnosis Lower extremity cellulitis Discharge Exam General: no acute distress; pleasant affect; non-toxic appearing; cooperative; SpO2 96% on RA HEENT: normocephalic, atraumatic; no scleral icterus; vision and hearing intact Neck: supple; no lymphadenopathy; trachea midline Skin: Warm to touch; dry without signs of tenting; no cyanosis; no rashes, bruising, or lesions noted CV: chest wall NTP; port on the right upper chest wall without signs of erythema, drainage, or infection; RRR; S1/S2 normal; 5/6 systolic ejection murmur auscultated at the second ICS MCL with radiation to the carotids; pulses intact and symmetric at radial, DP, and PT Lungs: no acute respiratory distress; symmetrical chest wall expansion; clear breath sounds across all lung phan w/o adventitious sounds; no wheezing ABD: Soft, NTP; BS present; no rebound/guarding; no distention; negative suprap ubic tenderness MSK: no tics or fasciculations LEs: Lower extremities are without edema bilaterally; the RLE is mildly erythematous and warm to touch circumferentially around the right lower ankle extending to the mid calf; nonpurulent Neuro: A&Ox3; normal mood and affect; fluent speech; no focal deficits; sensation grossly intact in the LEs b/l Discharge Data Allergies Allergy/AdvReac Type Severity Reaction Status Date / Time sulfamethoxazole AdvReac Unknown REMOTE Verified 08/15/23 10:56 [From Bactrim] HX/PT NOT SURE REACTION trimethoprim [From Bactrim] AdvReac Unknown REMOTE Verified 08/15/23 10:56 HX/PT NOT SURE REACTION Consultations 08/25/23 11:07 ED Decision to Admit Stat 08/25/23 12:23 Consult Nephrology Routine Ordered Studies 08/25/23 11:35 US venous doppler [facility] Hospital Course (1) Lower extremity cellulitis: Patient initially presented for fever, lethargy, and confusion on the morning of 08/24 On initial assessment, concern for UTI, PNA, and lower extremity cellulitis Suspect respiratory symptoms are secondary to volume overload in the setting of ESRD on HD UA positive on arrival Patient's erythema and pain have completely resolved Blood cultures remain NGTD Main concern at this time is infection secondary to cellulitis Patient reports she is not amenable to rehab, but is amenable to home health care Will plan to discharge patient on home health care Zosyn de-escalated --> Augmentin 500 mg p.o. q24h x 7 days; to be taken after her dialysis sessions on (2) Sepsis: Patient was reported to be septic secondary to PNA/UTI Negative lactate on arrival; no leukocytosis over hospital course; vitals stable except for one recorded temperature of 37.9 C on arrival Procalcitonin was mildly elevated at 0.63 on arrival, but this was limited by her ESRD and may have been artificially elevated Given underlying comorbidities and fever, she was treated with broad-spectrum IV antibiotics (vancomycin and Zosyn) Blood cultures show NGTD Clinically, low suspicion for sepsis Will de-escalate antibiotics (as above) (3) ESRD (end stage renal disease) on dialysis: HD on Sunday//Sunday Patient should plan on returning to dialysis tomorrow on 08/29 Anemia of chronic disease; Hgb 9.7 on 08/28 Sevelamer TID --> calcium acetate TID (4) (HFpEF) heart failure with preserved ejection fraction: Last echo on 02/15/2023 revealed LVEF >70% and severe aortic stenosis. Caution preload dependence/overdiuresis moving forward Continue Lasix 80mg BID Fluid management also with HD Patient was mildly hypoxic on arrival (likely secondary to pleural effusions) but this has resolved (5) Atrial fibrillation and flutter: Paroxysmal; none here thus far Not on AV jolie andrae or anticoagulation due to h/o GAVE nd GI bleeding (6) Elevated troponin: 87.1-->94.4-->68.2 on arrival; no CP; no ischemic changes on ECG No chest pain/pressure, SOB, or pleuritic CP on 08/28 Suspect demand ischemia and poor troponin clearance by the kidneys Plan Patient is sitting upright in bed and reports no new medical concerns today. She reports she had a BM yesterday, has been eating and drinking well, and has been up and walking to the bathroom with her walker without difficulty. She feels ready for discharge, and reports she is amenable to home health; she declines rehab placement. She is unsure if PT has evaluated her yet. She reports her legs look very "skinny" unlikely did when she initially arrived. Plan is to discharge home today on p.o. antibiotics and home health care Total Time Total Time Spent Total Time Spent (In Minutes): 30 Discharge Plan Discharge Items Patient Disposition: Home - Home Health Services Reason For Visit: LETHARY, FEVER Discharge Diagnosis: Lower extremity cellulitis Activity: Resume your previous activity Non-emergency contact: Primary Care Provider and Owner [employer] Call non-emergency contact if: your symptoms worsen, you have a fever and your temperature is above 101 Follow-up/Referrals: Agatha Alfaro DO [Primary Care Provider] - 09/19/23 10:00 am (Hospital follow up scheduled September 18 at 10:00 with SLOANE Daly) Kaylan Will MD [Physician] - 09/14/23 1:15 pm (Hospital follow up scheduled September 13 at 1:[address] Burroughs at the [facility].) Diet: Dialysis Renal Addtl Attending Provider Instructions: You were admitted to the hospital on 08/24 for acute fever and lethargy. On hospital admission, there was concern for a UTI, lower leg cellulitis, and respiratory distress secondary to pneumonia. Your initial x-ray showed fluid buildup around your lungs, and it is likely that your cough and increased oxygen demands were due to this fluid buildup in the setting of congestive heart failure. You were treated with IV antibiotics (Zosyn and vancomycin) to cover your lungs, urinary tract, and legs for infection. Your CRP (which is a biomarker taken from blood to assess for inflammation) has been trending in the right direction and we feel that at this time you are safe to be discharged home on oral antibiotics. Upon hospital discharge, we will prescribe Augmentin 500 mg to be taken by mouth once daily. This pill is an antibiotic, and may cause some stomach discomfort and diarrhea. On days when you have dialysis, you should take this pill after your dialysis session is completed. Please return to the hospital if you develop new or worsening symptoms (which i ncludes - but is not limited to - new onset fever, trouble breathing, chest pain, vomiting, burning with urination, pain with urination, or worsening redness/pain in your legs). Please reach out with any questions or concerns. Pending Studies at Discharge: No Stand-Alone Forms: [employer] thinking[employer], Smoking Cessation Medications and DC Order Prescriptions: New amoxicillin-pot clavulanate [Augmentin] 500-125 mg tablet 1 tab PO DAILY Qty: 7 0RF Rx Instructions: Take 1 tablet by mouth daily; take after dialysis on dialysis days Continued bethanechol chloride 50 mg tablet 50 mg PO BID Qty: 180 3RF (DME) Fitted Briefs X-Large Misc See Rx Instructions .Route Qty: 150 5RF Rx Instructions: using 4-5 per day R19.7 levothyroxine 150 mcg capsule 150 mcg PO QAM Qty: 90 1RF furosemide 80 mg tablet 80 mg PO BID Qty: 180 1RF pantoprazole [Protonix] 40 mg tablet,delayed release (DR/EC) 40 mg PO BID Qty: 60 5RF triamcinolone acetonide 0.5 % cream 1 applic topical BID PRN (Reason: skin irritation) Qty: 60 1RF sertraline 50 mg tablet 50 mg PO DAILY Qty: 30 2RF methocarbamol 500 mg tablet 500 mg PO TID PRN (Reason: muscle spasm) Qty: 90 1RF tramadol 50 mg tablet 50 mg PO BID PRN (Reason: Pain) Qty: 60 0RF atorvastatin [Lipitor] 10 mg tablet 10 mg PO HS Qty: 90 1RF calcium acetate 667 mg tablet 667 mg PO TID famotidine 40 mg tablet 40 mg PO BID Qty: 60 2RF fluticasone propionate [Flonase Allergy Relief] 50 mcg/actuation spray,suspension 1 spray intranasal DAILY Qty: 16 2RF Rx Instructions: administer into each nostril cholecalciferol (vitamin D3) [Vitamin D3] 1,000 unit Capsule 2,000 unit PO QAM loperamide 2 mg Capsule 2 mg PO UD PRN (Reason: Diarrhea) Rx Instructions: administer after each loose stool until symptoms controlled; do not exceed 8 mg per 24 hrs estradiol 0.01 % (0.1 mg/gram) cream 1 applic VAGINAL 3XWK PRN (Reason: ONLY WHEN BURNING) nystatin 100,000 unit/gram powder 1 applic TOPICAL BID PRN (Reason: IRRITATION) cyanocobalamin (vitamin B-12) [Vitamin B-12] 1,000 mcg tablet 1,000 mcg PO QAM ropinirole 0.5 mg tablet 0.5 mg PO UD Rx Instructions: Take 1 tab PO AM, 3 tabs PO QHS; Cavilon Durable Barrier 1.3 % cream 1 applic topical DAILY PRN (Reason: skin irritation) Rx Instructions: as needed for skin protection calcium carbonate-vitamin D3 [Calcium 600 + D(3)] 600 mg-10 mcg (400 unit) Tablet 1 tab PO DAILY omega-3 fatty acids 1,000 mg Capsule 1,000 mg PO DAILY Discharge Orders: Discharge Order (Routine); Ordered 08/29/23 Ordered By: Rohit Solano Admission Data Admit Date/Time: 08/25/23 11:34 Attending Provider: Chris West Admit Provider: Soren Sue Primary Care Provider: Agatha Alfaro Other Providers: Soren Sue; Luke Villarreal; Christiano Oconnell [facility] Other Interventions: Discharge Summary Assessment (RN) Last Done: 08/29/23 13:25 Coding [place] [address] INP/OBS DISCH >30 MIN Patient Type Established Medical Decision Making Moderate Complexity Diagnoses Lower extremity cellulitis L03.119 Sepsis A41.9 ESRD (end stage renal disease) on dialysis N18.6; Z99.2 (HFpEF) heart failure with preserved ejection fraction I50.30 Atrial fibrillation and flutter I48.91; I48.92 Elevated troponin R77.8
[2023-08-30] MEDS ORDERED: SODIUM CHLORIDE 0.9% 1,000 ML IV PRN (07:00)
[2023-08-30] MEDS ORDERED: EPOETIN ALFA 10,000 UNITS/ML VIAL IV SCH (07:00)
== END 2023-08-29 16:05 | disposition home health service (06) | DRG 871 ==
LOC: ED 07:57 → EDINP 11:34 → SUATTDRO 11:34 → 2S 17:32

== ENCOUNTER 2023-10-30 04:46 | Inpatient (IN) ==
[2023-10-30 05:26] LABS: Basophils # (auto) 0.03 K/uL (0.00-0.20); Basophils % (auto) 0.7 %; Eosinophils # (auto) 0.05 K/uL (0.00-0.50); Eosinophils % (auto) 1.1 %; Hematocrit (blood only) 24.6 % (37.0-47.0); Hemoglobin 7.4 g/dl (12.0-16.0); Immature Granulocytes # (auto) 0.01 K/uL (0.01-0.20); Immature Granulocytes % (auto) 0.2 %; Lymphocytes # (auto) 0.45 K/uL (1.20-3.40); Lymphocytes % (auto) 10.2 %; Mean Corpuscular Hemoglobin 27.5 pg (25.0-34.0); Mean Corpuscular Hgb Conc 30.1 g/dL (32.0-36.0); Mean Corpuscular Volume 91.4 fL (80.0-100.0); Monocytes # (auto) 0.34 K/uL (0.11-0.59); Monocytes % (auto) 7.7 %; Neutrophils # (auto) 3.52 K/uL (1.40-6.50); Neutrophils % (auto) 80.1 %; Platelet Count 178 K/uL (130-400); RDW Coefficient of Variation 18.7 % (11.5-14.5); RDW Standard Deviation 63.1 fL (36.4-46.3); Red Blood Count 2.69 M/uL (4.20-5.40)
--- NOTE | 2023-10-30 05:31 | Emergency Department Note ---
Impression & Plan Bilateral edema of lower extremity, Shakiness, Anemia, CKD (chronic kidney disease) ED Provider Note ED Provider Note NAME: NIURKA QUIÑONES AGE:83 SEX: Female : 1940 ARRIVES VIA: EMS INFORMANT: Patient ED PROVIDER(s): Kath Dubose DO CHIEF COMPLAINT: Leg swelling, shakiness HPI: This is an 83-year-old female who presents emergency department via EMS due to daughter's concern for lower extremity edema. When patient is asked why she is here she states is because she feels shaky a lot, worse after dialysis. She states she had not noticed any worsening swelling but does admit to a recent history of leg swelling. Patient does have chronic kidney disease and takes dialysis Sunday, , and Sunday. She states her archives director is Dr. Vazquez. She denies missing or skipping any dialysis treatments. She denies any change in her medications. She denies any recent fevers, chills, chest pain, shortness of breath, abdominal pain, or recent URI symptoms. PAST MEDICAL HISTORY:See Below PAST SURGICAL HISTORY:See Below FAMILY HISTORY:See Below SOCIAL HISTORY:See Below HOME MEDICATIONS:See Below ALLERGIES:See Below VITALS:See Below PHYSICAL EXAMINATION: GENERAL: alert, well appearing, well nourished, no distress, non-toxic EYE EXAM: normal conjunctiva, PERRL and EOM's grossly intact OROPHARYNX: no exudate, no erythema, lips, buccal mucosa, and tongue normal and mucous membranes are moist NECK: supple, no nuchal rigidity, no adenopathy, non-tender LUNGS: Clear to auscultation. Normal chest wall mechanics, no w/r/r HEART: no murmurs, S1 normal and S2 normal, HD catheter noted in the right superior anterior chest wall ABDOMEN: abdomen soft, non-tender, normo-active bowel sounds, no masses, no rebound or guarding. BACK: Back is symmetrical on inspection and there is no deformity, no midline tenderness, no CVA tenderness. SKIN: no rashes, petechiae, orbruising UPPER EXTREMITIES: upper extremities are grossly normal. FROM, nml pulses b/l. LOWER EXTREMITIES: 1+ b/l pitting edema. Mild erythema noted anteriorly to the distal bilateral lower extremities, left greater than right, FROM, nml pulses b/l. NEURO EXAM: Normal sensorium, cranial nerves II-XII grossly intact, normal speech, no facial droop,nogross weakness of arms, no gross weakness of legs. Gross sensation intact. No ataxia. Vital Signs: reviewed and remarkable Differential Diagnosis: cellulitis, dvt, chf, lymphedema, caren, electrolyte abnormality, anxiety, dysrhythmia, occult infection, as well as others were considered MEDICAL DECISION MAKING: This is an 84 yo female who presents to the ER due to concern for fatigue and shakiness and daughters concern for LE edema given recent admission with B/L LE cellulitis. Labs drawn and sent, IV established, EKG and CXR performed and interpreted at bedside, and patient placed on telemetry. Patient due for HD today. Chest xray with increased pulm edema and pleural effusion compared to prior. LE edema noted, no overt signs of cellulitis. Patient noted to have worse anemia compared to prior also. Other labs consistent with her CKD. Significant time at bedside discussion results and options for disposition with the patient. She initially was reluctant to allow me to call her daughter. Unfortunately her regular archives director wasn't regional medical director and she eventually allowed me to contact the daughter. The daughter also spoke with her mother at bedside and patient is no is agreement with plan for additional inpatient evaluation and mgmt. Case discussed with the hospitalist team for additional evaluation and mgmt. Consultation(s): 0805: Discussed with Dr. Guzman, [place] hospitalist team, for additional evaluation and mgmt. ER Treatment Provided: See below 0708: Discussed all results with patient at length. Discussed concern for worsening anemia, potential for repeat cellulitis, and need for dialysis today. Patient offered admission and she declined stating she would like to go to dialysis today and then go home. I did discuss risks given her complex past medical history. Patient verbalized understanding of this. I did discuss contacting family who checks up on her and she was in agreement. Call placed to patient's daughter, Cher, voicemail left. 0730: Discussed with pt's daughter. Daughter feels she should be admitted also and notes her blood counts are lower than usual and she may benefit from a unit of blood. She has a hx of GAVE and has intermittent bleeding and is scheduled to see GI again at [facility] on 11/12/23. Cell phone for Cher: [phone]. Diagnostics Interpreted By Me: -ECG: A-fib at 70, right bundle branch block, prolonged QTc, normal axis, nonspecific ST/T wave changes -Cardiac Monitoring: An order was placed for continuous cardiac monitoring. The monitor shows a rate of 70 with normal sinus rhythm. -Laboratory studies: As stated above and show below. -Imaging studies: cxr: b/l pleural effusion, +cm, no wide mediastinum, b/l pulmonary edema Triage Nursing Note Reviewed Prior/Outside Records Reviewed Past Med/Surg History Problem List (Updated 10/30/23 @ 15:49 by Bandar Guzman DO) Discharge planning issues DVT prophylaxis Pleural effusion CKD (chronic kidney disease) (Acute) Anemia (Acute) Shakiness (Acute) Bilateral edema of lower extremity (Acute) Physical deconditioning ESRD on dialysis (Acute) Ascites Aortic stenosis 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 Palliative care by specialist Pancytopenia Clostridioides difficile carrier Vitamin D deficiency (Chronic) Recurrent urinary tract infection 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 aguirre Osteoarthritis Hyperlipidemia History of CVA (cerebrovascular accident) (2019) ~5years ago, woke up with weakness in her rt hand; L lacunar infarct; previously on plavix>no residual effects Hiatal hernia GERD without esophagitis Fatty liver Essential tremor MINOR IN HAND Diabetic retinopathy Chronic hyponatremia Chronic diastolic heart failure CAD (coronary artery disease) Anxiety Anemia of chronic disease GAVE (gastric antral vascular ectasia) (Acute) Medical History Right wrist pain Generalized weakness Fatigue CKD (chronic kidney disease) CKD (chronic kidney disease) Sepsis Encephalopathy UTI (urinary tract infection) Lower extremity cellulitis Pleural effusion, bilateral Elevated brain natriuretic peptide (BNP) level Elevated troponin I level Pericardial effusion Elevated brain natriuretic peptide (BNP) level Non-ST elevation MD (NSTEMI) Pancytopenia Hemorrhoids History of recent hospitalization GI BLEED/LOW BLOOD COUNT/HX BLOOD TRANSFUSION - MAY 2022 - [facility] ESRD on hemodialysis tuesdays, , and saturdays currently Poor historian History of GI bleed hx 08/2021, given transfusion-per medical record REASON FOR UPCOMING PROCEDURE Hx of atrial fibrillation, no current medication per medical report History of renal dialysis , AND SAT ([facility] [place]/ACROSS FROM [facility]) ACCESS SITE RIGHT SIDE OF CHEST/ ? DETAILS Resistant hypertension Diabetes mellitus, type 2 Hearing deficit no hearing aids Urinary urgency Secondary hyperparathyroidism of renal origin First degree AV block Hypertension Hypothyroidism Surgical History History of esophagogastroduodenoscopy (EGD) multiple---last 08/01/2022 @ [facility] 04/06/22 at [facility] with Dr. Mich Pacheco- EGD- Gastric antral vascular ectasia with bleeding, treated with argon plasma coagulation (APC); Few angioectasias in the duodenum, treated with APC S/P pericardiocentesis 08/2021, [facility], w/dr moura Hx of cardiac catheterization 08/2021, [facility] w/Dr. Moura for increased cardiac pressures; no stents History of tooth extraction History of colonoscopy H/O varicose vein ligation S/P trigger finger release S/P knee replacement RT/LEFT History of bladder suspension procedure X 2 S/P carpal tunnel release RT/LEFT History of back surgery (04/2010) X 2 S/P hysterectomy [place] Family History Father Alcohol abuse Heart disease Myocardial infarction Hypertension Sister Pancreatic cancer Diabetes Breast cancer Brother Diabetes Alcohol abuse Stroke Other Cancer No family history of adverse response to anesthesia Denies family history of Ovarian cancer Prostate cancer Colorectal cancer Social History Smoking Status: Never smoker Second Hand Exposure: No; Do You Dip or Chew Tobacco: No; Hx Alcohol Use: No Hx Substance Use: No Preferred Language: [place] Citizen Communication Ability: Effective Visual Impairment: No Limitations Hearing Ability: Normal Diploma Maker Required: No Beliefs That Will Affect Care: None marital status: Single Current Living Situation: Alone Current Living Situation Comment: 1 story home with ramp to enter home current occupational status: retired How many Children do You have: 2 Feels Safe at Home: Yes Childhood Exposure to Second-Hand Smoke: No Diet: regular Diet Comment: regular caffeine: Yes (Coffee x 2 cups per day.) during the past year weight has: remained stable Dental Care, Regularly: No Physical Activity Frequency: Does not Exercise Seatbelt Use: always Sunscreen Use: Yes Assistive Devices: Walker and Wheelchair Allergies Allergies Allergy/AdvReac Type Severity Reaction Status Date / Time sulfamethoxazole AdvReac Unknown REMOTE Verified 11/01/23 11:20 [From Bactrim] HX/PT NOT SURE REACTION trimethoprim [From Bactrim] AdvReac Unknown REMOTE Verified 11/01/23 11:20 HX/PT NOT SURE REACTION Home Meds Home Medications Medication Instructions Recorded Confirmed cholecalciferol (vitamin D3) 25 2,000 unit PO QAM 05/29/18 11/01/23 mcg (1,000 unit) capsule (Vitamin D3) cyanocobalamin (vitamin B-12) 1,000 mcg PO QAM 11/12/20 11/01/23 1,000 mcg tablet (Vitamin B-12) loperamide 2 mg capsule 2 mg PO UD PRN Diarrhea 05/29/22 11/01/23 estradiol 0.01% (0.1 mg/gram) 1 applic vaginal 3XWK PRN ONLY 05/30/22 11/01/23 vaginal cream WHEN BURNING nystatin 100,000 unit/gram topical 1 applic topical BID PRN IRRITATION 07/10/22 11/01/23 powder calcium acetate 667 mg tablet 667 mg PO TID 07/06/23 11/01/23 calcium carbonate 600 mg-vitamin 1 tab PO DAILY 07/23/23 11/01/23 D3 10 mcg (400 unit) tablet (Calcium 600 + D(3)) omega-3 fatty acids 1,000 mg 1,000 mg PO DAILY 07/23/23 11/01/23 capsule dimethicone 1.3 % topical cream 1 applic topical DAILY PRN skin 08/25/23 11/01/23 (Cavilon Durable Barrier) irritation urjadwgdchqd-bpulppos-llxcejv-folic 1 tab PO DAILY 10/30/23 11/01/23 acid 400 mcg-vit K1 20 mcg tablet Previous Rx's Medication Instructions Recorded bethanechol chloride 50 mg tablet 50 mg PO BID #180 tabs 04/19/21 diaper,brief,adult,disposable #150 ea 12/07/21 (Fitted Briefs X-Large) furosemide 80 mg tablet 80 mg PO BID #180 tabs 05/28/23 pantoprazole 40 mg tablet,delayed 40 mg PO BID #60 tabs 06/27/23 release (Protonix) triamcinolone acetonide 0.5 % 1 applic topical BID PRN skin 07/03/23 topical cream irritation #60 grams famotidine 40 mg tablet 40 mg PO BID #60 tabs 07/06/23 sertraline 50 mg tablet 50 mg PO DAILY #30 tabs 07/09/23 fluticasone propionate 50 1 spray intranasal DAILY #16 grams 08/16/23 mcg/actuation nasal spray,suspension (Flonase Allergy Relief) atorvastatin 10 mg tablet (Lipitor) 10 mg PO HS #90 tabs 08/20/23 levothyroxine 150 mcg capsule 150 mcg PO QAM #90 caps 08/31/23 methocarbamol 500 mg tablet 500 mg PO TID PRN muscle spasm #90 09/20/23 tabs ropinirole 0.5 mg tablet 0.5 mg PO UD #90 tabs 09/20/23 tramadol 50 mg tablet 50 mg PO BID PRN Pain #60 tabs 10/29/23 Results & Data (ED) Vital Signs Vital Signs - 24 hr 10/30/23 04:53 10/30/23 04:59 10/30/23 05:06 Temperature 36.6 C Temperature Source Oral Pulse Rate 71 67 71 Pulse Rate [Apical] Pulse Rate from SpO2 Sensor 71 Pulse Rhythm Regular Pulse Strength Normal Respiratory Rate 22 16 Respiratory Effort / Characteristics Non-Labored Spontaneous Respiratory Depth Normal Respiratory Pattern Regular Blood Pressure 119/55 L 126/56 L Blood Pressure [Right Arm] Blood Pressure Mean 76 79 Blood Pressure Mean [Right Arm] Blood Pressure Position Sitting Pulse Oximetry 94 94 Oxygen Delivery Method Room Air Sepsis Recent Fever Within 48 Hours No Sepsis New/Unexplained Change in Mental Status N/A Sepsis Action Taken by Nursing No Action Required 10/30/23 05:33 10/30/23 07:10 Temperature Temperature Source Pulse Rate 69 Pulse Rate [Apical] 68 Pulse Rate from SpO2 Sensor 69 Pulse Rhythm Pulse Strength Respiratory Rate 18 20 Respiratory Effort / Characteristics Respiratory Depth Respiratory Pattern Blood Pressure 132/59 L Blood Pressure [Right Arm] 144/68 H Blood Pressure Mean 83 Blood Pressure Mean [Right Arm] 93 Blood Pressure Position Pulse Oximetry 96 98 Oxygen Delivery Method Room Air Sepsis Recent Fever Within 48 Hours Sepsis New/Unexplained Change in Mental Status Sepsis Action Taken by Nursing Laboratory Data 10/31/23 07:16 10/31/23 05:30 Lab Results 10/30/23 Range/Units 04:57 WBC 4.40 L (4.8-10.8) K/ul RBC 2.69 L (4.20-5.40) M/uL Hgb 7.4 L (12.0-16.0) g/dl Hct 24.6 L (37.0-47.0) % MCV 91.4 (80.0-100.0) fL MCH 27.5 (25.0-34.0) pg MCHC 30.1 L (32.0-36.0) g/dL RDW Std Deviation 63.1 H (36.4-46.3) fL RDW Coeff of Irasema 18.7 H (11.5-14.5) % Plt Count 178 (130-400) K/uL MPV 11.0 (9.4-12.4) fL Immature Gran % (Auto) 0.2 % Neut % (Auto) 80.1 % Lymph % (Auto) 10.2 % [place] % (Auto) 7.7 % Eos % (Auto) 1.1 % Baso % (Auto) 0.7 % Neut # (Auto) 3.52 (1.40-6.50) K/uL Lymph # (Auto) 0.45 L (1.20-3.40) K/uL [place] # (Auto) 0.34 (0.11-0.59) K/uL Eos # (Auto) 0.05 (0.00-0.50) K/uL Baso # (Auto) 0.03 (0.00-0.20) K/uL Immature Gran # (Auto) 0.01 (0.01-0.20) K/uL Polychromasia 1+ Tear Drop Cells 1+ Ovalocytes 1+ Sodium 136 (136-145) mmol/L Potassium 4.9 (3.5-5.1) mmol/L Chloride 98 (98-107) mmol/L Carbon Dioxide 26 (21-32) mmol/L Anion Gap 12 H (3-11) BUN 86 H (6-23) mg/dl Creatinine 4.68 H* (0.6-1.2) mg/dl Est Cr Clr Drug Dosing 6.9 ml/min Est GFR ( Amer) 9.2 ml/min Est GFR (Non-Af Amer) 7.9 ml/min BUN/Creatinine Ratio 18.4 (10-20) Glucose 176 H (70-99(Fasting)) mg/dl Calcium 8.1 L (8.6-10.3) mg/dl Phosphorus 6.9 H (2.5-4.9) mg/dl Magnesium 2.6 H (1.7-2.4) mg/dl Total Bilirubin 0.4 (0.2-1.0) mg/dl AST 27 (13-39) U/L ALT 19 (7-52) U/L Alkaline Phosphatase 285 H (34-104) U/L C-Reactive Protein < 0.50 (0-0.5) mg/dl Total Protein 6.3 (6.0-8.3) gm/dl Albumin 3.3 L (3.4-5.0) gm/dl Globulin 3.0 (2.5-4.0) gm/dl Albumin/Globulin Ratio 1.1 (0.9-2) Lipase 74 (11-82) U/L Administered Medications Discontinued Medications Atorvastatin Calcium (Atorvastatin 10 Mg Tab) 10 mg PO HS [place] Stop: 11/29/23 20:59 Last Admin: 10/30/23 20:20 Dose: 10 mg Documented By: SHERLYN Bethanechol Chloride (Bethanechol Chl 25 Mg Tab) 50 mg PO BID [place] Stop: 11/29/23 10:59 Last Admin: 10/31/23 08:33 Dose: 50 mg Documented By: Admin: 10/30/23 20:20 Dose: 50 mg Documented By: Admin: 10/30/23 17:10 Dose: Not Given Documented By: DOYLE Calcium Acetate (Calcium Acetate 667 Mg Cap/Tab) 667 mg PO TID [place] Stop: 11/29/23 13:59 Last Admin: 10/31/23 15:19 Dose: 667 mg Documented By: Admin: 10/31/23 08:35 Dose: 667 mg Documented By: Admin: 10/30/23 20:21 Dose: 667 mg Documented By: Admin: 10/30/23 17:40 Dose: 667 mg Documented By: DOYLE Calcium/Vitamin D (Calcium 600mg + Vit D 400 Iu Tab) 1 tab PO DAILY [place] Stop: 11/30/23 08:59 Last Admin: 10/31/23 08:35 Dose: 1 tab Documented By: JORDAN Cyanocobalamin (Cyanocobalamin (B-12) 500 Mcg Tablet) 1,000 mcg PO QAM [place] Stop: 11/30/23 08:59 Last Admin: 10/31/23 08:35 Dose: 1,000 mcg Documented By: JORDAN Epoetin Ignacio (Epoetin Ignacio 10,000 Units/Ml Vial) 10,000 units IV ONE ONE Stop: 10/30/23 11:01 Last Admin: 10/30/23 14:37 Dose: 10,000 units Documented By: LARISA Famotidine (Famotidine 40 Mg Tablet) 40 mg PO BID [place] Stop: 11/29/23 10:59 Last Admin: 10/31/23 08:33 Dose: 40 mg Documented By: Admin: 10/30/23 20:21 Dose: 40 mg Documented By: Admin: 10/30/23 17:10 Dose: Not Given Documented By: DOYLE Fish Oil ([place]-3 (Purified Fish Oil) 1 Gm Cap) 1 gm PO DAILY [place] Stop: 11/30/23 08:59 Last Admin: 10/31/23 08:34 Dose: 1 gm Documented By: JORDAN Furosemide (Furosemide 80 Mg Tab) 80 mg PO BID [place] Stop: 11/29/23 10:59 Last Admin: 10/31/23 08:33 Dose: 80 mg Documented By: Admin: 10/30/23 20:21 Dose: 80 mg Documented By: Admin: 10/30/23 17:11 Dose: Not Given Documented By: DOYLE Heparin Sodium (Porcine) (Heparin Sod 5,000 Unit/0.5 Ml Vial) 5,000 units SQ Q12 [place] Stop: 11/29/23 10:59 Last Admin: 10/30/23 17:46 Dose: 5,000 units Documented By: DOYLE Heparin Sodium (Porcine) (Heparin Sod 5,000 Unit/0.5 Ml Vial) 5,000 units SQ Q12H [place] Stop: 11/30/23 05:29 Last Admin: 10/31/23 17:20 Dose: 5,000 units Documented By: Admin: 10/31/23 05:20 Dose: 5,000 units Documented By: SHERLYN Levothyroxine Sodium (Levothyroxine Sodium 150 Mcg Tablet) 150 mcg PO DAILYBB [facility] Stop: 11/30/23 06:29 Last Admin: 10/31/23 05:20 Dose: 150 mcg Documented By: SHERLYN Miscellaneous (No Heparin In Dialysis) 1 each N/A ONE ONE Stop: 10/30/23 10:53 Last Admin: 10/30/23 14:38 Dose: Not Given Documented By: LARISA Pantoprazole Sodium (Pantoprazole 40 Mg Tab) 40 mg PO BID [place] Stop: 11/29/23 10:59 Last Admin: 10/31/23 08:33 Dose: 40 mg Documented By: Admin: 10/30/23 20:22 Dose: 40 mg Documented By: Admin: 10/30/23 17:11 Dose: Not Given Documented By: DOYLE Ropinirole HCl (Ropinirole Hcl 0.25 Mg Tablet) [facility] [place]: 11/29/23 10:59 Last Admin: 10/31/23 08:34 Dose: 0.5 mg Documented By: Admin: 10/30/23 17:13 Dose: Not Given Documented By: DOYLE Ropinirole HCl (Ropinirole Hcl 1 Mg Tablet) 1.5 mg PO HS [facility] Stop: 11/29/23 20:59 Last Admin: 10/30/23 20:27 Dose: 1.5 mg Documented By: SHERLYN Sertraline HCl (Sertraline Hcl 50 Mg Tablet) 50 mg PO DAILY [place] Stop: 11/29/23 10:59 Last Admin: 10/31/23 08:34 Dose: 50 mg Documented By: Admin: 10/30/23 17:13 Dose: Not Given Documented By: DOYLE Vitamin D (Cholecalciferol 25 Mcg (1000 Units) Tab) 50 mcg PO QAM [facility] Stop: 11/29/23 10:59 Last Admin: 10/31/23 08:34 Dose: 50 mcg Documented By: Admin: 10/30/23 17:10 Dose: Not Given Documented By: DOYLE Imaging Data Radiologist's Impression: Chest X-Ray 10/30/23 05:13 XR chest 1V portable HISTORY: Lower extremity edema. Shortness of breath. COMPARISON: Chest 08/25/2023. FINDINGS: There are low lung volumes. No pneumothorax. A right jugular catheter terminates in the SVC. Thoracolumbar spinal fusion hardware is again noted. Small right and moderate left pleural effusion with bibasilar densities persist. The heart remains enlarged. Mild interstitial pulmonary edema again noted. Stable bilateral hilar enlargement. No acute fractures. Degenerative changes within the shoulders. IMPRESSION: 1. Cardiomegaly with mild interstitial pulmonary edema. 2. Bilateral pleural effusions and bibasilar densities persist. ACT 112: Negative or not required by law. Electronically signed by: Rohit Jim M.D. 10/30/2023 7:31 AM Discharge Plan Visit Data Chief Complaint: Swelling/Edema to Extremity Stated Complaint: WEAKNESS, SWOLLEN LEGS ED Provider: Kath Dubose Discharge Problem: Bilateral edema of lower extremity, Shakiness, Anemia, CKD (chronic kidney disease) Patient Disposition: Admitted As Inpatient Discharge Instructions Interventions: ED Discharge Assessment Last Done: 10/30/23 12:39
[2023-10-30 05:42] LABS: Alanine Aminotransferase 19 U/L (7-52); Albumin Globulin Ratio 1.1 (0.9-2); Albumin Level 3.3 gm/dl (3.4-5.0); Alkaline Phosphatase 285 U/L (34-104); Anion Gap 12 (3-11); Aspartate Aminotransferase 27 U/L (13-39); BUN Creatinine Ratio 18.4 (10-20); Bilirubin,Total 0.4 mg/dl (0.2-1.0); Blood Urea Nitrogen 86 mg/dl (6-23); Calcium 8.1 mg/dl (8.6-10.3); Carbon Dioxide 26 mmol/L (21-32); Chloride 98 mmol/L (98-107); Creatinine Clr Calc Pharmacy 6.9 ml/min; Est GFR (African American) 9.2 ml/min; Est GFR (Non-African American) 7.9 ml/min; Glucose 176 mg/dl (70-99(Fasting)); Lipase 74 U/L (11-82); Magnesium 2.6 mg/dl (1.7-2.4); Phosphorus 6.9 mg/dl (2.5-4.9); Potassium 4.9 mmol/L (3.5-5.1); Sodium 136 mmol/L (136-145); Total Protein 6.3 gm/dl (6.0-8.3)
[2023-10-30 05:57] LABS: Ovalocytes 1+; Polychromasia 1+; Tear Drop Cells 1+
--- NOTE | 2023-10-30 07:32 | XRay Report ---
XR chest 1V portable HISTORY: Lower extremity edema. Shortness of breath. COMPARISON: Chest 08/25/2023. FINDINGS: There are low lung volumes. No pneumothorax. A right jugular catheter terminates in the SVC . Thoracolumbar spinal fusion hardware is again noted. Small right and moderate left pleural effusion with bibasilar densities persist. The heart remains enlarged. Mild interstitial pulmonary edema agai n noted. Stable bilateral hilar enlargement. No acute fractures. Degenerative changes within the shou lders. IMPRESSION: 1. Cardiomegaly with mild interstitial pulmonary edema. 2. Bilateral pleural effusions and bibasilar densities persist. ACT 112: Negative or not required by law. Electronically signed by: Rohit Jim M.D. 10/30/2023 7:31 AM
--- NOTE | 2023-10-30 08:11 | History & Physical Report ---
Date of Service October 30, 2023 Assessment & Plan (1) Generalized weakness: Plan: Suspect multifactorialanemia, malnutrition (seems to be severe protein calorie malnutritionacuity is really hard to discern) as well as age/ESRD/deconditioning. Treat factors at play as best as possible. PT/OT eval and treat. (2) Anemia: Plan: While she has history of GAVE, does not give an acute history consistent with any active bleedingseems more consistent with poor hematopoiesis. At any rate, would likely benefit from transfusion. Unit of blood ordered with dialysis (3) ESRD on dialysis: Plan: consult nephrology for ongoing dialysis. Of note, ER physician wondered if she had worsening of peripheral edemaalthough on directed questioning patient does not believe that her edema is worse than it has been (4) Physical deconditioning: Plan: as well as what seems to be severe protein/calorie malnutritionduration uncertain. Nutrition consult, encourage p.o. intake. PT/OT eval and treat (5) DVT prophylaxis: Plan: heparin subcu (6) Discharge planning issues: [facility] PT/OT to assist in discharge planning as she may require some form of rehab/facility. She would like to be a DO NOT RESUSCITATE. Tried to reach out to her daughter listed in her contactsno answer/left voicemail, also asked patient to have me paged if her daughter is at the bedside. History of Present Illness Chief Complaint: Weak and shaky Primary Care Provider: Agatha Alfaro DO patient is a very pleasant 83-year-old female who presents after working up feeling weak and shaky this morning. She notes whenever she was trying to get up she felt very weak her legs felt funny and she felt very shaky. She came to the ER for further evaluation. She did not fall, she did not suffer any injuries, she recalls maybe feeling a little bit weaker than normal yesterday, but before that was at what she thought was her usual baseline. No dark black stool no tarry stool. Generally a longstanding fatigue and malaise. Seems to have a bit of a poor appetite, it is a little bit hard to quantify her p.o. intake, but it sounds like she routinely does not eat a lot. She relates 100 pound weight lossbut dates this back to whenever she was still working through now, and is really not able to put much of a timeline on her weight loss even over the last 6 months other than relating that she does have a poor appetite. Relates having [facility] (when asked to quantify in the room she thought it was last summer or maybe the year before, on chart review it was July of this year) but at any rate she notes she did not like being there. Notes feeling better right now. Allergies Allergy/AdvReac Type Severity Reaction Status Date / Time sulfamethoxazole AdvReac Unknown REMOTE Verified 10/30/23 10:42 [From Bactrim] HX/PT NOT SURE REACTION trimethoprim [From Bactrim] AdvReac Unknown REMOTE Verified 10/30/23 10:42 HX/PT NOT SURE REACTION Home Medications Medication Instructions Recorded Confirmed Type cholecalciferol (vitamin D3) 25 2,000 unit PO QAM 05/29/18 10/30/23 History mcg (1,000 unit) capsule (Vitamin D3) cyanocobalamin (vitamin B-12) 1,000 mcg PO QAM 11/12/20 10/30/23 History 1,000 mcg tablet (Vitamin B-12) bethanechol chloride 50 mg tablet 50 mg PO BID #180 tabs 04/19/21 10/30/23 Rx diaper,brief,adult,disposable #150 ea 12/07/21 09/28/23 Rx (Fitted Briefs X-Large) loperamide 2 mg capsule 2 mg PO UD PRN Diarrhea 05/29/22 10/30/23 History estradiol 0.01% (0.1 mg/gram) 1 applic vaginal 3XWK PRN ONLY 05/30/22 10/30/23 History vaginal cream WHEN BURNING nystatin 100,000 unit/gram topical 1 applic topical BID PRN IRRITATION 07/10/22 10/30/23 History powder furosemide 80 mg tablet 80 mg PO BID #180 tabs 05/28/23 10/30/23 Rx pantoprazole 40 mg tablet,delayed 40 mg PO BID #60 tabs 06/27/23 10/30/23 Rx release (Protonix) triamcinolone acetonide 0.5 % 1 applic topical BID PRN skin 07/03/23 10/30/23 Rx topical cream irritation #60 grams calcium acetate 667 mg tablet 667 mg PO TID 07/06/23 10/30/23 History famotidine 40 mg tablet 40 mg PO BID #60 tabs 07/06/23 10/30/23 Rx sertraline 50 mg tablet 50 mg PO DAILY #30 tabs 07/09/23 10/30/23 Rx calcium carbonate 600 mg-vitamin 1 tab PO DAILY 07/23/23 10/30/23 History D3 10 mcg (400 unit) tablet (Calcium 600 + D(3)) omega-3 fatty acids 1,000 mg 1,000 mg PO DAILY 07/23/23 10/30/23 History capsule fluticasone propionate 50 1 spray intranasal DAILY #16 grams 08/16/23 10/30/23 Rx mcg/actuation nasal spray,suspension (Flonase Allergy Relief) atorvastatin 10 mg tablet (Lipitor) 10 mg PO HS #90 tabs 08/20/23 10/30/23 Rx dimethicone 1.3 % topical cream 1 applic topical DAILY PRN skin 08/25/23 10/30/23 History (Cavilon Durable Barrier) irritation levothyroxine 150 mcg capsule 150 mcg PO QAM #90 caps 08/31/23 10/30/23 Rx methocarbamol 500 mg tablet 500 mg PO TID PRN muscle spasm #90 09/20/23 10/30/23 Rx tabs ropinirole 0.5 mg tablet 0.5 mg PO UD #90 tabs 09/20/23 10/30/23 Rx tramadol 50 mg tablet 50 mg PO BID PRN Pain #60 tabs 10/29/23 10/30/23 Rx hhwsjqxrrauv-fwkgngtf-sreirya-folic 1 tab PO DAILY 10/30/23 10/30/23 History acid 400 mcg-vit K1 20 mcg tablet Past Med/Surg History Problem List (Updated 10/30/23 @ 15:49 by Bandar Guzman DO) Discharge planning issues DVT prophylaxis Pleural effusion CKD (chronic kidney disease) (Acute) Anemia (Acute) Shakiness (Acute) Bilateral edema of lower extremity (Acute) Physical deconditioning ESRD on dialysis (Acute) Ascites Aortic stenosis 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 Palliative care by specialist Pancytopenia Clostridioides difficile carrier Vitamin D deficiency (Chronic) Recurrent urinary tract infection 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 aguirre Osteoarthritis Hyperlipidemia History of CVA (cerebrovascular accident) (2019) ~5years ago, woke up with weakness in her rt hand; L lacunar infarct; previously on plavix>no residual effects Hiatal hernia GERD without esophagitis Fatty liver Essential tremor MINOR IN HAND Diabetic retinopathy Chronic hyponatremia Chronic diastolic heart failure CAD (coronary artery disease) Anxiety Anemia of chronic disease GAVE (gastric antral vascular ectasia) (Acute) Medical History Right wrist pain Generalized weakness Fatigue CKD (chronic kidney disease) CKD (chronic kidney disease) Sepsis Encephalopathy UTI (urinary tract infection) Lower extremity cellulitis Pleural effusion, bilateral Elevated brain natriuretic peptide (BNP) level Elevated troponin I level Pericardial effusion Elevated brain natriuretic peptide (BNP) level Non-ST elevation VT (NSTEMI) Pancytopenia Hemorrhoids History of recent hospitalization GI BLEED/LOW BLOOD COUNT/HX BLOOD TRANSFUSION - MAY 2022 - [facility] ESRD on hemodialysis tuesdays, , and saturdays currently Poor historian History of GI bleed hx 08/2021, given transfusion-per medical record REASON FOR UPCOMING PROCEDURE Hx of atrial fibrillation, no current medication per medical report History of renal dialysis , AND SAT ([facility] FROM [facility]) ACCESS SITE RIGHT SIDE OF CHEST/ ? DETAILS Resistant hypertension Diabetes mellitus, type 2 Hearing deficit no hearing aids Urinary urgency Secondary hyperparathyroidism of renal origin First degree AV block Hypertension Hypothyroidism Surgical History History of esophagogastroduodenoscopy (EGD) multiple---last 08/01/2022 @ [facility] 04/06/22 at [facility] with Dr. Mich Pacheco- EGD- Gastric antral vascular ectasia with bleeding, treated with argon plasma coagulation (APC); Few angioectasias in the duodenum, treated with APC S/P pericardiocentesis 08/2021, [facility], w/dr moura Hx of cardiac catheterization 08/2021, [facility] w/Dr. Moura for increased cardiac pressures; no stents History of tooth extraction History of colonoscopy H/O varicose vein ligation S/P trigger finger release S/P knee replacement RT/LEFT History of bladder suspension procedure X 2 S/P carpal tunnel release RT/LEFT History of back surgery (04/2010) X 2 S/P hysterectomy [place] Family History Father Alcohol abuse Heart disease Myocardial infarction Hypertension Sister Pancreatic cancer Diabetes Breast cancer Brother Diabetes Alcohol abuse Stroke Other Cancer No family history of adverse response to anesthesia Denies family history of Ovarian cancer Prostate cancer Colorectal cancer Social History Smoking Status: Never smoker Second Hand Exposure: No; Do You Dip or Chew Tobacco: No; Hx Alcohol Use: No Hx Substance Use: No Preferred Language: Venezuelan Communication Ability: Effective Visual Impairment: No Limitations Hearing Ability: Normal 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: No Beliefs That Will Affect Care: None marital status: Single Current Living Situation: Alone Current Living Situation Comment: daughter helps current occupational status: retired How many Children do You have: 2 Feels Safe at Home: Yes Childhood Exposure to Second-Hand Smoke: No Diet: regular Diet Comment: regular caffeine: Yes (Coffee x 2 cups per day.) during the past year weight has: remained stable Dental Care, Regularly: No Physical Activity Frequency: Does not Exercise Seatbelt Use: always Sunscreen Use: Yes Assistive Devices: Walker Review of Systems Review of Systems: All systems reviewed & are unremarkable except as noted in HPI & below Physical Exam Physical Exam: General she is awake alert fatigued and frail but no distress. HEENT normocephalic atraumatic mucous membranes moist. Breathing unlabored no accessory muscle use good effort. Abdomen is soft nondistended nontender of note specifically no epigastric tenderness no guarding rebound or rigidity. Skin shows bilateral lower extremity about 1+ edema with red venous stasis type changes but no real tenderness no crepitus no significant warmth. Neuro shows cranial nerves II through XII grossly intact gross motor and sensory intact. Results & Data Results & Data Vital Signs (Past 12 Hours) Vital Signs Temp Pulse Pulse Resp BP BP Pulse Ox 10/30/23 07:10 68 20 144/68 H 98 10/30/23 05:33 69 18 132/59 L 96 10/30/23 05:06 71 16 126/56 L 94 10/30/23 04:59 67 10/30/23 04:53 97.9 F 71 22 119/55 L 94 O2 Del Method 10/30/23 07:10 Room Air 10/30/23 05:33 10/30/23 05:06 10/30/23 04:59 10/30/23 04:53 Room Air Code Status & VTE Plan VTE Prophylaxis Plan VTE Prophylaxis will be ordered: Yes PG Care Time/CCT Total # of Minutes Spent Total Time Spent with Patient: Total time spent is greater than 50% in coordination of care (as documented) at patient's floor/unit and/or counseling patient: Coding Level of Care Code 10661 INT INP/OBS CARE 3/75MIN Diagnoses Generalized weakness R53.1 Anemia D64.9 ESRD on dialysis N18.6; Z99.2 Physical deconditioning R53.81 DVT prophylaxis Z29.9 Discharge planning issues Z75.8
[2023-10-30 08:43] LABS: C Reactive Protein < 0.50 mg/dl (0-0.5)
--- OUTSIDE RECORDS SUMMARY | 2023-10-30 10:12 | External Medical Summary | Summary of Care ---
Author Name Unknown Organization [facility] Address [address] [place] [address] Phone [phone] Care Team Providers Care Customer Relations Representative Name Role Phone Agatha Alfaro DO Primary Care Provider [phone] Reason for Visit * Reason Comments Follow Up 6-8 week follow up * Precert (Within 10 days (routine)) - Authorized Specialty Diagnoses / Procedures Referred By Christian ribera Referred To Contact Ophthalmology Diagnoses Type 2 diabetes mellitus with moderate nonproliferative diabetic retinopathy with macular edema, bilateral (HCC) Procedures NH BEVACIZUMAB INJECTION NH INTRAVITREAL NJX PHARMACOLOGIC AGT SPX Ronald Ortega DO [address] [place] [address] Referral ID Status Reason Start Date Expiration Date V isits Requested Visits Authorized [id number] Authorized Precert 07/07/2022 03/04/[phone] Encounter Details Date Type Department Care Team (Late st Contact Info) Description 10/26/2023 11:30 AM EDT Office Visit Ophthalmology, [facility] [address] [place] [address] Ronald Ortega DO [address] [place] [address] Moderate nonproliferative diabetic retinopathy of both eyes with macular edema associated with type 2 diabetes mellitus (HCC)* Allergies Active Allergy Reactions Criticality Noted Date Comments Lisinopril Muscle pain 03/08/2011 Pregabalin Muscle pain 03/08/2011 Prednisone High 02/15/2017 Other reaction(s): ,pt is diabetic,, Hyperglycemia Sulfa Antibiotics 04/07/2014 Sulfamethoxazole-Trimetho prim 12/08/2022 Other Reaction(s): Not available Trimethoprim 08/17/2022 Other Reaction(s): REMOTE HX/PT NOT SURE REACTION documented as of this encounter (statuses as of 10/26/2023) Medications Medication Sig Dispensed Refills Start Date End Date Status SYNTHROID TABS 100 MCG OR 1 TABLET DAILY 30 0 01/21/2004 Active VITAMIN E 1000 UNIT PO CAPS one daily Active CALCIUM 600+D 600-200 MG-UNIT PO TABS Active ASPIRIN 81 MG PO TABS Take by mouth. 0 01/31/2007 Active FLOMAX 0.4 MG PO CAPS Take by mouth. Active ATORVASTATIN CALCIUM 10 MG PO TABS One tablet by mouth once a day 04/07/2014 Active AMLODIPINE BESYLATE 5 MG PO TABS Take by mouth. 04/07/2014 Active BETHANECHOL CHLORIDE 50 MG PO TABS 1 tab 4 x a day 04/07/2014 Active VITAMIN B-12 1000 MCG PO TABS 1 tablet daily 04/07/2014 Active TRAMADOL HCL 50 MG PO TABS 1 tab every 6 hrs as needed 04/07/2014 Active Nitrofurantoin Macrocrystal 100 MG Oral CapsuleIndications:vitaliy y Take 1 Capsule by mouth once. Active Methocarbamol 500 MG Oral Tablet (Robamol) Take 1 Tablet by mouth 3 times a day as needed. Active linaGLIPtin 5 MG Oral Tablet (Tradjenta) Take 1 Tablet by mouth in the morning. Active rOPINIRole HCl 0.5 MG Oral Tablet (Requip) Take 1 Tablet by mouth in the morning and 1 Tablet at noon and 1 Tablet before bedtime. Active Pantoprazole Sodium 40 MG Oral Tablet Delayed Release Take 1 Tablet by mouth in the morning and 1 Tablet in the evening. Active Famotidine 40 MG Oral Tablet (Pepcid) Take 1 Tablet by mouth in the morning. Active Vitamin D3 25 MCG (1000 UT) Oral Tablet Chewable Take by mouth . Active Bloxom-3 1000 MG Oral Capsule Take by mouth . Active Doxazosin Mesylate 4 MG Oral Tablet (Cardura) Take 1 Tablet by mouth at bedtime. Active Furosemide 80 MG Oral Tablet (Lasix) Take 1 Tablet by mouth in the morning and 1 Tablet before bedtime. Active Artificial Tears 0.5-0.6 % Ophthalmic Solution (Polyvinyl Alcohol-Povidone) Instill into eye as needed. Active documented as of this encounter (statuses as of 10/26/2023) Active Problems Problem Noted Date Diagnosed Date HTN, goal below 140/90 04/07/2014 Gastroparesis 04/07/2014 Primary localized osteoarthrosis, lower leg 07/03 BLADDER ACONTRACTILE-NEUROGENIC 05/23/2010 STENOSIS (SEE ALSO STRICTURE) BLADDER NECK (ACQU IRED) 05/09/2010 Kidney disease, chronic, stage III (GFR 30-59 ml /min) 05/09/2010 Spinal stenosis of lumbar re gion with neurogenic claudication 05/09/2010 Slow transit constipation 05/09/2010 Degeneration of lumbosacral intervertebral disc 05/09/2010 Abnormality of gait 05/09/2010 Other specified acquired hypothyroidism 05/10/19 Senile osteoporosis 05/09/2010 Anemia 05/09/2010 Dyslipidemia, goal LDL below 100 05/06/2010 ADVANCE DIRECTIVE INFORMATION 09/19/2006 Overview: Yes, Patient instructed to provide copy of advance directive for provider to review and to be scanned into Electronic Medical Record Varicose vein of leg 07/22/2002 Obesity, BMI not known Type 2 diabetes, HbA1C goal < 8% documented as of this encounter (statuses as of 10/26/2023) Resolved Problems Problem Noted Date Diagnosed Date Resolved Date STENOSIS (SEE ALSO STRICTURE ) BLADDER NECK (ACQUIRED) 05/09/2010 05/09/2010 Dyslipidemia, goal to be determined 02/09/2009 05/06/2010 Overview: Per Lipid Taxonomy. Hypothyroidism 05/09/2010 HTN, goal to be determined 0 05/09/2010 Overview: Modified per HTN protocol #16. Mixed dyslipidemia 9 Overview: Per Lipid Taxonomy. Spinal stenosis, unspecified region other than cervical 05/09/2010 documented as of this encounter (statuses as of 10/26/2023) Immunizations Name Administration Dates Next Due Pneumococcal Polysaccharide PPV23 (Pneumovax) Seasonal Influenza, Split, IIV3, With Preserve, Inj 12/03/2013 TDAP (age 10 and older)(Boostrix) 09/29/2016 Varicella Zoster Vaccine (Adult) 08/17/2012 documented as of this encounter Social History Tobacco Use Types Packs/Day Years Used Date Smoking Tobacco: Never Passive Smoke Exposure: Never Smokeless Tobacco: Never Alcohol Use Standard Drinks/Week Comments No 0 (1 standard drink = 0.6 oz pur e alcohol) Sex and Gender Information Value Date Recorded Sex Assigned at Not on file Gender Identity Not on file Sexual Orientation Not on file Job Start Date Occupation Industry Not on file Not on file Not on file documented as of this encounter Progress Notes * Ronald Ortega, DO - 10/26/2023 11:30 AM EDT [facility] [place] Nursing Notes: Paty Kern LPN 10/26/23 1200 Signed Sully Faria is a 83 year old year old female who presents for mild NPDR OU. Last Office Visit: 05/25/2023 (in office), Visit date not found (telemedicine) Patient currently states no change in vision. Are you diabetic? Yes. Do you check your blood sugars daily? NO. Last Hemoglobin A1C: Lab Results Component Value Date/Time HGBA1C 5.8 05/10/2010 06:[address]? no OCT image(s) of both eyes acquired and filed/scanned into chart. Base Eye Exam Visual Acuity (Snellen - Linear) Right Left Dist sc 20/40 -1 20/60 -1 Dist ph sc 20/30 -1 20/40 -2 Tonometry (Tonopen, 11:59 AM) Right Left Pressure 12 11 Pupils Pupils APD Right PERRL None Left PERRL None Visual Whitaker (Counting fingers) Right Left Restrictions Partial outer superior temporal, inferior temporal, superior nasal, inferior nasal deficiencies Partial outer superior temporal, inferior temporal, superior nasal, inferior nasal deficiencies Extraocular Movement Right Left Full, Ortho Full, Ortho Neuro/Psych Oriented x3: Yes Dilation Both eyes: 0.5% Proparacaine @ 11:58 AM Dilation #2 Both eyes: 1.0% Mydriacyl, 2.5% Phenylephrine @ 11:58 AM Dilation Comments Patient cautioned that effects of dilation may last 2-7 hours dependant upon individual reaction. It was discussed that driving while dilated is not recommended. EXTERNAL: The ocular adnexae are unremarkable. SLE: Lids/Lashes: wnl OU Conjunctiva/Sclera: quiet OU Cornea: clear OU Anterior Chamber: deep and quiet OU Iris: normal OU; no NVI OU Lens: PCIOL OU Dilated fundus exam OD: vitreous: clear optic nerve: 0.6, no edema/pallor/NVD macula: head rigger, dme vessels: old brao IT arcade periphery: head rigger, no RT/RD Dilated fundus exam OS: vitreous: clear optic nerve: 0.7, no edema/pallor/NVD macula: head rigger, dme vessels: DM changes periphery: head rigger, no RT/RD OCT Interpretation: OD: improved mild CIDME, incomplete PVD--STABLE, prior STABLE, prior STABLE, prior improved 112um prior worse 162um prior improved OS: mild CIDME, incomplete PVD--STABLE, prior worse 95um, prior worse 53um prior STABLE, prior improved 433um prior worse, prior improved/dry A/P: 1. Moderate Nonproliferative Diabetic Retinopathy OU -h/o injections OS [facility] -CIDME OD<OS OD: -no DME -monitor -An examination for this condition was completed which is unrelated to the procedure that was performed today. OS: -Avastin OS 05/25/23, 12/08/22, 07/07/22 -5 months, has gone 5 months -pt wants prn tx difficult exam/OCT due to body habitus -recommend HgbA1C <7, BP and lipid control. 2. Old BRAO OD -noted in past 3. Pseudophakia OU -stable, Dr. Navarro F/u 3-4 months OCT OU Ronald Ortega DO CC: Bandar Navarro MD CC: PCP: Agatha Alfaro DO documented in this encounter Nursing Notes * Paty Kern LPN - 10/26/2023 11:44 AM EDT Sully Faria is a 83 year old year old female who presents for mild NPDR OU. Last Office Visit: 05/25/2023 (in office), Visit date not found (telemedicine) Patient currently states no change in vision. Are you diabetic? Yes. Do you check your blood sugars daily? NO. Last Hemoglobin A1C: Lab Results Component Value Date/Time HGBA1C 5.8 05/10/2010 06:[address]? no OCT image(s) of both eyes acquired and filed/scanned into chart. documented in this encounter Plan of Treatment Upcoming Encounters Date Type Department Care Team (Latest Contact Info) Description 11/12/2023 8:30 AM EDT Hospital Encounter [facility], Endoscopy [address], [facility], [address] [place] [address] Arturo Chaudhary MD [address] [place] [address] 11/12/2023 8:30 AM EDT - 11/12/2023 9:00 AM EDT Surgery ENDO [facility], Endoscopy Suite, [facility] [address], [address] [place] [address] Arturo Chaudhary MD [address] [place] [address] ESOPHAGOGASTRODUODENOSCOPY (EGD), FLEXIBLE, TRANSORAL, DIAGNOSTIC Scheduled Orders Name Type Priority Associated Diagnoses Orde r Schedule RETINA SCAN DIAGNOSTIC IMAGE, POSTERIOR Procedures Routine Moderate nonproliferative diabetic retinopathy of both eyes with macular edema associated with type 2 diabetes mellitus (HCC) Ordered: 10/26/2023 Scheduled Procedures Name Priority Associated Diagnoses Date/Ti me ESOPHAGOGASTRODUODENOSCOPY ( EGD), FLEXIBLE, TRANSORAL, DIAGNOSTIC GAVE (gastric antral vascular ectasia) Angiodysplasia of duodenum with hemorrhage 11/12/2023 8:30 AM EDT Health Maintenance Due Date Last Done Comments Depression Screening 1952 HbA1c 11/10/2010 05/10/2010 Albumin/Creatinine Ratio 05/08/2011 05/07/2010 TSH 05/11/2011 05/10/2010 Diabetic Foot Exam 04/07/2015 04/07/2014 DXA Scan 11/29/2018 11/29/2016, 09/26/2016 COVID-19 Vaccine ( season) 2023 12/30/2022, 12/30/2022 Diabetic Eye Exam 06/29/2023 06/28/2022, , 09/15/2011 Influenza Vaccine (FLU shot) (#1) 2023 12/15/2018, 01/20/2015, 01/05/2014, Additional history exists CKD PHOS USE SMARTSET 67413 07/31/2024 08/01/2023 CKD HGB USE SMARTSET 40189 08/07/202408/07, 08/01/2023, 09/08/2021, Additional history exists DTaP,Tdap,and Td Vaccines (2 - Td or Tdap) 09/29/2026 09/29/2016 VITAMIN D LEVEL ONCE IN A LIFETIME-USE SMARTSET# [id number] Completed 05/10/2010 Pneumococcal Vaccine: 65+ Years Completed 11/29/2016, 03/10/2015, 08/04/2003 Zoster Vaccines Completed 08/18/2019, 04/05, 08/17/2012 Hepatitis B Vaccine Completed 05/31/2020, 12/01/2019, 10/31/2019 HPV (Gardasil) Vaccine Aged Out No lo nger eligible based on patient's age to complete this topic MENINGOCOCCAL (MENACTRA/MENVEO) Aged Out No longer eligible based on patient's age to complete this topic documented as of this encounter Medical Devices Implanted Type Area Catering Chef Device Identifier Shelf Expiration Date Model / Serial / Lot Duraclip 11mm Repositionable - [id number] Implanted:Qty: 1 on 09/29/2022 by Arturo Chaudhary MD at ENDOSCOPY [facility] N/A: Stomach CONMED MAHAMED [id number] 03/20/2024 [id number] / [id number] documented as of this encounter Visit Diagnoses Diagnosis Moderate nonproliferative diabetic retinopathy of both eyes with macular edema associated with type 2 diabetes mellitus (HCC)- Primary GAVE (gastric antral vascular ectasia) Angiodysplasia of stomach and duodenum (without mention of hemorrhage) Angiodysplasia of duodenum with hemorrhage Angiodysplasia of stomach and duodenum with hemorrhage documented in this encounter Care Teams Customer Relations Representative Relationship Specialty Start Date End Date Agatha Alfaro DO [address] [facility] [address] [place] [address] PCP - General Family Medicine 02/24/22 documented as of this encounter
[2023-10-30] MEDS ORDERED: SODIUM CHLORIDE 0.9% 250 ML IV PRN (10:46)
[2023-10-30] MEDS ORDERED: SODIUM CHLORIDE 0.9% 1,000 ML IV PRN (10:52)
[2023-10-30] MEDS ORDERED: traMADol HCL 50 MG TABLET PO PRN (11:00)
[2023-10-30] MEDS ORDERED: ALUMINUM/MAGNESIUM SUSP 30 ML UDC PO PRN (11:00)
[2023-10-30] MEDS ORDERED: ONDANSETRON INJ 2 MG/ML 2 ML VIAL IV PRN (11:00)
[2023-10-30] MEDS ORDERED: ACETAMINOPHEN 325 MG TAB PO PRN (11:00)
[2023-10-30] MEDS ORDERED: MAGNESIUM HYDROXIDE SUSP 30 ML UDC PO PRN (11:00)
[2023-10-30] MEDS ORDERED: MELATONIN 3 MG TAB PO PRN (11:00)
[2023-10-30] MEDS ORDERED: METHOCARBAMOL 500 MG TABLET PO PRN (11:00)
[2023-10-30] MEDS ORDERED: POLYETHYLENE (MIRALAX) 17 GM PACK PO PRN (11:00)
--- NOTE | 2023-10-30 11:12 | Nephrology Consultation ---
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 Patient has been on HD since 08/23. Her access remains a R IJ TCC * Outpatient HD Rx: Dr. Will, [facility], TTS, 3 hr 3K 2.5Ca F-180 EDW 61 kg * Will provide HD today. Orders placed in EMR and HD RN notified. No heparin. Will transfuse 1 u PRBC. Will attempt UF as guided by Crit-Line monitor. Patient has LE edema and bilateral pleural effusions (2) Anemia: * H/o GAVE * Will transfuse one unit PRBC during HD today (3) Aortic stenosis: * 02/24 echocardiogram w/ moderate-severe * Consider follow up echocardiogram to assess for progression of valvular heart disease. Question whether patient is progressing to critical due to her LE swelling and bilateral pleural effusions despite dropping EDW at HD unit (4) Pleural effusion: * Will repeat CXR in am following UF on HD. If pleural effusions persist, consider consultation w/ Pulmonology for possible thoracentesis History of Present Illness Reason for Consultation: ESKD-D, LE edema, anemia Attending Physician: Bandar Guzman, DO History of Present Illness Ms. Ray is an 83 year old white female who is seen at the request of the [facility] hospitalist service to provide inpatient HD and assist w/ medical management. Information for the HPI is obtained from direct patient interview and review of the EMR. HPI is summarized as follows: Ms. 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 She has been on HD since 08/23 and currently dialyzes TTS at [facility] under the care of Dr. Will (3.5hr, 3K 2.5Ca 1Mg F-180NR, EDW 61 kg). Her medical history is significant for severe , mitral stenosis, R heart failure, permanent atrial fibrillation (not on anticoagulation due to GI bleeds), GAVE w/ recurrent UGI bleed requiring frequent blood transfusion, CVA, AODM, hypothyroidism. Ms. Ray was brought to the EMD this morning by her daughter for evaluation of generalized weakness and progressive LE swelling. She denied overt blood loss. EMD evaluation revealed 3+ bilateral pitting edema, CXR with pulmonary edema and L>>R pleural effusions. Hgb was 7.4. Hospitalist team is arranging for blood transfusion and requested HD today. Allergies Allergy/AdvReac Type Severity Reaction Status Date / Time sulfamethoxazole AdvReac Unknown REMOTE Verified 10/30/23 10:42 [From Bactrim] HX/PT NOT SURE REACTION trimethoprim [From Bactrim] AdvReac Unknown REMOTE Verified 10/30/23 10:42 HX/PT NOT SURE REACTION Home Medications Medication Instructions Recorded Confirmed Type cholecalciferol (vitamin D3) 25 2,000 unit PO QAM 05/29/18 10/30/23 History mcg (1,000 unit) capsule (Vitamin D3) cyanocobalamin (vitamin B-12) 1,000 mcg PO QAM 11/12/20 10/30/23 History 1,000 mcg tablet (Vitamin B-12) bethanechol chloride 50 mg tablet 50 mg PO BID #180 tabs 04/19/21 10/30/23 Rx diaper,brief,adult,disposable #150 ea 12/07/21 09/28/23 Rx (Fitted Briefs X-Large) loperamide 2 mg capsule 2 mg PO UD PRN Diarrhea 05/29/22 10/30/23 History estradiol 0.01% (0.1 mg/gram) 1 applic vaginal 3XWK PRN ONLY 05/30/22 10/30/23 History vaginal cream WHEN BURNING nystatin 100,000 unit/gram topical 1 applic topical BID PRN IRRITATION 07/10/22 10/30/23 History powder furosemide 80 mg tablet 80 mg PO BID #180 tabs 05/28/23 10/30/23 Rx pantoprazole 40 mg tablet,delayed 40 mg PO BID #60 tabs 06/27/23 10/30/23 Rx release (Protonix) triamcinolone acetonide 0.5 % 1 applic topical BID PRN skin 07/03/23 10/30/23 Rx topical cream irritation #60 grams calcium acetate 667 mg tablet 667 mg PO TID 07/06/23 10/30/23 History famotidine 40 mg tablet 40 mg PO BID #60 tabs 07/06/23 10/30/23 Rx sertraline 50 mg tablet 50 mg PO DAILY #30 tabs 07/09/23 10/30/23 Rx calcium carbonate 600 mg-vitamin 1 tab PO DAILY 07/23/23 10/30/23 History D3 10 mcg (400 unit) tablet (Calcium 600 + D(3)) omega-3 fatty acids 1,000 mg 1,000 mg PO DAILY 07/23/23 10/30/23 History capsule fluticasone propionate 50 1 spray intranasal DAILY #16 grams 08/16/23 10/30/23 Rx mcg/actuation nasal spray,suspension (Flonase Allergy Relief) atorvastatin 10 mg tablet (Lipitor) 10 mg PO HS #90 tabs 08/20/23 10/30/23 Rx dimethicone 1.3 % topical cream 1 applic topical DAILY PRN skin 08/25/23 10/30/23 History (Cavilon Durable Barrier) irritation levothyroxine 150 mcg capsule 150 mcg PO QAM #90 caps 08/31/23 10/30/23 Rx methocarbamol 500 mg tablet 500 mg PO TID PRN muscle spasm #90 09/20/23 10/30/23 Rx tabs ropinirole 0.5 mg tablet 0.5 mg PO UD #90 tabs 09/20/23 10/30/23 Rx tramadol 50 mg tablet 50 mg PO BID PRN Pain #60 tabs 10/29/23 10/30/23 Rx zlsluenjctqf-jyvjwfjs-yosakmp-folic 1 tab PO DAILY 10/30/23 10/30/23 History acid 400 mcg-vit K1 20 mcg tablet Patient History Medical History Right wrist pain Generalized weakness Fatigue CKD (chronic kidney disease) CKD (chronic kidney disease) Sepsis Encephalopathy UTI (urinary tract infection) Lower extremity cellulitis Pleural effusion, bilateral Elevated brain natriuretic peptide (BNP) level Elevated troponin I level Pericardial effusion Pleural effusion Elevated brain natriuretic peptide (BNP) level Non-ST elevation IN (NSTEMI) Pancytopenia Hemorrhoids History of recent hospitalization GI BLEED/LOW BLOOD COUNT/HX BLOOD TRANSFUSION - MAY 2022 - [facility] ESRD on hemodialysis tuesdays, , and saturdays currently Poor historian History of GI bleed hx 08/2021, given transfusion-per medical record REASON FOR UPCOMING PROCEDURE Hx of atrial fibrillation, no current medication per medical report History of renal dialysis , AND SAT ([facility] [place]CROSS FROM [facility]) ACCESS SITE RIGHT SIDE OF CHEST/ ? DETAILS Resistant hypertension Diabetes mellitus, type 2 Hearing deficit no hearing aids Urinary urgency Secondary hyperparathyroidism of renal origin First degree AV block Hypertension Hypothyroidism Surgical History History of esophagogastroduodenoscopy (EGD) multiple---last 08/01/2022 @ [facility] 04/06/22 at [facility] with Dr. Mich Pacheco- EGD- Gastric antral vascular ectasia with bleeding, treated with argon plasma coagulation (APC); Few angioectasias in the duodenum, treated with APC S/P pericardiocentesis 08/2021, [place], w/dr moura Hx of cardiac catheterization 08/2021, [place] w/Dr. Moura for increased cardiac pressures; no stents History of tooth extraction History of colonoscopy H/O varicose vein ligation S/P trigger finger release S/P knee replacement RT/LEFT History of bladder suspension procedure X 2 S/P carpal tunnel release RT/LEFT History of back surgery (04/2010) X 2 S/P hysterectomy [place] Family History Father Alcohol abuse Heart disease Myocardial infarction Hypertension Sister Pancreatic cancer Diabetes Breast cancer Brother Diabetes Alcohol abuse Stroke Other Cancer No family history of adverse response to anesthesia Denies family history of Ovarian cancer Prostate cancer Colorectal cancer Social History Smoking Status: Never smoker Second Hand Exposure: No; Do You Dip or Chew Tobacco: No; Hx Alcohol Use: No Hx Substance Use: No Preferred Language: Croatian Communication Ability: Effective Visual Impairment: No Limitations Hearing Ability: Normal Residential Mortgage Underwriter Required: No Beliefs That Will Affect Care: None marital status: Single Current Living Situation: Alone Current Living Situation Comment: daughter helps current occupational status: retired How many Children do You have: 2 Feels Safe at Home: Yes Childhood Exposure to Second-Hand Smoke: No Diet: regular Diet Comment: regular caffeine: Yes (Coffee x 2 cups per day.) during the past year weight has: remained stable Dental Care, Regularly: No Physical Activity Frequency: Does not Exercise Seatbelt Use: always Sunscreen Use: Yes Assistive Devices: Walker Review of Systems Constitutional: no fever Eyes: no problem reported Ear, Nose, Mouth, Throat: no problem reported Respiratory: + dyspnea Cardiovascular: no chest pain Gastrointestinal: no nausea, no vomiting and no diarrhea/loose stools Physical Exam Constitutional: + frail appearing; not in distress Eyes: PERRL, conjunctivae normal, anicteric sclerae ENMT: external ear and nose normal, oropharynx normal Neck: trachea midline, no thyromegaly (IJ TCC w/ clean dry dressing) Respiratory: Auscultation: + diminished lung sounds (at bases bilaterally) Cardiovascular: Heart Sounds: + murmur (harsh aortic outflow murmur) Extremities: + edema (3+ LE swelling) Gastrointestinal (Abdomen): normal bowel sounds, soft, nontender, no hepatosplenomegaly Neurologic: Speech / Cognition: normal speech and normal cognition Results & Data Vital Signs (Past 12 Hours) Vital Signs Temp Pulse Pulse Resp BP BP Pulse Ox 10/30/23 09:04 65 10/30/23 09:00 68 14 140/67 99 10/30/23 07:10 68 20 144/68 H 98 10/30/23 05:33 69 18 132/59 L 96 10/30/23 05:06 71 16 126/56 L 94 10/30/23 04:59 67 10/30/23 04:53 36.6 C 71 22 119/55 L 94 O2 Del Method 10/30/23 09:04 10/30/23 09:00 Room Air 10/30/23 07:10 Room Air 10/30/23 05:33 10/30/23 05:06 10/30/23 04:59 10/30/23 04:53 Room Air Laboratory Results Laboratory Results WBC 4.40 K/ul (4.8-10.8) L 10/30/23 04:57 RBC 2.69 M/uL (4.20-5.40) L 10/30/23 04:57 Hgb 7.4 g/dl (12.0-16.0) L 10/30/23 04:57 Hct 24.6 % (37.0-47.0) L 10/30/23 04:57 MCV 91.4 fL (80.0-100.0) 10/30/23 04:57 MCH 27.5 pg (25.0-34.0) 10/30/23 04:57 MCHC 30.1 g/dL (32.0-36.0) L 10/30/23 04:57 RDW Std Deviation 63.1 fL (36.4-46.3) H 10/30/23 04:57 RDW Coeff of Irasema 18.7 % (11.5-14.5) H 10/30/23 04:57 Plt Count 178 K/uL (130-400) 10/30/23 04:57 MPV 11.0 fL (9.4-12.4) 10/30/23 04:57 Immature Gran % (Auto) 0.2 % 10/30/23 04:57 Neut % (Auto) 80.1 % 10/30/23 04:57 Lymph % (Auto) 10.2 % 10/30/23 04:57 [place] % (Auto) 7.7 % 10/30/23 04:57 Eos % (Auto) 1.1 % 10/30/23 04:57 Baso % (Auto) 0.7 % 10/30/23 04:57 Neut # (Auto) 3.52 K/uL (1.40-6.50) 10/30/23 04:57 Lymph # (Auto) 0.45 K/uL (1.20-3.40) L 10/30/23 04:57 [place] # (Auto) 0.34 K/uL (0.11-0.59) 10/30/23 04:57 Eos # (Auto) 0.05 K/uL (0.00-0.50) 10/30/23 04:57 Baso # (Auto) 0.03 K/uL (0.00-0.20) 10/30/23 04:57 Immature Gran # (Auto) 0.01 K/uL (0.01-0.20) 10/30/23 04:57 Polychromasia 1+ 10/30/23 04:57 Tear Drop Cells 1+ 10/30/23 04:57 Ovalocytes 1+ 10/30/23 04:57 Sodium 136 mmol/L (136-145) 10/30/23 04:57 Potassium 4.9 mmol/L (3.5-5.1) 10/30/23 04:57 Chloride 98 mmol/L (98-107) 10/30/23 04:57 Carbon Dioxide 26 mmol/L (21-32) 10/30/23 04:57 Anion Gap 12 (3-11) H 10/30/23 04:57 BUN 86 mg/dl (6-23) H 10/30/23 04:57 Creatinine 4.68 mg/dl (0.6-1.2) H* 10/30/23 04:57 Est Cr Clr Drug Dosing 6.9 ml/min 10/30/23 04:57 Est GFR ( Amer) 9.2 ml/min 10/30/23 04:57 Est GFR (Non-Af Amer) 7.9 ml/min 10/30/23 04:57 BUN/Creatinine Ratio 18.4 (10-20) 10/30/23 04:57 Glucose 176 mg/dl (70-99(Fasting)) H 10/30/23 04:57 Calcium 8.1 mg/dl (8.6-10.3) L 10/30/23 04:57 Phosphorus 6.9 mg/dl (2.5-4.9) H 10/30/23 04:57 Magnesium 2.6 mg/dl (1.7-2.4) H 10/30/23 04:57 Total Bilirubin 0.4 mg/dl (0.2-1.0) 10/30/23 04:57 AST 27 U/L (13-39) 10/30/23 04:57 ALT 19 U/L (7-52) 10/30/23 04:57 Alkaline Phosphatase 285 U/L (34-104) H 10/30/23 04:57 C-Reactive Protein < 0.50 mg/dl (0-0.5) 10/30/23 04:57 Total Protein 6.3 gm/dl (6.0-8.3) 10/30/23 04:57 Albumin 3.3 gm/dl (3.4-5.0) L 10/30/23 04:57 Globulin 3.0 gm/dl (2.5-4.0) 10/30/23 04:57 Albumin/Globulin Ratio 1.1 (0.9-2) 10/30/23 04:57 Lipase 74 U/L (11-82) 10/30/23 04:57 Impressions Chest X-Ray 10/30/23 05:13 XR chest 1V portable HISTORY: Lower extremity edema. Shortness of breath. COMPARISON: Chest 08/25/2023. FINDINGS: There are low lung volumes. No pneumothorax. A right jugular catheter terminates in the SVC. Thoracolumbar spinal fusion hardware is again noted. Small right and moderate left pleural effusion with bibasilar densities persist. The heart remains enlarged. Mild interstitial pulmonary edema again noted. Stable bilateral hilar enlargement. No acute fractures. Degenerative changes within the shoulders. IMPRESSION: 1. Cardiomegaly with mild interstitial pulmonary edema. 2. Bilateral pleural effusions and bibasilar densities persist. ACT 112: Negative or not required by law. Electronically signed by: Rohit Jim M.D. 10/30/2023 7:31 AM 02/24 Echocardiogram: LVEF > 70%, moderate to severe aortic stenosis, moderate pulmonary HTN w/ RVSP 49 mm Hg PG Care Time/CCT Total # of Minutes Spent Total Time Spent with Patient: Total time spent is greater than 50% in coordination of care (as documented) at patient's floor/unit and/or counseling patient: Coding Level of Care Code 76306 IN/OBS CONSULT LVL 5,80M Diagnoses ESRD on dialysis N18.6; Z99.2 Anemia D64.9 Aortic stenosis I35.0 Pleural effusion J90
[2023-10-30] MEDS: EPOETIN ALFA 10,000 UNITS/ML VIAL IV ONE (14:37)
[2023-10-30] MEDS: BETHANECHOL CHL 25 MG TAB PO SCH (17:10)
[2023-10-30] MEDS: FAMOTIDINE 40 MG TABLET PO SCH (17:10)
[2023-10-30] MEDS: CHOLECALCIFEROL 25 MCG (1000 UNITS) TAB PO SCH (17:10)
[2023-10-30] MEDS: FUROSEMIDE 80 MG TAB PO SCH (17:11)
[2023-10-30] MEDS: PANTOprazole 40 MG TAB PO SCH (17:11)
[2023-10-30] MEDS: rOPINIRole HCL 0.25 MG TABLET PO SCH (17:13)
[2023-10-30] MEDS: SERTRALINE HCL 50 MG TABLET PO SCH (17:13)
[2023-10-30] MEDS: CALCIUM ACETATE 667 MG CAP/TAB PO SCH (17:40)
[2023-10-30] MEDS: HEPARIN SOD 5,000 UNIT/0.5 ML VIAL SQ SCH (17:46)
[2023-10-30] MEDS ORDERED: Nursing to Pharmacy Communication SCH (18:15)
[2023-10-30] MEDS: ATORVASTATIN 10 MG TAB PO SCH (20:20)
[2023-10-30] MEDS: rOPINIRole HCL 1 MG TABLET PO SCH (20:27)
[2023-10-30] MEDS ORDERED: rOPINIRole HCL 0.25 MG TABLET PO SCH (21:00)
[2023-10-31] MEDS: LEVOTHYROXINE SODIUM 150 MCG TABLET PO SCH (05:20)
[2023-10-31] MEDS: HEPARIN SOD 5,000 UNIT/0.5 ML VIAL SQ SCH (05:20)
[2023-10-31 07:16] LABS: BUN Creatinine Ratio 12.6 (10-20); Calcium 8.2 mg/dl (8.6-10.3); Creatinine Clr Calc Pharmacy 8.4 ml/min; Est GFR (African American) 12.4 ml/min; Est GFR (Non-African American) 10.7 ml/min
[2023-10-31 07:35] LABS: Basophils # (auto) 0.03 K/uL (0.00-0.20); Basophils % (auto) 0.7 %; Eosinophils # (auto) 0.08 K/uL (0.00-0.50); Eosinophils % (auto) 1.9 %; Hematocrit (blood only) 28.4 % (37.0-47.0); Hemoglobin 8.7 g/dl (12.0-16.0); Immature Granulocytes # (auto) 0.02 K/uL (0.01-0.20); Immature Granulocytes % (auto) 0.5 %; Lymphocytes # (auto) 0.51 K/uL (1.20-3.40); Mean Corpuscular Hemoglobin 27.7 pg (25.0-34.0); Mean Corpuscular Hgb Conc 30.6 g/dL (32.0-36.0); Mean Corpuscular Volume 90.4 fL (80.0-100.0); Mean Platelet Volume 10.9 fL (9.4-12.4); Monocytes % (auto) 9.4 %; Neutrophils # (auto) 3.22 K/uL (1.40-6.50); Neutrophils % (auto) 75.5 %; Platelet Count 159 K/uL (130-400); RDW Coefficient of Variation 18.7 % (11.5-14.5); RDW Standard Deviation 61.7 fL (36.4-46.3); Red Blood Count 3.14 M/uL (4.20-5.40); White Blood Count 4.26 K/ul (4.8-10.8)
--- NOTE | 2023-10-31 07:35 | Hospitalist Progress Note ---
Date of Service October 31, 2023 Assessment & Plan (1) Anemia: Plan: While she has history of GAVE, does not give an acute history consistent with any active bleedingseems more consistent with poor hematopoiesis. At any rate, would likely benefit from transfusion. -Transfused with 1 Packed RBC during dialysis; Today's Hb: 8.7; symptom craig better than admission (2) ESRD on dialysis: Plan: - Ongoing Dialysis Cardiac F/U advised on discharge as per nephrology. (3) Physical deconditioning: Plan: OT /PT evaluation: Independent Functional mobility; no more thgerapy needed at [facility]; can go home (4) DVT prophylaxis: Plan: heparin subcu (5) Discharge planning issues: Plan: Discharge to home. Will communicate with her daughter before discharge; she says she will be here this afternoon. Admission and Anticipated Discharge Date Admission Date: October 30, 2023 Subjective She is feeling much better today. She says she could walk around with physical therapy. Breathing is better. Appetite to baseline. She was trying to call her daughter this morning; was expecting to go back home. No new bleeding, no increased SOB, chest pain, swelling of legs. She is well oriented, says she has appointment for her bleeding; she has to travel to [facility]. Review of Systems Constitutional: no fever Eyes: no problem reported Ear, Nose, Mouth, Throat: no problem reported Respiratory: + dyspnea Cardiovascular: no chest pain Gastrointestinal: no nausea, no vomiting and no diarrhea/loose stools Physical Exam Constitutional: + frail appearing; not in distress Eyes: PERRL, conjunctivae normal, anicteric sclerae ENMT: external ear and nose normal, oropharynx normal Neck: trachea midline, no thyromegaly (IJ TCC w/ clean dry dressing) Respiratory: Auscultation: + diminished lung sounds (at bases bilaterally) Cardiovascular: Heart Sounds: + murmur (harsh aortic outflow murmur) Extremities: + edema (3+ LE swelling) Gastrointestinal (Abdomen): normal bowel sounds, soft, nontender, no hepatosplenomegaly Neurologic: Speech / Cognition: normal speech and normal cognition Results & Data Results & Data Vital Signs (Past 12 Hours) Vital Signs Temp Pulse Resp BP Pulse Ox O2 Del Method 10/30/23 19:54 36.6 C 72 18 105/64 96 Room Air 10/30/23 19:35 Room Air Resident Activity Tracking Resident Involvement: Resident Care Provided Care Provided: Adult Hospital Medicine
[2023-10-31] MEDS: OMEGA-3 (PURIFIED FISH OIL) 1 GM CAP PO SCH (08:34)
[2023-10-31] MEDS: CYANOCOBALAMIN (B-12) 500 MCG TABLET PO SCH (08:35)
[2023-10-31] MEDS: CALCIUM 600MG + VIT D 400 IU TAB PO SCH (08:35)
--- NOTE | 2023-10-31 09:03 | Nephrology Progress Note ---
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 Patient has been on HD since 08/23. Her access remains a R IJ TCC * Outpatient HD Rx: Dr. Will, [facility] [place], TTS, 3 hr 3K 2.5Ca F-180 EDW 61 kg * No acute indication for HD today. Will plan next HD for am and continue UF as per Crit-line monitor (2) Anemia: Plan: * H/o GAVE * Transfused one unit PRBC during HD 10/30/23 (3) Aortic stenosis: Plan: * 02/24 echocardiogram w/ moderate-severe * Consider follow up echocardiogram to assess for progression of valvular heart disease. Question whether patient is progressing to critical due to her LE swelling and bilateral pleural effusions despite dropping EDW at HD unit (4) Pleural effusion: Plan: * 10/31/23 CXR is essentially unchanged despite 3.7 L UF w/ HD yesterday. Patient has L>R pleural effusions. Consider consultation w/ pulmonology for thoracentesis. * Clinically suspect effusions on the basis of progressive valvular heart disease Admission and Anticipated Discharge Date Admission Date: October 30, 2023 Subjective Ms. Ray was evaluated in her hospital room this morning. She was breathing comfortably on RA. HD provided yesterday. 3700 cc UF obtained. One unit PRBC was transfused during HD. Review of Systems Constitutional: no fever Eyes: no problem reported Ear, Nose, Mouth, Throat: no problem reported Respiratory: no cough and no dyspnea Cardiovascular: no chest pain Gastrointestinal: no nausea, no vomiting and no diarrhea/loose stools Physical Exam Constitutional: + frail appearing; not in distress Eyes: PERRL, conjunctivae normal, anicteric sclerae ENMT: external ear and nose normal, oropharynx normal Neck: trachea midline, no thyromegaly (IJ TCC w/ clean dry dressing) Respiratory: Auscultation: + diminished lung sounds (at bases bilaterally) and + rales Cardiovascular: Heart Sounds: + murmur (harsh aortic outflow murmur) Extremities: + edema (3+ LE swelling) Gastrointestinal (Abdomen): normal bowel sounds, soft, nontender, no hepatosplenomegaly Neurologic: Speech / Cognition: normal speech and normal cognition Results & Data Vital Signs (Past 12 Hours) Vital Signs Temp Pulse Resp BP Pulse Ox O2 Del Method 10/31/23 08:10 36.3 C L 80 16 156/72 H 97 Room Air Laboratory Results Laboratory Results - last 24 hr 10/30/23 10/31/23 10/31/23 11:02 05:30 07:16 WBC Cancelled 4.26 L RBC Cancelled 3.14 L Hgb Cancelled 8.7 L Hct Cancelled 28.4 L MCV Cancelled 90.4 MCH Cancelled 27.7 MCHC Cancelled 30.6 L RDW Std Deviation Cancelled 61.7 H RDW Coeff of Irasema Cancelled 18.7 H Plt Count Cancelled 159 MPV Cancelled 10.9 Immature Gran % (Auto) Cancelled 0.5 Neut % (Auto) Cancelled 75.5 Lymph % (Auto) Cancelled 12.0 [place] % (Auto) Cancelled 9.4 Eos % (Auto) Cancelled 1.9 Baso % (Auto) Cancelled 0.7 Neut # (Auto) Cancelled 3.22 Lymph # (Auto) Cancelled 0.51 L [place] # (Auto) Cancelled 0.40 Eos # (Auto) Cancelled 0.08 Baso # (Auto) Cancelled 0.03 Immature Gran # (Auto) Cancelled 0.02 Absolute Nucleated RBC Cancelled Nucleated RBC % (auto) Cancelled Neutrophils % (Manual) Cancelled Band Neutrophils % Cancelled Lymphocytes % (Manual) Cancelled Prolymphocyte % Cancelled Reactive Lymphs % (Man) Cancelled Monocytes % (Manual) Cancelled Eosinophils % (Manual) Cancelled Basophils % (Manual) Cancelled Metamyelocytes % (Man) Cancelled Myelocytes % (Man) Cancelled Promyelocytes % (Man) Cancelled Blast Cells % (Manual) Cancelled Plasma Cell % (Manual) Cancelled Other Cells % Cancelled Nucleated RBC % Cancelled Neutrophils # (Manual) Cancelled Band Neutrophils # Cancelled Total Absolute Neuts Cancelled Lymphocytes # (Manual) Cancelled Prolymphocyte # Cancelled Reactive Lymphs # Cancelled Total Abs Lymphocytes Cancelled Monocytes # (Manual) Cancelled Eosinophils # (Manual) Cancelled Basophils # (Manual) Cancelled Metamyelocytes # (Man) Cancelled Myelocytes # (Manual) Cancelled Promyelocytes # (Man) Cancelled Blast Cells # (Man) Cancelled Plasma Cell # (Manual) Cancelled Other Cells # Cancelled Nucleated RBCs # (Man) Cancelled Hypersegmented Neuts Cancelled Hyposegmented Neuts Cancelled Hypogranular Neuts Cancelled Large Granular Lymphs Cancelled # Lrg Granular Lymphs Cancelled Hairy Cells Cancelled Smudge Cells Cancelled Toxic Granulation Cancelled Toxic Vacuolation Cancelled Dohle Bodies Cancelled Tasha Rods Cancelled Platelet Estimate Cancelled Hypogranular Platelets Cancelled Giant Platelets Cancelled Platelet Satelliting Cancelled RBC Morphology Cancelled Polychromasia Cancelled Hypochromasia Cancelled Poikilocytosis Cancelled Basophilic Stippling Cancelled Anisocytosis Cancelled Microcytosis Cancelled Macrocytosis Cancelled Spherocytes Cancelled Pappenheimer Bodies Cancelled Sickle Cells Cancelled Target Cells Cancelled Tear Drop Cells Cancelled Ovalocytes Cancelled Stomatocytes Cancelled Hawkins-Alpaugh Bodies Cancelled Echinocytes Cancelled Acanthocytes (Spur) Cancelled Rouleaux Cancelled RBC Agglutinates Cancelled Schistocytes Cancelled Sezary Cell Cancelled Sodium 137 Potassium 5.0 Chloride 103 Carbon Dioxide 25 Anion Gap 9 BUN 46 H D Creatinine 3.66 H D Est Cr Clr Drug Dosing 8.4 Est GFR ( Amer) 12.4 Est GFR (Non-Af Amer) 10.7 BUN/Creatinine Ratio 12.6 Glucose 133 H Calcium 8.2 L Blood Parasites ID Cancelled Blood Type O Positive Antibody Screen NEGATIVE Crossmatch See Detail PG Care Time/CCT Total # of Minutes Spent Total Time Spent with Patient: Total time spent is greater than 50% in coordination of care (as documented) at patient's floor/unit and/or counseling patient: Coding Level of Care Code 18722 SUB INP/OBS CARE 3/50MIN Diagnoses ESRD on dialysis N18.6; Z99.2 Anemia D64.9 Aortic stenosis I35.0 Pleural effusion J90
--- NOTE | 2023-10-31 09:51 | XRay Report ---
XR chest 1V portable CLINICAL HISTORY: Congestive heart failure. COMPARISON STUDY: Chest radiograph October 30, 2023. FINDINGS: Dual lumen right internal jugular central venous catheter and thoracolumbar spine fusion wilburn rdware are incidentally noted. There is no pneumothorax. Moderate left and small right pleural effusi ons are unchanged. There are associated bibasilar opacities. Pulmonary edema persists. The appearance of the chest is unchanged. IMPRESSION: No change in appearance of the chest. Interstitial pulmonary edema with moderate left an d small right pleural effusions. ACT 112: Negative or not required by law. Electronically signed by: William Hargrove M.D. 10/31/2023 9:50 AM
[2023-10-31 12:54] VITALS: PULSE 66
[2023-10-31 14:25] VITALS: BP 125/65; RESP 18; TEMP 97.3; O2SAT 100
--- NOTE | 2023-10-31 16:51 | Communication Note ---
Date of Service: October 31, 2023 have tried to contact dtr - unable to connect. pt noted earlier that she would likely be in by ~4p; at 430 pt noted dtr would likely be here by ~530p. tried to call again on 2 different #s. will revisit pt in room shortly
--- NOTE | 2023-10-31 17:55 | Communication Note ---
Date of Service: October 31, 2023 By CMS guidelines, a determination that the admission or continued stay is not medically necessary has been made by a member of the UR committee and a phy sician for this hospital stay, therefore a Code 44 will be completed and the Inpatient admission will be changed to outpatient.
--- NOTE | 2023-10-31 18:01 | Billing Data ---
Date of Service October 31, 2023 Coding Level of Care Code 39548 IN/OBS DISCH 30 MIN/LESS
--- NOTE | 2023-10-31 18:01 | Discharge Summary ---
Discharge Summary Date of Service October 31, 2023 Principal Dx & Hospital Course #1 = Principal Diagnosis (1) Generalized weakness: Suspect multifactorialanemia, malnutrition (seems to be severe protein calorie malnutritionacuity is really hard to discern) as well as age/ESRD/deconditioning. Acutely improved with transfusion suggesting that anemia was the reason for admission this time. Stable for home, did well with PT. 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 Suggested weekly CBC with outpatient transfusions as neededafter discussion with patient's daughter this is already underway, just sounds like possibly they need to have a slightly more liberal transfusion threshold (3) ESRD on dialysis: ongoing outpatient dialysis (4) Physical deconditioning: as well as what seems to be severe protein/calorie malnutritionduration uncertain. did well enough with PT to be able to go home. Extensive discussion on nutritionsee discharge instructions. (5) DVT prophylaxis: heparin subcu (6) Discharge planning issues: safe/stable for home Notes For Next Care Provider Medication Changes From Visit none Admission HPI Per Admitting Provider patient is a very pleasant 83-year-old female who presents after working up feeling weak and shaky this morning. She notes whenever she was trying to get up she felt very weak her legs felt funny and she felt very shaky. She came to the ER for further evaluation. She did not fall, she did not suffer any injuries, she recalls maybe feeling a little bit weaker than normal yesterday, but before that was at what she thought was her usual baseline. No dark black stool no tarry stool. Generally a longstanding fatigue and malaise. Seems to have a bit of a poor appetite, it is a little bit hard to quantify her p.o. intake, but it sounds like she routinely does not eat a lot. She relates 100 pound weight lossbut dates this back to whenever she was still working through now, and is really not able to put much of a timeline on her weight loss even over the last 6 months other than relating that she does have a poor appetite. Relates having been [facility] while [facility] (when asked to quantify in the room she thought it was last summer or maybe the year before, on chart review it was July of this year) but at any rate she notes she did not like being there. Notes feeling better right now. Updated Medication List Medication Instructions Recorded Confirmed Type cholecalciferol (vitamin D3) 25 2,000 unit PO QAM 05/29/18 10/30/23 History mcg (1,000 unit) capsule (Vitamin D3) cyanocobalamin (vitamin B-12) 1,000 mcg PO QAM 11/12/20 10/30/23 History 1,000 mcg tablet (Vitamin B-12) bethanechol chloride 50 mg tablet 50 mg PO BID #180 tabs 04/19/21 10/30/23 Rx diaper,brief,adult,disposable #150 ea 12/07/21 09/28/23 Rx (Fitted Briefs X-Large) loperamide 2 mg capsule 2 mg PO UD PRN Diarrhea 05/29/22 10/30/23 History estradiol 0.01% (0.1 mg/gram) 1 applic vaginal 3XWK PRN ONLY 05/30/22 10/30/23 History vaginal cream WHEN BURNING nystatin 100,000 unit/gram topical 1 applic topical BID PRN IRRITATION 07/10/22 10/30/23 History powder furosemide 80 mg tablet 80 mg PO BID #180 tabs 05/28/23 10/30/23 Rx pantoprazole 40 mg tablet,delayed 40 mg PO BID #60 tabs 06/27/23 10/30/23 Rx release (Protonix) triamcinolone acetonide 0.5 % 1 applic topical BID PRN skin 07/03/23 10/30/23 Rx topical cream irritation #60 grams calcium acetate 667 mg tablet 667 mg PO TID 07/06/23 10/30/23 History famotidine 40 mg tablet 40 mg PO BID #60 tabs 07/06/23 10/30/23 Rx sertraline 50 mg tablet 50 mg PO DAILY #30 tabs 07/09/23 10/30/23 Rx calcium carbonate 600 mg-vitamin 1 tab PO DAILY 07/23/23 10/30/23 History D3 10 mcg (400 unit) tablet (Calcium 600 + D(3)) omega-3 fatty acids 1,000 mg 1,000 mg PO DAILY 07/23/23 10/30/23 History capsule fluticasone propionate 50 1 spray intranasal DAILY #16 grams 08/16/23 10/30/23 Rx mcg/actuation nasal spray,suspension (Flonase Allergy Relief) atorvastatin 10 mg tablet (Lipitor) 10 mg PO HS #90 tabs 08/20/23 10/30/23 Rx dimethicone 1.3 % topical cream 1 applic topical DAILY PRN skin 08/25/23 10/30/23 History (Cavilon Durable Barrier) irritation levothyroxine 150 mcg capsule 150 mcg PO QAM #90 caps 08/31/23 10/30/23 Rx methocarbamol 500 mg tablet 500 mg PO TID PRN muscle spasm #90 09/20/23 10/30/23 Rx tabs ropinirole 0.5 mg tablet 0.5 mg PO UD #90 tabs 09/20/23 10/30/23 Rx tramadol 50 mg tablet 50 mg PO BID PRN Pain #60 tabs 10/29/23 10/30/23 Rx zwfazdpvxzus-mzudnpjg-fjepwky-folic 1 tab PO DAILY 10/30/23 10/30/23 History acid 400 mcg-vit K1 20 mcg tablet Hospital Stay Data Consultations 10/30/23 08:08 ED Decision to Admit Stat 10/30/23 11:00 Consult Nephrology Routine Pending Results Patient Have Any Pending Studies at Discharge: No Discharge Instructions Given to Patient (Per Discharging Provider) weakness -As we have discussed, it appears that your weakness has multiple factors. Given how much better you feel today than yesterday, the anemia was certainly "the straw that broke the camel's back" but it appears there are several other factors at play: Anemia, end-stage kidney disease on dialysis, not getting enough nutrition, 83 years of age, and possibly to a degree your tight aortic valve. 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 This usually does not cause a hemorrhage, but can cause a small amount of blood loss all the time. While gastroenterology intervention can sometimes help, usually whenever they treat the blood vessels they see, it is sort of like "whack a mole" and that they are able to cauterize or stop bleeding and some blood vessels, but then over time new ones dilate and ooze. That is not to say that intervention for GAVE is not worth your while, it is more to realize that it can help slow the bleeding, but generally does not fix it ---> With end-stage renal disease, her bone marrow does not get the signal from our kidneys to stimulate making new red blood cells, so our bone marrow becomes a much more sluggish production factory leading to anemia from not making enough red blood cells to keep up. The kidney doctors will give erythropoietin medications to stimulate your bone marrow, but this usually helps but not definitively fixes the problem ---> because of this, the rational way to view your anemia is to look at it as the next time you need a transfusion is a "when not an if"i.e. if we work off of the assumption you will reach a point of requiring transfusion again, we can hopefully proactively catch the issue when it is still minor, rather than being significant enough to land you in the hospital. For the short-term, I would recommend having blood counts (CBC) checked weeklyand then depending on your trend, hopefully they can space things out more, versus continuing to check once a week. The idea with this would be that if we start to see a trend down, we can often arrange a transfusion as an outpatient, stay a step ahead of the anemia before you really "crash out", help blunt getting weaker by not letting you fall behind, and hopefully keep you out of the hospital. nutrition - While it was hard to determine exactly how long the time course was that you have been losing weight, it is clear that you are falling behind nutritionally. The easiest way to look at nutrition is to imagine it like a "budget" - if we look at nutrition like a budget, then we will look at a calorie essentially like a dollarall the calorie is is how we measure energy to feel the human body, but if we do math on you, it requires somewhere around [id number] terrell for you to fuel your body ("break even on the budget") - with that in mind, then what you would want to do every day is make sure that you get to a minimum of 1200 terrell each day. While it can be a bit monotonous to log how many calories you eat, it is definitely not that difficult to doanything you eat with the label will have the calories per serving on the labeland you would simply look at how many calories per serving and how many servings you ate. If it is food without a label (such as a chicken breast or an apple, etc.)then it is very easy to look up a rough estimate of how many calories any particular item of food has. From there, you would simply be trying to add things up to 1200 or more before you went to bed at night. This does not need to be an exact science, of course, but usually what I find is when people are judging whether or not they got adequate nutrition by how they feel, they often come up way short of their "budget" - another benefit to tracking your calories every day is that when you see that you are coming up short, you have time to "play catch up" before the day is over. This is where things like protein shakes (boost/Ensure) or things like ice cream come into playif you are having a bad day nutritionally, and you are only on track for 800 terrell, it will be far better to get the extra 4-500 terrell from something like boost or ice cream then to come up short of your 1200-calorie "budget". - It would also be worthwhile to weigh yourself about once a week, so that if you see that you are continuing to lose weight, you can revisit if you are tracking your calories accurately, or if you are in need of taking any even more nutrition. Total Time Total Time Spent Total Time Spent (In Minutes): <30
--- NOTE | 2023-10-31 18:02 | Discharge Summary ---
Date of Service October 31, 2023 Admission HPI Per Admitting Provider patient is a very pleasant 83-year-old female who presents after working up feeling weak and shaky this morning. She notes whenever she was trying to get up she felt very weak her legs felt funny and she felt very shaky. She came to the ER for further evaluation. She did not fall, she did not suffer any injuries, she recalls maybe feeling a little bit weaker than normal yesterday, but before that was at what she thought was her usual baseline. No dark black stool no tarry stool. Generally a longstanding fatigue and malaise. Seems to have a bit of a poor appetite, it is a little bit hard to quantify her p.o. intake, but it sounds like she routinely does not eat a lot. She relates 100 pound weight lossbut dates this back to whenever she was still working through now, and is really not able to put much of a timeline on her weight loss even over the last 6 months other than relating that she does have a poor appetite. Relates having [facility] while [facility] (when asked to quantify in the room she thought it was last summer or maybe the year before, on chart review it was July of this year) but at any rate she notes she did not like being there. Notes feeling better right now. Admission Exam Per Admitting Provider General she is awake alert fatigued and frail but no distress. HEENT normocephalic atraumatic mucous membranes moist. Breathing unlabored no accessory muscle use good effort. Abdomen is soft nondistended nontender of note specifically no epigastric tenderness no guarding rebound or rigidity. Skin shows bilateral lower extremity about 1+ edema with red venous stasis type changes but no real tenderness no crepitus no significant warmth. Neuro shows cranial nerves II through XII grossly intact gross motor and sensory intact. Principal Diagnosis Weakness: Multifactorial; Anemia with CKD under dialysis, Malnutrition Discharge Exam Constitutional: + frail appearing; not in distress Eyes: PERRL, conjunctivae normal, anicteric sclerae ENMT: external ear and nose normal, oropharynx normal Neck: trachea midline, no thyromegaly (IJ TCC w/ clean dry dressing) Respiratory: Auscultation: + diminished lung sounds (at bases bilaterally) Cardiovascular: Heart Sounds: + murmur (harsh aortic outflow murmur) Extremities: + edema (3+ LE swelling) Gastrointestinal (Abdomen): normal bowel sounds, soft, nontender, no hepatosplenomegaly Neurologic: Speech / Cognition: normal speech and normal cognition Discharge Data Allergies Allergy/AdvReac Type Severity Reaction Status Date / Time sulfamethoxazole AdvReac Unknown REMOTE Verified 10/30/23 10:42 [From Bactrim] HX/PT NOT SURE REACTION trimethoprim [From Bactrim] AdvReac Unknown REMOTE Verified 10/30/23 10:42 HX/PT NOT SURE REACTION Consultations 10/30/23 08:08 ED Decision to Admit Stat 10/30/23 11:00 Consult Nephrology Routine Hospital Course (1) CKD (chronic kidney disease): (2) Anemia: (3) ESRD on dialysis: Plan (1) Generalized weakness: Suspect multifactorialanemia, malnutrition (seems to be severe protein calorie malnutritionacuity is really hard to discern) as well as age/ESRD/deconditioning. Treat factors at play as best as possible. PT/OT ongoing: Independent Functional mobility can go home (2) Anemia: While she has history of GAVE, does not give an acute history consistent with any active bleedingseems more consistent with poor hematopoiesis. -Transfused with 1 Packed RBC during dialysis; Today's Hb: 8.7; symptom craig better than admission (3) ESRD on dialysis: - Ongoing Dialysis Cardiac F/U advised on discharge as per nephrology. (4) Physical deconditioning: Plan: OT /PT evaluation: Independent Functional mobility; no more therapy needed at [facility]; can go home Total Time Total Time Spent Total Time Spent (In Minutes): See Attending'a attestation Discharge Plan Discharge Items Patient Disposition: Home - Self-Care Reason For Visit: edema, anemia Discharge Diagnosis: anemia Activity: Resume your previous activity Non-emergency contact: Primary Care Provider and [employer] Call non-emergency contact if: you have any medication questions and your symptoms worsen Follow-up/Referrals: Agatha Alfaro, [Primary Care Provider] - Diet: Dialysis Renal Addtl Attending Provider Instructions: Weakness -As we have discussed, it appears that your weakness has multiple factors. Given how much better you feel today than yesterday, the anemia was certainly "the straw that broke the camel's back" but it appears there are several other factors at play: Anemia, end-stage kidney disease on dialysis, not getting enough nutrition, 83 years of age, and possibly to a degree your tight aortic valve. 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 This usually does not cause a hemorrhage, but can cause a small amount of blood loss all the time. While gastroenterology intervention can sometimes help, usually whenever they treat the blood vessels they see, it is sort of like "whack a mole" and that they are able to cauterize or stop bleeding and some blood vessels, but then over time new ones dilate and ooze. That is not to say that intervention for GAVE is not worth your while, it is more to realize that it can help slow the bleeding, but generally does not fix it ---> With end-stage renal disease, her bone marrow does not get the signal from our kidneys to stimulate making new red blood cells, so our bone marrow becomes a much more sluggish production factory leading to anemia from not making enough red blood cells to keep up. The kidney doctors will give erythropoietin medications to stimulate your bone marrow, but this usually helps but not definitively fixes the problem ---> because of this, the rational way to view your anemia is to look at it as the next time you need a transfusion is a "when not an if"i.e. if we work off of the assumption you will reach a point of requiring transfusion again, we can hopefully proactively catch the issue when it is still minor, rather than being significant enough to land you in the hospital. For the short-term, I would recommend having blood counts (CBC) checked weeklyand then depending on your trend, hopefully they can space things out more, versus continuing to check once a week. The idea with this would be that if we start to see a trend down, we can often arrange a transfusion as an outpatient, stay a step ahead of the anemia before you really "crash out", help blunt getting weaker by not letting you fall behind, and hopefully keep you out of the hospital. Nutrition - While it was hard to determine exactly how long the time course was that you have been losing weight, it is clear that you are falling behind nutritionally. The easiest way to look at nutrition is to imagine it like a "budget" - if we look at nutrition like a budget, then we will look at a calorie essentially like a dollarall the calorie is is how we measure energy to feel the human body, but if we do math on you, it requires somewhere around 5311-1522 terrell for you to fuel your body ("break even on the budget") - with that in mind, then what you would want to do every day is make sure that you get to a minimum of 1200 terrell each day. While it can be a bit monotonous to log how many calories you eat, it is definitely not that difficult to doanything you eat with the label will have the calories per serving on the labeland you would simply look at how many calories per serving and how many servings you ate. If it is food without a label (such as a chicken breast or an apple, etc.)then it is very easy to look up a rough estimate of how many calories any particular item of food has. From there, you would simply be trying to add things up to 1200 or more before you went to bed at night. This does not need to be an exact science, of course, but usually what I find is when people are judging whether or not they got adequate nutrition by how they feel, they often come up way short of their "budget" - another benefit to tracking your calories every day is that when you see that you are coming up short, you have time to "play catch up" before the day is over. This is where things like protein shakes (boost/Ensure) or things like ice cream come into playif you are having a bad day nutritionally, and you are only on track for 800 terrell, it will be far better to get the extra 4-500 terrell from something like boost or ice cream then to come up short of your 1200-calorie "budget". - It would also be worthwhile to weigh yourself about once a week, so that if you see that you are continuing to lose weight, you can revisit if you are tracking your calories accurately, or if you are in need of taking any even more nutrition. Pending Studies at Discharge: No Stand-Alone Forms: My [facility] [employer], Smoking Cessation Medications and DC Order Prescriptions: Continued bethanechol chloride 50 mg tablet 50 mg PO BID Qty: 180 3RF (DME) Fitted Briefs X-Large Misc See Rx Instructions .Route Qty: 150 5RF Rx Instructions: using 4-5 per day R19.7 furosemide 80 mg tablet 80 mg PO BID Qty: 180 1RF pantoprazole [Protonix] 40 mg tablet,delayed release (DR/EC) 40 mg PO BID Qty: 60 5RF triamcinolone acetonide 0.5 % cream 1 applic topical BID PRN (Reason: skin irritation) Qty: 60 1RF sertraline 50 mg tablet 50 mg PO DAILY Qty: 30 2RF atorvastatin [Lipitor] 10 mg tablet 10 mg PO HS Qty: 90 1RF levothyroxine 150 mcg capsule 150 mcg PO QAM Qty: 90 2RF ropinirole 0.5 mg tablet 0.5 mg PO UD Qty: 90 1RF Rx Instructions: Take 0.5mg by mouth in the morning; then take 1.5mg by mouth at bedtime methocarbamol 500 mg tablet 500 mg PO TID PRN (Reason: muscle spasm) Qty: 90 1RF tramadol 50 mg tablet 50 mg PO BID PRN (Reason: Pain) Qty: 60 0RF calcium acetate 667 mg tablet 667 mg PO TID famotidine 40 mg tablet 40 mg PO BID Qty: 60 2RF fluticasone propionate [Flonase Allergy Relief] 50 mcg/actuation spray,suspension 1 spray intranasal DAILY Qty: 16 2RF Rx Instructions: administer into each nostril cholecalciferol (vitamin D3) [Vitamin D3] 1,000 unit Capsule 2,000 unit PO QAM loperamide 2 mg Capsule 2 mg PO UD PRN (Reason: Diarrhea) Rx Instructions: administer after each loose stool until symptoms controlled; do not exceed 8 mg per 24 hrs estradiol 0.01 % (0.1 mg/gram) cream 1 applic VAGINAL 3XWK PRN (Reason: ONLY WHEN BURNING) nystatin 100,000 unit/gram powder 1 applic TOPICAL BID PRN (Reason: IRRITATION) cyanocobalamin (vitamin B-12) [Vitamin B-12] 1,000 mcg tablet 1,000 mcg PO QAM Cavilon Durable Barrier 1.3 % cream 1 applic topical DAILY PRN (Reason: skin irritation) Rx Instructions: as needed for skin protection One-A-Day Women's 50 Plus 400-20 mcg Tablet 1 tab PO DAILY calcium carbonate-vitamin D3 [Calcium 600 + D(3)] 600 mg-10 mcg (400 unit) Tablet 1 tab PO DAILY omega-3 fatty acids 1,000 mg Capsule 1,000 mg PO DAILY Discharge Orders: Discharge Order (Routine); Ordered 10/31/23 Ordered By: Ana Gregory Admission Data Admit Date/Time: 10/30/23 08:10 Attending Provider: Bandar Guzman Admit Provider: Bandar Guzman Primary Care Provider: Agatha Alfaro Other Providers: Bandar Guzman; Earnest Burroughs; Christiano Oconnell [facility] Resident Activity Tracking Resident Involvement: Resident Care Provided Care Provided: Adult Hospital Medicine
[2023-11-01] MEDS ORDERED: HEPARIN SOD (PORCINE) 1000 UNIT/ML IV ONE (07:00)
[2023-11-01] MEDS ORDERED: SODIUM CHLORIDE 0.9% 1,000 ML IV PRN (07:00)
[2023-11-01] MEDS ORDERED: EPOETIN ALFA 10,000 UNITS/ML VIAL IV ONE (07:00)
--- NOTE | 2023-11-02 21:30 | Electrocardiogram Report ---
Test Reason : Blood Pressure : */* mmHG Vent. Rate : 70 BPM Atrial Rate : * BPM P-R Int : * ms QRS Dur : 124 ms QT Int : 484 ms P-R-T Axes : * -16 -10 degrees QTcB Int : 522 ms Sinus rhythm with 2nd degree A-V block (Mobitz I) Right bundle branch block Abnormal ECG When compared with ECG of 25-Aug-2023 15:39, Sinus rhythm is now with 2nd degree A-V block (Mobitz I) T wave inversion less evident in Anterior leads Confirmed by Delvin Sullivan ([id number] on 11/02/2023 9:30:06 PM Referred By: REFERRED SELF Confirmed By: Delvin Sullivan
== END 2023-10-31 18:23 | disposition home or self-care (01) | DRG 682 ==
LOC: ED 04:46 → EDINP 08:10 → 3E 16:33

== ENCOUNTER 2023-11-26 17:31 | Inpatient (IN) ==
--- NOTE | 2023-11-26 18:36 | Emergency Department Note ---
Impression & Plan Ambulatory dysfunction, ESRD on dialysis, Fall from standing, Generalized weakness ED Provider Note HISTORY OF PRESENT ILLNESS: Patient is an 83-year-old female presenting with back pain, left shoulder and left knee pain after a fall. Patient reports that yesterday she had fallen and was on the ground for about 3 hours before her daughter came and found her. Reports that her knee was bent in an awkward angle and she was unable to get up on her own. Patient normally ambulates with a walker. She was able to walk after her initial fall yesterday, but has declined throughout the day today and has had significant pain with ambulation. She denies any lightheadedness, dizziness or chest pain prior to her fall. She is unclear of the events leading up to her falling, but does think she just tripped. She is not on any anticoagulation or antiplatelet therapy. She denies striking her head or loss of consciousness. She is currently complaining of pain in her left shoulder and left knee. Patient is an ESRD patient and on Sunday//Sunday dialysis. ROS: as above PHYSICAL EXAM: Constitutional: Patient appears in no acute distress. HENT: Head: Normocephalic and atraumatic. Eyes: EOMI, PERRL Mouth/Throat: Mucous membranes moist. Neck: Trachea midline. Neck supple. No midline cervical spine tenderness to palpation. Cardiovascular: RRR, No murmurs, rubs or gallops. Intact distal pulses. Pulmonary/Chest: No respiratory distress. Breath sounds clear and equal bilaterally. No wheezes or rales. No chest wall tenderness to palpation. Subclavian dialysis catheter located on the right chest wall. Abdominal: Abdomen soft, no tenderness, rebound or guarding. Back: No midline spinal tenderness, no paraspinal tenderness, no CVA tenderness. Musculoskeletal: Patient has some slight erythema to the left knee. Able to flex and extend at the bilateral knees. Able to flex at the bilateral hips. No pain to palpation of the bilateral hips. Skin: Warm and dry. Patient noted to have ecchymosis to the anterior left shoulder. Psychiatric: Appropriate mood and affect for situation. Neurological: Alert and keenly responsive. CN II-XII grossly intact, moving all extremities equally and fully. MDM: - Vitals signs stable. - History obtained via patient and patient's daughter. History as above. - Chronic conditions affecting care: HTN; HLD; ESRD; DM-2 - Differential diagnoses include, but are not limited to: Hip fracture; ACS; pneumonia; humerus fracture; UTI; dysrhythmia; electrolyte abnormality - Order placed for continuous cardiac monitoring. At this time, monitor showed rate of 74 bpm with normal sinus rhythm, per my interpretation. - External medical records reviewed. Discharge summary dated 10/31/2023 was reviewed. Patient was admitted for generalized weakness at that time. It was thought to be multifactorial secondary to anemia and malnutrition. - EKG interpreted by myself showed normal sinus rhythm. Rate 72 bpm. QT 452. No acute ischemic changes. Noted to have a right bundle branch block. - Laboratory workup interpreted by myself showed normal WBC; anemia (Hgb 9.6); normal PT/INR; stable electrolytes; ESRD (Cr 5.27); elevated troponin (103.7); elevated TSH; elevated CK (540) - CXR shows chronic left pleural effusion, per my interpretation. - Xray left shoulder negative for fracture - Xray left knee negative for osseous abnormality, per my interpretation - Patient's troponin elevation likely secondary to patient's ESRD. She is not having any chest pain complaints. Did discuss results with the patient and her daughter. Expressed concern about her safety at home and her ability to get around. They were agreeable to inpatient admission for PT/OT assessment. - Discussion was had with correctional casework specialist about patient's case and need for admission - Hospitalist consulted for admission - Patient [facility] to [facility] for further evaluation and management. ASSESSMENT AND PLAN: Diagnosis: Ambulatory dysfunction; fall from standing; generalized weakness; ESRD Plan: Admit Past Med/Surg History Problem List (Updated 11/26/23 @ 22:45 by Meagan Marie MD) Generalized weakness (Acute) Fall from standing (Acute) ESRD on dialysis (Acute) Ambulatory dysfunction (Acute) Discharge planning issues DVT prophylaxis Pleural effusion CKD (chronic kidney disease) (Acute) Anemia (Acute) Shakiness (Acute) Bilateral edema of lower extremity (Acute) Physical deconditioning ESRD on dialysis (Acute) Ascites Aortic stenosis 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 Palliative care by specialist Pancytopenia Clostridioides difficile carrier Vitamin D deficiency (Chronic) Recurrent urinary tract infection 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 aguirre Osteoarthritis Hyperlipidemia History of CVA (cerebrovascular accident) (2019) ~5years ago, woke up with weakness in her rt hand; L lacunar infarct; previously on plavix>no residual effects Hiatal hernia GERD without esophagitis Fatty liver Essential tremor MINOR IN HAND Diabetic retinopathy Chronic hyponatremia Chronic diastolic heart failure CAD (coronary artery disease) Anxiety Anemia of chronic disease GAVE (gastric antral vascular ectasia) (Acute) Medical History Right wrist pain Generalized weakness Fatigue CKD (chronic kidney disease) CKD (chronic kidney disease) Sepsis Encephalopathy UTI (urinary tract infection) Lower extremity cellulitis Pleural effusion, bilateral Elevated brain natriuretic peptide (BNP) level Elevated troponin I level Pericardial effusion Elevated brain natriuretic peptide (BNP) level Non-ST elevation IA (NSTEMI) Pancytopenia Hemorrhoids History of recent hospitalization GI BLEED/LOW BLOOD COUNT/HX BLOOD TRANSFUSION - MAY 2022 - [facility] ESRD on hemodialysis tuesdays, , and saturdays currently Poor historian History of GI bleed hx 08/2021, given transfusion-per medical record REASON FOR UPCOMING PROCEDURE Hx of atrial fibrillation, no current medication per medical report History of renal dialysis , AND SAT ([facility] [place] FROM [facility]) ACCESS SITE RIGHT SIDE OF CHEST/ ? DETAILS Resistant hypertension Diabetes mellitus, type 2 Hearing deficit no hearing aids Urinary urgency Secondary hyperparathyroidism of renal origin First degree AV block Hypertension Hypothyroidism Surgical History History of esophagogastroduodenoscopy (EGD) multiple---last 08/01/2022 @ [facility] 04/06/22 at [facility] with Dr. Mich Pacheco- EGD- Gastric antral vascular ectasia with bleeding, treated with argon plasma coagulation (APC); Few angioectasias in the duodenum, treated with APC S/P pericardiocentesis 08/2021, [facility], w/dr moura Hx of cardiac catheterization 08/2021, [facility] w/Dr. Moura for increased cardiac pressures; no stents History of tooth extraction History of colonoscopy H/O varicose vein ligation S/P trigger finger release S/P knee replacement RT/LEFT History of bladder suspension procedure X 2 S/P carpal tunnel release RT/LEFT History of back surgery (04/2010) X 2 S/P hysterectomy [place] Family History Father Alcohol abuse Heart disease Myocardial infarction Hypertension Sister Pancreatic cancer Diabetes Breast cancer Brother Diabetes Alcohol abuse Stroke Other Cancer No family history of adverse response to anesthesia Denies family history of Ovarian cancer Prostate cancer Colorectal cancer Social History Smoking Status: Never smoker Second Hand Exposure: No; Do You Dip or Chew Tobacco: No; Hx Alcohol Use: No Hx Substance Use: No Preferred Language: Fijian Communication Ability: Effective Visual Impairment: No Limitations Hearing Ability: Normal Legal Stenographer Required: No Beliefs That Will Affect Care: None marital status: Single Current Living Situation: Alone Current Living Situation Comment: 1 story home with ramp to enter home current occupational status: retired How many Children do You have: 2 Feels Safe at Home: Yes Childhood Exposure to Second-Hand Smoke: No Diet: regular Diet Comment: regular caffeine: Yes (Coffee x 2 cups per day.) during the past year weight has: remained stable Dental Care, Regularly: No Physical Activity Frequency: Does not Exercise Seatbelt Use: always Sunscreen Use: Yes Assistive Devices: Walker and Wheelchair Allergies Allergies Allergy/AdvReac Type Severity Reaction Status Date / Time sulfamethoxazole AdvReac Unknown REMOTE Verified 11/21/23 11:57 [From Bactrim] HX/PT NOT SURE REACTION trimethoprim [From Bactrim] AdvReac Unknown REMOTE Verified 11/21/23 11:57 HX/PT NOT SURE REACTION Home Meds Home Medications Medication Instructions Recorded Confirmed cholecalciferol (vitamin D3) 25 2,000 unit PO QAM 05/29/18 11/21/23 mcg (1,000 unit) capsule (Vitamin D3) cyanocobalamin (vitamin B-12) 1,000 mcg PO QAM 11/12/20 11/21/23 1,000 mcg tablet (Vitamin B-12) loperamide 2 mg capsule 2 mg PO UD PRN Diarrhea 05/29/22 11/21/23 estradiol 0.01% (0.1 mg/gram) 1 applic vaginal 3XWK PRN ONLY 05/30/22 11/21/23 vaginal cream WHEN BURNING nystatin 100,000 unit/gram topical 1 applic topical BID PRN IRRITATION 07/10/22 11/21/23 powder calcium acetate 667 mg tablet 667 mg PO TID 07/06/23 11/21/23 calcium carbonate 600 mg-vitamin 1 tab PO DAILY 07/23/23 11/21/23 D3 10 mcg (400 unit) tablet (Calcium 600 + D(3)) omega-3 fatty acids 1,000 mg 1,000 mg PO DAILY 07/23/23 11/21/23 capsule dimethicone 1.3 % topical cream 1 applic topical DAILY PRN skin 08/25/23 11/21/23 (Cavilon Durable Barrier) irritation msilashiuptv-nfxtrqkv-kcltxsc-folic 1 tab PO DAILY 10/30/23 11/21/23 acid 400 mcg-vit K1 20 mcg tablet Previous Rx's Medication Instructions Recorded bethanechol chloride 50 mg tablet 50 mg PO BID #180 tabs 04/19/21 diaper,brief,adult,disposable #150 ea 12/07/21 (Fitted Briefs X-Large) furosemide 80 mg tablet 80 mg PO BID #180 tabs 05/28/23 pantoprazole 40 mg tablet,delayed 40 mg PO BID #60 tabs 06/27/23 release (Protonix) triamcinolone acetonide 0.5 % 1 applic topical BID PRN skin 07/03/23 topical cream irritation #60 grams fluticasone propionate 50 1 spray intranasal DAILY #16 grams 08/16/23 mcg/actuation nasal spray,suspension (Flonase Allergy Relief) atorvastatin 10 mg tablet (Lipitor) 10 mg PO HS #90 tabs 08/20/23 levothyroxine 150 mcg capsule 150 mcg PO QAM #90 caps 08/31/23 methocarbamol 500 mg tablet 500 mg PO TID PRN muscle spasm #90 09/20/23 tabs ropinirole 0.5 mg tablet 0.5 mg PO UD #90 tabs 09/20/23 tramadol 50 mg tablet 50 mg PO BID PRN Pain #60 tabs 10/29/23 sertraline 50 mg tablet 50 mg PO DAILY #30 tabs 11/12/23 famotidine 40 mg tablet 40 mg PO BID #60 tabs 11/19/23 psyllium seed (sugar) oral powder See Rx Instructions PO DAILY PRN 11/19/23 (Metamucil (sugar) oral powder) diarrhea #1,254 grams Results & Data (ED) Vital Signs Vital Signs - 24 hr 11/26/23 17:34 11/26/23 17:46 11/26/23 17:58 Temperature 36.7 C Temperature Source Oral Pulse Rate 75 71 Pulse Rate [Apical] 72 Pulse Rhythm Regular Pulse Rhythm [Apical] Regular Pulse Strength Normal Pulse Strength [Apical] Normal Respiratory Rate 20 20 Respiratory Effort / Characteristics Non-Labored Spontaneous Non-Labored Spontaneous Respiratory Depth Normal Normal Respiratory Pattern Regular Regular Blood Pressure 133/62 Blood Pressure [Right Arm] 133/62 Blood Pressure Mean 85 Blood Pressure Mean [Right Arm] 85 Blood Pressure Position Lying Blood Pressure Position [Right Arm] Lying Pulse Oximetry 100 100 Oxygen Delivery Method Room Air Room Air Sepsis Recent Fever Within 48 Hours No Sepsis New/Unexplained Change in Mental Status No Sepsis Action Taken by Nursing No Action Required 11/26/23 20:20 11/26/23 20:20 Temperature Temperature Source Pulse Rate 71 Pulse Rate [Apical] 74 Pulse Rhythm Regular Pulse Rhythm [Apical] Regular Pulse Strength Pulse Strength [Apical] Normal Respiratory Rate 18 20 Respiratory Effort / Characteristics Non-Labored Spontaneous Respiratory Depth Normal Respiratory Pattern Regular Blood Pressure Blood Pressure [Right Arm] Blood Pressure Mean Blood Pressure Mean [Right Arm] Blood Pressure Position Blood Pressure Position [Right Arm] Pulse Oximetry 98 98 Oxygen Delivery Method Room Air Room Air Sepsis Recent Fever Within 48 Hours Sepsis New/Unexplained Change in Mental Status Sepsis Action Taken by Nursing Laboratory Data 11/26/23 18:17 11/26/23 18:55 Lab Results 11/26/23 11/26/23 11/26/23 Range/Units 18:17 18:55 21:20 WBC 6.03 (4.8-10.8) K/ul RBC 3.41 L (4.20-5.40) M/uL Hgb 9.6 L (12.0-16.0) g/dl Hct 31.0 L (37.0-47.0) % MCV 90.9 (80.0-100.0) fL MCH 28.2 (25.0-34.0) pg MCHC 31.0 L (32.0-36.0) g/dL RDW Std Deviation 55.8 H (36.4-46.3) fL RDW Coeff of Irasema 16.9 H (11.5-14.5) % Plt Count 188 (130-400) K/uL MPV 11.4 (9.4-12.4) fL Immature Gran % (Auto) 0.2 % Neut % (Auto) 81.8 % Lymph % (Auto) 7.3 % [place] % (Auto) 8.8 % Eos % (Auto) 1.2 % Baso % (Auto) 0.7 % Neut # (Auto) 4.94 (1.40-6.50) K/uL Lymph # (Auto) 0.44 L (1.20-3.40) K/uL [place] # (Auto) 0.53 (0.11-0.59) K/uL Eos # (Auto) 0.07 (0.00-0.50) K/uL Baso # (Auto) 0.04 (0.00-0.20) K/uL Immature Gran # (Auto) 0.01 (0.01-0.20) K/uL PT Cancelled INR Cancelled Sodium 136 (136-145) mmol/L Potassium 4.6 (3.5-5.1) mmol/L Chloride 99 (98-107) mmol/L Carbon Dioxide 24 (21-32) mmol/L Anion Gap 13 H (3-11) BUN 71 H (6-23) mg/dl Creatinine 5.27 H* (0.6-1.2) mg/dl Est Cr Clr Drug Dosing 6.1 ml/min Est GFR ( Amer) 8.0 ml/min Est GFR (Non-Af Amer) 6.9 ml/min BUN/Creatinine Ratio 13.5 (10-20) Glucose 159 H (70-99(Fasting)) mg/dl Lactate 1.3 (0.4-2.0) mmol/L Calcium 8.2 L (8.6-10.3) mg/dl Magnesium 2.3 (1.7-2.4) mg/dl Total Bilirubin 0.4 (0.2-1.0) mg/dl AST 54 H (13-39) U/L ALT 27 (7-52) U/L Alkaline Phosphatase 306 H (34-104) U/L Total Creatine Kinase 540 H (26-192) U/L Troponin I High Sens 103.7 H* (0-14) pg/ml Total Protein 6.1 (6.0-8.3) gm/dl Albumin 3.1 L (3.4-5.0) gm/dl Globulin 3.0 (2.5-4.0) gm/dl Albumin/Globulin Ratio 1.0 (0.9-2) TSH 4.928 H (0.300-4.500) uIu/ml Free T4 0.88 (0.61-1.60) ng/dl Adenovirus (PCR) Not Detected (NotDetected) B. pertussis DNA (PCR) Not Detected (NotDetected) B.parapertussis DNA PCR Not Detected (NotDetected) C. pneumoniae DNA (PCR) Not Detected (NotDetected) Coronavirus OC43 (PCR) Not Detected (NotDetected) Coronavirus HKU1 (PCR) Not Detected (NotDetected) Coronavirus 229E (PCR) Not Detected (NotDetected) SARS-CoV-2 (PCR) Not Detected (NotDetected) Coronavirus NL63 (PCR) Not Detected (NotDetected) Human Metapneumovir PCR Not Detected (NotDetected) Influenza Type A (PCR) Not Detected (NotDetected) Influenza Type B (PCR) Not Detected (NotDetected) M. pneumoniae (PCR) Not Detected (NotDetected) Parainfluenza 1 (PCR) Not Detected (NotDetected) Parainfluenza 2 (PCR) Not Detected (NotDetected) Parainfluenza 3 (PCR) Not Detected (NotDetected) Parainfluenza 4 (PCR) Not Detected (NotDetected) RSV (PCR) Not Detected (NotDetected) Entero/Rhino (PCR) Not Detected (NotDetected) 11/26/23 Range/Units 21:24 WBC (4.8-10.8) K/ul RBC (4.20-5.40) M/uL Hgb (12.0-16.0) g/dl Hct (37.0-47.0) % MCV (80.0-100.0) fL MCH (25.0-34.0) pg MCHC (32.0-36.0) g/dL RDW Std Deviation (36.4-46.3) fL RDW Coeff of Irasema (11.5-14.5) % Plt Count (130-400) K/uL MPV (9.4-12.4) fL Immature Gran % (Auto) % Neut % (Auto) % Lymph % (Auto) % [place] % (Auto) % Eos % (Auto) % Baso % (Auto) % Neut # (Auto) (1.40-6.50) K/uL Lymph # (Auto) (1.20-3.40) K/uL [place] # (Auto) (0.11-0.59) K/uL Eos # (Auto) (0.00-0.50) K/uL Baso # (Auto) (0.00-0.20) K/uL Immature Gran # (Auto) (0.01-0.20) K/uL PT 11.4 INR 1.1 Sodium (136-145) mmol/L Potassium (3.5-5.1) mmol/L Chloride (98-107) mmol/L Carbon Dioxide (21-32) mmol/L Anion Gap (3-11) BUN (6-23) mg/dl Creatinine (0.6-1.2) mg/dl Est Cr Clr Drug Dosing ml/min Est GFR ( Amer) ml/min Est GFR (Non-Af Amer) ml/min BUN/Creatinine Ratio (10-20) Glucose (70-99(Fasting)) mg/dl Lactate (0.4-2.0) mmol/L Calcium (8.6-10.3) mg/dl Magnesium (1.7-2.4) mg/dl Total Bilirubin (0.2-1.0) mg/dl AST (13-39) U/L ALT (7-52) U/L Alkaline Phosphatase (34-104) U/L Total Creatine Kinase (26-192) U/L Troponin I High Sens 107.9 H* (0-14) pg/ml Total Protein (6.0-8.3) gm/dl Albumin (3.4-5.0) gm/dl Globulin (2.5-4.0) gm/dl Albumin/Globulin Ratio (0.9-2) TSH (0.300-4.500) uIu/ml Free T4 (0.61-1.60) ng/dl Adenovirus (PCR) (NotDetected) B. pertussis DNA (PCR) (NotDetected) B.parapertussis DNA PCR (NotDetected) C. pneumoniae DNA (PCR) (NotDetected) Coronavirus OC43 (PCR) (NotDetected) Coronavirus HKU1 (PCR) (NotDetected) Coronavirus 229E (PCR) (NotDetected) SARS-CoV-2 (PCR) (NotDetected) Coronavirus NL63 (PCR) (NotDetected) Human Metapneumovir PCR (NotDetected) Influenza Type A (PCR) (NotDetected) Influenza Type B (PCR) (NotDetected) M. pneumoniae (PCR) (NotDetected) Parainfluenza 1 (PCR) (NotDetected) Parainfluenza 2 (PCR) (NotDetected) Parainfluenza 3 (PCR) (NotDetected) Parainfluenza 4 (PCR) (NotDetected) RSV (PCR) (NotDetected) Entero/Rhino (PCR) (NotDetected) Administered Medications Discontinued Medications Fentanyl Citrate (Fentanyl Citrate Pf 100 Mcg/2 Ml Vial) 50 mcg IV NOW STA Stop: 11/26/23 18:38 Last Admin: 11/26/23 18:51 Dose: 50 mcg Documented By: HS Imaging Data Radiologist's Impression: Lumbar Spine CT 11/26/23 18:32 Exam(s): CT L SPINE EXAM: CT Lumbar Spine Without Intravenous Contrast CLINICAL HISTORY: low back pain s/p fall. TECHNIQUE: Axial computed tomography images of the lumbar spine without intravenous contrast. CTDI is 39.74 mGy and DLP is 1173.05 mGy-cm. Automated exposure control was utilized for the study. A dose lowering technique was utilized adhering to the principles of ALARA. COMPARISON: No relevant prior studies available. FINDINGS: Vertebrae: The vertebral bodies are intact without acute osseous traumatic injury. There is straightening of the normal lumbar lordosis. No anterolisthesis or retrolisthesis is noted. There is posterior fusion with laminectomy defects throughout the lumbar spine with pedicle screws and paraspinal rods noted bilaterally. The hardware is incompletely included, but is noted from T11 through the S1 segment. Laminectomy defects noted from L1 distally. The pedicles, facet joints in transverse processes are intact. Discs/spinal canal/neural foramina: Interbody hardware noted at L5-S1 level. Multilevel degenerative changes with posterior marginal osteophytes. Evaluation of the central canal is limited without intrathecal contrast. Soft tissues: No significant acute traumatic paraspinal soft tissue abnormality. Subcutaneous edema noted in the dorsal superficial soft tissues. No well-defined hematoma or radiopaque foreign body. Vasculature: Incidental atherosclerotic calcification of the aorta without aneurysm. Pleural space: Large pleural effusions noted detailed evaluation limited. Gallbladder and bile ducts: Incidental calcified gallstones layering posteriorly in the gallbladder. Other findings: Incidental vacuum phenomenon involving both sacroiliac joints. IMPRESSION: 1. Extensive posterior fusion from the inferior thoracic through the superior sacrum. No acute osseous traumatic injury or abnormal alignment. No evidence for hardware failure. 2. Superficial subcutaneous edema noted in the dorsal soft tissues. No radiopaque foreign body, well-defined hematoma or subcutaneous emphysema. No significant paraspinal soft tissue abnormality. 3. Large pleural effusions noted detailed evaluation limited. There is a rounded cortical structure laterally involving the midpole right kidney. Detailed evaluation limited. No significant perinephric abnormality noted. Electronically signed by: Dawit Clemons MD 11/26/23 22:11 PM Discharge Plan Visit Data Chief Complaint: Back Injury/Pain Stated Complaint: BACK PAIN ED Provider: Meagan Marie Discharge Problem: Ambulatory dysfunction, ESRD on dialysis, Fall from standing, Generalized weakness Forms Stand Alone Forms: My [facility] dINK Prescriptions Prescriptions: No Action bethanechol chloride 50 mg tablet 50 mg PO BID Qty: 180 3RF (DME) Fitted Briefs X-Large Misc See Rx Instructions .Route Qty: 150 5RF Rx Instructions: using 4-5 per day R19.7 furosemide 80 mg tablet 80 mg PO BID Qty: 180 1RF pantoprazole [Protonix] 40 mg tablet,delayed release (DR/EC) 40 mg PO BID Qty: 60 5RF triamcinolone acetonide 0.5 % cream 1 applic topical BID PRN (Reason: skin irritation) Qty: 60 1RF atorvastatin [Lipitor] 10 mg tablet 10 mg PO HS Qty: 90 1RF levothyroxine 150 mcg capsule 150 mcg PO QAM Qty: 90 2RF ropinirole 0.5 mg tablet 0.5 mg PO UD Qty: 90 1RF Rx Instructions: Take 0.5mg by mouth in the morning; then take 1.5mg by mouth at bedtime methocarbamol 500 mg tablet 500 mg PO TID PRN (Reason: muscle spasm) Qty: 90 1RF tramadol 50 mg tablet 50 mg PO BID PRN (Reason: Pain) Qty: 60 0RF sertraline 50 mg tablet 50 mg PO DAILY Qty: 30 2RF famotidine 40 mg tablet 40 mg PO BID Qty: 60 2RF calcium acetate 667 mg tablet 667 mg PO TID fluticasone propionate [Flonase Allergy Relief] 50 mcg/actuation spray,suspension 1 spray intranasal DAILY Qty: 16 2RF Rx Instructions: administer into each nostril Metamucil (sugar) Powder See Rx Instructions PO DAILY PRN (Reason: diarrhea) Qty: 1254 0RF Rx Instructions: 7.2 grams orally daily PRN; cholecalciferol (vitamin D3) [Vitamin D3] 1,000 unit Capsule 2,000 unit PO QAM loperamide 2 mg Capsule 2 mg PO UD PRN (Reason: Diarrhea) Rx Instructions: administer after each loose stool until symptoms controlled; do not exceed 8 mg per 24 hrs estradiol 0.01 % (0.1 mg/gram) cream 1 applic VAGINAL 3XWK PRN (Reason: ONLY WHEN BURNING) nystatin 100,000 unit/gram powder 1 applic TOPICAL BID PRN (Reason: IRRITATION) cyanocobalamin (vitamin B-12) [Vitamin B-12] 1,000 mcg tablet 1,000 mcg PO QAM Cavilon Durable Barrier 1.3 % cream 1 applic topical DAILY PRN (Reason: skin irritation) Rx Instructions: as needed for skin protection mv,Ca,min-folic acid-vit K1 400-20 mcg Tablet 1 tab PO DAILY calcium carbonate-vitamin D3 [Calcium 600 + D(3)] 600 mg-10 mcg (400 unit) Tablet 1 tab PO DAILY omega-3 fatty acids 1,000 mg Capsule 1,000 mg PO DAILY Referrals Referrals: Agatha Alfaro DO [Primary Care Provider] -
[2023-11-26] MEDS: fentaNYL citrate PF 100 MCG/2 ML VIAL IV STA (18:51)
[2023-11-26 19:17] LABS: Basophils # (auto) 0.04 K/uL (0.00-0.20); Basophils % (auto) 0.7 %; Eosinophils # (auto) 0.07 K/uL (0.00-0.50); Eosinophils % (auto) 1.2 %; Hemoglobin 9.6 g/dl (12.0-16.0); Immature Granulocytes # (auto) 0.01 K/uL (0.01-0.20); Immature Granulocytes % (auto) 0.2 %; Lymphocytes # (auto) 0.44 K/uL (1.20-3.40); Lymphocytes % (auto) 7.3 %; Mean Corpuscular Hemoglobin 28.2 pg (25.0-34.0); Mean Corpuscular Volume 90.9 fL (80.0-100.0); Mean Platelet Volume 11.4 fL (9.4-12.4); Monocytes # (auto) 0.53 K/uL (0.11-0.59); Monocytes % (auto) 8.8 %; Neutrophils # (auto) 4.94 K/uL (1.40-6.50); Neutrophils % (auto) 81.8 %; Platelet Count 188 K/uL (130-400); RDW Coefficient of Variation 16.9 % (11.5-14.5); RDW Standard Deviation 55.8 fL (36.4-46.3); Red Blood Count 3.41 M/uL (4.20-5.40); White Blood Count 6.03 K/ul (4.8-10.8)
[2023-11-26 19:44] LABS: Albumin Level 3.1 gm/dl (3.4-5.0); Bilirubin,Total 0.4 mg/dl (0.2-1.0); Calcium 8.2 mg/dl (8.6-10.3); Magnesium 2.3 mg/dl (1.7-2.4); Potassium 4.6 mmol/L (3.5-5.1)
[2023-11-26 19:56] LABS: BUN Creatinine Ratio 13.5 (10-20); Creatinine Clr Calc Pharmacy 6.1 ml/min; Est GFR (Non-African American) 6.9 ml/min; Total Protein 6.1 gm/dl (6.0-8.3); Troponin I High Sensitivity 103.7 pg/ml (0-14)
[2023-11-26 20:26] LABS: T4 Free Thyroxine 0.88 ng/dl (0.61-1.60); Thyroid Stimulating Hormone 4.928 uIu/ml (0.300-4.500)
[2023-11-26 22:11] LABS: INR 1.1 (0.9-1.1); Prothrombin Time 11.4 Seconds (9.0-12.0)
--- NOTE | 2023-11-26 22:13 | CT Scan Report ---
Exam(s): CT L SPINE EXAM: CT Lumbar Spine Without Intravenous Contrast CLINICAL HISTORY: low back pain s/p fall. TECHNIQUE: Axial computed tomography images of the lumbar spine without intravenous contrast. CTDI is 39.74 mGy and DLP is 1173.05 mGy-cm. Automated exposure control was utilized for the study. A dose lowering technique was utilized adhering to the principles of ALARA. COMPARISON: No relevant prior studies available. FINDINGS: Vertebrae: The vertebral bodies are intact without acute osseous traumatic injury. There is straightening of the normal lumbar lordosis. No anterolisthesis or retrolisthesis is noted. There is posterior fusion with laminectomy defects throughout the lumbar spine with pedicle screws and paraspinal rods noted bilaterally. The hardware is incompletely included, but is noted from T11 through the S1 segment. Laminectomy defects noted from L1 distally. The pedicles, facet joints in transverse processes are intact. Discs/spinal canal/neural foramina: Interbody hardware noted at L5-S1 level. Multilevel degenerative changes with posterior marginal osteophytes. Evaluation of the central canal is limited without intrathecal contrast. Soft tissues: No significant acute traumatic paraspinal soft tissue abnormality. Subcutaneous edema noted in the dorsal superficial soft tissues. No well-defined hematoma or radiopaque foreign body. Vasculature: Incidental atherosclerotic calcification of the aorta without aneurysm. Pleural space: Large pleural effusions noted detailed evaluation limited. Gallbladder and bile ducts: Incidental calcified gallstones layering posteriorly in the gallbladder. Other findings: Incidental vacuum phenomenon involving both sacroiliac joints. IMPRESSION: 1. Extensive posterior fusion from the inferior thoracic through the superior sacrum. No acute osseous traumatic injury or abnormal alignment. No evidence for hardware failure. 2. Superficial subcutaneous edema noted in the dorsal soft tissues. No radiopaque foreign body, well-defined hematoma or subcutaneous emphysema. No significant paraspinal soft tissue abnormality. 3. Large pleural effusions noted detailed evaluation limited. There is a rounded cortical structure laterally involving the midpole right kidney. Detailed evaluation limited. No significant perinephric abnormality noted. Electronically signed by: Dawit Clemons MD 11/26/23 22:11 PM
[2023-11-26 22:51] LABS: Adenovirus PCR Not Detected (NotDetected); Bordetella parapertussis PCR Not Detected (NotDetected); Bordetella pertussis PCR Not Detected (NotDetected); Chlamydia pneumoniae PCR Not Detected (NotDetected); Coronavirus 229E PCR Not Detected (NotDetected); Coronavirus CoV-2 (COVID19)PCR Not Detected (NotDetected); Coronavirus HKU1 PCR Not Detected (NotDetected); Coronavirus NL63 PCR Not Detected (NotDetected); Coronavirus OC43PCR Not Detected (NotDetected); Human Metapneumovirus PCR Not Detected (NotDetected); Influenza A PCR Not Detected (NotDetected); Influenza B PCR Not Detected (NotDetected); Mycoplasma pneumoniae PCR Not Detected (NotDetected); Parainfluenza Virus 1 PCR Not Detected (NotDetected); Parainfluenza Virus 2 PCR Not Detected (NotDetected); Parainfluenza Virus 3 PCR Not Detected (NotDetected); Parainfluenza Virus 4 PCR Not Detected (NotDetected); Respiratory Syncytial VirusPCR Not Detected (NotDetected); Rhinovirus/Enterovirus PCR Not Detected (NotDetected)
--- NOTE | 2023-11-26 23:29 | History & Physical Report ---
Date of Service November 26, 2023 Assessment & Plan (1) Fall from standing: Plan: - Final read for XR knee/hip pending -> per my review no obvious fracture - CT lumbar spine without acute injury - Elevated CK= 540 - PT/OT - some concern per daughter that she may need placement - continue home tramadol 50mg BID prn (2) ESRD on dialysis: Plan: - Last dialysis session on Sunday, was not missed any sessions - chronic pleural effusions without any respiratory distress, no hyperkalemia - consult nephrology, due for next HD session 11/26 (3) Ambulatory dysfunction: Plan: Plan as per above (4) Pleural effusion: Plan: - chronic pleural effusions again noted on imaging -> no acute respiratory distress or increased oxygen requirement - Is in the process of getting established with pulmonology as n outpatient for potential thoracentesis (5) Anemia: Plan: - normocytic-> in the setting of ESRD - Hgb= 9.6, baseline of about 9 (6) Elevated troponin: Plan: - Trop 103-> 107 - No ischemic changes on EKG, denies chest pain/dyspnea - Chronically elevated 80/90s, low suspicion for ACS - trend to peak (7) Sacral wound: Plan: - chronic sacral wound without signs of acute infection - consult wound care Plan Diet: Renal Code: DNR/DNI Dispo: Tele VTE prophylaxis: subQ heparin History of Present Illness Primary Care Provider: Agatha Alfaro DO 83 year old female with a past medical history of ESRD on HD- Sat/Tu/Th, anemia, aortic stenosis, pressure sore sacrum, chronic pleural effusions, DM2, cirrhosis, HFpEF presenting after fell. Fell yesterday and was on the ground for about 3 hours. Continued left knee pain today. Daughter has concerns for ambulatory dysfunction and her ability to take care of herself. She lives alone, uses a walker for ambulation at baseline. At present notes some left knee pain. Denies chest pain, dyspnea, lightheadedness/dizziness. ED Course Significant for: Hbg= 9.6, Troponin 103-> 107, CK= 540. CXR with left sided pleural effusion per my read, Knee/Hip pending, CT lumbar spine without acute denis injury, pleural effusions noted. Allergies Allergy/AdvReac Type Severity Reaction Status Date / Time sulfamethoxazole AdvReac Unknown REMOTE Verified 11/27/23 08:06 [From Bactrim] HX/PT NOT SURE REACTION trimethoprim [From Bactrim] AdvReac Unknown REMOTE Verified 11/27/23 08:06 HX/PT NOT SURE REACTION Home Medications Medication Instructions Recorded Confirmed Type cholecalciferol (vitamin D3) 25 2,000 unit PO QAM 05/29/18 11/27/23 History mcg (1,000 unit) capsule (Vitamin D3) cyanocobalamin (vitamin B-12) 1,000 mcg PO QAM 11/12/20 11/27/23 History 1,000 mcg tablet (Vitamin B-12) bethanechol chloride 50 mg tablet 50 mg PO BID #180 tabs 04/19/21 11/27/23 Rx diaper,brief,adult,disposable #150 ea 12/07/21 11/21/23 Rx (Fitted Briefs X-Large) loperamide 2 mg capsule 2 mg PO UD PRN Diarrhea 05/29/22 11/27/23 History estradiol 0.01% (0.1 mg/gram) 1 applic vaginal 3XWK PRN ONLY 05/30/22 11/27/23 History vaginal cream WHEN BURNING nystatin 100,000 unit/gram topical 1 applic topical BID PRN IRRITATION 07/10/22 11/27/23 History powder furosemide 80 mg tablet 80 mg PO BID #180 tabs 05/28/23 11/27/23 Rx pantoprazole 40 mg tablet,delayed 40 mg PO BID #60 tabs 06/27/23 11/27/23 Rx release (Protonix) triamcinolone acetonide 0.5 % 1 applic topical BID PRN skin 07/03/23 11/27/23 Rx topical cream irritation #60 grams calcium acetate 667 mg tablet See Rx Instructions .Route .COMPLEX 07/06/23 0 11/27/23 History calcium carbonate 600 mg-vitamin 1 tab PO DAILY 07/23/23 11/27/23 History D3 10 mcg (400 unit) tablet (Calcium 600 + D(3)) omega-3 fatty acids 1,000 mg 1,000 mg PO DAILY 07/23/23 11/27/23 History capsule fluticasone propionate 50 1 spray intranasal DAILY #16 grams 08/16/23 11/27/23 Rx mcg/actuation nasal spray,suspension (Flonase Allergy Relief) atorvastatin 10 mg tablet (Lipitor) 10 mg PO HS #90 tabs 08/20/23 11/27/23 Rx dimethicone 1.3 % topical cream 1 applic topical DAILY PRN skin 08/25/23 11/27/23 History (Cavilon Durable Barrier) irritation methocarbamol 500 mg tablet 500 mg PO TID PRN muscle spasm #90 09/20/23 11/27/23 Rx tabs ropinirole 0.5 mg tablet 0.5 mg PO UD #90 tabs 09/20/23 11/27/23 Rx tramadol 50 mg tablet 50 mg PO BID PRN Pain #60 tabs 10/29/23 11/27/23 Rx cxubgezdjadz-imrzuzre-gsuhlfm-folic 1 tab PO DAILY 10/30/23 11/27/23 History acid 400 mcg-vit K1 20 mcg tablet sertraline 50 mg tablet 50 mg PO DAILY #30 tabs 11/12/23 11/27/23 Rx famotidine 40 mg tablet 40 mg PO BID #60 tabs 11/19/23 11/27/23 Rx psyllium seed (sugar) oral powder See Rx Instructions PO DAILY PRN 11/19/23 11/27/23 Rx (Metamucil (sugar) oral powder) diarrhea #1,254 grams levothyroxine 150 mcg tablet 150 mcg PO QAM 11/27/23 11/27/23 History sevelamer carbonate 800 mg tablet See Rx Instructions .Route .COMPLEX 11/27/23 11/27/23 History Past Med/Surg History Problem List (Updated 11/27/23 @ 01:56 by Reyna Quijano, ) Sacral wound Generalized weakness (Acute) Fall from standing (Acute) ESRD on dialysis (Acute) Ambulatory dysfunction (Acute) Discharge planning issues DVT prophylaxis Pleural effusion CKD (chronic kidney disease) (Acute) Anemia (Acute) Shakiness (Acute) Bilateral edema of lower extremity (Acute) Physical deconditioning ESRD on dialysis (Acute) Ascites Aortic stenosis 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 Palliative care by specialist Pancytopenia Clostridioides difficile carrier Vitamin D deficiency (Chronic) Recurrent urinary tract infection 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 aguirre Osteoarthritis Hyperlipidemia History of CVA (cerebrovascular accident) (2019) ~5years ago, woke up with weakness in her rt hand; L lacunar infarct; previously on plavix>no residual effects Hiatal hernia GERD without esophagitis Fatty liver Essential tremor MINOR IN HAND Diabetic retinopathy Chronic hyponatremia Chronic diastolic heart failure CAD (coronary artery disease) Anxiety Anemia of chronic disease GAVE (gastric antral vascular ectasia) (Acute) Medical History Right wrist pain Generalized weakness Fatigue CKD (chronic kidney disease) CKD (chronic kidney disease) Sepsis Encephalopathy UTI (urinary tract infection) Lower extremity cellulitis Pleural effusion, bilateral Elevated brain natriuretic peptide (BNP) level Elevated troponin I level Pericardial effusion Elevated brain natriuretic peptide (BNP) level Non-ST elevation MN (NSTEMI) Pancytopenia Hemorrhoids History of recent hospitalization GI BLEED/LOW BLOOD COUNT/HX BLOOD TRANSFUSION - MAY 2022 - [facility] ESRD on hemodialysis tuesdays, , and saturdays currently Poor historian History of GI bleed hx 08/2021, given transfusion-per medical record REASON FOR UPCOMING PROCEDURE Hx of atrial fibrillation, no current medication per medical report History of renal dialysis , AND SAT ([facility]/ACROSS FROM [facility]) ACCESS SITE RIGHT SIDE OF CHEST/ ? DETAILS Resistant hypertension Diabetes mellitus, type 2 Hearing deficit no hearing aids Urinary urgency Secondary hyperparathyroidism of renal origin First degree AV block Hypertension Hypothyroidism Surgical History History of esophagogastroduodenoscopy (EGD) multiple---last 08/01/2022 @ [facility] 04/06/22 at [facility] with Dr. Mich Pacheco- EGD- Gastric antral vascular ectasia with bleeding, treated with argon plasma coagulation (APC); Few angioectasias in the duodenum, treated with APC S/P pericardiocentesis 08/2021, [facility], w/dr moura Hx of cardiac catheterization 08/2021, [facility] w/Dr. Moura for increased cardiac pressures; no stents History of tooth extraction History of colonoscopy H/O varicose vein ligation S/P trigger finger release S/P knee replacement RT/LEFT History of bladder suspension procedure X 2 S/P carpal tunnel release RT/LEFT History of back surgery (04/2010) X 2 S/P hysterectomy [place] Family History Father Alcohol abuse Heart disease Myocardial infarction Hypertension Sister Pancreatic cancer Diabetes Breast cancer Brother Diabetes Alcohol abuse Stroke Other Cancer No family history of adverse response to anesthesia Denies family history of Ovarian cancer Prostate cancer Colorectal cancer Social History Smoking Status: Never smoker Second Hand Exposure: No; Do You Dip or Chew Tobacco: No; Hx Alcohol Use: No Hx Substance Use: No Preferred Language: Nauruan Communication Ability: Effective Visual Impairment: No Limitations Hearing Ability: Normal Support Services Tech Required: No Beliefs That Will Affect Care: None marital status: Single Current Living Situation: Alone Current Living Situation Comment: 1 story home with ramp to enter home current occupational status: retired How many Children do You have: 2 Feels Safe at Home: Yes Childhood Exposure to Second-Hand Smoke: No Diet: regular Diet Comment: regular caffeine: Yes (Coffee x 2 cups per day.) during the past year weight has: remained stable Dental Care, Regularly: No Physical Activity Frequency: Does not Exercise Seatbelt Use: always Sunscreen Use: Yes Assistive Devices: Walker Review of Systems Review of Systems: As per above Physical Exam Physical Exam: Constitutional: well-appearing, no acute distress HEENT: NCAT, no conjunctival injection CV: regular rhythm, no murmur appreciated, extremities well-perfused, no LE edema Resp: CTABL, no wheezes/rales/rhonchi appreciated, no increased work of breathing GI: soft, nondistended, nontender, BS normoactive MSK: no gross deformities appreciated- some swelling left knee Skin: warm, dry, no rash appreciated Neuro: alert, oriented, no focal neurologic deficit appreciated Results & Data Results & Data Vital Signs (Past 12 Hours) Vital Signs Temp Pulse Pulse Resp BP BP Pulse Ox 11/26/23 20:20 74 20 98 11/26/23 20:20 71 18 98 11/26/23 17:58 71 11/26/23 17:46 72 20 133/62 100 11/26/23 17:34 36.7 C 75 20 133/62 100 O2 Del Method 11/26/23 20:20 Room Air 11/26/23 20:20 Room Air 11/26/23 17:58 11/26/23 17:46 Room Air 11/26/23 17:34 Room Air Supervising Physician Co-Signing Physician Notes Attending addendum: I have physically seen this patient, have supervised the medical residents activities, and agree with the H&P unless as otherwise noted. Assessment and Plan: Ground-level fall from standing/ambulatory dysfunction- X-ray of hip and knee negative CT lumbar spine negative CK mildly elevated at 540 Consult PT/OT Family considering NHP Acetaminophen 600 mg by mouth every 6 hours as needed for mild pain or fever Tramadol 50 mg p.o. twice daily as needed moderate pain ESRD on dialysis- Chronic pleural effusions consult nephrology Next HD session 11/26, patient has not missed any dialysis sessions Elevated troponin- Troponin initially 103, follow-up 107 Likely supply/demand mismatch in setting of ESRD Follow serially Chronic sacral wound- Does not look acutely infected Consult wound care Resident Activity Tracking Resident Involvement: Resident Care Provided Care Provided: Adult Hospital Medicine
[2023-11-27] MEDS ORDERED: traMADol HCL 50 MG TABLET PO PRN (00:25)
[2023-11-27] MEDS: rOPINIRole HCL 1 MG TABLET PO SCH (01:08)
[2023-11-27] MEDS: LEVOTHYROXINE SODIUM 150 MCG TABLET PO SCH (06:38)
--- NOTE | 2023-11-27 06:49 | XRay Report ---
XR knee LT 3V HISTORY: 83 years-old Female L knee pain s/p fall acute left knee pain status post fall COMPARISON: None TECHNIQUE: 3 views of the left knee FINDINGS: Total joint arthroplasty. Medial plate and screw fusion of the distal femur. Arterial calcifications. Moderate circumferential soft tissue swelling with associated joint effusion. No acute fracture, dis location or osseous erosion. IMPRESSION: 1. Soft tissue swelling and joint effusion without acute fracture or dislocation. 2. Unremarkable appearance of the total joint arthroplasty and distal femoral ORIF hardware. ACT 112: Negative or not required by law. The above report was generated using voice recognition software. It may contain grammatical, syntax o r spelling errors. Electronically signed by: Oskar Jalloh M.D. 11/27/2023 6:47 AM
--- NOTE | 2023-11-27 06:52 | XRay Report ---
XR chest 1V portable HISTORY: 83 years-old Female weakness COMPARISON: 10/31/2023 TECHNIQUE: AP view of the chest FINDINGS: Cardiac silhouette is enlarged. Patient is mildly rotated toward the left. Right IJ dual-lumen hemodi alysis catheter is in unchanged positioning. No pneumothorax. Interstitial pulmonary edema redemonstr ated along with layering pleural effusions and bibasilar consolidation, left greater than right. No s ignificant change. Lumbar spinal fusion hardware. Bones appear grossly intact. IMPRESSION: 1. Cardiomegaly with unchanged pulmonary edema. 2. Stable pleural effusions with bibasilar consolidation. ACT 112: Negative or not required by law. The above report was generated using voice recognition software. It may contain grammatical, syntax o r spelling errors. Electronically signed by: Oskar Jalloh M.D. 11/27/2023 6:50 AM
[2023-11-27 07:18] LABS: Hematocrit (blood only) 30.6 % (37.0-47.0); Hemoglobin 9.6 g/dl (12.0-16.0); Mean Corpuscular Hemoglobin 28.2 pg (25.0-34.0); Mean Corpuscular Hgb Conc 31.4 g/dL (32.0-36.0); Mean Corpuscular Volume 89.7 fL (80.0-100.0); Platelet Count 175 K/uL (130-400); RDW Coefficient of Variation 16.8 % (11.5-14.5); RDW Standard Deviation 54.8 fL (36.4-46.3); Red Blood Count 3.41 M/uL (4.20-5.40); White Blood Count 5.68 K/ul (4.8-10.8)
[2023-11-27 07:38] LABS: Albumin Level 3.2 gm/dl (3.4-5.0); BUN Creatinine Ratio 13.6 (10-20); Bilirubin,Total 0.6 mg/dl (0.2-1.0); Calcium 8.1 mg/dl (8.6-10.3); Est GFR (African American) 7.8 ml/min; Est GFR (Non-African American) 6.7 ml/min; Globulin 3.1 gm/dl (2.5-4.0); Potassium 4.3 mmol/L (3.5-5.1); Total Protein 6.3 gm/dl (6.0-8.3)
--- NOTE | 2023-11-27 08:00 | XRay Report ---
SINGLE VIEW PELVIS; 2 VIEWS LEFT HIP CLINICAL HISTORY: Fall. Left hip pain. FINDINGS: An AP view of the pelvis with AP and frog-leg views of the left hip are correlated with pel tal CT dated 07/12/2022. The skeletal structures are osteopenic. There is no radiographic evidence of acute fracture involving the hips or bony pelvis. Mild arthritic change and joint space narrowing is seen in the hips, right greater than left. There is degenerative sclerosis of the sacroiliac joints. Extensive postsurgical change is seen in the lumbosacral spine. The overlying soft tissues are normal as visualized. Phleboliths are seen in the pelvis. IMPRESSION: No acute bony abnormality is identified. Electronically signed by: Eulogio Gaspar M.D. 11/27/2023 7:59 AM
--- NOTE | 2023-11-27 08:03 | XRay Report ---
LEFT SHOULDER 3 VIEWS CLINICAL HISTORY: Fall. Left shoulder pain. FINDINGS: 3 views of the left shoulder are obtained. Correlation is made with chest x-ray dated 2023. The examination is degraded by suboptimal patient positioning. The skeletal structures are oste openic. There is no clear radiographic evidence of acute fracture or dislocation. Severe osteoarthrit ic change is seen at the glenohumeral articulation. Productive degenerative change is noted at the ac romioclavicular joint. Fusion hardware is seen in the thoracolumbar spine. There is a layering left p leural effusion with left basilar consolidation. A right-sided central venous catheter is partially v isualized. IMPRESSION: 1. No acute fracture or dislocation is identified. 2. Severe arthritic change at the glenohumeral joint. 3. Layering left pleural effusion with left basilar consolidation. Electronically signed by: Eulogio Gaspar M.D. 11/27/2023 8:01 AM
[2023-11-27] MEDS: BETHANECHOL CHL 25 MG TAB PO SCH (09:35)
[2023-11-27] MEDS: CYANOCOBALAMIN (B-12) 500 MCG TABLET PO SCH (09:36)
[2023-11-27] MEDS: FAMOTIDINE 40 MG TABLET PO SCH (09:38)
[2023-11-27] MEDS: FUROSEMIDE 80 MG TAB PO SCH (09:39)
[2023-11-27] MEDS: PANTOprazole 40 MG TAB PO SCH (09:40)
[2023-11-27] MEDS: rOPINIRole HCL 0.25 MG TABLET PO SCH (09:40)
[2023-11-27] MEDS: SERTRALINE HCL 50 MG TABLET PO SCH (09:41)
[2023-11-27] MEDS: CALCIUM ACETATE 667 MG CAP/TAB PO SCH (09:42)
--- NOTE | 2023-11-27 10:41 | Nephrology Consultation ---
Date of Consultation November 27, 2023 Assessment & Plan (1) ESRD on dialysis: (2) Fall from standing: (3) Generalized weakness: (4) Anemia: (5) Ambulatory dysfunction: Plan ESRD, on hemodialysis via Right IJ tunneled dialysis catheter on TTS at [facility] [place]. Has history of GI bleeding with GAVE, presented withfall at home, generalized weakness. Blood pressure, volume status and electrolyte acceptable. Hb stable. -- plan for HD today as a regular schedule, Epogen 10,000 units during dialysis.. --Continue on low-potassium, low phosphorus diet, continue on PhosLo with meals -- start on renal caps daily --Dose medications for eGFR less than 10. Will follow Thank you for allowing me to participate in your patient's care. It was a pleasure to see Sully. History of Present Illness Reason for Consultation: ESKD on HD, admitted after a fall at home. Attending Physician: Chris West MD History of Present Illness Mrs. Sully Faria is a 83 year-old female with ESRD on HD, chronic GI bleeding with h/o GAVE, admitted to the hospital after a fall at home and found lying on floor for 3 hours. Nephrology consult was requested to provide hemodialysis. EMR records were reviewed in detail in patient's visit. Kal brought to ER yesterday after her daughter found her lying in floor after a fall. She had a fall and was not able to get up and was on the ground for about 3 hours before her daughter came and found her. Reports that her knee was bent in an awkward angle and she was unable to get up on her own. She normally ambulates with a walker. She was able to walk after her initial fall yesterday, but has declined throughout the day today and has had significant pain with ambulation. She denies any lightheadedness, dizziness or chest pain prior to her fall. Workup in ER including CT head was unremarkable. Chest x- ray with chronic mild bilateral pleural effusion and pulmonary congestion. Hemoglobin was 9.6 which is her baseline. Electrolyte was acceptable. Blood pressure was fair. ESRD secondary to hypertension, DKD, and renovascular disease started on hemodialysis during hospitalization at [facility] in August 2021, on TTS HD at [facility] via TDC, refused AVF. IDWG typically low and she continues to make a good amount of urine. Medical history is also notable for non-obstructive coronary artery disease, HFpEF, severe aortic stenosis, atrial fibrillation, chronic anemia with GIB, imaging evidence of cirrhosis, NAFLD, hypertension, diabetes mellitus type II, neurogenic bladder, OA/DJD, and hypothyroidism. She reports overall feeling better this morning, denies shortness of breath or chest pain. Blood pressure acceptable. Hemoglobin low but stable at her baseline. Electrolyte acceptable. Allergies Allergy/AdvReac Type Severity Reaction Status Date / Time sulfamethoxazole AdvReac Unknown REMOTE Verified 11/27/23 08:06 [From Bactrim] HX/PT NOT SURE REACTION trimethoprim [From Bactrim] AdvReac Unknown REMOTE Verified 11/27/23 08:06 HX/PT NOT SURE REACTION Home Medications Medication Instructions Recorded Confirmed Type cholecalciferol (vitamin D3) 25 2,000 unit PO QAM 05/29/18 11/27/23 History mcg (1,000 unit) capsule (Vitamin D3) cyanocobalamin (vitamin B-12) 1,000 mcg PO QAM 11/12/20 11/27/23 History 1,000 mcg tablet (Vitamin B-12) bethanechol chloride 50 mg tablet 50 mg PO BID #180 tabs 04/19/21 11/27/23 Rx diaper,brief,adult,disposable #150 ea 12/07/21 11/21/23 Rx (Fitted Briefs X-Large) loperamide 2 mg capsule 2 mg PO UD PRN Diarrhea 05/29/22 11/27/23 History estradiol 0.01% (0.1 mg/gram) 1 applic vaginal 3XWK PRN ONLY 05/30/22 11/27/23 History vaginal cream WHEN BURNING nystatin 100,000 unit/gram topical 1 applic topical BID PRN IRRITATION 07/10/22 11/27/23 History powder furosemide 80 mg tablet 80 mg PO BID #180 tabs 05/28/23 11/27/23 Rx pantoprazole 40 mg tablet,delayed 40 mg PO BID #60 tabs 06/27/23 11/27/23 Rx release (Protonix) triamcinolone acetonide 0.5 % 1 applic topical BID PRN skin 07/03/23 11/27/23 Rx topical cream irritation #60 grams calcium acetate 667 mg tablet See Rx Instructions .Route .COMPLEX 07/06/23 11/27/23 History calcium carbonate 600 mg-vitamin 1 tab PO DAILY 07/23/23 11/27/23 History D3 10 mcg (400 unit) tablet (Calcium 600 + D(3)) omega-3 fatty acids 1,000 mg 1,000 mg PO DAILY 07/23/23 11/27/23 History capsule fluticasone propionate 50 1 spray intranasal DAILY #16 grams 08/16/23 11/27/23 Rx mcg/actuation nasal spray,suspension (Flonase Allergy Relief) atorvastatin 10 mg tablet (Lipitor) 10 mg PO HS #90 tabs 08/20/23 11/27/23 Rx dimethicone 1.3 % topical cream 1 applic topical DAILY PRN skin 08/25/23 11/27/23 History (Cavilon Durable Barrier) irritation methocarbamol 500 mg tablet 500 mg PO TID PRN muscle spasm #90 09/20/23 11/27/23 Rx tabs ropinirole 0.5 mg tablet 0.5 mg PO UD #90 tabs 09/20/23 11/27/23 Rx tramadol 50 mg tablet 50 mg PO BID PRN Pain #60 tabs 10/29/23 11/27/23 Rx bztdfrnwaivu-ycrbzpnl-mxzbgms-folic 1 tab PO DAILY 10/30/23 11/27/23 History acid 400 mcg-vit K1 20 mcg tablet sertraline 50 mg tablet 50 mg PO DAILY #30 tabs 11/12/23 11/27/23 Rx famotidine 40 mg tablet 40 mg PO BID #60 tabs 11/19/23 11/27/23 Rx psyllium seed (sugar) oral powder See Rx Instructions PO DAILY PRN 11/19/23 11/27/23 Rx (Metamucil (sugar) oral powder) diarrhea #1,254 grams levothyroxine 150 mcg tablet 150 mcg PO QAM 11/27/23 11/27/23 History sevelamer carbonate 800 mg tablet See Rx Instructions .Route .COMPLEX 11/27/23 11/27/23 History Patient History Medical History Right wrist pain Generalized weakness Fatigue CKD (chronic kidney disease) CKD (chronic kidney disease) Sepsis Encephalopathy UTI (urinary tract infection) Lower extremity cellulitis Pleural effusion, bilateral Elevated brain natriuretic peptide (BNP) level Elevated troponin I level Pericardial effusion Elevated brain natriuretic peptide (BNP) level Non-ST elevation [place] (NSTEMI) Pancytopenia Hemorrhoids History of recent hospitalization GI BLEED/LOW BLOOD COUNT/HX BLOOD TRANSFUSION - MAY 2022 - [facility] ESRD on hemodialysis tuesdays, , and saturdays currently Poor historian History of GI bleed hx 08/2021, given transfusion-per medical record REASON FOR UPCOMING PROCEDURE Hx of atrial fibrillation, no current medication per medical report History of renal dialysis , AND SAT ([facility] [place]/ACROSS FROM [facility]) ACCESS SITE RIGHT SIDE OF CHEST/ ? DETAILS Resistant hypertension Diabetes mellitus, type 2 Hearing deficit no hearing aids Urinary urgency Secondary hyperparathyroidism of renal origin First degree AV block Hypertension Hypothyroidism Surgical History History of esophagogastroduodenoscopy (EGD) multiple---last 08/01/2022 @ [facility] 04/06/22 at [facility] with Dr. Mich Pacheco- EGD- Gastric antral vascular ectasia with bleeding, treated with argon plasma coagulation (APC); Few angioectasias in the duodenum, treated with APC S/P pericardiocentesis 08/2021, [facility], w/dr moura Hx of cardiac catheterization 08/2021, [facility] w/Dr. Moura for increased cardiac pressures; no stents History of tooth extraction History of colonoscopy H/O varicose vein ligation S/P trigger finger release S/P knee replacement RT/LEFT History of bladder suspension procedure X 2 S/P carpal tunnel release RT/LEFT History of back surgery (04/2010) X 2 S/P hysterectomy [place] Family History Father Alcohol abuse Heart disease Myocardial infarction Hypertension Sister Pancreatic cancer Diabetes Breast cancer Brother Diabetes Alcohol abuse Stroke Other Cancer No family history of adverse response to anesthesia Denies family history of Ovarian cancer Prostate cancer Colorectal cancer Social History Smoking Status: Never smoker Second Hand Exposure: No; Do You Dip or Chew Tobacco: No; Hx Alcohol Use: No Hx Substance Use: No Preferred Language: Citizen Of [place] Communication Ability: Effective Visual Impairment: No Limitations Hearing Ability: Normal Grassroots Organizer Required: No Beliefs That Will Affect Care: None marital status: Single Current Living Situation: Alone Current Living Situation Comment: 1 story home with ramp to enter home current occupational status: retired How many Children do You have: 2 Feels Safe at Home: Yes Childhood Exposure to Second-Hand Smoke: No Diet: regular Diet Comment: regular caffeine: Yes (Coffee x 2 cups per day.) during the past year weight has: remained stable Dental Care, Regularly: No Physical Activity Frequency: Does not Exercise Seatbelt Use: always Sunscreen Use: Yes Assistive Devices: Walker Review of Systems Review of Systems: Detailed review of system was done and pertinent positives and negatives are mentioned above. Physical Exam Constitutional: WD/WN, vitals as above + frail appearing; no acute distress Eyes: + anicteric sclerae Respiratory: no respiratory distress Auscultation: + diminished lung sounds Cardiovascular: Rate/Rhythm: regular rate and regular rhythm Heart Sounds: normal S1 and normal S2 Extremities: + vascular access device (Rt IJ TDC); no edema Gastrointestinal (Abdomen): Inspection/Auscultation: abdomen normal to inspection Percussion/Palpation: abdomen soft; abdomen nontender Musculoskeletal: Extremities: extremities normal to inspection Skin: no rashes, warm and dry Neurologic: no focal motor deficits Psychiatric: Orientation: alert and oriented x 3 Affect: euthymic affect Results & Data Vital Signs (Past 12 Hours) Vital Signs Temp Pulse Pulse Resp BP Pulse Ox Pulse Ox 11/27/23 08:00 36.8 C 74 18 136/63 94 11/27/23 07:09 77 11/27/23 06:23 73 18 140/65 97 11/27/23 03:03 69 16 116/64 99 11/27/23 01:24 70 11/27/23 00:20 65 11/27/23 00:20 96 11/26/23 23:56 74 18 111/47 L 95 O2 Del Method O2 Del Method 11/27/23 08:00 Room Air 11/27/23 07:09 11/27/23 06:23 Room Air 11/27/23 03:03 Room Air 11/27/23 01:24 11/27/23 00:20 11/27/23 00:20 Room Air 11/26/23 23:56 Room Air PG Care Time/CCT Total # of Minutes Spent Total Time Spent with Patient: Total time spent is greater than 50% in coordination of care (as documented) at patient's floor/unit and/or counseling patient: Coding Level of Care Code 89942 INT INP/OBS CARE MIN Diagnoses ESRD on dialysis N18.6; Z99.2 Fall from standing W19.XXXA Generalized weakness R53.1 Anemia D64.9 Ambulatory dysfunction R26.2
[2023-11-27] MEDS: HEPARIN SOD 5,000 UNIT/0.5 ML VIAL SQ SCH (10:53)
[2023-11-27] MEDS: EPOETIN ALFA 10,000 UNITS/ML VIAL IV STA (14:48)
--- NOTE | 2023-11-27 18:19 | Hospitalist Progress Note ---
Date of Service November 27, 2023 Assessment & Plan (1) Fall from standing: Plan: Presented after an unwitnessed fall at home where she was on the ground for about 3 hours. Daughter has concerns for ambulatory dysfunction and her ability to take care of herself. Patient does live alone, uses a walker for ambulation at baseline. - Left knee x-ray showed soft tissue swelling without fracture or dislocation. CXR showed stable pleural effusions. Hip/pelvis x-ray, shoulder x-ray, chest x- ray all unremarkable. - CT lumbar spine without acute injury - Elevated CK= 540 - PT/OT - continue home tramadol 50mg BID prn Elevated troponin, most likely secondary to demand ischemia - Trop peaked at 107, and then down trended - No ischemic changes on EKG, denies chest pain/dyspnea - Chronically elevated 80/90s, low suspicion for ACS (2) ESRD on dialysis: Plan: Follows Sunday//Sunday dialysis schedule - has not missed any sessions prior to admission - chronic pleural effusions without any respiratory distress, no hyperkalemia - Nephrology consulted Anemia - normocytic --> in the setting of ESRD - Hgb= 9.6, baseline of about 9 (3) Pleural effusion: Plan: Chronic pleural effusions again noted on imaging --> no acute respiratory distress or increased oxygen requirement - Is in the process of getting established with pulmonology as an outpatient for potential thoracentesis (4) Sacral wound: Plan: Chronic sacral wound without signs of acute infection - Wound care consulted Plan Code: DNR/DNI VTE prophylaxis: subQ heparin Admission and Anticipated Discharge Date Admission Date: November 26, 2023 Subjective Patient seen and evaluated at bedside during dialysis. She reports that she is tired and weak from dialysis and sore from her fall. We discussed her imaging results from admission. All questions and concerns were addressed. No additional complaints at this time. Physical Exam Physical Exam: General: No acute distress, nondiaphoretic, frail-appearing. Skin: The skin was without rashes, erythema, or bruising. Minimal left knee swelling. Cardiac: Regular rate and rhythm without murmurs gallops or rubs. Pulm: Clear to auscultation bilaterally without wheezes, rales or rhonchi. No respiratory distress. 92% on room air. Abdominal: Soft, nontender, nondistended. Bowel sounds present. Neuro: A&O x3. No focal neurological deficits. Results & Data Results & Data Vital Signs (Past 12 Hours) Vital Signs Temp Pulse Pulse Pulse Resp BP BP 11/27/23 15:42 84 11/27/23 15:33 11/27/23 15:24 98.1 F 99 H 16 154/52 H 11/27/23 15:00 97.3 F L 11/27/23 14:51 80 123/56 L 11/27/23 14:30 80 131/68 11/27/23 14:00 80 150/64 H 11/27/23 13:30 72 142/65 H 11/27/23 13:00 67 140/60 11/27/23 12:30 67 136/69 11/27/23 12:00 65 157/62 H 11/27/23 11:51 66 124/60 11/27/23 11:40 98.2 F 66 11/27/23 08:00 98.2 F 74 18 11/27/23 07:09 77 11/27/23 06:23 73 18 BP Pulse Ox O2 Del Method 11/27/23 15:42 11/27/23 15:33 Room Air 11/27/23 15:24 92 Room Air 11/27/23 15:00 123/56 L 11/27/23 14:51 11/27/23 14:30 11/27/23 14:00 11/27/23 13:30 11/27/23 13:00 11/27/23 12:30 11/27/23 12:00 11/27/23 11:51 11/27/23 11:40 11/27/23 08:00 136/63 94 Room Air 11/27/23 07:09 11/27/23 06:23 140/65 97 Room Air Laboratory Results Reviewed CBC Reviewed chemistries Reviewed respiratory bio fire Diagnostic Findings Reviewed chest x-ray Reviewed shoulder x-ray Reviewed lumbar spine CT Reviewed knee x-ray Reviewed hip/pelvis x-ray PG Care Time/CCT Total # of Minutes Spent Total Time Spent with Patient: Total time spent is greater than 50% in coordination of care (as documented) at patient's floor/unit and/or counseling patient: Coding Level of Care Code 37051 SUB INP/OBS CARE 2/35MIN Diagnoses Fall from standing W19.XXXA ESRD on dialysis N18.6; Z99.2 Pleural effusion J90 Sacral wound S31.000A
[2023-11-27] MEDS: ATORVASTATIN 10 MG TAB PO SCH (20:49)
--- NOTE | 2023-11-27 21:27 | Billing Data ---
Date of Service November 27, 2023 Coding Level of Care Code 51481 INT INP/OBS CARE
[2023-11-28 07:38] LABS: Hematocrit (blood only) 29.8 % (37.0-47.0); Hemoglobin 9.6 g/dl (12.0-16.0); Mean Corpuscular Hemoglobin 28.7 pg (25.0-34.0); Mean Corpuscular Hgb Conc 32.2 g/dL (32.0-36.0); Mean Corpuscular Volume 89.2 fL (80.0-100.0); Mean Platelet Volume 10.9 fL (9.4-12.4); Platelet Count 160 K/uL (130-400); RDW Coefficient of Variation 16.8 % (11.5-14.5); RDW Standard Deviation 54.7 fL (36.4-46.3); Red Blood Count 3.34 M/uL (4.20-5.40); White Blood Count 4.71 K/ul (4.8-10.8)
[2023-11-28 08:05] LABS: Calcium 8.1 mg/dl (8.6-10.3); Creatinine Clr Calc Pharmacy 7.7 ml/min; Est GFR (African American) 11.1 ml/min; Est GFR (Non-African American) 9.6 ml/min; Phosphorus 4.3 mg/dl (2.5-4.9); Potassium 3.9 mmol/L (3.5-5.1)
[2023-11-28 08:38] VITALS: RESP 17
[2023-11-28] MEDS: NEPHROCAPS PO SCH (08:46)
--- NOTE | 2023-11-28 10:48 | Nephrology Progress Note ---
Date of Service November 28, 2023 Assessment & Plan (1) ESRD on dialysis: (2) Fall from standing: (3) Generalized weakness: (4) Anemia: (5) Ambulatory dysfunction: Plan ESRD, on hemodialysis via Right IJ tunneled dialysis catheter on TTS at [facility]. Has history of GI bleeding with GAVE, presented withfall at home, generalized weakness. Blood pressure, volume status and electrolyte acceptable. Hb stable. -- had HD yesterday, Epogen 10,000 units during given on 11/26 --Continue on low-potassium, low phosphorus diet, continue on PhosLo with meals, renal caps daily --Dose medications for eGFR less than 10. --OK to discharge. Admission and Anticipated Discharge Date Admission Date: November 26, 2023 Kathryn Virk was seen and evaluated this morning. Reports overall feeling well, asymptomatic and eager to go home. Blood pressure well-controlled, electrolyte, volume status acceptable. Review of Systems Review of Systems: Detailed review of system was done and pertinent positives and negatives are mentioned above. Physical Exam Constitutional: WD/WN, vitals as above + frail appearing; no acute distress Eyes: + anicteric sclerae Respiratory: no respiratory distress Auscultation: + diminished lung sounds Cardiovascular: Rate/Rhythm: regular rate and regular rhythm Heart Sounds: normal S1 and normal S2 Extremities: + vascular access device (Rt IJ TDC); no edema Musculoskeletal: Extremities: extremities normal to inspection Skin: no rashes, warm and dry Neurologic: no focal motor deficits Psychiatric: Orientation: alert and oriented x 3 Affect: euthymic affect Results & Data Vital Signs (Past 12 Hours) Vital Signs Temp Pulse Resp BP Pulse Ox O2 Del Method 11/28/23 09:49 Room Air 11/28/23 08:37 36.9 C 78 17 127/67 95 Room Air 11/28/23 03:05 37.2 C 87 16 108/67 93 Room Air 11/28/23 00:35 Room Air PG Care Time/CCT Total # of Minutes Spent Total Time Spent with Patient: Total time spent is greater than 50% in coordination of care (as documented) at patient's floor/unit and/or counseling patient: Coding Level of Care Code 25888 SUB INP/OBS CARE 03/29MIN Diagnoses ESRD on dialysis N18.6; Z99.2 Fall from standing W19.XXXA Generalized weakness R53.1 Anemia D64.9 Ambulatory dysfunction R26.2
[2023-11-28 11:39] VITALS: TEMP 98.6; O2SAT 97
[2023-11-28 16:04] VITALS: BP 123/56; PULSE 66
--- NOTE | 2023-11-28 17:23 | Discharge Summary ---
Discharge Summary Date of Service November 28, 2023 Principal Dx & Hospital Course #1 = Principal Diagnosis (1) Fall from standing: Presented after an unwitnessed fall at home where she was on the ground for about 3 hours. Daughter has concerns for ambulatory dysfunction and her ability to take care of herself. Patient does live alone, uses a walker for ambulation at baseline. - Left knee x-ray showed soft tissue swelling without fracture or dislocation. CXR showed stable pleural effusions. Hip/pelvis x-ray, shoulder x-ray, chest x- ray all unremarkable. - CT lumbar spine without acute injury - Elevated CK= 540 - Continue home tramadol 50mg BID prn - PT/OT recommended rehab. Discussed this with the patient initially adamantly declined. Discussed home health PT, which she reports she already has their service but does not feel that it is beneficial and would not like to extend their service at this time. - Recommend PCP follow-up in 1 week from discharge. Elevated troponin, most likely secondary to demand ischemia - Trop peaked at 107, and then down trended - No ischemic changes on EKG, denies chest pain/dyspnea - Chronically elevated 80/90s, low suspicion for ACS (2) ESRD on dialysis: Follows Sunday//Sunday dialysis schedule - has not missed any sessions prior to admission - chronic pleural effusions without any respiratory distress, no hyperkalemia - Nephrology consulted Anemia - normocytic --> in the setting of ESRD - Hgb= 9.6, baseline of about 9 (3) Pleural effusion: Chronic pleural effusions again noted on imaging --> no acute respiratory distress or increased oxygen requirement - Is in the process of getting established with pulmonology as an outpatient for potential thoracentesis (4) Sacral wound: Chronic sacral wound without signs of acute infection. *Pressure ulcer of sacral region, unstageable, POA - Wound care consulted > To left medial sacral area wound: - Clean with saline. Cover with Aquacel Ag and secure with Optifoam. Change daily and as needed. - No diapers. - EHOB Chair cushion, do not sit on pillow. - Weight shifts for stand when sitting at least every 30-60 minutes. - Turn at least every 2 hours when in bed. Plan CODE STATUS: DNR/DNI Notes For Next Care Provider Patient was admitted after an unwitnessed fall at home where she was on the ground for about 3 hours. All imaging was unremarkable, including hip/pelvis, left knee, and chest x-rays, as well as CT lumbar spine. PT/OT recommended rehab which patient adamantly declined. She also was not interested in extending her home health service. Recommend PCP follow-up appointment. Medication Changes From Visit None Admission HPI Per Admitting Provider 83 year old female with a past medical history of ESRD on HD- Sat/Tu/Th, anemia, aortic stenosis, pressure sore sacrum, chronic pleural effusions, DM2, cirrhosis, HFpEF presenting after fell. Fell yesterday and was on the ground for about 3 hours. Continued left knee pain today. Daughter has concerns for ambulatory dysfunction and her ability to take care of herself. She lives alone, uses a walker for ambulation at baseline. At present notes some left knee pain. Denies chest pain, dyspnea, lightheadedness/dizziness. ED Course Significant for: Hbg= 9.6, Troponin 103-> 107, CK= 540. CXR with left sided pleural effusion per my read, Knee/Hip pending, CT lumbar spine without acute denis injury, pleural effusions noted. Admission Exam Per Admitting Provider Constitutional: well-appearing, no acute distress HEENT: NCAT, no conjunctival injection CV: regular rhythm, no murmur appreciated, extremities well-perfused, no LE edema Resp: CTABL, no wheezes/rales/rhonchi appreciated, no increased work of breathing GI: soft, nondistended, nontender, BS normoactive MSK: no gross deformities appreciated- some swelling left knee Skin: warm, dry, no rash appreciated Neuro: alert, oriented, no focal neurologic deficit appreciated Discharge Exam General: No acute distress, nondiaphoretic, frail-appearing. Skin: The skin was without rashes, erythema, or bruising. Minimal left knee swelling. Cardiac: Regular rate and rhythm without murmurs gallops or rubs. Pulm: Clear to auscultation bilaterally without wheezes, rales or rhonchi. No respiratory distress. 97% on room air. Abdominal: Soft, nontender, nondistended. Bowel sounds present. Neuro: A&O x3. No focal neurological deficits. Discharge Plan Discharge Items Patient Disposition: Home - Self-Care Reason For Visit: FALL Discharge Diagnosis: Falls secondary to generalized weakness Activity: Resume your previous activity Non-emergency contact: Primary Care Provider Call non-emergency contact if: you have any medication questions and your symptoms worsen Follow-up/Referrals: Agatha Alfaro DO [Primary Care Provider] - 12/06/23 9:20 am (Follow-up appointment in 1 week) Diet: Dialysis Renal Addtl Attending Provider Instructions: Ms. Ray, You are admitted to the hospital after falling at home. The x-ray of your left knee showed some soft tissue swelling, but no fracture or dislocation. The x- rays of your hip/pelvis, shoulder, and chest were all unremarkable. The CT of your lumbar spine showed no acute injury. You were evaluated by her physical therapist and occupational therapist, who recommend rehab, however since you are not interested, you are being discharged home. There have been no medication changes from this hospitalization. You can continue your current home medications as prescribed. Continue your dialysis schedule as prescribed. I recommend following up with your PCP in 1 week. Please return to the hospital if you experience any of the following: Chest pain, shortness of breath, confusion, lightheadedness, dizziness, passing out, fall with head strike or injury. It was a pleasure taking care of you while you were in the hospital, Sharita Burrows PA-C Pending Studies at Discharge: No Stand-Alone Forms: My [facility], Smoking Cessation Medications and DC Order Prescriptions: Continued bethanechol chloride 50 mg tablet 50 mg PO BID Qty: 180 3RF (DME) Fitted Briefs X-Large Misc See Rx Instructions .Route Qty: 150 5RF Rx Instructions: using 4-5 per day R19.7 furosemide 80 mg tablet 80 mg PO BID Qty: 180 1RF pantoprazole [Protonix] 40 mg tablet,delayed release (DR/EC) 40 mg PO BID Qty: 60 5RF triamcinolone acetonide 0.5 % cream 1 applic topical BID PRN (Reason: skin irritation) Qty: 60 1RF atorvastatin [Lipitor] 10 mg tablet 10 mg PO HS Qty: 90 1RF ropinirole 0.5 mg tablet 0.5 mg PO UD Qty: 90 1RF Rx Instructions: Take 0.5mg by mouth in the morning; then take 1.5mg by mouth at bedtime methocarbamol 500 mg tablet 500 mg PO TID PRN (Reason: muscle spasm) Qty: 90 1RF tramadol 50 mg tablet 50 mg PO BID PRN (Reason: Pain) Qty: 60 0RF sertraline 50 mg tablet 50 mg PO DAILY Qty: 30 2RF famotidine 40 mg tablet 40 mg PO BID Qty: 60 2RF calcium acetate 667 mg tablet See Rx Instructions .ROUTE .COMPLEX Rx Instructions: Per pt's daughter, pt has been taking Calcium Acetate 667mmg by mouth twice daily with two meals ALONG with Sevelamer 800mmg by mouth twice daily with meals. These are taken with the same meals. Pt's daughter says she was never told to discontinue one so the pt has been taking both at the same time. fluticasone propionate [Flonase Allergy Relief] 50 mcg/actuation spray,suspension 1 spray intranasal DAILY Qty: 16 2RF Rx Instructions: administer into each nostril Metamucil (sugar) Powder See Rx Instructions PO DAILY PRN (Reason: diarrhea) Qty: 1254 0RF Rx Instructions: 7.2 grams orally daily PRN; cholecalciferol (vitamin D3) [Vitamin D3] 1,000 unit Capsule 2,000 unit PO QAM loperamide 2 mg Capsule 2 mg PO UD PRN (Reason: Diarrhea) Rx Instructions: administer after each loose stool until symptoms controlled; do not exceed 8 mg per 24 hrs estradiol 0.01 % (0.1 mg/gram) cream 1 applic VAGINAL 3XWK PRN (Reason: ONLY WHEN BURNING) nystatin 100,000 unit/gram powder 1 applic TOPICAL BID PRN (Reason: IRRITATION) cyanocobalamin (vitamin B-12) [Vitamin B-12] 1,000 mcg tablet 1,000 mcg PO QAM Cavilon Durable Barrier 1.3 % cream 1 applic topical DAILY PRN (Reason: skin irritation) Rx Instructions: as needed for skin protection mv,Ca,min-folic acid-vit K1 400-20 mcg Tablet 1 tab PO DAILY calcium carbonate-vitamin D3 [Calcium 600 + D(3)] 600 mg-10 mcg (400 unit) Tablet 1 tab PO DAILY omega-3 fatty acids 1,000 mg Capsule 1,000 mg PO DAILY levothyroxine 150 mcg tablet 150 mcg PO QAM sevelamer carbonate 800 mg tablet See Rx Instructions .ROUTE .COMPLEX Rx Instructions: Per pt's daughter, pt has been taking Calcium Acetate 667mmg by mouth twice daily with two meals ALONG with Sevelamer 800mmg by mouth twice daily with meals. These are taken with the same meals. Pt's daughter says she was never told to discontinue one so the pt has been taking both at the same time. Discharge Orders: Discharge Order (Routine); Ordered 11/28/23 Ordered By: Sharita Burrows Admission Data Admit Date/Time: 11/26/23 22:58 Attending Provider: Chris West Admit Provider: Reyna Quijano Primary Care Provider: Agatha Alfaro Other Providers: Jhon Beck; Tiesha Will [facility] Other Interventions: Discharge Summary Assessment (RN) Last Done: 11/28/23 16:02 Hospital Stay Data Consultations 11/26/23 22:41 ED Decision to Admit Stat 11/27/23 00:20 Consult Nephrology Routine Diagnostic Imagining Performed Hip/Pelvis X-Ray 11/26/23 18:32 SINGLE VIEW PELVIS; 2 VIEWS LEFT HIP CLINICAL HISTORY: Fall. Left hip pain. FINDINGS: An AP view of the pelvis with AP and frog-leg views of the left hip are correlated with pelvic CT dated 07/12/2022. The skeletal structures are osteopenic. There is no radiographic evidence of acute fracture involving the hips or bony pelvis. Mild arthritic change and joint space narrowing is seen in the hips, right greater than left. There is degenerative sclerosis of the sacroiliac joints. Extensive postsurgical change is seen in the lumbosacral spine. The overlying soft tissues are normal as visualized. Phleboliths are seen in the pelvis. IMPRESSION: No acute bony abnormality is identified. Electronically signed by: Eulogio Gaspar M.D. 11/27/2023 7:59 AM Knee X-Ray 11/26/23 18:32 XR knee LT 3V HISTORY: 83 years-old Female L knee pain s/p fall acute left knee pain status post fall COMPARISON: None TECHNIQUE: 3 views of the left knee FINDINGS: Total joint arthroplasty. Medial plate and screw fusion of the distal femur. Arterial calcifications. Moderate circumferential soft tissue swelling with associated joint effusion. No acute fracture, dislocation or osseous erosion. IMPRESSION: 1. Soft tissue swelling and joint effusion without acute fracture or dislocation. 2. Unremarkable appearance of the total joint arthroplasty and distal femoral ORIF hardware. ACT 112: Negative or not required by law. The above report was generated using voice recognition software. It may contain grammatical, syntax or spelling errors. Electronically signed by: Oskar Jalloh M.D. 11/27/2023 6:[address] 11/26/23 18:32 Exam(s): CT L SPINE EXAM: CT Lumbar Spine Without Intravenous Contrast CLINICAL HISTORY: low back pain s/p fall. TECHNIQUE: Axial computed tomography images of the lumbar spine without intravenous contrast. CTDI is 39.74 mGy and DLP is 1173.05 mGy-cm. Automated exposure control was utilized for the study. A dose lowering technique was utilized adhering to the principles of ALARA. COMPARISON: No relevant prior studies available. FINDINGS: Vertebrae: The vertebral bodies are intact without acute osseous traumatic injury. There is straightening of the normal lumbar lordosis. No anterolisthesis or retrolisthesis is noted. There is posterior fusion with laminectomy defects throughout the lumbar spine with pedicle screws and paraspinal rods noted bilaterally. The hardware is incompletely included, but is noted from T11 through the S1 segment. Laminectomy defects noted from L1 distally. The pedicles, facet joints in transverse processes are intact. Discs/spinal canal/neural foramina: Interbody hardware noted at L5-S1 level. Multilevel degenerative changes with posterior marginal osteophytes. Evaluation of the central canal is limited without intrathecal contrast. Soft tissues: No significant acute traumatic paraspinal soft tissue abnormality. Subcutaneous edema noted in the dorsal superficial soft tissues. No well-defined hematoma or radiopaque foreign body. Vasculature: Incidental atherosclerotic calcification of the aorta without aneurysm. Pleural space: Large pleural effusions noted detailed evaluation limited. Gallbladder and bile ducts: Incidental calcified gallstones layering posteriorly in the gallbladder. Other findings: Incidental vacuum phenomenon involving both sacroiliac joints. IMPRESSION: 1. Extensive posterior fusion from the inferior thoracic through the superior sacrum. No acute osseous traumatic injury or abnormal alignment. No evidence for hardware failure. 2. Superficial subcutaneous edema noted in the dorsal soft tissues. No radiopaque foreign body, well-defined hematoma or subcutaneous emphysema. No significant paraspinal soft tissue abnormality. 3. Large pleural effusions noted detailed evaluation limited. There is a rounded cortical structure laterally involving the midpole right kidney. Detailed evaluation limited. No significant perinephric abnormality noted. Electronically signed by: Dawit Clemons MD 11/26/23 22:11 PM Shoulder X-Ray 11/26/23 18:32 LEFT SHOULDER 3 VIEWS CLINICAL HISTORY: Fall. Left shoulder pain. FINDINGS: 3 views of the left shoulder are obtained. Correlation is made with chest x-ray dated 10/31/2023. The examination is degraded by suboptimal patient positioning. The skeletal structures are osteopenic. There is no clear radiographic evidence of acute fracture or dislocation. Severe osteoarthritic change is seen at the glenohumeral articulation. Productive degenerative change is noted at the acromioclavicular joint. Fusion hardware is seen in the thoracolumbar spine. There is a layering left pleural effusion with left basilar consolidation. A right-sided central venous catheter is partially visualized. IMPRESSION: 1. No acute fracture or dislocation is identified. 2. Severe arthritic change at the glenohumeral joint. 3. Layering left pleural effusion with left basilar consolidation. Electronically signed by: Eulogio Gaspar M.D. 11/27/2023 8:01 AM Chest X-Ray 11/26/23 18:33 XR chest 1V portable HISTORY: 83 years-old Female weakness COMPARISON: 10/31/2023 TECHNIQUE: AP view of the chest FINDINGS: Cardiac silhouette is enlarged. Patient is mildly rotated toward the left. Right IJ dual-lumen hemodialysis catheter is in unchanged positioning. No pneumothorax. Interstitial pulmonary edema redemonstrated along with layering pleural effusions and bibasilar consolidation, left greater than right. No significant change. Lumbar spinal fusion hardware. Bones appear grossly intact. IMPRESSION: 1. Cardiomegaly with unchanged pulmonary edema. 2. Stable pleural effusions with bibasilar consolidation. ACT 112: Negative or not required by law. The above report was generated using voice recognition software. It may contain grammatical, syntax or spelling errors. Electronically signed by: Oskar Jalloh M.D. 11/27/2023 6:50 AM Pending Results Patient Have Any Pending Studies at Discharge: No Discharge Instructions Given to Patient (Per Discharging Provider) Ms. Ray, You are admitted to the hospital after falling at home. The x-ray of your left knee showed some soft tissue swelling, but no fracture or dislocation. The x- rays of your hip/pelvis, shoulder, and chest were all unremarkable. The CT of your lumbar spine showed no acute injury. You were evaluated by her physical therapist and occupational therapist, who recommend rehab, however since you are not interested, you are being discharged home. There have been no medication changes from this hospitalization. You can continue your current home medications as prescribed. Continue your dialysis schedule as prescribed. I recommend following up with your PCP in 1 week. Please return to the hospital if you experience any of the following: Chest pain, shortness of breath, confusion, lightheadedness, dizziness, passing out, fall with head strike or injury. It was a pleasure taking care of you while you were in the hospital, Sharita Burrows PA-C Total Time Total Time Spent Total Time Spent (In Minutes): Greater than 30 minutes spent completing this discharge process including direct patient care, medication reconciliation, documentation, review of labs and images, and coordination of care. Coding Level of Care Code 25660 INP/OBS DISCH >30 MIN Diagnoses Fall from standing W19.XXXA ESRD on dialysis N18.6; Z99.2 Pleural effusion J90 Sacral wound S31.000A
--- NOTE | 2023-11-29 06:04 | Electrocardiogram Report ---
Test Reason : Blood Pressure : */* mmHG Vent. Rate : 72 BPM Atrial Rate : 72 BPM P-R Int : 346 ms QRS Dur : 124 ms QT Int : 452 ms P-R-T Axes : 50 -23 -3 degrees QTcB Int : 494 ms Sinus rhythm with 1st degree A-V block Right bundle branch block Possible Lateral infarct , age undetermined Abnormal ECG When compared with ECG of 30-Oct-2023 04:52, Sinus rhythm is no longer with 2nd degree A-V block (Mobitz I) Confirmed by Delvin Sullivan ([id number]) on 11/29/2023 6:04:14 AM Referred By: REFERRED SELF Confirmed By: Delvin Sullivan
== END 2023-11-28 17:19 | disposition home or self-care (01) | DRG 91 ==
LOC: SUATTDRO → ED 17:31 → SUATTDRO 22:58 → EDINP 22:58 → 2N 11-27 00:20

== ENCOUNTER 2023-11-30 10:52 | Inpatient (IN) ==
[2023-11-30 11:36] LABS: Basophils # (auto) 0.03 K/uL (0.00-0.20); Basophils % (auto) 0.3 %; Hematocrit (blood only) 32.8 % (37.0-47.0); Hemoglobin 10.5 g/dl (12.0-16.0); Immature Granulocytes # (auto) 0.02 K/uL (0.01-0.20); Immature Granulocytes % (auto) 0.2 %; Lymphocytes # (auto) 0.34 K/uL (1.20-3.40); Lymphocytes % (auto) 3.8 %; Mean Corpuscular Hemoglobin 28.7 pg (25.0-34.0); Mean Corpuscular Volume 89.6 fL (80.0-100.0); Mean Platelet Volume 10.4 fL (9.4-12.4); Monocytes # (auto) 0.73 K/uL (0.11-0.59); Monocytes % (auto) 8.3 %; Neutrophils # (auto) 7.72 K/uL (1.40-6.50); Neutrophils % (auto) 87.4 %; Platelet Count 219 K/uL (130-400); RDW Coefficient of Variation 15.9 % (11.5-14.5); RDW Standard Deviation 52.4 fL (36.4-46.3); Red Blood Count 3.66 M/uL (4.20-5.40); White Blood Count 8.84 K/ul (4.8-10.8)
--- NOTE | 2023-11-30 11:51 | Emergency Department Note ---
Impression & Plan Right sided weakness, Facial droop, Skin tear of right upper extremity, Fall, Acute UTI (urinary tract infection) ED Provider Note NAME: NIURKA QUIÑONES AGE: 83 SEX: Female INFORMANT: Patient and family ED PROVIDER(S): Satya Reina MD CHIEF COMPLAINT: Fall PLAN: Disposition: Admitted Outpatient prescription management: none Referral: None MEDICAL DECISION MAKING: Patient presented because of fall and right-sided weakness. Time of onset seems somewhat drawnout as symptoms started 5 days ago, worsened 2 days ago and seem to escalate sometime in the last 18 hours. Due to the unclear time of onset and the fall patient was deemed not a TNK candidate. Workup was initiated. Patient's skin tear on the right upper extremity was repaired with Dermabond. Patient's blood work was unremarkable. CT imaging did not reveal any acute findings. Urinalysis was concerning for infection. Reviewed the patient's prior culture results. Discussed with hospitalist and ED pharmacist. Will place the patient on Zosyn as this should cover prior issues with E. coli, Enterococcus, and Pseudomonas. Further management in the hospital will be necessary. Consultation was made with Dr. Soren Sue of the [facility] service. Patient was evaluated in the ER for further management. Care/management discussed with: technical sales support manager Level of care consideration(s): After review of the information above and other included data, I feel the patient requires escalation of care to admission Triage Nursing notes: reviewed and agree them. Vital Signs: reviewed and remarkable for no abnormalities Additional History obtained from: Family Chronic Medical/Social Conditions affecting care: Dialysis status Prior/ Outside/ External records reviewed: none Differential Diagnosis: Trauma, infection, dehydration, metabolic abnormality, hypo/hyperglycemia, electrolyte disturbance, anemia, hypoxia, cardiac sources, intracerebral event, toxicologic, neurologic, CVA, TIA, as well as other pathologies. Diagnostics, independently interpreted by me: ECG: Twelve-lead ECG reveals a sinus rhythm first-degree block 84 bpm. Left axis deviation. Right bundle branch block. No ST elevation Cardiac Monitoring: Cardiac monitoring ordered by me: The patient was placed on continuous cardiac monitoring and observed. It revealed a sinus rhythm at 84 bpm beats per minute without ectopy or evidence of dysrhythmia. Medical decision rules: none Imaging studies: Head CT: A noncontrast CT scan of the head was performed and was negative for tumor, fracture, intracranial hemorrhage, or other acute pathology. Chest x-ray. Findings: A chest x-ray was performed and revealed no pneumothorax, effusion, infiltrate, pulmonary edema, free air under the diaphragm, or wide mediastinum. Impression: No acute disease. HPI: 83 year old Female arrives for evaluation of a fall. Patient was found down on the ground today leaning into the wall by her son. There was a skin tear on the right upper extremity. She seemed to be weak on the right side with right facial droop. Patient has dementia and does not remember what happened. She does not know why she was walking in the early hours of this morning. Family states that she seemed to be leaning to the right side 5 days ago. Patient seem to have worsening weakness 2 days ago. The facial droop on the right side was not visible yesterday but noted today. Patient denies any headache, neck pain, back pain, chest pain, abdominal pain, vomiting, extremity pain other than the skin tear, or other complaints. PAST MEDICAL HISTORY: See Below, end-stage renal disease, dialysis, pleural effusion, C. difficile, diabetes PAST SURGICAL HISTORY: See Below, SOCIAL HISTORY: See Below, retired HOME MEDICATIONS: See Below ALLERGIES: See Below VITALS: See Below PHYSICAL EXAMINATION: GENERAL: Awake, alert, vtg-[id number]-dhnrskmry, in no distress HENT: Normocephalic, atraumatic. Oropharynx unremarkable. EYES: Normal conjunctiva. Sclera non-icteric. PERRLA. Right periorbital edema noted without erythema. NECK: Inspection normal. Non-tender. Supple. No nuchal rigidity. FROM. No masses. RESPIRATORY: Clear to auscultation. No wheezes. No rales. Normal respiratory effort. CARDIAC: Normal rate. Normal rhythm. No murmurs. No rubs. Extremities warm and well perfused. Pulses equal. No JVD. GI: Soft, non-distended. No tenderness to palpation. No rebound or guarding. No masses. RECTAL: Deferred. MUSCULOSKELETAL: Atraumatic. Chest examination reveals no tenderness. The back is symmetrical on inspection without obvious abnormality. There is no CVA tenderness to palpation. No joint edema. LOWER EXTREMITIES: Calves are equal size bilaterally and non-tender. No edema. No discoloration. NEURO: Normal sensorium. No sensory or motor deficits noted. SKIN: No rash or jaundice noted. PROCEDURES: none CRITICAL CARE: none OBSERVATION NOTE: none Past Med/Surg History Problem List (Updated 11/30/23 @ 19:05 by Satya Reina MD) Acute UTI (urinary tract infection) (Acute) Pressure ulcer Fall (Acute) Skin tear of right upper extremity (Acute) Facial droop (Acute) Right sided weakness (Acute) Sacral wound Generalized weakness (Acute) Fall from standing (Acute) ESRD on dialysis (Acute) Ambulatory dysfunction (Acute) Discharge planning issues DVT prophylaxis Pleural effusion CKD (chronic kidney disease) (Acute) Anemia (Acute) Shakiness (Acute) Bilateral edema of lower extremity (Acute) Physical deconditioning ESRD on dialysis (Acute) Ascites Aortic stenosis 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 Palliative care by specialist Pancytopenia Clostridioides difficile carrier Vitamin D deficiency (Chronic) Recurrent urinary tract infection 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 aguirre Osteoarthritis Hyperlipidemia History of CVA (cerebrovascular accident) (2019) ~5years ago, woke up with weakness in her rt hand; L lacunar infarct; previously on plavix>no residual effects Hiatal hernia GERD without esophagitis Fatty liver Essential tremor MINOR IN HAND Diabetic retinopathy Chronic hyponatremia Chronic diastolic heart failure CAD (coronary artery disease) Anxiety Anemia of chronic disease GAVE (gastric antral vascular ectasia) (Acute) Medical History Right wrist pain Generalized weakness Fatigue CKD (chronic kidney disease) CKD (chronic kidney disease) Sepsis Encephalopathy UTI (urinary tract infection) Lower extremity cellulitis Pleural effusion, bilateral Elevated brain natriuretic peptide (BNP) level Elevated troponin I level Pericardial effusion Elevated brain natriuretic peptide (BNP) level Non-ST elevation DC (NSTEMI) Pancytopenia Hemorrhoids History of recent hospitalization GI BLEED/LOW BLOOD COUNT/HX BLOOD TRANSFUSION - MAY 2022 - [facility] ESRD on hemodialysis tuesdays, , and saturdays currently Poor historian History of GI bleed hx 08/2021, given transfusion-per medical record REASON FOR UPCOMING PROCEDURE Hx of atrial fibrillation, no current medication per medical report History of renal dialysis [facility] ([facility]/ACROSS FROM [facility]) ACCESS SITE RIGHT SIDE OF CHEST/ ? DETAILS Resistant hypertension Diabetes mellitus, type 2 Hearing deficit no hearing aids Urinary urgency Secondary hyperparathyroidism of renal origin First degree AV block Hypertension Hypothyroidism Surgical History History of esophagogastroduodenoscopy (EGD) multiple---last 08/01/2022 @ [facility] 04/06/[address] [facility] with [address] Mich Pacheco- EGD- Gastric antral vascular ectasia with bleeding, treated with argon plasma coagulation (APC); Few angioectasias in the duodenum, treated with APC S/P pericardiocentesis 08/2021, [facility], w/dr moura Hx of cardiac catheterization 08/2021, [facility] w/Dr. Moura for increased cardiac pressures; no stents History of tooth extraction History of colonoscopy H/O varicose vein ligation S/P trigger finger release S/P knee replacement RT/LEFT History of bladder suspension procedure X 2 S/P carpal tunnel release RT/LEFT History of back surgery (04/2010) X 2 S/P hysterectomy [place] Family History Father Alcohol abuse Heart disease Myocardial infarction Hypertension Sister Pancreatic cancer Diabetes Breast cancer Brother Diabetes Alcohol abuse Stroke Other Cancer No family history of adverse response to anesthesia Denies family history of Ovarian cancer Prostate cancer Colorectal cancer Social History Smoking Status: Former smoker Second Hand Exposure: No; Do You Dip or Chew Tobacco: No; Hx Alcohol Use: No Hx Substance Use: No Preferred Language: Romanian Communication Ability: Effective Visual Impairment: No Limitations Hearing Ability: Normal Government Affairs Manager Required: No Beliefs That Will Affect Care: None marital status: Single Current Living Situation: Alone Current Living Situation Comment: 1 story home with ramp to enter home current occupational status: retired How many Children do You have: 2 Feels Safe at Home: Yes Childhood Exposure to Second-Hand Smoke: No Diet: regular Diet Comment: regular caffeine: Yes (Coffee x 2 cups per day.) during the past year weight has: remained stable Dental Care, Regularly: No Physical Activity Frequency: Does not Exercise Seatbelt Use: always Sunscreen Use: Yes Assistive Devices: Walker Allergies Allergies Allergy/AdvReac Type Severity Reaction Status Date / Time sulfamethoxazole AdvReac Unknown REMOTE Verified 11/27/23 08:06 [From Bactrim] HX/PT NOT SURE REACTION trimethoprim [From Bactrim] AdvReac Unknown REMOTE Verified 11/27/23 08:06 HX/PT NOT SURE REACTION Home Meds Home Medications Medication Instructions Recorded Confirmed cholecalciferol (vitamin D3) 25 2,000 unit PO QAM 05/29/18 11/30/23 mcg (1,000 unit) capsule (Vitamin D3) cyanocobalamin (vitamin B-12) 1,000 mcg PO QAM 11/12/20 11/30/23 1,000 mcg tablet (Vitamin B-12) loperamide 2 mg capsule 2 mg PO UD PRN Diarrhea 05/29/22 11/30/23 estradiol 0.01% (0.1 mg/gram) 1 applic vaginal 3XWK PRN ONLY 05/30/22 11/30/23 vaginal cream WHEN BURNING nystatin 100,000 unit/gram topical 1 applic topical BID PRN IRRITATION 07/10/22 11/30/23 powder calcium acetate 667 mg tablet 667 mg PO UD 07/06/23 11/30/23 calcium carbonate 600 mg-vitamin 1 tab PO DAILY 07/23/23 11/30/23 D3 10 mcg (400 unit) tablet (Calcium 600 + D(3)) omega-3 fatty acids 1,000 mg 1,000 mg PO DAILY 07/23/23 11/30/23 capsule dimethicone 1.3 % topical cream 1 applic topical DAILY PRN skin 08/25/23 11/30/23 (Cavilon Durable Barrier) irritation ytazyejfwcie-vxexfacw-gebxkeu-folic 1 tab PO DAILY 10/30/23 11/30/23 acid 400 mcg-vit K1 20 mcg tablet levothyroxine 150 mcg tablet 150 mcg PO QAM 11/27/23 11/30/23 sevelamer carbonate 800 mg tablet 800 mg PO UD 11/27/23 11/30/23 Previous Rx's Medication Instructions Recorded bethanechol chloride 50 mg tablet 50 mg PO BID #180 tabs 04/19/21 diaper,brief,adult,disposable #150 ea 12/07/21 (Fitted Briefs X-Large) furosemide 80 mg tablet 80 mg PO BID #180 tabs 05/28/23 pantoprazole 40 mg tablet,delayed 40 mg PO BID #60 tabs 06/27/23 release (Protonix) triamcinolone acetonide 0.5 % 1 applic topical BID PRN skin 07/03/23 topical cream irritation #60 grams fluticasone propionate 50 1 spray intranasal DAILY #16 grams 08/16/23 mcg/actuation nasal spray,suspension (Flonase Allergy Relief) atorvastatin 10 mg tablet (Lipitor) 10 mg PO HS #90 tabs 08/20/23 methocarbamol 500 mg tablet 500 mg PO TID PRN muscle spasm #90 09/20/23 tabs ropinirole 0.5 mg tablet 0.5 mg PO UD #90 tabs 09/20/23 tramadol 50 mg tablet 50 mg PO BID PRN Pain #60 tabs 10/29/23 sertraline 50 mg tablet 50 mg PO DAILY #30 tabs 11/12/23 famotidine 40 mg tablet 40 mg PO BID #60 tabs 11/19/23 psyllium seed (sugar) oral powder See Rx Instructions PO DAILY PRN 11/19/23 (Metamucil (sugar) oral powder) diarrhea #1,254 grams Results & Data (ED) Vital Signs Vital Signs - 24 hr 11/30/23 11:09 11/30/23 11:11/30/23 11:09 Temperature 36.7 C Temperature Source Axillary Pulse Rate 84 Pulse Rate [Apical] Respiratory Rate 22 Respiratory Effort / Characteristics Non-Labored Non-Labored Respiratory Depth Normal Normal Blood Pressure 123/59 L Blood Pressure [Right Arm] Blood Pressure Mean 80 Blood Pressure Mean [Right Arm] Blood Pressure Position [Right Arm] Pulse Oximetry 97 Oxygen Delivery Method Room Air Room Air Sepsis Recent Fever Within 48 Hours No Sepsis New/Unexplained Change in Mental Status No Sepsis Action Taken by Nursing No Action Required 11/30/23 11:29 11/30/23 13:00 Temperature Temperature Source Pulse Rate 84 Pulse Rate [Apical] 78 Respiratory Rate 16 Respiratory Effort / Characteristics Non-Labored Respiratory Depth Normal Blood Pressure Blood Pressure [Right Arm] 129/65 Blood Pressure Mean Blood Pressure Mean [Right Arm] 86 Blood Pressure Position [Right Arm] Lying Pulse Oximetry 94 Oxygen Delivery Method Room Air Sepsis Recent Fever Within 48 Hours Sepsis New/Unexplained Change in Mental Status Sepsis Action Taken by Nursing Laboratory Data 11/30/23 11:10 11/30/23 11:10 Lab Results 11/30/23 Range/Units 11:10 WBC 8.84 (4.8-10.8) K/ul RBC 3.66 L (4.20-5.40) M/uL Hgb 10.5 L (12.0-16.0) g/dl Hct 32.8 L (37.0-47.0) % MCV 89.6 (80.0-100.0) fL MCH 28.7 (25.0-34.0) pg MCHC 32.0 (32.0-36.0) g/dL RDW Std Deviation 52.4 H (36.4-46.3) fL RDW Coeff of Irasema 15.9 H (11.5-14.5) % Plt Count 219 (130-400) K/uL MPV 10.4 (9.4-12.4) fL Immature Gran % (Auto) 0.2 % Neut % (Auto) 87.4 % Lymph % (Auto) 3.8 % White % (Auto) 8.3 % Eos % (Auto) 0.0 % Baso % (Auto) 0.3 % Neut # (Auto) 7.72 H (1.40-6.50) K/uL Lymph # (Auto) 0.34 L (1.20-3.40) K/uL White # (Auto) 0.73 H (0.11-0.59) K/uL Eos # (Auto) 0.00 (0.00-0.50) K/uL Baso # (Auto) 0.03 (0.00-0.20) K/uL Immature Gran # (Auto) 0.02 (0.01-0.20) K/uL Sodium 139 (136-145) mmol/L Potassium 3.8 (3.5-5.1) mmol/L Chloride 100 (98-107) mmol/L Carbon Dioxide 28 (21-32) mmol/L Anion Gap 11 (3-11) BUN 42 H (6-23) mg/dl Creatinine 4.00 H (0.6-1.2) mg/dl Est Cr Clr Drug Dosing 8.9 ml/min Est GFR ( Amer) 11.1 ml/min Est GFR (Non-Af Amer) 9.6 ml/min BUN/Creatinine Ratio 10.5 (10-20) Glucose 180 H (70-99(Fasting)) mg/dl Calcium 8.4 L (8.6-10.3) mg/dl Magnesium 2.0 (1.7-2.4) mg/dl Total Bilirubin 0.6 (0.2-1.0) mg/dl AST 87 H (13-39) U/L ALT 37 (7-52) U/L Alkaline Phosphatase 317 H (34-104) U/L Total Protein 6.2 (6.0-8.3) gm/dl Albumin 3.1 L (3.4-5.0) gm/dl Globulin 3.1 (2.5-4.0) gm/dl Albumin/Globulin Ratio 1.0 (0.9-2) Administered Medications Discontinued Medications Piperacillin Sod/Tazobactam Sod (Zosyn) 4.5 gm in 100 mls @ 200 mls/hr IV NOW ONE Stop: 11/30/23 14:29 Last Infusion: 11/30/23 14:45 Dose: Infused Documented By: Admin: 11/30/23 13:55 Dose: 200 mls/hr Documented By: MMG Imaging Data Radiologist's Impression: Head CT 11/30/23 11:08 CT OF THE HEAD WITHOUT CONTRAST CLINICAL HISTORY: fall, right weakness COMPARISON STUDY: Head CT July 23, 2023. CT DOSE: 547.75 mGy.cm TECHNIQUE: Helical axial images of the head were obtained without IV contrast. Automated exposure control was utilized for the study. A dose lowering technique was utilized adhering to the principles of ALARA. FINDINGS: No acute intracranial hemorrhage, midline shift or mass effect is present. The ventricular system is unremarkable. White matter hypodensities favor small vessel disease. Note is again made of old infarcts. The basal cisterns are patent. No extra-axial collections are present. There are no findings to suggest acute dural sinus thrombosis or acute territorial infarct. No significant calvarial abnormalities are present. Visualized portions of the sinuses and mastoid air cells are clear. IMPRESSION: 1. No acute intracranial findings. No change in appearance of the brain. 2. No calvarial fractures. ACT 112: Negative or not required by law. Electronically signed by: William Hargrove M.D. 11/30/2023 1:08 PM Chest X-Ray 11/30/23 13:41 XR chest 1V portable CLINICAL HISTORY: weak TECHNIQUE: Single frontal radiograph of the chest was obtained. Comparison: Comparison is made to chest radiograph 11/26/2023 FINDINGS: Dual lumen port catheter noted. Posterior fixation hardware is noted in the lower thoracic spine. The cardiomediastinal silhouette is stable. Prominence and cephalization of the vasculature is seen. Left greater than right lower lung airspace opacities are seen. Moderate left and small right pleural effusion. IMPRESSION: 1. Cardiomegaly with mild pulmonary edema, unchanged. 2. Small right and moderate left pleural effusions with associated atelectasis. ACT 112: Negative or not required by law. Electronically signed by: Isacc Pak M.D. 11/30/2023 2:24 PM Discharge Plan Visit Data Chief Complaint: Fall ED Provider: Satya Reina Discharge Problem: Right sided weakness, Facial droop, Skin tear of right upper extremity, Fall, Acute UTI (urinary tract infection) Patient Disposition: Admitted As Inpatient Discharge Instructions Interventions: ED Discharge Assessment Last Done: 11/30/23 18:14
[2023-11-30 11:57] LABS: Albumin Level 3.1 gm/dl (3.4-5.0); BUN Creatinine Ratio 10.5 (10-20); Bilirubin,Total 0.6 mg/dl (0.2-1.0); Calcium 8.4 mg/dl (8.6-10.3); Creatinine Clr Calc Pharmacy 8.9 ml/min; Est GFR (African American) 11.1 ml/min; Est GFR (Non-African American) 9.6 ml/min; Globulin 3.1 gm/dl (2.5-4.0); Potassium 3.8 mmol/L (3.5-5.1); Total Protein 6.2 gm/dl (6.0-8.3)
[2023-11-30 12:58] LABS: Appearance Urine Turbid (Clear); Bacteria Urine Automated 4+ (None Seen); Bilirubin Urine Negative (Negative); Blood Urine 3+ (Negative); Color Urine Dark Yellow; Glucose Urine UA Negative (Negative); Ketones Urine Negative (Negative); Leukocyte Esterase Urine 3+ (Negative); Nitrite Urine Negative (Negative); Protein Urine 3+ (Negative); RBC Urine Automated >20 /hpf (0-2); Specific Gravity Urine 1.017 (1.000-1.030); Urobilinogen Urine Negative (Negative); WBC Urine Automated >50 /hpf (0-5)
--- NOTE | 2023-11-30 13:10 | CT Scan Report ---
CT OF THE HEAD WITHOUT CONTRAST CLINICAL HISTORY: fall, right weakness COMPARISON STUDY: Head CT July 23, 2023. CT DOSE: 547.75 mGy.cm TECHNIQUE: Helical axial images of the head were obtained without IV contrast. Automated exposure con trol was utilized for the study. A dose lowering technique was utilized adhering to the principles o f ALARA. FINDINGS: No acute intracranial hemorrhage, midline shift or mass effect is present. The ventricular system is unremarkable. White matter hypodensities favor small vessel disease. Note is again made of old infarcts. The basal cisterns are patent. No extra-axial collections are present. There are no fin dings to suggest acute dural sinus thrombosis or acute territorial infarct. No significant calvarial abnormalities are present. Visualized portions of the sinuses and mastoid air cells are clear. IMPRESSION: 1. No acute intracranial findings. No change in appearance of the brain. 2. No calvarial fractures. ACT 112: Negative or not required by law. Electronically signed by: William Hargrove M.D. 11/30/2023 1:08 PM
[2023-11-30] MEDS ORDERED: VANCOMYCIN HCL 1,250 MG in SODIUM CHLORIDE 0.9% 500 ML IV ONE (13:45)
[2023-11-30] MEDS ORDERED: VANCOMYCIN CONSULT ACTIVE PRN (13:45)
[2023-11-30] MEDS ORDERED: CEFEPIME 2,000 MG/20 ML VIAL IV STA (13:45)
--- NOTE | 2023-11-30 13:48 | History & Physical Report ---
Date of Service November 30, 2023 History of Present Illness Primary Care Provider: DO Sully Anderson Allergies Allergy/AdvReac Type Severity Reaction Status Date / Time sulfamethoxazole AdvReac Unknown REMOTE Verified 11/27/23 08:06 [From Bactrim] HX/PT NOT SURE REACTION trimethoprim [From Bactrim] AdvReac Unknown REMOTE Verified 11/27/23 08:06 HX/PT NOT SURE REACTION Home Medications Medication Instructions Recorded Confirmed Type cholecalciferol (vitamin D3) 25 2,000 unit PO QAM 05/29/18 11/30/23 History mcg (1,000 unit) capsule (Vitamin D3) cyanocobalamin (vitamin B-12) 1,000 mcg PO QAM 11/12/20 11/30/23 History 1,000 mcg tablet (Vitamin B-12) bethanechol chloride 50 mg tablet 50 mg PO BID #180 tabs 04/19/21 11/30/23 Rx diaper,brief,adult,disposable #150 ea 12/07/21 11/21/23 Rx (Fitted Briefs X-Large) loperamide 2 mg capsule 2 mg PO UD PRN Diarrhea 05/29/22 11/30/23 History estradiol 0.01% (0.1 mg/gram) 1 applic vaginal 3XWK PRN ONLY 05/30/22 11/30/23 History vaginal cream WHEN BURNING nystatin 100,000 unit/gram topical 1 applic topical BID PRN IRRITATION 07/10/22 11/30/23 History powder furosemide 80 mg tablet 80 mg PO BID #180 tabs 05/28/23 11/30/23 Rx pantoprazole 40 mg tablet,delayed 40 mg PO BID #60 tabs 06/27/23 11/30/23 Rx release (Protonix) triamcinolone acetonide 0.5 % 1 applic topical BID PRN skin 07/03/23 11/30/23 Rx topical cream irritation #60 grams calcium acetate 667 mg tablet 667 mg PO UD 07/06/23 11/30/23 History calcium carbonate 600 mg-vitamin 1 tab PO DAILY 07/23/23 11/30/23 History D3 10 mcg (400 unit) tablet (Calcium 600 + D(3)) omega-3 fatty acids 1,000 mg 1,000 mg PO DAILY 07/23/23 11/30/23 History capsule fluticasone propionate 50 1 spray intranasal DAILY #16 grams 08/16/23 11/30/23 Rx mcg/actuation nasal spray,suspension (Flonase Allergy Relief) atorvastatin 10 mg tablet (Lipitor) 10 mg PO HS #90 tabs 08/20/23 11/30/23 Rx dimethicone 1.3 % topical cream 1 applic topical DAILY PRN skin 08/25/23 11/30/23 History (Cavilon Durable Barrier) irritation methocarbamol 500 mg tablet 500 mg PO TID PRN muscle spasm #90 09/20/23 11/30/23 Rx tabs ropinirole 0.5 mg tablet 0.5 mg PO UD #90 tabs 09/20/23 11/30/23 Rx tramadol 50 mg tablet 50 mg PO BID PRN Pain #60 tabs 10/29/23 11/30/23 Rx elnzdhogaofj-copvbojd-fgkvfxx-folic 1 tab PO DAILY 10/30/23 11/30/23 History acid 400 mcg-vit K1 20 mcg tablet sertraline 50 mg tablet 50 mg PO DAILY #30 tabs 11/12/23 11/30/23 Rx famotidine 40 mg tablet 40 mg PO BID #60 tabs 11/19/23 11/30/23 Rx psyllium seed (sugar) oral powder See Rx Instructions PO DAILY PRN 11/19/23 11/30/23 Rx (Metamucil (sugar) oral powder) diarrhea #1,254 grams levothyroxine 150 mcg tablet 150 mcg PO QAM 11/27/23 11/30/23 History sevelamer carbonate 800 mg tablet 800 mg PO UD 11/27/23 11/30/23 History Past Med/Surg History Problem List (Updated 11/30/23 @ 11:51 by Satya Reina MD) Fall (Acute) Skin tear of right upper extremity (Acute) Facial droop (Acute) Right sided weakness (Acute) Sacral wound Generalized weakness (Acute) Fall from standing (Acute) ESRD on dialysis (Acute) Ambulatory dysfunction (Acute) Discharge planning issues DVT prophylaxis Pleural effusion CKD (chronic kidney disease) (Acute) Anemia (Acute) Shakiness (Acute) Bilateral edema of lower extremity (Acute) Physical deconditioning ESRD on dialysis (Acute) Ascites Aortic stenosis 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 Palliative care by specialist Pancytopenia Clostridioides difficile carrier Vitamin D deficiency (Chronic) Recurrent urinary tract infection 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 aguirre Osteoarthritis Hyperlipidemia History of CVA (cerebrovascular accident) (2019) ~5years ago, woke up with weakness in her rt hand; L lacunar infarct; previously on plavix>no residual effects Hiatal hernia GERD without esophagitis Fatty liver Essential tremor MINOR IN HAND Diabetic retinopathy Chronic hyponatremia Chronic diastolic heart failure CAD (coronary artery disease) Anxiety Anemia of chronic disease GAVE (gastric antral vascular ectasia) (Acute) Medical History Right wrist pain Generalized weakness Fatigue CKD (chronic kidney disease) CKD (chronic kidney disease) Sepsis Encephalopathy UTI (urinary tract infection) Lower extremity cellulitis Pleural effusion, bilateral Elevated brain natriuretic peptide (BNP) level Elevated troponin I level Pericardial effusion Elevated brain natriuretic peptide (BNP) level Non-ST elevation [place] (NSTEMI) Pancytopenia Hemorrhoids History of recent hospitalization GI BLEED/LOW BLOOD COUNT/HX BLOOD TRANSFUSION - MAY 2022 - [facility] ESRD on hemodialysis tuesdays, , and saturdays currently Poor historian History of GI bleed hx 08/2021, given transfusion-per medical record REASON FOR UPCOMING PROCEDURE Hx of atrial fibrillation, no current medication per medical report History of renal dialysis , AND SAT ([facility]CROSS FROM [facility]) ACCESS SITE RIGHT SIDE OF CHEST/ ? DETAILS Resistant hypertension Diabetes mellitus, type 2 Hearing deficit no hearing aids Urinary urgency Secondary hyperparathyroidism of renal origin First degree AV block Hypertension Hypothyroidism Surgical History History of esophagogastroduodenoscopy (EGD) multiple---last 08/01/2022 @ [facility] 04/06/22 at [facility] with Dr. Mich Pacheco- EGD- Gastric antral vascular ectasia with bleeding, treated with argon plasma coagulation (APC); Few angioectasias in the duodenum, treated with APC S/P pericardiocentesis 08/2021, [facility], w/dr moura Hx of cardiac catheterization 08/2021, [facility] w/Dr. Moura for increased cardiac pressures; no stents History of tooth extraction History of colonoscopy H/O varicose vein ligation S/P trigger finger release S/P knee replacement RT/LEFT History of bladder suspension procedure X 2 S/P carpal tunnel release RT/LEFT History of back surgery (04/2010) X 2 S/P hysterectomy [place] Family History Father Alcohol abuse Heart disease Myocardial infarction Hypertension Sister Pancreatic cancer Diabetes Breast cancer Brother Diabetes Alcohol abuse Stroke Other Cancer No family history of adverse response to anesthesia Denies family history of Ovarian cancer Prostate cancer Colorectal cancer Social History Smoking Status: Former smoker Second Hand Exposure: No; Do You Dip or Chew Tobacco: No; Hx Alcohol Use: No Hx Substance Use: No Preferred Language: Central African Communication Ability: Effective Visual Impairment: No Limitations Hearing Ability: Normal Resourcing Advisor Required: No Beliefs That Will Affect Care: None marital status: Single Current Living Situation: Alone Current Living Situation Comment: 1 story home with ramp to enter home current occupational status: retired How many Children do You have: 2 Feels Safe at Home: Yes Childhood Exposure to Second-Hand Smoke: No Diet: regular Diet Comment: regular caffeine: Yes (Coffee x 2 cups per day.) during the past year weight has: remained stable Dental Care, Regularly: No Physical Activity Frequency: Does not Exercise Seatbelt Use: always Sunscreen Use: Yes Assistive Devices: Walker Results & Data Results & Data Vital Signs (Past 12 Hours) Vital Signs Temp Pulse Pulse Resp BP BP Pulse Ox 11/30/23 13:00 78 16 129/65 94 11/30/23 11:29 84 11/30/23 11:09 11/30/23 11:09 36.7 C 84 22 123/59 L 97 O2 Del Method 11/30/23 13:00 Room Air 11/30/23 11:29 11/30/23 11:09 Room Air 11/30/23 11:09 Room Air PG Care Time/CCT Total # of Minutes Spent Total Time Spent with Patient: Total time spent is greater than 50% in coordination of care (as documented) at patient's floor/unit and/or counseling patient: Coding
[2023-11-30] MEDS: PIPERACILLIN/TAZOBACTAM 4.5 GM/100 ML BAG IV ONE (13:55)
--- NOTE | 2023-11-30 14:12 | History & Physical Report ---
Date of Service November 30, 2023 Assessment & Plan (1) Weakness: Plan: Progressive weakness With worsened right-sided weakness. CT is without acute findings, given right-sided weakness MRI ordered to R/O interval stroke pathology. Due to duration of findings angios were not obtained with CT on admission DDx includes worsening global weakness with underlying UTI, deconditioning, CVA Concern for patient safety at home given multiple falls, and also reports that patient is not taking her medications as directed at home Case management consulted Goals of care Patient does express frustration with her overall medical condition and chronic comorbidities. Endorses DNR/DNI and catastrophe, but notes that the burden of her fatigue and renal disease has been very hard to tolerate lately. In particular she is very fatigued and wonders what that dialysis is worth it, but notes that it still does seem overall worth it and something she would want to continue especially because her most important goal is extending her life for her children. Did offer palliative consultation given patient's expressed concerns, she reports she will think about this. (2) Pressure ulcer: Plan: Pressure ulcer of the sacrum Unstageable. Present on admission Chair cushion, cover with Aquacel, routine wound care. Turn every 2 hours while in bed (3) UTI (urinary tract infection): Plan: UTI Zosyn continued, follow cultures UA infected appearing Patient is not septic on admission (4) ESRD on dialysis: Plan: ESRD on dialysis Volume status acceptable, potassium is not elevated on admission. Chest x-ray cardiomegaly with mild pulmonary edema, unchanged from prior. Small and right pleural effusions redemonstrated. Nephrology consulted, continue Sunday//Sunday dialysis - Chronic anemia Baseline approximately 9, hemoglobin 10.5 without active bleeding on admission. Plan CODE STATUS: DNR/DNI Disposition: M/T until strep pathology is ruled out, then if no ongoing concerns can downgrade to M/S History of Present Illness Primary Care Provider: DO Sully Anderson is an 83-year-old female who presents with progressive weakness and falls, right sided weakness which started 5 days ago and worsened midweek and is much worse in the last day. Patient was recently discharged 11/28/2023 after an admission for knotless fall at home and being found down. She was recommended for rehab at that time however was adamantly against this and ultimately was discharged home. She is an ESRD patient on Sunday dialysis. Has had chronic strength decline, feels her strength on the right side is worsened compared to his normal baseline. Sully seen at the bedside. She reports that she just got out of the hospital, but has continued to feel weak. While at home she has also had frequent urinary urgency with strong burning and feels much more weak than she did at discharge. She notes her strength seems to be much worse in the last 24 hours. Was notified that family has concerns that she is not safe at home and that patient is very very weak. Bedside she denies fever chills or sweats. She does endorse feeling very weak and notes that dialysis completely washes her out. She reports that she does not know if this is worth it anymore due to how weak she has. Discussed that dialysis is an attempt to extend her life, although it is common to have significant fatigue and weakness around the sessions. Did discuss with patient whether or not she thought that this was worth it. She reports that she is thought about stopping medical treatments before, but feels that even though dialysis very hard to tolerate is still worth it trying to extend her life for her children. She feels that ongoing treatment at dialysis remained within her goals of care, but is starting to think about things like palliative care or more comfort oriented options. Offered consultation with palliative for this, patient reports she will think about it. Medical History: Reviewed Medications: Reviewed Surgical History: Reviewed Family history: Reviewed Allergies: Reviewed Social History: Reviewed Code Status: DNRDNI Allergies Allergy/AdvReac Type Severity Reaction Status Date / Time sulfamethoxazole AdvReac Unknown REMOTE Verified 11/27/23 08:06 [From Bactrim] HX/PT NOT SURE REACTION trimethoprim [From Bactrim] AdvReac Unknown REMOTE Verified 11/27/23 08:06 HX/PT NOT SURE REACTION Home Medications Medication Instructions Recorded Confirmed Type cholecalciferol (vitamin D3) 25 2,000 unit PO QAM 05/29/18 11/30/23 History mcg (1,000 unit) capsule (Vitamin D3) cyanocobalamin (vitamin B-12) 1,000 mcg PO QAM 11/12/20 11/30/23 History 1,000 mcg tablet (Vitamin B-12) bethanechol chloride 50 mg tablet 50 mg PO BID #180 tabs 04/19/21 11/30/23 Rx diaper,brief,adult,disposable #150 ea 12/07/21 11/21/23 Rx (Fitted Briefs X-Large) loperamide 2 mg capsule 2 mg PO UD PRN Diarrhea 05/29/22 11/30/23 History estradiol 0.01% (0.1 mg/gram) 1 applic vaginal 3XWK PRN ONLY 05/30/22 11/30/23 History vaginal cream WHEN BURNING nystatin 100,000 unit/gram topical 1 applic topical BID PRN IRRITATION 07/10/22 11/30/23 History powder furosemide 80 mg tablet 80 mg PO BID #180 tabs 05/28/23 11/30/23 Rx pantoprazole 40 mg tablet,delayed 40 mg PO BID #60 tabs 06/27/23 11/30/23 Rx release (Protonix) triamcinolone acetonide 0.5 % 1 applic topical BID PRN skin 07/03/23 11/30/23 Rx topical cream irritation #60 grams calcium acetate 667 mg tablet 667 mg PO UD 07/06/23 11/30/23 History calcium carbonate 600 mg-vitamin 1 tab PO DAILY 07/23/23 11/30/23 History D3 10 mcg (400 unit) tablet (Calcium 600 + D(3)) omega-3 fatty acids 1,000 mg 1,000 mg PO DAILY 07/23/23 11/30/23 History capsule fluticasone propionate 50 1 spray intranasal DAILY #16 grams 08/16/23 11/30/23 Rx mcg/actuation nasal spray,suspension (Flonase Allergy Relief) atorvastatin 10 mg tablet (Lipitor) 10 mg PO HS #90 tabs 08/20/23 11/30/23 Rx dimethicone 1.3 % topical cream 1 applic topical DAILY PRN skin 08/25/23 11/30/23 History (Cavilon Durable Barrier) irritation methocarbamol 500 mg tablet 500 mg PO TID PRN muscle spasm #90 09/20/23 11/30/23 Rx tabs ropinirole 0.5 mg tablet 0.5 mg PO UD #90 tabs 09/20/23 11/30/23 Rx tramadol 50 mg tablet 50 mg PO BID PRN Pain #60 tabs 10/29/23 11/30/23 Rx huyhohzyppxv-tdklbzho-tqugicz-folic 1 tab PO DAILY 10/30/23 11/30/23 History acid 400 mcg-vit K1 20 mcg tablet sertraline 50 mg tablet 50 mg PO DAILY #30 tabs 11/12/23 11/30/23 Rx famotidine 40 mg tablet 40 mg PO BID #60 tabs 11/19/23 11/30/23 Rx psyllium seed (sugar) oral powder See Rx Instructions PO DAILY PRN 11/19/23 11/30/23 Rx (Metamucil (sugar) oral powder) diarrhea #1,254 grams levothyroxine 150 mcg tablet 150 mcg PO QAM 11/27/23 11/30/23 History sevelamer carbonate 800 mg tablet 800 mg PO UD 11/27/23 11/30/23 History Past Med/Surg History Problem List (Updated 11/30/23 @ 14:29 by Soren Sue MD) Pressure ulcer Fall (Acute) Skin tear of right upper extremity (Acute) Facial droop (Acute) Right sided weakness (Acute) Sacral wound Generalized weakness (Acute) Fall from standing (Acute) ESRD on dialysis (Acute) Ambulatory dysfunction (Acute) Discharge planning issues DVT prophylaxis Pleural effusion CKD (chronic kidney disease) (Acute) Anemia (Acute) Shakiness (Acute) Bilateral edema of lower extremity (Acute) Physical deconditioning ESRD on dialysis (Acute) Ascites Aortic stenosis 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 Palliative care by specialist Pancytopenia Clostridioides difficile carrier Vitamin D deficiency (Chronic) Recurrent urinary tract infection 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 aguirre Osteoarthritis Hyperlipidemia History of CVA (cerebrovascular accident) (2019) ~5years ago, woke up with weakness in her rt hand; L lacunar infarct; pr eviously on plavix>no residual effects Hiatal hernia GERD without esophagitis Fatty liver Essential tremor MINOR IN HAND Diabetic retinopathy Chronic hyponatremia Chronic diastolic heart failure CAD (coronary artery disease) Anxiety Anemia of chronic disease GAVE (gastric antral vascular ectasia) (Acute) Medical History Right wrist pain Generalized weakness Fatigue CKD (chronic kidney disease) CKD (chronic kidney disease) Sepsis Encephalopathy UTI (urinary tract infection) Lower extremity cellulitis Pleural effusion, bilateral Elevated brain natriuretic peptide (BNP) level Elevated troponin I level Pericardial effusion Elevated brain natriuretic peptide (BNP) level Non-ST elevation [place] (NSTEMI) Pancytopenia Hemorrhoids History of recent hospitalization GI BLEED/LOW BLOOD COUNT/HX BLOOD TRANSFUSION - MAY 2022 - [facility] ESRD on hemodialysis tuesdays, , and saturdays currently Poor historian History of GI bleed hx 08/2021, given transfusion-per medical record REASON FOR UPCOMING PROCEDURE Hx of atrial fibrillation, no current medication per medical report History of renal dialysis , AND SUN ([facility] [place]/[facility]CROSS FROM [facility]) ACCESS SITE RIGHT SIDE OF CHEST/ ? DETAILS Resistant hypertension Diabetes mellitus, type 2 Hearing deficit no hearing aids Urinary urgency Secondary hyperparathyroidism of renal origin First degree AV block Hypertension Hypothyroidism Surgical History History of esophagogastroduodenoscopy (EGD) multiple---last 08/01/2022 @ [facility] 04/06/22 at [facility] with Dr. Mich Pacheco- EGD- Gastric antral vascular ectasia with bleeding, treated with argon plasma coagulation (APC); Few angioectasias in the duodenum, treated with APC S/P pericardiocentesis 08/2021, [facility], w/dr moura Hx of cardiac catheterization 08/2021, [facility] w/Dr. Moura for increased cardiac pressures; no stents History of tooth extraction History of colonoscopy H/O varicose vein ligation S/P trigger finger release S/P knee replacement RT/LEFT History of bladder suspension procedure X 2 S/P carpal tunnel release RT/LEFT History of back surgery (04/2010) X 2 S/P hysterectomy [place] Family History Father Alcohol abuse Heart disease Myocardial infarction Hypertension Sister Pancreatic cancer Diabetes Breast cancer Brother Diabetes Alcohol abuse Stroke Other Cancer No family history of adverse response to anesthesia Denies family history of Ovarian cancer Prostate cancer Colorectal cancer Social History Smoking Status: Former smoker Second Hand Exposure: No; Do You Dip or Chew Tobacco: No; Hx Alcohol Use: No Hx Substance Use: No Preferred Language: Vietnamese Communication Ability: Effective Visual Impairment: No Limitations Hearing Ability: Normal Pipe Caulker Required: No Beliefs That Will Affect Care: None marital status: Single Current Living Situation: Alone Current Living Situation Comment: 1 story home with ramp to enter home current occupational status: retired How many Children do You have: 2 Feels Safe at Home: Yes Childhood Exposure to Second-Hand Smoke: No Diet: regular Diet Comment: regular caffeine: Yes (Coffee x 2 cups per day.) during the past year weight has: remained stable Dental Care, Regularly: No Physical Activity Frequency: Does not Exercise Seatbelt Use: always Sunscreen Use: Yes Assistive Devices: Walker Physical Exam Physical Exam: General: A&Ox3. NAD. Cooperative. Appears fatigued HEENT: Atraumatic, normocephalic. Right dialysis catheter present, C/D/I without tenderness or erythema Pulm: CTAB A&P. -wheezes, -rales, -rhonchi. Symmetrical chest rise. No increased work of breathing. No respiratory distress. Cardiac: RRR, -mrg. Radial pulses intact and symmetrical. Abdominal: Nontender, nondistended, soft. BS present. Ext: Graphics Software Engineer strength, elbow flexion, ankle dorsiflexion/plantarflexion are with 4+/5 strength bilaterally without asymmetry at time of admitting exam, patient fatigues very easily. Endorses intact sensation to soft touch in hands and feet bilaterally. Right ptosis is present Results & Data Results & Data Vital Signs (Past 12 Hours) Vital Signs Temp Pulse Pulse Resp BP BP Pulse Ox 11/30/23 13:00 78 16 129/65 94 11/30/23 11:29 84 11/30/23 11:09 11/30/23 11:09 36.7 C 84 22 123/59 L 97 O2 Del Method 11/30/23 13:00 Room Air 11/30/23 11:29 11/30/23 11:09 Room Air 11/30/23 11:09 Room Air PG Care Time/CCT Total # of Minutes Spent Total Time Spent with Patient: Total time spent is greater than 50% in coordination of care (as documented) at patient's floor/unit and/or counseling patient: Coding Level of Care Code 90892 INT INP/OBS CARE MIN Diagnoses Weakness R53.1 Pressure ulcer L89.90 UTI (urinary tract infection) N39.0 ESRD on dialysis N18.6; Z99.2
--- NOTE | 2023-11-30 14:25 | XRay Report ---
XR chest 1V portable CLINICAL HISTORY: weak TECHNIQUE: Single frontal radiograph of the chest was obtained. Comparison: Comparison is made to chest radiograph 11/26/2023 FINDINGS: Dual lumen port catheter noted. Posterior fixation hardware is noted in the lower thoracic spine. The cardiomediastinal silhouette is stable. Prominence and cephalization of the vasculature is seen. Lef t greater than right lower lung airspace opacities are seen. Moderate left and small right pleural ef fusion. IMPRESSION: 1. Cardiomegaly with mild pulmonary edema, unchanged. 2. Small right and moderate left pleural effusions with associated atelectasis. ACT 112: Negative or not required by law. Electronically signed by: Isacc Pak M.D. 11/30/2023 2:24 PM
[2023-11-30] MEDS ORDERED: METHOCARBAMOL 500 MG TABLET PO PRN (18:33)
[2023-11-30] MEDS ORDERED: TRIAMCINOLONE ACET 0.5% CR 15 GM TUBE TOP PRN (18:33)
[2023-11-30] MEDS ORDERED: LOPERAMIDE HCL 2 MG CAP PO PRN (18:33)
--- NOTE | 2023-11-30 18:55 | Magnetic Resonance Report ---
MR brain wo con CLINICAL HISTORY: RUE/RLL weakness, CVA r/o TECHNIQUE: Multiplanar and multisequence MR images of the brain were obtained without intravenous con trast. Comparison: Comparison is made to CT head 11/30/2023 FINDINGS: Focal restricted diffusion is in the right cerebellum. There is associated edema. Foci of T2 and FLAI R hyperintensity are noted in the paraventricular areas consistent with chronic small vessel ischemic disease. Ex vacuo ventriculomegaly and sulcal enlargement is noted compatible with diffuse volume lo ss. No mass is seen. There is no mass effect or midline shift. There is no evidence of acute intrapar enchymal hemorrhage. No extra axial fluid collections are seen. The corpus callosum, pituitary gland, and cerebellar tonsils appear grossly unremarkable. Flow voids of the major intracranial arterial vessels are identified. The imaged portions of the para nasal sinuses, mastoid air cells, and orbits are unremarkable. IMPRESSION: Tiny infarct in the right cerebellum. ACT 112: Negative or not required by law. Electronically signed by: Isacc Pak M.D. 11/30/2023 6:54 PM
[2023-11-30] MEDS: rOPINIRole HCL 1 MG TABLET PO SCH (20:12)
[2023-11-30] MEDS: SEVELAMER CARBONATE 800 MG TAB PO SCH (20:13)
[2023-11-30] MEDS: PANTOprazole 40 MG TAB PO SCH (20:13)
[2023-11-30] MEDS: FUROSEMIDE 80 MG TAB PO SCH (20:14)
[2023-11-30] MEDS: ATORVASTATIN 10 MG TAB PO SCH (20:14)
[2023-11-30] MEDS: ACETAMINOPHEN 325 MG TAB PO PRN (20:15)
[2023-11-30] MEDS: FAMOTIDINE 20 MG TAB PO SCH (20:15)
[2023-11-30] MEDS: HEPARIN SOD 5,000 UNIT/0.5 ML VIAL SQ SCH (22:12)
--- NOTE | 2023-11-30 22:36 | Communication Note ---
Date of Service: November 30, 2023 Notified by nursing that patient's MRI results came back with a small cerebellum stroke. Outside of the window for TNKase as symptoms started 5 days ago. Given ASA chew and started on DAPT. Ordered ECHO and carotid US bilaterally. Neurology consult placed. Increased atorvastatin to 40 mg. Ordered lipids and HbA1c. Discussed case with Dr. Beck. Resident Activity Tracking Resident Involvement: Resident Care Provided Care Provided: Adult [facility]
[2023-11-30] MEDS ORDERED: PHARMACIST DISCHARGE MED REC CONSULT PRN (22:37)
--- NOTE | 2023-11-30 23:10 | Electrocardiogram Report ---
Test Reason : Blood Pressure : */* mmHG Vent. Rate : 84 BPM Atrial Rate : 84 BPM P-R Int : 298 ms QRS Dur : 122 ms QT Int : 494 ms P-R-T Axes : 70 -42 -8 degrees QTcB Int : 583 ms Sinus rhythm with 1st degree A-V block Left axis deviation Right bundle branch block Abnormal ECG When compared with ECG of 26-Nov-2023 18:45, QT has lengthened Confirmed by Delvin Sullivan ([id number]) on 11/30/2023 11:10:20 PM Referred By: Confirmed By: Delvin Sullivan
[2023-11-30 23:51] LABS: INR 1.1 (0.9-1.1); Partial Thromboplastin Ratio 1.1; Partial Thromboplastin Time 29 Seconds (21-31); Prothrombin Time 12.2 Seconds (9.0-12.0)
[2023-12-01] MEDS: ASPIRIN 81 MG CHEW PO ONE (01:06)
[2023-12-01] MEDS: ASPIRIN 81 MG CHEW ONE (01:31)
[2023-12-01] MEDS: PIPERACILLIN/TAZOBACTAM 4.5 GM/100 ML BAG IV SCH (02:57)
[2023-12-01] MEDS: LEVOTHYROXINE SODIUM 150 MCG TABLET PO SCH (05:33)
[2023-12-01 07:21] LABS: Basophils # (auto) 0.03 K/uL (0.00-0.20); Basophils % (auto) 0.5 %; Eosinophils # (auto) 0.03 K/uL (0.00-0.50); Eosinophils % (auto) 0.5 %; Hematocrit (blood only) 29.2 % (37.0-47.0); Hemoglobin 8.9 g/dl (12.0-16.0); Immature Granulocytes # (auto) 0.01 K/uL (0.01-0.20); Immature Granulocytes % (auto) 0.2 %; Lymphocytes # (auto) 0.51 K/uL (1.20-3.40); Lymphocytes % (auto) 9.3 %; Mean Corpuscular Hemoglobin 27.7 pg (25.0-34.0); Mean Corpuscular Hgb Conc 30.5 g/dL (32.0-36.0); Mean Platelet Volume 10.8 fL (9.4-12.4); Monocytes # (auto) 0.47 K/uL (0.11-0.59); Monocytes % (auto) 8.6 %; Neutrophils # (auto) 4.44 K/uL (1.40-6.50); Neutrophils % (auto) 80.9 %; Platelet Count 175 K/uL (130-400); RDW Standard Deviation 53.7 fL (36.4-46.3); Red Blood Count 3.21 M/uL (4.20-5.40); White Blood Count 5.49 K/ul (4.8-10.8)
[2023-12-01 07:44] LABS: BUN Creatinine Ratio 11.4 (10-20); Calcium 7.7 mg/dl (8.6-10.3); Chol HDL Ratio 2.9 (0-5); Creatinine Clr Calc Pharmacy 7.1 ml/min; Est GFR (African American) 8.5 ml/min; Est GFR (Non-African American) 7.4 ml/min; Potassium 4.4 mmol/L (3.5-5.1)
--- NOTE | 2023-12-01 08:06 | Ultrasound Report ---
ULTRASOUND OF THE CAROTID ARTERIES CLINICAL HISTORY: Stroke. COMPARISON STUDY: No priors. TECHNIQUE: Real-time, grayscale, and color Doppler sonography of the carotid arteries is performed. I mages are reviewed in the transverse and longitudinal planes. FINDINGS: The carotid arteries are patent bilaterally and demonstrate antegrade flow. There is moderate echogen ic atherosclerotic plaque seen in the carotid bulbs bilaterally. Normal doppler arterial waveforms ar e seen throughout. Velocity measurements are listed below. Common carotid peak systolic velocity (cm/sec): RIGHT: 79 LEFT: 62 ICA proximal peak systolic velocity (cm/sec): RIGHT: 48 LEFT: 72 ICA mid peak systolic velocity (cm/sec): RIGHT: 80 LEFT: 68 ICA distal peak systolic velocity (cm/sec): RIGHT: 58 LEFT: 61 ICA/CC peak systolic ratio: RIGHT: 1.0 LEFT: 0.9 Antegrade flow was shown in the vertebral arteries. The external carotid arteries are patent. IMPRESSION: 1. There is no sonographic evidence of hemodynamically significant stenosis in the right or left clarke tid arterial system. 2. Antegrade flow is shown in the vertebral arteries. ACT 112: Negative or not required by law. Electronically signed by: Eulogio Gaspar M.D. 12/01/2023 8:05 AM
[2023-12-01] MEDS: ATORVASTATIN 40 MG TAB PO SCH (08:49)
[2023-12-01] MEDS: CLOPIDOGREL BISULFATE 75 MG TAB PO SCH (08:50)
[2023-12-01] MEDS: ASPIRIN 81 MG ECTAB PO SCH (08:50)
[2023-12-01] MEDS: CHOLECALCIFEROL 25 MCG (1000 UNITS) TAB PO SCH (08:50)
[2023-12-01] MEDS: SERTRALINE HCL 50 MG TABLET PO SCH (08:51)
[2023-12-01] MEDS: CEROVITE ADV FORMULA TAB PO SCH (08:51)
[2023-12-01] MEDS: OMEGA-3 (PURIFIED FISH OIL) 1 GM CAP PO SCH (08:51)
[2023-12-01] MEDS: rOPINIRole HCL 0.25 MG TABLET PO SCH (08:51)
[2023-12-01 09:34] LABS: Estimated Average Glucose 103 mg/dl; Hemoglobin A1C 5.2 % (4.5-5.6)
--- NOTE | 2023-12-01 10:00 | Neurology Consultation ---
Date of Consultation December 01, 2023 Assessment & Plan (1) Cerebellar stroke: Plan 83-year-old female presenting with an acute to subacute right cerebellar ischemic infarct. She has very mild right hemiataxia on examination. She appears to have a history of type 2 diabetes mellitus although recent hemoglobin A1c normal indicating this condition is controlled, she does not appear to be on any medication for her diabetes. Her lipid panel is normal, with an LDL of 40, total cholesterol of 91. She has been on a low-dose of atorvastatin. Agree with dual antiplatelet therapy for 3 weeks, afterwards will transition to either aspirin 81 mg/day, or clopidogrel 75 mg/day. Patient may continue with the increased dosage of atorvastatin, 40 mg/day. However, her lipid panel was acceptable on the lower dosage, with an LDL of 40, goal LDL 70 or less. It may not be unreasonable to have her go back to the 10 mg atorvastatin dosage after 3 weeks. Her current blood pressure is a bit low, but appropriate. It does not look like she has been prescribed an antihypertensive as an outpatient although has been on furosemide in the context of chronic diastolic heart failure. This medication may be continued as well as her hemodialysis. Nephrology has been consulted. Will check a transthoracic echocardiogram with bubble study. Consultations with PT/OT/speech therapy. Patient should not require additional outpatient neurology follow-up. Please call with any questions. History of Present Illness Reason for Consultation: stroke Requesting Physician: Gracie Attending Physician: Rylee Stanford MD History of Present Illness The patient is an 83-year-old female who presented to the emergency department yesterday with right-sided weakness beginning several days prior. She did have a fall. Her symptoms have been persistent and seem to be of mild severity. She denies headache, change in vision, difficulty swallowing, change in speech, or numbness. An initial CT of the head was negative for hemorrhage or acute process, revealing chronic small vessel ischemic disease. A follow-up brain MRI reveals a small acute ischemic infarct within the right cerebellar hemisphere. I independently reviewed these images. A carotid ultrasound was normal. Past medical history notable for end-stage renal disease on dialysis, sacral decubitus ulcer, coronary artery disease, chronic diastolic heart failure, history of Mobitz type I second-degree atrioventricular block, aortic stenosis. She has been started on dual antiplatelet therapy, her dosage of atorvastatin has been increased to 40 mg/day. She continues to report mild weakness for the right arm and leg this morning. Allergies Allergy/AdvReac Type Severity Reaction Status Date / Time sulfamethoxazole AdvReac Unknown REMOTE Verified 11/27/23 08:06 [From Bactrim] HX/PT NOT SURE REACTION trimethoprim [From Bactrim] AdvReac Unknown REMOTE Verified 11/27/23 08:06 HX/PT NOT SURE REACTION Home Medications Medication Instructions Recorded Confirmed Type cholecalciferol (vitamin D3) 25 2,000 unit PO QAM 05/29/18 11/30/23 History mcg (1,000 unit) capsule (Vitamin D3) cyanocobalamin (vitamin B-12) 1,000 mcg PO QAM 11/12/20 11/30/23 History 1,000 mcg tablet (Vitamin B-12) bethanechol chloride 50 mg tablet 50 mg PO BID #180 tabs 04/19/21 11/30/23 Rx diaper,brief,adult,disposable #150 ea 12/07/21 11/21/23 Rx (Fitted Briefs X-Large) loperamide 2 mg capsule 2 mg PO UD PRN Diarrhea 05/29/22 11/30/23 History estradiol 0.01% (0.1 mg/gram) 1 applic vaginal 3XWK PRN ONLY 05/30/22 11/30/23 History vaginal cream WHEN BURNING nystatin 100,000 unit/gram topical 1 applic topical BID PRN IRRITATION 07/10/22 11/30/23 History powder furosemide 80 mg tablet 80 mg PO BID #180 tabs 05/28/23 11/30/23 Rx pantoprazole 40 mg tablet,delayed 40 mg PO BID #60 tabs 06/27/23 11/30/23 Rx release (Protonix) triamcinolone acetonide 0.5 % 1 applic topical BID PRN skin 07/03/23 11/30/23 Rx topical cream irritation #60 grams calcium acetate 667 mg tablet 667 mg PO UD 07/06/23 11/30/23 History calcium carbonate 600 mg-vitamin 1 tab PO DAILY 07/23/23 11/30/23 History D3 10 mcg (400 unit) tablet (Calcium 600 + D(3)) omega-3 fatty acids 1,000 mg 1,000 mg PO DAILY 07/23/23 11/30/23 History capsule fluticasone propionate 50 1 spray intranasal DAILY #16 grams 08/16/23 11/30/23 Rx mcg/actuation nasal spray,suspension (Flonase Allergy Relief) atorvastatin 10 mg tablet (Lipitor) 10 mg PO HS #90 tabs 08/20/23 11/30/23 Rx dimethicone 1.3 % topical cream 1 applic topical DAILY PRN skin 08/25/23 11/30/23 History (Cavilon Durable Barrier) irritation methocarbamol 500 mg tablet 500 mg PO TID PRN muscle spasm #90 09/20/23 11/30/23 Rx tabs ropinirole 0.5 mg tablet 0.5 mg PO UD #90 tabs 09/20/23 11/30/23 Rx tramadol 50 mg tablet 50 mg PO BID PRN Pain #60 tabs 10/29/23 11/30/23 Rx lgtymgvksihe-whvjaiir-jaidkfq-folic 1 tab PO DAILY 10/30/23 11/30/23 History acid 400 mcg-vit K1 20 mcg tablet sertraline 50 mg tablet 50 mg PO DAILY #30 tabs 11/12/23 11/30/23 Rx famotidine 40 mg tablet 40 mg PO BID #60 tabs 11/19/23 11/30/23 Rx psyllium seed (sugar) oral powder See Rx Instructions PO DAILY PRN 11/19/23 11/30/23 Rx (Metamucil (sugar) oral powder) diarrhea #1,254 grams levothyroxine 150 mcg tablet 150 mcg PO QAM 11/27/23 11/30/23 History sevelamer carbonate 800 mg tablet 800 mg PO UD 11/27/23 11/30/23 History Patient History Medical History Right wrist pain Generalized weakness Fatigue CKD (chronic kidney disease) CKD (chronic kidney disease) Sepsis Encephalopathy UTI (urinary tract infection) Lower extremity cellulitis Pleural effusion, bilateral Elevated brain natriuretic peptide (BNP) level Elevated troponin I level Pericardial effusion Elevated brain natriuretic peptide (BNP) level Non-ST elevation [place] (NSTEMI) Pancytopenia Hemorrhoids History of recent hospitalization GI BLEED/LOW BLOOD COUNT/HX BLOOD TRANSFUSION - MAY 2022 - [facility] ESRD on hemodialysis tuesdays, , and saturdays currently Poor historian History of GI bleed hx 08/2021, given transfusion-per medical record REASON FOR UPCOMING PROCEDURE Hx of atrial fibrillation, no current medication per medical report History of renal dialysis TUES,THUR AND SAT ([facility] [place]CROSS FROM [facility]) ACCESS SITE RIGHT SIDE OF CHEST/ ? DETAILS Resistant hypertension Diabetes mellitus, type 2 Hearing deficit no hearing aids Urinary urgency Secondary hyperparathyroidism of renal origin First degree AV block Hypertension Hypothyroidism Surgical History History of esophagogastroduodenoscopy (EGD) multiple---last 08/01/2022 @ [facility] 04/06/22 at [facility] with Dr. Mich Pacheco- EGD- Gastric antral vascular ectasia with bleeding, treated with argon plasma coagulation (APC); Few angioectasias in the duodenum, treated with APC S/P pericardiocentesis 08/2021, [place], w/dr moura Hx of cardiac catheterization 08/2021, [facility] w/Dr. Moura for increased cardiac pressures; no stents History of tooth extraction History of colonoscopy H/O varicose vein ligation S/P trigger finger release S/P knee replacement RT/LEFT History of bladder suspension procedure X 2 S/P carpal tunnel release RT/LEFT History of back surgery (04/2010) X 2 S/P hysterectomy [place] Family History Father Alcohol abuse Heart disease Myocardial infarction Hypertension Sister Pancreatic cancer Diabetes Breast cancer Brother Diabetes Alcohol abuse Stroke Other Cancer No family history of adverse response to anesthesia Denies family history of Ovarian cancer Prostate cancer Colorectal cancer Social History Smoking Status: Never smoker Second Hand Exposure: No; Do You Dip or Chew Tobacco: No; Hx Alcohol Use: No Hx Substance Use: No Preferred Language: [place]an Communication Ability: Effective Visual Impairment: No Limitations Hearing Ability: Normal 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 Beliefs That Will Affect Care: None marital status: Single Current Living Situation: Alone Current Living Situation Comment: 1 story home with ramp to enter home current occupational status: retired How many Children do You have: 2 Feels Safe at Home: Yes Childhood Exposure to Second-Hand Smoke: No Diet: regular Diet Comment: regular caffeine: Yes (Coffee x 2 cups per day.) during the past year weight has: remained stable Dental Care, Regularly: No Physical Activity Frequency: Does not Exercise Seatbelt Use: always Sunscreen Use: Yes Assistive Devices: Hospital Bed and Walker Review of Systems Constitutional: no fever and no chills Eyes: no blind spots and no diplopia Ear, Nose, Mouth, Throat: + hearing loss Respiratory: no cough and no dyspnea Cardiovascular: no chest pain and no palpitations Gastrointestinal: no nausea and no vomiting Genitourinary: + urinary incontinence Musculoskeletal: no myalgia Integumentary: + sores Neurologic: as per Subjective / HPI, + gait abnormality, + unsteadiness, + localized weakness and + lack of coordination; no headache(s) and no abnormal speech Psychiatric: no depression and no anxiety Hematologic / Lymphatic: no easy bleeding and no easy bruising Exam (Neuro) Constitutional: well developed and + frail appearing; no acute distress Eyes: normal visual phan by confrontation, PERRL and EOM intact bilaterally; no nystagmus Neurologic: Oriented to:: Person and Place; negative Time Memory: Remote Intact; negative Short Term Intact Attention: Span Intact and Concentration Intact Speech Fluency: negative Dysarthria or Dysfluency Speech Aphasia: negative Aphasia Fund of Knowledge: Past History and Vocabulary; negative Current Events Cranial Nerves: Normal II, III, IV, , V, VII, IX, X, XI and XII; Abnorm VIII Motor Strength: Normal Lower Extremities and Normal Upper Extremities Motor Tone: Normal Lower Extremities and Normal Upper Extremities Muscle Bulk/Involuntary Movements: No Involuntary Movements Sensation: Light Touch Intact, Pain/Temperature Intact and Proprioception Intact; negative Vibration Intact Coordination: Dysdiadochokinesia Laterality: Right, Finger- Nose Abnormal Laterality: Right and Heel-Martinez Abnormal Laterality: Right Deep Tendon Reflexes: Rt Triceps: 2+, Lt Triceps: 2+, Rt Biceps: 2+, Lt Biceps: 2+, Rt Brachioradialis: 2+, Lt Brachioradialis: 2+, Rt Patellar: 2+, Lt Patellar: 2+, Rt Ankle: 1+ and Lt Ankle: 1+ Special Tests: negative Babinski Present Results & Data Vital Signs (Past 12 Hours) Vital Signs Temp Pulse Pulse Resp BP BP Pulse Ox 12/01/23 09:24 12/01/23 08:21 36.6 C 68 18 94/64 L 98 12/01/23 07:17 68 12/01/23 03:07 37.2 C 78 18 102/58 L 95 11/30/23 23:15 36.9 C 80 16 121/73 95 11/30/23 21:48 78 O2 Del Method 12/01/23 09:24 Room Air 12/01/23 08:21 12/01/23 07:17 12/01/23 03:07 Room Air 11/30/23 23:15 Room Air 11/30/23 21:48 Laboratory Results WBC 5.49, hemoglobin 8.9, hematocrit 29.2, platelet count 175, sodium 137, potassium 4.4, BUN 57, creatinine 4.98, glucose 151, hemoglobin A1c 5.2, calcium 7.7, triglycerides 99, cholesterol 91, LDL 40, VLDL 20, HDL [address] of the head, brain MRI, and carotid ultrasound are as described in the HPI. An electrocardiogram reveals sinus rhythm with first-degree AV block Coding Level of Care Code 73288 INT INP/OBS CARE MIN Diagnoses Cerebellar stroke I63.9 Time Spent (min) 90 Comment Total time includes patient contact, chart review, counseling, note preparation
--- NOTE | 2023-12-01 10:03 | Nephrology Consultation ---
Date of Consultation December 01, 2023 Assessment & Plan (1) ESRD (end stage renal disease) on dialysis: ESKD due to CRS (severe ). Outpatient HD: [facility] TTS, 3hr, 3K 2.5Ca F-180NR, EDW 60.5 kg. Heparin free HD. R IJ TDC. Orders for HD entered into the EHR and reviewed with RN. Sully was seen and evaluated prior to and during hemodialysis. TDC functioning reasonably well. Qb slightly below goal. Access pressure acceptable. Medications are appropriate for kidney function. Maintain 1.2 L daily fluid restriction. Sevelamer QAC. (2) Anemia of chronic disease: Maintained on Micera 200 Q 2 weeks as outpatient. Hgb 9.1 on November 28. Venofer 100 mg IV with HD today. (3) GAVE (gastric antral vascular ectasia): Hold heparin on HD due to h/o GAVE requiring multiple blood transfusions. (4) Cerebellar stroke: Neurology consultation reviewed. (5) Fall: PT/OT consultation pending. History of Present Illness Reason for Consultation: ESRD HD TuThSa Requesting Physician: Rylee Stanford MD Attending Physician: Rylee Stanford MD History of Present Illness Sully Ray is an 83 year-old female with ESKD attributed to to CRS. She has been on HD since 08/23 and currently dialyzes TTS at [facility] under the care of Dr. Will (3hr, 3K 2.5Ca F-180NR, EDW 60.5 kg). She dialyzes via a RI TDC. Her medical history is significant for severe , mitral stenosis, R heart failure, permanent atrial fibrillation (not on anticoagulation due to GI bleeds), GAVE w/ recurrent UGI bleed requiring frequent blood transfusion, CVA, AODM, hypothyroidism. She has not had any recent complications with her dialysis treatments. EDW has been steadily reduced due to progressive weight loss. She completed her last HD treatment on 11/28 for net UF 2 L. Sully presented to the ER yesterday evening s/p fall at home with weakness and loss of balance. MRI demonstrating a subacute right cerebellar ischemic infarct. Sully reports noticing some subtle weakness in her right arm and relates that she has experienced similar symptoms in the past. Sully was recently admitted to the hospital from November 25- s/p fall at home. She continues to struggle with some pain from the fall and reports stiffness in her back and shoulders. She has known sacral breakdown and home health services. She also receives regular assistance at home from her daughter. Records indicated that Sully expressed frustration with dialysis treatments. She acknowledges progressive weakness and frailty. She would like to maintain her independence and continue to live at home with her cat. She is resistant to the idea of assisted living or SNF placement. I met with Sully prior to dialysis and during HD today. She states that she would like to continue dialysis for her family. She is not ready to stop treatments. TDC is functioning reasonably well. She is breathing comfortably. She denies any fluid retention or edema. She reports a fair appetite. She denies any melena or hematochezia. Allergies Allergy/AdvReac Type Severity Reaction Status Date / Time sulfamethoxazole AdvReac Unknown REMOTE Verified 11/27/23 08:06 [From Bactrim] HX/PT NOT SURE REACTION trimethoprim [From Bactrim] AdvReac Unknown REMOTE Verified 11/27/23 08:06 HX/PT NOT SURE REACTION Home Medications Medication Instructions Recorded Confirmed Type cholecalciferol (vitamin D3) 25 2,000 unit PO QAM 05/29/18 11/30/23 History mcg (1,000 unit) capsule (Vitamin D3) cyanocobalamin (vitamin B-12) 1,000 mcg PO QAM 11/12/20 11/30/23 History 1,000 mcg tablet (Vitamin B-12) bethanechol chloride 50 mg tablet 50 mg PO BID #180 tabs 04/19/21 11/30/23 Rx diaper,brief,adult,disposable #150 ea 12/07/21 11/21/23 Rx (Fitted Briefs X-Large) loperamide 2 mg capsule 2 mg PO UD PRN Diarrhea 05/29/22 11/30/23 History estradiol 0.01% (0.1 mg/gram) 1 applic vaginal 3XWK PRN ONLY 05/30/22 11/30/23 History vaginal cream WHEN BURNING nystatin 100,000 unit/gram topical 1 applic topical BID PRN IRRITATION 07/10/22 11/30/23 History powder furosemide 80 mg tablet 80 mg PO BID #180 tabs 05/28/23 11/30/23 Rx pantoprazole 40 mg tablet,delayed 40 mg PO BID #60 tabs 06/27/23 11/30/23 Rx release (Protonix) triamcinolone acetonide 0.5 % 1 applic topical BID PRN skin 07/03/23 11/30/23 Rx topical cream irritation #60 grams calcium acetate 667 mg tablet 667 mg PO UD 07/06/23 11/30/23 History calcium carbonate 600 mg-vitamin 1 tab PO DAILY 07/23/23 11/30/23 History D3 10 mcg (400 unit) tablet (Calcium 600 + D(3)) omega-3 fatty acids 1,000 mg 1,000 mg PO DAILY 07/23/23 11/30/23 History capsule fluticasone propionate 50 1 spray intranasal DAILY #16 grams 08/16/23 11/30/23 Rx mcg/actuation nasal spray,suspension (Flonase Allergy Relief) atorvastatin 10 mg tablet (Lipitor) 10 mg PO HS #90 tabs 08/20/23 11/30/23 Rx dimethicone 1.3 % topical cream 1 applic topical DAILY PRN skin 08/25/23 4 History (Cavilon Durable Barrier) irritation methocarbamol 500 mg tablet 500 mg PO TID PRN muscle spasm #90 09/20/23 11/30/23 Rx tabs ropinirole 0.5 mg tablet 0.5 mg PO UD #90 tabs 09/20/23 11/30/23 Rx tramadol 50 mg tablet 50 mg PO BID PRN Pain #60 tabs 10/29/23 11/30/23 Rx tgowfbeizize-xufjjygs-djrmkwk-folic 1 tab PO DAILY 10/30/23 11/30/23 History acid 400 mcg-vit K1 20 mcg tablet sertraline 50 mg tablet 50 mg PO DAILY #30 tabs 11/12/23 11/30/23 Rx famotidine 40 mg tablet 40 mg PO BID #60 tabs 11/19/23 11/30/23 Rx psyllium seed (sugar) oral powder See Rx Instructions PO DAILY PRN 11/19/23 11/30/23 Rx (Metamucil (sugar) oral powder) diarrhea #1,254 grams levothyroxine 150 mcg tablet 150 mcg PO QAM 11/27/23 11/30/23 History sevelamer carbonate 800 mg tablet 800 mg PO UD 11/27/23 11/30/23 History Patient History Medical History Right wrist pain Generalized weakness Fatigue CKD (chronic kidney disease) CKD (chronic kidney disease) Sepsis Encephalopathy UTI (urinary tract infection) Lower extremity cellulitis Pleural effusion, bilateral Elevated brain natriuretic peptide (BNP) level Elevated troponin I level Pericardial effusion Elevated brain natriuretic peptide (BNP) level Non-ST elevation CA (NSTEMI) Pancytopenia Hemorrhoids History of recent hospitalization GI BLEED/LOW BLOOD COUNT/HX BLOOD TRANSFUSION - MAY 2022 - [facility] ESRD on hemodialysis tuesdays, , and saturdays currently Poor historian History of GI bleed hx 08/2021, given transfusion-per medical record REASON FOR UPCOMING PROCEDURE Hx of atrial fibrillation, no current medication per medical report History of renal dialysis , AND SAT ([facility] [place]/ACROSS FROM [facility]) ACCESS SITE RIGHT SIDE OF CHEST/ ? DETAILS Resistant hypertension Diabetes mellitus, type 2 Hearing deficit no hearing aids Urinary urgency Secondary hyperparathyroidism of renal origin First degree AV block Hypertension Hypothyroidism Surgical History History of esophagogastroduodenoscopy (EGD) multiple---last 08/01/2022 @ [facility] 04/06/22 at [facility] with Dr. Mich Pacheco- EGD- Gastric antral vascular ectasia with bleeding, treated with argon plasma coagulation (APC); Few angioectasias in the duodenum, treated with APC S/P pericardiocentesis 08/2021, [facility], w/dr moura Hx of cardiac catheterization 08/2021, [facility] w/Dr. Moura for increased cardiac pressures; no stents History of tooth extraction History of colonoscopy H/O varicose vein ligation S/P trigger finger release S/P knee replacement RT/LEFT History of bladder suspension procedure X 2 S/P carpal tunnel release RT/LEFT History of back surgery (04/2010) X 2 S/P hysterectomy [place] Family History Father Alcohol abuse Heart disease Myocardial infarction Hypertension Sister Pancreatic cancer Diabetes Breast cancer Brother Diabetes Alcohol abuse Stroke Other Cancer No family history of adverse response to anesthesia Denies family history of Ovarian cancer Prostate cancer Colorectal cancer Social History Smoking Status: Never smoker Second Hand Exposure: No; Do You Dip or Chew Tobacco: No; Hx Alcohol Use: No Hx Substance Use: No Preferred Language: Guamanian Communication Ability: Effective Visual Impairment: No Limitations Hearing Ability: Normal Flight Inspector Required: No Beliefs That Will Affect Care: None marital status: Single Current Living Situation: Alone Current Living Situation Comment: 1 story home with ramp to enter home current occupational status: retired How many Children do You have: 2 Feels Safe at Home: Yes Childhood Exposure to Second-Hand Smoke: No Diet: regular Diet Comment: regular caffeine: Yes (Coffee x 2 cups per day.) during the past year weight has: remained stable Dental Care, Regularly: No Physical Activity Frequency: Does not Exercise Seatbelt Use: always Sunscreen Use: Yes Assistive Devices: Hospital Bed and Walker Review of Systems Review of Systems: All systems reviewed & are unremarkable except as noted in HPI & below Physical Exam Constitutional: + frail appearing; no acute distress Eyes: + anicteric sclerae; no conjunctival abn ormality ENMT: Mouth: + dry oral mucous membranes Neck: normal visual inspection and trachea midline Respiratory: normal respiratory effort Auscultation: lungs clear to auscultation bilaterally Cardiovascular: Rate/Rhythm: regular rate Heart Sounds: normal S1 and normal S2 Extremities: no edema Musculoskeletal: Extremities: no cyanosis and no clubbing Skin: no jaundice Neurologic: Motor/Sensory: no tremor and no asterixis Psychiatric: Orientation: alert and oriented x 3 Results & Data Vital Signs (Past 12 Hours) Vital Signs Temp Pulse Pulse Pulse Resp BP BP 12/01/23 09:30 69 121/52 L 12/01/23 09:28 69 121/52 L 12/01/23 09:24 12/01/23 09:22 37.1 C 72 12/01/23 08:21 36.6 C 68 18 94/64 L 12/01/23 07:17 68 12/01/23 03:07 37.2 C 78 18 102/58 L 11/30/23 23:15 36.9 C 80 16 BP Pulse Ox O2 Del Method 12/01/23 09:30 12/01/23 09:28 12/01/23 09:24 Room Air 12/01/23 09:22 12/01/23 08:21 98 12/01/23 07:17 12/01/23 03:07 95 Room Air 11/30/23 23:15 121/73 95 Room Air Laboratory Results Laboratory Results - last 24 hr 11/30/23 11/30/23 11/30/23 11:10 22:52 Unknown WBC 8.84 RBC 3.66 L Hgb 10.5 L Hct 32.8 L MCV 89.6 MCH 28.7 MCHC 32.0 RDW Std Deviation 52.4 H RDW Coeff of Irasema 15.9 H Plt Count 219 MPV 10.4 Immature Gran % (Auto) 0.2 Neut % (Auto) 87.4 Lymph % (Auto) 3.8 [place] % (Auto) 8.3 Eos % (Auto) 0.0 Baso % (Auto) 0.3 Neut # (Auto) 7.72 H Lymph # (Auto) 0.34 L [place] # (Auto) 0.73 H Eos # (Auto) 0.00 Baso # (Auto) 0.03 Immature Gran # (Auto) 0.02 PT 12.2 H INR 1.1 APTT 29 PTT Ratio 1.1 Sodium 139 Potassium 3.8 Chloride 100 Carbon Dioxide 28 Anion Gap 11 BUN 42 H Creatinine 4.00 H Est Cr Clr Drug Dosing 8.9 Est GFR ( Amer) 11.1 Est GFR (Non-Af Amer) 9.6 BUN/Creatinine Ratio 10.5 Glucose 180 H Estimat Average Glucose Hemoglobin A1c Calcium 8.4 L Magnesium 2.0 Total Bilirubin 0.6 AST 87 H ALT 37 Alkaline Phosphatase 317 H Total Protein 6.2 Albumin 3.1 L Globulin 3.1 Albumin/Globulin Ratio 1.0 Triglycerides Cholesterol LDL Cholesterol, Calc VLDL Cholesterol, Calc HDL Cholesterol Cholesterol/HDL Ratio Urine Color Dark Yellow Urine Appearance Turbid A Urine pH 6.0 Ur Specific [place] 1.017 Urine Protein 3+ H Urine Glucose (UA) Negative Urine Ketones Negative Urine Blood 3+ H Urine Nitrite Negative Urine Bilirubin Negative Urine Urobilinogen Negative Ur Leukocyte Esterase 3+ H Urine WBC (Auto) >50 H Urine RBC (Auto) >20 H U Hyaline Cast (Auto) 6-10 H U Epithel Cells (Auto) 3-5 H Urine Bacteria (Auto) 4+ H 12/01/23 06:52 WBC 5.49 RBC 3.21 L Hgb 8.9 L Hct 29.2 L MCV 91.0 MCH 27.7 MCHC 30.5 L RDW Std Deviation 53.7 H RDW Coeff of Irasema 16.0 H Plt Count 175 MPV 10.8 Immature Gran % (Auto) 0.2 Neut % (Auto) 80.9 Lymph % (Auto) 9.3 [place] % (Auto) 8.6 Eos % (Auto) 0.5 Baso % (Auto) 0.5 Neut # (Auto) 4.44 Lymph # (Auto) 0.51 L [place] # (Auto) 0.47 Eos # (Auto) 0.03 Baso # (Auto) 0.03 Immature Gran # (Auto) 0.01 PT INR APTT PTT Ratio Sodium 137 Potassium 4.4 Chloride 101 Carbon Dioxide 23 Anion Gap 13 H BUN 57 H Creatinine 4.98 H* D Est Cr Clr Drug Dosing 7.1 Est GFR ( Amer) 8.5 Est GFR (Non-Af Amer) 7.4 BUN/Creatinine Ratio 11.4 Glucose 151 H Estimat Average Glucose 103 Hemoglobin A1c 5.2 Calcium 7.7 L Magnesium Total Bilirubin AST ALT Alkaline Phosphatase Total Protein Albumin Globulin Albumin/Globulin Ratio Triglycerides 99 Cholesterol 91 LDL Cholesterol, Calc 40 VLDL Cholesterol, Calc 20 HDL Cholesterol 31 Cholesterol/HDL Ratio 2.9 Urine Color Urine Appearance Urine pH Ur Specific [place] Urine Protein Urine Glucose (UA) Urine Ketones Urine Blood Urine Nitrite Urine Bilirubin Urine Urobilinogen Ur Leukocyte Esterase Urine WBC (Auto) Urine RBC (Auto) U Hyaline Cast (Auto) U Epithel Cells (Auto) Urine Bacteria (Auto) Diagnostic Findings XR chest 1V portable Comparison: Comparison is made to chest radiograph 11/26/2023 FINDINGS: Dual lumen port catheter noted. Posterior fixation hardware is noted in the lower thoracic spine. The cardiomediastinal silhouette is stable. Prominence and cephalization of the vasculature is seen. Left greater than right lower lung airspace opacities are seen. Moderate left and small right pleural effusion. IMPRESSION: 1. Cardiomegaly with mild pulmonary edema, unchanged. 2. Small right and moderate left pleural effusions with associated atelectasis. PG Care Time/CCT Total # of Minutes Spent Total Time Spent with Patient: Total time spent is greater than 50% in coordination of care (as documented) at patient's floor/unit and/or counseling patient: Coding Level of Care Code 10876 INT INP/OBS CARE MIN Diagnoses ESRD (end stage renal disease) on dialysis N18.6; Z99.2 Anemia of chronic disease D63.8 GAVE (gastric antral vascular ectasia) K31.819 Cerebellar stroke I63.9 Fall W19.XXXA
[2023-12-01] MEDS: IRON SUCROSE 100 MG in SYRINGE 0 ML IV SCH (10:19)
[2023-12-01] MEDS: SEVELAMER CARBONATE 800 MG TAB PO SCH (13:14)
--- NOTE | 2023-12-01 13:37 | Hospitalist Progress Note ---
Date of Service December 01, 2023 Assessment & Plan (1) Weakness: Plan: Patient presented to the ED on 11/29 for for progressive weakness and falls, right sided weakness x [address] negative MRI reviewed 11/30: tiny infarct in right cerebellum. started on DAPT w/ ASA and plavix. statin increased to 40mg PO daily. Neurology consult reviewed 11/30 DAPT x 3 weeks then will transition to either ASA 81mg daily vs Plavix 75mg daily Consider returning to atorvastatin 10mg PO daily after 3 weeks PT/OT/speech therapy consults, Echo Speech therapy recommending easy to chew diet. PT/OT consults pending Echo reviewed 11/30: small left ventricular cavity. Moderate concentric LVH. LVEF > 70%. left ventricle hyperdynamic. near cavity obliteration in systole. Grade II diastolic dysfunction. Left atrium severely dilated. Severe valvular aortic stenosis. Mitral stenosis. Moderate mitral regurgitation. Small pericardial effusion. Moderate size left pleural effusion. Carotid doppler US reviewed 11/30: no sonographic evidence of significant stenosis in right/left carotid arterial system. Antegrade flow in vertebral arteries. CBC reviewed 11/30: hgb decreased to 8.9. per daughter patient has hx of GI bleeding. continue to monitor hemoglobin. BMP reviewed 11/30: creatinine elevated 4.98, BUN 57 - nephrology following for dialysis. Goals of care discussion from 11/29 Patient does express frustration with her overall medical condition and chronic comorbidities. Endorses DNR/DNI and catastrophe, but notes that the burden of her fatigue and renal disease has been very hard to tolerate lately. In particular she is very fatigued and wonders what that dialysis is worth it, but notes that it still does seem overall worth it and something she would want to continue especially because her most important goal is extending her life for her children. Did offer palliative consultation given patient's expressed concerns, she reports she will think about this. AM CBC, BMP (2) Cerebellar stroke: Plan: see plan above (3) UTI (urinary tract infection): Plan: Urinalysis + for UTI Urine culture pending Continue Zosyn (4) ESRD on dialysis: Plan: - Patient has dialysis on Tuesdays, , and Saturdays Volume status acceptable, potassium is not elevated on admission. Chest x-ray cardiomegaly with mild pulmonary edema, unchanged from prior. Small and right pleural effusions redemonstrated. - Chronic anemia Baseline approximately 9, hemoglobin 10.5 without active bleeding on admission. - Nephrology consult reviewed 11/30 1.2L daily fluid restriction Sevelamer AM s/p 100mg IV Venofer w/ HD 11/30 Heparin held for hemodialysis due to hx of GAVE (5) Pressure ulcer: Plan: Pressure ulcer of the sacrum Unstageable. Present on admission Chair cushion, cover with Aquacel, routine wound care. Turn every 2 hours while in bed - Consulted wound nurse (6) Aortic stenosis: Plan: Severe by echo Likely not a good candidate for valve replacement but defer to cardiology- consider inpatient cardiology consultation Plan Chronic medical problems: Paroxysmal atrial fibrillation and flutter-not on AV jolie andrae, not on anticoagulation due to history of GAVE and GI bleeding CAD-with a history of 50% RCA stenosis in July 2008, asymptomatic, continue statin, now on DAPT Hypothyroidism-continue levothyroxine, TSH here acceptable at 4.9 Anemia of chronic kidney disease as well as GAVE Follow CBC Follow CBC especially on dual antiplatelet therapy Was given IV iron by nephrology Restless leg syndrome-continue ropinirole GERD-continue famotidine and Protonix twice daily HFpEF-echo here with preserved EF but with severe aortic stenosis as above Continue Lasix. Blood pressures are well-controlled Volume management mostly with dialysis CODE STATUS: DNR/DNI Disposition: continued inpatient stay DVT prophylaxis: heparin Diet: easy to chew dialysis renal. 1.2L fluid restriction updated daughter at bedside 11/30 Admission and Anticipated Discharge Date Admission Date: November 30, 2023 Supervising Physician Co-Signing Physician Notes PA Supervision Note: I did not personally see or examine the patient today, but I verified all dixon points of STACEY Jim's assessment and plan with the following exceptions/additions: Additional notation made as above Subjective Patient seen and examined this afternoon. Patient tolerated dialysis well today. She reports fatigue afterwards. Patient denied numbness/tingling of extremities. Denied any other complaints. Physical Exam 2 Constitutional: WD/WN, vitals as above Eyes: PERRL, conjunctivae normal, anicteric sclerae Respiratory: normal respiratory effort, lungs clear to auscultation Cardiovascular: RRR, no murmur, no edema Neurologic: PERRL, EOMI, accommodation nl, no face palsy, no dysarthria Psychiatric: A+Ox3, euthymic affect Results & Data Results & Data Vital Signs (Past 12 Hours) Vital Signs Temp Pulse Pulse Pulse Pulse Resp BP 12/01/23 12:46 36.8 C 84 12/01/23 12:15 82 103/53 L 12/01/23 12:00 89 106/53 L 12/01/23 11:42 87 95/53 L 12/01/23 11:30 87 86/55 L 12/01/23 11:00 73 108/58 L 12/01/23 10:30 73 110/52 L 12/01/23 10:00 70 109/56 L 12/01/23 09:30 69 121/52 L 12/01/23 09:28 69 121/52 L 12/01/23 09:24 12/01/23 09:22 37.1 C 72 12/01/23 08:21 36.6 C 68 18 12/01/23 07:17 68 12/01/23 03:07 37.2 C 78 18 BP Pulse Ox O2 Del Method 12/01/23 12:46 110/50 L 12/01/23 12:15 12/01/23 12:00 12/01/23 11:42 12/01/23 11:30 12/01/23 11:00 12/01/23 10:30 12/01/23 10:00 12/01/23 09:30 12/01/23 09:28 12/01/23 09:24 Room Air 12/01/23 09:22 12/01/23 08:21 94/64 L 98 12/01/23 07:17 12/01/23 03:07 102/58 L 95 Room Air Laboratory Results 12/01/23 06:52 12/01/23 06:52 Diagnostic Findings Brain MRI 11/30/23 14:40 MR brain wo con CLINICAL HISTORY: RUE/RLL weakness, CVA r/o TECHNIQUE: Multiplanar and multisequence MR images of the brain were obtained without intravenous contrast. Comparison: Comparison is made to CT head 11/30/2023 FINDINGS: Focal restricted diffusion is in the right cerebellum. There is associated edema. Foci of T2 and FLAIR hyperintensity are noted in the paraventricular areas consistent with chronic small vessel ischemic disease. Ex vacuo ventriculomegaly and sulcal enlargement is noted compatible with diffuse volume loss. No mass is seen. There is no mass effect or midline shift. There is no evidence of acute intraparenchymal hemorrhage. No extra axial fluid collections are seen. The corpus callosum, pituitary gland, and cerebellar tonsils appear grossly unremarkable. Flow voids of the major intracranial arterial vessels are identified. The imaged portions of the paranasal sinuses, mastoid air cells, and orbits are unremarkable. IMPRESSION: Tiny infarct in the right cerebellum. ACT 112: Negative or not required by law. Electronically signed by: Isacc Pak M.D. 11/30/2023 6:54 PM Carotid Doppler Study 12/01/23 00:00 ULTRASOUND OF THE CAROTID ARTERIES CLINICAL HISTORY: Stroke. COMPARISON STUDY: No priors. TECHNIQUE: Real-time, grayscale, and color Doppler sonography of the carotid arteries is performed. Images are reviewed in the transverse and longitudinal planes. FINDINGS: The carotid arteries are patent bilaterally and demonstrate antegrade flow. There is moderate echogenic atherosclerotic plaque seen in the carotid bulbs bilaterally. Normal doppler arterial waveforms are seen throughout. Velocity measurements are listed below. Common carotid peak systolic velocity (cm/sec): RIGHT: 79 LEFT: 62 ICA proximal peak systolic velocity (cm/sec): RIGHT: 48 LEFT: 72 ICA mid peak systolic velocity (cm/sec): RIGHT: 80 LEFT: 68 ICA distal peak systolic velocity (cm/sec): RIGHT: 58 LEFT: 61 ICA/CC peak systolic ratio: RIGHT: 1.0 LEFT: 0.9 Antegrade flow was shown in the vertebral arteries. The external carotid arteries are patent. IMPRESSION: 1. There is no sonographic evidence of hemodynamically significant stenosis in the right or left carotid arterial system. 2. Antegrade flow is shown in the vertebral arteries. ACT 112: Negative or not required by law. Electronically signed by: Eulogio Gaspar M.D. 12/01/2023 8:05 AM PG Care Time/CCT Total # of Minutes Spent Total Time Spent with Patient: Total time spent is greater than 50% in coordination of care (as documented) at patient's floor/unit and/or counseling patient: Coding Level of Care Code 02384 SUB INP/OBS CARE 3/50MIN Diagnoses Weakness R53.1 Cerebellar stroke I63.9 UTI (urinary tract infection) N39.0 ESRD on dialysis N18.6; Z99.2 Pressure injury of sacral region, unstageable L89.150 Pressure injury location: sacral region Pressure injury stage: unstageable Aortic stenosis I35.0 (5) Pressure ulcer Pressure injury location: sacral region Pressure injury stage: unstageable Qualified Code(s): L89.150 - Pressure ulcer of sacral region, unstageable
[2023-12-01] MEDS: traMADol HCL 50 MG TABLET PO PRN (14:11)
[2023-12-02 07:13] LABS: Basophils # (auto) 0.03 K/uL (0.00-0.20); Basophils % (auto) 0.6 %; Eosinophils # (auto) 0.09 K/uL (0.00-0.50); Eosinophils % (auto) 1.7 %; Hematocrit (blood only) 27.2 % (37.0-47.0); Hemoglobin 8.7 g/dl (12.0-16.0); Immature Granulocytes # (auto) 0.02 K/uL (0.01-0.20); Immature Granulocytes % (auto) 0.4 %; Lymphocytes # (auto) 0.37 K/uL (1.20-3.40); Lymphocytes % (auto) 7.1 %; Mean Corpuscular Hemoglobin 28.3 pg (25.0-34.0); Mean Corpuscular Volume 88.6 fL (80.0-100.0); Mean Platelet Volume 11.2 fL (9.4-12.4); Monocytes # (auto) 0.45 K/uL (0.11-0.59); Monocytes % (auto) 8.6 %; Neutrophils # (auto) 4.25 K/uL (1.40-6.50); Neutrophils % (auto) 81.6 %; Platelet Count 175 K/uL (130-400); RDW Coefficient of Variation 16.1 % (11.5-14.5); RDW Standard Deviation 52.2 fL (36.4-46.3); Red Blood Count 3.07 M/uL (4.20-5.40); White Blood Count 5.21 K/ul (4.8-10.8)
[2023-12-02 07:27] LABS: BUN Creatinine Ratio 11.1 (10-20); Calcium 7.6 mg/dl (8.6-10.3); Creatinine Clr Calc Pharmacy 9.4 ml/min; Est GFR (African American) 11.9 ml/min; Est GFR (Non-African American) 10.3 ml/min
--- NOTE | 2023-12-02 11:05 | Nephrology Progress Note ---
Date of Service December 02, 2023 Assessment & Plan (1) ESRD (end stage renal disease) on dialysis: Plan: ESKD due to CRS (severe ). Outpatient HD: [facility], 3hr, 3K 2.5Ca F-180NR, EDW 60.5 kg. Heparin free HD. Completed treatment yesterday with adequate UF (2 L) and clearance. Electrolytes normal. TDC functioning reasonably well. Medications are appropriate for kidney function. Maintain 1.2 L daily fluid restriction. Sevelamer QAC. (2) Anemia of chronic disease: Plan: Maintained on Micera 200 Q 2 weeks as outpatient. Hgb stable. Venofer 100 mg IV with HD yesterday. (3) GAVE (gastric antral vascular ectasia): Plan: No heparin with HD due to h/o GAVE requiring multiple blood transfusions. (4) Cerebellar stroke: Plan: PT/OT pending. Admission and Anticipated Discharge Date Admission Date: November 30, 2023 Subjective No acute events overnight. Sully was sleeping in her bedside recliner this AM. She ate very little for breakfast and reports no appetite. She tolerated dialysis reasonably well yesterday. Hemodialysis is exhausting for her. She states that she feels very tired today. She denies dyspnea. Review of Systems Review of Systems: All systems reviewed & are unremarkable except as noted in HPI & below Physical Exam Constitutional: + frail appearing; no acute distress Eyes: + anicteric sclerae ENMT: Mouth: + dry oral mucous membranes Neck: normal visual inspection and trachea midline Respiratory: normal respiratory effort Auscultation: lungs clear to auscultation bilaterally Cardiovascular: Rate/Rhythm: regular rate Heart Sounds: normal S1 and normal S2 Extremities: no edema Musculoskeletal: Extremities: no cyanosis and no clubbing Skin: no jaundice Neurologic: Motor/Sensory: no tremor and no asterixis Psychiatric: Orientation: alert and oriented x 3 Results & Data Vital Signs (Past 12 Hours) Vital Signs Temp Pulse Pulse Resp BP Pulse Ox O2 Del Method 12/02/23 09:55 Room Air 12/02/23 07:45 37.0 C 76 18 117/68 98 Room Air 12/02/23 03:42 37.1 C 72 16 94/57 L 96 Room Air 12/01/23 23:33 37 C 72 16 99/56 L 97 Room Air Laboratory Results Laboratory Results - last 24 hr 12/02/23 06:39 WBC 5.21 RBC 3.07 L Hgb 8.7 L Hct 27.2 L MCV 88.6 MCH 28.3 MCHC 32.0 RDW Std Deviation 52.2 H RDW Coeff of Irasema 16.1 H Plt Count 175 MPV 11.2 Immature Gran % (Auto) 0.4 Neut % (Auto) 81.6 Lymph % (Auto) 7.1 [place] % (Auto) 8.6 Eos % (Auto) 1.7 Baso % (Auto) 0.6 Neut # (Auto) 4.25 Lymph # (Auto) 0.37 L [place] # (Auto) 0.45 Eos # (Auto) 0.09 Baso # (Auto) 0.03 Immature Gran # (Auto) 0.02 Sodium 136 Potassium 4.0 Chloride 99 Carbon Dioxide 27 Anion Gap 10 BUN 42 H Creatinine 3.79 H D Est Cr Clr Drug Dosing 9.4 Est GFR ( Amer) 11.9 Est GFR (Non-Af Amer) 10.3 BUN/Creatinine Ratio 11.1 Glucose 147 H Calcium 7.6 L PG Care Time/CCT Total # of Minutes Spent Total Time Spent with Patient: Total time spent is greater than 50% in coordination of care (as documented) at patient's floor/unit and/or counseling patient: Coding Level of Care Code 40243 SUB INP/OBS CARE 3/50MIN Diagnoses ESRD (end stage renal disease) on dialysis N18.6; Z99.2 Anemia of chronic disease D63.8 GAVE (gastric antral vascular ectasia) K31.819 Cerebellar stroke I63.9
--- NOTE | 2023-12-02 11:05 | Hospitalist Progress Note ---
Date of Service December 02, 2023 Assessment & Plan (1) Cerebellar stroke: Plan: Patient presented to the ED on 11/29 for for progressive weakness and falls, right sided weakness x [address] negative MRI reviewed 11/30: tiny infarct in right cerebellum. started on DAPT w/ ASA and plavix. statin increased to 40mg PO daily. Neurology consult reviewed 11/30 DAPT x 3 weeks then will transition to either ASA 81mg daily vs Plavix 75mg daily Consider returning to atorvastatin 10mg PO daily after 3 weeks PT/OT/speech therapy consults, Echo Speech therapy recommending easy to chew diet. PT/OT consults reviewed 12/01 - recommending rehab Echo reviewed 11/30: small left ventricular cavity. Moderate concentric LVH. LVEF > 70%. left ventricle hyperdynamic. near cavity obliteration in systole. Grade II diastolic dysfunction. Left atrium severely dilated. Severe valvular aortic stenosis. Mitral stenosis. Moderate mitral regurgitation. Small pericardial effusion. Moderate size left pleural effusion. Carotid doppler US reviewed 11/30: no sonographic evidence of significant stenosis in right/left carotid arterial system. Antegrade flow in vertebral arteries. AM CBC, BMP (2) UTI (urinary tract infection): Plan: Urinalysis + for UTI Urine culture + for lactobacillus given culture results, will discontinue Zosyn. (3) ESRD on dialysis: Plan: - Patient has dialysis on Tuesdays, , and Saturdays Volume status acceptable, potassium is not elevated on admission. Chest x-ray cardiomegaly with mild pulmonary edema, unchanged from prior. Small and right pleural effusions redemonstrated. - Chronic anemia Baseline approximately 9, hemoglobin 10.5 without active bleeding on admission. - Nephrology consult reviewed 11/30 1.2L daily fluid restriction Sevelamer AM s/p 100mg IV Venofer w/ HD 11/30 Heparin held for hemodialysis due to hx of GAVE BMP reviewed 12/01: creatinine elevated 3.79, BUN 42 - nephrology following for dialysis. (4) Pressure ulcer: Plan: Pressure ulcer of the sacrum Unstageable. Present on admission Chair cushion, cover with Aquacel, routine wound care. Turn every 2 hours while in bed - Consulted wound nurse (5) Anemia: Plan: Anemia of chronic kidney disease as well as GAVE Follow CBC especially on dual antiplatelet therapy Was given IV iron by nephrology 11/30 Hemoccult positive, no overt GI bleeding CBC reviewed 12/01: hgb decreased to 8.7. (6) Aortic stenosis: Plan: Severe by echo Likely not a good candidate for valve replacement but defer to cardiology- consider inpatient cardiology consultation (7) Diarrhea: Plan: Patient started w/ episodes of diarrhea 12/01. Per nursing stool has been loose and brown in color. antibiotic discontinued GI panel, C diff, fecal occult positive Plan Chronic medical problems: Paroxysmal atrial fibrillation and flutter-not on AV jolie andrae, not on anticoagulation due to history of GAVE and GI bleeding CAD-with a history of 50% RCA stenosis in July 2008, asymptomatic, continue statin, now on DAPT Hypothyroidism-continue levothyroxine, TSH here acceptable at 4.9 Restless leg syndrome-continue ropinirole GERD-continue famotidine and Protonix twice daily HFpEF-echo here with preserved EF but with severe aortic stenosis as above Continue Lasix. Blood pressures are well-controlled Volume management mostly with dialysis CODE STATUS: DNR/DNI Disposition: continued inpatient stay DVT prophylaxis: heparin Diet: easy to chew dialysis renal. 1.2L fluid restriction updated daughter at bedside 12/01 Goals of care discussion from 11/29 Patient does express frustration with her overall medical condition and chronic comorbidities. Endorses DNR/DNI and catastrophe, but notes that the burden of her fatigue and renal disease has been very hard to tolerate lately. In particular she is very fatigued and wonders what that dialysis is worth it, but notes that it still does seem overall worth it and something she would want to continue especially because her most important goal is extending her life for her children. Did offer palliative consultation given patient's expressed concerns, she reports she will think about this. Goals of care discussion from 12/01 - discussed palliative care options with daughter at bedside. Daughter and patient are going to have a private conversation regarding this matter. Daughter is aware that we have a palliative senior wind energy consultant. She is to let me know of their decision moving forward 12/02. Admission and Anticipated Discharge Date Admission Date: November 30, 2023 Supervising Physician Co-Signing Physician Notes STACEY Supervision Note: I did not personally see or examine the patient today, but I verified all dixon points of STACEY Jim's assessment and plan with the following exceptions/additions: Additional notation made as above Subjective Patient seen and examined this morning. Patient was sitting in her chair at time of encounter, eating breakfast. Patient stated that she was tired. Denied any further complaints. Patient re-evaluated this afternoon with daughter at bedside. Patient has had several loose BM's per nursing staff. Nurse denied any overt signs of GI bleeding (melena/hematochezia). Stated it is brown in color. Discussed w/ daughter palliative care. Patient and daughter are to have a private conversation regarding this and will let me know their answer likely tomorrow. Physical Exam 2 Constitutional: WD/WN, vitals as above Eyes: PERRL, conjunctivae normal, anicteric sclerae Respiratory: normal respiratory effort, lungs clear to auscultation Cardiovascular: RRR, no murmur, no edema Neurologic: PERRL, EOMI, accommodation nl, no face palsy, no dysarthria Psychiatric: A+Ox3, euthymic affect Results & Data Results & Data Vital Signs (Past 12 Hours) Vital Signs Temp Pulse Pulse Resp BP Pulse Ox O2 Del Method 12/02/23 09:55 Room Air 12/02/23 07:45 37.0 C 76 18 117/68 98 Room Air 12/02/23 03:42 37.1 C 72 16 94/57 L 96 Room Air 12/01/23 23:33 37 C 72 16 99/56 L 97 Room Air Laboratory Results 12/02/23 06:39 12/02/23 06:39 CBC, BMP reviewed PG Care Time/CCT Total # of Minutes Spent Total Time Spent with Patient: Total time spent is greater than 50% in coordination of care (as documented) at patient's floor/unit and/or counseling patient: Coding Level of Care Code 56146 SUB INP/OBS CARE 3/50MIN Diagnoses Cerebellar stroke I63.9 UTI (urinary tract infection) N39.0 ESRD on dialysis N18.6; Z99.2 Pressure injury of sacral region, unstageable L89.150 Pressure injury location: sacral region Pressure injury stage: unstageable Anemia D64.9 Aortic valve stenosis, etiology of cardiac valve disease unspecified I35.0 Cardiac valve disease etiology: etiology unspecified Diarrhea R19.7 (4) Pressure ulcer Pressure injury location: sacral region Pressure injury stage: unstageable Qualified Code(s): L89.150 - Pressure ulcer of sacral region, unstageable (6) Aortic stenosis Cardiac valve disease etiology: etiology unspecified Qualified Code(s): I35.0 - Nonrheumatic aortic (valve) stenosis
[2023-12-02 16:50] LABS: Adenovirus F 40/41 PCR Not Detected (NotDetected); Astrovirus PCR Not Detected (NotDetected); Campylobacter PCR Not Detected (NotDetected); Cryptosporidium PCR Not Detected (NotDetected); Cyclospora cayetanensis PCR Not Detected (NotDetected); Entamoeba histolytica PCR Not Detected (NotDetected); Enteroaggregative E.coli(EAEC) Not Detected (NotDetected); Enteropathogenic E.coli (EPEC) Not Detected (NotDetected); Enterotoxigenic E.coli (ETEC) Not Detected (NotDetected); Giardia lamblia PCR Not Detected (NotDetected); Norovirus GI/GII PCR Not Detected (NotDetected); Plesiomonas shigelloides PCR Not Detected (NotDetected); Rotavirus A PCR Not Detected (NotDetected); Salmonella PCR Not Detected (NotDetected); Sapovirus PCR Not Detected (NotDetected); Shiga-like Toxin E.coli (STEC) Not Detected (NotDetected); Shigella/Enteroinvasive E.coli Not Detected (NotDetected); Vibrio cholerae PCR Not Detected (NotDetected); Vibrio species PCR Not Detected (NotDetected); Yersinia enterocolitica PCR Not Detected (NotDetected)
[2023-12-02 17:41] LABS: Hematocrit (blood only) 28.8 % (37.0-47.0); Hemoglobin 8.8 g/dl (12.0-16.0); Mean Corpuscular Hemoglobin 27.9 pg (25.0-34.0); Mean Corpuscular Hgb Conc 30.6 g/dL (32.0-36.0); Mean Corpuscular Volume 91.4 fL (80.0-100.0); Platelet Count 174 K/uL (130-400); RDW Coefficient of Variation 15.9 % (11.5-14.5); RDW Standard Deviation 53.3 fL (36.4-46.3); Red Blood Count 3.15 M/uL (4.20-5.40); White Blood Count 6.46 K/ul (4.8-10.8)
[2023-12-02 23:49] LABS: Cdiff Toxin B Gene (2yr or >) Positive Cdiff Gene (Neg)
[2023-12-02 23:50] LABS: Cdiff Toxin A+B Negative Cdiff Toxin (Negative)
[2023-12-02 23:51] LABS: Cdiff Antigen Positive
[2023-12-02] MEDS ORDERED: LOPERAMIDE HCL 2 MG CAP PO PRN (23:58)
[2023-12-03] MEDS: PSYLLIUM or GUAR GUM FIBER 4GM PACKET PO PRN (00:17)
[2023-12-03 06:11] LABS: Basophils # (auto) 0.03 K/uL (0.00-0.20); Basophils % (auto) 0.5 %; Eosinophils % (auto) 1.8 %; Hematocrit (blood only) 28.5 % (37.0-47.0); Hemoglobin 8.8 g/dl (12.0-16.0); Immature Granulocytes # (auto) 0.03 K/uL (0.01-0.20); Immature Granulocytes % (auto) 0.5 %; Lymphocytes # (auto) 0.43 K/uL (1.20-3.40); Lymphocytes % (auto) 7.6 %; Mean Corpuscular Hemoglobin 27.6 pg (25.0-34.0); Mean Corpuscular Hgb Conc 30.9 g/dL (32.0-36.0); Mean Corpuscular Volume 89.3 fL (80.0-100.0); Mean Platelet Volume 11.1 fL (9.4-12.4); Monocytes # (auto) 0.47 K/uL (0.11-0.59); Monocytes % (auto) 8.3 %; Neutrophils # (auto) 4.59 K/uL (1.40-6.50); Neutrophils % (auto) 81.3 %; Platelet Count 184 K/uL (130-400); RDW Coefficient of Variation 15.7 % (11.5-14.5); RDW Standard Deviation 51.5 fL (36.4-46.3); Red Blood Count 3.19 M/uL (4.20-5.40); White Blood Count 5.65 K/ul (4.8-10.8)
[2023-12-03 06:36] LABS: BUN Creatinine Ratio 12.3 (10-20); Calcium 7.6 mg/dl (8.6-10.3); Creatinine Clr Calc Pharmacy 7.4 ml/min; Est GFR (African American) 8.9 ml/min; Est GFR (Non-African American) 7.7 ml/min; Potassium 3.9 mmol/L (3.5-5.1)
--- NOTE | 2023-12-03 07:54 | Electrocardiogram Report ---
Test Reason : Blood Pressure : */* mmHG Vent. Rate : 78 BPM Atrial Rate : 78 BPM P-R Int : 298 ms QRS Dur : 132 ms QT Int : 430 ms P-R-T Axes : 67 -33 -6 degrees QTcB Int : 490 ms Sinus rhythm with 1st degree A-V block Left axis deviation Right bundle branch block Abnormal ECG When compared with ECG of 30-Nov-2023 10:59, T wave inversion more evident in Anterior leads QT has shortened Confirmed by Yolanda Martin ([place]) on 12/03/2023 7:53:36 AM Referred By: REFERRED SELF Confirmed By: Yolanda Martin
--- NOTE | 2023-12-03 10:12 | Nephrology Progress Note ---
Date of Service December 03, 2023 Assessment & Plan (1) ESRD (end stage renal disease) on dialysis: Plan: ESKD due to CRS (severe ). Outpatient HD: [facility], 3hr, 3K 2.5Ca F-180NR, EDW 60.5 kg. Heparin free HD. Next HD planned for tomorrow. Volume status acceptable. Electrolytes controlled. TDC functioning reasonably well. Medications are appropriate for kidney function. Maintain 1.2 L daily fluid restriction. Sevelamer QAC. (2) Anemia of chronic disease: Plan: Maintained on Micera 200 Q 2 weeks as outpatient. Check H/H prior to next HD treatment. (3) GAVE (gastric antral vascular ectasia): Plan: No heparin with HD due to h/o GAVE requiring multiple blood transfusions. (4) Cerebellar stroke: Admission and Anticipated Discharge Date Admission Date: November 30, 2023 Subjective No acute events overnight. No complaints this AM. Sully was resting comfortably in bed. Review of Systems Review of Systems: All systems reviewed & are unremarkable except as noted in HPI & below Physical Exam Constitutional: + frail appearing; no acute distress Eyes: + anicteric sclerae; no conjunctival abn ormality ENMT: Mouth: + dry oral mucous membranes Neck: normal visual inspection and trachea midline Respiratory: normal respiratory effort Auscultation: lungs clear to auscultation bilaterally Cardiovascular: Rate/Rhythm: regular rate Heart Sounds: normal S1 and normal S2 Extremities: no edema Musculoskeletal: Extremities: no cyanosis and no clubbing Skin: no jaundice Neurologic: Motor/Sensory: no tremor and no asterixis Psychiatric: Orientation: alert and oriented x 3 Results & Data Vital Signs (Past 12 Hours) Vital Signs Temp Pulse Pulse Pulse Resp BP Pulse Ox 12/03/23 10:06 81 12/03/23 08:15 36.9 C 78 16 131/66 94 12/03/23 03:20 37.0 C 76 16 132/71 95 12/02/23 22:27 36.7 C 79 16 131/76 97 O2 Del Method 12/03/23 10:06 12/03/23 08:15 Room Air 12/03/23 03:20 Room Air 12/02/23 22:27 Room Air Laboratory Results Laboratory Results - last 24 hr 12/02/23 12/02/23 12/03/23 15:15 17:19 05:23 WBC 6.46 5.65 RBC 3.15 L 3.19 L Hgb 8.8 L 8.8 L Hct 28.8 L 28.5 L MCV 91.4 89.3 MCH 27.9 27.6 MCHC 30.6 L 30.9 L RDW Std Deviation 53.3 H 51.5 H RDW Coeff of Irasema 15.9 H 15.7 H Plt Count 174 184 MPV 11.0 11.1 Immature Gran % (Auto) 0.5 Neut % (Auto) 81.3 Lymph % (Auto) 7.6 [place] % (Auto) 8.3 Eos % (Auto) 1.8 Baso % (Auto) 0.5 Neut # (Auto) 4.59 Lymph # (Auto) 0.43 L [place] # (Auto) 0.47 Eos # (Auto) 0.10 Baso # (Auto) 0.03 Immature Gran # (Auto) 0.03 Sodium 134 L Potassium 3.9 Chloride 98 Carbon Dioxide 23 Anion Gap 13 H BUN 59 H Creatinine 4.80 H* D Est Cr Clr Drug Dosing 7.4 Est GFR ( Amer) 8.9 Est GFR (Non-Af Amer) 7.7 BUN/Creatinine Ratio 12.3 Glucose 120 H Calcium 7.6 L Stool Occult Bld Scrn Positive A Stl C. cayetanensis PCR Not Detected Stool Rotavirus A PCR Not Detected Stl Adenov F 40/41 PCR Not Detected Stool Astrovirus (PCR) Not Detected Stool Campylobacter PCR Not Detected Stl C. diff Tox B Gene Positive Cdiff Gene H Stl C.difficile Tox A&B Negative Cdiff Toxin Stool Cryptosporidium PCR Not Detected Stl E.coli Shiga Tox PCR Not Detected Stl Enterotoxigenic E PCR Not Detected Stool EPEC (PCR) Not Detected Stool EAEC (PCR) Not Detected Stl E. histolytica PCR Not Detected Stool Giardia Lamblia PCR Not Detected Stool Salmonella PCR Not Detected Stool Sapovirus (PCR) Not Detected Stl P. shigelloides PCR Not Detected Stl Shigella/EIEC PCR Not Detected St Y.enterocolitica PCR Not Detected Stool Vibrio (PCR) Not Detected Stl Vibrio cholerae PCR Not Detected Stl Norovirus GI/GII PCR Not Detected PG Care Time/CCT Total # of Minutes Spent Total Time Spent with Patient: Total time spent is greater than 50% in coordination of care (as documented) at patient's floor/unit and/or counseling patient: Coding Level of Care Code 32553 SUB INP/OBS CARE MIN Diagnoses ESRD (end stage renal disease) on dialysis N18.6; Z99.2 Anemia of chronic disease D63.8 GAVE (gastric antral vascular ectasia) K31.819 Cerebellar stroke I63.9
--- NOTE | 2023-12-03 11:59 | Pharmacy Report ---
- Date of Service December 03, 2023 - Pharmacy CVA/TIA Medication Review Medications to Prevent Stroke handout has been added to the patients discharge packet. Antiplatelet(s) * DAPT for 3 weeks, afterwards will transition to either aspirin 81 mg/day, or clopidogrel 75 mg/day. Cholesterol * High intensity statin: atorvastatin 40 mg daily DVT Prophylaxis * Heparin SQ Therapeutic Anticoagulation * No history of Afib/Aflutter noted Type 2 Diabetes * Patient has had hx of T2DM, A1c 5.2% on no medications
[2023-12-03] MEDS ORDERED: CHERRY SYRUP 5 ML UDP PO SCH (12:00)
--- NOTE | 2023-12-03 12:51 | Hospitalist Progress Note ---
Date of Service December 03, 2023 Assessment & Plan (1) Cerebellar stroke: Plan: Patient presented to the ED on 11/29 for for progressive weakness and falls, right sided weakness x [address] negative MRI reviewed 11/30: tiny infarct in right cerebellum. started on DAPT w/ ASA and plavix. statin increased to 40mg PO daily. Neurology consult reviewed 11/30 DAPT x 3 weeks then will transition to either ASA 81mg daily vs Plavix 75mg daily Consider returning to atorvastatin 10mg PO daily after 3 weeks PT/OT/speech therapy consults, Echo Speech therapy recommending easy to chew diet. PT/OT consults reviewed 12/01 - recommending rehab Echo reviewed 11/30: small left ventricular cavity. Moderate concentric LVH. LVEF > 70%. left ventricle hyperdynamic. near cavity obliteration in systole. Grade II diastolic dysfunction. Left atrium severely dilated. Severe valvular aortic stenosis. Mitral stenosis. Moderate mitral regurgitation. Small pericardial effusion. Moderate size left pleural effusion. Carotid doppler US reviewed 11/30: no sonographic evidence of significant stenosis in right/left carotid arterial system. Antegrade flow in vertebral arteries. AM CBC, BMP (2) UTI (urinary tract infection): Plan: Urinalysis + for UTI Urine culture + for lactobacillus given culture results, will discontinue Zosyn. (3) ESRD on dialysis: Plan: - Patient has dialysis on Tuesdays, , and Saturdays Volume status acceptable, potassium is not elevated on admission. Chest x-ray cardiomegaly with mild pulmonary edema, unchanged from prior. Small and right pleural effusions redemonstrated. - Chronic anemia Baseline approximately 9, hemoglobin 10.5 without active bleeding on admission. - Nephrology consult reviewed 11/30 1.2L daily fluid restriction Sevelamer AM s/p 100mg IV Venofer w/ HD 11/30 Heparin held for hemodialysis due to hx of GAVE BMP reviewed 12/02: creatinine elevated 4.80, BUN 59 - nephrology following for dialysis. (4) Pressure ulcer: Plan: Pressure ulcer of the sacrum Unstageable. Present on admission Chair cushion, cover with Aquacel, routine wound care. Turn every 2 hours while in bed - Consulted wound nurse who recommending considering a surgical consult -spoke w/ pt and daughter 12/02 who would like to move forward w/ supportive care and monitoring. Per daughter patient is planning to follow up with wound clinic upon discharge (5) Anemia: Plan: Anemia of chronic kidney disease as well as GAVE Follow CBC especially on dual antiplatelet therapy Was given IV iron by nephrology 11/30 Hemoccult positive, no overt GI bleeding CBC reviewed 12/02: hgb stable (6) Aortic stenosis: Plan: Severe by echo Likely not a good candidate for valve replacement but defer to cardiology- consider inpatient cardiology consultation (7) Diarrhea: Plan: Patient started w/ episodes of diarrhea 12/01. Per nursing stool has been loose and brown in color. Zosyn discontinued GI panel negative C diff toxin negative, Gene positive Given severity of diarrhea, started vancomycin QID 12/02 x 10 days Plan Chronic medical problems: Paroxysmal atrial fibrillation and flutter-not on AV jolie andrae, not on anticoagulation due to history of GAVE and GI bleeding CAD-with a history of 50% RCA stenosis in July 2008, asymptomatic, continue statin, now on DAPT Hypothyroidism-continue levothyroxine, TSH here acceptable at 4.9 Restless leg syndrome-continue ropinirole GERD-continue famotidine and Protonix twice daily HFpEF-echo here with preserved EF but with severe aortic stenosis as above Continue Lasix. Blood pressures are well-controlled Volume management mostly with dialysis CODE STATUS: DNR/DNI Disposition: continued inpatient stay DVT prophylaxis: heparin Diet: easy to chew dialysis renal. 1.2L fluid restriction updated daughter at bedside 12/02 Goals of care discussion from 11/29 Patient does express frustration with her overall medical condition and chronic comorbidities. Endorses DNR/DNI and catastrophe, but notes that the burden of her fatigue and renal disease has been very hard to tolerate lately. In particular she is very fatigued and wonders what that dialysis is worth it, but notes that it still does seem overall worth it and something she would want to continue especially because her most important goal is extending her life for her children. Did offer palliative consultation given patient's expressed concerns, she reports she will think about this. Goals of care discussion from 12/01 - discussed palliative care options with daughter at bedside. Daughter and patient are going to have a private conversation regarding this matter. Daughter is aware that we have a palliative sap [employer] consultant. She is to let me know of their decision moving forward 12/02. Goals of care discussion from 12/02 - patient would like to move forward with rehab. Will discuss with case management further on 12/03. Patient medically stable for discharge. Admission and Anticipated Discharge Date Admission Date: November 30, 2023 Supervising Physician Co-Signing Physician Notes PA Supervision Note: I did not personally see or examine the patient today, but I verified all dixon points of STACEY Jim's assessment and plan with the following exceptions/additions: Additional notation made as above Subjective Patient seen and examined this morning and afternoon. Patient was resting comfortably in her chair on both encounters. Reports fatigue but denies any additional complaints. Patient would like to move forward with rehab. Patient stated that since receiving vancomycin she has noticed her diarrhea has slowed down Physical Exam 2 Constitutional: WD/WN, vitals as above Eyes: PERRL, conjunctivae normal, anicteric sclerae Respiratory: normal respiratory effort, lungs clear to auscultation Cardiovascular: RRR, no murmur, no edema Neurologic: PERRL, EOMI, accommodation nl, no face palsy, no dysarthria Psychiatric: A+Ox3, euthymic affect Results & Data Results & Data Vital Signs (Past 12 Hours) Vital Signs Temp Pulse Pulse Pulse Resp BP Pulse Ox 12/03/23 11:19 12/03/23 10:06 81 12/03/23 08:15 36.9 C 78 16 131/66 94 12/03/23 03:20 37.0 C 76 16 132/71 95 O2 Del Method 12/03/23 11:19 Room Air 12/03/23 10:06 12/03/23 08:15 Room Air 12/03/23 03:20 Room Air Laboratory Results 12/03/23 05:23 12/03/23 05:23 PG Care Time/CCT Total # of Minutes Spent Total Time Spent with Patient: Total time spent is greater than 50% in coordination of care (as documented) at patient's floor/unit and/or counseling patient: Coding Level of Care Code 61739 SUB INP/OBS CARE 2/35MIN Diagnoses Cerebellar stroke I63.9 UTI (urinary tract infection) N39.0 ESRD on dialysis N18.6; Z99.2 Pressure injury of sacral region, unstageable L89.150 Pressure injury location: sacral region Pressure injury stage: unstageable Anemia due to chronic kidney disease, on chronic dialysis N18.6; D63.1; Z99.2 Anemia type: due to chronic kidney disease Chronic kidney disease stage: on chronic dialysis Aortic valve stenosis, etiology of cardiac valve disease unspecified I35.0 Cardiac valve disease etiology: etiology unspecified Diarrhea R19.7 (4) Pressure ulcer Pressure injury location: sacral region Pressure injury stage: unstageable Qualified Code(s): L89.150 - Pressure ulcer of sacral region, unstageable (5) Anemia Anemia type: due to chronic kidney disease Chronic kidney disease stage: on chronic dialysis Qualified Code(s): N18.6 - End stage renal disease; D63.1 - Anemia in chronic kidney disease; Z99.2 - Dependence on renal dialysis (6) Aortic stenosis Cardiac valve disease etiology: etiology unspecified Qualified Code(s): I35.0 - Nonrheumatic aortic (valve) stenosis
[2023-12-03] MEDS: VANCOMYCIN HCL 125 MG/2.5ML SOLN PO SCH (13:05)
[2023-12-03] MEDS: CHERRY SYRUP 5 ML UDP PO SCH (13:05)
[2023-12-04 06:06] LABS: Hematocrit (blood only) 28.1 % (37.0-47.0); Hemoglobin 8.9 g/dl (12.0-16.0)
[2023-12-04 06:25] LABS: BUN Creatinine Ratio 14.1 (10-20); Calcium 7.5 mg/dl (8.6-10.3); Creatinine Clr Calc Pharmacy 6.4 ml/min; Est GFR (African American) 7.5 ml/min; Est GFR (Non-African American) 6.5 ml/min; Potassium 3.9 mmol/L (3.5-5.1)
--- NOTE | 2023-12-04 09:53 | Nephrology Progress Note ---
Date of Service December 04, 2023 Assessment & Plan (1) ESRD (end stage renal disease) on dialysis: Plan: ESKD due to CRS (severe ). Outpatient HD: [facility], 3hr, 3K 2.5Ca F-180NR, EDW 60.5 kg. Heparin free HD. Orders for HD today were entered into the EHR and reviewed with the route supervisor. Sully was seen and evaluated during treatment. TDC functioning reasonably well. Medications are appropriate for kidney function. Maintain 1.2 L daily fluid restriction. Sevelamer QAC. (2) Anemia of chronic disease: Plan: Maintained on Micera 200 Q 2 weeks as outpatient. Epogen 39412 units with HD today. (3) GAVE (gastric antral vascular ectasia): Plan: No heparin with HD due to h/o GAVE requiring multiple blood transfusions. (4) Cerebellar stroke: Admission and Anticipated Discharge Date Admission Date: November 30, 2023 Subjective No acute events overnight. Sully was seen and evaluated prior to and during hemodialysis. She spoke with her daughter yesterday and plans to try rehab at [facility]. She would like to continue dialysis treatments as Rx. She was receptive of HD today. Orders for treatment were entered into the EHR and reviewed with the route supervisor. Appetite slightly improved this AM. Diarrhea improved. Review of Systems Review of Systems: All systems reviewed & are unremarkable except as noted in HPI & below Physical Exam Constitutional: + frail appearing; no acute distress Eyes: + anicteric sclerae; no conjunctival abn ormality ENMT: Mouth: + dry oral mucous membranes Neck: normal visual inspection and trachea midline Respiratory: normal respiratory effort Auscultation: lungs clear to auscultation bilaterally Cardiovascular: Rate/Rhythm: regular rate Heart Sounds: normal S1 and normal S2 Extremities: no edema Musculoskeletal: Extremities: no cyanosis and no clubbing Skin: no jaundice Neurologic: Motor/Sensory: no tremor and no asterixis Psychiatric: Orientation: alert and oriented x 3 Results & Data Vital Signs (Past 12 Hours) Vital Signs Temp Pulse Resp BP Pulse Ox O2 Del Method 12/04/23 08:23 36.6 C 68 17 112/63 97 Room Air 12/03/23 23:00 36.7 C 82 18 117/67 98 Room Air Laboratory Results Laboratory Results - last 24 hr 12/03/23 12/04/23 Unknown 05:30 Hgb 8.9 L Hct 28.1 L Sodium 136 Potassium 3.9 Chloride 100 Carbon Dioxide 23 Anion Gap 13 H BUN 78 H Creatinine 5.54 H* D Est Cr Clr Drug Dosing 6.4 Est GFR ( Amer) 7.5 Est GFR (Non-Af Amer) 6.5 BUN/Creatinine Ratio 14.1 Glucose 144 H Calcium 7.5 L Nasal Screen MRSA (PCR) Negative PG Care Time/CCT Total # of Minutes Spent Total Time Spent with Patient: Total time spent is greater than 50% in coordination of care (as documented) at patient's floor/unit and/or counseling patient: Coding Level of Care Code 61045 SUB INP/OBS CARE 3/50MIN Diagnoses ESRD (end stage renal disease) on dialysis N18.6; Z99.2 Anemia of chronic disease D63.8 GAVE (gastric antral vascular ectasia) K31.819 Cerebellar stroke I63.9
[2023-12-04] MEDS: EPOETIN ALFA 20,000 UNITS/ML VIAL IV ONE (11:29)
--- NOTE | 2023-12-04 13:20 | Hospitalist Progress Note ---
Date of Service December 04, 2023 Assessment & Plan (1) Cerebellar stroke: Plan: Patient presented to the ED on 11/29 for for progressive weakness and falls, right sided weakness x [address] negative MRI reviewed 11/30: tiny infarct in right cerebellum. started on DAPT w/ ASA and plavix. statin increased to 40mg PO daily. Neurology consult reviewed 11/30 DAPT x 3 weeks then will transition to either ASA 81mg daily vs Plavix 75mg daily Consider returning to atorvastatin 10mg PO daily after 3 weeks PT/OT/speech therapy consults, Echo Speech therapy recommending easy to chew diet. PT/OT consults reviewed 12/01 - recommending rehab Echo reviewed 11/30: small left ventricular cavity. Moderate concentric LVH. LVEF > 70%. left ventricle hyperdynamic. near cavity obliteration in systole. Grade II diastolic dysfunction. Left atrium severely dilated. Severe valvular aortic stenosis. Mitral stenosis. Moderate mitral regurgitation. Small pericardial effusion. Moderate size left pleural effusion. Carotid doppler US reviewed 11/30: no sonographic evidence of significant stenosis in right/left carotid arterial system. Antegrade flow in vertebral arteries. (2) UTI (urinary tract infection): Plan: Urinalysis + for UTI Urine culture + for lactobacillus given culture results, will discontinue Zosyn. (3) ESRD on dialysis: Plan: - Patient has dialysis on Tuesdays, , and Saturdays Volume status acceptable, potassium is not elevated on admission. Chest x-ray cardiomegaly with mild pulmonary edema, unchanged from prior. Small and right pleural effusions redemonstrated. - Chronic anemia Baseline approximately 9, hemoglobin 10.5 without active bleeding on admission. - Nephrology consult reviewed 11/30 1.2L daily fluid restriction Sevelamer AM s/p 100mg IV Venofer w/ HD 11/30 Heparin held for hemodialysis due to hx of GAVE BMP reviewed 12/03: creatinine elevated 5.54, BUN 78 - nephrology following for dialysis. (4) Pressure ulcer: Plan: Pressure ulcer of the sacrum Unstageable. Present on admission Chair cushion, cover with Aquacel, routine wound care. Turn every 2 hours while in bed - Consulted wound nurse who recommending considering a surgical consult -spoke w/ pt and daughter 12/02 who would like to move forward w/ supportive care and monitoring. Per daughter patient is planning to follow up with wound clinic upon discharge (5) Anemia: Plan: Anemia of chronic kidney disease as well as GAVE Follow CBC especially on dual antiplatelet therapy Was given IV iron by nephrology 11/30 s/p Epogen w/ Dialysis 12/03 Hemoccult positive, no overt GI bleeding H & H reviewed 12/03: hgb stable at 8.9 (6) Aortic stenosis: Plan: Severe by echo Likely not a good candidate for valve replacement but defer to cardiology- consider inpatient cardiology consultation (7) Diarrhea: Plan: Patient started w/ episodes of diarrhea 12/01. Per nursing stool has been loose and brown in color. Zosyn discontinued GI panel negative C diff toxin negative, Gene positive Given severity of diarrhea, started vancomycin QID 12/02 x 10 days Added Fiber supplement daily 12/03 Plan Chronic medical problems: Paroxysmal atrial fibrillation and flutter-not on AV jolie andrae, not on anticoagulation due to history of GAVE and GI bleeding CAD-with a history of 50% RCA stenosis in July 2008, asymptomatic, continue statin, now on DAPT Hypothyroidism-continue levothyroxine, TSH here acceptable at 4.9 Restless leg syndrome-continue ropinirole GERD-continue famotidine and Protonix twice daily HFpEF-echo here with preserved EF but with severe aortic stenosis as above Continue Lasix. Blood pressures are well-controlled Volume management mostly with dialysis Goals of care discussion w/ patient and daughter over course of hospitalization involved options including rehab vs palliative care. Patient would like continue dialysis and go to rehab with the hopes of returning home. Set to go to [facility] per CM CODE STATUS: DNR/DNI Disposition: discharge to [facility] 12/04 DVT prophylaxis: heparin Diet: easy to chew dialysis renal. 1.2L fluid restriction updated daughter at bedside 12/02 Admission and Anticipated Discharge Date Admission Date: November 30, 2023 Subjective Patient seen and examined this afternoon following dialysis. Patient reports episodes of diarrhea today. she states her buttock is sore from the amount of diarrhea she has been having. She thinks the fiber helped her when she received it previously. Physical Exam 2 Constitutional: WD/WN, vitals as above Eyes: PERRL, conjunctivae normal, anicteric sclerae Respiratory: normal respiratory effort, lungs clear to auscultation Cardiovascular: RRR, no murmur, no edema Neurologic: PERRL, EOMI, accommodation nl, no face palsy, no dysarthria Psychiatric: A+Ox3, euthymic affect Results & Data Results & Data Vital Signs (Past 12 Hours) Vital Signs Temp Pulse Pulse Pulse Resp BP BP 12/04/23 11:00 70 119/82 12/04/23 10:30 83 118/53 L 12/04/23 10:00 82 114/58 L 12/04/23 09:30 79 123/62 12/04/23 08:55 36.5 C 82 12/04/23 08:23 36.6 C 68 17 112/63 Pulse Ox O2 Del Method 12/04/23 11:00 12/04/23 10:30 12/04/23 10:00 12/04/23 09:30 12/04/23 08:55 12/04/23 08:23 97 Room Air Laboratory Results 12/04/23 05:30 12/04/23 05:30 PG Care Time/CCT Total # of Minutes Spent Total Time Spent with Patient: Total time spent is greater than 50% in coordination of care (as documented) at patient's floor/unit and/or counseling patient: Coding Level of Care Code 26402 SUB INP/OBS CARE 235MIN Diagnoses Cerebellar stroke I63.9 UTI (urinary tract infection) N39.0 ESRD on dialysis N18.6; Z99.2 Pressure injury of sacral region, unstageable L89.150 Pressure injury location: sacral region Pressure injury stage: unstageable Anemia due to chronic kidney disease, on chronic dialysis N18.6; D63.1; Z99.2 Anemia type: due to chronic kidney disease Chronic kidney disease stage: on chronic dialysis Aortic valve stenosis, etiology of cardiac valve disease unspecified I35.0 Cardiac valve disease etiology: etiology unspecified Diarrhea R19.7 (4) Pressure ulcer Pressure injury location: sacral region Pressure injury stage: unstageable Qualified Code(s): L89.150 - Pressure ulcer of sacral region, unstageable (5) Anemia Anemia type: due to chronic kidney disease Chronic kidney disease stage: on chronic dialysis Qualified Code(s): N18.6 - End stage renal disease; D63.1 - Anemia in chronic kidney disease; Z99.2 - Dependence on renal dialysis (6) Aortic stenosis Cardiac valve disease etiology: etiology unspecified Qualified Code(s): I35.0 - Nonrheumatic aortic (valve) stenosis
[2023-12-04] MEDS: PSYLLIUM or GUAR GUM FIBER 4GM PACKET PO SCH (16:35)
[2023-12-05] VITALS: RESP 18
[2023-12-05 07:39] VITALS: BP 122/72; PULSE 87; TEMP 97.9; O2SAT 98
[2023-12-05 10:07] LABS: Hep B Surface Ag with confirm Negative (Negative)
[2023-12-05 10:16] LABS: Hepatitis B Surface Antibody Immune
--- NOTE | 2023-12-05 10:33 | Hospitalist Progress Note ---
Date of Service December 05, 2023 Assessment & Plan (1) Cerebellar stroke: Plan: Patient presented to the ED on 11/29 for for progressive weakness and falls, right sided weakness x [address] negative MRI reviewed 11/30: tiny infarct in right cerebellum. started on DAPT w/ ASA and plavix. statin increased to 40mg PO daily. Neurology consult reviewed 11/30 DAPT x 3 weeks then will transition to either ASA 81mg daily vs Plavix 75mg daily Consider returning to atorvastatin 10mg PO daily after 3 weeks PT/OT/speech therapy consults, Echo Speech therapy recommending easy to chew diet. PT/OT consults reviewed 12/01 - recommending rehab Echo reviewed 11/30: small left ventricular cavity. Moderate concentric LVH. LVEF > 70%. left ventricle hyperdynamic. near cavity obliteration in systole. Grade II diastolic dysfunction. Left atrium severely dilated. Severe valvular aortic stenosis. Mitral stenosis. Moderate mitral regurgitation. Small pericardial effusion. Moderate size left pleural effusion. Carotid doppler US reviewed 11/30: no sonographic evidence of significant stenosis in right/left carotid arterial system. Antegrade flow in vertebral arteries. (2) UTI (urinary tract infection): Plan: Urinalysis + for UTI Urine culture + for lactobacillus given culture results, will discontinue Zosyn. (3) ESRD on dialysis: Plan: - Patient has dialysis on Tuesdays, , and Saturdays Volume status acceptable, potassium is not elevated on admission. Chest x-ray cardiomegaly with mild pulmonary edema, unchanged from prior. Small and right pleural effusions redemonstrated. - Chronic anemia Baseline approximately 9, hemoglobin 10.5 without active bleeding on admission. - Nephrology consult reviewed 11/30 1.2L daily fluid restriction Sevelamer AM s/p 100mg IV Venofer w/ HD 11/30 Heparin held for hemodialysis due to hx of GAVE BMP reviewed 12/03: creatinine elevated 5.54, BUN 78 - nephrology following for dialysis. (4) Pressure ulcer: Plan: Pressure ulcer of the sacrum Unstageable. Present on admission Chair cushion, cover with Aquacel, routine wound care. Turn every 2 hours while in bed - Consulted wound nurse who recommending considering a surgical consult -spoke w/ pt and daughter 12/02 who would like to move forward w/ supportive care and monitoring. Per daughter patient is planning to follow up with wound clinic upon discharge (5) Anemia: Plan: Anemia of chronic kidney disease as well as GAVE Follow CBC especially on dual antiplatelet therapy Was given IV iron by nephrology 11/30 s/p Epogen w/ Dialysis 12/03 Hemoccult positive, no overt GI bleeding H & H reviewed 12/03: hgb stable at 8.9 (6) Aortic stenosis: Plan: Severe by echo Likely not a good candidate for valve replacement but defer to cardiology- consider inpatient cardiology consultation (7) Diarrhea: Plan: Patient started w/ episodes of diarrhea 12/01. Per nursing stool has been loose and brown in color. Zosyn discontinued GI panel negative C diff toxin negative, Gene positive Given severity of diarrhea, started vancomycin QID 12/02 x 10 days Added Fiber supplement daily 12/03 Plan Chronic medical problems: Paroxysmal atrial fibrillation and flutter-not on AV jolie andrae, not on anticoagulation due to history of GAVE and GI bleeding CAD-with a history of 50% RCA stenosis in July 2008, asymptomatic, continue statin, now on DAPT Hypothyroidism-continue levothyroxine, TSH here acceptable at 4.9 Restless leg syndrome-continue ropinirole GERD-continue famotidine and Protonix twice daily HFpEF-echo here with preserved EF but with severe aortic stenosis as above Continue Lasix. Blood pressures are well-controlled Volume management mostly with dialysis Goals of care discussion w/ patient and daughter over course of hospitalization involved options including rehab vs palliative care. Patient would like continue dialysis and go to rehab with the hopes of returning home. Set to go to [facility]/2 per CM CODE STATUS: DNR/DNI Disposition: discharge to [facility] 12/04 DVT prophylaxis: heparin Diet: easy to chew dialysis renal. 1.2L fluid restriction updated daughter at bedside 12/02 Admission and Anticipated Discharge Date Admission Date: November 30, 2023 Results & Data Results & Data Vital Signs (Past 12 Hours) Vital Signs Temp Pulse Resp BP Pulse Ox O2 Del Method 12/05/23 08:00 Room Air 12/05/23 07:38 36.6 C 87 18 122/72 98 Room Air 12/04/23 23:59 37 C 84 18 108/63 96 Room Air PG Care Time/CCT Total # of Minutes Spent Total Time Spent with Patient: Total time spent is greater than 50% in coordination of care (as documented) at patient's floor/unit and/or counseling patient: Coding Diagnoses Cerebellar stroke I63.9 UTI (urinary tract infection) N39.0 ESRD on dialysis N18.6; Z99.2 Pressure injury of sacral region, unstageable L89.150 Pressure injury location: sacral region Pressure injury stage: unstageable Anemia due to chronic kidney disease, on chronic dialysis N18.6; D63.1; Z99.2 Anemia type: due to chronic kidney disease Chronic kidney disease stage: on chronic dialysis Aortic valve stenosis, etiology of cardiac valve disease unspecified I35.0 Cardiac valve disease etiology: etiology unspecified Diarrhea R19.7 (4) Pressure ulcer Pressure injury location: sacral region Pressure injury stage: unstageable Qualified Code(s): L89.150 - Pressure ulcer of sacral region, unstageable (5) Anemia Anemia type: due to chronic kidney disease Chronic kidney disease stage: on chronic dialysis Qualified Code(s): N18.6 - End stage renal disease; D63.1 - Anemia in chronic kidney disease; Z99.2 - Dependence on renal dialysis (6) Aortic stenosis Cardiac valve disease etiology: etiology unspecified Qualified Code(s): I35.0 - Nonrheumatic aortic (valve) stenosis
--- NOTE | 2023-12-05 10:42 | Nephrology Progress Note ---
Date of Service December 05, 2023 Assessment & Plan (1) ESRD (end stage renal disease) on dialysis: Plan: ESKD due to CRS (severe ). Outpatient HD: [facility], 3hr, 3K 2.5Ca F-180NR, EDW 60.5 kg. Heparin free HD. Completed HD yesterday with adequate UF and clearance. TDC functioning reasonably well. Medications are appropriate for kidney function. Maintain 1.2 L daily fluid restriction. Sevelamer QAC. Anticipated discharge to [facility] today. [facility] will continue to follow at [facility]. (2) Anemia of chronic disease: Plan: Maintained on Micera 200 Q 2 weeks as outpatient. Epogen 49067 units with HD yesterday. (3) GAVE (gastric antral vascular ectasia): Plan: No heparin with HD due to h/o GAVE requiring multiple blood transfusions. (4) Cerebellar stroke: Admission and Anticipated Discharge Date Admission Date: November 30, 2023 Subjective No acute events overnight. Completed HD yesterday without complications. Review of Systems Review of Systems: All systems reviewed & are unremarkable except as noted in HPI & below Physical Exam Constitutional: + frail appearing; no acute distress Eyes: + anicteric sclerae; no conjunctival abn ormality ENMT: Mouth: + dry oral mucous membranes Neck: normal visual inspection and trachea midline Respiratory: normal respiratory effort Auscultation: lungs clear to auscultation bilaterally Cardiovascular: Rate/Rhythm: regular rate Heart Sounds: normal S1 and normal S2 Extremities: no edema Musculoskeletal: Extremities: no cyanosis and no clubbing Skin: no jaundice Neurologic: Motor/Sensory: no tremor and no asterixis Psychiatric: Orientation: alert and oriented x 3 Results & Data Vital Signs (Past 12 Hours) Vital Signs Temp Pulse Resp BP Pulse Ox O2 Del Method 12/05/23 08:00 Room Air 12/05/23 07:38 36.6 C 87 18 122/72 98 Room Air 12/04/23 23:59 37 C 84 18 108/63 96 Room Air Laboratory Results Laboratory Results - last 24 hr 12/04/23 14:47 Hep Bs Antigen Negative Hep Bs Antibody Immune Hep Bs Antibody, Quant 38.60 Hep B Core IgM Ab Pending PG Care Time/CCT Total # of Minutes Spent Total Time Spent with Patient: Total time spent is greater than 50% in coordination of care (as documented) at patient's floor/unit and/or counseling patient: Coding Level of Care Code 37723 SUB INP/OBS CARE MIN Diagnoses ESRD (end stage renal disease) on dialysis N18.6; Z99.2 Anemia of chronic disease D63.8 GAVE (gastric antral vascular ectasia) K31.819 Cerebellar stroke I63.9
--- NOTE | 2023-12-05 12:29 | Discharge Summary ---
Discharge Summary Date of Service December 05, 2023 Principal Dx & Hospital Course #1 = Principal Diagnosis (1) Cerebellar stroke: Patient presented to the ED on 11/29 for progressive weakness, falls, right-sided weakness x [address] negative MRI reviewed 11/30: Tiny infarct in the right cerebellum Started on DAPT with aspirin and Plavix Statin increased to 40 mg p.o. daily Neurology consulted 11/30, recommendations below DAPT x 3 weeks and will transition to either aspirin 81 mg daily versus Plavix 75 mg daily Consider returning to atorvastatin 10 mg p.o. daily after 3 weeks PT, OT, speech therapy consults, echo Speech therapy recommending easy to chew diet PT OT consults recommending rehab, [facility]30: Small left ventricular cavity. Moderate concentric left ventricular hypertrophy, left ventricular ejection fraction greater than 70%. Left ventricle hyperdynamic. Near cavity obliteration in systole. Grade 2 diastolic dysfunction. Left atrium severely dilated. Severe valvular aortic stenosis. Mitral stenosis. Moderate mitral regurgitation. Small pericardial effusion. Moderate size left pleural effusion Carotid Doppler ultrasound 11/30: No sonographic evidence of significant stenosis in the right or left carotid arterial system. Antegrade flow in vertebral arteries (2) UTI (urinary tract infection): Urinalysis + for UTI Urine culture + for lactobacillus given increasing amounts of diarrhea and culture results, zosyn was discontinued. (3) ESRD on dialysis: Dialysis on Sunday, , Saturdays Volume status acceptable. Potassium not elevated on admission. CXR - cardiomegaly w/ mild pulmonary edema, unchanged from prior. small right pleural effusion Chronic anemia baseline 9 Nephrology followed along for dialysis - plan to continue following on discharge 1.2L daily fluid restriction Sevelamer daily IV venofer 11/30 (4) Pressure ulcer: Unstageable. present on admission Per daughter, they were not interested in surgery consult after wound nurse evaluated patient on 12/02. Recommend following up with [facility] as patient was previously a patient there. Chair cushion, cover w/ Aquacel, routine wound care. (5) Anemia: anemia of chronic kidney disease + hx of GAVE IV iron 11/30 Epogen 12/03 Hemoccult +, no overt signs GI bleeding hemoglobin remained stable around 8.8-9.0 (6) Aortic stenosis: severe by echo. Likely not good candidate for valve replacement. follow up outpatient cardiology. - established with Dr. Agudelo (7) Diarrhea: Diarrhea started 12/01 GI panel negative C diff toxin negative, gene positive Vancomycin QID started 12/02 Daily fiber supplement added 12/03 Plan Chronic conditions: Paroxysmal atrial fibrillation and flutter-not on AV jolie andrae, not on anticoagulation due to history of GAVE and GI bleeding CAD-with a history of 50% RCA stenosis in July 2008, asymptomatic, continue statin, now on DAPT Hypothyroidism-continue levothyroxine, TSH here acceptable at 4.9 Restless leg syndrome-continue ropinirole GERD-continue famotidine and Protonix twice daily HFpEF-echo here with preserved EF but with severe aortic stenosis as above Continue Lasix. Blood pressures are well-controlled Volume management mostly with dialysis Goals of care discussion w/ patient and daughter over course of hospitalization involved options including rehab vs palliative care. Patient would like continue dialysis and go to rehab with the hopes of returning home. Discharged to [facility] Admission HPI Per Admitting Provider Sully is an 83-year-old female who presents with progressive weakness and falls, right sided weakness which started 5 days ago and worsened midweek and is much worse in the last day. Patient was recently discharged 11/28/2023 after an admission for knotless fall at home and being found down. She was recommended for rehab at that time however was adamantly against this and ultimately was discharged home. She is an ESRD patient on Sunday dialysis. Has had chronic strength decline, feels her strength on the right side is worsened compared to his normal baseline. Sully seen at the bedside. She reports that she just got out of the hospital, but has continued to feel weak. While at home she has also had frequent urinary urgency with strong burning and feels much more weak than she did at discharge. She notes her strength seems to be much worse in the last 24 hours. Was notified that family has concerns that she is not safe at home and that patient is very very weak. Bedside she denies fever chills or sweats. She does endorse feeling very weak and notes that dialysis completely washes her out. She reports that she does not know if this is worth it anymore due to how weak she has. Discussed that dialysis is an attempt to extend her life, although it is common to have significant fatigue and weakness around the sessions. Did discuss with patient whether or not she thought that this was worth it. She reports that she is thought about stopping medical treatments before, but feels that even though dialysis very hard to tolerate is still worth it trying to extend her life for her children. She feels that ongoing treatment at dialysis remained within her goals of care, but is starting to think about things like palliative care or more comfort oriented options. Offered consultation with palliative for this, patient reports she will think about it. Medical History: Reviewed Medications: Reviewed Surgical History: Reviewed Family history: Reviewed Allergies: Reviewed Social History: Reviewed Code Status: DNRDNI Discharge Exam Constitutional WD/WN, vitals as above Eyes PERRL, conjunctivae normal, anicteric sclerae Respiratory normal respiratory effort, lungs clear to auscultation Cardiovascular RRR, no murmur, no edema Neurologic PERRL, EOMI, accommodation nl, no face palsy, no dysarthria Psychiatric A+Ox3, euthymic affect Discharge Plan Discharge Items Patient Disposition: Transfer Inpatient Rehab Fac Reason For Visit: UTI WEAKNESS Discharge Diagnosis: Cerebellar stroke Activity: Resume your previous activity Non-emergency contact: Primary Care Provider Call non-emergency contact if: you have any medication questions and your symptoms worsen Follow-up/Referrals: Agatha Alfaro DO [Primary Care Provider] - (within 1-2 weeks of discharge) Kaylan Will MD [Physician] - Diet: Dialysis Renal Fluids: 1200ml (5 cups) Diet Texture: Easy to Chew Addtl Attending Provider Instructions: Ms. Ray, You were recently hospitalized for weakness and were found to have had a cerebellum stroke. Please see recommendations below regarding your discharge. 1. Please continue on Aspirin and Plavix for 21 days. Your atorvastatin has been increased to 40mg daily as well. Following this, please follow up with your PCP for further recommendations of which medication to continue. 2. Please continue on Vancomycin 4 times daily for the next 8 days. 3. Please take a fiber supplement daily to help with your diarrhea. 4. Continue to follow up with nephrology for dialysis. 5. Follow up with cardiology outpatient for your aortic stenosis. 6. Follow up with your wound clinic for management of your sacral wound. 7. Please follow up with your PCP within 1-2 weeks of discharge. If you develop any worsening weakness, chest pain, or shortness of breath, please report back to the ER for further care. Sincerely, Carmen Jim PA-C Pending Studies at Discharge: No Stand-Alone Forms: My [facility] [employer], Medications to Prevent Stroke Skilled Items Patient informed of condition?: Yes DNR: Yes Discharge Level of Care: Acute rehab Communicable Disease: Yes Discharge Prognosis: Stable Lines: None Urinary Catheter: No Medications and DC Order Prescriptions: New clopidogrel [Plavix] 75 mg tablet 75 mg PO DAILY Qty: 20 0RF aspirin 81 mg capsule 81 mg PO DAILY Qty: 20 0RF vancomycin 125 mg capsule 125 mg PO QID Qty: 30 0RF Metamucil 3.4 gram/5.4 gram powder 1 tbsp PO DAILY Qty: 660 0RF Rx Instructions: mix into at least 8 oz of water or juice before administering atorvastatin 40 mg tablet 40 mg PO DAILY Qty: 30 0RF Continued bethanechol chloride 50 mg tablet 50 mg PO BID Qty: 180 3RF furosemide 80 mg tablet 80 mg PO BID Qty: 180 1RF pantoprazole [Protonix] 40 mg tablet,delayed release (DR/EC) 40 mg PO BID Qty: 60 5RF triamcinolone acetonide 0.5 % cream 1 applic topical BID PRN (Reason: skin irritation) Qty: 60 1RF ropinirole 0.5 mg tablet 0.5 mg PO UD Qty: 90 1RF Rx Instructions: Take 0.5mg by mouth in the morning; then take 1.5mg by mouth at bedtime methocarbamol 500 mg tablet 500 mg PO TID PRN (Reason: muscle spasm) Qty: 90 1RF tramadol 50 mg tablet 50 mg PO BID PRN (Reason: Pain) Qty: 60 0RF sertraline 50 mg tablet 50 mg PO DAILY Qty: 30 2RF famotidine 40 mg tablet 40 mg PO BID Qty: 60 2RF calcium acetate 667 mg tablet 667 mg PO UD Rx Instructions: 11/26:Per pt's daughter, pt has been taking Calcium Acetate 667mmg by mouth twice daily with two meals ALONG with Sevelamer 800mmg by mouth twice daily with meals. These are taken with the same meals. Pt's daughter says she was never told to discontinue one so the pt has been taking both at the same time. fluticasone propionate [Flonase Allergy Relief] 50 mcg/actuation spray ,suspension 1 spray intranasal DAILY Qty: 16 2RF Rx Instructions: administer into each nostril cholecalciferol (vitamin D3) [Vitamin D3] 1,000 unit Capsule 2,000 unit PO QAM loperamide 2 mg Capsule 2 mg PO UD PRN (Reason: Diarrhea) Rx Instructions: administer after each loose stool until symptoms controlled; do not exceed 8 mg per 24 hrs estradiol 0.01 % (0.1 mg/gram) cream 1 applic VAGINAL 3XWK PRN (Reason: ONLY WHEN BURNING) nystatin 100,000 unit/gram powder 1 applic TOPICAL BID PRN (Reason: IRRITATION) cyanocobalamin (vitamin B-12) [Vitamin B-12] 1,000 mcg tablet 1,000 mcg PO QAM Cavilon Durable Barrier 1.3 % cream 1 applic topical DAILY PRN (Reason: skin irritation) Rx Instructions: as needed for skin protection mv,Ca,min-folic acid-vit K1 400-20 mcg Tablet 1 tab PO DAILY calcium carbonate-vitamin D3 [Calcium 600 + D(3)] 600 mg-10 mcg (400 unit) Tablet 1 tab PO DAILY omega-3 fatty acids 1,000 mg Capsule 1,000 mg PO DAILY levothyroxine 150 mcg tablet 150 mcg PO QAM sevelamer carbonate 800 mg tablet 800 mg PO UD Rx Instructions: 11/26:Per pt's daughter, pt has been taking Calcium Acetate 667mmg by mouth twice daily with two meals ALONG with Sevelamer 800mmg by mouth twice daily with meals. These are taken with the same meals. Pt's daughter says she was never told to discontinue one so the pt has been taking both at the same time. Discontinued atorvastatin [Lipitor] 10 mg tablet 10 mg PO HS Qty: 90 1RF Metamucil (sugar) Powder See Rx Instructions PO DAILY PRN (Reason: diarrhea) Qty: 1254 0RF Rx Instructions: 7.2 grams orally daily PRN; No Action (DME) Fitted Briefs X-Large Misc See Rx Instructions .Route Qty: 150 5RF Rx Instructions: using 4-5 per day R19.7 Discharge Orders: Discharge Order (Routine); Ordered 12/05/23 Ordered By: Carmen Jim Admission Data Admit Date/Time: 11/30/23 14:38 Attending Provider: Chris West Admit Provider: Soren Sue Primary Care Provider: Agatha Alfaro Other Providers: Kaylan Will; Frank Fitzgerald; [facility]; [facility] Other Interventions: Discharge Summary Assessment (RN) Last Done: 12/05/23 15:02 Hospital Stay Data Consultations 11/30/23 18:33 Consult Nephrology Routine 11/30/23 22:38 Consult Neurology Routine Diagnostic Imagining Performed 11/30/23 11:08 CT head/brain wo con Stat 11/30/23 14:40 MRI Brain [MR brain wo con] Urgent 12/01/23 US carotid doppler BI Routine Discharge Instructions Given to Patient (Per Discharging Provider) Ms. Ray, You were recently hospitalized for weakness and were found to have had a cerebellum stroke. Please see recommendations below regarding your discharge. 1. Please continue on Aspirin and Plavix for 21 days. Your atorvastatin has been increased to 40mg daily as well. Following this, please follow up with your PCP for further recommendations of which medication to continue. 2. Please continue on Vancomycin 4 times daily for the next 8 days. 3. Please take a fiber supplement daily to help with your diarrhea. 4. Continue to follow up with nephrology for dialysis. 5. Follow up with cardiology outpatient for your aortic stenosis. 6. Follow up with your wound clinic for management of your sacral wound. 7. Please follow up with your PCP within 1-2 weeks of discharge. If you develop any worsening weakness, chest pain, or shortness of breath, please report back to the ER for further care. Sincerely, Carmen Jim PA-C Total Time Total Time Spent Total Time Spent (In Minutes): 45 Total Time Includes: Examination of the Patient, Discharge Planning and Medication Reconciliation Coding Level of Care Code 37043 INP/OBS DISCH >30 MIN Diagnoses Cerebellar stroke I63.9 UTI (urinary tract infection) N39.0 ESRD on dialysis N18.6; Z99.2 Pressure injury of sacral region, unstageable L89.150 Pressure injury location: sacral region Pressure injury stage: unstageable Anemia due to chronic kidney disease, on chronic dialysis N18.6; D63.1; Z99.2 Anemia type: due to chronic kidney disease Chronic kidney disease stage: on chronic dialysis Aortic valve stenosis, etiology of cardiac valve disease unspecified I35.0 Cardiac valve disease etiology: etiology unspecified Diarrhea R19.7
== END 2023-12-05 16:56 | DRG 64 ==
LOC: ED 10:52 → 2N 14:38 → SUATTDRO 14:38 → 2N 18:14 → 2W 12-02 05:31 → 3E 12-05 01:54

== ENCOUNTER 2023-12-25 18:08 | Inpatient (IN) ==
--- NOTE | 2023-12-25 18:19 | ED Triage Note ---
Date of Service December 25, 2023 Provider in Triage Author: Reema Cardoso History of Present Illness This patient was briefly evaluated while in triage. An abbreviated physical exam was performed. This patient is a 83-year-old Female who presents to the ED for evaluation of cough and shortness of breath. She states symptoms started 2 days ago. She has been coughing up some greenish phlegm and feels short of breath. Denies fevers. Physical Exam GENERAL: Non-toxic and in no acute distress. HEENT: Pupils equal. No obvious scleral icterus. HEART: Regular rate and rhythm. Harsh systolic murmur. LUNGS: Crackles bilateral bases. NEURO: Alert and oriented. No obvious neurological deficits on quick neuro exam. Initial orders for labs and / or imaging were placed and patient was placed in the waiting area until a bed is available. Please see further documentation for the full ED course.
--- NOTE | 2023-12-25 19:41 | Emergency Department Note ---
Impression & Plan Pneumonia, Coronavirus infection, unspecified, ESRD on hemodialysis ED Provider Note NAME: NIURKA QUIÑONES AGE: 83 SEX: F : 1940 ARRIVES VIA: Walk-In INFORMANT: Patient ED PROVIDER(S): Trevon Morton MD CHIEF COMPLAINT: Shortness of breath, weakness. PLAN: Disposition: Admit MEDICAL DECISION MAKING: The patient is a pleasant 83-year-old woman with a past medical history of end- stage renal disease on hemodialysis, Sunday, , Sunday, atrial fibrillation, fatty liver/cirrhosis, gastroparesis, aortic stenosis who presents to Emergency Department via walk-in COVID by her daughter for evaluation of worsening shortness of breath with cough and congestion over the past several days with associated weakness where she is not able to ambulate due to the weakness. Daughter is concerned because the patient lives at home alone. They deny any missed sessions of dialysis. She did go to dialysis today. She denies any measured fevers. She denies nausea or vomiting or diarrhea. She denies any known sick contacts. On evaluation the patient is no distress, afebrile with stable vital signs. She has wheezes and rhonchi of bilateral mid to lower lung phan, right greater than left with normal respiratory effort. EKG without overt acute ischemia. Chest x-ray demonstrates vascular congestion with right mid to lower lung field airspace opacities suspicious for pneumonia versus asymmetric pulmonary edema per my preliminary independent interpretation. WBC 4.5K with neutrophilia. Lymphopenia is present. There is no left shift. Chemistry without metabolic acidosis. Creatinine is 3 in setting of known stage renal disease. BNP is 900 however in setting of end-stage renal disease and nonspecific. Procalcitonin is 0.83 suggestive of bacterial infection. Respiratory BioFire is positive for coronavirus OC 43. Treatment was initiated with DuoNeb as well as dexamethasone for component of bronchospasm. Blood culture was obtained and MRSA swab ordered. Empiric treatment for pneumonia initiated with Zosyn. Given the patient's pneumonia in setting of viral illness and generalized weakness will refer to hospitalist service for further management. Case was discussed with Dr. Beck, [facility] [place], who will evaluate the patient for admission. Further management per admitting team. Triage Nursing notes reviewed and agree them. Prior/external medical records reviewed Vital Signs: reviewed Differential diagnosis: Reactive airway disease, pneumonia, pneumothorax, COPD, CHF, infections, cardiac ischemia, pulmonary embolism, musculoskeletal, gastrointestinal, as well as other pathologies. ER treatment provided: See below. Diagnostics interpreted by me: ECG: Sinus rhythm with first-degree AV block, 80 bpm, no ectopy, no overt ST ovation or depression, QTc 49, QRS 130. Cardiac Monitoring: An order for continuous cardiac monitoring was placed and demonstrated Sinus rhythm with first-degree AV block, 80 bpm, no ectopy. Laboratory studies: See below Imaging studies: See below Consultation(s): Case was discussed with Dr. Beck, [facility] [place], who will evaluate the patient for admission. HPI: The patient is a pleasant 83-year-old woman with a past medical history of end-stage renal disease on hemodialysis, Sunday, atrial fibrillation, fatty liver/cirrhosis, gastroparesis, aortic stenosis who presents to Emergency Department via walk-in COVID by her daughter for evaluation of worsening shortness of breath with cough and congestion over the past several days with associated weakness where she is not able to ambulate due to the weakness. Daughter is concerned because the patient lives at home alone. They deny any missed sessions of dialysis. She did go to dialysis today. She denies any measured fevers. She denies nausea or vomiting or diarrhea. She denies any known sick contacts. ROS: See above HPI for pertinent positives & negatives. A total of 10 systems reviewed and were otherwise negative. VITALS:See Below PHYSICAL EXAMINATION: GENERAL: Awake, alert, fatigued-appearing, in no distress HENT: Normocephalic, atraumatic. Oropharynx unremarkable. EYES: Normal conjunctiva. Sclera non-icteric. NECK: Supple. No nuchal rigidity. FROM. No JVD. RESPIRATORY: Wheezes and rhonchi of bilateral mid to lower lung phan, right greater than left with normal respiratory effort. CARDIAC: Regular rate, normal rhythm. 3/6 murmur. Extremities warm and well perfused. Pulses equal. ABDOMEN: Soft, non-distended. No tenderness to palpation. No rebound or guarding. No masses. MUSCULOSKELETAL: Chest examination reveals no tenderness. The back is symmetrical on inspection without obvious abnormality. There is no CVA tenderness to palpation. No joint edema. LOWER EXTREMITIES: Calves are equal size bilaterally and non-tender. 1+ BLE edema. No discoloration. NEURO: Normal sensorium. No sensory or motor deficits noted. SKIN: No rash or jaundice noted. Trevon Morton MD Past Med/Surg History Problem List (Updated 12/26/23 @ 05:35 by Trevon Morton MD) ESRD on hemodialysis (Acute) Coronavirus infection, unspecified (Acute) Pneumonia (Acute) Cerebellar stroke Acute UTI (urinary tract infection) (Acute) Pressure ulcer Fall (Acute) Skin tear of right upper extremity (Acute) Facial droop (Acute) Right sided weakness (Acute) Sacral wound Generalized weakness (Acute) Fall from standing (Acute) ESRD on dialysis (Acute) Ambulatory dysfunction (Acute) Discharge planning issues DVT prophylaxis Pleural effusion CKD (chronic kidney disease) (Acute) Anemia (Acute) Shakiness (Acute) Bilateral edema of lower extremity (Acute) Physical deconditioning ESRD on dialysis (Acute) Ascites Aortic stenosis 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 Palliative care by specialist Pancytopenia Clostridioides difficile carrier Vitamin D deficiency (Chronic) Recurrent urinary tract infection 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 aguirre Osteoarthritis Hyperlipidemia History of CVA (cerebrovascular accident) (2019) ~5years ago, woke up with weakness in her rt hand; L lacunar infarct; previously on plavix>no residual effects Hiatal hernia GERD without esophagitis Fatty liver Essential tremor MINOR IN HAND Diabetic retinopathy Chronic hyponatremia Chronic diastolic heart failure CAD (coronary artery disease) Anxiety Anemia of chronic disease GAVE (gastric antral vascular ectasia) (Acute) Medical History Right wrist pain Generalized weakness Fatigue CKD (chronic kidney disease) CKD (chronic kidney disease) Sepsis Encephalopathy UTI (urinary tract infection) Lower extremity cellulitis Pleural effusion, bilateral Elevated brain natriuretic peptide (BNP) level Elevated troponin I level Pericardial effusion Elevated brain natriuretic peptide (BNP) level Non-ST elevation IL (NSTEMI) Pancytopenia Hemorrhoids History of recent hospitalization GI BLEED/LOW BLOOD COUNT/HX BLOOD TRANSFUSION - MAY 2022 - [facility] ESRD on hemodialysis tuesdays, , and saturdays currently Poor historian History of GI bleed hx 08/2021, given transfusion-per medical record REASON FOR UPCOMING PROCEDURE Hx of atrial fibrillation, no current medication per medical report History of renal dialysis , AND SAT ([facility] [place]OSS FROM [facility]) ACCESS SITE RIGHT SIDE OF CHEST/ ? DETAILS Resistant hypertension Diabetes mellitus, type 2 Hearing deficit no hearing aids Urinary urgency Secondary hyperparathyroidism of renal origin First degree AV block Hypertension Hypothyroidism Surgical History History of esophagogastroduodenoscopy (EGD) multiple---last 08/01/2022 @ [facility] 04/06/22 at [facility] with Dr. Mich Pacheco- EGD- Gastric antral vascular ectasia with bleeding, treated with argon plasma coagulation (APC); Few angioectasias in the duodenum, treated with APC S/P pericardiocentesis 08/2021, CT, w/dr moura Hx of cardiac catheterization 08/2021, [facility] w/Dr. Moura for increased cardiac pressures; no stents History of tooth extraction History of colonoscopy H/O varicose vein ligation S/P trigger finger release S/P knee replacement RT/LEFT History of bladder suspension procedure X 2 S/P carpal tunnel release RT/LEFT History of back surgery (04/2010) X 2 S/P hysterectomy [place] Family History Father Alcohol abuse Heart disease Myocardial infarction Hypertension Sister Pancreatic cancer Diabetes Breast cancer Brother Diabetes Alcohol abuse Stroke Other Cancer No family history of adverse response to anesthesia Denies family history of Ovarian cancer Prostate cancer Colorectal cancer Social History Smoking Status: Never smoker Second Hand Exposure: No; Do You Dip or Chew Tobacco: No; Hx Alcohol Use: No Hx Substance Use: No Preferred Language: Vincentian Communication Ability: Effective Visual Impairment: No Limitations Hearing Ability: Normal Breakdown Person Required: No Beliefs That Will Affect Care: None marital status: Single Current Living Situation: Alone Current Living Situation Comment: 1 story home with ramp to enter home current occupational status: retired How many Children do You have: 2 Other Information That Helps Us Care for You: No Feels Safe at Home: Yes Safety Concerns: Feels Safe At This Time Childhood Exposure to Second-Hand Smoke: No Diet: regular Diet Comment: regular caffeine: Yes (Coffee x 2 cups per day.) during the past year weight has: remained stable Dental Care, Regularly: No Physical Activity Frequency: Does not Exercise Seatbelt Use: always Sunscreen Use: Yes Assistive Devices: Denture - Upper, Denture - Lower, Walker and Wheelchair Allergies Allergies Allergy/AdvReac Type Severity Reaction Status Date / Time sulfamethoxazole AdvReac Unknown REMOTE Verified 12/20/23 08:19 [From Bactrim] HX/PT NOT SURE REACTION trimethoprim [From Bactrim] AdvReac Unknown REMOTE Verified 12/20/23 08:19 HX/PT NOT SURE REACTION Home Meds Home Medications Medication Instructions Recorded Confirmed cholecalciferol (vitamin D3) 25 2,000 unit PO QAM 05/29/18 12/25/23 mcg (1,000 unit) capsule (Vitamin D3) cyanocobalamin (vitamin B-12) 1,000 mcg PO QAM 11/12/20 12/25/23 1,000 mcg tablet (Vitamin B-12) loperamide 2 mg capsule 2 mg PO UD PRN Diarrhea 05/29/22 12/25/23 estradiol 0.01% (0.1 mg/gram) 1 applic vaginal 3XWK PRN ONLY 05/30/22 12/25/23 vaginal cream WHEN BURNING nystatin 100,000 unit/gram topical 1 applic topical BID PRN IRRITATION 07/10/22 12/25/23 powder calcium acetate 667 mg tablet 667 mg PO UD 07/06/23 12/25/23 calcium 600 mg (as 1 tab PO DAILY 07/23/23 12/25/23 carbonate)-vitamin D3 10 mcg (400 unit) tablet (Calcium 600 + D(3)) omega-3 fatty acids 1,000 mg 1,000 mg PO DAILY 07/23/23 12/25/23 capsule dimethicone 1.3 % topical cream 1 applic topical DAILY PRN skin 08/25/23 12/25/23 (Cavilon Durable Barrier) irritation vzspqzqdrhlk-ajamrucf-rupzmol-folic 1 tab PO DAILY 10/30/23 12/25/23 acid 400 mcg-vit K1 20 mcg tablet levothyroxine 150 mcg tablet 150 mcg PO QAM 11/27/23 12/25/23 sevelamer carbonate 800 mg tablet 800 mg PO UD 11/27/23 12/25/23 Previous Rx's Medication Instructions Recorded bethanechol chloride 50 mg tablet 50 mg PO BID #180 tabs 04/19/21 diaper,brief,adult,disposable #150 ea 12/07/21 (Fitted Briefs X-Large) furosemide 80 mg tablet 80 mg PO BID #180 tabs 05/28/23 pantoprazole 40 mg tablet,delayed 40 mg PO BID #60 tabs 06/27/23 release (Protonix) triamcinolone acetonide 0.5 % 1 applic topical BID PRN skin 07/03/23 topical cream irritation #60 grams fluticasone propionate 50 1 spray intranasal DAILY #16 grams 08/16/23 mcg/actuation nasal spray,suspension (Flonase Allergy Relief) methocarbamol 500 mg tablet 500 mg PO TID PRN muscle spasm #90 09/20/23 tabs ropinirole 0.5 mg tablet 0.5 mg PO UD #90 tabs 09/20/23 tramadol 50 mg tablet 50 mg PO BID PRN Pain #60 tabs 10/29/23 sertraline 50 mg tablet 50 mg PO DAILY #30 tabs 11/12/23 famotidine 40 mg tablet 40 mg PO BID #60 tabs 11/19/23 aspirin 81 mg capsule 81 mg PO DAILY #20 caps 12/05/23 atorvastatin 40 mg tablet 40 mg PO DAILY #30 tabs 12/05/23 clopidogrel 75 mg tablet (Plavix) 75 mg PO DAILY #20 tabs 12/05/23 psyllium husk 3.4 gram/5.4 gram 1 tbsp PO DAILY #660 grams 12/05/23 oral powder (Metamucil) vancomycin 125 mg capsule 125 mg PO QID #30 caps 12/05/23 Results & Data (ED) Vital Signs Vital Signs - 24 hr 12/25/23 18:15 12/25/23 19:29 12/25/23 19:32 Temperature 36.5 C Temperature Source Oral Pulse Rate 84 Pulse Rate [Left Finger] 80 Respiratory Rate 24 18 Respiratory Effort / Characteristics Respiratory Depth Blood Pressure 125/54 L Blood Pressure [Right Arm] 137/68 Blood Pressure Mean 77 Blood Pressure Mean [Right Arm] 91 Blood Pressure Position [Right Arm] Sitting Pulse Oximetry 94 98 98 Oxygen Delivery Method Room Air Room Air Room Air Sepsis Recent Fever Within 48 Hours No Sepsis New/Unexplained Change in Mental Status N/A Sepsis Action Taken by Nursing No Action Required 12/25/23 19:33 12/25/23 19:50 12/25/23 19:50 Temperature Temperature Source Pulse Rate 74 Pulse Rate [Left Finger] Respiratory Rate Respiratory Effort / Characteristics Nasal Congestion Short of Breath Respiratory Depth Shallow Blood Pressure Blood Pressure [Right Arm] Blood Pressure Mean Blood Pressure Mean [Right Arm] Blood Pressure Position [Right Arm] Pulse Oximetry 98 Oxygen Delivery Method Room Air Room Air Sepsis Recent Fever Within 48 Hours Sepsis New/Unexplained Change in Mental Status Sepsis Action Taken by Nursing 12/25/23 21:22 Temperature Temperature Source Pulse Rate Pulse Rate [Left Finger] 89 Respiratory Rate 20 Respiratory Effort / Characteristics Respiratory Depth Blood Pressure Blood Pressure [Right Arm] 132/90 Blood Pressure Mean Blood Pressure Mean [Right Arm] 104 Blood Pressure Position [Right Arm] Pulse Oximetry 93 Oxygen Delivery Method Room Air Sepsis Recent Fever Within 48 Hours Sepsis New/Unexplained Change in Mental Status Sepsis Action Taken by Nursing Laboratory Data Attestation: I reviewed the patient's lab results. 12/25/23 19:00 12/25/23 20:05 Lab Results 12/25/23 12/25/23 12/25/23 Range/Units 19:00 20:05 20:47 WBC 4.50 L (4.8-10.8) K/ul RBC 2.92 L (4.20-5.40) M/uL Hgb 8.1 L (12.0-16.0) g/dl Hct 26.2 L (37.0-47.0) % MCV 89.7 (80.0-100.0) fL MCH 27.7 (25.0-34.0) pg MCHC 30.9 L (32.0-36.0) g/dL RDW Std Deviation 55.3 H (36.4-46.3) fL RDW Coeff of Irasema 17.1 H (11.5-14.5) % Plt Count 174 (130-400) K/uL MPV 10.8 (9.4-12.4) fL Immature Gran % (Auto) 0.4 % Neut % (Auto) 85.1 % Lymph % (Auto) 6.4 % Larue % (Auto) 6.7 % Eos % (Auto) 0.7 % Baso % (Auto) 0.7 % Neut # (Auto) 3.83 (1.40-6.50) K/uL Lymph # (Auto) 0.29 L (1.20-3.40) K/uL Larue # (Auto) 0.30 (0.11-0.59) K/uL Eos # (Auto) 0.03 (0.00-0.50) K/uL Baso # (Auto) 0.03 (0.00-0.20) K/uL Immature Gran # (Auto) 0.02 (0.01-0.20) K/uL Sodium TNP 137 Potassium TNP 3.9 Chloride 99 (98-107) mmol/L Carbon Dioxide 28 (21-32) mmol/L Anion Gap TNP BUN 35 H (6-23) mg/dl Creatinine 3.05 H (0.6-1.2) mg/dl Est Cr Clr Drug Dosing 10.8 ml/min eGFR 14.48 BUN/Creatinine Ratio 11.5 (10-20) Glucose 131 H (70-99(Fasting)) mg/dl Calcium 7.7 L (8.6-10.3) mg/dl Total Bilirubin 0.4 (0.2-1.0) mg/dl AST TNP 24 ALT 15 (7-52) U/L Alkaline Phosphatase 300 H (34-104) U/L B-Natriuretic Peptide 924 H (0-100) pg/ml Total Protein 6.3 (6.0-8.3) gm/dl Albumin 2.9 L (3.4-5.0) gm/dl Globulin 3.4 (2.5-4.0) gm/dl Albumin/Globulin Ratio 0.9 (0.9-2) Procalcitonin 0.83 H (0-0.5) ng/ml Nasal Screen MRSA (PCR) Negative (Negative) Adenovirus (PCR) Not Detected (NotDetected) B. pertussis DNA (PCR) Not Detected (NotDetected) B.parapertussis DNA PCR Not Detected (NotDetected) C. pneumoniae DNA (PCR) Not Detected (NotDetected) Coronavirus OC43 (PCR) DETECTED A (NotDetected) Coronavirus HKU1 (PCR) Not Detected (NotDetected) Coronavirus 229E (PCR) Not Detected (NotDetected) SARS-CoV-2 (PCR) Not Detected (NotDetected) Coronavirus NL63 (PCR) Not Detected (NotDetected) Human Metapneumovir PCR Not Detected (NotDetected) Influenza Type A (PCR) Not Detected (NotDetected) Influenza Type B (PCR) Not Detected (NotDetected) M. pneumoniae (PCR) Not Detected (NotDetected) Parainfluenza 1 (PCR) Not Detected (NotDetected) Parainfluenza 2 (PCR) Not Detected (NotDetected) Parainfluenza 3 (PCR) Not Detected (NotDetected) Parainfluenza 4 (PCR) Not Detected (NotDetected) RSV (PCR) Not Detected (NotDetected) Entero/Rhino (PCR) Not Detected (NotDetected) Administered Medications Discontinued Medications Albuterol (Albut/Ipratrop 3mg/0.5mg Neb 3 Ml Vial) 3 ml NEB NOW STA; Protocol Stop: 12/25/23 20:12 Last Admin: 12/25/23 20:38 Dose: 3 ml Documented By: EVANS Daniels Syrup (Daniels Syrup 5 Ml Udp) 5 ml PO ONE STA Stop: 12/25/23 21:34 Last Admin: 12/25/23 22:31 Dose: 5 ml Documented By: EVANS Dexamethasone Sodium Phosphate (DexamethasonePf 10 Mg/Ml Vial) 10 mg IV NOW ONE Stop: 12/25/23 20:12 Last Admin: 12/25/23 20:41 Dose: 10 mg Documented By: EVANS Guaifenesin (Guaifenesin 600 Mg Tabcr) 600 mg PO NOW STA Stop: 12/25/23 20:14 Last Admin: 12/25/23 20:41 Dose: 600 mg Documented By: EVANS Piperacillin Sod/Tazobactam Sod (Zosyn) 4.5 gm in 100 mls @ 200 mls/hr IV NOW ONE; Protocol Stop: 12/25/23 20:42 Last Infusion: 12/25/23 21:17 Dose: Infused Documented By: Admin: 12/25/23 20:41 Dose: 200 mls/hr Documented By: EVANS Vancomycin HCl (Vancomycin Hcl 125 Mg/2.5ml Soln) 125 mg PO ONE STA Stop: 12/25/23 21:34 Last Admin: 12/25/23 22:31 Dose: 125 mg Documented By: EVANS Discharge Plan Visit Data Chief Complaint: Shortness of Breath/Dyspnea Stated Complaint: SOB, COUGH, PHLEM, ED Provider: Trevon Morton Discharge Problem: Pneumonia, Coronavirus infection, unspecified, ESRD on hemodialysis Patient Disposition: Admitted As Inpatient Discharge Instructions Interventions: ED Discharge Assessment Last Done: 12/25/23 23:11 Discharge Problem: Pneumonia Qualifiers: Pneumonia type: due to unspecified organism Laterality: right Lung location: m iddle lobe of lung Qualified Code(s): J18.9 - Pneumonia, unspecified organism
[2023-12-25 19:54] LABS: Basophils # (auto) 0.03 K/uL (0.00-0.20); Basophils % (auto) 0.7 %; Eosinophils # (auto) 0.03 K/uL (0.00-0.50); Eosinophils % (auto) 0.7 %; Hematocrit (blood only) 26.2 % (37.0-47.0); Hemoglobin 8.1 g/dl (12.0-16.0); Immature Granulocytes # (auto) 0.02 K/uL (0.01-0.20); Immature Granulocytes % (auto) 0.4 %; Lymphocytes # (auto) 0.29 K/uL (1.20-3.40); Lymphocytes % (auto) 6.4 %; Mean Corpuscular Hemoglobin 27.7 pg (25.0-34.0); Mean Corpuscular Hgb Conc 30.9 g/dL (32.0-36.0); Mean Corpuscular Volume 89.7 fL (80.0-100.0); Mean Platelet Volume 10.8 fL (9.4-12.4); Monocytes % (auto) 6.7 %; Neutrophils # (auto) 3.83 K/uL (1.40-6.50); Neutrophils % (auto) 85.1 %; Platelet Count 174 K/uL (130-400); RDW Coefficient of Variation 17.1 % (11.5-14.5); RDW Standard Deviation 55.3 fL (36.4-46.3); Red Blood Count 2.92 M/uL (4.20-5.40)
[2023-12-25 20:13] LABS: Alanine Aminotransferase 15 U/L (7-52); Albumin Globulin Ratio 0.9 (0.9-2); Albumin Level 2.9 gm/dl (3.4-5.0); Alkaline Phosphatase 300 U/L (34-104); BUN Creatinine Ratio 11.5 (10-20); Bilirubin,Total 0.4 mg/dl (0.2-1.0); Blood Urea Nitrogen 35 mg/dl (6-23); Calcium 7.7 mg/dl (8.6-10.3); Carbon Dioxide 28 mmol/L (21-32); Chloride 99 mmol/L (98-107); Creatinine Clr Calc Pharmacy 10.8 ml/min; Globulin 3.4 gm/dl (2.5-4.0); Glucose 131 mg/dl (70-99(Fasting)); Total Protein 6.3 gm/dl (6.0-8.3)
[2023-12-25 20:25] LABS: Adenovirus PCR Not Detected (NotDetected); Bordetella parapertussis PCR Not Detected (NotDetected); Bordetella pertussis PCR Not Detected (NotDetected); Chlamydia pneumoniae PCR Not Detected (NotDetected); Coronavirus 229E PCR Not Detected (NotDetected); Coronavirus CoV-2 (COVID19)PCR Not Detected (NotDetected); Coronavirus HKU1 PCR Not Detected (NotDetected); Coronavirus NL63 PCR Not Detected (NotDetected); Coronavirus OC43PCR DETECTED (NotDetected); Human Metapneumovirus PCR Not Detected (NotDetected); Influenza A PCR Not Detected (NotDetected); Influenza B PCR Not Detected (NotDetected); Mycoplasma pneumoniae PCR Not Detected (NotDetected); Parainfluenza Virus 1 PCR Not Detected (NotDetected); Parainfluenza Virus 2 PCR Not Detected (NotDetected); Parainfluenza Virus 3 PCR Not Detected (NotDetected); Parainfluenza Virus 4 PCR Not Detected (NotDetected); Respiratory Syncytial VirusPCR Not Detected (NotDetected); Rhinovirus/Enterovirus PCR Not Detected (NotDetected)
[2023-12-25] MEDS: ALBUT/IPRATROP 3MG/0.5MG NEB 3 ML VIAL NEB STA (20:38)
[2023-12-25 20:40] LABS: Potassium 3.9 mmol/L (3.5-5.1)
[2023-12-25] MEDS: guaiFENesin 600 MG TABCR PO STA (20:41)
[2023-12-25] MEDS: dexAMETHasone**PF** 10 MG/ML VIAL IV ONE (20:41)
[2023-12-25] MEDS: PIPERACILLIN/TAZOBACTAM 4.5 GM/100 ML BAG IV ONE (20:41)
--- NOTE | 2023-12-25 21:38 | History & Physical Report ---
Date of Service December 25, 2023 Assessment & Plan (1) ESRD on hemodialysis: (2) Coronavirus infection, unspecified: (3) Pleural effusion: (4) Pneumonia: (5) Ambulatory dysfunction: (6) Physical deconditioning: (7) Clostridioides difficile carrier: (8) Diabetes mellitus type 2 with complications: (9) (HFpEF) heart failure with preserved ejection fraction: Plan Acute respiratory failure with hypoxia/coronavirus OC 43/secondary bacterial pneumonia/pleural effusion/HFpEF- Combination of reasons to be short of breath and have dyspnea on exertion From the ED she received the following: Duonebs 3ml, Dexamethasone 10 mg IV, guaifenesin 600 mg NPO, and Zosyn 4.5 g IV Dexamethasone 6 mg IV every morning Duonebs every 4 hours while awake and every 2 hours when necessary. Zosyn 4.5 g IV every 12 hours MRSA swab Guaifenesin extended release 1200 mg p.o. twice daily Follow pleural effusion and HFpEF improvement with dialysis ESRD on HD- Continue acetate, calcium carbonate, cholecalciferol, furosemide, multivitamin with folic acid, Sevelamer Consult nephrology C. difficile carrier- Vancomycin 125 mg p.o. 4 times daily Generalized weakness/fatigue/deconditioning/ambulatory dysfunction- She just completed an admission at [facility] from 12/04-12/20/2023, after her admission at [facility] from 11/29-12/05/2023 The patient's family reports that she had been able to get around better, but they feel that she is getting weak again Consult PT/OT History of Present Illness Chief Complaint: Patient presents to the emergency department with worsening shortness of breath, productive cough and chest congestion over the past several days, with family reporting that she had developed a cough shortly after leaving [facility] 12/20/23. She has become weak and had ability to ambulate, even with her walker at this time. She did make it to dialysis on time, and had a full treatment. Primary Care Provider: Agatha Alfaro DO The patient is an 83-year-old female with a past medical history including ESRD on HD, pressure ulcer, right-sided weakness, generalized weakness, ambulatory dysfunction, lower extremity edema, aortic stenosis, Mobitz type I AV block, recurrent UTI, gastroparesis, diabetes mellitus, ARMD, cirrhosis, esophageal varices, HFpEF and A-fib, anemia of chronic disease, GAVE. She presents to the emergency department with symptoms as noted above. Most recent admission to [facility] was from 11/29-12/05/2023, and was then discharged to [facility] from 12/04-12/20/2023. Allergies Allergy/AdvReac Type Severity Reaction Status Date / Time sulfamethoxazole AdvReac Unknown REMOTE Verified 12/20/23 08:19 [From Bactrim] HX/PT NOT SURE REACTION trimethoprim [From Bactrim] AdvReac Unknown REMOTE Verified 12/20/23 08:19 HX/PT NOT SURE REACTION Home Medications Medication Instructions Recorded Confirmed Type cholecalciferol (vitamin D3) 25 2,000 unit PO QAM 05/29/18 12/25/23 History mcg (1,000 unit) capsule (Vitamin D3) cyanocobalamin (vitamin B-12) 1,000 mcg PO QAM 11/12/20 12/25/23 History 1,000 mcg tablet (Vitamin B-12) bethanechol chloride 50 mg tablet 50 mg PO BID #180 tabs 04/19/21 12/25/23 Rx diaper,brief,adult,disposable #150 ea 12/07/21 12/25/23 Rx (Fitted Briefs X-Large) loperamide 2 mg capsule 2 mg PO UD PRN Diarrhea 05/29/22 12/25/23 History estradiol 0.01% (0.1 mg/gram) 1 applic vaginal 3XWK PRN ONLY 05/30/22 12/25/23 History vaginal cream WHEN BURNING nystatin 100,000 unit/gram topical 1 applic topical BID PRN IRRITATION 07/10/22 12/25/23 History powder furosemide 80 mg tablet 80 mg PO BID #180 tabs 05/28/23 12/25/23 Rx pantoprazole 40 mg tablet,delayed 40 mg PO BID #60 tabs 06/27/23 12/25/23 Rx release (Protonix) triamcinolone acetonide 0.5 % 1 applic topical BID PRN skin 07/03/23 12/25/23 Rx topical cream irritation #60 grams calcium acetate 667 mg tablet 667 mg PO UD 07/06/23 12/25/23 History calcium 600 mg (as 1 tab PO DAILY 07/23/23 12/25/23 History carbonate)-vitamin D3 10 mcg (400 unit) tablet (Calcium 600 + D(3)) omega-3 fatty acids 1,000 mg 1,000 mg PO DAILY 07/23/23 12/25/23 History capsule fluticasone propionate 50 1 spray intranasal DAILY #16 grams 08/16/23 12/25/23 Rx mcg/actuation nasal spray,suspension (Flonase Allergy Relief) dimethicone 1.3 % topical cream 1 applic topical DAILY PRN skin 08/25/23 12/25/23 History (Cavilon Durable Barrier) irritation methocarbamol 500 mg tablet 500 mg PO TID PRN muscle spasm #90 09/20/23 12/25/23 Rx tabs ropinirole 0.5 mg tablet 0.5 mg PO UD #90 tabs 09/20/23 12/25/23 Rx tramadol 50 mg tablet 50 mg PO BID PRN Pain #60 tabs 10/29/23 12/25/23 Rx vubdoinxnmhg-fbfgkazs-aqktahw-folic 1 tab PO DAILY 10/30/23 12/25/23 History acid 400 mcg-vit K1 20 mcg tablet sertraline 50 mg tablet 50 mg PO DAILY #30 tabs 11/12/23 12/25/23 Rx famotidine 40 mg tablet 40 mg PO BID #60 tabs 11/19/23 12/25/23 Rx levothyroxine 150 mcg tablet 150 mcg PO QAM 11/27/23 12/25/23 History sevelamer carbonate 800 mg tablet 800 mg PO UD 11/27/23 12/25/23 History aspirin 81 mg capsule 81 mg PO DAILY #20 caps 12/05/23 12/25/23 Rx atorvastatin 40 mg tablet 40 mg PO DAILY #30 tabs 12/05/23 12/25/23 Rx clopidogrel 75 mg tablet (Plavix) 75 mg PO DAILY #20 tabs 12/05/23 12/25/23 Rx psyllium husk 3.4 gram/5.4 gram 1 tbsp PO DAILY #660 grams 12/05/23 12/25/23 Rx oral powder (Metamucil) vancomycin 125 mg capsule 125 mg PO QID #30 caps 12/05/23 12/25/23 Rx Past Med/Surg History Problem List (Updated 12/26/23 @ 05:35 by Trevon Morton MD) ESRD on hemodialysis (Acute) Coronavirus infection, unspecified (Acute) Pneumonia (Acute) Cerebellar stroke Acute UTI (urinary tract infection) (Acute) Pressure ulcer Fall (Acute) Skin tear of right upper extremity (Acute) Facial droop (Acute) Right sided weakness (Acute) Sacral wound Generalized weakness (Acute) Fall from standing (Acute) ESRD on dialysis (Acute) Ambulatory dysfunction (Acute) Discharge planning issues DVT prophylaxis Pleural effusion CKD (chronic kidney disease) (Acute) Anemia (Acute) Shakiness (Acute) Bilateral edema of lower extremity (Acute) Physical deconditioning ESRD on dialysis (Acute) Ascites Aortic stenosis 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 Palliative care by specialist Pancytopenia Clostridioides difficile carrier Vitamin D deficiency (Chronic) Recurrent urinary tract infection 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 aguirre Osteoarthritis Hyperlipidemia History of CVA (cerebrovascular accident) (2019) ~5years ago, woke up with weakness in her rt hand; L lacunar infarct; previously on plavix>no residual effects Hiatal hernia GERD without esophagitis Fatty liver Essential tremor MINOR IN HAND Diabetic retinopathy Chronic hyponatremia Chronic diastolic heart failure CAD (coronary artery disease) Anxiety Anemia of chronic disease GAVE (gastric antral vascular ectasia) (Acute) Medical History Right wrist pain Generalized weakness Fatigue CKD (chronic kidney disease) CKD (chronic kidney disease) Sepsis Encephalopathy UTI (urinary tract infection) Lower extremity cellulitis Pleural effusion, bilateral Elevated brain natriuretic peptide (BNP) level Elevated troponin I level Pericardial effusion Elevated brain natriuretic peptide (BNP) level Non-ST elevation ME (NSTEMI) Pancytopenia Hemorrhoids History of recent hospitalization GI BLEED/LOW BLOOD COUNT/HX BLOOD TRANSFUSION - MAY 2022 - [facility] ESRD on hemodialysis tuesdays, , and saturdays currently Poor historian History of GI bleed hx 08/2021, given transfusion-per medical record REASON FOR UPCOMING PROCEDURE Hx of atrial fibrillation, no current medication per medical report History of renal dialysis , AND SAT ([facility] [place]/ACROSS FROM [facility]) ACCESS SITE RIGHT SIDE OF CHEST/ ? DETAILS Resistant hypertension Diabetes mellitus, type 2 Hearing deficit no hearing aids Urinary urgency Secondary hyperparathyroidism of renal origin First degree AV block Hypertension Hypothyroidism Surgical History History of esophagogastroduodenoscopy (EGD) multiple---last 08/01/2022 @ [facility] 04/06/22 at [facility] with Dr. Mich Pacheco- EGD- Gastric antral vascular ectasia with bleeding, treated with argon plasma coagulation (APC); Few angioectasias in the duodenum, treated with APC S/P pericardiocentesis 08/2021, [facility], w/dr moura Hx of cardiac catheterization 08/2021, [facility] w/Dr. Moura for increased cardiac pressures; no stents History of tooth extraction History of colonoscopy H/O varicose vein ligation S/P trigger finger release S/P knee replacement RT/LEFT History of bladder suspension procedure X 2 S/P carpal tunnel release RT/LEFT History of back surgery (04/2010) X 2 S/P hysterectomy [place] Family History Father Alcohol abuse Heart disease Myocardial infarction Hypertension Sister Pancreatic cancer Diabetes Breast cancer Brother Diabetes Alcohol abuse Stroke Other Cancer No family history of adverse response to anesthesia Denies family history of Ovarian cancer Prostate cancer Colorectal cancer Social History Smoking Status: Never smoker Second Hand Exposure: No; Do You Dip or Chew Tobacco: No; Hx Alcohol Use: No Hx Substance Use: No Preferred Language: Korean Communication Ability: Effective Visual Impairment: No Limitations Hearing Ability: Normal Grades 1 Through 5 Teacher Required: No Beliefs That Will Affect Care: None marital status: Single Current Living Situation: Alone Current Living Situation Comment: 1 story home with ramp to enter home current occupational status: retired How many Children do You have: 2 Other Information That Helps Us Care for You: No Feels Safe at Home: Yes Safety Concerns: Feels Safe At This Time Childhood Exposure to Second-Hand Smoke: No Diet: regular Diet Comment: regular caffeine: Yes (Coffee x 2 cups per day.) during the past year weight has: remained stable Dental Care, Regularly: No Physical Activity Frequency: Does not Exercise Seatbelt Use: always Sunscreen Use: Yes Assistive Devices: Denture - Upper, Denture - Lower, Walker and Wheelchair Review of Systems Review of Systems: The patient denies chest pain, palpitations, lower extremity swelling, sore throat, fevers, chills, sweats, nausea, vomiting, diarrhea , constipation, abdominal pain, pelvic pain, blood in urine or stool, dysuria, urinary frequency or urgency, lightheadedness, dizziness, headache, memory loss, loss of consciousness, rash, abnormal bruising or bleeding, imbalance, focal or generalized weakness, numbness or tingling in arms or legs, generalized arthralgias or myalgias, back or neck pain, or night sweats. The review of systems is otherwise negative other than for that already noted above, and at least 10 systems have been reviewed. Physical Exam Physical Exam: The patient is awake, alert and oriented 3, well developed and well nourished, normocephalic and atraumatic, lying in bed and in no acute distress. HEENT--PERRL, EOMI, mucous membranes and oropharynx normal Neck--supple. No JVD. No bruits. Thyroid normal, trachea midline, no adenopathy. Heart--normal S1 and S2. No murmurs, rubs or gallops. Lungs--clear bilaterally, no respiratory distress, no accessory muscle use. Abdomen--normal bowel sounds and soft. Nontender. Nondistended, no hernias or masses, no organomegaly. Extremities-- 1+ bilateral pretibial pitting edema. Dermatologic--normal skin turgor, normal color, no abnormal lymph nodes, no rash. Neurologic--cranial nerves II through XII grossly intact. Rheumatologic--limited exam. Psychiatric--normal affect. Results & Data Results & Data Vital Signs (Past 12 Hours) Vital Signs Temp Pulse Pulse Resp BP BP Pulse Ox 12/25/23 21:22 89 20 132/90 93 12/25/23 19:50 12/25/23 19:50 98 12/25/23 19:33 74 12/25/23 19:32 98 12/25/23 19:29 80 18 137/68 98 12/25/23 18:15 36.5 C 84 24 125/54 L 94 O2 Del Method 12/25/23 21:22 Room Air 12/25/23 19:50 Room Air 12/25/23 19:50 Room Air 12/25/23 19:33 12/25/23 19:32 Room Air 12/25/23 19:29 Room Air 12/25/23 18:15 Room Air Laboratory Results Laboratory Results WBC 4.50 K/ul (4.8-10.8) L 12/25/23 19:00 RBC 2.92 M/uL (4.20-5.40) L 12/25/23 19:00 Hgb 8.1 g/dl (12.0-16.0) L 12/25/23 19:00 Hct 26.2 % (37.0-47.0) L 12/25/23 19:00 MCV 89.7 fL (80.0-100.0) 12/25/23 19:00 MCH 27.7 pg (25.0-34.0) 12/25/23 19:00 MCHC 30.9 g/dL (32.0-36.0) L 12/25/23 19:00 RDW Std Deviation 55.3 fL (36.4-46.3) H 12/25/23 19:00 RDW Coeff of Irasema 17.1 % (11.5-14.5) H 12/25/23 19:00 Plt Count 174 K/uL (130-400) 12/25/23 19:00 MPV 10.8 fL (9.4-12.4) 12/25/23 19:00 Immature Gran % (Auto) 0.4 % 12/25/23 19:00 Neut % (Auto) 85.1 % 12/25/23 19:00 Lymph % (Auto) 6.4 % 12/25/23 19:00 [place] % (Auto) 6.7 % 12/25/23 19:00 Eos % (Auto) 0.7 % 12/25/23 19:00 Baso % (Auto) 0.7 % 12/25/23 19:00 Neut # (Auto) 3.83 K/uL (1.40-6.50) 12/25/23 19:00 Lymph # (Auto) 0.29 K/uL (1.20-3.40) L 12/25/23 19:00 [place] # (Auto) 0.30 K/uL (0.11-0.59) 12/25/23 19:00 Eos # (Auto) 0.03 K/uL (0.00-0.50) 12/25/23 19:00 Baso # (Auto) 0.03 K/uL (0.00-0.20) 12/25/23 19:00 Immature Gran # (Auto) 0.02 K/uL (0.01-0.20) 12/25/23 19:00 Sodium 137 mmol/L (136-145) 12/25/23 20:05 Potassium 3.9 mmol/L (3.5-5.1) 12/25/23 20:05 Chloride 99 mmol/L (98-107) 12/25/23 19:00 Carbon Dioxide 28 mmol/L (21-32) 12/25/23 19:00 Anion Gap TNP 12/25/23 19:00 BUN 35 mg/dl (6-23) H 12/25/23 19:00 Creatinine 3.05 mg/dl (0.6-1.2) H 12/25/23 19:00 Est Cr Clr Drug Dosing 10.8 ml/min 12/25/23 19:00 eGFR 14.48 12/25/23 19:00 BUN/Creatinine Ratio 11.5 (10-20) 12/25/23 19:00 Glucose 131 mg/dl (70-99(Fasting)) H 12/25/23 19:00 Calcium 7.7 mg/dl (8.6-10.3) L 12/25/23 19:00 Total Bilirubin 0.4 mg/dl (0.2-1.0) 12/25/23 19:00 AST 24 U/L (13-39) 12/25/23 20:05 ALT 15 U/L (7-52) 12/25/23 19:00 Alkaline Phosphatase 300 U/L (34-104) H 12/25/23 19:00 B-Natriuretic Peptide 924 pg/ml (0-100) H 12/25/23 19:00 Total Protein 6.3 gm/dl (6.0-8.3) 12/25/23 19:00 Albumin 2.9 gm/dl (3.4-5.0) L 12/25/23 19:00 Globulin 3.4 gm/dl (2.5-4.0) 12/25/23 19:00 Albumin/Globulin Ratio 0.9 (0.9-2) 12/25/23 19:00 Procalcitonin 0.83 ng/ml (0-0.5) H 12/25/23 20:05 Nasal Screen MRSA (PCR) Negative (Negative) 12/25/23 20:47 Adenovirus (PCR) Not Detected (NotDetected) 12/25/23 19:00 B. pertussis DNA (PCR) Not Detected (NotDetected) 12/25/23 19:00 B.parapertussis DNA PCR Not Detected (NotDetected) 12/25/23 19:00 C. pneumoniae DNA (PCR) Not Detected (NotDetected) 12/25/23 19:00 Coronavirus OC43 (PCR) DETECTED (NotDetected) A 12/25/23 19:00 Coronavirus HKU1 (PCR) Not Detected (NotDetected) 12/25/23 19:00 Coronavirus 229E (PCR) Not Detected (NotDetected) 12/25/23 19:00 SARS-CoV-2 (PCR) Not Detected (NotDetected) 12/25/23 19:00 Coronavirus NL63 (PCR) Not Detected (NotDetected) 12/25/23 19:00 Human Metapneumovir PCR Not Detected (NotDetected) 12/25/23 19:00 Influenza Type A (PCR) Not Detected (NotDetected) 12/25/23 19:00 Influenza Type B (PCR) Not Detected (NotDetected) 12/25/23 19:00 M. pneumoniae (PCR) Not Detected (NotDetected) 12/25/23 19:00 Parainfluenza 1 (PCR) Not Detected (NotDetected) 12/25/23 19:00 Parainfluenza 2 (PCR) Not Detected (NotDetected) 12/25/23 19:00 Parainfluenza 3 (PCR) Not Detected (NotDetected) 12/25/23 19:00 Parainfluenza 4 (PCR) Not Detected (NotDetected) 12/25/23 19:00 RSV (PCR) Not Detected (NotDetected) 12/25/23 19:00 Entero/Rhino (PCR) Not Detected (NotDetected) 12/25/23 19:00 Code Status & VTE Plan Code Status DNR/DNI VTE Prophylaxis Plan VTE Prophylaxis will be ordered: Yes PG Care Time/CCT Total # of Minutes Spent Total Time Spent with Patient: Total time spent is greater than 50% in coordination of care (as documented) at patient's floor/unit and/or counseling patient: Coding Level of Care Code 06557 INT INP/OBS CARE 3/75MIN Diagnoses ESRD on hemodialysis N18.6; Z99.2 Coronavirus infection, unspecified B34.2 Pleural effusion J90 Pneumonia J18.9 Laterality: right Lung location: middle lobe of lung Pneumonia type: due to unspecified organism Ambulatory dysfunction R26.2 Physical deconditioning R53.81 Clostridioides difficile carrier Z22.1 Diabetes mellitus type 2 with complications E11.8 (HFpEF) heart failure with preserved ejection fraction I50.30 (4) Pneumonia Laterality: right Lung location: middle lobe of lung Pneumonia type: due to unspecified organism Qualified Code(s): J18.9 - Pneumonia, unspecified organism
[2023-12-25] MEDS: CHERRY SYRUP 5 ML UDP PO STA (22:31)
[2023-12-25] MEDS: VANCOMYCIN HCL 125 MG/2.5ML SOLN PO STA (22:31)
[2023-12-26] MEDS ORDERED: ONDANSETRON INJ 2 MG/ML 2 ML VIAL IV PRN (00:07)
[2023-12-26] MEDS ORDERED: NYSTATIN POWDER 15GM BTL EXT PRN (01:14)
[2023-12-26] MEDS ORDERED: TRIAMCINOLONE ACET 0.5% CR 15 GM TUBE TOP PRN (01:14)
[2023-12-26] MEDS: CHERRY SYRUP 5 ML UDP PO SCH ×2 (05:33→13:23)
[2023-12-26] MEDS: VANCOMYCIN HCL 125 MG/2.5ML SOLN PO SCH ×2 (05:33→13:23)
[2023-12-26] MEDS: PIPERACILLIN/TAZOBACTAM 4.5 GM/100 ML BAG IV SCH (05:34)
[2023-12-26] MEDS: LEVOTHYROXINE SODIUM 150 MCG TABLET PO SCH (05:34)
[2023-12-26 06:22] LABS: Basophils # (auto) 0.01 K/uL (0.00-0.20); Basophils % (auto) 0.3 %; Hematocrit (blood only) 24.8 % (37.0-47.0); Hemoglobin 7.6 g/dl (12.0-16.0); Immature Granulocytes # (auto) 0.01 K/uL (0.01-0.20); Immature Granulocytes % (auto) 0.3 %; Lymphocytes # (auto) 0.23 K/uL (1.20-3.40); Lymphocytes % (auto) 5.9 %; Mean Corpuscular Hemoglobin 27.4 pg (25.0-34.0); Mean Corpuscular Hgb Conc 30.6 g/dL (32.0-36.0); Mean Corpuscular Volume 89.5 fL (80.0-100.0); Mean Platelet Volume 11.1 fL (9.4-12.4); Monocytes # (auto) 0.19 K/uL (0.11-0.59); Monocytes % (auto) 4.9 %; Neutrophils # (auto) 3.47 K/uL (1.40-6.50); Neutrophils % (auto) 88.6 %; Platelet Count 137 K/uL (130-400); RDW Coefficient of Variation 16.8 % (11.5-14.5); RDW Standard Deviation 55.3 fL (36.4-46.3); Red Blood Count 2.77 M/uL (4.20-5.40); White Blood Count 3.91 K/ul (4.8-10.8)
[2023-12-26 06:49] LABS: Ovalocytes 1+; Polychromasia 1+
[2023-12-26 06:54] LABS: Albumin Level 2.7 gm/dl (3.4-5.0); BUN Creatinine Ratio 11.5 (10-20); Bilirubin,Total 0.4 mg/dl (0.2-1.0); Calcium 7.4 mg/dl (8.6-10.3); Creatinine Clr Calc Pharmacy 9.2 ml/min; Globulin 2.8 gm/dl (2.5-4.0); Magnesium 1.9 mg/dl (1.7-2.4); Potassium 4.4 mmol/L (3.5-5.1); Total Protein 5.5 gm/dl (6.0-8.3)
--- NOTE | 2023-12-26 07:02 | XRay Report ---
SINGLE VIEW CHEST CLINICAL HISTORY: Cough and dyspnea FINDINGS: 2 AP, portable, upright chest radiographs are compared to study dated 11/30/2023. A right-si ded central venous catheter is unchanged in position. The heart is enlarged noting atherosclerotic ca lcification of the thoracic aorta. There is pulmonary vascular congestion with interstitial edema. Th ere are layering pleural effusions with dependent consolidation. The left pleural effusion appears to be at least partially loculated. No pneumothorax is seen. The bony thorax is grossly intact. Fusion hardware is seen at the thoracolumbar junction. Advanced arthritic change is noted in the shoulders. IMPRESSION: 1. Cardiomegaly with evidence of congestive failure and pulmonary edema. Radiographic follow-up to re solution is recommended. 2. Layering pleural effusions with bibasilar consolidation. ACT 112: Negative or not required by law. Electronically signed by: Eulogio Gaspar M.D. 12/26/2023 7:01 AM
[2023-12-26] MEDS: ALBUT/IPRATROP 3MG/0.5MG NEB 3 ML VIAL NEB SCH (07:10)
--- OUTSIDE RECORDS SUMMARY | 2023-12-26 07:14 | External Medical Summary ---
Author Name Unknown Address Unknown Organization [id number]:[facility] [place] [address] Laboratory Report Ordering Provider Test Date Status THERESA CEDILLO 12/20/2023 06:23:27 Final Observation Date Value Abnormality Reference (Units ) Status WBC, Total 12/20/2023 06:23:27 4.99 4.00-10.8 0 (K/uL) Final RBC 12/20/2023 06:23:27 2.46 3.85-5.15 (M/uL) Final Hemoglobin 12/20/2023 06:23:27 6.8 Below low normal 12 .0-15.3 (g/dL) Final HCT 12/20/2023 06:23:27 22.9 Below low normal 36. 0-45.2 (%) Final MCV 12/20/2023 06:23:27 93.1 81.5-97.5 (fL) Final MCH 12/20/2023 06:23:27 27.6 27.0-34.0 (pg) Final MCHC 12/20/2023 06:23:27 29.7 32.0-36.0 (g/dL) Final RDW 12/20/2023 06:23:27 17.4 11.5-15.5 (%) Final Platelets 12/20/2023 06:23:27 236 140-400 (K /uL) Final MPV 12/20/2023 06:23:27 10.7 6.6-11.1 ( fL) Final Performing Location [facility] [place] [address]
--- OUTSIDE RECORDS SUMMARY | 2023-12-26 07:15 | External Medical Summary ---
Author Name Unknown Address Unknown Organization [id number]:[facility] [place] [address] Laboratory Report Ordering Provider Test Date Status LIZ CHILDS 12/06/2023 06:57:24 Final Observation Date Value Abnormality Reference (Units ) Status WBC, Total 12/06/2023 06:57:24 7.16 4.00-10.8 0 (K/uL) Final RBC 12/06/2023 06:57:24 3.00 3.85-5.15 (M/uL) Final Hemoglobin 12/06/2023 06:57:24 8.5 Below low normal 12 .0-15.3 (g/dL) Final HCT 12/06/2023 06:57:24 28.0 Below low normal 36. 0-45.2 (%) Final MCV 12/06/2023 06:57:24 93.3 81.5-97.5 (fL) Final MCH 12/06/2023 06:57:24 28.3 27.0-34.0 (pg) Final MCHC 12/06/2023 06:57:24 30.4 32.0-36.0 (g/dL) Final RDW 12/06/2023 06:57:24 16.3 11.5-15.5 (%) Final Platelets 12/06/2023 06:57:24 213 140-400 (K /uL) Final MPV 12/06/2023 06:57:24 10.9 6.6-11.1 ( fL) Final Performing Location [facility] [place] [place] [address]
--- OUTSIDE RECORDS SUMMARY | 2023-12-26 07:15 | External Medical Summary ---
Author Name Unknown Address Unknown Organization [id number]:[facility] [place] - [address] [place] [address] Laboratory Report Ordering Provider Test Date Status MARIA TERESA ARROYO 12/06/2023 06:57:24 Final Observation Date Value Abnormality Reference (Units ) Status Iron 12/06/2023 06:57:24 32 Below low normal 33-151 (ug/dL) Final Iron-binding capacity 12/06/2023 06:57:24 201 Below low normal 250-425 (ug/dL) Final Transferrin Sat % 12/06/2023 06:57:24 16 15-55 (%) Final Performing Location [facility] [place] - [address] [place] [address]
--- OUTSIDE RECORDS SUMMARY | 2023-12-26 07:15 | External Medical Summary ---
Author Name Unknown Address Unknown Organization [id number]:[facility] [place] [address] Laboratory Report Ordering Provider Test Date Status THERESA CEDILLO 12/19/2023 06:31:01 Final Observation Date Value Abnormality Reference (Units ) Status WBC, Total 12/19/2023 06:31:01 5.71 4.00-10.8 0 (K/uL) Final RBC 12/19/2023 06:31:01 2.49 3.85-5.15 (M/uL) Final Hemoglobin 12/19/2023 06:31:01 7.0 Below low normal 12 .0-15.3 (g/dL) Final HCT 12/19/2023 06:31:01 23.1 Below low normal 36. 0-45.2 (%) Final MCV 12/19/2023 06:31:01 92.8 81.5-97.5 (fL) Final MCH 12/19/2023 06:31:01 28.1 27.0-34.0 (pg) Final MCHC 12/19/2023 06:31:01 30.3 32.0-36.0 (g/dL) Final RDW 12/19/2023 06:31:01 17.4 11.5-15.5 (%) Final Platelets 12/19/2023 06:31:01 242 140-400 (K /uL) Final MPV 12/19/2023 06:31:01 10.7 6.6-11.1 ( fL) Final Performing Location [facility] [place] [address]
--- OUTSIDE RECORDS SUMMARY | 2023-12-26 07:15 | External Medical Summary ---
Author Name Unknown Address Unknown Organization K09:[facility] [place] [address] Laboratory Report Ordering Provider Test Date Status MARIA TERESA ARROYO 12/06/2023 06:57:24 Final Observation Date Value Abnormality Reference (Units ) Status Phosphate 12/06/2023 06:57:24 4.7 2.5-4.8 (m g/dL) Final Performing Location [facility] [place] [address]
--- OUTSIDE RECORDS SUMMARY | 2023-12-26 07:15 | External Medical Summary ---
Author Name Unknown Address Unknown Organization [id number]:[facility] - [address] [facility] Laboratory Report Ordering Provider Test Date Status LIZ CHILDS 12/13/2023 11:57:35 Final Observation Date Value Abnormality Reference (Units) Status Bacteria identified in Specimen by Culture 12/13/2023 11:57:35 No significant growth Final Test: Culture, Urine, Quanti tative
Specimen Type: Urine
Specimen Date: 12/13/2023 1157
Result Date: 12/14/2023 1207
Result Status: Final result
Resulting Lab: [facility]
[address]
[place] [address]

CULTURE

No significant growth

null Performing Location [facility] [facility] [address] [facility] [address]
--- OUTSIDE RECORDS SUMMARY | 2023-12-26 07:15 | External Medical Summary ---
Author Name Unknown Address Unknown Organization [id number]:[facility] [place] - [address] [place] [address] Laboratory Report Ordering Provider Test Date Status JOCELYNE ARROYOE 12/06/2023 06:57:24 Final Observation Date Value Abnormality Reference (Units ) Status Ferritin 12/06/2023 06:57:24 214 Above high normal 13 -150 (ng/mL) Final Postmenopausal women have hi gher ferritin levels than pre-menopausal women. The above reference interval is based on pre-menopausal women. Performing Location [facility] - [address] [place] [address]
--- OUTSIDE RECORDS SUMMARY | 2023-12-26 07:15 | External Medical Summary ---
Author Name Unknown Address Unknown Organization [id number][facility] [place] [address] Laboratory Report Ordering Provider Test Date Status LIZ CHILDS 12/20/2023 06:23:27 Final Observation Date Value Abnormality Reference (Units ) Status BUN 12/20/2023 06:23:27 43 Above high normal 6-20 (mg/dL) Final Creatinine 12/20/2023 06:23:27 2.7 Above high normal 0.5-1.0 (mg/dL) Final Glomerular filtration rate/1.73 sq M.predicted [Volume Rate/Area] in Serum, Plasma or Blood by Creatinine-based formula (CKD-EPI) 12/20/2023 06:23:27 16 Below low normal >=60 (mL/min) Final eGFR is calculated based on the CKD-EPI 2020 equation. Sodium 12/20/2023 06:23:27 136 135-146 (m mol/L) Final Potassium 12/20/2023 06:23:27 4.1 3.5-5.1 (m mol/L) Final Cl 12/20/2023 06:23:27 95 Below low normal 98- 107 (mmol/L) Final CO2 12/20/2023 06:23:27 27 22-32 (mmo l/L) Final Anion gap 12/20/2023 06:23:27 14 7-15 (mmol /L) Final Glucose 12/20/2023 06:23:27 101 70-120 (mg /dL) Final Calcium 12/20/2023 06:23:27 7.2 Below low normal 8.4 -10.2 (mg/dL) Final Performing Location [facility] [place] [address]
--- OUTSIDE RECORDS SUMMARY | 2023-12-26 07:15 | External Medical Summary ---
Author Name Unknown Address Unknown Organization [id number]:[facility] [place] [address] Laboratory Report Ordering Provider Test Date Status LIZ CHILDS 12/13/2023 05:56:02 Final Observation Date Value Abnormality Reference (Units ) Status BUN 12/13/2023 05:56:02 52 Above high normal 6-20 (mg/dL) Final Creatinine 12/13/2023 05:56:02 3.1 Above high normal 0.5-1.0 (mg/dL) Final Glomerular filtration rate/1.73 sq M.predicted [Volume Rate/Area] in Serum, Plasma or Blood by Creatinine-based formula (CKD-EPI) 12/13/2023 05:56:02 14 Below low normal >=60 (mL/min) Final eGFR is calculated based on the CKD-EPI 2020 equation. Sodium 12/13/2023 05:56:02 135 135-146 (m mol/L) Final Potassium 12/13/2023 05:56:02 4.1 3.5-5.1 (m mol/L) Final Cl 12/13/2023 05:56:02 95 Below low normal 98- 107 (mmol/L) Final CO2 12/13/2023 05:56:02 28 22-32 (mmo l/L) Final Anion gap 12/13/2023 05:56:02 12 7-15 (mmol /L) Final Glucose 12/13/2023 05:56:02 145 Above high normal 70 -120 (mg/dL) Final Calcium 12/13/2023 05:56:02 7.5 Below low normal 8.4 -10.2 (mg/dL) Final Performing Location [facility] [place] [address]
--- OUTSIDE RECORDS SUMMARY | 2023-12-26 07:15 | External Medical Summary ---
Author Name Unknown Address Unknown Organization K09:[facility] [place] [address] Laboratory Report Ordering Provider Test Date Status THERESA CEDILLO 12/13/2023 07:53:42 Final Observation Date Value Abnormality Reference (Units ) Status Color of Urine by Auto 12/13/2023 07:53:42 Brown Final Clarity, Urine 12/13/2023 07:53:42 Turbid Final Glucose [Mass/volume] in Urine by Automated test strip 12/13/2023 07:53:42 100 (mg/dL) Final Bilirubin.total [Presence] in Urine by Automated test strip 12/13/2023 07:53:42 Small Final Ketones [Mass/volume] in Urine by Automated test strip 12/13/2023 07:53:42 Trace (mg/dL) Final Specific gravity, Urine 12/13/2023 07:53:42 1.025 1.003-1.030 Final Hemoglobin [Presence] in Urine by Automated test strip 12/13/2023 07:53:42 Large Final pH, Urine 12/13/2023 07:53:42 6.5 5.0-7.5 (Units) Final Protein [Mass/volume] in Urine by Automated test strip 12/13/2023 07:53:42 >=300 (mg/dL) Final Urobilinogen [Mass/volume] in Urine by Automated test strip 12/13/2023 07:53:42 0.2 (mg/dL) Final Nitrite [Presence] in Urine by Automated test strip 12/13/2023 07:53:42 Negative Negative Final Leukocyte esterase [Presence] in Urine by Automated test strip 12/13/2023 07:53:42 Large Abnormal Negative Final RBC, Urine 12/13/2023 07:53:42 50+ Abnormal 0-2 (/HPF) Final WBC, Urine 12/13/2023 07:53:42 50+ Abnormal 0-2 (/HPF) Final Bacteria [#/area] in Urine sediment by Microscopy high power field 12/13/2023 07:53:42 >200 Abnormal 0-25 (/HPF) Final Performing Location [facility] [place] [address]
--- OUTSIDE RECORDS SUMMARY | 2023-12-26 07:15 | External Medical Summary ---
Author Name Unknown Address Unknown Organization K09[facility] [place] [address] Laboratory Report Ordering Provider Test Date Status LIZ CHILDS 12/06/2023 06:57:24 Final Observation Date Value Abnormality Reference (Units ) Status BUN 12/06/2023 06:57:24 72 Above high normal 6-20 (mg/dL) Final Creatinine 12/06/2023 06:57:24 4.6 Above high normal 0.5-1.0 (mg/dL) Final Glomerular filtration rate/1.73 sq M.predicted [Volume Rate/Area] in Serum, Plasma or Blood by Creatinine-based formula (CKD-EPI) 12/06/2023 06:57:24 9 Below low normal >=60 (mL/min) Final eGFR is calculated based on the CKD-EPI 2020 equation. Sodium 12/06/2023 06:57:24 134 Below low normal 135 -146 (mmol/L) Final Potassium 12/06/2023 06:57:24 4.3 3.5-5.1 (m mol/L) Final Cl 12/06/2023 06:57:24 97 Below low normal 98- 107 (mmol/L) Final CO2 12/06/2023 06:57:24 22 22-32 (mmo l/L) Final Anion gap 12/06/2023 06:57:24 15 7-15 (mmol /L) Final Glucose 12/06/2023 06:57:24 137 Above high normal 70 -120 (mg/dL) Final Calcium 12/06/2023 06:57:24 7.7 Below low normal 8.4 -10.2 (mg/dL) Final Performing Location [facility] [place] [address]
--- OUTSIDE RECORDS SUMMARY | 2023-12-26 07:15 | External Medical Summary ---
Author Name Unknown Address Unknown Organization K09:[facility] [place] [place] [address] Laboratory Report Ordering Provider Test Date Status LIZ CHILDS 12/13/2023 05:56:02 Final Observation Date Value Abnormality Reference (Units ) Status WBC, Total 12/13/2023 05:56:02 5.67 4.00-10.8 0 (K/uL) Final RBC 12/13/2023 05:56:02 2.46 3.85-5.15 (M/uL) Final Hemoglobin 12/13/2023 05:56:02 7.0 Below low normal 12 .0-15.3 (g/dL) Final HCT 12/13/2023 05:56:02 23.1 Below low normal 36. 0-45.2 (%) Final MCV 12/13/2023 05:56:02 93.9 81.5-97.5 (fL) Final MCH 12/13/2023 05:56:02 28.5 27.0-34.0 (pg) Final MCHC 12/13/2023 05:56:02 30.3 32.0-36.0 (g/dL) Final RDW 12/13/2023 05:56:02 17.6 11.5-15.5 (%) Final Platelets 12/13/2023 05:56:02 211 140-400 (K /uL) Final MPV 12/13/2023 05:56:02 10.9 6.6-11.1 ( fL) Final Performing Location [facility] [place] [place] [address]
--- OUTSIDE RECORDS SUMMARY | 2023-12-26 07:15 | External Medical Summary ---
Author Name Unknown Address Unknown Organization K09[facility] [place] [address] Laboratory Report Ordering Provider Test Date Status MARIA TERESA ARROYO 12/06/2023 06:57:24 Final Observation Date Value Abnormality Reference (Units ) Status Albumin 12/06/2023 06:57:24 2.7 Below low normal 3.8 -5.0 (g/dL) Final Performing Location [facility] [place] [address]
--- NOTE | 2023-12-26 08:17 | Hospitalist Progress Note ---
Date of Service December 26, 2023 Assessment & Plan (1) Coronavirus infection, unspecified: Plan: Presented with worsening shortness of breath, productive cough, and chest congestion x several days after recent hospital discharge 11/29-12/04 followed by [facility] rehab 12/04-12/19 - Coronavirus with secondary bacterial pneumonia > Respiratory BioFire positive for COVID OC43 > Chest x-ray on admission revealed evidence of congestive failure and pulmonary edema, layering pleural effusions with bibasilar consolidation > Nasal MRSA swab negative --> very high negative predictive value > Sputum culture and gram stain pending > Blood cultures pending - Continue dexamethasone 6 mg IV QAM - Continue Duonebs Q4HWA and Q2H PRN - Continue Zosyn 4.5 mg IV Q12H for secondary bacterial pneumonia - Continue Guaifenesin extended release 1200 mg PO BID - Follow pleural effusion and HFpEF improvement with dialysis (2) ESRD on hemodialysis: Plan: Outpatient HD schedule is Sunday, , Sunday - Continue acetate, calcium carbonate, cholecalciferol, furosemide, multivitamin with folic acid, Sevelamer - Per nephrology, 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 - C diff toxin negative, gene positive noted on her last admission - PO Vancomycin 125 mg QID started 12/02 - Per review of most recent hospital discharge summary, PO Vanco should have been completed on 12/13/23, however, it appears she has been taking it until this admission - PO Vanco discontinued 12/25 - Monitor for signs of C diff infection while on antibiotics and in the hospital setting Plan Discontinued oral vancomycin CODE STATUS: DNR/DNI Admission and Anticipated Discharge Date Admission Date: December 25, 2023 Supervising Physician Co-Signing Physician Notes Attending Attestation - Chart reviewed, care plan d/w PA Sharita Burrows. I agree w/ the dixon components of her documentation with the following addition - * pancytopenia - etiology? viral suppression from coronavirus infection? Other plans per Ms Burrows. Appreciate nephrology assistance for HD needs. Davian Renteria MD Subjective Patient seen and evaluated in bedside chair. She reports continued shortness of breath on exertion, as well as a productive cough. She reports that she is definitely more weak than her baseline, while also acknowledging that her baseline status has been decreasing. She made multiple comments regarding wanting to stop treatments, stop hospitalizations, and stop rehab placements. When I broached the subject about prioritizing comfort over treatments, she stated "I have to keep doing this for my daughter. My daughter thinks I am going to live forever." She states she will continue treatments for her family. Water Reuse Program Manager did speak with patient today to provide emotional support. Of note, RN reported possible vaginal bleeding. RN reports some excoriations near her groin, but it appeared like more blood than just from her excoriations. Unfortunately, patient was about to be taken to her dialysis treatment so this could not be further examined at that time. Will evaluate tomorrow. No additional complaints or concerns at this time. Physical Exam Physical Exam: General: No acute distress, nondiaphoretic, well-developed, well-nourished. Skin: The skin was without rashes, erythema, or bruising. 1+ pitting edema on lower extremities bilaterally. Cardiac: Irregularly irregular without murmurs gallops or rubs. Pulm: Diminished breath sounds at bases bilaterally, rales noted throughout lung phan L>R. No respiratory distress. 92% on room air. Abdominal: Soft, nontender, nondistended. Bowel sounds present. Neuro: A&O x3. No focal neurological deficits. Results & Data Results & Data Vital Signs (Past 12 Hours) Vital Signs Temp Pulse Resp BP Pulse Ox Pulse Ox O2 Del Method 12/26/23 07:54 97.9 F 81 18 131/61 93 Room Air 12/26/23 07:13 75 20 93 Room Air 12/26/23 03:20 98.1 F 79 21 129/72 94 Room Air 12/26/23 00:47 98.2 F 89 16 129/71 93 Room Air 10/23/24 00:07 93 12/25/23 23:57 Room Air 12/25/23 23:00 91 H 16 136/64 93 Room Air 12/25/23 21:22 89 20 132/90 93 Room Air O2 Del Method 12/26/23 07:54 12/26/23 07:13 12/26/23 03:20 12/26/23 00:47 12/26/23 00:07 Room Air 12/25/23 23:57 12/25/23 23:00 12/25/23 21:22 Laboratory Results Reviewed CBC Reviewed chemistries Reviewed biofire Diagnostic Findings Reviewed CXR FINDINGS: 2 AP, portable, upright chest radiographs are compared to study dated 11/30/2023. A right-sided central venous catheter is unchanged in position. The heart is enlarged noting atherosclerotic calcification of the thoracic aorta. There is pulmonary vascular congestion with interstitial edema. There are layering pleural effusions with dependent consolidation. The left pleural effusion appears to be at least partially loculated. No pneumothorax is seen. The bony thorax is grossly intact. Fusion hardware is seen at the thoracolumbar junction. Advanced arthritic change is noted in the shoulders. IMPRESSION: 1. Cardiomegaly with evidence of congestive failure and pulmonary edema. Radiographic follow-up to resolution is recommended. 2. Layering pleural effusions with bibasilar consolidation. PG Care Time/CCT Total # of Minutes Spent Total Time Spent with Patient: Total time spent is greater than 50% in coordination of care (as documented) at patient's floor/unit and/or counseling patient: Coding Level of Care Code 89615 SUB INP/OBS CARE 2/35MIN Diagnoses Coronavirus infection, unspecified B34.2 ESRD on hemodialysis N18.6; Z99.2 Physical deconditioning R53.81 Clostridioides difficile carrier Z22.1
[2023-12-26] MEDS: CHOLECALCIFEROL 25 MCG (1000 UNITS) TAB PO SCH (08:20)
[2023-12-26] MEDS: rOPINIRole HCL 0.25 MG TABLET PO SCH ×2 (08:21→20:20)
[2023-12-26] MEDS: dexAMETHasone 6 MG in SYRINGE 0 ML IV SCH (08:21)
[2023-12-26] MEDS: NEPHROCAPS PO SCH (08:21)
[2023-12-26] MEDS: CYANOCOBALAMIN (B-12) 500 MCG TABLET PO SCH (08:22)
[2023-12-26] MEDS: BETHANECHOL CHL 25 MG TAB PO SCH (08:22)
[2023-12-26] MEDS: SERTRALINE HCL 50 MG TABLET PO SCH (08:22)
[2023-12-26] MEDS: ASPIRIN 81 MG ECTAB PO SCH (08:22)
[2023-12-26] MEDS: SEVELAMER CARBONATE 800 MG TAB PO SCH (08:22)
[2023-12-26] MEDS: CALCIUM 600MG + VIT D 400 IU TAB PO SCH (08:22)
[2023-12-26] MEDS: FAMOTIDINE 40 MG TABLET PO SCH (08:23)
[2023-12-26] MEDS: CLOPIDOGREL BISULFATE 75 MG TAB PO SCH (08:23)
[2023-12-26] MEDS: PANTOprazole 40 MG TAB PO SCH (08:23)
[2023-12-26] MEDS: ATORVASTATIN 40 MG TAB PO SCH (08:23)
[2023-12-26] MEDS: FUROSEMIDE 80 MG TAB PO SCH (08:23)
[2023-12-26] MEDS: guaiFENesin 600 MG TABCR PO SCH (08:24)
[2023-12-26] MEDS: HEPARIN SOD 5,000 UNIT/0.5 ML VIAL SQ SCH (08:27)
--- NOTE | 2023-12-26 08:44 | Nephrology Consultation ---
Date of Consultation December 26, 2023 Assessment & Plan (1) ESRD on hemodialysis: Sully has persistent volume overload despite HD yesterday. Orders for a short HD treatment today have been entered into the EHR and communicated to the transplant coordinator. 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 Outpatient HD: [facility] TTS, 3hr, 3K 2.5Ca F-180NR, EDW 60.5 kg. Heparin free HD. TDC functioning well. Maintain 1.2 L daily fluid restriction. Sevelamer QAC. Medications are appropriately dosed for IHD. I will plan another HD treatment tomorrow. (2) Pneumonia: Remains on Zosyn. Vancomycin dosed yesterday evening. Suggest repeat vanco level prior to HD tomorrow, if planning to continue abx. (3) Coronavirus infection, unspecified: Droplet precautions. (4) Anemia: Hgb 7.6 this AM. Melena reported. IV iron and Epogen will be provided with HD. Close monitoring provided. Transfusion PRN. (5) Sacral wound: (6) GAVE (gastric antral vascular ectasia): RN reported melena this AM. Sully states that her stool has not changed but remains loose (~2 x per day). She is not maintained on anticoagulation. (7) Atrial fibrillation, permanent: (8) Aortic stenosis: (9) Frailty syndrome in geriatric patient: Multiple recent hospitalizations. Complex medical history. Concerning progressive frailty. Goals of care discussions are ongoing. History of Present Illness Reason for Consultation: ESRD on HD Requesting Physician: Davian Renteria MD Attending Physician: Davian Renteria MD History of Present Illness Sully Ray is an 83 year-old female with ESKD attributed to to CRS. She has been on HD since 08/23 and currently dialyzes TTS at [facility] under the care of Dr. Will (3hr, 180 optiflux, Qb 400/Qd 800, 3K 2.5Ca, EDW 60.5 kg). Sully dialyzes via a RI TDC. She completed treatment yesterday with net UF 2 L (pre tx 65.4 kg and post 63.5 kg). Medical history is significant for severe , mitral stenosis, R heart failure, permanent atrial fibrillation (not on anticoagulation due to GI bleeds), GAVE w/ recurrent UGI bleed requiring frequent blood transfusion, CVA, AODM, hypothyroidism. Sully presented to the ER yesterday with progressive weakness and chest congestion. She was diagnosed with coronavirus + superimposed bacterial pneumonia. Vancomycin and Zosyn were provided. She is receiving dexamethasone. Imaging also demonstrating pulmonary edema. She recently returned home from [facility] (12/04-12/20/2023) following an admission to [facility] from 11/29-12/05/2023. MRI demonstrating a subacute right cerebellar ischemic infarct during her recent admission. Sully reported noticing weakness in her right arm. Sully was recently admitted to the hospital from November 25- s/p fall at home. She has known sacral breakdown. She lives at home with assistance from home health services and her daughter. She acknowledges progressive weakness and frailty but has been determined to maintain her independence and continue to live at home with her cat. She often makes comments about stopping treatments but states that she is resolved to continue so she can spend time with her cat and with her family. She states "I don't know what they would do without me." She remains adamant that she would not consider SNF placement. Her daughter is home with a viral syndrome. Allergies Allergy/AdvReac Type Severity Reaction Status Date / Time sulfamethoxazole AdvReac Unknown REMOTE Verified 12/20/23 08:19 [From Bactrim] HX/PT NOT SURE REACTION trimethoprim [From Bactrim] AdvReac Unknown REMOTE Verified 12/20/23 08:19 HX/PT NOT SURE REACTION Home Medications Medication Instructions Recorded Confirmed Type cholecalciferol (vitamin D3) 25 2,000 unit PO QAM 05/29/18 12/25/23 History mcg (1,000 unit) capsule (Vitamin D3) cyanocobalamin (vitamin B-12) 1,000 mcg PO QAM 11/12/20 12/25/23 History 1,000 mcg tablet (Vitamin B-12) bethanechol chloride 50 mg tablet 50 mg PO BID #180 tabs 04/19/21 12/25/23 Rx diaper,brief,adult,disposable #150 ea 12/07/21 12/25/23 Rx (Fitted Briefs X-Large) loperamide 2 mg capsule 2 mg PO UD PRN Diarrhea 05/29/22 12/25/23 History estradiol 0.01% (0.1 mg/gram) 1 applic vaginal 3XWK PRN ONLY 05/30/22 12/25/23 History vaginal cream WHEN BURNING nystatin 100,000 unit/gram topical 1 applic topical BID PRN IRRITATION 07/10/22 12/25/23 History powder furosemide 80 mg tablet 80 mg PO BID #180 tabs 05/28/23 12/25/23 Rx pantoprazole 40 mg tablet,delayed 40 mg PO BID #60 tabs 06/27/23 12/25/23 Rx release (Protonix) triamcinolone acetonide 0.5 % 1 applic topical BID PRN skin 07/03/23 12/25/23 Rx topical cream irritation #60 grams calcium acetate 667 mg tablet 667 mg PO UD 07/06/23 12/25/23 History calcium 600 mg (as 1 tab PO DAILY 07/23/23 12/25/23 History carbonate)-vitamin D3 10 mcg (400 unit) tablet (Calcium 600 + D(3)) omega-3 fatty acids 1,000 mg 1,000 mg PO DAILY 07/23/23 12/25/23 History capsule fluticasone propionate 50 1 spray intranasal DAILY #16 grams 08/16/23 12/25/23 Rx mcg/actuation nasal spray,suspension (Flonase Allergy Relief) dimethicone 1.3 % topical cream 1 applic topical DAILY PRN skin 08/25/23 12/25/23 History (Cavilon Durable Barrier) irritation methocarbamol 500 mg tablet 500 mg PO TID PRN muscle spasm #90 09/20/23 12/25/23 Rx tabs ropinirole 0.5 mg tablet 0.5 mg PO UD #90 tabs 09/20/23 12/25/23 Rx tramadol 50 mg tablet 50 mg PO BID PRN Pain #60 tabs 10/29/23 12/25/23 Rx prjdbxxlvazx-avekdpnl-rsuutoh-folic 1 tab PO DAILY 10/30/23 12/25/23 History acid 400 mcg-vit K1 20 mcg tablet sertraline 50 mg tablet 50 mg PO DAILY #30 tabs 11/12/23 12/25/23 Rx famotidine 40 mg tablet 40 mg PO BID #60 tabs 11/19/23 12/25/23 Rx levothyroxine 150 mcg tablet 150 mcg PO QAM 11/27/23 12/25/23 History sevelamer carbonate 800 mg tablet 800 mg PO UD 11/27/23 12/25/23 History aspirin 81 mg capsule 81 mg PO DAILY #20 caps 12/05/23 12/25/23 Rx atorvastatin 40 mg tablet 40 mg PO DAILY #30 tabs 12/05/23 12/25/23 Rx clopidogrel 75 mg tablet (Plavix) 75 mg PO DAILY #20 tabs 12/05/23 12/25/23 Rx psyllium husk 3.4 gram/5.4 gram 1 tbsp PO DAILY #660 grams 12/05/23 12/25/23 Rx oral powder (Metamucil) vancomycin 125 mg capsule 125 mg PO QID #30 caps 12/05/23 12/25/23 Rx Patient History Medical History Right wrist pain Generalized weakness Fatigue CKD (chronic kidney disease) CKD (chronic kidney disease) Sepsis Encephalopathy UTI (urinary tract infection) Lower extremity cellulitis Pleural effusion, bilateral Elevated brain natriuretic peptide (BNP) level Elevated troponin I level Pericardial effusion Elevated brain natriuretic peptide (BNP) level Non-ST elevation GA (NSTEMI) Pancytopenia Hemorrhoids History of recent hospitalization GI BLEED/LOW BLOOD COUNT/HX BLOOD TRANSFUSION - MAY 2022 - [facility] ESRD on hemodialysis tuesdays, , and saturdays currently Poor historian History of GI bleed hx 08/2021, given transfusion-per medical record REASON FOR UPCOMING PROCEDURE Hx of atrial fibrillation, no current medication per medical report History of renal dialysis , AND SAT ([facility] [place]OSS FROM [facility]) ACCESS SITE RIGHT SIDE OF CHEST/ ? DETAILS Resistant hypertension Diabetes mellitus, type 2 Hearing deficit no hearing aids Urinary urgency Secondary hyperparathyroidism of renal origin First degree AV block Hypertension Hypothyroidism Surgical History History of esophagogastroduodenoscopy (EGD) multiple---last 08/01/2022 @ [facility] 04/06/22 at [facility] with Dr. Mich Pacheco- EGD- Gastric antral vascular ectasia with bleeding, treated with argon plasma coagulation (APC); Few angioectasias in the duodenum, treated with APC S/P pericardiocentesis 08/2021, [place], w/dr moura Hx of cardiac catheterization 08/2021, [place] w/Dr. Moura for increased cardiac pressures; no stents History of tooth extraction History of colonoscopy H/O varicose vein ligation S/P trigger finger release S/P knee replacement RT/LEFT History of bladder suspension procedure X 2 S/P carpal tunnel release RT/LEFT History of back surgery (04/2010) X 2 S/P hysterectomy [place] Family History Father Alcohol abuse Heart disease Myocardial infarction Hypertension Sister Pancreatic cancer Diabetes Breast cancer Brother Diabetes Alcohol abuse Stroke Other Cancer No family history of adverse response to anesthesia Denies family history of Ovarian cancer Prostate cancer Colorectal cancer Social History Smoking Status: Never smoker Second Hand Exposure: No; Do You Dip or Chew Tobacco: No; Hx Alcohol Use: No Hx Substance Use: No Preferred Language: Burmese Communication Ability: Effective Visual Impairment: No Limitations Hearing Ability: Normal 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 Beliefs That Will Affect Care: None marital status: Single Current Living Situation: Alone Current Living Situation Comment: 1 story home with ramp to enter home current occupational status: retired How many Children do You have: 2 Other Information That Helps Us Care for You: No Feels Safe at Home: Yes Safety Concerns: Feels Safe At This Time Childhood Exposure to Second-Hand Smoke: No Diet: regular Diet Comment: regular caffeine: Yes (Coffee x 2 cups per day.) during the past year weight has: remained stable Dental Care, Regularly: No Physical Activity Frequency: Does not Exercise Seatbelt Use: always Sunscreen Use: Yes Assistive Devices: Denture - Upper, Denture - Lower, Walker and Wheelchair Review of Systems Review of Systems: All systems reviewed & are unremarkable except as noted in HPI & below Constitutional: + body aches, + fatigue, + malaise, + we akness and + weight loss; no fever and no chills Eyes: + dry eyes Ear, Nose, Mouth, Throat: no sore throat and no dysphagia Respiratory: + cough, + change in sputum and + dyspne a Gastrointestinal: + melena; no abdominal pain Genitourinary: no problem reported Physical Exam Constitutional: + ill appearing and + frail appearing Eyes: + anicteric sclerae; no conjunctival abn ormality ENMT: Mouth: + dry oral mucous membranes Neck: normal visual inspection and trachea midline RIJ TDC Respiratory: + cough and + tachypneic Auscultation : + rales and + rhonchi Cardiovascular: Rate/Rhythm: + irregularly irregular Heart Sounds: normal S1 and normal S2 Extremities: no edema (dependent edema) Musculoskeletal: Extremities: no cyanosis and no clubbing Skin: no jaundice Neurologic: Motor/Sensory: no tremor and no asterixis Psychiatric: Orientation: alert and oriented x 3 Results & Data Vital Signs (Past 12 Hours) Vital Signs Temp Pulse Resp BP Pulse Ox Pulse Ox O2 Del Method 12/26/23 07:54 36.6 C 81 18 131/61 93 Room Air 12/26/23 07:13 75 20 93 Room Air 12/26/23 03:20 36.7 C 79 21 129/72 94 Room Air 12/26/23 00:47 36.8 C 89 16 129/71 93 Room Air 12/26/23 00:07 93 12/25/23 23:57 Room Air 12/25/23 23:00 91 H 16 136/64 93 Room Air 12/25/23 21:22 89 20 132/90 93 Room Air O2 Del Method 12/26/23 07:54 12/26/23 07:13 12/26/23 03:20 12/26/23 00:47 12/26/23 00:07 Room Air 12/25/23 23:57 12/25/23 23:00 12/25/23 21:22 Laboratory Results Laboratory Results - last 24 hr 12/25/23 12/25/23 12/25/23 19:00 20:05 20:47 WBC 4.50 L RBC 2.92 L Hgb 8.1 L Hct 26.2 L MCV 89.7 MCH 27.7 MCHC 30.9 L RDW Std Deviation 55.3 H RDW Coeff of Irasema 17.1 H Plt Count 174 MPV 10.8 Immature Gran % (Auto) 0.4 Neut % (Auto) 85.1 Lymph % (Auto) 6.4 [place] % (Auto) 6.7 Eos % (Auto) 0.7 Baso % (Auto) 0.7 Neut # (Auto) 3.83 Lymph # (Auto) 0.29 L [place] # (Auto) 0.30 Eos # (Auto) 0.03 Baso # (Auto) 0.03 Immature Gran # (Auto) 0.02 Polychromasia Ovalocytes Sodium TNP 137 Potassium TNP 3.9 Chloride 99 Carbon Dioxide 28 Anion Gap TNP BUN 35 H Creatinine 3.05 H Est Cr Clr Drug Dosing 10.8 eGFR 14.48 BUN/Creatinine Ratio 11.5 Glucose 131 H POC Glucose Calcium 7.7 L Magnesium Total Bilirubin 0.4 AST TNP 24 ALT 15 Alkaline Phosphatase 300 H B-Natriuretic Peptide 924 H Total Protein 6.3 Albumin 2.9 L Globulin 3.4 Albumin/Globulin Ratio 0.9 Procalcitonin 0.83 H Nasal Screen MRSA (PCR) Negative Adenovirus (PCR) Not Detected B. pertussis DNA (PCR) Not Detected B.parapertussis DNA PCR Not Detected C. pneumoniae DNA (PCR) Not Detected Coronavirus OC43 (PCR) DETECTED A Coronavirus HKU1 (PCR) Not Detected Coronavirus 229E (PCR) Not Detected SARS-CoV-2 (PCR) Not Detected Coronavirus NL63 (PCR) Not Detected Human Metapneumovir PCR Not Detected Influenza Type A (PCR) Not Detected Influenza Type B (PCR) Not Detected M. pneumoniae (PCR) Not Detected Parainfluenza 1 (PCR) Not Detected Parainfluenza 2 (PCR) Not Detected Parainfluenza 3 (PCR) Not Detected Parainfluenza 4 (PCR) Not Detected RSV (PCR) Not Detected Entero/Rhino (PCR) Not Detected 12/26/23 12/26/23 06:00 07:37 WBC 3.91 L RBC 2.77 L Hgb 7.6 L Hct 24.8 L MCV 89.5 MCH 27.4 MCHC 30.6 L RDW Std Deviation 55.3 H RDW Coeff of Irasema 16.8 H Plt Count 137 MPV 11.1 Immature Gran % (Auto) 0.3 Neut % (Auto) 88.6 Lymph % (Auto) 5.9 Dundy % (Auto) 4.9 Eos % (Auto) 0.0 Baso % (Auto) 0.3 Neut # (Auto) 3.47 Lymph # (Auto) 0.23 L [place] # (Auto) 0.19 Eos # (Auto) 0.00 Baso # (Auto) 0.01 Immature Gran # (Auto) 0.01 Polychromasia 1+ Ovalocytes 1+ Sodium 138 Potassium 4.4 Chloride 99 Carbon Dioxide 29 Anion Gap 10 BUN 40 H Creatinine 3.47 H D Est Cr Clr Drug Dosing 9.2 eGFR 12.41 BUN/Creatinine Ratio 11.5 Glucose 179 H POC Glucose 174 H Calcium 7.4 L Magnesium 1.9 Total Bilirubin 0.4 AST 19 ALT 11 Alkaline Phosphatase 273 H B-Natriuretic Peptide Total Protein 5.5 L Albumin 2.7 L Globulin 2.8 Albumin/Globulin Ratio 1.0 Procalcitonin Nasal Screen MRSA (PCR) Adenovirus (PCR) B. pertussis DNA (PCR) B.parapertussis DNA PCR C. pneumoniae DNA (PCR) Coronavirus OC43 (PCR) Coronavirus HKU1 (PCR) Coronavirus 229E (PCR) SARS-CoV-2 (PCR) Coronavirus NL63 (PCR) Human Metapneumovir PCR Influenza Type A (PCR) Influenza Type B (PCR) M. pneumoniae (PCR) Parainfluenza 1 (PCR) Parainfluenza 2 (PCR) Parainfluenza 3 (PCR) Parainfluenza 4 (PCR) RSV (PCR) Entero/Rhino (PCR) Diagnostic Findings SINGLE VIEW CHEST FINDINGS: 2 AP, portable, upright chest radiographs are compared to study dated 11/30/2023. A right-sided central venous catheter is unchanged in position. The heart is enlarged noting atherosclerotic calcification of the thoracic aorta. There is pulmonary vascular congestion with interstitial edema. There are layering pleural effusions with dependent consolidation. The left pleural effusion appears to be at least partially loculated. No pneumothorax is seen. The bony thorax is grossly intact. Fusion hardware is seen at the thoracolumbar junction. Advanced arthritic change is noted in the shoulders. IMPRESSION: 1. Cardiomegaly with evidence of congestive failure and pulmonary edema. Radiographic follow-up to resolution is recommended. 2. Layering pleural effusions with bibasilar consolidation PG Care Time/CCT Total # of Minutes Spent Total Time Spent with Patient: Total time spent is greater than 50% in coordination of care (as documented) at patient's floor/unit and/or counseling patient: Coding Level of Care Code 59413 IN/OBS CONSULT LVL 5,80M Diagnoses ESRD on hemodialysis N18.6; Z99.2 Pneumonia J18.9 Laterality: right Lung location: middle lobe of lung Pneumonia type: due to unspecified organism Coronavirus infection, unspecified B34.2 Anemia due to chronic kidney disease, on chronic dialysis N18.6; D63.1; Z99.2 Anemia type: due to chronic kidney disease Chronic kidney disease stage: on chronic dialysis Sacral wound S31.000A GAVE (gastric antral vascular ectasia) K31.819 Atrial fibrillation, permanent I48.21 Aortic valve stenosis, etiology of cardiac valve disease unspecified I35.0 Cardiac valve disease etiology: etiology unspecified Frailty syndrome in geriatric patient R54 (2) Pneumonia Laterality: right Lung location: middle lobe of lung Pneumonia type: due to unspecified organism Qualified Code(s): J18.9 - Pneumonia, unspecified organism (4) Anemia Anemia type: due to chronic kidney disease Chronic kidney disease stage: on chronic dialysis Qualified Code(s): N18.6 - End stage renal disease; D63.1 - Anemia in chronic kidney disease; Z99.2 - Dependence on renal dialysis (8) Aortic stenosis Cardiac valve disease etiology: etiology unspecified Qualified Code(s): I35.0 - Nonrheumatic aortic (valve) stenosis
[2023-12-26] MEDS: EPOETIN ALFA 20,000 UNITS/ML VIAL IV ONE (15:46)
[2023-12-26] MEDS: IRON SUCROSE 100 MG in SYRINGE 0 ML IV ONE (15:46)
[2023-12-26] MEDS ORDERED: PHARMACY GLYCEMIC MGMT CONSULT PRN (16:49)
[2023-12-26] MEDS ORDERED: GLUCAGON FOR INJ 1 MG VIAL SQ PRN (17:15)
[2023-12-26] MEDS ORDERED: GLUCOSE 10 TAB/TUBE PO PRN (17:15)
[2023-12-26] MEDS ORDERED: DEXTROSE 50% 50 ML SYRINGE IV PRN (17:15)
[2023-12-26] MEDS ORDERED: CARBOHYDRATES FOR HYPOGLYCEMIA PO PRN (17:15)
[2023-12-26] MEDS ORDERED: GLUCOSE 40% GEL 15 GM TUBE PO PRN (17:15)
[2023-12-26] MEDS: INSULIN ASPART PER UNIT CHARGE SC SCH (18:26)
[2023-12-26] MEDS: PSYLLIUM or GUAR GUM FIBER 4GM PACKET PO SCH (18:32)
[2023-12-26] MEDS: ACETAMINOPHEN 325 MG TAB PO PRN (20:52)
[2023-12-27 06:59] LABS: Basophils # (auto) 0.02 K/uL (0.00-0.20); Basophils % (auto) 0.4 %; Eosinophils # (auto) 0.02 K/uL (0.00-0.50); Eosinophils % (auto) 0.4 %; Hematocrit (blood only) 25.7 % (37.0-47.0); Immature Granulocytes # (auto) 0.03 K/uL (0.01-0.20); Immature Granulocytes % (auto) 0.7 %; Lymphocytes # (auto) 0.51 K/uL (1.20-3.40); Lymphocytes % (auto) 11.4 %; Mean Corpuscular Hgb Conc 31.1 g/dL (32.0-36.0); Mean Corpuscular Volume 89.9 fL (80.0-100.0); Monocytes # (auto) 0.39 K/uL (0.11-0.59); Monocytes % (auto) 8.7 %; Neutrophils # (auto) 3.49 K/uL (1.40-6.50); Neutrophils % (auto) 78.4 %; Platelet Count 138 K/uL (130-400); RDW Coefficient of Variation 16.9 % (11.5-14.5); RDW Standard Deviation 55.5 fL (36.4-46.3); Red Blood Count 2.86 M/uL (4.20-5.40); White Blood Count 4.46 K/ul (4.8-10.8)
[2023-12-27 07:12] LABS: Albumin Level 2.7 gm/dl (3.4-5.0); BUN Creatinine Ratio 10.5 (10-20); Bilirubin,Total 0.4 mg/dl (0.2-1.0); Calcium 7.7 mg/dl (8.6-10.3); Creatinine Clr Calc Pharmacy 11.4 ml/min; Globulin 2.8 gm/dl (2.5-4.0); Magnesium 1.9 mg/dl (1.7-2.4); Potassium 3.4 mmol/L (3.5-5.1); Total Protein 5.5 gm/dl (6.0-8.3)
--- NOTE | 2023-12-27 10:19 | Nephrology Progress Note ---
Date of Service December 27, 2023 Assessment & Plan (1) ESRD on hemodialysis: Plan: Orders fHD treatment today have been entered into the EHR and communicated to the english as a second language instructor. Completed short treatment yesterday for additional UF. UF as tolerated today. 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 Outpatient HD: [facility] TTS, 3hr, 3K 2.5Ca F-180NR, EDW 60.5 kg. Heparin free HD. TDC functioning well. Maintain 1.2 L daily fluid restriction. Sevelamer QAC. Medications are appropriately dosed for IHD. (2) Pneumonia: Plan: Remains on Zosyn. Noted chronic pleural effusion. Suggest repeat CXR post HD today or tomorrow AM for repeat evaluation. If dyspnea persists, consider thoracentesis. (3) Coronavirus infection, unspecified: (4) Anemia: Plan: Hgb stable at 8.0 this AM. Melena reported. IV iron and Epogen provided with HD yesterday. Additional venofer will be provided today. Close monitoring. Transfusion PRN, if Hgb drops despite iron and Epo. (5) Sacral wound: (6) GAVE (gastric antral vascular ectasia): Plan: Transfusion support PRN. (7) Atrial fibrillation, permanent: Plan: No AC due to GAVE. (8) Aortic stenosis: (9) Frailty syndrome in geriatric patient: Plan: Multiple recent hospitalizations. Complex medical history. Concerning progressive frailty. Goals of care discussions are ongoing. Admission and Anticipated Discharge Date Admission Date: December 25, 2023 Subjective No acute events overnight. Continues to report melena. One soft bowel movement this AM. Frequent black/tarry stool has been chronic and unchanged. Breathing is much more comfortable this AM. Weakness persists and Daneene remains emotional. She was resolved to have dialysis today. She states that it helped yesterday. No fevers or chills. Review of Systems Review of Systems: All systems reviewed & are unremarkable except as noted in HPI & below Physical Exam Constitutional: + thin and + frail appearing Eyes: + anicteric sclerae; no conjunctival abn ormality ENMT: Mouth: + dry oral mucous membranes Neck: normal visual inspection and trachea midline Respiratory: normal respiratory effort; no respiratory distress Auscultation: + diminished lung sounds, + rhonchi and + wheezes Cardiovascular: Rate/Rhythm: + irregularly irregular Heart Sounds: normal S1 and normal S2 Extremities: no edema (dependent edema) Musculoskeletal: Extremities: no cyanosis and no clubbing Skin: no jaundice Neurologic: Motor/Sensory: no tremor and no asterixis Psychiatric: Orientation: alert and oriented x 3 Results & Data Vital Signs (Past 12 Hours) Vital Signs Temp Pulse Pulse Pulse Resp BP Pulse Ox 12/27/23 07:38 36.8 C 90 20 161/68 H 92 12/27/23 07:18 75 12/27/23 07:03 80 18 95 12/27/23 03:33 36.9 C 76 16 124/58 L 94 12/27/23 00:07 12/27/23 00:07 88 12/26/23 23:40 36.9 C 90 18 108/49 L 92 Pulse Ox O2 Del Method O2 Del Method 12/27/23 07:38 Room Air 12/27/23 07:18 12/27/23 07:03 Room Air 12/27/23 03:33 Room Air 12/27/23 00:07 92 Room Air 12/27/23 00:07 12/26/23 23:40 Room Air Laboratory Results Laboratory Results - last 24 hr 12/26/23 12/26/23 12/26/23 11:29 17:47 19:59 WBC RBC Hgb Hct MCV MCH MCHC RDW Std Deviation RDW Coeff of Irasema Plt Count MPV Immature Gran % (Auto) Neut % (Auto) Lymph % (Auto) [place] % (Auto) Eos % (Auto) Baso % (Auto) Neut # (Auto) Lymph # (Auto) [place] # (Auto) Eos # (Auto) Baso # (Auto) Immature Gran # (Auto) Sodium Potassium Chloride Carbon Dioxide Anion Gap BUN Creatinine Est Cr Clr Drug Dosing eGFR BUN/Creatinine Ratio Glucose POC Glucose 234 H 147 H 197 H Calcium Magnesium Total Bilirubin AST ALT Alkaline Phosphatase Total Protein Albumin Globulin Albumin/Globulin Ratio Stool Occult Bld Scrn 12/26/23 12/27/23 12/27/23 Unknown 05:43 07:36 WBC 4.46 L RBC 2.86 L Hgb 8.0 L Hct 25.7 L MCV 89.9 MCH 28.0 MCHC 31.1 L RDW Std Deviation 55.5 H RDW Coeff of Irasema 16.9 H Plt Count 138 MPV 11.0 Immature Gran % (Auto) 0.7 Neut % (Auto) 78.4 Lymph % (Auto) 11.4 [place] % (Auto) 8.7 Eos % (Auto) 0.4 Baso % (Auto) 0.4 Neut # (Auto) 3.49 Lymph # (Auto) 0.51 L [place] # (Auto) 0.39 Eos # (Auto) 0.02 Baso # (Auto) 0.02 Immature Gran # (Auto) 0.03 Sodium 137 Potassium 3.4 L D Chloride 101 Carbon Dioxide 26 Anion Gap 10 BUN 29 H Creatinine 2.75 H D Est Cr Clr Drug Dosing 11.4 eGFR 16.40 BUN/Creatinine Ratio 10.5 Glucose 131 H POC Glucose 146 H Calcium 7.7 L Magnesium 1.9 Total Bilirubin 0.4 AST 20 ALT 11 Alkaline Phosphatase 249 H Total Protein 5.5 L Albumin 2.7 L Globulin 2.8 Albumin/Globulin Ratio 1.0 Stool Occult Bld Scrn Positive A PG Care Time/CCT Total # of Minutes Spent Total Time Spent with Patient: Total time spent is greater than 50% in coordination of care (as documented) at patient's floor/unit and/or counseling patient: Coding Level of Care Code 71657 SUB INP/OBS CARE 3/50MIN Diagnoses ESRD on hemodialysis N18.6; Z99.2 Pneumonia J18.9 Laterality: right Lung location: middle lobe of lung Pneumonia type: due to unspecified organism Coronavirus infection, unspecified B34.2 Anemia due to chronic kidney disease, on chronic dialysis N18.6; D63.1; Z99.2 Anemia type: due to chronic kidney disease Chronic kidney disease stage: on chronic dialysis Sacral wound S31.000A GAVE (gastric antral vascular ectasia) K31.819 Atrial fibrillation, permanent I48.21 Aortic valve stenosis, etiology of cardiac valve disease unspecified I35.0 Cardiac valve disease etiology: etiology unspecified Frailty syndrome in geriatric patient R54 (2) Pneumonia Laterality: right Lung location: middle lobe of lung Pneumonia type: due to unspecified organism Qualified Code(s): J18.9 - Pneumonia, unspecified organism (4) Anemia Anemia type: due to chronic kidney disease Chronic kidney disease stage: on chronic dialysis Qualified Code(s): N18.6 - End stage renal disease; D63.1 - Anemia in chronic kidney disease; Z99.2 - Dependence on renal dialysis (8) Aortic stenosis Cardiac valve disease etiology: etiology unspecified Qualified Code(s): I35.0 - Nonrheumatic aortic (valve) stenosis
--- NOTE | 2023-12-27 11:44 | Pharmacy Report ---
Pharmacy Glycemic Short Note 2 - Date of Service December 27, 2023 - Glycemic Short BSG Results (Last 24 hours): 12/26/23 12/26/23 12/27/23 17:47 19:59 05:43 Glucose 131 H POC Glucose 147 H 197 H 12/27/23 07:36 Glucose POC Glucose 146 H OUTPATIENT ANTIDIABETIC REGIMEN: * N/A HbA1C: iHD (n/a) ASSESSMENT: * Patient is an 83 year old female admitted with respiratory failure in the setting of coronavirus infection. History of ESRD on iHD. Pharmacy consulted to assist with inpatient glycemic management. * BSGs [phone]/dL since admission. Diet ordered, and receiving IV zosyn. * Ordered dexamethasone 6mg IV daily. * Will continue Novolog ACHS mild to moderate scale. Hold basal for now. PLAN FOR INPATIENT GLYCEMIC CONTROL: * Hold outpatient oral diabetes medications * Basal insulin * hold * Bolus insulin * NovoLog per scale ACHS or Q6hrs while NPO * Goal Range: Low 110 mg/dL - High 140 mg/dL * Correction Factor: 40 mg/dL/unit * Nutritional / Prandial insulin per carb ratio of 1 unit per 15 grams CHO consumed
[2023-12-27] MEDS: IRON SUCROSE 100 MG in SYRINGE 0 ML IV ONE (12:16)
--- NOTE | 2023-12-27 17:38 | Hospitalist Progress Note ---
Date of Service December 27, 2023 Assessment & Plan (1) Coronavirus infection, unspecified: Plan: Presented with worsening shortness of breath, productive cough, and chest congestion x several days after recent hospital discharge 11/29-12/04 followed by [facility] rehab 12/04-12/19 - Coronavirus with secondary bacterial pneumonia > Respiratory BioFire positive for COVID OC43 > Chest x-ray on admission revealed evidence of congestive failure and pulmonary edema, layering pleural effusions with bibasilar consolidation > Nasal MRSA swab negative --> very high negative predictive value > Sputum culture and gram stain pending > Blood cultures pending - Continue dexamethasone 6 mg IV QAM - Continue Duonebs Q4HWA and Q2H PRN - Continue Zosyn 4.5 mg IV Q12H for secondary bacterial pneumonia - Continue Guaifenesin extended release 1200 mg PO BID - Follow pleural effusion and HFpEF improvement with dialysis (2) ESRD on hemodialysis: Plan: Outpatient HD schedule is Sunday, , Sunday - Continue acetate, calcium carbonate, cholecalciferol, furosemide, multivitamin with folic acid, Sevelamer - Per nephrology, no heparin with HD due to h/o GAVE requiring multiple blood transfusions - Maintain 1.2 L daily fluid restriction - Nephrology consulted (3) Physical deconditioning: Plan: Generalized weakness/fatigue/deconditioning/ambulatory dysfunction- - She just completed an admission at [facility] from 12/04-12/20/2023, after her admission at [facility] from 11/29-12/05/2023 - The patient's family reports that she had been able to get around better, but they feel that she is getting weak again - Consult PT/OT 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 - C diff toxin negative, gene positive noted on her last admission - PO Vancomycin 125 mg QID started 12/02 - Per review of most recent hospital discharge summary, PO Vanco should have been completed on 12/13/23, however, it appears she has been taking it until this admission - PO Vanco discontinued 12/25 - Monitor for signs of C diff infection while on antibiotics and in the hospital setting Plan Updated daughter at bedside CODE STATUS: DNR/DNI Admission and Anticipated Discharge Date Admission Date: December 25, 2023 Supervising Physician Co-Signing Physician Notes Attending Attestation - Chart reviewed, care plan d/w STACEY Burrows. I agree w/ the dixon components of her documentation. Davian Renteria MD Subjective Patient seen and evaluated at bedside with her daughter present. She reports that earlier this morning, she had some shortness of breath and was on 2 L supplemental O2 via nasal cannula. She has since come off of this and her O2 sat is remaining stable on room air. She notes that she continues to have a productive cough with expelling green phlegm. She denies any shortness of breath at this time. Additionally, she denies any vaginal bleeding to her knowledge. Encouraged her to inform her RN should this occur. Per RN, she has not noted any vaginal bleeding or blood on the pads she sits on either. No additional complaints or concerns at this time. Physical Exam Physical Exam: General: No acute distress, nondiaphoretic, well-developed, well-nourished. Skin: The skin was without rashes, erythema, or bruising. 1+ pitting edema on l ower extremities bilaterally. Cardiac: Irregularly irregular without murmurs gallops or rubs. Pulm: Diminished breath sounds at bases bilaterally, rales noted throughout lung phan L>R. No respiratory distress. 96% on room air. Abdominal: Soft, nontender, nondistended. Bowel sounds present. Neuro: A&O x3. No focal neurological deficits. Results & Data Results & Data Vital Signs (Past 12 Hours) Vital Signs Temp Pulse Pulse Pulse Resp BP BP 12/27/23 16:18 98.2 F 87 18 139/62 12/27/23 15:58 84 18 12/27/23 13:17 75 14 129/62 12/27/23 12:50 98.4 F 83 138/61 12/27/23 12:30 68 133/57 L 12/27/23 12:00 72 135/63 12/27/23 11:30 73 134/57 L 12/27/23 11:28 12/27/23 11:00 74 127/59 L 12/27/23 10:30 80 131/60 12/27/23 10:00 88 130/67 12/27/23 09:35 98.4 F 88 12/27/23 07:38 98.2 F 90 20 161/68 H 12/27/23 07:18 75 12/27/23 07:03 80 18 Pulse Ox O2 Del Method O2 Flow Rate 12/27/23 16:18 96 Room Air 12/27/23 15:58 94 Room Air 12/27/23 13:17 100 Nasal Cannula 2 12/27/23 12:50 12/27/23 12:30 12/27/23 12:00 12/27/23 11:30 12/27/23 11:28 Nasal Cannula 2 12/27/23 11:00 12/27/23 10:30 12/27/23 10:00 12/27/23 09:35 12/27/23 07:38 92 Room Air 12/27/23 07:18 12/27/23 07:03 95 Room Air Laboratory Results Reviewed CBC Reviewed CMP PG Care Time/CCT Total # of Minutes Spent Total Time Spent with Patient: Total time spent is greater than 50% in coordination of care (as documented) at patient's floor/unit and/or counseling patient: Coding Level of Care Code 50975 SUB INP/OBS CARE 2MIN Diagnoses Coronavirus infection, unspecified B34.2 ESRD on hemodialysis N18.6; Z99.2 Physical deconditioning R53.81 Clostridioides difficile carrier Z22.1
[2023-12-28 06:16] LABS: Basophils # (auto) 0.02 K/uL (0.00-0.20); Basophils % (auto) 0.3 %; Hematocrit (blood only) 26.3 % (37.0-47.0); Hemoglobin 8.2 g/dl (12.0-16.0); Immature Granulocytes # (auto) 0.06 K/uL (0.01-0.20); Immature Granulocytes % (auto) 0.8 %; Lymphocytes # (auto) 0.62 K/uL (1.20-3.40); Lymphocytes % (auto) 8.4 %; Mean Corpuscular Hemoglobin 27.9 pg (25.0-34.0); Mean Corpuscular Hgb Conc 31.2 g/dL (32.0-36.0); Mean Corpuscular Volume 89.5 fL (80.0-100.0); Mean Platelet Volume 11.2 fL (9.4-12.4); Monocytes # (auto) 0.57 K/uL (0.11-0.59); Monocytes % (auto) 7.8 %; Neutrophils # (auto) 6.08 K/uL (1.40-6.50); Neutrophils % (auto) 82.7 %; Nucleated RBC # (auto) 0.02 K/uL (0.00-0.12); Nucleated RBC % (auto) 0.3 %; Platelet Count 174 K/uL (130-400); RDW Coefficient of Variation 16.6 % (11.5-14.5); RDW Standard Deviation 54.9 fL (36.4-46.3); Red Blood Count 2.94 M/uL (4.20-5.40); White Blood Count 7.35 K/ul (4.8-10.8)
[2023-12-28 06:58] LABS: Bilirubin,Total 0.5 mg/dl (0.2-1.0); Calcium 7.9 mg/dl (8.6-10.3); Magnesium 1.9 mg/dl (1.7-2.4); Potassium 3.6 mmol/L (3.5-5.1)
[2023-12-28 07:04] LABS: Albumin Globulin Ratio 1.1 (0.9-2); BUN Creatinine Ratio 9.2 (10-20); Creatinine Clr Calc Pharmacy 13.8 ml/min; Globulin 2.8 gm/dl (2.5-4.0); Total Protein 5.8 gm/dl (6.0-8.3)
--- NOTE | 2023-12-28 07:43 | Electrocardiogram Report ---
Test Reason : Blood Pressure : */* mmHG Vent. Rate : 80 BPM Atrial Rate : 80 BPM P-R Int : 294 ms QRS Dur : 130 ms QT Int : 424 ms P-R-T Axes : 61 -21 -3 degrees QTcB Int : 489 ms Sinus rhythm with 1st degree A-V block Right bundle branch block Abnormal ECG When compared with ECG of 02-Dec-2023 22:28, No significant change was found Confirmed by Delvin Sullivan ([id number]) on 12/28/2023 7:43:13 AM Referred By: REFERRED SELF Confirmed By: Delvin Sullivan
--- NOTE | 2023-12-28 07:43 | Electrocardiogram Report ---
Test Reason : Blood Pressure : */* mmHG Vent. Rate : 89 BPM Atrial Rate : 89 BPM P-R Int : 274 ms QRS Dur : 130 ms QT Int : 406 ms P-R-T Axes : 79 -12 -21 degrees QTcB Int : 493 ms Poor data quality, interpretation may be adversely affected Sinus rhythm with 1st degree A-V block Right bundle branch block Abnormal ECG When compared with ECG of 25-Dec-2023 18:42, No significant change was found Confirmed by Delvin Sullivan ([id number] on 12/28/2023 7:43:23 AM Referred By: REFERRED SELF Confirmed By: Delvin Sullivan
--- NOTE | 2023-12-28 09:35 | Nephrology Progress Note ---
Date of Service December 28, 2023 Assessment & Plan (1) ESRD on hemodialysis: Plan: Completed HD yesterday with adequate UF and clearance. Volume status controlled. Electrolytes normal. Next HD planned for tomorrow per schedule. 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 Outpatient HD: [facility] TTS, 3hr, 3K 2.5Ca F-180NR, 400/800, EDW 60.5 kg. Heparin free HD. TDC functioning well. Maintain 1.2 L daily fluid restriction. Sevelamer QAC. Medications are appropriately dosed for IHD. (2) Pneumonia: Plan: Remains on Zosyn. Noted chronic pleural effusion. Follow up CXR requested this AM. (3) Coronavirus infection, unspecified: (4) Anemia: Plan: Hgb stable at ~8.0 this AM. IV iron provided with HD. Epogen 44512 units provided 12/25. (5) Sacral wound: (6) GAVE (gastric antral vascular ectasia): Plan: Transfusion support PRN. Heparin free HD. (7) Atrial fibrillation, permanent: Plan: No AC due to GAVE. (8) Aortic stenosis: Admission and Anticipated Discharge Date Admission Date: December 25, 2023 Subjective No acute events overnight. Sully reports feeling weak and tired this AM. She has chest congestion and feels sore from coughing. She reports some persistent dyspnea but has noticed improvement. No fevers or chills. No bowel movement this AM. Reports stool was more formed yesterday afternoon. No BRBPR. Review of Systems Review of Systems: All systems reviewed & are unremarkable except as noted in HPI & below Physical Exam Constitutional: + thin and + frail appearing Eyes: + anicteric sclerae ENMT: Mouth: + dry oral mucous membranes Neck: normal visual inspection and trachea midline Respiratory: + cough and + tachypneic; no respiratory distress Auscultation: + diminished lung sounds and + rhonchi Cardiovascular: Rate/Rhythm: + irregularly irregular Heart Sounds: normal S1 and normal S2 Extremities: + edema (dependent edema, improved) Musculoskeletal: Extremities: no cyanosis and no clubbing Skin: no jaundice Neurologic: Motor/Sensory: no tremor and no asterixis Psychiatric: Orientation: alert and oriented x 3 Results & Data Vital Signs (Past 12 Hours) Vital Signs Temp Pulse Pulse Resp BP Pulse Ox O2 Del Method 12/28/23 08:57 36.6 C 73 19 127/58 L 99 Room Air 12/28/23 07:12 79 12/28/23 07:09 76 16 96 Room Air 12/28/23 05:30 20 97 Room Air 12/28/23 02:55 36.5 C 78 16 123/62 98 Room Air 12/27/23 23:19 36.5 C 83 15 123/58 L 99 Room Air 12/27/23 21:50 85 Laboratory Results Laboratory Results - last 24 hr 12/27/23 12/27/23 12/27/23 13:18 16:20 20:21 WBC RBC Hgb Hct MCV MCH MCHC RDW Std Deviation RDW Coeff of Irasema Plt Count MPV Immature Gran % (Auto) Neut % (Auto) Lymph % (Auto) Gladwin % (Auto) Eos % (Auto) Baso % (Auto) Neut # (Auto) Lymph # (Auto) Gladwin # (Auto) Eos # (Auto) Baso # (Auto) Immature Gran # (Auto) Absolute Nucleated RBC Nucleated RBC % (auto) Sodium Potassium Chloride Carbon Dioxide Anion Gap BUN Creatinine Est Cr Clr Drug Dosing eGFR BUN/Creatinine Ratio Glucose POC Glucose 72 170 H 251 H Calcium Magnesium Total Bilirubin AST ALT Alkaline Phosphatase Total Protein Albumin Globulin Albumin/Globulin Ratio 12/28/23 12/28/23 12/28/23 05:27 05:28 07:23 WBC 7.35 RBC 2.94 L Hgb 8.2 L Hct 26.3 L MCV 89.5 MCH 27.9 MCHC 31.2 L RDW Std Deviation 54.9 H RDW Coeff of Irasema 16.6 H Plt Count 174 MPV 11.2 Immature Gran % (Auto) 0.8 Neut % (Auto) 82.7 Lymph % (Auto) 8.4 Gladwin % (Auto) 7.8 Eos % (Auto) 0.0 Baso % (Auto) 0.3 Neut # (Auto) 6.08 Lymph # (Auto) 0.62 L Gladwin # (Auto) 0.57 Eos # (Auto) 0.00 Baso # (Auto) 0.02 Immature Gran # (Auto) 0.06 Absolute Nucleated RBC 0.02 Nucleated RBC % (auto) 0.3 Sodium 137 Potassium 3.6 Chloride 103 Carbon Dioxide 23 Anion Gap 11 BUN 21 Creatinine 2.29 H D Est Cr Clr Drug Dosing 13.8 eGFR 20.43 BUN/Creatinine Ratio 9.2 L Glucose 108 H POC Glucose 119 H Calcium 7.9 L Magnesium 1.9 Total Bilirubin 0.5 AST 23 ALT 12 Alkaline Phosphatase 273 H Total Protein 5.8 L Albumin 3.0 L Globulin 2.8 Albumin/Globulin Ratio 1.1 PG Care Time/CCT Total # of Minutes Spent Total Time Spent with Patient: Total time spent is greater than 50% in coordination of care (as documented) at patient's floor/unit and/or counseling patient: Coding Level of Care Code 66886 SUB INP/OBS CARE 3/50MIN Diagnoses ESRD on hemodialysis N18.6; Z99.2 Pneumonia J18.9 Laterality: right Lung location: middle lobe of lung Pneumonia type: due to unspecified organism Coronavirus infection, unspecified B34.2 Anemia due to chronic kidney disease, on chronic dialysis N18.6; D63.1; Z99.2 Anemia type: due to chronic kidney disease Chronic kidney disease stage: on chronic dialysis Sacral wound S31.000A GAVE (gastric antral vascular ectasia) K31.819 Atrial fibrillation, permanent I48.21 Aortic valve stenosis, etiology of cardiac valve disease unspecified I35.0 Cardiac valve disease etiology: etiology unspecified (2) Pneumonia Laterality: right Lung location: middle lobe of lung Pneumonia type: due to unspecified organism Qualified Code(s): J18.9 - Pneumonia, unspecified organism (4) Anemia Anemia type: due to chronic kidney disease Chronic kidney disease stage: on chronic dialysis Qualified Code(s): N18.6 - End stage renal disease; D63.1 - Anemia in chronic kidney disease; Z99.2 - Dependence on renal dialysis (8) Aortic stenosis Cardiac valve disease etiology: etiology unspecified Qualified Code(s): I35.0 - Nonrheumatic aortic (valve) stenosis
--- NOTE | 2023-12-28 11:23 | XRay Report ---
XR chest 2V PA/lateral CLINICAL HISTORY: pleural effusion, shortness of breath COMPARISON STUDY: Chest radiograph December 25, 2023. FINDINGS: A right internal jugular dual lumen catheter is in place. Thoracolumbar spine fusion hardwa re is partially imaged. There is no pneumothorax. Moderate bilateral pleural effusions persist. A 5.5 cm round left lower lung opacity is present. There is also right basilar opacity. Pulmonary edema wilburn s slightly improved. Severe left glenohumeral joint osteoarthritis is incidentally noted. Cardiomedia stinal silhouette is stable. Left hilar prominence is noted. IMPRESSION: 1. Cardiomegaly. Interstitial pulmonary edema, slightly improved since prior exam. 2. Persistent moderate bilateral pleural effusions. 5.5 cm round left lower lung opacity. This could reflect fissural fluid or atelectatic lung/consolidation. However, radiographic follow-up to ensure r esolution and exclude the possibility of underlying pulmonary lesion is recommended. ACT 112: Negative or not required by law. Electronically signed by: William Hargrove M.D. 12/28/2023 11:21 AM
--- NOTE | 2023-12-28 13:00 | Pharmacy Report ---
Pharmacy Glycemic Short Note 2 - Date of Service December 28, 2023 - Glycemic Short BSG Results (Last 24 hours): 12/27/23 12/27/23 12/27/23 13:18 16:20 20:21 Glucose POC Glucose 72 170 H 251 H 12/28/23 12/28/23 12/28/23 05:27 07:23 11:43 Glucose 108 H POC Glucose 119 H 102 H OUTPATIENT ANTIDIABETIC REGIMEN: * N/A HbA1C: iHD (n/a) ASSESSMENT: 12/27 * BSGs acceptable over last 24 hrs. Only 1 episode of BSGs > 180 noted in last 24 hrs - possibly due to increased insulin needs later in day to cover meals * Fasting BSG at goal w/ no basal on board * No HD orders for today. Will likely be dialyzed tomorrow AM * Dexamethasone 6mg IV Q AM continues 12/26 * Patient is an 83 year old female admitted with respiratory failure in the setting of coronavirus infection. History of ESRD on iHD. Pharmacy consulted to assist with inpatient glycemic management. * BSGs [phone]/dL since admission. Diet ordered, and receiving IV zosyn. * Ordered dexamethasone 6mg IV daily. * Will continue Novolog ACHS mild to moderate scale. Hold basal for now. PLAN FOR INPATIENT GLYCEMIC CONTROL: * Hold outpatient oral diabetes medications * Basal insulin * hold * Bolus insulin * NovoLog per scale ACHS or Q6hrs while NPO * Goal Range: Low 110 mg/dL - High 140 mg/dL * Correction Factor: 30 mg/dL/unit * Nutritional / Prandial insulin per carb ratio of 1 unit per 10 grams CHO consumed * Reassess insulin needs if dexamethasone changed to PO, dose reduced or d/c'd
--- NOTE | 2023-12-28 17:49 | Hospitalist Progress Note ---
Date of Service December 28, 2023 Assessment & Plan (1) Coronavirus infection, unspecified: Plan: Presented with worsening shortness of breath, productive cough, and chest congestion x several days after recent hospital discharge 11/29-12/04 followed by [facility] rehab 12/04-12/19 - Coronavirus with secondary bacterial pneumonia > Respiratory BioFire positive for COVID OC43 > Chest x-ray on admission revealed evidence of congestive failure and pulmonary edema, layering pleural effusions with bibasilar consolidation > Nasal MRSA swab negative --> very high negative predictive value > Sputum culture and gram stain pending > Blood cultures pending - Continue dexamethasone 6 mg IV QAM - Continue Duonebs PRN - Continue Zosyn 4.5 mg IV Q12H for secondary bacterial pneumonia - Continue Guaifenesin extended release 1200 mg PO BID - Follow pleural effusion and HFpEF improvement with dialysis - CXR 12/27 shows slightly improved interstitial pulmonary edema, persistent moderate bilateral pleural effusions, and a 5.5 cm round left lower lung opacity which could reflect fissural fluid or atelectatic lung/consolidation. Radiographic follow-up to ensure resolution and exclude the possibility of underlying pulmonary lesion is recommended. (2) ESRD on hemodialysis: Plan: Outpatient HD schedule is Sunday, , Sunday - Continue acetate, calcium carbonate, cholecalciferol, furosemide, multivitamin with folic acid, Sevelamer - Per nephrology, no heparin with HD due to h/o GAVE requiring multiple blood transfusions - Maintain 1.2 L daily fluid restriction - Nephrology consulted (3) Physical deconditioning: Plan: Generalized weakness/fatigue/deconditioning/ambulatory dysfunction- - She just completed an admission at [facility] from 12/04-12/20/2023, after her admission at [facility] from 11/29-12/05/2023 - The patient's family reports that she had been able to get around better, but they feel that she is getting weak again - Consult PT/OT --> recommending SNF, but patient is refusing at this time. She is agreeable to home health services; referrals pending. 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 - C diff toxin negative, gene positive noted on her last admission - PO Vancomycin 125 mg QID started 12/02 - Per review of most recent hospital discharge summary, PO Vanco should have been completed on 12/13/23, however, it appears she has been taking it until this admission - PO Vanco discontinued 12/25 - Monitor for signs of C diff infection while on antibiotics and in the hospital setting Plan CODE STATUS: DNR/DNI Admission and Anticipated Discharge Date Admission Date: December 25, 2023 Supervising Physician Co-Signing Physician Notes Attending Attestation - Chart reviewed, care plan d/w STACEY Burrows. I agree w/ the dixon components of her documentation. Davian Renteria MD Subjective Patient seen and evaluated at bedside. She reports feeling more tired today due to her dialysis treatment yesterday. She reports an episode of shortness of breath last night, which was relieved with supplemental oxygen. She has been stable on room air today. She notes a slight improvement in her dyspnea. She notes continued productive cough. No additional complaints or concerns at this time. Physical Exam Physical Exam: General: No acute distress, nondiaphoretic, well-developed, well-nourished. Skin: The skin was without rashes, erythema, or bruising. 1+ pitting edema on lower extremities bilaterally. Cardiac: Irregularly irregular without murmurs gallops or rubs. Pulm: Diminished breath sounds at bases bilaterally, IMPROVING rales noted throughout lung phan L>R. No respiratory distress. 97% on room air. Abdominal: Soft, nontender, nondistended. Bowel sounds present. Neuro: A&O x3. No focal neurological deficits. Results & Data Results & Data Vital Signs (Past 12 Hours) Vital Signs Temp Pulse Pulse Resp BP Pulse Ox O2 Del Method 12/28/23 16:48 97.7 F 91 H 16 125/74 97 Room Air 12/28/23 14:24 81 12/28/23 14:23 42 L 12/28/23 12:30 97.3 F L 81 12 143/62 H 97 Room Air 12/28/23 11:28 Room Air 12/28/23 08:57 97.9 F 73 19 127/58 L 99 Room Air 12/28/23 07:12 79 12/28/23 07:09 76 16 96 Room Air Laboratory Results Reviewed CBC Reviewed CMP Diagnostic Findings Reviewed CXR Chest X-Ray 12/28/23 09:27 XR chest 2V PA/lateral CLINICAL HISTORY: pleural effusion, shortness of breath COMPARISON STUDY: Chest radiograph December 25, 2023. FINDINGS: A right internal jugular dual lumen catheter is in place. Thoracolumbar spine fusion hardware is partially imaged. There is no pneumothorax. Moderate bilateral pleural effusions persist. A 5.5 cm round left lower lung opacity is present. There is also right basilar opacity. Pulmonary edema has slightly improved. Severe left glenohumeral joint osteoarthritis is incidentally noted. Cardiomediastinal silhouette is stable. Left hilar prominence is noted. IMPRESSION: 1. Cardiomegaly. Interstitial pulmonary edema, slightly improved since prior exam. 2. Persistent moderate bilateral pleural effusions. 5.5 cm round left lower lung opacity. This could reflect fissural fluid or atelectatic lung/consolidation. However, radiographic follow-up to ensure resolution and exclude the possibility of underlying pulmonary lesion is recommended. ACT 112: Negative or not required by law. Electronically signed by: William Hargrove M.D. 12/28/2023 11:21 AM PG Care Time/CCT Total # of Minutes Spent Total Time Spent with Patient: Total time spent is greater than 50% in coordination of care (as documented) at patient's floor/unit and/or counseling patient: Coding Level of Care Code 84745 SUB INP/OBS CARE 2/35MIN Diagnoses Coronavirus infection, unspecified B34.2 ESRD on hemodialysis N18.6; Z99.2 Physical deconditioning R53.81 Clostridioides difficile carrier Z22.1
[2023-12-28] MEDS: traMADol HCL 50 MG TABLET PO PRN (21:01)
[2023-12-28] MEDS: MAGNESIUM SULFATE / D5W 1 GM/100 ML BAG IV ONE (23:03)
[2023-12-28] MEDS: POTASSIUM CHLORIDE CRTAB 20 MEQ TABCR PO STA (23:03)
--- NOTE | 2023-12-29 07:40 | Electrocardiogram Report ---
Test Reason : Blood Pressure : */* mmHG Vent. Rate : 69 BPM Atrial Rate : 111 BPM P-R Int : * ms QRS Dur : 132 ms QT Int : 450 ms P-R-T Axes : * -18 2 degrees QTcB Int : 482 ms Sinus rhythm with second degree type 1 AV block Right bundle branch block Abnormal ECG Confirmed by Ronald Moura ([id number]) on 12/29/2023 7:40:19 AM Referred By: REFERRED SELF Confirmed By: Ronald Moura
[2023-12-29 08:16] LABS: Hematocrit (blood only) 25.8 % (37.0-47.0); Hemoglobin 8.2 g/dl (12.0-16.0)
[2023-12-29 08:29] LABS: BUN Creatinine Ratio 9.9 (10-20); Calcium 7.8 mg/dl (8.6-10.3); Creatinine Clr Calc Pharmacy 9.9 ml/min; Potassium 3.8 mmol/L (3.5-5.1)
--- NOTE | 2023-12-29 08:33 | Hospitalist Progress Note ---
Date of Service December 29, 2023 Assessment & Plan (1) Coronavirus infection, unspecified: Plan: Presented with worsening shortness of breath, productive cough, and chest congestion x several days after recent hospital discharge 11/29-12/04 followed by [facility] rehab 12/04-12/19 - Coronavirus with secondary bacterial pneumonia > Respiratory BioFire positive for COVID OC43 > Chest x-ray on admission revealed evidence of congestive failure and pulmonary edema, layering pleural effusions with bibasilar consolidation > Nasal MRSA swab negative --> very high negative predictive value > Sputum culture and gram stain unremarkable > Blood cultures negative x 48 hours - Continue dexamethasone 6 mg IV QAM - Continue Duonebs PRN - Continue Zosyn 4.5 mg IV Q12H for secondary bacterial pneumonia - Continue Guaifenesin extended release 1200 mg PO BID - Follow pleural effusion and HFpEF improvement with dialysis - CXR 12/27 shows slightly improved interstitial pulmonary edema, persistent moderate bilateral pleural effusions, and a 5.5 cm round left lower lung opacity which could reflect fissural fluid or atelectatic lung/consolidation. Radiographic follow-up to ensure resolution and exclude the possibility of underlying pulmonary lesion is recommended. (2) ESRD on hemodialysis: Plan: Outpatient HD schedule is Sunday, , Sunday - Continue acetate, calcium carbonate, cholecalciferol, furosemide, multivitamin with folic acid, Sevelamer - Per nephrology, 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 from 12/04-12/20/2023, after her admission at [facility] from 11/29-12/05/2023 - The patient's family reports that she had been able to get around better, but they feel that she is getting weak again - Consult PT/OT --> recommending SNF, but patient is refusing at this time. She is agreeable to home health services; referrals pending. 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 diff study ordered Plan Ordered C diff study CODE STATUS: DNR/DNI Admission and Anticipated Discharge Date Admission Date: December 25, 2023 Supervising Physician Co-Signing Physician Notes Attending Attestation - Chart reviewed, care plan d/w STACEY Burrows. I agree w/ the dixon components of her documentation. Davian Renteria MD Subjective Patient seen and evaluated at bedside after her dialysis treatment. She reports that her shortness of breath seems improved after her dialysis today. She does continue to have some dyspnea with exertion. She continues to have productive cough with white/green sputum production. She notes that she is fatigued at this time. She has been having loose stools per RN. C. difficile study has been ordered, the most recent bowel movement was not collected as she missed the collection hat during her bowel movement. No additional complaints or concerns at this time. Physical Exam Physical Exam: General: No acute distress, nondiaphoretic, well-developed, well-nourished. Skin: The skin was without rashes, erythema, or bruising. 1+ pitting edema on lower extremities bilaterally. Cardiac: Irregularly irregular without murmurs gallops or rubs. Pulm: Diminished breath sounds at bases bilaterally, IMPROVING rales noted throughout lung phan L>R. No respiratory distress. 99% on room air. Abdominal: Soft, nontender, nondistended. Bowel sounds present. Neuro: A&O x3. No focal neurological deficits. Results & Data Results & Data Vital Signs (Past 12 Hours) Vital Signs Temp Pulse Pulse Resp BP Pulse Ox O2 Del Method 12/29/23 07:34 97.9 F 77 18 134/57 L 96 Room Air 12/29/23 07:15 69 12/29/23 04:17 169/72 H 12/29/23 03:56 97.9 F 86 16 171/77 H 97 Room Air 12/28/23 23:10 97.5 F L 82 16 122/73 98 Room Air 12/28/23 22:57 66 Laboratory Results Reviewed H&H Reviewed BMP PG Care Time/CCT Total # of Minutes Spent Total Time Spent with Patient: Total time spent is greater than 50% in coordination of care (as documented) at patient's floor/unit and/or counseling patient: Coding Level of Care Code 26446 SUB INP/OBS CARE 2/35MIN Diagnoses Coronavirus infection, unspecified B34.2 ESRD on hemodialysis N18.6; Z99.2 Physical deconditioning R53.81 Clostridioides difficile carrier Z22.1
--- NOTE | 2023-12-29 08:56 | Nephrology Progress Note ---
Date of Service December 29, 2023 Assessment & Plan (1) ESRD on hemodialysis: Plan: * Respiratory status has improved. 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 Outpatient HD: [facility] TTS, 3hr, 3K 2.5Ca F-180NR, 400/800, EDW 60.5 kg. Heparin free HD (due to GAVE) * Obtain BMP in a.m. (2) Pneumonia: Plan: * Bacterial and viral pneumonia. Patient tested positive for non-COVID coronavirus infection at the time of admission * Remains on Zosyn. (3) Anemia: Plan: * Hgb stable at 8.2 this AM * Epogen 80785 units provided 12/25 (4) GAVE (gastric antral vascular ectasia): Plan: * Transfusion support PRN. Heparin free HD. (5) Atrial fibrillation, permanent: Plan: * No anticoagulation due to GAVE. (6) Aortic stenosis: Admission and Anticipated Discharge Date Admission Date: December 25, 2023 Subjective Ms. Ray was evaluated in her hospital room this morning. She is preparing for dialysis. She complains of a persistent cough but notes that her breathing overall is mildly improved. She denied fever angina or abdominal discomfort. Review of Systems Constitutional: + fatigue and + weakness; no fever Eyes: no problem reported Ear, Nose, Mouth, Throat: no sore throat and no dysphagia Respiratory: + cough Cardiovascular: no chest pain Gastrointestinal: no abdominal pain, no nausea, no vomiting and no diarrhea/loose stools Genitourinary: no problem reported Physical Exam Constitutional: + thin and + frail appearing Eyes: PERRL, conjunctivae normal, anicteric sclerae ENMT: external ear and nose normal, oropharynx normal Neck: normal visual inspection and trachea midline Respiratory: + cough; no respiratory distress Ausc ultation: + rales Cardiovascular: Rate/Rhythm: + irregularly irregular Extremities: + edema (dependent edema, improved) Musculoskeletal: Extremities: no cyanosis and no clubbing Skin: no jaundice Neurologic: Motor/Sensory: no tremor and no asterixis Psychiatric: Orientation: alert and oriented x 3 Results & Data Vital Signs (Past 12 Hours) Vital Signs Temp Pulse Pulse Resp BP Pulse Ox O2 Del Method 12/29/23 07:34 36.6 C 77 18 134/57 L 96 Room Air 12/29/23 07:15 69 12/29/23 04:17 169/72 H 12/29/23 03:56 36.6 C 86 16 171/77 H 97 Room Air 12/28/23 23:10 36.4 C L 82 16 122/73 98 Room Air 12/28/23 22:57 66 Laboratory Results Laboratory Results - last 24 hr 12/28/23 12/28/23 12/28/23 11:43 16:34 19:55 Hgb Hct Sodium Potassium Chloride Carbon Dioxide Anion Gap BUN Creatinine Est Cr Clr Drug Dosing eGFR BUN/Creatinine Ratio Glucose POC Glucose 102 H 134 H 192 H Calcium 12/29/23 12/29/23 07:02 07:19 Hgb 8.2 L Hct 25.8 L Sodium 136 Potassium 3.8 Chloride 102 Carbon Dioxide 24 Anion Gap 10 BUN 32 H Creatinine 3.22 H D Est Cr Clr Drug Dosing 9.9 eGFR 13.57 BUN/Creatinine Ratio 9.9 L Glucose 98 POC Glucose 104 H Calcium 7.8 L PG Care Time/CCT Total # of Minutes Spent Total Time Spent with Patient: Total time spent is greater than 50% in coordination of care (as documented) at patient's floor/unit and/or counseling patient: Coding Level of Care Code 35389 SUB INP/OBS CARE 3/50MIN Diagnoses ESRD on hemodialysis N18.6; Z99.2 Pneumonia J18.9 Laterality: right Lung location: middle lobe of lung Pneumonia type: due to unspecified organism Anemia due to chronic kidney disease, on chronic dialysis N18.6; D63.1; Z99.2 Anemia type: due to chronic kidney disease Chronic kidney disease stage: on chronic dialysis GAVE (gastric antral vascular ectasia) K31.819 Atrial fibrillation, permanent I48.21 Aortic valve stenosis, etiology of cardiac valve disease unspecified I35.0 Cardiac valve disease etiology: etiology unspecified (2) Pneumonia Laterality: right Lung location: middle lobe of lung Pneumonia type: due to unspecified organism Qualified Code(s): J18.9 - Pneumonia, unspecified organism (3) Anemia Anemia type: due to chronic kidney disease Chronic kidney disease stage: on chronic dialysis Qualified Code(s): N18.6 - End stage renal disease; D63.1 - Anemia in chronic kidney disease; Z99.2 - Dependence on renal dialysis (6) Aortic stenosis Cardiac valve disease etiology: etiology unspecified Qualified Code(s): I35.0 - Nonrheumatic aortic (valve) stenosis
[2023-12-30 07:32] LABS: Hematocrit (blood only) 25.5 % (37.0-47.0); Hemoglobin 7.9 g/dl (12.0-16.0); Mean Corpuscular Hemoglobin 27.4 pg (25.0-34.0); Mean Corpuscular Volume 88.5 fL (80.0-100.0); Platelet Count 188 K/uL (130-400); RDW Coefficient of Variation 16.5 % (11.5-14.5); RDW Standard Deviation 52.9 fL (36.4-46.3); Red Blood Count 2.88 M/uL (4.20-5.40)
[2023-12-30 07:38] LABS: BUN Creatinine Ratio 10.4 (10-20); Calcium 7.5 mg/dl (8.6-10.3); Phosphorus 2.7 mg/dl (2.5-4.9); Potassium 3.6 mmol/L (3.5-5.1)
[2023-12-30] MEDS: METHOCARBAMOL 500 MG TABLET PO PRN (08:15)
--- NOTE | 2023-12-30 08:15 | Hospitalist Progress Note ---
Date of Service December 30, 2023 Assessment & Plan (1) Coronavirus infection, unspecified: Plan: Presented with worsening shortness of breath, productive cough, and chest congestion x several days after recent hospital discharge 11/29-12/04 followed by [facility] rehab 12/04-12/19 - Coronavirus with secondary bacterial pneumonia > Respiratory BioFire positive for COVID OC43 > Chest x-ray on admission revealed evidence of congestive failure and pulmonary edema, layering pleural effusions with bibasilar consolidation > Nasal MRSA swab negative --> very high negative predictive value > Sputum culture and gram stain unremarkable > Blood cultures negative x 48 hours - Continue dexamethasone 6 mg IV QAM - Continue Duonebs PRN - Continue Zosyn 4.5 mg IV Q12H for secondary bacterial pneumonia - Continue Guaifenesin extended release 1200 mg PO BID - Follow pleural effusion and HFpEF improvement with dialysis -- patient does report an improvement in her dyspnea following dialysis treatments - CXR 12/27 shows slightly improved interstitial pulmonary edema, persistent moderate bilateral pleural effusions, and a 5.5 cm round left lower lung opacity which could reflect fissural fluid or atelectatic lung/consolidation. Radiographic follow-up to ensure resolution and exclude the possibility of underlying pulmonary lesion is recommended. (2) ESRD on hemodialysis: Plan: Outpatient HD schedule is Sunday, , Sunday - Continue acetate, calcium carbonate, cholecalciferol, furosemide, multivitamin with folic acid, Sevelamer - Per nephrology, no heparin with HD due to h/o GAVE requiring multiple blood transfusions - Maintain 1.2 L daily fluid restriction - Nephrology consulted (3) Physical deconditioning: Plan: Generalized weakness/fatigue/deconditioning/ambulatory dysfunction- - She just [facility] an [facility] from [facility]12/[facility]/2023, after her admission at [facility] from 11/29-12/05/2023 - The patient's family reports that she had been able to get around better, but they feel that she is getting weak again - Consult PT/OT --> recommending SNF, but patient is refusing at this time. She is agreeable to home health services. Daughter continues to encourage rehab placement. 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 diff study NEGATIVE - Imodium PRN for diarrhea Plan Updated daughter at bedside Ordered Imodium PRN CODE STATUS: DNR/DNI Admission and Anticipated Discharge Date Admission Date: December 25, 2023 Supervising Physician Co-Signing Physician Notes Attending Attestation - Chart reviewed, care plan d/w STACEY Burrows. I agree w/ the dixon components of her documentation. Davian Renteria MD Subjective Patient seen and evaluated at bedside with her daughter present. She reports that her shortness of breath seems improved, but her productive coughing is worse. She had a moist productive cough with phlegm production multiple times while I was present. She also continues to have some diarrhea - 3 episodes reported by patient. We discussed that her C. diff study was negative so she can have some Imodium for her diarrhea. Asked RT to perform a breathing treatment and they arrived at the end of my visit. No additional complaints or concerns at this time. Physical Exam Physical Exam: General: No acute distress, nondiaphoretic, well-developed, well-nourished. Skin: The skin was without rashes, erythema, or bruising. 1+ pitting edema on lower extremities bilaterally. Cardiac: Irregularly irregular without murmurs gallops or rubs. Pulm: Diminished breath sounds at bases bilaterally, IMPROVING rales noted throughout lung phan L>R. No respiratory distress. 97% on room air. Abdominal: Soft, nontender, nondistended. Bowel sounds present. Neuro: A&O x3. No focal neurological deficits. Results & Data Results & Data Vital Signs (Past 12 Hours) Vital Signs Temp Pulse Pulse Resp BP Pulse Ox O2 Del Method 12/30/23 07:41 97.9 F 73 18 134/77 97 Room Air 12/30/23 03:45 98.1 F 74 20 150/69 H 98 Room Air 12/29/23 23:20 98.4 F 69 18 128/49 L 98 Room Air 12/29/23 23:00 75 12/29/23 21:15 Room Air 12/29/23 20:40 133/67 Laboratory Results Reviewed CBC Reviewed BMP PG Care Time/CCT Total # of Minutes Spent Total Time Spent with Patient: Total time spent is greater than 50% in coordination of care (as documented) at patient's floor/unit and/or counseling patient: Coding Level of Care Code 17591 SUB INP/OBS CARE 3/50MIN Diagnoses Coronavirus infection, unspecified B34.2 ESRD on hemodialysis N18.6; Z99.2 Physical deconditioning R53.81 Clostridioides difficile carrier Z22.1
--- NOTE | 2023-12-30 08:58 | Nephrology Progress Note ---
Date of Service December 30, 2023 Assessment & Plan (1) ESRD on hemodialysis: Plan: * Respiratory status has improved. Room air SaO2 was 97%. * Patient was dialyzed yesterday for 2 L UF. 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 Outpatient HD: [facility] TTS, 3hr, 3K 2.5Ca F-180NR, 400/800, EDW 60.5 kg. Heparin free HD (due to GAVE) * No acute indication for HD today. Plan next HD for Sunday * Obtain BMP, CBC in a.m. (2) Pneumonia: Plan: * Bacterial and viral pneumonia. Patient tested positive for non-COVID coronavirus infection at the time of admission * Remains on Zosyn and dexamethasone (3) Anemia: Plan: * Epogen 08866 units provided 12/25 * Hgb has dropped to 7.9 this a.m. * Recommend transfusion to maintain hemoglobin greater than 8.0 (4) GAVE (gastric antral vascular ectasia): Plan: * Transfusion support PRN. Heparin free HD. (5) Atrial fibrillation, permanent: Plan: * No anticoagulation due to GAVE. (6) Aortic stenosis: Admission and Anticipated Discharge Date Admission Date: December 25, 2023 Subjective Ms. Ray was evaluated in her hospital room this morning. She was sitting up in a chair this morning. Ms. Ray reports that she still has a cough but her dyspnea has improved following hemodialysis with 2 L UF yesterday. Review of Systems Constitutional: + fatigue and + weakness; no fever Eyes: no problem reported Ear, Nose, Mouth, Throat: no sore throat and no dysphagia Respiratory: + cough Cardiovascular: no chest pain Gastrointestinal: no abdominal pain, no nausea, no vomiting and no diarrhea/loose stools Genitourinary: no problem reported Physical Exam Constitutional: + thin and + frail appearing Eyes: PERRL, conjunctivae normal, anicteric sclerae ENMT: external ear and nose normal, oropharynx normal Neck: normal visual inspection and trachea midline Respiratory: + cough; no respiratory distress Ausc ultation: lungs clear to auscultation bilaterally Cardiovascular: Rate/Rhythm: + irregularly irregular Heart Sounds: normal S1 and normal S2 Extremities: no edema Musculoskeletal: Extremities: no cyanosis and no clubbing Psychiatric: Orientation: alert and oriented x 3 Results & Data Vital Signs (Past 12 Hours) Vital Signs Temp Pulse Pulse Resp BP Pulse Ox O2 Del Method 12/30/23 07:41 36.6 C 73 18 134/77 97 Room Air 12/30/23 03:45 36.7 C 74 20 150/69 H 98 Room Air 12/29/23 23:20 36.9 C 69 18 128/49 L 98 Room Air 12/29/23 23:00 75 12/29/23 21:15 Room Air Laboratory Results Laboratory Results - last 24 hr 12/29/23 12/29/23 12/29/23 14:10 16:09 20:05 WBC RBC Hgb Hct MCV MCH MCHC RDW Std Deviation RDW Coeff of Irasema Plt Count MPV Sodium Potassium Chloride Carbon Dioxide Anion Gap BUN Creatinine Est Cr Clr Drug Dosing eGFR BUN/Creatinine Ratio Glucose POC Glucose 145 H 169 H 145 H Calcium Phosphorus Stl C. diff Tox B Gene 12/29/23 12/30/23 12/30/23 Unknown 07:00 07:16 WBC 6.40 RBC 2.88 L Hgb 7.9 L Hct 25.5 L MCV 88.5 MCH 27.4 MCHC 31.0 L RDW Std Deviation 52.9 H RDW Coeff of Irasema 16.5 H Plt Count 188 MPV 11.0 Sodium 139 Potassium 3.6 Chloride 105 Carbon Dioxide 26 Anion Gap 8 BUN 27 H Creatinine 2.59 H D Est Cr Clr Drug Dosing 12.0 eGFR 17.62 BUN/Creatinine Ratio 10.4 Glucose 130 H POC Glucose 131 H Calcium 7.5 L Phosphorus 2.7 Stl C. diff Tox B Gene Negative Cdiff Gene PG Care Time/CCT Total # of Minutes Spent Total Time Spent with Patient: Total time spent is greater than 50% in coordination of care (as documented) at patient's floor/unit and/or counseling patient: Coding Level of Care Code 57532 SUB INP/OBS CARE 3/50MIN Diagnoses ESRD on hemodialysis N18.6; Z99.2 Pneumonia J18.9 Laterality: right Lung location: middle lobe of lung Pneumonia type: due to unspecified organism Anemia due to chronic kidney disease, on chronic dialysis N18.6; D63.1; Z99.2 Anemia type: due to chronic kidney disease Chronic kidney disease stage: on chronic dialysis GAVE (gastric antral vascular ectasia) K31.819 Atrial fibrillation, permanent I48.21 Aortic valve stenosis, etiology of cardiac valve disease unspecified I35.0 Cardiac valve disease etiology: etiology unspecified (2) Pneumonia Laterality: right Lung location: middle lobe of lung Pneumonia type: due to unspecified organism Qualified Code(s): J18.9 - Pneumonia, unspecified organism (3) Anemia Anemia type: due to chronic kidney disease Chronic kidney disease stage: on chronic dialysis Qualified Code(s): N18.6 - End stage renal disease; D63.1 - Anemia in chronic kidney disease; Z99.2 - Dependence on renal dialysis (6) Aortic stenosis Cardiac valve disease etiology: etiology unspecified Qualified Code(s): I35.0 - Nonrheumatic aortic (valve) stenosis
[2023-12-30] MEDS: LOPERAMIDE HCL 2 MG CAP PO PRN (16:15)
[2023-12-30] MEDS: ALBUT/IPRATROP 3MG/0.5MG NEB 3 ML VIAL NEB PRN (16:26)
[2023-12-31 06:39] LABS: Hematocrit (blood only) 25.3 % (37.0-47.0); Hemoglobin 7.8 g/dl (12.0-16.0); Mean Corpuscular Hemoglobin 27.7 pg (25.0-34.0); Mean Corpuscular Hgb Conc 30.8 g/dL (32.0-36.0); Mean Corpuscular Volume 89.7 fL (80.0-100.0); Mean Platelet Volume 10.2 fL (9.4-12.4); Platelet Count 174 K/uL (130-400); RDW Coefficient of Variation 16.7 % (11.5-14.5); RDW Standard Deviation 53.2 fL (36.4-46.3); Red Blood Count 2.82 M/uL (4.20-5.40); White Blood Count 6.63 K/ul (4.8-10.8)
[2023-12-31 07:05] LABS: BUN Creatinine Ratio 12.3 (10-20); Calcium 7.2 mg/dl (8.6-10.3); Creatinine Clr Calc Pharmacy 9.4 ml/min; Potassium 3.2 mmol/L (3.5-5.1)
--- NOTE | 2023-12-31 08:08 | Hospitalist Progress Note ---
Date of Service December 31, 2023 Assessment & Plan (1) Coronavirus infection, unspecified: Plan: Presented with worsening shortness of breath, productive cough, and chest congestion x several days after recent hospital discharge 11/29-12/04 followed by [facility] rehab 12/04-12/19 - Coronavirus with secondary bacterial pneumonia > Respiratory BioFire positive for COVID OC43 > Chest x-ray on admission revealed evidence of congestive failure and pulmonary edema, layering pleural effusions with bibasilar consolidation, left pleural effusion partially loculated > Nasal MRSA swab negative --> very high negative predictive value > Sputum culture and gram stain unremarkable. Blood cultures negative - Continue dexamethasone 6 mg IV QAM - Continue Duonebs PRN - Continue Zosyn 4.5 mg IV Q12H for secondary bacterial pneumonia - Continue Guaifenesin extended release 1200 mg PO BID - Follow pleural effusion and HFpEF improvement with dialysis -- patient does report an improvement in her dyspnea following dialysis treatments - CXR 12/27 shows slightly improved interstitial pulmonary edema, persistent moderate bilateral pleural effusions, and a 5.5 cm round left lower lung opacity which could reflect fissural fluid or atelectatic lung/consolidation. Radiographic follow-up to ensure resolution and exclude the possibility of underlying pulmonary lesion is recommended. (2) ESRD on hemodialysis: Plan: Outpatient HD schedule is Sunday, , Sunday - Continue acetate, calcium carbonate, cholecalciferol, furosemide, multivitamin with folic acid, Sevelamer - Per nephrology, no heparin with HD due to h/o GAVE requiring multiple blood transfusions - Maintain 1.2 L daily fluid restriction - Nephrology consulted (3) Physical deconditioning: Plan: Generalized weakness/fatigue/deconditioning/ambulatory dysfunction- - She just completed an admission at [facility] from 12/04-12/20/2023, after her admission at [facility] from 11/29-12/05/2023 - The patient's family reports that she had been able to get around better, but they feel that she is getting weak again - Consult PT/OT --> recommending SNF, but patient is refusing at this time. She is agreeable to home health services. Daughter continues to encourage rehab placement. 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 diff study NEGATIVE - Imodium PRN for diarrhea Plan Repleted potassium Asked RT to provide DuoNeb treatment CODE STATUS: DNR/DNI Admission and Anticipated Discharge Date Admission Date: December 25, 2023 Supervising Physician Co-Signing Physician Notes Attending Attestation - Chart reviewed, care plan d/w STACEY Burrows. I agree w/ the dixon components of her documentation. Dispo - [facility]? Social work making referral. Davian Renteria MD Subjective Patient seen and evaluated at bedside. She reports "I am so worn out today." She notes this is usually how she feels the day after dialysis, so she is unsure why she feels so fatigued today. She denied any dyspnea so far today. However, she continues to have wet productive cough with phlegm production. Asked respiratory therapy to provide another breathing treatment. No additional complaints or concerns at this time. Physical Exam Physical Exam: General: No acute distress, nondiaphoretic, well-developed, well-nourished. Skin: The skin was without rashes, erythema, or bruising. 1+ pitting edema on lower extremities bilaterally. Cardiac: Irregularly irregular without murmurs gallops or rubs. Pulm: Diminished breath sounds at bases bilaterally, fine crackles throughout lung phan. No respiratory distress. 99% on room air. Abdominal: Soft, nontender, nondistended. Bowel sounds present. Neuro: A&O x3. No focal neurological deficits. Results & Data Results & Data Vital Signs (Past 12 Hours) Vital Signs Temp Pulse Pulse Resp BP Pulse Ox O2 Del Method 12/31/23 04:14 97.5 F L 77 16 129/56 L 99 Room Air 12/31/23 01:30 Room Air 12/31/23 00:01 98.1 F 74 16 143/83 H 100 Room Air 12/30/23 23:00 67 Laboratory Results Reviewed CBC Reviewed BMP - repleted K PG Care Time/CCT Total # of Minutes Spent Total Time Spent with Patient: Total time spent is greater than 50% in coordination of care (as documented) at patient's floor/unit and/or counseling patient: Coding Level of Care Code 59555 SUB INP/OBS CARE MIN Diagnoses Coronavirus infection, unspecified B34.2 ESRD on hemodialysis N18.6; Z99.2 Physical deconditioning R53.81 Clostridioides difficile carrier Z22.1
--- NOTE | 2023-12-31 08:46 | Nephrology Progress Note ---
Date of Service December 31, 2023 Assessment & Plan (1) ESRD on hemodialysis: Plan: * Respiratory status has improved. Room air SaO2 was 97%. * No acute indication for HD today. 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 Outpatient HD: [facility] TTS, 3hr, 3K 2.5Ca F-180NR, 400/800, EDW 60.5 kg. Heparin free HD (due to GAVE) (2) Pneumonia: Plan: * Bacterial and viral pneumonia. Patient tested positive for non-COVID coronavirus infection at the time of admission * Remains on Zosyn and dexamethasone (3) Anemia: Plan: * Epogen 49727 units provided 12/25 * Hgb has dropped to 7.8 this a.m. * Recommend transfusion to maintain hemoglobin greater than 8.0 (4) GAVE (gastric antral vascular ectasia): Plan: * Transfusion support PRN. Heparin free HD. (5) Atrial fibrillation, permanent: Plan: * No anticoagulation due to GAVE. (6) Aortic stenosis: Admission and Anticipated Discharge Date Admission Date: December 25, 2023 Subjective Ms. Ray was evaluated in her hospital room this morning. She was sitting up in a chair and reported that her cough & dyspnea have improved. She was breathing comfortably on RA Review of Systems Constitutional: + weakness; no fever Eyes: no problem reported Ear, Nose, Mouth, Throat: no sore throat and no dysphagia Respiratory: no cough and no dyspnea Cardiovascular: no chest pain Gastrointestinal: no abdominal pain, no nausea, no vomiting and no diarrhea/loose stools Genitourinary: no problem reported Physical Exam Constitutional: + thin and + frail appearing Eyes: PERRL, conjunctivae normal, anicteric sclerae + anicteric sclerae ENMT: external ear and nose normal, oropharynx normal Neck: normal visual inspection and trachea midline Respiratory: no respiratory distress Auscultation: lungs clear to auscultation bilaterally Cardiovascular: Rate/Rhythm: + irregularly irregular Extremities: no edema Musculoskeletal: Extremities: no cyanosis and no clubbing Skin: no jaundice Neurologic: Motor/Sensory: no tremor and no asterixis Psychiatric: Orientation: alert and oriented x 3 Results & Data Vital Signs (Past 12 Hours) Vital Signs Temp Pulse Pulse Resp BP Pulse Ox O2 Del Method 12/31/23 08:00 36.5 C 68 18 139/71 97 Room Air 12/31/23 04:14 36.4 C L 77 16 129/56 L 99 Room Air 12/31/23 01:30 Room Air 12/31/23 00:01 36.7 C 74 16 143/83 H 100 Room Air 12/30/23 23:00 67 Laboratory Results Laboratory Results - last 24 hr 12/30/23 12/30/23 12/30/23 10:55 16:10 20:25 WBC RBC Hgb Hct MCV MCH MCHC RDW Std Deviation RDW Coeff of Irasema Plt Count MPV Sodium Potassium Chloride Carbon Dioxide Anion Gap BUN Creatinine Est Cr Clr Drug Dosing eGFR BUN/Creatinine Ratio Glucose POC Glucose 108 H 206 H 228 H Calcium 12/31/23 12/31/23 06:18 07:32 WBC 6.63 RBC 2.82 L Hgb 7.8 L Hct 25.3 L MCV 89.7 MCH 27.7 MCHC 30.8 L RDW Std Deviation 53.2 H RDW Coeff of Irasema 16.7 H Plt Count 174 MPV 10.2 Sodium 137 Potassium 3.2 L Chloride 105 Carbon Dioxide 23 Anion Gap 9 BUN 42 H Creatinine 3.41 H D Est Cr Clr Drug Dosing 9.4 eGFR 12.67 BUN/Creatinine Ratio 12.3 Glucose 110 H POC Glucose 126 H Calcium 7.2 L PG Care Time/CCT Total # of Minutes Spent Total Time Spent with Patient: Total time spent is greater than 50% in coordination of care (as documented) at patient's floor/unit and/or counseling patient: Coding Level of Care Code 87734 SUB INP/OBS CARE 3/50MIN Diagnoses ESRD on hemodialysis N18.6; Z99.2 Pneumonia J18.9 Laterality: right Lung location: middle lobe of lung Pneumonia type: due to unspecified organism Anemia due to chronic kidney disease, on chronic dialysis N18.6; D63.1; Z99.2 Anemia type: due to chronic kidney disease Chronic kidney disease stage: on chronic dialysis GAVE (gastric antral vascular ectasia) K31.819 Atrial fibrillation, permanent I48.21 Aortic valve stenosis, etiology of cardiac valve disease unspecified I35.0 Cardiac valve disease etiology: etiology unspecified (2) Pneumonia Laterality: right Lung location: middle lobe of lung Pneumonia type: due to unspecified organism Qualified Code(s): J18.9 - Pneumonia, unspecified organism (3) Anemia Anemia type: due to chronic kidney disease Chronic kidney disease stage: on chronic dialysis Qualified Code(s): N18.6 - End stage renal disease; D63.1 - Anemia in chronic kidney disease; Z99.2 - Dependence on renal dialysis (6) Aortic stenosis Cardiac valve disease etiology: etiology unspecified Qualified Code(s): I35.0 - Nonrheumatic aortic (valve) stenosis
[2023-12-31] MEDS: POTASSIUM CHLORIDE CRTAB 20 MEQ TABCR PO STA (08:54)
--- NOTE | 2023-12-31 09:48 | Pharmacy Report ---
Pharmacy Glycemic Short Note 2 - Date of Service December 31, 2023 - Glycemic Short BSG Results (Last 24 hours): 12/30/23 12/30/23 12/30/23 10:55 16:10 20:25 Glucose POC Glucose 108 H 206 H 228 H 12/31/23 12/31/23 06:18 07:32 Glucose 110 H POC Glucose 126 H OUTPATIENT ANTIDIABETIC REGIMEN: * N/A HbA1C: iHD (n/a) ASSESSMENT: 12/30: * BSGs largely within goal the last 48h. Received 15 and 18 units of bolus insulin on Sunday and Sunday respectively. * Continues on dexamethasone 6mg IV daily and IV antibiotics. Tolerating diet. * Novolog carb ratio tightened slightly this AM- no other changes for now. 12/27 * BSGs acceptable over last 24 hrs. Only 1 episode of BSGs > 180 noted in last 24 hrs - possibly due to increased insulin needs later in day to cover meals * Fasting BSG at goal w/ no basal on board * No HD orders for today. Will likely be dialyzed tomorrow AM * Dexamethasone 6mg IV Q AM continues 12/26 * Patient is an 83 year old female admitted with respiratory failure in the setting of coronavirus infection. History of ESRD on iHD. Pharmacy consulted to assist with inpatient glycemic management. * BSGs [phone]/dL since admission. Diet ordered, and receiving IV zosyn. * Ordered dexamethasone 6mg IV daily. * Will continue Novolog ACHS mild to moderate scale. Hold basal for now. PLAN FOR INPATIENT GLYCEMIC CONTROL: * Hold outpatient oral diabetes medications * Basal insulin * hold * Bolus insulin * NovoLog per scale ACHS or Q6hrs while NPO * Goal Range: Low 110 mg/dL - High 140 mg/dL * Correction Factor: 30 mg/dL/unit * Nutritional / Prandial insulin per carb ratio of 1 unit per 9 grams CHO consumed * Reassess insulin needs if dexamethasone changed to PO, dose reduced or d/c'd
--- NOTE | 2024-01-01 07:51 | Hospitalist Progress Note ---
Date of Service January 01, 2024 Assessment & Plan (1) Coronavirus infection, unspecified: Plan: Presented with worsening shortness of breath, productive cough, and chest congestion x several days after recent hospital discharge 11/29-12/04 followed by [facility] rehab 12/04-12/19 Coronavirus with secondary bacterial pneumonia per biofire testing CXR w/ CHF/pulmonary edema, layering effusions with bibasilar consolidation with L pleural effusion partially loculated Zosyn IV (day 7 of treatment 12/31). MRSA nares NEGATIVE Continue incentive spirometry, mucinex BID, pulmonary toilet. Duonebs prn Dexamethasone 6mg IV (given 7 doses, will discontinue further to prevent volume overload/fluid retention as well). Currently 100% on RA Sputum cx negative. Blood cultures NGTD HD for CHF/volume overload w/ improvement in dyspnea reported. 1u PRBC for hgb <[address] Burroughs this morning PT/OT recs rehab, CM notified and hopeful dc to [facility] 01/01 CXR 12/27 w/ 5.5cm LLL opacity fissural fluid vs atelectasis vs consolidation --> repeat CXR w/ improvement in size. Will plan to complete course w/ Augmentin at dc for 10 day course. Repeat cdiff stool testing/consideration for proph vanco while completing course abx for pneumonia. Monitor labs/exam on repeat (2) ESRD on hemodialysis: Plan: Outpatient HD typically TTS Continues home medications including:acetate, calcium carbonate, cholecalciferol, furosemide, multivitamin with folic acid, Sevelamer Nephrology on consult, no heparin w/ HD given hx GAVE/chronic anemia EPO w/ HD per nephorology 1u PRBC for 12/31 as above. Hx GAVE and per nephrology, recs for PRBC for hgb <8 Maintain fluid restrictions/AHA diet Monitor volume status (3) Physical deconditioning: Plan: Generalized weakness/fatigue/deconditioning/ambulatory dysfunction- She just completed an admission at [facility] from 12/04-12/20/2023, after her admission at [facility] from 11/29-12/05/2023 The patient's family reports that she had been able to get around better, but they feel that she is getting weak again, suspect 2nd to coronavirus/bacterial pneumonia PT/OT rec rehab, pt agreeable and CM notified/ref to [facility] and hopeful dc 01/01 to such 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 Hopeful dc [facility] 01/01 on Augmentin to complete total 10 day course abx. Would plan to continue once daily PO vancomycin while completing course. Admission and Anticipated Discharge Date Admission Date: December 25, 2023 Supervising Physician Co-Signing Physician Notes The patient was not seen by me. The chart was reviewed. Case discussed with STACEY Flores. Agree with assessment and plan Subjective Evaluated this morning in HD unit. She is resting comfortable, reports stable breathing/improved from admission. No significant cough/hypoxia. Discussed and obtained consent for PRBC this morning for 1u to keep hgb >8. No active bleeding reported. Did have some loose stool this morning, prior cdiff testing negative but discussed will repeat and consideration for once daily proph vancomycin. She is agreeable to rehab, discussed will alert CM but placement depending on facility with HD but if feeling well and bed obtained could consider discharge in the next 24-48 hours pending bed/placement. Physical Exam 2 Physical Exam: General: 83 yo female sitting in bed in HD unit, slight fatigue but NAD HEENT head atraumatic, normocephalic, mmm, trachea midline Resp: even/unlabored, slightly diminished in the bases but no significant wheezing/rales, on room air CV: irregularly irregular, rates 70s, systolic murmur, 1+ b/l LE edema, pulses present GI: +BS, soft/NT : no cervantes MSK/Neuro: generalized weakness but nonfocal, answering questions appropriately, following commands Psych: AOx3, cooperative with exam Results & Data Results & Data Vital Signs (Past 12 Hours) Vital Signs Temp Pulse Resp BP Pulse Ox O2 Del Method 01/01/24 04:00 36.6 C 72 18 122/58 L 97 Room Air 01/01/24 00:03 36.8 C 66 20 140/49 L 95 Room Air 12/31/23 21:00 Room Air Laboratory Results 01/01/24 07:15 01/01/24 07:15 Diagnostic Findings Chest X-Ray 01/01/24 07:52 XR chest 2V PA/lateral CLINICAL HISTORY: follow up TECHNIQUE: 2 views of the chest were obtained. Comparison: Comparison is made to chest radiograph 12/28/2023 FINDINGS: Right dual-lumen catheter is again seen. Posterior fixation hardware is seen in the spine. Cardiomegaly is noted. The aortic arch is calcified. Prominence and cephalization of the vasculature is seen. Moderate bilateral pleural effusions. IMPRESSION: Stable moderate bilateral pleural effusions. Previously noted rounded airspace opacity is decreased in size and may represent consolidation, however follow-up to resolution is recommended. ACT 112: Negative or not required by law. Electronically signed by: Isacc Pak M.D. 01/01/2024 10:20 AM PG Care Time/CCT Total # of Minutes Spent Total Time Spent with Patient: Total time spent is greater than 50% in coordination of care (as documented) at patient's floor/unit and/or counseling patient: Coding Level of Care Code 35277 SUB INP/OBS CARE 3/50MIN Diagnoses Coronavirus infection, unspecified B34.2 ESRD on hemodialysis N18.6; Z99.2 Physical deconditioning R53.81 Clostridioides difficile carrier Z22.1
[2024-01-01 08:27] LABS: Hematocrit (blood only) 24.4 % (37.0-47.0); Hemoglobin 7.7 g/dl (12.0-16.0); Mean Corpuscular Hemoglobin 27.9 pg (25.0-34.0); Mean Corpuscular Hgb Conc 31.6 g/dL (32.0-36.0); Mean Corpuscular Volume 88.4 fL (80.0-100.0); Mean Platelet Volume 11.2 fL (9.4-12.4); Platelet Count 200 K/uL (130-400); RDW Coefficient of Variation 17.6 % (11.5-14.5); RDW Standard Deviation 52.7 fL (36.4-46.3); Red Blood Count 2.76 M/uL (4.20-5.40); White Blood Count 7.41 K/ul (4.8-10.8)
[2024-01-01 08:44] LABS: BUN Creatinine Ratio 12.5 (10-20); Calcium 7.1 mg/dl (8.6-10.3); Creatinine Clr Calc Pharmacy 6.4 ml/min; Potassium 3.4 mmol/L (3.5-5.1)
--- NOTE | 2024-01-01 08:48 | Nephrology Progress Note ---
Date of Service January 01, 2024 Assessment & Plan (1) ESRD on hemodialysis: Plan: * Respiratory status has improved. Room air SaO2 was 98%. 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 Outpatient HD: [facility] TTS, 3hr, 3K 2.5Ca F-180NR, 400/800, EDW 60.5 kg. Heparin free HD (due to GAVE) (2) Pneumonia: Plan: * Bacterial and viral pneumonia. Patient tested positive for non-COVID coronavirus infection at the time of admission * Remains on Zosyn and dexamethasone (3) Anemia: Plan: * Epogen 28002 units provided 12/25 * Hgb has dropped to 7.7 this a.m. * Patient will receive one unit PRBC during HD today (4) GAVE (gastric antral vascular ectasia): Plan: * Transfusion support PRN. Heparin free HD. (5) Atrial fibrillation, permanent: Plan: * No anticoagulation due to GAVE. (6) Aortic stenosis: Admission and Anticipated Discharge Date Admission Date: December 25, 2023 Subjective Ms. aRy was evaluated in preparation for HD today. She reports that her breathing is subjectively improved and denies overt blood loss Review of Systems Constitutional: + weakness; no fever Eyes: no problem reported Ear, Nose, Mouth, Throat: no sore throat and no dysphagia Respiratory: no cough and no dyspnea Cardiovascular: no chest pain Gastrointestinal: no abdominal pain, no nausea, no vomiting and no diarrhea/loose stools Genitourinary: no problem reported Physical Exam Constitutional: + thin and + frail appearing Eyes: PERRL, conjunctivae normal, anicteric sclerae ENMT: external ear and nose normal, oropharynx normal Neck: normal visual inspection and trachea midline Respiratory: + cough; no respiratory distress Ausc ultation: + rales Cardiovascular: Rate/Rhythm: + irregularly irregular Extremities: no edema Musculoskeletal: Extremities: no cyanosis and no clubbing Skin: no jaundice Psychiatric: Orientation: alert and oriented x 3 Results & Data Vital Signs (Past 12 Hours) Vital Signs Temp Pulse Resp BP Pulse Ox O2 Del Method 01/01/24 08:20 36.8 C 78 14 132/73 98 Room Air 01/01/24 04:00 36.6 C 72 18 122/58 L 97 Room Air 01/01/24 00:03 36.8 C 66 20 140/49 L 95 Room Air 12/31/23 21:00 Room Air Laboratory Results Laboratory Results - last 24 hr 12/31/23 12/31/23 12/31/23 11:21 16:26 19:45 WBC RBC Hgb Hct MCV MCH MCHC RDW Std Deviation RDW Coeff of Irasema Plt Count MPV Sodium Potassium Chloride Carbon Dioxide Anion Gap BUN Creatinine Est Cr Clr Drug Dosing eGFR BUN/Creatinine Ratio Glucose POC Glucose 98 103 H 256 H Calcium Magnesium 01/01/24 01/01/24 07:15 07:17 WBC 7.41 RBC 2.76 L Hgb 7.7 L Hct 24.4 L MCV 88.4 MCH 27.9 MCHC 31.6 L RDW Std Deviation 52.7 H RDW Coeff of Irasema 17.6 H Plt Count 200 MPV 11.2 Sodium 137 Potassium 3.4 L Chloride 104 Carbon Dioxide 19 L Anion Gap 14 H BUN 63 H D Creatinine 5.03 H* D Est Cr Clr Drug Dosing 6.4 eGFR 7.95 BUN/Creatinine Ratio 12.5 Glucose 114 H POC Glucose 123 H Calcium 7.1 L Magnesium 2.0 PG Care Time/CCT Total # of Minutes Spent Total Time Spent with Patient: Total time spent is greater than 50% in coordination of care (as documented) at patient's floor/unit and/or counseling patient: Coding Level of Care Code 58407 SUB INP/OBS CARE 3/50MIN Diagnoses ESRD on hemodialysis N18.6; Z99.2 Pneumonia J18.9 Laterality: right Lung location: middle lobe of lung Pneumonia type: due to unspecified organism Anemia due to chronic kidney disease, on chronic dialysis N18.6; D63.1; Z99.2 Anemia type: due to chronic kidney disease Chronic kidney disease stage: on chronic dialysis GAVE (gastric antral vascular ectasia) K31.819 Atrial fibrillation, permanent I48.21 Aortic valve stenosis, etiology of cardiac valve disease unspecified I35.0 Cardiac valve disease etiology: etiology unspecified (2) Pneumonia Laterality: right Lung location: middle lobe of lung Pneumonia type: due to unspecified organism Qualified Code(s): J18.9 - Pneumonia, unspecified organism (3) Anemia Anemia type: due to chronic kidney disease Chronic kidney disease stage: on chronic dialysis Qualified Code(s): N18.6 - End stage renal disease; D63.1 - Anemia in chronic kidney disease; Z99.2 - Dependence on renal dialysis (6) Aortic stenosis Cardiac valve disease etiology: etiology unspecified Qualified Code(s): I35.0 - Nonrheumatic aortic (valve) stenosis
[2024-01-01] MEDS ORDERED: SODIUM CHLORIDE 0.9% 100 ML IV PRN (09:08)
[2024-01-01] MEDS ORDERED: SODIUM CHLORIDE 0.9% 50 ML IV PRN (09:08)
--- NOTE | 2024-01-01 10:21 | XRay Report ---
XR chest 2V PA/lateral CLINICAL HISTORY: follow up TECHNIQUE: 2 views of the chest were obtained. Comparison: Comparison is made to chest radiograph 12/28/2023 FINDINGS: Right dual-lumen catheter is again seen. Posterior fixation hardware is seen in the spine. Cardiomega ly is noted. The aortic arch is calcified. Prominence and cephalization of the vasculature is seen. M oderate bilateral pleural effusions. IMPRESSION: Stable moderate bilateral pleural effusions. Previously noted rounded airspace opacity is decreased i n size and may represent consolidation, however follow-up to resolution is recommended. ACT 112: Negative or not required by law. Electronically signed by: Isacc Pak M.D. 01/01/2024 10:20 AM
[2024-01-01] MEDS: EPOETIN ALFA 10,000 UNITS/ML VIAL IV ONE (10:37)
--- NOTE | 2024-01-01 11:36 | Pharmacy Report ---
Pharmacy Glycemic Short Note 2 - Date of Service January 01, 2024 - Glycemic Short BSG Results (Last 24 hours): 12/31/23 12/31/23 01/01/24 16:26 19:45 07:15 Glucose 114 H POC Glucose 103 H 256 H 01/01/24 07:17 Glucose POC Glucose 123 H OUTPATIENT ANTIDIABETIC REGIMEN: * N/A * Patient's A1c is likely somewhat unreliable in ESRD patients d/t interactions between the A1c analyzing technique and high levels of urea in ESRD, reduced RBC life span, iron deficiency anemia, and EPO administration. HbA1c > 7.5% in ESRD patient may overestimate the extent of hyperglycemia in ESRD patients. ASSESSMENT: 12/31: * Sully received 11 units of insulin yesterday, all bolus. BSGs were: [phone] mg/dL. Suspect HS BSG was following a snack but no rn pediatric icu stating so. * Fasting BSG remains controlled at 123 mg/dL this AM. Continue holding any basal insulin. * Carb ratio was tightened yesterday and seems to be working well. No changes necessary. * Patient remains on Dexamethasone 6 mg IV q24h. Once this is discontinued, insulin can likely be discontinued with it. * Patient scheduled for HD today. 12/30: * BSGs largely within goal the last 48h. Received 15 and 18 units of bolus ins ulin on Sunday and Sunday respectively. * Continues on dexamethasone 6mg IV daily and IV antibiotics. Tolerating diet. * Novolog carb ratio tightened slightly this AM- no other changes for now. 12/27 * BSGs acceptable over last 24 hrs. Only 1 episode of BSGs > 180 noted in last 24 hrs - possibly due to increased insulin needs later in day to cover meals * Fasting BSG at goal w/ no basal on board * No HD orders for today. Will likely be dialyzed tomorrow AM * Dexamethasone 6mg IV Q AM continues 12/26 * Patient is an 83 year old female admitted with respiratory failure in the setting of coronavirus infection. History of ESRD on iHD. Pharmacy consulted to assist with inpatient glycemic management. * BSGs [phone]/dL since admission. Diet ordered, and receiving IV zosyn. * Ordered dexamethasone 6mg IV daily. * Will continue Novolog ACHS mild to moderate scale. Hold basal for now. PLAN FOR INPATIENT GLYCEMIC CONTROL: * Basal insulin * Hold * Bolus insulin * NovoLog per scale ACHS or Q6hrs while NPO * Goal Range: Low 110 mg/dL - High 140 mg/dL * Correction Factor: 30 mg/dL/unit * Nutritional / Prandial insulin per carb ratio of 1 unit per 9 grams CHO consumed * Reassess insulin needs if dexamethasone changed to PO, dose reduced or d/c'd
[2024-01-01] MEDS: CHERRY SYRUP 5 ML UDP PO SCH (17:01)
[2024-01-01] MEDS: VANCOMYCIN HCL 125 MG/2.5ML SOLN PO SCH (17:02)
[2024-01-02 07:11] LABS: Calcium 7.5 mg/dl (8.6-10.3); Magnesium 1.9 mg/dl (1.7-2.4); Potassium 3.4 mmol/L (3.5-5.1)
[2024-01-02 07:17] LABS: BUN Creatinine Ratio 12.2 (10-20); Creatinine Clr Calc Pharmacy 8.5 ml/min
[2024-01-02 07:29] LABS: Hematocrit (blood only) 31.4 % (37.0-47.0); Hemoglobin 9.9 g/dl (12.0-16.0); Mean Corpuscular Hemoglobin 28.1 pg (25.0-34.0); Mean Corpuscular Hgb Conc 31.5 g/dL (32.0-36.0); Mean Corpuscular Volume 89.2 fL (80.0-100.0); Platelet Count 196 K/uL (130-400); RDW Coefficient of Variation 17.9 % (11.5-14.5); RDW Standard Deviation 54.3 fL (36.4-46.3); Red Blood Count 3.52 M/uL (4.20-5.40); White Blood Count 11.39 K/ul (4.8-10.8)
--- NOTE | 2024-01-02 08:00 | Hospitalist Progress Note ---
Date of Service January 02, 2024 Assessment & Plan (1) Coronavirus infection, unspecified: Plan: Presented with worsening shortness of breath, productive cough, and chest congestion x several days after recent hospital discharge 11/29-12/04 followed by [facility] 12/04-12/19 Coronavirus with secondary bacterial pneumonia per [facility] testing CXR w/ CHF/pulmonary edema, layering effusions with bibasilar consolidation with L pleural effusion partially loculated Zosyn IV (day 7 of treatment 12/31). MRSA nares NEGATIVE Continue incentive spirometry, mucinex BID, pulmonary toilet. Duonebs prn Dexamethasone 6mg IV (given 7 doses, will discontinue further to prevent volume overload/fluid retention as well). Currently 100% on RA Sputum cx negative. Blood cultures NGTD HD for CHF/volume overload w/ improvement in dyspnea reported. 1u PRBC for hgb <[address] Burroughs this morning PT/OT recs rehab, CM notified and hopeful dc to [facility] 01/01 CXR 12/27 w/ 5.5cm LLL opacity fissural fluid vs atelectasis vs consolidation --> repeat CXR w/ improvement in size. Will plan to complete course w/ Augmentin [place] for 10 day course. Repeat cdiff stool testing negative but placed on once daily vanco while on tx for pneumonia Monitor labs/exam on repeat 01/01 - WBC elevation but had been on Dexamethasone IV for 7 days and has been afebrile. 98% on RA. Given 1u PRBC yesterday for hgb <8, HD for 2L and hgb 9.9 on AM labs - Zosyn IV (day 8 of treatment)--> converting to Augmentin to complete course 10 days (EOT 01/03) at [place] and per CM, [facility] able to offer bed today and will plan for dc (2) ESRD on hemodialysis: Plan: Outpatient HD typically TTS Continues home medications including:acetate, calcium carbonate, cholecalciferol, furosemide, multivitamin with folic acid, [facility] on consult, no heparin w/ HD given hx GAVE/chronic anemia EPO w/ HD per nephorology 1u PRBC for 12/31 as above. Hx GAVE and per nephrology, recs for PRBC for hgb <8 Maintain fluid restrictions/AHA diet Monitor volume status (3) Physical deconditioning: Plan: Generalized weakness/fatigue/deconditioning/ambulatory dysfunction- She just completed an admission at [facility] from 12/04-12/20/2023, after her admission at [facility] from 11/29-12/05/2023 The patient's family reports that she had been able to get around better, but they feel that she is getting weak again, suspect 2nd to coronavirus/bacterial pneumonia PT/OT rec rehab, pt agreeable and CM notified/ref to [facility] and hopeful dc 01/01 to such 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 Hopeful dc [facility] 01/01 on Augmentin to complete total 10 day course abx. Would plan to continue once daily PO vancomycin while completing course. Admission and Anticipated Discharge Date Admission Date: December 25, 2023 Results & Data Results & Data Vital Signs (Past 12 Hours) Vital Signs Temp Pulse Resp BP Pulse Ox O2 Del Method 01/02/24 02:56 36.4 C L 63 18 131/56 L 98 Room Air 01/01/24 23:01 37.1 C 73 18 118/58 L 97 Room Air 01/01/24 20:53 Room Air Laboratory Results 01/02/24 06:44 01/02/24 06:44 Diagnostic Findings Chest X-Ray 01/01/24 07:52 XR chest 2V PA/lateral CLINICAL HISTORY: follow up TECHNIQUE: 2 views of the chest were obtained. Comparison: Comparison is made to chest radiograph 12/28/2023 FINDINGS: Right dual-lumen catheter is again seen. Posterior fixation hardware is seen in the spine. Cardiomegaly is noted. The aortic arch is calcified. Prominence and cephalization of the vasculature is seen. Moderate bilateral pleural effusions. IMPRESSION: Stable moderate bilateral pleural effusions. Previously noted rounded airspace opacity is decreased in size and may represent consolidation, however follow-up to resolution is recommended. ACT 112: Negative or not required by law. Electronically signed by: Isacc Pak M.D. 01/01/2024 10:20 AM PG Care Time/CCT Total # of Minutes Spent Total Time Spent with Patient: Total time spent is greater than 50% in coordination of care (as documented) at patient's floor/unit and/or counseling patient: Coding Diagnoses Coronavirus infection, unspecified B34.2 ESRD on hemodialysis N18.6; Z99.2 Physical deconditioning R53.81 Clostridioides difficile carrier Z22.1
[2024-01-02] MEDS: POTASSIUM CHLORIDE CRTAB 20 MEQ TABCR PO STA (08:26)
--- NOTE | 2024-01-02 08:43 | Nephrology Progress Note ---
Date of Service January 02, 2024 Assessment & Plan (1) ESRD on hemodialysis: Plan: * Respiratory status has improved. Room air SaO2 was 98%. * Patient dialyzed 01/01/24 for 3.25 hrs w/ 3 L UF. No complications. 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 Outpatient HD: [facility] TTS, 3hr, 3K 2.5Ca F-180NR, 400/800, EDW 60.5 kg. Heparin free HD (due to GAVE) (2) Pneumonia: Plan: * Bacterial and viral pneumonia. Patient tested positive for non-COVID coronavirus infection at the time of admission * Remains on Zosyn and dexamethasone (3) Anemia: Plan: * Epogen 50268 units provided 12/25 * Hgb improved to 9.9 today following 1 unit PRBC on HD 01/01/24 (4) GAVE (gastric antral vascular ectasia): Plan: * Transfusion support PRN. Heparin free HD. (5) Atrial fibrillation, permanent: Plan: * No anticoagulation due to GAVE. (6) Aortic stenosis: Admission and Anticipated Discharge Date Admission Date: December 25, 2023 Subjective Ms. Ray was evaluated in her hospital room this morning. She reports that her breathing is subjectively improved and denies overt blood loss. She is anxious to transfer to [facility] for PT Review of Systems Constitutional: + weakness; no fever Eyes: no problem reported Ear, Nose, Mouth, Throat: no sore throat and no dysphagia Respiratory: no cough and no dyspnea Cardiovascular: no chest pain Gastrointestinal: no abdominal pain, no nausea, no vomiting and no diarrhea/loose stools Genitourinary: no problem reported Physical Exam Constitutional: + thin and + frail appearing Eyes: PERRL, conjunctivae normal, anicteric sclerae + anicteric sclerae ENMT: external ear and nose normal, oropharynx normal Neck: normal visual inspection and trachea midline Respiratory: no respiratory distress Auscultation: lungs clear to auscultation bilaterally Cardiovascular: Rate/Rhythm: + irregularly irregular Extremities: no edema Musculoskeletal: Extremities: no cyanosis and no clubbing Skin: no jaundice Neurologic: Motor/Sensory: no tremor and no asterixis Psychiatric: Orientation: alert and oriented x 3 Results & Data Vital Signs (Past 12 Hours) Vital Signs Temp Pulse Resp BP BP Pulse Ox O2 Del Method 01/02/24 08:21 77 20 125/59 L 98 Room Air 01/02/24 02:56 36.4 C L 63 18 131/56 L 98 Room Air 01/01/24 23:01 37.1 C 73 18 118/58 L 97 Room Air 01/01/24 20:53 Room Air Laboratory Results Laboratory Results - last 24 hr 01/01/24 01/01/24 01/01/24 07:15 09:28 13:09 WBC RBC Hgb Hct MCV MCH MCHC RDW Std Deviation RDW Coeff of Irasema Plt Count MPV Sodium 137 Potassium 3.4 L Chloride 104 Carbon Dioxide 19 L Anion Gap 14 H BUN 63 H D Creatinine 5.03 H* D Est Cr Clr Drug Dosing 6.4 eGFR 7.95 BUN/Creatinine Ratio 12.5 Glucose 114 H POC Glucose 76 Calcium 7.1 L Magnesium 2.0 Stl C. diff Tox B Gene Blood Type O Positive Antibody Screen NEGATIVE Crossmatch See Detail 01/01/24 01/01/24 01/01/24 16:09 16:10 19:40 WBC RBC Hgb Hct MCV MCH MCHC RDW Std Deviation RDW Coeff of Irasema Plt Count MPV Sodium Potassium Chloride Carbon Dioxide Anion Gap BUN Creatinine Est Cr Clr Drug Dosing eGFR BUN/Creatinine Ratio Glucose POC Glucose 178 H 238 H Calcium Magnesium Stl C. diff Tox B Gene Negative Cdiff Gene Blood Type Antibody Screen Crossmatch 01/02/24 01/02/24 06:44 07:27 WBC 11.39 H RBC 3.52 L Hgb 9.9 L Hct 31.4 L MCV 89.2 MCH 28.1 MCHC 31.5 L RDW Std Deviation 54.3 H RDW Coeff of Irasema 17.9 H Plt Count 196 MPV 11.0 Sodium 138 Potassium 3.4 L Chloride 106 Carbon Dioxide 19 L Anion Gap 13 H BUN 45 H Creatinine 3.69 H D Est Cr Clr Drug Dosing 8.5 eGFR 11.52 BUN/Creatinine Ratio 12.2 Glucose 140 H POC Glucose 150 H Calcium 7.5 L Magnesium 1.9 Stl C. diff Tox B Gene Blood Type Antibody Screen Crossmatch PG Care Time/CCT Total # of Minutes Spent Total Time Spent with Patient: Total time spent is greater than 50% in coordination of care (as documented) at patient's floor/unit and/or counseling patient: Coding Level of Care Code 01123 SUB INP/OBS CARE MIN Diagnoses ESRD on hemodialysis N18.6; Z99.2 Pneumonia J18.9 Laterality: right Lung location: middle lobe of lung Pneumonia type: due to unspecified organism Anemia due to chronic kidney disease, on chronic dialysis N18.6; D63.1; Z99.2 Anemia type: due to chronic kidney disease Chronic kidney disease stage: on chronic dialysis GAVE (gastric antral vascular ectasia) K31.819 Atrial fibrillation, permanent I48.21 Aortic valve stenosis, etiology of cardiac valve disease unspecified I35.0 Cardiac valve disease etiology: etiology unspecified (2) Pneumonia Laterality: right Lung location: middle lobe of lung Pneumonia type: due to unspecified organism Qualified Code(s): J18.9 - Pneumonia, unspecified organism (3) Anemia Anemia type: due to chronic kidney disease Chronic kidney disease stage: on chronic dialysis Qualified Code(s): N18.6 - End stage renal disease; D63.1 - Anemia in chronic kidney disease; Z99.2 - Dependence on renal dialysis (6) Aortic stenosis Cardiac valve disease etiology: etiology unspecified Qualified Code(s): I35.0 - Nonrheumatic aortic (valve) stenosis
[2024-01-02] MEDS: AMOXICILLIN/CLAVULANATE 250 MG TAB PO SCH (10:16)
--- NOTE | 2024-01-02 11:08 | Discharge Summary ---
Discharge Summary Date of Service January 02, 2024 Principal Dx & Hospital Course #1 = Principal Diagnosis (1) Coronavirus infection, unspecified: Presented with worsening shortness of breath, productive cough, and chest congestion x several days after recent hospital discharge 11/29-12/04 followed by [facility] rehab 12/04-12/19 Coronavirus with secondary bacterial pneumonia per [employer] testing CXR w/ CHF/pulmonary edema, layering effusions with bibasilar consolidation with L pleural effusion partially loculated Zosyn IV provided. MRSA nares NEGATIVE. Provided Dexamethasone 6mg IV (hypoxia/1-2L O2 requirement on admission) and continued pulmonary toilet with IS/mucinex/duonebs prn. Received 7 days IV dexamethasone and had NOT been hypoxic and more volume overloaded/HD for volume management w/ effectiveness and had discontinued further steroids but do suspect WBC 11k today was from the continued daily IV steroids which were just d Sputum cx negative, blood cx NGTD Converting zosyn to Augmentin to complete 10 day course (EOT 01/03) Does have hx cdiff and was on course of Vanco as below which was stopped as completed and did check for cdiff x 2 which was negative but placed back on once daily Vanco while on abx until course completed. Rec'd to have Imodium 2- 3x/daily to prevent issues. Asked wound RN to see prior to dc for excoriations and recs as discussed with nursing to continue aquacell/dressing with zinc butt paste and rec'd for waffle cushion at rehab. Does appear improved compared to eval last hospitalization. Reported improvement in breathing following HD sessions w/ significant improvement following HD on 12/31 with PRBC and was 100% on RA prior to discharge. Again, Augmentin to complete course at discharge and SHOULD HAVE REPEAT CXR to ensure resolution in follow up. PT/OT recs for rehab, arrangements made for [facility] (2) ESRD on hemodialysis: Outpatient HD typically TTS Continued home medications including:acetate, calcium carbonate, cholecalciferol, furosemide BID, multivitamin with folic acid, Sevelamer Nephrology on consult, no heparin w/ HD given hx GAVE/chronic anemia (?but was given Heparin SQ BID notable while inpatient however denied bleeding and stable w/ repeat draws) EPO w/ HD per nephrology, did give 1u PRBC for 12/31 for recs for transfusion <8, HD for 2L. Volume status improved following and repeat Hgb 9.9. Continues HD per nephrology at [facility]. Continued AHA diet/monitor for fluid restriction as needed/utilized inpatient. 20meq PO Kcl provided given ongoing lasix use. Monitor electrolytes as needed at rehab w/ HD notable admission 11/29 for small R cerebellum infarct and has been on aspirin/plavix --> at that time was for DAPT x 21 days then continue aspirin vs plavix alone --> will need f/u with PCP regarding discontinuation of one agent (likely would opt for plavix given hx CAD as well) (3) Physical deconditioning: Generalized weakness/fatigue/deconditioning/ambulatory dysfunction- Just completed an admission at [facility] from 12/04-12/20/2023, after her admission at [facility] from 11/29-12/05/2023 The patient's family reported that she had been able to get around better, but they feel that she is getting weak again, suspect 2nd to coronavirus/bacterial pneumonia as above PT/OT rec rehab, pt agreeable and CM notified/[facility] planned (4) 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 Plan Discharge to [facility] Notes For Next Care Provider Ensure repeat CXR to ensure resolution in prior consolidation Monitor for need for repeat cdiff testing but hopefully resumption of once daily vanco while on the Augmentin to complete course will be effective. Ensure ongoing wound care for buttocks/excoriations from ongoing diarrhea (improved from last admission and did have wound RN see prior to discharge, instructions and supplies provided) Did get 1u PRBC for hgb <8. No abdominal pain reported/fever but had been placed on DAPT last admission w/ recs x 21 days then continue one vs the other (would have been on 12/21). Would rec reaching out to Neurology if wanting their input vs continuing one vs the other (would opt for plavix). Also on 40mg dose statin and prior recs to be entertained back on 10mg dose given acceptable lipid panel. NEEDS TO DISCUSS STOPPING ASA vs PLAVIX ALREADY COMPLETED 21 days per prior recommendations. Can consider reduction in statin back to 10mg as well per Dr Fitzgerald prior note. Medication Changes From Visit Augmentin 1 tablet BID (renally dosed) to complete course Vanco 125mg PO once daily while on augmentin Admission HPI Per Admitting Provider The patient is an 83-year-old female with a past medical history including ESRD on HD, pressure ulcer, right-sided weakness, generalized weakness, ambulatory dysfunction, lower extremity edema, aortic stenosis, Mobitz type I AV block, recurrent UTI, gastroparesis, diabetes mellitus, ARMD, cirrhosis, esophageal varices, HFpEF and A-fib, anemia of chronic disease, GAVE. She presents to the emergency department with symptoms as noted above. Most recent admission to [facility] was from 11/29-12/05/2023, and was then discharged to [facility] from 12/04-12/20/2023. Admission Exam Per Admitting Provider The patient is awake, alert and oriented 3, well developed and well nourished, normocephalic and atraumatic, lying in bed and in no acute distress. HEENT--PERRL, EOMI, mucous membranes and oropharynx normal Neck--supple. No JVD. No bruits. Thyroid normal, trachea midline, no adenopathy. Heart--normal S1 and S2. No murmurs, rubs or gallops. Lungs--clear bilaterally, no respiratory distress, no accessory muscle use. Abdomen--normal bowel sounds and soft. Nontender. Nondistended, no hernias or masses, no organomegaly. Extremities-- 1+ bilateral pretibial pitting edema. Dermatologic--normal skin turgor, normal color, no abnormal lymph nodes, no rash. Neurologic--cranial nerves II through XII grossly intact. Rheumatologic--limited exam. Psychiatric--normal affect. Discharge Exam General: 83 yo female sitting in recliner, NAD but reporting pain to her buttocks from diarrhea HEENT head atraumatic, normocephalic, mmm, trachea midline Resp: even/unlabored, slightly diminished in the bases (IMPROVED) , no significant wheezing/rales, on room air 100% CV: irregularly irregular, rates 70s, +systolic murmur, 1+ b/l LE edema (IMPROVED), pulses present GI: +BS, soft/NT : no cervantes MSK/Neuro: generalized weakness but nonfocal, answering questions appropriately, following commands Psych: AOx3, cooperative with exam Skin: buttocks w/ excoriations/reddened appearance, small pressure sore to left upper medial aspect of sacrum, no cellulitis appearance/significant drainage, blanchable (see wound image) Discharge Plan Discharge Items Patient Disposition: Transfer Inpatient Rehab Fac Reason For Visit: VIRAL/BACTERIAL PNEUMONIA, PLEURAL EFFUSIONS Discharge Diagnosis: COVID-19, bacterial pneumonia, volume overload Goals: You have been hospitalized for an acute medical problem. During your stay at [facility], we have made an effort to correct the problem that brought you to the hospital while keeping you as comfortable as possible. Medications were used to bring your condition under control and your discharge instructions will include directions for any medications you should take after leaving the hospital. Please make sure you see your Primary Care Provider as part of your follow up plan. Activity: As commented below Non-emergency contact: Primary Care Provider and Linen Tech Call non-emergency contact if: you have any medication questions, your symptoms worsen, your pain is not controlled, your pain is worsening, your pain is unusual for you and you have a fever Follow-up/Referrals: Earnest Burroughs MD [Physician] - Agatha Alfaro DO [Primary Care Provider] - Diet: Carb Consistent or DM2, Dialysis Renal and Heart Healthy Fluids: 1200ml (5 cups) Addtl Attending Provider Instructions: You have been hospitalized for weakness/shortness of breath and found to be positive for COVID-19 as well as bacterial pneumonia from such. We utilized IV steroids and antibiotics and nephrology was consulted for dialysis to help remove extra fluid and you were also given a unit of blood for your chronic anemia. We have completed the steroids and no further needs and have been on room air with improvement on chest xray but you will need repeat chest xray in follow up to ensure resolution. You should continue AUGMENTIN twice daily for another 2 days past today to complete a 10 day course. You should continue once daily vancomycin while on antibiotics to prevent c diff. Testing was negative TWICE while inpatient and you can continue the Imodium as needed to prevent diarrhea. You may consider taking this 2-3 times a day for the next couple of days. Wound care saw you prior to discharge and you should continue with offloading pressure to the area and instructions are such: Continue aquacell and foam and continue the zinc/butt paste to the crease for the irritation. You should continue waffle cushion for support/relief as well. It does appear improved from the last evaluation when you were inpatient however this should continue to be monitored. Please follow up with primary care in the next 7 days from discharge to monitor your progress after hospitalization. Please return to the ER with any fever/chills, worsening shortness of breath, increased sputum production, or for any symptoms concerning for you. It has been a pleasure being a part of the medical team providing for you while you have been in the hospital. Take care! Pending Studies at Discharge: No Stand-Alone Forms: My [facility] Skilled Items Patient informed of condition?: Yes DNR: Yes Discharge Level of Care: Acute rehab Communicable Disease: No Discharge Prognosis: Stable Lines: None Urinary Catheter: No Medications and DC Order Prescriptions: New amoxicillin-pot clavulanate 250-125 mg Tablet 1 tab PO BIDM Qty: 5 0RF vancomycin 125 mg capsule 125 mg PO DAILY Qty: 2 0RF Rx Instructions: take 125 mg 4 times per day for 10 days; 2 times per day for 7 days; once daily for 7 days; once every 2-3 days for 2-8 weeks Continued bethanechol chloride 50 mg tablet 50 mg PO BID Qty: 180 3RF furosemide 80 mg tablet 80 mg PO BID Qty: 180 1RF pantoprazole [Protonix] 40 mg tablet,delayed release (DR/EC) 40 mg PO BID Qty: 60 5RF triamcinolone acetonide 0.5 % cream 1 applic topical BID PRN (Reason: skin irritation) Qty: 60 1RF ropinirole 0.5 mg tablet 0.5 mg PO UD Qty: 90 1RF Rx Instructions: Take 0.5mg by mouth in the morning; then take 1.5mg by mouth at bedtime methocarbamol 500 mg tablet 500 mg PO TID PRN (Reason: muscle spasm) Qty: 90 1RF tramadol 50 mg tablet 50 mg PO BID PRN (Reason: Pain) Qty: 60 0RF sertraline 50 mg tablet 50 mg PO DAILY Qty: 30 2RF famotidine 40 mg tablet 40 mg PO BID Qty: 60 2RF calcium acetate 667 mg tablet 667 mg PO UD Rx Instructions: 11/26:Per pt's daughter, pt has been taking Calcium Acetate 667mmg by mouth twice daily with two meals ALONG with Sevelamer 800mmg by mouth twice daily with meals. These are taken with the same meals. Pt's daughter says she was never told to discontinue one so the pt has been taking both at the same time. fluticasone propionate [Flonase Allergy Relief] 50 mcg/actuation spray,suspension 1 spray intranasal DAILY Qty: 16 2RF Rx Instructions: administer into each nostril cholecalciferol (vitamin D3) [Vitamin D3] 1,000 unit Capsule 2,000 unit PO QAM estradiol 0.01 % (0.1 mg/gram) cream 1 applic VAGINAL 3XWK PRN (Reason: ONLY WHEN BURNING) nystatin 100,000 unit/gram powder 1 applic TOPICAL BID PRN (Reason: IRRITATION) cyanocobalamin (vitamin B-12) [Vitamin B-12] 1,000 mcg tablet 1,000 mcg PO QAM Cavilon Durable Barrier 1.3 % cream 1 applic topical DAILY PRN (Reason: skin irritation) Rx Instructions: as needed for skin protection mv,Ca,min-folic acid-vit K1 400-20 mcg Tablet 1 tab PO DAILY calcium carbonate-vitamin D3 [Calcium 600 + D(3)] 600 mg-10 mcg (400 unit) Tablet 1 tab PO DAILY omega-3 fatty acids 1,000 mg Capsule 1,000 mg PO DAILY levothyroxine 150 mcg tablet 150 mcg PO QAM sevelamer carbonate 800 mg tablet 800 mg PO UD Rx Instructions: 11/26:Per pt's daughter, pt has been taking Calcium Acetate 667mmg by mouth twice daily with two meals ALONG with Sevelamer 800mmg by mouth t wice daily with meals. These are taken with the same meals. Pt's daughter says she was never told to discontinue one so the pt has been taking both at the same time. clopidogrel [Plavix] 75 mg tablet 75 mg PO DAILY Qty: 20 0RF aspirin 81 mg capsule 81 mg PO DAILY Qty: 20 0RF Metamucil 3.4 gram/5.4 gram powder 1 tbsp PO DAILY Qty: 660 0RF Rx Instructions: mix into at least 8 oz of water or juice before administering atorvastatin 40 mg tablet 40 mg PO DAILY Qty: 30 0RF Changed loperamide 2 mg Capsule 2 mg PO Q6H PRN (Reason: Diarrhea) Qty: 0 0RF Rx Instructions: administer after each loose stool until symptoms controlled; do not exceed 8 mg per 24 hrs Discontinued vancomycin 125 mg capsule 125 mg PO QID Qty: 30 0RF No Action (DME) Fitted Briefs X-Large Misc See Rx Instructions .Route Qty: 150 5RF Rx Instructions: using 4-5 per day R19.7 Discharge Orders: Discharge Order (Routine); Ordered 01/02/24 Ordered By: Amanda Parker Admission Data Admit Date/Time: 12/25/23 21:37 Attending Provider: Larry Duenas Admit Provider: Jhon Beck Primary Care Provider: Agatha Alfaro Other Providers: Jhon Beck; Luke Villarreal; [facility]; [facility] Other Interventions: Discharge Summary Assessment (RN) Last Done: 01/02/24 16:04 Hospital Stay Data Consultations 12/25/23 20:55 ED Decision to Admit Stat 12/26/23 00:07 Consult Nephrology Routine Diagnostic Imagining Performed Chest X-Ray 12/25/23 18:19 SINGLE VIEW CHEST CLINICAL HISTORY: Cough and dyspnea FINDINGS: 2 AP, portable, upright chest radiographs are compared to study dated 11/30/2023. A right-sided central venous catheter is unchanged in position. The heart is enlarged noting atherosclerotic calcification of the thoracic aorta. There is pulmonary vascular congestion with interstitial edema. There are layering pleural effusions with dependent consolidation. The left pleural effusion appears to be at least partially loculated. No pneumothorax is seen. The bony thorax is grossly intact. Fusion hardware is seen at the thoracolumbar junction. Advanced arthritic change is noted in the shoulders. IMPRESSION: 1. Cardiomegaly with evidence of congestive failure and pulmonary edema. Radiographic follow-up to resolution is recommended. 2. Layering pleural effusions with bibasilar consolidation. ACT 112: Negative or not required by law. Electronically signed by: Eulogio Gaspar M.D. 12/26/2023 7:01 AM Chest X-Ray 12/28/23 09:27 XR chest 2V PA/lateral CLINICAL HISTORY: pleural effusion, shortness of breath COMPARISON STUDY: Chest radiograph December 25, 2023. FINDINGS: A right internal jugular dual lumen catheter is in place. Thoracol umbar spine fusion hardware is partially imaged. There is no pneumothorax. Moderate bilateral pleural effusions persist. A 5.5 cm round left lower lung opacity is present. There is also right basilar opacity. Pulmonary edema has slightly improved. Severe left glenohumeral joint osteoarthritis is incidentally noted. Cardiomediastinal silhouette is stable. Left hilar prominence is noted. IMPRESSION: 1. Cardiomegaly. Interstitial pulmonary edema, slightly improved since prior exam. 2. Persistent moderate bilateral pleural effusions. 5.5 cm round left lower lung opacity. This could reflect fissural fluid or atelectatic lung/consolidation. However, radiographic follow-up to ensure resolution and exclude the possibility of underlying pulmonary lesion is recommended. ACT 112: Negative or not required by law. Electronically signed by: William Hargrove M.D. 12/28/2023 11:21 AM Chest X-Ray 01/01/24 07:52 XR chest 2V PA/lateral CLINICAL HISTORY: follow up TECHNIQUE: 2 views of the chest were obtained. Comparison: Comparison is made to chest radiograph 12/28/2023 FINDINGS: Right dual-lumen catheter is again seen. Posterior fixation hardware is seen in the spine. Cardiomegaly is noted. The aortic arch is calcified. Prominence and cephalization of the vasculature is seen. Moderate bilateral pleural effusions. IMPRESSION: Stable moderate bilateral pleural effusions. Previously noted rounded airspace opacity is decreased in size and may represent consolidation, however follow-up to resolution is recommended. ACT 112: Negative or not required by law. Electronically signed by: Isacc Pak M.D. 01/01/2024 10:20 AM Discharge Instructions Given to Patient (Per Discharging Provider) You have been hospitalized for weakness/shortness of breath and found to be positive for COVID-19 as well as bacterial pneumonia from such. We utilized IV steroids and antibiotics and nephrology was consulted for dialysis to help remove extra fluid and you were also given a unit of blood for your chronic anemia. We have completed the steroids and no further needs and have been on room air with improvement on chest xray but you will need repeat chest xray in follow up to ensure resolution. You should continue AUGMENTIN twice daily for another 2 days past today to complete a 10 day course. You should continue once daily vancomycin while on antibiotics to prevent c diff. Testing was negative TWICE while inpatient and you can continue the Imodium as needed to prevent diarrhea. You may consider taking this 2-3 times a day for the next couple of days. Wound care saw you prior to discharge and you should continue with offloading pressure to the area and instructions are such: Continue aquacell and foam and continue the zinc/butt paste to the crease for the irritation. You should continue waffle cushion for support/relief as well. It does appear improved from the last evaluation when you were inpatient however this should continue to be monitored. Please follow up with primary care in the next 7 days from discharge to monitor your progress after hospitalization. Please return to the ER with any fever/chills, worsening shortness of breath, increased sputum production, or for any symptoms concerning for you. It has been a pleasure being a part of the medical team providing for you while you have been in the hospital. Take care! Supervising Physician Co-Signing Physician Notes The patient was not seen by me. The chart was reviewed. Case discussed with STACEY Flores. Agree with assessment and plan Total Time Total Time Spent Total Time Spent (In Minutes): 60 Coding Level of Care Code 23710 INP/OBS DISCH >30 MIN Diagnoses Coronavirus infection, unspecified B34.2 ESRD on hemodialysis N18.6; Z99.2 Physical deconditioning R53.81 Clostridioides difficile carrier Z22.1
[2024-01-02 11:23] VITALS: RESP 18; TEMP 97.8; O2SAT 100
[2024-01-02 12:42] LABS: Hepatitis B Surface Antibody Immune
[2024-01-02 13:03] VITALS: BP 125/59
[2024-01-02 16:05] VITALS: PULSE 69
[2024-01-03] MEDS ORDERED: EPOETIN ALFA 10,000 UNITS/ML VIAL IV ONE (07:00)
--- NOTE | 2024-01-03 16:33 | Coding Query ---
CONGESTIVE HEART FAILURE To Promote full compliance with coding requirements relating to patient care, physician participation is requested in all cases of medical records coder uncertainty. Please assist us with the following questions. A diagnosis of Congestive Heart Failure is documented in the patient's medical record. To accurately code this diagnosis and to compare patient severity, we ask that you specify the type of heart failure by placing an X within the parenthesis (x). SYSTOLIC HEART FAILURE ( ) Acute ( ) Chronic ( ) Acute on Chronic ( ) Rheumatic ( ) Unknown DIASTOLIC HEART FAILURE ( ) Acute ( ) Chronic (x ) Acute on Chronic ( ) Rheumatic ( ) Unknown COMBINED SYSTOLIC AND DIASTOLIC HEART FAILURE ( ) Acute ( ) Chronic ( ) Acute on Chronic ( ) Rheumatic ( ) Unknown Was the CHF Present On Admission? Please check the appropriate box: (x ) Present on Admission ( ) Not Present On Admission ( ) Clinically undetermined Thank you Ken OLVERA
== END 2024-01-02 16:31 | DRG 193 ==
LOC: ED 18:08 → 2E 21:37 → SUATTDRO 21:37 → 2E 23:11

== ENCOUNTER 2024-01-30 10:54 | Inpatient (IN) ==
--- NOTE | 2024-01-30 11:39 | XRay Report ---
XR chest 1V portable CLINICAL HISTORY: weakness COMPARISON STUDY: Chest radiograph January 01, 2024. FINDINGS: Operative findings within the spine are partially imaged. A dual lumen right internal jugul ar catheter remains in place. There is no pneumothorax. Cardiomegaly is again noted. Pulmonary edema persists. Moderate bilateral pleural effusions, left larger than right with associated bibasilar opac ities are present. The left pleural effusion has slightly decreased. A round density within the left lower lung persists. IMPRESSION: 1. Cardiomegaly with persistent pulmonary edema and moderate bilateral pleural effusions. 2. Round density within the left lower lung. This remains indeterminate and could represent atelectas is however an underlying lesion cannot be excluded. Continued radiographic follow-up to ensure resolu tion is recommended. ACT 112: Negative or not required by law. Electronically signed by: William Hargrove M.D. 01/30/2024 11:37 AM
[2024-01-30 11:45] LABS: Basophils # (auto) 0.04 K/uL (0.00-0.20); Basophils % (auto) 0.5 %; Eosinophils # (auto) 0.03 K/uL (0.00-0.50); Eosinophils % (auto) 0.4 %; Hematocrit (blood only) 29.1 % (37.0-47.0); Hemoglobin 9.1 g/dl (12.0-16.0); Immature Granulocytes # (auto) 0.03 K/uL (0.01-0.20); Immature Granulocytes % (auto) 0.4 %; Lymphocytes # (auto) 0.42 K/uL (1.20-3.40); Lymphocytes % (auto) 5.6 %; Mean Corpuscular Hemoglobin 29.3 pg (25.0-34.0); Mean Corpuscular Hgb Conc 31.3 g/dL (32.0-36.0); Mean Corpuscular Volume 93.6 fL (80.0-100.0); Mean Platelet Volume 11.2 fL (9.4-12.4); Monocytes # (auto) 0.68 K/uL (0.11-0.59); Neutrophils # (auto) 6.35 K/uL (1.40-6.50); Neutrophils % (auto) 84.1 %; Platelet Count 206 K/uL (130-400); RDW Coefficient of Variation 20.3 % (11.5-14.5); RDW Standard Deviation 68.5 fL (36.4-46.3); Red Blood Count 3.11 M/uL (4.20-5.40); White Blood Count 7.55 K/ul (4.8-10.8)
[2024-01-30 12:00] LABS: BUN Creatinine Ratio 11.3 (10-20); Bilirubin,Total 0.5 mg/dl (0.2-1.0); Calcium 7.9 mg/dl (8.6-10.3); Creatinine Clr Calc Pharmacy 10.5 ml/min; Globulin 2.9 gm/dl (2.5-4.0); Potassium 3.8 mmol/L (3.5-5.1); Total Protein 5.9 gm/dl (6.0-8.3)
[2024-01-30 12:08] LABS: Anisocytosis Present; Ovalocytes 2+; Polychromasia 1+; Tear Drop Cells 1+
[2024-01-30 12:11] LABS: Troponin I High Sensitivity 84.7 pg/ml (0-14)
--- NOTE | 2024-01-30 12:12 | Emergency Department Note ---
Impression & Plan Bilateral pleural effusion, Exertional dyspnea, CHF exacerbation ED Provider Note NAME: NIURKA QUIÑONES AGE: 83 SEX: F : 1940 ARRIVES VIA: Ambulance INFORMANT: Patient, ED PROVIDER(S): Neelam Guillen MD CHIEF COMPLAINT: Unable to walk HPI: This an 83-year-old female presenting for inability to walk. Patient does complain of generalized weakness and able to ambulate over the past few days. She notes that she does not know why this is happening. She has had previous dialysis, last session was yesterday. Otherwise she notes no significant other changes including fever, chills. She does note a new cough with white productive sputum. She was here previously for pneumonia a few weeks ago. No stomach leg swelling. No leg pain. ROS: See above HPI for pertinent positives & negatives. A total of 10 systems reviewed and were otherwise negative. PAST MEDICAL HISTORY: See Below PAST SURGICAL HISTORY: See Below FAMILY HISTORY: See Below SOCIAL HISTORY: See Below HOME MEDICATIONS: See Below ALLERGIES: See Below VITALS: See Below PHYSICAL EXAMINATION: General: Chronically unwell appearing Head: Normocephalic and atraumatic Eyes: Normal inspection, extraocular muscles intact Ear, nose, throat: Normal external exam Neck: Normal range of motion Respiratory: lungs clear to auscultation bilaterally Cardiovascular: Regular rate/rhythm, holosystolic murmur, right Port-A-Cath GI: soft, nontender, no guarding or rebound Extremities: Bilateral lower extremity redness without significant swelling Neuro: The patient awake and alert, appropriately conversive, no focal deficits, symmetric faces Skin: Warm, dry, and intact MEDICAL DECISION MAKING: This is a an 83-year-old female present for inability to walk. Patient does have crackles at the bases, slightly diminished. She has a clear murmur. She is dialysis dependent. Consider CHF, fluid overload. Consider ACS, PE as less likely as patient has no current chest pain or hypoxia. - Blood work is reviewed showing a stable anemia. Otherwise electrolytes are within normal limits. Creatinine is 3.02. Troponin elevated at 84, consistent with ESRD on hemodialysis. BNP also elevated consistent with ESRD -Chest x-ray Independently interpreted by me showing bilateral pleural effusions, cardiomegaly, possible left middle opacity -Patient will require mission due to weakness, exertional dyspnea. She has clear pleural effusions on exam, likely needs further management of this -Care discussed with Dr. Stephens for admission Differential diagnosis: CHF, fluid overload, anemia, dehydration, ACS Diagnostics interpreted by me: ECG: ECG independently interpreted by me with normal sinus rhythm, rate of 83, first-degree AV block, right bundle branch block, normal QTc, no ST segment elevations consistent with STEMI criteria Cardiac Monitoring: An order was placed for continuous cardiac monitoring. The monitor shows a rate of 78 with sinus rhythm. Past Med/Surg History Problem List (Updated 01/30/24 @ 10:02 by Agatha Alfaro DO) Frailty syndrome in geriatric patient ESRD on hemodialysis (Acute) Coronavirus infection, unspecified (Acute) Pneumonia (Acute) Cerebellar stroke Acute UTI (urinary tract infection) (Acute) Pressure ulcer Fall (Acute) Facial droop (Acute) Right sided weakness (Acute) Sacral wound Generalized weakness (Acute) Ambulatory dysfunction (Acute) Pleural effusion Anemia (Acute) Shakiness (Acute) Bilateral edema of lower extremity (Acute) Physical deconditioning Ascites Aortic stenosis 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 Palliative care by specialist Pancytopenia 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 aguirre Osteoarthritis Hyperlipidemia History of CVA (cerebrovascular accident) (2019) ~5years ago, woke up with weakness in her rt hand; L lacunar infarct; previously on plavix>no residual effects Hiatal hernia GERD without esophagitis Fatty liver Essential tremor MINOR IN HAND Diabetic retinopathy Chronic hyponatremia Chronic diastolic heart failure CAD (coronary artery disease) Anxiety Anemia of chronic disease GAVE (gastric antral vascular ectasia) (Acute) Medical History (Updated 01/30/24 @ 10:02 by Agatha Alfaro DO) DVT prophylaxis Generalized weakness Sepsis Pleural effusion, bilateral Pericardial effusion Non-ST elevation IL (NSTEMI) Pancytopenia Hemorrhoids ESRD on hemodialysis tuesdays, , and saturdays currently History of GI bleed hx 08/2021, given transfusion-per medical record REASON FOR UPCOMING PROCEDURE Hx of atrial fibrillation, no current medication per medical report History of renal dialysis TUES,THUR AND SAT ([facility] FROM [facility]) ACCESS SITE RIGHT SIDE OF CHEST/ ? DETAILS Resistant hypertension Diabetes mellitus, type 2 Hearing deficit no hearing aids Urinary urgency Secondary hyperparathyroidism of renal origin First degree AV block Hypertension Hypothyroidism Surgical History History of esophagogastroduodenoscopy (EGD) multiple---last 08/01/2022 @ [facility] 04/06/[address] [facility] [address] Mich Pacheco- EGD- Gastric antral vascular ectasia with bleeding, treated with argon plasma coagulation (APC); Few angioectasias in the duodenum, treated with APC S/P pericardiocentesis 08/2021, [facility], w/dr moura Hx of cardiac catheterization 08/2021, [facility] w/Dr. Moura for increased cardiac pressures; no stents History of tooth extraction History of colonoscopy H/O varicose vein ligation S/P trigger finger release S/P knee replacement RT/LEFT History of bladder suspension procedure X 2 S/P carpal tunnel release RT/LEFT History of back surgery (04/2010) X 2 S/P hysterectomy [place] Family History Father Alcohol abuse Heart disease Myocardial infarction Hypertension Sister Pancreatic cancer Diabetes Breast cancer Brother Diabetes Alcohol abuse Stroke Other Cancer No family history of adverse response to anesthesia Denies family history of Ovarian cancer Prostate cancer Colorectal cancer Social History Smoking Status: Never smoker Second Hand Exposure: No; Do You Dip or Chew Tobacco: No; Hx Alcohol Use: No Hx Substance Use: No Preferred Language: Barbadian Communication Ability: Effective Visual Impairment: No Limitations Hearing Ability: Normal Hat Lining Blocker Required: No Beliefs That Will Affect Care: Mandaen Mandaen Beliefs: Jewish marital status: Single Current Living Situation: Alone Current Living Situation Comment: 1 story home with ramp to enter home current occupational status: retired How many Children do You have: 2 Feels Safe at Home: Yes Childhood Exposure to Second-Hand Smoke: No Diet: regular Diet Comment: regular caffeine: Yes (Coffee x 2 cups per day.) during the past year weight has: remained stable Dental Care, Regularly: No Physical Activity Frequency: Does not Exercise Seatbelt Use: always Sunscreen Use: Yes Assistive Devices: Walker and Wheelchair Allergies Allergies Allergy/AdvReac Type Severity Reaction Status Date / Time sulfamethoxazole AdvReac Unknown REMOTE Verified 12/20/23 08:19 [From Bactrim] HX/PT NOT SURE REACTION trimethoprim [From Bactrim] AdvReac Unknown REMOTE Verified 12/20/23 08:19 HX/PT NOT SURE REACTION Home Meds Home Medications Medication Instructions Recorded Confirmed cholecalciferol (vitamin D3) 25 2,000 unit PO QAM 05/29/18 01/30/24 mcg (1,000 unit) capsule (Vitamin D3) cyanocobalamin (vitamin B-12) 1,000 mcg PO QAM 11/12/20 01/30/24 1,000 mcg tablet (Vitamin B-12) estradiol 0.01% (0.1 mg/gram) 1 applic vaginal 3XWK PRN ONLY 05/30/22 01/30/24 vaginal cream WHEN BURNING calcium acetate 667 mg tablet 667 mg PO UD 07/06/23 01/30/24 calcium 600 mg (as 1 tab PO DAILY 07/23/23 01/30/24 carbonate)-vitamin D3 10 mcg (400 unit) tablet (Calcium 600 + D(3)) omega-3 fatty acids 1,000 mg 1,000 mg PO DAILY 07/23/23 01/30/24 capsule dimethicone 1.3 % topical cream 1 applic topical DAILY PRN skin 08/25/23 01/30/24 (Cavilon Durable Barrier) irritation fthbzfbplkpa-zxghgrzt-zovszkc-folic 1 tab PO DAILY 10/30/23 01/30/24 acid 400 mcg-vit K1 20 mcg tablet levothyroxine 150 mcg tablet 150 mcg PO QAM 11/27/23 01/30/24 sevelamer carbonate 800 mg tablet 800 mg PO UD 11/27/23 01/30/24 bethanechol chloride 50 mg tablet 50 mg PO BID 01/30/24 01/30/24 Previous Rx's Medication Instructions Recorded diaper,brief,adult,disposable #150 ea 12/07/21 (Fitted Briefs X-Large) furosemide 80 mg tablet 80 mg PO BID #180 tabs 05/28/23 pantoprazole 40 mg tablet,delayed 40 mg PO BID #60 tabs 06/27/23 release (Protonix) triamcinolone acetonide 0.5 % 1 applic topical BID PRN skin 07/03/23 topical cream irritation #60 grams fluticasone propionate 50 1 spray intranasal DAILY #16 grams 08/16/23 mcg/actuation nasal spray,suspension (Flonase Allergy Relief) tramadol 50 mg tablet 50 mg PO BID PRN Pain #60 tabs 10/29/23 sertraline 50 mg tablet 50 mg PO DAILY #30 tabs 11/12/23 famotidine 40 mg tablet 40 mg PO BID #60 tabs 11/19/23 atorvastatin 40 mg tablet 40 mg PO DAILY #30 tabs 12/05/23 psyllium husk 3.4 gram/5.4 gram 1 tbsp PO DAILY #660 grams 12/05/23 oral powder (Metamucil) loperamide 2 mg capsule 2 mg PO Q6H PRN Diarrhea #0 caps 01/02/24 vancomycin 125 mg capsule 125 mg PO DAILY #2 caps 01/02/24 methocarbamol 500 mg tablet 500 mg PO TID PRN muscle spasm #90 01/25/24 tabs ropinirole 0.5 mg tablet 0.5 mg PO UD #90 tabs 01/25/24 clopidogrel 75 mg tablet (Plavix) 75 mg PO DAILY #90 tabs 01/29/24 nystatin 100,000 unit/gram topical 1 applic topical BID PRN 01/30/24 powder IRRITATION #60 grams Results & Data (ED) Vital Signs Vital Signs - 24 hr 01/30/24 10:54 01/30/24 11:12 01/30/24 11:41 Temperature 36.6 C Temperature Source Oral Pulse Rate 82 82 79 Pulse Rate from SpO2 Sensor Respiratory Rate 18 18 Respiratory Effort / Characteristics Non-Labored Respiratory Depth Normal Respiratory Pattern Regular Blood Pressure 120/54 L Blood Pressure Mean 76 Pulse Oximetry 99 99 Oxygen Delivery Method Room Air Room Air Sepsis Recent Fever Within 48 Hours No Sepsis New/Unexplained Change in Mental Status N/A Sepsis Action Taken by Nursing No Action Required 01/30/24 12:00 01/30/24 12:30 Temperature Temperature Source Pulse Rate 80 78 Pulse Rate from SpO2 Sensor 80 79 Respiratory Rate 14 13 Respiratory Effort / Characteristics Respiratory Depth Respiratory Pattern Blood Pressure 125/79 130/72 Blood Pressure Mean 94 90 Pulse Oximetry 100 100 Oxygen Delivery Method Sepsis Recent Fever Within 48 Hours Sepsis New/Unexplained Change in Mental Status Sepsis Action Taken by Nursing Laboratory Data 01/30/24 11:12 01/30/24 11:12 Lab Results 01/30/24 01/30/24 01/30/24 Range/Units 11:12 11: 11:25 WBC 7.55 (4.8-10.8) K/ul RBC 3.11 L (4.20-5.40) M/uL Hgb 9.1 L (12.0-16.0) g/dl Hct 29.1 L (37.0-47.0) % MCV 93.6 (80.0-100.0) fL MCH 29.3 (25.0-34.0) pg MCHC 31.3 L (32.0-36.0) g/dL RDW Std Deviation 68.5 H (36.4-46.3) fL RDW Coeff of Irasema 20.3 H (11.5-14.5) % Plt Count 206 (130-400) K/uL MPV 11.2 (9.4-12.4) fL Immature Gran % (Auto) 0.4 % Neut % (Auto) 84.1 % Lymph % (Auto) 5.6 % Emanuel % (Auto) 9.0 % Eos % (Auto) 0.4 % Baso % (Auto) 0.5 % Neut # (Auto) 6.35 (1.40-6.50) K/uL Lymph # (Auto) 0.42 L (1.20-3.40) K/uL Emanuel # (Auto) 0.68 H (0.11-0.59) K/uL Eos # (Auto) 0.03 (0.00-0.50) K/uL Baso # (Auto) 0.04 (0.00-0.20) K/uL Immature Gran # (Auto) 0.03 (0.01-0.20) K/uL Polychromasia 1+ Anisocytosis Present Tear Drop Cells 1+ Ovalocytes 2+ Sodium 139 (136-145) mmol/L Potassium 3.8 (3.5-5.1) mmol/L Chloride 99 (98-107) mmol/L Carbon Dioxide 31 (21-32) mmol/L Anion Gap 9 (3-11) BUN 34 H (6-23) mg/dl Creatinine 3.02 H (0.6-1.2) mg/dl Est Cr Clr Drug Dosing 10.5 ml/min eGFR 14.66 BUN/Creatinine Ratio 11.3 (10-20) Glucose 180 H (70-99(Fasting)) mg/dl Lactate 1.6 (0.4-2.0) mmol/L Calcium 7.9 L (8.6-10.3) mg/dl Total Bilirubin 0.5 (0.2-1.0) mg/dl AST 26 (13-39) U/L ALT 15 (7-52) U/L Alkaline Phosphatase 354 H (34-104) U/L Troponin I High Sens 84.7 H* (0-14) pg/ml B-Natriuretic Peptide 1189 H (0-100) pg/ml Total Protein 5.9 L (6.0-8.3) gm/dl Albumin 3.0 L (3.4-5.0) gm/dl Globulin 2.9 (2.5-4.0) gm/dl Albumin/Globulin Ratio 1.0 (0.9-2) TSH 3.442 (0.300-4.500) uIu/ml Adenovirus (PCR) Not Detected (NotDetected) B. pertussis DNA (PCR) Not Detected (NotDetected) B.parapertussis DNA PCR Not Detected (NotDetected) C. pneumoniae DNA (PCR) Not Detected (NotDetected) Coronavirus OC43 (PCR) Not Detected (NotDetected) Coronavirus HKU1 (PCR) Not Detected (NotDetected) Coronavirus 229E (PCR) Not Detected (NotDetected) SARS-CoV-2 (PCR) Not Detected (NotDetected) Coronavirus NL63 (PCR) Not Detected (NotDetected) Human Metapneumovir PCR Not Detected (NotDetected) Influenza Type A (PCR) Not Detected (NotDetected) Influenza Type B (PCR) Not Detected (NotDetected) M. pneumoniae (PCR) Not Detected (NotDetected) Parainfluenza 1 (PCR) Not Detected (NotDetected) Parainfluenza 2 (PCR) Not Detected (NotDetected) Parainfluenza 3 (PCR) Not Detected (NotDetected) Parainfluenza 4 (PCR) Not Detected (NotDetected) RSV (PCR) Not Detected (NotDetected) Entero/Rhino (PCR) Not Detected (NotDetected) Imaging Data Radiologist's Impression: Chest X-Ray 01/30/24 11:12 XR chest 1V portable CLINICAL HISTORY: weakness COMPARISON STUDY: Chest radiograph January 01, 2024. FINDINGS: Operative findings within the spine are partially imaged. A dual lumen right internal jugular catheter remains in place. There is no pneumothorax. Cardiomegaly is again noted. Pulmonary edema persists. Moderate bilateral pleural effusions, left larger than right with associated bibasilar opacities are present. The left pleural effusion has slightly decreased. A round density within the left lower lung persists. IMPRESSION: 1. Cardiomegaly with persistent pulmonary edema and moderate bilateral pleural effusions. 2. Round density within the left lower lung. This remains indeterminate and could represent atelectasis however an underlying lesion cannot be excluded. Continued radiographic follow-up to ensure resolution is recommended. ACT 112: Negative or not required by law. Electronically signed by: William Hargrove M.D. 01/30/2024 11:37 AM Discharge Plan Visit Data Chief Complaint: Weakness Stated Complaint: WEAKNESS, UNABLE TO AMBULATE ED Provider: Neelam Guillen Discharge Problem: Bilateral pleural effusion, Exertional dyspnea, CHF exacerbation Forms Stand Alone Forms: [facility] Prescriptions Prescriptions: No Action (DME) Fitted Briefs X-Large Misc See Rx Instructions .Route Qty: 150 5RF Rx Instructions: using 4-5 per day R19.7 furosemide 80 mg tablet 80 mg PO BID Qty: 180 1RF pantoprazole [Protonix] 40 mg tablet,delayed release (DR/EC) 40 mg PO BID Qty: 60 5RF triamcinolone acetonide 0.5 % cream 1 applic topical BID PRN (Reason: skin irritation) Qty: 60 1RF tramadol 50 mg tablet 50 mg PO BID PRN (Reason: Pain) Qty: 60 0RF sertraline 50 mg tablet 50 mg PO DAILY Qty: 30 2RF famotidine 40 mg tablet 40 mg PO BID Qty: 60 2RF methocarbamol 500 mg tablet 500 mg PO TID PRN (Reason: muscle spasm) Qty: 90 1RF ropinirole 0.5 mg tablet 0.5 mg PO UD Qty: 90 1RF Rx Instructions: Take 0.5mg by mouth in the morning; then take 1.5mg by mouth at bedtime clopidogrel [Plavix] 75 mg tablet 75 mg PO DAILY Qty: 90 1RF calcium acetate 667 mg tablet 667 mg PO UD Rx Instructions: 11/26:Per pt's daughter, pt has been taking Calcium Acetate 667mmg by mouth twice daily with two meals ALONG with Sevelamer 800mmg by mouth twice daily with meals. These are taken with the same meals. Pt's daughter says she was never told to discontinue one so the pt has been taking both at the same time. fluticasone propionate [Flonase Allergy Relief] 50 mcg/actuation spray,suspension 1 spray intranasal DAILY Qty: 16 2RF Rx Instructions: administer into each nostril bethanechol chloride 50 mg tablet 50 mg PO BID nystatin 100,000 unit/gram powder 1 applic TOPICAL BID PRN (Reason: IRRITATION) Qty: 60 0RF cholecalciferol (vitamin D3) [Vitamin D3] 1,000 unit Capsule 2,000 unit PO QAM estradiol 0.01 % (0.1 mg/gram) cream 1 applic VAGINAL 3XWK PRN (Reason: ONLY WHEN BURNING) cyanocobalamin (vitamin B-12) [Vitamin B-12] 1,000 mcg tablet 1,000 mcg PO QAM Cavilon Durable Barrier 1.3 % cream 1 applic topical DAILY PRN (Reason: skin irritation) Rx Instructions: as needed for skin protection mv,Ca,min-folic acid-vit K1 400-20 mcg Tablet 1 tab PO DAILY vancomycin 125 mg capsule 125 mg PO DAILY Qty: 2 0RF Rx Instructions: take 125 mg 4 times per day for 10 days; 2 times per day for 7 days; once daily for 7 days; once every 2-3 days for 2-8 weeks loperamide 2 mg Capsule 2 mg PO Q6H PRN (Reason: Diarrhea) Qty: 0 0RF Rx Instructions: administer after each loose stool until symptoms controlled; do not exceed 8 mg per 24 hrs calcium carbonate-vitamin D3 [Calcium 600 + D(3)] 600 mg-10 mcg (400 unit) Tablet 1 tab PO DAILY omega-3 fatty acids 1,000 mg Capsule 1,000 mg PO DAILY levothyroxine 150 mcg tablet 150 mcg PO QAM sevelamer carbonate 800 mg tablet 800 mg PO UD Rx Instructions: 11/26:Per pt's daughter, pt has been taking Calcium Acetate 667mmg by mouth twice daily with two meals ALONG with Sevelamer 800mmg by mouth twice daily with meals. These are taken with the same meals. Pt's daughter says she was never told to discontinue one so the pt has been taking both at the same time. Metamucil 3.4 gram/5.4 gram powder 1 tbsp PO DAILY Qty: 660 0RF Rx Instructions: mix into at least 8 oz of water or juice before administering atorvastatin 40 mg tablet 40 mg PO DAILY Qty: 30 0RF Referrals Referrals: Agatha Alfaro DO [Primary Care Provider] -
[2024-01-30 12:15] LABS: Thyroid Stimulating Hormone 3.442 uIu/ml (0.300-4.500)
[2024-01-30 12:22] LABS: Adenovirus PCR Not Detected (NotDetected); Bordetella parapertussis PCR Not Detected (NotDetected); Bordetella pertussis PCR Not Detected (NotDetected); Chlamydia pneumoniae PCR Not Detected (NotDetected); Coronavirus 229E PCR Not Detected (NotDetected); Coronavirus CoV-2 (COVID19)PCR Not Detected (NotDetected); Coronavirus HKU1 PCR Not Detected (NotDetected); Coronavirus NL63 PCR Not Detected (NotDetected); Coronavirus OC43PCR Not Detected (NotDetected); Human Metapneumovirus PCR Not Detected (NotDetected); Influenza A PCR Not Detected (NotDetected); Influenza B PCR Not Detected (NotDetected); Mycoplasma pneumoniae PCR Not Detected (NotDetected); Parainfluenza Virus 1 PCR Not Detected (NotDetected); Parainfluenza Virus 2 PCR Not Detected (NotDetected); Parainfluenza Virus 3 PCR Not Detected (NotDetected); Parainfluenza Virus 4 PCR Not Detected (NotDetected); Respiratory Syncytial VirusPCR Not Detected (NotDetected); Rhinovirus/Enterovirus PCR Not Detected (NotDetected)
[2024-01-30] MEDS: OPTIRAY 320 100ml IV ONE (14:01)
--- NOTE | 2024-01-30 14:17 | History & Physical Report ---
Date of Service January 30, 2024 Assessment & Plan (1) Acute on chronic heart failure with preserved ejection fraction: Plan: In setting of ESRD with dialysis and valvular heart disease (severe aortic stenosis and moderate mitral regurgitation) Poor TAVR candidate but this does not appear to have been previously discussed with cardiology - will consult Consider midodrine if BP limiting taking off more fluid with dialysis Consult nephrology for dialysis management - as discussed with Dr Villarreal planning on doing this later today Continue her usual furosemide dosing as she continues to make urine but fluid management is mostly with dialysis Shortness of breath suspect mostly due to this although underlying mass noted on CXR will therefore get CT to further assess (2) Frailty syndrome in geriatric patient: Plan: PT/OT. Daughter not available on admission for ongoing goals of care discussions. (3) ESRD on hemodialysis: Plan: Consult nephrology for ongoing dialysis mangement (4) Abnormal chest xray: Plan: CT Chest with IV contrast to assess for underlying mass (5) Clostridioides difficile carrier: Plan: If needing antibiotics henok need to go back on vancomycin daily for duration of antibiotics and 7 days afterwards but has finished recent course (6) Diabetes mellitus type 2 with complications: Plan: HbA1C 5.2 although possibly underestimate given number of blood transfusions, she is not on any medications for this an prior glucose levels have been acceptable therefore no need to start treatment currently (7) GAVE (gastric antral vascular ectasia): Plan: Noted significant history of this with 68 prior blood transfusions since 2019 Continue pantoprazole 40 mg PO BID and famotidine 40mg PO BID Plan VTE Prophyalxis - avoiding chemical prophylaxis due to history of GAVE and needing recurrent blood transfusions Diet - T2DM, heart healthy, low Na Disposition - admit to med/tele Admission and Anticipated Discharge Date Admission Date: January 30, 2024 History of Present Illness Chief Complaint: Shortness of breath Primary Care Provider: DO Sully Anderson Giana is an 83 year old female who presents to the ER with shortness of breath. She reports doing well after recent admission for coronavirus infection with secondary bacterial pneumonia up until the last 2 days when she has been getting increasingly short of breath. Shortness of breath mild at rest but with significant orthopnea and severe on any mild movement. No fever, chills, chest pain, cough, sinus congestion. Associated weight gain and leg swelling noted. As discussed with Dr Villarreal she was unable to tolerate dialysis enough to get her down to her estimated dry weight in dialysis yesterday. Allergies Allergy/AdvReac Type Severity Reaction Status Date / Time sulfamethoxazole AdvReac Unknown REMOTE Verified 12/20/23 08:19 [From Bactrim] HX/PT NOT SURE REACTION trimethoprim [From Bactrim] AdvReac Unknown REMOTE Verified 12/20/23 08:19 HX/PT NOT SURE REACTION Home Medications Medication Instructions Recorded Confirmed Type cholecalciferol (vitamin D3) 25 2,000 unit PO QAM 05/29/18 01/30/24 History mcg (1,000 unit) capsule (Vitamin D3) cyanocobalamin (vitamin B-12) 1,000 mcg PO QAM 11/12/20 01/30/24 History 1,000 mcg tablet (Vitamin B-12) diaper,brief,adult,disposable #150 ea 12/07/21 01/30/24 Rx (Fitted Briefs X-Large) estradiol 0.01% (0.1 mg/gram) 1 applic vaginal 3XWK PRN ONLY 05/30/22 01/30/24 History vaginal cream WHEN BURNING triamcinolone acetonide 0.5 % 1 applic topical BID PRN skin 07/03/23 01/30/24 Rx topical cream irritation #60 grams calcium 600 mg (as 1 tab PO DAILY 07/23/23 01/30/24 History carbonate)-vitamin D3 10 mcg (400 unit) tablet (Calcium 600 + D(3)) omega-3 fatty acids 1,000 mg 1,000 mg PO DAILY 07/23/23 01/30/24 History capsule fluticasone propionate 50 1 spray intranasal DAILY #16 grams 08/16/23 01/30/24 Rx mcg/actuation nasal spray,suspension (Flonase Allergy Relief) dimethicone 1.3 % topical cream 1 applic topical DAILY PRN skin 08/25/23 01/30/24 History (Cavilon Durable Barrier) irritation tramadol 50 mg tablet 50 mg PO BID PRN Pain #60 tabs 10/29/23 01/30/24 Rx brqcdkykixfq-xitldytn-uqigtam-folic 1 tab PO DAILY 10/30/23 01/30/24 History acid 400 mcg-vit K1 20 mcg tablet sertraline 50 mg tablet 50 mg PO DAILY #30 tabs 11/12/23 01/30/24 Rx levothyroxine 150 mcg tablet 150 mcg PO QAM 11/27/23 01/30/24 History sevelamer carbonate 800 mg tablet 800 mg PO TIDWMEAL 11/27/23 01/30/24 History psyllium husk 3.4 gram/5.4 gram 1 tbsp PO DAILY #660 grams 12/05/23 01/30/24 Rx oral powder (Metamucil) loperamide 2 mg capsule 2 mg PO Q6H PRN Diarrhea #0 caps 01/02/24 01/30/24 Rx methocarbamol 500 mg tablet 500 mg PO TID PRN muscle spasm #90 01/25/24 01/30/24 Rx tabs ropinirole 0.5 mg tablet 0.5 mg PO UD #90 tabs 01/25/24 01/30/24 Rx clopidogrel 75 mg tablet (Plavix) 75 mg PO DAILY #90 tabs 01/29/24 01/30/24 Rx atorvastatin 40 mg tablet 0 mg PO DAILY 01/30/24 01/30/24 History bethanechol chloride 50 mg tablet 0 mg PO BID 01/30/24 01/30/24 History famotidine 40 mg tablet 0 mg PO BID 01/30/24 01/30/24 History furosemide 80 mg tablet 0 mg PO BID 01/30/24 01/30/24 History nystatin 100,000 unit/gram topical 1 applic topical BID PRN 01/30/24 01/30/24 Rx powder IRRITATION #60 grams pantoprazole 40 mg tablet,delayed 0 mg PO BID 01/30/24 01/30/24 History release vancomycin 125 mg capsule 125 mg PO UD 01/30/24 01/30/24 History Past Med/Surg History Problem List (Updated 01/31/24 @ 06:49 by Davian Stephens MD) Abnormal chest xray Valvular heart disease Acute on chronic heart failure with preserved ejection fraction Frailty syndrome in geriatric patient ESRD on hemodialysis (Acute) Coronavirus infection, unspecified (Acute) Pneumonia (Acute) Cerebellar stroke Acute UTI (urinary tract infection) (Acute) Pressure ulcer Fall (Acute) Facial droop (Acute) Right sided weakness (Acute) Sacral wound Generalized weakness (Acute) Ambulatory dysfunction (Acute) Pleural effusion Anemia (Acute) Shakiness (Acute) Bilateral edema of lower extremity (Acute) Physical deconditioning Ascites Aortic stenosis 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 Palliative care by specialist Pancytopenia 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 aguirre Osteoarthritis Hyperlipidemia History of CVA (cerebrovascular accident) (2019) ~5years ago, woke up with weakness in her rt hand; L lacunar infarct; previously on plavix>no residual effects Hiatal hernia GERD without esophagitis Fatty liver Essential tremor MINOR IN HAND Diabetic retinopathy Chronic hyponatremia Chronic diastolic heart failure CAD (coronary artery disease) Anxiety Anemia of chronic disease GAVE (gastric antral vascular ectasia) (Acute) Medical History (Updated 01/31/24 @ 06:49 by Davian Stephens MD) DVT prophylaxis Generalized weakness Sepsis Pleural effusion, bilateral Pericardial effusion Non-ST elevation FL (NSTEMI) Pancytopenia Hemorrhoids ESRD on hemodialysis tuesdays, , and saturdays currently History of GI bleed hx 08/2021, given transfusion-per medical record REASON FOR UPCOMING PROCEDURE Hx of atrial fibrillation, no current medication per medical report History of renal dialysis , AND SUN ([facility]CROSS FROM [facility]) ACCESS SITE RIGHT SIDE OF CHEST/ ? DETAILS Resistant hypertension Diabetes mellitus, type 2 Hearing deficit no hearing aids Urinary urgency Secondary hyperparathyroidism of renal origin First degree AV block Hypertension Hypothyroidism Surgical History History of esophagogastroduodenoscopy (EGD) multiple---last 08/01/2022 @ [facility] 04/06/22 at [facility] with Dr. Mich Pacheco- EGD- Gastric antral vascular ectasia with bleeding, treated with argon plasma coagulation (APC); Few angioectasias in the duodenum, treated with APC S/P pericardiocentesis 08/2021, [facility], w/dr moura Hx of cardiac catheterization 08/2021, [facility] w/Dr. Moura for increased cardiac pressures; no stents History of tooth extraction History of colonoscopy H/O varicose vein ligation S/P trigger finger release S/P knee replacement RT/LEFT History of bladder suspension procedure X 2 S/P carpal tunnel release RT/LEFT History of back surgery (04/2010) X 2 S/P hysterectomy [place] Family History Father Alcohol abuse Heart disease Myocardial infarction Hypertension Sister Pancreatic cancer Diabetes Breast cancer Brother Diabetes Alcohol abuse Stroke Other Cancer No family history of adverse response to anesthesia Denies family history of Ovarian cancer Prostate cancer Colorectal cancer Social History Smoking Status: Never smoker Second Hand Exposure: No; Do You Dip or Chew Tobacco: No; Hx Alcohol Use: No Hx Substance Use: No Preferred Language: Sinhala Communication Ability: Effective Visual Impairment: No Limitations Hearing Ability: Normal Brass Bobbin Winder Required: No Beliefs That Will Affect Care: Spiritism Spiritism Beliefs: Esther marital status: Single Current Living Situation: Alone Current Living Situation Comment: 1 story home with ramp to enter home current occupational status: retired How many Children do You have: 2 Feels Safe at Home: Yes Childhood Exposure to Second-Hand Smoke: No Diet: regular Diet Comment: regular caffeine: Yes (Coffee x 2 cups per day.) during the past year weight has: remained stable Dental Care, Regularly: No Physical Activity Frequency: Does not Exercise Seatbelt Use: always Sunscreen Use: Yes Assistive Devices: Denture - Upper, Denture - Lower, Walker and Wheelchair Review of Systems Review of Systems: All systems reviewed & are unremarkable except as noted in HPI & below Physical Exam Constitutional: well developed; + not well nourished and no acute distress Respiratory: normal respiratory effort; no respiratory distress Auscultation: + diminished lung sounds (bibasal); no crackles and no wheezes Cardiovascular: Rate/Rhythm: regular rate and regular rhythm Heart Sounds: + murmur (YAW LUSB and holosystolic at apex 5/6) Extremities: normal capillary refill, + calf tenderness (bilateral) and + pedal edema (2+ tight bilateral lower extremities) Gastrointestinal (Abdomen): normal bowel sounds, soft, nontender, no hepatosplenomegaly Skin: venous dermatitis of bilateral lower extremities Neurologic: moves all extremities and awake; no focal motor deficits and not confused Psychiatric: A+Ox3, euthymic affect Results & Data Results & Data Vital Signs (Past 12 Hours) Vital Signs Temp Pulse Resp BP Pulse Ox O2 Del Method 01/30/24 12:30 78 13 130/72 100 01/30/24 12:00 80 14 125/79 100 01/30/24 11:41 79 01/30/24 11:12 82 18 99 Room Air 01/30/24 10:54 36.6 C 82 18 120/54 L 99 Room Air Diagnostic Findings XR chest 1V portable CLINICAL HISTORY: weakness COMPARISON STUDY: Chest radiograph January 01, 2024. FINDINGS: Operative findings within the spine are partially imaged. A dual lumen right internal jugular catheter remains in place. There is no pneumothorax. Ca rdiomegaly is again noted. Pulmonary edema persists. Moderate bilateral pleural effusions, left larger than right with associated bibasilar opacities are present. The left pleural effusion has slightly decreased. A round density within the left lower lung persists. IMPRESSION: 1. Cardiomegaly with persistent pulmonary edema and moderate bilateral pleural effusions. 2. Round density within the left lower lung. This remains indeterminate and could represent atelectasis however an underlying lesion cannot be excluded. Continued radiographic follow-up to ensure resolution is recommended. Medications Administered ER Medications Given: None Code Status & VTE Plan Code Status DNR/DNI VTE Prophylaxis Plan VTE Prophylaxis will be ordered: No Reason for no VTE drug order: Contraindicated Reason for no VTE mechanical prophylaxis: Treatment not tolerated PG Care Time/CCT Total # of Minutes Spent Total Time Spent with Patient: Total time spent is greater than 50% in coordination of care (as documented) at patient's floor/unit and/or counseling patient: Coding Level of Care Code 11459 INT INP/OBS CARE 3/75MIN Diagnoses Acute on chronic heart failure with preserved ejection fraction I50.33 Frailty syndrome in geriatric patient R54 ESRD on hemodialysis N18.6; Z99.2 Abnormal chest xray R93.89 Clostridioides difficile carrier Z22.1 Diabetes mellitus type 2 with complications E11.8 GAVE (gastric antral vascular ectasia) K31.819
--- NOTE | 2024-01-30 14:39 | CT Scan Report ---
EXAM: CT Chest With Intravenous Contrast INDICATION: Productive cough. TECHNIQUE: Axial computed tomography images of the chest with intravenous contrast. Sagittal and coronal reformatted images were created and reviewed. This CT exam was performed using one or more of the following dose reduction techniques: automated exposure control, adjustment of the mA and/or kV according to patient size, and/or use of iterative reconstruction technique. CONTRAST: 94 ml of Optiray 320 was administered intravenously. COMPARISON: CT abdomen including the lower chest 07/12/2022 FINDINGS: Limitations: None. Lungs and pleural spaces: Small pleural effusions are present larger than seen previously. No central or proximal pulmonary embolus noted. There is congestive failure. Mass-like opacities noted in the periphery of the left lower lobe measuring 5.5 x 2.7 x 3.3 cm and 5.9 x 2.1 x 5.0 cm. There is mild localized pleural thickening right mid hemithorax subjacent to the sixth and seventh ribs measuring 1.4 x 0.7 x 0.7 cm. No pneumothorax. Heart: Cardiomegaly. There is dense aortic and mitral calcification. Dense coronary calcification present. No significant pericardial effusion. Mediastinum: Small hiatal hernia noted. Thyroid: No abnormality noted. Bones/joints: Changes in the spine and shoulders. Partially imaged thoracolumbar posterior fusion hardware intact and well-seated. No acute osseous abnormality noted. Soft tissues: No significant abnormality noted. Vasculature: No abnormality noted. No thoracic aortic aneurysm. Lymph nodes: No enlarged lymph nodes. Kidneys and ureters: There is an approximate 2 mm stone in the upper right kidney. Tubes, lines and devices: Right internal jugular catheter terminates in the distal SVC. IMPRESSION: 1. CHF. 2. Mass-like opacities in the periphery of the left lower lobe may reflect areas of dense collapse. Neoplasm not completely excluded. Recommend short-term follow-up. 3. There is an approximate 2 mm stone in the upper right kidney. ACT 112: Negative or not required by law. Electronically signed by Anca Marc 01-30-2024 2:38 PM
[2024-01-30] MEDS: IRON SUCROSE 100 MG in SYRINGE 0 ML IV ONE (16:10)
--- NOTE | 2024-01-30 16:51 | Electrocardiogram Report ---
Test Reason : Blood Pressure : */* mmHG Vent. Rate : 83 BPM Atrial Rate : 83 BPM P-R Int : 256 ms QRS Dur : 134 ms QT Int : 420 ms P-R-T Axes : 47 -27 0 degrees QTcB Int : 493 ms Sinus rhythm with 1st degree A-V block Right bundle branch block Abnormal ECG Confirmed by Ronald Moura ([id number]) on 01/30/2024 4:51:27 PM Referred By: Confirmed By: Ronald Moura
[2024-01-30] MEDS: SEVELAMER CARBONATE 800 MG TAB PO SCH (17:17)
[2024-01-30] MEDS: CALCIUM ACETATE 667 MG CAP/TAB PO SCH (17:17)
[2024-01-30] MEDS: FUROSEMIDE 80 MG TAB PO SCH (17:18)
--- NOTE | 2024-01-30 17:49 | Nephrology Consultation ---
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 Outpatient HD: [facility] TTS, 3hr, 3K 2.5Ca F-180NR, EDW 60.5 kg. Heparin free HD. Sully presented with evidence of volume overload. She struggles with aggressive UF with HD. I discussed the plan of care with Dr. Stephens. Emergent dialysis was coordinated. TDC functioning well. Maintain 1.2 L daily fluid restriction. Sevelamer QAC. Medications are appropriately dosed for IHD. Next HD planned for Sunday or Sunday. (2) Anemia: Maintained on Micera as outpatient. Tsat below goal earlier this month at dialysis. Hgb stable. Venofer provided with HD today. (3) GAVE (gastric antral vascular ectasia): RN reported melena this AM. Sully states that her stool has not changed but remains loose (~2 x per day). She is not maintained on anticoagulation. (4) Atrial fibrillation, permanent: (5) Aortic stenosis: (6) Frailty syndrome in geriatric patient: Multiple recent hospitalizations. Complex medical history. Concerning progressive frailty. Goals of care discussions are ongoing. History of Present Illness Reason for Consultation: ESRD on dialysis Requesting Physician: Davian Stephens MD Attending Physician: Davian Stephens MD History of Present Illness Sully Ray is an 83 year-old female with ESKD attributed to to CRS. She has been on HD since 08/23 and currently dialyzes TTS at [facility] under the care of Dr. Will (3hr, 180 optiflux, Qb 400/Qd 800, 3K 2.5Ca, EDW 60.5 kg). Sully dialyzes via a [facility] TDC. She completed treatment yesterday with net UF 2 L (pre tx 62.5 kg and post 60.5 kg). Medical history is significant for severe , mitral stenosis, R heart failure, permanent atrial fibrillation (not on anticoagulation due to GI bleeds), GAVE w/ recurrent UGI bleed requiring frequent blood transfusion, CVA, AODM, hypothyroidism. Sully presented to the ER today with progressive weakness and inability to walk. Sully has had multiple recent hospitalizations and progressive frailty + debility. She has known sacral breakdown. She lives at home with assistance from home health services and her daughter. She acknowledges progressive weakness and frailty but has been determined to maintain her independence and continue to live at home with her cat. She often makes comments about stopping treatments but states that she is resolved to continue so she can spend time with her cat and with her family. She states "I don't know what they would do without me." She has remained adamant that she would not consider SNF placement. Sully had evidence of hypervolemia on admission and emergent HD was coordinated from the ER. I discussed the plan of care with Dr. Stephens and the patient was seen and evaluated during hemodialysis. Allergies Allergy/AdvReac Type Severity Reaction Status Date / Time sulfamethoxazole AdvReac Unknown REMOTE Verified 12/20/23 08:19 [From Bactrim] HX/PT NOT SURE REACTION trimethoprim [From Bactrim] AdvReac Unknown REMOTE Verified 12/20/23 08:19 HX/PT NOT SURE REACTION Home Medications Medication Instructions Recorded Confirmed Type cholecalciferol (vitamin D3) 25 2,000 unit PO QAM 05/29/18 01/30/24 History mcg (1,000 unit) capsule (Vitamin D3) cyanocobalamin (vitamin B-12) 1,000 mcg PO QAM 11/12/20 01/30/24 History 1,000 mcg tablet (Vitamin B-12) diaper,brief,adult,disposable #150 ea 12/07/21 01/30/24 Rx (Fitted Briefs X-Large) estradiol 0.01% (0.1 mg/gram) 1 applic vaginal 3XWK PRN ONLY 05/30/22 01/30/24 History vaginal cream WHEN BURNING triamcinolone acetonide 0.5 % 1 applic topical BID PRN skin 07/03/23 01/30/24 Rx topical cream irritation #60 grams calcium 600 mg (as 1 tab PO DAILY 07/23/23 01/30/24 History carbonate)-vitamin D3 10 mcg (400 unit) tablet (Calcium 600 + D(3)) omega-3 fatty acids 1,000 mg 1,000 mg PO DAILY 07/23/23 01/30/24 History capsule fluticasone propionate 50 1 spray intranasal DAILY #16 grams 08/16/23 01/30/24 Rx mcg/actuation nasal spray,suspension (Flonase Allergy Relief) dimethicone 1.3 % topical cream 1 applic topical DAILY PRN skin 08/25/23 01/30/24 History (Cavilon Durable Barrier) irritation tramadol 50 mg tablet 50 mg PO BID PRN Pain #60 tabs 10/29/23 01/30/24 Rx xwanirdgphoc-hglcsppi-iimzfko-folic 1 tab PO DAILY 10/30/23 01/30/24 History acid 400 mcg-vit K1 20 mcg tablet sertraline 50 mg tablet 50 mg PO DAILY #30 tabs 11/12/23 01/30/24 Rx levothyroxine 150 mcg tablet 150 mcg PO QAM 11/27/23 01/30/24 History sevelamer carbonate 800 mg tablet 800 mg PO TIDWMEAL 11/27/23 01/30/24 History psyllium husk 3.4 gram/5.4 gram 1 tbsp PO DAILY #660 grams 12/05/23 01/30/24 Rx oral powder (Metamucil) loperamide 2 mg capsule 2 mg PO Q6H PRN Diarrhea #0 caps 01/02/24 01/30/24 Rx methocarbamol 500 mg tablet 500 mg PO TID PRN muscle spasm #90 01/25/24 01/30/24 Rx tabs ropinirole 0.5 mg tablet 0.5 mg PO UD #90 tabs 01/25/24 01/30/24 Rx clopidogrel 75 mg tablet (Plavix) 75 mg PO DAILY #90 tabs 01/29/24 01/30/24 Rx atorvastatin 40 mg tablet 0 mg PO DAILY 01/30/24 01/30/24 History bethanechol chloride 50 mg tablet 0 mg PO BID 01/30/24 01/30/24 History famotidine 40 mg tablet 0 mg PO BID 01/30/24 01/30/24 History furosemide 80 mg tablet 0 mg PO BID 01/30/24 01/30/24 History nystatin 100,000 unit/gram topical 1 applic topical BID PRN 01/30/24 01/30/24 Rx powder IRRITATION #60 grams pantoprazole 40 mg tablet,delayed 0 mg PO BID 01/30/24 01/30/24 History release vancomycin 125 mg capsule 125 mg PO UD 01/30/24 01/30/24 History Patient History Medical History (Updated 01/30/24 @ 14:20 by Davian Stephens MD) DVT prophylaxis Generalized weakness Sepsis Pleural effusion, bilateral Pericardial effusion Non-ST elevation PR (NSTEMI) Pancytopenia Hemorrhoids ESRD on hemodialysis tuesdays, , and saturdays currently History of GI bleed hx 08/2021, given transfusion-per medical record REASON FOR UPCOMING PROCEDURE Hx of atrial fibrillation, no current medication per medical report History of renal dialysis , AND SAT ([facility]ACROSS FROM [facility]) ACCESS SITE RIGHT SIDE OF CHEST/ ? DETAILS Resistant hypertension Diabetes mellitus, type 2 Hearing deficit no hearing aids Urinary urgency Secondary hyperparathyroidism of renal origin First degree AV block Hypertension Hypothyroidism Surgical History History of esophagogastroduodenoscopy (EGD) multiple---last 08/01/2022 @ [facility] 04/06/22 [address] [facility] with [address] Mich Pacheco- EGD- Gastric antral vascular ectasia with bleeding, treated with argon plasma coagulation (APC); Few angioectasias in the duodenum, treated with APC S/P pericardiocentesis 08/2021, [facility], w/dr moura Hx of cardiac catheterization 08/2021, [facility] w/Dr. Moura for increased cardiac pressures; no stents History of tooth extraction History of colonoscopy H/O varicose vein ligation S/P trigger finger release S/P knee replacement RT/LEFT History of bladder suspension procedure X 2 S/P carpal tunnel release RT/LEFT History of back surgery (04/2010) X 2 S/P hysterectomy [place] Family History Father Alcohol abuse Heart disease Myocardial infarction Hypertension Sister Pancreatic cancer Diabetes Breast cancer Brother Diabetes Alcohol abuse Stroke Other Cancer No family history of adverse response to anesthesia Denies family history of Ovarian cancer Prostate cancer Colorectal cancer Social History Smoking Status: Never smoker Second Hand Exposure: No; Do You Dip or Chew Tobacco: No; Hx Alcohol Use: No Hx Substance Use: No Preferred Language: Burkinan Communication Ability: Effective Visual Impairment: No Limitations Hearing Ability: Normal Sql Data Architect Required: No Beliefs That Will Affect Care: Jew Jew Beliefs: Yazidism marital status: Single Current Living Situation: Alone Current Living Situation Comment: 1 story home with ramp to enter home current occupational status: retired How many Children do You have: 2 Feels Safe at Home: Yes Childhood Exposure to Second-Hand Smoke: No Diet: regular Diet Comment: regular caffeine: Yes (Coffee x 2 cups per day.) during the past year weight has: remained stable Dental Care, Regularly: No Physical Activity Frequency: Does not Exercise Seatbelt Use: always Sunscreen Use: Yes Assistive Devices: Denture - Upper, Denture - Lower, Walker and Wheelchair Review of Systems Review of Systems: All systems reviewed & are unremarkable except as noted in HPI & below Constitutional: + weakness Physical Exam Constitutional: + thin and + frail appearing Eyes: + anicteric sclerae ENMT: external ear and nose normal, oropharynx normal Neck: normal visual inspection and trachea midline Respiratory: no respiratory distress Auscultation: lungs clear to auscultation bilaterally Cardiovascular: Rate/Rhythm: regular rate and regular rhythm Heart Sounds: normal S1 and normal S2 Extremities: no edema Musculoskeletal: Extremities: no cyanosis and no clubbing Skin: no jaundice Neurologic: Motor/Sensory: no tremor and no asterixis Psychiatric: Orientation: alert and oriented x 3 Results & Data Vital Signs (Past 12 Hours) Vital Signs Temp Pulse Pulse Pulse Resp BP BP 01/30/24 17:29 01/30/24 17:27 36.4 C L 86 16 150/71 H 01/30/24 17:17 36.6 C 79 144/65 H 01/30/24 17:00 81 141/65 H 01/30/24 16:30 80 150/69 H 01/30/24 16:00 77 110/56 L 01/30/24 15:30 80 132/66 01/30/24 15:00 82 149/70 H 01/30/24 14:30 81 121/65 01/30/24 14:15 36.5 C 79 116/58 L 01/30/24 14:07 36.5 C 01/30/24 14:00 83 15 130/72 01/30/24 13:30 83 15 130/72 01/30/24 12:30 78 13 130/72 01/30/24 12:00 80 14 125/79 01/30/24 11:41 79 01/30/24 11:12 82 18 01/30/24 10:54 36.6 C 82 18 120/54 L Pulse Ox O2 Del Method 01/30/24 17:29 Room Air 01/30/24 17:27 98 Room Air 01/30/24 17:17 01/30/24 17:00 01/30/24 16:30 01/30/24 16:00 01/30/24 15:30 01/30/24 15:00 01/30/24 14:30 01/30/24 14:15 01/30/24 14:07 01/30/24 14:00 100 Room Air 01/30/24 13:30 01/30/24 12:30 100 01/30/24 12:00 100 01/30/24 11:41 01/30/24 11:12 99 Room Air 01/30/24 10:54 99 Room Air Laboratory Results Laboratory Results - last 24 hr 01/30/24 01/30/24 01/30/24 11:12 11:24 11:25 WBC 7.55 RBC 3.11 L Hgb 9.1 L Hct 29.1 L MCV 93.6 MCH 29.3 MCHC 31.3 L RDW Std Deviation 68.5 H RDW Coeff of Irasema 20.3 H Plt Count 206 MPV 11.2 Immature Gran % (Auto) 0.4 Neut % (Auto) 84.1 Lymph % (Auto) 5.6 [place] % (Auto) 9.0 Eos % (Auto) 0.4 Baso % (Auto) 0.5 Neut # (Auto) 6.35 Lymph # (Auto) 0.42 L [place] # (Auto) 0.68 H Eos # (Auto) 0.03 Baso # (Auto) 0.04 Immature Gran # (Auto) 0.03 Polychromasia 1+ Anisocytosis Present Tear Drop Cells 1+ Ovalocytes 2+ Sodium 139 Potassium 3.8 Chloride 99 Carbon Dioxide 31 Anion Gap 9 BUN 34 H Creatinine 3.02 H Est Cr Clr Drug Dosing 10.5 eGFR 14.66 BUN/Creatinine Ratio 11.3 Glucose 180 H POC Glucose Lactate 1.6 Calcium 7.9 L Total Bilirubin 0.5 AST 26 ALT 15 Alkaline Phosphatase 354 H Troponin I High Sens 84.7 H* B-Natriuretic Peptide 1189 H Total Protein 5.9 L Albumin 3.0 L Globulin 2.9 Albumin/Globulin Ratio 1.0 Procalcitonin 1.01 H TSH 3.442 Adenovirus (PCR) Not Detected B. pertussis DNA (PCR) Not Detected B.parapertussis DNA PCR Not Detected C. pneumoniae DNA (PCR) Not Detected Coronavirus OC43 (PCR) Not Detected Coronavirus HKU1 (PCR) Not Detected Coronavirus 229E (PCR) Not Detected SARS-CoV-2 (PCR) Not Detected Coronavirus NL63 (PCR) Not Detected Human Metapneumovir PCR Not Detected Influenza Type A (PCR) Not Detected Influenza Type B (PCR) Not Detected M. pneumoniae (PCR) Not Detected Parainfluenza 1 (PCR) Not Detected Parainfluenza 2 (PCR) Not Detected Parainfluenza 3 (PCR) Not Detected Parainfluenza 4 (PCR) Not Detected RSV (PCR) Not Detected Entero/Rhino (PCR) Not Detected 01/30/24 17:17 WBC RBC Hgb Hct MCV MCH MCHC RDW Std Deviation RDW Coeff of Irasema Plt Count MPV Immature Gran % (Auto) Neut % (Auto) Lymph % (Auto) [place] % (Auto) Eos % (Auto) Baso % (Auto) Neut # (Auto) Lymph # (Auto) [place] # (Auto) Eos # (Auto) Baso # (Auto) Immature Gran # (Auto) Polychromasia Anisocytosis Tear Drop Cells Ovalocytes Sodium Potassium Chloride Carbon Dioxide Anion Gap BUN Creatinine Est Cr Clr Drug Dosing eGFR BUN/Creatinine Ratio Glucose POC Glucose 125 H Lactate Calcium Total Bilirubin AST ALT Alkaline Phosphatase Troponin I High Sens B-Natriuretic Peptide Total Protein Albumin Globulin Albumin/Globulin Ratio Procalcitonin TSH Adenovirus (PCR) B. pertussis DNA (PCR) B.parapertussis DNA PCR C. pneumoniae DNA (PCR) Coronavirus OC43 (PCR) Coronavirus HKU1 (PCR) Coronavirus 229E (PCR) SARS-CoV-2 (PCR) Coronavirus NL63 (PCR) Human Metapneumovir PCR Influenza Type A (PCR) Influenza Type B (PCR) M. pneumoniae (PCR) Parainfluenza 1 (PCR) Parainfluenza 2 (PCR) Parainfluenza 3 (PCR) Parainfluenza 4 (PCR) RSV (PCR) Entero/Rhino (PCR) Diagnostic Findings CT Chest With Intravenous Contrast COMPARISON: CT abdomen including the lower chest 07/12/2022 FINDINGS: Limitations: None. Lungs and pleural spaces: Small pleural effusions are present larger than seen previously. No central or proximal pulmonary embolus noted. There is congestive failure. Mass-like opacities noted in the periphery of the left lower lobe measuring 5.5 x 2.7 x 3.3 cm and 5.9 x 2.1 x 5.0 cm. There is mild localized pleural thickening right mid hemithorax subjacent to the sixth and seventh ribs measuring 1.4 x 0.7 x 0.7 cm. No pneumothorax. Heart: Cardiomegaly. There is dense aortic and mitral calcification. Dense coronary calcification present. No significant pericardial effusion. Mediastinum: Small hiatal hernia noted. Thyroid: No abnormality noted. Bones/joints: Changes in the spine and shoulders. Partially imaged thoracolumbar posterior fusion hardware intact and well-seated. No acute osseous abnormality noted. Soft tissues: No significant abnormality noted. Vasculature: No abnormality noted. No thoracic aortic aneurysm. Lymph nodes: No enlarged lymph nodes. Kidneys and ureters: There is an approximate 2 mm stone in the upper right kidney. Tubes, lines and devices: Right internal jugular catheter terminates in the distal SVC. IMPRESSION: 1. CHF. 2. Mass-like opacities in the periphery of the left lower lobe may reflect areas of dense collapse. Neoplasm not completely excluded. Recommend short-term follow-up. 3. There is an approximate 2 mm stone in the upper right kidney. PG Care Time/CCT Total # of Minutes Spent Total Time Spent with Patient: Total time spent is greater than 50% in coordination of care (as documented) at patient's floor/unit and/or counseling patient: Coding Level of Care Code 36206 IN/OBS CONSULT LVL 4,60M Diagnoses ESRD on hemodialysis N18.6; Z99.2 Anemia due to chronic kidney disease, on chronic dialysis N18.6; D63.1; Z99.2 Anemia type: due to chronic kidney disease Chronic kidney disease stage: on chronic dialysis GAVE (gastric antral vascular ectasia) K31.819 Atrial fibrillation, permanent I48.21 Aortic valve stenosis, etiology of cardiac valve disease unspecified I35.0 Cardiac valve disease etiology: etiology unspecified Frailty syndrome in geriatric patient R54 (2) Anemia Anemia type: due to chronic kidney disease Chronic kidney disease stage: on chronic dialysis Qualified Code(s): N18.6 - End stage renal disease; D63.1 - Anemia in chronic kidney disease; Z99.2 - Dependence on renal dialysis (5) Aortic stenosis Cardiac valve disease etiology: etiology unspecified Qualified Code(s): I35.0 - Nonrheumatic aortic (valve) stenosis
--- NOTE | 2024-01-30 18:12 | Cardiology Consultation ---
Date of Consultation January 30, 2024 Assessment & Plan (1) (HFpEF) heart failure with preserved ejection fraction: (2) CAD (coronary artery disease): (3) Valvular heart disease: (4) 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: Plan 1. Acute decompensated heart failure with preserved ejection fraction: She generally has poor filling of a relatively small left ventricular cavity. She does appear to have an element of volume overload. Volume is currently controll ed entirely by dialysis. She underwent another dialysis session today. 2. Valvular heart disease: She appears to have severe aortic stenosis. Review of her last echocardiogram also reveals severe mitral stenosis. This places her in a difficult position. In addition to questionable benefit of replacing 1 valve versus 2, she is very debilitated, frail and deconditioned. I certainly do not think there is any urgent need for an evaluation for TAVR. In fact, she is not certain she would even want the procedure if indicated. Again, the benefit to a TAVR seems significantly attenuated in the setting of severe mitral stenosis as well. 3. Coronary disease: Nonobstructive coronary disease when evaluated quite remotely. This very likely she has had some progression of coronary disease but has preserved LV systolic function and no symptoms of angina or coronary insufficiency. 4. First-degree AV block: In addition to right bundle branch block. No evidence of higher degree AV block or symptoms consistent with higher degree AV block. I do not think there is any urgent need to discuss valve replacement. It is unclear if she derives any significant benefit from a valve replacement given her comorbidities and severe mitral stenosis. Unclear if she would even want the procedure done at this point. I decision can certainly be deferred to the outpatient setting if her overall functional status improves History of Present Illness Reason for Consultation: Aortic stenosis Requesting Physician: Kat Attending Physician: Davian Stephens MD History of Present Illness Mrs. Faria is an 83 year old female with a history of Hypertension, Hypercholesterolemia, Abnormal EKG (RBBB), Chronic Diastolic CHF, severe Aortic Stenosis, Moderate Mitral Stenosis, ESRD on HD, Secondary Hyperparathyroidism, Anemia, Type 2 Diabetes Mellitus, Pulmonary Hypertension, and Nonobstructive CAD (50% RCA, July 2008) who presents today for Cardiologic Follow-up Visit after demonstrating Mobitz Type I 2nd Degree AV Block. Typically followed by Dr. Agudelo and Humberto Centeno. She is currently hospitalized due to lower extremity weakness, edema and erythema. She suffered a series of hospitalizations recently. These have involved cerebellar infarct and pneumonia. She was recently discharged from rehab after a hospitalization. She states that today she had been struggling with mobility due to a heaviness in her legs. She underwent her usual dialysis yesterday. She is generally taken in a van and uses a wheelchair. Yesterday evening she began to have some difficulty getting around and noticed that her legs were swollen. She does report a chronic dyspnea. When she is active she is "huffing and puffing". She denies any exertional chest pain. She has not had dizziness or lightheadedness. No syncope. She did not endorse symptoms of orthopnea. No recent fevers or chills. She continues to have a cough productive of some discolored sputum. No recent palpitations. Allergies Allergy/AdvReac Type Severity Reaction Status Date / Time sulfamethoxazole AdvReac Unknown REMOTE Verified 12/20/23 08:19 [From Bactrim] HX/PT NOT SURE REACTION trimethoprim [From Bactrim] AdvReac Unknown REMOTE Verified 12/20/23 08:19 HX/PT NOT SURE REACTION Home Medications Medication Instructions Recorded Confirmed Type cholecalciferol (vitamin D3) 25 2,000 unit PO QAM 05/29/18 01/30/24 History mcg (1,000 unit) capsule (Vitamin D3) cyanocobalamin (vitamin B-12) 1,000 mcg PO QAM 11/12/20 01/30/24 History 1,000 mcg tablet (Vitamin B-12) diaper,brief,adult,disposable #150 ea 12/07/21 01/30/24 Rx (Fitted Briefs X-Large) estradiol 0.01% (0.1 mg/gram) 1 applic vaginal 3XWK PRN ONLY 05/30/22 01/30/24 History vaginal cream WHEN BURNING triamcinolone acetonide 0.5 % 1 applic topical BID PRN skin 07/03/23 01/30/24 Rx topical cream irritation #60 grams calcium 600 mg (as 1 tab PO DAILY 07/23/23 01/30/24 History carbonate)-vitamin D3 10 mcg (400 unit) tablet (Calcium 600 + D(3)) omega-3 fatty acids 1,000 mg 1,000 mg PO DAILY 07/23/23 01/30/24 History capsule fluticasone propionate 50 1 spray intranasal DAILY #16 grams 08/16/23 01/30/24 Rx mcg/actuation nasal spray,suspension (Flonase Allergy Relief) dimethicone 1.3 % topical cream 1 applic topical DAILY PRN skin 08/25/23 01/30/24 History (Cavilon Durable Barrier) irritation tramadol 50 mg tablet 50 mg PO BID PRN Pain #60 tabs 10/29/23 01/30/24 Rx vgccvdrwoejs-mpuvfoex-ecacbor-folic 1 tab PO DAILY 10/30/23 01/30/24 History acid 400 mcg-vit K1 20 mcg tablet sertraline 50 mg tablet 50 mg PO DAILY #30 tabs 11/12/23 01/30/24 Rx levothyroxine 150 mcg tablet 150 mcg PO QAM 11/27/23 01/30/24 History sevelamer carbonate 800 mg tablet 800 mg PO TIDWMEAL 11/27/23 01/30/24 History psyllium husk 3.4 gram/5.4 gram 1 tbsp PO DAILY #660 grams 12/05/23 01/30/24 Rx oral powder (Metamucil) loperamide 2 mg capsule 2 mg PO Q6H PRN Diarrhea #0 caps 01/02/24 01/30/24 Rx methocarbamol 500 mg tablet 500 mg PO TID PRN muscle spasm #90 01/25/24 01/30/24 Rx tabs ropinirole 0.5 mg tablet 0.5 mg PO UD #90 tabs 01/25/24 01/30/24 Rx clopidogrel 75 mg tablet (Plavix) 75 mg PO DAILY #90 tabs 01/29/24 01/30/24 Rx atorvastatin 40 mg tablet 0 mg PO DAILY 01/30/24 01/30/24 History bethanechol chloride 50 mg tablet 0 mg PO BID 01/30/24 01/30/24 History famotidine 40 mg tablet 0 mg PO BID 01/30/24 01/30/24 History furosemide 80 mg tablet 0 mg PO BID 01/30/24 01/30/24 History nystatin 100,000 unit/gram topical 1 applic topical BID PRN 01/30/24 01/30/24 Rx powder IRRITATION #60 grams pantoprazole 40 mg tablet,delayed 0 mg PO BID 01/30/24 01/30/24 History release vancomycin 125 mg capsule 125 mg PO UD 01/30/24 01/30/24 History Patient History Medical History (Updated 01/30/24 @ 18:06 by Ronald Moura MD) DVT prophylaxis Generalized weakness Sepsis Pleural effusion, bilateral Pericardial effusion Non-ST elevation IL (NSTEMI) Pancytopenia Hemorrhoids ESRD on hemodialysis tuesdays, , and saturdays currently History of GI bleed hx 08/2021, given transfusion-per medical record REASON FOR UPCOMING PROCEDURE Hx of atrial fibrillation, no current medication per medical report History of renal dialysis , AND SAT ([facility]CROSS FROM [facility]) ACCESS SITE RIGHT SIDE OF CHEST/ ? DETAILS Resistant hypertension Diabetes mellitus, type 2 Hearing deficit no hearing aids Urinary urgency Secondary hyperparathyroidism of renal origin First degree AV block Hypertension Hypothyroidism Surgical History History of esophagogastroduodenoscopy (EGD) multiple---last 08/01/2022 @ [facility] 04/06/22 at [facility] with Dr. Mich Pacheco- EGD- Gastric antral vascular ectasia with bleeding, treated with argon plasma coagulation (APC); Few angioectasias in the duodenum, treated with APC S/P pericardiocentesis 08/2021, [facility], w/dr moura Hx of cardiac catheterization 08/2021, [facility] w/Dr. Moura for increased cardiac pressures; no stents History of tooth extraction History of colonoscopy H/O varicose vein ligation S/P trigger finger release S/P knee replacement RT/LEFT History of bladder suspension procedure X 2 S/P carpal tunnel release RT/LEFT History of back surgery (04/2010) X 2 S/P hysterectomy [place] Family History Father Alcohol abuse Heart disease Myocardial infarction Hypertension Sister Pancreatic cancer Diabetes Breast cancer Brother Diabetes Alcohol abuse Stroke Other Cancer No family history of adverse response to anesthesia Denies family history of Ovarian cancer Prostate cancer Colorectal cancer Social History Smoking Status: Never smoker Second Hand Exposure: No; Do You Dip or Chew Tobacco: No; Hx Alcohol Use: No Hx Substance Use: No Preferred Language: Jamaican Communication Ability: Effective Visual Impairment: No Limitations Hearing Ability: Normal Social Sciences Chair Required: No Beliefs That Will Affect Care: Caodaism Caodaism Beliefs: Esther marital status: Single Current Living Situation: Alone Current Living Situation Comment: 1 story home with ramp to enter home current occupational status: retired How many Children do You have: 2 Feels Safe at Home: Yes Childhood Exposure to Second-Hand Smoke: No Diet: regular Diet Comment: regular caffeine: Yes (Coffee x 2 cups per day.) during the past year weight has: remained stable Dental Care, Regularly: No Physical Activity Frequency: Does not Exercise Seatbelt Use: always Sunscreen Use: Yes Assistive Devices: Denture - Upper, Denture - Lower, Walker and Wheelchair Review of Systems Review of Systems: Per HPI. Physical Exam Physical Exam: She is alert and oriented x3. Mood affect appear normal. She answered all questions appropriately. HEENT: Sclerae are anicteric. Pupils are equal and reactive to light and accommodation. Extraocular movements were intact. Basal cell carcinoma on the left cheek Neuro: Cranial nerves intact Chest: Dialysis catheter in the right upper chest. Lungs: Lungs are clear to auscultation bilaterally. There are no rales wheezes or rhonchi. She has normal respiratory effort without use of accessory muscles. There is normal pulmonary excursion. Cardiac: The rhythm was regular. S1 and S2 were normal. High-pitched crescendo systolic murmur. The PMI was not markedly displaced on palpation. Abdomen: The abdomen was soft and nontender. Extremities: Patient has bilateral radial pulses that are equal in intensity. There is no evidence cyanosis or clubbing. Edematous and erythematous lower extremities. Skin: Erythematous lower extremities Results & Data Vital Signs (Past 12 Hours) Vital Signs Temp Pulse Pulse Pulse Resp BP BP 01/30/24 17:29 01/30/24 17:27 36.4 C L 86 16 150/71 H 01/30/24 17:17 36.6 C 79 144/65 H 01/30/24 17:00 81 141/65 H 01/30/24 16:30 80 150/69 H 01/30/24 16:00 77 110/56 L 01/30/24 15:30 80 132/66 01/30/24 15:00 82 149/70 H 01/30/24 14:30 81 121/65 01/30/24 14:15 36.5 C 79 116/58 L 01/30/24 14:07 36.5 C 01/30/24 14:00 83 15 130/72 01/30/24 13:30 83 15 130/72 01/30/24 12:30 78 13 130/72 01/30/24 12:00 80 14 125/79 01/30/24 11:41 79 01/30/24 11:12 82 18 01/30/24 10:54 36.6 C 82 18 120/54 L Pulse Ox O2 Del Method 01/30/24 17:29 Room Air 01/30/24 17:27 98 Room Air 01/30/24 17:17 01/30/24 17:00 01/30/24 16:30 01/30/24 16:00 01/30/24 15:30 01/30/24 15:00 01/30/24 14:30 01/30/24 14:15 01/30/24 14:07 01/30/24 14:00 100 Room Air 01/30/24 13:30 01/30/24 12:30 100 01/30/24 12:00 100 01/30/24 11:41 01/30/24 11:12 99 Room Air 01/30/24 10:54 99 Room Air Laboratory Results Abnormal Lab Results 01/30/24 01/30/24 01/30/24 11:12 11:24 11:25 WBC 7.55 RBC 3.11 L Hgb 9.1 L Hct 29.1 L MCV 93.6 MCH 29.3 MCHC 31.3 L RDW Std Deviation 68.5 H RDW Coeff of Irasema 20.3 H Plt Count 206 MPV 11.2 Immature Gran % (Auto) 0.4 Neut % (Auto) 84.1 Lymph % (Auto) 5.6 [place] % (Auto) 9.0 Eos % (Auto) 0.4 Baso % (Auto) 0.5 Neut # (Auto) 6.35 Lymph # (Auto) 0.42 L [place] # (Auto) 0.68 H Eos # (Auto) 0.03 Baso # (Auto) 0.04 Immature Gran # (Auto) 0.03 Polychromasia 1+ Anisocytosis Present Tear Drop Cells 1+ Ovalocytes 2+ Sodium 139 Potassium 3.8 Chloride 99 Carbon Dioxide 31 Anion Gap 9 BUN 34 H Creatinine 3.02 H Est Cr Clr Drug Dosing 10.5 eGFR 14.66 BUN/Creatinine Ratio 11.3 Glucose 180 H POC Glucose Lactate 1.6 Calcium 7.9 L Total Bilirubin 0.5 AST 26 ALT 15 Alkaline Phosphatase 354 H Troponin I High Sens 84.7 H* B-Natriuretic Peptide 1189 H Total Protein 5.9 L Albumin 3.0 L Globulin 2.9 Albumin/Globulin Ratio 1.0 Procalcitonin 1.01 H TSH 3.442 Adenovirus (PCR) Not Detected B. pertussis DNA (PCR) Not Detected B.parapertussis DNA PCR Not Detected C. pneumoniae DNA (PCR) Not Detected Coronavirus OC43 (PCR) Not Detected Coronavirus HKU1 (PCR) Not Detected Coronavirus 229E (PCR) Not Detected SARS-CoV-2 (PCR) Not Detected Coronavirus NL63 (PCR) Not Detected Human Metapneumovir PCR Not Detected Influenza Type A (PCR) Not Detected Influenza Type B (PCR) Not Detected M. pneumoniae (PCR) Not Detected Parainfluenza 1 (PCR) Not Detected Parainfluenza 2 (PCR) Not Detected Parainfluenza 3 (PCR) Not Detected Parainfluenza 4 (PCR) Not Detected RSV (PCR) Not Detected Entero/Rhino (PCR) Not Detected 01/30/24 17:17 WBC RBC Hgb Hct MCV MCH MCHC RDW Std Deviation RDW Coeff of Irasema Plt Count MPV Immature Gran % (Auto) Neut % (Auto) Lymph % (Auto) [place] % (Auto) Eos % (Auto) Baso % (Auto) Neut # (Auto) Lymph # (Auto) Ramsey # (Auto) Eos # (Auto) Baso # (Auto) Immature Gran # (Auto) Polychromasia Anisocytosis Tear Drop Cells Ovalocytes Sodium Potassium Chloride Carbon Dioxide Anion Gap BUN Creatinine Est Cr Clr Drug Dosing eGFR BUN/Creatinine Ratio Glucose POC Glucose 125 H Lactate Calcium Total Bilirubin AST ALT Alkaline Phosphatase Troponin I High Sens B-Natriuretic Peptide Total Protein Albumin Globulin Albumin/Globulin Ratio Procalcitonin TSH Adenovirus (PCR) B. pertussis DNA (PCR) B.parapertussis DNA PCR C. pneumoniae DNA (PCR) Coronavirus OC43 (PCR) Coronavirus HKU1 (PCR) Coronavirus 229E (PCR) SARS-CoV-2 (PCR) Coronavirus NL63 (PCR) Human Metapneumovir PCR Influenza Type A (PCR) Influenza Type B (PCR) M. pneumoniae (PCR) Parainfluenza 1 (PCR) Parainfluenza 2 (PCR) Parainfluenza 3 (PCR) Parainfluenza 4 (PCR) RSV (PCR) Entero/Rhino (PCR) Diagnostic Findings Echocardiogram 12/01/2023: Normal LV systolic function with hyperdynamic ejection fraction of 70%. Moderate LVH. Stage II diastolic dysfunction. Severe left atrial dilation. Severe valvular aortic stenosis. Severe mitral annular calcification, mitral stenosis and moderate mitral regurgitation. Chest x-ray the time admission revealed pulmonary vascular congestion, bilateral pleural effusions and atelectasis Chest CT demonstrated congestive heart failure and lesions concerning for lung collapse versus neoplasm. ECG Additional Comments: EKG demonstrated normal sinus rhythm with first-degree AV block and right bundle branch block. PG Care Time/CCT Total # of Minutes Spent Total Time Spent with Patient: Total time spent is greater than 50% in coordination of care (as documented) at patient's floor/unit and/or counseling patient: Coding Level of Care Code 41406 INT INP/OBS CARE 375MIN Diagnoses (HFpEF) heart failure with preserved ejection fraction I50.30 CAD (coronary artery disease) I25.10 Valvular heart disease I38 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 I44.1
[2024-01-30] MEDS: PANTOprazole 40 MG TAB PO SCH (20:33)
[2024-01-30] MEDS: FAMOTIDINE 40 MG TABLET PO SCH (20:33)
[2024-01-30] MEDS: rOPINIRole HCL 1 MG TABLET PO SCH (20:34)
[2024-01-30] MEDS: BETHANECHOL CHL 25 MG TAB PO SCH (20:34)
[2024-01-30] MEDS: METHOCARBAMOL 500 MG TABLET PO PRN (20:34)
[2024-01-31] MEDS: LEVOTHYROXINE SODIUM 150 MCG TABLET PO SCH (05:52)
[2024-01-31 06:00] LABS: Basophils # (auto) 0.04 K/uL (0.00-0.20); Basophils % (auto) 0.6 %; Eosinophils # (auto) 0.04 K/uL (0.00-0.50); Eosinophils % (auto) 0.6 %; Hematocrit (blood only) 28.9 % (37.0-47.0); Hemoglobin 8.9 g/dl (12.0-16.0); Immature Granulocytes # (auto) 0.04 K/uL (0.01-0.20); Immature Granulocytes % (auto) 0.6 %; Lymphocytes # (auto) 0.35 K/uL (1.20-3.40); Lymphocytes % (auto) 5.2 %; Mean Corpuscular Hemoglobin 28.1 pg (25.0-34.0); Mean Corpuscular Hgb Conc 30.8 g/dL (32.0-36.0); Mean Corpuscular Volume 91.2 fL (80.0-100.0); Monocytes # (auto) 0.52 K/uL (0.11-0.59); Monocytes % (auto) 7.8 %; Neutrophils # (auto) 5.69 K/uL (1.40-6.50); Neutrophils % (auto) 85.2 %; Platelet Count 202 K/uL (130-400); RDW Coefficient of Variation 19.9 % (11.5-14.5); RDW Standard Deviation 65.5 fL (36.4-46.3); Red Blood Count 3.17 M/uL (4.20-5.40); White Blood Count 6.68 K/ul (4.8-10.8)
[2024-01-31 06:15] LABS: BUN Creatinine Ratio 8.7 (10-20); Calcium 7.9 mg/dl (8.6-10.3); Creatinine Clr Calc Pharmacy 13.7 ml/min; Potassium 3.9 mmol/L (3.5-5.1)
[2024-01-31] MEDS: rOPINIRole HCL 0.25 MG TABLET PO SCH (08:29)
[2024-01-31] MEDS: SERTRALINE HCL 50 MG TABLET PO SCH (08:29)
[2024-01-31] MEDS: CALCIUM 600MG + VIT D 400 IU TAB PO SCH (08:29)
[2024-01-31] MEDS: CLOPIDOGREL BISULFATE 75 MG TAB PO SCH (08:29)
[2024-01-31] MEDS: PSYLLIUM or GUAR GUM FIBER 4GM PACKET PO SCH (08:29)
[2024-01-31] MEDS: CEROVITE ADV FORMULA TAB PO SCH (08:29)
[2024-01-31] MEDS: CHOLECALCIFEROL 25 MCG (1000 UNITS) TAB PO SCH (08:29)
[2024-01-31] MEDS: ATORVASTATIN 40 MG TAB PO SCH (08:29)
--- NOTE | 2024-01-31 13:35 | Nephrology Progress Note ---
Date of Service January 31, 2024 Assessment & Plan (1) ESRD on hemodialysis: Plan: ESKD due to CRS (severe ). Outpatient HD: [facility] [place] [facility], 3hr, 3K 2.5Ca F-180NR, EDW 60.5 kg. Heparin free HD. Completed HD yesterday with adequate UF and clearance. She struggles with aggressive UF with HD due to valvular heart disease. Thankfully, volume status is reasonably controlled. No indication for HD today. TDC functioning well. Maintain 1.2 L daily fluid restriction. Sevelamer QAC. Medications are appropriately dosed for IHD. Next HD likely Sunday. (2) Anemia: Plan: Maintained on Micera as outpatient. Tsat below goal earlier this month at dialysis. Hgb stable. Venofer provided with HD yesterday. (3) GAVE (gastric antral vascular ectasia): Plan: RN reported melena this AM. Sully states that her stool has not changed but remains loose (~2 x per day). She is not maintained on anticoagulation. (4) Atrial fibrillation, permanent: (5) Aortic stenosis: (6) Frailty syndrome in geriatric patient: Plan: Multiple recent hospitalizations. Complex medical history. Concerning progressive frailty. Goals of care discussions are ongoing. Admission and Anticipated Discharge Date Admission Date: January 30, 2024 Subjective No acute events overnight. Sully tolerated HD well yesterday. She feels alonzo sonably well overall. No fevers or chills. She is breathing comfortably. Review of Systems Review of Systems: All systems reviewed & are unremarkable except as noted in HPI & below Physical Exam Constitutional: + thin and + frail appearing Eyes: PERRL, conjunctivae normal, anicteric sclerae + anicteric sclerae ENMT: external ear and nose normal, oropharynx normal Neck: normal visual inspection and trachea midline Respiratory: no respiratory distress Auscultation: lungs clear to auscult ation bilaterally Cardiovascular: Rate/Rhythm: regular rate Heart Sounds: normal S1, normal S2 and + murmur Extremities: no edema Musculoskeletal: Extremities: no cyanosis and no clubbing Skin: no jaundice Neurologic: Motor/Sensory: no tremor and no asterixis Psychiatric: Orientation: alert and oriented x 3 Results & Data Vital Signs (Past 12 Hours) Vital Signs Temp Pulse Pulse Resp BP BP Pulse Ox 01/31/24 09:01 88 01/31/24 07:47 36.7 C 83 16 122/60 94 01/31/24 07:30 01/31/24 03:44 36.5 C 79 16 133/71 98 O2 Del Method 01/31/24 09:01 01/31/24 07:47 Room Air 01/31/24 07:30 Room Air 01/31/24 03:44 Room Air Laboratory Results Laboratory Results - last 24 hr 01/30/24 01/30/24 01/30/24 11:12 17:17 18:31 WBC RBC Hgb Hct MCV MCH MCHC RDW Std Deviation RDW Coeff of Irasema Plt Count MPV Immature Gran % (Auto) Neut % (Auto) Lymph % (Auto) [place] % (Auto) Eos % (Auto) Baso % (Auto) Neut # (Auto) Lymph # (Auto) [place] # (Auto) Eos # (Auto) Baso # (Auto) Immature Gran # (Auto) Sodium Potassium Chloride Carbon Dioxide Anion Gap BUN Creatinine Est Cr Clr Drug Dosing eGFR BUN/Creatinine Ratio Glucose POC Glucose 125 H Calcium Procalcitonin 1.01 H Nasal Screen MRSA (PCR) Negative 01/30/24 01/31/24 20:28 05:31 WBC 6.68 RBC 3.17 L Hgb 8.9 L Hct 28.9 L MCV 91.2 MCH 28.1 MCHC 30.8 L RDW Std Deviation 65.5 H RDW Coeff of Irasema 19.9 H Plt Count 202 MPV 11.0 Immature Gran % (Auto) 0.6 Neut % (Auto) 85.2 Lymph % (Auto) 5.2 [place] % (Auto) 7.8 Eos % (Auto) 0.6 Baso % (Auto) 0.6 Neut # (Auto) 5.69 Lymph # (Auto) 0.35 L [place] # (Auto) 0.52 Eos # (Auto) 0.04 Baso # (Auto) 0.04 Immature Gran # (Auto) 0.04 Sodium 137 Potassium 3.9 Chloride 103 Carbon Dioxide 28 Anion Gap 6 BUN 20 Creatinine 2.31 H D Est Cr Clr Drug Dosing 13.7 eGFR 20.21 BUN/Creatinine Ratio 8.7 L Glucose 114 H POC Glucose 195 H Calcium 7.9 L Procalcitonin Nasal Screen MRSA (PCR) PG Care Time/CCT Total # of Minutes Spent Total Time Spent with Patient: Total time spent is greater than 50% in coordination of care (as documented) at patient's floor/unit and/or counseling patient: Coding Level of Care Code 04964 SUB INP/OBS CARE MIN Diagnoses ESRD on hemodialysis N18.6; Z99.2 Anemia due to chronic kidney disease, on chronic dialysis N18.6; D63.1; Z99.2 Anemia type: due to chronic kidney disease Chronic kidney disease stage: on chronic dialysis GAVE (gastric antral vascular ectasia) K31.819 Atrial fibrillation, permanent I48.21 Aortic valve stenosis, etiology of cardiac valve disease unspecified I35.0 Cardiac valve disease etiology: etiology unspecified Frailty syndrome in geriatric patient R54 (2) Anemia Anemia type: due to chronic kidney disease Chronic kidney disease stage: on chronic dialysis Qualified Code(s): N18.6 - End stage renal disease; D63.1 - Anemia in chronic kidney disease; Z99.2 - Dependence on renal dialysis (5) Aortic stenosis Cardiac valve disease etiology: etiology unspecified Qualified Code(s): I35.0 - Nonrheumatic aortic (valve) stenosis
--- NOTE | 2024-01-31 21:58 | Hospitalist Progress Note ---
Date of Service January 31, 2024 Assessment & Plan (1) Acute on chronic heart failure with preserved ejection fraction: Plan: In setting of ESRD with dialysis and valvular heart disease (severe aortic stenosis and moderate mitral regurgitation) Poor TAVR candidate but this does not appear to have been previously discussed with cardiology - will consult Consider midodrine if BP limiting taking off more fluid with dialysis Consult nephrology for dialysis management - improved after disalysis Continue her usual furosemide dosing as she continues to make urine but fluid management is mostly with dialysis underlying mass noted on CXR; also shown on CT scan: may be area of soft tissue collapse. (2) Frailty syndrome in geriatric patient: Plan: PT/OT. Daughter not available on admission for ongoing goals of care discussions. 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 currently no signs of diarrhea and remains off antibiotics (6) Diabetes mellitus type 2 with complications: Plan: HbA1C 5.2 although possibly underestimate given number of blood transfusions, she is not on any medications for this an prior glucose levels have been acceptable therefore no need to start treatment currently (7) GAVE (gastric antral vascular ectasia): Plan: Noted significant history of this with 68 prior blood transfusions since 2019 Continue pantoprazole 40 mg PO BID and famotidine 40mg PO BID Plan VTE Prophyalxis - avoiding chemical prophylaxis due to history of GAVE and needing recurrent blood transfusions Diet - T2DM, heart healthy, low Na Disposition - admit to med/tele Admission and Anticipated Discharge Date Admission Date: January 30, 2024 Subjective Patient reports breathing better. Interested in getting TAVR. Review of Systems Review of Systems: All systems reviewed & are unremarkable except as noted in HPI & below Physical Exam Constitutional: well developed; + not well nourished and no acute distress Respiratory: normal respiratory effort; no respiratory distress Auscultation: lungs clear to auscultation bilaterally; no crackles and no wheezes Cardiovascular: Rate/Rhythm: regular rate and regular rhythm Heart Sounds: + murmur (YAW LUSB and holosystolic at apex 5/6) Extremities: normal capillary refill and + pedal edema (2+ tight bilateral lower extremities) Gastrointestinal (Abdomen): normal bowel sounds, soft, nontender, no hepatosplenomegaly Skin: venous dermatitis of bilateral lower extremities Neurologic: moves all extremities and awake; no focal motor deficits and not confused Psychiatric: A+Ox3, euthymic affect Results & Data Results & Data Vital Signs (Past 12 Hours) Vital Signs Temp Pulse Pulse Resp BP BP Pulse Ox 01/31/24 19:38 37.2 C 94 H 18 112/64 96 01/31/24 17:48 93 H 01/31/24 15:00 36.5 C 99 H 16 117/67 93 01/31/24 14:00 37.0 C 88 16 116/66 94 O2 Del Method 01/31/24 19:38 Room Air 01/31/24 17:48 01/31/24 15:00 Room Air 01/31/24 14:00 Room Air PG Care Time/CCT Total # of Minutes Spent Total Time Spent with Patient: Total time spent is greater than 50% in coordination of care (as documented) at patient's floor/unit and/or counseling patient: Coding Level of Care Code 89913 SUB INP/OBS CARE 2/35MIN Diagnoses Acute on chronic heart failure with preserved ejection fraction I50.33 Frailty syndrome in geriatric patient R54 ESRD on hemodialysis N18.6; Z99.2 Abnormal chest xray R93.89 Clostridioides difficile carrier Z22.1 Diabetes mellitus type 2 with complications E11.8 GAVE (gastric antral vascular ectasia) K31.819
[2024-02-01 06:34] LABS: Hematocrit (blood only) 28.8 % (37.0-47.0); Mean Corpuscular Hemoglobin 28.7 pg (25.0-34.0); Mean Corpuscular Hgb Conc 31.3 g/dL (32.0-36.0); Mean Corpuscular Volume 91.7 fL (80.0-100.0); Mean Platelet Volume 10.4 fL (9.4-12.4); Platelet Count 206 K/uL (130-400); RDW Coefficient of Variation 20.4 % (11.5-14.5); RDW Standard Deviation 67.7 fL (36.4-46.3); Red Blood Count 3.14 M/uL (4.20-5.40)
[2024-02-01 06:44] LABS: Calcium 7.7 mg/dl (8.6-10.3); Potassium 3.7 mmol/L (3.5-5.1)
[2024-02-01 06:51] LABS: BUN Creatinine Ratio 8.9 (10-20); Creatinine Clr Calc Pharmacy 8.9 ml/min
--- NOTE | 2024-02-01 09:16 | Hospitalist Progress Note ---
Date of Service February 01, 2024 Assessment & Plan (1) Acute on chronic heart failure with preserved ejection fraction: Plan: In setting of ESRD with dialysis and valvular heart disease (severe aortic stenosis and moderate mitral regurgitation) Poor TAVR candidate and unclear benefit with dual valve disease. No plans for TAVR at this time Anticipate dialysis 01/31. Mildly hypervolemic without oxygen requirement, BNP increase dto 2349 (2) Frailty syndrome in geriatric patient: Plan: PT/OT pending Dialysis 01/31 (3) ESRD on hemodialysis: Plan: Nephrology consulted Anticipate dialysis 01/21. (4) Abnormal chest xray: Plan: CT Chest with IV contrast Mass-like opacities in the periphery of the left lower lobe may reflect areas of dense collapse. Neoplasm not completely excluded. - will need reimaging at short term followup at latest ~3 months (5) Clostridioides difficile carrier: Plan: If needing antibiotics will need to go back on vancomycin daily for duration of antibiotics and 7 days afterwards but has finished recent course. -Continues with soft loose stools 01/31; although not completely liquid. Seem stable to slightly improved compared to when she was on oral vanc. If worsening in frequency or consistent --> liquid add fidaxomycin. (6) Diabetes mellitus type 2 with complications: Plan: HbA1C 5.2 although possibly underestimate given number of blood transfusions, she is not on any medications for this an prior glucose levels have been acceptable therefore no need to start treatment currently (7) GAVE (gastric antral vascular ectasia): Plan: Noted significant history of this with 68 prior blood transfusions since 2019 Continue pantoprazole 40 mg PO BID and famotidine 40mg PO BID (8) Pressure ulcer: Plan: - Diffuse pressure wound with skin breakdown and erythema of the sacrum, erythema extending through contact points of the thigh anteriorly. small satellite erythema present. small 2cm area of grade II erosion at the R superior gluteal cleft. - Wound care consulted - Given satellite erythema will add nystain poweder, and switch to zinc oxide barrier cream Plan VTE Prophyalxis - avoiding chemical prophylaxis due to history of GAVE and needing recurrent blood transfusions Diet - T2DM, heart healthy, low Na Disposition - admit to med/tele Admission and Anticipated Discharge Date Admission Date: January 30, 2024 Subjective Seen at bedside. Fatigued, buttock with increased pain. no other acute concerns. Pending PT/OT. Anticipates dialysis today. Denies fevers, chills, sweats, chest pain, chest pressure. Physical Exam Physical Exam: General: A&Ox3. NAD. Cooperative. HEENT: Atraumatic, normocephalic. Pulm: Diminished but grossly clear -wheezes, -rales, -rhonchi. Symmetrical chest rise. No increased work of breathing. No respiratory distress. Cardiac: RRR, +sm. Radial pulses intact and symmetrical. Abdominal: Nontender, nondistended, soft. BS present. Ext: +pedal edema Buttock: Diffuse pressure wound with skin breakdown and erythema of the sacrum, erythema extending through contact poitns of the thigh anteriorly. small sattelite erythema present. small 2cm area of grade II erosion at the R superior gluteal cleft. Results & Data Results & Data Vital Signs (Past 12 Hours) Vital Signs Temp Pulse Pulse Resp BP Pulse Ox O2 Del Method 02/01/24 07:41 Room Air 02/01/24 07:32 36.6 C 87 18 133/73 95 Room Air 02/01/24 07:09 72 02/01/24 03:36 36.8 C 75 18 133/65 93 Room Air 01/31/24 23:30 36.5 C 84 18 113/61 95 Room Air 01/31/24 22:42 Room Air 01/31/24 22:10 86 PG Care Time/CCT Total # of Minutes Spent Total Time Spent with Patient: Total time spent is greater than 50% in coordination of care (as documented) at patient's floor/unit and/or counseling patient: Coding Level of Care Code 82709 SUB INP/OBS CARE 3/50MIN Diagnoses 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
[2024-02-01] MEDS ORDERED: NYSTATIN POWDER 15GM BTL EXT PRN (09:20)
[2024-02-01] MEDS: BUTT PASTE (ZINC OXIDE 16%) 171 APPLN/57 GM JAR EXT SCH (10:13)
--- NOTE | 2024-02-01 15:16 | Nephrology Progress Note ---
Date of Service February 01, 2024 Assessment & Plan (1) ESRD on hemodialysis: Plan: ESKD due to CRS (severe ). Outpatient HD: [facility], 3hr, 3K 2.5Ca F-180NR, EDW 60.5 kg. Heparin free HD. BP and volume status acceptable. Next HD tomorrow. TDC functioning well. Maintain 1.2 L daily fluid restriction. Sevelamer QAC. Medications are appropriately dosed for IHD. (2) Anemia: Plan: Maintained on Micera as outpatient. Check H/H pretreatment. (3) GAVE (gastric antral vascular ectasia): Plan: No reported melena or hematochezia. (4) Atrial fibrillation, permanent: (5) Aortic stenosis: (6) Frailty syndrome in geriatric patient: Plan: Multiple recent hospitalizations. Complex medical history. Concerning progressive frailty. Goals of care discussions are ongoing. Admission and Anticipated Discharge Date Admission Date: January 30, 2024 Subjective No acute events overnight. Resting comfortably in bed today. Reports some pain in her back from laying in bed. PT consultation pending. Review of Systems Review of Systems: All systems reviewed & are unremarkable except as noted in HPI & below Physical Exam Constitutional: + thin and + frail appearing Eyes: PERRL, conjunctivae normal, anicteric sclerae + anicteric sclerae ENMT: external ear and nose normal, oropharynx normal Neck: normal visual inspection and trachea midline Respiratory: no respiratory distress Auscultation: lungs clear to auscultation bilaterally Cardiovascular: Rate/Rhythm: regular rate and regular rhythm Heart Sounds: normal S1, normal S2 and + murmur Extremities: no edema Musculoskeletal: Extremities: no cyanosis and no clubbing Skin: no jaundice Neurologic: Motor/Sensory: no tremor and no asterixis Psychiatric: Orientation: alert and oriented x 3 Results & Data Vital Signs (Past 12 Hours) Vital Signs Temp Pulse Pulse Resp BP Pulse Ox O2 Del Method 02/01/24 15:04 36.4 C 78 18 123/71 99 Room Air 02/01/24 13:50 76 02/01/24 12:40 36.3 C L 85 18 148/85 H 99 Room Air 02/01/24 07:41 Room Air 02/01/24 07:32 36.6 C 87 18 133/73 95 Room Air 02/01/24 07:09 72 02/01/24 03:36 36.8 C 75 18 133/65 93 Room Air Laboratory Results Laboratory Results - last 24 hr 02/01/24 05:55 WBC 7.60 RBC 3.14 L Hgb 9.0 L Hct 28.8 L MCV 91.7 MCH 28.7 MCHC 31.3 L RDW Std Deviation 67.7 H RDW Coeff of Irasema 20.4 H Plt Count 206 MPV 10.4 Sodium 139 Potassium 3.7 Chloride 106 Carbon Dioxide 24 Anion Gap 9 BUN 31 H Creatinine 3.47 H D Est Cr Clr Drug Dosing 8.9 eGFR 12.41 BUN/Creatinine Ratio 8.9 L Glucose 131 H Calcium 7.7 L B-Natriuretic Peptide 2349 H PG Care Time/CCT Total # of Minutes Spent Total Time Spent with Patient: Total time spent is greater than 50% in coordination of care (as documented) at patient's floor/unit and/or counseling patient: Coding Level of Care Code 22007 SUB INP/OBS CARE 3/50MIN Diagnoses ESRD on hemodialysis N18.6; Z99.2 Anemia due to chronic kidney disease, on chronic dialysis N18.6; D63.1; Z99.2 Anemia type: due to chronic kidney disease Chronic kidney disease stage: on chronic dialysis GAVE (gastric antral vascular ectasia) K31.819 Atrial fibrillation, permanent I48.21 Aortic valve stenosis, etiology of cardiac valve disease unspecified I35.0 Cardiac valve disease etiology: etiology unspecified Frailty syndrome in geriatric patient R54 (2) Anemia Anemia type: due to chronic kidney disease Chronic kidney disease stage: on chronic dialysis Qualified Code(s): N18.6 - End stage renal disease; D63.1 - Anemia in chronic kidney disease; Z99.2 - Dependence on renal dialysis (5) Aortic stenosis Cardiac valve disease etiology: etiology unspecified Qualified Code(s): I35.0 - Nonrheumatic aortic (valve) stenosis
[2024-02-02 06:43] LABS: Basophils # (auto) 0.05 K/uL (0.00-0.20); Basophils % (auto) 0.6 %; Eosinophils # (auto) 0.05 K/uL (0.00-0.50); Eosinophils % (auto) 0.6 %; Hematocrit (blood only) 29.7 % (37.0-47.0); Hemoglobin 9.3 g/dl (12.0-16.0); Immature Granulocytes # (auto) 0.04 K/uL (0.01-0.20); Immature Granulocytes % (auto) 0.5 %; Lymphocytes % (auto) 4.6 %; Mean Corpuscular Hemoglobin 28.4 pg (25.0-34.0); Mean Corpuscular Hgb Conc 31.3 g/dL (32.0-36.0); Mean Corpuscular Volume 90.5 fL (80.0-100.0); Mean Platelet Volume 10.9 fL (9.4-12.4); Monocytes # (auto) 0.63 K/uL (0.11-0.59); Monocytes % (auto) 7.3 %; Neutrophils # (auto) 7.48 K/uL (1.40-6.50); Neutrophils % (auto) 86.4 %; Platelet Count 219 K/uL (130-400); RDW Coefficient of Variation 20.3 % (11.5-14.5); RDW Standard Deviation 66.2 fL (36.4-46.3); Red Blood Count 3.28 M/uL (4.20-5.40); White Blood Count 8.65 K/ul (4.8-10.8)
[2024-02-02 06:57] LABS: BUN Creatinine Ratio 9.8 (10-20); Calcium 7.8 mg/dl (8.6-10.3); Creatinine Clr Calc Pharmacy 7.6 ml/min; Potassium 3.9 mmol/L (3.5-5.1)
[2024-02-02 07:17] LABS: Ferritin 342.1 ng/ml (8-388)
[2024-02-02 07:26] LABS: Anisocytosis Present; Ovalocytes 2+; Poikilocytosis Present; Polychromasia 1+; Tear Drop Cells 1+
[2024-02-02] MEDS: [UNRECOGNIZED DRUG - OTHER] IV ONE (10:34)
[2024-02-02] MEDS: EPOETIN ALFA 10000 UNIT/ML IV ONE (10:34)
[2024-02-02] MEDS: IRON SUCROSE 100 MG in SYRINGE 0 ML IV ONE (10:34)
--- NOTE | 2024-02-02 10:56 | Nephrology Progress Note ---
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 Outpatient HD: [facility], 3hr, 3K 2.5Ca F-180NR, EDW 60.5 kg. Heparin free HD. Orders for HD today entered into the EHR and reviewed with the transport corps officer. Sully is tolerating dialysis well. TDC functioning well. Maintain 1.2 L daily fluid restriction. Sevelamer QAC. Medications are appropriately dosed for IHD. (2) Anemia: Plan: Maintained on Micera as outpatient. Venofer 100 mg and Epogen 89114 units provided with HD today. (3) GAVE (gastric antral vascular ectasia): Plan: No reported melena or hematochezia. (4) Atrial fibrillation, permanent: (5) Aortic stenosis: (6) Frailty syndrome in geriatric patient: Plan: Multiple recent hospitalizations. Complex medical history. Concerning progressive frailty. Goals of care discussions are ongoing. Admission and Anticipated Discharge Date Admission Date: January 30, 2024 Subjective No acute events overnight. Sully was seen and evaluated during hemodialysis. She is tolerating treatment well. BP acceptable. Qb at goal. She is breathing comfortably. She reports pain and discomfort in her back and sacrum. She is also experiencing a dry cough this AM. No fevers or chills. Review of Systems Review of Systems: All systems reviewed & are unremarkable except as noted in HPI & below Physical Exam Constitutional: + thin and + frail appearing Eyes: PERRL, conjunctivae normal, anicteric sclerae + anicteric sclerae ENMT: external ear and nose normal, oropharynx normal Neck: normal visual inspection and trachea midline Respiratory: no respiratory distress Auscultation: lungs clear to auscultation bilaterally Cardiovascular: Rate/Rhythm: + irregularly irregular Heart Sounds: normal S1, normal S2 and + murmur Extremities: no edema Musculoskeletal: Extremities: no cyanosis and no clubbing Skin: no jaundice Neurologic: Motor/Sensory: no tremor and no asterixis Psychiatric: Orientation: alert and oriented x 3 Results & Data Vital Signs (Past 12 Hours) Vital Signs Temp Pulse Pulse Pulse Resp BP BP 02/02/24 10:30 84 119/63 02/02/24 10:05 02/02/24 10:00 85 129/63 11/30/24 09:30 84 122/65 02/02/24 09:22 84 126/64 02/02/24 09:15 36.5 C 85 02/02/24 07:42 36.7 C 81 16 113/62 02/02/24 07:23 84 02/02/24 03:48 36.5 C 77 16 136/82 02/02/24 00:05 02/01/24 23:35 36.6 C 85 16 148/85 H Pulse Ox O2 Del Method 02/02/24 10:30 02/02/24 10:05 Room Air 02/02/24 10:00 02/02/24 09:30 02/02/24 09:22 02/02/24 09:15 02/02/24 07:42 95 Room Air 02/02/24 07:23 02/02/24 03:48 97 Room Air 02/02/24 00:05 Room Air 02/01/24 23:35 99 Room Air Laboratory Results Laboratory Results - last 24 hr 02/02/24 06:23 WBC 8.65 RBC 3.28 L Hgb 9.3 L Hct 29.7 L MCV 90.5 MCH 28.4 MCHC 31.3 L RDW Std Deviation 66.2 H RDW Coeff of Irasema 20.3 H Plt Count 219 MPV 10.9 Immature Gran % (Auto) 0.5 Neut % (Auto) 86.4 Lymph % (Auto) 4.6 [place] % (Auto) 7.3 Eos % (Auto) 0.6 Baso % (Auto) 0.6 Neut # (Auto) 7.48 H Lymph # (Auto) 0.40 L [place] # (Auto) 0.63 H Eos # (Auto) 0.05 Baso # (Auto) 0.05 Immature Gran # (Auto) 0.04 Polychromasia 1+ Poikilocytosis Present Anisocytosis Present Tear Drop Cells 1+ Ovalocytes 2+ Sodium 137 Potassium 3.9 Chloride 103 Carbon Dioxide 24 Anion Gap 10 BUN 40 H Creatinine 4.10 H D Est Cr Clr Drug Dosing 7.6 eGFR 10.15 BUN/Creatinine Ratio 9.8 L Glucose 135 H Calcium 7.8 L Iron 26 L TIBC 156 L Unsaturated IBC 130 L Transferrin % Sat 17 Ferritin 342.1 PG Care Time/CCT Total # of Minutes Spent Total Time Spent with Patient: Total time spent is greater than 50% in coordination of care (as documented) at patient's floor/unit and/or counseling patient: Coding Level of Care Code 31209 SUB INP/OBS CARE MIN Diagnoses ESRD on hemodialysis N18.6; Z99.2 Anemia due to chronic kidney disease, on chronic dialysis N18.6; D63.1; Z99.2 Anemia type: due to chronic kidney disease Chronic kidney disease stage: on chronic dialysis GAVE (gastric antral vascular ectasia) K31.819 Atrial fibrillation, permanent I48.21 Aortic valve stenosis, etiology of cardiac valve disease unspecified I35.0 Cardiac valve disease etiology: etiology unspecified Frailty syndrome in geriatric patient R54 (2) Anemia Anemia type: due to chronic kidney disease Chronic kidney disease stage: on chronic dialysis Qualified Code(s): N18.6 - End stage renal disease; D63.1 - Anemia in chronic kidney disease; Z99.2 - Dependence on renal dialysis (5) Aortic stenosis Cardiac valve disease etiology: etiology unspecified Qualified Code(s): I35.0 - Nonrheumatic aortic (valve) stenosis
[2024-02-02] MEDS: traMADol HCL 50 MG TABLET PO PRN (15:43)
--- NOTE | 2024-02-02 22:26 | Hospitalist Progress Note ---
Date of Service February 02, 2024 Assessment & Plan (1) Acute on chronic heart failure with preserved ejection fraction: Plan: In setting of ESRD with dialysis and valvular heart disease (severe aortic stenosis and moderate mitral regurgitation) Poor TAVR candidate and unclear benefit with dual valve disease. No plans for TAVR at this time Anticipate dialysis 01/31. Mildly hypervolemic without oxygen requirement, BNP increase dto 2349 (2) Frailty syndrome in geriatric patient: Plan: PT/OT recommend rehab. will discuss with family. Dialysis 02/01 (3) ESRD on hemodialysis: Plan: Nephrology consulted [facility] on 02/01 (4) Abnormal chest xray: Plan: CT Chest with IV contrast Mass-like opacities in the periphery of the left lower lobe may reflect areas of dense collapse. Neoplasm not completely excluded. - will need reimaging at short term followup at latest ~3 months (5) Clostridioides difficile carrier: Plan: If needing antibiotics will need to go back on vancomycin daily for duration of antibiotics and 7 days afterwards but has finished recent course. -Continues with soft loose stools 01/31; although not completely liquid. Seem stable to slightly improved compared to when she was on oral vanc. If worsening in frequency or consistent --> liquid add fidaxomycin. (6) Diabetes mellitus type 2 with complications: Plan: HbA1C 5.2 although possibly underestimate given number of blood transfusions, she is not on any medications for this an prior glucose levels have been acceptable therefore no need to start treatment currently (7) GAVE (gastric antral vascular ectasia): Plan: Noted significant history of this with 68 prior blood transfusions since 2019 Continue pantoprazole 40 mg PO BID and famotidine 40mg PO BID (8) Pressure ulcer: Plan: - Diffuse pressure wound with skin breakdown and erythema of the sacrum, erythema extending through contact points of the thigh anteriorly. small satellite erythema present. small 2cm area of grade II erosion at the R superior gluteal cleft. - Wound care consulted - Given satellite erythema will add nystain mukund, and switch to zinc oxide barrier cream Plan VTE Prophyalxis - avoiding chemical prophylaxis due to history of GAVE and needing recurrent blood transfusions Diet - T2DM, heart healthy, low Na Disposition - admit to med/tele Admission and Anticipated Discharge Date Admission Date: January 30, 2024 Subjective Patient reports no new symptoms. Review of Systems Review of Systems: All systems reviewed & are unremarkable except as noted in HPI & below Physical Exam Constitutional: well developed; + not well nourished and no acute distress Respiratory: normal respiratory effort; no respiratory distress Auscultation: lungs clear to auscultation bilaterally; no crackles and no wheezes Cardiovascular: Rate/Rhythm: regular rate and regular rhythm Heart Sounds: + murmur (YAW LUSB and holosystolic at apex 5/6) Extremities: normal capillary refill and + pedal edema (2+ tight bilateral lower extremities) Gastrointestinal (Abdomen): normal bowel sounds, soft, nontender, no hepatosplenomegaly Neurologic: moves all extremities and awake; no focal motor deficits and not confused Psychiatric: A+Ox3, euthymic affect Results & Data Results & Data Vital Signs (Past 12 Hours) Vital Signs Temp Pulse Pulse Resp BP BP BP 02/02/24 19:39 36.6 C 90 20 115/65 02/02/24 16:35 36.8 C 87 16 113/67 02/02/24 14:39 93 H 02/02/24 12:30 36.5 C 88 129/62 02/02/24 12:00 81 106/56 L 02/02/24 11:30 77 112/56 L 02/02/24 11:00 79 111/55 L 02/02/24 10:30 84 119/63 Pulse Ox O2 Del Method 02/02/24 19:39 94 Room Air 02/02/24 16:35 96 Room Air 02/02/24 14:39 02/02/24 12:30 02/02/24 12:00 02/02/24 11:30 02/02/24 11:00 02/02/24 10:30 PG Care Time/CCT Total # of Minutes Spent Total Time Spent with Patient: Total time spent is greater than 50% in coordination of care (as documented) at patient's floor/unit and/or counseling patient: Coding Level of Care Code 29419 SUB INP/OBS CARE 2/35MIN Diagnoses 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
[2024-02-03 05:58] LABS: Basophils # (auto) 0.05 K/uL (0.00-0.20); Basophils % (auto) 0.6 %; Eosinophils # (auto) 0.04 K/uL (0.00-0.50); Eosinophils % (auto) 0.5 %; Hematocrit (blood only) 29.2 % (37.0-47.0); Hemoglobin 9.1 g/dl (12.0-16.0); Immature Granulocytes # (auto) 0.06 K/uL (0.01-0.20); Immature Granulocytes % (auto) 0.8 %; Lymphocytes # (auto) 0.47 K/uL (1.20-3.40); Mean Corpuscular Hemoglobin 28.4 pg (25.0-34.0); Mean Corpuscular Hgb Conc 31.2 g/dL (32.0-36.0); Mean Corpuscular Volume 91.3 fL (80.0-100.0); Monocytes % (auto) 7.7 %; Neutrophils # (auto) 6.61 K/uL (1.40-6.50); Neutrophils % (auto) 84.4 %; Platelet Count 215 K/uL (130-400); RDW Coefficient of Variation 20.4 % (11.5-14.5); RDW Standard Deviation 67.3 fL (36.4-46.3); White Blood Count 7.83 K/ul (4.8-10.8)
[2024-02-03 06:13] LABS: BUN Creatinine Ratio 8.9 (10-20); Calcium 7.8 mg/dl (8.6-10.3); Creatinine Clr Calc Pharmacy 10.5 ml/min; Potassium 3.8 mmol/L (3.5-5.1)
[2024-02-03 06:22] LABS: Anisocytosis Present; Ovalocytes 1+; Polychromasia 1+
[2024-02-03 11:26] VITALS: BP 119/68; RESP 16; TEMP 98.1; O2SAT 96
--- NOTE | 2024-02-03 12:21 | Nephrology Progress Note ---
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 Outpatient HD: [facility], 3hr, 3K 2.5Ca F-180NR, EDW 60.5 kg. Heparin free HD. Completed HD yesterday with adequate UF and clearance. BP and volume status reasonably controlled. TDC functioning well. Maintain 1.2 L daily fluid restriction. Sevelamer QAC. Medications are appropriately dosed for IHD. (2) Anemia: Plan: Maintained on Micera as outpatient. Venofer 100 mg and Epogen 01825 units provided with HD yesterday. (3) GAVE (gastric antral vascular ectasia): Plan: No reported melena or hematochezia. (4) Atrial fibrillation, permanent: (5) Aortic stenosis: (6) Frailty syndrome in geriatric patient: Plan: Goals of care discussions are ongoing. Admission and Anticipated Discharge Date Admission Date: January 30, 2024 Subjective No acute events overnight. Tolerated HD well yesterday. Net UF 2.5 L. Sully continues to endorse weakness and pain in her lower back. She feels tired this AM "even though I've done nothing but slept for 2 days. I'm just tired all the time." Review of Systems Review of Systems: All systems reviewed & are unremarkable except as noted in HPI & below Physical Exam Constitutional: + thin and + frail appearing Eyes: PERRL, conjunctivae normal, anicteric sclerae + anicteric sclerae ENMT: external ear and nose normal, oropharynx normal Neck: normal visual inspection and trachea midline Respiratory: no respiratory distress Auscultation: lungs clear to auscultation bilaterally Cardiovascular: Rate/Rhythm: regular rate and regular rhythm Heart Sounds: normal S1, normal S2 and + murmur Extremities: no edema Musculoskeletal: Extremities: no cyanosis and no clubbing Skin: no jaundice Neurologic: Motor/Sensory: no tremor and no asterixis Psychiatric: Orientation: alert and oriented x 3 Results & Data Vital Signs (Past 12 Hours) Vital Signs Temp Pulse Pulse Pulse Resp BP BP 02/03/24 11:25 36.7 C 77 16 119/68 02/03/24 09:53 02/03/24 08:03 82 02/03/24 07:49 36.9 C 80 17 127/68 02/03/24 03:57 36.5 C 84 20 112/61 02/03/24 01:08 Pulse Ox O2 Del Method 02/03/24 11:25 96 Room Air 02/03/24 09:53 Room Air 02/03/24 08:03 02/03/24 07:49 93 Room Air 02/03/24 03:57 95 Room Air 02/03/24 01:08 Room Air Laboratory Results Laboratory Results - last 24 hr 02/03/24 05:24 WBC 7.83 RBC 3.20 L Hgb 9.1 L Hct 29.2 L MCV 91.3 MCH 28.4 MCHC 31.2 L RDW Std Deviation 67.3 H RDW Coeff of Irasema 20.4 H Plt Count 215 MPV 11.0 Immature Gran % (Auto) 0.8 Neut % (Auto) 84.4 Lymph % (Auto) 6.0 [place] % (Auto) 7.7 Eos % (Auto) 0.5 Baso % (Auto) 0.6 Neut # (Auto) 6.61 H Lymph # (Auto) 0.47 L [place] # (Auto) 0.60 H Eos # (Auto) 0.04 Baso # (Auto) 0.05 Immature Gran # (Auto) 0.06 Polychromasia 1+ Anisocytosis Present Ovalocytes 1+ Sodium 137 Potassium 3.8 Chloride 103 Carbon Dioxide 26 Anion Gap 8 BUN 26 H Creatinine 2.93 H D Est Cr Clr Drug Dosing 10.5 eGFR 15.20 BUN/Creatinine Ratio 8.9 L Glucose 129 H Calcium 7.8 L PG Care Time/CCT Total # of Minutes Spent Total Time Spent with Patient: Total time spent is greater than 50% in coordination of care (as documented) at patient's floor/unit and/or counseling patient: Coding Level of Care Code 38971 SUB INP/OBS CARE 3/50MIN Diagnoses ESRD on hemodialysis N18.6; Z99.2 Anemia due to chronic kidney disease, on chronic dialysis N18.6; D63.1; Z99.2 Anemia type: due to chronic kidney disease Chronic kidney disease stage: on chronic dialysis GAVE (gastric antral vascular ectasia) K31.819 Atrial fibrillation, permanent I48.21 Aortic valve stenosis, etiology of cardiac valve disease unspecified I35.0 Cardiac valve disease etiology: etiology unspecified Frailty syndrome in geriatric patient R54 (2) Anemia Anemia type: due to chronic kidney disease Chronic kidney disease stage: on chronic dialysis Qualified Code(s): N18.6 - End stage renal disease; D63.1 - Anemia in chronic kidney disease; Z99.2 - Dependence on renal dialysis (5) Aortic stenosis Cardiac valve disease etiology: etiology unspecified Qualified Code(s): I35.0 - Nonrheumatic aortic (valve) stenosis
[2024-02-03 14:27] VITALS: PULSE 79
[2024-02-03] MEDS: HEPARIN 100 UNIT/ML 5ML FLUSH FLUSH PRN (14:31)
--- NOTE | 2024-02-04 12:29 | Coding Query ---
PRESSURE ULCER DOCUMENTATION To promote full compliance with coding requirements relating to patient care, physician participation is requested in all cases of plating equipment tender uncertainty. Please assist us with the question(s) below: Please specify the known or suspected type by placing an "X" within the parenthesis (x). A pressure ulcer of the Sacrum is documented starting on the 01/31 Progress Note. If possible, please check the box that provides the specific stage of the pressure ulcer ( ) Stage I (x) Stage II ( ) Stage III ( ) Stage IV ( ) Unstageable Was the pressure ulcer present on admission? Please check the appropriate box for the pressure ulcer: ( ) Present on admission ( ) Not present on admission ( x) Unable to be clinically determined Thank you Alma OLVERA
--- NOTE | 2024-02-07 20:29 | Discharge Summary ---
Discharge Summary Date of Service February 03, 2024 Principal Dx & Hospital Course #1 = Principal Diagnosis (1) Acute on chronic heart failure with preserved ejection fraction: In setting of ESRD with dialysis and valvular heart disease (severe aortic stenosis and moderate mitral regurgitation) Poor TAVR candidate and unclear benefit with dual valve disease. No plans for TAVR at this time Dialysis on 02.01. Mildly hypervolemic without oxygen requirement Patient refused rehab placement. Daughter aware and understands risks but wants to try home health (2) Frailty syndrome in geriatric patient: PT/OT recommend rehab. will discuss with family. Dialysis 02/01 (3) ESRD on hemodialysis: Nephrology consulted [facility] on 02/01 (4) Abnormal chest xray: CT Chest with IV contrast Mass-like opacities in the periphery of the left lower lobe may reflect areas of dense collapse. Neoplasm not completely excluded. - will need reimaging at short term followup at latest ~3 months (5) Clostridioides difficile carrier: If needing antibiotics will need to go back on vancomycin daily for duration of antibiotics and 7 days afterwards but has finished recent course. -Continues with soft loose stools 01/31; although not completely liquid. Seem stable to slightly improved compared to when she was on oral vanc. If worsening in frequency or consistent --> liquid add fidaxomycin. (6) Diabetes mellitus type 2 with complications: HbA1C 5.2 although possibly underestimate given number of blood transfusions, s he is not on any medications for this an prior glucose levels have been acceptable therefore no need to start treatment currently (7) GAVE (gastric antral vascular ectasia): Noted significant history of this with 68 prior blood transfusions since 2019 Continue pantoprazole 40 mg PO BID and famotidine 40mg PO BID (8) Pressure ulcer: - Diffuse pressure wound with skin breakdown and erythema of the sacrum, erythema extending through contact points of the thigh anteriorly. small satellite erythema present. small 2cm area of grade II erosion at the R superior gluteal cleft. - Wound care consulted - Given satellite erythema will add lashae duval, and switch to zinc oxide barrier cream Admission HPI Per Admitting Provider Sully Faria is an 83 year old female who presents to the ER with shortness of breath. She reports doing well after recent admission for coronavirus infection with secondary bacterial pneumonia up until the last 2 days when she has been getting increasingly short of breath. Shortness of breath mild at rest but with significant orthopnea and severe on any mild movement. No fever, chills, chest pain, cough, sinus congestion. Associated weight gain and leg swelling noted. As discussed with Dr Villarreal she was unable to tolerate dialysis enough to get her down to her estimated dry weight in dialysis yesterday. Discharge Exam Constitutional well developed; + not well nourished and no acute distress Respiratory normal respiratory effort; no respiratory distress Auscultation: lungs clear to auscultation bilaterally; no crackles and no wheezes Cardiovascular Rate/Rhythm: regular rate and regular rhythm Heart Sounds: + murmur (YAW LUSB and holosystolic at apex 5/6) Extremities: normal capillary refill and + pedal edema (2+ tight bilateral lower extremities) Gastrointestinal (Abdomen) normal bowel sounds, soft, nontender, no hepatosplenomegaly Neurologic moves all extremities and awake; no focal motor deficits and not confused Psychiatric A+Ox3, euthymic affect Discharge Plan Discharge Items Patient Disposition: Home - Home Health Services Reason For Visit: ACUTE ON CHRONIC CHF, ESRD ON DIALYSIS, LUNG LESIO Discharge Diagnosis: as above. Activity: Resume your previous activity Non-emergency contact: Primary Care Provider Call non-emergency contact if: you have any medication questions Follow-up/Referrals: Agatha Alfaro DO [Primary Care Provider] - Diet: Carb Consistent or DM2 and Dialysis Renal Addtl Attending Provider Instructions: Recommend followup with PCP in 1-2 weeks. Cardiology here does not think a TAVR would be a substantial benefit given that you have 2 valve problems, not just the severe aortic stenosis. However, it may be worth a discussion with a provider who performs this procedure to discuss your options in the outpatient setting. CT Chest with IV contrast Mass-like opacities in the periphery of the left lower lobe may reflect areas of dense collapse. - will need reimaging at short term followup at latest ~3 months Pending Studies at Discharge: No Stand-Alone Forms: My [employer], Smoking Cessation Medications and DC Order Prescriptions: Continued (DME) Fitted Briefs X-Large Misc See Rx Instructions .Route Qty: 150 5RF Rx Instructions: using 4-5 per day R19.7 triamcinolone acetonide 0.5 % cream 1 applic topical BID PRN (Reason: skin irritation) Qty: 60 1RF tramadol 50 mg tablet 50 mg PO BID PRN (Reason: Pain) Qty: 60 0RF sertraline 50 mg tablet 50 mg PO DAILY Qty: 30 2RF methocarbamol 500 mg tablet 500 mg PO TID PRN (Reason: muscle spasm) Qty: 90 1RF ropinirole 0.5 mg tablet 0.5 mg PO UD Qty: 90 1RF Rx Instructions: Take 0.5mg by mouth in the morning; then take 1.5mg by mouth at bedtime clopidogrel [Plavix] 75 mg tablet 75 mg PO DAILY Qty: 90 1RF fluticasone propionate [Flonase Allergy Relief] 50 mcg/actuation spray,suspension 1 spray intranasal DAILY Qty: 16 2RF Rx Instructions: Unable to verify OTC meds at this date/time. nystatin 100,000 unit/gram powder 1 applic TOPICAL BID PRN (Reason: IRRITATION) Qty: 60 0RF cholecalciferol (vitamin D3) [Vitamin D3] 1,000 unit Capsule 2,000 unit PO QAM Rx Instructions: Unable to verify OTC meds at this date/time. estradiol 0.01 % (0.1 mg/gram) cream 1 applic VAGINAL 3XWK PRN (Reason: ONLY WHEN BURNING) cyanocobalamin (vitamin B-12) [Vitamin B-12] 1,000 mcg tablet 1,000 mcg PO QAM Rx Instructions: Unable to verify OTC meds at this date/time. Cavilon Durable Barrier 1.3 % cream 1 applic topical DAILY PRN (Reason: skin irritation) Rx Instructions: as needed for skin protection mv,Ca,min-folic acid-vit K1 400-20 mcg Tablet 1 tab PO DAILY Rx Instructions: Unable to verify OTC meds at this date/time. loperamide 2 mg Capsule 2 mg PO Q6H PRN (Reason: Diarrhea) Qty: 0 0RF Rx Instructions: Unable to verify OTC meds at this date/time. Administer after each loose stoo l until symptoms controlled; do not exceed 8 mg per 24 hrs calcium carbonate-vitamin D3 [Calcium 600 + D(3)] 600 mg-10 mcg (400 unit) Tablet 1 tab PO DAILY Rx Instructions: Unable to verify OTC meds at this date/time. omega-3 fatty acids 1,000 mg Capsule 1,000 mg PO DAILY Rx Instructions: Unable to verify OTC meds at this date/time. levothyroxine 150 mcg tablet 150 mcg PO QAM sevelamer carbonate 800 mg tablet 800 mg PO TIDWMEAL Metamucil 3.4 gram/5.4 gram powder 1 tbsp PO DAILY Qty: 660 0RF Rx Instructions: Unable to verify OTC meds at this date/time. Mix into at least 8 oz of water or juice before administering. atorvastatin 40 mg tablet 0 mg PO DAILY Rx Instructions: Last filled 12/18/23 x30 day supply. Original Directions: 40mg by mouth daily famotidine 40 mg tablet 0 mg PO BID Rx Instructions: Last filled 11/18/23 x30 day supply. Original Directions: 40mg by mouth twice daily furosemide 80 mg tablet 0 mg PO BID Rx Instructions: Last filled 08/2023 x90 day supply. Original Directions: 80mg by mouth twice daily pantoprazole 40 mg tablet,delayed release (DR/EC) 0 mg PO BID Rx Instructions: Last filled 11/16/23 x30 day supply. Original Directions: 40mg by mouth twice daily bethanechol chloride 50 mg tablet 0 mg PO BID Rx Instructions: Last filled 09/2023 x90 day supply. Original Directions: 50mg by mouth twice daily vancomycin 125 mg Capsule 125 mg PO UD Qty: 0 0RF Rx Instructions: Unable to verify med at this date/time. Original Directions: Take 125mg qid x 10 days; 125mg bid x 7 days; 124mg daily x 7 days; then 125mg q 2-3 days for 2-8 weeks. Discharge Orders: Discharge Order (Routine); Ordered 02/03/24 Ordered By: Garcia Nguyen Admission Data Admit Date/Time: 01/30/24 13:12 Attending Provider: Garcia Nguyen Admit Provider: Davian Stephens Primary Care Provider: Agatha Alfaro Other Providers: Luke Villarreal; Ronald Moura Other Interventions: Discharge Summary Assessment (RN) Last Done: 02/03/24 14:26 Hospital Stay Data Consultations 01/30/24 12:57 Consult Nephrology Routine 01/30/24 16:06 Consult Cardiology Routine Diagnostic Imagining Performed 01/30/24 12:57 CT chest diagnostic w con Stat Pending Results Patient Have Any Pending Studies at Discharge: No Discharge Instructions Given to Patient (Per Discharging Provider) Recommend followup with PCP in 1-2 weeks. Cardiology here does not think a TAVR would be a substantial benefit given that you have 2 valve problems, not just the severe aortic stenosis. However, it may be worth a discussion with a provider who performs this procedure to discuss your options in the outpatient setting. CT Chest with IV contrast Mass-like opacities in the periphery of the left lower lobe may reflect areas of dense collapse. - will need reimaging at short term followup at latest ~3 months Total Time Total Time Spent Total Time Spent (In Minutes): 32 Coding Level of Care Code 30582 INP/OBS DISCH >30 MIN Diagnoses Acute on chronic heart failure with preserved ejection fraction I50.33 Frailty syndrome in geriatric patient R54 ESRD on hemodialysis N18.6; Z99.2 Abnormal chest xray R93.89 Clostridioides difficile carrier Z22.1 Diabetes mellitus type 2 with complications E11.8 GAVE (gastric antral vascular ectasia) K31.819 Pressure injury of sacral region, unstageable L89.150 Pressure injury location: sacral region Pressure injury stage: unstageable
== END 2024-02-03 15:25 | disposition home health service (06) | DRG 291 ==
LOC: ED 10:54 → 2W 13:12 → SUATTDRO 13:12 → 2W 14:00
DX: K31.819 Angiodysplasia of stomach and duodenum without bleeding; Z79.02 Long term (current) use of antithrombotics/antiplatelets; Z83.3 Family history of diabetes mellitus; E11.22 Type 2 diabetes mellitus with diabetic chronic kidney disease; R91.8 Other nonspecific abnormal finding of lung field; I13.2 Hypertensive heart and chronic kidney disease with heart failure and with stage 5 chronic kidney disease, or end stage renal disease; Z88.2 Allergy status to sulfonamides; Z22.1 Carrier of other intestinal infectious diseases; I48.21 Permanent atrial fibrillation; Z79.51 Long term (current) use of inhaled steroids; Z99.2 Dependence on renal dialysis; I25.2 Old myocardial infarction; I44.1 Atrioventricular block, second degree; L89.152 Pressure ulcer of sacral region, stage 2; Z79.890 Hormone replacement therapy; I08.0 Rheumatic disorders of both mitral and aortic valves; Z79.899 Other long term (current) drug therapy; I1A.0 Resistant hypertension; E78.00 Pure hypercholesterolemia, unspecified; Z88.1 Allergy status to other antibiotic agents; D63.1 Anemia in chronic kidney disease; E03.9 Hypothyroidism, unspecified; N18.6 End stage renal disease; I50.33 Acute on chronic diastolic (congestive) heart failure; Z82.49 Family history of ischemic heart disease and other diseases of the circulatory system; R54 Age-related physical debility; I25.10 Atherosclerotic heart disease of native coronary artery without angina pectoris

== ENCOUNTER 2024-02-06 17:11 | Inpatient (IN) ==
--- NOTE | 2024-02-06 17:23 | Emergency Department Note ---
Impression & Plan Weakness generalized, Elevated troponin I level ED Provider Note NAME: NIURKA QUIÑONES AGE: 83 SEX: F : 1940 ARRIVES VIA: Ambulance INFORMANT: Patient, ED PROVIDER(S): Andres Coyle DO CHIEF COMPLAINT: Weakness HPI: The patient is an 83-year-old female who presented to the emergency department for an evaluation of generalized weakness. The patient was discharged to our facility on a few days ago. She was sent back for possible placement. The patient has a history of renal dialysis. Her last dialysis was on Sunday. She is due for dialysis tomorrow. She denies having any chest pain or difficulty breathing. She has no fevers. She denies having any falls. She was seen by visiting nurse today and sent to the ER by ambulance. ROS: See above HPI for pertinent positives & negatives. A total of 10 systems reviewed and were otherwise negative. PAST MEDICAL HISTORY: See Below PAST SURGICAL HISTORY: See Below FAMILY HISTORY: See Below SOCIAL HISTORY: See Below HOME MEDICATIONS: See Below ALLERGIES: See Below VITALS: See Below PHYSICAL EXAMINATION: GENERAL: Patient is awake alert in no acute distress patient is resting comfortably and showing no signs of anxiety EYES: The conjunctivae are clear. The pupils are round and reactive. EARS, NOSE, MOUTH AND THROAT: The nose is without any evidence of any deformity. Mucous membranes are moist. Tongue is midline. NECK: The neck is nontender and supple. RESPIRATORY: Normal respiratory effort is noted there is no evidence of wheezing rhonchi or rales CARDIOVASCULAR: Regular rate and rhythm was noted to auscultation. Systolic murmur was suggested. GASTROINTESTINAL: The abdomen is soft. Abdomen is nontender. PELVIS: The Pelvis is stable. No tenderness to palpation is noted. BACK: No midline tenderness or or step-off noted range of motion in flexion extension as well as rotation no signs of muscle spasm noted MUSCULOSKELETAL/EXTREMITIES: There is no evidence of gross deformity full range of motion is noted in the hips and shoulders. SKIN: Alysis catheter is in the right chest wall. NEUROLOGIC: Patient is awake alert and oriented x3 the patient is able to hold each leg off the bed for greater than 5 seconds. MEDICAL DECISION MAKING: The patient is an 83-year-old female who presented to the emergency department for an evaluation of generalized weakness. The patient was recently discharged to our facility. She is visited by home health. They are concerned that she is not doing well and the patient was sent to the emergency department for placement as well as further workup. I discussed patient's laboratory and radiographic studies with her. She was found have a slight elevation in her troponin which is likely secondary to her chronic renal insufficiency. Looking back at her labs it is always elevated. I discussed her condition with the on- call [facility] hospitalist. Triage Nursing notes reviewed. Prior medical records reviewed Vital Signs: reviewed and remarkable for no significant abnormalities Differential diagnosis: Infection, dehydration, metabolic abnormality, hypo/hyperglycemia, electrolyte disturbance, anemia, hypoxia, cardiac sources, intracerebral event, toxicologic, neurologic, as well as other pathologies. ER treatment provided: See below Diagnostics interpreted by me: ECG: EKG was obtained in the emergency department. My interpretation is sinus rhythm at 86 beats per minute. First-degree AV block was noted. This was compared to a tracing from January 30, 2024. No changes were noted. Cardiac Monitoring: An order was placed for continuous cardiac monitoring. The monitor shows a rate of 77 bpm with sinus rhythm. Laboratory studies: As stated above and show below. Imaging studies: See below. Radiographic imaging was reviewed by myself Consultation(s): Dr. Ruelas was notified about the patient. He is on-call for the [facility] hospitalist group. Past Med/Surg History Problem List (Updated 02/06/24 @ 19:22 by Andres Coyle DO) Elevated troponin I level (Acute) Weakness generalized (Acute) Complication associated with dialysis catheter (Acute) Severe aortic stenosis History of CVA (cerebrovascular accident) (11/2023) R cerebellar stroke Hypertension Hypothyroidism Abnormal chest xray Valvular heart disease Acute on chronic heart failure with preserved ejection fraction Frailty syndrome in geriatric patient ESRD on hemodialysis Pressure ulcer Generalized weakness (Acute) Ambulatory dysfunction (Acute) Pleural effusion Anemia (Acute) Bilateral edema of lower extremity (Acute) Ascites Aortic stenosis 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 Pancytopenia 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 aguirre Osteoarthritis Hyperlipidemia History of CVA (cerebrovascular accident) (2019) ~5years ago, woke up with weakness in her rt hand; L lacunar infarct; previously on plavix>no residual effects Hiatal hernia GERD without esophagitis Fatty liver Essential tremor MINOR IN HAND Diabetic retinopathy Chronic hyponatremia Chronic diastolic heart failure CAD (coronary artery disease) Anxiety Anemia of chronic disease GAVE (gastric antral vascular ectasia) (Acute) Medical History Cerebellar stroke Coronavirus infection, unspecified Acute UTI (urinary tract infection) Pneumonia Fall Facial droop Right sided weakness Sacral wound Physical deconditioning Generalized weakness Sepsis Pleural effusion, bilateral Pericardial effusion Non-ST elevation NM (NSTEMI) Pancytopenia Hemorrhoids History of GI bleed hx 08/2021, given transfusion-per medical record REASON FOR UPCOMING PROCEDURE Hx of atrial fibrillation, no current medication per medical report History of renal dialysis TUES,THUR AND SAT ([facility] [place]ACROSS FROM [facility]) ACCESS SITE RIGHT SIDE OF CHEST/ ? DETAILS Diabetes mellitus, type 2 Hearing deficit no hearing aids Secondary hyperparathyroidism of renal origin First degree AV block Surgical History History of esophagogastroduodenoscopy (EGD) multiple---last 08/01/2022 @ [facility] 04/06/22 at [facility] with Dr. Mich Pacheco- EGD- Gastric antral vascular ectasia with bleeding, treated with argon plasma coagulation (APC); Few angioectasias in the duodenum, treated with APC S/P pericardiocentesis 08/2021, [facility], w/dr moura Hx of cardiac catheterization 08/2021, [facility] w/Dr. Moura for increased cardiac pressures; no stents History of tooth extraction History of colonoscopy H/O varicose vein ligation S/P trigger finger release S/P knee replacement RT/LEFT History of bladder suspension procedure X 2 S/P carpal tunnel release RT/LEFT History of back surgery (04/2010) X 2 S/P hysterectomy [place] Family History Father Alcohol abuse Heart disease Myocardial infarction Hypertension Sister Pancreatic cancer Diabetes Breast cancer Brother Diabetes Alcohol abuse Stroke Other Cancer No family history of adverse response to anesthesia Denies family history of Ovarian cancer Prostate cancer Colorectal cancer Social History Smoking Status: Never smoker Second Hand Exposure: No; Do You Dip or Chew Tobacco: No; Hx Alcohol Use: No Hx Substance Use: No Preferred Language: Citizen Of [place] Communication Ability: Effective Visual Impairment: No Limitations Hearing Ability: Normal Technical Publications Manager Required: No Beliefs That Will Affect Care: Gnosticist Gnosticist Beliefs: Islam marital status: Single Current Living Situation: Alone Current Living Situation Comment: 1 story home with ramp to enter home current occupational status: retired How many Children do You have: 2 Feels Safe at Home: Yes Childhood Exposure to Second-Hand Smoke: No Diet: regular Diet Comment: regular caffeine: Yes (Coffee x 2 cups per day.) during the past year weight has: remained stable Dental Care, Regularly: No Physical Activity Frequency: Does not Exercise Seatbelt Use: always Sunscreen Use: Yes Assistive Devices: Walker Allergies Allergies Allergy/AdvReac Type Severity Reaction Status Date / Time sulfamethoxazole AdvReac Unknown REMOTE Verified 12/20/23 08:19 [From Bactrim] HX/PT NOT SURE REACTION trimethoprim [From Bactrim] AdvReac Unknown REMOTE Verified 12/20/23 08:19 HX/PT NOT SURE REACTION Home Meds Home Medications Medication Instructions Recorded Confirmed cholecalciferol (vitamin D3) 25 2,000 unit PO QAM 05/29/18 01/30/24 mcg (1,000 unit) capsule (Vitamin D3) cyanocobalamin (vitamin B-12) 1,000 mcg PO QAM 11/12/20 01/30/24 1,000 mcg tablet (Vitamin B-12) estradiol 0.01% (0.1 mg/gram) 1 applic vaginal 3XWK PRN ONLY 05/30/22 01/30/24 vaginal cream WHEN BURNING calcium 600 mg (as 1 tab PO DAILY 07/23/23 01/30/24 carbonate)-vitamin D3 10 mcg (400 unit) tablet (Calcium 600 + D(3)) omega-3 fatty acids 1,000 mg 1,000 mg PO DAILY 07/23/23 01/30/24 capsule dimethicone 1.3 % topical cream 1 applic topical DAILY PRN skin 08/25/23 01/30/24 (Cavilon Durable Barrier) irritation [id number]-zicajgbo-fduycro-folic 1 tab PO DAILY 10/30/23 01/30/24 acid 400 mcg-vit K1 20 mcg tablet levothyroxine 150 mcg tablet 150 mcg PO QAM 11/27/23 01/30/24 sevelamer carbonate 800 mg tablet 800 mg PO TIDWMEAL 11/27/23 01/30/24 atorvastatin 40 mg tablet 0 mg PO DAILY 01/30/24 01/30/24 bethanechol chloride 50 mg tablet 0 mg PO BID 01/30/24 01/30/24 famotidine 40 mg tablet 0 mg PO BID 01/30/24 01/30/24 furosemide 80 mg tablet 0 mg PO BID 01/30/24 01/30/24 pantoprazole 40 mg tablet,delayed 0 mg PO BID 01/30/24 01/30/24 release Previous Rx's Medication Instructions Recorded diaper,brief,adult,disposable #150 ea 12/07/21 (Fitted Briefs X-Large) triamcinolone acetonide 0.5 % 1 applic topical BID PRN skin 07/03/23 topical cream irritation #60 grams fluticasone propionate 50 1 spray intranasal DAILY #16 grams 08/16/23 mcg/actuation nasal spray,suspension (Flonase Allergy Relief) tramadol 50 mg tablet 50 mg PO BID PRN Pain #60 tabs 10/29/23 sertraline 50 mg tablet 50 mg PO DAILY #30 tabs 11/12/23 psyllium husk 3.4 gram/5.4 gram 1 tbsp PO DAILY #660 grams 12/05/23 oral powder (Metamucil) loperamide 2 mg capsule 2 mg PO Q6H PRN Diarrhea #0 caps 01/02/24 methocarbamol 500 mg tablet 500 mg PO TID PRN muscle spasm #90 01/25/24 tabs ropinirole 0.5 mg tablet 0.5 mg PO UD #90 tabs 01/25/24 clopidogrel 75 mg tablet (Plavix) 75 mg PO DAILY #90 tabs 01/29/24 nystatin 100,000 unit/gram topical 1 applic topical BID PRN 01/30/24 powder IRRITATION #60 grams vancomycin 125 mg capsule 125 mg PO UD #0 caps 02/03/24 Results & Data (ED) Vital Signs Vital Signs - 24 hr 02/06/24 17:17 02/06/24 17:17 02/06/24 17:17 Temperature 36.5 C 36.5 C Temperature Source Oral Oral Pulse Rate 83 Pulse Rate [Apical] 83 Pulse Rhythm Regular Pulse Rhythm [Apical] Regular Pulse Strength Normal Pulse Strength [Apical] Normal Respiratory Rate 20 20 Respiratory Effort / Characteristics Non-Labored Non-Labored Spontaneous Respiratory Depth Normal Normal Respiratory Pattern Regular Regular Blood Pressure 133/64 Blood Pressure [Left Arm] 133/74 Blood Pressure Mean 87 Blood Pressure Mean [Left Arm] 93 Blood Pressure Position Semi-fowlers Blood Pressure Position [Left Arm] Semi-fowlers Pulse Oximetry 98 95 98 Oxygen Delivery Method Room Air Room Air Room Air Sepsis Recent Fever Within 48 Hours No Sepsis New/Unexplained Change in Mental Status N/A Sepsis Action Taken by Nursing No Action Required 02/06/24 17:43 02/06/24 19:17 Temperature Temperature Source Pulse Rate 83 77 Pulse Rate [Apical] Pulse Rhythm Regular Pulse Rhythm [Apical] Pulse Strength Pulse Strength [Apical] Respiratory Rate 20 Respiratory Effort / Characteristics Respiratory Depth Respiratory Pattern Blood Pressure Blood Pressure [Left Arm] Blood Pressure Mean Blood Pressure Mean [Left Arm] Blood Pressure Position Blood Pressure Position [Left Arm] Pulse Oximetry 98 Oxygen Delivery Method Room Air Sepsis Recent Fever Within 48 Hours Sepsis New/Unexplained Change in Mental Status Sepsis Action Taken by Detention Medications Current Medication List: was personally reviewed by me Laboratory Data Attestation: I reviewed the patient's lab results. 02/06/24 17:37 02/06/24 18:25 Lab Results 02/06/24 02/06/24 Range/Units 17:37 18:25 WBC 7.70 (4.8-10.8) K/ul RBC 3.07 L (4.20-5.40) M/uL Hgb 9.0 L (12.0-16.0) g/dl Hct 28.1 L (37.0-47.0) % MCV 91.5 (80.0-100.0) fL MCH 29.3 (25.0-34.0) pg MCHC 32.0 (32.0-36.0) g/dL RDW Std Deviation 68.2 H (36.4-46.3) fL RDW Coeff of Irasema 20.1 H (11.5-14.5) % Plt Count 215 (130-400) K/uL MPV 10.4 (9.4-12.4) fL Immature Gran % (Auto) 0.4 % Neut % (Auto) 83.5 % Lymph % (Auto) 6.1 % Calloway % (Auto) 8.8 % Eos % (Auto) 0.6 % Baso % (Auto) 0.6 % Neut # (Auto) 6.42 (1.40-6.50) K/uL Lymph # (Auto) 0.47 L (1.20-3.40) K/uL Calloway # (Auto) 0.68 H (0.11-0.59) K/uL Eos # (Auto) 0.05 (0.00-0.50) K/uL Baso # (Auto) 0.05 (0.00-0.20) K/uL Immature Gran # (Auto) 0.03 (0.01-0.20) K/uL Poikilocytosis Present Anisocytosis Present Ovalocytes 2+ PT Cancelled 12.0 INR Cancelled 1.1 APTT Cancelled 30 PTT Ratio Cancelled 1.1 Sodium 139 (136-145) mmol/L Potassium TNP 3.7 Chloride 101 (98-107) mmol/L Carbon Dioxide 29 (21-32) mmol/L Anion Gap 9 (3-11) BUN 37 H (6-23) mg/dl Creatinine 3.41 H (0.6-1.2) mg/dl Est Cr Clr Drug Dosing 9.0 ml/min eGFR 12.67 BUN/Creatinine Ratio 10.9 (10-20) Glucose 132 H (70-99(Fasting)) mg/dl Calcium 8.0 L (8.6-10.3) mg/dl Magnesium 2.1 (1.7-2.4) mg/dl Total Bilirubin 0.6 (0.2-1.0) mg/dl AST TNP 28 ALT 18 (7-52) U/L Alkaline Phosphatase 341 H (34-104) U/L Total Creatine Kinase 37 (26-192) U/L Troponin I High Sens 78.3 H* (0-14) pg/ml Total Protein 5.8 L (6.0-8.3) gm/dl Albumin 2.7 L (3.4-5.0) gm/dl Globulin 3.1 (2.5-4.0) gm/dl Albumin/Globulin Ratio 0.9 (0.9-2) TSH 3.133 (0.300-4.500) uIu/ml Imaging Data Attestation: I personally reviewed and interpreted this imaging study as follows: My Impression: 1 view chest x-ray was obtained in the emergency department. My interpretation is no free air or definite infiltrate, final report below. Radiologist's Impression: Chest X-Ray 02/06/24 17:19 EXAM: Radiograph of the Chest 1 View INDICATION: Chest pain. TECHNIQUE: Frontal view of the chest. COMPARISON: 01/30/2024 FINDINGS: Lungs and pleural spaces: Considerable basilar airspace consolidation and small left greater than right pleural effusions grossly unchanged. Stable vascular congestion. No pneumothorax. Heart: Shape and configuration within normal limits allowing for technique. Mediastinum: Normal contour. Bones/joints: Degenerative changes noted throughout the spine and both shoulders. No lytic or blastic lesions noted. Visualized portion of thoracolumbar posterior fusion hardware grossly intact. Soft tissues: No abnormality noted. No radiopaque foreign body noted. Tubes, lines and devices: Right internal jugular central venous catheter tip in the distal superior vena cava. Upper abdomen: No abnormality noted. IMPRESSION: Stable CHF with basilar infiltrates which could reflect pneumonia, consequence of mucous plugging or compression from pleural effusion. ACT 112: Negative or not required by law. Electronically signed by Anca Marc 02-06-2024 5:52 PM Discharge Plan Visit Data Chief Complaint: Weakness Stated Complaint: PLACEMENT REQUEST ED Provider: Andres Coyle Discharge Problem: Weakness generalized, Elevated troponin I level Patient Disposition: Being Evaluated by Hospitalist Forms Stand Alone Forms: My [facility] Prescriptions Prescriptions: No Action (DME) Fitted Briefs X-Large Misc See Rx Instructions .Route Qty: 150 5RF Rx Instructions: using 4-5 per day R19.7 triamcinolone acetonide 0.5 % cream 1 applic topical BID PRN (Reason: skin irritation) Qty: 60 1RF tramadol 50 mg tablet 50 mg PO BID PRN (Reason: Pain) Qty: 60 0RF sertraline 50 mg tablet 50 mg PO DAILY Qty: 30 2RF methocarbamol 500 mg tablet 500 mg PO TID PRN (Reason: muscle spasm) Qty: 90 1RF ropinirole 0.5 mg tablet 0.5 mg PO UD Qty: 90 1RF Rx Instructions: Take 0.5mg by mouth in the morning; then take 1.5mg by mouth at bedtime clopidogrel [Plavix] 75 mg tablet 75 mg PO DAILY Qty: 90 1RF fluticasone propionate [Flonase Allergy Relief] 50 mcg/actuation spray,suspension 1 spray intranasal DAILY Qty: 16 2RF Rx Instructions: Unable to verify OTC meds at this date/time. nystatin 100,000 unit/gram powder 1 applic TOPICAL BID PRN (Reason: IRRITATION) Qty: 60 0RF cholecalciferol (vitamin D3) [Vitamin D3] 1,000 unit Capsule 2,000 unit PO QAM Rx Instructions: Unable to verify OTC meds at this date/time. estradiol 0.01 % (0.1 mg/gram) cream 1 applic VAGINAL 3XWK PRN (Reason: ONLY WHEN BURNING) cyanocobalamin (vitamin B-12) [Vitamin B-12] 1,000 mcg tablet 1,000 mcg PO QAM Rx Instructions: Unable to verify OTC meds at this date/time. Cavilon Durable Barrier 1.3 % cream 1 applic topical DAILY PRN (Reason: skin irritation) Rx Instructions: as needed for skin protection mv,Ca,min-folic acid-vit K1 400-20 mcg Tablet 1 tab PO DAILY Rx Instructions: Unable to verify OTC meds at this date/time. loperamide 2 mg Capsule 2 mg PO Q6H PRN (Reason: Diarrhea) Qty: 0 0RF Rx Instructions: Unable to verify OTC meds at this date/time. Administer after each loose stool until symptoms controlled; do not exceed 8 mg per 24 hrs calcium carbonate-vitamin D3 [Calcium 600 + D(3)] 600 mg-10 mcg (400 unit) Tablet 1 tab PO DAILY Rx Instructions: Unable to verify OTC meds at this date/time. omega-3 fatty acids 1,000 mg Capsule 1,000 mg PO DAILY Rx Instructions: Unable to verify OTC meds at this date/time. levothyroxine 150 mcg tablet 150 mcg PO QAM sevelamer carbonate 800 mg tablet 800 mg PO TIDWMEAL Metamucil 3.4 gram/5.4 gram powder 1 tbsp PO DAILY Qty: 660 0RF Rx Instructions: Unable to verify OTC meds at this date/time. Mix into at least 8 oz of water or juice before administering. atorvastatin 40 mg tablet 0 mg PO DAILY Rx Instructions: Last filled 12/18/23 x30 day supply. Original Directions: 40mg by mouth daily famotidine 40 mg tablet 0 mg PO BID Rx Instructions: Last filled 11/18/23 x30 day supply. Original Directions: 40mg by mouth twice daily furosemide 80 mg tablet 0 mg PO BID Rx Instructions: Last filled 08/2023 x90 day supply. Original Directions: 80mg by mouth twice daily pantoprazole 40 mg tablet,delayed release (DR/EC) 0 mg PO BID Rx Instructions: Last filled 11/16/23 x30 day supply. Original Directions: 40mg by mouth twice daily bethanechol chloride 50 mg tablet 0 mg PO BID Rx Instructions: Last filled 09/2023 x90 day supply. Original Directions: 50mg by mouth twice daily vancomycin 125 mg Capsule 125 mg PO UD Qty: 0 0RF Rx Instructions: Unable to verify med at this date/time. Original Directions: Take 125mg qid x 10 days; 125mg bid x 7 days; 124mg daily x 7 days; then 125mg q 2-3 days for 2-8 weeks. Referrals Referrals: Agatha Alfaro DO [Primary Care Provider] -
[2024-02-06 17:49] LABS: Basophils # (auto) 0.05 K/uL (0.00-0.20); Basophils % (auto) 0.6 %; Eosinophils # (auto) 0.05 K/uL (0.00-0.50); Eosinophils % (auto) 0.6 %; Hematocrit (blood only) 28.1 % (37.0-47.0); Immature Granulocytes # (auto) 0.03 K/uL (0.01-0.20); Immature Granulocytes % (auto) 0.4 %; Lymphocytes # (auto) 0.47 K/uL (1.20-3.40); Lymphocytes % (auto) 6.1 %; Mean Corpuscular Hemoglobin 29.3 pg (25.0-34.0); Mean Corpuscular Volume 91.5 fL (80.0-100.0); Mean Platelet Volume 10.4 fL (9.4-12.4); Monocytes # (auto) 0.68 K/uL (0.11-0.59); Monocytes % (auto) 8.8 %; Neutrophils # (auto) 6.42 K/uL (1.40-6.50); Neutrophils % (auto) 83.5 %; Platelet Count 215 K/uL (130-400); RDW Coefficient of Variation 20.1 % (11.5-14.5); RDW Standard Deviation 68.2 fL (36.4-46.3); Red Blood Count 3.07 M/uL (4.20-5.40)
--- NOTE | 2024-02-06 17:52 | XRay Report ---
EXAM: Radiograph of the Chest 1 View INDICATION: Chest pain. TECHNIQUE: Frontal view of the chest. COMPARISON: 01/30/2024 FINDINGS: Lungs and pleural spaces: Considerable basilar airspace consolidation and small left greater than right pleural effusions grossly unchanged. Stable vascular congestion. No pneumothorax. Heart: Shape and configuration within normal limits allowing for technique. Mediastinum: Normal contour. Bones/joints: Degenerative changes noted throughout the spine and both shoulders. No lytic or blastic lesions noted. Visualized portion of thoracolumbar posterior fusion hardware grossly intact. Soft tissues: No abnormality noted. No radiopaque foreign body noted. Tubes, lines and devices: Right internal jugular central venous catheter tip in the distal superior vena cava. Upper abdomen: No abnormality noted. IMPRESSION: Stable CHF with basilar infiltrates which could reflect pneumonia, consequence of mucous plugging or compression from pleural effusion. ACT 112: Negative or not required by law. Electronically signed by Anca Marc 02-06-2024 5:52 PM
[2024-02-06 18:12] LABS: Alanine Aminotransferase 18 U/L (7-52); Albumin Globulin Ratio 0.9 (0.9-2); Albumin Level 2.7 gm/dl (3.4-5.0); Alkaline Phosphatase 341 U/L (34-104); Anion Gap 9 (3-11); BUN Creatinine Ratio 10.9 (10-20); Bilirubin,Total 0.6 mg/dl (0.2-1.0); Blood Urea Nitrogen 37 mg/dl (6-23); Carbon Dioxide 29 mmol/L (21-32); Chloride 101 mmol/L (98-107); Creatine Kinase 37 U/L (26-192); Globulin 3.1 gm/dl (2.5-4.0); Glucose 132 mg/dl (70-99(Fasting)); Magnesium 2.1 mg/dl (1.7-2.4); Sodium 139 mmol/L (136-145); Total Protein 5.8 gm/dl (6.0-8.3)
[2024-02-06 18:13] LABS: Anisocytosis Present; Ovalocytes 2+; Poikilocytosis Present
[2024-02-06 18:19] LABS: Troponin I High Sensitivity 78.3 pg/ml (0-14)
[2024-02-06 18:24] LABS: Thyroid Stimulating Hormone 3.133 uIu/ml (0.300-4.500)
[2024-02-06 18:52] LABS: Potassium 3.7 mmol/L (3.5-5.1)
[2024-02-06 19:07] LABS: INR 1.1 (0.9-1.1); Partial Thromboplastin Ratio 1.1; Partial Thromboplastin Time 30 Seconds (21-31)
--- NOTE | 2024-02-06 19:55 | History & Physical Report ---
Date of Service February 06, 2024 Assessment & Plan (1) Frailty syndrome in geriatric patient: (2) (HFpEF) heart failure with preserved ejection fraction: (3) Weakness generalized: (4) Hypothyroidism: (5) Severe aortic stenosis: (6) Elevated troponin I level: (7) ESRD on hemodialysis: (8) Pressure ulcer: (9) Ambulatory dysfunction: (10) Bilateral edema of lower extremity: (11) Clostridioides difficile carrier: (12) GAVE (gastric antral vascular ectasia): (13) Diabetes mellitus type 2 with complications: Plan 83 yo female PMHx HFpEF, severe aortic stenosis, mitral stenosis, ESRD on dialysis TTS, CVA, T2DM, GAVE is admitted for ongoing and increasing weakness/fr ailty. #Frailty/Generalized Weakness Pt discharged home 02/04/24 with home health Increasing weakness and failure to thrive Likely will need placement after this visit PT/OT #ESRD on HD TTS Last HD was 02/05/24 Appears volume overloaded at this time w/ LE edema Consult to nephrology for HD management #HFpEF/Aortic Stenosis Appears volume overloaded at this time Fluid management primarily via dialysis Continue Lasix 80mg BID as pt is making urine Pt has a chronic troponin leak #Pressure Ulcer Chronic sacral pressure ulcer Follows with wound care outpatient Wound care consult placed #C diff carrier If treated for infection will need PO Vancomycin prophylaxis and for 7 days after treatment #GAVE Hx of 60+ blood transfusions Continue famotidine and Protonix BID #T2DM Not currently on medical management #Hypothyroidism Continue home levothyroxine FENGI: Renal dialysis Code status: DNR/DNI DVT prophylaxis: avoid chemical 2/2 GAVE, SCDs Isolation: none Disposition: med/surg History of Present Illness Primary Care Provider: Agatha Alfaro, DO 83 yo female PMHx HFpEF, severe aortic stenosis, mitral stenosis, ESRD on dialysis TTS, CVA, T2DM, GAVE is admitted for ongoing and increasing weakness/frailty. She was previously discharged 02/04/24 to home after a hospital stay for CHF exacerbation. At that time PT/OT recommended rehab but patient was discharged to home with home health. Today home health visited patient and observed that she was weak and unable to adequately care for herself and EMS was called. Patient reports that she is having difficulty ambulating at this time and that her legs feel heavy. She did have dialysis yesterday. Patient denies CP, SOB, abdominal pain, nausea, vomiting, changes in bowel or bladder habits. Allergies Allergy/AdvReac Type Severity Reaction Status Date / Time sulfamethoxazole AdvReac Unknown REMOTE Verified 12/20/23 08:19 [From Bactrim] HX/PT NOT SURE REACTION trimethoprim [From Bactrim] AdvReac Unknown REMOTE Verified 12/20/23 08:19 HX/PT NOT SURE REACTION Home Medications Medication Instructions Recorded Confirmed Type cholecalciferol (vitamin D3) 25 2,000 unit PO QAM 05/29/18 01/30/24 History mcg (1,000 unit) capsule (Vitamin D3) cyanocobalamin (vitamin B-12) 1,000 mcg PO QAM 11/12/20 01/30/24 History 1,000 mcg tablet (Vitamin B-12) diaper,brief,adult,disposable #150 ea 12/07/21 01/30/24 Rx (Fitted Briefs X-Large) estradiol 0.01% (0.1 mg/gram) 1 applic vaginal 3XWK PRN ONLY 05/30/22 01/30/24 History vaginal cream WHEN BURNING triamcinolone acetonide 0.5 % 1 applic topical BID PRN skin 07/03/23 01/30/24 Rx topical cream irritation #60 grams calcium 600 mg (as 1 tab PO DAILY 07/23/23 01/30/24 History carbonate)-vitamin D3 10 mcg (400 unit) tablet (Calcium 600 + D(3)) omega-3 fatty acids 1,000 mg 1,000 mg PO DAILY 07/23/23 01/30/24 History capsule fluticasone propionate 50 1 spray intranasal DAILY #16 grams 08/16/23 01/30/24 Rx mcg/actuation nasal spray,suspension (Flonase Allergy Relief) dimethicone 1.3 % topical cream 1 applic topical DAILY PRN skin 08/25/23 01/30/24 History (Cavilon Durable Barrier) irritation tramadol 50 mg tablet 50 mg PO BID PRN Pain #60 tabs 10/29/23 01/30/24 Rx anrnwllbhrql-pfipfsol-qjetuxs-folic 1 tab PO DAILY 10/30/23 01/30/24 History acid 400 mcg-vit K1 20 mcg tablet sertraline 50 mg tablet 50 mg PO DAILY #30 tabs 11/12/23 01/30/24 Rx levothyroxine 150 mcg tablet 150 mcg PO QAM 11/27/23 01/30/24 History sevelamer carbonate 800 mg tablet 800 mg PO TIDWMEAL 11/27/23 01/30/24 History psyllium husk 3.4 gram/5.4 gram 1 tbsp PO DAILY #660 grams 12/05/23 01/30/24 Rx oral powder (Metamucil) loperamide 2 mg capsule 2 mg PO Q6H PRN Diarrhea #0 caps 01/02/24 01/30/24 Rx methocarbamol 500 mg tablet 500 mg PO TID PRN muscle spasm #90 01/25/24 01/30/24 Rx tabs ropinirole 0.5 mg tablet 0.5 mg PO UD #90 tabs 01/25/24 01/30/24 Rx clopidogrel 75 mg tablet (Plavix) 75 mg PO DAILY #90 tabs 01/29/24 01/30/24 Rx atorvastatin 40 mg tablet 0 mg PO DAILY 01/30/24 01/30/24 History bethanechol chloride 50 mg tablet 0 mg PO BID 01/30/24 01/30/24 History famotidine 40 mg tablet 0 mg PO BID 01/30/24 01/30/24 History furosemide 80 mg tablet 0 mg PO BID 01/30/24 01/30/24 History nystatin 100,000 unit/gram topical 1 applic topical BID PRN 01/30/24 01/30/24 Rx powder IRRITATION #60 grams pantoprazole 40 mg tablet,delayed 0 mg PO BID 01/30/24 01/30/24 History release vancomycin 125 mg capsule 125 mg PO UD #0 caps 02/03/24 01/30/24 Rx Past Med/Surg History Problem List (Updated 02/06/24 @ 20:25 by Kareem Terrell DO) Elevated troponin I level (Acute) Weakness generalized (Acute) Complication associated with dialysis catheter (Acute) Severe aortic stenosis History of CVA (cerebrovascular accident) (11/2023) R cerebellar stroke Hypertension Hypothyroidism Abnormal chest xray Valvular heart disease Acute on chronic heart failure with preserved ejection fraction Frailty syndrome in geriatric patient ESRD on hemodialysis Pressure ulcer Generalized weakness (Acute) Ambulatory dysfunction (Acute) Pleural effusion Anemia (Acute) Bilateral edema of lower extremity (Acute) Ascites Aortic stenosis 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 Pancytopenia 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 aguirre Osteoarthritis Hyperlipidemia History of CVA (cerebrovascular accident) (2019) ~5years ago, woke up with weakness in her rt hand; L lacunar infarct; previously on plavix>no residual effects Hiatal hernia GERD without esophagitis Fatty liver Essential tremor MINOR IN HAND Diabetic retinopathy Chronic hyponatremia Chronic diastolic heart failure CAD (coronary artery disease) Anxiety Anemia of chronic disease GAVE (gastric antral vascular ectasia) (Acute) Medical History Cerebellar stroke Coronavirus infection, unspecified Acute UTI (urinary tract infection) Pneumonia Fall Facial droop Right sided weakness Sacral wound Physical deconditioning Generalized weakness Sepsis Pleural effusion, bilateral Pericardial effusion Non-ST elevation SD (NSTEMI) Pancytopenia Hemorrhoids History of GI bleed hx 08/2021, given transfusion-per medical record REASON FOR UPCOMING PROCEDURE Hx of atrial fibrillation, no current medication per medical report History of renal dialysis [facility] FROM [facility]) ACCESS SITE RIGHT SIDE OF CHEST/ ? DETAILS Diabetes mellitus, type 2 Hearing deficit no hearing aids Secondary hyperparathyroidism of renal origin First degree AV block Surgical History History of esophagogastroduodenoscopy (EGD) multiple---last 08/01/2022 @ [facility] 04/06/22 at [facility] with Dr. Mich Pacheco- EGD- Gastric antral vascular ectasia with bleeding, treated with argon plasma coagulation (APC); Few angioectasias in the duodenum, treated with APC S/P pericardiocentesis 08/2021, [facility], w/dr moura Hx of cardiac catheterization 08/2021, [facility] w/Dr. Moura for increased cardiac pressures; no stents History of tooth extraction History of colonoscopy H/O varicose vein ligation S/P trigger finger release S/P knee replacement RT/LEFT History of bladder suspension procedure X 2 S/P carpal tunnel release RT/LEFT History of back surgery (04/2010) X 2 S/P hysterectomy [place] Family History Father Alcohol abuse Heart disease Myocardial infarction Hypertension Sister Pancreatic cancer Diabetes Breast cancer Brother Diabetes Alcohol abuse Stroke Other Cancer No family history of adverse response to anesthesia Denies family history of Ovarian cancer Prostate cancer Colorectal cancer Social History Smoking Status: Never smoker Second Hand Exposure: No; Do You Dip or Chew Tobacco: No; Hx Alcohol Use: No Hx Substance Use: No Preferred Language: Tanzanian Communication Ability: Effective Visual Impairment: No Limitations Hearing Ability: Normal 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 Beliefs That Will Affect Care: None marital status: Single Current Living Situation: Alone Current Living Situation Comment: Home health helps with patient care current occupational status: retired How many Children do You have: 2 Feels Safe at Home: Yes Safety Concerns: Feels Safe At This Time Childhood Exposure to Second-Hand Smoke: No Diet: regular Diet Comment: regular caffeine: Yes (Coffee x 2 cups per day.) during the past year weight has: remained stable Dental Care, Regularly: No Physical Activity Frequency: Does not Exercise Seatbelt Use: always Sunscreen Use: Yes Assistive Devices: Denture - Upper, Denture - Lower, Glasses and Walker Review of Systems Review of Systems: reviewed, per HPI Physical Exam Physical Exam: Constitutional: chronically ill-appearing, no acute distress HEENT: NCAT, no conjunctival injection CV: regular rhythm, severe systolic murmur, extremities well-perfused, 2+ pitting edema of b/l LE Resp: diminished breath sounds in b/l bases, no increased work of breathing GI: soft, nondistended, nontender, BS normoactive MSK: no gross deformities appreciated Skin: warm, dry Neuro: alert, oriented Results & Data Results & Data Vital Signs (Past 12 Hours) Vital Signs Temp Pulse Pulse Resp BP BP Pulse Ox 02/06/24 19:30 80 22 106/57 L 99 02/06/24 19:17 77 02/06/24 17:43 83 20 98 02/06/24 17:17 36.5 C 83 20 133/74 98 02/06/24 17:17 95 02/06/24 17:17 36.5 C 83 20 133/64 98 O2 Del Method 02/06/24 19:30 Room Air 02/06/24 19:17 02/06/24 17:43 Room Air 02/06/24 17:17 Room Air 02/06/24 17:17 Room Air 02/06/24 17:17 Room Air Code Status & VTE Plan VTE Prophylaxis Plan VTE Prophylaxis will be ordered: Yes Supervising Physician Co-Signing Physician Notes Attending addendum: I have physically seen this patient, have supervised the medical residents activities, and agree with the H&P unless as otherwise noted. Assessment and Plan: Generalized weakness/failure to thrive- Patient most recently admitted from 01/29-02/03/2024 Family having difficulty taking care of patient at home Assess for possible infection via urinalysis and urine culture Consult PT/OT, as will likely need inpatient rehab following this admission ESRD on HD- Last HD was on 02/05/2024 Chest x-ray with mild CHF exacerbation Consult nephrology to determine next hemodialysis date Typical days are Sunday, and Sunday, therefore likelihood needs di alysis on 02/06 HFpEF/aortic stenosis- As above, will likely benefit from dialysis on 02/06, her next due date Continue furosemide 80 mg p.o. twice daily Chronic sacral pressure ulcer Wound care as outpatient Consult wound care while inpatient C. difficile carrier state- Placed on vancomycin p.o. if urinalysis comes back abnormal Resident Activity Tracking Resident Involvement: Resident Care Provided Care Provided: Adult Hospital Medicine (2) (HFpEF) heart failure with preserved ejection fraction Heart failure chronicity: chronic Qualified Code(s): I50.32 - Chronic diastolic (congestive) heart failure (4) Hypothyroidism Hypothyroidism type: unspecified Qualified Code(s): E03.9 - Hypothyroidism, unspecified (8) Pressure ulcer Pressure injury location: sacral region Pressure injury stage: unstageable Qualified Code(s): L89.150 - Pressure ulcer of sacral region, unstageable
[2024-02-06 19:57] LABS: Troponin I High Sensitivity 82.4 pg/ml (0-14)
[2024-02-06 22:29] LABS: Appearance Urine Turbid (Clear); Bilirubin Urine Negative (Negative); Blood Urine 2+ (Negative); Color Urine Yellow; Glucose Urine UA Negative (Negative); Ketones Urine 1+ (Negative); Leukocyte Esterase Urine 3+ (Negative); Nitrite Urine Negative (Negative); Protein Urine 3+ (Negative); Specific Gravity Urine 1.025 (1.000-1.030); Urobilinogen Urine Negative (Negative)
[2024-02-06 22:36] LABS: Bacteria Urine 4+ (None Seen); Epithelial Cell Urine 0-2 /hpf (0-2); WBC Urine >50 /hpf (0-5)
[2024-02-06] MEDS ORDERED: POLYETHYLENE (MIRALAX) 17 GM PACK PO PRN (23:05)
[2024-02-06] MEDS ORDERED: ALUMINUM/MAGNESIUM SUSP 30 ML UDC PO PRN (23:05)
[2024-02-06] MEDS ORDERED: MELATONIN 3 MG TAB PO PRN (23:05)
[2024-02-06] MEDS ORDERED: MAGNESIUM HYDROXIDE SUSP 30 ML UDC PO PRN (23:05)
[2024-02-06] MEDS ORDERED: TRIAMCINOLONE ACET 0.5% CR 15 GM TUBE TOP PRN (23:05)
[2024-02-06] MEDS ORDERED: ACETAMINOPHEN 325 MG TAB PO PRN (23:05)
[2024-02-06] MEDS ORDERED: DIMETHICONE TOP PRN (23:05)
[2024-02-06] MEDS ORDERED: LOPERAMIDE HCL 2 MG CAP PO PRN (23:05)
[2024-02-07] MEDS: FAMOTIDINE 20 MG TAB PO SCH (00:18)
[2024-02-07] MEDS: BETHANECHOL CHL 25 MG TAB PO SCH (00:18)
[2024-02-07] MEDS: FUROSEMIDE 80 MG TAB PO SCH (00:19)
[2024-02-07] MEDS: rOPINIRole HCL 1 MG TABLET PO SCH (00:20)
[2024-02-07] MEDS: SEVELAMER CARBONATE 800 MG TAB PO SCH (00:22)
[2024-02-07] MEDS: PANTOprazole 40 MG TAB PO SCH (00:22)
--- NOTE | 2024-02-07 02:38 | Communication Note ---
Date of Service: February 07, 2024 UA + for blood, LE, bacteria. Makes limited urine as has ESRD on HD. Questionable symptoms per pt, admission for increased weakness. Prior urine cultures have grown E Coli, which have been susceptible to ceftriaxone, plan to start ceftriaxone.
[2024-02-07] MEDS: cefTRIAXone SODIUM 1,000 MG/50 ML BAG IV SCH (03:06)
--- NOTE | 2024-02-07 03:57 | Billing Data ---
Date of Service February 07, 2024 Coding Level of Care Code 24698 INT INP/OBS CARE
[2024-02-07] MEDS: LEVOTHYROXINE SODIUM 150 MCG TABLET PO SCH (05:40)
[2024-02-07] MEDS: VANCOMYCIN HCL 125 MG/2.5ML SOLN PO SCH (08:19)
[2024-02-07] MEDS: CHERRY SYRUP 5 ML UDP PO SCH (08:19)
[2024-02-07] MEDS: ATORVASTATIN 40 MG TAB PO SCH (08:19)
[2024-02-07] MEDS: CLOPIDOGREL BISULFATE 75 MG TAB PO SCH (08:19)
[2024-02-07] MEDS: rOPINIRole HCL 0.25 MG TABLET PO SCH (08:20)
[2024-02-07] MEDS: CYANOCOBALAMIN (B-12) 500 MCG TABLET PO SCH (08:20)
[2024-02-07] MEDS: SERTRALINE HCL 50 MG TABLET PO SCH (08:20)
[2024-02-07] MEDS: FLUTICASONE PROPIONATE NA SPR 16 GM BTL SCH (08:21)
[2024-02-07] MEDS ORDERED: IRON SUCROSE 100 MG in SYRINGE 0 ML IV ONE (09:54)
--- NOTE | 2024-02-07 12:19 | Nephrology Consultation ---
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 Outpatient HD: [facility] TTS, 3hr, 3K 2.5Ca F-180NR, EDW 58 kg. Heparin free HD. Sully has evidence of volume overload. She struggles with aggressive UF with HD. Dialysis was coordinated this AM. I also discussed the patient's recent history with nursing staff from [facility] TDC functioning well. Maintain 1.2 L daily fluid restriction. Sevelamer QAC. Medications are appropriately dosed for IHD. (2) Anemia: Maintained on Micera as outpatient (not recently provided). Hgb stable. Venofer provided with HD today. Tsat has been below goal. (3) GAVE (gastric antral vascular ectasia): Heparin free HD. Sully denies melena or hematochezia. H/H stable. (4) Atrial fibrillation, permanent: (5) Aortic stenosis: (6) Frailty syndrome in geriatric patient: Multiple recent hospitalizations. Complex medical history. Concerning progressive frailty. Goals of care discussions are ongoing. History of Present Illness Attending Physician: Rylee Stanford MD History of Present Illness Sully Ray is an 83 year-old female with ESKD attributed to to CRS. She has been on HD since 08/23 and currently dialyzes TTS at [facility] under the care of Dr. Will (3hr, 180 optiflux, Qb 400/Qd 800, 3K 2.5Ca, EDW 60.5 kg). Sully dialyzes via a [facility] TDC. She completed treatment Sunday with net UF 1 L (pre tx 59 kg and post 58 kg). EDW was reduced to 58 kg following treatment. Dry weight is frequently being reduced to account for progressive weight loss. Prior EDW was 60.5 kg. However, Sully has rarely been at outpatient dialysis due to frequent hospitalizations. Medical history is significant for severe , mitral stenosis, R heart failure, permanent atrial fibrillation (not on anticoagulation due to GI bleeds), GAVE w/ recurrent UGI bleed requiring frequent blood transfusion, CVA, AODM, hypothyroidism. Sully presented to [place] ER yesterday with progressive weakness and inability to walk. Sully has had multiple recent hospitalizations and progressive frailty + debility. She has known sacral breakdown. She lives at home with assistance from home health services and her daughter. She acknowledges progressive weakness and frailty but has been determined to maintain her independence and continue to live at home with her cat. She often makes comments about stopping treatments but states that she is resolved to continue so she can spend time with her cat and with her family. She states "I don't know what they would do without me." She has remained adamant that she would not consider SNF placement. Sully had evidence of hypervolemia on admission and HD was coordinated this morning. Allergies Allergy/AdvReac Type Severity Reaction Status Date / Time sulfamethoxazole AdvReac Unknown REMOTE Verified 12/20/23 08:19 [From Bactrim] HX/PT NOT SURE REACTION trimethoprim [From Bactrim] AdvReac Unknown REMOTE Verified 12/20/23 08:19 HX/PT NOT SURE REACTION Home Medications Medication Instructions Recorded Confirmed Type cholecalciferol (vitamin D3) 25 2,000 unit PO QAM 05/29/18 01/30/24 History mcg (1,000 unit) capsule (Vitamin D3) cyanocobalamin (vitamin B-12) 1,000 mcg PO QAM 11/12/20 01/30/24 History 1,000 mcg tablet (Vitamin B-12) diaper,brief,adult,disposable #150 ea 12/07/21 01/30/24 Rx (Fitted Briefs X-Large) estradiol 0.01% (0.1 mg/gram) 1 applic vaginal 3XWK PRN ONLY 05/30/22 01/30/24 History vaginal cream WHEN BURNING triamcinolone acetonide 0.5 % 1 applic topical BID PRN skin 07/03/23 01/30/24 Rx topical cream irritation #60 grams calcium 600 mg (as 1 tab PO DAILY 07/23/23 01/30/24 History carbonate)-vitamin D3 10 mcg (400 unit) tablet (Calcium 600 + D(3)) omega-3 fatty acids 1,000 mg 1,000 mg PO DAILY 07/23/23 01/30/24 History capsule fluticasone propionate 50 1 spray intranasal DAILY #16 grams 08/16/23 01/30/24 Rx mcg/actuation nasal spray,suspension (Flonase Allergy Relief) dimethicone 1.3 % topical cream 1 applic topical DAILY PRN skin 08/25/23 01/30/24 History (Cavilon Durable Barrier) irritation tramadol 50 mg tablet 50 mg PO BID PRN Pain #60 tabs 10/29/23 01/30/24 Rx iqveicwkeykd-kcsvvnio-rgazalc-folic 1 tab PO DAILY 10/30/23 01/30/24 History acid 400 mcg-vit K1 20 mcg tablet sertraline 50 mg tablet 50 mg PO DAILY #30 tabs 11/12/23 01/30/24 Rx levothyroxine 150 mcg tablet 150 mcg PO QAM 11/27/23 01/30/24 History sevelamer carbonate 800 mg tablet 800 mg PO TIDWMEAL 11/27/23 01/30/24 History psyllium husk 3.4 gram/5.4 gram 1 tbsp PO DAILY #660 grams 12/05/23 01/30/24 Rx oral powder (Metamucil) loperamide 2 mg capsule 2 mg PO Q6H PRN Diarrhea #0 caps 01/02/24 01/30/24 Rx methocarbamol 500 mg tablet 500 mg PO TID PRN muscle spasm #90 01/25/24 01/30/24 Rx tabs ropinirole 0.5 mg tablet 0.5 mg PO UD #90 tabs 01/25/24 01/30/24 Rx clopidogrel 75 mg tablet (Plavix) 75 mg PO DAILY #90 tabs 01/29/24 01/30/24 Rx atorvastatin 40 mg tablet 0 mg PO DAILY 01/30/24 01/30/24 History bethanechol chloride 50 mg tablet 0 mg PO BID 01/30/24 01/30/24 History famotidine 40 mg tablet 0 mg PO BID 01/30/24 01/30/24 History furosemide 80 mg tablet 0 mg PO BID 01/30/24 01/30/24 History nystatin 100,000 unit/gram topical 1 applic topical BID PRN 01/30/24 01/30/24 Rx powder IRRITATION #60 grams pantoprazole 40 mg tablet,delayed 0 mg PO BID 01/30/24 01/30/24 History release vancomycin 125 mg capsule 125 mg PO UD #0 caps 02/03/24 01/30/24 Rx Patient History Medical History Cerebellar stroke Coronavirus infection, unspecified Acute UTI (urinary tract infection) Pneumonia Fall Facial droop Right sided weakness Sacral wound Physical deconditioning Generalized weakness Sepsis Pleural effusion, bilateral Pericardial effusion Non-ST elevation VT (NSTEMI) Pancytopenia Hemorrhoids History of GI bleed hx 08/2021, given transfusion-per medical record REASON FOR UPCOMING PROCEDURE Hx of atrial fibrillation, no current medication per medical report History of renal dialysis TUES,THUR AND SAT ([facility] [place]CROSS FROM [facility]) ACCESS SITE RIGHT SIDE OF CHEST/ ? DETAILS Diabetes mellitus, type 2 Hearing deficit no hearing aids Secondary hyperparathyroidism of renal origin First degree AV block Surgical History History of esophagogastroduodenoscopy (EGD) multiple---last 08/01/2022 @ [facility] 04/06/22 at [facility] with Dr. Mich Pacheco- EGD- Gastric antral vascular ectasia with bleeding, treated with argon plasma coagulation (APC); Few angioectasias in the duodenum, treated with APC S/P pericardiocentesis 08/2021, [facility], w/dr moura Hx of cardiac catheterization 08/2021, [facility] w/Dr. Moura for increased cardiac pressures; no stents History of tooth extraction History of colonoscopy H/O varicose vein ligation S/P trigger finger release S/P knee replacement RT/LEFT History of bladder suspension procedure X 2 S/P carpal tunnel release RT/LEFT History of back surgery (04/2010) X 2 S/P hysterectomy [place] Family History Father Alcohol abuse Heart disease Myocardial infarction Hypertension Sister Pancreatic cancer Diabetes Breast cancer Brother Diabetes Alcohol abuse Stroke Other Cancer No family history of adverse response to anesthesia Denies family history of Ovarian cancer Prostate cancer Colorectal cancer Social History Smoking Status: Never smoker Second Hand Exposure: No; Do You Dip or Chew Tobacco: No; Hx Alcohol Use: No Hx Substance Use: No Preferred Language: Syriac Communication Ability: Effective Visual Impairment: No Limitations Hearing Ability: Normal Inward Toll Operator Required: No Beliefs That Will Affect Care: None marital status: Single Current Living Situation: Alone Current Living Situation Comment: Home health helps with patient care current occupational status: retired How many Children do You have: 2 Feels Safe at Home: Yes Safety Concerns: Feels Safe At This Time Childhood Exposure to Second-Hand Smoke: No Diet: regular Diet Comment: regular caffeine: Yes (Coffee x 2 cups per day.) during the past year weight has: remained stable Dental Care, Regularly: No Physical Activity Frequency: Does not Exercise Seatbelt Use: always Sunscreen Use: Yes Assistive Devices: Denture - Upper, Denture - Lower, Glasses and Walker Review of Systems Review of Systems: All systems reviewed & are unremarkable except as noted in HPI & below Physical Exam Constitutional: + thin and + frail appearing Eyes: PERRL, conjunctivae normal, anicteric sclerae + anicteric sclerae ENMT: external ear and nose normal, oropharynx normal Neck: normal visual inspection and trachea midline RIJ TDC Respiratory: no respiratory distress Auscultation: lungs clear to auscultation bilaterally Cardiovascular: Rate/Rhythm: regular rate and regular rhythm Heart Sounds: normal S1, normal S2 and + murmur Extremities: no edema Musculoskeletal: Extremities: no cyanosis and no clubbing Skin: no jaundice Neurologic: Motor/Sensory: no tremor and no asterixis Psychiatric: Orientation: alert and oriented x 3 Results & Data Vital Signs (Past 12 Hours) Vital Signs O2 Del Method 02/07/24 07:15 Room Air Laboratory Results Laboratory Results - last 24 hr 02/06/24 02/06/24 02/06/24 17:37 18:25 21:48 WBC 7.70 RBC 3.07 L Hgb 9.0 L Hct 28.1 L MCV 91.5 MCH 29.3 MCHC 32.0 RDW Std Deviation 68.2 H RDW Coeff of Irasema 20.1 H Plt Count 215 MPV 10.4 Immature Gran % (Auto) 0.4 Neut % (Auto) 83.5 Lymph % (Auto) 6.1 [place] % (Auto) 8.8 Eos % (Auto) 0.6 Baso % (Auto) 0.6 Neut # (Auto) 6.42 Lymph # (Auto) 0.47 L [place] # (Auto) 0.68 H Eos # (Auto) 0.05 Baso # (Auto) 0.05 Immature Gran # (Auto) 0.03 Poikilocytosis Present Anisocytosis Present Ovalocytes 2+ PT Cancelled 12.0 INR Cancelled 1.1 APTT Cancelled 30 PTT Ratio Cancelled 1.1 Sodium 139 Potassium TNP 3.7 Chloride 101 Carbon Dioxide 29 Anion Gap 9 BUN 37 H Creatinine 3.41 H Est Cr Clr Drug Dosing 9.0 eGFR 12.67 BUN/Creatinine Ratio 10.9 Glucose 132 H Calcium 8.0 L Magnesium 2.1 Total Bilirubin 0.6 AST TNP 28 ALT 18 Alkaline Phosphatase 341 H Total Creatine Kinase 37 Troponin I High Sens 78.3 H* 82.4 H* Total Protein 5.8 L Albumin 2.7 L Globulin 3.1 Albumin/Globulin Ratio 0.9 TSH 3.133 Urine Color Yellow Urine Appearance Turbid A Urine pH 5.0 Ur Specific [place] 1.025 Urine Protein 3+ H Urine Glucose (UA) Negative Urine Ketones 1+ H Urine Blood 2+ H Urine Nitrite Negative Urine Bilirubin Negative Urine Urobilinogen Negative Ur Leukocyte Esterase 3+ H Urine RBC 11-20 H Urine WBC >50 H Ur Epithelial Cells 0-2 Urine Bacteria 4+ H Diagnostic Findings CXR COMPARISON: 01/30/2024 FINDINGS: Lungs and pleural spaces: Considerable basilar airspace consolidation and small left greater than right pleural effusions grossly unchanged. Stable vascular congestion. No pneumothorax. Heart: Shape and configuration within normal limits allowing for technique. Mediastinum: Normal contour. Bones/joints: Degenerative changes noted throughout the spine and both shoulders. No lytic or blastic lesions noted. Visualized portion of thoracolumbar posterior fusion hardware grossly intact. Soft tissues: No abnormality noted. No radiopaque foreign body noted. Tubes, lines and devices: Right internal jugular central venous catheter tip in the distal superior vena cava. Upper abdomen: No abnormality noted. IMPRESSION: Stable CHF with basilar infiltrates which could reflect pneumonia, consequence of mucous plugging or compression from pleural effusion. PG Care Time/CCT Total # of Minutes Spent Total Time Spent with Patient: Total time spent is greater than 50% in coordination of care (as documented) at patient's floor/unit and/or counseling patient: Coding Level of Care Code 31393 IN/OBS CONSULT LVL 4,60M Diagnoses ESRD on hemodialysis N18.6; Z99.2 Anemia due to chronic kidney disease, on chronic dialysis N18.6; D63.1; Z99.2 Anemia type: due to chronic kidney disease Chronic kidney disease stage: on chronic dialysis GAVE (gastric antral vascular ectasia) K31.819 Atrial fibrillation, permanent I48.21 Aortic valve stenosis, etiology of cardiac valve disease unspecified I35.0 Cardiac valve disease etiology: etiology unspecified Frailty syndrome in geriatric patient R54 (2) Anemia Anemia type: due to chronic kidney disease Chronic kidney disease stage: on chronic dialysis Qualified Code(s): N18.6 - End stage renal disease; D63.1 - Anemia in chronic kidney disease; Z99.2 - Dependence on renal dialysis (5) Aortic stenosis Cardiac valve disease etiology: etiology unspecified Qualified Code(s): I35.0 - Nonrheumatic aortic (valve) stenosis
--- NOTE | 2024-02-07 15:05 | Electrocardiogram Report ---
Test Reason : Blood Pressure : */* mmHG Vent. Rate : 86 BPM Atrial Rate : 86 BPM P-R Int : 272 ms QRS Dur : 138 ms QT Int : 422 ms P-R-T Axes : 94 -36 -22 degrees QTcB Int : 504 ms Sinus rhythm with 1st degree A-V block Left axis deviation Right bundle branch block Abnormal ECG When compared with ECG of 30-Jan-2024 11:00, No significant change was found Confirmed by Andres Agudelo ([id number]) on 02/07/2024 3:05:08 PM Referred By: Confirmed By: Andres Agudelo
[2024-02-07] MEDS: IRON SUCROSE 100 MG in SODIUM CHLORIDE 0.9% 100 ML IV SCH (15:23)
[2024-02-07] MEDS: traMADol HCL 50 MG TABLET PO PRN (18:07)
--- NOTE | 2024-02-07 18:20 | Hospitalist Progress Note ---
Date of Service February 07, 2024 Assessment & Plan (1) (HFpEF) heart failure with preserved ejection fraction: (2) Weakness generalized: (3) Hypothyroidism: (4) Severe aortic stenosis: (5) Elevated troponin I level: (6) ESRD on hemodialysis: (7) Pressure ulcer: (8) Bilateral edema of lower extremity: (9) Clostridioides difficile carrier: (10) GAVE (gastric antral vascular ectasia): (11) Diabetes mellitus type 2 with complications: Plan 83 yo female PMHx HFpEF, severe aortic stenosis, mitral stenosis, ESRD on dialysis TTS, CVA, T2DM, GAVE, anemia is admitted for ongoing and increasing weakness/frailty. #Frailty/Generalized Weakness Pt discharged home 02/04/24 with home health Increasing weakness and failure to thrive 2/2 multiple chronic conditions-ESRD on HD, anemia, severe , deconditioning, pain from sacral wound Likely will need placement after this visit-PT/OT evals ordered #UTI UA abnormal continue ceftriaxone and f/u urine cx #Anemia hgb 9.0, B12, folate recently normal. Transferrin sat only 17% Nephro ordered IV iron #ESRD on HD TTS Underwent HD 02/07/24 Consult to nephrology for HD management apprecaited #HFpEF/Aortic Stenosis-severe,not TAVR candidate Fluid management primarily via dialysis Continue Lasix 80mg BID as pt is making urine Pt has a chronic troponin leak #Pressure Ulcer Chronic sacral pressure ulcer Follows with wound care outpatient Wound care consult placed-pending add tramadol prn pain offload pressure #mood disorder continue sertraline #C diff carrier Given tx ongoing for UTI, add prophylactic PO Vancomycin now and for 7 days after treatment #GAVE Hx of 60+ blood transfusions Continue famotidine and Protonix BID #T2DM Not currently on medical management #Hypothyroidism TSH here normal Continue home levothyroxine #hyperlipidemia continue statin #RLS continue requip DVT prophylaxis: avoid chemical 2/2 GAVE, SCDs Disposition: medically stable for discharge but awaiting rehab placement Admission and Anticipated Discharge Date Admission Date: February 06, 2024 Subjective Pt reports severe pain in her bottom due to her sacral wound. Otherwise no complaints Physical Exam Constitutional: well developed; no acute distress Respiratory: normal respiratory effort Auscultation: + diminished lung sounds (left base) Cardiovascular: RRR, no murmur, no edema Gastrointestinal (Abdomen): normal bowel sounds, soft, nontender, no hepatosplenomegaly Psychiatric: A+Ox3, euthymic affect Results & Data Results & Data Vital Signs (Past 12 Hours) Vital Signs Temp Pulse Pulse BP BP O2 Del Method 02/07/24 15:15 36.4 C L 126/53 L 02/07/24 15:00 83 126/53 L 02/07/24 14:30 82 118/51 L 02/07/24 14:00 82 119/57 L 02/07/24 13:30 77 118/60 02/07/24 13:00 75 134/56 L 02/07/24 12:30 75 149/64 H 02/07/24 12:00 72 138/56 L 02/07/24 11:49 66 133/66 02/07/24 11:38 36.9 C 75 02/07/24 07:15 Room Air PG Care Time/CCT Total # of Minutes Spent Total Time Spent with Patient: Total time spent is greater than 50% in coordination of care (as documented) at patient's floor/unit and/or counseling patient: Coding Level of Care Code 52579 SUB INP/OBS CARE 2/35MIN Diagnoses Chronic heart failure with preserved ejection fraction I50.32 Heart failure chronicity: chronic Weakness generalized R53.1 Hypothyroidism, unspecified type E03.9 Hypothyroidism type: unspecified Severe aortic stenosis I35.0 Elevated troponin I level R79.89 ESRD on hemodialysis N18.6; Z99.2 Pressure injury of sacral region, unstageable L89.150 Pressure injury location: sacral region Pressure injury stage: unstageable Bilateral edema of lower extremity R60.0 Clostridioides difficile carrier Z22.1 GAVE (gastric antral vascular ectasia) K31.819 Diabetes mellitus type 2 with complications E11.8 (1) (HFpEF) heart failure with preserved ejection fraction Heart failure chronicity: chronic Qualified Code(s): I50.32 - Chronic diastolic (congestive) heart failure (3) Hypothyroidism Hypothyroidism type: unspecified Qualified Code(s): E03.9 - Hypothyroidism, unspecified (7) Pressure ulcer Pressure injury location: sacral region Pressure injury stage: unstageable Qualified Code(s): L89.150 - Pressure ulcer of sacral region, unstageable
[2024-02-08 06:09] LABS: Basophils # (auto) 0.04 K/uL (0.00-0.20); Basophils % (auto) 0.6 %; Eosinophils # (auto) 0.04 K/uL (0.00-0.50); Eosinophils % (auto) 0.6 %; Hematocrit (blood only) 28.2 % (37.0-47.0); Hemoglobin 8.8 g/dl (12.0-16.0); Immature Granulocytes # (auto) 0.04 K/uL (0.01-0.20); Immature Granulocytes % (auto) 0.6 %; Lymphocytes # (auto) 0.46 K/uL (1.20-3.40); Lymphocytes % (auto) 6.9 %; Mean Corpuscular Hemoglobin 28.4 pg (25.0-34.0); Mean Corpuscular Hgb Conc 31.2 g/dL (32.0-36.0); Mean Platelet Volume 11.1 fL (9.4-12.4); Monocytes # (auto) 0.65 K/uL (0.11-0.59); Monocytes % (auto) 9.7 %; Neutrophils # (auto) 5.48 K/uL (1.40-6.50); Neutrophils % (auto) 81.6 %; Platelet Count 199 K/uL (130-400); RDW Coefficient of Variation 19.9 % (11.5-14.5); White Blood Count 6.71 K/ul (4.8-10.8)
[2024-02-08 06:19] LABS: BUN Creatinine Ratio 9.6 (10-20); Calcium 7.7 mg/dl (8.6-10.3); Creatinine Clr Calc Pharmacy 11.4 ml/min; Potassium 3.6 mmol/L (3.5-5.1)
[2024-02-08 07:24] VITALS: BP 114/63; PULSE 75; RESP 16; TEMP 98.2; O2SAT 97
--- NOTE | 2024-02-08 09:23 | Nephrology Progress Note ---
Date of Service February 08, 2024 Assessment & Plan (1) ESRD on hemodialysis: Plan: ESKD due to CRS (severe ). Outpatient HD: [facility], 3hr, 3K 2.5Ca F-180NR, EDW 58 kg. Heparin free HD. Completed HD yesterday with adequate UF and clearance. Tolerated treatment well. Next HD planned for tomorrow. TDC functioning well. Maintain 1.2 L daily fluid restriction. Sevelamer QAC. Medications are appropriately dosed for IHD. (2) Anemia: Plan: Venofer provided with HD yesterday for KOREY. (3) GAVE (gastric antral vascular ectasia): Plan: Heparin free HD. Dandicke denies melena or hematochezia. H/H stable. (4) Atrial fibrillation, permanent: (5) Aortic stenosis: (6) Frailty syndrome in geriatric patient: Plan: Multiple recent hospitalizations. Complex medical history. Concerning progressive frailty. Goals of care discussions are ongoing. Admission and Anticipated Discharge Date Admission Date: February 06, 2024 Subjective No acute events overnight. Tolerated HD reasonably well yesterday. No complaints this AM. Review of Systems Review of Systems: All systems reviewed & are unremarkable except as noted in HPI & below Physical Exam Constitutional: + thin and + frail appearing Eyes: PERRL, conjunctivae normal, anicteric sclerae + anicteric sclerae ENMT: external ear and nose normal, oropharynx normal Neck: normal visual inspection and trachea midline Respiratory: no respiratory distress Auscultation: lungs clear to auscultation bilaterally Cardiovascular: Rate/Rhythm: regular rate and regular rhythm Heart Sounds: normal S1, normal S2 and + murmur Extremities: no edema Musculoskeletal: Extremities: no cyanosis and no clubbing Skin: no jaundice Neurologic: Motor/Sensory: no tremor and no asterixis Psychiatric: Orientation: alert and oriented x 3 Results & Data Vital Signs (Past 12 Hours) Vital Signs Temp Pulse Resp BP Pulse Ox O2 Del Method 02/08/24 07:23 36.8 C 75 16 114/63 97 Room Air 02/07/24 21:35 Room Air Laboratory Results Laboratory Results - last 24 hr 02/08/24 05:19 WBC 6.71 RBC 3.10 L Hgb 8.8 L Hct 28.2 L MCV 91.0 MCH 28.4 MCHC 31.2 L RDW Std Deviation 67.0 H RDW Coeff of Irasema 19.9 H Plt Count 199 MPV 11.1 Immature Gran % (Auto) 0.6 Neut % (Auto) 81.6 Lymph % (Auto) 6.9 Owen % (Auto) 9.7 Eos % (Auto) 0.6 Baso % (Auto) 0.6 Neut # (Auto) 5.48 Lymph # (Auto) 0.46 L Owen # (Auto) 0.65 H Eos # (Auto) 0.04 Baso # (Auto) 0.04 Immature Gran # (Auto) 0.04 Sodium 137 Potassium 3.6 Chloride 101 Carbon Dioxide 26 Anion Gap 10 BUN 26 H Creatinine 2.70 H D Est Cr Clr Drug Dosing 11.4 eGFR 16.76 BUN/Creatinine Ratio 9.6 L Glucose 133 H Calcium 7.7 L PG Care Time/CCT Total # of Minutes Spent Total Time Spent with Patient: Total time spent is greater than 50% in coordination of care (as documented) at patient's floor/unit and/or counseling patient: Coding Level of Care Code 55513 SUB INP/OBS CARE 3/50MIN Diagnoses ESRD on hemodialysis N18.6; Z99.2 Anemia due to chronic kidney disease, on chronic dialysis N18.6; D63.1; Z99.2 Anemia type: due to chronic kidney disease Chronic kidney disease stage: on chronic dialysis GAVE (gastric antral vascular ectasia) K31.819 Atrial fibrillation, permanent I48.21 Aortic valve stenosis, etiology of cardiac valve disease unspecified I35.0 Cardiac valve disease etiology: etiology unspecified Frailty syndrome in geriatric patient R54 (2) Anemia Anemia type: due to chronic kidney disease Chronic kidney disease stage: on chronic dialysis Qualified Code(s): N18.6 - End stage renal disease; D63.1 - Anemia in chronic kidney disease; Z99.2 - Dependence on renal dialysis (5) Aortic stenosis Cardiac valve disease etiology: etiology unspecified Qualified Code(s): I35.0 - Nonrheumatic aortic (valve) stenosis
--- NOTE | 2024-02-08 12:25 | Discharge Summary ---
Discharge Summary Date of Service February 08, 2024 Principal Dx & Hospital Course #1 = Principal Diagnosis (1) Weakness generalized: (2) UTI (urinary tract infection): (3) (HFpEF) heart failure with preserved ejection fraction: (4) Elevated troponin I level: (5) Pressure ulcer: (6) ESRD on hemodialysis: Plan 83 yo female PMHx HFpEF, severe aortic stenosis, mitral stenosis, ESRD on dialysis TTS, CVA, T2DM, GAVE, anemia is admitted for ongoing and increasing weakness/frailty. #Frailty/Generalized Weakness Pt discharged home 02/04/24 with home health Increasing weakness and failure to thrive 2/2 multiple chronic conditions-ESRD on HD, anemia, severe , deconditioning, pain from sacral wound Likely will need placement after this visit-PT/OT evals ordered #UTI UA abnormal, Ur cx with Proteus mirabilis and E. coli, sensitivities pending but past cultures reviewed and cefdinir should be adequate-finish out 7 day course of renally dosed cefdinir every other day received 2 doses IV ceftriaxone #Anemia hgb 9.0, B12, folate recently normal. Transferrin sat only 17% Nephro ordered IV iron follow BCC as outpt, has a h/o chronic GIB from GAVE #ESRD on HD TTS Underwent HD 02/07/24 Consult to nephrology for HD management appreciated #HFpEF/Aortic Stenosis-severe,not TAVR candidate Fluid management primarily via dialysis Continue Lasix 80mg BID as pt is making urine Pt has a chronic troponin leak-not myocardial demand ischemia but from poor renal clearance #Pressure Ulcer Chronic sacral pressure ulcer Follows with wound care outpatient Wound care consult appreciated continue tramadol prn pain offload pressure #mood disorder continue sertraline #C diff carrier Given tx ongoing for UTI, add prophylactic PO Vancomycin now and for 7 days after treatment #GAVE Hx of 60+ blood transfusions Continue famotidine and Protonix BID #T2DM Not currently on medical management #Hypothyroidism TSH here normal Continue home levothyroxine #hyperlipidemia continue statin #RLS continue requip DVT prophylaxis: avoid chemical 2/2 GAVE, SCDs Disposition: medically stable for discharge to [facility] Notes For Next Care Provider Follow CBC and BMP routinely as outpt Medication Changes From Visit Added cefdinir 300mg every other day x 3 more doses Admission HPI Per Admitting Provider 83 yo female PMHx HFpEF, severe aortic stenosis, mitral stenosis, ESRD on dialysis TTS, CVA, T2DM, GAVE is admitted for ongoing and increasing weakness/frailty. She was previously discharged 02/04/24 to home after a hospital stay for CHF exacerbation. At that time PT/OT recommended rehab but patient was discharged to home with home health. Today home health visited patient and observed that she was weak and unable to adequately care for herself and EMS was called. Patient reports that she is having difficulty ambulating at this time and that her legs feel heavy. She did have dialysis yesterday. Patient denies CP, SOB, abdominal pain, nausea, vomiting, changes in bowel or bladder habits. Discharge Exam Constitutional WD/WN, vitals as above Respiratory normal respiratory effort, lungs clear to auscultation Cardiovascular Rate/Rhythm: regular rate and regular rhythm Heart Sounds: + murmur (3/6 YAW at RUSB) Extremities: + edema (trace edema) Psychiatric A+Ox3, euthymic affect Discharge Plan Discharge Items Patient Disposition: Transfer Inpatient Rehab Fac Reason For Visit: WEAKNESS Discharge Diagnosis: Generalized weakness UTI Sacral decubitus ulcer Condition on Discharge: Fair Activity: As commented below Lifting: Gradually increase as tolerated Exercise/Sports: Gradually increase as tolerated Non-emergency contact: Primary Care Provider Call non-emergency contact if: you have any medication questions, your symptoms worsen and your pain is not controlled Follow-up/Referrals: Agatha Alfaro, [Primary Care Provider] - Diet: Dialysis Renal Fluids: 1200ml (5 cups) Addtl Attending Provider Instructions: Please finish out 5 more days of the antibiotic called cefdinir 300mg every other day for your UTI. Continue your usual dialysis schedule. Continue wound care and offloading pressure of your sacral wound. Pain control with tramadol as needed. Pending Studies at Discharge: Yes (Final urine culture-Proteus and E.coli,sensitivities pending) Stand-Alone Forms: My [facility] Skilled Items Patient informed of condition?: Yes DNR: Yes Discharge Level of Care: Acute rehab Communicable Disease: No Discharge Prognosis: Improving Lines: None Urinary Catheter: No Medications and DC Order Prescriptions: New cefdinir 300 mg capsule 300 mg PO Q2D Qty: 3 0RF Rx Instructions: Take on evening of 12/6,128, and 02/11 Continued (DME) Fitted Briefs X-Large Misc See Rx Instructions .Route Qty: 150 5RF Rx Instructions: using 4-5 per day R19.7 triamcinolone acetonide 0.5 % cream 1 applic topical BID PRN (Reason: skin irritation) Qty: 60 1RF tramadol 50 mg tablet 50 mg PO BID PRN (Reason: Pain) Qty: 60 0RF sertraline 50 mg tablet 50 mg PO DAILY Qty: 30 2RF methocarbamol 500 mg tablet 500 mg PO TID PRN (Reason: muscle spasm) Qty: 90 1RF ropinirole 0.5 mg tablet 0.5 mg PO UD Qty: 90 1RF Rx Instructions: Take 0.5mg by mouth in the morning; then take 1.5mg by mouth at bedtime clopidogrel [Plavix] 75 mg tablet 75 mg PO DAILY Qty: 90 1RF fluticasone propionate [Flonase Allergy Relief] 50 mcg/actuation spray,suspension 1 spray intranasal DAILY Qty: 16 2RF Rx Instructions: Unable to verify OTC meds at this date/time. nystatin 100,000 unit/gram powder 1 applic TOPICAL BID PRN (Reason: IRRITATION) Qty: 60 0RF cholecalciferol (vitamin D3) [Vitamin D3] 1,000 unit Capsule 2,000 unit PO QAM Rx Instructions: Unable to verify OTC meds at this date/time. estradiol 0.01 % (0.1 mg/gram) cream 1 applic VAGINAL 3XWK PRN (Reason: ONLY WHEN BURNING) cyanocobalamin (vitamin B-12) [Vitamin B-12] 1,000 mcg tablet 1,000 mcg PO QAM Rx Instructions: Unable to verify OTC meds at this date/time. Cavilon Durable Barrier 1.3 % cream 1 applic topical DAILY PRN (Reason: skin irritation) Rx Instructions: as needed for skin protection mv,Ca,min-folic acid-vit K1 400-20 mcg Tablet 1 tab PO DAILY Rx Instructions: Unable to verify OTC meds at this date/time. loperamide 2 mg Capsule 2 mg PO Q6H PRN (Reason: Diarrhea) Qty: 0 0RF Rx Instructions: Unable to verify OTC meds at this date/time. Administer after each loose stool until symptoms controlled; do not exceed 8 mg per 24 hrs calcium carbonate-vitamin D3 [Calcium 600 + D(3)] 600 mg-10 mcg (400 unit) Tablet 1 tab PO DAILY Rx Instructions: Unable to verify OTC meds at this date/time. omega-3 fatty acids 1,000 mg Capsule 1,000 mg PO DAILY Rx Instructions: Unable to verify OTC meds at this date/time. levothyroxine 150 mcg tablet 150 mcg PO QAM sevelamer carbonate 800 mg tablet 800 mg PO TIDWMEAL Metamucil 3.4 gram/5.4 gram powder 1 tbsp PO DAILY Qty: 660 0RF Rx Instructions: Unable to verify OTC meds at this date/time. Mix into at least 8 oz of water or juice before administering. atorvastatin 40 mg tablet 0 mg PO DAILY Rx Instructions: Last filled 12/18/23 x30 day supply. Original Directions: 40mg by mouth daily famotidine 40 mg tablet 0 mg PO BID Rx Instructions: Last filled 11/18/23 x30 day supply. Original Directions: 40mg by mouth twice daily furosemide 80 mg tablet 0 mg PO BID Rx Instructions: Last filled 08/2023 x90 day supply. Original Directions: 80mg by mouth twice daily pantoprazole 40 mg tablet,delayed release (DR/EC) 0 mg PO BID Rx Instructions: Last filled 11/16/23 x30 day supply. Original Directions: 40mg by mouth twice daily bethanechol chloride 50 mg tablet 0 mg PO BID Rx Instructions: Last filled 09/2023 x90 day supply. Original Directions: 50mg by mouth twice daily vancomycin 125 mg Capsule 125 mg PO UD Qty: 12 0RF Rx Instructions: Unable to verify med at this date/time. Original Directions: Take 125mg qid x 10 days; 125mg bid x 7 days; 124mg daily x 7 days; then 125mg q 2-3 days for 2-8 weeks. Discharge Orders: Discharge Order (Routine); Ordered 02/08/24 Ordered By: Rylee Stanford Admission Data Admit Date/Time: 02/06/24 19:53 Attending Provider: Rylee Stanford Admit Provider: Kareem Terrell Primary Care Provider: Agatha Alfaro Other Providers: Jhon Beck; Luke Villarreal Other Interventions: Discharge Summary Assessment (RN) Last Done: 02/08/24 12:02 Hospital Stay Data Consultations 02/06/24 19:20 ED Decision to Admit Stat 02/06/24 23:05 Consult Nephrology Routine Pending Results Patient Have Any Pending Studies at Discharge: Yes (Final urine culture-Proteus and E.coli,sensitivities pending) Discharge Instructions Given to Patient (Per Discharging Provider) Please finish out 5 more days of the antibiotic called cefdinir 300mg every other day for your UTI. Continue your usual dialysis schedule. Continue wound care and offloading pressure of your sacral wound. Pain control with tramadol as needed. Total Time Total Time Spent Total Time Spent (In Minutes): 35 min Total Time Includes: Examination of the Patient, Discharge Planning and Medication Reconciliation Coding Level of Care Code 97237 INP/OBS DISCH >30 MIN Diagnoses Weakness generalized R53.1 UTI (urinary tract infection) N39.0 Chronic heart failure with preserved ejection fraction I50.32 Heart failure chronicity: chronic Elevated troponin I level R79.89 Pressure injury of sacral region, unstageable L89.150 Pressure injury location: sacral region Pressure injury stage: unstageable ESRD on hemodialysis N18.6; Z99.2
[2024-02-08 12:46] LABS: Hep B Surface Ag with confirm Negative (Negative)
[2024-02-08 12:55] LABS: Hepatitis B Surface Antibody Immune
== END 2024-02-08 16:06 | DRG 884 ==
LOC: ED 17:11 → SUATTDRO 19:53 → 3E 19:53